=== PATIENT | female | born 1965 | race Caucasian/White ===

== ENCOUNTER → 2021-05-15 14:15 | Outpatient (BNVA) | payer MEDICAID, SELFPAY | PROVIDERS: PCP Family Medicine | DX: R33.9 Retention of urine, unspecified (principal); N31.2 Flaccid neuropathic bladder, not elsewhere classified; E78.5 Hyperlipidemia, unspecified; I10 Essential (primary) hypertension | CPT/HCPCS: 51798; 99212 ==

== ENCOUNTER 2021-11-14 09:40 | Outpatient (REF) | payer MEDICAID, SELFPAY | END 2021-11-14 09:41 | disposition home or self-care (01) | LOC: HO.HOSX 09:40 | PROVIDERS: Visit Provider Orthopaedic Surgery | DX: Z13.89 Encounter for screening for other disorder (principal) ==

== ENCOUNTER → 2021-11-18 09:02 | Outpatient (BNVA) | payer MEDICAID, SELFPAY | PROVIDERS: PCP Family Medicine ==

== ENCOUNTER → 2021-11-25 11:28 | Outpatient (BNVA) | payer MEDICAID, SELFPAY | PROVIDERS: PCP Family Medicine; Visit Provider Surgery Vascular Surgery | DX: I73.9 Peripheral vascular disease, unspecified (principal) | CPT/HCPCS: 99202 ==

== ENCOUNTER 2021-12-11 08:37 | Outpatient (REF) | payer MEDICAID, SELFPAY ==
--- NOTE | ~2021-12-11 | XR_ITS ---
EXAMINATION: XR KNEE AP STANDING VIEW BILATERAL. XR KNEE, BILATERAL. CLINICAL INFORMATION: Bilateral knee pain COMPARISON: None TECHNIQUE: AP standing view both knees. [place] and tunnel views of each knee. FINDINGS: Symmetric mild to moderate tricompartmental osteoarthritis with marginal osteophytes. No significant joint effusion. No acute osseous abnormality. XR/XR knee LT 2V IMPRESSION: Symmetric bilateral mild to moderate tricompartmental osteoarthritis with marginal osteophytes. No acute osseous abnormality.
--- NOTE | ~2021-12-11 | XR_ITS ---
EXAMINATION: XR KNEE AP STANDING VIEW BILATERAL. XR KNEE, BILATERAL. CLINICAL INFORMATION: Bilateral knee pain COMPARISON: None TECHNIQUE: AP standing view both knees. [place] and tunnel views of each knee. FINDINGS: Symmetric mild to moderate tricompartmental osteoarthritis with marginal osteophytes. No significant joint effusion. No acute osseous abnormality. XR/XR knee standing BI IMPRESSION: Symmetric bilateral mild to moderate tricompartmental osteoarthritis with marginal osteophytes. No acute osseous abnormality.
--- NOTE | ~2021-12-11 | XR_ITS ---
EXAMINATION: XR KNEE AP STANDING VIEW BILATERAL. XR KNEE, BILATERAL. CLINICAL INFORMATION: Bilateral knee pain COMPARISON: None TECHNIQUE: AP standing view both knees. [place] and tunnel views of each knee. FINDINGS: Symmetric mild to moderate tricompartmental osteoarthritis with marginal osteophytes. No significant joint effusion. No acute osseous abnormality. XR/XR knee RT 2V IMPRESSION: Symmetric bilateral mild to moderate tricompartmental osteoarthritis with marginal osteophytes. No acute osseous abnormality.
== END 2021-12-11 08:38 | disposition home or self-care (01) ==
LOC: HO.HOSX 08:37
PROVIDERS: Visit Provider Orthopaedic Surgery
DX: M17.11 Unilateral primary osteoarthritis, right knee (principal)
CPT/HCPCS: 20610; 73560; 73565; 99202; J1100

== ENCOUNTER 2022-06-04 13:13 | Outpatient (REF) | payer MEDICAID, SELFPAY ==
--- NOTE | ~2022-06-04 | CT_ITS ---
EXAMINATION: CT CHEST WITHOUT CONTRAST CLINICAL INFORMATION: Follow-up right middle lobe nodules COMPARISON: Previous chest x-ray May 2020 TECHNIQUE: Multidetector volumetric CT imaging of the chest was done. Axial MIP volume rendering provided. Sagittal and coronal reformatted images were obtained. This CT examination was performed using dose optimization techniques as appropriate, variously including the following: *Automated exposure control *Adjustment of mA and/or kV according to patient size (this includes techniques or standardized protocols for targeted exams where dose is matched to indication/reason for exam; i.e. extremities or head) *Use of iterative reconstruction technique DLP: 241 mGy-cm FINDINGS: LUNGS: There is a 2 mm right upper lobe nodule axial image 160 series 7. There is a 3 mm calcified left lower lobe nodule axial image 193 series 7. There is a 3 mm right upper lobe nodule axial image 195 series 7. There is a 4 mm right middle lobe nodule axial image 284 series 7. There is a 3 mm right lower lobe calcified nodule axial image 327 series 7. There is a 3 mm peripheral or subpleural left lower lobe nodule axial image 398 series 7. There is minimal linear scarring or subsegmental atelectasis in the right middle lobe and left upper lobe. No endobronchial or endotracheal lesion. MEDIASTINUM: There is coronary artery calcification. The ascending thoracic aorta is upper normal in size measuring 4 cm. The mediastinum is otherwise normal. PLEURA: There is no pleural effusion. No pleural mass or thickening. AXILLA: No lymphadenopathy. UPPER ABDOMEN: There is diverticulosis of the colon. OSSEOUS STRUCTURES: There are degenerative changes of the spine. CT/CT chest wo con IMPRESSION: Small pulmonary nodules or micronodules, largest measuring 4 mm in the right middle lobe. According to the UPDATED 2017 Fleischner Society recommendations, the advised follow-up imaging for less than 6 mm solid nodule: Low risk, no chest CT follow-up and high risk, optional chest CT follow-up in one year. Coronary artery calcification and upper normal-size ascending thoracic aorta. Fleischner guidelines were followed.
== END 2022-06-04 13:14 | disposition home or self-care (01) ==
LOC: HO.CT 13:13
PROVIDERS: PCP Family Medicine; Visit Provider Family Medicine
DX: R91.1 Solitary pulmonary nodule (principal); I25.10 Atherosclerotic heart disease of native coronary artery without angina pectoris; K57.30 Diverticulosis of large intestine without perforation or abscess without bleeding
CPT/HCPCS: 71250

== ENCOUNTER 2022-09-05 23:59 | Emergency (ER) | payer MEDICAID, SELFPAY ==
[2022-09-06 00:12] VITALS: BP 180/100; BP 189/125; PULSE 80; PULSE 81; RESP 18; TEMP 36.8; O2SAT 94; O2SAT 96; BMI 35.4
[2022-09-06 00:19] VITALS: BP 189/125; PULSE 80; RESP 18; TEMP 36.8; O2SAT 94
--- OUTSIDE RECORDS SUMMARY | 2022-09-06 00:42 | XMS_ITS | Continuity of Care Document ---
:1965 Author Organization [facility] Address [address] [place] [phone]- Care Team Providers Name Role Phone Aliza Paul DO Primary Care Physician [place] [facility] [place] - 02/24/[address] [address]- Encounter Diagnosis Chest pain (Final) - 02/24/21 HTN (hypertension) (Final) - 02/24/21 Bradycardia (Final) - 02/24/21 Discharge Disposition: A-D/C AMA Attending Physician: Florencio Oleary MD Admitting Physician: Florencio Oleary MD Referring Physician: Not on Staff, Referring MD Allergies, Adverse Reactions, Alerts Substance Reaction Severity Status NKA Active Medications amitriptyline 25 mg oral tablet 1 tablet = 25 mg, By Mouth, Daily at bedtime, 0 Refills, Maintenance Start Date: 08/23/13 Status: OrderedFioricet Tablet 2 tablet, By Mouth, Every 4 hours, 0 Refills, Maintenance Start Date: 08/23/13 Status: OrderedFlexeril Tablet Maintenance, 08/23/13 8:12:57 Start Date: 08/23/13 Status: OrderedHydrochlorothiazide By Mouth, Daily, 0 Refills, Maintenance Start Date: 08/23/13 Status: Orderedibuprofen 600 mg oral tablet 1 tablet = 600 mg, By Mouth, 4 times a day, PRN Pain, # 40 tablet, 0 Refills, Maintenance, Tablet Start Date: 09/04/13 Status: OrderedKlonoPIN 1 mg oral tablet 1 tablet = 1 mg, By Mouth, 2 times a day, 0 Refills, Maintenance, 02/24/21 14:18:00 EDT, Tablet, Partial fill upon patient request if the prescription is for a schedule II opioid drug. Start Date: 02/24/21 Status: OrderedLisinopril By Mouth, Daily, 0 Refills, Maintenance Start Date: 08/23/13 Status: OrderedMetoprolol Tartrate 50 mg oral tablet 1 tablet = 50 mg, By Mouth, 2 times a day, # 60 tablet, 0 Refills, Maintenance, Tablet Start Date: 08/23/13 Status: OrderedNorvasc By Mouth, Daily, 0 Refills, Maintenance Start Date: 08/23/13 Status: Orderedoxycodone 5 mg oral tablet 1 tablet = 5 mg, By Mouth, Every 6 hours, PRN for pain, # 10 tablet, 0 Refills, Maintenance, Tablet Start Date: 09/27/13 Status: Orderedoxycodone 5 mg oral tablet 1 tablet = 5 mg, By Mouth, Every 4 hours, PRN for pain, # 12 tablet, 0 Refills, Maintenance, Tablet Start Date: 09/04/13 Status: Orderedoxycodone 5 mg oral tablet 1 tablet = 5 mg, By Mouth, Every 4 hours, PRN for pain, # 30 tablet, 0 Refills, Maintenance, Tablet Start Date: 09/18/13 Status: Orderedoxycodone 5 mg oral tablet 2 tablet = 10 mg, By Mouth, Every 4 hours, PRN for pain, # 15 tablet, 0 Refills, Maintenance, Tablet Start Date: 09/08/13 Status: OrderedPaxil 20 mg oral tablet 1 tablet = 20 mg, By Mouth, Daily, 0 Refills, Maintenance Start Date: 08/23/13 Status: OrderedProtonix 40 mg oral delayed release tablet 1 tablet = 40 mg, By Mouth, Daily, 0 Refills, Maintenance Start Date: 08/23/13 Status: OrderedTopamax 50 mg oral tablet 1 tablet = 50 mg, By Mouth, Daily at bedtime, # 30 tablet, 4 Refills, Maintenance, 10/08/17 12:16:01, starting for migraine Start Date: 10/08/17 Stop Date: 03/07/18 Status: OrderedTrazodone By Mouth, 0 Refills, Maintenance Start Date: 08/23/13 Status: OrderedVicodin 5 mg-300 mg oral tablet 1 tablet, By Mouth, Every 6 hours, 0 Refills, Maintenance Start Date: 08/23/13 Status: OrderedVistaril Capsule 0 Refills, Maintenance Start Date: 08/23/13 Status: OrderedXanax Tablet By Mouth, 3 times a day, PRN, Maintenance, as needed for anxiety, 08/23/13 8:38:27 Start Date: 08/23/13 Status: OrderedZofran 4 mg oral tablet 1 tablet = 4 mg, By Mouth, Every 8 hours, # 9 tablet, 0 Refills, Maintenance, 12/26/20 16:59:00 EST,Tablet, [facility], Partial fill upon patient request if the prescription is for a schedule II opioid drug. Start Date: 12/26/20 Stop Date: 12/29/20 Status: Ordered Problem List Condition Effective Dates Status Health Status Informant Anxiety(Confirmed) Active Cerebrovascular disease(Confirmed) Active Gastroesophageal reflux Active disease(Confirmed) Heart disease(Confirmed) Active Hyperlipidemia(Confirmed) Active Hypertensive disorder(Confirmed) Active Migraines(Confirmed) Active Results Radiology Reports Exam Date Time Procedure Performing Provider Status 02/24/21 7:46 AM Chest Portable E[place]barger Anette; Auth (Ike ified) Notes:(Chest Portable) Reason For Exam: Shortness of BreathRESULT: Chest Portable Chest Portable Hx of Present Illness: Pt c o chest tightness, 7 10 with elevated HR at home 220 110 pt reports she hasn't slept in 3 days, caring for her sick mother for last 6 months. Pt also reports headache; Reason: Shortness of Breath; Clinical Question(s): CHF COMPARISON: Chest radiograph dated 09/04/2013 FINDINGS: LINES AND TUBES: None. LUNGS AND PLEURA: Hazy opacities at the right lung base. No pleural effusion. No pneumothorax. HEART, MEDIASTINUM AND CHARO: Heart is at the upper limits of normal for size. Normal upper mediastinal and hilar contour. BONES AND SOFT TISSUES: No acute abnormality. IMPRESSION: Hazy right basilar airspace disease, atelectasis versus pneumonia. WSN: [id number] Ordering Physician: Timoteo Taveras Dictated By: Mona Ponce MD Dictated Date/Time: 02/24/21 8:01 am Reviewed By: Mona Ponce MD Signed By: Mona Ponce MD Signed Date/Time: 02/24/21 8:01 am Transcribed By: SHERON Transcribed Date/Time: 02/24/21 8:01 am Vital Signs Most recent to oldest 1 2 3 [Reference Range]: Height 160 cm (02/24/21 1:49 PM) Weight 93.2 kg (02/24/21 1:49 PM) Oxygen Saturation [94-100 %] 99 % 97 % 97 % (02/24/21 1:55 PM) (02/24/21 11:30 AM) (02/24/21 9: 44 AM) Pulse Rate [55-90 bpm] 49 bpm 49 bpm 50 bpm *L* *L* *L* (02/24/21 1:55 PM) (02/24/21 11:30 AM) (02/24/21 9: 44 AM) Body Mass Index [18.5-24.99] 36.41 *>HHI* (02/24/21 1:49 PM) Blood Pressure [90-138/55-84 186/87 mm Hg 149/76 mm Hg 149 /74 mm Hg mm Hg] *H* *H* *H* (02/24/21 1:55 PM) (02/24/21 11:30 AM) (02/24/21 9: 44 AM) Respiratory Rate [16-30 18 br/min 18 br/min 14 br/mi n br/min] (02/24/21 1:55 PM) (02/24/21 11:30 AM) *L* (02/24/21 9:44 AM ) Temperature [96.8-100.4 DegF] 98.2 DegF 97.8 DegF (02/24/21 1:55 PM) (02/24/21 6:58 AM) Mode of Delivery (Oxygen) Room air Room air Room a ir (02/24/21 1:55 PM) (02/24/21 11:30 AM) (02/24/21 9: 44 AM) Blood pressure sites Arm, right Arm, right Arm, right (02/24/21 1:55 PM) (02/24/21 11:30 AM) (02/24/21 9: 44 AM) Temperature Route Oral Oral (02/24/21 1:55 PM) (02/24/21 6:58 AM) Dry Weight 93.2 kg (02/24/21 1:49 PM) Weight Obtained Via Bed scale (02/24/21 1:49 PM) Social History Social History Type Response Smoking Status Never (less than 100 in life time) entered on: 12/26/20 Sex
--- OUTSIDE RECORDS SUMMARY | 2022-09-06 00:42 | XMS_ITS | Continuity of Care Document ---
:1965 Author Organization [facility] Address [address] [place] [phone]- Care Team Providers Name Role Phone Aliza Paul DO Primary Care Physician Encounter [facility] [place] Date(s): 09/20/21 - 09/20/[address] [address]- Discharge Disposition: A-D/C Walkout Attending Physician: Not on Staff, Attending MD Admitting Physician: Not on Staff, Admitting MD Referring Physician: Not on Staff, Referring [...] tablet, 0 Refills, Maintenance, 12/26/20 16:59:00 EST,Tablet, [facility], Partial fill upon patient request if the prescription is for a schedule II opioid drug. Start Date: 12/26/20 Stop Date: 12/29/20 Status: Ordered Problem List Condition Effective Dates Status Health Status Informant Anxiety(Confirmed) Active Cerebrovascular disease(Confirmed) Active Gastroesophageal reflux Active disease(Confirmed) Heart disease(Confirmed) Active Hyperlipidemia(Confirmed) Active Hypertensive disorder(Confirmed) Active Migraines(Confirmed) Active Vital Signs Most recent to oldest [Reference Range]: 1 Oxygen Saturation [94-100 %] 95 % (09/20/21 10:37 AM) Pulse Rate [55-90 bpm] 57 bpm (09/20/21 10:37 AM) Blood Pressure [90-138/55-84 mm Hg] 157/82 mm Hg *H* (09/20/21 10:37 AM) Respiratory Rate [16-30 br/min] 20 br/min (09/20/21 10:37 AM) Temperature [96.8-100.4 DegF] 98.5 DegF (09/20/21 10:37 AM) Mode of Delivery (Oxygen) Room air (09/20/21 10:37 AM) Blood pressure sites Arm, left (09/20/21 10:37 AM) Temperature Route Oral (09/20/21 10:37 AM) Social History Social History Type Response Smoking Status Never (less than 100 in life time) entered on: 12/26/20 Sex
--- OUTSIDE RECORDS SUMMARY | 2022-09-06 00:42 | XMS_ITS | Continuity of Care Document ---
:1965 Author Organization [facility] Address [address] [place] [phone]- Care Team Providers Name Role Phone Aliza Paul DO Primary Care Physician [place] [facility] [place] - 05/03/[address] [address]- Encounter Diagnosis Submandibular gland inflammation (Final) - 05/03/22 Discharge Disposition: A-D/C Home Attending Physician: Madeline Greene MD Admitting Physician: Madeline Greene MD Referring Physician: Not on Staff, Referring MD Allergies, Adverse Reactions, Alerts No Known Allergies Medications amitriptyline 25 mg oral tablet 1 tablet = 25 mg, By Mouth, Daily at bedtime, 0 Refills, Maintenance Start Date: 08/23/13 Status: OrderedAugmentin 875 mg-125 mg oral tablet 1 tablet, By Mouth, Every 12 hours, for 7 days, # 14 tablet, 0 Refills, Acute 05/10/22 20:12:00 EDT,05/03/22 20:12:00 EDT, Tablet, [facility], Partial fill upon patient request ifthe prescription is for a schedule II opioid drug... Start Date: 05/03/22 Stop Date: 05/10/22 Status: OrderedFioricet Tablet 2 tablet, By Mouth, [...] Refills, Maintenance, Tablet Start Date: 09/04/13 Status: Orderedibuprofen 600 mg oral tablet 600 mg, 1, tablet, By Mouth, 3 times a day, # 90 tablet, Refills 0, Tot. Refills 0, Acute 05/04/23 21:12:00 EDT, 05/03/22 21:11:00 EDT, Route to Pharmacy Electronically, [facility], Partial fill upon patient request if the prescri... Start Date: 05/03/22 Stop Date: 05/04/23 Status: OrderedKlonoPIN 1 mg oral tablet 1 [...] Refills, Maintenance, Tablet Start Date: 09/08/13 Status: OrderedoxyCODONE 5 mg oral tablet 5 mg, Tablet, By Mouth, Every 6 hours, PRN for Pain , Moderate, Routine, 05/03/22 18:54:00 EDT Start Date: 05/03/22 Stop Date: 05/10/22 Status: OrderedPaxil 20 mg oral tablet 1 [...] tablet, 0 Refills, Maintenance, 12/26/20 16:59:00 EST,Tablet, [facility], Partial fill upon patient request if the prescription is for a schedule II opioid drug. Start Date: 12/26/20 Stop Date: 12/29/20 Status: Ordered Problem List Condition Effective Dates Status Health Status Informant Anxiety(Confirmed) Active Cerebrovascular disease(Confirmed) Active Gastroesophageal reflux Active disease(Confirmed) Heart disease(Confirmed) Active Hyperlipidemia(Confirmed) Active Hypertensive disorder(Confirmed) Active Migraines(Confirmed) Active Obese class II(Confirmed) Active Vital Signs Most recent to oldest 1 2 3 [Reference Range]: Oxygen Saturation [94-100 %] 96 % 96 % 94 % (05/03/22 9:17 PM) (05/03/22 8:46 PM) (05/03/22 7:0 0 PM) Pulse Rate [55-90 bpm] 54 bpm 45 bpm 56 bpm *L* *L* (05/03/22 7:00 PM ) (05/03/22 9:17 PM) (05/03/22 8:46 PM) Blood Pressure [90-138/55-84 mm 136/99 mm Hg 140/101 mm Hg 148/96 mm Hg Hg] (05/03/22 9:17 PM) *H* *H* (05/03/22 8:46 PM) (05/03/22 7:00 PM) Respiratory Rate [16-30 br/min] 18 br/min 20 br/min 18 br/min (05/03/22 9:17 PM) (05/03/22 8:46 PM) (05/03/22 7:5 8 PM) Temperature [96.8-100.4 DegF] 97.9 DegF 97.8 DegF 98 .9 DegF (05/03/22 8:46 PM) (05/03/22 7:00 PM) (05/03/22 3:4 8 PM) Mode of Delivery (Oxygen) Room air Room air Room a ir (05/03/22 9:17 PM) (05/03/22 8:46 PM) (05/03/22 7:0 0 PM) Blood pressure sites Arm, right Arm, right Arm, left (05/03/22 9:17 PM) (05/03/22 8:46 PM) (05/03/22 7:0 0 PM) Temperature Route Oral Oral Oral (05/03/22 8:46 PM) (05/03/22 7:00 PM) (05/03/22 3:4 8 PM) Social History Social History Type Response Smoking Status Never (less than 100 in life time) entered on: 12/26/20 Sex
--- OUTSIDE RECORDS SUMMARY | 2022-09-06 00:42 | XMS_ITS | Continuity of Care Document ---
:1965 Author Organization [facility] Address [address] [place] [phone]- Care Team Providers Name Role Phone Aliza Paul DO Primary Care Physician En[place] [facility] [place] Date(s): 12/26/20 - 12/26/[address] [address]- Encounter Diagnosis Diverticulitis (Final) - 12/26/20 Discharge Disposition: A-D/C Home Attending Physician: Mary Jackman MD Admitting Physician: Mary Jackman MD Referring Physician: Not on Staff, Referring MD Allergies, Adverse Reactions, Alerts Substance Reaction Severity Status NKA Active Medications amitriptyline 25 mg oral tablet 1 tablet = 25 mg, By Mouth, Daily at bedtime, 0 Refills, Maintenance Start Date: 08/23/13 Status: OrderedCipro 500 mg oral tablet 1 tablet = 500 mg, By Mouth, Every 12 hours, for 10 days, after completed dialysis, # 20 tablet, 0 Refills, Acute 01/05/21 16:58:00 EST, 12/26/20 16:58:00 EST, Tablet, [facility], Partial fill upon patient request if the prescript... Start Date: 12/26/20 Stop Date: 01/05/21 Status: OrderedFioricet Tablet 2 tablet, By Mouth, Every 4 hours, 0 Refills, Maintenance Start Date: 08/23/13 Status: OrderedFlagyl 500 mg oral tablet 1 tablet = 500 mg, By Mouth, 3 times a day, for 10 days, # 30 tablet, 0 Refills, Acute 01/05/21 16:58:00 EST, 12/26/20 16:58:00 EST, Tablet, [facility], Partial fill upon patient request if the prescription is for a schedule II op... Start Date: 12/26/20 Stop Date: 01/05/21 Status: OrderedFlexeril Tablet Maintenance, 08/23/13 8:12:57 Start Date: 08/23/13 Status: OrderedHydrochlorothiazide By Mouth, Daily, 0 Refills, Maintenance Start Date: 08/23/13 Status: Orderedibuprofen 600 mg oral tablet 1 tablet = 600 mg, By Mouth, 4 times a day, PRN Pain, # 40 tablet, 0 Refills, Maintenance, Tablet Start Date: 09/04/13 Status: OrderedLisinopril By Mouth, Daily, 0 Refills, [...] tablet, 0 Refills, Maintenance, 12/26/20 16:59:00 EST,Tablet, [facility], Partial fill upon patient request if [...] 3 [Reference Range]: Oxygen Saturation [94-100 %] 97 % 96 % 95 % (12/26/20 5:11 PM) (12/26/20 4:21 PM) (12/26/20 1:3 8 PM) Pulse Rate [55-90 bpm] 53 bpm 56 bpm 53 bpm *L* (12/26/20 4:21 PM) *L* (12/26/20 5:11 PM) (12/26/20 1:38 PM) Blood Pressure [90-138/55-84 mm 166/85 mm Hg 145/95 mm Hg 131/66 mm Hg Hg] *H* *H* (12/26/20 1:38 PM ) (12/26/20 5:11 PM) (12/26/20 4:21 PM) Respiratory Rate [16-30 br/min] 21 br/min 15 br/min 19 br/min (12/26/20 5:11 PM) *L* (12/26/20 1:38 PM) (12/26/20 4:21 PM) Temperature [96.8-100.4 DegF] 98.1 DegF (12/26/20 9:25 AM) Liters per Minute 0 L/min (12/26/20 8:58 AM) Mode of Delivery (Oxygen) Room air Room air Room a ir (12/26/20 5:11 PM) (12/26/20 4:21 PM) (12/26/20 1:3 8 PM) Blood pressure sites Arm, left Arm, left Arm, left (12/26/20 5:11 PM) (12/26/20 4:21 PM) (12/26/20 1:3 8 PM) Temperature Route Oral (12/26/20 9:25 AM) Social History Social History Type Response Smoking Status Never (less than 100 in life time) entered on: 12/26/20 Sex
--- NOTE | 2022-09-06 00:44 | ED.ANIMALBIT ---
HPI - Animal Bite General Chief Complaint: Animal Bite Stated Complaint: Dog Bite Time Seen by Provider: 09/06/22 00:32 Source: patient Mode of arrival: EMS Limitations: no limitations History of Present Illness MD complaint: animal bite Onset (ago): hour(s) (2) Animal: dog Description of animal: household pet (neighbors dog) and immunizations unknown Mechanism: bite and scratch Location - Extremities: right: arm and bilateral: thigh Pain description: burning Context: unprovoked Associated symptoms: none Related Data Patient tetanus UTD: No Home Medications Medication Instructions Recorded Confirmed acetaminophen 650 mg 650 mg PO Q12H PRN 11/18/21 tablet,extended release (Pain Relief (acetaminophen)) albuterol sulfate 90 mcg/actuation 2 puff inhalation Q4-6H PRN 11/18/21 aerosol inhaler (ProAir HFA) amlodipine 10 mg tablet 10 mg PO DAILY 11/18/21 atorvastatin 10 mg tablet 10 mg PO BEDTIME 11/18/21 clonazepam 1 mg tablet 1 mg PO BID 11/18/21 diclofenac sodium 1 % topical gel 2 g topical BID 11/18/21 fluticasone propionate 50 2 spray intranasal DAILY 11/18/21 mcg/actuation nasal spray,suspension gabapentin 600 mg tablet 600 mg PO TID 11/18/21 ibuprofen 800 mg tablet 800 mg PO DAILY PRN pain 11/18/21 lidocaine 5 % topical patch 0 patch topical 11/18/21 (Lidoderm) lisinopril 40 mg tablet 40 mg PO DAILY 11/18/21 loratadine 10 mg tablet 10 mg PO DAILY 11/18/21 metoprolol tartrate 100 mg tablet 100 mg PO BID 11/18/21 oxycodone-acetaminophen 5 mg-325 1 tab PO Q8H PRN severe pain 11/18/21 mg tablet venlafaxine 150 mg 150 mg PO DAILY 11/18/21 capsule,extended release 24 hr Previous Rx's Medication Instructions Recorded ascorbate calcium (vitamin C) 500 500 mg PO DAILY 90 days #90 tabs 12/03/21 mg tablet methenamine hippurate 1 gram tablet 1 g PO DAILY 90 days #90 tabs 12/03/21 ciprofloxacin HCl 500 mg tablet 500 mg PO BID 7 days #14 tabs 01/06/22 (Cipro) amitriptyline 25 mg tablet 25 mg PO BEDTIME #30 tabs 01/07/22 amoxicillin 875 mg-potassium 1 tab PO BID #14 tabs 09/06/22 clavulanate 125 mg tablet Allergies Allergy/AdvReac Type Severity Reaction Status Date / Time No Known Allergies Allergy Verified 11/25/21 11:29 Review of Systems Review of Systems: Constitutional : No Fever, No Chills, Cardiovascular : No Chest Pain, No SOB Respiratory : No Dyspnea Gastrointestinal : No abdominal pain Musculoskeletal : No Joint Swelling Skin : No rash, positive skin laceration Neuro : No Weakness, No Numbness Psych : No SI/HI PMFSH Past Medical History Attestation statement: The following information was validated with the patient. Medical History GERD (gastroesophageal reflux disease) H/O urinary retention HTN (hypertension) Hyperlipidemia Hypotonic bladder Knee derangement Patellofemoral arthrosis PFO (patent foramen ovale) Surgical History History of surgery Social History Social History Alcohol intake: current Alcohol intake frequency: a few times a month Alcohol type: beer Patient Tobacco Use Status: Never used Tobacco Use of substances other than those prescribed or required for medical reasons: No Advance Directives: No Physical Exam ED Vital Signs: Vital Signs - 24 hr 09/06/22 00:12 09/06/22 00:19 Temperature 98.2 F 98.2 F Pulse Rate 80 80 Respiratory Rate 18 18 Blood Pressure 189/125 H 189/125 H Pulse Oximetry 94 94 Oxygen Delivery Method Room Air Room Air BMI result Body Mass Index 35.4 Appearance: Alert. Oriented X3. No acute distress. Eyes: Pupils equal, round and reactive to light. ENT: Pharynx normal. Neck: Normal inspection. Neck supple. CVS: Normal heart rate and rhythm. Pulses normal. Respiratory: No respiratory distress. Breath sounds normal. Abdomen: Soft and nontender. Skin: Skin warm and dry. Normal skin color. Normal skin turgor. Extremities: No lower extremity edema. bilateral upper thighs superficial scratches noted R under arm upper L shaped superficial abrasion noted and contusion - skin superficially broken no deep wounds noted Neuro: Oriented X 3. No motor deficit. No sensory deficit. MDM - Animal Bite MDM Narrative Medical decision making narrative: 56 yo female hx of PAD, asthma, HLD here with c/o dog scratches to thighs and dog bite superficial to R under arm - no crepitus or FB felt no pain to bone doubt fracture, NV intact, will need augmentin, tetanus, rabies Procedures Procedure Narrative Procedure Narrative: injected immunoglobulin near wound sterile prep tolerated well rest of immunoglobulin at distal site Discharge Plan Discharge Clinical Impression: Dog bite Qualifiers: Encounter type: initial encounter Qualified Code(s): W54.0XXA - Bitten by dog, initial encounter Patient Disposition: Home, Self-Care Instructions: Animal Bite (ED), Rabies (ED) Additional Instructions: return to ED for any worsening symptoms or concerns take all medications return for your rabies shot short stay surgery day 3, 7, 14 monitor for redness, fevers, yellow drainage keep wounds clean and dry Prescriptions: New amoxicillin-pot clavulanate 875-125 mg tablet 1 tab PO BID Qty: 14 0RF No Action methenamine hippurate 1 gram tablet 1 g PO DAILY 90 Days Qty: 90 2RF ascorbate calcium (vitamin C) 500 mg tablet 500 mg PO DAILY 90 Days Qty: 90 2RF ciprofloxacin HCl [Cipro] 500 mg tablet 500 mg PO BID 7 Days Qty: 14 0RF amitriptyline 25 mg tablet 25 mg PO BEDTIME Qty: 30 0RF loratadine 10 mg tablet 10 mg PO DAILY venlafaxine 150 mg capsule,extended release 24hr 150 mg PO DAILY albuterol sulfate [ProAir HFA] 90 mcg/actuation HFA aerosol inhaler 2 puff inhalation Q4-6H PRN oxycodone-acetaminophen 5-325 mg tablet 1 tab PO Q8H PRN (Reason: severe pain) clonazepam 1 mg tablet 1 mg PO BID ibuprofen 800 mg tablet 800 mg PO DAILY PRN (Reason: pain) acetaminophen [Pain Relief (acetaminophen)] 650 mg tablet extended release 650 mg PO Q12H PRN lidocaine [Lidoderm] 5 % adhesive patch,medicated 0 patch topical diclofenac sodium 1 % gel 2 g topical BID fluticasone propionate 50 mcg/actuation spray,suspension 2 spray intranasal DAILY metoprolol tartrate 100 mg tablet 100 mg PO BID gabapentin 600 mg tablet 600 mg PO TID lisinopril 40 mg tablet 40 mg PO DAILY amlodipine 10 mg tablet 10 mg PO DAILY atorvastatin 10 mg tablet 10 mg PO BEDTIME
[2022-09-06] MEDS: Amoxicillin/Potassium Clav 875 MG TABLET PO (00:55)
[2022-09-06] MEDS: LORazepam 1 MG TABLET PO (00:55)
[2022-09-06] MEDS: Diphth,Pertus(ACell),Tet Adult 0.5 ML SYRINGE IM (00:57)
[2022-09-06] MEDS: Rabies Vaccine (PCEC)/PF 1 ML VIAL IM (01:00)
[2022-09-06] MEDS: Rabies Immune Globulin/PF 900 UNIT/3 ML VIAL 1814.36 UNIT IM (01:03)
[2022-09-06] MEDS: Ibuprofen 600 MG TABLET PO (01:26)
--- NOTE | 2022-09-06 01:44 | PC.NURSE ---
Pt. d/c with information and dates to return to [facility] on 09/09/22, 09/13/22, and 09/20/22. Pt. verbalizes understanding
--- NOTE | 2022-09-06 02:20 | PC.NURSE ---
Domestic Animal Bite Reporting Form faxed to the [facility] [place] at [phone] on 09/06/22 at 02:22
--- NOTE | 2022-09-06 02:24 | PC.NURSE ---
Fax confirmation received at 02:22 - confirmation is in pt.'s chart
--- NOTE | 2022-09-06 02:24 | PC.NURSE ---
The Rabies Vaccine Order Set sent to both Medical Day Stay and Pharmacy on 09/06/22 at 02:27
== END 2022-09-06 02:30 | disposition home or self-care (01) ==
PROVIDERS: Emergency Provider Emergency Medicine; PCP Family Medicine
DX: S41.151A Open bite of right upper arm, initial encounter (principal); S71.152A Open bite, left thigh, initial encounter; S71.151A Open bite, right thigh, initial encounter; W54.0XXA Bitten by dog, initial encounter; I10 Essential (primary) hypertension; E78.5 Hyperlipidemia, unspecified; Z20.3 Contact with and (suspected) exposure to rabies; Y93.9 Activity, unspecified; Y92.009 Unspecified place in unspecified non-institutional (private) residence as the place of occurrence of the external cause; Y99.9 Unspecified external cause status
CPT/HCPCS: 90375; 90471; 90472; 90675; 90715; 96372; 99284

== ENCOUNTER 2022-09-09 13:27 | Outpatient (REF) | payer MEDICAID, SELFPAY | END 2022-09-09 13:28 | disposition home or self-care (01) | LOC: HO.MDS 13:27 | PROVIDERS: Visit Provider Emergency Medicine | DX: Z29.14 Encounter for prophylactic rabies immune globulin (principal); S40.871D Other superficial bite of right upper arm, subsequent encounter; S70.312D Abrasion, left thigh, subsequent encounter; S70.311D Abrasion, right thigh, subsequent encounter; W54.0XXD Bitten by dog, subsequent encounter; Z20.3 Contact with and (suspected) exposure to rabies | CPT/HCPCS: 90471; 90675 ==

== ENCOUNTER 2022-09-14 12:46 | Outpatient (REF) | payer MEDICAID, SELFPAY | END 2022-09-14 12:47 | disposition home or self-care (01) | LOC: HO.MDS 12:46 | PROVIDERS: PCP Family Medicine; Visit Provider Emergency Medicine | DX: Z29.14 Encounter for prophylactic rabies immune globulin (principal); S41.151D Open bite of right upper arm, subsequent encounter; S71.152D Open bite, left thigh, subsequent encounter; S71.151D Open bite, right thigh, subsequent encounter; W54.0XXD Bitten by dog, subsequent encounter; Z20.3 Contact with and (suspected) exposure to rabies | CPT/HCPCS: 90471; 90675 ==

== ENCOUNTER 2022-10-27 05:57 | Emergency (ER) | payer MEDICAID, SELFPAY ==
--- NOTE | ~2022-10-27 | XR_ITS ---
EXAMINATION: XR SHOULDER, RIGHT CLINICAL INFORMATION: Shoulder fracture 10/14/2022 COMPARISON: None TECHNIQUE: Three views of the right shoulder. FINDINGS: There is a right humeral neck fracture. Slight medial displacement of the distal fragment by approximately 0.4 cm. Mild fragmentation at the greater tuberosity without significant displacement. The glenohumeral joint remains aligned. The acromioclavicular joint is intact.. Hazy opacity at the right lung base. Visualized ribs are intact. XR/XR shoulder RT min 2V IMPRESSION: Right humeral neck fracture with slight medial displacement of the distal fragment. Mild fragmentation at the greater tuberosity without significant displacement of this fragment..
--- NOTE | ~2022-10-27 | XR_ITS ---
EXAMINATION: XR CHEST CLINICAL INFORMATION: Chest pain COMPARISON: 05/13/2020 TECHNIQUE: Frontal view of the chest was obtained. FINDINGS: Cardiac leads overlie the chest. The lungs are well expanded. Hazy opacity at the right lung base. No pleural effusion or pneumothorax. The cardiomediastinal silhouette is within normal limits. Proximal right humeral fracture which will be further evaluated on the subsequent shoulder radiograph. XR/XR chest 1V IMPRESSION: 1. Hazy right basilar opacity could represent atelectasis or pneumonia. 2. Proximal right humeral fracture will be further evaluated on the subsequent shoulder radiograph.
--- NOTE | 2022-10-27 06:01 | ECG_ITS ---
Test Reason : CHEST /SHOLDER PAIN Blood Pressure : / mmHG Vent. Rate : 044 BPM Atrial Rate : 044 BPM P-R Int : 164 ms QRS Dur : 080 ms QT Int : 480 ms P-R-T Axes : 047 -28 -09 degrees QTc Int : 410 ms Marked sinus bradycardia Abnormal ECG When compared with ECG of 13-MAY-2020 17:13, Inverted T waves have replaced nonspecific T wave abnormality in Inferior leads Nonspecific T wave abnormality now evident in Anterior leads Referred By: Generic ED Physician Electronically Signed By:Prasanna Schmidt
[2022-10-27 06:32] VITALS: BP 124/70; PULSE 46; RESP 16; TEMP 36.6; O2SAT 97; BMI 35.4
[2022-10-27 06:32] LABS: Basophils Absolute Auto 0.1 X10*3/uL (0.0-0.2); Basophils Percent Auto 0.7 % (0-2); Eosinophils Absolute Auto 0.5 X10*3/uL (0.0-0.4); Eosinophils Percent Auto 5.5 % (0-4); Hemoglobin 11.5 g/dl (12.0-16.0); Imm Gran Abs Auto 0.03 X10*3/uL (0.00-0.03); Imm Gran Pct Auto 0.3 % (0.0-0.4); Lymphocytes Absolute Auto 2.5 X10*3/uL (1.2-4.9); Lymphocytes Percent Auto 28.1 % (20-40); MANUAL DIFF FLAG NO; Mean Corpuscular HGB Conc 32.9 g/dl (31.0-35.0); Mean Corpuscular Hemoglobin 28.7 pg (27.0-33.0); Mean Corpuscular Volume 87.3 fL (80.0-98.0); Mean Platelet Volume 9.6 fL (9.4-12.3); Monocytes Absolute Auto 0.6 X10*3/uL (0.1-1.2); Neutrophils Absolute Auto 5.2 x10*3/uL (2.0-8.3); Neutrophils Percent Auto 58.4 % (45-73); Platelet Count 339 X10*3/uL (160-400); Red Blood Count 4.01 X10*6/uL (4.20-5.50); Red Cell Distribution Width 12.8 % (11.0-16.0); White Blood Count 8.9 X10*3/uL (4.8-10.8)
[2022-10-27 06:46] LABS: Anion Gap 12 (12-20); Blood Urea Nitrogen 23 mg/dL (9-16); Calcium 9.3 mg/dL (8.4-10.2); Carbon Dioxide 22 mmol/L (22-29); Chloride 110 mmol/L (96-108); Creatinine Clr Calc Pharmacy 79.9; Estimated Glomerular Filt Rate > 60; Glucose Random 100 mg/dL (60-115); Potassium 4.3 mmol/L (3.3-5.1); Sodium 140 mmol/L (135-145)
--- NOTE | 2022-10-27 06:55 | ED_ITS ---
HPI - Chest Pain General Chief Complaint: Chest Pain Stated Complaint: Chest tightness/shoulder pain Time Seen by Provider: 10/27/22 06:54 Source: patient Mode of arrival: EMS Limitations: no limitations History of Present Illness HPI narrative: 57-year-old female who presents emergency department for evaluation of right shoulder pain and chest pain. The patient states that she fell on 10/14/2022 (13 days prior to evaluation) and was seen at [facility]. She states she was diagnosed with a right shoulder fracture. She has a hypotonic bladder and straight caths herself but was unable to continue to do this with the shoulder fracture therefore a Quinonez catheter was placed. She states she was als o diagnosed with urinary tract infection. She was sent to a [facility] facility and was Christine but states that she was unable states the facility since she states there was some mice at the facility and this triggered her anxiety and she left after 1 day. She believes that she finished her antibiotic treatment for her urinary tract infection. She states she was given a very limited supply of morphine for her pain which helped but she ran out of this medication. She has been taking ibuprofen 400 mg twice a day and Tylenol 1000 mg twice a day with no relief for pain. She states this morning her pain was greater than 10/10 so she called an ambulance to be brought to the emergency d [facility] for evaluation. She has been wearing her sling. She states that which got in the ambulance it triggered her anxiety and she developed a heaviness in her chest which she states was 10/10. She points to her mid sternum when asked to localize the pain. Patient states that she has been having difficulty caring for herself at home secondary to her shoulder fracture pain MD complaint: chest heaviness Onset (ago): minute(s) (30) Timing of current episode: constant Prior episodes: Yes Onset: other (Well pain placed on the ambulance stretcher) Pain location: substernal Pain radiation: none Severity: severe Pain scale (0-10): 10 Quality: heaviness Relieving factors: nothing Exacerbating factors: nothing Context: other (Anxiety) Associated symptoms: nausea Treatment prior to arrival: none Related Data Home Medications Medication Instructions Recorded Confirmed acetaminophen 650 mg 650 mg PO Q12H PRN 11/18/21 tablet,extended release (Pain Relief (acetaminophen)) albuterol sulfate 90 mcg/actuation 2 puff inhalation Q4-6H PRN 11/18/21 aerosol inhaler (ProAir HFA) amlodipine 10 mg tablet 10 mg PO DAILY 11/18/21 atorvastatin 10 mg tablet 10 mg PO BEDTIME 11/18/21 clonazepam 1 mg tablet 1 mg PO BID 11/18/21 diclofenac sodium 1 % topical gel 2 g topical BID 11/18/21 fluticasone propionate 50 2 spray intranasal DAILY 11/18/21 mcg/actuation nasal spray,suspension gabapentin 600 mg tablet 600 mg PO TID 11/18/21 ibuprofen 800 mg tablet 800 mg PO DAILY PRN pain 11/18/21 lidocaine 5 % topical patch 0 patch topical 11/18/21 (Lidoderm) lisinopril 40 mg tablet 40 mg PO DAILY 11/18/21 loratadine 10 mg tablet 10 mg PO DAILY 11/18/21 metoprolol tartrate 100 mg tablet 100 mg PO BID 11/18/21 oxycodone-acetaminophen 5 mg-325 1 tab PO Q8H PRN severe pain 11/18/21 mg tablet venlafaxine 150 mg 150 mg PO DAILY 11/18/21 capsule,extended release 24 hr Previous Rx's Medication Instructions Recorded ascorbate calcium (vitamin C) 500 500 mg PO DAILY 90 days #90 tabs 12/03/21 mg tablet methenamine hippurate 1 gram tablet 1 g PO DAILY 90 days #90 tabs 12/03/21 ciprofloxacin HCl 500 mg tablet 500 mg PO BID 7 days #14 tabs 01/06/22 (Cipro) amitriptyline 25 mg tablet 25 mg PO BEDTIME #30 tabs 01/07/22 amoxicillin 875 mg-potassium 1 tab PO BID #14 tabs 09/06/22 clavulanate 125 mg tablet Allergies Allergy/AdvReac Type Severity Reaction Status Date / Time No Known Allergies Allergy Verified 11/25/21 11:29 Review of Systems Review of Systems: Yes all other systems are reviewed and are negative [facility] Past Medical History [facility] Narrative: Social history: She lives at home alone. She denies tobacco use. She rarely drinks alcohol. She states she smokes marijuana once a week. Medical History GERD (gastroesophageal reflux disease) H/O urinary retention HTN (hypertension) Hyperlipidemia Hypotonic bladder Knee derangement Patellofemoral arthrosis PFO (patent foramen ovale) Surgical History History of surgery Social History Social History Alcohol intake: current Alcohol intake frequency: a few times a month Alcohol type: beer Patient Tobacco Use Status: Never used Tobacco Advance Directives: No Advance Directives Information Provided: Yes Physical Exam Vital Signs: Vital Signs: Last Vital Signs Temp 97.9 F 10/27/22 15:54 Pulse 48 L 10/27/22 15:54 Resp 20 10/27/22 15:54 BP 134/80 10/27/22 15:54 Pulse Ox 97 10/27/22 15:54 O2 Del Method 10/27/22 15:54 BMI result Body Mass Index 35.4 Const: Other: Awake, alert, female patient, she appears unkempt, she is anxious, she is cooperative and answers all questions appropriately, she has an elevated BMI of 35.4. HEENT: Head: Yes normal to inspection, Yes normocephalic and Yes atraumatic Ears: external ears normal General nose exam: Normal external nose present Face and sinus: Yes normal facial exam Mouth: Normal oral and palatal mucosa present Throat: Yes posterior oropharynx normal Eyes: General: appearance normal, both eyes and all related structures Pupils: Equal, round and reactive pupils present Neck: Neck: Yes normal visual inspection, Yes no lymphadenopathy, Yes trachea midline and Yes supple Chest: Chest palpation & inspection: tenderness sternum Resp: Effort & Inspection: normal respiratory effort and able to speak in complete sentences Auscultation: clear to auscultation bilaterally Cardio: Rate: regular rate Rhythm: regular rhythm Heart sounds: S1 normal heart sound present, S2 normal heart sound present and no murmurs GI: Inspection: Yes normal to inspection Palpation (GI): Soft to palpation, nontender and no guarding Auscultation: normal bowel sounds : General: Yes no CVA tenderness Back/Spine/Pelvis: Back: no CVA tenderness Skin: General skin exam: no rashes or lesions noted Neuro: Cranial nerves: Yes CN's II-XII intact bilaterally and Yes Equal, round and reactive pupils present Cognition (Neuro): normal cognition Motor exam (neuro): Other motor observations present (Normal except for inability to move her right shoulder secondary to fractur) Extrem: Other: The patient's right arm is in a sling, she has tenderness palpation over her proximal humerus/shoulder, she has limited range of motion of the shoulder secondary to pain. She has good peripheral pulses, normal capillary refill and normal sensation. Psych: Appearance: grossly normal Speech and movement: Normal speech and movement present Affect: normal affect Attitude: cooperative Course Course Course Narrative: 57-year-old female who presents emergency department for evaluation pain in her right shoulder, she reports a shoulder fracture status post fall on 10/14/2022 (13 days prior). She was initially seen at [facility], also diagnosed with urinary tract infection and sent to [facility] facility but she left after 1 day secondary to anxiety. Patient has hypotonic bladder and has not been able to straight cath herself secondary to her shoulder fracture therefore a Quinonez catheter was placed to [facility]. Patient called an ambulance today for severe pain in her right shoulder. When she was placed on the ambulance gurney she developed chest heaviness, she believes is secondary to her anxiety. Vital signs were unremarkable except for a low pulse of 46 . Patient does have significant tenderness palpation of her right shoulder and her right upper extremities neurovascular intact. She also tenderness palpation of her sternum. Did order laboratory evaluation to include CBC, CMP, troponin, UA, COVID-19, flu, RSV. An EKG, One-view chest x-ray and right shoulder x-rays will be obtained. The patient's Quinonez catheter will be changed in will send a urinalysis a new Quinonez catheter. 1709: Laboratory evaluation revealed mild anemia with an H&H of 11.5 and 35.0, BMP was normal. Troponin was detectable but not elevated. Urinalysis revealed 1+ protein, 1+ blood, negative nitrates trace leukocyte esterase. Microscopic revealed 11-20 RBCs, 6-10 WBCs, 0-2 squamous cells, no bacteria seen. Urine tox screen was positive for opiates, barbiturates, cocaine and marijuana. Patient has had similar positive urinalysis in the past. Radiology evaluation: Chest x-ray radiology reading hazy right basilar opacity could represent atelectasis versus pneumonia. On my review this time I suspect that it is atelectasis. Right shoulder x-ray radiology reading: Right humeral neck fracture with slight medial displacement of the distal fragment. Mild fragmentation at the greater tuberosity without significant displacement of this fragment. I agree with this interpretation The patient was treated with treated with Ativan 1 mg orally and morphine 4 mg IV. She got a 2nd dose of these 2 medications with improvement of her pain. Patient was evaluated by case management and physical therapy. At this time the patient does not want to go to [facility] facility but will be discharged home with visiting nurse assistance. Given her positive urine tox screen, I did not think that sending this patient home with an opiate prescription would be prudent given her potential for misuse of prescribed opiates. Medications Administered Discontinued Medications Generic Name Dose Route Start Last Admin Trade Name Freq PRN Reason Stop Dose Admin Lorazepam 1 mg 10/27/22 07:10 10/27/22 08:17 Lorazepam 1 Mg Tablet PO 10/27/22 07:11 1 mg ONCE STA Administration Lorazepam 1 mg 10/27/22 13:32 10/27/22 13:42 Lorazepam 1 Mg Tablet PO 10/27/22 13:33 1 mg ONCE ONE Administration Morphine Sulfate 4 mg 10/27/22 07:10 10/27/22 08:17 Morphine Sulfate 4 Mg/Ml Cartridge IVPUSH 10/27/22 07:11 4 mg ONCE STA Administration Protocol Morphine Sulfate 4 mg 10/27/22 13:32 10/27/22 13:43 Morphine Sulfate 4 Mg/Ml Cartridge IM 10/27/22 13:33 4 mg ONCE ONE Administration Protocol Medical Decision Making Differential Diagnosis Differential Diagnoses: The differential diagnosis associated with the presentation includes (STEMI, non-STEMI, musculoskeletal pain, anxiety, pneumonia. Differential for right shoulder includes musculoskeletal pain, pain secondary to rupture, ischemic limb) Lab Data MDM Lab Attestation statement: I reviewed the patient's lab results. Result Diagrams: 10/27/22 06:25 10/27/22 06:25 Labs: Lab Results 10/27/22 10/27/22 10/27/22 Range/Units 06:25 06:25 06:25 WBC 8.9 (4.8-10.8) X10*3/uL RBC 4.01 L (4.20-5.50) X10*6/uL Hgb 11.5 L (12.0-16.0) g/dl Hct 35.0 L (37.0-47.0) % MCV 87.3 (80.0-98.0) fL MCH 28.7 (27.0-33.0) pg MCHC 32.9 (31.0-35.0) g/dl RDW 12.8 (11.0-16.0) % Plt Count 339 (160-400) X10*3/uL MPV 9.6 (9.4-12.3) fL Immature Gran % (Auto) 0.3 (0.0-0.4) % Neut % (Auto) 58.4 (45-73) % Lymph % (Auto) 28.1 (20-40) % Harper % (Auto) 7.0 (2-11) % Eos % (Auto) 5.5 H (0-4) % Baso % (Auto) 0.7 (0-2) % Lymph # (Auto) 2.5 (1.2-4.9) X10*3/uL Harper # (Auto) 0.6 (0.1-1.2) X10*3/uL Eos # (Auto) 0.5 H (0.0-0.4) X10*3/uL Baso # (Auto) 0.1 (0.0-0.2) X10*3/uL Abs Immat Gran (auto) 0.03 (0.00-0.03) X10*3/uL Absolute Neuts (auto) 5.2 (2.0-8.3) x10*3/uL Absolute Nucleated RBC 0.000 (0.0-0.012) X10*3/uL Nucleated RBC % (auto) 0.0 (0.0-0.2) /100WBC Sodium 140 (135-145) mmol/L Potassium 4.3 (3.3-5.1) mmol/L Chloride 110 H (96-108) mmol/L Carbon Dioxide 22 (22-29) mmol/L Anion Gap 12 (12-20) BUN 23 H (9-16) mg/dL Creatinine 0.83 (0.5-1.4) mg/dL Estim Creat Clear Calc 79.9 Estimated GFR > 60 Random Glucose 100 (60-115) mg/dL Calcium 9.3 (8.4-10.2) mg/dL Troponin I High Sens 4.0 (<3.5-17.0) ng/L Urine Color Urine Appearance Urine pH (5.0-9.0) Ur Specific Jber (1.005-1.025) Urine Protein (Neg-Trace) mg/dL Urine Glucose (UA) (Negative) mg/dL Urine Ketones (Negative) mg/dL Urine Blood (Negative) Urine Nitrite (Negative) Ur Leukocyte Esterase (Negative) Urine RBC (0-2) /HPF Urine WBC (0-5) /HPF Ur Squamous Epith Cells (0-2) /HPF Urine Bacteria (None Seen) Hyaline Casts (0-2) /LPF Urine Opiates Screen (Not Detect) Urine Fentanyl Screen (Not Detect) Ur Barbiturates Screen (Not Detect) Ur Phencyclidine Scrn (Not Detect) Ur Amphetamines Screen (Not Detect) U Benzodiazepines Scrn (Not Detect) Urine Cocaine Screen (Not Detect) U Marijuana (THC) Screen (Not Detect) Influenza Type A (PCR) (Negative) Influenza Type B (PCR) (Negative) RSV RNA Qual (PCR) (Negative) SARS-CoV-2 RNA (RT-PCR) (Negative) 10/27/22 10/27/22 10/27/22 Range/Units 07:52 11:08 11:08 WBC (4.8-10.8) X10*3/uL RBC (4.20-5.50) X10*6/uL Hgb (12.0-16.0) g/dl Hct (37.0-47.0) % MCV (80.0-98.0) fL MCH (27.0-33.0) pg MCHC (31.0-35.0) g/dl RDW (11.0-16.0) % Plt Count (160-400) X10*3/uL MPV (9.4-12.3) fL Immature Gran % (Auto) (0.0-0.4) % Neut % (Auto) (45-73) % Lymph % (Auto) (20-40) % Harper % (Auto) (2-11) % Eos % (Auto) (0-4) % Baso % (Auto) (0-2) % Lymph # (Auto) (1.2-4.9) X10*3/uL Harper # (Auto) (0.1-1.2) X10*3/uL Eos # (Auto) (0.0-0.4) X10*3/uL Baso # (Auto) (0.0-0.2) X10*3/uL Abs Immat Gran (auto) (0.00-0.03) X10*3/uL Absolute Neuts (auto) (2.0-8.3) x10*3/uL Absolute Nucleated RBC (0.0-0.012) X10*3/uL Nucleated RBC % (auto) (0.0-0.2) /100WBC Sodium (135-145) mmol/L Potassium (3.3-5.1) mmol/L Chloride (96-108) mmol/L Carbon Dioxide (22-29) mmol/L Anion Gap (12-20) BUN (9-16) mg/dL Creatinine (0.5-1.4) mg/dL Estim Creat Clear Calc Estimated GFR Random Glucose (60-115) mg/dL Calcium (8.4-10.2) mg/dL Troponin I High Sens (<3.5-17.0) ng/L Urine Color Yellow Urine Appearance Clear Urine pH 5.5 (5.0-9.0) Ur Specific Jber 1.025 (1.005-1.025) Urine Protein 30 (1+) H (Neg-Trace) mg/dL Urine Glucose (UA) Negative (Negative) mg/dL Urine Ketones Negative (Negative) mg/dL Urine Blood Small (1+) H (Negative) Urine Nitrite Negative (Negative) Ur Leukocyte Esterase Trace H (Negative) Urine RBC 11-20 H (0-2) /HPF Urine WBC 6-10 H (0-5) /HPF Ur Squamous Epith Cells 0-2 (0-2) /HPF Urine Bacteria None Seen (None Seen) Hyaline Casts 0-2 (0-2) /LPF Urine Opiates Screen POSITIVE H (Not Detect) Urine Fentanyl Screen Not Detected (Not Detect) Ur Barbiturates Screen POSITIVE H (Not Detect) Ur Phencyclidine Scrn Not Detected (Not Detect) Ur Amphetamines Screen Not Detected (Not Detect) U Benzodiazepines Scrn Not Detected (Not Detect) Urine Cocaine Screen POSITIVE H (Not Detect) U Marijuana (THC) Screen POSITIVE H (Not Detect) Influenza Type A (PCR) NEGATIVE (Negative) Influenza Type B (PCR) NEGATIVE (Negative) RSV RNA Qual (PCR) NEGATIVE (Negative) SARS-CoV-2 RNA (RT-PCR) NEGATIVE (Negative) Independent Interpretation I performed an independent interpretation of an: EKG Interpretation: My interpretation of the EKG done and 06:05 hours is as follows sinus bradycardia rate 44, normal IL interval, normal QRS duration, normal QTC interval, no ST segment elevation, no ST segment depression, poor R-wave progression V1 through V3 compared to EKG dated he is 05/13/2022 is unchanged. Discharge Plan Discharge Clinical Impression: Closed fracture of proximal end of right humerus, Chest pain, Anxiety Patient Disposition: Home, Self-Care Instructions: Arm Fracture in Adults (ED) Additional Instructions: The x-ray of your right shoulder did confirm that you broke your proximal humerus. Wear the sling for 2 weeks. Follow-up with the orthopedic doctors recommended to you from [facility]. Take ibuprofen 200 mg pills, 3 pills every 6 hours as needed for pain. Take Tylenol (acetaminophen) 500 mg pills, 2 pills every 4 to 6 hours as needed for pain. We are arranging home visiting nurse services for you. Follow-up with your doctor in 2 days. Please return to the emergency department if your symptoms get worse or if you develop any symptoms that are concerning to you. Prescriptions: No Action methenamine hippurate 1 gram tablet 1 g PO DAILY 90 Days Qty: 90 2RF ascorbate calcium (vitamin C) 500 mg tablet 500 mg PO DAILY 90 Days Qty: 90 2RF ciprofloxacin HCl [Cipro] 500 mg tablet 500 mg PO BID 7 Days Qty: 14 0RF amitriptyline 25 mg tablet 25 mg PO BEDTIME Qty: 30 0RF amoxicillin-pot clavulanate 875-125 mg tablet 1 tab PO BID Qty: 14 0RF loratadine 10 mg tablet 10 mg PO DAILY venlafaxine 150 mg capsule,extended release 24hr 150 mg PO DAILY albuterol sulfate [ProAir HFA] 90 mcg/actuation HFA aerosol inhaler 2 puff inhalation Q4-6H PRN oxycodone-acetaminophen 5-325 mg tablet 1 tab PO Q8H PRN (Reason: severe pain) clonazepam 1 mg tablet 1 mg PO BID ibuprofen 800 mg tablet 800 mg PO DAILY PRN (Reason: pain) acetaminophen [Pain Relief (acetaminophen)] 650 mg tablet extended release 650 mg PO Q12H PRN lidocaine [Lidoderm] 5 % adhesive patch,medicated 0 patch topical diclofenac sodium 1 % gel 2 g topical BID fluticasone propionate 50 mcg/actuation spray,suspension 2 spray intranasal DAILY metoprolol tartrate 100 mg tablet 100 mg PO BID gabapentin 600 mg tablet 600 mg PO TID lisinopril 40 mg tablet 40 mg PO DAILY amlodipine 10 mg tablet 10 mg PO DAILY atorvastatin 10 mg tablet 10 mg PO BEDTIME
[2022-10-27 07:55] VITALS: BP 120/70; PULSE 43; RESP 17; O2SAT 96
[2022-10-27] MEDS: Morphine Sulfate 4 MG/ML CARTRIDGE IVPUSH (08:17)
[2022-10-27] MEDS: LORazepam 1 MG TABLET PO ×2 (08:17→13:42)
[2022-10-27 08:59] VITALS: PULSE 44; O2SAT 96
[2022-10-27 09:05] LABS: Influenza A PCR NEGATIVE (Negative); Influenza B PCR NEGATIVE (Negative); Resp Syncy Virus RNA Qual PCR NEGATIVE (Negative); SARS COV2 PCR INHOUSE NEGATIVE (Negative)
--- NOTE | 2022-10-27 09:12 | PC.NURSE ---
PT HAS RIZZO IN PLACE DUE TO BLADDER RETENTIONS WHICH IS LEAKING AND FROM HOME RIZZO REPLACED WITH 16 F CLEAR YELLOW URINE, TOLERATED WELL. PT ALSO GIVEN A NEW SLING FOR RIGHT SHOULDER FX.
[2022-10-27 11:16] LABS: Appearance Urine Clear; Color Urine Yellow; Glucose Urine UA Negative (Negative); Leukocyte Esterase Urine Trace (Negative); Nitrite Urine Negative (Negative); PH 5.5 (5.0-9.0); Specific Gravity - Urine 1.025 (1.005-1.025); UMIC TRIGGER UACC YES; Urine Blood Small (1+) (Negative); Urine Ketones Negative (Negative); Urine Protein 30 (1+) mg/dL (Neg-Trace)
[2022-10-27 11:19] LABS: Bacteria Urine None Seen (None Seen); Hyaline Casts Urine 0-2 /LPF (0-2); Squamous Epithelial Cell Urine 0-2 /HPF (0-2); UACC Culture Trigger YES
[2022-10-27 11:28] LABS: Amphetamine Screen Urine Not Detected (Not Detect); Barbiturates, Urine POSITIVE (Not Detect); Benzodiazepines Screen Urine Not Detected (Not Detect); Cannabinoid Screen Urine POSITIVE (Not Detect); Cocaine Screen Urine POSITIVE (Not Detect); Fentanyl, urine Not Detected (Not Detect); Opiate Screen Urine POSITIVE (Not Detect); Phencyclidine Screen Urine Not Detected (Not Detect)
[2022-10-27 11:47] VITALS: BP 134/80; PULSE 40; RESP 14; TEMP 36.6; O2SAT 93
[2022-10-27] MEDS: Morphine Sulfate 4 MG/ML CARTRIDGE IM (13:43)
--- NOTE | 2022-10-27 15:23 | MHC.CM.ED ---
Addendum entered by Twila Murdock 10/28/22 09:58: Patient accepted by [facility]. Original Note: Received case management consult from Dr Kam. Patient came to the ER due to shoulder pain and chest tightness. Patient was discharged from [facility] on 10/20 to [facility] due to a left shoulder fracture. Patient left [facility] on 10/21. She states there were mice in the building. The liaison for [facility] tells T/W the patient couldn't stay because she needed to be closer to home . Physical therapy eval completed. Acute rehab is recommended. Referrals made to all 3 local acute rehabs. None of the facilities are able to offer a bed because patient doesn't have a qualifying diagnosis per [facility]. Referral broadcasted in [facility] within 50 miles. T/W explained to patient placement will be difficult and may be anywhere in the [facility]. Patient wants to go home with [facility]. Address and telephone number verified. Referral broadcasted in [employer] to see which agency can accept patient. Luis SOTO booked for 530pm. Med [facility] with chart. Patient, Briseyda BAI and Dr Kam aware. Continue to monitor for d/c needs.
[2022-10-27 15:54] VITALS: BP 134/80; PULSE 48; RESP 20; TEMP 36.6; O2SAT 97
[2022-10-27] MEDS: oxyCODONE HCl Immed Release 5 MG TABLET PO (17:35)
== END 2022-10-27 17:49 | disposition home or self-care (01) ==
PROVIDERS: Emergency Provider Emergency Medicine Emergency Medical Services
DX: S42.211A Unspecified displaced fracture of surgical neck of right humerus, initial encounter for closed fracture (principal); X58.XXXA Exposure to other specified factors, initial encounter; R07.9 Chest pain, unspecified; F41.9 Anxiety disorder, unspecified; N31.2 Flaccid neuropathic bladder, not elsewhere classified; I10 Essential (primary) hypertension; E78.5 Hyperlipidemia, unspecified; Z20.822 Contact with and (suspected) exposure to COVID-19; Z46.6 Encounter for fitting and adjustment of urinary device; Y93.9 Activity, unspecified; Y92.9 Unspecified place or not applicable; Y99.9 Unspecified external cause status; Z79.899 Other long term (current) drug therapy; Z79.02 Long term (current) use of antithrombotics/antiplatelets
CPT/HCPCS: 0241U; 36415; 51702; 71045; 73030; 80048; 80307; 81001; 84484; 85025; 87086; 93005; 96372; 96374; 97161; 99284; J2270

== ENCOUNTER 2022-11-03 12:56 | Emergency (ER) | payer MEDICAID, SELFPAY ==
--- NOTE | ~2022-11-03 | CT_ITS ---
EXAMINATION: CT ABDOMEN AND PELVIS WITHOUT CONTRAST CLINICAL INFORMATION: Lower abdominal pain COMPARISON: Previous CT of the abdomen and pelvis February 2017 TECHNIQUE: Multidetector volumetric imaging was performed from the superior aspect of the liver through the pubic symphysis. Sagittal and coronal reformatted images were obtained on the technologist's workstation. This CT examination was performed using dose optimization techniques as appropriate, variously including the following: *Automated exposure control *Adjustment of mA and/or kV according to patient size (this includes techniques or standardized protocols for targeted exams where dose is matched to indication/reason for exam; i.e. extremities or head) *Use of iterative reconstruction technique DLP: 1061 mGy-cm FINDINGS: LUNG BASES: Subsegmental atelectasis in the lingula and right middle lobe. Coronary artery and mitral annular calcification. LIVER, GALLBLADDER, AND BILIARY TREE: The liver is normal in size, shape, and attenuation. No focal hepatic lesion or biliary ductal dilatation is present. The gallbladder is unremarkable with no evidence of radiopaque gallstones, gallbladder wall thickening, or obvious pericholecystic inflammatory changes. PANCREAS: Unremarkable. SPLEEN: Unremarkable. ADRENAL GLANDS: Unremarkable. KIDNEYS AND URETERS: The kidneys are normal in size, shape, and attenuation. No hydronephrosis, hydroureter, or calculi seen. No perinephric stranding. BLADDER: Quinonez catheter in the bladder. Bladder is empty. GASTROINTESTINAL TRACT: Diverticulosis of the colon. Long segment wall thickening of the sigmoid colon and rectum and stranding of the surrounding fat suggestive of diverticulitis versus colitis/proctitis. No evidence of obstruction, perforation or abscess. Appendix not seen and may been removed. ABDOMINAL WALL: Previous low midline ventral hernia repair with mesh. Hernia at the superior margin of the mesh containing fat. LYMPH NODES: Normal. VASCULAR: Atherosclerotic disease. No aneurysm. PELVIC VISCERA: Unremarkable. OSSEOUS STRUCTURES: Spondylolisthesis and spondylolisthesis at L5-S1. Multilevel degenerative spondylosis, degenerative disc disease and facet arthritis. CT/CT abdomen pelvis wo IV con IMPRESSION: Severe diverticulosis. Diverticulitis or colitis/proctitis of the sigmoid colon and rectum. Evidence of previous low ventral hernia repair with mesh. Small hernia containing fat at the superior margin of the mesh. Fleischner guidelines were followed.
[2022-11-03 13:06] VITALS: BP 170/118; PULSE 70; O2SAT 97
[2022-11-03 13:10] VITALS: BP 212/105; PULSE 77; RESP 18; TEMP 36.6; O2SAT 98; BMI 38.9
--- NOTE | 2022-11-03 14:11 | PC.NURSE ---
cath is now draining well. placement is correct. aware.
[2022-11-03] MEDS: amLODIPine Besylate 10 MG TABLET PO (14:16)
--- NOTE | 2022-11-03 14:31 | ED_ITS ---
HPI - Abdominal Pain General Chief Complaint: Abdominal Pain Stated Complaint: abd pain, cath issue,no urine x2days per EMS Time Seen by Provider: 11/03/22 13:15 Source: patient Mode of arrival: EMS History of Present Illness HPI narrative: 57-year-old female arrives via EMS for concerns regarding abdominal pain with multiple episodes of nonbloody diarrhea for the past couple of days but as per EMS patient reports no urine for 2 days however was seen yesterday at [facility]. Patient endorses that she did have the catheter replaced yesterday at [facility] and typically she self caths but has been able to perform this due to recent fracture of the right upper extremity. She denies any fever or chills and denies any shortness of breath/chest pain. Related Data Home Medications Medication Instructions Recorded Confirmed acetaminophen 650 mg 650 mg PO Q12H PRN 11/18/21 tablet,extended release (Pain Relief (acetaminophen)) albuterol sulfate 90 mcg/actuation 2 puff inhalation Q4-6H PRN 11/18/21 aerosol inhaler (ProAir HFA) amlodipine 10 mg tablet 10 mg PO DAILY 11/18/21 atorvastatin 10 mg tablet 10 mg PO BEDTIME 11/18/21 clonazepam 1 mg tablet 1 mg PO BID 11/18/21 diclofenac sodium 1 % topical gel 2 g topical BID 11/18/21 fluticasone propionate 50 2 spray intranasal DAILY 11/18/21 mcg/actuation nasal spray,suspension gabapentin 600 mg tablet 600 mg PO TID 11/18/21 ibuprofen 800 mg tablet 800 mg PO DAILY PRN pain 11/18/21 lidocaine 5 % topical patch 0 patch topical 11/18/21 (Lidoderm) lisinopril 40 mg tablet 40 mg PO DAILY 11/18/21 loratadine 10 mg tablet 10 mg PO DAILY 11/18/21 metoprolol tartrate 100 mg tablet 100 mg PO BID 11/18/21 oxycodone-acetaminophen 5 mg-325 1 tab PO Q8H PRN severe pain 11/18/21 mg tablet venlafaxine 150 mg 150 mg PO DAILY 11/18/21 capsule,extended release 24 hr Previous Rx's Medication Instructions Recorded ascorbate calcium (vitamin C) 500 500 mg PO DAILY 90 days #90 tabs 12/03/21 mg tablet methenamine hippurate 1 gram tablet 1 g PO DAILY 90 days #90 tabs 12/03/21 ciprofloxacin HCl 500 mg tablet 500 mg PO BID 7 days #14 tabs 01/06/22 (Cipro) amitriptyline 25 mg tablet 25 mg PO BEDTIME #30 tabs 01/07/22 amoxicillin 875 mg-potassium 1 tab PO BID #14 tabs 09/06/22 clavulanate 125 mg tablet amoxicillin 875 mg-potassium 1 tab PO Q12H 10 days #20 tabs 11/03/22 clavulanate 125 mg tablet Allergies Allergy/AdvReac Type Severity Reaction Status Date / Time No Known Allergies Allergy Verified 11/25/21 11:29 Review of Systems Review of Systems Pertinent positives and negatives as stated in HPI. PMFSH Past Medical History Source: nursing notes reviewed Medical History GERD (gastroesophageal reflux disease) H/O urinary retention HTN (hypertension) Hyperlipidemia Hypotonic bladder Knee derangement Patellofemoral arthrosis PFO (patent foramen ovale) Surgical History History of surgery Social History Social History Alcohol intake: current Alcohol intake frequency: a few times a month Alcohol type: beer Patient Tobacco Use Status: Never used Tobacco Advance Directives: No Advance Directives Information Provided: No Physical Exam ED Vital Signs: Vital Signs - 24 hr 11/03/22 13:10 11/03/22 16:29 Temperature 97.8 F Pulse Rate 77 69 Respiratory Rate 18 18 Blood Pressure 212/105 H 158/86 H Pulse Oximetry 98 Oxygen Delivery Method Room Air BMI result Body Mass Index 38.9 VITAL SIGNS: Reviewed. GENERAL: Well developed, well nourished, in no acute distress. HEAD: Normocephalic/atraumatic EYES: PERRLA, EOMI EARS: Ext canals without abnormality OROPHARYNX: no oral lesions noted, posterior pharynx clear LUNGS: Normal breath sounds. No adventitious sounds or accessory muscle use. S pO2<98> CARDIOVASCULAR: Regular rate and rhythm without noted murmurs, no JVD or lower extremity edema. ABDOMEN: Soft, mild tenderness to palpation, non-distended with bowel sounds. : Quinonez catheter appears to be clear yellow urine. MUSCULOSKELETAL: No tenderness, deformities, or effusions noted on gross inspection. EXTREMITIES: No cyanosis, clubbing or edema. SKIN: Inspection of the skin reveals no rashes NEUROLOGIC: Alert and oriented x 4. Strength and sensation to light touch were grossly intact x 4. Course Course Course Narrative: I reviewed the documentation from [facility] extensively yesterday, she had a urinalysis which was not significant for UTI and on imaging studies there was evidence of a right humeral head fracture that was minimally displaced and she was provided with a new arm sling which she stated she had left as per [facility] documentation. [facility] had patient evaluated by social Work and physical therapy and she did pass her physical therapy evaluation and referred to their financial counselor who will be helping her to upgrade her insurance. As per [facility] ocumentation she has a follow-up appointment with the orthopedic doctor on Wednesday regarding her right humeral fracture. On review of all investigations patient has a small leukocytosis but is afebrile and CT scan demonstrates possible mild diverticulitis/colitis. Patient will be started on antibiotics for diverticulitis which she has a history of diverticulitis she will be discharged home. Medical Decision Making Medical Decision Making [facility] Narrative: 57-year-old female was brought in by EMS for complaints of abdominal pain and catheter problems. On initial bladder scan it appears she had 700 cc of urine, but then Quinonez catheter is noted to be flowing freely with yellow urine that is clear in nature. Patient is afebrile and do not suspect UTI. Patient reports that she has had a history of diverticulitis and given her complaints of abdominal pain and diarrhea it will pursue CT scan of the abdomen pelvis. Patient also endorses that she was seen at [facility] yesterday and that she was diagnosed with a right shoulder injury approximately 3 weeks ago (according to [facility] records) and that she was supposed to be set up with [facility] but she has yet to get any assistance. Patient does inform that she walks at baseline. Differential Diagnosis Differential Diagnoses: The differential diagnosis associated with the pres entation includes Urinary tract infection, diverticulitis, SBO Lab Data [facility] Lab Attestation statement: I reviewed the patient's lab results. Please see course Section for discussion Result Diagrams: 11/03/22 15:41 11/03/22 15:41 Labs: Lab Results 11/03/22 11/03/22 Range/Units 15:41 15:41 WBC 11.4 H (4.8-10.8) X10*3/uL RBC 4.31 (4.20-5.50) X10*6/uL Hgb 12.3 (12.0-16.0) g/dl Hct 37.6 (37.0-47.0) % MCV 87.2 (80.0-98.0) fL MCH 28.5 (27.0-33.0) pg MCHC 32.7 (31.0-35.0) g/dl RDW 13.0 (11.0-16.0) % Plt Count 362 (160-400) X10*3/uL MPV 9.6 (9.4-12.3) fL Immature Gran % (Auto) 0.3 (0.0-0.4) % Neut % (Auto) 75.2 H (45-73) % Lymph % (Auto) 13.9 L (20-40) % [place] % (Auto) 6.4 (2-11) % Eos % (Auto) 3.7 (0-4) % Baso % (Auto) 0.5 (0-2) % Lymph # (Auto) 1.6 (1.2-4.9) X10*3/uL [place] # (Auto) 0.7 (0.1-1.2) X10*3/uL Eos # (Auto) 0.4 (0.0-0.4) X10*3/uL Baso # (Auto) 0.1 (0.0-0.2) X10*3/uL Abs Immat Gran (auto) 0.03 (0.00-0.03) X10*3/uL Absolute Neuts (auto) 8.5 H (2.0-8.3) x10*3/uL Absolute Nucleated RBC 0.000 (0.0-0.012) X10*3/uL Nucleated RBC % (auto) 0.0 (0.0-0.2) /100WBC Sodium 141 (135-145) mmol/L Potassium 4.3 (3.3-5.1) mmol/L Chloride 110 H (96-108) mmol/L Carbon Dioxide 22 (22-29) mmol/L Anion Gap 13 (12-20) BUN 15 (9-16) mg/dL Creatinine 0.77 (0.5-1.4) mg/dL Estim Creat Clear Calc 90.8 Estimated GFR > 60 Random Glucose 125 H (60-115) mg/dL Calcium 9.4 (8.4-10.2) mg/dL Total Bilirubin 0.4 (0.0-1.0) mg/dL AST 13 (5-31) U/L ALT 14 (0-31) U/L Alkaline Phosphatase 92 (39-117) U/L Total Protein 6.8 (6.5-8.0) g/dL Albumin 3.9 (3.5-5.0) g/dL Radiology Impression Radiologist Impression: My interpretation is in agreement with radiology impression of imaging studies. External Record Review External record reviewed: Outside ED record Prescription Management I considered prescription management with: Antibiotic Chronic Conditions Patient?s care impacted by: Hypertension Social Determinants Patient?s care significantly limited by Social Determinants of Health including: Other Social Determinant of Health Medications Administered Discontinued Medications Generic Name Dose Route Start Last Admin Trade Name Freq PRN Reason Stop Dose Admin Amlodipine Besylate 10 mg 11/03/22 14:08 11/03/22 14:16 Amlodipine Besylate 10 Mg Tablet PO 11/03/22 14:09 10 mg ONCE ONE Administration Protocol Lorazepam 0.5 mg 11/03/22 15:30 11/03/22 15:39 Lorazepam 0.5 Mg Tablet PO 11/03/22 15:31 0.5 mg ONCE ONE Administration Critical Care Time Critical Care Time Critical Care Time: Yes Total Critical Care Time: 30 Attestation: I personally attest to this time spent taking care of the patient. Discharge Plan Discharge Clinical Impression: Diverticulitis, Malfunction of Quinonez catheter, Closed right humeral fracture Patient Disposition: Home, Self-Care Instructions: Diverticulitis (ED), Arm Fracture in Adults (ED), Quinonez Catheter Placement and Care (ED), How to Use a Sling (ED), Diverticulitis Diet (ED), Nutrition Tips for Relief of Diarrhea (ED) Additional Instructions: 1. Resume all home medications as prescribed. I highly recommend [id number] Imodium as needed for further diarrhea control. 2. Complete the entire course of antibiotics as prescribed. 3. You will need to follow-up with your primary care provider and should call the office tomorrow morning to set up an appointment for re-evaluation and further outpatient management. In addition, they may be able to help you out with visiting nurse services. Return to the ER for worsening symptoms. Prescriptions: New amoxicillin-pot clavulanate 875-125 mg tablet 1 tab PO Q12H 10 Days Qty: 20 0RF No Action methenamine hippurate 1 gram tablet 1 g PO DAILY 90 Days Qty: 90 2RF ascorbate calcium (vitamin C) 500 mg tablet 500 mg PO DAILY 90 Days Qty: 90 2RF ciprofloxacin HCl [Cipro] 500 mg tablet 500 mg PO BID 7 Days Qty: 14 0RF amitriptyline 25 mg tablet 25 mg PO BEDTIME Qty: 30 0RF amoxicillin-pot clavulanate 875-125 mg tablet 1 tab PO BID Qty: 14 0RF loratadine 10 mg tablet 10 mg PO DAILY venlafaxine 150 mg capsule,extended release 24hr 150 mg PO DAILY albuterol sulfate [ProAir HFA] 90 mcg/actuation HFA aerosol inhaler 2 puff inhalation Q4-6H PRN oxycodone-acetaminophen 5-325 mg tablet 1 tab PO Q8H PRN (Reason: severe pain) clonazepam 1 mg tablet 1 mg PO BID ibuprofen 800 mg tablet 800 mg PO DAILY PRN (Reason: pain) acetaminophen [Pain Relief (acetaminophen)] 650 mg tablet extended release 650 mg PO Q12H PRN lidocaine [Lidoderm] 5 % adhesive patch,medicated 0 patch topical diclofenac sodium 1 % gel 2 g topical BID fluticasone propionate 50 mcg/actuation spray,suspension 2 spray intranasal DAILY metoprolol tartrate 100 mg tablet 100 mg PO BID gabapentin 600 mg tablet 600 mg PO TID lisinopril 40 mg tablet 40 mg PO DAILY amlodipine 10 mg tablet 10 mg PO DAILY atorvastatin 10 mg tablet 10 mg PO BEDTIME Referrals: Aliza Paul DO [Primary Care Provider] -
[2022-11-03] MEDS: LORazepam 0.5 MG TABLET PO (15:39)
[2022-11-03 15:44] LABS: MANUAL DIFF FLAG NO
[2022-11-03 15:47] LABS: Basophils Absolute Auto 0.1 X10*3/uL (0.0-0.2); Basophils Percent Auto 0.5 % (0-2); Eosinophils Absolute Auto 0.4 X10*3/uL (0.0-0.4); Eosinophils Percent Auto 3.7 % (0-4); Hematocrit 37.6 % (37.0-47.0); Hemoglobin 12.3 g/dl (12.0-16.0); Imm Gran Abs Auto 0.03 X10*3/uL (0.00-0.03); Imm Gran Pct Auto 0.3 % (0.0-0.4); Lymphocytes Absolute Auto 1.6 X10*3/uL (1.2-4.9); Lymphocytes Percent Auto 13.9 % (20-40); Mean Corpuscular HGB Conc 32.7 g/dl (31.0-35.0); Mean Corpuscular Hemoglobin 28.5 pg (27.0-33.0); Mean Corpuscular Volume 87.2 fL (80.0-98.0); Mean Platelet Volume 9.6 fL (9.4-12.3); Monocytes Absolute Auto 0.7 X10*3/uL (0.1-1.2); Monocytes Percent Auto 6.4 % (2-11); Neutrophils Absolute Auto 8.5 x10*3/uL (2.0-8.3); Neutrophils Percent Auto 75.2 % (45-73); Platelet Count 362 X10*3/uL (160-400); Red Blood Count 4.31 X10*6/uL (4.20-5.50); White Blood Count 11.4 X10*3/uL (4.8-10.8)
[2022-11-03 16:07] LABS: Alanine Aminotransferase 14 U/L (0-31); Albumin Level 3.9 g/dL (3.5-5.0); Alkaline Phosphatase 92 U/L (39-117); Anion Gap 13 (12-20); Aspartate Amino Transferase 13 U/L (5-31); Bilirubin Total 0.4 mg/dL (0.0-1.0); Blood Urea Nitrogen 15 mg/dL (9-16); Calcium 9.4 mg/dL (8.4-10.2); Carbon Dioxide 22 mmol/L (22-29); Chloride 110 mmol/L (96-108); Creatinine Clr Calc Pharmacy 90.8; Estimated Glomerular Filt Rate > 60; Glucose Random 125 mg/dL (60-115); Potassium 4.3 mmol/L (3.3-5.1); Sodium 141 mmol/L (135-145); Total Protein 6.8 g/dL (6.5-8.0)
--- NOTE | 2022-11-03 16:22 | PC.NURSE ---
multiple rn attempts to get iv. patel aware.
[2022-11-03 16:29] VITALS: BP 158/86; PULSE 69; RESP 18
[2022-11-03] MEDS: Amoxicillin/Potassium Clav 875 MG TABLET PO (17:29)
[2022-11-03] MEDS: Ibuprofen 400 MG TABLET PO (17:29)
[2022-11-03] MEDS: Acetaminophen 325 MG TABLET 975 MG PO (17:30)
[2022-11-03] MEDS: Diphenoxylate/Atrop 2.5/0.025 TABLET 1 TAB PO (17:47)
--- NOTE | 2022-11-03 18:32 | PC.NURSE ---
multiple attempts to dc pt. pt states she does not have a ride home. pt marci emptied. assisted multiple times to comode. sling applied per request that current one does not fit well. medicated per emar and pt ambulatory around room.
--- NOTE | 2022-11-03 18:40 | PC.NURSE ---
mack george ordering lyft for pt- pt to waiting room to await ride.
== END 2022-11-03 18:39 | disposition home or self-care (01) ==
PROVIDERS: Emergency Provider Student in an Organized Health Care Education/Training Program; PCP Family Medicine
DX: S42.301A Unspecified fracture of shaft of humerus, right arm, initial encounter for closed fracture (principal); K57.32 Diverticulitis of large intestine without perforation or abscess without bleeding; T83.9XXA Unspecified complication of genitourinary prosthetic device, implant and graft, initial encounter; Y73.8 Miscellaneous gastroenterology and urology devices associated with adverse incidents, not elsewhere classified; Y92.9 Unspecified place or not applicable; X58.XXXA Exposure to other specified factors, initial encounter; Y93.9 Activity, unspecified; Y99.9 Unspecified external cause status; Z79.899 Other long term (current) drug therapy
CPT/HCPCS: 36415; 51798; 74176; 80053; 85025; 99284; 99285

== ENCOUNTER 2022-11-09 14:37 | Emergency (ER) | payer MEDICAID, SELFPAY ==
--- NOTE | ~2022-11-09 | XR_ITS ---
EXAMINATION: XR HAND, RIGHT CLINICAL INFORMATION: Right hand pain. History of surgery. COMPARISON: None TECHNIQUE: Limited visualization. Patient has a fracture of the shoulder. 3 views of the hand were obtained. FINDINGS: 2 orthopedic screws in the distal shaft of the fifth metacarpal. Fracture is healed with residual deformity. There is no acute fracture or dislocation. Joint spaces are maintained. There is no soft tissue abnormality. XR/XR hand RT min 3V IMPRESSION: 1. No acute abnormality. 2. Old healed fracture of the fifth metacarpal with orthopedic screws in place.
--- NOTE | ~2022-11-09 | XR_ITS ---
EXAMINATION: XR CHEST CLINICAL INFORMATION: High blood pressure. Dizziness. Chest pain. COMPARISON: Chest x-ray 10/27/2022. CT of the chest 06/04/2022 TECHNIQUE: Frontal view of the chest was obtained. 5:03 PM FINDINGS: Improved aeration of lungs since prior study 10/27/2022. No focal consolidation or acute airspace opacity. Heart size is normal. Cardiac mediastinal contours normal. No pulmonary vascular congestion. No pleural effusion or pneumothorax. Redemonstration of the fracture of the right proximal humerus at the surgical neck with mild displacement. No change position of fracture fragments since prior exam. Multilevel degenerative spondylosis spine. XR/XR chest 1V IMPRESSION: 1. No acute abnormality of chest. 2. Fracture of the right proximal humerus unchanged since 10/27/2022.
--- NOTE | ~2022-11-09 | CT_ITS ---
EXAMINATION: CT head/brain wo IV con CLINICAL INFORMATION: Reason for Exam High blood pressure/dizziness/chest pain COMPARISON: CT head without contrast 05/03/2022 TECHNIQUE: Contiguous axial imaging was performed from the skull base to vertex without intravenous contrast. Sagittal and coronal reformatted images were obtained. This CT examination was performed using dose optimization techniques as appropriate, variously including the following: * Automated exposure control * Adjustment of mA and/or kV according to patient size (this includes techniques or standardized protocols for targeted exams where dose is matched to indication/reason for exam; i.e. extremities or head) Use of iterative reconstruction technique DLP: 683 mGy-cm FINDINGS: No acute osseous or soft tissue abnormality. The mastoid air cells and visualized portions of the paranasal sinuses are well aerated. There is no evidence of acute intracranial hemorrhage or territorial infarction. No abnormal mass effect or midline shift is seen. Dutta to white matter differentiation is well preserved. No extra-axial fluid collections are identified. No hydrocephalus. No significant volume loss. Chronic left centrum semiovale lacunar infarct versus prominent perivascular space. CT/CT head/brain wo IV con IMPRESSION: No acute intracranial abnormality including hemorrhage, mass effect, hydrocephalus, or acute territorial edematous infarction.
[2022-11-09 14:53] VITALS: BP 180/110; PULSE 75; O2SAT 96
--- NOTE | 2022-11-09 16:43 | ED_ITS ---
HPI - General Adult General Chief complaint: General Medical <TIA Caceres - Last Filed: 11/09/22 16:50> Stated complaint: HIGH BP W/DOS SANTOS, 180/110 PER EMS <TIA Caceres - Last Filed: 11/09/22 16:50> Time Seen by Provider: 11/09/22 20:06 <TIA Caceres - Last Filed: 11/09/22 16:50> History of Present Illness HPI narrative: - 57yoF c PMHx of HTN and left humerus fracture c hypotonic bladder who has a covarrubias cath in place receiving OT at home when the occupational therapist took the pt's BP at home and was high at 180/110 and called the ambulance. 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 Reports she didnt take her BP meds this morning but then when the ambulance arrived she took her metoprolol at that time. Patient is still hypertensive. On arrival blood pressure was 191/114 repeat blood pressure was 185/97 pulse rate of 61 patient has not taken her lisinopril yet patient denies any chest no palpitation or shortness of breath <Jordan Chahal MD - Last Filed: 11/10/22 01:36> Related Data Home medications: Home Medications Medication Instructions Recorded Confirmed acetaminophen 650 mg 650 mg PO Q12H PRN 11/18/21 tablet,extended release (Pain Relief (acetaminophen)) albuterol sulfate 90 mcg/actuation 2 puff inhalation Q4-6H PRN 11/18/21 aerosol inhaler (ProAir HFA) amlodipine 10 mg tablet 10 mg PO DAILY 11/18/21 atorvastatin 10 mg tablet 10 mg PO BEDTIME 11/18/21 clonazepam 1 mg tablet 1 mg PO BID 11/18/21 diclofenac sodium 1 % topical gel 2 g topical BID 11/18/21 fluticasone propionate 50 2 spray intranasal DAILY 11/18/21 mcg/actuation nasal spray,suspension gabapentin 600 mg tablet 600 mg PO TID 11/18/21 ibuprofen 800 mg tablet 800 mg PO DAILY PRN pain 11/18/21 lidocaine 5 % topical patch 0 patch topical 11/18/21 (Lidoderm) lisinopril 40 mg tablet 40 mg PO DAILY 11/18/21 loratadine 10 mg tablet 10 mg PO DAILY 11/18/21 metoprolol tartrate 100 mg tablet 100 mg PO BID 11/18/21 oxycodone-acetaminophen 5 mg-325 1 tab PO Q8H PRN severe pain 11/18/21 mg tablet venlafaxine 150 mg 150 mg PO DAILY 11/18/21 capsule,extended release 24 hr Previous Rx's Medication Instructions Recorded ascorbate calcium (vitamin C) 500 500 mg PO DAILY 90 days #90 tabs 12/03/21 mg tablet methenamine hippurate 1 gram tablet 1 g PO DAILY 90 days #90 tabs 12/03/21 ciprofloxacin HCl 500 mg tablet 500 mg PO BID 7 days #14 tabs 01/06/22 (Cipro) amitriptyline 25 mg tablet 25 mg PO BEDTIME #30 tabs 01/07/22 amoxicillin 875 mg-potassium 1 tab PO BID #14 tabs 09/06/22 clavulanate 125 mg tablet amoxicillin 875 mg-potassium 1 tab PO Q12H 10 days #20 tabs 11/03/22 clavulanate 125 mg tablet <TIA Caceres - Last Filed: 11/09/22 16:50> Allergies/adverse reactions: Allergies Allergy/AdvReac Type Severity Reaction Status Date / Time No Known Allergies Allergy Verified 11/25/21 11:29 <TIA Caceres - Last Filed: 11/09/22 16:50> Review of Systems Review of Systems: Yes all other systems are reviewed and are negative <Jordan Chahal MD - Last Filed: 11/10/22 01:36> [facility] Past Medical History Medical History: Medical History GERD (gastroesophageal reflux disease) H/O urinary retention HTN (hypertension) Hyperlipidemia Hypotonic bladder Knee derangement Patellofemoral arthrosis PFO (patent foramen ovale) <TIA Caceres - Last Filed: 11/09/22 16:50> Surgical History: Surgical History History of surgery <TIA Caceres - Last Filed: 11/09/22 16:50> Social History Social History: Social History Alcohol intake: current Alcohol intake frequency: a few times a month Alcohol type: beer Patient Tobacco Use Status: Never used Tobacco Advance Directives: No Advance Directives Information Provided: No <TIA Caceres - Last Filed: 11/09/22 16:50> Physical Exam ED Vital Signs: Vital Signs - 24 hr 11/09/22 16:44 11/09/22 18:40 11/09/22 19:27 Temperature 98.3 F Pulse Rate 59 63 61 Respiratory Rate 16 18 18 Blood Pressure 191/114 H 175/108 H 185/97 H Pulse Oximetry 97 94 95 Oxygen Delivery Method Room Air Room Air Room Air BMI result Body Mass Index 38.9 <TIA Caceres - Last Filed: 11/09/22 16:50> Vital Signs - 24 hr 11/09/22 16:44 11/09/22 18:40 11/09/22 19:27 Temperature 98.3 F Pulse Rate 59 63 61 Respiratory Rate 16 18 18 Blood Pressure 191/114 H 175/108 H 185/97 H Pulse Oximetry 97 94 95 Oxygen Delivery Method Room Air Room Air Room Air BMI result Body Mass Index 38.9 <Jordan Chahal MD - Last Filed: 11/10/22 01:36> Appearance: Alert. Oriented X3. No acute distress. Eyes: PERRLA, No Nystagmus ENT: Pharynx normal. Oral Mucosa moist Neck: Normal inspection. Neck supple. CVS: Normal heart rate and rhythm. Pulses normal. Respiratory: No respiratory distress. Equal air entry bilateral, no wheezing/rales/rhonchi Abdomen: Soft and nontender. Bowel sounds are present, no mass palpable, no CVA tenderness Skin: Skin warm and dry. Normal skin color. Normal skin turgor. Extremities: No lower extremity edema. No calf tenderness Neuro: Oriented X 3. No motor deficit. No sensory deficit.No cerebellar signs , cranial nerves II-XII intact <Jordan Chahal MD - Last Filed: 11/10/22 01:36> Course Course Course Narrative: ANDREAE- 16:45pm - 57yoF c PMHx of HTN and left humerus fracture c hypotonic bladder who has a covarrubias cath in place receiving OT at home when the occupational therapist took the pt's BP at home and was high at 180/110 and called the ambulance. 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 Reports she didnt take her BP meds this morning but then when the ambulance arrived she took her metoprolol at that time. Patient is still hypertensive. Plan: Labs, EKG, chest x-ray, right hand x-ray, CT scan of brain without contrast, COVID/RSV/flu swab, UA. Patient stable to go back to the waiting room to be evaluated in the ED. <TIA Caceres - Last Filed: 11/09/22 16:50> Medications Administered Discontinued Medications Generic Name Dose Route Start Last Admin Trade Name Freq PRN Reason Stop Dose Admin Lisinopril 40 mg 11/09/22 20:48 11/09/22 21:26 Lisinopril 40 Mg Tablet PO 11/09/22 20:49 40 mg ONCE ONE Administration Protocol Oxycodone HCl 10 mg 11/09/22 20:48 11/09/22 21:26 Oxycodone Hcl Immed Release 5 Mg Tablet PO 11/09/22 20:49 10 mg ONCE ONE Administration <TIA Caceres - Last Filed: 11/09/22 16:50> Medications Administered Discontinued Medications Generic Name Dose Route Start Last Admin Trade Name Freq PRN Reason Stop Dose Admin Lisinopril 40 mg 11/09/22 20:48 11/09/22 21:26 Lisinopril 40 Mg Tablet PO 11/09/22 20:49 40 mg ONCE ONE Administration Protocol Oxycodone HCl 10 mg 11/09/22 20:48 11/09/22 21:26 Oxycodone Hcl Immed Release 5 Mg Tablet PO 11/09/22 20:49 10 mg ONCE ONE Administration <Jordan Chahal MD - Last Filed: 11/10/22 01:36> Medical Decision Making Medical Decision Making MDM Narrative: Patient with history of hypertension missed her lisinopril and blood pressure was elevated labs were stable will give her a dose of her lisinopril 40 mg advised to follow with PCP and take medication on time <Jordan Chahal MD - Last Filed: 11/10/22 01:36> Lab Data MDM Lab Attestation statement: I reviewed the patient's lab results. <Jordan Chahal MD - Last Filed: 11/10/22 01:36> Result Diagrams: : 11/09/22 17:37 11/09/22 17:37 <TIA Caceres - Last Filed: 11/09/22 16:50> Labs: Lab Results 11/09/22 11/09/22 11/09/22 Range/Units 17:37 17:37 17:37 WBC 8.7 (4.8-10.8) X10*3/uL RBC 4.39 (4.20-5.50) X10*6/uL Hgb 12.4 (12.0-16.0) g/dl Hct 37.7 (37.0-47.0) % MCV 85.9 (80.0-98.0) fL MCH 28.2 (27.0-33.0) pg MCHC 32.9 (31.0-35.0) g/dl RDW 12.9 (11.0-16.0) % Plt Count 471 H D (160-400) X10*3/uL MPV 9.4 (9.4-12.3) fL Immature Gran % (Auto) 0.1 (0.0-0.4) % Neut % (Auto) 51.8 (45-73) % Lymph % (Auto) 35.3 (20-40) % Gilmer % (Auto) 6.6 (2-11) % Eos % (Auto) 5.3 H (0-4) % Baso % (Auto) 0.9 (0-2) % Lymph # (Auto) 3.1 (1.2-4.9) X10*3/uL Gilmer # (Auto) 0.6 (0.1-1.2) X10*3/uL Eos # (Auto) 0.5 H (0.0-0.4) X10*3/uL Baso # (Auto) 0.1 (0.0-0.2) X10*3/uL Abs Immat Gran (auto) 0.01 (0.00-0.03) X10*3/uL Absolute Neuts (auto) 4.5 (2.0-8.3) x10*3/uL Absolute Nucleated RBC 0.000 (0.0-0.012) X10*3/uL Nucleated RBC % (auto) 0.0 (0.0-0.2) /100WBC PT Cancelled INR Cancelled Sodium 141 (135-145) mmol/L Potassium 3.8 (3.3-5.1) mmol/L Chloride 107 (96-108) mmol/L Carbon Dioxide 24 (22-29) mmol/L Anion Gap 14 (12-20) BUN 15 (9-16) mg/dL Creatinine 0.69 (0.5-1.4) mg/dL Estim Creat Clear Calc 101.3 Estimated GFR > 60 Random Glucose 113 (60-115) mg/dL Calcium 9.8 (8.4-10.2) mg/dL Magnesium 1.9 (1.6-2.6) mg/dL Total Bilirubin 0.2 (0.0-1.0) mg/dL AST 16 (5-31) U/L ALT 17 (0-31) U/L Alkaline Phosphatase 77 (39-117) U/L Troponin I High Sens (<3.5-17.0) ng/L Total Protein 6.9 (6.5-8.0) g/dL Albumin 4.0 (3.5-5.0) g/dL Urine Color Urine Appearance Urine pH (5.0-9.0) Ur Specific Douglas (1.005-1.025) Urine Protein (Neg-Trace) mg/dL Urine Glucose (UA) (Negative) mg/dL Urine Ketones (Negative) mg/dL Urine Blood (Negative) Urine Nitrite (Negative) Ur Leukocyte Esterase (Negative) Urine RBC (0-2) /HPF Urine WBC (0-5) /HPF Ur Squamous Epith Cells (0-2) /HPF Urine Bacteria (None Seen) Hyaline Casts (0-2) /LPF Influenza Type A (PCR) (Negative) Influenza Type B (PCR) (Negative) RSV RNA Qual (PCR) (Negative) SARS-CoV-2 RNA (RT-PCR) (Negative) 11/09/22 11/09/22 11/09/22 Range/Units 17:37 17:37 17:44 WBC (4.8-10.8) X10*3/uL RBC (4.20-5.50) X10*6/uL Hgb (12.0-16.0) g/dl Hct (37.0-47.0) % MCV (80.0-98.0) fL MCH (27.0-33.0) pg MCHC (31.0-35.0) g/dl RDW (11.0-16.0) % Plt Count (160-400) X10*3/uL MPV (9.4-12.3) fL Immature Gran % (Auto) (0.0-0.4) % Neut % (Auto) (45-73) % Lymph % (Auto) (20-40) % Gilmer % (Auto) (2-11) % Eos % (Auto) (0-4) % Baso % (Auto) (0-2) % Lymph # (Auto) (1.2-4.9) X10*3/uL Gilmer # (Auto) (0.1-1.2) X10*3/uL Eos # (Auto) (0.0-0.4) X10*3/uL Baso # (Auto) (0.0-0.2) X10*3/uL Abs Immat Gran (auto) (0.00-0.03) X10*3/uL Absolute Neuts (auto) (2.0-8.3) x10*3/uL Absolute Nucleated RBC (0.0-0.012) X10*3/uL Nucleated RBC % (auto) (0.0-0.2) /100WBC PT INR Sodium (135-145) mmol/L Potassium (3.3-5.1) mmol/L Chloride (96-108) mmol/L Carbon Dioxide (22-29) mmol/L Anion Gap (12-20) BUN (9-16) mg/dL Creatinine (0.5-1.4) mg/dL Estim Creat Clear Calc Estimated GFR Random Glucose (60-115) mg/dL Calcium (8.4-10.2) mg/dL Magnesium (1.6-2.6) mg/dL Total Bilirubin (0.0-1.0) mg/dL AST (5-31) U/L ALT (0-31) U/L Alkaline Phosphatase (39-117) U/L Troponin I High Sens 5.5 (<3.5-17.0) ng/L Total Protein (6.5-8.0) g/dL Albumin (3.5-5.0) g/dL Urine Color Yellow Urine Appearance Clear Urine pH 6.5 (5.0-9.0) Ur Specific Douglas 1.015 (1.005-1.025) Urine Protein Trace (Neg-Trace) mg/dL Urine Glucose (UA) Negative (Negative) mg/dL Urine Ketones Negative (Negative) mg/dL Urine Blood Moderate (2+) H (Negative) Urine Nitrite Negative (Negative) Ur Leukocyte Esterase Negative (Negative) Urine RBC 11-20 H (0-2) /HPF Urine WBC 0-5 (0-5) /HPF Ur Squamous Epith Cells 0-2 (0-2) /HPF Urine Bacteria None Seen (None Seen) Hyaline Casts 0-2 (0-2) /LPF Influenza Type A (PCR) NEGATIVE (Negative) Influenza Type B (PCR) NEGATIVE (Negative) RSV RNA Qual (PCR) NEGATIVE (Negative) SARS-CoV-2 RNA (RT-PCR) NEGATIVE (Negative) <TIA Caceres - Last Filed: 11/09/22 16:50> Lab Results 11/09/22 11/09/22 11/09/22 Range/Units 17:37 17:37 17:37 WBC 8.7 (4.8-10.8) X10*3/uL RBC 4.39 (4.20-5.50) X10*6/uL Hgb 12.4 (12.0-16.0) g/dl Hct 37.7 (37.0-47.0) % MCV 85.9 (80.0-98.0) fL MCH 28.2 (27.0-33.0) pg MCHC 32.9 (31.0-35.0) g/dl RDW 12.9 (11.0-16.0) % Plt Count 471 H D (160-400) X10*3/uL MPV 9.4 (9.4-12.3) fL Immature Gran % (Auto) 0.1 (0.0-0.4) % Neut % (Auto) 51.8 (45-73) % Lymph % (Auto) 35.3 (20-40) % Gilmer % (Auto) 6.6 (2-11) % Eos % (Auto) 5.3 H (0-4) % Baso % (Auto) 0.9 (0-2) % Lymph # (Auto) 3.1 (1.2-4.9) X10*3/uL Gilmer # (Auto) 0.6 (0.1-1.2) X10*3/uL Eos # (Auto) 0.5 H (0.0-0.4) X10*3/uL Baso # (Auto) 0.1 (0.0-0.2) X10*3/uL Abs Immat Gran (auto) 0.01 (0.00-0.03) X10*3/uL Absolute Neuts (auto) 4.5 (2.0-8.3) x10*3/uL Absolute Nucleated RBC 0.000 (0.0-0.012) X10*3/uL Nucleated RBC % (auto) 0.0 (0.0-0.2) /100WBC PT Cancelled INR Cancelled Sodium 141 (135-145) mmol/L Potassium 3.8 (3.3-5.1) mmol/L Chloride 107 (96-108) mmol/L Carbon Dioxide 24 (22-29) mmol/L Anion Gap 14 (12-20) BUN 15 (9-16) mg/dL Creatinine 0.69 (0.5-1.4) mg/dL Estim Creat Clear Calc 101.3 Estimated GFR > 60 Random Glucose 113 (60-115) mg/dL Calcium 9.8 (8.4-10.2) mg/dL Magnesium 1.9 (1.6-2.6) mg/dL Total Bilirubin 0.2 (0.0-1.0) mg/dL AST 16 (5-31) U/L ALT 17 (0-31) U/L Alkaline Phosphatase 77 (39-117) U/L Troponin I High Sens (<3.5-17.0) ng/L Total Protein 6.9 (6.5-8.0) g/dL Albumin 4.0 (3.5-5.0) g/dL Urine Color Urine Appearance Urine pH (5.0-9.0) Ur Specific Douglas (1.005-1.025) Urine Protein (Neg-Trace) mg/dL Urine Glucose (UA) (Negative) mg/dL Urine Ketones (Negative) mg/dL Urine Blood (Negative) Urine Nitrite (Negative) Ur Leukocyte Esterase (Negative) Urine RBC (0-2) /HPF Urine WBC (0-5) /HPF Ur Squamous Epith Cells (0-2) /HPF Urine Bacteria (None Seen) Hyaline Casts (0-2) /LPF Influenza Type A (PCR) (Negative) Influenza Type B (PCR) (Negative) RSV RNA Qual (PCR) (Negative) SARS-CoV-2 RNA (RT-PCR) (Negative) 11/09/22 11/09/22 11/09/22 Range/Units 17:37 17:37 17:44 WBC (4.8-10.8) X10*3/uL RBC (4.20-5.50) X10*6/uL Hgb (12.0-16.0) g/dl Hct (37.0-47.0) % MCV (80.0-98.0) fL MCH (27.0-33.0) pg MCHC (31.0-35.0) g/dl RDW (11.0-16.0) % Plt Count (160-400) X10*3/uL MPV (9.4-12.3) fL Immature Gran % (Auto) (0.0-0.4) % Neut % (Auto) (45-73) % Lymph % (Auto) (20-40) % Gilmer % (Auto) (2-11) % Eos % (Auto) (0-4) % Baso % (Auto) (0-2) % Lymph # (Auto) (1.2-4.9) X10*3/uL Gilmer # (Auto) (0.1-1.2) X10*3/uL Eos # (Auto) (0.0-0.4) X10*3/uL Baso # (Auto) (0.0-0.2) X10*3/uL Abs Immat Gran (auto) (0.00-0.03) X10*3/uL Absolute Neuts (auto) (2.0-8.3) x10*3/uL Absolute Nucleated RBC (0.0-0.012) X10*3/uL Nucleated RBC % (auto) (0.0-0.2) /100WBC PT INR Sodium (135-145) mmol/L Potassium (3.3-5.1) mmol/L Chloride (96-108) mmol/L Carbon Dioxide (22-29) mmol/L Anion Gap (12-20) BUN (9-16) mg/dL Creatinine (0.5-1.4) mg/dL Estim Creat Clear Calc Estimated GFR Random Glucose (60-115) mg/dL Calcium (8.4-10.2) mg/dL Magnesium (1.6-2.6) mg/dL Total Bilirubin (0.0-1.0) mg/dL AST (5-31) U/L ALT (0-31) U/L Alkaline Phosphatase (39-117) U/L Troponin I High Sens 5.5 (<3.5-17.0) ng/L Total Protein (6.5-8.0) g/dL Albumin (3.5-5.0) g/dL Urine Color Yellow Urine Appearance Clear Urine pH 6.5 (5.0-9.0) Ur Specific Douglas 1.015 (1.005-1.025) Urine Protein Trace (Neg-Trace) mg/dL Urine Glucose (UA) Negative (Negative) mg/dL Urine Ketones Negative (Negative) mg/dL Urine Blood Moderate (2+) H (Negative) Urine Nitrite Negative (Negative) Ur Leukocyte Esterase Negative (Negative) Urine RBC 11-20 H (0-2) /HPF Urine WBC 0-5 (0-5) /HPF Ur Squamous Epith Cells 0-2 (0-2) /HPF Urine Bacteria None Seen (None Seen) Hyaline Casts 0-2 (0-2) /LPF Influenza Type A (PCR) NEGATIVE (Negative) Influenza Type B (PCR) NEGATIVE (Negative) RSV RNA Qual (PCR) NEGATIVE (Negative) SARS-CoV-2 RNA (RT-PCR) NEGATIVE (Negative) <Jordan Chahal MD - Last Filed: 11/10/22 01:36> Discharge Plan Discharge Clinical Impression: Hypertension, Fracture, humerus <TIA Caceres - Last Filed: 11/09/22 16:50> Patient Disposition: Home, Self-Care <TIA Caceres - Last Filed: 11/09/22 16:50> Instructions: Hypertension (ED), Proximal Humerus Fracture (ED) <TIA Caceres - Last Filed: 11/09/22 16:50> Additional Instructions: Take blood pressure medications on time Take of pain medication as prescribed Follow with Orthopedics <TIA Caceres - Last Filed: 11/09/22 16:50> Prescriptions: No Action methenamine hippurate 1 gram tablet 1 g PO DAILY 90 Days Qty: 90 2RF ascorbate calcium (vitamin C) 500 mg tablet 500 mg PO DAILY 90 Days Qty: 90 2RF ciprofloxacin HCl [Cipro] 500 mg tablet 500 mg PO BID 7 Days Qty: 14 0RF amitriptyline 25 mg tablet 25 mg PO BEDTIME Qty: 30 0RF amoxicillin-pot clavulanate 875-125 mg tablet 1 tab PO BID Qty: 14 0RF amoxicillin-pot clavulanate 875-125 mg tablet 1 tab PO Q12H 10 Days Qty: 20 0RF loratadine 10 mg tablet 10 mg PO DAILY venlafaxine 150 mg capsule,extended release 24hr 150 mg PO DAILY albuterol sulfate [ProAir HFA] 90 mcg/actuation HFA aerosol inhaler 2 puff inhalation Q4-6H PRN oxycodone-acetaminophen 5-325 mg tablet 1 tab PO Q8H PRN (Reason: severe pain) clonazepam 1 mg tablet 1 mg PO BID ibuprofen 800 mg tablet 800 mg PO DAILY PRN (Reason: pain) acetaminophen [Pain Relief (acetaminophen)] 650 mg tablet extended release 650 mg PO Q12H PRN lidocaine [Lidoderm] 5 % adhesive patch,medicated 0 patch topical diclofenac sodium 1 % gel 2 g topical BID fluticasone propionate 50 mcg/actuation spray,suspension 2 spray intranasal DAILY metoprolol tartrate 100 mg tablet 100 mg PO BID gabapentin 600 mg tablet 600 mg PO TID lisinopril 40 mg tablet 40 mg PO DAILY amlodipine 10 mg tablet 10 mg PO DAILY atorvastatin 10 mg tablet 10 mg PO BEDTIME <TIA Caceres - Last Filed: 11/09/22 16:50>
[2022-11-09 16:44] VITALS: BP 191/114; PULSE 59; RESP 16; O2SAT 97; BMI 38.9
--- NOTE | 2022-11-09 16:46 | ECG_ITS ---
Test Reason : cp Blood Pressure : / mmHG Vent. Rate : 068 BPM Atrial Rate : 068 BPM P-R Int : 162 ms QRS Dur : 086 ms QT Int : 424 ms P-R-T Axes : 012 -33 024 degrees QTc Int : 450 ms Normal sinus rhythm Left axis deviation Moderate voltage criteria for LVH, may be normal variant ( R in aVL , [place] product ) Anterior infarct , age undetermined Abnormal ECG When compared with ECG of 27-OCT-2022 06:05, Vent. rate has increased BY 24 BPM Nonspecific T wave abnormality has replaced inverted T waves in Inferior leads Referred By: Krystyna Franco Electronically Signed By:JOE MCDONALD
[2022-11-09 17:51] LABS: MANUAL DIFF FLAG NO
[2022-11-09 18:03] LABS: Appearance Urine Clear; Color Urine Yellow; Glucose Urine UA Negative (Negative); Leukocyte Esterase Urine Negative (Negative); Nitrite Urine Negative (Negative); PH 6.5 (5.0-9.0); Specific Gravity - Urine 1.015 (1.005-1.025); UMIC TRIGGER UACC YES; Urine Blood Moderate (2+) (Negative); Urine Ketones Negative (Negative); Urine Protein Trace mg/dL (Neg-Trace)
[2022-11-09 18:08] LABS: Alanine Aminotransferase 17 U/L (0-31); Alkaline Phosphatase 77 U/L (39-117); Anion Gap 14 (12-20); Aspartate Amino Transferase 16 U/L (5-31); Bilirubin Total 0.2 mg/dL (0.0-1.0); Blood Urea Nitrogen 15 mg/dL (9-16); Calcium 9.8 mg/dL (8.4-10.2); Carbon Dioxide 24 mmol/L (22-29); Chloride 107 mmol/L (96-108); Creatinine Clr Calc Pharmacy 101.3; Estimated Glomerular Filt Rate > 60; Glucose Random 113 mg/dL (60-115); Magnesium 1.9 mg/dL (1.6-2.6); Potassium 3.8 mmol/L (3.3-5.1); Sodium 141 mmol/L (135-145); Total Protein 6.9 g/dL (6.5-8.0)
[2022-11-09 18:08] LABS: Bacteria Urine None Seen (None Seen); Hyaline Casts Urine 0-2 /LPF (0-2); Squamous Epithelial Cell Urine 0-2 /HPF (0-2); WBC Urine 0-5 /HPF (0-5)
[2022-11-09 18:15] LABS: Troponin-I High Sensitivity 5.5 ng/L (<3.5-17.0)
[2022-11-09 18:20] LABS: Basophils Absolute Auto 0.1 X10*3/uL (0.0-0.2); Basophils Percent Auto 0.9 % (0-2); Eosinophils Absolute Auto 0.5 X10*3/uL (0.0-0.4); Eosinophils Percent Auto 5.3 % (0-4); Hematocrit 37.7 % (37.0-47.0); Hemoglobin 12.4 g/dl (12.0-16.0); Imm Gran Abs Auto 0.01 X10*3/uL (0.00-0.03); Imm Gran Pct Auto 0.1 % (0.0-0.4); Lymphocytes Absolute Auto 3.1 X10*3/uL (1.2-4.9); Lymphocytes Percent Auto 35.3 % (20-40); Mean Corpuscular HGB Conc 32.9 g/dl (31.0-35.0); Mean Corpuscular Hemoglobin 28.2 pg (27.0-33.0); Mean Corpuscular Volume 85.9 fL (80.0-98.0); Mean Platelet Volume 9.4 fL (9.4-12.3); Monocytes Absolute Auto 0.6 X10*3/uL (0.1-1.2); Monocytes Percent Auto 6.6 % (2-11); Neutrophils Absolute Auto 4.5 x10*3/uL (2.0-8.3); Neutrophils Percent Auto 51.8 % (45-73); Platelet Count 471 X10*3/uL (160-400); Red Blood Count 4.39 X10*6/uL (4.20-5.50); Red Cell Distribution Width 12.9 % (11.0-16.0); White Blood Count 8.7 X10*3/uL (4.8-10.8)
[2022-11-09 18:32] LABS: Influenza A PCR NEGATIVE (Negative); Influenza B PCR NEGATIVE (Negative); Resp Syncy Virus RNA Qual PCR NEGATIVE (Negative); SARS COV2 PCR INHOUSE NEGATIVE (Negative)
[2022-11-09 18:40] VITALS: BP 175/108; PULSE 63; RESP 18; O2SAT 94
[2022-11-09 19:27] VITALS: BP 185/97; PULSE 61; RESP 18; TEMP 36.8; O2SAT 95
--- NOTE | 2022-11-09 19:52 | PC.NURSE ---
Pt. resting in room. Reporting shoulder pain at 10/10. Pt. also has hx of anxiety and panic attacks and reports taking 1mg of ativan at home.
[2022-11-09] MEDS: lisinopriL 40 MG TABLET PO (21:26)
[2022-11-09] MEDS: oxyCODONE HCl Immed Release 5 MG TABLET 10 MG PO (21:26)
--- NOTE | 2022-11-09 21:30 | PC.NURSE ---
Medicated per Jan, Reviewed Discharge instructions with pt , pt verbalized understanding. Notified RICHARDSON Steele.
== END 2022-11-10 06:45 | disposition home or self-care (01) ==
PROVIDERS: Physician Assistant Medical; Emergency Provider Internal Medicine; PCP Family Medicine
DX: I10 Essential (primary) hypertension (principal); S42.201D Unspecified fracture of upper end of right humerus, subsequent encounter for fracture with routine healing; S62.356D Nondisplaced fracture of shaft of fifth metacarpal bone, right hand, subsequent encounter for fracture with routine healing; X58.XXXD Exposure to other specified factors, subsequent encounter; Z20.828 Contact with and (suspected) exposure to other viral communicable diseases; E78.5 Hyperlipidemia, unspecified; Z96.0 Presence of urogenital implants; Z79.899 Other long term (current) drug therapy; Z79.02 Long term (current) use of antithrombotics/antiplatelets
CPT/HCPCS: 0241U; 36415; 70450; 71045; 73130; 80053; 81001; 83735; 84484; 85025; 93005; 99284

== ENCOUNTER 2022-12-02 13:31 | Emergency (ER) | payer MEDICAID, SELFPAY ==
[2022-12-02 13:35] VITALS: BP 162/100; PULSE 48; O2SAT 98
[2022-12-02 13:46] VITALS: BP 169/96; PULSE 50; RESP 16; O2SAT 97; BMI 39.7
--- NOTE | 2022-12-02 14:00 | ECG_ITS ---
Test Reason : braydacardia Blood Pressure : / mmHG Vent. Rate : 047 BPM Atrial Rate : 047 BPM P-R Int : 164 ms QRS Dur : 094 ms QT Int : 470 ms P-R-T Axes : 023 -24 034 degrees QTc Int : 415 ms Sinus bradycardia with sinus arrhythmia Minimal voltage criteria for LVH, may be normal variant ( Gibson product ) Anterior infarct (cited on or before 09-NOV-2022) Abnormal ECG When compared with ECG of 09-NOV-2022 17:32, No significant change was found Referred By: Betsy Wood Electronically Signed By:JOE MCDONALD
[2022-12-02 14:15] VITALS: BP 161/83; PULSE 46; RESP 20; O2SAT 97
--- NOTE | 2022-12-02 14:15 | ED_ITS ---
HPI - Female Genitourinary General Chief complaint: Urogenital-Female Stated complaint: HYPERTENSION,?UTI Time Seen by Provider: 12/02/22 13:47 Source: patient Mode of arrival: ambulatory Limitations: no limitations History of Present Illness HPI Narrative: 57-year-old female past medical history of CAD, right humeral fracture, and hypertonic bladder presents to the emergency department today with complaints of flank pain, concern for UTI, and Covarrubias leaking. She states she typically self catheterizes at home but has been unable due to humeral fracture. She reports her covarrubias was replaced several days ago and has been leaking since. She reports her urine has recently become cloudy prompting her concern for UTI. Pt denies any recent illness, sick contacts, paresthesias, weakness, fever, chills, nausea, vomiting, diarrhea, constipation, headache, or vision changes. Patient reports to nurse that she tool two marijuana gummies and her prescribed metoprolol prior to presenting to the emergency department. MD elicited complaint: UTI Pertinent past history: other (chronic covarrubias) Onset (ago): day(s) Location of symptoms: flank Related Data Home Medications Medication Instructions Recorded Confirmed acetaminophen 650 mg 650 mg PO Q12H PRN 11/18/21 tablet,extended release (Pain Relief (acetaminophen)) albuterol sulfate 90 mcg/actuation 2 puff inhalation Q4-6H PRN 11/18/21 aerosol inhaler (ProAir HFA) amlodipine 10 mg tablet 10 mg PO DAILY 11/18/21 atorvastatin 10 mg tablet 10 mg PO BEDTIME 11/18/21 clonazepam 1 mg tablet 1 mg PO BID 11/18/21 diclofenac sodium 1 % topical gel 2 g topical BID 11/18/21 fluticasone propionate 50 2 spray intranasal DAILY 11/18/21 mcg/actuation nasal spray,suspension gabapentin 600 mg tablet 600 mg PO TID 11/18/21 ibuprofen 800 mg tablet 800 mg PO DAILY PRN pain 11/18/21 lidocaine 5 % topical patch 0 patch topical 11/18/21 (Lidoderm) lisinopril 40 mg tablet 40 mg PO DAILY 11/18/21 loratadine 10 mg tablet 10 mg PO DAILY 11/18/21 metoprolol tartrate 100 mg tablet 100 mg PO BID 11/18/21 oxycodone-acetaminophen 5 mg-325 1 tab PO Q8H PRN severe pain 11/18/21 mg tablet venlafaxine 150 mg 150 mg PO DAILY 11/18/21 capsule,extended release 24 hr Previous Rx's Medication Instructions Recorded ascorbate calcium (vitamin C) 500 500 mg PO DAILY 90 days #90 tabs 12/03/21 mg tablet methenamine hippurate 1 gram tablet 1 g PO DAILY 90 days #90 tabs 12/03/21 ciprofloxacin HCl 500 mg tablet 500 mg PO BID 7 days #14 tabs 01/06/22 (Cipro) amitriptyline 25 mg tablet 25 mg PO BEDTIME #30 tabs 01/07/22 amoxicillin 875 mg-potassium 1 tab PO BID #14 tabs 09/06/22 clavulanate 125 mg tablet amoxicillin 875 mg-potassium 1 tab PO Q12H 10 days #20 tabs 11/03/22 clavulanate 125 mg tablet cephalexin 500 mg capsule 500 mg PO BID 7 days #14 caps 12/02/22 Allergies Allergy/AdvReac Type Severity Reaction Status Date / Time No Known Allergies Allergy Verified 11/25/21 11:29 Review of Systems Review of Systems: In addition to documented HPI above, the additional ROS was obtained: CONSTITUTIONAL: Denies fever, chills, weakness, fatigue, headache, night swea ts, or weight loss EYES: Denies vision changes, eye pain, swelling, redness, foreign body, discharge ENT: Hearing normal. Denies sore throat, swallowing difficulty, throat tightness, hoarse voice, congestion, or ear pain CV: Denies chest pain or epigastric pain. No edema, palpitations, or dyspnea on exertion RESP: Denies shortness of breath. Denies cough, wheezing, dyspnea. Denies smoke exposure GI: Denies abdominal pain. Denies nausea, vomiting, constipation or diarrhea. No hematemesis, melena, or hematochezia. : Denies irregular bleeding or vaginal discharge. Denies flank pain or hematuria MSK: Denies recent trauma, change in gait, myalgias, joint swelling. Reports pain in right shoulder due to humeral fracture. SKIN: Denies no lesions, rashes, or sores NEURO: Denies new numbness, tingling, dizziness, paresthesias or weakness. No loss of consciousness. Denies headache ENDOCRINE: Denies unexpected weight loss. Denies polyuria, polydipsia. No temperature intolerance HEME/ONC: Denies bleeding disorders, easy bruising, or lymphadenopathy PSYCH: Denies anxiety/panic, depression, SI/HI, or social issues. Yes all other systems are reviewed and are negative [facility] Past Medical History Attestation statement: The following information was validated with the patient. Source: old records reviewed Medical History GERD (gastroesophageal reflux disease) H/O urinary retention HTN (hypertension) Hyperlipidemia Hypotonic bladder Knee derangement Patellofemoral arthrosis PFO (patent foramen ovale) Surgical History History of surgery Social History Social History Alcohol intake: current Alcohol intake frequency: a few times a month Alcohol type: beer Patient Tobacco Use Status: Never used Tobacco Advance Directives: No Physical Exam Vital Signs: Vital Signs: Last Vital Signs Temp 97.5 F 12/02/22 15:26 Pulse 52 12/02/22 15:26 Resp 20 12/02/22 15:26 BP 165/78 H 12/02/22 15:26 Pulse Ox 96 12/02/22 15:26 O2 Del Method 12/02/22 15:26 BMI result Body Mass Index 39.7 Nursing notes and vital signs reviewed. GENERAL APPEARANCE: A&0 x 4, generally well appearing, no acute distress HENMT: Normal to inspection, atraumatic, face symmetrical. Normal external ears, nose, and oropharynx clear. EYE: PERRLA, EOM intact, structures appear normal NECK: Supple without lymphadenopathy. No stiffness or restricted ROM. CHEST: Normal to inspection HEART: Normal rate and regular rhythm, normal S1/S2, no M/R/G LUNGS: LS CTA, moving air well. Able to speak in complete sentences. No crackles, wheezes, or rhonchi auscultated ABDOMEN: Soft, nontender, nondistended. Normal bowel sounds noted : 14 fr covarrubias catheter in place with yellow cloudy urine in covarrubias tubing and bag. BACK: No CVAT, no obvious deformity EXTREMITIES: Moving RUE with discomfort and decreased ROM. No cyanosis, clubbing, or edema. Normal capillary refill. NEUROLOGICAL: Alert and oriented. CN not formally tested but appearing grossly intact. Cognition normal SKIN: Warm and dry without any lesions, rash, or visible sores PSYCH: Cooperative, normal affect, normal thought process Course Course Course Narrative: 1400: Plan to removed current indwelling Covarrubias catheter and replace with a 16 Lao Covarrubias. Plan to obtain urine sample at that time. Medical Decision Making Medical Decision Making [facility] Narrative: 57-year-old female past medical history of CAD, right humeral fracture, and hypertonic bladder presents to the emergency department today with complaints of flank pain, concern for UTI, and Covarrubias leaking. Covarrubias exchange for 16 Lao F oley. Urine sample sent during catheterization from clean Covarrubias and urine positive for infection. Cephalexin started in the emergency department with plan to continue outpatient. Blood work unremarkable. EKG sinus bradycardia with sinus arrhythmia at 47 beats per minute. Patient A&O x 4. Heart rate likely a side effect of edible marijuana. Tylenol and Toradol given in the emergency department complaints of right shoulder pain. Patient is safe for discharge at this time with education regarding perineal care with a chronic indwelling Covarrubias in place. HPI, PE, diagnostics, and plan discussed with patient and family with no unanswered questions at this time. Patient educated to return to the emergency department with new, worsening, or concerning emergent symptoms. Recommended to follow-up with there primary care provider for further treatment and management. *Refer to Course for additional information on consultations, diagnostic interpretation, consultations, emergency department stay, conversations with patient and family, shared decision making with patient, and more information on medical decision making* Lab Data [facility] Lab Attestation statement: I reviewed the patient's lab results. 12/02/22 15:40 12/02/22 15:40 Labs: Lab Results 12/02/22 12/02/22 12/02/22 Range/Units 15:40 15:40 16:04 WBC 6.9 (4.8-10.8) X10*3/uL RBC 4.40 (4.20-5.50) X10*6/uL Hgb 12.7 (12.0-16.0) g/dl Hct 37.4 (37.0-47.0) % MCV 85.0 (80.0-98.0) fL MCH 28.9 (27.0-33.0) pg MCHC 34.0 (31.0-35.0) g/dl RDW 13.7 (11.0-16.0) % Plt Count 207 D (160-400) X10*3/uL MPV 10.1 (9.4-12.3) fL Immature Gran % (Auto) 0.4 (0.0-0.4) % Neut % (Auto) 46.4 (45-73) % Lymph % (Auto) 37.8 (20-40) % Grady % (Auto) 7.3 (2-11) % Eos % (Auto) 6.8 H (0-4) % Baso % (Auto) 1.3 (0-2) % Lymph # (Auto) 2.6 (1.2-4.9) X10*3/uL Grady # (Auto) 0.5 (0.1-1.2) X10*3/uL Eos # (Auto) 0.5 H (0.0-0.4) X10*3/uL Baso # (Auto) 0.1 (0.0-0.2) X10*3/uL Abs Immat Gran (auto) 0.03 (0.00-0.03) X10*3/uL Absolute Neuts (auto) 3.2 (2.0-8.3) x10*3/uL Absolute Nucleated RBC 0.000 (0.0-0.012) X10*3/uL Nucleated RBC % (auto) 0.0 (0.0-0.2) /100WBC Smear Tech's Comments VERIFIED Sodium 143 (135-145) mmol/L Potassium 3.7 (3.3-5.1) mmol/L Chloride 109 H (96-108) mmol/L Carbon Dioxide 26 (22-29) mmol/L Anion Gap 12 (12-20) BUN 16 (9-16) mg/dL Creatinine 0.79 (0.5-1.4) mg/dL Estim Creat Clear Calc 89.4 Estimated GFR > 60 Random Glucose 110 (60-115) mg/dL Calcium 9.2 D (8.4-10.2) mg/dL Magnesium 1.9 (1.6-2.6) mg/dL Total Bilirubin 0.5 (0.0-1.0) mg/dL AST 16 (5-31) U/L ALT 14 (0-31) U/L Alkaline Phosphatase 68 (39-117) U/L Total Protein 6.3 L (6.5-8.0) g/dL Albumin 3.9 (3.5-5.0) g/dL Urine Color Yellow Urine Appearance Cloudy Urine pH 6.5 (5.0-9.0) Ur Specific Norman 1.015 (1.005-1.025) Urine Protein Trace (Neg-Trace) mg/dL Urine Glucose (UA) Negative (Negative) mg/dL Urine Ketones Negative (Negative) mg/dL Urine Blood Trace H (Negative) Urine Nitrite Negative (Negative) Ur Leukocyte Esterase Large (3+) H (Negative) Urine RBC 6-10 H (0-2) /HPF Urine WBC >50 H (0-5) /HPF Ur Squamous Epith Cells 0-2 (0-2) /HPF Urine Bacteria 1+ (None Seen) Hyaline Casts 3-5 (0-2) /LPF Independent Interpretation I performed an independent interpretation of an: EKG Interpretation: Evidently interpreted the EKG showing sinus bradycardia with sinus arrhythmia at 47 beats per minute. Vent. Rate : 047 BPM ? ? Atrial Rate : 047 BPM ?? P-R Int : 164 ms? QRS Dur : 094 ms ? ? QT Int : 470 ms ? ? ? P-R-T Axes : 023 -24 034 degrees ?? QTc Int : 415 ms ? Sinus bradycardia with sinus arrhythmia Minimal voltage criteria for LVH, may be normal variant ( Sharon product ) Anterior infarct (cited on or before 09-NOV-2022) Abnormal ECG Discharge Plan Discharge Clinical Impression: UTI (urinary tract infection) Patient Disposition: Home, Self-Care Instructions: Covarrubias Catheter Placement and Care (ED), Urinary Tract Infection in Older Adults (ED) Additional Instructions: YOU HAVE A URINARY TRACT INFECTION. Antibiotics have been sent to your preferred pharmacy. Please take entire course of medication as prescribed. CATHETER CARE AND CLEANSING You will need these supplies for cleaning your skin around your catheter and for cleaning your catheter: * 2 clean washcloths * 2 clean hand towels * Mild soap * Warm water * A clean container or sink Follow these skin care guidelines once a day, every day, or more often if needed: * Wash your hands well with soap and water. Be sure to clean between your fingers and under your nails. * Wet one of the washcloths with warm water and soap it up. * Gently wash all around the area where the catheter goes in with the soapy w ashcloth. Females should wipe from front to back. Males should wipe from the tip of the penis downward. * Rinse the washcloth with water until the soap is gone. * Add more soap to the washcloth. Use it to gently wash your upper legs and buttocks. * Rinse off the soap and pat dry with a clean towel. * Do not use creams, powders, or sprays near this area. Cleaning the Catheter Follow these steps two times a day to keep your catheter clean and free of germs that can cause infection: * Wash your hands well with soap and water. Be sure to clean between your fingers and under your nails. * Change the warm water in your container if you are using a container and not a sink. * Wet the second washcloth with warm water and soap it up. * Gently hold the catheter and begin washing the end near your vagina or penis. Move slowly down the catheter (away from your body) to clean it. Never clean from the bottom of the catheter toward your body. * Gently dry the tubing with the second clean towel. You will attach the catheter to your inner thigh with a special fastening device. Prescriptions: New cephalexin 500 mg capsule 500 mg PO BID 7 Days Qty: 14 0RF No Action methenamine hippurate 1 gram tablet 1 g PO DAILY 90 Days Qty: 90 2RF ascorbate calcium (vitamin C) 500 mg tablet 500 mg PO DAILY 90 Days Qty: 90 2RF ciprofloxacin HCl [Cipro] 500 mg tablet 500 mg PO BID 7 Days Qty: 14 0RF amitriptyline 25 mg tablet 25 mg PO BEDTIME Qty: 30 0RF amoxicillin-pot clavulanate 875-125 mg tablet 1 tab PO BID Qty: 14 0RF amoxicillin-pot clavulanate 875-125 mg tablet 1 tab PO Q12H 10 Days Qty: 20 0RF loratadine 10 mg tablet 10 mg PO DAILY venlafaxine 150 mg capsule,extended release 24hr 150 mg PO DAILY albuterol sulfate [ProAir HFA] 90 mcg/actuation HFA aerosol inhaler 2 puff inhalation Q4-6H PRN oxycodone-acetaminophen 5-325 mg tablet 1 tab PO Q8H PRN (Reason: severe pain) clonazepam 1 mg tablet 1 mg PO BID ibuprofen 800 mg tablet 800 mg PO DAILY PRN (Reason: pain) acetaminophen [Pain Relief (acetaminophen)] 650 mg tablet extended release 650 mg PO Q12H PRN lidocaine [Lidoderm] 5 % adhesive patch,medicated 0 patch topical diclofenac sodium 1 % gel 2 g topical BID fluticasone propionate 50 mcg/actuation spray,suspension 2 spray intranasal DAILY metoprolol tartrate 100 mg tablet 100 mg PO BID gabapentin 600 mg tablet 600 mg PO TID lisinopril 40 mg tablet 40 mg PO DAILY amlodipine 10 mg tablet 10 mg PO DAILY atorvastatin 10 mg tablet 10 mg PO BEDTIME Referrals: Aliza Paul DO [Primary Care Provider] - Print Language: [place] Islander
[2022-12-02 15:26] VITALS: BP 165/78; PULSE 52; RESP 20; TEMP 36.4; O2SAT 96
[2022-12-02 15:54] LABS: Imm Gran Abs Auto 0.03 X10*3/uL (0.00-0.03); Imm Gran Pct Auto 0.4 % (0.0-0.4); MANUAL DIFF FLAG SCAN; Mean Platelet Volume 10.1 fL (9.4-12.3); PLT CLUMP 1; Red Cell Distribution Width 13.7 % (11.0-16.0); SCAN SMEAR FLAG 1
[2022-12-02 15:56] LABS: Basophils Absolute Auto 0.1 X10*3/uL (0.0-0.2); Basophils Percent Auto 1.3 % (0-2); Eosinophils Absolute Auto 0.5 X10*3/uL (0.0-0.4); Eosinophils Percent Auto 6.8 % (0-4); Hematocrit 37.4 % (37.0-47.0); Hemoglobin 12.7 g/dl (12.0-16.0); Lymphocytes Absolute Auto 2.6 X10*3/uL (1.2-4.9); Lymphocytes Percent Auto 37.8 % (20-40); Mean Corpuscular Hemoglobin 28.9 pg (27.0-33.0); Monocytes Absolute Auto 0.5 X10*3/uL (0.1-1.2); Monocytes Percent Auto 7.3 % (2-11); Neutrophils Absolute Auto 3.2 x10*3/uL (2.0-8.3); Neutrophils Percent Auto 46.4 % (45-73)
[2022-12-02 16:04] LABS: Alanine Aminotransferase 14 U/L (0-31); Albumin Level 3.9 g/dL (3.5-5.0); Alkaline Phosphatase 68 U/L (39-117); Anion Gap 12 (12-20); Aspartate Amino Transferase 16 U/L (5-31); Bilirubin Total 0.5 mg/dL (0.0-1.0); Blood Urea Nitrogen 16 mg/dL (9-16); Calcium 9.2 mg/dL (8.4-10.2); Carbon Dioxide 26 mmol/L (22-29); Chloride 109 mmol/L (96-108); Creatinine Clr Calc Pharmacy 89.4; Estimated Glomerular Filt Rate > 60; Glucose Random 110 mg/dL (60-115); Magnesium 1.9 mg/dL (1.6-2.6); Potassium 3.7 mmol/L (3.3-5.1); Sodium 143 mmol/L (135-145); Total Protein 6.3 g/dL (6.5-8.0)
[2022-12-02 16:14] LABS: White Blood Count 6.9 X10*3/uL (4.8-10.8)
[2022-12-02 16:16] LABS: Platelet Count 207 X10*3/uL (160-400)
[2022-12-02 16:17] LABS: SLIDE REVIEW VERIFIED
[2022-12-02 16:19] LABS: Appearance Urine Cloudy; Color Urine Yellow; Glucose Urine UA Negative (Negative); Leukocyte Esterase Urine Large (3+) (Negative); Nitrite Urine Negative (Negative); PH 6.5 (5.0-9.0); Specific Gravity - Urine 1.015 (1.005-1.025); UMIC TRIGGER UACC YES; Urine Blood Trace (Negative); Urine Ketones Negative (Negative); Urine Protein Trace mg/dL (Neg-Trace)
[2022-12-02 16:31] LABS: Bacteria Urine 1+ (None Seen); Squamous Epithelial Cell Urine 0-2 /HPF (0-2); UACC Culture Trigger YES; WBC Urine >50 /HPF (0-5)
[2022-12-02] MEDS: Ketorolac Tromethamine 15 MG/ML VIAL IM (17:09)
[2022-12-02] MEDS: cephALEXin 500 MG CAPSULE PO (17:09)
[2022-12-02] MEDS: Acetaminophen 325 MG TABLET 650 MG PO (17:10)
--- NOTE | 2022-12-02 18:00 | MHC.EDTECH ---
PT WILL BE GOING BACK HOME VIA AMBULANCE DUE TO FX IN THE SHOULDER AND FEMUR. [facility]WO[facility] WILL BE TAKING THE PT BETWEEN 1800 - 1830.RICHARDSON NUÑEZ
== END 2022-12-02 19:09 | disposition home or self-care (01) ==
PROVIDERS: Nurse Practitioner Family; Emergency Provider Emergency Medicine; PCP Family Medicine
DX: N39.0 Urinary tract infection, site not specified (principal); B96.20 Unspecified Escherichia coli [E. coli] as the cause of diseases classified elsewhere; Z46.6 Encounter for fitting and adjustment of urinary device; Z96.0 Presence of urogenital implants
CPT/HCPCS: 36415; 51702; 80053; 81001; 83735; 85025; 87086; 87088; 87186; 93005; 96372; 99284; J1885

== ENCOUNTER 2022-12-09 10:12 | Outpatient (REF) | payer MEDICAID, SELFPAY | END 2022-12-09 10:13 | disposition home or self-care (01) | LOC: HO.HOSX 10:12 | PROVIDERS: Visit Provider Physician Assistant | DX: Z13.89 Encounter for screening for other disorder (principal) ==

== ENCOUNTER 2023-10-22 18:48 | Outpatient (REF) | payer MEDICAID, SELFPAY | END 2023-10-22 18:49 | disposition home or self-care (01) | LOC: HO.HHCLNP 18:48 | PROVIDERS: Visit Provider Family Medicine | DX: I10 Essential (primary) hypertension (principal); N39.0 Urinary tract infection, site not specified | CPT/HCPCS: 87086 ==

== ENCOUNTER 2023-12-07 12:34 | Outpatient (AMB) | payer MEDICAID, SELFPAY ==
--- NOTE | 2023-12-07 13:04 | MHC.OFFVIS ---
Intake Intake Visit Reasons: neurogenic bladder Intake Note: Patient presents to office today for follow up Neurogenic Bladder Urology Medications: none Blood Thinner: none PVR: 32ml's Browning Processor Required: No Accompanied by: Self / Same As Patient Allergies No Known Allergies Allergy (Verified 12/07/23 14:56) Medication List - Last Reconciled 12/07/23 by CAMPOS Flores acetaminophen ER (Pain Relief (acetaminophen)) 650 mg PO Q12H PRN albuterol sulfate 90 mcg/actuation (ProAir HFA) 2 puffs inhalation Q4-6H PRN amitriptyline 25 mg PO BEDTIME amlodipine 10 mg PO DAILY ascorbic acid (vitamin C) 1,000 mg PO DAILY 90 days aspirin (Adult Aspirin Regimen) 81 mg PO DAILY atorvastatin 10 mg PO BEDTIME cephalexin 500 mg PO BID 7 days clonazepam 1 mg PO BID diclofenac sodium 1% 2 grams topical BID fluticasone propionate 50 mcg/actuation 2 sprays intranasal DAILY gabapentin 600 mg PO TID ibuprofen 800 mg PO DAILY PRN lidocaine 5% (Lidoderm) 0 patches topical lisinopril 40 mg PO DAILY loratadine 10 mg PO DAILY methenamine hippurate 1 g PO daily 90 days metoprolol tartrate 100 mg PO BID oxycodone-acetaminophen 5-325 mg 1 tab PO Q8H PRN venlafaxine ER 150 mg PO DAILY HPI HPI Comments History of Present Illness Details Cheryl is a 58-year-old female patient of Dr. Paul. She has a past medical history of urinary retention, hypotonic bladder, GERD, anxiety, hyperlipidemia, and hypertension. She presents to the office today for follow-up. Of note, patient last seen by [facility] approximately 2 years ago. She reports having seeked emergency room care approximately five days ago for ongoing urinary issues at which time she was found to have a urinary tract infection and has since been on antibiotic therapy. She reports previously following up with [facility] and has been clean intermittent catheterizing for over 2 years. When asked she does report catheterizing 4-6 times daily depending on fluid intake. She currently reports foul-smelling urine otherwise she denies urinary urgency, urinary frequency, incontinence, nocturia, hematuria, dysuria, foul smelling urine, changes to urinary stream, flank pain, fever, and or chills. In office urinalysis results reviewed with the patient today. PVR 32ml's. Discussed obtaining retroperitoneal ultrasound for further assessment evaluation. Discussed and stressed the importance of completing antibiotic therapy as prescribed by ER physician. During assessment evaluation of the patient today at times the patient is vague upon answering questions. She otherwise offers no other issues or concerns at this time. [facility] Medical History Hypotonic bladder H/O urinary retention GERD (gastroesophageal reflux disease) Hyperlipidemia HTN (hypertension) PFO (patent foramen ovale) Patellofemoral arthrosis Knee derangement Surgical History History of surgery Social History (System 08/23/23 @ 14:50 by Hattie Aly) Alcohol intake: current Alcohol intake frequency: a few times a month Alcohol type: beer Patient Tobacco Use Status: Never used Tobacco Review of Systems Const Reports as per HPI Eyes Reports no additional complaints ENT Reports no additional complaints Card Reports as per HPI Resp Reports as per HPI GI Reports as per HPI Reports as per HPI Musc Reports as per HPI Neuro Reports no additional complaints Psych Reports as per HPI Endo Reports no additional complaints Alfred/Lymph Reports no additional complaints Aller/Immun Reports no additional complaints Physical Exam Const General: cooperative, comfortable, no acute distress, well developed, alert and awake Orientation/consciousness: patient oriented x3 (vague ) Limitations: no limitations HEENT Head: Yes normal to inspection, Yes normocephalic and Yes atraumatic Ears: hearing grossly normal bilaterally Eyes General: appearance normal, both eyes and all related structures Neck Neck: Yes normal visual inspection and Yes trachea midline Chest Chest palpation & inspection: normal inspection of the chest Resp Effort & Inspection: normal respiratory effort and able to speak in complete sentences Cardio Rate: regular rate GI Inspection: Yes normal to inspection General: Yes no CVA tenderness Back/Spine/Pelvis Back: no CVA tenderness Skin General skin exam: no rashes or lesions noted Neuro General: patient oriented x3 (vague ) Extrem General: Yes normal to inspection Psych Appearance: grossly normal and well kempt Mental Status: mental status grossly normal Speech and movement: Normal speech and movement present and Clear speech present Affect: normal affect Attitude: cooperative Thought content: Normal thought content present Insight: Fair insight present (Psych) Judgement: Fair judgement present (Psych) Office Procedures Post Void Residual Post Residual Void Post Void Residual (PVR): 32 [id number] Void Residual by ultrasound Results AMB Urinalysis, Automated UA Leukoctes 500 Misti/uL Last Edit by Dago Ruiz on 12/07/23 13:30 UA Nitrite Negative Last Edit by Dago Ruiz on 12/07/23 13:30 UA Urobilinogen 0.2 mg/dL Last Edit by Dago Ruiz on 12/07/23 13:30 UA Protein 15 mg/dL Last Edit by Dago Ruiz on 12/07/23 13:30 UA pH 6.0 Last Edit by [employer] [email or web address] Enterpriselois on 12/07/23 13:30 UA Blood 10 Kristofer/uL Last Edit by Dago Ruiz on 12/07/23 13:30 UA Specific Prosperity 1.025 Last Edit by Dago Ruiz on 12/07/23 13:30 UA Ketone Negative Last Edit by Dago Ruiz on 12/07/23 13:30 UA Bilirubin 0 mg/dL Last Edit by Dago Ruiz on 12/07/23 13:30 UA Glucose 0 mg/dL Last Edit by Likezleigh K12 Enterpriselois on 12/07/23 13:30 Results Reviewed Results Reviewed: Laboratory Last Values Urine pH (Auto) 6.0 12/07/23 13:28 Specific Prosperity (Auto) 1.025 12/07/23 13:28 Urine Protein (Auto) 15 mg/dL 12/07/23 13:28 Glucose (UA)(Auto) 0 mg/dL 12/07/23 13:28 Urine Ketones (Auto) Negative 12/07/23 13:28 Urine Blood (Auto) 10 Kristofer/uL 12/07/23 13:28 Urine Nitrite (Auto) Negative 12/07/23 13:28 Urine Bilirubin (Auto) 0 mg/dL 12/07/23 13:28 Urine Urobilinogen (Auto) 0.2 mg/dL 12/07/23 13:28 Leukocyte Esterase (Auto) 500 Misti/uL 12/07/23 13:28 Assessment & Plan Assessment & Plan (1) Incomplete bladder emptying: Code(s): R33.9 - Retention of urine, unspecified (2) UTI (urinary tract infection): Code(s): N39.0 - Urinary tract infection, site not specified Plan In office urinalysis results reviewed with the patient today; as noted above. PVR 32 mL. Continue CIC; patient currently denies needing refill on supplies; she reports receiving supplies from [facility] Start methenamine and vitamin-C as discussed and prescribed. Will obtain retroperitoneal ultrasound for further assessment evaluation. Discussed and stressed the importance of drinking plenty of water daily. Discussed and stressed the importance of completing antibiotic therapy as prescribed. Discussed at length potential causes for incomplete bladder emptying. Discussed potential near future in office cystoscopy for further assessment evaluation. Follow-up in 1-2 months with imaging to be completed prior; or sooner with any issues, concerns, and or questions. 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 All questions were answered. Physical exam, labs, and imaging were discussed and reviewed in detail. As well as risks, benefits, and discussion of treatment choices. No major barriers to understanding were identified. The patient expressed understanding and agreement with the above treatment plan. The patient was made aware they should contact our office by phone for worsening of their current condition, the appearance of new symptoms, or with any questions or concerns. Compliance is encouraged with any medications and follow up testing that is ordered. It is a privilege to be allowed the opportunity to participate in? your urological care.? Again, if you have any questions or concerns If you have any questions or concerns please do not hesitate to contact me. The office is [phone]. This note is constructed using voice recognition software. While every effort has been made to ensure accuracy senior policy advisor errors may have been included. Yours sincerely, CAMPOS Flores Coding Level of Care Code Est Pt Level 4 (09804) Diagnoses Incomplete bladder emptying R33.9 UTI (urinary tract infection) N39.0 CPT Codes Post Residual Void - PVR CPT Code: 32789-Hwxn Void Residual by ultrasound ([id number])
== END 2023-12-07 13:39 | disposition home or self-care (01) ==
LOC: HO.HUSH 12:34
PROVIDERS: PCP Family Medicine; Visit Provider Nurse Practitioner Family
DX: R33.9 Retention of urine, unspecified (principal); N39.0 Urinary tract infection, site not specified
CPT/HCPCS: 99214

== ENCOUNTER 2023-12-07 12:34 | Outpatient (REF) | payer MEDICAID, SELFPAY | END 2023-12-07 12:35 | disposition home or self-care (01) | LOC: HO.LNP 12:34 | PROVIDERS: PCP Family Medicine; Visit Provider Nurse Practitioner Family | DX: R33.9 Retention of urine, unspecified (principal); N31.9 Neuromuscular dysfunction of bladder, unspecified; N39.0 Urinary tract infection, site not specified; Z79.2 Long term (current) use of antibiotics; Z79.899 Other long term (current) drug therapy | CPT/HCPCS: 51798; 81003; 87086; 87088; 87186; 99212 ==

== ENCOUNTER 2024-02-09 10:46 | Outpatient (REF) | payer MEDICAID, SELFPAY | END 2024-02-09 10:47 | disposition home or self-care (01) | LOC: HO.HOSX 10:46 | PROVIDERS: Visit Provider Physician Assistant | DX: Z13.89 Encounter for screening for other disorder (principal) ==

== ENCOUNTER 2024-05-29 12:05 | Outpatient (REF) | payer MEDICAID, SELFPAY ==
--- NOTE | ~2024-05-29 | US_ITS ---
EXAMINATION: US RETROPERITONEAL COMPLETE (RENAL) CLINICAL INFORMATION: Retention of urine, unspecified. COMPARISON: CT abdomen and pelvis without contrast 11/03/2022. TECHNIQUE: Real-time imaging of the kidneys and bladder. FINDINGS: RIGHT KIDNEY: 10.8 x 4.7 x 4.6 cm (SAG x AP x TRV). The kidney is normal in size, contour, and echogenicity. Renal cortical thickness is normal. No calculi or focal parenchymal lesions. No hydronephrosis. LEFT KIDNEY: 10.3 x 4.6 x 5.1 cm (SAG x AP x TRV). The kidney is normal in size, contour, and echogenicity. Renal cortical thickness is normal. No renal calculi or hydronephrosis. Simple cyst measuring 1.3 x 0.9 x 1.1 cm in the upper pole. BLADDER: Bladder is decompressed. US/US retroperitoneal comp IMPRESSION: Suboptimal evaluation for urinary retention due to indwelling unclamped Quinonez catheter balloon decompressing the urinary bladder.
== END 2024-05-29 12:06 | disposition home or self-care (01) ==
LOC: HO.US 12:05
PROVIDERS: PCP Family Medicine; Visit Provider Nurse Practitioner Family
DX: R33.9 Retention of urine, unspecified (principal)
CPT/HCPCS: 76770

== ENCOUNTER 2024-06-11 15:20 | Emergency (ER) | payer MEDICAID, SELFPAY ==
[2024-06-11 15:26] VITALS: BP 128/90; BP 146/96; PULSE 84; PULSE 90; RESP 16; TEMP 36.4; O2SAT 93; O2SAT 96; BMI 28.8
--- NOTE | 2024-06-11 15:53 | PC.NURSE ---
a&ox4. vss and up to date. biba from home d/t not having covarrubias catheter changed x 6 weeks. pt reports dysuria/odor and c/o 7/10 abd discomfort. pt reports [facility] supposed to change it x 3 weeks ago but never showed up. pt denies fever/chills. original covarrubias catheter that was present upon presentation to ED was discontinued. new 16fr covarrubias catheter w/ 10ml balloon placed at this time. no urine output at this time d/t pt endorsing she previously placed a new bag prior to coming in. pt tolerated well. tech currently bedside obtaining labs. will obtain urine specimen was able. no sob/wob noted. respirations even/unlabored. plan of care ongoing. call jones placed within reach.
--- NOTE | 2024-06-11 15:56 | ED.FEMALEGU ---
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 Patient states that her covarrubias is supposed to be changed every 3 weeks and the one currently in has not been changed for 6. Patient states that she is having some lower abdominal pain but believes that will improve when the catheter is changed. Patient denies any dizziness, lightheadedness, nausea, vomiting, fever, chills, blurry vision, double vision, loss of vision, chest pain, difficulty breathing, shortness of breath, back pain, night sweats, syncope or a near syncopal episode, recent trauma or falls, bowel incontinence, bladder incontinence, or any other complaints at this time. Exacerbating factors: none Relieving factors: none Associated symptoms: abdominal pain Treatment prior to arrival: none Related Data Home Medications ?Medication ?Instructions ?Recorded ?Confirmed albuterol sulfate 90 mcg/actuation 2 puff inhalation Q4-6H PRN Dyspnea 11/18/21 aerosol inhaler (ProAir HFA) atorvastatin 10 mg tablet 80 mg PO BEDTIME 11/18/21 clonazepam 1 mg tablet 1 mg PO BID 11/18/21 fluticasone propionate 50 2 spray intranasal DAILY 11/18/21 mcg/actuation nasal spray,suspension lisinopril 40 mg tablet 40 mg PO DAILY 11/18/21 loratadine 10 mg tablet 10 mg PO DAILY 11/18/21 metoprolol tartrate 100 mg tablet 100 mg PO BID 11/18/21 oxycodone-acetaminophen 5 mg-325 1 tab PO Q8H PRN severe pain 11/18/21 mg tablet venlafaxine 150 mg 150 mg PO DAILY 11/18/21 capsule,extended release 24 hr aspirin 81 mg tablet,delayed 81 mg PO DAILY 12/07/23 release (Adult Aspirin Regimen) amlodipine 10 mg tablet (Norvasc) 5 mg 06/11/24 gabapentin 300 mg capsule 300 mg 06/11/24 Previous Rx's ?Medication ?Instructions ?Recorded cephalexin 500 mg capsule 500 mg PO BID 7 days #14 caps 12/02/22 ascorbic acid (vitamin C) 1,000 mg 1,000 mg PO DAILY 90 days #90 tabs 12/07/23 tablet methenamine hippurate 1 gram tablet 1 g PO daily 90 days #90 tabs 12/07/23 nitrofurantoin 100 mg PO Q12H 14 days #28 caps 12/09/23 monohydrate/macrocrystals 100 mg capsule (Macrobid) Allergies Allergy/AdvReac Type Severity Reaction Status Date / Time No Known Allergies Allergy Verified 06/11/24 15:29 Review of Systems Constitutional: Constitutional: Reports no additional constitutional complaints, Denies chills, Denies fever(s) and Denies night sweats Eyes: Eyes: Reports no additional eye complaints, Denies blurry vision, Denies change in vision, Denies diplopia, Denies eye discharge, Denies loss of vision and Denies eye pain ENT: Denies dizziness Cardiovascular: Cardiovascular: Reports no additional cardiovascular complaints, Denies chest pain, Denies lightheadedness, Denies Loss of Consciousness and Denies dyspnea Respiratory: Respiratory: Reports no additional respiratory complaints and Denies dyspnea Gastrointestinal: Gastrointestinal: Reports no additional gastrointestinal complaints, Reports abdominal pain, Denies melena, Denies hematochezia, Denies change in bowel habits and Denies change in stool character Genitourinary: Comments: covarrubias catheter in place that needs changed Musculoskeletal: Musculoskeletal: Reports no additional musculoskeletal complaints, Denies numbness and Denies tingling Neurologic: Denies dizziness, Denies loss of vision, Denies numbness and Denies tingling Psychiatric: Psychiatric: Reports no additional psychiatric complaints Endocrine: Endocrine: Reports no additional endocrine complaints Hematologic/Lymphatic: Hematologic/Lymphatic: Reports no additional hematologic/lymphatic complaints Allergic/Immunologic: Allergic/Immunologic: Reports no additional allergic/immunologic complaints PMFSH Past Medical History Attestation statement: The following information was validated with the patient. Source: old records reviewed and nursing notes reviewed Medical History Hypotonic bladder H/O urinary retention GERD (gastroesophageal reflux disease) Hyperlipidemia HTN (hypertension) PFO (patent foramen ovale) Patellofemoral arthrosis Knee derangement Surgical History History of surgery Social History Social History Alcohol intake: current Alcohol intake frequency: a few times a month Alcohol type: beer Patient Tobacco Use Status: Never used Tobacco Smoked in Last 30 Days: No Use of substances other than those prescribed or required for medical reasons: No Advance Directives: Yes Advance Directives on File: Yes Advance Directives Date on File: 10/27/22 Do you have a plan to hurt others: No Plan Patient : No Physical Exam Vital Signs: Vital Signs: Last Vital Signs Temp 97.9 F 06/11/24 22:26 Pulse 76 06/11/24 22:26 Resp 20 06/11/24 22:26 BP 130/70 06/11/24 22:26 Pulse Ox 94 06/11/24 22:26 O2 Del Method Room Air 06/11/24 22:26 BMI result Body Mass Index 28.8 Const: General: cooperative, no acute distress, alert and awake Nutritional Appearance: well nourished Orientation/consciousness: patient oriented x3 Limitations: no limitations HEENT: Head: Yes normal to inspection and Yes atraumatic Ears: hearing grossly normal bilaterally and external ears normal General nose exam: Normal external nose present, no nasal discharge noted and no epistaxis Face and sinus: Yes normal facial exam, No abrasion and No laceration Mouth: Normal oral and palatal mucosa present, no drooling and no muffled voice Eyes: General: appearance normal, both eyes and all related structures Periorbital: periorbital findings normal Eyelids: Yes eyelids normal Conjunctivae: conjunctivae normal Pupils: Equal, round and reactive pupils present EOM: EOMs intact bilaterally Neck: Neck: Yes normal visual inspection, Yes full ROM and Yes no lymphadenopathy Chest: Chest palpation & inspection: normal inspection of the chest Resp: Effort & Inspection: normal respiratory effort and able to speak in complete sentences GI: Inspection: Yes normal to inspection : Other: covarrubias catheter in place - bag changed before arrival Neuro: General: patient oriented x3 and moves all extremities Cranial nerves: Yes Equal, round and reactive pupils present Cognition (Neuro): normal cognition Extrem: General: Yes normal to inspection, Yes full ROM and Yes capillary refill normal Psych: Appearance: grossly normal Mental Status: mental status grossly normal Affect: normal affect Attitude: cooperative Thought process: Normal thought process present Thought content: Normal thought content present Insight: Good insight present (Psych) Medications Administered Discontinued Medications Generic Name Dose Route Start Last Admin Trade Name Jessi PRN Reason Stop Dose Admin Sodium Chloride 1,000 mls @ 999 mls/hr 06/11/24 17:30 06/11/24 21:15 Ns IV 06/11/24 18:30 Infused .Q1H1M [facility] Infusion Sodium Chloride 1,000 mls @ 999 mls/hr 06/11/24 19:30 06/11/24 23:28 Ns IV 06/11/24 20:30 Infused .Q1H1M [facility] Infusion Oxycodone HCl 10 mg 06/11/24 16:04 06/11/24 16:09 Oxycodone Hcl Immed Release 5 Mg Tablet PO 06/11/24 16:05 10 mg ONCE ONE Administration Medical Decision Making Medical Decision Making [facility] Narrative: Patient is a 58 year old assigned female at with a history of chronic covarrubias catheter use presenting to the emergency department today requesting a covarrubias catheter replacement. Patient's physical exam was as noted in the physical exam portion of this note. Patient's blood work was unremarkable. Patient's urine showed no acute process. I explained my physical exam findings as well as all test results to the patient. I answered all questions asked by the patient. Patient's covarrubias was replaced, without incident. I stressed the importance of the patient taking her medication as directed (either prescribed or as the over the counter packaging recommends). I stressed the importance of the patient following up with her primary care provider. I stressed the importance of the patient returning to the emergency department immediately if her symptoms were to worsen or if she were to develop any dizziness, shortness of breath, difficulty breathing, chest pain, blurry vision, loss of vision, nausea, vomiting, abdominal pain, fever, chills, back pain, or any other complaints. Patient verbalized agreement and understanding with this treatment plan and discharge. Differential Diagnosis Differential Diagnoses: The differential diagnosis associated with the presentation includes Covarrubias catheter change UTI Admission/Observation Consideration of admission/observation: Escalation of care including admission/observation considered Patient would have been admitted to the hospital had her work up had any findings where hospital admission was appropriate and her clinical presentation warranted hospital admission. Lab Data [facility] Lab Attestation statement: I reviewed the patient's lab results. My interpretation of these results are in the MDM Rationale portion of this note. 06/11/24 15:59 06/11/24 15:59 Labs: Lab Results 06/11/24 06/11/24 Range/Units 15:59 22:47 WBC 9.4 (4.8-10.8) X10*3/uL RBC 4.60 (4.20-5.50) X10*6/uL Hgb 13.4 (12.0-16.0) g/dl Hct 39.3 (37.0-47.0) % MCV 85.4 (80.0-98.0) fL MCH 29.1 (27.0-33.0) pg MCHC 34.1 (31.0-35.0) g/dl RDW 12.4 (11.0-16.0) % Plt Count 361 D (160-400) X10*3/uL MPV 9.2 L (9.4-12.3) fL Immature Gran % (Auto) 0.2 (0.0-0.4) % Neut % (Auto) 65.9 (45-73) % Lymph % (Auto) 23.3 (20-40) % [place] % (Auto) 6.2 (2-11) % Eos % (Auto) 3.8 (0-4) % Baso % (Auto) 0.6 (0-2) % Lymph # (Auto) 2.2 (1.2-4.9) X10*3/uL [place] # (Auto) 0.6 (0.1-1.2) X10*3/uL Eos # (Auto) 0.4 (0.0-0.4) X10*3/uL Baso # (Auto) 0.1 (0.0-0.2) X10*3/uL Abs Immat Gran (auto) 0.02 (0.00-0.03) X10*3/uL Absolute Neuts (auto) 6.2 (2.0-8.3) x10*3/uL Absolute Nucleated RBC 0.000 (0.0-0.012) X10*3/uL Nucleated RBC % (auto) 0.0 (0.0-0.2) /100WBC Sodium 140 (135-145) mmol/L Potassium 4.0 (3.3-5.1) mmol/L Chloride 107 (96-108) mmol/L Carbon Dioxide 24 (22-29) mmol/L Anion Gap 13 (12-20) BUN 18 H (9-16) mg/dL Creatinine 0.90 (0.5-1.4) mg/dL Estim Creat Clear Calc 75.6 Estimated GFR > 60 Random Glucose 98 (60-115) mg/dL Calcium 10.2 D (8.4-10.2) mg/dL Total Bilirubin 0.4 (0.0-1.0) mg/dL AST 10 (5-31) U/L ALT 11 (0-31) U/L Alkaline Phosphatase 66 (39-117) U/L Total Protein 7.1 (6.5-8.0) g/dL Albumin 4.2 (3.5-5.0) g/dL Urine Color Dark Yellow Urine Appearance Clear Urine pH 5.5 (5.0-9.0) Ur Specific [place] 1.015 (1.005-1.025) Urine Protein Negative (Neg-Trace) mg/dL Urine Glucose (UA) Negative (Negative) mg/dL Urine Ketones Negative (Negative) mg/dL Urine Blood Negative (Negative) Urine Nitrite Negative (Negative) Ur Leukocyte Esterase Trace H (Negative) Urine RBC 0-2 (0-2) /HPF Urine WBC 6-10 H (0-5) /HPF Ur Squamous Epith Cells 0-2 (0-2) /HPF Urine Bacteria None Seen (None Seen) Hyaline Casts 0-2 (0-2) /LPF Independent Historian Clinical information obtained from an independent historian. History obtained from or confirmed by: EMS (EMS provided additional history and confirmed the history provided by the patient.) Discharge Plan Discharge Clinical Impression: Urinary catheter (Covarrubias) change required Patient Disposition: Home, Self-Care Instructions: Covarrubias Catheter Placement and Care (ED) Additional Instructions: Follow up with your primary care provider. Return to the emergency department immediately if your symptoms worsen or if you develop any dizziness, shortness of breath, difficulty breathing, chest pain, blurry vision, loss of vision, nausea, vomiting, abdominal pain, fever, chills, back pain, or any other complaints. Prescriptions: No Action nitrofurantoin monohyd/m-cryst [Macrobid] 100 mg capsule 100 mg PO Q12H 14 Days Qty: 28 0RF cephalexin 500 mg capsule 500 mg PO BID 7 Days Qty: 14 0RF gabapentin 300 mg capsule 300 mg amlodipine [Norvasc] 10 mg tablet 5 mg loratadine 10 mg tablet 10 mg PO DAILY venlafaxine 150 mg capsule,extended release 24hr 150 mg PO DAILY albuterol sulfate [ProAir HFA] 90 mcg/actuation HFA aerosol inhaler 2 puff inhalation Q4-6H PRN (Reason: Dyspnea) oxycodone-acetaminophen 5-325 mg tablet 1 tab PO Q8H PRN (Reason: severe pain) clonazepam 1 mg tablet 1 mg PO BID fluticasone propionate 50 mcg/actuation spray,suspension 2 spray intranasal DAILY metoprolol tartrate 100 mg tablet 100 mg PO BID lisinopril 40 mg tablet 40 mg PO DAILY atorvastatin 10 mg tablet 80 mg PO BEDTIME aspirin [Adult Aspirin Regimen] 81 mg tablet,delayed release (DR/EC) 81 mg PO DAILY ascorbic acid (vitamin C) 1,000 mg tablet 1,000 mg PO DAILY 90 Days Qty: 90 1RF methenamine hippurate 1 gram tablet 1 g PO daily 90 Days Qty: 90 1RF Referrals: Aliza Paul DO [Primary Care Provider] - Print Language: Serbian
[2024-06-11 16:04] LABS: MANUAL DIFF FLAG NO
[2024-06-11 16:09] LABS: Basophils Absolute Auto 0.1 X10*3/uL (0.0-0.2); Basophils Percent Auto 0.6 % (0-2); Eosinophils Absolute Auto 0.4 X10*3/uL (0.0-0.4); Eosinophils Percent Auto 3.8 % (0-4); Hematocrit 39.3 % (37.0-47.0); Hemoglobin 13.4 g/dl (12.0-16.0); Imm Gran Abs Auto 0.02 X10*3/uL (0.00-0.03); Imm Gran Pct Auto 0.2 % (0.0-0.4); Lymphocytes Absolute Auto 2.2 X10*3/uL (1.2-4.9); Lymphocytes Percent Auto 23.3 % (20-40); Mean Corpuscular HGB Conc 34.1 g/dl (31.0-35.0); Mean Corpuscular Hemoglobin 29.1 pg (27.0-33.0); Mean Corpuscular Volume 85.4 fL (80.0-98.0); Mean Platelet Volume 9.2 fL (9.4-12.3); Monocytes Absolute Auto 0.6 X10*3/uL (0.1-1.2); Monocytes Percent Auto 6.2 % (2-11); Neutrophils Absolute Auto 6.2 x10*3/uL (2.0-8.3); Neutrophils Percent Auto 65.9 % (45-73); Platelet Count 361 X10*3/uL (160-400); Red Cell Distribution Width 12.4 % (11.0-16.0); White Blood Count 9.4 X10*3/uL (4.8-10.8)
[2024-06-11] MEDS: oxyCODONE HCl Immed Release 5 MG TABLET 10 MG PO (16:09)
--- NOTE | 2024-06-11 16:09 | PC.NURSE ---
pt reporting increase in pain - requesting medication. provider notified/aware. medication administered per provider order. effectiveness pending.
--- NOTE | 2024-06-11 16:18 | PC.NURSE ---
bladder scan performed. 0ml detected. pt provided w/ large cup of water in attempts to obtain urine sample. plan of care ongoing.
[2024-06-11 16:22] LABS: Alanine Aminotransferase 11 U/L (0-31); Albumin Level 4.2 g/dL (3.5-5.0); Alkaline Phosphatase 66 U/L (39-117); Anion Gap 13 (12-20); Aspartate Amino Transferase 10 U/L (5-31); Bilirubin Total 0.4 mg/dL (0.0-1.0); Blood Urea Nitrogen 18 mg/dL (9-16); Calcium 10.2 mg/dL (8.4-10.2); Carbon Dioxide 24 mmol/L (22-29); Chloride 107 mmol/L (96-108); Creatinine Clr Calc Pharmacy 75.6; Estimated Glomerular Filt Rate > 60; Glucose Random 98 mg/dL (60-115); Sodium 140 mmol/L (135-145); Total Protein 7.1 g/dL (6.5-8.0)
--- OUTSIDE RECORDS SUMMARY | 2024-06-11 16:32 | XMS_ITS | Continuity of Care Document ---
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 Name Role Phone Aliza Paul DO Primary Care Physician Encounter [facility] [place] Date(s): 10/14/22 - 10/15/[address] [address]- Encounter Diagnosis Humeral head fracture(Final) - 10/14/22 Fall(Final) - 10/14/22 Alcohol intoxication(Final) - 10/14/22 UTI (urinary tract infection)(Final) - 10/14/22 Humeral fracture(Final) - 10/15/22 Discharge Disposition: A-D/C Home Attending Physician: Megan Roque DO Admitting Physician: Megan Roque DO Referring Physician: Not on Staff, Referring MD Allergies, Adverse Reactions, Alerts No Known Allergies Immunizations Given and Recorded Vaccine Date Status Refusal Reason tetanus/diphtheria/pertussis, acel(Tdap) 09/06/22 Recorded tetanus/diphtheria/pertussis, acel(Tdap) 12/16/21 Recorded Medications amitriptyline 25 mg oral tablet 1 tablet = 25 mg, By Mouth, Daily at bedtime, 0 Refills, Maintenance Start Date: 08/23/13 Status: Ordered cephalexin monohydrate 250 mg oral capsule 1 capsule = 250 mg, By Mouth, 4 times a day, for 5 days, # 20 capsule, 0 Refills, Acute 10/20/22 14:00:00 EST, 10/15/22 14:00:00 EST, Capsule, Partial fill upon patient request if the prescription isfor a schedule II opioid drug. Start Date: 10/15/22 Stop Date: 10/20/22 Status: Ordered Fioricet Tablet 2 tablet, By Mouth, Every 4 hours, 0 Refills, Maintenance Start Date: 08/23/13 Status: Ordered Flexeril Tablet Maintenance, 08/23/13 8:12:57 Start Date: 08/23/13 Status: Ordered gabapentin 300 mg oral capsule 600 mg, Capsule, By Mouth, 10/15/22 15:00:00 EST Start Date: 10/15/22 Stop Date: 10/15/22 Status: Completed Hydrochlorothiazide By Mouth, Daily, 0 Refills, Maintenance Start Date: 08/23/13 Status: Ordered ibuprofen 600 mg oral tablet 1 tablet = 600 mg, By Mouth, 4 times a day, PRN Pain, # 40 tablet, 0 Refills, Maintenance, Tablet Start Date: 09/04/13 Status: Ordered ibuprofen 600 mg oral tablet 600 mg, 1, tablet, By Mouth, 3 times a day, # 90 tablet, Refills 0, Tot. Refills 0, Acute 05/04/23 21:12:00 EDT, 05/03/22 21:11:00 EDT, Route to Pharmacy Electronically, [facility], Partial fill upon patient request if the prescri... Start Date: 05/03/22 Stop Date: 05/04/23 Status: Ordered KlonoPIN 1 mg oral tablet 1 tablet = 1 mg, By Mouth, 2 times a day, 0 Refills, Maintenance, 02/24/21 14:18:00 EDT, Tablet, Partial fill upon patient request if the prescription is for a schedule II opioid drug. Start Date: 02/24/21 Status: Ordered Lisinopril By Mouth, Daily, 0 Refills, Maintenance Start Date: 08/23/13 Status: Ordered Metoprolol Tartrate 50 mg oral tablet 1 tablet = 50 mg, By Mouth, 2 times a day, # 60 tablet, 0 Refills, Maintenance, Tablet Start Date: 08/23/13 Status: Ordered morphine 15 mg oral tablet, immediate release 1 tablet = 15 mg, By Mouth, Every 4 hours, PRN as needed for pain, for 3 days, # 10 tablet, 0 Refills, Acute 10/18/22 13:57:00 EST, 10/15/22 13:57:00 EST, Tablet, Partial fill upon patient request ifthe prescription is for a schedule II opioid drug. Start Date: 10/15/22 Stop Date: 10/18/22 Status: Ordered Norvasc By Mouth, Daily, 0 Refills, Maintenance Start Date: 08/23/13 Status: Ordered oxycodone 5 mg oral tablet 1 tablet = 5 mg, By Mouth, Every 6 hours, PRN for pain, # 10 tablet, 0 Refills, Maintenance, Tablet Start Date: 09/27/13 Status: Ordered oxycodone 5 mg oral tablet 1 tablet = 5 mg, By Mouth, Every 4 hours, PRN for pain, # 12 tablet, 0 Refills, Maintenance, Tablet Start Date: 09/04/13 Status: Ordered oxycodone 5 mg oral tablet 1 tablet = 5 mg, By Mouth, Every 4 hours, PRN for pain, # 30 tablet, 0 Refills, Maintenance, Tablet Start Date: 09/18/13 Status: Ordered oxycodone 5 mg oral tablet 2 tablet = 10 mg, By Mouth, Every 4 hours, PRN for pain, # 15 tablet, 0 Refills, Maintenance, Tablet Start Date: 09/08/13 Status: Ordered Paxil 20 mg oral tablet 1 tablet = 20 mg, By Mouth, Daily, 0 Refills, Maintenance Start Date: 08/23/13 Status: Ordered Protonix 40 mg oral delayed release tablet 1 tablet = 40 mg, By Mouth, Daily, 0 Refills, Maintenance Start Date: 08/23/13 Status: Ordered Topamax 50 mg oral tablet 1 tablet = 50 mg, By Mouth, Daily at bedtime, # 30 tablet, 4 Refills, Maintenance, 10/08/17 12:16:01, starting for migraine Start Date: 10/08/17 Stop Date: 03/07/18 Status: Ordered Trazodone By Mouth, 0 Refills, Maintenance Start Date: 08/23/13 Status: Ordered Vicodin 5 mg-300 mg oral tablet 1 tablet, By Mouth, Every 6 hours, 0 Refills, Maintenance Start Date: 08/23/13 Status: Ordered Vistaril Capsule 0 Refills, Maintenance Start Date: 08/23/13 Status: Ordered Xanax Tablet By Mouth, 3 times a day, PRN, Maintenance, as needed for anxiety, 08/23/13 8:38:27 Start Date: 08/23/13 Status: Ordered Zofran 4 mg oral tablet 1 tablet = 4 mg, By Mouth, Every 8 hours, # 9 tablet, 0 Refills, Maintenance, 12/26/20 16:59:00 EST, Tablet, [facility], Partial fill upon patient request if the prescription is for a schedule II opioid drug. Start Date: 12/26/20 Stop Date: 12/29/20 Status: Ordered Problem List Condition Confirmation Course Effective Dates Status H ealth Status Informant Anxiety Confirmed Active Cerebrovascular disease Confirmed Active Gastroesophageal reflux disease Confirmed Active Heart disease Confirmed Active Hyperlipidemia Confirmed Active Hypertensive disorder Confirmed Active Migraines Confirmed Active Obese class II Confirmed Active Results Radiology Reports * Exam Date Time Procedure Performing Provider Status 10/14/22 6:08 AM Shoulder Min 2 Views Right Vinh Robledo i; Auth (Verified) Notes: (Shoulder Min 2 Views Right) Reason For Exam: with Pain;Trauma RESULT: Shoulder Min 2 Views Right Shoulder Min 2 Views Right INDICATION: Hx of Present Illness: R shoulder pain; Reason: Trauma; with Pain; Clinical Question(s): Fracture TECHNIQUE: AP and scapular Y views.. COMPARISON: None. FINDINGS: Mildly displaced comminuted fracture humeral neck. No fracture clavicle, scapula, or visualized upper ribs. The glenohumeral joint it is not dislocated. No pre-existing arthritic change. The acromioclavicular joint is normal. There is no soft tissue calcification to suggest calcific tendinitis IMPRESSION: 1. Comminuted mildly displaced fracture humeral neck without associated dislocation. 2. No other fracture. WSN: [id number] Ordering Physician: Marita Blanchard Dictated By: Scar Durham MD Dictated Date/Time: 10/14/22 8:30 am Reviewed By: Scar Durham MD Signed By: Scar Durham MD Signed Date/Time: 10/14/22 8:30 am Transcribed By: SHERON Transcribed Date/Time: 10/14/22 8:29 am * Exam Date Time Procedure Performing Provider Status 10/14/22 5:[address] Cervical Spine W/O Contrast Patricio Fernandez; Auth (Verified) Notes: (CT Cervical Spine W/O Contrast) Reason For Exam: Neck trauma, dangerous injury mechanism;Other: RESULT: CT Cervical Spine W/O Contrast Please refer to CT head. WSN: [id number] Ordering Physician: Marita Blanchard Dictated By: Scar Durham MD Dictated Date/Time: 10/14/22 7:43 am Reviewed By: Scar Durham MD Signed By: Scar Durham MD Signed Date/Time: 10/14/22 7:43 am Transcribed By: SHERON Transcribed Date/Time: 10/14/22 7:43 am * Exam Date Time Procedure Performing Provider Status 10/14/22 5:[address] Head/Brain W/O Contrast Harrington nis; Auth (Verified) Notes: (CT Head/Brain W/O Contrast) Reason For Exam: Other: RESULT: CT Head/Brain W/O Contrast CT Head/Brain W/O Contrast CLINICAL INDICATION: Injured in fall on her motorized wheelchair. Right shoulder and neck pain following trauma. PRIOR EXAMS: 05/03/2022. TECHNIQUE: Incremental CT without contrast through the head was formatted in axial and coronal plane. Spiral CT without contrast through the cervical spine was formatted in 3 planes. Automatic tube modulation was used for the cervical spine and iterative dose reconstruction was used for both the head and cervical spine to optimize scan parameters and image quality. RADIATION DOSE PARAMETERS: CTDIvol Body: 21.10 mGy, DLP Body: 458 mGy*cm. CTDIvol Head: 40.20 mGy, DLP Head: 671 mGy*cm. FINDINGS: BRAIN There is no infarct. There is no intracerebral hemorrhage. There is no mass. VENTRICLES AND SULCI: The ventricles and sulci are symmetrical and normal. WHITE MATTER: Small amount of white matter abnormality. EXTRA AXIAL SPACES: There is no abnormal epidural, subdural, or subarachnoid blood or fluid. SKULL: There is no skull fracture.. PARANASAL SINUSES: Clear. TEMPORAL BONES: The mastoid air cells are clear, as are the middle ear cavities. CERVICAL VERTEBRAL BODIES: There is no fracture. There is no focal bony lesion.. ALIGNMENT OF CERVICAL SPINE: The cervical vertebral bodies are in normal alignment.. CERVICAL DEGENERATIVE CHANGES: Advanced degenerative change at multiple levels. Severe Central spinal stenosis C5-C6 and mild central spinal stenosis C6-C7. LUNG APICES: No pneumothorax. IMPRESSION: HEAD 1. No acute intracranial abnormality.. 2. No skull fracture. CERVICAL SPINE: 1. There is no fracture. There is no focal bony lesion. 2. Normal alignment. 3. Multi level advanced degenerative changes including severe central spinal stenosis C5-C6. WSN: [id number] Ordering Physician: Marita Blanchard Dictated By: Scar Durham MD Dictated Date/Time: 10/14/22 7:26 am Reviewed By: Scar Durham MD Signed By: Scar Durham MD Signed Date/Time: 10/14/22 7:26 am Transcribed By: SHERON Transcribed Date/Time: 10/14/22 7:20 am Vital Signs Most recent to oldest [Reference Range]: 1 2 3 Oxygen Saturation [94-100 %] 95 % (10/15/22 12:34 PM) 96 % (10/15/22 6:17 AM) 96 % (10/15/22 4:51 AM) Pulse Rate [55-90 bpm] 75 bpm (10/15/22 12:35 PM) 75 bpm (10/15/22 12:34 PM) 64 bpm (10/15/22 9:27 AM) Blood Pressure [90-138/55-84 mm Hg] 185/84mm Hg *H* (10/15/22 12:35 PM) 185/84mm Hg *H* (10/15/22 12:34 PM) 161/72mm Hg *H* (10/15/22 9:27 AM) Respiratory Rate [16-30 br/min] 16 br/min (10/15/22 2:42 PM) 16 br/min (10/15/22 12:35 PM) 16 br/min (10/15/22 12:34 PM) Temperature [96.8-100.4 DegF] 98.0 DegF (10/15/22 12:34 PM) 98.6 DegF (10/14/22 11:32 PM) 99.0 DegF (10/14/22 4:54 PM) Liters per Minute 2 L/min (10/14/22 2:04 PM) 2 L/min (10/14/22 9:27 AM) Mode of Delivery (Oxygen) Room air (10/15/22 12:34 PM) Room air (10/15/22 6:17 AM) Room air (10/15/22 4:51 AM) Temperature Route Oral (10/15/22 12:34 PM) Oral (10/14/22 11:32 PM) Oral (10/14/22 4:54 PM) Social History Social History Type Response Smoking Status Never (less than 100 in lifetime) entered on: 12/26/20 Sex Note * Megan Roque DO: PERFORM Megan Roque DO: PERFORM, SIGN Megan Roque DO: SIGN, VERIFY Megan Roque DO: VERIFY Event Display: Patient Education Handout Authored Date: * Megan Roque DO: PERFORM Event Display: Patient Education Leaflets Authored Date: Upper Extremity Fracture ?? [id number] Upper Extremity Fracture You have a break (fracture) of the arm, wrist, or hand. This may be a small crack in the bone. Or it may be a major break, with the broken parts pushed out of position. Most fractures will heal without surgery. But you may need surgery if the bones are far out of place or if the break is near the elbow. Surgery is done by an orthopedic surgeon. This is a surgeon who specializes in treating bone, muscle, joint, and tendon problems. Non-surgical treatment is with a special sling called a shoulder immobilizer, or a splint or cast, depending on the type of fracture and where the fracture is located. This fracture takes 4 to 6 weeks or longer to heal. The cast may need to be changed in 2 to 3 weeks as swelling goes down. Home care Follow these guidelines when caring for yourself: ??? If you were given a shoulder immobilizer, leave it in place. This will support the injured arm at your side. This is the best position for bone healing. The shoulder immobilizer can be adjusted. If it becomes loose, adjust it so that your forearm is level with the ground (horizontal). Your hand should be level with your elbow. ??? Put an ice pack on the injured area. Do this for 20 minutes every 1 to 2 hours the first day for pain relief. You can make an ice pack by wrapping a plastic bag of ice cubes in a thin towel. As the ice melts, be careful that the cast/splint/sling doesn???t get wet. You can put the ice pack inside the sling and directly over the splint or cast. Continue using the ice pack 3 to 4 times a day for the next 2 days. Then use the ice pack as needed to ease pain and swelling. ??? Keep the cast, splint, or sling completely dry at all times. Bathe with your cast, splint, or sling out of the water. Protect it with alarge plastic bag, rubber-banded or taped at the top end. If a fiberglass cast, splint, or sling gets wet, you can dry it with a power wheelchair mechanic. ??? You may use acetaminophen or ibuprofen to control pain, unless another pain medicine was prescribed. If you have chronic liver or kidney disease, talk with your healthcare provider before using these medicines. Also talk with your provider if you???ve had a stomach ulcer or gastrointestinal bleeding. ??? Don???t put creams or objects under the cast if you have itching. ?? Follow-up care Follow up with your healthcare provider as advised. This is to make sure the bone is healing the way it should. X-rays may be taken. You will be told of any new findings that may affect your care. ?? When to get medical advice Call your healthcare provider right away if any of these occur: ??? The cast or splint cracks ??? The plaster cast or splint becomes wet or soft ??? The fiberglass cast or splint stays wet for more than 24 hours ??? Bad odor from the cast or wound fluid stains the cast ??? Tightness or pain under the cast or splint gets worse ??? Fingers become swollen, cold, blue, numb, or tingly ??? You can???tmove your fingers ??? Skin around cast or splint becomes red or irritated ??? Fever of 100.4??F (38??C) or higher, or as advised by your provider ??? Chills ?? Last Reviewed Date: 2022 ?? [id number] [employer]. All rights reserved. This information is not intended as a substitute for professional medical care. Always follow your healthcare professional's instructions. ?? CT Head WO contrast * [facility] , CIS S: TRANSCRIBE Herminio VIERA, Scar D: VERIFY Event Display: Result: Authored Date: [id number] CT Head/Brain W/O Contrast CLINICAL INDICATION: Injured in fall on her motorized wheelchair. Right shoulder and neck pain following trauma. PRIOR EXAMS: 05/03/2022. TECHNIQUE: Incremental CT without contrast through the head was formatted in axial and coronal plane. Spiral CT without contrast through the cervical spine was formatted in 3 planes. Automatic tube modulation was used for the cervical spine and iterative dose reconstruction was used for both the head and cervical spine to optimize scan parameters and image quality. RADIATION DOSE PARAMETERS: CTDIvol Body: 21.10 mGy, DLP Body: 458 mGy*cm. CTDIvol Head: 40.20 mGy, DLP Head: 671 mGy*cm. FINDINGS: BRAIN There is no infarct. There is no intracerebral hemorrhage. There is no mass. VENTRICLES AND SULCI: The ventricles and sulci are symmetrical and normal. WHITE MATTER: Small amount of white matter abnormality. EXTRA AXIAL SPACES: There is no abnormal epidural, subdural, or subarachnoid blood or fluid. SKULL: There is no skull fracture.. PARANASAL SINUSES: Clear. TEMPORAL BONES: The mastoid air cells are clear, as are the middle ear cavities. CERVICAL VERTEBRAL BODIES: There is no fracture. There is no focal bony lesion.. ALIGNMENT OF CERVICAL SPINE: The cervical vertebral bodies are in normal alignment.. CERVICAL DEGENERATIVE CHANGES: Advanced degenerative change at multiple levels. Severe Central spinal stenosis C5-C6 and mild central spinal stenosis C6-C7. LUNG APICES: No pneumothorax. IMPRESSION: HEAD 1. No acute intracranial abnormality.. 2. No skull fracture. CERVICAL SPINE: 1. There is no fracture. There is no focal bony lesion. 2. Normal alignment. 3. Multi level advanced degenerative changes including severe central spinal stenosis C5-C6. WSN: [id number] Ordering Physician: Marita Blanchard Dictated By: Scar Durham MD Dictated Date/Time: 10/14/22 7:26 am Reviewed By: Scar Durham MD Signed By: Scar Durham MD Signed Date/Time: 10/14/22 7:26 am Transcribed By: SHERON Transcribed Date/Time: 10/14/22 7:[address] Cervical spine WO contrast * [employer] , CIS S: TRANSCRIBE Scar Durham MD: VERIFY Event Display: Result: Authored Date: [id number] head. WSN: [id number] Ordering Physician: Marita Blanchard Dictated By: Scar Durham MD Dictated Date/Time: 10/14/22 7:43 am Reviewed By: Scar Durham MD Signed By: Scar Durham MD Signed Date/Time: 10/14/22 7:43 am Transcribed By: SHERON Transcribed Date/Time: 10/14/22 7:43 am XR Shoulder - right GE 2 Views * [employer] , CIS S: TRANSCRIBE Scar Durham MD: VERIFY Event Display: Result: Authored Date: Shoulder Min 2 Views Right INDICATION: Hx of Present Illness: R shoulder pain; Reason: Trauma; with Pain; Clinical Question(s): Fracture TECHNIQUE: AP and scapular Y views.. COMPARISON: None. FINDINGS: Mildly displaced comminuted fracture humeral neck. No fracture clavicle, scapula, or visualized upper ribs. The glenohumeral joint it is not dislocated. No pre-existing arthritic change. The acromioclavicular joint is normal. There is no soft tissue calcification to suggest calcific tendinitis IMPRESSION: 1. Comminuted mildly displaced fracture humeral neck without associated dislocation. 2. No other fracture. WSN: [id number] Ordering Physician: Marita Blanchard Dictated By: Scar Durham MD Dictated Date/Time: 10/14/22 8:30 am Reviewed By: Scar Durham MD Signed By: Scar Durham MD Signed Date/Time: 10/14/22 8:30 am Transcribed By: SHERON Transcribed Date/Time: 10/14/22 8:29 am Patient Care team information Care Team Personnel Name: Aliza Paul DO Position: [facility] Outreach Member Role: PCP Address: Address: [address] [place] [id number] Name: *[facility], ED Attending Position: [facility] ED Attendings Patient Name: Kathy Garcia Position: [facility] ED TA ADELITA Name: Taylor Garcia RN Position: [facility] ED RN W/OE and Tasks Member Role: Patient Care Provider Name: Megan Roque DO Position: [facility] ED Medicine MD Member Role: Admitting Physician Address: Address: [address] [place] [id number]- Care Team Related Persons Name: ENID GUILLERMO Address: home [address] [facility] [address] [place] [address] Name: JACLYN GARRIDO Address: [place] [address] Name: LB PELAYO Address: home [address] [address]
--- OUTSIDE RECORDS SUMMARY | 2024-06-11 16:32 | XMS_ITS | Continuity of Care Document ---
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 Date(s): 02/18/24 - 04/30/[address] [address]- Attending Physician: Nai VIERA, Andres Ledezma Referring Physician: Susan Lewis Allergies, Adverse Reactions, Alerts No Known Allergies Immunizations Given and Recorded Vaccine Date Status Refusal Reason SARS-CoV-2 mRNA ([id number]) vax 10/17/22 Given Rabies vaccine,purified chick embryo 09/06/22 Rodolfo rded tetanus/diphtheria/pertussis, acel(Tdap) 09/06/22 Recorded tetanus/diphtheria/pertussis, acel(Tdap) 12/16/21 Recorded pneumococcal 23-valent vaccine 12/16/21 Recorded influenza virus vaccine, inactivated 09/23/17 Rodolfo rded influenza virus vaccine, inactivated 08/16/14 Rodolfo rded Medications acetaminophen 325 mg oral tablet 3 tablets, By Mouth, Every 6 hours, PRN, Refills 0, Maintenance, as needed for pain/fever, 04/27/2411:44:00 EDT, Partial fill upon patient request if the prescription is for a schedule II opioid drug. Start Date: 04/27/24 Status: Ordered acetaminophen 325 mg oral tablet 3 tablets, By Mouth, 3 times a day, Refills 0, Maintenance, 04/27/24 11:45:00 EDT, Partial fill upon patient request if the prescription is for a schedule II opioid drug. Start Date: 04/27/24 Status: Ordered amoxicillin-clavulanate 875 mg-125 mg oral tablet 1 tablet, By Mouth, Every 12 hours, 0 Refills, Maintenance, 04/27/24 11:46:00 EDT, Tablet, Partial fill upon patient request if the prescription is for a schedule II opioid drug. Start Date: 04/27/24 Stop Date: 05/04/24 Status: Ordered ARIPiprazole 10 mg oral tablet 10 mg, 1, tablet, By Mouth, Daily, # 30 tablet, Refills 0, Maintenance, 03/12/24 22:54:00 EDT, Partial fill upon patient request if the prescription is for a schedule II opioid drug. Start Date: 03/12/24 Status: Ordered atorvastatin 20 mg oral tablet 1 tablet = 20 mg, By Mouth, Daily, # 30 tablet, 0 Refills, Maintenance, 10/16/22 16:23:00 EST, Tablet, Partial fill upon patient request if the prescription is for a schedule II opioid drug. Start Date: 10/16/22 Status: Ordered baclofen 5 mg oral tablet 1 tablet = 5 mg, By Mouth, 3 times a day, 0 Refills, Maintenance, 04/27/24 11:48:00 EDT, Tablet, Partial fill upon patient request if the prescription is for a schedule II opioid drug. Start Date: 04/27/24 Status: Ordered bisacodyl 10 mg rectal suppository 1 supp = 10 mg, Rectally, Daily, PRN for constipation, 0 Refills, Maintenance, 04/27/24 11:49:00 EDT, Suppository, Partial fill upon patient request if the prescription is for a schedule II opioid drug. Start Date: 04/27/24 Status: Ordered cetirizine 10 mg oral tablet TAKE ONE TABLET BY MOUTH EVERY DAY Start Date: 02/04/24 Status: Ordered famotidine 20 mg oral tablet 40 mg, 2, tablet, By Mouth, Daily, Refills 0, Maintenance, 10/20/22 14:06:00 EST, Partial fill uponpatient request if the prescription is for a schedule II opioid drug. Start Date: 10/20/22 Status: Ordered Fleet Enema 19 gm-7 gm rectal enema 1 each, Rectally, Once, PRN for constipation, 0 Refills, Maintenance, 04/27/24 11:50:00 EDT, Enema,Partial fill upon patient request if the prescription is for a schedule II opioid drug. Start Date: 04/27/24 Status: Ordered gabapentin 300 mg oral capsule 900 mg, By Mouth, 3 times a day, Refills 0, Maintenance, 04/11/24 11:09:00 EDT, Partial fill upon patient request if the prescription is for a schedule II opioid drug. Start Date: 04/11/24 Status: Ordered hydrochlorothiazide 25 mg oral tablet 25 mg, 1, tablet, By Mouth, Daily, Refills 0, Maintenance, 04/27/24 11:50:00 EDT, Partial fill uponpatient request if the prescription is for a schedule II opioid drug. Start Date: 04/27/24 Status: Ordered HYDROmorphone 4 mg oral tablet 1 tablet = 4 mg, By Mouth, Every 4 hours, PRN as needed for pain, 0 Refills, Maintenance, 04/27/24 11:51:00 EDT, Tablet, Partial fill upon patient request if the prescription is for a schedule II opioid drug. Start Date: 04/27/24 Status: Ordered hydrOXYzine hydrochloride 50 mg oral tablet 1 tablet = 50 mg, By Mouth, Daily, PRN for anxiety, 0 Refills, Maintenance, 04/27/24 11:53:00 EDT, Tablet, Partial fill upon patient request if the prescription is for a schedule II opioid drug. Start Date: 04/27/24 Status: Ordered hydrOXYzine hydrochloride 50 mg oral tablet 1 tablet = 50 mg, By Mouth, 4 times a day, 0 Refills, Maintenance, 04/27/24 11:54:00 EDT, Tablet, Partial fill upon patient request if the prescription is for a schedule II opioid drug. Start Date: 04/27/24 Status: Ordered ibuprofen 600 mg oral tablet 600 mg, By Mouth, Every 6 hours, PRN, Refills 0, Maintenance, Pain , Mild, 04/11/24 11:09:00 EDT, Partial fill upon patient request if the prescription is for a schedule II opioid drug. Start Date: 04/11/24 Status: Ordered levoFLOXacin 750 mg oral tablet 1 tablet = 750 mg, By Mouth, Every 24 hours, 0 Refills, Maintenance, 04/27/24 11:55:00 EDT, Tablet,Partial fill upon patient request if the prescription is for a schedule II opioid drug. Start Date: 04/27/24 Stop Date: 04/29/24 Status: Ordered Lidoderm 5% film 1 patch, Topically, Daily, LEAVE ON FOR 12 HOURS, THEN OFF FOR 12 HOURS DIRECTED. Start Date: 10/16/22 Status: Ordered lisinopril 40 mg oral tablet TAKE ONE TABLET EVERY MORNING Start Date: 02/04/24 Status: Ordered Milk of Magnesia 8% oral suspension 30 mL = 2.4 Gm, By Mouth, Daily at bedtime, PRN for constipation, 0 Refills, Maintenance, 04/27/24 11:57:00 EDT, Suspension, Partial fill upon patient request if the prescription is for a schedule IIopioid drug. Start Date: 04/27/24 Status: Ordered MiraLax Powder 1 pack/packet = 17 Gm, By Mouth, Daily, 0 Refills, Maintenance, 03/23/24 9:00:00 EDT, Powder, Partial fill upon patient request if the prescription is for a schedule II opioid drug. Start Date: 03/23/24 Status: Ordered Narcan 4 mg/0.1 mL nasal spray 1 sprays = 4 mg, Nares, Both, Once, 0 Refills, Maintenance, 04/27/24 11:58:00 EDT, Partial fill upon patient request if the prescription is for a schedule II opioid drug. Start Date: 04/27/24 Status: Ordered Probiotic Capsule Probiotic Capsule, 1, capsule, By Mouth, 2 times a day, Refills 0, Maintenance, 04/27/24 11:59:00 EDT, Supply Start Date: 04/27/24 Stop Date: 04/30/24 Status: Ordered Proventil HFA 90 mcg/inh inhalation aerosol with adapter 2, puffs, Inhalation, Every 4 hours Start Date: 10/16/22 Status: Ordered senna 187 mg oral tablet 2 tablet = 17.2 mg, By Mouth, Daily, 0 Refills, Maintenance, 03/23/24 9:00:00 EDT, Tablet, Partial fill upon patient request if the prescription is for a schedule II opioid drug. Start Date: 03/23/24 Status: Ordered venlafaxine 75 mg oral capsule, extended release 75 mg, 1, capsule, By Mouth, Daily, # 30 capsule, Refills 0, Maintenance, 03/12/24 23:23:00 EDT, Partial fill upon patient request if the prescription is for a schedule II opioid drug. Start Date: 03/12/24 Status: Ordered Vitamin C 500 mg oral tablet 1 tablet = 500 mg, By Mouth, Daily, # 30 tablet, 0 Refills, Maintenance, 10/16/22 16:23:00 EST, Tablet, Partial fill upon patient request if the prescription is for a schedule II opioid drug. Start Date: 10/16/22 Status: Ordered Problem List Condition Confirmation Course Effective Dates Status H ealth Status Informant Anxiety Confirmed Active Cerebrovascular disease Confirmed Active Gastroesophageal reflux disease Confirmed Active Heart disease Confirmed Active History of stroke with residual deficit Confirmed Active History of cervical discectomy Confirmed Active Hyperlipidemia Confirmed Active HLD (hyperlipidemia) Confirmed Active Hypertensive disorder Confirmed Active HTN (hypertension) Confirmed Active Migraines Confirmed Active Obese class I Confirmed Active Chronic indwelling Quinonez catheter Confirmed Active Social History Social History Type Response Smoking Status Never (less than 100 in lifetime) entered on: 12/26/20 Sex Implantable Device List Procedure Provider Procedure Date Device Type Site Discectomy and Fusion Anterior Cervical Oh Quinn VIERA 03/20/24 Unknown Cervical Spine Device Identifier Serial Number Lot or Batch Number Manufacturing Date Expiration Date Distinct Identification Code MRI Safety Implantable Status Assigning Authority Unknown Unknown Unknown Unknown 01/16/27 Unknown Unknown Active Unk nown Patient Care team information Care Team Personnel Name: Francesca Galvan RN Position: [facility] RN Member Role: Primary Care Nurse Name: Yohana Coffey RN Position: [facility] RN Member Role: Primary Care Nurse Name: Patricia Beltran RN Position: [facility] RN Member Role: Primary Care Nurse Name: Parvin Lema RN Position: [facility] RN Member Role: Primary Care Nurse Name: Khoa Marcelo RN Position: [facility] RN Member Role: Primary Care Nurse Name: Oscar Velasquez RN Position: [facility] RN Supv Member Role: Primary Care Nurse Name: Nancy Rivera RN Position: [facility] RN Member Role: Primary Care Nurse Name: Ericka Crane RN Position: [facility] RN Member Role: Primary Care Nurse Name: Patricia Han RN Position: [facility] RN Member Role: Primary Care Nurse Name: Angie Green LPN Position: [facility] RN Member Role: Primary Care Nurse Name: Aliza Paul DO Position: S Outreach Member Role: PCP Address: Address: [address] [place] [id number] Name: Kyleigh Blount RN Position: [facility] RN Member Role: Primary Care Nurse Name: Parvin Walton RN Position: [facility] RN Member Role: Primary Care Nurse Name: Mere Varags RN Position: [facility] RN Member Role: Primary Care Nurse Name: Walter Powell RN Position: [facility] RN Member Role: Primary Care Nurse Name: Ines Plasencia RN Position: [facility] RN Member Role: Primary Care Nurse Name: Joselyn Lafleur RN Position: [facility] RN Member Role: Primary Care Nurse Name: Manan Summers RN Position: [facility] RN Member Role: Primary Care Nurse Name: Tania Sanders RN Position: [facility] RN Member Role: Primary Care Nurse Name: Hattie Weller RN Position: [facility] RN Member Role: Primary Care Nurse Name: Yesika Paris RN Position: [facility] RN Member Role: Primary Care Nurse Name: Janine Carranza RN Position: [facility] RN Member Role: Primary Care Nurse Name: Estefani Sterling RN Position: [facility] RN Member Role: Primary Care Nurse Name: Rosi Mosqueda LPN Position: [facility] RN Member Role: Primary Care Nurse Name: Jessica Booth LPN Position: [facility] RN Member Role: Primary Care Nurse Care Team Related Persons Name: JACLYN VERDE Address: home [address] [place] [address] Name: JACLYN GARRIDO Address: home [place], [place] Name: LB PELAYO Address: home [address] [place] [address] [address] [place], [place]
--- OUTSIDE RECORDS SUMMARY | 2024-06-11 16:32 | XMS_ITS | Continuity of Care Document ---
Author Organization [facility] ter Address [address] [place] [id number] Care Team Providers Care Social Secretary Name Role Phone Davidluz maria Aliza SMALL Primary Care Physician [place] [facility] [place] - 02/10/[address] [id number] Discharge Disposition: Transferred to short-term general hospit Attending Physician: Patti Abernathy MD Admitting Physician: Pamela VIERA, Marva Jacobo Referring Physician: Not on Staff, Referring MD Allergies, Adverse Reactions, Alerts No Known Allergies Immunizations Given and Recorded Vaccine Date Status Refusal Reason SARS-CoV-2 mRNA ([id number]) vax 10/17/22 Given Rabies vaccine,purified chick embryo 09/06/22 Rodolfo rded tetanus/diphtheria/pertussis, acel(Tdap) 09/06/22 Recorded tetanus/diphtheria/pertussis, acel(Tdap) 12/16/21 Recorded pneumococcal 23-valent vaccine 12/16/21 Recorded influenza virus vaccine, inactivated 09/23/17 Rodolfo rded influenza virus vaccine, inactivated 08/16/14 Rodolfo rded Medications acetaminophen 650 mg oral tablet, extended release 1 tablet = 650 mg, By Mouth, 2 times a day, NEEDED FOR PAIN OR FEVER Start Date: 10/16/22 Status: Ordered ARIPiprazole 5 mg oral tablet 5 mg, 1, tablet, By Mouth, Daily at bedtime Start Date: 10/16/22 Status: Ordered Aspirin Enteric Coated 81 mg oral delayed release tablet TAKE ONE TABLET BY MOUTH EVERY DAY Start Date: 02/04/24 Status: Ordered atorvastatin 20 mg oral tablet 1 tablet = 20 mg, By Mouth, Daily, # 30 tablet, 0 Refills, Maintenance, 10/16/22 16:23:00 EST, Tablet, Partial fill upon patient request if the prescription is for a schedule II opioid drug. Start Date: 10/16/22 Status: Ordered baclofen 10 mg oral tablet 10 mg, 1, tablet, By Mouth, 3 times a day, PRN, Spasm Start Date: 10/16/22 Status: Ordered cetirizine 10 mg oral tablet TAKE ONE TABLET BY MOUTH EVERY DAY Start Date: 02/04/24 Status: Ordered cholecalciferol (vitamin D3) 50 mcg (2,000 unit) capsule TAKE ONE CAPSULE EVERY DAY Start Date: 10/16/22 Status: Ordered diclofenac 1% topical gel = 2 Gm, Topically, 2 times a day Start Date: 10/16/22 Status: Ordered famotidine 20 mg oral tablet 40 mg, 2, tablet, By Mouth, Daily, Refills 0, Maintenance, 10/20/22 14:06:00 EST, Partial fill uponpatient request if the prescription is for a schedule II opioid drug. Start Date: 10/20/22 Status: Ordered Fioricet Tablet 2 tablet, By Mouth, Every 4 hours, 0 Refills, Maintenance Start Date: 08/23/13 Status: Ordered Flovent HFA 110 mcg/inh inhalation aerosol 1 puffs, Inhalation, 2 times a day, 0 Refills, Maintenance, 10/16/22 16:23:00 EST, Partial fill upon patient request if the prescription is for a schedule II opioid drug. Start Date: 10/16/22 Status: Ordered gabapentin 300 mg oral capsule 600 mg, Capsule, By Mouth, 02/10/24 9:00:00 EDT Start Date: 02/10/24 Stop Date: 02/10/24 Status: Completed gabapentin 300 mg oral capsule 600 mg, Capsule, By Mouth, 02/10/24 15:00:00 EDT Start Date: 02/10/24 Stop Date: 02/10/24 Status: Completed gabapentin 600 mg oral tablet 1 tablet = 600 mg, By Mouth, 3 times a day Start Date: 10/16/22 Status: Ordered hydrochlorothiazide 25 mg oral tablet TAKE ONE TABLET BY MOUTH EVERY MORNING Start Date: 02/04/24 Status: Ordered hydrOXYzine pamoate 50 mg oral capsule 1 capsule = 50 mg, By Mouth, 2 times a day, PRN as needed for anxiety Start Date: 10/16/22 Status: Ordered ibuprofen 400 mg oral tablet 400 mg, 1, tablet, By Mouth, 3 times a day, PRN, Refills 0, Maintenance, Pain , Mild, 10/20/22 14:14:00 EST, Partial fill upon patient request if the prescription is for a schedule II opioid drug. Start Date: 10/20/22 Status: Ordered Lidoderm 5% film 1 patch, Topically, Daily, LEAVE ON FOR 12 HOURS, THEN OFF FOR 12 HOURS DIRECTED. Start Date: 10/16/22 Status: Ordered lisinopril 20 mg oral tablet 40 mg, Tablet, By Mouth, Hold for: SBP less than 110, 02/10/24 9:00:00 EDT Start Date: 02/10/24 Stop Date: 02/10/24 Status: Completed lisinopril 40 mg oral tablet TAKE ONE TABLET EVERY MORNING Start Date: 02/04/24 Status: Ordered methenamine hippurate 1 gm oral tablet TAKE ONE TABLET BY MOUTH EVERY DAY Start Date: 02/04/24 Status: Ordered Proventil HFA 90 mcg/inh inhalation aerosol with adapter 2, puffs, Inhalation, Every 4 hours Start Date: 10/16/22 Status: Ordered triamcinolone 55 mcg/inh nasal spray 2 sprays = 110 mcg, Nares, Both, Daily Start Date: 10/16/22 Status: Ordered venlafaxine 150 mg oral capsule, extended release 150 mg, 1, capsule, By Mouth, Daily, Refills 0, Maintenance, 10/20/22 14:06:00 EST, Partial fill upon patient request if the prescription is for a schedule II opioid drug. Start Date: 10/20/22 Status: Ordered Vitamin C 500 mg oral tablet 1 tablet = 500 mg, By Mouth, Daily, # 30 tablet, 0 Refills, Maintenance, 10/16/22 16:23:00 EST, Tablet, Partial fill upon patient request if the prescription is for a schedule II opioid drug. Start Date: 10/16/22 Status: Ordered Vitamin D3 2000 intl units oral capsule 0 Refills, Maintenance, 02/04/24 4:35:00 EDT, Partial fill upon patient request if the prescriptionis for a schedule II opioid drug. Start Date: 02/04/24 Status: Ordered Problem List Condition Confirmation Course Effective Dates Status H ealth Status Informant Anxiety Confirmed Active Cerebrovascular disease Confirmed Active Gastroesophageal reflux disease Confirmed Active Heart disease Confirmed Active Hyperlipidemia Confirmed Active Hypertensive disorder Confirmed Active Migraines Confirmed Active Obese class I Confirmed Active Results Radiology Reports * Exam Date Time Procedure Performing Provider Status 02/08/24 6:52 PM Shoulder Min 2 Views Left Rosa Okeefe carlo; Auth (Verified) Notes: (Shoulder Min 2 Views Left) Reason For Exam: Pain RESULT: Shoulder Min 2 Views Left Shoulder Min 2 Views Left, views Reason: Pain; Clinical Question(s): Fracture COMPARISON: None. FINDINGS: No fracture or dislocation. No arthritic change of the glenohumeral joint. Normal AC joint and portions of the clavicle included on the exam. No calcification of the rotator cuff. IMPRESSION: No radiographic evidence of acute fracture or dislocation in the left shoulder WSN: [id number] Ordering Physician: Kelsea Flores Dictated By: Judi Gar MD Dictated Date/Time: 02/08/24 6:57 pm Reviewed By: Judi Gar MD Signed By: Judi Gar MD Signed Date/Time: 02/08/24 6:57 pm Transcribed By: CSKatarzyna Transcribed Date/Time: 02/08/24 6:56 pm * Exam Date Time Procedure Performing Provider Status 02/06/24 6:33 PM Chest Portable Louise Dennis; Auth (Verified) Notes: (Chest Portable) Reason For Exam: Fever RESULT: Chest Portable Chest Portable Reason: Fever; Clinical Question(s): Pneumonia COMPARISON: 02/03/2024 FINDINGS: LINES AND TUBES: None. LUNGS AND PLEURA: Clear lungs. Normal pulmonary vascularity. No pleural effusion. No pneumothorax. HEART, MEDIASTINUM AND CHARO: Mild prominence of the cardiac silhouette. Normal mediastinal and hilar contour. BONES AND SOFT TISSUES: No acute abnormality. IMPRESSION: No acute abnormality. WSN: [id number] Ordering Physician: Jus Metcalf Dictated By: Sang Torres MD Dictated Date/Time: 02/06/24 7:51 pm Reviewed By: Sang Torres MD Signed By: Sang Torres MD Signed Date/Time: 02/06/24 7:51 pm Transcribed By: SHERON Transcribed Date/Time: 02/06/24 7:51 pm * Exam Date Time Procedure Performing Provider Status 02/03/24 6:[address] Angio Neck Hyperacute Stroke My Sin; Auth (Verified) Notes: (CT Angio Neck Hyperacute Stroke) Reason For Exam: Aneurysm, neck vessel(s);Other: RESULT: CT Angio Neck Hyperacute Stroke CT Angio Head Hyperacute Stroke, CT Angio Neck Hyperacute Stroke Hx of Present Illness: Stroke; Reason: Other:; Stroke; Clinical Question(s): Other:; Hematoma Aneurysm; Order Comment: J-3 2023 19:37:09 EDT, vrad scanned provider notified / Other: TECHNIQUE: CT angiogram of the head and neck was performed after bolus administration of intravenous contrast. 100 mL of Omnipaque 300 was administered intravenously. Coronal and sagittal MIP reformatted images were obtained. Additional 3-D images were created on a separate workstation under concurrent supervision by the attending radiologist. All stenoses are measured using NASCET criteria. Weight-based protocol using automatic tube modulation was used to optimize exposure parameters. RADIATION DOSE PARAMETERS: CTDIvol Body: 10.30 mGy, DLP Body: 591 mGy*cm. CTDIvol Head: 45.70 mGy, DLP Head: 966 mGy*cm. ( CTDIvol Body: 10.30 mGy, DLP Body: 591 mGy*cm. ( CTDIvol Body: 10.30 mGy, DLP Body: 591 mGy*cm. CTDIvol Head: 45.70 mGy, DLP Head: 966 mGy*cm. ( (accession [id number]) COMPARISON: Noncontrast CT head performed concurrently. FINDINGS: This study is limited due to suboptimal intravenous contrast opacification. There is a 3 vessel arch. The supraaortic proximal great neck vessels appear normal in caliber and appearance. No hemodynamically significant stenosis. The right common carotid artery is normal in caliber. The right carotid bulb is normal. The right proximal ICA shows 0% stenosis by NASCET criteria. The left common carotid artery is normal in caliber. The left carotid bulb is normal. The left proximal ICA shows 0% stenosis by NASCET criteria. Right vertebral artery: Dominant. Patent without stenosis. Left vertebral artery: Patent without stenosis. Cervical spine: No acute pathology. Soft tissues and lung apices: The visualized upper lungs are clear. Bilateral thyroid lobes are normal. There is no definite abnormality throughout the soft tissue neck. [place]: Concurrent CT of head showed a 2 x 1.5 cm acute hematoma in the right thalamus associated mild surrounding edema and mass effect. Mild generalized volume loss and bilateral periventricular hypodensities are noted. Small old lacunar infarcts are seen within bilateral centrum semiovale. On the current CTA, no prominent arterial supply or venous drainage is noted to and from this lesion. Bilateral internal carotid arteries at the skull base have a few scattered mural calcifications. Nodefinite stenosis is seen. Bilateral posterior communicating arteries are visualized. An infundibulum is seen at origin of the left posterior communicating artery . Bilateral ACAs, MCAs and their branches are patent. No stenosis or vessel cut off is seen. No definite aneurysm is noted. Bilateral intracranial vertebral arteries show no definite stenosis. The vertebrobasilar junction is normal. The basilar artery is slightly tortuous. No stenosis or dissection is seen. There is no basilar tip aneurysm. Bilateral rag room supervisor and their branches are patent. The superior sagittal sinuses, the straight sinus, bilateral transverse and sigmoid sinuses: Patentwithout dural sinus thrombosis. IMPRESSION: This study is limited due to suboptimal contrast opacification. CT of head showed a 2 x 1.5 cm acute hematoma in the right thalamus. No prominent arterial supply or venous drainage is noted to and from this lesion. No cutoff or high-grade stenosis of the major branches of the intracranial arteries. No aneurysm, stenosis, or vascular malformations present. The right proximal internal carotid artery show no significant stenosis by NASCET criteria. The left proximal internal carotid artery show no significant stenosis by NASCET criteria. The right cervical vertebral artery shows no significant stenosis. The left cervical vertebral artery shows no significant stenosis. REFERENCE: NASCET Criteria: The degree of internal carotid stenosis is based on NASCET Criteria: Normal: No stenosis Mild: Less than 50% stenosis Moderate: 50-69% stenosis Severe: 70-99% stenosis Total occlusion: No detectable patent lumen. The preliminary reports were given by the vR. WSN: [id number] Ordering Physician: Chris Boles Dictated By: Daniel Cochran MD Dictated Date/Time: 02/04/24 1:06 pm Reviewed By: Daniel Cochran MD Signed By: Daniel Cochran MD Signed Date/Time: 02/04/24 1:06 pm Transcribed By: SHERON Transcribed Date/Time: 02/04/24 9:54 am * Exam Date Time Procedure Performing Provider Status 02/03/24 6:[address] Angio Head Hyperacute Stroke My Sin; John (Verified) Notes: (CT Angio Head Hyperacute Stroke) Reason For Exam: Stroke;Other: RESULT: CT Angio Head Hyperacute Stroke CT Angio Head Hyperacute Stroke, CT Angio Neck Hyperacute Stroke Hx of Present Illness: Stroke; Reason: Other:; Stroke; Clinical Question(s): Other:; Hematoma Aneurysm; Order Comment: CLJ-3 2023 19:37:09 EDT, vrad scanned provider notified / Other: TECHNIQUE: CT angiogram of the head and neck was performed after bolus administration of intravenous contrast. 100 mL of Omnipaque 300 was administered intravenously. Coronal and sagittal MIP reformatted images were obtained. Additional 3-D images were created on a separate workstation under concurrent supervision by the attending radiologist. All stenoses are measured using NASCET criteria. Weight-based protocol using automatic tube modulation was used to optimize exposure parameters. RADIATION DOSE PARAMETERS: CTDIvol Body: 10.30 mGy, DLP Body: 591 mGy*cm. CTDIvol Head: 45.70 mGy, DLP Head: 966 mGy*cm. ( CTDIvol Body: 10.30 mGy, DLP Body: 591 mGy*cm. ( CTDIvol Body: 10.30 mGy, DLP Body: 591 mGy*cm. CTDIvol Head: 45.70 mGy, DLP Head: 966 mGy*cm. ( (accession [id number]) COMPARISON: Noncontrast CT head performed concurrently. FINDINGS: This study is limited due to suboptimal intravenous contrast opacification. There is a 3 vessel arch. The supraaortic proximal great neck vessels appear normal in caliber and appearance. No hemodynamically significant stenosis. The right common carotid artery is normal in caliber. The right carotid bulb is normal. The right proximal ICA shows 0% stenosis by NASCET criteria. The left common carotid artery is normal in caliber. The left carotid bulb is normal. The left proximal ICA shows 0% stenosis by NASCET criteria. Right vertebral artery: Dominant. Patent without stenosis. Left vertebral artery: Patent without stenosis. Cervical spine: No acute pathology. Soft tissues and lung apices: The visualized upper lungs are clear. Bilateral thyroid lobes are normal. There is no definite abnormality throughout the soft tissue neck. [place]: Concurrent CT of head showed a 2 x 1.5 cm acute hematoma in the right thalamus associated mild surrounding edema and mass effect. Mild generalized volume loss and bilateral periventricular hypodensities are noted. Small old lacunar infarcts are seen within bilateral centrum semiovale. On the current CTA, no prominent arterial supply or venous drainage is noted to and from this lesion. Bilateral internal carotid arteries at the skull base have a few scattered mural calcifications. Nodefinite stenosis is seen. Bilateral posterior communicating arteries are visualized. An infundibulum is seen at origin of the left posterior communicating artery . Bilateral ACAs, MCAs and their branches are patent. No stenosis or vessel cut off is seen. No definite aneurysm is noted. Bilateral intracranial vertebral arteries show no definite stenosis. The vertebrobasilar junction is normal. The basilar artery is slightly tortuous. No stenosis or dissection is seen. There is no basilar tip aneurysm. Bilateral rag room supervisor and their branches are patent. The superior sagittal sinuses, the straight sinus, bilateral transverse and sigmoid sinuses: Patentwithout dural sinus thrombosis. IMPRESSION: This study is limited due to suboptimal contrast opacification. CT of head showed a 2 x 1.5 cm acute hematoma in the right thalamus. No prominent arterial supply or venous drainage is noted to and from this lesion. No cutoff or high-grade stenosis of the major branches of the intracranial arteries. No aneurysm, stenosis, or vascular malformations present. The right proximal internal carotid artery show no significant stenosis by NASCET criteria. The left proximal internal carotid artery show no significant stenosis by NASCET criteria. The right cervical vertebral artery shows no significant stenosis. The left cervical vertebral artery shows no significant stenosis. REFERENCE: NASCET Criteria: The degree of internal carotid stenosis is based on NASCET Criteria: Normal: No stenosis Mild: Less than 50% stenosis Moderate: 50-69% stenosis Severe: 70-99% stenosis Total occlusion: No detectable patent lumen. The preliminary reports were given by the [facility]. WSN: [id number] Ordering Physician: Chris Boles Dictated By: Daniel Cochran MD Dictated Date/Time: 02/04/24 1:06 pm Reviewed By: Daniel Cochran MD Signed By: Daniel Cochran MD Signed Date/Time: 02/04/24 1:06 pm Transcribed By: SHERON Transcribed Date/Time: 02/04/24 9:54 am * Exam Date Time Procedure Performing Provider Status 02/04/24 2:55 AM MRI Brain W+W/O Contrast Toña Fayina; Auth (Verified) Notes: (MRI Brain W+W/O Contrast) Reason For Exam: intraprenchymal hemmorhage in basal ganglion;Other: RESULT: MRI Brain W+W/O Contrast MRI Brain W+W/O Contrast INDICATION / CLINICAL QUESTION: Reason: Other:; intraparenchymal hemorrhage in basal ganglion; Clinical Question(s): Hematoma; Order Comment: Please see Reference Text for complete list of contraindications Hematoma TECHNIQUE: MRI of the brain was performed with and without contrast utilizing sagittal and axial T1, axial T2, axial FLAIR, axial SWAN, and axial DWI sequences, and post-contrast 3D T1 TADEO with multiplanar reformats. 16 mL of Clariscan was administered intravenously. COMPARISON: Brain MRI 10/05/2017. Head CT 02/04/2024. FINDINGS: BRAIN and EXTRA-AXIAL SPACES: There is a hematoma centered in the right thalamus and internal capsule measuring approximately 2.0 x 1.9 x 2.1 cm. This is similar to the most recent CT. It is isointense on T1 and mixed signal on T2 with blooming artifact, compatible with acute hemorrhage. There is surrounding edema with local mass effect and partial effacement of the third ventricle but there is no evidence of hydrocephalus. There is no underlying enhancing mass. There are punctate chronic microhemorrhages in the left thalamus, bilateral basal ganglia, and scattered in the white matter of the bilateral cerebral hemispheres. There are diffusion changes associated with the hematoma, but otherwise there is no diffusion abnormality to indicate acute or subacute infarction. There are scattered nonspecific FLAIR hyperintensities in the white matter most likely reflecting chronic small vessel disease, and there is a chronic infarct in the white matter of the left motor strip. There is no extra-axial collection. Flow voids are preserved in the dominant intracranial vessels. EXTRACRANIAL SOFT TISSUES: Orbits are unremarkable. Paranasal sinuses and mastoids are unremarkable. BONES: Marrow signal is preserved. IMPRESSION: Acute intraparenchymal hemorrhage centered in the right thalamus and internal capsule with surrounding edema and local mass effect including partial effacement of the third ventricle. No evidence of hydrocephalus. No underlying enhancing mass. This is a common location for hypertensive hemorrhage. Additional scattered punctate chronic microhemorrhages as above. 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 Mild scattered nonspecific white matter signal changes which most likely reflect chronic small vessel disease. WSN: [id number] Ordering Physician: Marva Santiago Dictated By: Mona Ponce MD Dictated Date/Time: 02/04/24 8:16 am Reviewed By: Mona Ponce MD Signed By: Mona Ponce MD Signed Date/Time: 02/04/24 8:16 am Transcribed By: SHERON Transcribed Date/Time: 02/04/24 8:01 am * Exam Date Time Procedure Performing Provider Status 02/04/24 12:[address] Head/Brain W/O Contrast Louise Shore; Auth (Verified) Notes: (CT Head/Brain W/O Contrast) Reason For Exam: stroke follow up;Other: RESULT: CT Head/Brain W/O Contrast CT Head/Brain W/O Contrast INDICATION: Reason: Other:; stroke follow up; Clinical Question(s): Other:; Order Comment: TECHNIQUE: Noncontrast head CT using axial technique and reconstructed in axial and coronal planes.Iterative reconstruction techniques are used to optimize dose and image quality. CTDIvol Head: 45.80 mGy, DLP Head: 773 mGy*cm. COMPARISON: CT head done earlier in the day. FINDINGS: Carrier Washer view findings, lines and tubes: None. BRAIN AND EXTRA-AXIAL SPACES: Increased size of 2 x 2 x 2.2 cm hematoma centered at the right internal capsule. It previously measured 1.5 x 1.3 x 2 cm. No new hemorrhage. Negative insular ribbon sign. Atherosclerotic vascular calcification of the carotid arteries but negative hyperdense vessel sign. Mild prominence of the ventricles and sulci consistent with parenchymal volume loss. Mild low-density white matter changes. No subarachnoid hemorrhage. No subdural or epidural collection. CALVARIUM, SKULL BASE, AND SOFT TISSUES: No fractures or suspicious bony lesions. The paranasal sinuses and mastoid air cells are clear. Soft tissue density in the bilateral external auditory canals, likely impacted cerumen Visualized orbits and globes are intact. The extracranial soft tissues are unremarkable. IMPRESSION: Increased size of 2 x 2 x 2.2 cm hematoma centered at the right thalamus. It previously measured 1.5 x 1.3 x 2 cm. Results were discussed via tigerconnect by Dr. Keith with Demetrio Wang NP on 02/04/2024 1:27 AM. I have personally reviewed the images and I agree with this report. WSN: [id number] Ordering Physician: Chris Boles Dictated By: Sagar[Radiology] Angelika VIERA Dictated Date/Time: 02/04/24 7:10 am Reviewed By: Chris Ferro MD Signed By: Chris Ferro MD Signed Date/Time: 02/04/24 7:15 am Transcribed By: SHERON Transcribed Date/Time: 02/04/24 1:28 am * Exam Date Time Procedure Performing Provider Status 02/03/24 7:17 PM Chest Portable Mehran Phillips; Auth (Verified) Notes: (Chest Portable) Reason For Exam: Stroke;Other: RESULT: Chest Portable Chest Portable Hx of Present Illness: Stroke; Reason: Other:; Stroke; Clinical Question(s): CHF; Order Comment: InCT @ 1819 COMPARISON: 02/24/2021. FINDINGS: LINES AND TUBES: None. LUNGS AND PLEURA: Clear lungs. Normal pulmonary vascularity. No pleural effusion. No pneumothorax. HEART, MEDIASTINUM AND CHARO: Heart is at the upper limits of normal for size. Normal mediastinal and hilar contour. BONES AND SOFT TISSUES: No acute abnormality. IMPRESSION: No acute abnormality. WSN: [id number] Ordering Physician: Chris Boles Dictated By: Agueda Hernandez MD Dictated Date/Time: 02/03/24 11:43 p Reviewed By: Agueda Hernandez MD Signed By: Agueda Hernandez MD Signed Date/Time: 02/03/24 11:43 pm Transcribed By: SHERON Transcribed Date/Time: 02/03/24 11:43 pm * Exam Date Time Procedure Performing Provider Status 02/03/24 6:[address] Head-Hyper Acute Stroke Brennon Whelan; Auth (Verified) Notes: (CT Head-Hyper Acute Stroke) Reason For Exam: Neuro deficit, acute, stroke suspected;Other: RESULT: CT Head-Hyper Acute Stroke CT Head-Hyper Acute Stroke INDICATION: Reason: Other:; Neuro deficit, acute, stroke suspected; Clinical Question(s): Other:; Hematoma Infarction TECHNIQUE: Noncontrast head CT using axial technique and reconstructed in axial and coronal planes.Iterative reconstruction techniques are used to optimize dose and image quality. CTDIvol Body: 10.30 mGy, DLP Body: 591 mGy*cm. CTDIvol Head: 45.70 mGy, DLP Head: 966 mGy*cm. COMPARISON: Head CT dated 2022. FINDINGS: Carrier Washer view findings, lines and tubes: None. BRAIN AND EXTRA-AXIAL SPACES: There is an intraparenchymal hemorrhage in the right basal ganglia, just medial of the posterior limb of the internal capsule measuring approximately 2 x 1.5 x 1.9 cm (approximately 3 cc). No midlineshift, or mass effect. Dutta-white matter differentiation is otherwise well preserved. Ventricles, sulci, and basilar cisterns are normal. Mild low-density white matter changes. No subarachnoid hemorrhage. No subdural or epidural collection. CALVARIUM, SKULL BASE, AND SOFT TISSUES: No fractures or suspicious bony lesions. The paranasal sinuses and mastoid air cells are clear. Visualized orbits and globes are intact. The extracranial soft tissues are unremarkable. IMPRESSION: Intraparenchymal hemorrhage in the right basal ganglia. A message regarding these findings was sent to Chris Boles MD via [employer] at 02/03/2024 6:39 PM, with confirmation of receipt of the message. WSN: [id number] Ordering Physician: Chris Boles Dictated By: Qian Costa MD Dictated Date/Time: 02/03/24 6:48 pm Reviewed By: Qian Costa MD Signed By: Qian Costa MD Signed Date/Time: 02/03/24 6:48 pm Transcribed By: SHERON Transcribed Date/Time: 02/03/24 6:38 pm Vital Signs Most recent to oldest [Reference Range]: 1 2 3 Height 160 cm (02/09/24 3:41 PM) 160 cm (02/09/24 11:21 AM) 160 cm (02/09/24 7:41 AM) Weight 83.9 kg (02/07/24 1:03 AM) 83.9 kg (02/06/24 8:00 PM) 80.5 kg (02/05/24 11:38 AM) Oxygen Saturation [94-100 %] 98 % (02/10/24 3:00 PM) 99 % (02/10/24 11:07 AM) 98 % (02/10/24 7:33 AM) Pulse Rate [55-90 bpm] 63 bpm (02/10/24 3:00 PM) 60 bpm (02/10/24 11:07 AM) 54 bpm *L* (02/10/24 7:33 AM) Body Mass Index [18.5-24.99 kg/m2] 31.64 kg/m2 *>HHI* (02/03/24 9:48 PM) 32.03 kg/m2 *>HHI* (02/03/24 8:22 PM) 32.03 kg/m2 *>HHI* (02/03/24 8:02 PM) Blood Pressure [90-138/55-84 mm Hg] 117/100mm Hg (02/10/24 3:00 PM) 138/71mm Hg (02/10/24 11:07 AM) 139/81mm Hg *H* (02/10/24 9:40 AM) Respiratory Rate [16-30 br/min] 17 br/min (02/10/24 3:00 PM) 17 br/min (02/10/24 2:26 PM) 18 br/min (02/10/24 11:38 AM) Temperature [96.8-100.4 DegF] 97.9 DegF (02/10/24 3:00 PM) 97.1 DegF (02/10/24 11:07 AM) 97.4 DegF (02/10/24 7:33 AM) Liters per Minute 0 L/min (02/08/24 3:51 AM) 0 L/min (02/07/24 11:19 PM) Mode of Delivery (Oxygen) Room air (02/10/24 3:00 PM) Room air (02/10/24 11:07 AM) Room air (02/10/24 7:33 AM) Blood pressure sites Arm, right (02/10/24 3:00 PM) Arm, right (02/10/24 11:07 AM) Arm, right (02/10/24 7:33 AM) Temperature Route Temporal (02/10/24 3:00 PM) Temporal (02/10/24 11:07 AM) Temporal (02/10/24 7:33 AM) Dry Weight 84.3 kg (02/08/24 6:48 AM) 81 kg (02/03/24 9:48 PM) 82 kg (02/03/24 8:22 PM) Weight Obtained Via Bed scale (02/07/24 1:03 AM) Bed scale (02/06/24 8:00 PM) Bed scale (02/05/24 11:38 AM) Dry Weight Obtained Via Bed scale (02/08/24 6:48 AM) Social History Social History Type Response Smoking Status Never (less than 100 in lifetime) entered on: 12/26/20 Sex Admission evaluation note * Pamela VIERA, Marva Jacobo: MODIFY, MODIFY, PERFORM, MODIFY, MODIFY Event Display: Admission Note Authored Date: [id number] Patient: ??RITO VERDE ? Age:??58 Years?Sex:??Female?:??1965?? Chief Complaint/Reason for Consultation Stroke alert History of Present Illness 58-year-old female with PMH of HTN, HLD, history of migraines, anxiety was brought to the ED with aconcern for stroke. ?? Patient's medical chart reviewed, seen and examined at bedside.?? Patient by time of my evaluation is very sleepy and agitated, she shouted on me to go away,?? did not answer any of my questions.?? History mostly obtained from chart review and collaterals.?? Patient last known well by family memberaround 5 PM.?? Family noticed after returning that she was not able to move her left arm or left leg and had a left-sided facial droop which is new.?? Family got concerned and brought to the ED for evaluation.?? Otherwise was in her usual state of health.?? Upon initial evaluation patient was oriented to self and denies having any pains. ?? Initially in the ED patient remains afebrile, HR 70, RR 14, BP 137/87, saturation 95% on room air.?? WBC 6.8, Hgb 13.9, PLT 239, electrolytes normal, BUN/creatinine 19/0.9, blood glucose 91, troponin 16?13,.?? Negative, chest x-ray in process, CT of the head with intraparenchymal hemorrhagein the right basal ganglion.?? CT angio of the head and neck in process.?? Neurology was consulted recommend repeat CT head in 6 hours, maintain SBP less than 160 with HOB 30 degrees, MRI with and without contrast.?? Patient was received Tylenol and started on nicardipine drip to maintain?? blood pressure less than 160.?? Patient will be admitted to [facility] medicine service for further manag ement. Review of Systems Not able to obtain any review of system questions Objective Measurements?? Height: 160 cm (02/03/24) Weight: 81 kg (02/03/24) Dry Weight: 81 kg (02/03/24) Body Mass Index:??31.64 kg/m2??Critical (02/03/24) ? Vital Signs?? Temperature: 98 DegF (02/04/24 04:00:00) Temperature Route: Oral (02/04/24 04:00:00) Pulse Rate: 60 bpm (02/04/24 00:00:00) Heart Rate Monitored: 58 bpm (02/04/24 04:00:00) Respiratory Rate: 18 br/min (02/04/24 04:00:00) Systolic Blood Pressure: 99 mm Hg (02/04/24 04:00:00) Diastolic Blood Pressure: 65 mm Hg (02/04/24 04:00:00) Blood pressure sites: Arm, right (02/04/24 04:00:00) Mean Arterial Pressure: 119 mm Hg (02/03/24 21:48:00) Pulse Pressure: 34 mm Hg (02/04/24 04:00:00) Oxygen Saturation:??92 %??Low (02/04/24 04:00:00) Mode of Delivery (Oxygen): Room air (02/04/24 04:00:00) Early Warning Score: 3 (02/04/24 04:06:57) ? Pain Scores 1 - 10 Pain Scale Score: 4 (22:00) ?? Intake/Output? 02/02 20:34 02/03 07:00 02/02 07:00 02/01 07:00 01/31 07:00 ?? 02/03 05:01 02/03 05:01 02/03 06:59 02/02 06:59 02/01 06:59 Intake ? 1501.2 ?0 ? 1501.2 ?0 ?0 Output ? 1750 ?0 ? 1750 ?0 ?0 Net Total ? -248.8 ?0 ? -248.8 ?0 ?0 ? Urine Count ?1 ?0 ?1 ?0 ?0 ? Precautions Seizure Precautions ? Physical Exam Limited as patient not cooperative?? Gen- not in acute distress, sleepy, gets agitated to talk HEENT- Normocephalic, Atraumatic Neck-supple, no JVD Heart-S1S2(+),??regular, no murmurs. lungs- Clear, b/l air entry, no wheezing.. Neurological- AAO??1 ? (02/03/2024 18:[address] Head-Hyper Acute Stroke) MPRESSION: ?? Intraparenchymal hemorrhage in the right basal ganglia. Assessment/Plan 58-year-old female with PMH of HTN, HLD, history of migraines, anxiety was brought to the ED with aconcern for stroke. Initially in the ED patient remains afebrile, HR 70, RR 14, BP 137/87, saturation 95% on room air.?? WBC 6.8, Hgb 13.9, PLT 239, electrolytes normal, BUN/creatinine 19/0.9, blood glucose 91, geldydyz85?13,.?? Negative, chest x-ray in process, CT of the head with intraparenchymal hemorrhage inthe right basal ganglion.?? CT angio of the head and neck in process.?? Neurology was consulted recommend repeat CT head in 6 hours, maintain SBP less than 160 with HOB 30 degrees, MRI with and without contrast.?? Patient was received Tylenol and started on nicardipine drip to maintain?? blood pressure less than 160.?? Patient will be admitted to [facility] medicine service for further manageme nt. ? 1. ??Hemorrhagic stroke ??(I61.9) 2. ??HTN (hypertension) ??(I10) 3. ??Hyperlipidemia ??(E78.5) 4. ??Migraines ??(G43.909) Vitals as per unit standards Telemetry monitoring Neurochecks every 2 hours Seizure precautions Initially n.p.o., passed bedside swallow evaluation, diet resumed Neurology on board, appreciate recommendations On nicardipine??drip??to maintain blood pressure??less than 160 PT OT evaluation As per neurology recommendations repeat CT head in 6 hours??and also MRI of the brain with and without contrast Stat CT head for any acute changes in the neurological findings Pain control Resume home hypertensive medications???lisinopril 40 mg daily,??metoprolol??50 mg twice daily.?? Held amlodipine??and hydrochlorothiazide for now Aspirin held Atorvastatin??20 mg daily Follow-up with lipid, thyroid, HbA1c levels Will continue with aripiprazole 5 mg daily at bedtime ?? GERD???famotidine??40 mg daily Mood???hydroxyzine??as needed, aripiprazole 5 mg daily ?? Note -??need to confirm medications with family in AM and adjust if any changes needed. Med rec done as per external rx history. ? VTE Prophylaxis:??Pneumatic compression boots, VTE guidelines done.?Pharmacological anticoagulation contraindicated?intraparenchymal hemorrhage ?VTE Prophylaxis Assessment:??VTE Prophylaxis Ordered ?? Code Status:??Full plan to chart review ?Order Code Status:??Code Status Ordered Diet???cardiac diet, passed bedside swallow evaluation ?? Patient seen and examined on 02/03/2024 ? Histories Allergies Allergies ?(Active and Proposed Allergies Only) NKA? (Severity: Unknown severity, Onset: Unknown) ? Past Medical History/Problem List Active Problems(8) Anxiety Cerebrovascular disease Gastroesophageal reflux disease Heart disease Hyperlipidemia Hypertensive disorder Migraines Obese class I ? Past Surgical History D&C, right salpingo-oophorectomy: 09/05/13 section - at term: 1999 Salpingectomy, complete or partial, unilateral or bilateral (separate procedure): 1999 section - at term: 1994 section - at term: 1992 hand surgery ? Social History Alcohol Details:??Use: Current. Substance Abuse Details:??Use: Past. Tobacco Details:??Use: Never (less than 100 in lifetime). Electronic Cigarette/Vaping Details:??Electronic Cigarette Use: Never. ? Family History Mother: CAD - Coronary artery disease; Diabetes mellitus type II; Hypertension; Thyroid disease Father: CAD - Coronary artery disease; Diabetes mellitus type II ? Medications Home Medications Acetaminophen (acetaminophen 650 mg oral tablet, extended release)?1?tab(s)?650?Milligram?By Mouth?2 times a day? NEEDED FOR PAIN OR FEVER Acetaminophen/Butalbital/Caffeine (Fioricet Tablet)?2?tab(s)?By Mouth?Every 4 hours Albuterol (Proventil HFA 90 mcg/inh inhalation aerosol with adapter)?2?puff(s)?Inhalation?Every 4 hours Amlodipine (amLODIPine 10 mg oral tablet)?TAKE ONE TABLET EVERY DAY Aripiprazole (ARIPiprazole 5 mg oral tablet)?5?Milligram?1?tablet?By Mouth?Daily at bedtime Ascorbic Acid (Vitamin C 500 mg oral tablet)?1?tab(s)?500?Milligram?By Mouth?Daily Aspirin (Aspirin Enteric Coated 81 mg oral delayed release tablet)?TAKE ONE TABLET BY MOUTH EVERY DAY Atorvastatin (atorvastatin 20 mg oral tablet)?1?tab(s)?20?Milligram?By Mouth?Daily Baclofen (baclofen 10 mg oral tablet)?10?Milligram?1?tablet?By Mouth?3 times a day?as needed?Spasm Cetirizine (cetirizine 10 mg oral tablet)?TAKE ONE TABLET BY MOUTH EVERY DAY Diclofenac Topical (diclofenac 1% topical gel)?2?gram?Topically?2 times a day Famotidine (famotidine 20 mg oral tablet)?40?Milligram?2?tablet?By Mouth?Daily Fluticasone (Flovent HFA 110 mcg/inh inhalation aerosol)?1?puff(s)?Inhalation?2 times aday Gabapentin (gabapentin 600 mg oral tablet)?1?tab(s)?600?Milligram?By Mouth?3 times a day Hydrochlorothiazide (hydrochlorothiazide 25 mg oral tablet)?TAKE ONE TABLET BY MOUTH EVERY MORNING HydrOXYzine (hydrOXYzine pamoate 50 mg oral capsule)?1?capsule?50?Milligram?By Mouth?2 times a day?as needed?as needed for anxiety Ibuprofen (ibuprofen 400 mg oral tablet)?400?Milligram?1?tablet?By Mouth?3 times a day?as needed?Pain , Mild Lidocaine Topical (Lidoderm 5% film)?1 patch?Topically?Daily?LEAVE ON FOR 12 HOURS, THEN OFF FOR 12 HOURS DIRECTED. Lisinopril (lisinopril 40 mg oral tablet)?TAKE ONE TABLET EVERY MORNING Methenamine (methenamine hippurate 1 gm oral tablet)?TAKE ONE TABLET BY MOUTH EVERY DAY Metoprolol (Metoprolol Tartrate 50 mg oral tablet)?TAKE ONE TABLET BY MOUTH TWICE DAILY Miscellaneous Rx (cholecalciferol (vitamin D3) 50 mcg (2,000 unit) capsule)?TAKE ONE CAPSULE EVERY DAY Triamcinolone Nasal (triamcinolone 55 mcg/inh nasal spray)?2?spray(s)?110?Microgram?Nares, Both?Daily Venlafaxine (venlafaxine 150 mg oral capsule, extended release)?150?Milligram?1?capsule?By Mouth?Daily ? Inpatient Medications Medications (20) Active SCHEDULED: (8) Acetaminophen/Butalbital/Caffeine Tablet (Fioricet Tablet) ??2 tablet, By Mouth, Every 4 hours Aripiprazole 5 mg Tablet (ARIPiprazole 5 mg oral tablet) ??5 mg, By Mouth, Daily at bedtime Atorvastatin 20 mg Tablet (atorvastatin 20 mg oral tablet) ??20 mg, By Mouth, Daily Famotidine 20 mg Tablet (famotidine 20 mg oral tablet) ??40 mg, By Mouth, Daily Gabapentin 300 mg Capsule (gabapentin 300 mg oral capsule) ??600 mg, By Mouth, 3 times a day Lisinopril 20 mg Tablet (lisinopril 20 mg oral tablet) ??40 mg, By Mouth, Daily Metoprolol 50 mg Tablet (metoprolol 50 mg oral tablet) ??50 mg, By Mouth, 2 times a day NaCl 0.9% Flush 3ml (NaCL 0.9% Flush) ??3 mL, IV Push, Every 8 hours CONTINUOUS: (1) NICARdipine 2.5 mg/mL Cont IV 25 mg + NaCL 0.9% (250 mL) Cont IV 250 mL (NiCARDipine Cont IV 25 mg + NaCL 0.9% for Titration 250 mL) ??250 mL, IV Infusion PRN: (11) Albuterol 90mcg/Inhalation Inhaler HFA (albuterol CFC free 90 mcg/inh inhalation aerosol) ??180 mcg2 puffs, Inhalation, Every 4 hours Dextromethorphan-Guaifenesin 20 mg-200 mg/10 mL Liqu UD (Robitussin DM Liquid) ??10 mL, By Mouth, Every 4 hours Docusate Sodium 100 mg Capsule (Docusate Sodium Capsule) ??100 mg 1 capsule, By Mouth, 2 times a day HYDROmorphone 0.5 mg/0.5 mL Inj Syringe (Dilaudid Inj) ??0.2 mg 0.2 mL, IV Push Slowly, Every 4 hours HydrOXYzine Pamoate 25mg Capsule (hydrOXYzine pamoate 25 mg oral capsule) ??50 mg, By Mouth, 2 times a day Melatonin 3 mg Tablet (Melatonin Tablet) ??3 mg, By Mouth, Daily at bedtime NaCl 0.9% Flush 3ml (NaCL 0.9% Flush) ??3 mL, IV Push, Every 8 hours OxyCODONE 5 mg IR Tablet (oxyCODONE 5 mg oral tablet) ??2.5 mg, By Mouth, Every 6 hours Polyethylene Glycol 17 Gm Powder (MiraLax Powder) ??17 Gm 1 pack/packet, By Mouth, Daily Senna Tablet ??8.6 mg 1 tablet, By Mouth, 2 times a day Simethicone 80 mg Chewable Tablet (Simethicone Tablet) ??80 mg, Chew, 3 times a day ? Results Recent Labs BLOOD BANK Blood Type B Positive ()?? 02/03/2024 18:19 Antibody Screen Negative ()?? 02/03/2024 18:19 ?? BLOOD COUNT & DIFF WBC 6.8 k/mm3 ()?? 02/03/2024 18:49 RBC 4.91 m/mm3 ()?? 02/03/2024 18:49 Hgb 13.9 Gm/dL ()?? 02/03/2024 18:49 Hct 42.6 % ()?? 02/03/2024 18:49 MCV 86.8 femtoliters ()?? 02/03/2024 18:49 MCH 28.3 pg ()?? 02/03/2024 18:49 MCHC 32.6 g/dL (Low)?? 02/03/2024 18:49 Platelet Count 239 k/mm3 ()?? 02/03/2024 18:49 RDW-SD 41.1 femtoliters ()?? 02/03/2024 18:49 MPV 10.2 femtoliters ()?? 02/03/2024 18:49 Nucleated RBC (Automated) 0.0 #/100 WBC'S ()?? 02/03/2024 18:49 Abs. NRBC 0.0 k/mm3 ()?? 02/03/2024 18:49 Abs. Neut 3.7 k/mm3 ()?? 02/03/2024 18:49 Abs. Lymph 2.3 k/mm3 ()?? 02/03/2024 18:49 Abs. [place] 0.5 k/mm3 ()?? 02/03/2024 18:49 Abs. Eo 0.3 k/mm3 ()?? 02/03/2024 18:49 Abs. Baso 0.1 k/mm3 ()?? 02/03/2024 18:49 Neut % 54.0 % ()?? 02/03/2024 18:49 Lymph % 34.1 % ()?? 02/03/2024 18:49 Alcorn % 6.6 % ()?? 02/03/2024 18:49 Eos % 4.3 % ()?? 02/03/2024 18:49 Baso % 0.9 % ()?? 02/03/2024 18:49 Imm Gran 0.1 % ()?? 02/03/2024 18:49 Abs. Imm Gran 0.0 k/mm3 ()?? 02/03/2024 18:49 ?? CARDIAC High Sensitivity Troponin (HSTnT) 13 ng/L ()?? 02/03/2024 20:05 ?? CHEM GENERAL Sodium 140 mmol/L ()?? 02/03/2024 18:49 Potassium 4.1 mmol/L ()?? 02/03/2024 18:49 Chloride 103 mmol/L ()?? 02/03/2024 18:49 Bicarbonate Level 26 mmol/L ()?? 02/03/2024 18:49 Anion Gap 11 ()?? 02/03/2024 18:49 Glucose Level 91 mg/dL ()?? 02/03/2024 18:49 BUN 19 mg/dL ()?? 02/03/2024 18:49 Creatinine-Blood 0.9 mg/dL ()?? 02/03/2024 18:49 Estimated GFR Creatinine 74 ML/MIN/1.73 M2 ()?? 02/03/2024 18:49 Calcium 10.1 mg/dL ()?? 02/03/2024 18:49 AST (SGOT) 17 units/L ()?? 02/03/2024 18:49 ?? COAG INR 1.0 ()?? 02/03/2024 18:49 Protime (PT) 10.9 seconds ()?? 02/03/2024 18:49 APTT 28.0 seconds ()?? 02/03/2024 18:49 ?? UA/URINALYSIS Appear/Color, Urine LIGHT YELLOW ()?? 02/03/2024 20:07 Specific [place], Urine 1.016 ()?? 02/03/2024 20:07 pH, Urine 6.5 ()?? 02/03/2024 20:07 Albumin, Urine NEGATIVE ()?? 02/03/2024 20:07 Glucose, Urine NEGATIVE ()?? 02/03/2024 20:07 Ketones, Urine NEGATIVE ()?? 02/03/2024 20:07 Bilirubin, Urine NEGATIVE ()?? 02/03/2024 20:07 Hemoglobin, Urine NEGATIVE ()?? 02/03/2024 20:07 Nitrite, Urine NEGATIVE ()?? 02/03/2024 20:07 Leukocyte, Urine TRACE (Abnormal)?? 02/03/2024 20:07 Urobilinogen NORMAL mg/dL ()?? 02/03/2024 20:07 WBC's, Urine 1 /HPF ()?? 02/03/2024 20:07 RBC's, Urine 1 /HPF ()?? 02/03/2024 20:07 Squamous Epith <1 /HPF ()?? 02/03/2024 20:07 Hold Urine Culture Testing available 48 hours from time of collection. ()?? 02/03/2024 20:07 ?? URINE OTHER Est Creatinine Clearance 56.34 mL/min ()?? 02/03/2024 19:40 ? Urinalysis Albumin, Urine: NEGATIVE (20:07) Appear/Color, Urine: LIGHT YELLOW (20:07) Bilirubin, Urine: NEGATIVE (20:07) Est Creatinine Clearance: 56.34 mL/min (19:40) Glucose, Urine: NEGATIVE (20:07) Hemoglobin, Urine: NEGATIVE (20:07) Hold Urine Culture: Testing available 48 hours from time of collection. (20:07) Ketones, Urine: NEGATIVE (20:07) Leukocyte, Urine: TRACE Abnormal (20:07) Nitrite, Urine: NEGATIVE (20:07) pH, Urine: 6.5 (20:07) RBC's, Urine: 1 /HPF (20:07) Specific [place], Urine: 1.016 (20:07) Squamous Epith: <1 (20:07) Urobilinogen: NORMAL (20:07) WBC's, Urine: 1 /HPF (20:07) ? Cardiology Labs High Sensitivity Troponin (HSTnT): 13 ng/L (02/03/24 20:05:00) High Sensitivity Troponin (HSTnT):??16 ng/L??High (02/03/24 18:49:00) ?? [1]??CT Head-Hyper Acute Stroke; Julissa VIERA, Qian Munoz 02/03/2024 18:32 EDT EKG study * Event Display: ECG 12-Lead Authored Date: Please click on pdf link to open report * Event Display: ECG 12-Lead Authored Date: Ventricular Rate: 48 BPM Atrial Rate: 48 BPM P-R Interval: 144 ms QRS Duration: 84 ms Q-T Interval: 520 ms QTC Calculation(Bazett): 464 ms P [place]: 30 degrees R [place]: -26 degrees T [place]: 75 degrees Sinus bradycardia Otherwise normal ECG When compared with ECG of 03-FEB-2024 18:46, Minimal criteria for Septal infarct are no longer Present Confirmed by ANALI KING MD ([id number]) on 02/05/2024 5:31:24 PM [place]: ANALI KING MD * Event Display: ECG 12-Lead Authored Date: Please click on pdf link to open report * Event Display: ECG 12-Lead Authored Date: Ventricular Rate: 69 BPM Atrial Rate: 69 BPM P-R Interval: 158 ms QRS Duration: 88 ms Q-T Interval: 422 ms QTC Calculation(Bazett): 452 ms P [place]: 49 degrees R [place]: -32 degrees T [place]: 77 degrees Normal sinus rhythm Left axis deviation Minimal voltage criteria for LVH, may be normal variant ( R in aVL ) Septal infarct , age undetermined Abnormal ECG When compared with ECG of 16-OCT-2022 08:59, No significant change was found Confirmed by Rigo Phillips ([id number]) on 02/04/2024 7:33:53 AM [place]: Rigo Phillips Cardiology * Event Display: Cardiac Rhythm Strips Authored Date: * Event Display: Cardiac Rhythm Strips Authored Date: Hospital Progress note * Cristel Mckeon RN: PERFORM, SIGN, VERIFY Event Display: Progress Note Hospital Authored Date: Patient: RITO VERDE Age: 58 years Sex: Female : 1965 Associated Diagnoses: None Author: Cristel Mckeon RN Findings Problem Related to Alteration in Neurological : Alteration in Neurological Function/new 02/10/2024 11:00 EDT Alteration in Neuro status Related to Acute Stroke (CVA) Goals & Outcomes, Neurological Pt will be hemodynamically stable, Lab studies/diagnostic tests within pt specific limits, Pt is safe with transfers & activities, Pt will be discharged withoutinfection, Pt will be Neurologically stable, Pt will become pain free with appropriate intervention, Pt will maintain intact skin integrity, Pt will remain free from injury, Pt will resume/maintain adequate cardiac output, Pt will state importance of adhering to medication regime, Pt/caregiver willreceive psychosocial support as needed, Pt/caregiver will state understanding of rehab plan, Pt/caregiver will state strategies to reduce risk factors, Pt/caregiver will state understanding of plan/goals of care, Pt/caregiver will state understanding of the D/C plan, Pt will demonstrate safe transfers, Pt will be without signs of aspiration, Pt/caregiver will be able to describe s/s of TIA/Stroke Interventions, Neurological Assess/monitor facial symmetry and tongue deviation, Assess pt using NIHSS scale on admit & D/C, Collaborate w/ provider to initiate Stroke Protocol, Consult Speech Therapy as needed, DVT prophylaxis as ordered, Maintain oral suction at bedside, Teach Pt/caregiver how to transfer position safely, Teach Pt/caregiver how to use adaptive equipment, Teach Pt/caregiver s how to reduce stroke risk factors, Teach Pt/caregiver signs indicative of stroke BH Goals/Interventions, Neurological Yes Neurological, Problem Start 02/03/2024 23:53 Reviewed plan with, Neurological Patient Patient Progression, Neurological Pt progressing according to plan 02/10/2024 3:00 EDT Alteration in Neuro status Related to Acute Stroke (CVA) Goals & Outcomes, Neurological Pt will be hemodynamically stable, Lab studies/diagnostic tests within pt specific limits, Pt is safe with transfers & activities, Pt will be discharged withoutinfection, Pt will be Neurologically stable, Pt will become pain free with appropriate intervention, Pt will maintain intact skin integrity, Pt will remain free from injury, Pt will resume/maintain adequate cardiac output, Pt will state importance of adhering to medication regime, Pt/caregiver willreceive psychosocial support as needed, Pt/caregiver will state understanding of rehab plan, Pt/caregiver will state strategies to reduce risk factors, Pt/caregiver will state understanding of plan/goals of care, Pt/caregiver will state understanding of the D/C plan, Pt will demonstrate safe transfers, Pt will be without signs of aspiration, Pt/caregiver will be able to describe s/s of TIA/Stroke Interventions, Neurological Assess/monitor for abnormal posturing, Assess/monitor neurologic status, Assess/monitor VS per unit standards & prn, Call/Report variances in assessments to provider, Emergency airway equipment at bedside, Collaborate w/ provider to implement appropriate guidelines, C ollaborate with provider re: medication regime, Document & Monitor O2 Sats; Administer O2 as ordered, Identify psychosocial issues related to diagnosis/illness, If no bowel movement in 3 days activate bowel regime, [place] alternate means of communication, Keep patient's head & body in good alignment, Maintain HOB at least 30 deg, Maintain normothermia, report temp >101.5 F, Maintainpatient safety if unsteady gait, Maintain strict intake & output, Monitor Fluid & Electrolytes, Serum Osmolarity, Monitor for headaches, nausea, vomiting, Monitor speech fluency, aphasia, word finding difficulty, Physical assessment per unit standards, Provide emotional support to Pt/caregiv er, Teach & encourage deep breath & cough exercises, Teach and encourage use of Incentive spirometer, Teach pt/caregiver discharge plan & follow up care, Teach pt/caregiver on plan of care, treatment, s/s & meds, Teach pt/caregiver on use of pain scale BH Goals/Interventions, Neurological Yes Neurological, Problem Start 02/03/2024 23:53 Reviewed plan with, Neurological Patient Patient Progression, Neurological Pt progressing according to plan 02/09/2024 8:00 EDT Alteration in Neuro status Related to Acute Stroke (CVA) Goals & Outcomes, Neurological Pt will be hemodynamically stable, Lab studies/diagnostic tests within pt specific limits, Pt is safe with transfers & activities, Pt will be discharged withoutinfection, Pt will be Neurologically stable, Pt will become pain free with appropriate intervention, Pt will maintain intact skin integrity, Pt will remain free from injury, Pt will resume/maintain adequate cardiac output, Pt will state importance of adhering to medication regime, Pt/caregiver willreceive psychosocial support as needed, Pt/caregiver will state understanding of rehab plan, Pt/caregiver will state strategies to reduce risk factors, Pt/caregiver will state understanding of plan/goals of care, Pt/caregiver will state understanding of the D/C plan, Pt will demonstrate safe transfers, Pt will be without signs of aspiration, Pt/caregiver will be able to describe s/s of TIA/Stroke Interventions, Neurological Assess/monitor for abnormal posturing, Assess/monitor for gaze pattern/extraocular movements, Assess/monitor neurologic status, Assess/monitor VS per unit standards & prn, Call/Report variances in assessments to provider, Collaborate w/ provider to implement appropriate guidelines, Document & Monitor O2 Sats; Administer O2 as ordered, Identify psychosocial issues related to diagnosis/illness, If no bowel movement in 3 days activate bowel regime, Maintain normothermia, report temp >101.5 F, Maintain patient safety if unsteady gait, Maintain strict intake & output, Monitor Fluid & Electrolytes, Serum Osmolarity, Monitor for headaches, nausea, vomiting, Monitor speech fluency, aphasia, word finding difficulty, Teach pt/caregiver on plan of care,treatment, s/s & meds, Physical assessment per unit standards, Provide emotional support to Pt/caregiver, Teach pt/caregiver discharge plan & follow up care, Assess/monitor facial symmetry and tongue deviation, Assess pt using NIHSS scale on admit & D/C, Consult Speech Therapy as needed, Teach Pt/caregiver how to transfer position safely, Teach Pt/caregiver signs indicative of stroke BH Goals/Interventions, Neurological Yes Neurological, Problem Start 02/03/2024 23:53 Reviewed plan with, Neurological Patient Patient Progression, Neurological Pt progressing according to plan 02/09/2024 1:00 EDT Alteration in Neuro status Related to Acute Stroke (CVA) Goals & Outcomes, Neurological Lab studies/diagnostic tests within pt specific limits, Pt will be hemodynamically stable, Pt will be Neurologically stable, Pt will become pain free with appropriate intervention, Pt will maintain intact skin integrity, Pt will remain free from injury, Pt will resume/maintain adequate cardiac output, Pt will state importance of adhering to medication regime, Pt/caregiver will state strategies to reduce risk factors, Pt/caregiver will state understanding of plan/goals of care, Pt will demonstrate safe transfers, Pt will be without signs of aspiration, Pt/caregiver will be able to describe s/s of TIA/Stroke Interventions, Neurological Assess/monitor for abnormal posturing, Assess/monitor neurologic status, Assess/monitor VS per unit standards & prn, Call/Report variances in assessments to provider, Collaborate w/ provider to implement appropriate guidelines, Collaborate with provider re: medication regime, Document & Monitor O2 Sats; Administer O2 as ordered, Emergency airway equipment at bedside, Identify psychosocial issues related to diagnosis/illness, If no bowel movement in 3 days activate bowel regime, [place] alternate means of communication, Keep patient's head & body in good alignment, Maintain HOB at least 30 deg, Maintain normothermia, report temp >101.5 F, Maintainpatient safety if unsteady gait, Maintain strict intake & output, Monitor Fluid & Electrolytes, Serum Osmolarity, Monitor for headaches, nausea, vomiting, Monitor speech fluency, aphasia, word finding difficulty, Physical assessment per unit standards, Provide emotional support to Pt/caregiver, Teach & encourage deep breath & cough exercises, Teach and encourage use of Incentive spirometer, Teach pt/caregiver discharge plan & follow up care, Teach pt/caregiver on plan of care, treatment, s/s & meds, Teach pt/caregiver on use of pain scale Goals/Interventions, Neurological Yes Neurological, Problem Start 02/03/2024 23:53 Reviewed plan with, Neurological Patient Patient Progression, Neurological Pt progressing according to plan 02/08/2024 14:00 EDT Alteration in Neuro status Related to Acute Stroke (CVA) Goals & Outcomes, Neurological Lab studies/diagnostic tests within pt specific limits, Pt will be hemodynamically stable, Pt will be Neurologically stable, Pt will become pain free with appropriate intervention, Pt will maintain intact skin integrity, Pt will remain free from injury, Pt will resume/maintain adequate cardiac output, Pt will state importance of adhering to medication regime, Pt/caregiver will state strategies to reduce risk factors, Pt/caregiver will state understanding of plan/goals of care, Pt will demonstrate safe transfers, Pt will be without signs of aspiration, Pt/caregiver will be able to describe s/s of TIA/Stroke Interventions, Neurological Assess/monitor for abnormal posturing, Assess/monitor for gaze pattern/extraocular movements, Assess/monitor for increased Intracranial Pressure, Assess/monitor neurologicstatus, Assess/monitor VS per unit standards & prn, Call/Report variances in assessments to provider, Monitor Fluid & Electrolytes, Serum Osmolarity, Monitor for headaches, nausea, vomiting, Monitor speech fluency, aphasia, word finding difficulty, Physical assessment per unit standards, Provide emotional support to Pt/caregiver Goals/Interventions, Neurological Yes Neurological, Problem Start 02/03/2024 23:53 Reviewed plan with, Neurological Patient Patient Progression, Neurological Pt progressing according to plan . Evaluation pt admitted for stroke. Patient AOX4 with lethargy. Pt reports irritability and disturbances to loud noises. Pt reports headache 7/10 pain and tylenol prn given. Pt denies chest pain, SOB, diziiness,or double vision. Pt has slight L facial droop. PERRLA. Pt has L sided weakness 4/5 and R sided full strength 5/5. PT endorses numbness and tingling in both hands. Pt on RA with clear lung sounds. Pton tele box #[id number]. LBM on 02/09. Chronic covarrubias in place for retention, patent with clear yellow urine return. Morning 9am amlodipine held per provider order for bradycardia for 54 bpm. Pt has intact PIV in RAC for access. Pt ate all meals with good appetite and thirst and took pills whole. Pt will DC today to a subacute rehab. . * Isabelle BAI, Parvin: MODIFY, MODIFY, SIGN, VERIFY, PERFORM Event Display: Progress Note Hospital Authored Date: Patient: RITO VERDE Age: 58 years Sex: Female : 1965 Associated Diagnoses: None Author: Isabelle BAI, Parvin Findings Problem Related to Alteration in Neurological : Alteration in Neurological Function/new 02/10/2024 3:00 EDT Alteration in Neuro status Related to Acute Stroke (CVA) Goals & Outcomes, Neurological Lab studies/diagnostic tests within pt specific limits, Pt is safe with transfers & activities, Pt will be discharged without infection, Pt will be hemodynamically stable, Pt will be Neurologically stable, Pt will become pain free with appropriate intervention, Pt will maintain intact skin integrity, Pt will remain free from injury, Pt will resume/maintain ad equate cardiac output, Pt will state importance of adhering to medication regime, Pt/caregiver willreceive psychosocial support as needed, Pt/caregiver will state understanding of rehab plan, Pt/caregiver will state strategies to reduce risk factors, Pt/caregiver will state understanding of plan/goals of care, Pt/caregiver will state understanding of the D/C plan, Pt will demonstrate safe transfers, Pt will be without signs of aspiration, Pt/caregiver will be able to describe s/s of TIA/Stroke Interventions, Neurological Assess/monitor for abnormal posturing, Assess/monitor neurologic status, Assess/monitor VS per unit standards & prn, Call/Report variances in assessments to provider, Collaborate w/ provider to implement appropriate guidelines, Collaborate with provider re: medication regime, Document & Monitor O2 Sats; Administer O2 as ordered, Emergency airway equipment at bedside, Identify psychosocial issues related to diagnosis/illness, If no bowel movement in 3 days activate bowel regime, [place] alternate means of communication, Keep patient's head & body in good alignment, Maintain HOB at least 30 deg, Maintain normothermia, report temp >101.5 F, Maintainpatient safety if unsteady gait, Maintain strict intake & output, Monitor Fluid & Electrolytes, Serum Osmolarity, Monitor for headaches, nausea, vomiting, Monitor speech fluency, aphasia, word finding difficulty, Physical assessment per unit standards, Provide emotional support to Pt/caregiver, Teach & encourage deep breath & cough exercises, Teach and encourage use of Incentive spirometer, Teach pt/caregiver discharge plan & follow up care, Teach pt/caregiver on plan of care, treatment, s/s & meds, Teach pt/caregiver on use of pain scale Goals/Interventions, Neurological Yes Neurological, Problem Start 02/03/2024 23:53 Reviewed plan with, Neurological Patient Patient Progression, Neurological Pt progressing according to plan . Nursing Data Neurological Data. : Neurological Data. 02/09/2024 21:00 EDT Neurological Symptoms Altered sensation or tingling, Back pain, Numbness, Weakness or loss of muscle strength Level of Consciousness Full Consciousness Orientated to person, place, time Person, Place, Time, Event Characteristics of Speech Clear and normal Swallowing Difficulty None Pupil description, left Regular Pupil description, right Regular Pupil reaction, left Brisk Pupil reaction, right Brisk Strength LUE 4-Active movement against gravity & some resistance Strength RUE 5-Active movement against gravity & full resistance Strength LLE 4-Active movement against gravity & some resistance Strength RLE 5-Active movement against gravity & full resistance Tone LUE Normal Tone RUE Normal Tone LLE Normal Tone RLE Normal Sensation LUE Intact Sensation RUE Intact Sensation LLE Intact Sensation RLE Intact Movement LUE Spontaneous Movement RUE Spontaneous Movement LLE Spontaneous Movement RLE Spontaneous Gait Unable to assess Response Eye Opening Spontaneously Motor Response-Adult Obeys commands Verbal Response-Adult Oriented and converses Elliott Coma Score 15 1 - 10 Pain Scale Score 10 Pain Interventions Pharmacological, PRN medication Neuro WNL except Eyes and Movements Conjugate gaze: Move in same direction at same speed Headache Mild Swallow - Neuro Normal . Evaluation A&Ox4. Irritable at times. Able to make needs known and follow commands. Speech clear. PERRL, JAMES R side 5/5 L side 4/5. Pt reporting DOS SANTOS and abdominal pain, Tylenol and Dilaudid administered withwith positive effect. Pt hypertensive, IV hydralazine administered x1 with positive effect. Covarrubias in place and patent. Last BM 02/09. Safety maintained. See CIS for more information. . Discharge Information Case Management Discharge Plan : Case Management Discharge Plan Data 02/04/2024 12:43 EDT Discharge Nursing Homes/Rehab Facilities [facility] Rehabilitation Discharge : Rehab Discharge Index 02/09/2024 10:33 EDT Walker: distance < 10 02/09/2024 10:29 EDT Transfer tub/shower OT Plan Min assist 02/08/2024 10:14 EDT Comments on treatment indicated OT to address ADL's, transfers, LUE function Full chart review completed Yes Hospital course Please see comment Transfer tub/shower OT Plan Min assist 02/08/2024 8:49 EDT Comments on treatment indicated 58-year-old female presented L sided weakness and facila droop. CTH showed intraparenchymal hemorrhage in the right basal ganglion with mild mass effect. WBAT, fall risk. PT f/u for ther ex, bed mob, transfers, gait, and balance. Rec post acute rehab. Walker: distance < 10 Distance pt will ambulate 15ft Full chart review completed Yes Hospital course see comment Other findings Pt is a mod complexity eval d/t current medical status, and current level of functional mobility. Plan of care PT Gait training, Transfer training, Therapeutic exercise, Functional Activities, Balance training, Neuromuscular education 02/07/2024 9:03 EDT Comments on treatment indicated regular diet, thin liquids, set-up tray to cut food into bite-sized pieces, frequent check-ins if lethargic Full chart review completed Yes Hospital course Hospital course * Do VINYL DIPPER, Katelyn T: PERFORM, MODIFY Event Display: Progress Note Hospital Authored Date: [id number] Patient: ??RITO VERDE ? Age:??58 Years?Sex:??Female?:??1965?? Subjective Patient AAO x 3, sometimes confused, complaining of anxiety and headache and pain everywhere??and keep??asking to go home. Blood pressure improved. ??Labs stable Patient denies any chest pain or short of breath Review of Systems All other reviews of systems are negative except mentioned above Objective Vital Signs?? Temperature: 97.8 DegF (02/09/24 11:21:00) Temperature Route: Oral (02/09/24 11:21:00) Pulse Rate: 65 bpm (02/09/24 11:21:00) Respiratory Rate: 18 br/min (02/09/24 14:38:00) Systolic Blood Pressure:??139 mm Hg??High (02/09/24 11:32:00) Diastolic Blood Pressure:??89 mm Hg??High (02/09/24 11:32:00) Blood pressure sites: Arm, right (02/09/24 11:21:00) Mean Arterial Pressure: 106 mm Hg (02/09/24 11:21:00) Pulse Pressure: 50 mm Hg (02/09/24 11:21:00) Oxygen Saturation: 96 % (02/09/24 11:21:00) Mode of Delivery (Oxygen): Room air (02/09/24 11:21:00) Early Warning Score: 2 (02/09/24 14:39:26) ? Intake/Output? 02/02 20:34 04 07:00 04 07:00 04 07:00 02/05 07:00 ?? 02/08 15:34 02/08 15:34 0403 06:59 0402 06:59 02/06 06:59 Intake ? 7017.9 ?780 ? 2386.7 ?640 ? 60 Output ?32746 ? 3300 ? 1400 ? 1965 ? 1950 Net Total ?-4547.1 ?-2520 ?986.7 ?-1325 ?-1890 ? Urine Count ?8 ?0 ?0 ?0 ?3 ? Physical Exam Constitutional: Alert, in no acute distress. Head: Normocephalic. Eyes: PERRLA. Respiratory:??Clear to auscultation. No wheezing or rhonchi.??No use of accessory muscles.?? Cardiovascular:??S1 S2 regular. No murmurs, rubs or gallops. Gastrointestinal:??Abdomen soft, non-tender, non-distended. Normal bowel sounds.?? Extremities: No lower extremity pitting edema.?? Neurologic:??AAOx3,?? Speech normal,??LFD?? Left-sided weakness 2/5 Skin:??No rash.?? Psychiatric: Normal mood and affect. _ Inpatient Medications Medications (26) Active SCHEDULED: (14) Amlodipine 10 mg Tablet (amLODIPine 10 mg oral tablet) ??10 mg, By Mouth, Daily Aripiprazole 5 mg Tablet (ARIPiprazole 5 mg oral tablet) ??5 mg, By Mouth, Daily at bedtime Atorvastatin 20 mg Tablet (atorvastatin 20 mg oral tablet) ??20 mg, By Mouth, Daily Ceftriaxone 1 Gm Inj (Ceftriaxone Inj) ??1 Gm, IVPB, Every 24 hours Famotidine 20 mg Tablet (famotidine 20 mg oral tablet) ??40 mg, By Mouth, Daily Folic Acid 1 mg Tablet (Folic Acid Tablet) ??1 mg, By Mouth, Daily Gabapentin 300 mg Capsule (gabapentin 300 mg oral capsule) ??600 mg, By Mouth, 3 times a day Heparin 5000 units/mL Inj (1 mL) (Heparin Inj) ??5,000 units 1 mL, Subcutaneous Injection, 3 times a day Lisinopril 20 mg Tablet (lisinopril 20 mg oral tablet) ??40 mg, By Mouth, Daily Multivitamin Therapeutic / Minerals Tablet (Multivit Therapeutic/Minerals Tablet) ??1 tablet, By Mouth, Daily NaCl 0.9% Flush 3ml (NaCL 0.9% Flush) ??3 mL, IV Push, Every 8 hours Pyridoxine 50 mg Tablet (Pyridoxine Tablet) ??50 mg, By Mouth, Daily Thiamine 100 mg Tablet (thiamine 100 mg oral tablet) ??100 mg, By Mouth, Daily Venlafaxine 150 mg XR Capsule (venlafaxine 150 mg oral capsule, extended release) ??150 mg, By Mouth, Daily CONTINUOUS: (0) PRN: (12) Acetaminophen 325 mg Tablet (Tylenol 325 mg oral tablet) ??975 mg, By Mouth, Every 6 hours Albuterol 90mcg/Inhalation Inhaler HFA (albuterol CFC free 90 mcg/inh inhalation aerosol) ??180 mcg2 puffs, Inhalation, Every 4 hours Clonazepam 1 mg Tablet (clonazePAM 1 mg oral tablet) ??1 mg, By Mouth, Daily Dextromethorphan-Guaifenesin 20 mg-200 mg/10 mL Liqu UD (Robitussin DM Liquid) ??10 mL, By Mouth, Every 4 hours Docusate Sodium 100 mg Capsule (Docusate Sodium Capsule) ??100 mg 1 capsule, By Mouth, 2 times a day hydrALAZINE 20 mg/mL Inj (hydrALAZINE Inj) ??10 mg 0.5 mL, IV Push Slowly, Every 6 hours HydrOXYzine Pamoate 25mg Capsule (hydrOXYzine pamoate 25 mg oral capsule) ??50 mg, By Mouth, 2 times a day Melatonin 3 mg Tablet (Melatonin Tablet) ??3 mg, By Mouth, Daily at bedtime NaCl 0.9% Flush 3ml (NaCL 0.9% Flush) ??3 mL, IV Push, Every 8 hours Polyethylene Glycol 17 Gm Powder (MiraLax Powder) ??17 Gm 1 pack/packet, By Mouth, Daily Senna Tablet ??8.6 mg 1 tablet, By Mouth, 2 times a day Simethicone 80 mg Chewable Tablet (Simethicone Tablet) ??80 mg, Chew, 3 times a day ? Results Recent Labs BACTERIOLOGY Urine Culture Results Final report ()?? 02/07/2024 04:11 ?? BLOOD COUNT & DIFF WBC 7.9 k/mm3 ()?? 02/09/2024 06:22 RBC 4.64 m/mm3 ()?? 02/09/2024 06:22 Hgb 13.4 Gm/dL ()?? 02/09/2024 06:22 Hct 41.2 % ()?? 02/09/2024 06:22 MCV 88.8 femtoliters ()?? 02/09/2024 06:22 MCH 28.9 pg ()?? 02/09/2024 06:22 MCHC 32.5 g/dL (Low)?? 02/09/2024 06:22 Platelet Count 196 k/mm3 ()?? 02/09/2024 06:22 RDW-SD 44.5 femtoliters ()?? 02/09/2024 06:22 MPV 10.9 femtoliters ()?? 02/09/2024 06:22 Nucleated RBC (Automated) 0.0 #/100 WBC'S ()?? 02/09/2024 06:22 Abs. NRBC 0.0 k/mm3 ()?? 02/09/2024 06:22 ?? CHEM GENERAL Sodium 144 mmol/L ()?? 02/09/2024 06:22 Potassium 4.4 mmol/L ()?? 02/09/2024 06:22 Chloride 110 mmol/L (High)?? 02/09/2024 06:22 Bicarbonate Level 23 mmol/L ()?? 02/09/2024 06:22 Anion Gap 11 ()?? 02/09/2024 06:22 Glucose Level 89 mg/dL ()?? 02/09/2024 06:22 BUN 16 mg/dL ()?? 02/09/2024 06:22 Creatinine-Blood 0.9 mg/dL ()?? 02/09/2024 06:22 Estimated GFR Creatinine 79 ML/MIN/1.73 M2 ()?? 02/09/2024 06:22 ?? URINE OTHER Est Creatinine Clearance 56.34 mL/min ()?? 02/09/2024 07:39 Urine Culture Isolate 1 Comment ()?? 02/07/2024 04:11 ? Assessment/Plan Diagnoses Acute kidney injury ??(N17.9) Hypotension ??(I95.9) Mood disorder ??(F39) 1. ??Hemorrhagic stroke ??(I61.9) 2. ??HTN (hypertension) ??(I10) 3. ??Hyperlipidemia ??(E78.5) 4. ??Migraines ??(G43.909) 5. ??Oropharyngeal dysphagia ??(R13.12) 6. ??Impaired mobility and activities of daily living ??(Z74.09) 7. ??Other specified health status ??(Z78.9) ?? Assessment:??58-year-old female with PMH of HTN, HLD, history of migraines, anxiety was brought to the ED with a concern for stroke. Initially in the ED patient remains afebrile, HR 70, RR 14, BP 137/87, saturation 95% on room air. WBC 6.8, Hgb 13.9, PLT 239, electrolytes normal, BUN/creatinine 19/0.9, blood glucose 91, troponin 16?13,. Negative, chest x-ray in process, CT of the head with intraparenchymal hemorrhage in the right basal ganglion. CT angio of the head and neck in process. Neurology was consulted recommend repeat CT head in 6 hours, maintain SBP less than 160 with HOB 30 degrees, MRI with and without contrast. Patient was received Tylenol and started on nicardipine drip to maintain blood pressure less than 160. Patient will be admitted to medicine service for further management. ?? Hemorrhagic stroke (I61.9):??. ?Antithrombotic Therapy by End of Hospital Day 2:??Hemorrhagic Stroke ?Statin Ordered:??Hemorrhagic Stroke ?? Migraines (G43.909):??. ??Neurology on board, appreciate recommendations -Telemetry monitoring -neuro checks every 4 hours now that she is more awake Per neuro, discontinue amantadine -okay for SQH per neuro -Seizure precautions -passed bedside swallow evaluation, diet resumed, hold for sedation -consult PM&R PT/OT??recommend acute rehab -Stat CT head for any acute changes in the neurological findings - No antiplatelets or therapeutic anticoagulation, hold aspirin ?? HTN (hypertension) (I10):??. ?? Hypotension (I95.9):??resolved ?? Bradycardia (R00.1): 4/1??hypotension??to 70, resolved with IV fluid -per EKG, sinus laila, asx, states that she has history of low HR in the past -low threshold to consult cards should it worsen or become concerning -DC home metoprolol?off nicardipine -Pain control Resume??amlodipine and lisinopril -Aspirin held -discontinued??CIWA as patient has been in hospital >3 days and shown no s/s of withdrawal ?? Acute kidney injury (N17.9):??resolved ??Cr 0.9---1.4, resolved IV fluid -likely secondary to relative hypoperfusion ?? Abnormal urinalysis (R82.90)? Urinary retention (R33.9)? Per son,??patient had been straight cath at home for 5-year. ??He is not sure about the reason? Abnormal UA but??urine culture grow Diphtheroids, not Corynebacterium urealyticum. ??Discussed withantimicrobial,??likely not UTI and ceftriaxone??does not cover this organism Have Covarrubias catheter for urinary retention He follow-up with urology outpatient ?? Hyperlipidemia (E78.5):??Continue statin GERD (gastroesophageal reflux disease) (K21.9): -famotidine??40 mg daily Mood disorder (F39): -hydroxyzine??as needed, aripiprazole 5 mg daily ?? VTE Prophylaxis:??-Heparin TID cleared by neuro Code Status:??Full?? Diet: cardiac diet, passed bedside swallow evaluation Updated son Ran 4/, agree??for rehab ?? Consult note * Julia WEBER, Fanny E: PERFORM, MODIFY, MODIFY Sergey Florez MD: MODIFY, MODIFY Gautam VIERA, Sergey: MODIFY, MODIFY Sergey Florez MD: MODIFY Event Display: Consultation Note Authored Date: [id number] Patient: ??DIDATO, RITO ? Age:??58 Years?Sex:??Female?:??1965?? Chief Complaint/Reason for Consult Stroke alert History of Present Illness 58-year-old female patient with past medical history??significant for hypertension,??anxiety, hyperlipidemia,??migraines.?? Presented??with??left side??hemiplegia,??left facial droop,??slurring. NIH scale 19. CTH showed intraparenchymal hemorrhage in the right basal ganglion, with mild mass effect o n 3rd ventricle. CTA Head/Neck without LVO or high grade stenosis.?? Patient placed on CIWA protocol, unclear??as to how much??ethanol is consumed daily. ??Bedside examination done today patient lethargic??with suspected eyelid apraxia??but able to be aroused. ?? Patient will remain n.p.o.??secondary to??dysarthria??and lethargy. Review of Systems As mentioned above Physical Exam Vitals & Measurements T:??97.2?F?? HR:??44??(Monitored)?? RR:??22?? RR:??22?? BP:??127/83?? SpO2:??96%?? HT:??160??cm?? WT:??81??kg?? BMI:??31.64?? Measurements?? Height: 160 cm (02/03/24) Weight: 81 kg (02/03/24) Dry Weight: 81 kg (02/03/24) Body Mass Index:??31.64 kg/m2??Critical (02/03/24) ? General:??Lethargic.?? No apparent distress. Psychiatric: Mood:??Normal.?? Irritable Oriented X 3 ?? HEENT: Cranial Nerves II-XII: Left-sided facial droop EOMI.?? Visual prado: Eyelid apraxia,??not tracking on command.?? Very limited exam??but no field cut evident. ?? Extremities:?? Edema:??None.?? Passive ROM:??Normal all limbs.? Neurologic? Follows Commands: Able to follow most commands Language:??Normal.?Dysarthria:??Mild. ??Dysphonia:??None.? Motor Exam: left 3/5 plantar flexion, 4/5 LUE, 5/5 right extremities Sensory Exam: light touch??normal??no extinction to double simultaneous stimulation.??_ Spasticity Exam:??None.? Mobility Exam:??Unable to perform ?? Swallow_: ??Unable to perform, will remain NPO Assessment/Plan 58-year-old female with past medical history significant for hypertension, anxiety, hyperlipidemia,migraines. ??Presented??to??the ED with left-sided hemiplegia, left facial droop, slurring.?? Placed on CIWA protocol.?? Volume of ethanol consumption daily is unclear.??CTH showed intraparenchymal hemorrhage in the right basal ganglion with mild mass effect.?? Patient remains??lethargic, however able to??follow some commands??and oriented. ?? Some worsening as possible in the next 72 or so??hours. ?? Recommendations: ?? Activity:??Mobilize with PT??when more awake Bowel Regimen: Monitor on current bowel regimen of senna simethicone Bladder: [place] Cognition/psychopharmacology:??On CIWA protocol, continue to monitor?? DVT prophylaxis:??Has pneumatic boots in place. ??Chemical??prophylaxis when okay with neurology. ?? Neurology:??Appreciate Neurology Note. Pain Management:??Agree with current regimen.?? Spasticity:??None ?? Swallow:??Continue strict n.p.o. PM&R or speech therapy can follow-up when she is more awake. ?? Current rehab treatment & further recommendations: Too lethargic currently. PT??when awake and ready to try to mobilize. Speech therapy??if needed as above. Will determine OT needs??when she is more awake. ?? Disposition: Acute Inpatient Rehab Facility (IRF).?? Most likely ?? Code Status:??Full Resuscitation HCP:??Has HCP in CIS ?? Patient seen and note co-authored with??TIA Camejo. Problem List/Past Medical History Ongoing Anxiety Cerebrovascular disease Gastroesophageal reflux disease Heart disease Hyperlipidemia Hypertensive disorder Migraines Obese class I Procedure/Surgical History D&C, right salpingo-oophorectomy: 09/05/13 section - at term: 1999 Salpingectomy, complete or partial, unilateral or bilateral (separate procedure): 1999 section - at term: 1994 section - at term: 1992 hand surgery Home Medications Acetaminophen: 650 mg = 1 tablet, By Mouth, 2 times a day, NEEDED FOR PAIN OR FEVER Acetaminophen/Butalbital/Caffeine: 2 tablet, By Mouth, Every 4 hours Albuterol: 2 puffs, Inhalation, Every 4 hours Amlodipine: TAKE ONE TABLET EVERY DAY Aripiprazole: 5 mg = 1 tablet, By Mouth, Daily at bedtime Ascorbic Acid: 500 mg = 1 tablet, By Mouth, Daily Aspirin: TAKE ONE TABLET BY MOUTH EVERY DAY Atorvastatin: 20 mg = 1 tablet, By Mouth, Daily Baclofen: 10 mg = 1 tablet, By Mouth, 3 times a day, PRN (Spasm) Cetirizine: TAKE ONE TABLET BY MOUTH EVERY DAY Cholecalciferol Diclofenac Topical: 2 Gm, Topically, 2 times a day Famotidine: 40 mg = 2 tablet, By Mouth, Daily Fluticasone: 1 puffs, Inhalation, 2 times a day Gabapentin: 600 mg = 1 tablet, By Mouth, 3 times a day Hydrochlorothiazide: TAKE ONE TABLET BY MOUTH EVERY MORNING HydrOXYzine: 50 mg = 1 capsule, By Mouth, 2 times a day, PRN (as needed for anxiety) Ibuprofen: 400 mg = 1 tablet, By Mouth, 3 times a day, PRN (Pain , Mild) Lidocaine Topical: 1 patch, Topically, Daily, LEAVE ON FOR 12 HOURS, THEN OFF FOR 12 HOURS DIRECTED. Lisinopril: TAKE ONE TABLET EVERY MORNING Methenamine: TAKE ONE TABLET BY MOUTH EVERY DAY Metoprolol: TAKE ONE TABLET BY MOUTH TWICE DAILY Miscellaneous Rx: TAKE ONE CAPSULE EVERY DAY Triamcinolone Nasal: 110 mcg = 2 sprays, Nares, Both, Daily Venlafaxine: 150 mg = 1 capsule, By Mouth, Daily Hospital Medications Medications (27) Active SCHEDULED: (12) Acetaminophen/Butalbital/Caffeine Tablet (Fioricet Tablet) ??2 tablet, By Mouth, Every 4 hours Aripiprazole 5 mg Tablet (ARIPiprazole 5 mg oral tablet) ??5 mg, By Mouth, Daily at bedtime Atorvastatin 20 mg Tablet (atorvastatin 20 mg oral tablet) ??20 mg, By Mouth, Daily Famotidine 20 mg Tablet (famotidine 20 mg oral tablet) ??40 mg, By Mouth, Daily Folic Acid 1 mg Tablet (Folic Acid Tablet) ??1 mg, By Mouth, Daily Gabapentin 300 mg Capsule (gabapentin 300 mg oral capsule) ??600 mg, By Mouth, 3 times a day Lisinopril 20 mg Tablet (lisinopril 20 mg oral tablet) ??40 mg, By Mouth, Daily Metoprolol 50 mg Tablet (metoprolol 50 mg oral tablet) ??50 mg, By Mouth, 2 times a day Multivitamin Therapeutic / Minerals Tablet (Multivit Therapeutic/Minerals Tablet) ??1 tablet, By Mouth, Daily NaCl 0.9% Flush 3ml (NaCL 0.9% Flush) ??3 mL, IV Push, Every 8 hours Pyridoxine 50 mg Tablet (Pyridoxine Tablet) ??50 mg, By Mouth, Daily Thiamine 100 mg Tablet (thiamine 100 mg oral tablet) ??100 mg, By Mouth, Daily CONTINUOUS: (0) PRN: (15) Albuterol 90mcg/Inhalation Inhaler HFA (albuterol CFC free 90 mcg/inh inhalation aerosol) ??180 mcg2 puffs, Inhalation, Every 4 hours Dextromethorphan-Guaifenesin 20 mg-200 mg/10 mL Liqu UD (Robitussin DM Liquid) ??10 mL, By Mouth, Every 4 hours Docusate Sodium 100 mg Capsule (Docusate Sodium Capsule) ??100 mg 1 capsule, By Mouth, 2 times a day hydrALAZINE 20 mg/mL Inj (hydrALAZINE Inj) ??10 mg 0.5 mL, IV Push Slowly, Every 6 hours HYDROmorphone 0.5 mg/0.5 mL Inj Syringe (Dilaudid Inj) ??0.2 mg 0.2 mL, IV Push Slowly, Every 4 hours HydrOXYzine Pamoate 25mg Capsule (hydrOXYzine pamoate 25 mg oral capsule) ??50 mg, By Mouth, 2 times a day Lorazepam 1 mg Tablet (Ativan Tablet) ??1 mg, By Mouth, Every 2 hours Lorazepam 2 mg Tablet (Ativan Tablet) ??2 mg, By Mouth, Every 2 hours Lorazepam 2 mg Tablet (LORazepam Tablet) ??2 mg, By Mouth, Every hour Melatonin 3 mg Tablet (Melatonin Tablet) ??3 mg, By Mouth, Daily at bedtime NaCl 0.9% Flush 3ml (NaCL 0.9% Flush) ??3 mL, IV Push, Every 8 hours OxyCODONE 5 mg IR Tablet (oxyCODONE 5 mg oral tablet) ??2.5 mg, By Mouth, Every 6 hours Polyethylene Glycol 17 Gm Powder (MiraLax Powder) ??17 Gm 1 pack/packet, By Mouth, Daily Senna Tablet ??8.6 mg 1 tablet, By Mouth, 2 times a day Simethicone 80 mg Chewable Tablet (Simethicone Tablet) ??80 mg, Chew, 3 times a day Lab Results PM&R Labs WBC: 6.8 k/mm3 (02/03/24) Platelet Count: 239 k/mm3 (02/03/24) Sodium: 140 mmol/L (02/03/24) BUN: 19 mg/dL (02/03/24) Creatinine-Blood: 0.9 mg/dL (02/03/24) AST (SGOT): 17 units/L (02/03/24 18:49:00) * Varun FIELDS, La Munoz: MODIFY, MODIFY, MODIFY, PERFORM, MODIFY, MODIFY, MODIFY Event Display: Consultation Note Authored Date: Patient: ??RITO VERDE ? Age:??58 Years?Sex:??Female?:??1965?? Chief Complaint/Reason for Consultation Left facial droop,??Left??sided weakness, Slurred speech History of Present Illness Ms. Verde is a 58-year-old female with PMH significant for anxiety, HTN, HLD, migraines, marijuanause, and CVA who presented as an acute stroke for Left facial droop, left sided weakness, and slurred speech. LWK: 5:00pm.??Apparently the patient had rolled out of bed at some point. Someone had come to check on her and found her at approximately 5:40pm with left facial droop, left sided weakness,and slurred speech. EMS was dispatched. BP via EMS: 168/97. POC: 128. In the ED, NIHSS: 19. CT Headdemonstrating approximately 3cc Right BG IPH with mild mass effect on 3rd ventricle. CTA Head/Neck without LVO or high grade stenosis. ?? Notably, patient stated recent BP at home 220/159, and indicated frequent high BPs with difficulty controlling blood pressure. Additionally, patient reported she had a couple of beers last night and a Shot today. States she does not drink daily, but deflects when asked how much she drinks. Objective Vital Signs?? Temperature?97.9 ?(20:22) Systolic Blood Pressure?134 ?(20:22) Diastolic Blood Pressure?71 ?(20:22) Pulse?70 ?(20:22) SpO2?96 ?(20:22) Respiratory Rate?17 ?(20:22) ? Ventilator Settings?? No qualifying data available. ?NIH Stroke Scale: ?? 1a. LOC (0-alert; 1-not alert, arousable; 2-not alert, obtunded; 3- nonresponsive): 0 1b. Questions (0-answers two correctly; 1-answers one correctly; 2-answers neither correctly): 0 1c. Commands (0-perform two tasks; 1-performs one task; 2-performs neither tasks): 0 2. Gaze (0-normal; 1-partial gaze palsy; 2-forced deviation): 2 3. Visual prado (0-no visual loss; 1-partial hemianopsia; 2-complete hemianopsia; 3-bilateral hemianopsia): 1 4. Facial palsy (0-normal; 1-minor palsy; 2-partial palsy; 3-complete paralysis): 2 5a. Motor left arm (0-normal; 1-drift before 10 sec; 2-falls before 10 sec; 3-no effort against gravity; 4-no movement): 4 5b. Motor right arm (0-normal; 1-drift before 10 sec; 2-falls before 10 sec; 3- no effort against gravity; 4-no movement): 1 6a. Motor left leg (0-normal; 1-drift before 5 sec; 2-falls before 5 sec; 3-no effort against gravity; 4-no movement): 4 6b. Motor right leg (0-normal; 1-drift before 5 sec; 2-falls before 5 sec; 3-no effort against gravity; 4-no movement): 1 7. Ataxia (0-absent; 1-one limb; 2-two limbs): n/a - cannot complete on left 8. Sensory (0-absent; 1-mild/moderate; 2-severe/total loss): 2 9. Language (0-normal; 1-mild/moderate loss; 2-severe aphasia; 3-mute): 0 10. Dysarthria (0-normal; 1-mild/moderate; 2-severe): 1 11. Extinction (0-normal; 1-mild-one modality; 2-[id number] modality): 1 ?? NIHSS Total:??19 ? Physical Exam General:??58-year-old female, who appears stated age. lethargic, but responds appropriately to questioning and follows commands. Speech slurred. Integ: Skin is warm, dry and intact. No diaphoresis.?? HEENT: Eyes symmetrical. Pupils 2mm, equally round, regular, and responsive. Right gaze preference with inability to completely cross eyes to the left. No nystagmus. Hearing grossly intact.?? Respiratory: Respirations even and unlabored. GI: Abd soft, and nondistended. Extremities: warm and perfused. Neurological: Mental status: Mildly altered, but A&O x3. Answers questions appropriately and follows commands. Cranial Nerves: II: Pupils 2mm equally round, regular and reactive to light III, IV, : Right gaze preference with inability to completely cross eyes to the left. No nystagmus. Visual field defect on left V: Facial sensation intact to light touch in V1, V2, and V3 segments; neglect of Left V3 segment VII: Left facial droop VIII: Normal hearing to speech IX, X:??Normal palatal elevation, no uvular deviation.?? XII: Midline tongue protrusion Motor: Musculoskeletal development appropriate for age and gender.??Plegic on left?? Strength Office Support Associate: L: 0/5 ? R: 5/5 Deltoids: L: 0/5 ? R:4/5 Biceps: ?? L: 0/5 ? R:5/5 Triceps: ?? L: 0/5 ? R:5/5 Knee extension: L: 0/5 ? R: 4/5 Sensory: Sensation intact to light touch in all limbs. No hemineglect, no extinction to double sided stimulation Coordination: Misses target on finger to nose on right, but no overt dysmetria. Unable to complete on left Gait: Deferred. Assessment/Plan 58-year-old female with PMH significant for anxiety, HTN, HLD, migraines, marijuana use, and CVA who presented as an acute stroke for Left facial droop, left sided weakness, and slurred speech. LWK: 5:00pm.??Apparently the patient had rolled out of bed at some point. Someone had come to check on her and found her at approximately 5:40pm with left facial droop, left sided weakness, and slurred speech. BP via EMS: 168/97. BP 181/100 on monitor in ED. POC: 128. In the ED, NIHSS: 19. CT Head demonstrating approximately 3cc Right BG IPH with mild mass effect on 3rd ventricle. CTA Head/Neck withoutLVO or high grade stenosis. ?? Notably, patient stated recent BP at home 220/159, and indicated frequent high BPs with difficulty controlling blood pressure. Additionally, patient reported??ETOH use last night and today.??States she does not drink daily, but deflects when asked how much/often she drinks. ? DDx:?? ~3cc Right BG IPH with mild mass effect - ? Hypertensive vs other. ICH Score: 0. PBD: 0. ? Recommendations:?? - Admit??for q2hr neuro checks,??VS, and telemetry monitoring - Maintain SBP <160; PRN Nicardipine gtt - HOB >30 degrees - No antiplatelets??or anticoagulation - Repeat CT Head in 6hrs - Obtain MRI Brain both w/ and w/o - Avoid hypoglycemia - CIWA protocol - NPO until cleared - PM&R consult - STAT CT Head for any acute changes?? - DVT prophylaxis with pneumatic compression devices - Remainder of care per primary team ? Thank you.??Neurology will follow. Please call with any questions/concerns ?? d/w ??Amauri d/w ED team ? Histories Past Medical History/Problem List Active Problems??(8) Anxiety Cerebrovascular disease Gastroesophageal reflux disease Heart disease Hyperlipidemia Hypertensive disorder Migraines Severe obesity ? Past Surgical History D&C, right salpingo-oophorectomy: 09/05/13 section - at term: 1999 Salpingectomy, complete or partial, unilateral or bilateral (separate procedure): 1999 section - at term: 1994 section - at term: 1992 hand surgery ? Social History Alcohol Details:??Use: Current. Substance Abuse Details:??Use: Past. Tobacco Details:??Use: Never (less than 100 in lifetime). Electronic Cigarette/Vaping Details:??Electronic Cigarette Use: Never. ? Medications Home Medications Acetaminophen (acetaminophen 650 mg oral tablet, extended release)?1?tab(s)?650?Milligram?By Mouth?2 times a day? NEEDED FOR PAIN OR FEVER Acetaminophen/Butalbital/Caffeine (Fioricet Tablet)?2?tab(s)?By Mouth?Every 4 hours Albuterol (Proventil HFA 90 mcg/inh inhalation aerosol with adapter)?2?puff(s)?Inhalation?Every 4 hours Aripiprazole (ARIPiprazole 5 mg oral tablet)?5?Milligram?1?tablet?By Mouth?Daily at bedtime Ascorbic Acid (Vitamin C 500 mg oral tablet)?1?tab(s)?500?Milligram?By Mouth?Daily Atorvastatin (atorvastatin 20 mg oral tablet)?1?tab(s)?20?Milligram?By Mouth?Daily Baclofen (baclofen 10 mg oral tablet)?10?Milligram?1?tablet?By Mouth?3 times a day?as needed?Spasm Diclofenac Topical (diclofenac 1% topical gel)?2?gram?Topically?2 times a day Famotidine (famotidine 20 mg oral tablet)?40?Milligram?2?tablet?By Mouth?Daily Fluticasone (Flovent HFA 110 mcg/inh inhalation aerosol)?1?puff(s)?Inhalation?2 times aday Gabapentin (gabapentin 600 mg oral tablet)?1?tab(s)?600?Milligram?By Mouth?3 times a day HydrOXYzine (hydrOXYzine pamoate 50 mg oral capsule)?1?capsule?50?Milligram?By Mouth?2 times a day?as needed?as needed for anxiety Ibuprofen (ibuprofen 400 mg oral tablet)?400?Milligram?1?tablet?By Mouth?3 times a day?as needed?Pain , Mild Lidocaine Topical (Lidoderm 5% film)?1 patch?Topically?Daily?LEAVE ON FOR 12 HOURS, THEN OFF FOR 12 HOURS DIRECTED. Miscellaneous Rx (cholecalciferol (vitamin D3) 50 mcg (2,000 unit) capsule)?TAKE ONE CAPSULE EVERY DAY Triamcinolone Nasal (triamcinolone 55 mcg/inh nasal spray)?2?spray(s)?110?Microgram?Nares, Both?Daily Venlafaxine (venlafaxine 150 mg oral capsule, extended release)?150?Milligram?1?capsule?By Mouth?Daily ? Results Recent Labs No labs resulted between 02/02/2024 00:00 and 02/03/2024 18:18? Abnormal Labs No lab data available. ? * Rahul Baugh MD: PERFORM Event Display: Consultation Note Authored Date: Attending Attestation:??I have discussed the case and its management with the advanced practitionerand agree with the findings and plan as documented in the advanced practitioner???s note. ?? Rahul Baugh M.D Attending-Vascular Neurology Department of Neurosciences [employer] [id number] ? Please note - The above note was created using independenceIT software and dictation errors may have occurred; I apologize for any mistakes in the greenskeeper laborer. ??Thank you for your patience as we continue to work on perfecting the dictation process. ??Please feel free to contact us for any clarification purposes. Note * La Kimbrough MD: PERFORM, MODIFY Event Display: Discharge/Transfer Note Hospital Authored Date: Patient: ??DIDATO, RITO ? Age:??58 Years?Sex:??Female?:??1965?? Patient Information Discharge Location: A Primary Care Physician: Aliza Paul DO Admit Date/Time: 02/03/24 20:34 Discharge Disposition Discharge Disposition: [facility] Facility[facility]Rehab Discharge Diagnosis Hemorrhagic stroke (I61.9) HTN (hypertension) (I10) Hyperlipidemia (E78.5) Migraines (G43.909) Oropharyngeal dysphagia (R13.12) Impaired mobility and activities of daily living (Z74.09) Other specified health status (Z78.9) Hypotension (I95.9) Acute kidney injury (N17.9) Mood disorder (F39) Abnormal urinalysis (R82.90) Urinary retention (R33.9) _ Discharge Medications Acetaminophen (acetaminophen 650 mg oral tablet, extended release)?1?tab(s)?650?Milligram?By Mouth?2 times a day? NEEDED FOR PAIN OR FEVER Acetaminophen/Butalbital/Caffeine (Fioricet Tablet)?2?tab(s)?By Mouth?Every 4 hours Albuterol (Proventil HFA 90 mcg/inh inhalation aerosol with adapter)?2?puff(s)?Inhalation?Every 4 hours Aripiprazole (ARIPiprazole 5 mg oral tablet)?5?Milligram?1?tablet?By Mouth?Daily at bedtime Ascorbic Acid (Vitamin C 500 mg oral tablet)?1?tab(s)?500?Milligram?By Mouth?Daily Aspirin (Aspirin Enteric Coated 81 mg oral delayed release tablet)?TAKE ONE TABLET BY MOUTH EVERY DAY Atorvastatin (atorvastatin 20 mg oral tablet)?1?tab(s)?20?Milligram?By Mouth?Daily Baclofen (baclofen 10 mg oral tablet)?10?Milligram?1?tablet?By Mouth?3 times a day?as needed?Spasm Cetirizine (cetirizine 10 mg oral tablet)?TAKE ONE TABLET BY MOUTH EVERY DAY Diclofenac Topical (diclofenac 1% topical gel)?2?gram?Topically?2 times a day Famotidine (famotidine 20 mg oral tablet)?40?Milligram?2?tablet?By Mouth?Daily Fluticasone (Flovent HFA 110 mcg/inh inhalation aerosol)?1?puff(s)?Inhalation?2 times aday Gabapentin (gabapentin 600 mg oral tablet)?1?tab(s)?600?Milligram?By Mouth?3 times a day Hydrochlorothiazide (hydrochlorothiazide 25 mg oral tablet)?TAKE ONE TABLET BY MOUTH EVERY MORNING HydrOXYzine (hydrOXYzine pamoate 50 mg oral capsule)?1?capsule?50?Milligram?By Mouth?2 times a day?as needed?as needed for anxiety Ibuprofen (ibuprofen 400 mg oral tablet)?400?Milligram?1?tablet?By Mouth?3 times a day?as needed?Pain , Mild Lidocaine Topical (Lidoderm 5% film)?1 patch?Topically?Daily?LEAVE ON FOR 12 HOURS, THEN OFF FOR 12 HOURS DIRECTED. Lisinopril (lisinopril 40 mg oral tablet)?TAKE ONE TABLET EVERY MORNING Methenamine (methenamine hippurate 1 gm oral tablet)?TAKE ONE TABLET BY MOUTH EVERY DAY Miscellaneous Rx (cholecalciferol (vitamin D3) 50 mcg (2,000 unit) capsule)?TAKE ONE CAPSULE EVERY DAY Triamcinolone Nasal (triamcinolone 55 mcg/inh nasal spray)?2?spray(s)?110?Microgram?Nares, Both?Daily Venlafaxine (venlafaxine 150 mg oral capsule, extended release)?150?Milligram?1?capsule?By Mouth?Daily ? Quality Measures Stroke Quality Measures:?Discharged on Antithrombotic Therapy:??Hemorrhagic Stroke, contraindicated ?Statin Prescribed at Discharge:??Continued from home ?? Tobacco Use Treatment:?Cessation Medication Prescribed on Discharge:??Offered and Patient Refuses Cessation Medication ? Medications Started None Medications Discontinued Metoprolol tartrate 50mg daily Amlodipine 10mg daily Doses Changed None Allergies Allergies ?(Active and Proposed Allergies Only) NKA? (Severity: Unknown severity, Onset: Unknown) ? PCP Follow-Up/Heads-Up ??-??Home amlodipine was discontinued on discharge??from the hospital to??inpatient rehab,??blood pressures remained??controlled on??lisinopril alone and patient had a??episode of hypotension while inpatient.?? Able to be added back in the future if clinically indicated ??- Home metoprolol was also discontinued on discharge due to intermittent??bradycardic episodes; patient was asymptomatic during these episodes Hospital Course 58-year-old female with a past medical history of hypertension, hyperlipidemia, migraines, and anxiety who was brought to the ED 02/03 due to concern for stroke, with new symptoms of left-sided facialdroop and left-sided hemiparalysis. CT hyperacute stroke showed intraparenchymal hemorrhage in the right basal ganglia,??and she was admitted to the??NICU??for??management of??intraparenchymal hemorrhage??CTA head and neck shows no cutoff or high-grade stenosis of the major branches of the intracranial arteries or neck arteries. MRI confirms acute intraparenchymal hemorrhage in right thalamus andinternal capsule with surrounding edema, noted as a common location for hypertensive hemorrhage. Patient initially put on nicardipine drip in the [facility] for uncontrolled blood pressures greater than 180systolic, blood pressures improved and titrated off drip. She did have a small period of hypotension and bradycardia, stopped home amlodipine at that time. Blood pressures have been stable since and PT has evaluated and recommended inpatient rehab. She is medically stable for discharge to acute inpatient rehab. ?? Hemorrhagic stroke (I61.9): HTN (hypertension) (I10): Hyperlipidemia (E78.5): Migraines (G43.909):?? S/p nicardipine gtt 4/ hypotension to 70, resolved with IV fluid, DC amlodipine Recs: -DC amantadine per neuro -Cleared for??DVT prophylaxis??in future settings per neuro -Follow-up in stroke clinic,??being arranged by??[facility] neurology -No??antiplatelet agents or??systemic anticoagulation??per neuro -Continue??lisinopril 40 mg??for blood pressure control -Hold home??amlodipine 10mg??for now given??stable blood pressures on??only lisinopril, can resume if pressures start consistently rising again -Continue atorvastatin 20mg daily ? Bradycardia (R00.1): - resolved Per EKG, sinus laila, states that she has history of low HR in the past Asymptomatic Recs: -DC home metoprolol for now, can resume as ?? Acute kidney injury (N17.9):??resolved Likely secondary to relative hypo perfusion ?? Urinary retention (R33.9) Abnormal urinalysis (R82.90) ?? Per son, patient had been straight cath at home for 5-year, e is not sure about the reason Abnormal UA but urine culture grow diphtheroids, not Corynebacterium urealyticum. Discussed with antimicrobial, likely not UTI and ceftriaxone does not cover this organism Recs: -Covarrubias catheter for urinary retention -Has follow-up with urology outpatient ?? GERD (gastroesophageal reflux disease) (K21.9):??-famotidine 40 mg daily Mood disorder (F39):??-hydroxyzine 25mg q6 as needed, aripiprazole 5 mg daily ?? Objective Vital Signs?? Temperature: 97.4 DegF (02/10/24 07:33:00) Temperature Route: Temporal (02/10/24 07:33:00) Pulse Rate:??54 bpm??Low (02/10/24 07:33:00) Respiratory Rate: 18 br/min (02/10/24 11:38:00) Systolic Blood Pressure:??139 mm Hg??High (02/10/24 09:40:00) Diastolic Blood Pressure: 81 mm Hg (02/10/24 09:40:00) Blood pressure sites: Arm, right (02/10/24 07:33:00) Mean Arterial Pressure: 100 mm Hg (02/10/24 07:33:00) Pulse Pressure: 51 mm Hg (02/10/24 07:33:00) Oxygen Saturation: 98 % (02/10/24 07:33:00) Mode of Delivery (Oxygen): Room air (02/10/24 07:33:00) Early Warning Score: 2 (02/10/24 11:38:43) ? . Physical Exam Constitutional: Alert, in no distress. Mental Status: Oriented to person, place and time. Ear, Nose and Throat: Oropharynx clear, mucous membranes moist. Neck: Supple, Full range of motion. Respiratory: Clear to auscultation. No wheezing, rales or rhonchi. Cardiovascular: RRR, no murmur appreciated,??no LE edema Gastrointestinal: Abdomen soft, non-tender, non-distended. Neurologic: No focal neurological deficits. Moves all extremities spontaneously. Musculoskeletal: No cyanosis or clubbing. No gross deformities. Normal range of motion. Consultants Neurology - Dr. Hernandez Pending Results Add On Lab Order ordered on 02/07/2024 Blood Culture ordered on 02/06/2024 Blood Culture #2 ordered on 02/06/2024 Lactic Acid Level ordered on 02/06/2024 Patient Education Titles WebMD Ignite Patient Education - What Is Hemorrhagic Stroke??? Follow-Up Appointments Added Follow Up ?Time Frame ?Comments Beverly SMALL, Aliza Dubose?Within two weeks Patient Instructions You presented to the hospital with symptoms of a stroke, and you are found to have a brain bleed, or hemorrhagic stroke,??likely as a result of very high blood pressure. ??You were seen by neurology and blood pressures were??controlled by an IV medication at first and then??by your own home medications??after that. ??You did have some periods of??low blood pressures and low heart rate, and for that we will be stopping 2 of your home medications for the time being, please follow-up with your primary care doctor to determine if these need to be restarted.?? You were seen by physical therapy whorecommended inpatient rehab, and??you are medically ready to go there now and continue to get stronger??following??the stroke. ?? Medications to stop taking: Metoprolol??(stopped because your heart rates were low) Amlodipine??(stopped??because your blood pressure??was well-controlled on lisinopril, this can be restarted by your doctor if your blood pressures start getting high again) Home Health Face to Face ^HomeHealth[facility] Results Discharge Labs BACTERIOLOGY Urine Culture Results Final report ()?? 02/07/2024 04:11 ? BLOOD BANK Blood Type B Positive ()?? 02/03/2024 18:19 Antibody Screen Negative ()?? 02/03/2024 18:19 ?? BLOOD COUNT & DIFF WBC 7.9 k/mm3 ()?? 02/09/2024 06:22 RBC 4.64 m/mm3 ()?? 02/09/2024 06:22 Hgb 13.4 Gm/dL ()?? 02/09/2024 06:22 Hct 41.2 % ()?? 02/09/2024 06:22 MCV 88.8 femtoliters ()?? 02/09/2024 06:22 MCH 28.9 pg ()?? 02/09/2024 06:22 MCHC 32.5 g/dL (Low)?? 02/09/2024 06:22 Platelet Count 196 k/mm3 ()?? 02/09/2024 06:22 RDW-SD 44.5 femtoliters ()?? 02/09/2024 06:22 MPV 10.9 femtoliters ()?? 02/09/2024 06:22 Nucleated RBC (Automated) 0.0 #/100 WBC'S ()?? 02/09/2024 06:22 Abs. NRBC 0.0 k/mm3 ()?? 02/09/2024 06:22 Abs. Neut 3.7 k/mm3 ()?? 02/03/2024 18:49 Abs. Lymph 2.3 k/mm3 ()?? 02/03/2024 18:49 Abs. Alcorn 0.5 k/mm3 ()?? 02/03/2024 18:49 Abs. Eo 0.3 k/mm3 ()?? 02/03/2024 18:49 Abs. Baso 0.1 k/mm3 ()?? 02/03/2024 18:49 Neut % 54.0 % ()?? 02/03/2024 18:49 Lymph % 34.1 % ()?? 02/03/2024 18:49 Alcorn % 6.6 % ()?? 02/03/2024 18:49 Eos % 4.3 % ()?? 02/03/2024 18:49 Baso % 0.9 % ()?? 02/03/2024 18:49 Imm Gran 0.1 % ()?? 02/03/2024 18:49 Abs. Imm Gran 0.0 k/mm3 ()?? 02/03/2024 18:49 ?? CARDIAC High Sensitivity Troponin (HSTnT) 13 ng/L ()?? 02/03/2024 20:05 ? CHEM GENERAL Sodium 144 mmol/L ()?? 02/09/2024 06:22 Potassium 4.4 mmol/L ()?? 02/09/2024 06:22 Chloride 110 mmol/L (High)?? 02/09/2024 06:22 Bicarbonate Level 23 mmol/L ()?? 02/09/2024 06:22 Anion Gap 11 ()?? 02/09/2024 06:22 Glucose Level 89 mg/dL ()?? 02/09/2024 06:22 Glucose, POC 142 mg/dL (High)?? 02/06/2024 17:08 BUN 16 mg/dL ()?? 02/09/2024 06:22 Creatinine-Blood 0.9 mg/dL ()?? 02/09/2024 06:22 Estimated GFR Creatinine 79 ML/MIN/1.73 M2 ()?? 02/09/2024 06:22 Calcium 10.1 mg/dL ()?? 02/03/2024 18:49 AST (SGOT) 17 units/L ()?? 02/03/2024 18:49 ?? COAG INR 1.0 ()?? 02/03/2024 18:49 Protime (PT) 10.9 seconds ()?? 02/03/2024 18:49 APTT 28.0 seconds ()?? 02/03/2024 18:49 ? UA/URINALYSIS Appear/Color, Urine LIGHT YELLOW ()?? 02/07/2024 04:11 Specific [place], Urine 1.009 ()?? 02/07/2024 04:11 pH, Urine 6.5 ()?? 02/07/2024 04:11 Albumin, Urine NEGATIVE ()?? 02/07/2024 04:11 Glucose, Urine NEGATIVE ()?? 02/07/2024 04:11 Ketones, Urine NEGATIVE ()?? 02/07/2024 04:11 Bilirubin, Urine NEGATIVE ()?? 02/07/2024 04:11 Hemoglobin, Urine 3+ (Abnormal)?? 02/07/2024 04:11 Nitrite, Urine NEGATIVE ()?? 02/07/2024 04:11 Leukocyte, Urine 3+ (Abnormal)?? 02/07/2024 04:11 Urobilinogen NORMAL mg/dL ()?? 02/07/2024 04:11 WBC's, Urine 94 /HPF (High)?? 02/07/2024 04:11 RBC's, Urine 31 /HPF (High)?? 02/07/2024 04:11 Bacteria MODERATE HPF (Abnormal)?? 02/07/2024 04:11 Squamous Epith <1 /HPF ()?? 02/07/2024 04:11 Mucus SLIGHT /LPF ()?? 02/07/2024 04:11 Hold Urine Culture Testing available 48 hours from time of collection. ()?? 02/07/2024 04:11 ? URINE OTHER Est Creatinine Clearance 56.34 mL/min ()?? 02/09/2024 07:39 Urine Culture Specimen Source URINE ()?? 02/07/2024 04:11 Urine Culture Isolate 1 Comment ()?? 02/07/2024 04:11 ? Imaging(s) ?CT Head/Brain W/O Contrast ?? 02/04/2024 00:29??by Chris Ferro MD ?IMPRESSION: ?? Increased size of 2 x 2 x 2.2 cm hematoma centered at the right thalamus. It previously measured 1.5 x 1.3 x 2 cm. ?MRI Brain W+W/O Contrast ?? 02/04/2024 02:55??by Kris VIERA, Mona Matthew ?IMPRESSION: ?? Acute intraparenchymal hemorrhage centered in the right thalamus and internal capsule with surrounding edema and local mass effect including partial effacement of the third ventricle. No evidence of hydrocephalus. No underlying enhancing mass. This is a common location for hypertensive hemorrhage. ?? Additional scattered punctate chronic microhemorrhages as above. 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 ?? Mild scattered nonspecific white matter signal changes which most likely reflect chronic small vessel disease. ?CT Head-Hyper Acute Stroke ?? 02/03/2024 18:32??by Julissa VIERA, Qian Munoz ?IMPRESSION: ?? Intraparenchymal hemorrhage in the right basal ganglia. ?CT Angio Head Hyperacute Stroke ?? 02/03/2024 18:32??by Sammie VIERA, Daniel ?IMPRESSION: This study is limited due to suboptimal contrast opacification. ?? CT of head showed a 2 x 1.5 cm acute hematoma in the right thalamus. No prominent arterial supply or venous drainage is noted to and from this lesion. ?? No cutoff or high-grade stenosis of the major branches of the intracranial arteries. No aneurysm, stenosis, or vascular malformations present. ?? The right proximal internal carotid artery show no significant stenosis by NASCET criteria. ?? The left proximal internal carotid artery show no significant stenosis by NASCET criteria. ?? The right cervical vertebral artery shows no significant stenosis. ?? The left cervical vertebral artery shows no significant stenosis. ? _ minutes spent on discharge * Petra Eldridge RN: PERFORM, SIGN, VERIFY Event Display: Case Management Discharge Plan Authored Date: [id number] Patient: RTIO VERDE Age: 58 years Sex: Female : 1965 Associated Diagnoses: None Author: Chente BAI, Petra Discharge Plan Case Management Discharge Plan : Case Management Discharge Plan Data 02/10/2024 14:28 EDT Discharge Level of Care at Discharge Short-term Acute Inpatient Discharge Nursing Homes/Rehab Facilities [facility] Discharge Transportation Arranged [facility] [address] [place] [phone] Discharge Arranged Transport Date/Time 02/10/2024 16:00 Mode of Transportation Arranged Ambulance Name of Agency #1 [facility] Service Categories #1 Occupational Therapy, Physical Therapy, Fpc * Yana BAI, Viji: PERFORM Event Display: Patient Education/Instruction Authored Date: [id number] Inpatient Adult Discharge Instructions. [address] [address] Name: RITO VERDE : 1965?? Visit: 02/03/2024 20:34?? Current Date: 02/10/2024 16:12 ?? Account: [id number]?? Inpatient Adult Discharge Instructions We would like to thank you for allowing us to assist you with your healthcare needs. The following includes patient education materials and information regarding your injury/illness. Our entire staffstrives to provide an excellent experience for our patients and their families. PLEASE ENSURE YOU FOLLOW-UP PER THE INSTRUCTIONS BELOW! ?? YOUR OPINION IS IMPORTANT TO US! Please complete the survey you may receive by mail or email. Your feedback will be used to make improvements to the healthcare experiences of our patients and their families. Surveys are administered by [employer] ?? If further treatment with your primary care physician or another doctor is recommended, it is important for you to keep the appointment. Call your primary care physician or return to the Emergency Department immediately if your condition worsens, fails to improve, or new symptoms develop. If you need to find a doctor, you can call [facility] [employer] [facility] for a referral at [phone] or toll free at [phone] or log in to [email or web address].. ?? [facility], in keeping with [facility] guidance, no longer requires face masks for staff, patientsor visitors in most situations. Similiar to time spent indoors at other locations, there is the chance that you were exposed to repiratory viruses during your time with us (such as flu or COVID-19). If you develop symptoms concerning for a viral respiratory infection, please seek testing (and treatment if indicated) from your medical provider or home test kit. ?? You can view and manage your care through the patient portal or by using a health care rigoberto of your choosing. [employer] is a website that allows you to securely view your medical information including your hospital discharge summary, office visit summaries, medications and follow-up visits. You can also request appointments, renew medications, and request access to your medical information using a health care rigoberto of your choosing, or just ask a question. You can enroll at [email or web address] or register during your next office visit. You have been discharged from [facility], Patient Care Unit: D5A??. If you have any questions regarding these instructions, including results of studies pending, afteryou leave, please call us and we will be happy to assist you 31/05. [facility] Your Care Team Attending Physician Patti Abernathy MD?? Consulting Providers Patti Abernathy MD?? Discharging Providers Luis E VIERA, La Andersen Reason for Your Visit Stroke alert?? Your Diagnosis Hemorrhagic stroke HTN (hypertension) Hyperlipidemia Migraines Oropharyngeal dysphagia Impaired mobility and activities of daily living Other specified health status Abnormal urinalysis Acute kidney injury Hypotension Mood disorder Urinary retention Tests Performed Below is a partial list of the tests performed during your hospitalization. You may have had other tests and procedures not included in this list. Please discuss all test results with your provider. AST Basic Metabolic Panel BUN CBC CBC w/ Differential Creatinine Electrolytes Glucose Level GLUCOSE POC High??Sensitivity??Troponin T PT (INR) PTT Troponin T, High Sensitivity Type and Screen Urinalysis w/hold for Urine Culture Urine Culture Result Urine Culture, Routine CT Angio Head Hyperacute Stroke CT Angio Neck Hyperacute Stroke CT Head-Hyper Acute Stroke CT Head/Brain W/O Contrast MRI Brain W+W/O Contrast XR Chest Portable XR Shoulder Min 2 Views Left Add On Lab Order?? Blood Culture?? Blood Culture #2?? Lactic Acid Level (Lactate Level)?? Primary Care Provider Aliza Paul DO? Advance Directive Health Care Proxy on File Yes - Health Care Proxy Discharge Vitals Temperature: 97.9 DegF Height: 160 cm Pulse Rate: 63 bpm Weight: 83.9 kg Respiratory Rate:??15 br/min??Low Body Mass Index:??31.64 kg/m2??Critical Systolic Blood Pressure: 117 mm Hg Body surface area: 1.9 Diastolic Blood Pressure:??100 mm Hg??High ?? Oxygen Saturation: 98 % ?? Studies Pending All studies ordered during this hospital stay have been completed unless listed below. Please discuss all pending results with your provider listed above in these instructions. ?? Add On Lab Order?? Blood Culture?? Blood Culture #2?? Lactic Acid Level (Lactate Level)?? What to do next Instructions From Your Doctor You presented to the hospital with symptoms of a stroke, and you are found to have a brain bleed, or hemorrhagic stroke,??likely as a result of very high blood pressure. ??You were seen by neurology and blood pressures were??controlled by an IV medication at first and then??by your own home medications??after that. ??You did have some periods of??low blood pressures and low heart rate, and for that we will be stopping 2 of your home medications for the time being, please follow-up with your primary care doctor to determine if these need to be restarted.?? You were seen by physical therapy [facility], and??you are medically ready to go there now and continue to get stronger??following??the stroke. ?? Medications to stop taking: Metoprolol??(stopped because your heart rates were low) Amlodipine??(stopped??because your blood pressure??was well-controlled on lisinopril, this can be restarted by your doctor if your blood pressures start getting high again) ?? Orders? 02/10/24 15:51:00 EDT?? You Need to Schedule the Following Appointments Follow Up with??Aliza Paul DO When:??Within Within two weeks Where: [address], [place] [id number]- Discharge Medications RITO VERDE :1965 Visit Date:02/03/2024 Medications: Please continue your medications until treatment is completed or stopped by your provider. Medications not listed below should be discontinued. Discuss any questions related to medications with your provider. What How Much When Instructions Next Dose Changed HydrOXYzine (hydrOXYzine pamoate 50 mg oral capsule) 1 capsule Oral Twice a day as needed for as needed for anxiety As needed, last dose 02/09/24 at 9am Unchanged Acetaminophen (acetaminophen 650 mg oral tablet, extended release) 1 tab(s) Oral Twice a day NEEDED FOR PAIN OR FEVER ?? As directed, last dose 02/10/24 at 12pm Unchanged Acetaminophen/ Butalbital/ Caffeine (Fioricet Tablet) 2 tab(s) Oral Every 4 hours As directed, not given Unchanged Albuterol (Proventil HFA 90 mcg/ inh inhalation aerosol with adapter) 2 puff(s) Inhalation Every 4 hours As directed, not given Unchanged Aripiprazole (ARIPiprazole 5 mg oral tablet) 1 tab(s) Oral Daily at Bedtime Today 02/10/24 at 9pm Unchanged Ascorbic Acid (Vitamin C 500 mg oral tablet) 1 tab(s) Oral Daily Tomorrow 02/11/24 at 9am Unchanged Aspirin (Aspirin Enteric Coated 81 mg oral delayed release tablet) TAKE ONE TABLET BY MOUTH EVERY DAY ?? Tomorrow 02/11/24 at 9am Unchanged Atorvastatin (atorvastatin 20 mg oral tablet) 1 tab(s) Oral Daily Tomorrow 02/11/24 at 9am Unchanged Baclofen (baclofen 10 mg oral tablet) 1 tab(s) Oral 3 times a day as needed for Spasm As needed, not given Unchanged Cetirizine (cetirizine 10 mg oral tablet) TAKE ONE TABLET BY MOUTH EVERY DAY ?? Tomorrow 02/11/24 at 9am Unchanged Cholecalciferol (Vitamin D3 2000 intl units oral capsule) Tomorrow 02/11/24 at 9am Unchanged Diclofenac Topical (diclofenac 1% topical gel) 2 gram Topically Twice a day Today 02/10/24 at 9pm Unchanged Famotidine (famotidine 20 mg oral tablet) 2 tab(s) Oral Daily Tomorrow 02/11/24 at 9am Unchanged Fluticasone (Flovent HFA 110 mcg/ inh inhalation aerosol) 1 puff(s) Inhalation Twice a day Today 02/10/24 at 9pm Unchanged Gabapentin (gabapentin 600 mg oral tablet) 1 tab(s) Oral 3 times a day Today 02/10/24 at 9pm Unchanged Hydrochlorothiazide (hydrochlorothiazide 25 mg oral tablet) TAKE ONE TABLET BY MOUTH EVERY MORNING ?? Tomorrow 02/11/24 at 9am Unchanged Ibuprofen (ibuprofen 400 mg oral tablet) 1 tab(s) Oral 3 times a day as needed for Pain , Mild As directed, not given Unchanged Lidocaine Topical (Lidoderm 5% film) 1 patch Topically Daily LEAVE ON FOR 12 HOURS, THEN OFF FOR 12 HOURS DIRECTED. ?? Tomorrow 02/11/24 at 9am Unchanged Lisinopril (lisinopril 40 mg oral tablet) TAKE ONE TABLET EVERY MORNING ?? Tomorrow 02/11/24 at 9am Unchanged Methenamine (methenamine hippurate 1 gm oral tablet) TAKE ONE TABLET BY MOUTH EVERY DAY ?? Tomorrow 02/11/24 at 9am Unchanged Miscellaneous Rx (cholecalciferol (vitamin D3) 50 mcg (2,000 unit) capsule) TAKE ONE CAPSULE EVERY DAY ?? Tomorrow 02/11/24 at 9am Unchanged Triamcinolone Nasal (triamcinolone 55 mcg/ inh nasal spray) 2 spray(s) Nares, Both Daily Tomorrow 02/11/24 at 9am Unchanged Venlafaxine (venlafaxine 150 mg oral capsule, extended release) 1 capsule Oral Daily Tomorrow 02/11/24 at 9am ?? What When Comments Stop Taking Amlodipine (amLODIPine 10 mg oral tablet) TAKE ONE TABLET EVERY DAY ?? Stop Taking Metoprolol (Metoprolol Tartrate 50 mg oral tablet) TAKE ONE TABLET BY MOUTH TWICE DAILY ?? Prescription Given During Visit No new medications prescribed at time of discharge.?? Laboratory Results Below is a partial list of the most recent Laboratory test results done prior to this discharge. You may have had other tests and procedures not included in this list. Please discuss all test resultswith your provider. Est Creatinine Clearance - 56.34 mL/min (02/09/2024) AST (02/03/2024) ???AST (SGOT) - 17 units/L Basic Metabolic Panel (02/03/2024) ???Sodium - 140 mmol/L???Potassium - 4.1 mmol/L???Chloride - 103 mmol/L???Bicarbonate Level - 26 mmol/L???Anion Gap - 11???Glucose Level - 91 mg/dL???BUN - 19 mg/dL???Creatinine-Blood - 0.9 mg/dL???Estimated GFR Creatinine - 74 ML/MIN/1.73 M2???Calcium - 10.1 mg/dL BUN (02/09/2024) ???BUN - 16 mg/dL CBC (02/09/2024) ???WBC - 7.9 k/mm3???RBC - 4.64 m/mm3???Hgb - 13.4 Gm/dL???Hct - 41.2 %???MCV - 88.8 femtoliters???MCH - 28.9 pg???MCHC - 32.5 g/dL???Platelet Count - 196 k/mm3???RDW-SD - 44.5 femtoliters???MPV - 10.9 femtoliters???Nucleated RBC (Automated) - 0.0 #/100 WBC'S???Abs. NRBC - 0.0 k/mm3 CBC w/ Differential (02/03/2024) ???WBC - 6.8 k/mm3???RBC - 4.91 m/mm3???Hgb - 13.9 Gm/dL???Hct - 42.6 %???MCV - 86.8 femtoliters???MCH - 28.3 pg???MCHC - 32.6 g/dL???Platelet Count - 239 k/mm3???RDW-SD - 41.1 femtoliters???MPV - 10.2 femtoliters???Nucleated RBC (Automated) - 0.0 #/100 WBC'S???Abs. NRBC - 0.0 k/mm3???Abs. Neut - 3.7 k/mm3???Abs. Lymph - 2.3 k/mm3???Abs. Alcorn - 0.5 k/mm3???Abs. Eo - 0.3 k/mm3???Abs. Baso - 0.1 k/mm3???Neut % - 54.0 %???Lymph % - 34.1 %???Alcorn % - 6.6 %???Eos % - 4.3 %???Baso % - 0.9 %???Imm Gran - 0.1 %???Abs. Imm Gran - 0.0 k/mm3 Creatinine (02/09/2024) ???Creatinine-Blood - 0.9 mg/dL???Estimated GFR Creatinine - 79 ML/MIN/1.73 M2 Electrolytes (02/09/2024) ???Sodium - 144 mmol/L???Potassium - 4.4 mmol/L???Chloride - 110 mmol/L???Bicarbonate Level - 23 mmol/L???Anion Gap - 11 Glucose Level (02/09/2024) ???Glucose Level - 89 mg/dL GLUCOSE POC (02/06/2024) ???Glucose, POC - 142 mg/dL High??Sensitivity??Troponin T (02/03/2024) ???High Sensitivity Troponin (HSTnT) - 16 ng/L PT (INR) (02/03/2024) ???INR - 1.0???Protime (PT) - 10.9 seconds PTT (02/03/2024) ???APTT - 28.0 seconds Troponin T, High Sensitivity (02/03/2024) ???High Sensitivity Troponin (HSTnT) - 13 ng/L Type and Screen (02/03/2024) ???Blood Type - B Positive???Antibody Screen - Negative Urinalysis w/hold for Urine Culture (02/07/2024) ???Appear/Color, Urine - LIGHT YELLOW???Specific [place], Urine - 1.009???pH, Urine - 6.5???Albumin, Urine - NEGATIVE???Glucose, Urine - NEGATIVE???Ketones, Urine - NEGATIVE???Bilirubin, Urine - NEGATIVE???Hemoglobin, Urine - 3+???Nitrite, Urine - NEGATIVE???Leukocyte, Urine - 3+???Urobilinogen - NORMAL? ?WBC's, Urine - 94 /HPF? ?RBC's, Urine - 31 /HPF? ?Bacteria - MODERATE? ?Squamous Epith - <1 /HPF???Mucus - SLIGHT???Hold Urine Culture - Testing available 48 hours from time of collection. Urine Culture Result (02/07/2024) ???Urine Culture Isolate 1 - Comment Urine Culture, Routine (02/07/2024) ???Urine Culture Results - Final report???Urine Culture Specimen Source - URINE Allergies (NKA means No Known Allergies) NKA Problems Active Problems??(9) Anxiety?? Cerebrovascular disease?? Gastroesophageal reflux disease?? Heart disease?? Hyperlipidemia?? Hypertensive disorder?? left ventricular hypertrophy?? Migraines?? Obese class I?? Education Materials Below is the list of Educational Leaflet Providered with your Discharge Instructions. [employer] Patient Education - Symptoms of a Stroke?? [employer] Patient Education - The F.A.S.T. Way to Diagnose a Stroke?? [employer] Patient Education - Discharge Instructions for Stroke?? [employer] Patient Education - What Is Hemorrhagic Stroke??? Valuables and Belongings I fully understand and agree that [facility] accepts no responsibility for all my personal property including clothing, toilet articles, radios, jewelry, dentures, hearing aids, rings, money, or any other property that is in my possession or is brought to me after admission. I understand certain valuables may be placed in a hospital safe for a short period of time. I understand that the hospital is not liable for loss or damage due to accident, fire, or other natural occurrence while said property is in the safe. I accept full responsibility for any personal property that I keep with me, and will not hold the hospital responsible in case of loss or disappearance. I acknowledge that i have been encouraged to send valuables and belongings home. ?? Review of Valuable and Belonging List: With patient Date for Pt to Sign Valuables/Belongings: 02/03/24 23:31:00 ?? Other Discharge Information ? Case Management Discharge Plan?? Discharge Plan?? Discharge Agency Information?? Discharge Level of Care at Discharge: Short-term Acute Inpatient Name of Agency #1: [facility] Discharge Transportation Arranged: [facility] [address] [facility] [address] [phone] Service Categories #1: Occupational Therapy, Physical Therapy, Fpc Mode of Transportation Arranged: Ambulance ?? Discharge Arranged Transport Date/Time: 02/10/24 16:00:00 ?? Discharge Nursing Homes/Rehab Facilities: [facility] ? Pulmonary Rehab Status?? Pulmonary Rehab Discharge Status?? Respiratory Rate:??15 br/min??Low ? Common Emergency Awareness Tips IS IT A STROKE? Act FAST and Check for these signs: FACE Does the face look uneven? ARM Does one arm drift down? SPEECH Does their speech sound strange? TIME Call at any sign of stroke ?? Heart Attack Signs Chest discomfort: Most heart attacks involve discomfort in the center of the chest and lasts more than a few minutes, or goes away and comes back. It can feel like uncomfortable pressure, squeezing, fullness or pain. Discomfort in upper body: Symptoms can include pain or discomfort in one or both arms, back, neck, jaw or stomach. Shortness of breath: With or without discomfort. Other signs: Breaking out in a cold sweat, nausea, or lightheaded. Remember, MINUTES DO MATTER. If you experience any of these heart attack warning signs, call to get immediate medical attention! ?? Smoking can increase your chances of developing chronic health problems and can cause harmful effects to other family members in your house. If you smoke, you are strongly encouraged to quit. Please call [facility] [employer] Link at [phone] or [phone] or log in to [email or web address] for referrals to smoking cessation programs. ?? 983 Suicide & Crisis Lifeline is available 31/05 if you or someone you know needs to find a reason to keep living. By calling 828 you'll be connected to a skilled, trained counselor at a crisis center in your area. INPATIENT DISCHARGE INSTRUCTIONS SIGNATURE PAGE RITO VERDE Location:[facility] Registration Date and Time:02/03/2024 20:34 EDT Primary Care Physician: Aliza Paul DO, Attending Physician: Patti Abernathy MD, I RITO VERDE, have received the above patient education materials/instructions and have verbalized understanding. If ambulance or transport services are being used I further acknowledge being givena choice of service. ?? If you need to contact me, please call me at this number: . Patient/Ip Network Architect Name: Patient/Ip Network Architect Signature: Relationship to Patient: Witness Name/Signature: Date: * Viji Millan RN: PERFORM Event Display: Patient Education Leaflets Authored Date: [id number] Symptoms of a Stroke ?? [address]852 Symptoms of a Stroke During a stroke, blood stops flowing to part of the brain. This can damage areas in the brain that control the rest of the body. A stroke can happen to anyone at any age. Call 911 and get help right away if any of these symptoms come on suddenly, even if the symptoms don???t last. Know the symptoms of a stroke A sudden feeling of weakness on one side of your body may be a sign that you are having a stroke. ??? Weakness. You may feel a sudden weakness, tingling, or a loss of feeling on one side of your face or body including your arm or leg.? Vision problems. You may have sudden double vision or trouble seeing in one or both eyes. ??? Speech problems. You may have sudden trouble talking, slurred speech, or problems understanding others. ??? Headache. You may have a sudden, severe headache. ??? Movement problems. You may have sudden trouble walking, dizziness, a feeling of spinning, a loss of balance, a feeling of falling, or blackouts. ??? Seizure. You may also have a seizure as the first symptom of a stroke.? When to call 911 Remember: If you have any of these symptoms, or if someone you are with has these symptoms, call 911 as soon [address] Never drive yourself or the victim. The ambulance can alert the hospital and start treatment. B.E. F.A.S.T. is an easy way to remember the signs of a stroke. When you see these signs, you will know that you need to call 911 fast.?? B.E. F.A.S.T. stands for: ??? B is for balance. Sudden loss of balance or coordination. ??? E is for eyes. Vision changes in one or both eyes. ??? F is for face drooping. One side of the face is drooping or numb. When the person smiles, the smile is uneven. ??? A is for arm weakness. One arm is weak or numb. When the person lifts both arms at the same time, one arm may drift downward. ??? S is for speech difficulty. You may notice slurred speech or difficulty speaking. The person can't repeat asimple sentence correctly when asked. ??? T is for time to dial 911. If someone shows any of these symptoms, even if they go away, call 911 right away. Make note of the time the symptoms first appeared. ?? Last Reviewed Date: 2022 ?? [id number] [employer]. All rights reserved. This information is not intended as a substitute for professional medical care. Always follow your healthcare professional's instructions. ?? * Viji Millan RN: PERFORM Event Display: Patient Education Leaflets Authored Date: The F.A.S.T. Way to Diagnose a Stroke ?? The F.A.S.T. Way to Diagnose a Stroke - Video One person dies of stroke every four minutes in the [place]. Will you be prepared to take action in an emergency? Dr. Soto Dave teaches you the F.A.S.T. way to diagnose a stroke. To view the video go to this web address: [email or web address] Or, scan this QR code with your smart phone ?? [employer]. All rights reserved. This information is not intended as a substitute for professional medical care. Always follow your healthcare professional's instructions. ?? * Viji Millan RN: PERFORM Event Display: Patient Education Leaflets Authored Date: Discharge Instructions for Stroke ?? [id number] Discharge Instructions for Stroke You have a high risk for a stroke, or??a TIA (transient ischemic attack).??During a stroke, blood stops flowing to part of your brain. This can damage areas in the brain that control other parts of the body. Symptoms from a stroke depend on which part of the brain has been affected. Stroke risk factors Once you???ve had a stroke, you???re at greater risk for another one. Listed below are some other factors that can raise your risk for a stroke: ??? High blood pressure ??? High cholesterol ??? Cigarette or cigar smoking ??? Diabetes ??? Carotid or other artery disease ??? Atrial fibrillation, atrial flutter,??or other heart disease ??? Not being physically active ??? Obesity ??? Certain blood disorders, such as sickle cell anemia ??? Drinking too much alcohol ??? Abusing street drugs ??? Race ??? Gender ??? Family history of stroke ??? Diet high in salty, fried, or greasy foods ?? Changes in daily living Doing??some everyday tasks may be hard after you???ve had a stroke. But you can learn new ways to manage. In fact, doing daily activities may help you to regain muscle strength. This can help your affected arm or leg work more normally. Be patient. Give yourself time to adjust. And appreciate the progress you make. ?? Daily activities You may be at risk of falling. Make changes to your home to help you walk more easily. A therapist will decide if you need an assistive device, such as a cane or walker, to walk safely. You may need to see an occupational therapist (OT). Or you may see a physical therapist (PT). Thesehealthcare providers can help you to learn new ways of doing things. For example, you may need to make changes in how you bathe or dress. You may also need a speech therapist. This is someone who helps you speak normally again and be able to swallow. Tips for showering or bathing ??? Test the water temperature with a hand or foot that was not affected by the stroke. ??? Use grab bars, a shower seat, a handheld showerhead, and a long- handled brush. ??? Use any other device as advised by your therapists. Tips for getting dressed ??? Dress while sitting, starting with the affected side or limb. ??? Wearshirts that pull easily over your head. Wear pants or skirts with elastic waistbands. ??? Use zippers with loops attached to the pull tabs. ?? Lifestyle changes ??? Take your medicines exactly as directed. Don???t skip doses. ??? Begin an exercise program. Askyour provider how to get started. Ask how much activity you should try to get every day or week. You can benefit from simple activities such as walking or gardening. ??? Limit how much alcohol you drink. ??? Control your cholesterol level. Follow your provider???s advice about how to do this. ??? If you are a smoker, quit now. Join a stop-smoking program to improve your chances of success. Ask your provider about medicines or other methods to help you quit. ??? Learn stress management methods. These can help you deal with stress in your home and work life. Diet Your healthcare provider will guide you on changes you may need to make to your diet. They may advise that you see a registered dietitian for help with changes. The changes can improve your cholesterol, blood pressure, and blood sugar. Changes may include: ??? Reducing the amount of fat and cholesterol you eat ??? Reducing the amount of salt (sodium) in your diet, especially if you have high blood pressure ??? Eating more vegetables and fruits ??? Eating more lean proteins, such as fish, poultry, and beans and peas (legumes) ??? Eating less red meat and processed meats ??? Using low-fat dairyproducts ??? Limiting vegetable oils and nut oils ??? Limiting sweets and processed foods such as ch ips, cookies, and baked goods ??? Not eating trans fats. These are often found in processed foods. Don't eat any food that has hydrogenated oils listed in its ingredients. ?? Follow-up care ??? Keep your medical appointments. Close follow-up is important to stroke rehabilitation and recovery. ??? Some medicines require blood tests to check for progress or problems. Keep follow-up appointments for any blood tests ordered by your providers. ?? Call 911 Call 911 right away??if you have any of the following symptoms of stroke: ??? Weakness, tingling, or loss of feeling on one side of your face or body ??? Sudden double vision or trouble seeing in one or both eyes ??? Sudden trouble talking or slurred speech ??? Trouble understanding others ??? Sudden, severe headache ??? Dizziness, loss of balance, or a sense of falling ??? Blackouts or seizures B.E. F.A.S.T. is an easy way to remember the signs of stroke. When you see these signs, you know that you need to call 911 fast. B.E. F.A.S.T. stands for: ??? B is for balance. Sudden loss of balance or coordination. ??? E is for eyes. Vision changes in one or both eyes. ??? F is for face drooping. One side of the face is drooping or numb. When the person smiles, the smile is uneven. ??? A is for arm weakness. One arm is weak or numb. When the personlifts both arms at the same time, one arm may drift downward. ??? S is for speech difficulty. You may notice slurred speech or trouble speaking. The person can't repeat a simple sentence correctly when asked. ??? T is for time to call 911. If someone shows any of these symptoms, even if they go away, call 911 right away. Make note of the time the symptoms first appeared. ?? Last Reviewed Date: 2022 ?? 4770-0474 [employer]. All rights reserved. This information is not intended as a substitute for professional medical care. Always follow your healthcare professional's instructions. ?? Patient Care team information Care Team Personnel Name: Yohana Coffey RN Position: S RN Member Role: Primary Care Nurse Name: Erasmo Landry RN Position: S RN Member Role: Primary Care Nurse Name: Patricia Beltran RN Position: S RN Member Role: Primary Care Nurse Name: Oscar Velasquez RN Position: [facility] RN Supv Member Role: Primary Care Nurse Name: Aliza Paul DO Position: [facility] Outreach Member Role: PCP Address: Address: [address] [place] [id number] Name: Kyleigh Blount RN Position: S RN Member Role: Primary Care Nurse Name: Parvin Walton RN Position: S RN Member Role: Primary Care Nurse Name: Yesika Paris RN Position: S RN Member Role: Primary Care Nurse Name: Jessica Booth Position: S RN Member Role: Primary Care Nurse Care Team Related Persons Name: RAN VERDE Address: home [place], [place] Name: RAN GARRIDO Address: home [place], [place] Name: LB PELAYO Address: home [address] [place] [address]
--- OUTSIDE RECORDS SUMMARY | 2024-06-11 16:32 | XMS_ITS | Continuity of Care Document ---
Author Organization [facility] Address [address] [place] [id number]- Care Team Providers Care Senior Staff Consultant Name Role Phone Joe VIERA, Xin A Primary Care Physician [place] [facility] [place](s): 03/31/24 - 04/04/[address] [id number] Discharge Disposition: A-D/C Home Attending Physician: Haritha Llamas DO Admitting Physician: Haritha Llamas DO Referring Physician: Not on Staff, Referring MD Allergies, Adverse Reactions, Alerts No Known Allergies Immunizations Given and Recorded Vaccine Date Status Refusal Reason SARS-CoV-2 mRNA ([id number]) vax 10/17/22 Given Rabies vaccine,purified chick embryo 09/06/22 Rodolfo rded tetanus/diphtheria/pertussis, acel(Tdap) 09/06/22 Recorded tetanus/diphtheria/pertussis, acel(Tdap) 12/16/21 Recorded pneumococcal 23-valent vaccine 12/16/21 Recorded influenza virus vaccine, inactivated 09/23/17 Rodolfo rded influenza virus vaccine, inactivated 08/16/14 Rodolfo rded Medications acetaminophen 325 mg oral tablet 975 mg, By Mouth, 3 times a day, Refills 0, Maintenance, 03/23/24 11:09:00 EDT, Partial fill upon patient request if the prescription is for a schedule II opioid drug. Start Date: 03/23/24 Status: Ordered ARIPiprazole 10 mg oral tablet [...] baclofen 10 mg oral tablet 10 mg, By Mouth, 3 times a day, PRN, # 21 tablet, Refills 0, Tot. Refills 0, Maintenance, Spasm, 04/04/24 12:46:00 EDT, Print Requisition, Partial fill upon patient request if the prescription is fora schedule II opioid drug. Start Date: 04/04/24 Stop Date: 04/11/24 Status: Ordered baclofen 10 mg oral tablet 10 mg, By Mouth, 3 times a day, PRN, Refills 0, Maintenance, Spasm, 03/23/24 9:00:00 EDT, Partial fill upon patient request if the prescription is for a schedule II opioid drug. Start Date: 03/23/24 Status: Ordered cetirizine 10 mg oral tablet TAKE ONE TABLET BY MOUTH EVERY DAY Start Date: 02/04/24 Status: Ordered famotidine 20 mg oral tablet 40 mg, 2, tablet, By Mouth, Daily, Refills 0, Maintenance, 10/20/22 14:06:00 EST, Partial fill uponpatient request if the prescription is for a schedule II opioid drug. Start Date: 10/20/22 Status: Ordered gabapentin 600 mg oral tablet 1 tablet = 600 mg, By Mouth, 3 times a day Start Date: 10/16/22 Status: Ordered hydrOXYzine pamoate 50 mg oral capsule 1 capsule = 50 mg, By Mouth, 2 times a day, PRN as needed for anxiety Start Date: 10/16/22 Status: Ordered Lidoderm 5% film 1 patch, Topically, Daily, LEAVE ON FOR 12 HOURS, THEN OFF FOR 12 HOURS DIRECTED. Start Date: 10/16/22 Status: Ordered lisinopril 20 mg oral tablet 40 mg, Tablet, By Mouth, 04/04/24 9:00:00 EDT Start Date: 04/04/24 Stop Date: 04/04/24 Status: Completed lisinopril 40 mg oral tablet TAKE ONE TABLET EVERY MORNING Start Date: 02/04/24 Status: Ordered Medrol Dosepak 4 mg oral tablet 1 pack/packet, By Mouth, Daily, for 6 days, as directed on package labeling, # 21 tablet, 5 Refills, Acute 05/10/24 12:41:00 EDT, 04/04/24 12:41:00 EDT, Tablet, Partial fill upon patient request if the prescription is for a schedule II opioid drug. Start Date: 04/04/24 Stop Date: 05/10/24 Status: Ordered MiraLax Powder 1 pack/packet = 17 Gm, By Mouth, Daily, 0 Refills, Maintenance, 03/23/24 9:00:00 EDT, Powder, Partial fill upon patient request if the prescription is for a schedule II opioid drug. Start Date: 03/23/24 Status: Ordered oxyCODONE 5 mg oral tablet 5 mg, By Mouth, Every 4 hours, PRN, for 7 days, # 42 tablet, Refills 0, Tot. Refills 0, Acute 04/11/24 12:44:00 EDT, Pain , Moderate, 04/04/24 12:44:00 EDT, Print Requisition, Partial fill upon patient request if the prescription is for a schedule II... Start Date: 04/04/24 Stop Date: 04/11/24 Status: Ordered oxyCODONE 5 mg oral tablet 10 mg, Tablet, By Mouth, Every 4 hours, PRN for Pain , Severe, Routine, 04/01/24 5:48:00 EDT Start Date: 04/01/24 Stop Date: 04/05/24 Status: Discontinued Proventil HFA 90 mcg/inh inhalation aerosol with adapter 2, puffs, Inhalation, Every 4 hours Start Date: 10/16/22 Status: Ordered senna 187 mg oral tablet 2 tablet = 17.2 mg, By Mouth, Daily, 0 Refills, Maintenance, 03/23/24 9:00:00 EDT, Tablet, Partial fill upon patient request if the prescription is for a schedule II opioid drug. Start Date: 03/23/24 Status: Ordered tiZANidine 4 mg oral tablet 4 mg, By Mouth, 3 times a day, Refills 0, Maintenance, 03/23/24 9:00:00 EDT, Partial fill upon patient request if [...] Confirmed Active Obese class I Confirmed Active Vital Signs Most recent to oldest [Reference Range]: 1 2 3 Height 160 cm (04/04/24 2:48 PM) 160 cm (04/04/24 6:42 AM) 160 cm (04/04/24 4:17 AM) Oxygen Saturation [94-100 %] 99 % (04/04/24 2:48 PM) 95 % (04/04/24 6:42 AM) 99 % (04/04/24 4:17 AM) Pulse Rate [55-90 bpm] 64 bpm (04/04/24 2:48 PM) 77 bpm (04/04/24 6:42 AM) 60 bpm (04/04/24 4:17 AM) Blood Pressure [90-138/55-84 mm Hg] 188/85mm Hg *H* (04/04/24 2:48 PM) 155/76mm Hg *H* (04/04/24 7:27 AM) 155/76mm Hg *H* (04/04/24 6:42 AM) Respiratory Rate [16-30 br/min] 17 br/min (04/04/24 3:44 PM) 20 br/min (04/04/24 2:48 PM) 17 br/min (04/04/24 12:49 PM) Temperature [96.8-100.4 DegF] 97.4 DegF (04/04/24 2:48 PM) 98.2 DegF (04/04/24 6:42 AM) 97.2 DegF (04/04/24 4:17 AM) Mode of Delivery (Oxygen) Room air (04/04/24 2:48 PM) Room air (04/04/24 6:42 AM) Room air (04/04/24 4:17 AM) Blood pressure sites Arm, right (04/04/24 2:48 PM) Arm, right (04/04/24 6:42 AM) Arm, right (04/04/24 4:17 AM) Temperature Route Oral (04/04/24 2:48 PM) Oral (04/04/24 6:42 AM) Oral (04/04/24 4:17 AM) Social History Social History Type Response Smoking Status Never (less than 100 in lifetime) entered on: 12/26/20 Sex Implantable Device List Procedure Provider Procedure Date Device Type Site Discectomy and Fusion Anterior Cervical Quinn Mcgarry MD 03/20/24 Unknown Cervical Spine Device Identifier Serial Number Lot or Batch Number Manufacturing Date Expiration Date Distinct Identification Code MRI Safety Implantable Status Assigning Authority Unknown Unknown Unknown Unknown 01/16/27 Unknown Unknown Active Unk nown Admission evaluation note * Jenae Hernandez: PERFORM Event Display: Admission Note Authored Date: [id number] Patient: ??RITO VERDE ? Age:??58 Years?Sex:??Female?:??1965?? Chief Complaint From snf, endorsing chronic neck pain that radiates to the arms x4 days, recently had throat surgery. Hx of stroke, baselines L sided weakness. History of Present Illness This is a 58 year-old female with??a history of CVA and recent history of right basal ganglia hemorrhagic stroke (02/03/24) after which she had developed left- sided weakness and urinary retention, johanna recent neurosurgical history of C5-C7 ACDF for C5-C6 central stenosis and C6-C7 left foraminal stenosis, done by Dr. Mcgarry on 03/20/2024, who presented to [facility] ED from her rehab facility [facility] for evaluation of neck pain radiating into her right upper extremity with associated paresthesias. Shestates that the symptoms started a few days after the surgery and have since persisted without any improvement, preventing her from fully participating with physical therapy. She denies new weakness in her right upper extremity though strength is somewhat limited by pain. Since surgery, her left upper extremity has improvement in strength and sensation to some degree. Additionally, her ability toambulate has also somewhat improved after surgery, with her estimating about an 80% improvement. Given new right upper extremity symptoms in setting of recent cervical spine surgery, neurosurgery was contacted for evaluation. Review of Systems Negative except as noted in HPI above. Physical Exam Vitals & Measurements T:??98.3?F?? TMIN:??98.1?F?? TMAX:??98.3?F?? HR:??50??(Peripheral)?? RR:??18?? BP:??127/84?? SpO2:??96%?? General: Awake alert and NAD HEENT: NC/AT, trachea midline. Anterior neck surgical incision healing well. No erythema, edema, wound opening, or drainage. Respiratory: Normal I&E, no acute respiratory distress.? Neurologic:?? Mental status: Awake, alert & oriented to person, place, and time Speech: clear, fluent and appropriate?? Follows simple and complex commands ?? Motor:?? Normal bulk and tone ?? Upper extremities: ? R ? L?? Deltoid? 4+/5? 4-/5 *pain limited (left shoulder pain) Biceps?4+/5?4+/5 Triceps?4+/5?4+/5 Wrist extension?4-5?4-/5 Finger collector?4/5?4/5 ?? Lower extremities: R?L IP?4+/5? 4+/5 Quads?4+/5?4+/5 Tibialis anterior?5/5?5/5 EHL?5/5?5/5 Gastroc/ Soleus?5/5?5/5 ?? Sensation??diffusely altered sensation/paresthesias in bilateral upper extremities. ?? Reflexes: ?Positive Turner's reflex bilaterally ?Positive ankle clonus L>R ?? Lockwood catheter in place. Assessment/Plan This is a 58 year-old female with??a history of CVA and recent history of right basal ganglia hemorrhagic stroke (02/03/24) after which she had developed left- sided weakness and urinary retention, johanna recent neurosurgical history of C5-C7 ACDF for C5-C6 central stenosis and C6-C7 left foraminal stenosis, done by Dr. Mcgarry on 03/20/2024, who presented to [facility] ED from her rehab facility [facility] for evaluation of neck pain radiating into her right upper extremity with associated paresthesias, ongoing since shortly after surgery. On exam, the patient did not have any new neurologic deficits. Surgical anterior neck incision healing well without sign of infection or wound dehiscence. The patient is well appearing, afebrile. ?? The patient's symptoms are most consistent with postoperative rebound nerve root inflammation. Steroid medication has been started to address this. ?? Plan: No neurosurgical intervention indicated at this time. Will admit onto neurosurgery service. Will consult medicine for medical management of medical conditions given signficant PMH. Begin Decadron 4mg q6h with GI ppx. ?? Continue??scheduled Tylenol, PRN oxycodone,??and??tizanidine. q4h neuro checks.?? Encourage ambulation, OOB with assistance. Continue Lockwood catheter for now (in place for approx 1.5 months). Pneumatic compression boots for DVT ppx. Incentive spirometer for??pulmonary hygiene.?? [place] [phone] for any questions or if exam changes. ?Case and plan of care discussed with??on-call attending neurosurgeon, Dr. Llamas. ?? Total Time Spent I personally spent a total of??50 minutes, including both [id number] and qlb-hrcs-yu-face time onthe date of the encounter, addressing the above diagnoses. Activities performed in this time include chart review, obtaining / reviewing history, performing amedically necessary evaluation, documentation and Care Coordination including medical decision making of Moderate Complexity (30-39 minutes for established patient) Problem List/Past Medical History Ongoing Anxiety Cerebrovascular disease Gastroesophageal reflux disease Heart disease Hyperlipidemia Hypertensive disorder Migraines Obese class I Procedure/Surgical History ? ?D&C, right salpingo-oophorectomy (09/05/2013)? ? section - at term (1999)? ?Salpingectomy, complete or partial, unilateral or bilateral (separate procedure) (1999)???Cesareansection - at term (1994)??? section - at term (1992)???hand surgery Medications Inpatient acetaminophen 325 mg oral tablet, 975 mg, By Mouth, 3 times a day albuterol CFC free 90 mcg/inh inhalation aerosol, 180 mcg= 2 puffs, Inhalation, Every 4 hours ARIPiprazole 10 mg oral tablet, 10 mg, By Mouth, Daily atorvastatin 20 mg oral tablet, 20 mg, By Mouth, Daily baclofen 10 mg oral tablet, 10 mg, By Mouth, 3 times a day, PRN cetirizine 5 mg oral tablet, 10 mg, By Mouth, Daily Decadron Liquid, 4 mg= 4 mL, By Mouth, Every 6 hours famotidine 20 mg oral tablet, 40 mg, By Mouth, Daily gabapentin 300 mg oral capsule, 600 mg, By Mouth, 3 times a day hydrOXYzine pamoate 25 mg oral capsule, 50 mg, By Mouth, 2 times a day, PRN lisinopril 20 mg oral tablet, 40 mg, By Mouth, Daily in AM MiraLax Powder, 17 Gm= 1 pack/packet, By Mouth, Daily MorPHINE Inj, 4 mg, IV Push Slowly, Every 15 minutes, PRN MorPHINE Inj, 1 mg, IV Push Slowly, Every hour, PRN Ondansetron Inj, 4 mg, IV Push, Every 6 hours, PRN oxyCODONE 5 mg oral tablet, 5 mg, By Mouth, Every 8 hours, PRN PROCHLORperazine Inj, 5 mg= 1 mL, IV Push, Every 6 hours, PRN Senokot Tablet, 17.2 mg= 2 tablet, By Mouth, Daily tiZANidine 4 mg oral tablet, 4 mg, By Mouth, 3 times a day venlafaxine 37.5 mg oral capsule, extended release, 75 mg, By Mouth, Daily Home acetaminophen 325 mg oral tablet, 975 mg, By Mouth, 3 times a day ARIPiprazole 10 mg oral tablet, 10 mg= 1 tablet, By Mouth, Daily atorvastatin 20 mg oral tablet, 20 mg= 1 tablet, By Mouth, Daily baclofen 10 mg oral tablet, 10 mg, By Mouth, 3 times a day, PRN cetirizine 10 mg oral tablet famotidine 20 mg oral tablet, 40 mg= 2 tablet, By Mouth, Daily gabapentin 600 mg oral tablet, 600 mg= 1 tablet, By Mouth, 3 times a day hydrOXYzine pamoate 50 mg oral capsule, 50 mg= 1 capsule, By Mouth, 2 times a day, PRN Lidoderm 5% film, 1 patch, Topically, Daily lisinopril 40 mg oral tablet MiraLax Powder, 17 Gm= 1 pack/packet, By Mouth, Daily oxyCODONE 5 mg oral tablet, 5 mg= 1 tablet, By Mouth, Every 8 hours, PRN Proventil HFA 90 mcg/inh inhalation aerosol with adapter, 2 puffs, Inhalation, Every 4 hours senna 187 mg oral tablet, 17.2 mg= 2 tablet, By Mouth, Daily tiZANidine 4 mg oral tablet, 4 mg, By Mouth, 3 times a day venlafaxine 75 mg oral capsule, extended release, 75 mg= 1 capsule, By Mouth, Daily Vitamin C 500 mg oral tablet, 500 mg= 1 tablet, By Mouth, Daily Allergies NKA Social History Alcohol Use: Current. Electronic Cigarette/Vaping Electronic Cigarette Use: Never. Substance Abuse Use: Past. Tobacco Use: Never (less than 100 in lifetime). Family History CAD - Coronary artery disease: Mother and Father. Diabetes mellitus type II: Mother and Father. Hypertension: Mother. Thyroid disease: Mother. Hospital Progress note * Anjali Craig LPN: SIGN, MODIFY, VERIFY, PERFORM, SIGN Event Display: Progress Note Hospital Authored Date: [id number] Patient: RITO VERDE Age: 58 years Sex: Female : 1965 Associated Diagnoses: None Author: Anjali Craig LPN Findings Nursing Data Vital Signs : VITAL SIGNS SECTION 04/03/2024 18:30 EDT Temperature 98.0 DegF Temperature Route Oral Pulse Rate 58 bpm Respiratory Rate 18 br/min Systolic Blood Pressure 153 mm Hg H Diastolic Blood Pressure 96 mm Hg H Blood pressure sites Arm, left Mean Arterial Pressure 115 mm Hg Pulse Pressure 57 mm Hg Oxygen Saturation 98 % Mode of Delivery (Oxygen) Room air . Evaluation Patient alert and oriented. C/O neck and left arm pain. States it is feeling better but she states she had a bad day today because she did not take any pain medications overnight. Educated the Patient on pain management and non phamacological pain management relief options. Patient states understanding. Patient deniea CP, SOB, Cough. Abdomen soft and non tender with bowel sounds present. LSCTA.Tolerating PO without nausea or vomiting. Anterior neck incision site clean, dry intact. Lockwood catheter patent, clear, light yellow urine draining. Patient removed kashif wrap to knee. No swelling or discoloration present. . Discharge Information Case Management Discharge Plan : Case Management Discharge Plan Data 04/02/2024 11:30 EDT Discharge Nursing Homes/Rehab Facilities [facility] Rehabilitation Discharge : Rehab Discharge Index 04/03/2024 15:51 EDT Walker: distance < 10 04/01/2024 8:24 EDT Comments on treatment indicated 58 y/o F with CVA on 02/02 and Cervial fusion in 03/20 re-admit from rehab with worsening neck pain. PT to see for therex, bed mobility, transfers, balance, and gait trng. Walker: distance >50 Distance pt will ambulate 50 ft with ww Full chart review completed Yes Hospital course Admit for increasing neck pain and Right UE parasthesias Plan of care PT Gait training, Transfer training, Therapeutic exercise, Functional Activities, Balance training * Anjali Craig LPN: PERFORM Event Display: Progress Note Hospital Authored Date: Patient b/p 172/90 HR 60 . Patient withno complaints at this time. Provider notified. No new ordersat this time other than to continue to monitor. * Hattie Weller RN: SIGN, PERFORM, VERIFY Event Display: Progress Note Hospital Authored Date: [id number] Patient: RITO VERDE Age: 58 years Sex: Female : 1965 Associated Diagnoses: None Author: Hattie Weller RN Findings Narrative/Incidental Patient unable to walk today with walker as her left knee felt weak. Up in chair for a short time this am. Requesting pain med frequently and complained of muscle spasms. Medicated with scheduled Tizanidine and PRN Baclofen. Lockwood patent with yellow urine. Rukhsanasurya had BM on BSC this am.. Discharge Information Case Management Discharge Plan : Case Management Discharge Plan Data 04/02/2024 11:30 EDT Discharge Nursing Homes/Rehab Facilities [facility] Rehabilitation Discharge : Rehab Discharge Index 04/03/2024 15:51 EDT Walker: distance < 10 04/01/2024 8:24 EDT Comments on treatment indicated 58 y/o F with CVA on 02/02 and Cervial fusion in 03/20 re-admit from rehab with worsening neck pain. PT to see for therex, bed mobility, transfers, balance, and gait trng. Walker: distance >50 Distance pt will ambulate 50 ft with ww Full chart review completed Yes Hospital course Admit for increasing neck pain and Right UE parasthesias Plan of care PT Gait training, Transfer training, Therapeutic exercise, Functional Activities, Balance training * Jessica Dunn: PERFORM, MODIFY Event Display: Progress Note Hospital Authored Date: Patient: ??RITO VREDE ? Age:??58 Years?Sex:??Female?:??1965?? Subjective No acute issues reported overnight. Pt reports ongoing LUE radiating pain, though improved from admission with use of steroids. Pt asks for Kashif bandage of LT knee as it has helped for her at home previously. Also asks for melatonin at night for help with insomnia. CM has sent referrals for Rehab placement. Objective Vitals & Measurements T:??97.6?F?? TMIN:??97.6?F?? TMAX:??98.7?F?? HR:??57??(Peripheral)?? RR:??17?? BP:??152/85?? SpO2:??99%?? Physical Exam General:?? appears stated age, awake,alert and NAD Neck incision appearing well-healed without concerns. Small amount of loose steri-strip present - still firmly adherent to inferior side of incision line. Neurologic:?? Mental status: awake, alert oriented to location, date and self?? speech clear, fluent appropriate,?? follows simple?? commands CN: grossly??intact Motor: normal bulk and tone?? Upper Extremities- Deltoid: ? 5/5 right ? 5/5 left Biceps: ?5/5 right ?5/5 left Triceps: ? 5/5 right ?5/5 left Hand collector:?4/5 right? 4/5 left Lower Extremities- Hip Flexion: ?5/5 right ?? 5/5 left?? Knee Extension: ? 5/5 right ?? 5/5 left Plantar flexion: ??5/5 right ?5/5 left Dorsiflexion: ?5/5 right ?5/5 left EHL: ?5/5 right ?5/5 left Sensation:?? Altered sensation in the right upper extremity ?? Bilateral Turner's and LLE sustained clonus present Assessment/Plan This is a 58 year-old female with a history of CVA and recent history of right basal ganglia hemorrhagic stroke (02/03/24) after which she had developed left- sided weakness and urinary retention, and a recent neurosurgical history of C5- C7 ACDF for C5-C6 central stenosis and C6-C7 left foraminal stenosis, done by Dr. Mcgarry on 03/20/2024, who presented to [facility] ED from her rehab facility tonight forevaluation of neck pain radiating into her right upper extremity with associated paresthesia's, ongoing since shortly after surgery. ?? On exam, the patient did not have any new neurologic deficits. Surgical anterior neck incision healing well without sign of infection or wound dehiscence. The patient is well appearing, afebrile. ?? The patient's symptoms are most consistent with postoperative rebound nerve root inflammation. Steroid medication has been started to address this. ?? Plan: CM sent referrals for Rehab - pending bed; maybe tomorrow If patient is able to get a bed we will discharge her on a??Medrol Dosepak so she can continue withsteroids as these have helped Kashif wrap for Lt knee PRN Melatonin added for bedtime insomnia PRN ?? Medications Inpatient acetaminophen 325 mg oral tablet, 975 mg, By Mouth, 3 times a day albuterol CFC free 90 mcg/inh inhalation aerosol, 180 mcg= 2 puffs, Inhalation, Every 4 hours, PRN ARIPiprazole 10 mg oral tablet, 10 mg, By Mouth, Daily atorvastatin 20 mg oral tablet, 20 mg, By Mouth, Daily baclofen 10 mg oral tablet, 10 mg, By Mouth, 3 times a day, PRN cetirizine 5 mg oral tablet, 10 mg, By Mouth, Daily Decadron Liquid, 4 mg= 4 mL, By Mouth, Every 6 hours famotidine 20 mg oral tablet, 40 mg, By Mouth, Daily gabapentin 300 mg oral capsule, 600 mg, By Mouth, 3 times a day hydrOXYzine pamoate 25 mg oral capsule, 50 mg, By Mouth, 2 times a day, PRN lisinopril 20 mg oral tablet, 40 mg, By Mouth, Daily in AM melatonin 3 mg oral tablet, 3 mg, By Mouth, Daily at bedtime, PRN MiraLax Powder, 17 Gm= 1 pack/packet, By Mouth, Daily MorPHINE Inj, 1 mg, IV Push Slowly, Every hour, PRN Ondansetron Inj, 4 mg, IV Push, Every 6 hours, PRN oxyCODONE 5 mg oral tablet, 5 mg, By Mouth, Every 4 hours, PRN oxyCODONE 5 mg oral tablet, 10 mg, By Mouth, Every 4 hours, PRN PROCHLORperazine Inj, 5 mg= 1 mL, IV Push, Every 6 hours, PRN Senokot Tablet, 17.2 mg= 2 tablet, By Mouth, Daily tiZANidine 4 mg oral tablet, 4 mg, By Mouth, 3 times a day venlafaxine 37.5 mg oral capsule, extended release, 75 mg, By Mouth, Daily Home acetaminophen 325 mg oral tablet, 975 mg, By Mouth, 3 times a day ARIPiprazole 10 mg oral tablet, 10 mg= 1 tablet, By Mouth, Daily atorvastatin 20 mg oral tablet, 20 mg= 1 tablet, By Mouth, Daily baclofen 10 mg oral tablet, 10 mg, By Mouth, 3 times a day, PRN cetirizine 10 mg oral tablet famotidine 20 mg oral tablet, 40 mg= 2 tablet, By Mouth, Daily gabapentin 600 mg oral tablet, 600 mg= 1 tablet, By Mouth, 3 times a day hydrOXYzine pamoate 50 mg oral capsule, 50 mg= 1 capsule, By Mouth, 2 times a day, PRN Lidoderm 5% film, 1 patch, Topically, Daily lisinopril 40 mg oral tablet MiraLax Powder, 17 Gm= 1 pack/packet, By Mouth, Daily oxyCODONE 5 mg oral tablet, 5 mg= 1 tablet, By Mouth, Every 8 hours, PRN Proventil HFA 90 mcg/inh inhalation aerosol with adapter, 2 puffs, Inhalation, Every 4 hours senna 187 mg oral tablet, 17.2 mg= 2 tablet, By Mouth, Daily tiZANidine 4 mg oral tablet, 4 mg, By Mouth, 3 times a day venlafaxine 75 mg oral capsule, extended release, 75 mg= 1 capsule, By Mouth, Daily Vitamin C 500 mg oral tablet, 500 mg= 1 tablet, By Mouth, Daily Consult note * Swathi VIERA, Felix: PERFORM, MODIFY, MODIFY Event Display: Consultation Note Authored Date: [id number] Patient: ??RITO VERDE ? Age:??58 Years?Sex:??Female?:??1965?? History of Present Illness 58-year-old female with history of hypertension, hyperlipidemia, anxiety/depression, history of right basal ganglia hemorrhagic stroke January 2024 with residual left-sided weakness and urinary retention status post Lockwood placement, recent neurosurgical history of C5-C7 ACDF for C5-C6 central stenosis and C6-C7 left foraminal stenosis 03/20/2024 presenting to the emergency department from her rehab facility with complaints of neck pain radiating to her right upper extremity associated with paresthesias.?? Patient is currently admitted under neurosurgical services, medicine consultation requestedfor management of comorbidities.?? Patient reports that she has been having constant neck pain withradiation to the right upper extremity over the past 5 days with associated numbness and tingling.?? Denies having any fever or chills, denies any weakness of the right upper extremity though movement is somewhat limited by pain..?? No chest pain or shortness of breath, no headaches, no changes in v ision, no abdominal pain, diarrhea, constipation or dysuria.?? Patient has received total of 8 mg of IV morphine in the emergency department.?? Per neurosurgery, patient's symptoms most consistent with postoperative rebound nerve root inflammation.?? She has been started on Decadron along with pain medications including Tylenol, oxycodone, morphine and tizanidine. Review of Systems All systems are reviewed??and are negative except as noted above in the HPI. Objective Vital Signs?? Temperature: 98.3 DegF (04/01/24 02:12:00) Temperature Route: Oral (04/01/24 02:12:00) Pulse Rate: 55 bpm (04/01/24 02:12:00) Respiratory Rate: 18 br/min (04/01/24 03:09:00) Systolic Blood Pressure:??154 mm Hg??High (04/01/24 02:12:00) Diastolic Blood Pressure:??88 mm Hg??High (04/01/24 02:12:00) Blood pressure sites: Arm, right (04/01/24 02:12:00) Mean Arterial Pressure: 110 mm Hg (04/01/24 02:12:00) Pulse Pressure: 66 mm Hg (04/01/24 02:12:00) Oxygen Saturation: 98 % (04/01/24 02:12:00) Mode of Delivery (Oxygen): Room air (04/01/24 02:12:00) Early Warning Score: 0 (04/01/24 03:09:46) ? Physical Exam General: Alert and oriented x 3, appears uncomfortable due to pain No acute cardiopulmonary distress HEENT: Atraumatic, normocephalic, EOMI, PERRL Neck: Well-healing anterior neck surgical incision, no edema, erythema or drainage noted CVS: S1, S2.?? RRR, no MRG, no JVD Abdomen: Soft, nontender, nondistended, positive bowel sounds : Lockwood catheter in place Respiratory: CTAB, no wheezes, crackles or rhonchi Neuro: Alert and oriented x 3, no facial asymmetry noted, moving all extremities spontaneously, bilateral upper and lower extremities 4 out of 5, reportedly with residual left-sided weakness however equal strength in all extremities on my exam, subjective numbness/tingling of the right upper extremity Psych: Appropriate mood and affect, cooperative Assessment/Plan ? 58-year-old female with history of hypertension, hyperlipidemia, anxiety/depression, history of right basal ganglia hemorrhagic stroke January 2024 with residual left-sided weakness and urinary retention status post Lockwood placement, recent neurosurgical history of C5-C7 ACDF for C5-C6 central stenosis and C6-C7 left foraminal stenosis 03/20/2024 presenting to the emergency department from her rehab facility with complaints of neck pain radiating to her right upper extremity associated with paresthesias.?? Patient is currently admitted under neurosurgical services, medicine consultation requestedfor management of comorbidities. ?? Recent C5-C7 ACDF 03/20/2024 Right upper extremity pain and paresthesias ?? -Likely postop rebound nerve root inflammation per neurosurgery -Patient currently on Decadron with GI prophylaxis, Tylenol, oxycodone, morphine and tizanidine, baclofen, gabapentin -Management per primary team. ?? History of recent?? 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 Continue with atorvastatin, not on aspirin anymore. ?? Urinary retention: -Status post Lockwood catheter placement ?? Hyperlipidemia: Continue with atorvastatin ?? Hypertension: Continue with lisinopril ?? Generalized anxiety disorder Depression ?? Continue with venlafaxine, aripiprazole, hydroxyzine as needed ?? VTE prophylaxis: Pneumatic compression boots per primary team ?? CODE STATUS: Full code. ?? Thank you for allowing us to participate in the care of your patient, medicine team will continue to follow along with you.?? Please page [phone] for any questions or concerns. Histories Allergies Allergies ?(Active and Proposed Allergies [...] hand surgery ? Social History Alcohol Details:??Use: drinks socially Substance Abuse Details:??Use: Current. ??Type: Marijuana. Tobacco Details:??Use: Never (less than 100 in lifetime). Electronic Cigarette/Vaping Details:??Electronic Cigarette Use: Never. ? Family History Mother: CAD - Coronary artery disease; Diabetes mellitus type II; Hypertension; Thyroid disease Father: CAD - Coronary artery disease; Diabetes mellitus type II ? Medications Home Medications Acetaminophen (acetaminophen 325 mg oral tablet)?975?Milligram?By Mouth?3 times a day Albuterol (Proventil HFA 90 mcg/inh inhalation aerosol with adapter)?2?puff(s)?Inhalation?Every 4 hours Aripiprazole (ARIPiprazole 10 mg oral tablet)?10?Milligram?1?tablet?By Mouth?Daily Ascorbic Acid (Vitamin C 500 mg oral tablet)?1?tab(s)?500?Milligram?By Mouth?Daily Atorvastatin (atorvastatin 20 mg oral tablet)?1?tab(s)?20?Milligram?By Mouth?Daily Baclofen (baclofen 10 mg oral tablet)?10?Milligram?By Mouth?3 times a day?as needed?Spasm Cetirizine (cetirizine 10 mg oral tablet)?TAKE ONE TABLET BY MOUTH EVERY DAY Famotidine (famotidine 20 mg oral tablet)?40?Milligram?2?tablet?By Mouth?Daily Gabapentin (gabapentin 600 mg oral tablet)?1?tab(s)?600?Milligram?By Mouth?3 times a day HydrOXYzine (hydrOXYzine pamoate 50 mg oral capsule)?1?capsule?50?Milligram?By Mouth?2 times a day?as needed?as needed for anxiety Lidocaine Topical (Lidoderm 5% film)?1 patch?Topically?Daily?LEAVE ON FOR 12 HOURS, THEN OFF FOR 12 HOURS DIRECTED. Lisinopril (lisinopril 40 mg oral tablet)?TAKE ONE TABLET EVERY MORNING Oxycodone (oxyCODONE 5 mg oral tablet)?5?Milligram?1?tablet?By Mouth?Every 8 hours?as needed?for 7?Days?as needed for pain Polyethylene Glycol 3350 (MiraLax Powder)?1?pack/packet?17?gram?By Mouth?Daily Senna (senna 187 mg oral tablet)?2?tab(s)?17.2?Milligram?By Mouth?Daily Tizanidine (tiZANidine 4 mg oral tablet)?4?Milligram?By Mouth?3 times a day Venlafaxine (venlafaxine 75 mg oral capsule, extended release)?75?Milligram?1?capsule?By Mouth?Daily ? Results Recent Labs BLOOD COUNT & DIFF WBC 7.2 k/mm3 ()?? 03/31/2024 20:14 RBC 4.05 m/mm3 (Low)?? 03/31/2024 20:14 Hgb 11.5 Gm/dL (Low)?? 03/31/2024 20:14 Hct 35.1 % (Low)?? 03/31/2024 20:14 MCV 86.7 femtoliters ()?? 03/31/2024 20:14 MCH 28.4 pg ()?? 03/31/2024 20:14 MCHC 32.8 g/dL (Low)?? 03/31/2024 20:14 Platelet Count 327 k/mm3 ()?? 03/31/2024 20:14 RDW-SD 39.5 femtoliters ()?? 03/31/2024 20:14 MPV 9.9 femtoliters ()?? 03/31/2024 20:14 Nucleated RBC (Automated) 0.0 #/100 WBC'S ()?? 03/31/2024 20:14 Abs. NRBC 0.0 k/mm3 ()?? 03/31/2024 20:14 Abs. Neut 3.2 k/mm3 ()?? 03/31/2024 20:14 Abs. Lymph 3.0 k/mm3 ()?? 03/31/2024 20:14 Abs. [place] 0.6 k/mm3 ()?? 03/31/2024 20:14 Abs. Eo 0.4 k/mm3 ()?? 03/31/2024 20:14 Abs. Baso 0.1 k/mm3 ()?? 03/31/2024 20:14 Neut % 44.5 % ()?? 03/31/2024 20:14 Lymph % 41.6 % ()?? 03/31/2024 20:14 [place] % 7.6 % ()?? 03/31/2024 20:14 Eos % 5.5 % ()?? 03/31/2024 20:14 Baso % 0.7 % ()?? 03/31/2024 20:14 Imm Gran 0.1 % ()?? 03/31/2024 20:14 Abs. Imm Gran 0.0 k/mm3 ()?? 03/31/2024 20:14 ?? CHEM GENERAL Sodium 140 mmol/L ()?? 03/31/2024 20:14 Potassium 4.8 mmol/L ()?? 03/31/2024 20:14 Chloride 108 mmol/L (High)?? 03/31/2024 20:14 Bicarbonate Level 19 mmol/L (Low)?? 03/31/2024 20:14 Anion Gap 13 ()?? 03/31/2024 20:14 Glucose Level 110 mg/dL (High)?? 03/31/2024 20:14 BUN 17 mg/dL ()?? 03/31/2024 20:14 Creatinine-Blood 0.75 mg/dL ()?? 03/31/2024 20:14 Estimated GFR Creatinine 92 ML/MIN/1.73 M2 ()?? 03/31/2024 20:14 Calcium 9.5 mg/dL ()?? 03/31/2024 20:14 Lactate 1.0 mmol/L ()?? 03/31/2024 20:14 ?? HEME OTHER Hold Blue Top SPECIMEN DISCARDED AFTER 4 HOURS. ()?? 03/31/2024 20:14 ? Note * Monty WEBER, Jonnathan Andersen: PERFORM, MODIFY Event Display: Discharge/Transfer Note Hospital Authored Date: [id number] Patient: ??RITO VERDE ? Age:??58 Years?Sex:??Female?:??1965?? Admit Date Admission Date: 03/31/2024 Discharge Date 04/04/24 Discharge Diagnoses Arm pain-swelling, 03/31/2024 General medical, 03/31/2024 Hospital Course ?? history of right basal ganglia hemorrhagic stroke January 2024 with residual left-sided weakness and urinary retention status post Lockwood placement, recent neurosurgical history of C5-C7 ACDF for C5-C6 central stenosis and C6-C7 left foraminal stenosis 03/20/2024 presenting to the emergency department from her rehab facility with complaints of neck pain radiating to her right upper extremity associated with paresthesias. She was treated??with analgesics??including steroids. She was also discharged with??a medrol dose bibi.?? Neurosurgery follow up April 20,??3:30pm. Patient is discharged with Oxycodone, Balcofen and Medrol dose bibi. Objective/Physical Exam on Day of Discharge Vitals & Measurements T:??98.2?F?? HR:??77??(Peripheral)?? RR:??18?? BP:??155/76?? SpO2:??95%?? HT:??160??cm?? Physical Exam?? 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 - EOMI?? -Following commands?? - Moving all extremities?? -Strength 5/5 bilat??except deltoid +4/5 -Sensation numbness bilateral hand and LLE GCS:15 ? Future Appointments 2023 3:30 PM EDT ?? Where: [facility] Neurosurgery [address] [place] [address] [place] [address]- Status: Pending Wednesday 3:00 PM EDT ?? With: Mary VIERA [facility] Where: [facility] Neurology [address] [place] [address]- Status: Pending Patient Discharge Condition Stable Discharge Disposition Rehab Home Health Face to Face ^HomeHealthFTF Inpatient Medications Medications (21) Active SCHEDULED: (12) Acetaminophen 325 mg Tablet (acetaminophen 325 mg oral tablet) ??975 mg, By Mouth, 3 times a day Aripiprazole 10mg Tablet (ARIPiprazole 10 mg oral tablet) ??10 mg, By Mouth, Daily Atorvastatin 20 mg Tablet (atorvastatin 20 mg oral tablet) ??20 mg, By Mouth, Daily Cetirizine 5 mg Tablet (cetirizine 5 mg oral tablet) ??10 mg, By Mouth, Daily Dexamethasone 4 mg / 4 mL Oral Syringe (Decadron Liquid) ??4 mg 4 mL, By Mouth, Every 6 hours Famotidine 20 mg Tablet (famotidine 20 mg oral tablet) ??40 mg, By Mouth, Daily Gabapentin 300 mg Capsule (gabapentin 300 mg oral capsule) ??600 mg, By Mouth, 3 times a day Lisinopril 20 mg Tablet (lisinopril 20 mg oral tablet) ??40 mg, By Mouth, Daily in AM Polyethylene Glycol 17 Gm Powder (MiraLax Powder) ??17 Gm 1 pack/packet, By Mouth, Daily Senna Tablet (Senokot Tablet) ??17.2 mg 2 tablet, By Mouth, Daily Tizanidine 4 mg Tablet (tiZANidine 4 mg oral tablet) ??4 mg, By Mouth, 3 times a day Venlafaxine 37.5 mg XR Capsule (venlafaxine 37.5 mg oral capsule, extended release) ??75 mg, By Mouth, Daily CONTINUOUS: (0) PRN: (9) Albuterol 90mcg/Inhalation Inhaler HFA (albuterol CFC free 90 mcg/inh inhalation aerosol) ??180 mcg2 puffs, Inhalation, Every 4 hours Baclofen 10 mg Tablet (baclofen 10 mg oral tablet) ??10 mg, By Mouth, 3 times a day HydrOXYzine Pamoate 25mg Capsule (hydrOXYzine pamoate 25 mg oral capsule) ??50 mg, By Mouth, 2 times a day Melatonin 3 mg Tablet (melatonin 3 mg oral tablet) ??3 mg, By Mouth, Daily at bedtime MorPHINE 2 mg Inj Syringe (MorPHINE Inj) ??1 mg, IV Push Slowly, Every hour Ondansetron 2mg/mL Inj (2mL Vial) (Ondansetron Inj) ??4 mg, IV Push, Every 6 hours OxyCODONE 5 mg IR Tablet (oxyCODONE 5 mg oral tablet) ??5 mg, By Mouth, Every 4 hours OxyCODONE 5 mg IR Tablet (oxyCODONE 5 mg oral tablet) ??10 mg, By Mouth, Every 4 hours PROCHLORperazine 5mg/ml Inj (PROCHLORperazine Inj) ??5 mg 1 mL, IV Push, Every 6 hours Discharge Medications Acetaminophen (acetaminophen 325 mg oral tablet)?975?Milligram?By Mouth?3 times a day Albuterol (Proventil HFA 90 mcg/inh inhalation aerosol with adapter)?2?puff(s)?Inhalation?Every 4 hours Aripiprazole (ARIPiprazole 10 mg oral tablet)?10?Milligram?1?tablet?By Mouth?Daily Ascorbic Acid (Vitamin C 500 mg oral tablet)?1?tab(s)?500?Milligram?By Mouth?Daily Atorvastatin (atorvastatin 20 mg oral tablet)?1?tab(s)?20?Milligram?By Mouth?Daily Baclofen (baclofen 10 mg oral tablet)?10?Milligram?By Mouth?3 times a day?as needed?Spasm Cetirizine (cetirizine 10 mg oral tablet)?TAKE ONE TABLET BY MOUTH EVERY DAY Famotidine (famotidine 20 mg oral tablet)?40?Milligram?2?tablet?By Mouth?Daily Gabapentin (gabapentin 600 mg oral tablet)?1?tab(s)?600?Milligram?By Mouth?3 times a day HydrOXYzine (hydrOXYzine pamoate 50 mg oral capsule)?1?capsule?50?Milligram?By Mouth?2 times a day?as needed?as needed for anxiety Lidocaine Topical (Lidoderm 5% film)?1 patch?Topically?Daily?LEAVE ON FOR 12 HOURS, THEN OFF FOR 12 HOURS DIRECTED. Lisinopril (lisinopril 40 mg oral tablet)?TAKE ONE TABLET EVERY MORNING Polyethylene Glycol 3350 (MiraLax Powder)?1?pack/packet?17?gram?By Mouth?Daily Senna (senna 187 mg oral tablet)?2?tab(s)?17.2?Milligram?By Mouth?Daily Tizanidine (tiZANidine 4 mg oral tablet)?4?Milligram?By Mouth?3 times a day Venlafaxine (venlafaxine 75 mg oral capsule, extended release)?75?Milligram?1?capsule?By Mouth?Daily Labs Last 24 Hours No qualifying data available. * Rosi Mosqueda LPN: PERFORM Event Display: Patient Education/Instruction Authored Date: [id number] Inpatient Adult Discharge Instructions. [address] [id number] Name: RITO MEHREEN : 1965?? Visit: 03/31/2024 19:14?? Current Date: 04/04/2024 15:06 ?? Account: [id number]?? Inpatient Adult Discharge Instructions We would like [...] and their families. Surveys are administered by [employer] ?? If further treatment with your primary care physician or another doctor is recommended, it is important for you to keep the appointment. Call your primary care physician or return to the Emergency Department immediately if your condition worsens, fails to improve, or new symptoms develop. If you need to find a doctor, you can call [facility] Quickoffice for a referral at [phone] or toll free at [phone]) or log in to [email or web address].. ?? [facility], in keeping with [facility] guidance, no longer requires face masks [...] a health care rigoberto of your choosing. [employer] is a website that allows you to securely view your medical information including your hospital discharge summary, office visit summaries, medications and follow-up visits. You can also request appointments, renew medications, and request access to your medical information using a health care rigoberto of your choosing, or just ask a question. You can enroll at [email or web address] or register during your next office visit. You have been discharged from [facility], Patient Care Unit: D3B??. If you have any questions regarding these instructions, including results of studies pending, afteryou leave, please call us and we will be happy to assist you 31/05. [facility] Your Care Team Attending Physician Haritha Llamas DO?? Consulting Providers Haritha Llamas DO?? Discharging Providers Monty WEBER, Jonnathan Andersen Reason for Your Visit From snf, endorsing chronic neck pain that radiates to the arms x4 days, recently had throat surgery. Hx of stroke, baselines L sided weakness.?? Your Diagnosis Arm pain-swelling General medical Tests Performed Below is a partial list of the tests performed during your hospitalization. You may have had other tests and procedures not included in this list. Please discuss all test results with your provider. Basic Metabolic Panel CBC w/ Differential Hold Blue Top Tube Lactate Level Hold Lavender Tube (BB)?? Primary Care Provider Xin Diaz MD? Advance Directive Health Care Proxy on File Yes - Health Care Proxy Discharge Vitals Temperature: 97.4 DegF Height: 160 cm Pulse Rate: 64 bpm ?? Respiratory Rate: 20 br/min ?? Systolic Blood Pressure:??188 mm Hg??High ?? Diastolic Blood Pressure:??85 mm Hg??High ?? Oxygen Saturation: 99 % ?? Studies Pending All studies ordered during this hospital stay have been completed unless listed below. Please discuss all pending results with your provider listed above in these instructions. ?? Hold Lavender Tube (BB)?? What to do next Instructions From Your Doctor ?? Orders? 04/04/24 14:58:00 EDT?? Scheduled Follow-Up Appointments 2023 3:30 PM EDT ?? Where: [facility] Neurosurgery [address] [place] [address] [place] [address]- Status: Pending Wednesday 3:00 PM EDT ?? With: Mary VIERA [facility] Where: [facility] Neurology [address], [address] [place] [address]- Status: Pending Discharge Medications RITO VERDE :1965 Visit Date:03/31/2024 Medications: Please continue your medications until treatment is completed or stopped by your provider. Medications not listed below should be discontinued. Discuss any questions related to medications with your provider. What How Much When Instructions Next Dose New MethylPREDNISolone (Medrol Dosepak 4 mg oral tablet) 1 pack/packet Oral Daily Duration: 6 Days Refills: 5 as directed on package labeling ?? Printed Prescription 04/05/24 New Oxycodone (oxyCODONE 5 mg oral tablet) 5 Milligram Oral Every 4 hours as needed for Pain , Moderate Duration: 7 Days Printed Prescription follow as prescribe last dose given at 1600 Changed Baclofen (baclofen 10 mg oral tablet) 10 Milligram Oral 3 times a day as needed for Spasm Duration: 7 Days Printed Prescription follow as prescribe last dose given 11:49 Changed Baclofen (baclofen 10 mg oral tablet) 10 Milligram Oral 3 times a day as needed for Spasm duplicate Unchanged Acetaminophen (acetaminophen 325 mg oral tablet) 975 Milligram Oral 3 times a day follow as prescribe Unchanged Albuterol (Proventil HFA 90 mcg/ inh inhalation aerosol with adapter) 2 puff(s) Inhalation Every 4 hours follow as prescribe Unchanged Aripiprazole (ARIPiprazole 10 mg oral tablet) 1 tab(s) Oral Daily 04/05/24 Unchanged Ascorbic Acid (Vitamin C 500 mg oral tablet) 1 tab(s) Oral Daily 04/05/24 Unchanged Atorvastatin (atorvastatin 20 mg oral tablet) 1 tab(s) Oral Daily 04/05/24 Unchanged Cetirizine (cetirizine 10 mg oral tablet) TAKE ONE TABLET BY MOUTH EVERY DAY ?? follow as prescribe Unchanged Famotidine (famotidine 20 mg oral tablet) 2 tab(s) Oral Daily 04/05/24 Unchanged Gabapentin (gabapentin 600 mg oral tablet) 1 tab(s) Oral 3 times a day 04/04/24 evening Unchanged HydrOXYzine (hydrOXYzine pamoate 50 mg oral capsule) 1 capsule Oral Twice a day as needed for as needed for anxiety follow as prescribe Unchanged Lidocaine Topical (Lidoderm 5% film) 1 patch Topically Daily LEAVE ON FOR 12 HOURS, THEN OFF FOR 12 HOURS DIRECTED. ?? 04/05/24 Unchanged Lisinopril (lisinopril 40 mg oral tablet) TAKE ONE TABLET EVERY MORNING ?? 04/05/24 Unchanged Polyethylene Glycol 3350 (MiraLax Powder) 17 gram Oral Daily 04/05/24 Unchanged Senna (senna 187 mg oral tablet) 2 tab(s) Oral Daily 04/05/24 Unchanged Tizanidine (tiZANidine 4 mg oral tablet) 4 Milligram Oral 3 times a day 04/05/24 evening Unchanged Venlafaxine (venlafaxine 75 mg oral capsule, extended release) 1 capsule Oral Daily 04/05/24 Prescription Given During Visit Baclofen (baclofen 10 mg oral tablet) - 10 mg, By Mouth, 3 times a day, # 21 tablet, 0 Refills?? MethylPREDNISolone (Medrol Dosepak 4 mg oral tablet) - 1 pack/packet, By Mouth, Daily, # 21 tablet,5 Refills, as directed on package labeling?? Oxycodone (oxyCODONE 5 mg oral tablet) - 5 mg, By Mouth, Every 4 hours, # 42 tablet, 0 Refills?? Laboratory Results Below is a partial list of the most recent Laboratory test results done prior to this discharge. You may have had other tests and procedures not included in this list. Please discuss all test resultswith your provider. Basic Metabolic Panel (03/31/2024) ???Sodium - 140 mmol/L???Potassium - 4.8 mmol/L???Chloride - 108 mmol/L???Bicarbonate Level - 19 mmol/L???Anion Gap - 13???Glucose Level - 110 mg/dL???BUN - 17 mg/dL???Creatinine-Blood - 0.75 mg/dL???Estimated GFR Creatinine - 92 ML/MIN/1.73 M2???Calcium - 9.5 mg/dL CBC w/ Differential (03/31/2024) ???WBC - 7.2 k/mm3???RBC - 4.05 m/mm3???Hgb - 11.5 Gm/dL???Hct - 35.1 %???MCV - 86.7 femtoliters???MCH - 28.4 pg???MCHC - 32.8 g/dL???Platelet Count - 327 k/mm3???RDW-SD - 39.5 femtoliters???MPV - 9.9 femtoliters???Nucleated RBC (Automated) - 0.0 #/100 WBC'S???Abs. NRBC - 0.0 k/mm3???Abs. Neut - 3.2 k/mm3???Abs. Lymph - 3.0 k/mm3???Abs. [place] - 0.6 k/mm3???Abs. Eo - 0.4 k/mm3???Abs. Baso - 0.1 k/mm3???Neut % - 44.5 %???Lymph % - 41.6 %???[place] % - 7.6 %???Eos % - 5.5 %???Baso % - 0.7 %???Imm Gran- 0.1 %???Abs. Imm Gran - 0.0 k/mm3 Hold Blue Top Tube (03/31/2024) ???Hold Blue Top - SPECIMEN DISCARDED AFTER 4 HOURS. Lactate Level (03/31/2024) ???Lactate - 1.0 mmol/L Allergies (NKA means No Known Allergies) NKA Problems Active Problems??(9) Anxiety?? Cerebrovascular disease?? Gastroesophageal reflux disease?? Heart disease?? Hyperlipidemia?? Hypertensive disorder?? left ventricular hypertrophy?? Migraines?? Obese class I?? Education Materials Below is the list of Educational Leaflet Providered with your Discharge Instructions. Valuables and Belongings I fully understand and agree that [facility] accepts no responsibility for all my personal [...] to send valuables and belongings home. ?? Date for Pt to Sign Valuables/Belongings: 03/31/24 22:34:00 ?? Other Discharge Information ? Case Management Discharge Plan?? Discharge Plan?? Discharge Agency Information?? Discharge Level of Care at Discharge: [facility] facility Name of Agency [facility]1: [facility] Discharge Transportation Arranged: [employer] Jeanette Beyer [facility] [id number] [phone] Service Start Date and Time #1: 04/04/24 15:00:00 Mode of Transportation Arranged: Chair Van Service Categories #1: Physical Therapy, Jail Discharge Arranged Transport Date/Time: 04/04/24 15:00:00 Service Comments #1: You will be dischrged to rehab today Discharge Nursing Homes/Rehab Facilities: [facility] ? Pulmonary Rehab Status?? Pulmonary Rehab Discharge Status?? Respiratory Rate: 20 br/min ? Common Emergency Awareness Tips IS IT [...] are strongly encouraged to quit. Please call [facility] EnStorage Link at [phone] or [phone] ([phone]) or log in to [email or web address] for referrals to smoking cessation programs. ?? 800 Suicide & Crisis Lifeline is available 31/05 if you or someone you know needs to find a reason to keep living. By calling 169 you'll be connected to a skilled, trained counselor at a crisis center in your area. INPATIENT DISCHARGE INSTRUCTIONS SIGNATURE PAGE RITO VERDE Location:[facility] Registration Date and Time:03/31/2024 19:14 EDT Primary Care Physician: Joe VIERA, Xin Dubose, Attending Physician: Haritha Llamas DO, I RITO VERDE, have received the above patient education materials/instructions and have verbalized understanding. If ambulance or transport services are being used I further acknowledge being givena choice of service. ?? If you need to contact me, please call me at this number: . 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/Locomotive Firer/Fireman Name: Patient/Locomotive Firer/Fireman Signature: Relationship to Patient: Witness Name/Signature: Date: Patient Care team information Care Team Personnel Name: Tania Vuong RN Position: S RN Member Role: Primary Care Nurse Name: Yohana Coffey RN Position: S RN Member Role: Primary Care Nurse Name: Patricia Beltran RN Position: S RN Member Role: Primary Care Nurse Name: Parvin Lema RN Position: S RN Member Role: Primary Care Nurse Name: Khoa Marcelo RN Position: S RN Member Role: Primary Care Nurse Name: Oscar Velasquez RN Position: [facility] RN Supv Member Role: Primary Care Nurse Name: Nancy Rivera RN Position: [facility] RN Member Role: Primary Care Nurse Name: Ericka Crane RN Position: [facility] RN Member Role: Primary Care Nurse Name: Angie Green LPN Position: [facility] RN Member Role: Primary Care Nurse Name: Xin Diaz MD Position: [facility] Physician - Primary Care Member Role: PCP Address: Address: [address] [place] [address] [address] [facility] Acute [facility] [place] [address]- Name: Kyleigh Blount RN Position: [facility] RN Member Role: Primary Care Nurse Name: Parvin Walton RN Position: [facility] RN Member Role: Primary Care Nurse Name: Mere Vargas RN Position: [facility] RN Member Role: Primary Care Nurse Name: Ines Plasencia Position: [facility] RN Member Role: Primary Care Nurse Name: Joselyn Lafleur RN Position: [facility] RN Member Role: Primary Care Nurse Name: Hattie Weller RN Position: [facility] RN Member Role: Primary Care Nurse Name: Yesika Paris RN Position: [facility] RN Member Role: Primary Care Nurse Name: Janine Carranza RN Position: [facility] RN Member Role: Primary Care Nurse Name: Estefani Sterling RN Position: [facility] RN Member Role: Primary Care Nurse Name: Rosi Mosqueda LPN Position: [facility] RN Member Role: Primary Care Nurse Name: Jessica Booth Position: [facility] RN Member Role: Primary Care Nurse Care Team Related Persons Name: JACLYN VERDE Address: home [address] [place] [address] Name: JACLYN GARRIDO Address: home [place], [place] Name: LB PELAYO Address: home [address]
--- OUTSIDE RECORDS SUMMARY | 2024-06-11 16:32 | XMS_ITS | Continuity of Care Document ---
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 Role Phone Aliza Paul DO Primary Care Physician [phone] Encounter [facility] Date(s): 03/23/24 - 05/20/24 [facility] [address] [place] [address] Drive [address] [place] [address]- Attending Physician: Not on Staff, Attending MD Referring Physician: Karlie Bhardwaj Allergies, Adverse Reactions, Alerts No Known Allergies Immunizations Given and Recorded Vaccine Date Status Refusal Reason SARS-CoV-2 mRNA ([id number]) vax 10/17/22 Given Rabies vaccine,purified chick embryo [...] Team Personnel Name: Francesca Galvan RN Position: [facility] RN Member Role: Primary Care Nurse Name: Yohana Coffey RN Position: [facility] RN Member Role: Primary Care Nurse Name: Patricia Beltran RN Position: [facility] RN Member Role: Primary Care Nurse Name: Parvin Lema RN Position: [facility] RN Member Role: Primary Care Nurse Name: Khoa Marcelo RN Position: [facility] RN Member Role: Primary Care Nurse Name: Oscar Velasquez RN Position: [facility] RN Supv Member Role: Primary Care Nurse Name: Nancy Rivera RN Position: [facility] RN Member Role: Primary Care Nurse Name: Ericka Crane RN Position: [facility] RN Member Role: Primary Care Nurse Name: Patricia Han RN Position: [facility] RN Member Role: Primary Care Nurse Name: Angie Green LPN Position: [facility] RN Member Role: Primary Care Nurse Name: Aliza Paul DO Position: S Outreach Member Role: PCP Address: Address: [address] [place] [id number] [place] Name: Kyleigh Blount RN Position: [facility] RN Member Role: Primary Care Nurse Name: Parvin Walton RN Position: [facility] RN Member Role: Primary Care Nurse Name: Mere Vargas RN Position: [facility] RN Member Role: Primary Care Nurse Name: Walter Powell RN Position: [facility] RN Member Role: Primary Care Nurse Name: Ines Plasencia RN Position: [facility] RN Member Role: Primary Care Nurse Name: Joselyn Lafleur RN Position: [facility] RN Member Role: Primary Care Nurse Name: Manan Summers RN Position: [facility] RN Member Role: Primary Care Nurse Name: Tania Sanders RN Position: [facility] RN Member Role: Primary Care Nurse Name: Hattie Weller RN Position: [facility] RN Member Role: Primary Care Nurse Name: Yesika Paris RN Position: [facility] RN Member Role: Primary Care Nurse Name: Janine Carranza RN Position: [facility] RN Member Role: Primary Care Nurse Name: Estefani Sterling RN Position: [facility] RN Member Role: Primary Care Nurse Name: Rosi Mosqueda LPN Position: [facility] RN Member Role: Primary Care Nurse Name: Jessica Booth LPN Position: [facility] RN Member Role: Primary Care Nurse Care Team Related Persons Name: JACLYN VERDE Address: home [address] [place] [address] Name: JACLYN GARRIDO Address: [place] [address] Name: LB PELAYO Address: home [address] [facility] [address] [place] [address]
--- OUTSIDE RECORDS SUMMARY | 2024-06-11 16:32 | XMS_ITS | Continuity of Care Document ---
Author Organization [facility] ter Address [address] [place] [id number]- Care Team Providers Care Roll Carrier Name Role Phone RupalAliza toribio DO Gracy Primary Care Physician Encounter [facility] Date(s): 03/12/24 - 03/23/[address] [address]- Discharge Disposition: A-Transfer SNF Attending Physician: Roxana Hdz MD Admitting Physician: Denton VIERA, Noor Referring Physician: Not on Staff, Referring MD Allergies, Adverse Reactions, Alerts No Known Allergies Immunizations Given and Recorded Vaccine Date Status Refusal Reason SARS-CoV-2 mRNA ([id number]) vax 10/17/22 Given Rabies vaccine,purified chick embryo [...] drug. Start Date: 10/20/22 Status: Ordered gabapentin 300 mg oral capsule 600 mg, Capsule, By Mouth, 03/23/24 9:00:00 EDT Start Date: 03/23/24 Stop Date: 03/23/24 Status: Completed gabapentin 600 mg oral tablet [...] EVERY MORNING Start Date: 02/04/24 Status: Ordered MiraLax Powder 1 pack/packet = 17 Gm, By Mouth, Daily, 0 Refills, Maintenance, 03/23/24 9:00:00 EDT, Powder, Partial fill upon patient request if the prescription is for a schedule II opioid drug. Start Date: 03/23/24 Status: Ordered oxyCODONE 5 mg oral tablet 10 mg, By Mouth, Every 6 hours, PRN, for 3 days, taper dose at rehab. hold for drowsy,RR<14, # 24 tablet, Refills 0, Tot. Refills 0, Acute 03/26/24 9:01:00 EDT, Pain , Severe, 03/23/24 9:01:00 EDT, Print Requisition, Partial fill upon patient request... Start Date: 03/23/24 Stop Date: 03/26/24 Status: Ordered oxyCODONE 5 mg oral tablet 10 mg, Tablet, By Mouth, Every 6 hours, Hold for: lethargy, RR<12 or systolic BP<100 mmHg, PRN for Pain , Severe, Routine, 03/22/24 10:56:00 EDT Start Date: 03/22/24 Stop Date: 03/23/24 Status: Discontinued Proventil HFA 90 mcg/inh inhalation [...] Exam Date Time Procedure Performing Provider Status 03/20/24 5:00 PM C-Arm < 1 Hour Juan José Samson; Auth (Ike ified) Notes: (C-Arm < 1 Hour) Reason For Exam: ACDF 2 Level (C5-C7) RESULT: C-Arm < 1 Hour Cervical Spine 3 Views or Less, C-Arm < 1 Hour INDICATION: Reason: ACDF 2 Level (C5-C7) COMPARISONS: None TECHNIQUE: Fluoroscopy support was provided. There was no radiologist in attendance. FLUOROSCOPY TIME: 10.8 seconds EXPOSURE: 4.07 mGy (reference air kerma) TECHNOLOGIST TIME: 55 minutes FINDINGS: 3 fluoroscopic images of the cervical spine in lateral projection obtained by the portable image intensifier in the operating room show evidence of moderate degenerative changes at C4-C5 and C5-C6. A metallic needle is pointing anteriorly at the C4-C5 disc. Final images show ACDF C5-C7 with interbody spacers. Please refer to the operative report for more details. IMPRESSION: See above. WSN: [id number] Ordering Physician: Quinn Mcgarry Dictated By: Christo Cool MD, V Dictated Date/Time: 03/20/24 5:04 pm Reviewed By: Christo Cool MD, V Signed By: Christo Cool MD, V Signed Date/Time: 03/20/24 5:04 pm Transcribed By: SHERON Transcribed Date/Time: 03/20/24 5:02 pm * Exam Date Time Procedure Performing Provider Status 03/20/24 5:00 PM Cervical Spine 3 Views or Less Juan José Samson; Porfirio Notes: (Cervical Spine 3 Views or Less) Reason For Exam: ACDF 2 Level (C5-C7) RESULT: Cervical Spine 3 Views or Less Cervical Spine 3 Views or Less, C-Arm < 1 Hour INDICATION: Reason: ACDF 2 Level (C5-C7) COMPARISONS: None TECHNIQUE: Fluoroscopy support was provided. There was no radiologist in attendance. FLUOROSCOPY TIME: 10.8 seconds EXPOSURE: 4.07 mGy (reference air kerma) TECHNOLOGIST TIME: 55 minutes FINDINGS: 3 fluoroscopic images of the cervical spine in lateral projection obtained by the portable image intensifier in the operating room show evidence of moderate degenerative changes at C4-C5 and C5-C6. A metallic needle is pointing anteriorly at the C4-C5 disc. Final images show ACDF C5-C7 with interbody spacers. Please refer to the operative report for more details. IMPRESSION: See above. WSN: [id number] Ordering Physician: Quinn Mcgarry Dictated By: Christo Cool MD, V Dictated Date/Time: 03/20/24 5:04 pm Reviewed By: Christo Cool MD, V Signed By: Christo Cool MD, V Signed Date/Time: 03/20/24 5:04 pm Transcribed By: SHERON Transcribed Date/Time: 03/20/24 5:02 pm * Exam Date Time Procedure Performing Provider Status 03/14/24 12:38 AM MRI Cervical Spine W/O Contrast Kiana Contreras; John (Verified) Notes: (MRI Cervical Spine W/O Contrast) Reason For Exam: Pain/Trauma RESULT: MRI Cervical Spine W/O Contrast MRI Cervical Spine W/O Contrast Reason: Pain Trauma; Clinical Question(s): Other:; ?Cervical Myelopathy; Order Comment: Please see Reference Text for complete list of contraindications Other: TECHNIQUE: MRI of the cervical spine was performed without intravenous contrast utilizing sagittal T1, sagittal T2, sagittal STIR, axial gradient echo, and axial T2-weighted sequences. COMPARISON: MRI of 10/24/2014. FINDINGS: LOCALIZER: Additional entire spine T2 localizers were obtained. Sagittal T2-weighted localizer images include the cervical, thoracic, and lumbar spine. No axial images were obtained through the thoracic or lumbar spine, but the sagittal images do provide a limited survey examination. The thoracic alignment appears maintained. Vertebral body heights are preserved. There is a T2 hyperintense lesion in the T9 vertebral body which could represent an osseous hemangioma in the right clinical setting. However this is incompletely evaluated in the localizers. The canal is patent. There are multilevel disc bulges or herniations. The lumbar spine alignment is maintained with minimal anterolisthesis of L5 on S1. Vertebral body heights are preserved. There is a T2 hyperintense lesion in the L1 vertebral body could represent an osseous hemangioma in the right clinical setting. The lumbar canal is incompletely imaged in this localizer sequence. No mass is identified. There is no evidence of discitis or osteomyelitis. ALIGNMENT, VERTEBRAE, MARROW, AND DISCS: Alignment is normal. Vertebral body heights are preserved.There is no significant marrow signal abnormality. There is multilevel disc desiccation with disc bulges or herniations as described below level by level. POSTERIOR FOSSA AND CORD: The visualized brain has normal signal intensity. Within the confines of motion, no gross abnormalities seen in the cord which is significantly degraded by motion. PARASPINAL TISSUES: Soft tissues of the neck are unremarkable. Major cervical flow voids are present. The craniocervical junction and C1-C2 articulation are preserved. DETAILED FINDINGS BY LEVEL: C2-C3: No significant canal stenosis or neural foraminal narrowing. There is disc desiccation. C3-C4: Within the confines of motion, there is no canal stenosis. There is disc desiccation. There are uncovertebral and facet joint spurs resulting in severe right and moderate left foraminal stenosis, progressed since prior examination. This could be accentuated by motion. C4-C5: There is a moderate broad-based central disc protrusion flattening the ventral cord and resulting in moderate canal stenosis, progressed since prior examination. There are uncovertebral and facet joint spurs resulting in severe left and mild to moderate right foraminal stenosis, probably unchanged. C5-C6: There is a large moderate broad-based disc protrusion deforming the ventral cord and resulting in severe canal stenosis, probably progressed since prior examination. There are uncovertebral and facet joint spurs resulting in severe left and no significant right foraminal stenosis, unchanged. C6-C7: There is a mild disc bulge most pronounced to the left of the midline with posterior endplate spurs deforming the ventral cord without canal stenosis. There are uncovertebral and facet joint spurs resulting in severe left and mild right foraminal stenosis, progressed since prior examination. C7-T1: There is a mild disc bulge without significant canal stenosis. There might be mild bilateralforaminal stenosis in conjunction with uncovertebral and facet joint spurs. T1-T2: There is an new right paracentral disc extrusion extending superiorly and inferiorly deforming the ventral thecal sac without significant canal stenosis. There is facet joint arthropathy and posterior endplate spurs resulting in mild to moderate left and no significant right foraminal stenosis. IMPRESSION: Progressed degenerative changes of the cervical spine. Severe canal stenosis at C5-C6 and moderate canal stenosis at C4-C5 within the confines of motion. Incomplete evaluation of the cord due to motion, no gross abnormality. Correlation with patient's symptoms is recommended. Additional degenerative changes throughout the cervical spine as described level by level. Incompletely evaluated T9 and L1 T2 hyperintense lesions. These could represent hemangiomas. However comparison with prior imaging would be helpful. If this is not possible, consider follow-up in 12 months. WSN: [id number] Ordering Physician: Clark Cabrera Dictated By: Dixie Brewer MD Dictated Date/Time: 03/14/24 8:26 am Reviewed By: Dixie Brewer MD Signed By: Dixie Brewer MD Signed Date/Time: 03/14/24 8:26 am Transcribed By: SHERON Transcribed Date/Time: 03/14/24 8:15 am * Exam Date Time Procedure Performing Provider Status 03/12/24 9:[address] Head/Brain W/O Contrast Wilian Pierce; John (Verified) Notes: (CT Head/Brain W/O Contrast) Reason For Exam: Headache(s) RESULT: CT Head/Brain W/O Contrast CT Head/Brain W/O Contrast Reason: Headache(s); Clinical Question(s): Brain Stem Infarct; Order Comment:. TECHNIQUE: Noncontrast head CT using axial technique and reconstructed in axial, sagittal and coronal planes. Weight-based protocol using automatic tube modulation was used to optimize exposure parameters. CTDIvol Head: 48.20 mGy, DLP Head: 772 mGy*cm. COMPARISON: CT 03/12/2024, 02/18/2024 FINDINGS: BRAIN and EXTRA-AXIAL SPACES: Persistent mild edema in the right thalamocapsular region, at the site of the previously seen hematoma. No acute intraparenchymal hemorrhage. No midline shift or mass effect. Dutta-white matter differentiation is well preserved. No acute infarct. Negative insular ribbon and hyperdense vessel signs. Ventricles, sulci and basilar cisterns are normal. No subarachnoid hemorrhage, subdural or epidural collections. CALVARIUM, SKULL BASE AND SOFT TISSUES: No fractures or suspicious bony lesions. The paranasal sinuses and mastoid air cells are clear. Visualized orbits and globes are intact. The extracranial soft tissues are unremarkable. IMPRESSION: 1. Persistent mild right thalamocapsular edema at the site of the previous intraparenchymal hemorrhage. 2. No acute intracranial hemorrhage. 3. Previously seen hyperdensity in the rhianna is not reproduced on the current examination and was probably related to volume averaging. I have personally reviewed the images and I agree with this report. WSN: [id number] Ordering Physician: Cj Berman Dictated By: Aron Noyola MD Dictated Date/Time: 03/12/24 9:51 pm Reviewed By: Chris Ferro MD Signed By: Chris Ferro MD Signed Date/Time: 03/12/24 9:56 pm Transcribed By: SHERON Transcribed Date/Time: 03/12/24 9:46 pm * Exam Date Time Procedure Performing Provider Status 03/12/24 2:[address] Angio Neck Colon , Liana; Auth (Ve rified) Notes: (CT Angio Neck) Reason For Exam: Aneurysm, neck vessel(s);Other: RESULT: CT Angio Neck CT Angio Head, CT Angio Neck Reason: Other:; Neuro deficit, acute, stroke suspected; Clinical Question(s): Other:; Hematoma Aneurysm; Order Comment: / Other: TECHNIQUE: CT angiogram of the [...] exposure parameters. RADIATION DOSE PARAMETERS: CTDIvol Body: 17.77 mGy, DLP Body: 657 mGy*cm. CTDIvol Head: 45.50 mGy, DLP Head: 772 mGy*cm. COMPARISON: Noncontrast CT head performed concurrently. CTA of 02/03/2024. FINDINGS: CTA OF THE NECK: Arch: There is a three vessel aortic arch. There is mild atherosclerotic plaque of the aortic arch,but origins of the supra aortic vessels are patent. Right carotid system: The common carotid and cervical internal carotid arteries are patent. No stenosis (0%) by NASCET criteria. There is no dissection or aneurysm. Left carotid system: The common carotid and cervical internal carotid arteries are patent. There iscalcified atherosclerotic plaque at the carotid bifurcation, but no ICA stenosis (0%) by NASCET criteria. There is a mildly right-dominant vertebral artery system. Right vertebral: No significant stenosis. No evidence of dissection or aneurysm. Left vertebral: No significant stenosis. No evidence of dissection or aneurysm. Mild scattered atherosclerotic plaque is noted. Other: Soft tissues and bones: No evidence of lymphadenopathy or mass. The thyroid is unremarkable. Visualized lung apices are clear. Multilevel degenerative changes of the spine are noted, without acute osseous abnormality. CTA OF THE HEAD: Anterior circulation: Bilateral intracranial ICAs demonstrate atherosclerotic calcification, without stenosis. Bilateral DEMARCUS and MCA branches are patent. There is no significant stenosis, proximal cutoff, or vascular malformation. There is stable fusiform dilation of the junction of the left A1 andA2 segments measuring approximately 2 mm. Posterior circulation: Bilateral intracranial vertebral arteries, the basilar artery, and bilateralsuperior cerebellar and posterior cerebral branches are patent. There is no significant stenosis, proximal cutoff, aneurysm, or vascular malformation. Mild atherosclerotic plaque of the right mid V4 segment is noted. Veins: Major dural venous sinuses are patent. Other: Soft tissues and bones: No midline shift or effacement of the basal cisterns. No space-occupying hemorrhage. No territorial loss of dutta-white matter differentiation. Noted that on concurrent CT noncontrast, there is a rounded hyperdensity in the central rhianna only seen in one thin slice not seen onthe sagittal or coronal reconstructions and at the level of the most superior aspect of streak artifact. This is most likely artifactual. Orbits are unremarkable. No significant opacification in the paranasal sinuses or mastoid air cells. IMPRESSION: No proximal occlusion or high grade stenosis in the major arteries of the head and neck. Stable fusiform dilation of the left A1/A2 segments, 2 mm aneurysm cannot be excluded. Likely artifactual hyperdensity in the central rhianna seen on noncontrast CT. Repeat CT noncontrast in 12-24 hours recommended to document resolution and exclude a tiny hemorrhagic focus. WSN: [id number] Ordering Physician: Cj Berman Dictated By: Dixie Brewer MD Dictated Date/Time: 03/12/24 3:11 pm Reviewed By: Dixie Brewer MD Signed By: Dixie Brewer MD Signed Date/Time: 03/12/24 3:11 pm Transcribed By: SHERON Transcribed Date/Time: 03/12/24 2:47 pm * Exam Date Time Procedure Performing Provider Status 03/12/24 2:[address] Angio Head Colon , Liana; Auth (Ve rified) Notes: (CT Angio Head) Reason For Exam: Neuro deficit, acute, stroke suspected;Other: RESULT: CT Angio Head CT Angio Head, CT Angio Neck Reason: Other:; Neuro deficit, acute, stroke suspected; Clinical Question(s): Other:; Hematoma Aneurysm; Order Comment: / Other: TECHNIQUE: CT angiogram of the [...] exposure parameters. RADIATION DOSE PARAMETERS: CTDIvol Body: 17.77 mGy, DLP Body: 657 mGy*cm. CTDIvol Head: 45.50 mGy, DLP Head: 772 mGy*cm. COMPARISON: Noncontrast CT head performed concurrently. CTA of 02/03/2024. FINDINGS: CTA OF THE NECK: Arch: There is a three vessel aortic arch. There is mild atherosclerotic plaque of the aortic arch,but origins of the supra aortic vessels are patent. Right carotid system: The common carotid and cervical internal carotid arteries are patent. No stenosis (0%) by NASCET criteria. There is no dissection or aneurysm. Left carotid system: The common carotid and cervical internal carotid arteries are patent. There iscalcified atherosclerotic plaque at the carotid bifurcation, but no ICA stenosis (0%) by NASCET criteria. There is a mildly right-dominant vertebral artery system. Right vertebral: No significant stenosis. No evidence of dissection or aneurysm. Left vertebral: No significant stenosis. No evidence of dissection or aneurysm. Mild scattered atherosclerotic plaque is noted. Other: Soft tissues and bones: No evidence of lymphadenopathy or mass. The thyroid is unremarkable. Visualized lung apices are clear. Multilevel degenerative changes of the spine are noted, without acute osseous abnormality. CTA OF THE HEAD: Anterior circulation: Bilateral intracranial ICAs demonstrate atherosclerotic calcification, without stenosis. Bilateral DEMARCUS and MCA branches are patent. There is no significant stenosis, proximal cutoff, or vascular malformation. There is stable fusiform dilation of the junction of the left A1 andA2 segments measuring approximately 2 mm. Posterior circulation: Bilateral intracranial vertebral arteries, the basilar artery, and bilateralsuperior cerebellar and posterior cerebral branches are patent. There is no significant stenosis, proximal cutoff, aneurysm, or vascular malformation. Mild atherosclerotic plaque of the right mid V4 segment is noted. Veins: Major dural venous sinuses are patent. Other: Soft tissues and bones: No midline shift or effacement of the basal cisterns. No space-occupying hemorrhage. No territorial loss of dutta-white matter differentiation. Noted that on concurrent CT noncontrast, there is a rounded hyperdensity in the central rhianna only seen in one thin slice not seen onthe sagittal or coronal reconstructions and at the level of the most superior aspect of streak artifact. This is most likely artifactual. Orbits are unremarkable. No significant opacification in the paranasal sinuses or mastoid air cells. IMPRESSION: No proximal occlusion or high grade stenosis in the major arteries of the head and neck. Stable fusiform dilation of the left A1/A2 segments, 2 mm aneurysm cannot be excluded. Likely artifactual hyperdensity in the central rhianna seen on noncontrast CT. Repeat CT noncontrast in 12-24 hours recommended to document resolution and exclude a tiny hemorrhagic focus. WSN: [id number] Ordering Physician: Cj Berman Dictated By: Dixie Brewer MD Dictated Date/Time: 03/12/24 3:11 pm Reviewed By: Dixie Brewer MD Signed By: Dixie Brewre MD Signed Date/Time: 03/12/24 3:11 pm Transcribed By: SHERON Transcribed Date/Time: 03/12/24 2:47 pm * Exam Date Time Procedure Performing Provider Status 03/12/24 2:[address] Head/Brain W/O Contrast Colon , Selene paresh; Auth (Verified) Notes: (CT Head/Brain W/O Contrast) Reason For Exam: Neuro deficit, acute, stroke suspected;Other: RESULT: CT Head/Brain W/O Contrast CT Head/Brain W/O Contrast INDICATION: Reason: Other:; Neuro deficit, acute, stroke suspected; Clinical Question(s): Other:; Hematoma Infarction TECHNIQUE: Noncontrast head CT using axial technique and reconstructed in axial and coronal planes.Iterative reconstruction techniques are used to optimize dose and image quality. CTDIvol Body: 17.77 mGy, DLP Body: 657 mGy*cm. CTDIvol Head: 45.50 mGy, DLP Head: 772 mGy*cm. COMPARISON: None. FINDINGS: Plant Tour Guide view findings, lines and tubes: None. BRAIN AND EXTRA-AXIAL SPACES: No parenchymal hemorrhage, midline shift, or mass effect. Dutta-white matter differentiation is wellpreserved. No acute infarct. Hypodensity is seen in the right thalamus and internal capsule at siteof prior hemorrhagic infarct. There is no associated significant mass effect or acute hemorrhage. Ventricles, sulci, and basilar cisterns are normal. No white matter lesions. No subarachnoid hemorrhage. No subdural or epidural collection. CALVARIUM, SKULL BASE, AND SOFT TISSUES: No fractures or suspicious bony lesions. The paranasal sinuses and mastoid air cells are clear. Visualized orbits and globes are intact. The extracranial soft tissues are unremarkable. IMPRESSION: There is a 0.5 cm hyperdense focus in the rhianna seen only on a single image without associated edemaor mass effect and no corresponding abnormality on the CT angiogram of the head (case was reviewed with Dr. Brewer of neuroradiology). This is most likely is artifactual. However given the patient's history of stroke and new symptoms I recommend repeat head CT an 12-24 hours to ensure no interval change. Subacute/chronic changes associated with prior right thalamic/internal capsule infarct. Findings and recommendations were discussed with Dr. Berman on 03/12/2024 at 3:00 PM. WSN: [id number] Ordering Physician: Cj Berman Dictated By: Aliza Tellez MD Dictated Date/Time: 03/12/24 3:02 pm Reviewed By: Aliza Tellez MD Signed By: Aliza Tellez MD Signed Date/Time: 03/12/24 3:02 pm Transcribed By: SHERON Transcribed Date/Time: 03/12/24 2:45 pm Vital Signs Most recent to oldest [Reference Range]: 1 2 3 Height 160 cm (03/23/24 11:32 AM) 160 cm (03/23/24 7:30 AM) 160 cm (03/22/24 3:26 AM) Weight 85.2 kg (03/20/24 8:25 PM) 85.2 kg (03/20/24 3:04 PM) 85.2 kg (03/12/24 11:06 PM) Oxygen Saturation [94-100 %] 95 % (03/23/24 11:32 AM) 95 % (03/23/24 7:30 AM) 96 % (03/23/24 3:00 AM) Pulse Rate [55-90 bpm] 52 bpm *L* (5/16/24 11:32 AM) 54 bpm *L* (03/23/24 7:30 AM) 47 bpm *L* (03/23/24 3:00 AM) Body Mass Index [18.5-24.99 kg/m2] 33.28 kg/m2 *>HHI* (03/20/24 8:25 PM) 33.28 kg/m2 *>HHI* (03/20/24 3:04 PM) 33.28 kg/m2 *>HHI* (03/12/24 11:06 PM) Blood Pressure [90-138/55-84 mm Hg] 137/62mm Hg (03/23/24 11:32 AM) 139/79mm Hg *H* (03/23/24 7:30 AM) 102/64mm Hg (03/23/24 3:00 AM) Respiratory Rate [16-30 br/min] 16 br/min (03/23/24 12:37 PM) 16 br/min (03/23/24 11:32 AM) 16 br/min (03/23/24 8:52 AM) Temperature [96.8-100.4 DegF] 97.7 DegF (03/23/24 11:32 AM) 97.8 DegF (03/23/24 7:30 AM) 97.4 DegF (03/23/24 3:00 AM) Liters per Minute 2 L/min (03/20/24 11:32 PM) 2 L/min (03/20/24 10:00 PM) 2 L/min (03/20/24 8:25 PM) Mode of Delivery (Oxygen) Room air (03/23/24 11:32 AM) Room air (03/23/24 7:30 AM) Room air (03/23/24 3:00 AM) Blood pressure sites Arm, left (03/23/24 11:32 AM) Arm, right (03/23/24 7:30 AM) Arm, right (03/23/24 3:00 AM) Temperature Route Oral (03/23/24 11:32 AM) Oral (03/23/24 7:30 AM) Oral (03/23/24 3:00 AM) Dry Weight 85.2 kg (03/20/24 8:25 PM) 85.2 kg (03/12/24 11:06 PM) Weight Obtained Via Bed scale (03/12/24 11:06 PM) Dry Weight Obtained Via Bed scale (03/12/24 11:06 PM) Social History Social History Type Response [...] Unknown 01/16/27 Unknown Unknown Active Unk nown Consult note * Jenae Hernandez: MODIFY, PERFORM Event Display: Consultation Note Authored Date: [id number] Patient: ??RITO VERDE ? Age:??58 Years?Sex:??Female?:??1965?? Chief Complaint/Reason for Consult Reason for consult: SI consult requested by: Clark Cabrera MD History of Present Illness This is a 58 year-old female with a PMH including CVA and recent history of right basal ganglia hemorrhagic stroke (02/03/24)??who returned to [facility] ED and was readmitted??with headaches and neck pain. She admits to having left- sided upper and lower extremity weakness with diffuse left upper extremity pain with associated numbness, and to a lesser degree affecting the left lower extremity as well. However, she states that these symptoms are not new and have been ongoing since the time of her stroke one month ago. She denies any pain, paresthesias, numbness or weakness affecting her right upper or right lower extremities. For the past month, she has been having trouble ambulating, requiring walker and staff assistance. Additionally, she has been having trouble using her hands for tasks that require dexterity. She denies any bowel movement dysfunction and denies saddle anesthesias, but does endorse urinary retention requiring straight catheterization for the past two years, though shedoes not know the reason for this. Due to the difficulty she has been having with using her hands, she has been unable to straight catheterize herself and a Covarrubias catheter has been placed. During this admission the patient was also found to have UTI and ANISA which is currently being treated. Due to neck pain and weakness,??MRI cervical spine was obtained which was slightly motion degraded but did reveal cervical stenosis, prompting request for neurosurgical consultation. Review of Systems Negative except as noted in HPI. Physical Exam Vitals & Measurements T:??97.8?F?? HR:??66??(Monitored)?? RR:??14?? BP:??124/86?? SpO2:??93%?? HT:??160??cm?? WT:??85.2??kg?? BMI:??33.28? General: Awake alert and NAD HEENT: NC/AT, trachea midline Respiratory: Normal I&E, no acute respiratory distress.? Neurologic:?? Mental status: Awake, alert & oriented to person, place, and time Speech: clear, fluent and appropriate?? Follows simple and complex commands ?? Motor:?? Normal bulk and tone ?? Upper extremities: ? R ? L?? Deltoid 4+/5?4-/5 *pain limited (left shoulder pain) Biceps?4+/5?4+/5 Triceps?4+/5?4+/5 Wrist extension?4-5?4/5 Finger rock loader?4/5?4/5 ?? Lower extremities: R?L IP?4/5? 45 Quads?4/5?4/5 Tibialis anterior?5/5?5/5 EHL?5/5?5/5 Gastroc/ Soleus?5/5?5/5 ?? Sensation??difficult to assess sensation-patient is a poor historian but seems to have diffuse decreased sensation throughout entire left upper extremity. Intact sensation to gentle catheter tug ?? Reflexes: ?Positive Turner's reflex bilaterally ?Positive ankle clonus L>R ?? Assessment/Plan This is a 58 year-old female with a PMH including CVA and recent history of right basal ganglia hemorrhagic stroke (02/03/24)??who returned to [facility] ED with headaches and neck pain. She admits to having left-sided upper and lower extremity weakness with diffuse left upper extremity pain with associated numbness, and to a lesser degree affecting the left lower extremity as well. However, she states that these symptoms are not new and have been ongoing since the time of her stroke one month ago. MRI cervical spine was obtained which was slightly motion degraded but did reveal cervical centralstenosis at C5-C6 causing cord compression, and left foraminal stenosis at??C6-C7. ?? During this admission the patient was also found to have UTI and ANISA which is currently being treated. ?? On exam, the patient was found to have myelopathic reflexes (+Turner's and clonus). ?? Given cervical stenosis any myelopathic findings on exam, surgical intervention was recommended to prevent further damage to the spinal cord and prevent further neurologic worsening. It was discussed that any deficits related to cervical cord compression may not be reversible and that the goal of the surgery would be to prevent worsening. She may see improvement in symptoms in left upper extremity as it relates to the left C6-C7 foraminal stenosis. The patient called her son Ran so that he could listen in on conversation regarding the findings of cervical spine MRI and discussion of surgery for it. The indication for surgery, alternative to surgery/ natural history of further progression of neurologic decline if surgery is not pursued, as well as risks and benefits of surgery were discussed. All of the patient's questions and her son's questions were answered to their satisfaction. The patient elected to proceed with surgery. Surgical consent was signed by the patient. ?? Recommendations: ACDF??C5-C7 recommended for decompression of spinal cord??at C5-C6 and left??nerve root in the foramen at C6-C7. Consent in neurosurgery PA office. Surgery tentatively next week, scheduling pending. Active medical issues, UTI and ANISA, would need to be treated??prior to??surgery. Patient needs to be optimized and medically cleared for surgery by primary team. Patient needs to be off of antiplatelets (aspirin 81mg) x7 days prior to surgery.?? q4h neuro checks[place]?? [place] [phone] for any questions or if exam changes. ?Case and plan of care discussed with??on-call attending neurosurgeon, Dr. Mcgarry Total Time Spent I personally spent a total of??50 minutes, including both khhp-ge-cydx and ioo-bmap-mn-face time onthe date of the encounter, addressing the above diagnoses. Activities performed in this time include chart review, obtaining / reviewing history, performing amedically necessary evaluation, documentation and Review of tests performed by other providers including medical decision making of Moderate Complexity (45-59 minutes for NEW patient) Problem List/Past Medical History Ongoing Anxiety [...] Albuterol: 2 puffs, Inhalation, Every 4 hours Aripiprazole: 10 mg = 1 tablet, By Mouth, Daily Ascorbic Acid: 500 mg = 1 tablet, By Mouth, Daily Aspirin: TAKE ONE TABLET BY MOUTH EVERY DAY Atorvastatin: 20 mg = 1 tablet, By Mouth, Daily Cetirizine: TAKE ONE TABLET BY MOUTH EVERY DAY Famotidine: 40 mg = 2 tablet, By Mouth, Daily Gabapentin: 600 mg = 1 tablet, By Mouth, 3 times a day Hydrochlorothiazide: TAKE ONE TABLET BY MOUTH EVERY MORNING HydrOXYzine: 50 mg = 1 capsule, By Mouth, 2 times a day, PRN (as needed for anxiety) Lidocaine Topical: 1 patch, Topically, Daily, LEAVE ON FOR 12 HOURS, THEN OFF FOR 12 HOURS DIRECTED. Lisinopril: TAKE ONE TABLET EVERY MORNING Venlafaxine: 75 mg = 1 capsule, By Mouth, Daily Allergies NKA Social History Alcohol Use: Current. Electronic Cigarette/Vaping Electronic Cigarette Use: Never. Substance Abuse Use: Past. Tobacco Use: Never (less than 100 in lifetime). Family History Mother: CAD - Coronary artery disease; Diabetes mellitus type II; Hypertension; Thyroid disease Father: CAD - Coronary artery disease; Diabetes mellitus type II Radiology MRI cervical spine 03/14/2024 RADIOLOGY READ/ IMPRESSION: ?? Progressed degenerative changes of the cervical spine. Severe canal stenosis at C5-C6 and moderate canal stenosis at C4-C5 within the confines of motion. Incomplete evaluation of the cord due to motion, no gross abnormality. Correlation with patient's symptoms is recommended. ?? Additional degenerative changes throughout the cervical spine as described level by level. ?? * Carmel VIERA, Melania Leavitt: PERFORM Event Display: Consult Authored Date: Patient: ??RITO VERDE ? Age:??58 Years?Sex:??Female?:??1965?? Chief Complaint Reason for consult: SI consult requested by: Clark Cabrera MD History of Present Illness Rito Verde is a 58-year-old female with PMH significant for anxiety, HTN, HLD, migraines, marijuana use, and CVA??(recent right [facility]) who presented with headache as was admitted for significant hypertension and neuro monitoring. She screened in positive on [employer] Suicide Screen. ?? Patient says she has had thoughts of suicide in the past but has never had a plan??and has neverhad intent.?? She says she would never kill herself because??she loves herself and wants to be around for her family.?? She denies any recent thoughts of suicide.?? She??says that it has been hard??grappling with the loss of her independence following the stroke??but that she is working hard to getit back.?? She has hope that she will.?? She denies any history of psychiatric illness??(though per??chart has had anxiety in the past)??and states she has never seen a psychiatrist or therapist.?? She denies any??depressed mood,??psychotic symptoms,??or??history of marcio.?? She denies that she has any??needs??for psychiatry at this time. Review of Systems All systems reviewed and negative except as noted in HPI. Mental Status Vitals & Measurements T:??97.2?F?? TMIN:??97.2?F?? TMAX:??98.0?F?? HR:??61??(Monitored)?? RR:??3?? BP:??108/76??SpO2:??93%?? WT:??85.2??kg?? Mental Status Examination Appearance: intact grooming, sitting up in bed Attitude toward examiner:??Cooperative Activity:??slowed Mood:? I don't like that I've lost my independence Affect:??sleepy Speech:??soft, regular rate Language:??fluent Thought Process:??linear, goal-directed Thought Content:??no delusional content ?Suicidal Ideation:??No SI Perceptions:??No A/V H Cognition: ?Alert ?Oriented to??person, place, time, and situation ?Memory:??intact to recent events ?Concentration:??intact to conversation ?? Insight:??fair Judgement:??fair ?? Neurological Examination Cranial Nerves: EOMI, face symmetric, mild dysarthria and hypophonia Motor: moves UEs antigravity ? Juab Suicide Score Juab Suicide Assessment Ca (03/12/24) Suicidal Intent No Plan Past Month-CSSRS: Yes (02/28/24) Suicidal Thoughts Method Past Mon-CSSRS: Yes (02/28/24) Suicidal Thoughts Past Month - CSSRS: No (03/12/24) Suicide Behavior Lifetime - CSSRS: No (03/12/24) Suicide Intent w/Plan Past Month - CSSRS: Yes (02/28/24) Wish to be Past Month - CSSRS: Yes (03/12/24) Assessment/Plan 58 y/o F w/hx of migraines, HTN, and recent stroke who screen positive on Juab scale. ??Patientdenies SI at this time??and denies any??history of??suicide attempts??or even suicidal intent.?? She also denies history of psychiatric illness though per chart review??has??reportedly struggled with depression and anxiety in the past.?? She feels??down about her??stroke??and subsequent??disability??but??says she is working hard to get her functioning back and has hope for the future. ??There areno acute psychiatric symptoms or concerns at this time. ?? Diagnosis: psychological factors affecting medical condition ?? Recommendations: -d/c 1:1 and suicide precuations -no psychiatric contraindication to discharge ?? Recomendations sent to Dr. Cabrera via [phone]. ?? Melania Burt MD Attending, Psychiatry Consultation Service [facility] ? Problem List/Past Medical History Ongoing Anxiety Cerebrovascular disease Gastroesophageal reflux disease Heart disease Hyperlipidemia Hypertensive disorder Migraines Obese class I Procedure/Surgical History ? ?D&C, right salpingo-oophorectomy (09/05/2013)? ? section - at term (1999)? ?Salpingectomy, complete or partial, unilateral or bilateral (separate procedure) (1999)???Cesareansection - at term (1994)??? section - at term (1992)???hand surgery Medications Inpatient Acetaminophen Tablet, 650 mg, By Mouth, Every 4 hours, PRN albuterol CFC free 90 mcg/inh inhalation aerosol, 180 mcg= 2 puffs, Inhalation, Every 4 hours, PRN ARIPiprazole 10 mg oral tablet, 10 mg, By Mouth, Daily aspirin 81 mg oral delayed release tablet, 81 mg, By Mouth, Daily atorvastatin 20 mg oral tablet, 20 mg, By Mouth, Daily Dilaudid Inj, 0.5 mg= 0.5 mL, IV Push Slowly, Every 4 hours, PRN Docusate Sodium Capsule, 100 mg= 1 capsule, By Mouth, 2 times a day, PRN famotidine 20 mg oral tablet, 40 mg, By Mouth, Daily gabapentin 300 mg oral capsule, 600 mg, By Mouth, 3 times a day hydrOXYzine pamoate 25 mg oral capsule, 50 mg, By Mouth, 2 times a day, PRN lisinopril 20 mg oral tablet, 40 mg, By Mouth, Daily MiraLax Powder, 17 Gm= 1 pack/packet, By Mouth, Daily, PRN NaCL 0.9% Flush, 3 mL, IV Push, Every 8 hours NaCL 0.9% Flush, 3 mL, IV Push, Every 8 hours, PRN Ondansetron Inj, 4 mg, IV Push, Every 6 hours, PRN oxyCODONE 5 mg oral tablet, 5 mg, By Mouth, Every 6 hours, PRN Senna Tablet, 8.6 mg= 1 tablet, By Mouth, 2 times a day, PRN Simethicone Tablet, 80 mg, Chew, 3 times a day, PRN venlafaxine 37.5 mg oral capsule, extended release, 75 mg, By Mouth, Daily Home acetaminophen 650 mg oral tablet, extended release, 650 mg= 1 tablet, By Mouth, 2 times a day ARIPiprazole 10 mg oral tablet, 10 mg= 1 tablet, By Mouth, Daily Aspirin Enteric Coated 81 mg oral delayed release tablet atorvastatin 20 mg oral tablet, 20 mg= 1 tablet, By Mouth, Daily cetirizine 10 mg oral tablet famotidine 20 mg oral tablet, 40 mg= 2 tablet, By Mouth, Daily Fioricet Tablet, 2 tablet, By Mouth, Every 4 hours gabapentin 600 mg oral tablet, 600 mg= 1 tablet, By Mouth, 3 times a day hydrochlorothiazide 25 mg oral tablet hydrOXYzine pamoate 50 mg oral capsule, 50 mg= 1 capsule, By Mouth, 2 times a day, PRN Lidoderm 5% film, 1 patch, Topically, Daily lisinopril 40 mg oral tablet Proventil HFA 90 mcg/inh inhalation aerosol with adapter, 2 puffs, Inhalation, Every 4 hours venlafaxine 75 mg oral capsule, extended release, 75 mg= 1 capsule, By Mouth, Daily Vitamin C 500 mg oral tablet, 500 mg= 1 tablet, By Mouth, Daily Allergies NKA Social History Alcohol Use: Current. Electronic Cigarette/Vaping Electronic Cigarette Use: Never. Substance Abuse Use: Past. Tobacco Use: Never (less than 100 in lifetime). Past Psychiatric History: Diagnoses: unspecified anxiety, per chart has hx of depression though pnt denies Hospitalizations: denies Suicide attempts: denies Medication trials: aripiprazole (unclear indication; patient not sure); has also been on paroxetine, alprazolam in the past per chart review Providers: PCP is Aliza Paul, DO Family History CAD - Coronary artery disease: Mother and Father. Diabetes mellitus type II: Mother and Father. Hypertension: Mother. Thyroid disease: Mother. Immunizations Vaccine Date Status SARS-CoV-2 mRNA ([id number]) vax 10/17/2022 Given Rabies vaccine,purified chick embryo 09/06/2022 Recorded tetanus/diphtheria/pertussis, acel(Tdap) 09/06/2022 Recorded pneumococcal 23-valent vaccine 12/16/2021 Recorded tetanus/diphtheria/pertussis, acel(Tdap) 12/16/2021 Recorded influenza virus vaccine, inactivated 09/23/2017 Recorded influenza virus vaccine, inactivated 08/16/2014 Recorded Lab Results Event Name?? Event Result?? Normal Range?? Date/Time?? WBC 7.9 k/mm3 4 k/mm3 - 11 k/mm3 03/13/24 03:22:00 RBC 4.95 m/mm3 4.2 m/mm3 - 5.4 m/mm3 03/13/24 03:22:00 Hgb 14.3 Gm/dL 11.7 Gm/dL - 15.5 Gm/dL 03/13/24 03:22:00 Hct 43.2 % 35.7 % - 45.8 % 03/13/24 03:22:00 MCV 87.3 femtoliters 80 femtoliters - 100 femtoliters 03/13/24 03:22:00 MCH 28.9 pg 27 pg - 34 pg 03/13/24 03:22:00 MCHC 33.1 g/dL 33 g/dL - 37 g/dL 03/13/24 03:22:00 Platelet Count 301 k/mm3 150 k/mm3 - 460 k/mm3 03/13/24 03:22:00 RDW-SD 41.1 femtoliters ?? 03/13/24 03:22:00 MPV 9.2 femtoliters??Low 9.4 femtoliters - 12.4 femtoliters 03/13/24 03:22:00 Nucleated RBC (Automated) 0 #/100 WBC'S ?? 03/13/24 03:22:00 Abs. NRBC 0 k/mm3 ?? 03/13/24 03:22:00 Sodium 143 mmol/L 133 mmol/L - 145 mmol/L 03/13/24 03:22:00 Potassium 3.9 mmol/L 3.6 mmol/L - 5.2 mmol/L 03/13/24 03:22:00 Chloride 103 mmol/L 98 mmol/L - 107 mmol/L 03/13/24 03:22:00 Bicarbonate Level 28 mmol/L 22 mmol/L - 29 mmol/L 03/13/24 03:22:00 Anion Gap 12 4 ??- 17 03/13/24 03:22:00 Glucose Level 106 mg/dL??High 70 mg/dL - 99 mg/dL 03/13/24 03:22:00 Glucose, POC 106 mg/dL??High 70 mg/dL - 99 mg/dL 03/12/24 23:35:00 BUN 9 mg/dL 6 mg/dL - 20 mg/dL 03/13/24 03:22:00 Creatinine-Blood 0.7 mg/dL 0.5 mg/dL - 1 mg/dL 03/13/24 03:22:00 Estimated GFR Creatinine 102 ML/MIN/1.73 M2 ?? 03/13/24 03:22:00 Calcium 9.8 mg/dL 8.6 mg/dL - 10.5 mg/dL 03/13/24 03:22:00 COVID-19 PCR Specimen Source NASAL ?? 03/12/24 21:47:00 COVID-19 PCR Result NEGATIVE ?? 03/12/24 21:47:00 Est Creatinine Clearance 72.44 mL/min ?? 03/13/24 04:52:34 Est Creatinine Clearance 63.39 mL/min ?? 03/12/24 23:10:48 ? * Jorge L VIERA, Francisco Phillips: PERFORM Event Display: Consultation Note Authored Date: Patient: ??RITO VERDE ? Age:??58 Years?Sex:??Female?:??1965?? Chief Complaint/Reason for Consult Reason for consult: SI consult requested by: Clark Cabrera MD History of Present Illness 58yo F with h/o recent right basal ganglia IPH previously known to our services, migraines, urinaryretention presented to the ED with severe flare up of migraines. CT head showed the previous IPH was resolving but a new lesion was seen in the rhianna. CT head was repeated which showed resolution of the lesion and was likely attributed to artifact. Pt is a poor historian but states she went home from [facility] after her last admission and was mostly WC bound except required some assistance with transfers. She states she has two homeless people living with her that assist with mobility and ADLs. She has adult son that lives locally. She has chronic urinary retention and was previously doing in/out cath before her stroke but since then has had covarrubias placement. Etiology of the retention is unknown but she states it was evaluated by urology in the past.??She denies any difficulty swallowing. Extensive chart review: patient had CT C spine in 2021 which showed cervical stenosis at C5-6. Review of Systems 14 point review of systems negative except as noted above in HPI. Physical Exam Vitals & Measurements T:??97.2?F?? HR:??61??(Monitored)?? RR:??15?? BP:??108/76?? SpO2:??93%?? HT:??160??cm?? WT:??85.2??kg?? BMI:??33.28?? Gen: drowsy but arousable, oriented x 3. Flat affect HEENT: tracking bilat, PERRL CV: Reg, no murmurs Chest: CTA bilat Abd: +BS, soft, NT Exts: trace pedal edema Neuro: CN II-XII intact except mild left droop MMT: RUE and RLE: 5/5 LUE: 4/5; LLE: prox 3/5, distal 4/5 Turner's pos bilat Babinski equivocal Sensory: no extinction DTRs: biceps and patella 2+, no clonus, normal tone. ?? Speech/Language: abulic, no dysarthria, fluent but with delay. Swallow: intact with thin liquids Assessment/Plan 58yo F with h/o HTN,??migraines, chronic??urinary retention, known to our service from right BG hemorrhage in January went to [facility] for rehab. Pt now back home and from her??description, has had difficulty functioning. Incidental finding of Cervical stenosis on CT C spine 2021. Was ambulating min assist at transfer to [facility] and, from what she is describing, is now WC bound. Pt had SI this admission and psychiatry evaluated. Seen with Fanny. ? Recommendations: ?? Activity:[Mobilize with PT]?? Bowel Regimen: [Monitor on current regimen]?? Bladder:??Covarrubias for chronic urinary retention. Bilat turner's seen on exam. Pt likely has cervicalmyelopathy--recommend MRI C spine to evaluate. Texted with Dr. Cabrera. Cognition/psychopharmacology: ??[Avoid benzos, anticholinergics and antihistaminergics because of age].?? DVT prophylaxis: Recommend Lovenox or sub Q heparin unless contraindicated. ?? Neurology: [Appreciate Neurology Note]. Pain Management: [Agree with current regimen].?? Spasticity:??[None] ?? Swallow: not an issue ?? Current rehab treatment & further recommendations: Occupational Therapy:??[Ordered]. Physical Therapy:[Ordered] Speech Therapy:??Not needed. ?? Disposition: Probably will need another stay in rehab. social services counselor should evaluate. ?? Code Status:??Full Resuscitation HCP:[Has??HCP??in [facility]] ?? Problem List/Past Medical History Ongoing Anxiety Cerebrovascular [...] Albuterol: 2 puffs, Inhalation, Every 4 hours Aripiprazole: 10 mg = 1 tablet, By Mouth, Daily Ascorbic Acid: 500 mg = 1 tablet, By Mouth, Daily Aspirin: TAKE ONE TABLET BY MOUTH EVERY DAY Atorvastatin: 20 mg = 1 tablet, By Mouth, Daily Cetirizine: TAKE ONE TABLET BY MOUTH EVERY DAY Famotidine: 40 mg = 2 tablet, By Mouth, Daily Gabapentin: 600 mg = 1 tablet, By Mouth, 3 times a day Hydrochlorothiazide: TAKE ONE TABLET BY MOUTH EVERY MORNING HydrOXYzine: 50 mg = 1 capsule, By Mouth, 2 times a day, PRN (as needed for anxiety) Lidocaine Topical: 1 patch, Topically, Daily, LEAVE ON FOR 12 HOURS, THEN OFF FOR 12 HOURS DIRECTED. Lisinopril: TAKE ONE TABLET EVERY MORNING Venlafaxine: 75 mg = 1 capsule, By Mouth, Daily Hospital Medications Medications (20) Active SCHEDULED: (8) Aripiprazole 10mg Tablet (ARIPiprazole 10 mg oral tablet) ??10 mg, By Mouth, Daily Aspirin 81 mg EC Tablet (aspirin 81 mg oral delayed release tablet) ??81 mg, By Mouth, Daily Atorvastatin 20 mg Tablet (atorvastatin 20 mg oral tablet) ??20 mg, By Mouth, Daily Famotidine 20 mg Tablet (famotidine 20 mg oral tablet) ??40 mg, By Mouth, Daily Gabapentin 300 mg Capsule (gabapentin 300 mg oral capsule) ??600 mg, By Mouth, 3 times a day Lisinopril 20 mg Tablet (lisinopril 20 mg oral tablet) ??40 mg, By Mouth, Daily NaCl 0.9% Flush 3ml (NaCL 0.9% Flush) ??3 mL, IV Push, Every 8 hours Venlafaxine 37.5 mg XR Capsule (venlafaxine 37.5 mg oral capsule, extended release) ??75 mg, By Mouth, Daily CONTINUOUS: (0) PRN: (12) Acetaminophen 325 mg Tablet (Acetaminophen Tablet) ??650 mg, By Mouth, Every 4 hours Acetaminophen/Butalbital/Caffeine Tablet (Fioricet Tablet) ??1 tablet, By Mouth, Every 8 hours Albuterol 90mcg/Inhalation Inhaler HFA (albuterol CFC free 90 mcg/inh inhalation aerosol) ??180 mcg2 puffs, Inhalation, Every 4 hours Docusate Sodium 100 mg Capsule (Docusate Sodium Capsule) ??100 mg 1 capsule, By Mouth, 2 times a day HYDROmorphone 0.5 mg/0.5 mL Inj Syringe (Dilaudid Inj) ??0.5 mg 0.5 mL, IV Push Slowly, Every 4 hours HydrOXYzine Pamoate 25mg Capsule (hydrOXYzine pamoate 25 mg oral capsule) ??50 mg, By Mouth, 2 times a day NaCl 0.9% Flush 3ml (NaCL 0.9% Flush) ??3 mL, IV Push, Every 8 hours Ondansetron 2mg/mL Inj (2mL Vial) (Ondansetron Inj) ??4 mg, IV Push, Every 6 hours OxyCODONE 5 mg IR Tablet (oxyCODONE 5 mg oral tablet) ??5 mg, By Mouth, Every 6 hours Polyethylene Glycol 17 Gm Powder (MiraLax Powder) ??17 Gm 1 pack/packet, By Mouth, Daily Senna Tablet ??8.6 mg 1 tablet, By Mouth, 2 times a day Simethicone 80 mg Chewable Tablet (Simethicone Tablet) ??80 mg, Chew, 3 times a day Lab Results PM&R Labs ?? Tox Screen?? WBC: 7.9 k/mm3 (03/13/24) Ethanol, Serum or Plasma: NONE DETECTED (02/28/24) Platelet Count: 301 k/mm3 (03/13/24) Barbiturate Screen, Urine: POSITIVE Abnormal (02/28/24) Sodium: 143 mmol/L (03/13/24) Cannabinoid Screen, Urine: NONE DETECTED (02/28/24) BUN: 9 mg/dL (03/13/24) Cocaine Metabolite Screen, Urine: NONE DETECTED (02/28/24) Creatinine-Blood: 0.7 mg/dL (03/13/24) Benzodiazepine Screen, Urine: NONE DETECTED (02/28/24) Ethanol, Serum or Plasma: NONE DETECTED (02/28/24) Amphetamine Screen, Urine: NONE DETECTED (02/28/24) Barbiturate Screen, Urine: POSITIVE Abnormal (02/28/24) Opiate Screen, Urine: NONE DETECTED (02/28/24) Cannabinoid Screen, Urine: NONE DETECTED (02/28/24) ?? Cocaine Metabolite Screen, Urine: NONE DETECTED (02/28/24) ?? Benzodiazepine Screen, Urine: NONE DETECTED (02/28/24) ?? Amphetamine Screen, Urine: NONE DETECTED (02/28/24) ?? Opiate Screen, Urine: NONE DETECTED (02/28/24) ?? AST (SGOT): 13 units/L (03/12/24 12:07:00) AST (SGOT): 17 units/L (02/03/24 18:49:00) ALT (SGPT): 15 units/L (03/12/24 12:07:00) * Mary VIERA, Cade: PERFORM, MODIFY Event Display: Consultation Note Authored Date: Patient: ??RITO VERDE ? Age:??58 Years?Sex:??Female?:??1965?? I was paged by Dr. Cj Berman from the ED about Rito Verde, who is well known to us, about an imaging finding in the upper rhianna. In brief, this is a 58-year-old female with PMH significant for anxiety, HTN, HLD, migraines, marijuana use, and CVA who presented??in January 2024 with??Left facial droop, left sided weakness, and slurred speech and SBP between 160-190. Difficulty controlling blood pressure. NIHSS of??[address] Head demonstrating approximately 3cc Right BG IPH with mild mass effect on 3rd ventricle and in the cerebral peduncle. CTA Head/Neck without LVO or high grade stenosis.?? THe hemorrhage did not show any enhancement on the MRI which was done to rule out any underlyingmass. ?? She now presented back to the ED due to difficulty with her Covarrubias catheter, but also because of mild headaches and high blood pressures. She told the ED staff that she was told not to take BP meds, which would not be correct. Due to the bleeding, she should not take any blood thinning medications and most likely no antiplatelets, but she was never told not to take any BP meds. ?? The hCT shows resolution of the hemorrhage area. However, a new finding popped up in the middle of the upper rhianna. It is a round hyperdense signal, looks like a vessel, but it seems to be in the tissue itself and is at the same level as the basilar artery. However, the CT slice is quite oblique Romeo am wondering if this roundish hyperdense lesion is an artifact or some projection from a different slice or partial voluming effects. The basilar artery seems to indent the rhianna quite a lot, but that is a few slices below where the round artifact can be seen. ?? I recommended to the ED to get her high blood pressure under better control. Considering her bleeding history, she should get down to a SBP of 140 or less. Hopefully this will improve her headaches as well. With regard to the round hyperdense artifact in the upper rhianna, I would recommend to repeat the hCT in about 6 hours and see if there is any progression. It is possible that the lesion might disappear if the imaging slice has a different angle. ?? If imaging is worse, then please consult us again. ?? Cade Hernandez MD, PhD ? Admission evaluation note * Kacie VIERA, Hannah: PERFORM, MODIFY Event Display: Admission Note Authored Date: Patient: ??RITO VERDE ? Age:??58 Years?Sex:??Female?:??1965?? Chief Complaint/Reason for Consultation Pt is coming from home c/o migraine headache since 8pm last night.Pt reports unable to get any sleep. Pt had a stroke ??1 month ??ago. Pt also reports that she needs social work consult. Pt is ??on Eliquis History of Present Illness This is a 58-year-old female with past medical history hypertension, hyperlipidemia, migraines, anxiety who is coming in today secondary to a headache. ?? Of note patient was recently admitted and subsequently discharged on 02/09 with a hemorrhagic stroke.?? She was found to have a acute intraparenchymal hemorrhage in the right basal ganglia, subsequently admitted in the ICU for further management.?? MRI confirmed acute intraparenchymal hemorrhage in the right thalamus and internal capsule with surrounding edema.?? Patient was managed with a nicardipine drip for uncontrolled blood pressures, eventually titrated off and transition to p.o. medications. She comes into the ED today secondary to Covarrubias catheter dysfunction along with ongoing headaches and high blood pressure. ?? On presentation to ED she was noted to be hypertensive to the 200s.?? Lab workup showing no acute abnormalities, no anemia has mild hyponatremia but otherwise stable kidney function.?? She underwent a stat CT head which shows resolution of prior hemorrhage however new possible area of hypodensity in the upper rhianna.?? Neuro was immediately consulted who evaluated the CT as well who said that she needs a repeat CT in 6 hours to make sure this is not an artifact based on the review of imaging.?? Strict control of blood pressure with SBP less than 140.??Repeat CT head done 6 hours later showedpersistent mild right thalamocapsular edema at the site of the previous intraparenchymal hemorrhage.?? No acute intra cranial hemorrhage.?? Previously seen hypodensity in the rhianna is not reproduced on the current examination and was probably related to volume averaging.?? Review of Systems Full review of systems conducted, negative unless mentioned in the HPI Objective Vital Signs?? Temperature: 98 DegF (03/13/24 00:00:00) Temperature Route: Oral (03/13/24 00:00:00) Pulse Rate: 70 bpm (03/12/24 23:06:00) Heart Rate Monitored: 65 bpm (03/13/24 00:00:00) Respiratory Rate: 21 br/min (03/13/24 00:00:00) Systolic Blood Pressure: 101 mm Hg (03/13/24 00:00:00) Diastolic Blood Pressure: 59 mm Hg (03/13/24 00:00:00) Blood pressure sites: Arm, right (03/13/24 00:00:00) Mean Arterial Pressure: 111 mm Hg (03/12/24 23:06:00) Pulse Pressure: 42 mm Hg (03/13/24 00:00:00) Oxygen Saturation:??91 %??Low (03/13/24 00:00:00) Mode of Delivery (Oxygen): Room air (03/13/24 00:00:00) Early Warning Score: 7 (03/13/24 00:38:35) ? Physical Exam General Appearance: no acute distress Eyes: LISET. No scleral icterus. ENT:?? MM moist. Cardiovascular: RRR S1 and S2 heard with no M/R/G. Respiratory: Clear to auscultation, no wheeze or crackles GI: Soft. Nontender and nondistended. Normal bowel sounds present. no guarding, rigidity MSK:?? No edema or erythema in the lower extremities. Skin: No rashes seen?? Neuro:?? No slurred speech. Moving upper and lower extremities independently Psych: oriented x3. Lines: Peripheral IV in place. Assessment/Plan This is a 58-year-old female with past medical history hypertension, hyperlipidemia, migraines, anxiety who is coming in today secondary to a headache, elevated blood pressure at home in the setting of not taking home BP medications.?? Initial CT concerning for a possible new bleed in the rhianna, neuro reviewed CT recommend repeating again??6 hours later.?? Repeat CT head did not show evidence of any acute bleed. ??Also??being managed for hypertensive emergency, currently on nicardipine drip ? Headache (R51.9):?? History of intracranial hemorrhage (Z86.79):?? Hypertensive emergency (I16.1):?? Coming in with headache, elevated blood pressure.?? Initial CT scan??with concerns of a new hypodensity in the rhianna raising concern for an acute bleed however neuro recommended repeating??repeat CT 6hours later with no evidence of acute Patient seen complaining of headache,??no focal deficits on exam ?? Plan ??? Continue nicardipine drip ??? Goal SBP of??less than 140 ?Every 2 neurochecks overnight ?Neurology following, appreciate recommendations ?Given no acute bleed on??head CT will resume her home aspirin from tomorrow ??? Hold home p.o. blood pressure medications. ? Urinary retention (R33.9):?? Covarrubias catheter present (Z97.8):?? Patient has a??history of urinary retention, has been??straight cathing for the last 2 years Was discharged with a urinary catheter last time and told to??will hold VTE, follow-up with urology ?? Plan ??? Continue Covarrubias catheter ? Mood disorder (F39):?? Continue aripiprazole Venlafaxine ?? Anxiety (F41.9):?? Continue hydroxyzine as needed for anxiety ? Quality Measures CODE: full DIET:cardiac DVT:?hold chemoprophylaxis for now,??talk to neuro before resuming ?? Hannah Hester [id number]. Histories Allergies Allergies ?(Active and Proposed Allergies [...] Atorvastatin (atorvastatin 20 mg oral tablet)?1?tab(s)?20?Milligram?By Mouth?Daily Cetirizine (cetirizine 10 mg oral tablet)?TAKE ONE [...] mg oral tablet)?TAKE ONE TABLET EVERY MORNING Venlafaxine (venlafaxine 75 mg oral capsule, extended release)?75?Milligram?1?capsule?By Mouth?Daily ? Results Recent Labs BACTERIOLOGY Urine Culture Results Final report (Abnormal)?? 03/09/2024 18:00 ?? BLOOD COUNT & DIFF WBC 6.1 k/mm3 ()?? 03/12/2024 12:07 RBC 4.73 m/mm3 ()?? 03/12/2024 12:07 Hgb 13.7 Gm/dL ()?? 03/12/2024 12:07 Hct 41.3 % ()?? 03/12/2024 12:07 MCV 87.3 femtoliters ()?? 03/12/2024 12:07 MCH 29.0 pg ()?? 03/12/2024 12:07 MCHC 33.2 g/dL ()?? 03/12/2024 12:07 Platelet Count 306 k/mm3 ()?? 03/12/2024 12:07 RDW-SD 40.9 femtoliters ()?? 03/12/2024 12:07 MPV 9.2 femtoliters (Low)?? 03/12/2024 12:07 Nucleated RBC (Automated) 0.0 #/100 WBC'S ()?? 03/12/2024 12:07 Abs. NRBC 0.0 k/mm3 ()?? 03/12/2024 12:07 Abs. Neut 3.3 k/mm3 ()?? 03/12/2024 12:07 Abs. Lymph 2.0 k/mm3 ()?? 03/12/2024 12:07 Abs. [place] 0.4 k/mm3 ()?? 03/12/2024 12:07 Abs. Eo 0.4 k/mm3 ()?? 03/12/2024 12:07 Abs. Baso 0.0 k/mm3 ()?? 03/12/2024 12:07 Neut % 53.6 % ()?? 03/12/2024 12:07 Lymph % 32.6 % ()?? 03/12/2024 12:07 [place] % 5.9 % ()?? 03/12/2024 12:07 Eos % 6.9 % (High)?? 03/12/2024 12:07 Baso % 0.7 % ()?? 03/12/2024 12:07 Imm Gran 0.3 % ()?? 03/12/2024 12:07 Abs. Imm Gran 0.0 k/mm3 ()?? 03/12/2024 12:07 ?? CARDIAC High Sensitivity Troponin (HSTnT) 8 ng/L ()?? 03/12/2024 12:07 ?? CHEM GENERAL Sodium 146 mmol/L (High)?? 03/12/2024 12:07 Potassium 4.7 mmol/L ()?? 03/12/2024 12:07 Chloride 109 mmol/L (High)?? 03/12/2024 12:07 Bicarbonate Level 24 mmol/L ()?? 03/12/2024 12:07 Anion Gap 13 ()?? 03/12/2024 12:07 Glucose Level 100 mg/dL (High)?? 03/12/2024 12:07 Glucose, POC 106 mg/dL (High)?? 03/12/2024 23:35 BUN 13 mg/dL ()?? 03/12/2024 12:07 Creatinine-Blood 0.8 mg/dL ()?? 03/12/2024 12:07 Estimated GFR Creatinine 85 ML/MIN/1.73 M2 ()?? 03/12/2024 12:07 Calcium 9.3 mg/dL ()?? 03/12/2024 12:07 Protein, Total 6.6 Gm/dL ()?? 03/12/2024 12:07 Albumin 4.0 Gm/dL ()?? 03/12/2024 12:07 AG Ratio 1.5 ()?? 03/12/2024 12:07 Alkaline Phosphatase 63 units/L ()?? 03/12/2024 12:07 AST (SGOT) 13 units/L ()?? 03/12/2024 12:07 ALT (SGPT) 15 units/L ()?? 03/12/2024 12:07 Bilirubin, Total 0.3 mg/dL ()?? 03/12/2024 12:07 ?? COAG INR 1.0 ()?? 03/12/2024 12:07 Protime (PT) 11.1 seconds ()?? 03/12/2024 12:07 APTT 28.6 seconds ()?? 03/12/2024 12:07 ?? ENDOCRINE/TUMOR MARKER TSH 2.74 uIU/mL ()?? 03/12/2024 12:07 ?? URINE OTHER Est Creatinine Clearance 63.39 mL/min ()?? 03/12/2024 23:10 Urine Cult Antimicrobial Susceptibility Comment ()?? 03/09/2024 18:00 ?? VIROLOGY COVID-19 PCR Result NEGATIVE ()?? 03/12/2024 21:47 ? EKG study * Event Display: EKG Authored Date: * Event Display: ECG 12-Lead Authored Date: Please click on pdf link to open report * Event Display: ECG 12-Lead Authored Date: Ventricular Rate: 59 BPM Atrial Rate: 59 BPM P-R Interval: 162 ms QRS Duration: 80 ms Q-T Interval: 418 ms QTC Calculation(Bazett): 413 ms P Whitestone: 40 degrees R Whitestone: -36 degrees T Whitestone: 4 degrees Sinus bradycardia Left axis deviation Septal infarct , age undetermined Abnormal ECG When compared with ECG of 28-FEB-2024 12:52, No significant change was found Confirmed by RADHIKA HUANG MD ([id number]) on 03/12/2024 8:14:41 PM [place]: RADHIKA HUANG MD Cardiology * Event Display: Cardiac Rhythm Strips Authored Date: * Event Display: Cardiac Rhythm Strips Authored Date: Hospital Progress note * Francisco Coats MD: PERFORM Event Display: Progress Note Hospital Authored Date: Patient: ??DIDKATLYN, RITO ? Age:??58 Years?Sex:??Female?:??1965?? Chief Complaint Pt is coming from home c/o migraine headache since 8pm last night.Pt reports unable to get any sleep. Pt had a stroke ??1 month ??ago. Pt also reports that she needs social work consult. Pt is ??on Eliquis History of Present Illness Seen and examined at bedside. Tentatively accepted to [facility] and going later today.?? Denies any pain. C/o chest congestion--counseled patient on using incentive spirometer.?? Still has covarrubias.?? Review of Systems 14 point review of systems negative except as noted above in HPI. Physical Exam Vitals & Measurements T:??97.7?F?? HR:??52??(Peripheral)?? RR:??16?? BP:??137/62?? SpO2:??95%?? HT:??160??cm?? WT:??85.2??kg?? BMI:??33.28?? Gen: Alert, oriented x 3. Flat affect HEENT: tracking bilat CV: Reg, no murmurs Chest: CTA bilat Abd: +BS, soft, NT Exts: trace pedal edema Neuro: CN II-XII intact except mild left droop MMT: RUE and RLE: 4+/5 LUE: 4/5; LLE: prox 3+/5, distal 4+/5 Normal tone. Assessment/Plan Pt admitted with decline in function at home, covarrubias dysfunction, found to have cervical myelopathy. ?? Right basal ganglia hemorrhagic stroke (02/03/24)??went to [facility] for rehab. Once home, minimal progress towards her independent status pre-CVA. Friends living with her to help.?? MRI c spine showed severe stenosis at??C5-C6, moderate??at C4-C5. ?? Went for ACDF??C5-C7 decompression of spinal cord on 03/20. ?? Recommendations: Activity:??Encourage ambulation with assistance Bowel Regimen:??Monitor on current regimen Bladder:??Covarrubias in place--should do voiding trial at rehab Cognition/psychopharmacology:??Avoid benzos, anticholinergics and antihistaminergics..?? DVT prophylaxis:??Agree with enoxaparin ?? Pain Management: Appears comfortable today; Continue Neurontin?? 600mg tid. Vicodin prn. Spasticity:??Mild--Baclofen increased to 10mg tid prn. Tizanidine scheduled. ?? Swallow:??No dysphagia. Continue regular texture diet. ?? Current rehab treatment & further recommendations: PT/OT: Currently receiving ?? Disposition: Rehab later today. ?? Code Status:??Full Resuscitation HCP:??Has HCP in [facility] Problem List/Past Medical History Ongoing Anxiety Cerebrovascular disease Gastroesophageal reflux disease Heart disease Hyperlipidemia Hypertensive disorder Migraines Obese class I Procedure/Surgical History D&C, right salpingo-oophorectomy: 09/05/13 section - at term: 1999 Salpingectomy, complete or partial, unilateral or bilateral (separate procedure): 1999 section - at term: 1994 section - at term: 1992 [facility] Medications Medications (26) Active SCHEDULED: (11) Acetaminophen 325 mg Tablet (Acetaminophen Tablet) ??975 mg, By Mouth, 3 times a day Aripiprazole 10mg Tablet (ARIPiprazole 10 mg oral tablet) ??10 mg, By Mouth, Daily Atorvastatin 20 mg Tablet (atorvastatin 20 mg oral tablet) ??20 mg, By Mouth, Daily Enoxaparin 40 mg Inj (Enoxaparin Inj) ??40 mg 0.4 mL, Subcutaneous Injection, Daily Famotidine 20 mg Tablet (famotidine 20 mg oral tablet) ??40 mg, By Mouth, Daily Gabapentin 300 mg Capsule (gabapentin 300 mg oral capsule) ??600 mg, By Mouth, 3 times a day NaCl 0.9% Flush 3ml (NaCL 0.9% Flush) ??3 mL, IV Push, Every 8 hours Polyethylene Glycol 17 Gm Powder (MiraLax Powder) ??17 Gm 1 pack/packet, By Mouth, Daily Senna Tablet ??17.2 mg 2 tablet, By Mouth, Daily [...] mg, By Mouth, 3 times a day Docusate Sodium 100 mg Capsule (Docusate Sodium Capsule) ??100 mg 1 capsule, By Mouth, 2 times a day Haloperidol Lactate 5 mg/mL Inj (1 mL) (Haloperidol LACTATE Inj (PACU ONLY)) ??1 mg 0.2 mL, IV Push, Once Hydrocodone 5 mg/Acetaminophen 325 mg Tablet (acetaminophen-HYDROcodone 325 mg-5 mg oral tablet) ??1 tablet, By Mouth, Every 6 hours HydrOXYzine Pamoate 25mg Capsule (hydrOXYzine pamoate 25 mg oral capsule) ??50 mg, By Mouth, 2 times a day Melatonin 3 mg Tablet (Melatonin Tablet) ??6 mg, By Mouth, Daily at bedtime NaCl 0.9% Flush 3ml (NaCL 0.9% Flush) ??3 mL, IV Push, Every 8 hours Ondansetron 2mg/mL Inj (2mL Vial) (Ondansetron Inj) ??4 mg, IV Push, Every 6 hours Ondansetron 2mg/mL Inj (2mL Vial) (Ondansetron Inj (PACU ONLY)) ??4 mg, IV Push, Once Ondansetron 2mg/mL Inj (2mL Vial) (Ondansetron Inj) ??4 mg, IV Push, Every 6 hours OxyCODONE 5 mg IR Tablet (oxyCODONE 5 mg oral tablet) ??2.5 mg, By Mouth, Once OxyCODONE 5 mg IR Tablet (Oxycodone 5mg Oral Tablet (PACU ONLY)) ??10 mg, By Mouth, Once OxyCODONE 5 mg IR Tablet (oxyCODONE 5 mg oral tablet) ??10 mg, By Mouth, Every 6 hours Simethicone 80 mg Chewable Tablet (Simethicone Tablet) ??80 mg, Chew, 3 times a day Follow-Up Appointments Added Follow Up ?Time Frame ?Comments Aliza Paul DO Lab Results PM&R Labs WBC:??12.9 k/mm3??High (03/21/24) Platelet Count: 285 k/mm3 (03/21/24) Sodium: 139 mmol/L (03/21/24) BUN: 19 mg/dL (03/21/24) Creatinine-Blood: 0.89 mg/dL (03/21/24) AST (SGOT): 13 units/L (03/12/24) ALT (SGPT): 15 units/L (03/12/24) * Ericka Crane RN: PERFORM, SIGN, VERIFY Event Display: Progress Note Hospital Authored Date: [id number] Patient: RITO VERDE Age: 58 years Sex: Female : 1965 Associated Diagnoses: None Author: Ericka Crane RN Findings Problem Related to Alteration in Comfort : Alteration in Comfort/new 03/23/2024 9:48 EDT Alteration in Comfort Related to Other: cervical stenosis, pain management-->POD#2 anterior cervical discectomy Goals & Outcomes: Comfort Pt will report acceptable level of comfort & pain control, Pt will state importance of adhering to pain strategy regime, Pt will demonstrate necessary skills to manage pain, Non-verbal indicators will indicate comfort/pain control Interventions Implemented: Comfort Assess pain using appropriate pain scale/tools, Assess aggravating factors & prevent them accordingly, Assess alleviating factors & promote them accordingly BH Goals/Interventions, Comfort Yes Comfort, Problem Start 03/19/2024 6:19 Reviewed plan with, Comfort Patient Patient Progression, Comfort Pt progressing according to plan Comfort, Problem Ongoing Yes . Nursing Data Vital Signs : VITAL SIGNS SECTION 03/23/2024 7:30 EDT Early Warning Score 4.00 03/23/2024 7:30 EDT Temperature 97.8 DegF Temperature Route Oral Pulse Rate 54 bpm L Respiratory Rate 18 br/min Systolic Blood Pressure 139 mm Hg H Diastolic Blood Pressure 79 mm Hg Blood pressure sites Arm, right Mean Arterial Pressure 99 mm Hg Pulse Pressure 60 mm Hg Oxygen Saturation 95 % Mode of Delivery (Oxygen) Room air . Narrative/Incidental I:please see paln of care above. Evaluation E:patient is alert and orientedx4. Denies chest pain and shortness of breath, +pp, no edema present. Ambulates with 1 assist stand and pivot. Pain 8/10 relieved with tylenol, oxycodone and bacolfen. Lungs are dim, no cough or wheezing present on room air. Abdomen is soft, round non tender hypo bowel sounds, LBM 5/16 large solid stool , denies nausea, anterior neck DSD present, tolerating regular diet. Covarrubias cath in place, Call jones within reach, hourly rounding and care ongoing. . * Luly WEBER, Karlie Espinoza: MODIFY, PERFORM Event Display: Progress Note Hospital Authored Date: Patient: ??RITO VREDE ? Age:??58 Years?Sex:??Female?:??1965?? Subjective Patient seen and evaluated at bedside this AM. No acute events overnight. She reports slight improvement in pain level??this AM. [facility]. Physical Exam Vitals & Measurements T:??97.8?F?? HR:??54??(Peripheral)?? RR:??16?? BP:??139/79?? SpO2:??95%?? HT:??160??cm?? WT:??85.2??kg?? BMI:??33.28?? General:??Appears well, in no acute distress, sitting in chair,??oriented to person/place/time, thoughts/mood/judgements normal HEENT: Normocephalic, trachea midline Respiratory:??Breathing is even and non-labored?? Extremities:?Symmetric, no edema, no calf tenderness Skin:??No obvious rashes or lesions, surgical??incision c/d/i, no signs of CSF leak or bleeding Neurologic:?? Mental status: awake, alert oriented to location, date and self speech is clear, fluent, and appropriate follows simple and complex commands CN II-XII grossly intact shoulder shrug symmetric 4/5 Motor: normal bulk and tone?? Upper Extremities- Deltoid:?4+/5 right?4/5 left Biceps:?5/5 right?4/5 left Triceps:?5/5 right?4/5 left Hand rock loader:?4+/5 right?4/5 left Lower Extremities- Hip Flexion:?5/5 right?5/5 left?? Knee Extension:?5/5 right?5/5 left Plantar flexion:?5/5 right?5/5 left Dorsiflexion:?5/5 right?5/5 left EHL:?5/5 right?5/5 left Sensation: diminished sensation to light touch throughout bilateral??upper extremities; sensation intact??throughout??bilateral lower extremities no saddle anesthesias? Assessment/Plan Low is a??58 y/o female who is s/p anterior cervical discectomy??C5-C7, interbody devices, fusion, plate with Dr. Mcgarry on 03/20/24 for cervical central stenosis at C5-C6 causing cord compression, and left foraminal stenosis at??C6- C7 on MRI. ?? Recommendations: -q4hr neuro checks -Ok for chemical DVT ppx -OOB as tolerated -PT/OT treat -Medical management, supportive care, adequate post-operative??pain control per primary team -Neurosurgery to sign off at this time. Patient to follow up in outpatient neurosurgery clinic in 4weeks with cervical spine AP and lateral xrays prior. Neurosurgery office notified accordingly. ?? Please page [phone] with additional questions or concerns Attending neurosurgeon: Dr. Mcgarry Intake and Output Intake and Output Results?? This visit (24 hour periods starting at 07:00 EDT)? 03/23/24 *?? 03/22/24?? 03/21/24?? Total Summary?Intake mL?? 120?? 630?? 1,729.583?Output mL?? 250?? 2,175?? 2,900?Fluid Balance ?? -130?? -1,545?? -1,170.417?? Intake (2)?Lactated Ringers Injection 1,000 mL mL?? --?? --?? 739.583?Oral Fluids mL?? 120?? 630?? 990?Total?? 120?? 630?? 1,729.583?? Output (1)?Urine Catheter mL?? 250?? 2,175?? 2,900?Total?? 250?? 2,175?? 2,900?? Counts (2)?Oral Fluids mL?? 120?? 630?? 990?Urine Catheter mL?? 250?? 2,175?? 2,900? * This column has not completed the indicated time period.?? Labs Last 24 Hours No qualifying data available. Note * Ericka Crane RN: PERFORM Event Display: Discharge/Transfer Note Hospital Authored Date: [id number] Nursing Discharge Note Entered On: 03/23/2024 13:47 EDT Performed On: 03/23/2024 13:46 EDT by Ericka Crane RN Nursing Discharge Note 2 Discharge Time : 03/23/2024 13:47 EDT Discharge Level of Care at Discharge : assisted facility Discharge Nursing Homes/Rehab Facilities : [facility] Patient Left Unit Via : Ambulance Patient Accompanied Off Unit with : Ambulance/Chair Van Personnel Handover Given to Transport Personnel : Yes DC Instructions Provided & Signed by Pt : Yes Patient Understands D/C Instructions : Yes Patient Instructions Discharge Signed : Yes Did Pt have Specialty Bed or Wound Vac : No Ericka Crane RN - 03/23/2024 13:46 EDT * Roxana Hdz MD: PERFORM, MODIFY, MODIFY, MODIFY Event Display: Discharge/Transfer Note Hospital Authored Date: [id number] Patient: ??MEHREEN, RITO ? Age:??58 Years?Sex:??Female?:??1965?? 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 hold for drowsy,RR<14?Pain , Severe Polyethylene Glycol 3350 (MiraLax Powder)?1?pack/packet?17?gram?By Mouth?Daily Senna (senna 187 mg oral tablet)?2?tab(s)?17.2?Milligram?By Mouth?Daily Tizanidine (tiZANidine 4 mg oral tablet)?4?Milligram?By Mouth?3 times a day Venlafaxine (venlafaxine 75 mg oral capsule, extended release)?75?Milligram?1?capsule?By Mouth?Daily ? Allergies Allergies ?(Active and Proposed Allergies Only) NKA? (Severity: Unknown severity, Onset: Unknown) ? PCP Follow-Up/Heads-Up Wean down oxycodone dose at the rehab.?? As per patient Cristiano is chronic. Future Appointments Wednesday 10:40 AM EDT ?? With: Nai VIERA, Andres Ledezma Where: [facility] [address] [place] [address]- Status: Pending Wednesday 3:00 PM EDT ?? With: Mary VIERA, [facility] Where: [facility] [address] [facility] [address]rd Floor, [address] [place] [id number]- Status: Pending Hospital Course ?58-year-old female with past medical history hypertension, hyperlipidemia, migraines, anxietywho is coming in today secondary to a headache, elevated blood pressure at home in the setting of not taking home BP medications. Initial CT concerning for a possible new bleed in the rhianna, neuro but??repeat CT head did not show evidence of any acute bleed. Also being managed for hypertensive emerge ncy, now off nicardipine drip. Dispo is pending surgical intervention for cervical spine stenosis. ?? Stenosis of cervical spine with myelopathy ??(M48.02) NSG consult appreciated, plan on operate next week, PT??already recommended rehab and proximity??to operation date, she will unlikely improve at rehab??without operation, hence logistically it??is reasonable to keep??her inpatient till operation??thendischarge??to rehab post- op,??updated surgery team that she is medically optimized, pending OR avail ability ?? Plan -s/p C5-C7 decompression of spinal cord??at C5-C6 and left??nerve root in the foramen at C6-C7 03/20 -Q4h neuro checks -Pain: schedule Tylenol, continue scheduled gabapentin -oxycodone to??10 every 6 as needed - Flexeril from 10 mg - bowel regimen - PMR following - Neurosurg following -Encourage ambulation with assistance Patient was seen and examined on the day of discharge.?? Neurosurgery team??at bedside-cleared for discharge.?? Patient denies??any complaints.?? Pain??during eating is??getting better.?? Pain well-controlled with current oxycodone dose. Patient is??stable??to go??to rehab ?? Hypertensive emergency ??(I16.1), resolved HTN off Cardene drip now BP is on lower normal side without meds, monitor for now, resume lisinopril asneeded to keep SBP<140 mmHg ?? Plan -Since blood pressure started??to rise will resume lisinopril upon discharge ?? History of intracranial hemorrhage ??(Z86.79) brain CT this admission showed resolution of previousbleeding ?? Urinary retention with incomplete bladder emptying ??(R33.9) Chronic indwelling Covarrubias catheter ??(Z97.8) Asymptomatic bacteriuria ??(R82.71) -urine WBC only 11 and patient has no corresponding UTI symptoms or sepsis, abx not indicated and was stopped -continue Covarrubias exchange every 4 weeks. ?? Acute kidney injury ??(N17.9), resolved Generalized anxiety disorder ??(F41.1) psych consult appreciated no need for 1:1, continue Effexor,aripiprazole and hydroxyzine prn Migraines ??(G43.909) ? pt will need rehab<30 days Objective Assessment and Plan Discharge Planning:?Anticipated Discharge Disposition:?Reg DCPLAN Discharge To, Anticipated:??[facility] Unit[facility]ility ?Estimated Length of Stay:?Reg DCPLAN Estimated Length of Stay:??5 or More Nights ? Measurements?? Height: 160 cm (03/23/24) Weight: 85.2 kg (03/20/24) Dry Weight: 85.2 kg (03/20/24) Body Mass Index:??33.28 kg/m2??Critical (03/20/24) ? Vital Signs?? Temperature: 97.8 DegF (03/23/24 07:30:00) Temperature Route: Oral (03/23/24 07:30:00) Pulse Rate:??54 bpm??Low (03/23/24 07:30:00) Respiratory Rate: 16 br/min (03/23/24 07:52:00) Systolic Blood Pressure:??139 mm Hg??High (03/23/24 07:30:00) Diastolic Blood Pressure: 79 mm Hg (03/23/24 07:30:00) Blood pressure sites: Arm, right (03/23/24 07:30:00) Mean Arterial Pressure: 99 mm Hg (03/23/24 07:30:00) Pulse Pressure: 60 mm Hg (03/23/24 07:30:00) Oxygen Saturation: 95 % (03/23/24 07:30:00) Mode of Delivery (Oxygen): Room air (03/23/24 07:30:00) Early Warning Score: 4 (03/23/24 07:55:59) ? . Physical Exam Constitutional:??Alert, in no acute distress. Respiratory: Clear to auscultation. No wheezing or crackles. No use of accessory muscles. Cardiovascular: S1S2 regular. No murmurs, rubs or gallops. Gastrointestinal: Abdomen soft, non-tender, non-distended. Normal bowel sounds. Extremities: No lower extremity pitting??edema. No cyanosis or clubbing. Neurologic: AAOx3, Speech normal. No focal neurological deficits. Surgical Procedures Discectomy and Fusion Anterior Cervical 03/20/2024 16:03 Pending Results No Pending Results Follow-Up Appointments Added Follow Up ?Time Frame ?Comments Aliza Paul DO Patient Instructions -??Follow-up with neurosurgery as outpatient Home Health Face to Face ^[facility] Results Discharge Labs BLOOD BANK Blood Type B Positive ()?? 03/20/2024 06:15 Antibody Screen Negative ()?? 03/20/2024 06:15 ?? BLOOD COUNT & DIFF WBC 12.9 k/mm3 (High)?? 03/21/2024 00:38 RBC 4.75 m/mm3 ()?? 03/21/2024 00:38 Hgb 13.7 Gm/dL ()?? 03/21/2024 00:38 Hct 41.9 % ()?? 03/21/2024 00:38 MCV 88.2 femtoliters ()?? 03/21/2024 00:38 MCH 28.8 pg ()?? 03/21/2024 00:38 MCHC 32.7 g/dL (Low)?? 03/21/2024 00:38 Platelet Count 285 k/mm3 ()?? 03/21/2024 00:38 RDW-SD 41.7 femtoliters ()?? 03/21/2024 00:38 MPV 9.7 femtoliters ()?? 03/21/2024 00:38 Nucleated RBC (Automated) 0.0 #/100 WBC'S ()?? 03/21/2024 00:38 Abs. NRBC 0.0 k/mm3 ()?? 03/21/2024 00:38 Abs. Neut 3.3 k/mm3 ()?? 03/12/2024 12:07 Abs. Lymph 2.0 k/mm3 ()?? 03/12/2024 12:07 Abs. Massac 0.4 k/mm3 ()?? 03/12/2024 12:07 Abs. Eo 0.4 k/mm3 ()?? 03/12/2024 12:07 Abs. Baso 0.0 k/mm3 ()?? 03/12/2024 12:07 Neut % 53.6 % ()?? 03/12/2024 12:07 Lymph % 32.6 % ()?? 03/12/2024 12:07 [place] % 5.9 % ()?? 03/12/2024 12:07 Eos % 6.9 % (High)?? 03/12/2024 12:07 Baso % 0.7 % ()?? 03/12/2024 12:07 Imm Gran 0.3 % ()?? 03/12/2024 12:07 Abs. Imm Gran 0.0 k/mm3 ()?? 03/12/2024 12:07 ?? CARDIAC High Sensitivity Troponin (HSTnT) 8 ng/L ()?? 03/12/2024 12:07 ? CHEM GENERAL Sodium 139 mmol/L ()?? 03/21/2024 00:38 Potassium 4.7 mmol/L ()?? 03/21/2024 00:38 Chloride 102 mmol/L ()?? 03/21/2024 00:38 Bicarbonate Level 21 mmol/L (Low)?? 03/21/2024 00:38 Anion Gap 16 ()?? 03/21/2024 00:38 Glucose Level 125 mg/dL (High)?? 03/21/2024 00:38 Glucose, POC 106 mg/dL (High)?? 03/12/2024 23:35 BUN 19 mg/dL ()?? 03/21/2024 00:38 Creatinine-Blood 0.89 mg/dL ()?? 03/21/2024 00:38 Estimated GFR Creatinine 75 ML/MIN/1.73 M2 ()?? 03/21/2024 00:38 Calcium 9.8 mg/dL ()?? 03/21/2024 00:38 Phosphorus 3.5 mg/dL ()?? 03/16/2024 08:07 Magnesium 1.8 mg/dL ()?? 03/16/2024 08:07 Protein, Total 6.6 Gm/dL ()?? 03/12/2024 12:07 Albumin 4.0 Gm/dL ()?? 03/12/2024 12:07 AG Ratio 1.5 ()?? 03/12/2024 12:07 Alkaline Phosphatase 63 units/L ()?? 03/12/2024 12:07 AST (SGOT) 13 units/L ()?? 03/12/2024 12:07 ALT (SGPT) 15 units/L ()?? 03/12/2024 12:07 Bilirubin, Total 0.3 mg/dL ()?? 03/12/2024 12:07 ?? COAG INR 1.0 ()?? 03/20/2024 08:03 Protime (PT) 11.0 seconds ()?? 03/20/2024 08:03 APTT 29.6 seconds ()?? 03/20/2024 08:03 ? ENDOCRINE/TUMOR MARKER TSH 2.74 uIU/mL ()?? 03/12/2024 12:07 ? URINE OTHER Est Creatinine Clearance 56.98 mL/min ()?? 03/21/2024 02:17 ? VIROLOGY COVID-19 PCR Specimen Source NASAL ()?? 03/12/2024 21:47 COVID-19 PCR Result NEGATIVE ()?? 03/12/2024 21:47 ? _40 minutes spent on discharge * Krystyna Degroot: PERFORM, SIGN, VERIFY Event Display: Case Management Discharge Plan Authored Date: [id number] Patient: RITO VERDE Age: 58 years Sex: Female : 1965 Associated Diagnoses: None Author: Krystyna Degroot Discharge Plan Case Management Discharge Plan : Case Management Discharge Plan Data 03/23/2024 10:33 EDT Discharge Level of Care at Discharge assisted facility Discharge Nursing Homes/Rehab Facilities [facility] Discharge Transportation Arranged [facility] [address] [place] [address] Discharge Arranged Transport Date/Time 03/23/2024 13:00 Mode of Transportation Arranged Ambulance Name of Person Notified of Transfer DC Plan delivered to bedside * Ericka Crane RN: PERFORM Event Display: Patient Education/Instruction Authored Date: Inpatient Adult Discharge Instructions. [address] [address] Name: RITO VERDE : 1965?? Visit: 03/12/2024 17:56?? Current Date: 03/23/2024 11:55 ?? Account: [id number]?? Inpatient Adult Discharge Instructions We would like [...] and their families. Surveys are administered by [employer] ?? If further treatment with your primary care physician or another doctor is recommended, it is important for you to keep the appointment. Call your primary care physician or return to the Emergency Department immediately if your condition worsens, fails to improve, or new symptoms develop. If you need to find a doctor, you can call [facility] Link for a referral at [phone] or toll free at [phone] ([phone] or log in to [email or web address].. ?? [facility], in keeping with [facility] guidance, no longer requires face masks [...] a health care rigoberto of your choosing. [employer] is a website that allows you to securely view your medical information including your hospital discharge summary, office visit summaries, medications and follow-up visits. You can also request appointments, renew medications, and request access to your medical information using a health care rigoberto of your choosing, or just ask a question. You can enroll at [email or web address] or register during your next office visit. You have been discharged from [facility], Patient Care Unit: SW6??. If you have any questions regarding these instructions, including results of studies pending, afteryou leave, please call us and we will be happy to assist you 31/05. [facility] Your Care Team Attending Physician Roxana Hdz MD?? Consulting Providers Roxana Hdz MD?? Discharging Providers Roxana Hdz MD Reason for Your Visit Pt is coming from home c/o migraine headache since 8pm last night.Pt reports unable to get any sleep. Pt had a stroke ??1 month ??ago. Pt also reports that she needs social work consult. Pt is ??on Eliquis?? Your Diagnosis Hypertensive emergency History of intracranial hemorrhage Stenosis of cervical spine with myelopathy Urinary retention with incomplete bladder emptying Chronic indwelling Covarrubias catheter Asymptomatic bacteriuria Acute kidney injury Pre-operative clearance Generalized anxiety disorder Migraines Tests Performed Below is a partial list of the tests performed during your hospitalization. You may have had other tests and procedures not included in this list. Please discuss all test results with your provider. Basic Metabolic Panel BUN Calcium Level CBC CBC w/ Differential Comprehensive Metabolic Panel COVID-19 (2019 Novel Coronavirus) PCR Creatinine Electrolytes Glucose Level GLUCOSE POC High??Sensitivity??Troponin T INR Magnesium Level Phosphorus Level PT (INR) PTT TSH with T4 Reflex (Adults Only) Type and Screen CT Angio Head CT Angio Neck CT Head/Brain W/O Contrast MRI Cervical Spine W/O Contrast XR C-Arm < 1 Hour XR Cervical Spine 3 Views or Less No tests performed during this visit.?? Primary Care Provider Aliza Paul DO? Advance Directive Health Care Proxy on File Yes - Health Care Proxy Discharge Vitals Temperature: 97.7 DegF Height: 160 cm Pulse Rate:??52 bpm??Low Weight: 85.2 kg Respiratory Rate: 16 br/min Body Mass Index:??33.28 kg/m2??Critical Systolic Blood Pressure: 137 mm Hg Body surface area: 1.95 Diastolic Blood Pressure: 62 mm Hg ?? Oxygen Saturation: 95 % ?? Studies Pending All studies ordered during this hospital stay have been completed unless listed below. Please discuss all pending results with your provider listed above in these instructions. ?? No incomplete studies found?? What to do next Instructions From Your Doctor ?? Orders? 03/23/24 11:03:00 EDT?? Scheduled Follow-Up Appointments Wednesday 10:40 AM EDT ?? With: Nai VIERA, Andres Ledezma Where: [facility] [address] [place] [address]- Status: Pending 2023 3:30 PM EDT ?? Where: [facility] [address] [place] [address] Drive [address] [place] [address]- Status: Pending Wednesday 3:00 PM EDT ?? With: Mary VIERA, [facility] Where: [facility] [address], [address] [place] [address]- Status: Pending You Need to Schedule the Following Appointments Follow Up with??Leyda Paul DOfer Gracy Where: [address] [place] [address]- Discharge Medications RITO VERDE :1965 Visit Date:03/12/2024 Medications: Please continue your medications until treatment is completed or stopped by your provider. Medications not listed below should be discontinued. Discuss any questions related to medications with your provider. What How Much When Instructions Next Dose New Oxycodone (oxyCODONE 5 mg oral tablet) 10 Milligram Oral Every 6 hours as needed for Pain , Severe Duration: 3 Days taper dose at rehab. hold for drowsy,RR<14 ?? Printed Prescription 6pm 03/23 New Polyethylene Glycol 3350 (MiraLax Powder) 17 gram Oral Daily 9am 03/24 New Senna (senna 187 mg oral tablet) 2 tab(s) Oral Daily 03/24 New Tizanidine (tiZANidine 4 mg oral tablet) 4 Milligram Oral 3 times a day 3 pm 03/23 Changed Acetaminophen (acetaminophen 325 mg oral tablet) 975 Milligram Oral 3 times a day 9 03/24 Changed Aripiprazole (ARIPiprazole 10 mg oral tablet) 1 tab(s) Oral Daily 03/24 Changed Baclofen (baclofen 10 mg oral tablet) 10 Milligram Oral 3 times a day as needed for Spasm 3pm 03/23 Changed Venlafaxine (venlafaxine 75 mg oral capsule, extended release) 1 capsule Oral Daily 03/24 Unchanged Albuterol (Proventil HFA 90 mcg/ inh inhalation aerosol with adapter) 2 puff(s) Inhalation Every 4 hours Unchanged Ascorbic Acid (Vitamin C 500 mg oral tablet) 1 tab(s) Oral Daily 03/24 Unchanged Atorvastatin (atorvastatin 20 mg oral tablet) 1 tab(s) Oral Daily 03/24 Unchanged Cetirizine (cetirizine 10 mg oral tablet) TAKE ONE TABLET BY MOUTH EVERY DAY ?? 03/24 Unchanged Famotidine (famotidine 20 mg oral tablet) 2 tab(s) Oral Daily 03/24 Unchanged Gabapentin (gabapentin 600 mg oral tablet) 1 tab(s) Oral 3 times a day 3pm 03/23 Unchanged HydrOXYzine (hydrOXYzine pamoate 50 mg oral capsule) 1 capsule Oral Twice a day as needed for as needed for anxiety Unchanged Lidocaine Topical (Lidoderm 5% film) 1 patch Topically Daily LEAVE ON FOR 12 HOURS, THEN OFF FOR 12 HOURS DIRECTED. ?? Unchanged Lisinopril (lisinopril 40 mg oral tablet) TAKE ONE TABLET EVERY MORNING ?? 9 am 03/24 ?? What How Much When Comments Stop Taking Acetaminophen/ Butalbital/ Caffeine (Fioricet Tablet) 2 tab(s) Oral Every 4 hours Stop Taking Aspirin (Aspirin Enteric Coated 81 mg oral delayed release tablet) TAKE ONE TABLET BY MOUTH EVERY DAY ?? Stop Taking Cholecalciferol (Vitamin D3 2000 intl units oral capsule) Stop Taking Diclofenac Topical (diclofenac 1% topical gel) 2 gram Topically Twice a day Stop Taking Fluticasone (Flovent HFA 110 mcg/ inh inhalation aerosol) 1 puff(s) Inhalation Twice a day Stop Taking Hydrochlorothiazide (hydrochlorothiazide 25 mg oral tablet) TAKE ONE TABLET BY MOUTH EVERY MORNING ?? Stop Taking Ibuprofen (ibuprofen 400 mg oral tablet) 1 tab(s) Oral 3 times a day as needed for Pain , Mild Stop Taking Methenamine (methenamine hippurate 1 gm oral tablet) TAKE ONE TABLET BY MOUTH EVERY DAY ?? Stop Taking Miscellaneous Rx (cholecalciferol (vitamin D3) 50 mcg (2,000 unit) capsule) TAKE ONE CAPSULE EVERY DAY ?? Stop Taking Triamcinolone Nasal (triamcinolone 55 mcg/ inh nasal spray) 2 spray(s) Nares, Both Daily Prescription Given During Visit Oxycodone (oxyCODONE 5 mg oral tablet) - 10 mg, By Mouth, Every 6 hours, # 24 tablet, 0 Refills, taper dose at rehab. hold for drowsy,RR<14?? Laboratory Results Below is a partial list of the most recent Laboratory test results done prior to this discharge. You may have had other tests and procedures not included in this list. Please discuss all test resultswith your provider. Est Creatinine Clearance - 56.98 mL/min (03/21/2024) Basic Metabolic Panel (03/21/2024) ???Sodium - 139 mmol/L???Potassium - 4.7 mmol/L???Chloride - 102 mmol/L???Bicarbonate Level - 21 mmol/L???Anion Gap - 16???Glucose Level - 125 mg/dL???BUN - 19 mg/dL???Creatinine-Blood - 0.89 mg/dL???Estimated GFR Creatinine - 75 ML/MIN/1.73 M2???Calcium - 9.8 mg/dL BUN (03/14/2024) ???BUN - 25 mg/dL Calcium Level (03/14/2024) ???Calcium - 9.7 mg/dL CBC (03/21/2024) ???WBC - 12.9 k/mm3???RBC - 4.75 m/mm3???Hgb - 13.7 Gm/dL???Hct - 41.9 %???MCV - 88.2 femtoliters???MCH - 28.8 pg???MCHC - 32.7 g/dL???Platelet Count - 285 k/mm3???RDW-SD - 41.7 femtoliters???MPV - 9.7 femtoliters???Nucleated RBC (Automated) - 0.0 #/100 WBC'S???Abs. NRBC - 0.0 k/mm3 CBC w/ Differential (03/12/2024) ???WBC - 6.1 k/mm3???RBC - 4.73 m/mm3???Hgb - 13.7 Gm/dL???Hct - 41.3 %???MCV - 87.3 femtoliters???MCH - 29.0 pg???MCHC - 33.2 g/dL???Platelet Count - 306 k/mm3???RDW-SD - 40.9 femtoliters???MPV - 9.2 femtoliters???Nucleated RBC (Automated) - 0.0 #/100 WBC'S???Abs. NRBC - 0.0 k/mm3???Abs. Neut - 3.3 k/mm3???Abs. Lymph - 2.0 k/mm3???Abs. Massac - 0.4 k/mm3???Abs. Eo - 0.4 k/mm3???Abs. Baso - 0.0 k/mm3???Neut % - 53.6 %???Lymph % - 32.6 %???Massac % - 5.9 %???Eos % - 6.9 %???Baso % - 0.7 %???Imm Gran- 0.3 %???Abs. Imm Gran - 0.0 k/mm3 Comprehensive Metabolic Panel (03/12/2024) ???Sodium - 146 mmol/L???Potassium - 4.7 mmol/L???Chloride - 109 mmol/L???Bicarbonate Level - 24 mmol/L???Anion Gap - 13???Glucose Level - 100 mg/dL???BUN - 13 mg/dL???Creatinine-Blood - 0.8 mg/dL???Estimated GFR Creatinine - 85 ML/MIN/1.73 M2???Calcium - 9.3 mg/dL???Protein, Total - 6.6 Gm/dL???Albumin - 4.0 Gm/dL???AG Ratio - 1.5???Alkaline Phosphatase - 63 units/L???AST (SGOT) - 13 units/L???ALT (SGPT) - 15 units/L???Bilirubin, Total - 0.3 mg/dL COVID-19 (2019 Novel Coronavirus) PCR (03/12/2024) ???COVID-19 PCR Specimen Source - NASAL???COVID-19 PCR Result - NEGATIVE Creatinine (03/14/2024) ???Creatinine-Blood - 1.4 mg/dL???Estimated GFR Creatinine - 46 ML/MIN/1.73 M2 Electrolytes (03/14/2024) ???Sodium - 138 mmol/L???Potassium - 3.9 mmol/L???Chloride - 100 mmol/L???Bicarbonate Level - 26 mmol/L???Anion Gap - 12 Glucose Level (03/14/2024) ???Glucose Level - 96 mg/dL GLUCOSE POC (03/12/2024) ???Glucose, POC - 106 mg/dL High??Sensitivity??Troponin T (03/12/2024) ???High Sensitivity Troponin (HSTnT) - 8 ng/L INR (03/12/2024) ???INR - 1.0???Protime (PT) - 11.1 seconds Magnesium Level (03/16/2024) ???Magnesium - 1.8 mg/dL Phosphorus Level (03/16/2024) ???Phosphorus - 3.5 mg/dL PT (INR) (03/20/2024) ???INR - 1.0???Protime (PT) - 11.0 seconds PTT (03/20/2024) ???APTT - 29.6 seconds TSH with T4 Reflex (Adults Only) (03/12/2024) ???TSH - 2.74 uIU/mL Type and Screen (03/20/2024) ???Blood Type - B Positive???Antibody Screen - Negative Allergies (NKA means No Known Allergies) NKA Problems Active Problems??(9) Anxiety?? Cerebrovascular disease?? Gastroesophageal reflux disease?? Heart disease?? Hyperlipidemia?? Hypertensive disorder?? left ventricular hypertrophy?? Migraines?? Obese class I?? Education Materials Below is the list of Educational Leaflet Providered with your Discharge Instructions. Valuables and Belongings I fully understand and agree that [facility] accepts no responsibility for all [...] to send valuables and belongings home. ?? No Valuables/Belongings: No valuables/belongings present Review of Valuable and Belonging List: With patient Date for Pt to Sign Valuables/Belongings: 03/20/24 23:38:00 ?? Other Discharge Information ? Case Management Discharge Plan?? Discharge Plan?? Discharge Agency Information?? Discharge Level of Care at Discharge: assisted facility Name of Person Notified of Transfer: DC Plan delivered to bedside Discharge Transportation Arranged: [facility] [address] [facility] ??[phone] ?? Mode of Transportation Arranged: Ambulance ?? Discharge Arranged Transport Date/Time: 03/23/24 13:00:00 ?? Discharge Nursing Homes/Rehab Facilities: [facility] ? Pulmonary Rehab Status?? Pulmonary Rehab Discharge Status?? Respiratory Rate: 16 br/min ? Common Emergency Awareness Tips IS [...] are strongly encouraged to quit. Please call [facility] [employer] Link at [phone] or [phone]) or log in to [email or web address] for referrals to smoking cessation programs. ?? 800 Suicide & Crisis Lifeline is available 31/05 if you or someone you know needs to find a reason to keep living. By calling 870 you'll be connected to a skilled, trained counselor at a crisis center in your area. INPATIENT DISCHARGE INSTRUCTIONS SIGNATURE PAGE MEHREENRITO Location:[facility] Registration Date and Time:03/12/2024 17:56 EDT Primary Care Physician: Aliza Paul DO, Attending Physician: Roxana Hdz MD, I RITO VERDE, have received the above patient education materials/instructions and have verbalized understanding. If ambulance or transport services are being used I further acknowledge being givena choice of service. ?? If you need to contact me, please call me at this number: . Patient/Fryline Attendant Name: Patient/Fryline Attendant Signature: Relationship to Patient: Witness Name/Signature: Date: * Event Display: Provider Clarification Note Please click on pdf link to open report Patient Care team information Care Team Personnel [...] Care Nurse Name: Oscar Velasquez RN Position: S RN Supv Member Role: Primary Care Nurse Name: Ericka Crane RN Position: [facility] RN Member Role: Primary Care Nurse Name: Aliza Paul DO Position: [facility] Outreach Member Role: PCP Address: Address: [address] [place] [address]- Name: Kyleigh Blount RN Position: [facility] RN Member Role: Primary Care Nurse Name: Parvin Walton RN Position: S RN Member Role: Primary Care Nurse Name: Ines Plasencia Position: [facility] RN Member Role: Primary Care Nurse Name: Joselyn Lafleur RN Position: [facility] RN Member Role: Primary Care Nurse Name: Yesika Paris RN Position: [facility] RN Member Role: Primary Care Nurse Name: Janine Carranza RN Position: [facility] RN Member Role: Primary Care Nurse Name: Estefani Sterling RN Position: [facility] RN Member Role: Primary Care Nurse Name: Jessica Booth Position: [facility] RN Member Role: Primary Care Nurse Care Team Related Persons Name: RAN VERDE Address: home [place], [place] Name: RAN GARRIDO Address: home [place], [place] Name: LB PELAYO Address: home [address]
--- OUTSIDE RECORDS SUMMARY | 2024-06-11 16:32 | XMS_ITS | Continuity of Care Document ---
Author Organization [facility] Address [address] [place] [address] Martine montaño, [address] [place] [address]- Care Team Providers Care Manager Environmental Health Name Role Phone Aliza Paul DO Primary Care Physician Encounter [facility] Date(s): 03/27/24 - 04/26/24 [facility] [address] [place] [address] Drive [address] [place] [address]- Allergies, Adverse Reactions, Alerts No Known Allergies Immunizations Given and Recorded Vaccine Date Status Refusal Reason SARS-CoV-2 mRNA ([id number]) vax 10/17/22 Given Rabies vaccine,purified chick embryo 09/06/22 Rodolfo rded tetanus/diphtheria/pertussis, acel(Tdap) 09/06/22 Recorded tetanus/diphtheria/pertussis, acel(Tdap) 12/16/21 Recorded pneumococcal 23-valent vaccine 12/16/21 Recorded influenza virus vaccine, inactivated 09/23/17 Rodolfo rded influenza virus vaccine, inactivated 08/16/14 Rodolfo rded Medications acetaminophen 325 mg oral tablet 975 mg, By Mouth, Every 6 hours, Refills 0, Maintenance, 04/11/24 11:08:00 EDT, Partial fill upon patient request if the prescription is for a schedule II opioid drug. Start Date: 04/11/24 Status: Ordered ARIPiprazole 10 mg oral tablet [...] Date: 04/04/24 Stop Date: 04/11/24 Status: Ordered cetirizine 10 mg oral tablet [...] opioid drug. Start Date: 04/11/24 Status: Ordered hydrOXYzine pamoate 50 mg oral capsule 1 capsule = 50 mg, By Mouth, 4 times a day, PRN as needed for anxiety Start Date: 10/16/22 Status: Ordered ibuprofen 600 mg oral tablet 600 mg, By Mouth, Every 6 hours, PRN, Refills 0, Maintenance, Pain , Mild, 04/11/24 11:09:00 EDT, Partial fill upon patient request if the prescription is for a schedule II opioid drug. Start Date: 04/11/24 Status: Ordered Lidoderm 5% film 1 patch, [...] opioid drug. Start Date: 03/23/24 Status: Ordered Proventil HFA 90 mcg/inh inhalation [...] Team Personnel Name: Francesca Galvan RN Position: [facility] RN Member Role: Primary Care Nurse Name: Yohana Coffey RN Position: [facility] RN Member Role: Primary Care Nurse Name: Patricia Beltran RN Position: [facility] RN Member Role: Primary Care Nurse Name: Parvin Lmea RN Position: [facility] RN Member Role: Primary Care Nurse Name: Khoa Marcelo RN Position: [facility] RN Member Role: Primary Care Nurse Name: Oscar Velasquez RN Position: [facility] RN Supv Member Role: Primary Care Nurse Name: Nancy Rivera RN Position: [facility] RN Member Role: Primary Care Nurse Name: Ericka Crane RN Position: [facility] RN Member Role: Primary Care Nurse Name: Patricia Han RN Position: [facility] RN Member Role: Primary Care Nurse Name: Angie Green LPN Position: [facility] RN Member Role: Primary Care Nurse Name: Aliza Paul DO Position: [facility] Outreach Member Role: PCP Address: Address: [address] [place] [id number] Name: Kyleigh Blount RN Position: [facility] RN Member Role: Primary Care Nurse Name: Parvin Walton RN Position: [facility] RN Member Role: Primary Care Nurse Name: Mere Vargas RN Position: [facility] RN Member Role: Primary Care Nurse Name: Walter Powell RN Position: [facility] RN Member Role: Primary Care Nurse Name: Ines Plasencia RN Position: [facility] RN Member Role: Primary Care Nurse Name: Joselyn Lafleur RN Position: [facility] RN Member Role: Primary Care Nurse Name: Manan Summers RN Position: [facility] RN Member Role: Primary Care Nurse Name: Tania Sanders RN Position: [facility] RN Member Role: Primary Care Nurse Name: Hattie Weller RN Position: [facility] RN Member Role: Primary Care Nurse Name: Yesika Paris RN Position: [facility] RN Member Role: Primary Care Nurse Name: Janine Carranza RN Position: [facility] RN Member Role: Primary Care Nurse Name: Estefani Sterling RN Position: [facility] RN Member Role: Primary Care Nurse Name: Rosi Mosqueda LPN Position: S RN Member Role: Primary Care Nurse Name: Jessica Booth LPN Position: [facility] RN Member Role: Primary Care Nurse Care Team Related Persons Name: TRINOCLEVELAND POTTSY Address: home [address] [place] [address] Name: JACLYN GARRIDO Address: [place] [address] Name: LB PELAYO Address: home [address] [place] [id number]
--- OUTSIDE RECORDS SUMMARY | 2024-06-11 16:33 | XMS_ITS | Continuity of Care Document ---
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 Role Phone Aliza Paul DO Primary Care Physician [phone] En[facility] Date(s): 03/27/24 - 04/26/24 [facility] [address] [place] [address] Drive [address] [place] [address]- Allergies, Adverse Reactions, Alerts No Known Allergies Immunizations Given and Recorded Vaccine Date Status Refusal Reason SARS-CoV-2 mRNA ([id number]) vax 10/17/22 Given Rabies vaccine,purified chick embryo [...] Team Personnel Name: Francesca Galvan RN Position: [facility] RN Member Role: Primary Care Nurse Name: Yohana Coffey RN Position: [facility] RN Member Role: Primary Care Nurse Name: Patricia Beltran RN Position: [facility] RN Member Role: Primary Care Nurse Name: Parvin Lema RN Position: [facility] RN Member Role: Primary Care Nurse Name: Khoa Marcelo RN Position: [facility] RN Member Role: Primary Care Nurse Name: Oscar Velasquez RN Position: [facility] RN Supv Member Role: Primary Care Nurse Name: Nancy Rivera RN Position: [facility] RN Member Role: Primary Care Nurse Name: Ericka Crane RN Position: [facility] RN Member Role: Primary Care Nurse Name: Patricia Han RN Position: [facility] RN Member Role: Primary Care Nurse Name: Angie Green LPN Position: [facility] RN Member Role: Primary Care Nurse Name: Aliza Paul DO Position: [facility] Outreach Member Role: PCP Address: Address: [address] [place] [id number] Name: Kyleigh Blount RN Position: [facility] RN Member Role: Primary Care Nurse Name: Parvin Walton RN Position: [facility] RN Member Role: Primary Care Nurse Name: Mere Vargas RN Position: [facility] RN Member Role: Primary Care Nurse Name: Walter Powell RN Position: [facility] RN Member Role: Primary Care Nurse Name: Ines Plasencia RN Position: [facility] RN Member Role: Primary Care Nurse Name: Joselyn Lafleur RN Position: [facility] RN Member Role: Primary Care Nurse Name: Manan Summers RN Position: [facility] RN Member Role: Primary Care Nurse Name: Tania Sanders RN Position: [facility] RN Member Role: Primary Care Nurse Name: Hattie Weller RN Position: [facility] RN Member Role: Primary Care Nurse Name: Yesika Paris RN Position: [facility] RN Member Role: Primary Care Nurse Name: Janine Carranza RN Position: [facility] RN Member Role: Primary Care Nurse Name: Estefani Sterling RN Position: [facility] RN Member Role: Primary Care Nurse Name: Rosi Mosqueda LPN Position: S RN Member Role: Primary Care Nurse Name: Jessica Booth LPN Position: S RN Member Role: Primary Care Nurse Care Team Related Persons Name: CLEVELAND VERDEY Address: home [address] [place] [address] Name: JACLYN GARRIDO Address: [place] [address] Name: LB PELAYO Address: home [address] [place] [id number]
--- OUTSIDE RECORDS SUMMARY | 2024-06-11 16:33 | XMS_ITS | Continuity of Care Document ---
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 Role Phone Aliza Paul DO Primary Care Physician [phone] Encounter [facility] Date(s): 10/15/22 - 11/14/[address] [address] Attending Physician: Not on Staff, Attending MD Admitting Physician: Not on Staff, Admitting MD Referring Physician: Not on Staff, Referring MD Allergies, Adverse Reactions, Alerts No Known Allergies Immunizations Given and Recorded Vaccine Date Status Refusal Reason SARS-CoV-2 mRNA ([id number]) vax 10/17/22 Given Rabies vaccine,purified chick embryo [...] at bedtime Start Date: 10/16/22 Status: Ordered atorvastatin 20 mg oral tablet [...] PRN, Spasm Start Date: 10/16/22 Status: Ordered cholecalciferol (vitamin D3) 50 mcg [...] drug. Start Date: 10/16/22 Status: Ordered gabapentin 600 mg oral tablet [...] HOURS DIRECTED. Start Date: 10/16/22 Status: Ordered Proventil HFA 90 mcg/inh inhalation [...] Hypertensive disorder Confirmed Active Migraines Confirmed Active Severe obesity Confirmed Active Social History Social History Type Response Smoking Status Never (less than 100 in lifetime) entered on: 12/26/20 Sex Patient Care team information Care Team Personnel Name: Yohana Coffey RN Position: S RN Member Role: Primary Care Nurse Name: Oscar Velasquez RN Position: S RN Supv Member Role: Primary Care Nurse Name: Aliza Paul DO Position: [facility] Outreach Member Role: PCP Address: Address: [address] [place] [address]- Care Team Related Persons Name: ENID GUILLERMO Address: home [address] Name: JACLYN GARRIDO Address: home [place], [place] Name: LB PELAYO Address: home [address]
--- OUTSIDE RECORDS SUMMARY | 2024-06-11 16:33 | XMS_ITS | Continuity of Care Document ---
Author Organization [facility] ter Address [address] [place] [id number] Care Team Providers Care Precision Assembler Bench Name Role Phone Aliza Paul DO Primary Care Physician [phone] Encounter [facility] Date(s): 10/16/22 - 10/20/[address] [address]- Discharge Disposition: A-Transfer SNF Attending Physician: Yeyo Sanchez MD Admitting Physician: Martin Reed MD Referring Physician: Not on Staff, Referring MD Allergies, Adverse Reactions, Alerts No Known Allergies Immunizations Given and Recorded Vaccine Date Status Refusal Reason SARS-CoV-2 mRNA ([id number]) vax 10/17/22 Given Rabies vaccine,purified chick embryo [...] oral capsule 600 mg, Capsule, By Mouth, 10/20/22 15:00:00 EST Start Date: 10/20/22 Stop Date: 10/20/22 Status: Completed gabapentin 600 mg oral tablet [...] HOURS DIRECTED. Start Date: 10/16/22 Status: Ordered MorPHINE Immediate Release Tablet 15 mg, Tablet, By Mouth, Every 6 hours, PRN for Pain , Severe, Routine, 10/16/22 23:05:00 EST Start Date: 10/16/22 Stop Date: 10/21/22 Status: Discontinued Proventil HFA 90 mcg/inh inhalation [...] Migraines Confirmed Active Severe obesity Confirmed Active Vital Signs Most recent to oldest [Reference Range]: 1 2 3 Height 160 cm (10/20/22 3:44 PM) 160 cm (10/20/22 2:29 PM) 160 cm (10/20/22 5:59 AM) Weight 104.6 kg (10/19/22 4:13 PM) 104.3 kg (10/19/22 12:39 PM) 104.3 kg (10/19/22 3:22 AM) Oxygen Saturation [94-100 %] 96 % (10/20/22 3:44 PM) 98 % (10/20/22 2:29 PM) 96 % (10/20/22 5:59 AM) Pulse Rate [55-90 bpm] 67 bpm (10/20/22 3:44 PM) 69 bpm (10/20/22 2:29 PM) 62 bpm (10/20/22 5:59 AM) Body Mass Index [18.5-24.99 kg/m2] 40.86 kg/m2 *>HHI* (10/19/22 4:13 PM) Blood Pressure [90-138/55-84 mm Hg] 121/68mm Hg (10/20/22 3:44 PM) 136/79mm Hg (10/20/22 2:29 PM) 130/80mm Hg (10/20/22 5:59 AM) Respiratory Rate [16-30 br/min] 20 br/min (10/20/22 3:44 PM) 20 br/min (10/20/22 3:42 PM) 20 br/min (10/20/22 3:42 PM) Temperature [96.8-100.4 DegF] 98.0 DegF (10/20/22 2:29 PM) 98.0 DegF (10/20/22 5:59 AM) 98.2 DegF (10/19/22 8:58 PM) Mode of Delivery (Oxygen) Room air (10/20/22 3:44 PM) Room air (10/20/22 2:29 PM) Room air (10/20/22 5:59 AM) Blood pressure sites Arm, left (10/20/22 3:44 PM) Arm, right (10/20/22 5:59 AM) Arm, right (10/19/22 8:58 PM) Temperature Route Oral (10/20/22 2:29 PM) Oral (10/20/22 5:59 AM) Oral (10/19/22 8:58 PM) Dry Weight 104.6 kg (10/19/22 4:13 PM) 104.3 kg (10/19/22 12:39 PM) 104.3 kg (10/19/22 3:22 AM) Weight Obtained Via Patient/family state d (10/16/22 6:09 AM) Dry Weight Obtained Via Patient/family s tated (10/16/22 6:09 AM) Social History Social History Type Response Smoking Status Never (less than 100 in lifetime) entered on: 12/26/20 Sex Admission evaluation note * Lo Ch: MODIFY, PERFORM Event Display: Admission Note Authored Date: [id number] Patient: ??RITO VERDE ? Age:??57 Years?Sex:??Female?:??1965?? Chief Complaint/Reason for Consultation admitted here for uti and broken shoulder was discharged yesterday with recommendation of rehab. Today, patient felt increased weakness and felt she needed to go to rehab so she called ems. States she feels as though she is confused, a&ox4 for ems History of Present Illness Ms. Verde is a 57 yo F with PMHx HTN, anxiety, recent humerus fracture (10/14)??who attempted to gohome with services, though feels that she cannot complete her??ADLs, and re-presented to [facility] ED 10/16 in search of rehab placement. ?? She remained in the ED x 48h without rehab placement. This is limited as she was not previously vaccinated. She did agree to vaccination x 1 while here. As of today (10/18), PT is still recommending rehab. ?? At time of admission exam, she has no complaints. Review of Systems A full review of systems was completed and is otherwise negative except as mentioned in history of present illness. Objective ?? Physical Exam Temperature?98 ?(11:35) Systolic Blood Pressure?136 ?(11:35) Diastolic Blood Pressure?78 ?(11:35) Pulse?77 ?(11:35) SpO2?97 ?(11:35) Respiratory Rate?18 ?(11:35) ?? Constitutional: Alert, NAD. HEENT: Normocephalic. Respiratory: Clear to auscultation. No wheezing, rales or rhonchi. Cardiovascular: RRR. No murmurs, rubs or gallops. Gastrointestinal: Abdomen soft, non-tender, non-distended. Normal bowel sounds. Neurologic: Moves all extremities spontaneously. Skin: No rashes or lesions. Extremities: RUE in sling. Psychiatric: appropriate mood and affect Assessment/Plan Assessment:??Ms. Verde is a 57 yo F with PMHx HTN, anxiety, recent humerus fracture (10/14) who attempted to go home with services, though feels that she cannot complete her ADLs, and re-presented [facility] ED 10/16 in search of rehab placement. ?? Humerus fracture (S42.309A):??nonweightbearing, sling. F/u [facility] 1-2 weeks (from 10/14, so needs f/u in timeframe of 10/21-10/27), could reach out if still inpt at that time. ?? CHRONIC MEDICAL CONDITIONS: Anxiety (F41.9):??continue home meds HLD (hyperlipidemia) (E78.5):??noted in hx, not taking statin, check lipids in am, resume if needed HTN (hypertension) (I10):??med rec with multiple antihypertensives without recent fills (lisinopril, metoprolol, amlodipine), normotensive without meds. ?? Quality Measures Code Status: Full Diet: Cardiac DVT PPX: Lovenox SC OMN: Rehab placement, medically cleared ?? Okay for no IV access ?? [This note was completed via Dragon Dictation. Please do not hesitate to contact the author for clarification of any unintentional error should it be needed.] ?? Histories Allergies Allergies ?(Active and Proposed Allergies Only) NKA? (Severity: Unknown severity, Onset: Unknown) ? Past Medical History/Problem List Active Problems??(8) Anxiety Cerebrovascular disease Gastroesophageal reflux disease Heart disease Hyperlipidemia Hypertensive disorder Migraines Obese class II ? Past Surgical History D&C, right salpingo-oophorectomy: [...] 4 hours Amlodipine (amLODIPine 10 mg oral tablet)?1?tab(s)?10?Milligram?By Mouth?Daily Aripiprazole (ARIPiprazole 5 mg oral tablet)?5?Milligram?1?tablet?By Mouth?Daily at bedtime Ascorbic Acid (Vitamin C 500 mg oral tablet)?1?tab(s)?500?Milligram?By Mouth?Daily Atorvastatin (atorvastatin 20 mg oral tablet)?1?tab(s)?20?Milligram?By Mouth?Daily Baclofen (baclofen 10 mg oral tablet)?10?Milligram?1?tablet?By Mouth?3 times a day?as needed?Spasm Diclofenac Topical (diclofenac 1% topical gel)?2?gram?Topically?2 times a day Fluticasone (Flovent HFA 110 mcg/inh inhalation aerosol)?1?puff(s)?Inhalation?2 times aday Gabapentin (gabapentin 600 mg oral tablet)?1?tab(s)?600?Milligram?By Mouth?3 times a day HydrOXYzine (hydrOXYzine pamoate 50 mg oral capsule)?1?capsule?50?Milligram?By Mouth?2 times a day?as needed?as needed for anxiety Lidocaine Topical (Lidoderm 5% film)?1 patch?Topically?Daily?LEAVE ON FOR 12 HOURS, THEN OFF FOR 12 HOURS DIRECTED. Lisinopril (lisinopril 40 mg oral tablet)?1?tab(s)?40?Milligram?By Mouth?Daily Metoprolol (Metoprolol Tartrate 100 mg oral tablet)?1?tab(s)?100?Milligram?By Mouth?2 times a day?with meals Miscellaneous Rx (cholecalciferol (vitamin D3) 50 mcg (2,000 unit) capsule)?TAKE ONE CAPSULE EVERY DAY Triamcinolone Nasal (triamcinolone 55 mcg/inh nasal spray)?2?spray(s)?110?Microgram?Nares, Both?Daily ? Inpatient Medications Medications (25) Active SCHEDULED: (12) Aripiprazole 5 mg Tablet (ARIPiprazole 5 mg oral tablet) ??5 mg, By Mouth, Daily at bedtime Ascorbic Acid 250 mg Tablet (Vitamin C 500 mg oral tablet) ??500 mg, By Mouth, Daily Cephalexin Monohydrate 250 mg Capsule (Keflex Capsule) ??250 mg, By Mouth, Every 6 hours Cetirizine 5 mg / 5mL Syrup (UD) (Cetirizine Liquid) ??10 mg 10 mL, By Mouth, Daily Enoxaparin 40 mg Inj (Enoxaparin Inj) ??40 mg 0.4 mL, Subcutaneous Injection, Daily Famotidine 20 mg Tablet (famotidine 20 mg oral tablet) ??40 mg, By Mouth, Daily Fluticasone Propionate 50mcg/inh Nasal [place] (fluticasone 50 mcg/inh nasal spray) ??50 mcg 1 sprays, Nares, Both, Daily Gabapentin 300 mg Capsule (gabapentin 300 mg oral capsule) ??600 mg, By Mouth, 3 times a day Lidocaine 5% Topical Patch (Lidocaine 5% Patch) ??1 each, Topically, Daily NaCl 0.9% Flush 3ml (NaCL 0.9% Flush) ??3 mL, IV Push, Every 8 hours Remove Patch (Remove Lidocaine Patch) ??1 each, Topically, Daily at bedtime Venlafaxine 150 mg XR Capsule (venlafaxine 150 mg oral capsule, extended release) ??150 mg, By Mouth, Daily CONTINUOUS: (0) PRN: (13) Acetaminophen 325 mg Tablet (Acetaminophen Tablet) ??650 mg, By Mouth, Every 4 hours Albuterol 90mcg/Inhalation Inhaler HFA (albuterol CFC free 90 mcg/inh inhalation aerosol) ??90 mcg 1 puffs, Inhalation, Every 4 hours Baclofen 10 mg Tablet (baclofen 10 mg oral tablet) ??10 mg, By Mouth, 3 times a day Dextromethorphan-Guaifenesin 20 mg-200 mg/10 mL Liqu UD (Robitussin DM Liquid) ??10 mL, By Mouth, Every 4 hours HydrOXYzine Pamoate 25mg Capsule (hydrOXYzine pamoate 25 mg oral capsule) ??50 mg, By Mouth, 2 times a day Ibuprofen 400 mg Tablet (ibuprofen 400 mg oral tablet) ??400 mg, By Mouth, 3 times a day Lorazepam 1 mg Tablet (LORazepam 1 mg oral tablet) ??1 mg, By Mouth, 3 times a day Melatonin 3 mg Tablet (Melatonin Tablet) ??3 mg, By Mouth, Daily at bedtime MorPHINE 15 mg Tablet (MorPHINE Immediate Release Tablet) ??15 mg, By Mouth, Every 6 hours NaCl 0.9% Flush 3ml (NaCL 0.9% Flush) ??3 mL, IV Push, Every 8 hours Polyethylene Glycol 17 Gm Powder (MiraLax Powder) ??17 Gm 1 pack/packet, By Mouth, Daily Senna 8.6 mg / Docusate 50 mg tablet (Docusate/Senna Tablet) ??1 tablet, By Mouth, 2 times a day Simethicone 80 mg Chewable Tablet (Simethicone Tablet) ??80 mg, Chew, 3 times a day ? Results Recent Labs VIROLOGY COVID-19 by RT-PCR NEGATIVE ()?? 10/18/2022 08:42 ? EKG study * Event Display: ECG 12-Lead Authored Date: Please click on pdf link to open report * Event Display: ECG 12-Lead Authored Date: Ventricular Rate: 70 BPM Atrial Rate: 70 BPM P-R Interval: 158 ms QRS Duration: 90 ms Q-T Interval: 386 ms QTC Calculation(Bazett): 416 ms P Cleveland: 33 degrees R Cleveland: -33 degrees T Cleveland: 150 degrees Normal sinus rhythm Left axis deviation Left ventricular hypertrophy with repolarization abnormality Abnormal ECG When compared with ECG of 20-SEP-2021 10:43, T wave inversion now evident in Lateral leads Confirmed by TOMASA GANN DO ([id number]) on 10/17/2022 11:18:04 AM [place] * Yohana Coffey RN: VERIFY, PERFORM, SIGN Event Display: [facility] Authored Date: [id number] Patient: RITO VERDE Age: 57 years Sex: Female : 1965 Associated Diagnoses: None Author: Yohana Coffey RN Findings Problem Related to Alteration in Safety : Alteration in Safety/new 10/20/2022 20:00 EST Alteration in Safety Related to Toxic Ingestion Goals & Outcomes, Safety Pt/caregiver will state understanding of plan/goals of care Interventions, Safety Resolved problem, Interventions no longer in effect BH Goals/Interventions, Safety Yes Safety, Problem Start 10/19/2022 18:00 Reviewed plan with, Safety Patient Patient Progression, Safety Resolved problem Safety, Problem Resolved 10/20/2022 18:15 . Alteration in Tissue Perfusion : Alteration in Tissue Perfusion 10/20/2022 20:00 EST Alteration Tissue Perfusion related to Traumatic injury Goals & Outcomes: Tissue perfusion Pt will experience improved tissue perfusion Interventions: Tissue Perfusion Resolved problem, Interventions no longer in effect Goals/Interventions, Tissue Perfusion Yes Tissue Perfusion, Problem Start 10/20/2022 20:36 Reviewed Plan with, Tissue Perfusion Patient Patient Progression, Tissue Perfusion Resolved problem Problem Resolved, Tissue Perfusion 10/20/2022 18:15 . Evaluation Pt alert, oriented x 4, c/o Rt shoulder pain 10/10 on pain scale, prn Morphine, Acetaminophen, Ibuprofen, and Baclofen given per pt request. Pt noted to be resting intermittently through out the shift. Sling is on RUE. Quinonez cath patent, draining cl, yellow urine. Quinonez care given by PCT. Pt does not present with any cardiac/resp distress, no increased s/s hypo/hyperglycemia noted. Pt discharged to facility, she is aware and agrees. Pt does not have IV access to remove. She left unit via stretcher accompanied by ambulance attendants, report given. . Discharge Information Case Management Discharge Plan : Case Management Discharge Plan Data 10/20/2022 18:59 EST Discharge Level of Care at Discharge half-way facility Discharge Nursing Homes/Rehab Facilities [facility] 10/20/2022 14:37 EST Discharge Level of Care at Discharge half-way facility Discharge Nursing Homes/Rehab Facilities [facility] Discharge Transportation Arranged [facility] [address] [facility] Discharge Arranged Transport Date/Time 10/20/2022 17:00 Mode of Transportation Arranged Ambulance Name of Agency #1 [facility] Agency [employer] Transport Pilot # Service Categories #1 Physical Therapy Service Comments #1 You are being discharged to [facility] in [facility] today for short term rehab. 10/15/2022 15:20 EST Discharge Level of Care at Discharge Homehealth/VNA Discharge VNA/Hospice/Home Care [facility] Discharge Transportation Arranged [facility] [address] [facility] [address] [phone] Discharge Arranged Transport Date/Time 10/15/2022 15:00 Mode of Transportation Arranged Ambulance Name of Agency #1 [facility] Service Categories #1 Occupational Therapy, Physical Therapy Service Comments #1 [facility] will contact you within 24-48hours to set up visits if you do not hear please call Rehabilitation Discharge : Rehab Discharge Index 10/18/2022 10:16 EST Comments on treatment indicated ADLs, functional mobility, safety, pt ed. Full chart review completed Yes Hospital course Pt was d/c from ED 10/15, presenting back 10/16 due to inability to care for self @ home. 10/15/2022 9:07 EST Comments on treatment indicated 57 y/o F who uses power w/c for most mobility suffered fakll with Right humeral neck fx, NWB with sling immobilization. Recommend short term rehab abnd pt is very motivated to participate and return home. Cane: distance ARTS ADMINISTRATOR Full chart review completed Yes Hospital course X-Ray: Comminuted mildly displaced fracture humeral neck without associated dislocation. Other findings Pt seen in ED and educated for NWB, proper positioning and use of sling. Pt is Righthand dominant and uses power w/c with controls on Right. Pt currently unable to externally rotate at shoulder for use of her power chair. * Lily Crocker LPN: PERFORM, SIGN, VERIFY Event Display: Progress Note Hospital Authored Date: Patient: RITO VERDE Age: 57 years Sex: Female : 1965 Associated Diagnoses: None Author: Lily Crocker LPN Findings Evaluation Pt. AOx4, F/C care rendered; maintained below level of bladder, & Statlock in place, PRNs givenfor Right shoulder pain (See MAR), Pt. had Medium to Large BM x1, Lab blood work drawn insuficient sample, made aware, re-ordered by .; awaiting results. . Discharge Information Case Management Discharge Plan : Case Management Discharge Plan Data 10/15/2022 15:20 EST Discharge Level of Care at Discharge Homehealth/VNA Discharge VNA/Hospice/Home Care [facility] Discharge Transportation Arranged [facility] [address] [facility] [phone] Discharge Arranged Transport Date/Time 10/15/2022 15:00 Mode of Transportation Arranged Ambulance Name of Agency #1 [facility] Service Categories #1 Occupational Therapy, Physical Therapy Service Comments #1 [facility] will contact you within 24-48hours to set up visits if you do not hear please call Rehabilitation Discharge : Rehab Discharge Index 10/18/2022 10:16 EST Comments on treatment indicated ADLs, functional mobility, safety, pt ed. Full chart review completed Yes Hospital course Pt was d/c from ED 10/15, presenting back 10/16 due to inability to care for self @ home. 10/15/2022 9:07 EST Comments on treatment indicated 57 y/o F who uses power w/c for most mobility suffered fakll with Right humeral neck fx, NWB with sling immobilization. Recommend short term rehab abnd pt is very motivated to participate and return home. Cane: distance ARTS ADMINISTRATOR Full chart review completed Yes Hospital course X-Ray: Comminuted mildly displaced fracture humeral neck without associated dislocation. Other findings Pt seen in ED and educated for NWB, proper positioning and use of sling. Pt is Righthand dominant and uses power w/c with controls on Right. Pt currently unable to externally rotate at shoulder for use of her power chair. * Janine Kaur RN: PERFORM, SIGN, VERIFY Event Display: Progress Note Hospital Authored Date: Patient: RITO VERDE Age: 57 years Sex: Female : 1965 Associated Diagnoses: None Author: Janine Kaur RN Findings Problem Related to Alteration in Safety : Alteration in Safety/new 10/19/2022 18:00 EST Alteration in Safety Related to Toxic Ingestion Goals & Outcomes, Safety Pt/caregiver will state understanding of plan/goals of care Interventions, Safety Provide teaching as needed Goals/Interventions, Safety Yes Safety, Problem Start 10/19/2022 18:00 Reviewed plan with, Safety Patient Patient Progression, Safety Plan Initiation . Alteration in Tissue Perfusion : Alteration in Tissue Perfusion 10/19/2022 18:00 EST Alteration Tissue Perfusion related to Traumatic injury Goals & Outcomes: Tissue perfusion Pt will experience improved tissue perfusion Interventions: Tissue Perfusion Assess/Monitor peripheral pulses & capillary refill Goals/Interventions, Tissue Perfusion Yes Tissue Perfusion, Problem Start 10/19/2022 18:00 Reviewed Plan with, Tissue Perfusion Patient Patient Progression, Tissue Perfusion Plan Initiation . Narrative/Incidental Patient A/Ox3, able to call RN and able to respond on arrival to unit but seemingly under the influence of medications and obvious concern as patient was found to have edibles w/THC amond her belongings and a vape pen, all of which she was reluctant to relinquish despite Nurse Grant Specialist presence. Patient called friend to have these items taken off hospital property, patient attempted to take one prior to giving them up to staff field engineer. After assessment patient reporting anxiety from all the yelling from patient across hallway and saying she needs anxiety med, which was given prn. Patient previouslyreported that she did not want her scheduled gabapentin as it makes her dizzy, Tylenol and ativan given. Patient subsequently slept, awoke requesting more pain meds, but was again asleep once RN cameto bedside to offer options. At shift change during bedside report patient demanding that railings on bed be lowered, trying to fit her leg through bed rail, saying that the night RN does not need luis angel informed about her edibles. Patient reporting pain to R arm but violently shaking the bedrail on that side of the bed with her upper body. Continue to monitor. Patient's call jones within reach, bed in lowest locked position, non-skid slippers on, needs met, bed alarm on.. Note * Toña Dowling: PERFORM Event Display: Discharge/Transfer Note Hospital Authored Date: [id number] Nursing Discharge Note Entered On: 10/20/2022 19:00 EST Performed On: 10/20/2022 18:59 EST by Toña Dowling Nursing Discharge Note 2 Discharge Time : 10/20/2022 18:15 EST Discharge Level of Care at Discharge : half-way facility Discharge Nursing Homes/Rehab Facilities : [facility] Patient Left Unit Via : Wheelchair Patient Accompanied Off Unit with : Ambulance/Chair Van Personnel Handover Given to Transport Personnel : Yes DC Instructions Provided & Signed by Pt : Yes Patient Understands D/C Instructions : Yes Patient Instructions Discharge Signed : Yes Did Pt have Specialty Bed or Wound Vac : No Toña Dowling - 10/20/2022 18:59 EST * Yeyo Sanchez MD: PERFORM Event Display: Discharge/Transfer Note Hospital Authored Date: [id number] Patient: ??RITO VERDE ? Age:??57 Years?Sex:??Female?:??1965?? Patient Information Discharge Location: [facility] Primary Care Physician: Aliza Paul DO Admit Date/Time: 10/16/22 05:49 Discharge date-10/20/2022 Discharge Disposition Discharge Disposition: [facility]pc Facility/Rehab Discharge Diagnosis Anxiety (F41.9) HLD (hyperlipidemia) (E78.5) HTN (hypertension) (I10) Humerus fracture (S42.309A) ?? _ Discharge Medications Acetaminophen (acetaminophen 650 mg [...] capsule, extended release)?150?Milligram?1?capsule?By Mouth?Daily ? Quality Measures Tobacco Use Treatment:? Inpatient Medications Medications (24) Active SCHEDULED: (11) Aripiprazole 5 mg Tablet (ARIPiprazole 5 mg oral tablet) ??5 mg, By Mouth, Daily at bedtime Ascorbic Acid 250 mg Tablet (Vitamin C 500 mg oral tablet) ??500 mg, By Mouth, Daily Cetirizine 5 mg / 5mL Syrup (UD) (Cetirizine Liquid) ??10 mg 10 mL, By Mouth, Daily Enoxaparin 40 mg Inj (Enoxaparin Inj) ??40 mg 0.4 mL, Subcutaneous Injection, Daily Famotidine 20 mg Tablet (famotidine 20 mg oral tablet) ??40 mg, By Mouth, Daily Fluticasone Propionate 50mcg/inh Nasal [place] (fluticasone 50 mcg/inh nasal spray) ??50 mcg 1 sprays, Nares, Both, Daily Gabapentin 300 mg Capsule (gabapentin 300 mg oral capsule) ??600 mg, By Mouth, 3 times a day Lidocaine 5% Topical Patch (Lidocaine 5% Patch) ??1 each, Topically, Daily NaCl 0.9% Flush 3ml (NaCL 0.9% Flush) ??3 mL, IV Push, Every 8 hours Remove Patch (Remove Lidocaine Patch) ??1 each, Topically, Daily at bedtime Venlafaxine 150 mg XR Capsule (venlafaxine 150 mg oral capsule, extended release) ??150 mg, By Mouth, Daily CONTINUOUS: (0) PRN: (13) Acetaminophen 325 mg Tablet (Acetaminophen Tablet) ??650 mg, By Mouth, Every 4 hours Albuterol 90mcg/Inhalation Inhaler HFA (albuterol CFC free 90 mcg/inh inhalation aerosol) ??90 mcg 1 puffs, Inhalation, Every 4 hours Baclofen 10 mg Tablet (baclofen 10 mg oral tablet) ??10 mg, By Mouth, 3 times a day Dextromethorphan-Guaifenesin 20 mg-200 mg/10 mL Liqu UD (Robitussin DM Liquid) ??10 mL, By Mouth, Every 4 hours HydrOXYzine Pamoate 25mg Capsule (hydrOXYzine pamoate 25 mg oral capsule) ??50 mg, By Mouth, 2 times a day Ibuprofen 400 mg Tablet (ibuprofen 400 mg oral tablet) ??400 mg, By Mouth, 3 times a day Lorazepam 1 mg Tablet (LORazepam 1 mg oral tablet) ??1 mg, By Mouth, 3 times a day Melatonin 3 mg Tablet (Melatonin Tablet) ??3 mg, By Mouth, Daily at bedtime MorPHINE 15 mg Tablet (MorPHINE Immediate Release Tablet) ??15 mg, By Mouth, Every 6 hours NaCl 0.9% Flush 3ml (NaCL 0.9% Flush) ??3 mL, IV Push, Every 8 hours Polyethylene Glycol 17 Gm Powder (MiraLax Powder) ??17 Gm 1 pack/packet, By Mouth, Daily Senna 8.6 mg / Docusate 50 mg tablet (Docusate/Senna Tablet) ??1 tablet, By Mouth, 2 times a day Simethicone 80 mg Chewable Tablet (Simethicone Tablet) ??80 mg, Chew, 3 times a day ? Vaccinations and Immunoprophylaxis influenza virus vaccine, inactivated: 0.5 Unknown (09/23/17 07:00:00) influenza virus vaccine, inactivated: 0.5 Unknown (08/16/14 08:00:00) pneumococcal 23-valent vaccine: 0 Unknown (12/16/21 07:00:00) Rabies vaccine,purified chick embryo: 1 Unknown (09/06/22 08:00:00) SARS-CoV-2 mRNA (paul) vax: 30 mcg (10/17/22 14:39:00) tetanus/diphtheria/pertussis, acel(Tdap): 0.5 Unknown (09/06/22 08:00:00) tetanus/diphtheria/pertussis, acel(Tdap): 0 Unknown (12/16/21 07:00:00) ?? Durable Medical Equipment Discharge recommendations: Rehab (10/18/22) Name of Agency #1: [facility] (10/15/22) Service Categories #1: Occupational Therapy, Physical Therapy (10/15/22) Service Comments #1: [facility] will contact you within 24-48 hours to set up visits if you do not hear please call (10/15/22) Ambulatory devices needed: Wheelchair (10/18/22) ? Medications Started Ibuprofen 400 mg??3 times a day as required??for mild to moderate pain Famotidine??20 mg 2 times a day Medications Discontinued Lisinopril, amlodipine, metoprolol??were held during hospital stay and will be discontinued on discharge Doses Changed None Allergies Allergies ?(Active and Proposed Allergies Only) NKA? (Severity: Unknown severity, Onset: Unknown) ? PCP Follow-Up/Heads-Up Follow-up with your primary care physician within 1week of discharge. ??Please call their office for appointment Follow-up with [facility]office??in about 1 to 2 days of discharge.?? Please call their office for appointment Hospital Course ?? Ms. Verde is a 57 yo F with PMHx HTN, anxiety, recent right sided seen??humerus fracture (10/14) who attempted to go home with services, though feels that she cannot complete her ADLs, and re-presented to [facility] 10/16 in search of rehab placement.?? She is currently nonweightbearing??status in??her right upper extremity/right arm placed in sling.?? She is to follow-up with [facility]??in about??1 to 2 days of discharge.?? Call their office for appointment disposition.?? She will continue with her baclofen, gabapentin, lidocaine patch,??ibuprofen 40 mg 3 times a day as required for mild to moderate pain.?? GI prophylaxis with famotidine 20 mg twice daily??in rehab. ?? Humerus fracture (S42.309A):??nonweightbearing, sling. F/u [facility] 1-2 weeks (from 10/14, so needs f/u in timeframe of 10/21-10/27),call office for appointment on discharge. ?? CHRONIC MEDICAL CONDITIONS: Anxiety (F41.9):??continue home meds HLD (hyperlipidemia) (E78.5):??noted in hx, not taking statin, check lipids in am, resume if needed HTN (hypertension) (I10):??med rec with multiple antihypertensives without recent fills (lisinopril, metoprolol, amlodipine), normotensive without meds.?? Will discontinue lisinopril, metoprolol, amlodipine on discharge. ?? Quality Measures Code Status: Full Diet: Cardiac DVT PPX: Lovenox SC??during hospital stay for DVT prophylaxis OMN: Discharged to SNF rehab on 10/20/2022. ? Electronically signed: ?? Yeoy Sanchez MD. Objective as mentioned above. ? Measurements?? Height: 160 cm (10/20/22) Weight: 104.6 kg (10/19/22) Dry Weight: 104.6 kg (10/19/22) Body Mass Index:??40.86 kg/m2??Critical (10/19/22) ? Vital Signs?? Temperature: 98 DegF (10/20/22 05:59:00) Temperature Route: Oral (10/20/22 05:59:00) Pulse Rate: 62 bpm (10/20/22 05:59:00) Respiratory Rate: 18 br/min (10/20/22 09:35:00) Systolic Blood Pressure: 130 mm Hg (10/20/22 05:59:00) Diastolic Blood Pressure: 80 mm Hg (10/20/22 05:59:00) Blood pressure sites: Arm, right (10/20/22 05:59:00) Mean Arterial Pressure: 97 mm Hg (10/20/22 05:59:00) Pulse Pressure: 50 mm Hg (10/20/22 05:59:00) Oxygen Saturation: 96 % (10/20/22 05:59:00) Mode of Delivery (Oxygen): Room air (10/20/22 05:59:00) Early Warning Score: 0 (10/20/22 13:12:16) ? Perfusion Assessment Brachial Pulse, Left: Normal (10/19/22 20:30:00) Brachial Pulse, Right: Normal (10/19/22 20:30:00) Cardiovascular: WNL except (10/19/22 20:30:00) Cardiovascular Assessment Status: Unchanged from recorder's assessment (10/19/22 14:59:00) Carotid Pulse, Left: Normal (10/19/22 20:30:00) Carotid Pulse, Right: Normal (10/19/22 20:30:00) Dorsalis Pedis Pulse, Left: Normal (10/19/22 20:30:00) Dorsalis Pedis Pulse, Right: Normal (10/19/22 20:30:00) Radial Pulse, Left: Normal (10/19/22 20:30:00) Radial Pulse, Right: Normal (10/19/22 20:30:00) ? Basic ADLs Ambulatory devices needed: Wheelchair (10/18/22) Feeding Assistance: Independent (10/19/22) Hygiene: Assist, Sabrina/Quinonez care (10/20/22) ? . Physical Exam Constitutional: Alert, in no acute distress. Head EENT: Extraocular muscle movement intact.??Moist mucous membranes.?? Neck: Supple. No JVD. Respiratory: Clear to auscultation. No wheezing or crackles. No use of accessory muscles. Cardiovascular: S1S2 regular. No murmurs, rubs or gallops. Gastrointestinal: Abdomen soft, non-tender, non-distended. Normal bowel sounds. Genitourinary: No CVA tenderness. Extremities:??Right arm in sling, nonweightbearing status Neurologic: AAOx3, Speech normal. No focal neurological deficits. Skin: No rash. Psychiatric: Normal mood and affect Pending Results No Pending Results Follow-Up Appointments Added Follow Up ?Time Frame ?Comments [facility]?1-2 day: call to discuss follow up visit?Call office for follow-up appointment Aliza Paul DO?1 week: call to discuss follow up visit?Call for follow-up appointment. ??Thank you Patient Instructions Follow-up appointments Follow-up with her primary care physician within??1 week of discharge. ??Call their office for appointment Follow-up with [facility]office??in 1 to 2 days of discharge??for further management of her humeral fracture.?? Call??for appointment. ?? Medication changes Stop taking your lisinopril, metoprolol, amlodipine Continue rest of her home medicines as you were doing before. Post Discharge Care Diet: Regular Diet Activity: OOB as Ling ??With Assistance Wound Care: none Code Status: ?? Full Resuscitation Condition: stable Prognosis: Fair Results Discharge Labs BLOOD COUNT & DIFF WBC 6.3 k/mm3 ()?? 10/20/2022 05:17 RBC 4.23 m/mm3 ()?? 10/20/2022 05:17 Hgb 12.2 Gm/dL ()?? 10/20/2022 05:17 Hct 37.4 % ()?? 10/20/2022 05:17 MCV 88.4 femtoliters ()?? 10/20/2022 05:17 MCH 28.8 pg ()?? 10/20/2022 05:17 MCHC 32.6 g/dL (Low)?? 10/20/2022 05:17 Platelet Count 313 k/mm3 ()?? 10/20/2022 05:17 RDW-SD 38.5 femtoliters ()?? 10/20/2022 05:17 MPV 10.3 femtoliters ()?? 10/20/2022 05:17 Nucleated RBC (Automated) 0.0 #/100 WBC'S ()?? 10/20/2022 05:17 Abs. NRBC 0.0 k/mm3 ()?? 10/20/2022 05:17 Abs. Neut 3.1 k/mm3 ()?? 10/20/2022 05:17 Abs. Lymph 2.2 k/mm3 ()?? 10/20/2022 05:17 Abs. Pondera 0.6 k/mm3 ()?? 10/20/2022 05:17 Abs. Eo 0.5 k/mm3 (High)?? 10/20/2022 05:17 Abs. Baso 0.1 k/mm3 ()?? 10/20/2022 05:17 Neut % 48.5 % ()?? 10/20/2022 05:17 Lymph % 34.0 % ()?? 10/20/2022 05:17 Pondera % 9.3 % ()?? 10/20/2022 05:17 Eos % 7.1 % (High)?? 10/20/2022 05:17 Baso % 0.8 % ()?? 10/20/2022 05:17 Imm Gran 0.3 % ()?? 10/20/2022 05:17 Abs. Imm Gran 0.0 k/mm3 ()?? 10/20/2022 05:17 ?? CHEM GENERAL Sodium 140 mmol/L ()?? 10/20/2022 01:29 Potassium 5.2 mmol/L ()?? 10/20/2022 01:29 Chloride 104 mmol/L ()?? 10/20/2022 01:29 Bicarbonate Level 25 mmol/L ()?? 10/20/2022 01:29 Anion Gap 11 ()?? 10/20/2022 01:29 Glucose Level 105 mg/dL (High)?? 10/20/2022 01:29 Glucose, POC 102 mg/dL (High)?? 10/20/2022 12:35 BUN 19 mg/dL ()?? 10/20/2022 01:29 Creatinine-Blood 0.9 mg/dL ()?? 10/20/2022 01:29 Estimated GFR Creatinine 77 ML/MIN/1.73 M2 ()?? 10/20/2022 01:29 Calcium 9.0 mg/dL ()?? 10/20/2022 01:29 Protein, Total 6.0 Gm/dL (Low)?? 10/20/2022 01:29 Albumin 3.6 Gm/dL ()?? 10/20/2022 01:29 AG Ratio 1.5 ()?? 10/20/2022 01:29 Alkaline Phosphatase 71 units/L ()?? 10/20/2022 01:29 AST (SGOT) 16 units/L ()?? 10/20/2022 01:29 ALT (SGPT) 12 units/L ()?? 10/20/2022 01:29 Bilirubin, Total 0.2 mg/dL ()?? 10/20/2022 01:29 ?? HEME OTHER Hold Blue Top SPECIMEN DISCARDED AFTER 4 HOURS. ()?? 10/16/2022 09:20 ? LIPID STUDIES Cholesterol 178 mg/dL ()?? 10/19/2022 04:10 Triglycerides 158 mg/dL (High)?? 10/19/2022 04:10 HDL Cholesterol 37 mg/dL (Low)?? 10/19/2022 04:10 LDL Cholesterol 109 mg/dL ()?? 10/19/2022 04:10 Non HDL Cholesterol 141 mg/dL ()?? 10/19/2022 04:10 ? MISC. CHEMISTRY Hold Green Top SPECIMEN DISCARDED AFTER 1 WEEK ()?? 10/16/2022 09:20 ? TOXICOLOGY/TDM Ethanol, Serum or Plasma NONE DETECTED mg/dL ()?? 10/19/2022 04:10 Barbiturate Screen, Urine POSITIVE (Abnormal)?? 10/16/2022 10:15 Cannabinoid Screen, Urine NONE DETECTED ()?? 10/16/2022 10:15 Cocaine Metabolite Screen, Urine POSITIVE (Abnormal)?? 10/16/2022 10:15 Benzodiazepine Screen, Urine NONE DETECTED ()?? 10/16/2022 10:15 Amphetamine Screen, Urine NONE DETECTED ()?? 10/16/2022 10:15 Opiate Screen, Urine NONE DETECTED ()?? 10/16/2022 10:15 ? VIROLOGY COVID-19 by RT-PCR NEGATIVE ()?? 10/18/2022 08:42 COVID-19 PCR Specimen Source NASAL ()?? 10/19/2022 08:25 COVID-19 PCR Result NEGATIVE ()?? 10/19/2022 08:25 ? Microbiology ?? COVID-19 (Novel Coronavirus), Rapid PCR?? Completed?? Source: Nasal Body Site: Nose Collected Dt/Tm: 10/18/2022 08:46 Last Updated Dt/Tm: 10/18/2022 09:37 COVID-19 (2019 Novel Coronavirus) PCR?? Completed?? Source: Nasal Body Site: Nose Collected Dt/Tm: 10/19/2022 05:01 Last Updated Dt/Tm: 10/20/2022 00:40 ? 40??minutes spent on discharge * Mehran BAI, Patricia: PERFORM, SIGN, VERIFY Event Display: Case Management Discharge Plan Authored Date: [id number] Patient: RITO VERDE Age: 57 years Sex: Female : 1965 Associated Diagnoses: None Author: Mehran BAI, Patricia Discharge Plan Case Management Discharge Plan : Case Management Discharge Plan Data 10/20/2022 14:37 EST Discharge Level of Care at Discharge half-way facility Discharge Nursing Homes/Rehab Facilities [facility] Discharge Transportation Arranged [facility] [address] [facility] Discharge Arranged Transport Date/Time 10/20/2022 17:00 Mode of Transportation Arranged Ambulance Name of Agency #1 [facility] Agency [employer] [employer] # Service Categories #1 Physical Therapy Service Comments #1 You are being discharged to [facility] in [facility] today for short term rehab. * Toña Dowling: MODIFY, PERFORM Event Display: Patient Education/Instruction Authored Date: [id number] Inpatient Adult Discharge Instructions [address] [address] Name: RITO VERDE : 1965 Visit: 10/16/2022 05:49:00 Current Date: 10/20/2022 15:17 Account: [id number] Inpatient Adult Discharge Instructions We would like [...] and their families. Surveys are administered by [employer] ?? If further treatment with your primary care physician or another doctor is recommended, it is important for you to keep the appointment. Call your primary care physician or return to the Emergency Department immediately if your condition worsens, fails to improve, or new symptoms develop. If you need to find a doctor, you can call [facility] for a referral at [phone] or toll free at [phone]) or log in to [email or web address].. ?? You can view and manage your care through the patient portal or by using a health care rigoberto of your choosing. [employer] is a website that allows you to securely view your medical information including your hospital discharge summary, office visit summaries, medications and follow-up visits. You can also request appointments, renew medications, and request access to your medical information using a health care rigoberto of your choosing, or just ask a question. You can enroll at [email or web address] or register during your next office visit. You have been discharged from [facility], Patient Care Unit: S64. If you have any questions regarding these instructions after you leave, please call us and we will be happy to assist you. [facility] Your Care Team Attending Physician Daniel VIERA, Yeyo Discharging Providers Yeyo Sanchez MD Reason for Admission admitted here for uti and broken shoulder was discharged yesterday with recommendation of rehab. Today, patient felt increased weakness and felt she needed to go to rehab so she called ems. States she feels as though she is confused, a&ox4 for ems Your Diagnosis HTN (hypertension) Anxiety Humerus fracture HLD (hyperlipidemia) Tests Performed Below is a partial list of the tests performed during your hospitalization. You may have had other tests and procedures not included in this list. Please discuss all test results with your provider. Alcohol Level Amphetamine Urine Screen Barbiturate Urine Screen Benzodiazepine Urine Screen Cannabinoid Urine Screen Cocaine Urine Screen COMPLETE BLOOD COUNT COVID-19 (2019 Novel Coronavirus) PCR COVID-19 (Novel Coronavirus), Rapid PCR ETHANOL GLUCOSE POC HOLD BLUE TUBE HOLD GREEN TUBE Lipid Panel Opiate Screen Urine Primary Care Provider Aliza Paul DO Advance Directive Health Care Proxy on File Yes - Health Care Proxy No qualifying data available. Discharge Vitals Temperature: 98 DegF Height: 160 cm Pulse Rate: 69 bpm Weight: 104.6 kg Respiratory Rate: 18 br/min Body Mass Index:??40.86 kg/m2??Critical Systolic Blood Pressure: 136 mm Hg Body surface area: 2.16 Diastolic Blood Pressure: 79 mm Hg ?? Oxygen Saturation: 98 % ?? Studies Pending All tests and labs ordered during this hospital stay have been completed unless listed below. Please discuss all pending results with your provider listed above in these instructions. ?? CBC w/ Differential Comprehensive Metabolic Panel What to do next Instructions From Your Doctor Follow-up appointments Follow-up with her primary care physician within??1 week of discharge. ??Call their office for appointment Follow-up with [facility]office??in 1 to 2 days of discharge??for further management of her humeral fracture.?? Call??for appointment. ?? Medication changes Stop taking your lisinopril, metoprolol, amlodipine Continue rest of her home medicines as you were doing before. Discharge Orders Diet:??Regular Diet Activity:??OOB as Ling With Assistance Wound Care:??none Code Status:?? Full Resuscitation Condition:??stable Prognosis:??Fair You Need to Schedule the Following Appointments Follow Up with??[facility] When??Within 1-2 day: call to discuss follow up visit Why: Call office for follow-up appointment Where: [address] [place] [address] [address] [place] [address]- Follow Up with??Aliza Paul DO When??Within 1 week: call to discuss follow up visit Why: Call for follow-up appointment. ??Thank you Where: [address] [place] [address]- Discharge Medications RITO VERDE :1965 Visit Date:10/16/2022 Medications: Please continue your medications until treatment is completed or stopped by your provider. Medications not listed below should be discontinued. Discuss any questions related to medications with your provider. What How Much When Instructions Next Dose New Famotidine (famotidine 20 mg oral tablet) 2 tab(s) Oral Daily 10/21/2022 9AM New Venlafaxine (venlafaxine 150 mg oral capsule, extended release) 1 capsule Oral Daily 10/21/2022 9AM Changed Ibuprofen (ibuprofen 400 mg oral tablet) 1 tab(s) Oral 3 times a day as needed for Pain , Mild NEEDED Unchanged Acetaminophen (acetaminophen 650 mg oral tablet, extended release) 1 tab(s) Oral Twice a day NEEDED FOR PAIN OR FEVER ?? NEEDED - LAST TAKEN 10/20/2022 9:35AM Unchanged Acetaminophen/ Butalbital/ Caffeine (Fioricet Tablet) 2 tab(s) Oral Every 4 hours NEEDED Unchanged Albuterol (Proventil HFA 90 mcg/ inh inhalation aerosol with adapter) 2 puff(s) Inhalation Every 4 hours NEEDED Unchanged Aripiprazole (ARIPiprazole 5 mg oral tablet) 1 tab(s) Oral Daily at Bedtime 10/20/2022 9PM Unchanged Ascorbic Acid (Vitamin C 500 mg oral tablet) 1 tab(s) Oral Daily 10/21/2022 9AM Unchanged Atorvastatin (atorvastatin 20 mg oral tablet) 1 tab(s) Oral Daily 10/20/2022 9PM Unchanged Baclofen (baclofen 10 mg oral tablet) 1 tab(s) Oral 3 times a day as needed for Spasm NEEDED Unchanged Diclofenac Topical (diclofenac 1% topical gel) 2 gram Topically Twice a day 10/20/2022 9PM Unchanged Fluticasone (Flovent HFA 110 mcg/ inh inhalation aerosol) 1 puff(s) Inhalation Twice a day 10/20/2022 9PM Unchanged Gabapentin (gabapentin 600 mg oral tablet) 1 tab(s) Oral 3 times a day 10/20/2022 9PM Unchanged HydrOXYzine (hydrOXYzine pamoate 50 mg oral capsule) 1 capsule Oral Twice a day as needed for as needed for anxiety NEEDED Unchanged Lidocaine Topical (Lidoderm 5% film) 1 patch Topically Daily LEAVE ON FOR 12 HOURS, THEN OFF FOR 12 HOURS DIRECTED. ?? 10/21/2022 9PM Unchanged Miscellaneous Rx (cholecalciferol (vitamin D3) 50 mcg (2,000 unit) capsule) TAKE ONE CAPSULE EVERY DAY ?? 10/21/2022 9AM Unchanged Triamcinolone Nasal (triamcinolone 55 mcg/ inh nasal spray) 2 spray(s) Nares, Both Daily 10/21/2022 9AM ?? What How Much When Comments Stop Taking Amlodipine (amLODIPine 10 mg oral tablet) 1 tab(s) Oral Daily Stop Taking Cephalexin (cephalexin monohydrate 250 mg oral capsule) 1 capsule Oral 4 times a day Duration: 5 Days Stop Taking Clonazepam (KlonoPIN 1 mg oral tablet) 1 tab(s) Oral Twice a day Stop Taking Lisinopril (lisinopril 40 mg oral tablet) 1 tab(s) Oral Daily Stop Taking Metoprolol (Metoprolol Tartrate 100 mg oral tablet) 1 tab(s) Oral Twice a day with meals ?? Stop Taking Oxycodone / Acetaminophen (acetaminophen-oxyCODONE 325 mg-5 mg oral tablet) 1 tab(s) Oral Every 8 hours as needed for Pain , Severe Test Results Below is a partial list of the most recent Laboratory test results done prior to this discharge. You may have had other tests and procedures not included in this list. Please discuss all test resultswith your provider. Alcohol Level (10/16/2022) ???Ethanol, Serum or Plasma - NONE DETECTED Amphetamine Urine Screen (10/16/2022) ???Amphetamine Screen, Urine - NONE DETECTED Barbiturate Urine Screen (10/16/2022) ???Barbiturate Screen, Urine - POSITIVE Benzodiazepine Urine Screen (10/16/2022) ???Benzodiazepine Screen, Urine - NONE DETECTED Cannabinoid Urine Screen (10/16/2022) ???Cannabinoid Screen, Urine - NONE DETECTED Cocaine Urine Screen (10/16/2022) ???Cocaine Metabolite Screen, Urine - POSITIVE COMPLETE BLOOD COUNT (10/19/2022) ???WBC - 6.4 k/mm3???RBC - 4.16 m/mm3???Hgb - 11.9 Gm/dL???Hct - 36.9 %???MCV - 88.7 femtoliters???MCH - 28.6 pg???MCHC - 32.2 g/dL???Platelet Count - 292 k/mm3???RDW-SD - 39.7 femtoliters???MPV - 10.1 femtoliters???Nucleated RBC (Automated) - 0.0 #/100 WBC'S???Abs. NRBC - 0.0 k/mm3 COVID-19 (2019 Novel Coronavirus) PCR (10/19/2022) ???COVID-19 PCR Specimen Source - NASAL???COVID-19 PCR Result - NEGATIVE COVID-19 (Novel Coronavirus), Rapid PCR (10/18/2022) ???COVID-19 by RT-PCR - NEGATIVE ETHANOL (10/19/2022) ???Ethanol, Serum or Plasma - NONE DETECTED GLUCOSE POC (10/20/2022) ???Glucose, POC - 102 mg/dL HOLD BLUE TUBE (10/16/2022) ???Hold Blue Top - SPECIMEN DISCARDED AFTER 4 HOURS. HOLD GREEN TUBE (10/16/2022) ???Hold Green Top - SPECIMEN DISCARDED AFTER 1 WEEK Lipid Panel (10/19/2022) ???Cholesterol - 178 mg/dL???Triglycerides - 158 mg/dL???HDL Cholesterol - 37 mg/dL???LDL Cholesterol - 109 mg/dL???Non HDL Cholesterol - 141 mg/dL Opiate Screen Urine (10/16/2022) ???Opiate Screen, Urine - NONE DETECTED Immunizations This Visit Given Vaccine SaplNDHV-IgF-1 mRNA ([id number]-plejm) vax 10/17/2022 Allergies (NKA means No Known Allergies) NKA Problems Active Problems??(9) Anxiety?? Cerebrovascular disease?? Gastroesophageal reflux disease?? Heart disease?? Hyperlipidemia?? Hypertensive disorder?? left ventricular hypertrophy?? Migraines?? Severe obesity?? Education Materials Below is the list of Educational Leaflet Providered with your Discharge Instructions. Valuables and Belongings I fully understand and agree that [facility] accepts no responsibility for all my personal [...] Review of Valuable and Belonging List: With patient, With witness Date for Pt to Sign Valuables/Belongings: 10/19/22 16:02:00 ?? Other Discharge Information ? Pulmonary Rehab Status?? Pulmonary Rehab Discharge Status?? Respiratory Rate: 18 br/min ? Common Emergency Awareness Tips IS [...] are strongly encouraged to quit. Please call [facility] at [phone] or [phone]) or log in to [email or web address] for referrals to smoking cessation programs. ?? The National Suicide Prevention Hotline is available 31/05 if you or someone you know needs to find a reason to keep living. By calling 1-567-961-[employer] (3466) you'll be connected to a skilled, trained counselor at a crisis center in your area. INPATIENT DISCHARGE INSTRUCTIONS SIGNATURE PAGE RITO VERDE Location:[facility] Registration Date and Time:10/16/2022 05:49 EST Primary Care Physician: Aliza Paul DO, I RITO VERDE, have received the above patient education materials/instructions and have verbalized understanding. If ambulance or transport services are being used I further acknowledge being givena choice of service. ?? If you need to contact me, please call me at this number: . Patient/Compliance Review Officer Name: Patient/Compliance Review Officer Signature: Relationship to Patient: Witness Name/Signature: Date: * Toña Dowling: PERFORM Event Display: Patient Education/Instruction Authored Date: [id number] Inpatient Adult Discharge Instructions [address] [address] Name: RITO VERDE : 1965 Visit: 10/16/2022 05:49:00 Current Date: 10/20/2022 15:13 Account: [id number] Inpatient Adult Discharge Instructions We would like [...] and their families. Surveys are administered by [employer] ?? If further treatment with your primary care physician or another doctor is recommended, it is important for you to keep the appointment. Call your primary care physician or return to the Emergency Department immediately if your condition worsens, fails to improve, or new symptoms develop. If you need to find a doctor, you can call [facility] for a referral at [phone] or toll free at [phone] or log in to [email or web address].. ?? You can view and manage your care through the patient portal or by using a health care rigoberto of your choosing. VisualOn is a website that allows you to securely view your medical information including your hospital discharge summary, office visit summaries, medications and follow-up visits. You can also request appointments, renew medications, and request access to your medical information using a health care rigoberto of your choosing, or just ask a question. You can enroll at [email or web address] or register during your next office visit. You have been discharged from [facility], Patient Care Unit: S64. If you have any questions regarding these instructions after you leave, please call us and we will be happy to assist you. [facility] Your Care Team Attending Physician Yeyo Sanchez MD Discharging Providers Yeyo Sanchez MD Reason for Admission admitted here for uti and broken shoulder was discharged yesterday with recommendation of rehab. Today, patient felt increased weakness and felt she needed to go to rehab so she called ems. States she feels as though she is confused, a&ox4 for ems Your Diagnosis HTN (hypertension) Anxiety Humerus fracture HLD (hyperlipidemia) Tests Performed Below is a partial list of the tests performed during your hospitalization. You may have had other tests and procedures not included in this list. Please discuss all test results with your provider. Alcohol Level Amphetamine Urine Screen Barbiturate Urine Screen Benzodiazepine Urine Screen Cannabinoid Urine Screen Cocaine Urine Screen COMPLETE BLOOD COUNT COVID-19 (2019 Novel Coronavirus) PCR COVID-19 (Novel Coronavirus), Rapid PCR ETHANOL GLUCOSE POC HOLD BLUE TUBE HOLD GREEN TUBE Lipid Panel Opiate Screen Urine Primary Care Provider Aliza Paul DO Advance Directive Health Care Proxy on File Yes - Health Care Proxy No qualifying data available. Discharge Vitals Temperature: 98 DegF Height: 160 cm Pulse Rate: 69 bpm Weight: 104.6 kg Respiratory Rate: 18 br/min Body Mass Index:??40.86 kg/m2??Critical Systolic Blood Pressure: 136 mm Hg Body surface area: 2.16 Diastolic Blood Pressure: 79 mm Hg ?? Oxygen Saturation: 98 % ?? Studies Pending All tests and labs ordered during this hospital stay have been completed unless listed below. Please discuss all pending results with your provider listed above in these instructions. ?? CBC w/ Differential Comprehensive Metabolic Panel What to do next Instructions From Your Doctor Follow-up appointments Follow-up with her primary care physician within??1 week of discharge. ??Call their office for appointment Follow-up with [facility]office??in 1 to 2 days of discharge??for further management of her humeral fracture.?? Call??for appointment. ?? Medication changes Stop taking your lisinopril, metoprolol, amlodipine Continue rest of her home medicines as you were doing before. Discharge Orders Diet:??Regular Diet Activity:??OOB as Ling With Assistance Wound Care:??none Code Status:?? Full Resuscitation Condition:??stable Prognosis:??Fair You Need to Schedule the Following Appointments Follow Up with??[facility] When??Within 1-2 day: call to discuss follow up visit Why: Call office for follow-up appointment Where: [address] [place] [address] [address] [place] [address]- Follow Up with??Aliza Paul DO When??Within 1 week: call to discuss follow up visit Why: Call for follow-up appointment. ??Thank you Where: [address] [place] [address]- Discharge Medications RITO VERDE :1965 Visit Date:10/16/2022 Medications: Please continue your medications until treatment is completed or stopped by your provider. Medications not listed below should be discontinued. Discuss any questions related to medications with your provider. What How Much When Instructions Next Dose New Famotidine (famotidine 20 mg oral tablet) 2 tab(s) Oral Daily New Venlafaxine (venlafaxine 150 mg oral capsule, extended release) 1 capsule Oral Daily Changed Ibuprofen (ibuprofen 400 mg oral tablet) 1 tab(s) Oral 3 times a day as needed for Pain , Mild Unchanged Acetaminophen (acetaminophen 650 mg oral tablet, extended release) 1 tab(s) Oral Twice a day NEEDED FOR PAIN OR FEVER ?? Unchanged Acetaminophen/ Butalbital/ Caffeine (Fioricet Tablet) 2 tab(s) Oral Every 4 hours Unchanged Albuterol (Proventil HFA 90 mcg/ inh inhalation aerosol with adapter) 2 puff(s) Inhalation Every 4 hours Unchanged Aripiprazole (ARIPiprazole 5 mg oral tablet) 1 tab(s) Oral Daily at Bedtime Unchanged Ascorbic Acid (Vitamin C 500 mg oral tablet) 1 tab(s) Oral Daily Unchanged Atorvastatin (atorvastatin 20 mg oral tablet) 1 tab(s) Oral Daily Unchanged Baclofen (baclofen 10 mg oral tablet) 1 tab(s) Oral 3 times a day as needed for Spasm Unchanged Diclofenac Topical (diclofenac 1% topical gel) 2 gram Topically Twice a day Unchanged Fluticasone (Flovent HFA 110 mcg/ inh inhalation aerosol) 1 puff(s) Inhalation Twice a day Unchanged Gabapentin (gabapentin 600 mg oral tablet) 1 tab(s) Oral 3 times a day Unchanged HydrOXYzine (hydrOXYzine pamoate 50 mg oral capsule) 1 capsule Oral Twice a day as needed for as needed for anxiety Unchanged Lidocaine Topical (Lidoderm 5% film) 1 patch Topically Daily LEAVE ON FOR 12 HOURS, THEN OFF FOR 12 HOURS DIRECTED. ?? Unchanged Miscellaneous Rx (cholecalciferol (vitamin D3) 50 mcg (2,000 unit) capsule) TAKE ONE CAPSULE EVERY DAY ?? Unchanged Triamcinolone Nasal (triamcinolone 55 mcg/ inh nasal spray) 2 spray(s) Nares, Both Daily ?? What How Much When Comments Stop Taking Amlodipine (amLODIPine 10 mg oral tablet) 1 tab(s) Oral Daily Stop Taking Cephalexin (cephalexin monohydrate 250 mg oral capsule) 1 capsule Oral 4 times a day Duration: 5 Days Stop Taking Clonazepam (KlonoPIN 1 mg oral tablet) 1 tab(s) Oral Twice a day Stop Taking Lisinopril (lisinopril 40 mg oral tablet) 1 tab(s) Oral Daily Stop Taking Metoprolol (Metoprolol Tartrate 100 mg oral tablet) 1 tab(s) Oral Twice a day with meals ?? Stop Taking Oxycodone / Acetaminophen (acetaminophen-oxyCODONE 325 mg-5 mg oral tablet) 1 tab(s) Oral Every 8 hours as needed for Pain , Severe Test Results Below is a partial list of the most recent Laboratory test results done prior to this discharge. You may have had other tests and procedures not included in this list. Please discuss all test resultswith your provider. Alcohol Level (10/16/2022) ???Ethanol, Serum or Plasma - NONE DETECTED Amphetamine Urine Screen (10/16/2022) ???Amphetamine Screen, Urine - NONE DETECTED Barbiturate Urine Screen (10/16/2022) ???Barbiturate Screen, Urine - POSITIVE Benzodiazepine Urine Screen (10/16/2022) ???Benzodiazepine Screen, Urine - NONE DETECTED Cannabinoid Urine Screen (10/16/2022) ???Cannabinoid Screen, Urine - NONE DETECTED Cocaine Urine Screen (10/16/2022) ???Cocaine Metabolite Screen, Urine - POSITIVE COMPLETE BLOOD COUNT (10/19/2022) ???WBC - 6.4 k/mm3???RBC - 4.16 m/mm3???Hgb - 11.9 Gm/dL???Hct - 36.9 %???MCV - 88.7 femtoliters???MCH - 28.6 pg???MCHC - 32.2 g/dL???Platelet Count - 292 k/mm3???RDW-SD - 39.7 femtoliters???MPV - 10.1 femtoliters???Nucleated RBC (Automated) - 0.0 #/100 WBC'S???Abs. NRBC - 0.0 k/mm3 COVID-19 (2019 Novel Coronavirus) PCR (10/19/2022) ???COVID-19 PCR Specimen Source - NASAL???COVID-19 PCR Result - NEGATIVE COVID-19 (Novel Coronavirus), Rapid PCR (10/18/2022) ???COVID-19 by RT-PCR - NEGATIVE ETHANOL (10/19/2022) ???Ethanol, Serum or Plasma - NONE DETECTED GLUCOSE POC (10/20/2022) ???Glucose, POC - 102 mg/dL HOLD BLUE TUBE (10/16/2022) ???Hold Blue Top - SPECIMEN DISCARDED AFTER 4 HOURS. HOLD GREEN TUBE (10/16/2022) ???Hold Green Top - SPECIMEN DISCARDED AFTER 1 WEEK Lipid Panel (10/19/2022) ???Cholesterol - 178 mg/dL???Triglycerides - 158 mg/dL???HDL Cholesterol - 37 mg/dL???LDL Cholesterol - 109 mg/dL???Non HDL Cholesterol - 141 mg/dL Opiate Screen Urine (10/16/2022) ???Opiate Screen, Urine - NONE DETECTED Immunizations This Visit Given Vaccine [id number] mRNA (paul) vax 10/17/2022 Allergies (NKA means No Known Allergies) NKA Problems Active Problems??(9) Anxiety?? Cerebrovascular disease?? Gastroesophageal reflux disease?? Heart disease?? Hyperlipidemia?? Hypertensive disorder?? left ventricular hypertrophy?? Migraines?? Severe obesity?? Education Materials Below is the list of Educational Leaflet Providered with your Discharge Instructions. Valuables and Belongings I fully understand and agree that [facility] accepts no responsibility for all my personal [...] Review of Valuable and Belonging List: With patient, With witness Date for Pt to Sign Valuables/Belongings: 10/19/22 16:02:00 ?? Other Discharge Information ? Pulmonary Rehab Status?? Pulmonary Rehab Discharge Status?? Respiratory Rate: 18 br/min ? Common Emergency Awareness Tips IS [...] are strongly encouraged to quit. Please call [facility] at [phone] or [phone] ([phone]) or log in to [email or web address] for referrals to smoking cessation programs. ?? The National Suicide Prevention Hotline is available 31/05 if you or someone you know needs to find a reason to keep living. By calling 6-699-389-[employer] (7689) you'll be connected to a skilled, trained counselor at a crisis center in your area. INPATIENT DISCHARGE INSTRUCTIONS SIGNATURE PAGE RITO VERDE Location:[facility] Registration Date and Time:10/16/2022 05:49 EST Primary Care Physician: Aliza Paul DO, I RITO VERDE, have received the above patient education materials/instructions and have verbalized understanding. If ambulance or transport services are being used I further acknowledge being givena choice of service. ?? If you need to contact me, please call me at this number: . Patient/Compliance Review Officer Name: Patient/Compliance Review Officer Signature: Relationship to Patient: Witness Name/Signature: Date: Patient Care team information Care Team Personnel Name: Yohana Coffey RN Position: [facility] RN Member Role: Primary Care Nurse Name: Oscar Velasquez RN Position: [facility] RN Member Role: Primary Care Nurse Name: Aliza Paul DO Position: [facility] Outreach Member Role: PCP Address: Address: [address] [place] [address] Name: Sd ROBLERO Attending Position: [facility] ED Medicine MD Name: Darrell Victor Position: [facility] ED RN W/OE and Tasks Member Role: Patient Care Provider Care Team Related Persons Name: ENID GUILLERMO Address: home [address] Name: JACLYN GARRIDO Address: home [place], [place] Name: LB PELAYO Address: home [address] [place] [address] [address] [place], [place]
--- OUTSIDE RECORDS SUMMARY | 2024-06-11 16:33 | XMS_ITS | Continuity of Care Document ---
Author Organization [facility] y Address [address] [place] [address] [address]año, [address] [place] [address]- Care Team Providers Care Neon Technician Name Role Phone Aliza Paul DO Primary Care Physician Encounter [facility] Date(s): 03/27/24 - 04/26/24 [facility] [address] [place] [address] Drive [address] [place] [address]- Allergies, Adverse Reactions, Alerts No Known Allergies Immunizations Given and Recorded Vaccine Date Status Refusal Reason SARS-CoV-2 mRNA ([id number]) vax 10/17/22 Given Rabies vaccine,purified chick embryo [...] Team Personnel Name: Francesca Galvan RN Position: [facility] RN Member Role: Primary Care Nurse Name: Yohana Coffey RN Position: [facility] RN Member Role: Primary Care Nurse Name: Patricia Beltran RN Position: [facility] RN Member Role: Primary Care Nurse Name: Parvin Lema RN Position: [facility] RN Member Role: Primary Care Nurse Name: Khoa Marcelo RN Position: [facility] RN Member Role: Primary Care Nurse Name: Oscar Velasquez RN Position: [facility] RN Supv Member Role: Primary Care Nurse Name: Nancy Rivera RN Position: [facility] RN Member Role: Primary Care Nurse Name: Ericka Crane RN Position: [facility] RN Member Role: Primary Care Nurse Name: Patricia Han RN Position: [facility] RN Member Role: Primary Care Nurse Name: Angie Green LPN Position: [facility] RN Member Role: Primary Care Nurse Name: Aliza Paul DO Position: [facility] Outreach Member Role: PCP Address: Address: [address] [place] [id number] Name: Kyleigh Blount RN Position: [facility] RN Member Role: Primary Care Nurse Name: Parvin Walton RN Position: [facility] RN Member Role: Primary Care Nurse Name: Mere Vargas RN Position: [facility] RN Member Role: Primary Care Nurse Name: Walter Powell RN Position: [facility] RN Member Role: Primary Care Nurse Name: Ines Plasencia RN Position: [facility] RN Member Role: Primary Care Nurse Name: Joselyn Lafleur RN Position: [facility] RN Member Role: Primary Care Nurse Name: Manan Summers RN Position: [facility] RN Member Role: Primary Care Nurse Name: Tania Sanders RN Position: [facility] RN Member Role: Primary Care Nurse Name: Hattie Weller RN Position: [facility] RN Member Role: Primary Care Nurse Name: Yesika Paris RN Position: [facility] RN Member Role: Primary Care Nurse Name: Janine Carranza RN Position: [facility] RN Member Role: Primary Care Nurse Name: Estefani Sterling RN Position: [facility] RN Member Role: Primary Care Nurse Name: Rosi Mosqueda LPN Position: S RN Member Role: Primary Care Nurse Name: Jessica Booth LPN Position: S RN Member Role: Primary Care Nurse Care Team Related Persons Name: CLEVELAND VERDEY Address: home [address] [place] [address] Name: JACLYN GARRIDO Address: [place] [address] Name: LB PELAYO Address: home [address] [place] [address]
--- OUTSIDE RECORDS SUMMARY | 2024-06-11 16:33 | XMS_ITS | Continuity of Care Document ---
Author Organization [facility] Address [address] [place] [address]- Care Team Providers Care Snowboard Designer Name Role Phone Aliza Paul DO Primary Care Physician [phone] [facility] Date(s): 03/31/24 - 04/30/[address] [address]- Attending Physician: AdmJoseph naidu Admitting Physician: Admtr, Ar8 Referring Physician: Admtr, Ar8 Allergies, Adverse Reactions, Alerts No Known Allergies Immunizations Given and Recorded Vaccine Date Status Refusal Reason SARS-CoV-2 mRNA ([id number]) vax 10/17/22 Given Rabies vaccine,purified chick embryo [...] Care Nurse Name: Aliza Paul DO Position: [facility] Outreach Member Role: PCP Address: Address: [address] [place] [address] Name: Kyleigh Blount RN Position: [facility] RN Member Role: Primary Care Nurse Name: Parvin Walton RN Position: [facility] RN Member Role: Primary Care Nurse Name: Mere Vargas RN Position: [facility] RN Member [...] Persons Name: JACLYN VERDE Address: home [address] [place] [address] Name: JACLYN GARRIDO Address: [place] [address] Name: LB PELAYO Address: home [address] [place] [address] [address] [place] [address]
--- OUTSIDE RECORDS SUMMARY | 2024-06-11 16:33 | XMS_ITS | Continuity of Care Document ---
Author Organization [facility] ter Address [address] [place] [address]- Care Team Providers Care Display Mechanic Name Role Phone Aliza Paul DO Primary Care Physician Encounter [facility] Date(s): 10/23/22 - 10/23/[address] [address]- Discharge Disposition: A-D/C Walkout Attending Physician: Not on Staff, Attending MD Admitting Physician: Not on Staff, Admitting MD Referring Physician: Not on Staff, Referring MD Allergies, Adverse Reactions, Alerts No Known Allergies Immunizations Given and Recorded Vaccine Date Status Refusal Reason SARS-CoV-2 mRNA ([id number]) vax 10/17/22 Given Rabies vaccine,purified chick embryo [...] [Reference Range]: 1 Oxygen Saturation [94-100 %] 97 % (10/23/22 7:36 AM) Pulse Rate [55-90 bpm] 89 bpm (10/23/22 7:36 AM) Blood Pressure [90-138/55-84 mm Hg] 119/ 79mm Hg (10/23/22 7:36 AM) Respiratory Rate [16-30 br/min] 16 br/mi n (10/23/22 7:36 AM) Temperature [96.8-100.4 DegF] 97.8 DegF (10/23/22 7:36 AM) Mode of Delivery (Oxygen) Room air (10/23/22 7:36 AM) Temperature Route Oral (10/23/22 7:36 AM) Social History Social History Type Response Smoking Status Never (less than 100 in lifetime) entered on: 12/26/20 Sex Patient Care team information Care Team Personnel Name: Yohana Coffey RN Position: [facility] RN Member Role: Primary Care Nurse Name: Oscar Velasquez RN Position: S RN Member Role: Primary Care Nurse Name: Aliza Paul DO Position: [facility] Outreach Member Role: PCP Address: Address: [address] [place] [address]- Care Team Related Persons Name: ENID GUILLERMO Address: home [address] [place] [address] [address] [place] [address] Name: JACLYN GARRIDO Address: [place] [address] Name: LB PELAYO Address: home [address] [place] [address] [address] [place] [address]
--- OUTSIDE RECORDS SUMMARY | 2024-06-11 16:33 | XMS_ITS | Continuity of Care Document ---
Author Organization [facility] ter Address [address] [place] [id number]- Care Team Providers Care Die Maker Trim Name Role Phone Emmett VIERA, Sherif Primary Care Physician Encounter [facility] [place] Date(s): 04/05/24 - 04/12/[address] [address]- Encounter Diagnosis Headache(Final) - 04/05/24 Hypertensive emergency(Final) - 04/05/24 Discharge Disposition: A-Transfer SNF Attending Physician: Yury Gan MD Admitting Physician: Patti Abernathy MD Referring Physician: Not on Staff, Referring MD Allergies, Adverse Reactions, Alerts No Known Allergies Immunizations Given and Recorded Vaccine Date Status Refusal Reason SARS-CoV-2 mRNA ([id number]-eemey) vax 10/17/22 Given Rabies vaccine,purified chick embryo [...] baclofen 10 mg oral tablet 10 mg, Tablet, By Mouth, 04/12/24 9:00:00 EDT Start Date: 04/12/24 Stop Date: 04/12/24 Status: Completed cetirizine 10 mg oral tablet TAKE ONE TABLET BY MOUTH EVERY DAY Start Date: 02/04/24 Status: Ordered Dilaudid 4 mg oral tablet = 8 mg, By Mouth, Every 4 hours, PRN Pain , Moderate, for 10 days, # 60 tablet, 0 Refills, Acute 04/22/24 10:50:00 EDT, 04/12/24 10:50:00 EDT, Tablet, Partial fill upon patient request if the prescription is for a schedule II opioid drug. Start Date: 04/12/24 Stop Date: 04/22/24 Status: Ordered Dilaudid 4 mg oral tablet 8 mg, Tablet, By Mouth, Every 4 hours, PRN for Pain , Moderate, Routine, 04/07/24 16:48:00 EDT Start Date: 04/07/24 Stop Date: 04/12/24 Status: Discontinued famotidine 20 mg oral tablet 40 mg, [...] opioid drug. Start Date: 04/11/24 Status: Ordered gabapentin 300 mg oral capsule 900 mg, Capsule, By Mouth, 04/12/24 9:00:00 EDT Start Date: 04/12/24 Stop Date: 04/12/24 Status: Completed hydrOXYzine pamoate 50 mg oral capsule 1 [...] oral tablet 40 mg, Tablet, By Mouth, 04/12/24 9:00:00 EDT Start Date: 04/12/24 Stop Date: 04/12/24 Status: Completed lisinopril 40 mg oral tablet [...] Active Chronic indwelling Quinonez catheter Confirmed Active Results Radiology Reports * Exam Date Time Procedure Performing Provider Status 04/08/24 6:19 PM MRI Cervical Spine W/O Contrast Chinmay Calderon (Verified) Notes: (MRI Cervical Spine W/O Contrast) Reason For Exam: c5-c7 ACDF 03/20, postop continued pain and radicular symptoms;Other: RESULT: MRI Cervical Spine W/O Contrast MRI Cervical Spine W/O Contrast Reason: Other:; c5-c7 ACDF 13, postop continued pain and radicular symptoms; Clinical Question(s): Cord Hematoma; Order Comment: Please see Reference Text for complete list of contraindications Cord Hematoma TECHNIQUE: MRI of the cervical spine was performed without intravenous contrast utilizing sagittal T1, sagittal T2, and sagittal STIR sequences. Axial sequences were not obtained as the patient couldnot tolerate he's examination and a ventral patient was medicated she was scratching the site of the machine and ended the exam. COMPARISON: MRI 03/14/2024 FINDINGS: LOCALIZER: Additional entire spine T2 localizers were obtained. Sagittal T2-weighted localizer images include the cervical, thoracic, and lumbar spine. No axial images were obtained through the thoracic and lumbar spine, but the sagittal images do provide a limited survey examination. Thoracic spine alignment is preserved. Vertebral body heights are normal. There is a stable T2 hyperintense lesion in the T9 vertebral body. The thoracic canal appears patent. The lumbar spine alignment is unchanged with anterolisthesis of L5 on S1. The vertebral body heights appear maintained. The previously seen lesion at L1 is much less conspicuous due to motion. No mass is identified. There is no evidence of discitis or osteomyelitis. Incompletely imaged sigmoid colonic diverticulosis is noted. ALIGNMENT, VERTEBRAE, MARROW, AND DISCS: This examination is significantly degraded by motion. There is anterior spinal fusion with instrumentation at C5, C6, and C7, new since the prior examination.The alignment appears maintained. Vertebral body heights are preserved. There is no significant marrow signal abnormality within the confines of motion. There is a mild diffuse disc bulge and posterior endplate spurs at C4-C5 deforming the thecal sac. There is disc desiccation at C2-C3, C3-C4, and C7-T1 with a minimal disc bulge at C7-T1. The previously pain prominent this bulges or herniations at C4-C5, C5-C6, and C6-C7 are no longer present. POSTERIOR FOSSA AND CORD: Given the degree of motion and lack of axial images, the signal within the cord cannot be evaluated. The visualized posterior fossa is unremarkable within the confines of motion. PARASPINAL TISSUES: The paraspinal soft tissues are grossly unremarkable. There is no significant prevertebral soft tissue thickening. The craniocervical junction and C1-C2 articulation are preserved. The canal appears improved fat C5-C6 and C6-C7. There is no canal stenosis at C2-C3, C3-C4, C7-T1, or in the upper thoracic spine. Accurate evaluation of the foramina is suboptimal due to motion. IMPRESSION: New anterior spinal fusion with a limitation at C5, C6, and C7. Improved appearance of the canal atC5-C6 and C6-C7 within the confines of motion. Evaluation of the cord is suboptimal due to significant motion and lack of axial images. WSN: [id number] Ordering Physician: Olive Galvan Dictated By: Dixie Brewer MD Dictated Date/Time: 04/09/24 6:52 am Reviewed By: Dixie Brewer MD Signed By: Dixie Brewer MD Signed Date/Time: 04/09/24 6:52 am Transcribed By: SHERON Transcribed Date/Time: 04/09/24 6:40 am * Exam Date Time Procedure Performing Provider Status 04/08/24 6:00 PM MRI Brain W/O Contrast Isiah Calderon; John (Verified) Notes: (MRI Brain W/O Contrast) Reason For Exam: Pain/Trauma RESULT: MRI Brain W/O Contrast MRI Brain W/O Contrast INDICATION: Reason: Pain Trauma; Clinical Question(s): Hematoma; Order Comment: Please see Reference Text for complete list of contraindications Hematoma TECHNIQUE: MRI of the brain was performed without contrast utilizing sagittal T1, axial T2, axial FLAIR, axial SWAN, and axial DWI sequences. COMPARISON: MRI of 01/30/2024, CT head of 04/05/2024. FINDINGS: BRAIN and EXTRA-AXIAL SPACES: The midline structures, including sella, corpus callosum, and craniocervical junction, are unremarkable. There is no mass effect, midline shift, or effacement of the basal cisterns. On diffusion weighted imaging, there are no regions of restricted diffusion to indicatean acute or subacute infarct. Subacute/chronic blood products in the right posterior limb of internal capsule/thalamus are noted, significantly improved since prior MRI of 02/04/2024. Minimal residual T1 hyperintense signal is present. The previously seen mass effect has resolved. There are additional punctate foci of chronic microhemorrhages in the supratentorial and infratentorial brain, unchanged. A small chronic lacunar infarct in the left centrum semiovale is redemonstrated. Additional mild to moderate T2 hyperintense foci are present in the periventricular and subcortical white matter, similar to prior examination. The previously seen FLAIR hyperintensity surrounding the evolving right supratentorial hematoma has resolved. Ventricles, cisterns, and sulci are normal in size and configuration, without hydrocephalus. No abnormal extra-axial fluid collections are seen. Meningeal surfaces are normal. Major intracranial flow voids are present. EXTRACRANIAL SOFT TISSUES: Orbits are unremarkable. There is a small mucous retention cyst or polypin the inferior left maxillary sinus, unchanged. The paranasal sinuses and mastoid air cells are clear. BONES: Marrow signal is preserved. IMPRESSION: 1. Expected evolution of the right internal capsule and thalamic hemorrhage with resolution of the previously seen surrounding vasogenic edema, mass effect, and midline shift. No new acute/subacute infarct, mass, new hemorrhage, or other acute intracranial abnormality. 2. Stable mild to moderate T2/FLAIR hyperintense foci in the white matter, nonspecific but most likely reflecting chronic small vessel disease. 3. Stable additional punctate chronic microhemorrhages, probably hypertensive in origin. If patientis normotensive, cerebral amyloid angiopathy would be the differential. Clinical correlation is advised. WSN: [id number] Ordering Physician: Olive Galvan Dictated By: Dixie Brewer MD Dictated Date/Time: 04/09/24 6:40 am Reviewed By: Dixie Brewer MD Signed By: Dixie Brewer MD Signed Date/Time: 04/09/24 6:40 am Transcribed By: SHERON Transcribed Date/Time: 04/09/24 6:28 am * Exam Date Time Procedure Performing Provider Status 04/05/24 12:47 PM Chest Portable Malloryarnik MeyXochitl; Aut h (Verified) Notes: (Chest Portable) Reason For Exam: Stroke;Other: RESULT: Chest Portable Chest Portable Reason: Other:; Stroke; Clinical Question(s): CHF COMPARISON: Multiple prior chest radiographs with the most recent dated 02/06/2024. FINDINGS: LINES AND TUBES: None. LUNGS AND PLEURA: Minimal low lung volumes. Clear lungs. Normal pulmonary vascularity. No pleural effusion. No pneumothorax. HEART, MEDIASTINUM AND CHARO: Heart is normal in size. Normal mediastinal and hilar contour. BONES AND SOFT TISSUES: No acute abnormality. Mild degenerative change both shoulders. ACDF lower cervical spine. Moderate multilevel degenerative change lower thoracic spine. Several surgical clips are seen in the right axilla. IMPRESSION: No acute abnormality. WSN: [id number] Ordering Physician: Reinaldo Fung Dictated By: Christo Cool MD, V Dictated Date/Time: 04/05/24 12:52 p Reviewed By: Christo Cool MD, V Signed By: Christo Cool MD, V Signed Date/Time: 04/05/24 12:52 pm Transcribed By: SHERON Transcribed Date/Time: 04/05/24 12:51 pm * Exam Date Time Procedure Performing Provider Status 04/05/24 12:[address] Angio Neck Hypera cute Stroke Randa Xiong; John (Verified) Notes: (CT Angio Neck Hyperacute Stroke) Reason For Exam: Aneurysm, neck vessel(s);Other: RESULT: CT Angio Neck Hyperacute Stroke CT Angio Head Hyperacute Stroke, CT Angio Neck Hyperacute Stroke Reason: Headache and elevated blood pressure. TECHNIQUE: CT angiogram of the head and [...] exposure parameters. RADIATION DOSE PARAMETERS: CTDIvol Body: 11.55 mGy, DLP Body: 613 mGy*cm. COMPARISON: Noncontrast CT head performed concurrently. Prior CTs and CTA head and neck, most recently 03/12/2024. MRI of the brain, 02/04/2024. FINDINGS: CTA OF THE NECK: Arch: There is a three vessel aortic arch. There is mild atherosclerotic plaque of the aortic arch,but origins of the supra aortic vessels are patent. Right carotid system: The common carotid and cervical internal carotid arteries are patent. No stenosis (0%) by NASCET criteria. Left carotid system: The common carotid and cervical internal carotid arteries are patent. There iscalcified atherosclerotic plaque at the carotid bifurcation, but no ICA stenosis (0%) by NASCET criteria. There is a co-dominant vertebral artery system. Right vertebral: Patent. Left vertebral: There is probably moderate narrowing at the origin. There is also mild narrowing along the V1 and V3 segments due to calcified plaque. Beyond this, the extracranial vertebral is normal in caliber. Other: Soft tissues and bones: No evidence of lymphadenopathy or mass. The thyroid is unremarkable. Visualized lungs are blurred by motion artifact, without significant superimposed airspace opacity. There has been ACDF C5-C7 utilizing an anterior plate and screws with intervertebral disc spacers. Degenerative changes are seen elsewhere in the spine. CTA OF THE HEAD: Anterior circulation: Mild calcification is seen along the intracranial ICAs without significant narrowing. The anterior cerebral arteries and bilateral M1 and proximal M2 branches are patent and normal in caliber. Posterior circulation: There is mild narrowing of the intradural right vertebral due to calcified plaque. The left vertebral is patent. The basilar artery, superior cerebellar arteries, and posteriorcerebral arteries are patent with mild narrowing of the distal right P2 segment. Small bilateral posterior communicating arteries are noted with infundibulum at the left P-comm origin. Veins: Major dural venous sinuses are patent. Other: Soft tissues and bones: No midline shift or effacement of the basal cisterns. No space-occupying hemorrhage. No acute territorial loss of chakraborty-white matter differentiation. There is hypodensity within the right thalamocapsular region in the area of prior hemorrhage. Orbits are unremarkable. No significant opacification in the paranasal sinuses or mastoid air cells. IMPRESSION: 1. No proximal occlusion or high grade stenosis in the major arteries of the head and neck. 2. Moderate narrowing at the left vertebral artery origin. WSN: [id number] Ordering Physician: Reinaldo Fung Dictated By: Chanelle Nicole MD Dictated Date/Time: 04/05/24 12:58 p Reviewed By: Chanelle Nicole MD Signed By: Chanelle Nicole MD Signed Date/Time: 04/05/24 12:58 pm Transcribed By: SHERON Transcribed Date/Time: 04/05/24 12:28 pm * Exam Date Time Procedure Performing Provider Status 04/05/24 12:[address] Angio Head Hypera cute Stroke Randa Xiong (Verified) Notes: (CT Angio Head Hyperacute Stroke) Reason For Exam: Stroke;Other: RESULT: CT Angio Head Hyperacute Stroke CT Angio Head Hyperacute Stroke, CT Angio Neck Hyperacute Stroke Reason: Headache and elevated blood pressure. TECHNIQUE: CT angiogram of the head and [...] exposure parameters. RADIATION DOSE PARAMETERS: CTDIvol Body: 11.55 mGy, DLP Body: 613 mGy*cm. COMPARISON: Noncontrast CT head performed concurrently. Prior CTs and CTA head and neck, most recently 03/12/2024. MRI of the brain, 02/04/2024. FINDINGS: CTA OF THE NECK: Arch: There is a three vessel aortic arch. There is mild atherosclerotic plaque of the aortic arch,but origins of the supra aortic vessels are patent. Right carotid system: The common carotid and cervical internal carotid arteries are patent. No stenosis (0%) by NASCET criteria. Left carotid system: The common carotid and cervical internal carotid arteries are patent. There iscalcified atherosclerotic plaque at the carotid bifurcation, but no ICA stenosis (0%) by NASCET criteria. There is a co-dominant vertebral artery system. Right vertebral: Patent. Left vertebral: There is probably moderate narrowing at the origin. There is also mild narrowing along the V1 and V3 segments due to calcified plaque. Beyond this, the extracranial vertebral is normal in caliber. Other: Soft tissues and bones: No evidence of lymphadenopathy or mass. The thyroid is unremarkable. Visualized lungs are blurred by motion artifact, without significant superimposed airspace opacity. There has been ACDF C5-C7 utilizing an anterior plate and screws with intervertebral disc spacers. Degenerative changes are seen elsewhere in the spine. CTA OF THE HEAD: Anterior circulation: Mild calcification is seen along the intracranial ICAs without significant narrowing. The anterior cerebral arteries and bilateral M1 and proximal M2 branches are patent and normal in caliber. Posterior circulation: There is mild narrowing of the intradural right vertebral due to calcified plaque. The left vertebral is patent. The basilar artery, superior cerebellar arteries, and posteriorcerebral arteries are patent with mild narrowing of the distal right P2 segment. Small bilateral posterior communicating arteries are noted with infundibulum at the left P-comm origin. Veins: Major dural venous sinuses are patent. Other: Soft tissues and bones: No midline shift or effacement of the basal cisterns. No space-occupying hemorrhage. No acute territorial loss of chakraborty-white matter differentiation. There is hypodensity within the right thalamocapsular region in the area of prior hemorrhage. Orbits are unremarkable. No significant opacification in the paranasal sinuses or mastoid air cells. IMPRESSION: 1. No proximal occlusion or high grade stenosis in the major arteries of the head and neck. 2. Moderate narrowing at the left vertebral artery origin. WSN: [id number] Ordering Physician: Reinaldo Fung Dictated By: Corey VIERA Chanelle Dictated Date/Time: 04/05/24 12:58 p Reviewed By: Chanelle Nicole MD Signed By: Chanelle Nicole MD Signed Date/Time: 04/05/24 12:58 pm Transcribed By: SHERON Transcribed Date/Time: 04/05/24 12:28 pm * Exam Date Time Procedure Performing Provider Status 04/05/24 12:[address] Head-Hyper Acute Stroke Randa Fontaine; John (Verified) Notes: (CT Head-Hyper Acute Stroke) Reason For Exam: Neuro deficit, acute, stroke suspected;Other: RESULT: CT Head-Hyper Acute Stroke CT Head-Hyper Acute Stroke CLINICAL INDICATION: Reason: Other:; Neuro deficit, acute, stroke suspected; Clinical Question(s): Other:; Hematoma Infarction; Order Comment:. PRIOR EXAMS: 03/12/2024.. TECHNIQUE: Head CT was performed without intravenous contrast, using axial technique and reconstructed in axial and coronal plane. Iterative reconstruction techniques are used to optimize dose and image quality. FINDINGS: BRAIN: There is no infarct. There is no intracerebral hemorrhage. There is no mass. VENTRICLES, SULCI, AND CISTERNS: The ventricles and sulci are symmetrical and normal. WHITE MATTER: No white matter abnormality. EXTRA AXIAL SPACES: There is no abnormal epidural, subdural, or subarachnoid blood or fluid. SKULL: There is no skull fracture.. PARANASAL SINUSES: Clear. TEMPORAL BONES: The mastoid air cells are clear, as are the middle ear cavities. IMPRESSION: 1. No acute intracranial abnormality. 2. No skull fracture. WSN: [id number] Ordering Physician: Reinaldo Fung Dictated By: Scar Durham MD Dictated Date/Time: 04/05/24 12:22 p Reviewed By: Scar Durham MD Signed By: Scar Durham MD Signed Date/Time: 04/05/24 12:22 pm Transcribed By: SHERON Transcribed Date/Time: 04/05/24 12:16 pm Vital Signs Most recent to oldest [Reference Range]: 1 2 3 4 Height 161 cm (04/12/24 11:20 AM) 161 cm (04/12/24 7:28 AM) 161 cm (04/12/24 4:19 AM) Weight 88.2 kg (04/05/24 4:16 PM) 88.6 kg (04/05/24 4:00 PM) Oxygen Saturation [94-100 %] 97 % (04/12/24 11:20 AM) 98 % (04/12/24 7:28 AM) 98 % (04/12/24 4:19 AM) Pulse Rate [55-90 bpm] 64 bpm (04/12/24 11:20 AM) 55 bpm (04/12/24 7:28 AM) 55 bpm (04/12/24 4:19 AM) Body Mass Index [18.5-24.99 kg/m2] 34.03 kg/m2 *>HHI* (04/05/24 4:16 PM) Blood Pressure [90-138/55-84 mm Hg] 144/99mm Hg *H* (04/12/24 11:20 AM) 189/86mm Hg *H* (04/12/24 8:44 AM) 189/86mm Hg *H* (04/12/24 7:28 AM) Respiratory Rate [16-30 br/min] 18 br/min (04/12/24 11:20 AM) 18 br/min (04/12/24 11:19 AM) 18 br/min (04/12/24 8:44 AM) 18 br/min (04/12/24 8:44 AM) Temperature [96.8-100.4 DegF] 98.7 DegF (04/12/24 11:20 AM) 98.9 DegF (04/12/24 7:28 AM) 98.4 DegF (04/12/24 4:19 AM) Mode of Delivery (Oxygen) Room air (04/12/24 11:20 AM) Room air (04/12/24 7:28 AM) Room air (04/12/24 4:19 AM) Blood pressure sites Arm, left (04/12/24 11:20 AM) Leg, right (04/12/24 7:28 AM) Arm, right (04/12/24 4:19 AM) Temperature Route Oral (04/12/24 11:20 AM) Oral (04/12/24 7:28 AM) Oral (04/12/24 4:19 AM) Dry Weight 86.5 kg (04/05/24 4:16 PM) Weight Obtained Via Bed scale (5/29/24 4:16 PM) Bed scale (04/05/24 4:00 PM) Dry Weight Obtained Via Patient/family stated (04/05/24 4:16 PM) Social History Social History Type Response [...] Unknown Active Unk nown Consult note * Shannon Crowe DO: MODIFY Shannon Crowe DO: MODIFY, SIGN Shannon Crowe DO: SIGN, MODIFY, SIGN, VERIFY, MODIFY, SIGN Event Display: Consult Authored Date: [id number] Patient: CHERYL VERDE Age: 58 years Sex: Female : 1965 Associated Diagnoses: None Author: Cori Gonzales DO Visit Information Visit Type Pain consultation. Source of History Patient. Medical record. Chief Complaint:: neck/upper back pain. History of Present Illness Patient is a 55-year-old female with a past medical history significant for a hemorrhagic stroke inJanuary 2024, hypertension, hyperlipidemia, urinary retention with chronic Quinonez for 2 years, cervical central stenosis at C5-C6 causing cord compression, and left foraminal stenosis at C6-C7 on MRI s/p ACDF C5-[address] Mcgarry on 03/20/2024. Patient was admitted for neurosurgical admission for progressiv e deconditioning 03/31 to 04/04. On 03/31 she presented from the facility complaining of neck pain radiating to her right upper extremity along with paresthesias said to have been ongoing shortly after surgery. Neurosurgery saw patient and noted she is not having any new neurological deficits. The surgical anterior neck incision was healing without signs of infection or dehiscence. Medrol dose pack was then initiated and the patient was subsequently discharged back to her facility on 04/04. On 04/05 she returned to the hospital with hypertensive emergency in addition to headache and blurred vision. Again neurosurgery was consulted and they recommended no acute neurosurgical treatment. CTA of the head and neck and head CT were all performed and largely similar to previous images from earlier this month, with the exception of moderate left vertebral narrowing that appears new from previous read. APS consulted for medication recommendations. Patient seen at bedside complaining of neck pain radiating down both upper extremities. Also with paresthesia in the left upper extremity. Reports pain in upper back and low back. States that none of the medications are currently helping. Rates pain as 1 0/10. Denies bowel/bladder incontinence, saddle anesthesia. Past Medical History Procedure/Surgical Profile D&C, right salpingo-oophorectomy on 09/05/2013 at 47 Years. section - at term ([id number]) in 1999 at 35 Years. Salpingectomy, complete or partial, unilateral or bilateral (separate procedure) (62579) in 1999 at35 Years. section - at term ([id number]) in 1994 at 30 Years. section - at term ([id number]) in 1992 at 28 Years. hand surgery. Problem list All Problems Anxiety / SNOMED CT 76634296 / Confirmed Cerebrovascular disease / SNOMED CT 152909272 / Confirmed Chronic indwelling Quinonez catheter / SNOMED CT 1259682662 / Confirmed Gastroesophageal reflux disease / SNOMED CT 439450018 / Confirmed Heart disease / SNOMED CT 18659739 / Confirmed History of cervical discectomy / SNOMED CT 4133543343 / Confirmed History of stroke with residual deficit / SNOMED CT 1406151037 / Confirmed HLD (hyperlipidemia) / SNOMED CT 35244779 / Confirmed HTN (hypertension) / SNOMED CT 3846406834 / Confirmed Hyperlipidemia / SNOMED CT 17099127 / Confirmed Hypertensive disorder / SNOMED CT 7266204641 / Confirmed left ventricular hypertrophy / Confirmed Migraines / SNOMED CT [id number] / Confirmed Obese class I / SNOMED CT [id number] / Confirmed Allergies Allergic Reactions (Selected) NKA Physical Examination * General and Vital signs: well appearing, in no acute distress, alert and oriented x3 * HEENT: head normocephalic, atraumatic, sclerae are anicteric * Pulmonary: speaking full sentences, non labored breathing * Cardiac: regular rate and rhythm * Skin: warm and well perfused * Neuro: ~ Cranial nerve exam: cranial nerves 2-12 grossly nonfocal * Musculoskeletal: ROM CERVICAL: Forward Flexion: Normal Extension:Normal Lateral ROM, bilaterally: Normal (-) Midline Tenderness (+) Paracervical muscles tenderness + trapezius muscle tenderness + rhomboid muscle tenderness (-) facet pain Spurling test: neg b/l MOTOR: (MMT 0 - 5/ 5) R L 5 5 Deltoid (C5) 5 5 Biceps (C5/6) 5 5 Triceps (C7) 5 5 Wrist Ext (C7) 5 5 Wrist Flex (C8) 5 5 Finger Abd (T1) 5 5 Proj Mgr MOTOR: (MMT 0 - 5/ 5) R L Hip Flex (L1-3) at least 4/5 5 5 Knee Ext (L2-4) 5 5 Foot Dorsiflex (L4) 5 5 Foot Plantarflex (S1) SENSORY DERMATOMES: (2=normal, 1=paresthesia, 0=absent): R L 2 2 C4 2 1 C5 2 1 C6 2 1 C7 2 2 C8 2 2 T1 SENSORY DERMATOMES: ( 3=hyperesthesias, 2=normal, 1=paresthesia, 0=absent): R L 2 2 L1 2 2 L2 2 2 L3 2 2 L4 2 2 L5 2 2 S1 Neg Neg Turner's sign No appreciable clonus b/l lower extremity Results Review Results Today's Results : ALL RESULT SECTIONS 04/07/2024 7:32 EDT WBC 13.4 k/mm3 H RBC 4.76 m/mm3 Hgb 13.7 Gm/dL Hct 42.0 % MCV 88.2 femtoliters MCH 28.8 pg MCHC 32.6 g/dL L Platelet Count 402 k/mm3 RDW-SD 40.1 femtoliters MPV 9.7 femtoliters Nucleated RBC (Automated) 0.0 #/100 WBC'S Abs. NRBC 0.0 k/mm3 Sodium 139 mmol/L Potassium 4.6 mmol/L Chloride 106 mmol/L Bicarbonate Level 25 mmol/L Anion Gap 8 Glucose Level 115 mg/dL H BUN 21 mg/dL H Creatinine-Blood 0.67 mg/dL Estimated GFR Creatinine 101 ML/MIN/1.73 M2 Calcium 9.3 mg/dL Phosphorus 3.3 mg/dL Magnesium 2.1 mg/dL Vital SignsTemperature : Temperature 04/07/2024 11:20 EDT Temperature 97.5 DegF 04/07/2024 7:28 EDT Temperature 98.5 DegF 04/07/2024 3:37 EDT Temperature 97.4 DegF 04/06/2024 23:00 EDT Temperature 97.7 DegF 04/06/2024 19:00 EDT Temperature 97.7 DegF 04/06/2024 15:00 EDT Temperature 97.7 DegF 04/06/2024 14:00 EDT Temperature 99 DegF 04/06/2024 10:00 EDT Temperature 97.7 DegF 04/06/2024 6:00 EDT Temperature 98.0 DegF 04/06/2024 2:00 EDT Temperature 97.4 DegF Heart Rate Monitored : Heart Rate Monitored 04/06/2024 13:00 EDT Heart Rate Monitored 75 bpm Pulse Rate : Pulse Rate 04/07/2024 11:20 EDT Pulse Rate 62 bpm 04/07/2024 7:28 EDT Pulse Rate 58 bpm 04/07/2024 3:37 EDT Pulse Rate 62 bpm 04/06/2024 23:00 EDT Pulse Rate 51 bpm L 04/06/2024 19:00 EDT Pulse Rate 61 bpm 04/06/2024 15:00 EDT Pulse Rate 57 bpm 04/06/2024 14:00 EDT Pulse Rate 61 bpm 04/06/2024 10:00 EDT Pulse Rate 66 bpm 04/06/2024 6:00 EDT Pulse Rate 65 bpm 04/06/2024 4:25 EDT Pulse Rate 50 bpm L 04/06/2024 4:07 EDT Pulse Rate 52 bpm L 04/06/2024 3:03 EDT Pulse Rate 47 bpm L 04/06/2024 2:35 EDT Pulse Rate 49 bpm L (Modified) 04/06/2024 2:00 EDT Pulse Rate 97 bpm H 04/06/2024 1:10 EDT Pulse Rate 49 bpm L 04/06/2024 0:05 EDT Pulse Rate 54 bpm L Respiratory Rate : Respiratory Rate 04/07/2024 14:18 EDT Respiratory Rate 18 br/min 04/07/2024 11:44 EDT Respiratory Rate 16 br/min 04/07/2024 11:20 EDT Respiratory Rate 18 br/min 04/07/2024 9:10 EDT Respiratory Rate 16 br/min Respiratory Rate 16 br/min Respiratory Rate 16 br/min 04/07/2024 8:10 EDT Respiratory Rate 18 br/min 04/07/2024 8:09 EDT Respiratory Rate 18 br/min 04/07/2024 7:28 EDT Respiratory Rate 16 br/min 04/07/2024 6:48 EDT Respiratory Rate Not Done: previous shift did not document (Not Done) Respiratory Rate Not Done: previous shift did not document (Not Done) Respiratory Rate Not Done: previous shift did not document (Not Done) 04/07/2024 3:59 EDT Respiratory Rate Not Done: Patient Sleeping (Not Done) 04/07/2024 3:37 EDT Respiratory Rate 16 br/min 04/07/2024 2:59 EDT Respiratory Rate 18 br/min 04/06/2024 23:00 EDT Respiratory Rate 18 br/min 04/06/2024 20:55 EDT Respiratory Rate Not Done: Patient Sleeping (Not Done) Respiratory Rate Not Done: Patient Sleeping (Not Done) 04/06/2024 19:55 EDT Respiratory Rate 18 br/min 04/06/2024 17:58 EDT Respiratory Rate 18 br/min Respiratory Rate 18 br/min 04/06/2024 17:54 EDT Respiratory Rate 18 br/min 04/06/2024 16:58 EDT Respiratory Rate 18 br/min 04/06/2024 16:54 EDT Respiratory Rate 18 br/min 04/06/2024 15:00 EDT Respiratory Rate 18 br/min 04/06/2024 14:29 EDT Respiratory Rate 19 br/min 04/06/2024 14:28 EDT Respiratory Rate 19 br/min Respiratory Rate 19 br/min 04/06/2024 14:00 EDT Respiratory Rate 15 br/min L 04/06/2024 13:29 EDT Respiratory Rate 17 br/min 04/06/2024 13:28 EDT Respiratory Rate 13 br/min L 04/06/2024 13:00 EDT Respiratory Rate 20 br/min 04/06/2024 12:00 EDT Respiratory Rate 14 br/min L 04/06/2024 10:20 EDT Respiratory Rate 16 br/min Respiratory Rate 16 br/min Respiratory Rate 16 br/min 04/06/2024 10:00 EDT Respiratory Rate 15 br/min L 04/06/2024 9:20 EDT Respiratory Rate 19 br/min Respiratory Rate 19 br/min 04/06/2024 8:00 EDT Respiratory Rate 21 br/min 04/06/2024 6:00 EDT Respiratory Rate 14 br/min L 04/06/2024 4:29 EDT Respiratory Rate 16 br/min 04/06/2024 4:25 EDT Respiratory Rate 11 br/min L 04/06/2024 4:07 EDT Respiratory Rate 9 br/min L 04/06/2024 3:59 EDT Respiratory Rate 18 br/min 04/06/2024 3:03 EDT Respiratory Rate 13 br/min L 04/06/2024 2:35 EDT Respiratory Rate 14 br/min L 04/06/2024 2:00 EDT Respiratory Rate 18 br/min SBP/DBP Cuff : SBP/DBP Cuff 04/07/2024 11:20 EDT Systolic Blood Pressure 103 mm Hg Diastolic Blood Pressure 63 mm Hg 04/07/2024 8:10 EDT Systolic Blood Pressure 134 mm Hg Diastolic Blood Pressure 76 mm Hg 04/07/2024 7:28 EDT Systolic Blood Pressure 134 mm Hg Diastolic Blood Pressure 76 mm Hg 04/07/2024 3:37 EDT Systolic Blood Pressure 122 mm Hg Diastolic Blood Pressure 81 mm Hg 04/06/2024 23:00 EDT Systolic Blood Pressure 134 mm Hg Diastolic Blood Pressure 79 mm Hg 04/06/2024 19:00 EDT Systolic Blood Pressure 125 mm Hg Diastolic Blood Pressure 79 mm Hg 04/06/2024 15:00 EDT Systolic Blood Pressure 129 mm Hg Diastolic Blood Pressure 80 mm Hg 04/06/2024 14:00 EDT Systolic Blood Pressure 114 mm Hg Diastolic Blood Pressure 64 mm Hg 04/06/2024 12:00 EDT Systolic Blood Pressure 118 mm Hg Diastolic Blood Pressure 61 mm Hg 04/06/2024 10:00 EDT Systolic Blood Pressure 129 mm Hg Diastolic Blood Pressure 71 mm Hg 04/06/2024 9:20 EDT Systolic Blood Pressure 147 mm Hg H Diastolic Blood Pressure 86 mm Hg H 04/06/2024 9:00 EDT Systolic Blood Pressure Not Done: Holding per MD order (Not Done) Diastolic Blood Pressure Not Done: Holding per MD order (Not Done) 04/06/2024 8:00 EDT Systolic Blood Pressure 131 mm Hg Diastolic Blood Pressure 94 mm Hg H 04/06/2024 6:00 EDT Systolic Blood Pressure 148 mm Hg H Diastolic Blood Pressure 96 mm Hg H 04/06/2024 4:25 EDT Systolic Blood Pressure 147 mm Hg H Diastolic Blood Pressure 86 mm Hg H 04/06/2024 4:07 EDT Systolic Blood Pressure 167 mm Hg H Diastolic Blood Pressure 94 mm Hg H 04/06/2024 3:03 EDT Systolic Blood Pressure 153 mm Hg H Diastolic Blood Pressure 84 mm Hg 04/06/2024 2:35 EDT Systolic Blood Pressure 136 mm Hg Diastolic Blood Pressure 78 mm Hg 04/06/2024 2:00 EDT Systolic Blood Pressure 112 mm Hg Diastolic Blood Pressure 69 mm Hg 04/06/2024 1:37 EDT Systolic Blood Pressure 99 mm Hg Diastolic Blood Pressure 66 mm Hg 04/06/2024 1:10 EDT Systolic Blood Pressure 84 mm Hg L Diastolic Blood Pressure 53 mm Hg L 04/06/2024 0:05 EDT Systolic Blood Pressure 77 mm Hg L Diastolic Blood Pressure 50 mm Hg L O2 Sat : Oxygen Saturation 04/07/2024 11:20 EDT Oxygen Saturation 99 % 04/07/2024 7:28 EDT Oxygen Saturation 100 % 04/07/2024 3:37 EDT Oxygen Saturation 97 % 04/06/2024 23:00 EDT Oxygen Saturation 100 % 04/06/2024 19:00 EDT Oxygen Saturation 97 % 04/06/2024 15:00 EDT Oxygen Saturation 98 % 04/06/2024 14:00 EDT Oxygen Saturation 97 % 04/06/2024 13:00 EDT Oxygen Saturation 97 % 04/06/2024 12:00 EDT Oxygen Saturation 96 % 04/06/2024 10:00 EDT Oxygen Saturation 96 % 04/06/2024 8:00 EDT Oxygen Saturation 99 % 04/06/2024 6:00 EDT Oxygen Saturation 96 % 04/06/2024 4:25 EDT Oxygen Saturation 96 % 04/06/2024 4:07 EDT Oxygen Saturation 94 % 04/06/2024 3:03 EDT Oxygen Saturation 97 % 04/06/2024 2:35 EDT Oxygen Saturation 97 % 04/06/2024 2:00 EDT Oxygen Saturation 97 % 04/06/2024 0:05 EDT Oxygen Saturation 98 % Impression and Plan Patient is a 55-year-old female with a past medical history significant for a hemorrhagic stroke inMar2023, hypertension, hyperlipidemia, urinary retention with chronic Quinonez for 2 years, cervical central stenosis at C5-C6 causing cord compression, and left foraminal stenosis at C6-C7 on MRI s/p ACDF C5-[address] Mcgarry on 03/20/2024. Patient was recently admitted for neurosurgical admission for p rogressive deconditioning 03/31 to 04/04 and discharged back to rehab facility. On 04/05 she returned to the hospital with hypertensive emergency in addition to headache and blurred vision. CTA head andneck/head CT seemed largely similar to the last images from earlier this month except with moderatenarrowing of left vertebral artery. APS consulted for uncontrolled pain. Current pain medication regimen: tylenol 975mg q6h, dexamethasone 4mg QID, gabapentin 600mg TID, tizanidine 4mg TID, venlafaxine XR 75mg, oxycodone 10mg q4h PRN, hydromorphone 0.5mg IV q4h PRN Plan: - Given recent surgery, patient is not a candidate for neuraxial intervention - Consider opioid rotation from oxycodone to PO dilaudid 4mg q4h PRN. If pain is uncontrolled may consider increasing up to 6mg. - Recommend weaning IV dilaudid from q4h PRN to TID PRN - Consider scheduling ibuprofen 600mg q6h if not contraindicated - Consider increasing gabapentin to 900mg TID - Consider increasing tizanidine from 4mg to 6mg - Consider lidoderm patch to upper back Discussed with attending it communications manager, Dr. Crowe. Thank you allowing [facility] to participate in the care of this patient. Please page [phone] with any questions. Attending Attestation: I, Dr. Crowe, have seen and evaluated this patient. I have discussed the case and its management with the fellow and agree with the findings and plan as documented in the fellow???s note. * Fanny Lara: PERFORM Event Display: Consultation Note Authored Date: [id number] Patient: ??DIDKATLYN, CHERYL ? Age:??58 Years?Sex:??Female?:??1965?? History of Present Illness This is a 55-year-old female with a past medical history significant for a hemorrhagic stroke in January 2024,??hypertension, hyperlipidemia,??urinary retention??with chronic Quinonez??for 2 years.?Neurosurgical admission for progressive deconditioning??03/31 to 04/04, for C5-C6 central stenosis and C6-C7 left foraminal stenosis, done by Dr. Mcgarry on 03/20/2024.?? Was discharged to??nursing facility. ??Said to have improved??such that??she is able to ambulate with??moderate assistance.?On 03/31??she presented from the facility??complaining of neck pain radiating to her right upper extremity??along with paresthesias??said to have been??ongoing??shortly after surgery.?Neurosurgery saw patient and??noted she is not having any new neurological deficits. ??The??surgical anterior neck incision washealing without signs of infection??or dehiscence.??Medrol dose pack??was then initiated??and the patient was subsequently discharged back to her facility. ?? On 04/05 she returned to the hospital with hypertensive emergency in addition to headache and blurred vision.?? Again neurosurgery has consulted and they recommended no acute neurosurgical??treatment.?CTA??of the head and neck??and??head CT??were all performed??and largely similar to??previousimages from earlier this month,??with the exception of moderate left??vertebral narrowing??that??appears new??from previous??read.? Upon our bedside examination today the patient??again endorses headache, occasional blurred vision,??neck pain that radiates down both arms??noted to be worse on the left.?? Physical Exam Vitals & Measurements T:??97.5?F?? HR:??62??(Peripheral)?? RR:??18?? BP:??103/63?? SpO2:??99%?? HT:??161??cm?? WT:??88.2??kg?? BMI:??34.03?? Measurements?? Height: 161 cm (04/07/24) Weight: 88.2 kg (04/05/24) Dry Weight: 86.5 kg (04/05/24) Body Mass Index:??34.03 kg/m2??Critical (04/05/24) ? General:??Alert.??Appears Uncomfortable. Psychiatric: Mood:??Normal.?? Pleasant & Cooperative Oriented X 3 ?? HEENT: Cranial Nerves II-XII:??Normal, no central facial droop.?? EOMI.?? Blinks to threat??bilaterally Visual prado:??Full. ?? Visual neglect:??None.?? No extinction to double simultaneous stimulation. No diplopia or disconjugate gaze. ??No nystagmus. ?? Tracks:??Bilaterally ?? Extremities:?? Edema:??None.? Neurologic?? Follows Commands:??1 step well? Memory:??Normal Language:??Normal. Dysarthria:??Moderate??unchanged from previous exams. Dysphonia:??None.? Motor Exam:??Motor strength 4/5 LE, at least 3/5 in upper extremities, largely limited by pain Sensory Exam: light touch??normal??no extinction to double simultaneous stimulation.??_ Coordination Exam: finger to nose??normal, Fine motor coordination??normal. Deep Tendon Reflexes??2+ UEs and absent in LEs somewhat brisk in the UE, similar to previous exams? Assessment and plan?? 55-year-old??female??with recent stroke,??C5-C7 ACDF, back from her??rehab facility??with??hypertensive emergency in addition to headache and blurred vision.?? CTA head and neck/head CT??seemed largely similar to the last images??from??earlier this month.?? Exception of??new remark on CTA neck??that notes moderate??narrowing of left??vertebral??artery.?? The patient denies??symptoms of vertigo ornausea.?No signs of ataxia??on examination.?? It is said that her??pain regimen in which she wasdischarged with??was not??followed??at the facility.?? This is her second admission since her surger y??with the first being??on 03/31.?Neurosurgery consulted gave Medrol dose pack.?Plan to have APS involved if we are unable to provide pain control. ?? Recommendations: Activity:??Encourage ambulation with assistance Bowel Regimen:??Monitor on current regimen Bladder:??Quinonez in place Cognition/psychopharmacology:??Avoid benzos, anticholinergics and antihistaminergics..?? DVT prophylaxis:??Defer to primary ?? Neurology: Neurosurgery has signed off Pain Management:??Dilaudid is unlikely to??help with pain management long-term, I would consider involving APS??at this time??so that we can initiate patient on a??more standard regimen in which she can be discharged back to facility on.?We will need clear communication with facility upon her discharge??on this pain regimen.?? Spasticity:??None ?? Swallow:??No dysphagia. Continue regular texture diet. ?? Current rehab treatment & further recommendations: Patient to continue all??therapy at her rehab facility upon discharge ?? Disposition: Once pain management regimen is??sats and pain is controlled??she can be discharged back to??rehab facility. ?? Code Status:??Full Resuscitation HCP:??Has HCP in [facility] Problem List/Past Medical History Ongoing Anxiety Cerebrovascular disease Chronic indwelling Quinonez catheter Gastroesophageal reflux disease Heart disease History of cervical discectomy History of stroke with residual deficit HLD (hyperlipidemia) HTN (hypertension) Hyperlipidemia Hypertensive disorder Migraines Obese class I Procedure/Surgical History D&C, right salpingo-oophorectomy: 09/05/13 section - at term: 1999 Salpingectomy, complete or partial, unilateral or bilateral (separate procedure): 1999 section - at term: 1994 section - at term: 1992 hand surgery Home Medications Acetaminophen: 975 mg, By Mouth, 3 times a day Albuterol: 2 puffs, Inhalation, Every 4 hours Aripiprazole: 10 mg = 1 tablet, By Mouth, Daily Ascorbic Acid: 500 mg = 1 tablet, By Mouth, Daily Atorvastatin: 20 mg = 1 tablet, By Mouth, Daily Baclofen: 10 mg, By Mouth, 3 times a day, PRN (Spasm) Baclofen: 10 mg, By Mouth, 3 times a day, PRN (Spasm) Cetirizine: TAKE ONE TABLET BY MOUTH EVERY DAY Famotidine: 40 mg = 2 tablet, By Mouth, Daily Gabapentin: 600 mg = 1 tablet, By Mouth, 3 times a day HydrOXYzine: 50 mg = 1 capsule, By Mouth, 2 times a day, PRN (as needed for anxiety) Lidocaine Topical: 1 patch, Topically, Daily, LEAVE ON FOR 12 HOURS, THEN OFF FOR 12 HOURS DIRECTED. Lisinopril: TAKE ONE TABLET EVERY MORNING MethylPREDNISolone: 1 pack/packet, By Mouth, Daily, as directed on package labeling Oxycodone: 5 mg, By Mouth, Every 4 hours, PRN (Pain , Moderate) Polyethylene Glycol 3350: 17 Gm = 1 pack/packet, By Mouth, Daily Senna: 17.2 mg = 2 tablet, By Mouth, Daily Tizanidine: 4 mg, By Mouth, 3 times a day Venlafaxine: 75 mg = 1 capsule, By Mouth, Daily Hospital Medications Medications (22) Active SCHEDULED: (13) Acetaminophen 325 mg Tablet (acetaminophen 325 mg oral tablet) ??975 mg, By Mouth, Every 6 hours Aripiprazole 10mg Tablet (ARIPiprazole 10 mg oral tablet) ??10 mg, By Mouth, Daily Ascorbic Acid 250 mg Tablet (Vitamin C 250 mg oral tablet) ??500 mg, By Mouth, Daily Atorvastatin 20 mg Tablet (atorvastatin 20 mg oral tablet) ??20 mg, By Mouth, Daily Cetirizine 5 mg Tablet (cetirizine 5 mg oral tablet) ??10 mg, By Mouth, Daily Dexamethasone 4 mg Tablet (dexamethasone 4 mg oral tablet) ??4 mg, By Mouth, 4 times a day Famotidine 20 mg Tablet (famotidine 20 mg [...] ??17 Gm 1 pack/packet, By Mouth, Daily Tizanidine 4 mg Tablet (tiZANidine 4 mg oral tablet) ??4 mg, By Mouth, 3 times a day Venlafaxine 37.5 mg XR Capsule (venlafaxine 37.5 mg oral capsule, extended release) ??75 mg, By Mouth, Daily CONTINUOUS: (0) PRN: (9) Albuterol 90mcg/Inhalation Inhaler HFA (Ventolin 90 mcg Inhaler) ??180 mcg 2 puffs, Inhalation, Every 4 hours Baclofen 10 mg Tablet (baclofen 10 mg oral tablet) ??10 mg, By Mouth, 3 times a day Docusate Sodium 100 mg Capsule (Docusate Sodium Capsule) ??100 mg 1 capsule, By Mouth, 2 times a day HydrOXYzine Pamoate 25mg Capsule [...] ??10 mg, By Mouth, Every 4 hours Polyethylene Glycol 17 Gm Powder (MiraLax Powder) ??17 Gm 1 pack/packet, By Mouth, Daily Senna Tablet ??8.6 mg 1 tablet, By Mouth, 2 times a day Lab Results PM&R Labs ?? Tox Screen?? WBC:??13.4 k/mm3??High (04/07/24) Ethanol, Serum or Plasma: NONE DETECTED (02/28/24) Platelet Count: 402 k/mm3 (04/07/24) Barbiturate Screen, Urine: POSITIVE Abnormal (02/28/24) Sodium: 139 mmol/L (04/07/24) Cannabinoid Screen, Urine: NONE DETECTED (02/28/24) BUN:??21 mg/dL??High (04/07/24) Cocaine Metabolite Screen, Urine: NONE DETECTED (02/28/24) Creatinine-Blood: 0.67 mg/dL (04/07/24) Benzodiazepine Screen, Urine: NONE DETECTED (02/28/24) Ethanol, [...] Urine: NONE DETECTED (02/28/24) ?? AST (SGOT): 8 units/L (04/06/24 03:59:00) AST (SGOT): 21 units/L (04/05/24 11:56:00) ALT (SGPT): 11 units/L (04/06/24 03:59:00) ALT (SGPT): 15 units/L (03/12/24 12:07:00) * Jorge L VIERA, Francisco Phillips: PERFORM Event Display: Consultation Note Authored Date: Seen and examined with Fanny as documented in the note. She actually is stronger than when I evaluated her pre-op. Agree with APS consult. She can resume therapy when she returns to rehab--does not need to be seen here unless she has extended stay. Admission evaluation note * Tito VIERA, Rangel Naranjo: MODIFY, PERFORM, MODIFY Event Display: Admission Note Authored Date: Patient: ??DIDKATLYN, CHERYL ? Age:??58 Years?Sex:??Female?:??1965?? Chief Complaint/Reason for Consultation At 9AM this morning she received 40MG of Lisinopril + anxiety medications + 5 Oxycodone. History of Present Illness 55-year-old female, past medical history of??hemorrhagic stroke??(January??2023??with mild residual left-sided weakness)??alongside hypertension, hyperlipidemia,??urinary retention; recent neurosurgical admission??03/31 to 04/04 for??C5-C7??ACDF??and discharged on 04/04.?According to patient she did not receive her nighttime meds at the facility, this morning woke up with??blood pressure in the 240s alongside headache.?? Facility did not send any records of the medications.?? She was reportedly ad ministered??lisinopril at the facility??and EMS was called.?? She was??able to come down to??170s on transport. ? Patient noted to have??headache and hypertension on presentation.?CTA head and neck alongside head CT??were all performed,??no acute findings. ??Urinalysis has been collected.?? BNP was elevated,??potassium was hemolyzed, otherwise blood work unremarkable.??She was ordered for nicardipine drip??in the ED??which was titrated off. ??She is??maintaining blood pressures in the 140s to 160s??at themoment.?? She reports improvement in her headache symptoms. ??Denies fevers, chills,??other complaints??aside from??uncontrolled postoperative neck and shoulder pain. ?? Neurosurgery??was informed of her admission. ??They recommend to resume her??postoperative??medication regimen??from the discharge summary yesterday.?It is not clear that she was actually getting all of her prescribed meds at the facility given the timeline. ??Neurosurgery also recommending involving APS for pain control??if unable to control??pain on the DC regimen.?? They suspect the??leukocytosis related to the newly started Medrol Dosepak, they recommend to continue this however. ? Patient does not know what meds she is meant to be on.?? No records were sent from the facility however??she was discharged yesterday,??we will resume her prior medication plan and modify as appropriate.?? She is a full code per her own wishes. ??Attempted to call the healthcare??proxy at the bedside, no answer. ??Later on I called again??and was able to inform the son??about the admission,??ongoing improvements??and care plan.?? Questions invited and answered. Review of Systems As per HPI, otherwise multipoint ROS performed and negative Objective Measurements?? Height: 161 cm (04/05/24) Weight: 88.2 kg (04/05/24) Dry Weight: 86.5 kg (04/05/24) Body Mass Index:??34.03 kg/m2??Critical (04/05/24) ? Vital Signs?? Temperature: 97.8 DegF (04/05/24 16:16:00) Temperature Route: Oral (04/05/24 16:16:00) Pulse Rate: 67 bpm (04/05/24 16:16:00) Respiratory Rate: 16 br/min (04/05/24 16:16:00) Systolic Blood Pressure:??174 mm Hg??High (04/05/24 16:16:00) Diastolic Blood Pressure:??93 mm Hg??High (04/05/24 16:16:00) Blood pressure sites: Arm, left (04/05/24 16:16:00) Mean Arterial Pressure: 120 mm Hg (04/05/24 16:16:00) Pulse Pressure: 81 mm Hg (04/05/24 16:16:00) Oxygen Saturation: 97 % (04/05/24 16:16:00) Mode of Delivery (Oxygen): Room air (04/05/24 16:16:00) Early Warning Score: 2 (04/05/24 16:21:54) ? Pain Scores 1 - 10 Pain Scale Score: 0 (12:25) ? Elliott Coma Scale Elliott Coma Score: 15 (04/05/24 12:25:00) Motor Response-Adult: Obeys commands (04/05/24 12:25:00) Response Eye Opening: Spontaneously (04/05/24 12:25:00) Verbal Response-Adult: Oriented and converses (04/05/24 12:25:00) ?? Basic ADLs Activity Assistance: Two person assistance (04/05/24) ? Mobility & Ambulation Level Mobility & Ambulation Level Activity Assistance: Two person assistance (04/05/24) Activity Status ADL: Reposition every 2 hours (04/05/24) ? Physical Exam Constitutional: Alert, in no acute distress. Head EENT: PERRL.??NCAT. Neck: Supple. No obvious LAD. Respiratory: CTAB. No use of accessory muscles. Cardiovascular: S1S2 present. No obvious JVD. Gastrointestinal: Abdomen soft, non-tender, non-distended. Bowel sounds present. Genitourinary: No CVA tenderness. Genital exam deferred. Extremities: No lower extremity pitting??edema. No cyanosis or clubbing. Neurologic: Alert, generally appropriate. Speech normal. No gross focal neurological deficits. Assessment/Plan Diagnoses Chronic indwelling Quinonez catheter ??(Z97.8) HLD (hyperlipidemia) ??(E78.5) HTN (hypertension) ??(I10) Headache ??(R51.9) History of cervical discectomy ??(Z98.890) History of stroke with residual deficit ??(I69.30) History of urinary retention ??(Z87.898) Leukocytosis (D72.829) Hypertensive emergency ??(I16.1) Neck and shoulder pain ??(M54.2) Taking medication for chronic disease ??(R69) ?? Assessment:??55-year-old female, past medical history of??hemorrhagic stroke??(January??2023??with mild residual left-sided weakness)??alongside hypertension, hyperlipidemia,??urinary retention; recentneurosurgical admission??03/31 to 04/04 for??C5-C7??ACDF??and discharged on 04/04.?According to patient she did not receive her nighttime meds at the facility, this morning woke up with??blood pressure in the 240s alongside headache.??Facility did not send any records of the medications.??She was reportedly administered??lisinopril at the facility??and EMS was called.??She was??able to come down to??170s on transport.??Patient is complaining of??neck pain, it is not clear that??she has been getting the appropriate pain meds??at the??facility,??spoke to Neurosurgery who recommends to administer her prescribed regimen and??can involve APS if it??does not work. ?? Hypertensive emergency (I16.1) Grouped with??HTN (hypertension) (I10) ?? Patient was discharged to rehab??1 day [employer],??reports she did not get any of her nighttime meds and??woke up with severe pain and??headache, blood pressure of 240.??She was administered??lisinopril??and oxycodone??per ED record and was??sent to hospital.??She was briefly treated with??nicardipinedrip??in the ED but appears to have stabilized. ?? -Admit to inpatient -Monitor on [facility] overnight, nicardipine drip??as needed to keep??below 180 -If stable off of drip tomorrow,??can downgrade -Continue home medicine lisinopril??40 -Pain control as below -Consider addition of hydralazine 3 times daily if unable to control ?? Headache (R51.9):? In the setting of uncontrolled hypertension, reported to be improving.??Head CT is negative. ? Leukocytosis (D72.829) Unclear whether patient was receiving Medrol Dosepak or not.?? No infectious symptoms. -Follow-up urinalysis -Continue to monitor??for infectious symptoms, hold off on empiric antibiotics ?? History of cervical discectomy (Z98.890) Grouped with??Neck and shoulder pain (M54.2) ?? Recent neurosurgical admission??03/31 to 04/04 for??C5-C7??ACDF??and discharged on 04/04.?She was meant to be discharged on??numerous medications??but is not clear that she has received them. ?? -ED Pharmacy/pharmacy med tech to confirm med history from facility?? -Resume baclofen, tizanidine,??gabapentin??from prior admission/ DC plan -Resume Medrol Dosepak??from discharge plan, ED Ppharmacy to adjust timing??PRN -Tylenol??975 ATC -Oxycodone 10??every 4 for severe pain, 5 for mild pain??as per prior plan -Toradol??x 1 per Neurosurgery (Claudine)??verbal rec -Can give??Dilaudid 0.5 for breakthrough pain ?? History of stroke with residual deficit (I69.30):? Given??presentation of headache??and history of hemorrhagic stroke,??urgent CT imaging was obtained??on admission which was fortunately negative. -On statin for HLD ?? History of urinary retention (Z87.898) Grouped with??Chronic indwelling Quinonez catheter (Z97.8) Patient with history of??urine retention with chronic Quinonez.??She reports her Quinonez was changed??04/04 on arrival to rehab. ?? -Maintain Quinonez, orders placed,??she will need routine Quinonez change??as outpatient ?? HLD (hyperlipidemia) (E78.5):? -Statin ?? Taking medication for chronic disease (R69):? Patient also on??aripiprazole,??bowel regimen,??cetirizine, famotidine,??hydroxyzine,??venlafaxine -Continue??home meds ?? VTE Prophylaxis:??Boots Code Status:??Full code, confirmed at bedside on admission ?Order Code Status:??Code Status Ordered ?? Ongoing Medical Necessity:??Blood pressure monitoring,??uncontrolled pain Discharge Planning:??Can likely return to rehab in the next 24 to 48 hours.??sound effects manager consulted. ?? Please note, dictation software ([employer]??may have been used in the preparation of this note, and may have generated unintentional errors in speech recognition. If there are any questions going forward, please reach out for clarification. ? Histories Allergies Allergies ?(Active and Proposed Allergies Only) NKA? (Severity: Unknown severity, Onset: Unknown) ? Past Medical History/Problem List Active Problems(13) Anxiety Cerebrovascular disease Chronic indwelling Quinonez catheter Gastroesophageal reflux disease Heart disease History of cervical discectomy History of stroke with residual deficit HLD (hyperlipidemia) HTN (hypertension) Hyperlipidemia Hypertensive disorder Migraines Obese class I ? Past Surgical History D&C, right salpingo-oophorectomy: 09/05/13 section - at term: 1999 Salpingectomy, complete or partial, unilateral or bilateral (separate procedure): 1999 section - at term: 1994 section - at term: 1992 hand surgery ? Social History Alcohol Details:??Use: Current. Substance Abuse Details:??Use: Current. ??Type: Marijuana. Tobacco Details:??Use: Never (less than 100 in lifetime). Electronic Cigarette/Vaping Details:??Electronic Cigarette Use: Never. ? Family History Mother: CAD - Coronary artery disease; Diabetes mellitus type II; Hypertension; Thyroid disease Father: CAD - Coronary artery disease; Diabetes mellitus type II ? [facility] No ?? Medications Home Medications Acetaminophen (acetaminophen 325 mg oral tablet)?975?Milligram?By Mouth?3 times a day Albuterol (Proventil HFA 90 mcg/inh inhalation aerosol with adapter)?2?puff(s)?Inhalation?Every 4 hours Aripiprazole (ARIPiprazole 10 mg oral tablet)?10?Milligram?1?tablet?By Mouth?Daily Ascorbic Acid (Vitamin C 500 mg oral tablet)?1?tab(s)?500?Milligram?By Mouth?Daily Atorvastatin (atorvastatin 20 mg oral tablet)?1?tab(s)?20?Milligram?By Mouth?Daily Baclofen (baclofen 10 mg oral tablet)?10?Milligram?By Mouth?3 times a day?as needed?Spasm Baclofen (baclofen 10 mg oral tablet)?10?Milligram?By Mouth?3 times a day?as needed?for 7?Days?Spasm Cetirizine (cetirizine 10 mg oral tablet)?TAKE ONE [...] mg oral tablet)?TAKE ONE TABLET EVERY MORNING MethylPREDNISolone (Medrol Dosepak 4 mg oral tablet)?1?pack/packet?By Mouth?Daily?for 6?Days?as directed on package labeling Oxycodone (oxyCODONE 5 mg oral tablet)?5?Milligram?By Mouth?Every 4 hours?as needed?for 7?Days?Pain , Moderate Polyethylene Glycol 3350 (MiraLax Powder)?1?pack/packet?17?gram?By Mouth?Daily Senna (senna 187 mg oral tablet)?2?tab(s)?17.2?Milligram?By Mouth?Daily Tizanidine (tiZANidine 4 mg oral tablet)?4?Milligram?By Mouth?3 times a day Venlafaxine (venlafaxine 75 mg oral capsule, extended release)?75?Milligram?1?capsule?By Mouth?Daily ? Inpatient Medications Medications (33) Active SCHEDULED: (21) Acetaminophen 325 mg Tablet (acetaminophen 325 mg oral tablet) ??975 mg, By Mouth, 3 times a day Aripiprazole 10mg Tablet (ARIPiprazole 10 mg oral tablet) ??10 mg, By Mouth, Daily Ascorbic Acid 250 mg Tablet (Vitamin C 250 mg oral tablet) ??500 mg, By Mouth, Daily Atorvastatin 20 mg Tablet (atorvastatin 20 mg oral tablet) ??20 mg, By Mouth, Daily Cetirizine 5 mg Tablet (cetirizine 5 mg oral tablet) ??10 mg, By Mouth, Daily Famotidine 20 mg Tablet (famotidine 20 mg oral tablet) ??40 mg, By Mouth, Daily Gabapentin 300 mg Capsule (gabapentin 300 mg oral capsule) ??600 mg, By Mouth, 3 times a day Ketorolac 30 mg/mL Inj (Ketorolac Inj) ??15 mg 0.5 mL, Intramuscular, Once Lisinopril 20 mg Tablet (lisinopril 20 mg oral tablet) ??40 mg, By Mouth, Daily MethylPREDNISolone 4 mg Tablet (MethylPREDNISolone Tablet) ??8 mg, By Mouth, 2 times a day MethylPREDNISolone 4 mg Tablet (MethylPREDNISolone Tablet) ??4 mg, By Mouth, 2 times a day MethylPREDNISolone 4 mg Tablet (MethylPREDNISolone Tablet) ??4 mg, By Mouth, 3 times a day with meals MethylPREDNISolone 4 mg Tablet (MethylPREDNISolone Tablet) ??8 mg, By Mouth, Daily at bedtime MethylPREDNISolone 4 mg Tablet (MethylPREDNISolone Tablet) ??4 mg, By Mouth, 3 times a day after meals and bedtime MethylPREDNISolone 4 mg Tablet (MethylPREDNISolone Tablet) ??4 mg, By Mouth, 3 times a day MethylPREDNISolone 4 mg Tablet (MethylPREDNISolone Tablet) ??4 mg, By Mouth, 2 times a day MethylPREDNISolone 4 mg Tablet (MethylPREDNISolone Tablet) ??4 mg, By Mouth, Daily NaCl 0.9% Flush 3ml (NaCL 0.9% Flush) ??3 mL, IV Push, Every 8 hours Polyethylene Glycol 17 Gm Powder (MiraLax Powder) ??17 Gm 1 pack/packet, By Mouth, Daily Tizanidine 4 mg Tablet (tiZANidine 4 mg oral tablet) ??4 mg, By Mouth, 3 times a day Venlafaxine 37.5 mg XR Capsule (venlafaxine 37.5 mg oral capsule, extended release) ??75 mg, By Mouth, Daily CONTINUOUS: (1) NICARdipine 2.5 mg/mL Cont IV 25 mg + NaCL 0.9% (250 mL) Cont IV 250 mL (NiCARDipine Cont IV 25 mg + NaCL 0.9% for Titration 250 mL) ??250 mL, IV Infusion PRN: (11) Albuterol 90mcg/Inhalation Inhaler HFA (Ventolin 90 mcg Inhaler) ??180 mcg 2 puffs, Inhalation, Every 4 hours Baclofen 10 mg Tablet (baclofen 10 mg oral tablet) ??10 mg, By Mouth, 3 times a day Docusate Sodium 100 mg Capsule (Docusate Sodium Capsule) ??100 mg 1 capsule, By Mouth, 2 times a day HYDROmorphone 0.5 mg/0.5 mL Inj Syringe (HYDROmorphone Inj) ??0.5 mg 0.5 mL, IV Push [...] ??10 mg, By Mouth, Every 4 hours OxyCODONE 5 mg IR Tablet (oxyCODONE 5 mg oral tablet) ??5 mg, By Mouth, Every 4 hours Polyethylene Glycol 17 Gm Powder (MiraLax Powder) ??17 Gm 1 pack/packet, By Mouth, Daily Senna Tablet ??8.6 mg 1 tablet, By Mouth, 2 times a day ? Vaccinations and Immunoprophylaxis influenza virus vaccine, inactivated: 0.5 Unknown (09/23/17 07:00:00) influenza virus vaccine, inactivated: 0.5 Unknown (08/16/14 08:00:00) pneumococcal 23-valent vaccine: 0 Unknown (12/16/21 07:00:00) Rabies vaccine,purified chick embryo: 1 Unknown (09/06/22 08:00:00) SARS-CoV-2 mRNA (zadihtj-fqul-fjdsf) vax: 30 mcg (10/17/22 14:39:00) tetanus/diphtheria/pertussis, acel(Tdap): 0.5 Unknown (09/06/22 08:00:00) tetanus/diphtheria/pertussis, acel(Tdap): 0 Unknown (12/16/21 07:00:00) ?? Results Recent Labs BLOOD COUNT & DIFF WBC 14.7 k/mm3 (High)?? 04/05/2024 11:56 RBC 4.96 m/mm3 ()?? 04/05/2024 11:56 Hgb 14.4 Gm/dL ()?? 04/05/2024 11:56 Hct 42.9 % ()?? 04/05/2024 11:56 MCV 86.5 femtoliters ()?? 04/05/2024 11:56 MCH 29.0 pg ()?? 04/05/2024 11:56 MCHC 33.6 g/dL ()?? 04/05/2024 11:56 Platelet Count 433 k/mm3 ()?? 04/05/2024 11:56 RDW-SD 39.3 femtoliters ()?? 04/05/2024 11:56 MPV 9.6 femtoliters ()?? 04/05/2024 11:56 Nucleated RBC (Automated) 0.0 #/100 WBC'S ()?? 04/05/2024 11:56 Abs. NRBC 0.0 k/mm3 ()?? 04/05/2024 11:56 Abs. Neut 9.0 k/mm3 (High)?? 04/05/2024 11:56 Abs. Lymph 4.4 k/mm3 (High)?? 04/05/2024 11:56 Abs. [place] 1.2 k/mm3 (High)?? 04/05/2024 11:56 Abs. Eo 0.0 k/mm3 ()?? 04/05/2024 11:56 Abs. Baso 0.0 k/mm3 ()?? 04/05/2024 11:56 Neut % 61.3 % ()?? 04/05/2024 11:56 Lymph % 29.8 % ()?? 04/05/2024 11:56 [place] % 7.8 % ()?? 04/05/2024 11:56 Eos % 0.3 % ()?? 04/05/2024 11:56 Baso % 0.2 % ()?? 04/05/2024 11:56 Imm Gran 0.6 % ()?? 04/05/2024 11:56 Abs. Imm Gran 0.1 k/mm3 ()?? 04/05/2024 11:56 ?? CARDIAC Nt-Probnp 1038 pg/mL (High)?? 04/05/2024 11:56 High Sensitivity Troponin (HSTnT) 10 ng/L ()?? 04/05/2024 11:56 ?? CHEM GENERAL Sodium 144 mmol/L ()?? 04/05/2024 11:56 Potassium HEMOLYZED mmol/L ()?? 04/05/2024 11:56 Chloride 107 mmol/L ()?? 04/05/2024 11:56 Bicarbonate Level 23 mmol/L ()?? 04/05/2024 11:56 Anion Gap 14 ()?? 04/05/2024 11:56 Glucose Level 84 mg/dL ()?? 04/05/2024 11:56 Glucose, POC 74 mg/dL ()?? 04/05/2024 11:54 BUN 20 mg/dL ()?? 04/05/2024 11:56 Creatinine-Blood 0.62 mg/dL ()?? 04/05/2024 11:56 Estimated GFR Creatinine 103 ML/MIN/1.73 M2 ()?? 04/05/2024 11:56 Calcium 9.6 mg/dL ()?? 04/05/2024 11:56 AST (SGOT) 21 units/L ()?? 04/05/2024 11:56 ?? URINE OTHER Est Creatinine Clearance 83.20 mL/min ()?? 04/05/2024 16:21 ? EKG study * Event Display: ECG 12-Lead Authored Date: Please click on pdf link to open report * Event Display: ECG 12-Lead Authored Date: Ventricular Rate: 77 BPM Atrial Rate: 77 BPM P-R Interval: 138 ms QRS Duration: 84 ms Q-T Interval: 392 ms QTC Calculation(Bazett): 443 ms P [place]: 39 degrees R [place]: -36 degrees T [place]: 14 degrees Normal sinus rhythm Left axis deviation Moderate voltage criteria for LVH, may be normal variant ( R in aVL , Gibson product ) Abnormal ECG When compared with ECG of 12-MAR-2024 12:26, T wave amplitude has decreased in Lateral leads Confirmed by RADHIKA HUANG MD ([id number]) on 04/05/2024 5:21:48 PM Plover: RADHIKA HUANG MD Cardiology * Event Display: Cardiac Rhythm Strips Authored Date: * Event Display: Cardiac Rhythm Strips Authored Date: Hospital Progress note * Louise Porras LPN: PERFORM, SIGN, VERIFY Event Display: Progress Note Hospital Authored Date: [id number] Patient: CHERYL VERDE Age: 58 years Sex: Female : 1965 Associated Diagnoses: None Author: Louise Porras LPN Findings Problem Related to Alteration in Cardiac Function (new) : Alteration in Cardiac Function/new 04/11/2024 23:00 EDT Alteration in Cardiac Status Related to Hypertension Goals & Outcomes, Cardiac Status Pt will resume/maintain adequate cardiac output, Pt will resume/maintain adequate hemodynamic status, Pt will resume/maintain adequate respiratory function, Pt will resume/maintain intact neuro function, Pt will maintain adequate GI/ function appropriate for pt, Pt will maintain adequate nutrition status, Pt/caregiver will state understanding of diagnosis, Pt/caregiver will state strategies to reduce risk factors, Pt will state importance of adhering to med regime Cardiac Interventions Implemented Assess/monitor cardiac status, Assess/monitor neuro status, Assess/monitor respiratory status, Assess for tolerance of IV infusions; verify rate & dose, Ensure adequate caloric intake, Monitor & document daily weight, Monitor anticoagulation values, MonitorECG w/administration of antiarrhythmics (CO 13.420), Obtain 12 Lead ECG and CXR as ordered, Prep ptfor treatments & procedures, Teach/encourage deep breath & cough exercises, Teach/encourageuse of incentive spirometer, Team conversation regarding appropriate level of care, Turn & reposition Q2 hours per activity restrictions, Use adjunctive therapies per Standards of Practice Goals/Interventions, Cardiac Yes Cardiac, Problem Start 04/05/2024 18:50 Reviewed Plan with, Cardiac Status Patient Patient Progression, Cardiac Status Patient progressing according to plan . Nursing Data Vital Signs : VITAL SIGNS SECTION 04/12/2024 4:19 EDT Early Warning Score 0.00 04/12/2024 4:19 EDT Temperature 98.4 DegF Temperature Route Oral Pulse Rate 55 bpm Respiratory Rate 17 br/min Systolic Blood Pressure 141 mm Hg H Diastolic Blood Pressure 89 mm Hg H Blood pressure sites Arm, right Mean Arterial Pressure 106 mm Hg Pulse Pressure 52 mm Hg Oxygen Saturation 98 % Mode of Delivery (Oxygen) Room air 04/11/2024 20:58 EDT Respiratory Rate Not Done: Patient Sleeping (Not Done) Respiratory Rate Not Done: Patient Sleeping (Not Done) 04/11/2024 20:14 EDT Early Warning Score 2.00 04/11/2024 20:14 EDT Temperature 97.8 DegF Temperature Route Oral Pulse Rate 63 bpm Respiratory Rate 17 br/min Systolic Blood Pressure 131 mm Hg Diastolic Blood Pressure 77 mm Hg Blood pressure sites Arm, right Mean Arterial Pressure 95 mm Hg Pulse Pressure 54 mm Hg Oxygen Saturation 98 % Mode of Delivery (Oxygen) Room air . Evaluation Assumed care for patiwent @1900. A/Ox2-3. VSS overnight. LSCTA on RA. ABD SNT w/ +BS in all four quadrants. Quinonez catheter draining CYU appropriately. No c/o pain overnight, pt asked for melatonin.. administered PRN melatonin and pt slept all night. Pt resting in bed. All appropriate safety measures remain in place. Hourly checks completed. Plan of care ongoing. See [facility] for biophysical and further assessments.... * Julia WEBER, Fanny Segura: PERFORM Event Display: Progress Note Hospital Authored Date: Patient: ??DIDATO, CHERYL ? Age:??58 Years?Sex:??Female?:??1965?? History of Present Illness Sitting bedside in lounge chair. Looking forward to going back to rehab. Requests that PT see her while she is here to make sure she does not lose the progress??she has made with ambulation.? Reports pain is at 8/10, requesting??nurse for her pain??medications.?? Physical Exam Vitals & Measurements T:??97.7?F?? HR:??55??(Peripheral)?? RR:??18?? RR:??18?? BP:??149/92?? SpO2:??97%?? HT:??161??cm?? WT:??88.2??kg?? BMI:??34.03?? Measurements?? Height: 161 cm (04/11/24) Weight: 88.2 kg (04/05/24) Dry Weight: 86.5 kg (04/05/24) Body Mass Index:??34.03 kg/m2??Critical (04/05/24) ? General:??Alert. No apparent distress although she reported 8/10 pain?? Psychiatric: Mood:??Normal.?? Pleasant & Cooperative Oriented X 3 ?? HEENT: Cranial Nerves II-XII:??Normal, no central facial droop.?? EOMI.??no diplopia or disconjugate gaze. ??No nystagmus. ?? Tracks:??Bilaterally ?? Extremities:?? Edema:??None.?? Passive ROM:??Normal all limbs.? Neurologic?? Follows Commands:??1 step well Language:??Normal. ??Dysarthria:??None. ??Dysphonia:??None.? Motor Exam:??Motor strength at least 4/5 in upper extremities and LLE, difficult positioning in chair but able to sustain some resistance??RLE appeared to be 3/5 on examination but was able to hold full weight on the extremity once standing and lifting the LLE to show me her knee Sensory Exam: light touch??normal??no extinction to double simultaneous stimulation.??_ ?? Mobility Exam:??Sitting balance independent,??sit to stand with close supervision, good use of armsto push off chair into standing position??static stand with close supervision ? Assessment and plan?? 55-year-old??female??with recent stroke, s/p ACDF C5-C7, back from her??rehab facility??with??hypertensive emergency in addition to headache and blurred vision.??Post-operative course was complicatedby constant neck pain with radiation to the upper extremities R>L in addition to paresthesias??for which she was admitted from 03/31-04/04. Neurosurgery re-evaluated, no new neurological findings.??Some improvement with Decadron. ?? Back from rehab facility 04/05 with hypertensive emergency in setting of blurred vision and DOS SANTOS.??CTAhead and neck/head CT??seemed largely similar to the last images??from??earlier this month.?? Exception of??new remark on CTA neck??that notes moderate??narrowing of left??vertebral??artery. APS involved,??given recent surgery, patient is not a candidate for neuraxial intervention. Pain regimen recommended by APS who continue to follow.? Recommendations: Activity:??Encourage ambulation with assistance Bowel Regimen:??Monitor on current regimen, last BM 04/10 Bladder:??Quinonez in place Cognition/psychopharmacology:??Avoid benzos, anticholinergics and antihistaminergics.?? DVT prophylaxis:??Agree with enoxaparin? Neurology: Neurosurgery signed off Pain Management: Defer to APS Spasticity:??None Current rehab treatment & further recommendations: Can resume PT and??OT??svs??in rehab??as??d/c is likely today??if not tomorrow.? Disposition: Patient??to be??d/c??back to??rehab ?? Code Status:??Full Resuscitation HCP:??Has HCP in [facility] Problem List/Past Medical History Ongoing Anxiety Cerebrovascular disease Chronic indwelling Quinonez catheter Gastroesophageal reflux disease Heart disease History of cervical discectomy History of stroke with residual deficit HLD (hyperlipidemia) HTN (hypertension) Hyperlipidemia Hypertensive disorder Migraines Obese class I Procedure/Surgical History D&C, right salpingo-oophorectomy: 09/05/13 section - at term: 1999 Salpingectomy, complete or partial, unilateral or bilateral (separate procedure): 1999 section - at term: 1994 section - at term: 1992 [facility] Medications Medications (25) Active SCHEDULED: (16) Acetaminophen 325 mg Tablet (acetaminophen 325 mg oral tablet) ??975 mg, By Mouth, Every 6 hours Aripiprazole 10mg Tablet (ARIPiprazole 10 mg oral tablet) ??10 mg, By Mouth, Daily Ascorbic Acid 250 mg Tablet (Vitamin C 250 mg oral tablet) ??500 mg, By Mouth, Daily Atorvastatin 20 mg Tablet (atorvastatin 20 mg oral tablet) ??20 mg, By Mouth, Daily Baclofen 10 mg Tablet (baclofen 10 mg oral tablet) ??10 mg, By Mouth, 3 times a day Cetirizine 5 mg Tablet (cetirizine 5 mg oral tablet) ??10 mg, By Mouth, Daily Dexamethasone 4 mg Tablet (dexamethasone 4 mg oral tablet) ??4 mg, By Mouth, 4 times a day Enoxaparin 40 mg Inj (Enoxaparin Inj) ??40 mg 0.4 mL, Subcutaneous Injection, Daily Famotidine 20 mg Tablet (famotidine 20 mg oral tablet) ??40 mg, By Mouth, Daily Gabapentin 300 mg Capsule (gabapentin 300 mg oral capsule) ??900 mg, By Mouth, 3 times a day Lidocaine 5% Topical Patch (Lidocaine 5% Patch) ??1 each, Topically, Daily Lisinopril 20 mg Tablet (lisinopril 20 mg oral tablet) ??40 mg, By Mouth, Daily NaCl 0.9% Flush 3ml (NaCL 0.9% Flush) ??3 mL, IV Push, Every 8 hours Polyethylene Glycol 17 Gm Powder (MiraLax Powder) ??17 Gm 1 pack/packet, By Mouth, Daily Remove Patch (Remove Lidocaine Patch) ??1 each, Topically, Daily at bedtime Venlafaxine 37.5 mg XR Capsule (venlafaxine 37.5 mg oral capsule, extended release) ??75 mg, By Mouth, Daily CONTINUOUS: (0) PRN: (9) Albuterol 90mcg/Inhalation Inhaler HFA (Ventolin 90 mcg Inhaler) ??180 mcg 2 puffs, Inhalation, Every 4 hours Docusate Sodium 100 mg Capsule (Docusate Sodium Capsule) ??100 mg 1 capsule, By Mouth, 2 times a day HYDROmorphone 0.5 mg/0.5 mL Inj Syringe (HYDROmorphone Inj) ??0.5 mg 0.5 mL, IV Push Slowly, 3 times a day HYDROmorphone 4 mg Tablet (Dilaudid 4 mg oral tablet) ??8 mg, By Mouth, Every 4 hours HydrOXYzine Pamoate 25mg Capsule (hydrOXYzine pamoate 25 mg oral capsule) ??50 mg, By Mouth, 2 times a day Ibuprofen 600 mg Tablet (ibuprofen 600 mg oral tablet) ??600 mg, By Mouth, Every 6 hours Melatonin 3 mg Tablet (Melatonin Tablet) ??3 mg, By Mouth, Daily at bedtime NaCl 0.9% Flush 3ml (NaCL 0.9% Flush) ??3 mL, IV Push, Every 8 hours Senna Tablet ??8.6 mg 1 tablet, By Mouth, 2 times a day Patient Education Titles Web[employer] Patient Education - Neck Exercises: Neck Isometrics?? [employer] Patient Education - Neck Pain?? [employer] Patient Education - Depression?? Follow-Up Appointments Added Follow Up ?Time Frame ?Comments Emmett VIERA, Sherif?1 to 2 weeks Patient Instructions You were admitted to the hospital because your blood pressure was elevated and for headache. You were treated??with medications. You were??also??treated for neck pain. You will be discharged on a pain regimen, please follow with your PCP and neurosurgery for follow up on this.? If you feel extremely sick/fatigued, chest pain, shortness of breath, increased swelling, abdominal tenderness, or any other symptoms that concern you, please come back to the hospital or go to any health care provider.?? Lab Results PM&R Labs WBC:??12.3 k/mm3??High (04/11/24) Platelet Count: 388 k/mm3 (04/11/24) Sodium: 137 mmol/L (04/11/24) BUN:??30 mg/dL??High (04/11/24) Creatinine-Blood: 0.74 mg/dL (04/11/24) AST (SGOT): 8 units/L (04/06/24) ALT (SGPT): 11 units/L (04/06/24) * Jodi Delgado RN: VERIFY, PERFORM, SIGN Event Display: Progress Note Hospital Authored Date: [id number] Patient: CHERYL VERDE Age: 58 years Sex: Female : 1965 Associated Diagnoses: None Author: Jodi Delgado RN Findings Problem Related to Alteration in Cardiac Function (new) : Alteration in Cardiac Function/new 04/10/2024 23:00 EDT Alteration in Cardiac Status Related to Hypertension Goals & Outcomes, Cardiac Status Pt will resume/maintain adequate cardiac output, Pt will resume/maintain adequate hemodynamic status, Pt will resume/maintain adequate respiratory function, Pt will resume/maintain intact neuro function, Pt will maintain adequate GI/ function appropriate for pt, Pt will maintain adequate nutrition status, Pt/caregiver will state understanding of diagnosis, Pt/caregiver will state strategies to reduce risk factors, Pt will state importance of adhering to med regime Cardiac Interventions Implemented Assess/monitor cardiac status, Assess/monitor neuro status, Assess/monitor respiratory status BH Goals/Interventions, Cardiac Yes Cardiac, Problem Start 04/05/2024 18:50 Reviewed Plan with, Cardiac Status Patient Patient Progression, Cardiac Status Patient progressing according to plan . Evaluation Assumed care of patient at 2100. Patient is alert and oriented x3, VSS. Patient denies headache or dizziness. LS clear abdomen is soft and nontender +BSx4. Scheduled and PRN pain medication given forshoulder and back pain with effect. F/C patent draining clear, yellow urine. Patient resting at this time. Call jones within reach and bed alarm on for safety. Will continue to monitor and report changes.. Note * Frances Mccoy RN: PERFORM Event Display: Discharge/Transfer Note Hospital Authored Date: [id number] Nursing Discharge Note Entered On: 04/12/2024 11:38 EDT Performed On: 04/12/2024 11:37 EDT by Frances Mccoy RN Nursing Discharge Note 2 Discharge Time : 04/12/2024 12:34 EDT Discharge Nursing Homes/Rehab Facilities : [facility] Discharge Comments : no changes from reporting second vp hr assessment Frances Mccoy RN - 04/12/2024 12:35 EDT Discharge Level of Care at Discharge : [facility] facility Patient Left Unit Via : Ambulance Patient Accompanied Off Unit with : Ambulance/Chair Van Personnel Handover Given to Transport Personnel : Yes DC Instructions Provided & Signed by Pt : Yes Patient Understands D/C Instructions : Yes Verbalized Understanding of D/C Plan By : Patient Patient Instructions Discharge Signed : Yes Did Pt have Specialty Bed or Wound Vac : No Frances Mccoy RN - 04/12/2024 11:37 EDT * Catherine Nichols DO: MODIFY, PERFORM, MODIFY Event Display: Discharge/Transfer Note Hospital Authored Date: Patient: ??CHERYL VERDE ? Age:??58 Years?Sex:??Female?:??1965?? Patient Information Discharge Location: Primary Care Physician: Sherif Christine MD Admit Date/Time: 04/05/24 13:36 Discharge Disposition Discharge Disposition: Residential Facility/Rehab Discharge Diagnosis Headache (R51.9) Hypertensive emergency (I16.1) History of cervical discectomy (Z98.890) Neck and shoulder pain (M54.2) History of stroke with residual deficit (I69.30) History of urinary retention (Z87.898) Chronic indwelling Quinonez catheter (Z97.8) HTN (hypertension) (I10) HLD (hyperlipidemia) (E78.5) Taking medication for chronic disease (R69) Leukocytosis (D72.829) _ Discharge Medications Acetaminophen (acetaminophen 325 mg oral tablet)?975?Milligram?By Mouth?Every 6 hours Albuterol (Proventil HFA 90 mcg/inh inhalation aerosol with adapter)?2?puff(s)?Inhalation?Every 4 hours Aripiprazole (ARIPiprazole 10 mg oral tablet)?10?Milligram?1?tablet?By Mouth?Daily Ascorbic Acid (Vitamin C 500 mg oral tablet)?1?tab(s)?500?Milligram?By Mouth?Daily Atorvastatin (atorvastatin 20 mg oral tablet)?1?tab(s)?20?Milligram?By Mouth?Daily Baclofen (baclofen 10 mg oral tablet)?10?Milligram?By Mouth?3 times a day?as needed?for 7?Days?Spasm Cetirizine (cetirizine 10 mg oral tablet)?TAKE ONE TABLET BY MOUTH EVERY DAY Famotidine (famotidine 20 mg oral tablet)?40?Milligram?2?tablet?By Mouth?Daily Gabapentin (gabapentin 300 mg oral capsule)?900?Milligram?By Mouth?3 times a day Hydromorphone (Dilaudid 4 mg oral tablet)?8?Milligram?By Mouth?Every 4 hours?as needed?Pain , Moderate HydrOXYzine (hydrOXYzine pamoate 50 mg oral capsule)?1?capsule?50?Milligram?By Mouth?4 times a day?as needed?as needed for anxiety Ibuprofen (ibuprofen 600 mg oral tablet)?600?Milligram?By Mouth?Every 6 hours?as needed?Pain , Mild Lidocaine Topical (Lidoderm 5% film)?1 patch?Topically?Daily?LEAVE ON FOR 12 HOURS, THEN OFF FOR 12 HOURS DIRECTED. Lisinopril (lisinopril 40 mg oral tablet)?TAKE ONE TABLET EVERY MORNING MethylPREDNISolone (Medrol Dosepak 4 mg oral tablet)?1?pack/packet?By Mouth?Daily?for 6?Days?as directed on package labeling Polyethylene Glycol 3350 (MiraLax Powder)?1?pack/packet?17?gram?By Mouth?Daily Senna (senna 187 mg oral tablet)?2?tab(s)?17.2?Milligram?By Mouth?Daily Venlafaxine (venlafaxine 75 mg oral capsule, extended release)?75?Milligram?1?capsule?By Mouth?Daily Medications Started Ibuprofen (ibuprofen 600 mg oral tablet)?600?Milligram?By Mouth?Every 6 hours?as needed?Pain , Mild Hydromorphone (Dilaudid 4 mg oral tablet)?8?Milligram?By Mouth?Every 4 hours?as needed?Pain , Moderate Medications Discontinued Tizanidine Doses Changed Acetaminophen (acetaminophen 325 mg oral tablet)?975?Milligram?By Mouth?Every 6 hours HydrOXYzine (hydrOXYzine pamoate 50 mg oral capsule)?1?capsule?50?Milligram?By Mouth?4 times a day?as needed?as needed for anxiety (from BID) Allergies Allergies ?(Active and Proposed Allergies Only) NKA? (Severity: Unknown severity, Onset: Unknown) ? PCP Follow-Up/Heads-Up ??? Pt admitted for HTN emergency and headache, now stable ??? Pt followed by pain team and was given a pain regimen that pt will be d/c on will need fu with PCP and neurosx for weaning (per pain team, pain should last 6-8 week) ??? Please fu in 1-2 weeks ??? Restart Medrol dose pack Future Appointments 2023 3:30 PM EDT ?? Where: [facility] [address] [place] [address]- Status: Pending Wednesday 3:00 PM EDT ?? With: [facility] Where: [facility] [address] [place] [address]- Status: Pending Hospital Course Cheryl is a 58 y/o F with a PMHx of hemorrhagic stroke (January 2024 with mild residual left-sided weakness), hypertension, hyperlipidemia, urinary retention; recent neurosurgical admission 03/31 to 04/04 for C5-C7 ACDF and discharged on 04/04 (with CCB constant neck pain with radiation to RUE with improvement with Decadron; d/c with Medrol dose pack). Admitted for elevated BP and headache in the setting of not receiving nighttime meds; briefly on nicard gtt, after brief complication with hypotension and dose of midodrine, now stable with Lisinopril. Now tx for neck pain with APS assiting with titration of pain meds. No acute neurosx intervention. ?? Hypertensive emergency (I16.1) HTN (I10) Headache (R51.9) ??? Pt d/c to rehab, but post-op day 1 did not receive night time meds and woke up with severe painand headache, blood pressure of 240 ??? Briefly on nicard gtt, after brief complication with hypotension and dose of midodrine, now stable with Lisinopril ??? Headache in the setting of uncontrolled hypertension; Head CT reported No acute intracranial abnormality. ?? Recommendation: ??? Continue home Lisinopril 40 mg daily ??? Continue to monitor BP ?? History of cervical discectomy (Z98.890) Neck and shoulder pain (M54.2) ??? Recent neurosurgical admission 03/31 to 04/04 for C5-C7 ACDF and discharged on 04/04 ??? Post-operative course was complicated by constant neck pain with radiation to the right upper extremity with numbness and tingling for which she was admitted from 03/31-04/04 with improvement with Decadron ??? D/C with medrol dosepack, baclofen, tizanidine, gabapentin from prior admission/DC plan ??? Given recent surgery, patient is not a candidate for neuraxial intervention ??? No significantly new findings from MRI that might explain her symptoms ?? Recommendation: ??? Given the escalating pain, consulted APS, appreciate recommendations ??--- Continue PO dilaudid to 8mg q4h PRN ??--- Continue gabapentin to 900mg TID ??--- Continue Baclofen 10 mg TID, discontinue tizanidine ??--- Continue acetaminophen 975mg q6h ??--- Continue lidoderm patch to upper back ??--- Continue ibuprofen 600mg TID ??? Restart Medrol Dose pack ??? FU with neurosurgery for pain management and fu ?? Leukocytosis (D72.829) ??? Likely secondary to steroids that was started. No infectious symptoms. ??? Monitor WBC fever curve and hold off on empirical antibiotics for now. ? History of stroke with residual deficit (I69.30) HLD (E78.5) ??? CT head was unremarkable; No new abnormality ??? Continue atorvastatin 20 mg daily ? History of urinary retention (Z87.898) Chronic indwelling Qunionez catheter (Z97.8) ??? Patient with history of urine retention with chronic Quinonez ??? She reports her Quinonez was changed 04/04 on arrival to rehab ??? Maintain Quinonez, orders placed, she will need routine Quinonez change as outpatient ? Anxiety ??? Continue home aripiprazole 10 mg daily ??? Increasing hydroxyzine 50 g to 4 times a day PRN from BID ??? Continue venlafaxine 75 mg daily ? FULL CODE ?? Objective Vital Signs?? Temperature: 98.9 DegF (04/12/24 07:28:00) Temperature Route: Oral (04/12/24 07:28:00) Pulse Rate: 55 bpm (04/12/24 07:28:00) Respiratory Rate: 18 br/min (04/12/24 08:44:00) Respiratory Rate: 18 br/min (04/12/24 08:44:00) Systolic Blood Pressure:??189 mm Hg??High (04/12/24 08:44:00) Diastolic Blood Pressure:??86 mm Hg??High (04/12/24 08:44:00) Blood pressure sites: Leg, right (04/12/24 07:28:00) Mean Arterial Pressure: 120 mm Hg (04/12/24 07:28:00) Pulse Pressure: 103 mm Hg (04/12/24 07:28:00) Oxygen Saturation: 98 % (04/12/24 07:28:00) Mode of Delivery (Oxygen): Room air (04/12/24 07:28:00) Early Warning Score: 0 (04/12/24 08:46:14) ? Intake/Output? 04/05 13:36 04/12 07:00 06 07:00 06 07:00 04/09 07:00 ?? 04/12 09:28 04/12 09:28 04/12 06:59 04 06:59 04/10 06:59 Intake ? 6228 ?240 ? 1380 ?480 ? 1200 Output ?70832 ?0 ? 3400 ? 2450 ? 2100 Net Total ? -79998 ?240 ?-2020 ?-1970 ? -900 ? . Physical Exam General: Patient in no acute distress?? HEENT: normocephalic, atraumatic, PERRLA, EOMI, moist mucous membranes with no oral lesions. No lymphadenopathy or thyromegaly appreciated.?? Respiratory: bilateral equal air entry, clear to auscultation with no wheezes or crackles. Adequaterespiratory rate and effort on room air.?? CVS: regular rate and rhythm, S1 and S2 present, no murmurs, rubs or gallops. No JVD.?? Abdomen: soft, non tender, non distended, bowel sounds present, no organomegaly.?? 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 Consultants Acute Pain Service: Augustin VIERA, Berta PM&R: Julia WEBER, Fanny Segura Patient Education Titles WebMD Ignite Patient Education - Neck Exercises: Neck Isometrics?? Web[employer] Patient Education - Neck Pain?? [employer] Patient Education - Depression?? Follow-Up Appointments Added Follow Up ?Time Frame ?Comments Emmett VIERA, Sherif?1 to 2 weeks Patient Instructions You were admitted to the hospital because your blood pressure was elevated and for headache. You were treated??with medications. You were??also??treated for neck pain. You will be discharged on a pain regimen, please follow with your PCP and neurosurgery for follow up on this.? If you feel extremely sick/fatigued, chest pain, shortness of breath, increased swelling, abdominaltenderness, or any other symptoms that concern you, please come back to the hospital or go to any health care provider.?? Post Discharge Care Diet: ??Cardiac diet ?? Activity: ??Ambulate with assistance 3 times a day unless otherwise specified ?? Code Status: ??Full Resuscitation ?? Condition: ??fair ?? Prognosis: ??Fair ?? Results Discharge Labs BLOOD COUNT & DIFF WBC 12.3 k/mm3 (High)?? 04/11/2024 07:17 RBC 4.52 m/mm3 ()?? 04/11/2024 07:17 Hgb 13.1 Gm/dL ()?? 04/11/2024 07:17 Hct 39.7 % ()?? 04/11/2024 07:17 MCV 87.8 femtoliters ()?? 04/11/2024 07:17 MCH 29.0 pg ()?? 04/11/2024 07:17 MCHC 33.0 g/dL ()?? 04/11/2024 07:17 Platelet Count 388 k/mm3 ()?? 04/11/2024 07:17 RDW-SD 41.0 femtoliters ()?? 04/11/2024 07:17 MPV 9.7 femtoliters ()?? 04/11/2024 07:17 Nucleated RBC (Automated) 0.0 #/100 WBC'S ()?? 04/11/2024 07:17 Abs. NRBC 0.0 k/mm3 ()?? 04/11/2024 07:17 Abs. Neut 12.8 k/mm3 (High)?? 04/09/2024 06:50 Abs. Lymph 2.0 k/mm3 ()?? 04/09/2024 06:50 Abs. Culberson 0.7 k/mm3 ()?? 04/09/2024 06:50 Abs. Eo 0.0 k/mm3 ()?? 04/09/2024 06:50 Abs. Baso 0.0 k/mm3 ()?? 04/09/2024 06:50 Neut % 81.8 % (High)?? 04/09/2024 06:50 Lymph % 12.6 % (Low)?? 04/09/2024 06:50 Culberson % 4.5 % ()?? 04/09/2024 06:50 Eos % 0.0 % ()?? 04/09/2024 06:50 Baso % 0.1 % ()?? 04/09/2024 06:50 Imm Gran 1.0 % ()?? 04/09/2024 06:50 Abs. Imm Gran 0.2 k/mm3 ()?? 04/09/2024 06:50 ?? CARDIAC Nt-Probnp 1038 pg/mL (High)?? 04/05/2024 11:56 High Sensitivity Troponin (HSTnT) 11 ng/L ()?? 04/05/2024 20:15 ?? CHEM GENERAL Sodium 137 mmol/L ()?? 04/11/2024 07:17 Potassium 5.0 mmol/L ()?? 04/11/2024 07:17 Chloride 101 mmol/L ()?? 04/11/2024 07:17 Bicarbonate Level 25 mmol/L ()?? 04/11/2024 07:17 Anion Gap 11 ()?? 04/11/2024 07:17 Glucose Level 118 mg/dL (High)?? 04/11/2024 07:17 Glucose, POC 74 mg/dL ()?? 04/05/2024 11:54 BUN 30 mg/dL (High)?? 04/11/2024 07:17 Creatinine-Blood 0.74 mg/dL ()?? 04/11/2024 07:17 Estimated GFR Creatinine 94 ML/MIN/1.73 M2 ()?? 04/11/2024 07:17 Calcium 9.2 mg/dL ()?? 04/11/2024 07:17 Phosphorus 3.3 mg/dL ()?? 04/07/2024 07:32 Magnesium 2.1 mg/dL ()?? 04/07/2024 07:32 Protein, Total 6.3 Gm/dL ()?? 04/06/2024 03:59 Albumin 3.9 Gm/dL ()?? 04/06/2024 03:59 AG Ratio 1.6 ()?? 04/06/2024 03:59 Alkaline Phosphatase 79 units/L ()?? 04/06/2024 03:59 AST (SGOT) 8 units/L ()?? 04/06/2024 03:59 ALT (SGPT) 11 units/L ()?? 04/06/2024 03:59 Bilirubin, Total 0.3 mg/dL ()?? 04/06/2024 03:59 ?? HEME OTHER Hold Lavender Top SPECIMEN DISCARDED AFTER 24 HOURS. ()?? 04/05/2024 20:15 ? MISC. CHEMISTRY Procalcitonin 0.03 ng/mL ()?? 04/06/2024 03:59 Hold Gel Top SPECIMEN DISCARDED AFTER 1 WEEK ()?? 04/05/2024 20:15 ?? URINE OTHER Est Creatinine Clearance 69.71 mL/min ()?? 04/11/2024 09:28 ? VIROLOGY COVID-19 PCR Specimen Source NASAL ()?? 04/06/2024 17:00 COVID-19 PCR Result NEGATIVE ()?? 04/06/2024 17:00 ? Microbiology ?? COVID-19 (2019 Novel Coronavirus) PCR?? Completed?? Source: Nasal Body Site: Nose Collected Dt/Tm: 04/06/2024 16:45 Last Updated Dt/Tm: 04/06/2024 18:23 ?(04/08/2024 18:19 EDT MRI Cervical Spine W/O Contrast) * Final Report * ?? Reason For Exam c5-c7 ACDF 03/20, postop continued pain and radicular symptoms;Other: ?? RESULT: MRI Cervical Spine W/O Contrast MRI Cervical Spine W/O Contrast ?? Reason: Other:; c5-c7 ACDF 03 20, postop continued pain and radicular symptoms; Clinical Question(s): Cord Hematoma; Order Comment: Please see Reference Text for complete list of contraindications ??Cord Hematoma ?? TECHNIQUE: MRI of the cervical spine was performed without intravenous contrast utilizing sagittal T1, sagittal T2, and sagittal STIR sequences. Axial sequences were not obtained as the patient couldnot tolerate he's examination and a ventral patient was medicated she was scratching the site of the machine and ended the exam. ?? COMPARISON: MRI 03/14/2024 ?? FINDINGS:? LOCALIZER: Additional entire spine T2 localizers were obtained. ?? Sagittal T2-weighted localizer images include the cervical, thoracic, and lumbar spine. No axial images were obtained through the thoracic and lumbar spine, but the sagittal images do provide a limited survey examination. Thoracic spine alignment is preserved. Vertebral body heights are normal. There is a stable T2 hyperintense lesion in the T9 vertebral body. The thoracic canal appears patent. The lumbar spine alignment is unchanged with anterolisthesis of L5 on S1. The vertebral body heights appear maintained. The previously seen lesion at L1 is much less conspicuous due to motion. No mass is identified. There is no evidence of discitis or osteomyelitis. ?? Incompletely imaged sigmoid colonic diverticulosis is noted. ?? ALIGNMENT, VERTEBRAE, MARROW, AND DISCS: This examination is significantly degraded by motion. There is anterior spinal fusion with instrumentation at C5, C6, and C7, new since the prior examination.The alignment appears maintained. Vertebral body heights are preserved. There is no significant marrow signal abnormality within the confines of motion. There is a mild diffuse disc bulge and posterior endplate spurs at C4-C5 deforming the thecal sac. There is disc desiccation at C2-C3, C3-C4, and C7-T1 with a minimal disc bulge at C7-T1. The previously pain prominent this bulges or herniations at C4-C5, C5-C6, and C6-C7 are no longer present. ?? POSTERIOR FOSSA AND CORD: Given the degree of motion and lack of axial images, the signal within the cord cannot be evaluated. The visualized posterior fossa is unremarkable within the confines of motion. ?? PARASPINAL TISSUES: The paraspinal soft tissues are grossly unremarkable. There is no significant prevertebral soft tissue thickening. ?? The craniocervical junction and C1-C2 articulation are preserved. ?? The canal appears improved fat C5-C6 and C6-C7. There is no canal stenosis at C2-C3, C3-C4, C7-T1, or in the upper thoracic spine. Accurate evaluation of the foramina is suboptimal due to motion. ?? IMPRESSION: ?? New anterior spinal fusion with a limitation at C5, C6, and C7. Improved appearance of the canal atC5-C6 and C6-C7 within the confines of motion. ?? Evaluation of the cord is suboptimal due to significant motion and lack of axial images. ? WSN: [id number] [1] (04/08/2024 18:00 EDT MRI Brain W/O Contrast) ?? Reason For Exam Pain/Trauma ?? RESULT: MRI Brain W/O Contrast MRI Brain W/O Contrast ?? INDICATION: Reason: Pain Trauma; Clinical Question(s): Hematoma; Order Comment: Please see Reference Text for complete list of contraindications ??Hematoma ?? TECHNIQUE: MRI of the brain was performed without contrast utilizing sagittal T1, axial T2, axial FLAIR, axial SWAN, and axial DWI sequences. ?? COMPARISON: MRI of 01/30/2024, CT head of 04/05/2024. ?? FINDINGS:? BRAIN and EXTRA-AXIAL SPACES: The midline structures, including sella, corpus callosum, and craniocervical junction, are unremarkable. There is no mass effect, midline shift, or effacement of the basal cisterns. On diffusion weighted imaging, there are no regions of restricted diffusion to indicatean acute or subacute infarct. Subacute/chronic blood products in the right posterior limb of internal capsule/thalamus are noted, significantly improved since prior MRI of 02/04/2024. Minimal residual T1 hyperintense signal is present. The previously seen mass effect has resolved. There are additional punctate foci of chronic microhemorrhages in the supratentorial and infratentorial brain, unchanged. A small chronic lacunar infarct in the left centrum semiovale is redemonstrated. Additional mild to moderate T2 hyperintense foci are present in the periventricular and subcortical white matter, similar to prior examination. The previously seen FLAIR hyperintensity surrounding the evolving right supratentorial hematoma has resolved. ?? Ventricles, cisterns, and sulci are normal in size and configuration, without hydrocephalus. No abnormal extra-axial fluid collections are seen. Meningeal surfaces are normal. ? Major intracranial flow voids are present. ?? EXTRACRANIAL SOFT TISSUES: Orbits are unremarkable. There is a small mucous retention cyst or polypin the inferior left maxillary sinus, unchanged. The paranasal sinuses and mastoid air cells are clear.? BONES: Marrow signal is preserved. ? IMPRESSION: ?? 1. Expected evolution of the right internal capsule and thalamic hemorrhage with resolution of the previously seen surrounding vasogenic edema, mass effect, and midline shift. No new acute/subacute infarct, mass, new hemorrhage, or other acute intracranial abnormality.? 2. Stable mild to moderate T2/FLAIR hyperintense foci in the white matter, nonspecific but most likely reflecting chronic small vessel disease.? 3. Stable additional punctate chronic microhemorrhages, probably hypertensive in origin. If patientis normotensive, cerebral amyloid angiopathy would be the differential. Clinical correlation is advised. WSN: [id number] [2] (04/05/2024 12:47 EDT Chest Portable) * Final Report * ?? Reason For Exam Stroke;Other: ?? RESULT: Chest Portable Chest Portable? Reason: Other:; Stroke; Clinical Question(s): CHF ?? COMPARISON: Multiple prior chest radiographs with the most recent dated 02/06/2024. ?? FINDINGS: ?? LINES AND TUBES:?? None. ?? LUNGS AND PLEURA: Minimal low lung volumes. Clear lungs. Normal pulmonary vascularity.?? No pleural effusion.?? No pneumothorax. ?? HEART, MEDIASTINUM AND CHARO:?? Heart is normal in size. Normal mediastinal and hilar contour. ?? BONES AND SOFT TISSUES:?? No acute abnormality. Mild degenerative change both shoulders. ?? ACDF lower cervical spine. ?? Moderate multilevel degenerative change lower thoracic spine. ?? Several surgical clips are seen in the right axilla. ?? IMPRESSION: ?? No acute abnormality. ? WSN: [id number] ? [3] (04/05/2024 12:[address] Angio Head Hyperacute Stroke) ?? Reason For Exam Stroke;Other: ?? RESULT: CT Angio Head Hyperacute Stroke CT Angio Head Hyperacute Stroke, CT Angio Neck Hyperacute Stroke ?? Reason: Headache and elevated blood pressure. ?? TECHNIQUE: CT angiogram of the head and [...] tube modulation was used to optimize exposure parameters.? RADIATION DOSE PARAMETERS:? CTDIvol Body: 11.55 mGy, ??DLP Body: 613 mGy*cm. ? COMPARISON: Noncontrast CT head performed concurrently. Prior CTs and CTA head and neck, most recently 03/12/2024. MRI of the brain, 02/04/2024. ?? FINDINGS:? CTA OF THE NECK:? Arch: There is a three vessel aortic arch. There is mild atherosclerotic plaque of the aortic arch,but origins of the supra aortic vessels are patent.? Right carotid system: The common carotid and cervical internal carotid arteries are patent. No stenosis (0%) by NASCET criteria. ?? Left carotid system: The common carotid and cervical internal carotid arteries are patent. There iscalcified atherosclerotic plaque at the carotid bifurcation, but no ICA stenosis (0%) by NASCET criteria. ?? There is a co-dominant vertebral artery system. ?? Right vertebral: Patent. ?? Left vertebral: There is probably moderate narrowing at the origin. There is also mild narrowing along the V1 and V3 segments due to calcified plaque. Beyond this, the extracranial vertebral is normal in caliber. ?? Other: Soft tissues and bones: No evidence of lymphadenopathy or mass. ??The thyroid is unremarkable. Visualized lungs are blurred by motion artifact, without significant superimposed airspace opacity. There has been ACDF C5-C7 utilizing an anterior plate and screws with intervertebral disc spacers. Degenerative changes are seen elsewhere in the spine. ? CTA OF THE HEAD: ?? Anterior circulation: Mild calcification is seen along the intracranial ICAs without significant narrowing. The anterior cerebral arteries and bilateral M1 and proximal M2 branches are patent and normal in caliber. ?? Posterior circulation: There is mild narrowing of the intradural right vertebral due to calcified plaque. The left vertebral is patent. The basilar artery, superior cerebellar arteries, and posteriorcerebral arteries are patent with mild narrowing of the distal right P2 segment. Small bilateral posterior communicating arteries are noted with infundibulum at the left P-comm origin. ?? Veins: Major dural venous sinuses are patent. ?? Other:?? Soft tissues and bones: No midline shift or effacement of the basal cisterns. No space-occupying hemorrhage. No acute territorial loss of chakraborty-white matter differentiation. There is hypodensity within the right thalamocapsular region in the area of prior hemorrhage. Orbits are unremarkable. No significant opacification in the paranasal sinuses or mastoid air cells.? IMPRESSION: ? 1. ??No proximal occlusion or high grade stenosis in the major arteries of the head and neck. 2. ??Moderate narrowing at the left vertebral artery origin. ? WSN: [id number] ?? [4] (04/05/2024 12:[address] Angio Neck Hyperacute Stroke) * Final Report * ?? Reason For Exam Aneurysm, neck vessel(s);Other: ?? RESULT: CT Angio Neck Hyperacute Stroke CT Angio Head Hyperacute Stroke, CT Angio Neck Hyperacute Stroke ?? Reason: Headache and elevated blood pressure. ?? TECHNIQUE: CT angiogram of the head and [...] tube modulation was used to optimize exposure parameters.? RADIATION DOSE PARAMETERS:? CTDIvol Body: 11.55 mGy, ??DLP Body: 613 mGy*cm. ? COMPARISON: Noncontrast CT head performed concurrently. Prior CTs and CTA head and neck, most recently 03/12/2024. MRI of the brain, 02/04/2024. ?? FINDINGS:? CTA OF THE NECK:? Arch: There is a three vessel aortic arch. There is mild atherosclerotic plaque of the aortic arch,but origins of the supra aortic vessels are patent.? Right carotid system: The common carotid and cervical internal carotid arteries are patent. No stenosis (0%) by NASCET criteria. ?? Left carotid system: The common carotid and cervical internal carotid arteries are patent. There iscalcified atherosclerotic plaque at the carotid bifurcation, but no ICA stenosis (0%) by NASCET criteria. ?? There is a co-dominant vertebral artery system. ?? Right vertebral: Patent. ?? Left vertebral: There is probably moderate narrowing at the origin. There is also mild narrowing along the V1 and V3 segments due to calcified plaque. Beyond this, the extracranial vertebral is normal in caliber. ?? Other: Soft tissues and bones: No evidence of lymphadenopathy or mass. ??The thyroid is unremarkable. Visualized lungs are blurred by motion artifact, without significant superimposed airspace opacity. There has been ACDF C5-C7 utilizing an anterior plate and screws with intervertebral disc spacers. Degenerative changes are seen elsewhere in the spine. ? CTA OF THE HEAD: ?? Anterior circulation: Mild calcification is seen along the intracranial ICAs without significant narrowing. The anterior cerebral arteries and bilateral M1 and proximal M2 branches are patent and normal in caliber. ?? Posterior circulation: There is mild narrowing of the intradural right vertebral due to calcified plaque. The left vertebral is patent. The basilar artery, superior cerebellar arteries, and posteriorcerebral arteries are patent with mild narrowing of the distal right P2 segment. Small bilateral posterior communicating arteries are noted with infundibulum at the left P-comm origin. ?? Veins: Major dural venous sinuses are patent. ?? Other:?? Soft tissues and bones: No midline shift or effacement of the basal cisterns. No space-occupying hemorrhage. No acute territorial loss of chakraborty-white matter differentiation. There is hypodensity within the right thalamocapsular region in the area of prior hemorrhage. Orbits are unremarkable. No significant opacification in the paranasal sinuses or mastoid air cells.? IMPRESSION: ? 1. ??No proximal occlusion or high grade stenosis in the major arteries of the head and neck. 2. ??Moderate narrowing at the left vertebral artery origin. ? WSN: [id number] ?? [5] (04/05/2024 12:[address] Head-Hyper Acute Stroke) * Final Report * ?? Reason For Exam Neuro deficit, acute, stroke suspected;Other: ?? RESULT: CT Head-Hyper Acute Stroke CT Head-Hyper Acute Stroke? CLINICAL INDICATION: Reason: Other:; Neuro deficit, acute, stroke suspected; Clinical Question(s): Other:; Hematoma Infarction; Order Comment:. ? PRIOR EXAMS: ??03/12/2024.. ? TECHNIQUE: Head CT was performed without intravenous contrast, using axial technique and reconstructed in axial and coronal plane. Iterative reconstruction techniques are used to optimize dose and image quality. ? FINDINGS: ?? BRAIN: ?? There is no infarct. There is no intracerebral hemorrhage. There is no mass. ?? VENTRICLES, SULCI, AND CISTERNS: ??The ventricles and sulci are symmetrical and normal. ?? WHITE MATTER: ??No white matter abnormality. ?? EXTRA AXIAL SPACES: There is no abnormal epidural, subdural, or subarachnoid blood or fluid. ?? SKULL: There is no skull fracture.. ?? PARANASAL SINUSES: Clear. ?? TEMPORAL BONES: The mastoid air cells are clear, as are the middle ear cavities. ? IMPRESSION: 1. No acute intracranial abnormality. ?? 2. No skull fracture. WSN: [id number] ? 35 minutes spent on discharge * Marita Ivy RN: PERFORM, SIGN, VERIFY Event Display: Case Management Discharge Plan Authored Date: Patient: CHERYL VERDE Age: 58 years Sex: Female : 1965 Associated Diagnoses: None Author: Marita Ivy RN Discharge Plan Case Management Discharge Plan : Case Management Discharge Plan Data 04/12/2024 9:27 EDT Discharge Level of Care at Discharge [facility] facility Discharge Transportation Arranged [facility] [address] [facility] [address] [phone] Discharge Arranged Transport Date/Time 04/12/2024 12:00 Mode of Transportation Arranged Chair Van Service Categories #1 Occupational Therapy, Physical Therapy, Residential * Darius BAI, Frances Martinez: PERFORM Event Display: Patient Education/Instruction Authored Date: [id number] Inpatient Adult Discharge Instructions. [address] [address] Name: CHERYL VERDE : 1965?? Visit: 04/05/2024 13:36?? Current Date: 04/12/2024 11:38 ?? Account: [id number]?? Inpatient Adult Discharge Instructions We would like [...] and their families. Surveys are administered by [employer] ?? If further treatment with your primary care physician or another doctor is recommended, it is important for you to keep the appointment. Call your primary care physician or return to the Emergency Department immediately if your condition worsens, fails to improve, or new symptoms develop. If you need to find a doctor, you can call [facility] for a referral at [phone] or toll free at [phone] or log in to [email or web address].. ?? [facility], in keeping with [facility] guidance, no longer requires face masks for [...] a health care rigoberto of your choosing. [employer] is a website that allows you to securely view your medical information including your hospital discharge summary, office visit summaries, medications and follow-up visits. You can also request appointments, renew medications, and request access to your medical information using a health care rigoberto of your choosing, or just ask a question. You can enroll at [email or web address] or register during your next office visit. You have been discharged from [facility], Patient Care Unit: S3??. If you have any questions regarding these instructions, including results of studies pending, afteryou leave, please call us and we will be happy to assist you 31/05. [facility] Your Care Team Attending Physician Yury Gan MD?? Consulting Providers Yury Gan MD?? Discharging Providers Catherine Nichols DO Reason for Your Visit At 9AM this morning she received 40MG of Lisinopril + anxiety medications + 5 Oxycodone.?? Your Diagnosis Chronic indwelling Quinonez catheter General medical History of cervical discectomy History of stroke with residual deficit History of urinary retention HLD (hyperlipidemia) HTN (hypertension) Leukocytosis Neck and shoulder pain Taking medication for chronic disease Tests Performed Below is a partial list of the tests performed during your hospitalization. You may have had other tests and procedures not included in this list. Please discuss all test results with your provider. AST Basic Metabolic Panel CBC CBC w/ Differential Comprehensive Metabolic Panel COVID-19 (2019 Novel Coronavirus) PCR GLUCOSE POC High??Sensitivity??Troponin T HOLD GEL TUBE HOLD LAVENDER TUBE Magnesium Level Phosphorus Level ProBNP Procalcitonin Level Troponin T, High Sensitivity CT Angio Head Hyperacute Stroke CT Angio Neck Hyperacute Stroke CT Head-Hyper Acute Stroke MRI Brain W/O Contrast MRI Cervical Spine W/O Contrast XR Chest Portable No tests performed during this visit.?? Primary Care Provider Sherif Christine MD? Advance Directive Health Care Proxy on File Yes - Health Care Proxy Discharge Vitals Temperature: 98.7 DegF Height: 161 cm Pulse Rate: 64 bpm Weight: 88.2 kg Respiratory Rate: 18 br/min Body Mass Index:??34.03 kg/m2??Critical Systolic Blood Pressure:??144 mm Hg??High Body surface area: 1.99 Diastolic Blood Pressure:??99 mm Hg??High ?? Oxygen Saturation: 97 % ?? Studies Pending All studies ordered during this hospital stay have been completed unless listed below. Please discuss all pending results with your provider listed above in these instructions. ?? No incomplete studies found?? What to do next Instructions From Your Doctor You were admitted to the hospital because your blood pressure was elevated and for headache. You were treated??with medications. You were??also??treated for neck pain. You will be discharged on a pain regimen, please follow with your PCP and neurosurgery for follow up on this.? If you feel extremely sick/fatigued, chest pain, shortness of breath, increased swelling, abdominaltenderness, or any other symptoms that concern you, please come back to the hospital or go to any health care provider.? Orders??:Cardiac diet :Ambulate with assistance ??3 times a day ??unless otherwise specified Status: ??Full Resuscitation :fair :Fair? 04/12/24 10:53:00 EDT?? 04/12/24 9:58:00 EDT?? Prescriptions??, ??04/12/24 10:53:00 EDT , ??04/12/24 10:53:00 EDT , ??04/12/24 9:58:00 EDT?? Scheduled Follow-Up Appointments 2023 3:30 PM EDT ?? Where: [facility] Neurosurgery [address] [place] [address] Drive [address] [place] [address]- Status: Pending Wednesday 3:00 PM EDT ?? With: Mary VIERA, Cade Where: [facility] Neurology [address] Floor, [address] [place] [address]- Status: Pending You Need to Schedule the Following Appointments Follow Up with??Sherif Christine MD When:??Within 1 to 2 weeks Where: [address] [place] [address] [address] [place] [address]- Discharge Medications CHERYL VERDE :1965 Visit Date:04/05/2024 Medications: Please continue your medications until treatment is completed or stopped by your provider. Medications not listed below should be discontinued. Discuss any questions related to medications with your provider. What How Much When Instructions Next Dose New Hydromorphone (Dilaudid 4 mg oral tablet) 8 Milligram Oral Every 4 hours as needed for Pain , Moderate Duration: 10 Days Printed Prescription as needed. next dose at 3pm New Ibuprofen (ibuprofen 600 mg oral tablet) 600 Milligram Oral Every 6 hours as needed for Pain , Mild as needed, next dose at 5pm Changed Acetaminophen (acetaminophen 325 mg oral tablet) 975 Milligram Oral Every 6 hours 04/12 today at 5pm Changed Baclofen (baclofen 10 mg oral tablet) 10 Milligram Oral 3 times a day as needed for Spasm Duration: 7 Days as needed Changed Gabapentin (gabapentin 300 mg oral capsule) 900 Milligram Oral 3 times a day 04/12 today at 3pm Changed HydrOXYzine (hydrOXYzine pamoate 50 mg oral capsule) 1 capsule Oral 4 times a day as needed for as needed for anxiety as needed Unchanged Albuterol (Proventil HFA 90 mcg/ inh inhalation aerosol with adapter) 2 puff(s) Inhalation Every 4 hours resume home schedule Unchanged Aripiprazole (ARIPiprazole 10 mg oral tablet) 1 tab(s) Oral Daily 04/13 tomorrow morning Unchanged Ascorbic Acid (Vitamin C 500 mg oral tablet) 1 tab(s) Oral Daily 04/13 tomorrow morning Unchanged Atorvastatin (atorvastatin 20 mg oral tablet) 1 tab(s) Oral Daily 04/13 tomorrow morning Unchanged Cetirizine (cetirizine 10 mg oral tablet) TAKE ONE TABLET BY MOUTH EVERY DAY ?? 04/13 tomorrow morning Unchanged Famotidine (famotidine 20 mg oral tablet) 2 tab(s) Oral Daily 04/13 tomorrow morning Unchanged Lidocaine Topical (Lidoderm 5% film) 1 patch Topically Daily LEAVE ON FOR 12 HOURS, THEN OFF FOR 12 HOURS DIRECTED. ?? 04/13 tomorrow morning Unchanged Lisinopril (lisinopril 40 mg oral tablet) TAKE ONE TABLET EVERY MORNING ?? 04/13 tomorrow morning Unchanged MethylPREDNISolone (Medrol Dosepak 4 mg oral tablet) 1 pack/packet Oral Daily Duration: 6 Days as directed on package labeling ?? 04/13 tomorrow morning Unchanged Polyethylene Glycol 3350 (MiraLax Powder) 17 gram Oral Daily 6/6 tomorrow morning Unchanged Senna (senna 187 mg oral tablet) 2 tab(s) Oral Daily 6/6 tomorrow morning Unchanged Venlafaxine (venlafaxine 75 mg oral capsule, extended release) 1 capsule Oral Daily 6/6 tomorrow morning ?? What How Much When Comments Stop Taking Tizanidine (tiZANidine 4 mg oral tablet) 4 Milligram Oral 3 times a day Prescription Given During Visit Hydromorphone (Dilaudid 4 mg oral tablet) - 8 mg, By Mouth, Every 4 hours, # 60 tablet, 0 Refills?? Laboratory Results Below is a partial list of the most recent Laboratory test results done prior to this discharge. You may have had other tests and procedures not included in this list. Please discuss all test resultswith your provider. Est Creatinine Clearance - 69.71 mL/min (04/11/2024) AST (04/05/2024) ???AST (SGOT) - 21 units/L Basic Metabolic Panel (04/11/2024) ???Sodium - 137 mmol/L???Potassium - 5.0 mmol/L???Chloride - 101 mmol/L???Bicarbonate Level - 25 mmol/L???Anion Gap - 11???Glucose Level - 118 mg/dL???BUN - 30 mg/dL???Creatinine-Blood - 0.74 mg/dL???Estimated GFR Creatinine - 94 ML/MIN/1.73 M2???Calcium - 9.2 mg/dL CBC (04/11/2024) ???WBC - 12.3 k/mm3???RBC - 4.52 m/mm3???Hgb - 13.1 Gm/dL???Hct - 39.7 %???MCV - 87.8 femtoliters???MCH - 29.0 pg???MCHC - 33.0 g/dL???Platelet Count - 388 k/mm3???RDW-SD - 41.0 femtoliters???MPV - 9.7 femtoliters???Nucleated RBC (Automated) - 0.0 #/100 WBC'S???Abs. NRBC - 0.0 k/mm3 CBC w/ Differential (04/09/2024) ???WBC - 15.7 k/mm3???RBC - 4.76 m/mm3???Hgb - 13.6 Gm/dL???Hct - 41.7 %???MCV - 87.6 femtoliters???MCH - 28.6 pg???MCHC - 32.6 g/dL???Platelet Count - 424 k/mm3???RDW-SD - 40.4 femtoliters???MPV - 9.6 femtoliters???Nucleated RBC (Automated) - 0.0 #/100 WBC'S???Abs. NRBC - 0.0 k/mm3???Abs. Neut - 12.8 k/mm3???Abs. Lymph - 2.0 k/mm3???Abs. [place] - 0.7 k/mm3???Abs. Eo - 0.0 k/mm3???Abs. Baso - 0.0 k/mm3???Neut % - 81.8 %???Lymph % - 12.6 %???[place] % - 4.5 %???Eos % - 0.0 %???Baso % - 0.1 %???Imm Gran - 1.0 %???Abs. Imm Gran - 0.2 k/mm3 Comprehensive Metabolic Panel (04/06/2024) ???Sodium - 139 mmol/L???Potassium - 4.7 mmol/L???Chloride - 103 mmol/L???Bicarbonate Level - 22 mmol/L???Anion Gap - 14???Glucose Level - 131 mg/dL???BUN - 27 mg/dL???Creatinine-Blood - 0.89 mg/dL???Estimated GFR Creatinine - 75 ML/MIN/1.73 M2???Calcium - 9.2 mg/dL???Protein, Total - 6.3 Gm/dL???Albumin - 3.9 Gm/dL???AG Ratio - 1.6???Alkaline Phosphatase - 79 units/L???AST (SGOT) - 8 units/L???ALT (SGPT) - 11 units/L???Bilirubin, Total - 0.3 mg/dL COVID-19 (2019 Novel Coronavirus) PCR (04/06/2024) ???COVID-19 PCR Specimen Source - NASAL???COVID-19 PCR Result - NEGATIVE GLUCOSE POC (04/05/2024) ???Glucose, POC - 74 mg/dL High??Sensitivity??Troponin T (04/05/2024) ???High Sensitivity Troponin (HSTnT) - 11 ng/L HOLD GEL TUBE (04/05/2024) ???Hold Gel Top - SPECIMEN DISCARDED AFTER 1 WEEK HOLD LAVENDER TUBE (04/05/2024) ???Hold Lavender Top - SPECIMEN DISCARDED AFTER 24 HOURS. Magnesium Level (04/07/2024) ???Magnesium - 2.1 mg/dL Phosphorus Level (04/07/2024) ???Phosphorus - 3.3 mg/dL ProBNP (04/05/2024) ???Nt-Probnp - 1038 pg/mL Procalcitonin Level (04/06/2024) ???Procalcitonin - 0.03 ng/mL Troponin T, High Sensitivity (04/05/2024) ???High Sensitivity Troponin (HSTnT) - 10 ng/L Allergies (NKA means No Known Allergies) NKA Problems Active Problems??(14) Anxiety?? Cerebrovascular disease?? Chronic indwelling Quinonez catheter?? Gastroesophageal reflux disease?? Heart disease?? History of cervical discectomy?? History of stroke with residual deficit?? HLD (hyperlipidemia)?? HTN (hypertension)?? Hyperlipidemia?? Hypertensive disorder?? left ventricular hypertrophy?? Migraines?? Obese class I?? Education Materials Below is the list of Educational Leaflet Providered with your Discharge Instructions. [employer] Patient Education - Neck Exercises: Neck Isometrics?? [employer] Patient Education - Neck Pain?? [employer] Patient Education - Depression?? Valuables and Belongings I fully understand and agree that [facility] accepts no responsibility for all my [...] witness Date for Pt to Sign Valuables/Belongings: 04/12/24 11:18:00 ?? Other Discharge Information ? Case Management Discharge Plan?? Discharge Plan?? Discharge Agency Information?? Discharge Level of Care at Discharge: [facility] facility Service Categories #1: Occupational Therapy, Physical Therapy, Residential Discharge Transportation Arranged: [facility] [address] [facility] [address] [phone] ?? Mode of Transportation Arranged: Chair Van ?? Discharge Arranged Transport Date/Time: 04/12/24 12:00:00 ? Pulmonary Rehab Status?? Pulmonary Rehab Discharge [...] are strongly encouraged to quit. Please call [employer] [facility] at [phone] or [phone] ([phone]) or log in to [email or web address] for referrals to smoking cessation programs. ?? 988 Suicide & Crisis Lifeline is available 31/05 if you or someone you know needs to find a reason to keep living. By calling 388 you'll be connected to a skilled, trained counselor at a crisis center in your area. INPATIENT DISCHARGE INSTRUCTIONS SIGNATURE PAGE CHERYL VERDE Location:[facility] Registration Date and Time:04/05/2024 13:36 EDT Primary Care Physician: Sherif Christine MD, Attending Physician: Yury Gan MD, I MEHREEN CHERYL, have received the above patient education materials/instructions and have verbalized understanding. If ambulance or transport services are being used I further acknowledge being givena choice of service. ?? If you need to contact me, please call me at this number: . Patient/Tester/Lift Trucker Name: Patient/Tester/Lift Trucker Signature: Relationship to Patient: Witness Name/Signature: Date: * Nichols DO, Catherine: PERFORM, MODIFY, MODIFY, MODIFY Event Display: Discharge/Transfer Note Hospital Authored Date: [id number] Patient: ??CHERYL VERDE ? Age:??58 Years?Sex:??Female?:??1965?? Patient Information Discharge Location: W4 Primary Care Physician: Sherif Christine MD Admit Date/Time: 04/05/24 13:36 Discharge Disposition Discharge Disposition: Residential Facility/Rehab Discharge Diagnosis Headache (R51.9) Hypertensive emergency (I16.1) History of cervical discectomy (Z98.890) Neck and shoulder pain (M54.2) History of stroke with residual deficit (I69.30) History of urinary retention (Z87.898) Chronic indwelling Quinonez catheter (Z97.8) HTN (hypertension) (I10) HLD (hyperlipidemia) (E78.5) Taking medication for chronic disease (R69) Leukocytosis (D72.829) _ Discharge Medications Acetaminophen (acetaminophen 325 mg oral tablet)?975?Milligram?By Mouth?Every 6 hours Albuterol (Proventil HFA 90 mcg/inh inhalation aerosol with adapter)?2?puff(s)?Inhalation?Every 4 hours Aripiprazole (ARIPiprazole 10 mg oral tablet)?10?Milligram?1?tablet?By Mouth?Daily Ascorbic Acid (Vitamin C 500 mg oral tablet)?1?tab(s)?500?Milligram?By Mouth?Daily Atorvastatin (atorvastatin 20 mg oral tablet)?1?tab(s)?20?Milligram?By Mouth?Daily Baclofen (baclofen 10 mg oral tablet)?10?Milligram?By Mouth?3 times a day?as needed?for 7?Days?Spasm Cetirizine (cetirizine 10 mg oral tablet)?TAKE ONE TABLET BY MOUTH EVERY DAY Famotidine (famotidine 20 mg oral tablet)?40?Milligram?2?tablet?By Mouth?Daily Gabapentin (gabapentin 300 mg oral capsule)?900?Milligram?By Mouth?3 times a day Hydromorphone (Dilaudid 4 mg oral tablet)?8?Milligram?By Mouth?Every 4 hours?as needed?Pain , Moderate HydrOXYzine (hydrOXYzine pamoate 50 mg oral capsule)?1?capsule?50?Milligram?By Mouth?2 times a day?as needed?as needed for anxiety Ibuprofen (ibuprofen 600 mg oral tablet)?600?Milligram?By Mouth?Every 6 hours?as needed?Pain , Mild Lidocaine Topical (Lidoderm 5% film)?1 patch?Topically?Daily?LEAVE ON FOR 12 HOURS, THEN OFF FOR 12 HOURS DIRECTED. Lisinopril (lisinopril 40 mg oral tablet)?TAKE ONE TABLET EVERY MORNING MethylPREDNISolone (Medrol Dosepak 4 mg oral tablet)?1?pack/packet?By Mouth?Daily?for 6?Days?as directed on package labeling Oxycodone (oxyCODONE 5 mg oral tablet)?5?Milligram?By Mouth?Every 4 hours?as needed?for 7?Days?Pain , Moderate Polyethylene Glycol 3350 (MiraLax Powder)?1?pack/packet?17?gram?By Mouth?Daily Senna (senna 187 mg oral tablet)?2?tab(s)?17.2?Milligram?By Mouth?Daily Venlafaxine (venlafaxine 75 mg oral capsule, extended release)?75?Milligram?1?capsule?By Mouth?Daily ?? Medications Started Ibuprofen (ibuprofen 600 mg oral tablet)?600?Milligram?By Mouth?Every 6 hours?as needed?Pain , Mild Hydromorphone (Dilaudid 4 mg oral tablet)?8?Milligram?By Mouth?Every 4 hours?as needed?Pain , Moderate Medications Discontinued Tizanidine Doses Changed Acetaminophen (acetaminophen 325 mg oral tablet)?975?Milligram?By Mouth?Every 6 hours Allergies Allergies ?(Active and Proposed Allergies Only) NKA? (Severity: Unknown severity, Onset: Unknown) ? PCP Follow-Up/Heads-Up ??? Pt admitted for HTN emergency and headache, now stable ??? Pt followed by pain team and was given a pain regimen that pt will be d/c on will need fu with PCP and neurosx for weaning (per pain team, pain should last 6-8 week) ??? Please fu in 1-2 weeks ??? Restart Medrol dose pack Future Appointments 2023 3:30 PM EDT ?? Where: [facility] [address] [place] [address] Drive [address] [place] [address]- Status: Pending Wednesday 3:00 PM EDT ?? With: Cade Hernandez MD Where: [facility] [address] [facility] 3rd Floor, [address] [place] [address]- Status: Pending Hospital Course Cheryl is a 58 y/o F with a PMHx of hemorrhagic stroke (January 2024 with mild residual left-sided weakness), hypertension, hyperlipidemia, urinary retention; recent neurosurgical admission 03/31 to 04/04 for C5-C7 ACDF and discharged on 04/04 (with CCB constant neck pain with radiation to RUE with improvement with Decadron; d/c with Medrol dose pack). Admitted for elevated BP and headache in the setting of not receiving nighttime meds; briefly on nicard gtt, after brief complication with hypotension and dose of midodrine, now stable with Lisinopril. Now tx for neck pain with APS assiting with titration of pain meds. No acute neurosx intervention. ?? Hypertensive emergency (I16.1) HTN (I10) Headache (R51.9) ??? Pt d/c to rehab, but post-op day 1 did not receive night time meds and woke up with severe painand headache, blood pressure of 240 ??? Briefly on nicard gtt, after brief complication with hypotension and dose of midodrine, now stable with Lisinopril ??? Headache in the setting of uncontrolled hypertension; Head CT reported No acute intracranial abnormality. ?? Recommendation: ??? Continue home Lisinopril 40 mg daily ??? Continue to monitor BP ?? History of cervical discectomy (Z98.890) Neck and shoulder pain (M54.2) ??? Recent neurosurgical admission 03/31 to 04/04 for C5-C7 ACDF and discharged on 04/04 ??? Post-operative course was complicated by constant neck pain with radiation to the right upper extremity with numbness and tingling for which she was admitted from 03/31-04/04 with improvement with Decadron ??? D/C with medrol dosepack, baclofen, tizanidine, gabapentin from prior admission/DC plan ??? Given recent surgery, patient is not a candidate for neuraxial intervention ??? No significantly new findings from MRI that might explain her symptoms ?? Recommendation: ??? Given the escalating pain, consulted APS, appreciate recommendations ??--- Continue PO dilaudid to 8mg q4h PRN ??--- Continue gabapentin to 900mg TID ??--- Continue Baclofen 10 mg TID, discontinue tizanidine ??--- Continue acetaminophen 975mg q6h ??--- Continue lidoderm patch to upper back ??--- Continue ibuprofen 600mg TID ??? Restart Medrol Dose pack ??? FU with neurosurgery for pain management and fu ?? Leukocytosis (D72.829) ??? Likely secondary to steroids that was started. No infectious symptoms. ??? Monitor WBC fever curve and hold off on empirical antibiotics for now. ? History of stroke with residual deficit (I69.30) HLD (E78.5) ??? CT head was unremarkable; No new abnormality ??? Continue atorvastatin 20 mg daily ? History of urinary retention (Z87.898) Chronic indwelling Quinonez catheter (Z97.8) ??? Patient with history of urine retention with chronic Quinonez ??? She reports her Quinonez was changed 04/04 on arrival to rehab ??? Maintain Quinonez, orders placed, she will need routine Quinonez change as outpatient ? Anxiety ??? Continue home aripiprazole 10 mg daily ??? Continue hydroxyzine 50 mg BID PRN ??? Continue venlafaxine 75 mg daily ? FULL CODE ?? Objective Vital Signs?? Temperature: 97.7 DegF (04/11/24 08:02:00) Temperature Route: Oral (04/11/24 08:02:00) Pulse Rate: 55 bpm (04/11/24 08:02:00) Respiratory Rate: 18 br/min (04/11/24 08:02:00) Systolic Blood Pressure:??149 mm Hg??High (04/11/24 08:02:00) Diastolic Blood Pressure:??92 mm Hg??High (04/11/24 08:02:00) Blood pressure sites: Arm, right (04/11/24 08:02:00) Mean Arterial Pressure: 111 mm Hg (04/11/24 08:02:00) Pulse Pressure: 57 mm Hg (04/11/24 08:02:00) Oxygen Saturation: 97 % (04/11/24 08:02:00) Mode of Delivery (Oxygen): Room air (04/11/24 08:02:00) Early Warning Score: 2 (06/04/24 09:28:27) ? Intake/Output? 04/05 13:36 04/11 07:00 04/10 07:00 04/09 07:00 04/08 07:00 ?? 04/11 11:09 04/11 11:09 04/11 06:59 03 06:59 04/09 06:59 Intake ? 5148 ?540 ?480 ? 1200 ? 1080 Output ?57246 ?0 ? 2450 ? 2100 ? 3450 Net Total ? -22085 ?540 ?-1970 ? -900 ?-2370 ? . Physical Exam General: Patient in no acute distress?? HEENT: normocephalic, atraumatic, PERRLA, EOMI, moist mucous membranes with no oral lesions. No lymphadenopathy or thyromegaly appreciated.?? Respiratory: bilateral equal air entry, clear to auscultation with no wheezes or crackles. Adequaterespiratory rate and effort on room air.?? CVS: regular rate and rhythm, S1 and S2 present, no murmurs, rubs or gallops. No JVD.?? Abdomen: soft, non tender, non distended, bowel sounds present, no organomegaly.?? 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 Consultants Acute Pain Service: Augustin VIERA, Berta PM&R: Julia WEBER, Fanny Segura Patient Education Titles Web[employer] Ign[employer] Patient Education - Neck Exercises: Neck Isometrics?? [employer] Patient Education - Neck Pain?? [employer] Patient Education - Depression?? Follow-Up Appointments Added Follow Up ?Time Frame ?Comments Emmett VIERA, Sherif?1 to 2 weeks Patient Instructions You were admitted to the hospital because your blood pressure was elevated and for headache. You were treated??with medications. You were??also??treated for neck pain. You will be discharged on a pain regimen, please follow with your PCP and neurosurgery for follow up on this.? If you feel extremely sick/fatigued, chest pain, shortness of breath, increased swelling, abdominaltenderness, or any other symptoms that concern you, please come back to the hospital or go to any health care provider.?? Post Discharge Care Diet: ??Cardiac diet ?? Activity: ??Ambulate with assistance 3 times a day unless otherwise specified ?? Code Status: ??Full Resuscitation ?? Condition: ??fair ?? Prognosis: ??Fair ?? Results Discharge Labs BLOOD COUNT & DIFF WBC 12.3 k/mm3 (High)?? 04/11/2024 07:17 RBC 4.52 m/mm3 ()?? 04/11/2024 07:17 Hgb 13.1 Gm/dL ()?? 04/11/2024 07:17 Hct 39.7 % ()?? 04/11/2024 07:17 MCV 87.8 femtoliters ()?? 04/11/2024 07:17 MCH 29.0 pg ()?? 04/11/2024 07:17 MCHC 33.0 g/dL ()?? 04/11/2024 07:17 Platelet Count 388 k/mm3 ()?? 04/11/2024 07:17 RDW-SD 41.0 femtoliters ()?? 04/11/2024 07:17 MPV 9.7 femtoliters ()?? 04/11/2024 07:17 Nucleated RBC (Automated) 0.0 #/100 WBC'S ()?? 04/11/2024 07:17 Abs. NRBC 0.0 k/mm3 ()?? 04/11/2024 07:17 Abs. Neut 12.8 k/mm3 (High)?? 04/09/2024 06:50 Abs. Lymph 2.0 k/mm3 ()?? 04/09/2024 06:50 Abs. Culberson 0.7 k/mm3 ()?? 04/09/2024 06:50 Abs. Eo 0.0 k/mm3 ()?? 04/09/2024 06:50 Abs. Baso 0.0 k/mm3 ()?? 04/09/2024 06:50 Neut % 81.8 % (High)?? 04/09/2024 06:50 Lymph % 12.6 % (Low)?? 04/09/2024 06:50 Culberson % 4.5 % ()?? 04/09/2024 06:50 Eos % 0.0 % ()?? 04/09/2024 06:50 Baso % 0.1 % ()?? 04/09/2024 06:50 Imm Gran 1.0 % ()?? 04/09/2024 06:50 Abs. Imm Gran 0.2 k/mm3 ()?? 04/09/2024 06:50 ?? CARDIAC Nt-Probnp 1038 pg/mL (High)?? 04/05/2024 11:56 High Sensitivity Troponin (HSTnT) 11 ng/L ()?? 04/05/2024 20:15 ?? CHEM GENERAL Sodium 137 mmol/L ()?? 04/11/2024 07:17 Potassium 5.0 mmol/L ()?? 04/11/2024 07:17 Chloride 101 mmol/L ()?? 04/11/2024 07:17 Bicarbonate Level 25 mmol/L ()?? 04/11/2024 07:17 Anion Gap 11 ()?? 04/11/2024 07:17 Glucose Level 118 mg/dL (High)?? 04/11/2024 07:17 Glucose, POC 74 mg/dL ()?? 04/05/2024 11:54 BUN 30 mg/dL (High)?? 04/11/2024 07:17 Creatinine-Blood 0.74 mg/dL ()?? 04/11/2024 07:17 Estimated GFR Creatinine 94 ML/MIN/1.73 M2 ()?? 04/11/2024 07:17 Calcium 9.2 mg/dL ()?? 04/11/2024 07:17 Phosphorus 3.3 mg/dL ()?? 04/07/2024 07:32 Magnesium 2.1 mg/dL ()?? 04/07/2024 07:32 Protein, Total 6.3 Gm/dL ()?? 04/06/2024 03:59 Albumin 3.9 Gm/dL ()?? 04/06/2024 03:59 AG Ratio 1.6 ()?? 04/06/2024 03:59 Alkaline Phosphatase 79 units/L ()?? 04/06/2024 03:59 AST (SGOT) 8 units/L ()?? 04/06/2024 03:59 ALT (SGPT) 11 units/L ()?? 04/06/2024 03:59 Bilirubin, Total 0.3 mg/dL ()?? 04/06/2024 03:59 ?? HEME OTHER Hold Lavender Top SPECIMEN DISCARDED AFTER 24 HOURS. ()?? 04/05/2024 20:15 ? MISC. CHEMISTRY Procalcitonin 0.03 ng/mL ()?? 04/06/2024 03:59 Hold Gel Top SPECIMEN DISCARDED AFTER 1 WEEK ()?? 04/05/2024 20:15 ?? URINE OTHER Est Creatinine Clearance 69.71 mL/min ()?? 04/11/2024 09:28 ? VIROLOGY COVID-19 PCR Specimen Source NASAL ()?? 04/06/2024 17:00 COVID-19 PCR Result NEGATIVE ()?? 04/06/2024 17:00 ? Microbiology ?? COVID-19 (2019 Novel Coronavirus) PCR?? Completed?? Source: Nasal Body Site: Nose Collected Dt/Tm: 04/06/2024 16:45 Last Updated Dt/Tm: 04/06/2024 18:23 ?(04/08/2024 18:19 EDT MRI Cervical Spine W/O Contrast) * Final Report * ?? Reason For Exam c5-c7 ACDF 03/20, postop continued pain and radicular symptoms;Other: ?? RESULT: MRI Cervical Spine W/O Contrast MRI Cervical Spine W/O Contrast ?? Reason: Other:; c5-c7 ACDF 03 20, postop continued pain and radicular symptoms; Clinical Question(s): Cord Hematoma; Order Comment: Please see Reference Text for complete list of contraindications ??Cord Hematoma ?? TECHNIQUE: MRI of the cervical spine was performed without intravenous contrast utilizing sagittal T1, sagittal T2, and sagittal STIR sequences. Axial sequences were not obtained as the patient couldnot tolerate he's examination and a ventral patient was medicated she was scratching the site of the machine and ended the exam. ?? COMPARISON: MRI 03/14/2024 ?? FINDINGS:? LOCALIZER: Additional entire spine T2 localizers were obtained. ?? Sagittal T2-weighted localizer images include the cervical, thoracic, and lumbar spine. No axial images were obtained through the thoracic and lumbar spine, but the sagittal images do provide a limited survey examination. Thoracic spine alignment is preserved. Vertebral body heights are normal. There is a stable T2 hyperintense lesion in the T9 vertebral body. The thoracic canal appears patent. The lumbar spine alignment is unchanged with anterolisthesis of L5 on S1. The vertebral body heights appear maintained. The previously seen lesion at L1 is much less conspicuous due to motion. No mass is identified. There is no evidence of discitis or osteomyelitis. ?? Incompletely imaged sigmoid colonic diverticulosis is noted. ?? ALIGNMENT, VERTEBRAE, MARROW, AND DISCS: This examination is significantly degraded by motion. There is anterior spinal fusion with instrumentation at C5, C6, and C7, new since the prior examination.The alignment appears maintained. Vertebral body heights are preserved. There is no significant marrow signal abnormality within the confines of motion. There is a mild diffuse disc bulge and posterior endplate spurs at C4-C5 deforming the thecal sac. There is disc desiccation at C2-C3, C3-C4, and C7-T1 with a minimal disc bulge at C7-T1. The previously pain prominent this bulges or herniations at C4-C5, C5-C6, and C6-C7 are no longer present. ?? POSTERIOR FOSSA AND CORD: Given the degree of motion and lack of axial images, the signal within the cord cannot be evaluated. The visualized posterior fossa is unremarkable within the confines of motion. ?? PARASPINAL TISSUES: The paraspinal soft tissues are grossly unremarkable. There is no significant prevertebral soft tissue thickening. ?? The craniocervical junction and C1-C2 articulation are preserved. ?? The canal appears improved fat C5-C6 and C6-C7. There is no canal stenosis at C2-C3, C3-C4, C7-T1, or in the upper thoracic spine. Accurate evaluation of the foramina is suboptimal due to motion. ?? IMPRESSION: ?? New anterior spinal fusion with a limitation at C5, C6, and C7. Improved appearance of the canal atC5-C6 and C6-C7 within the confines of motion. ?? Evaluation of the cord is suboptimal due to significant motion and lack of axial images. ? WSN: [id number] [1] (04/08/2024 18:00 EDT MRI Brain W/O Contrast) ?? Reason For Exam Pain/Trauma ?? RESULT: MRI Brain W/O Contrast MRI Brain W/O Contrast ?? INDICATION: Reason: Pain Trauma; Clinical Question(s): Hematoma; Order Comment: Please see Reference Text for complete list of contraindications ??Hematoma ?? TECHNIQUE: MRI of the brain was performed without contrast utilizing sagittal T1, axial T2, axial FLAIR, axial SWAN, and axial DWI sequences. ?? COMPARISON: MRI of 01/30/2024, CT head of 04/05/2024. ?? FINDINGS:? BRAIN and EXTRA-AXIAL SPACES: The midline structures, including sella, corpus callosum, and craniocervical junction, are unremarkable. There is no mass effect, midline shift, or effacement of the basal cisterns. On diffusion weighted imaging, there are no regions of restricted diffusion to indicatean acute or subacute infarct. Subacute/chronic blood products in the right posterior limb of internal capsule/thalamus are noted, significantly improved since prior MRI of 02/04/2024. Minimal residual T1 hyperintense signal is present. The previously seen mass effect has resolved. There are additional punctate foci of chronic microhemorrhages in the supratentorial and infratentorial brain, unchanged. A small chronic lacunar infarct in the left centrum semiovale is redemonstrated. Additional mild to moderate T2 hyperintense foci are present in the periventricular and subcortical white matter, similar to prior examination. The previously seen FLAIR hyperintensity surrounding the evolving right supratentorial hematoma has resolved. ?? Ventricles, cisterns, and sulci are normal in size and configuration, without hydrocephalus. No abnormal extra-axial fluid collections are seen. Meningeal surfaces are normal. ? Major intracranial flow voids are present. ?? EXTRACRANIAL SOFT TISSUES: Orbits are unremarkable. There is a small mucous retention cyst or polypin the inferior left maxillary sinus, unchanged. The paranasal sinuses and mastoid air cells are clear.? BONES: Marrow signal is preserved. ? IMPRESSION: ?? 1. Expected evolution of the right internal capsule and thalamic hemorrhage with resolution of the previously seen surrounding vasogenic edema, mass effect, and midline shift. No new acute/subacute infarct, mass, new hemorrhage, or other acute intracranial abnormality.? 2. Stable mild to moderate T2/FLAIR hyperintense foci in the white matter, nonspecific but most likely reflecting chronic small vessel disease.? 3. Stable additional punctate chronic microhemorrhages, probably hypertensive in origin. If patientis normotensive, cerebral amyloid angiopathy would be the differential. Clinical correlation is advised. WSN: [id number] [2] (04/05/2024 12:47 EDT Chest Portable) * Final Report * ?? Reason For Exam Stroke;Other: ?? RESULT: Chest Portable Chest Portable? Reason: Other:; Stroke; Clinical Question(s): CHF ?? COMPARISON: Multiple prior chest radiographs with the most recent dated 02/06/2024. ?? FINDINGS: ?? LINES AND TUBES:?? None. ?? LUNGS AND PLEURA: Minimal low lung volumes. Clear lungs. Normal pulmonary vascularity.?? No pleural effusion.?? No pneumothorax. ?? HEART, MEDIASTINUM AND CHARO:?? Heart is normal in size. Normal mediastinal and hilar contour. ?? BONES AND SOFT TISSUES:?? No acute abnormality. Mild degenerative change both shoulders. ?? ACDF lower cervical spine. ?? Moderate multilevel degenerative change lower thoracic spine. ?? Several surgical clips are seen in the right axilla. ?? IMPRESSION: ?? No acute abnormality. ? WSN: [id number] ? [3] (04/05/2024 12:[address] Angio Head Hyperacute Stroke) ?? Reason For Exam Stroke;Other: ?? RESULT: CT Angio Head Hyperacute Stroke CT Angio Head Hyperacute Stroke, CT Angio Neck Hyperacute Stroke ?? Reason: Headache and elevated blood pressure. ?? TECHNIQUE: CT angiogram of the head and [...] tube modulation was used to optimize exposure parameters.? RADIATION DOSE PARAMETERS:? CTDIvol Body: 11.55 mGy, ??DLP Body: 613 mGy*cm. ? COMPARISON: Noncontrast CT head performed concurrently. Prior CTs and CTA head and neck, most recently 03/12/2024. MRI of the brain, 02/04/2024. ?? FINDINGS:? CTA OF THE NECK:? Arch: There is a three vessel aortic arch. There is mild atherosclerotic plaque of the aortic arch,but origins of the supra aortic vessels are patent.? Right carotid system: The common carotid and cervical internal carotid arteries are patent. No stenosis (0%) by NASCET criteria. ?? Left carotid system: The common carotid and cervical internal carotid arteries are patent. There iscalcified atherosclerotic plaque at the carotid bifurcation, but no ICA stenosis (0%) by NASCET criteria. ?? There is a co-dominant vertebral artery system. ?? Right vertebral: Patent. ?? Left vertebral: There is probably moderate narrowing at the origin. There is also mild narrowing along the V1 and V3 segments due to calcified plaque. Beyond this, the extracranial vertebral is normal in caliber. ?? Other: Soft tissues and bones: No evidence of lymphadenopathy or mass. ??The thyroid is unremarkable. Visualized lungs are blurred by motion artifact, without significant superimposed airspace opacity. There has been ACDF C5-C7 utilizing an anterior plate and screws with intervertebral disc spacers. Degenerative changes are seen elsewhere in the spine. ? CTA OF THE HEAD: ?? Anterior circulation: Mild calcification is seen along the intracranial ICAs without significant narrowing. The anterior cerebral arteries and bilateral M1 and proximal M2 branches are patent and normal in caliber. ?? Posterior circulation: There is mild narrowing of the intradural right vertebral due to calcified plaque. The left vertebral is patent. The basilar artery, superior cerebellar arteries, and posteriorcerebral arteries are patent with mild narrowing of the distal right P2 segment. Small bilateral posterior communicating arteries are noted with infundibulum at the left P-comm origin. ?? Veins: Major dural venous sinuses are patent. ?? Other:?? Soft tissues and bones: No midline shift or effacement of the basal cisterns. No space-occupying hemorrhage. No acute territorial loss of chakraborty-white matter differentiation. There is hypodensity within the right thalamocapsular region in the area of prior hemorrhage. Orbits are unremarkable. No significant opacification in the paranasal sinuses or mastoid air cells.? IMPRESSION: ? 1. ??No proximal occlusion or high grade stenosis in the major arteries of the head and neck. 2. ??Moderate narrowing at the left vertebral artery origin. ? WSN: [id number] ?? [4] (04/05/2024 12:[address] Angio Neck Hyperacute Stroke) * Final Report * ?? Reason For Exam Aneurysm, neck vessel(s);Other: ?? RESULT: CT Angio Neck Hyperacute Stroke CT Angio Head Hyperacute Stroke, CT Angio Neck Hyperacute Stroke ?? Reason: Headache and elevated blood pressure. ?? TECHNIQUE: CT angiogram of the head and [...] tube modulation was used to optimize exposure parameters.? RADIATION DOSE PARAMETERS:? CTDIvol Body: 11.55 mGy, ??DLP Body: 613 mGy*cm. ? COMPARISON: Noncontrast CT head performed concurrently. Prior CTs and CTA head and neck, most recently 03/12/2024. MRI of the brain, 02/04/2024. ?? FINDINGS:? CTA OF THE NECK:? Arch: There is a three vessel aortic arch. There is mild atherosclerotic plaque of the aortic arch,but origins of the supra aortic vessels are patent.? Right carotid system: The common carotid and cervical internal carotid arteries are patent. No stenosis (0%) by NASCET criteria. ?? Left carotid system: The common carotid and cervical internal carotid arteries are patent. There iscalcified atherosclerotic plaque at the carotid bifurcation, but no ICA stenosis (0%) by NASCET criteria. ?? There is a co-dominant vertebral artery system. ?? Right vertebral: Patent. ?? Left vertebral: There is probably moderate narrowing at the origin. There is also mild narrowing along the V1 and V3 segments due to calcified plaque. Beyond this, the extracranial vertebral is normal in caliber. ?? Other: Soft tissues and bones: No evidence of lymphadenopathy or mass. ??The thyroid is unremarkable. Visualized lungs are blurred by motion artifact, without significant superimposed airspace opacity. There has been ACDF C5-C7 utilizing an anterior plate and screws with intervertebral disc spacers. Degenerative changes are seen elsewhere in the spine. ? CTA OF THE HEAD: ?? Anterior circulation: Mild calcification is seen along the intracranial ICAs without significant narrowing. The anterior cerebral arteries and bilateral M1 and proximal M2 branches are patent and normal in caliber. ?? Posterior circulation: There is mild narrowing of the intradural right vertebral due to calcified plaque. The left vertebral is patent. The basilar artery, superior cerebellar arteries, and posteriorcerebral arteries are patent with mild narrowing of the distal right P2 segment. Small bilateral posterior communicating arteries are noted with infundibulum at the left P-comm origin. ?? Veins: Major dural venous sinuses are patent. ?? Other:?? Soft tissues and bones: No midline shift or effacement of the basal cisterns. No space-occupying hemorrhage. No acute territorial loss of chakraborty-white matter differentiation. There is hypodensity within the right thalamocapsular region in the area of prior hemorrhage. Orbits are unremarkable. No significant opacification in the paranasal sinuses or mastoid air cells.? IMPRESSION: ? 1. ??No proximal occlusion or high grade stenosis in the major arteries of the head and neck. 2. ??Moderate narrowing at the left vertebral artery origin. ? WSN: [id number] ?? [5] (04/05/2024 12:[address] Head-Hyper Acute Stroke) * Final Report * ?? Reason For Exam Neuro deficit, acute, stroke suspected;Other: ?? RESULT: CT Head-Hyper Acute Stroke CT Head-Hyper Acute Stroke? CLINICAL INDICATION: Reason: Other:; Neuro deficit, acute, stroke suspected; Clinical Question(s): Other:; Hematoma Infarction; Order Comment:. ? PRIOR EXAMS: ??03/12/2024.. ? TECHNIQUE: Head CT was performed without intravenous contrast, using axial technique and reconstructed in axial and coronal plane. Iterative reconstruction techniques are used to optimize dose and image quality. ? FINDINGS: ?? BRAIN: ?? There is no infarct. There is no intracerebral hemorrhage. There is no mass. ?? VENTRICLES, SULCI, AND CISTERNS: ??The ventricles and sulci are symmetrical and normal. ?? WHITE MATTER: ??No white matter abnormality. ?? EXTRA AXIAL SPACES: There is no abnormal epidural, subdural, or subarachnoid blood or fluid. ?? SKULL: There is no skull fracture.. ?? PARANASAL SINUSES: Clear. ?? TEMPORAL BONES: The mastoid air cells are clear, as are the middle ear cavities. ? IMPRESSION: 1. No acute intracranial abnormality. ?? 2. No skull fracture. WSN: [id number] ? Ordering Physician: Reinaldo Fung [6] ?? 35??minutes spent on discharge [1]??MRI Cervical Spine W/O Contrast; Dixie Brewer MD 04/08/2024 18:19 EDT [2]??MRI Brain W/O Contrast; Dixie Brewer MD 04/08/2024 18:00 EDT [3]??Chest Portable; Silvina VIERA, Christo V 04/05/2024 12:47 EDT [4]??CT Angio Head Hyperacute Stroke; Chanelle Nicole MD 04/05/2024 12:17 EDT [5]??CT Angio Neck Hyperacute Stroke; Chanelle Nicole MD 04/05/2024 12:17 EDT [6]??CT Head-Hyper Acute Stroke; Herminio VIERA, Scar Phillips 04/05/2024 12:14 EDT * Yury Gan MD: PERFORM Event Display: Discharge/Transfer Note Hospital Authored Date: [id number] I evaluated this patient on this date of service and confirmed the interim history and physical exam findings as documented. ??I discussed the assessment and management plan with ??Magdalena and have reviewed the??resident's??documentation for accuracy and completeness. ??I agree with the assessment and plan as stated. ?? Discharge held due to lack of bed availability at receiving facility, this note will serve as a progress note for the date of service. * Catherine Nichols DO: PERFORM Event Display: Patient Education Leaflets Authored Date: [id number] Neck Exercises: Neck Isometrics ?? [id number] Neck Exercises: Neck Isometrics To start, sit in a chair with your feet flat on the floor. Your weight should be slightly forward so that you???re balanced evenly on your buttocks. Relax your shoulders and keep your head level. Using a chair with arms may help you keep your balance. 1. Press your palm against your forehead. Resist with your neck muscles. Hold for?? 10??seconds. Relax. Repeat 5 times. 2. Do the exercise again, pressing on the side of your head. Repeat?? 5??times.Switch sides. 3. Do the exercise again, pressing on the back of your head. Repeat?? 5??times. Note For your safety, check with your healthcare provider before starting an exercise program. ?? Last Reviewed Date: 2022 ?? [id number] [employer]. All rights reserved. This information is not intended as a substitute for professional medical care. Always follow your healthcare professional's instructions. ?? * Catherine Nichols DO: PERFORM Event Display: Patient Education Leaflets Authored Date: [id number] Neck Pain ?? [id number] Neck Pain Neck pain has several possible causes when there is no injury: ??? You can get a minor ligament sprain or muscle strain from a sudden minor neck movement. Sleeping with your neck in an awkward position can also cause this. ??? Some people respond to emotional stress by tensing the muscles of their neck, shoulders, and upper back. Chronic spasm in these musclescan cause neck pain and sometimes headaches. ??? Gradual??wear and tear of the joints in the spine can cause??degenerative arthritis. This can be a source of occasional or chronic neck pain. ??? The spinal disks may bulge and put pressure on a nearby spinal nerve. This can happen as a natural result of aging or repeated small injuries to the neck. The spinal disks are the cushions between each spi nal bone. This causes tingling, pain, or numbness that spreads from the neck to the shoulder, arm, or hand on one side. Acute neck pain usually gets better in 1 to 2 weeks. Neck pain related to disk disease, arthritis in the spinal joints, or spinal stenosis can become chronic and last for months or years. Spinal stenosis is narrowing of the spinal canal. X-rays are usually not ordered for the initial evaluation of neck pain. But X- rays may be done if you had a forceful physical injury, such as a car accident or fall. If pain continues and doesn???t respond to medical treatment, X-rays and other tests may be done at a later time. Less often, neck pain can be a sign of a more serious underlying medical condition. Home care ??? Rest and relax the muscles. Use a comfortable pillow that supports the head. It should also help keep the spine in a neutral position. The position of the head should not be tilted forward or backward. A rolled-up towel may help for a custom fit. ??? A soft cervical collar can help pain, especially pain with head movement. Your healthcare provider can tell you if this is appropriatefor your condition. ??? Some people find relief with??heat. Heat can be applied with either a warm shower or bath or??a moist towel heated in the microwave??and??massage.??Others prefer??cold packs. You can make an ice pack by placing ice in a plastic bag that seals at the top. Then wrap the bag with a thin towel.??Try both and use the method that feels best for??15 to??20 minutes, several times a day. ??? Whether using ice or heat, be careful that you don't injure your skin. Never put ice directly on the skin. Always wrap the ice in a towel or other type of cloth. This is very important, especially in people with poor skin sensations.? Try to reduce your stress level. Emotional stresscan lead to neck muscle tension and get in the way of or delay the healing process. ??? You may use??[id number] pain medicine??to control pain, unless another medicine was prescribed. If you have chronic liver or kidney disease or ever had a stomach ulcer or digestive bleeding, talk with yourprovider before??using these medicines. ?? Follow-up care Follow up with your healthcare provider if your symptoms don't show signs of improvement after 1 week. Physical therapy or more tests may be needed. If X-rays, CT scans, or MRI scans were taken, you'll be told of any new findings that may affect your care. ?? Call 911 Call 911 if you have: ??? Sudden??weakness or numbness in 1 or both arms ??? Neck swelling, difficulty or painful swallowing ??? Trouble breathing ??? Chest pain ?? When to get medical advice Call your healthcare provider right away if any of these occur: ??? Pain gets worse or spreads into1 or both arms ??? Weakness of arms or legs ??? Loss of bowel or bladder control ??? Increasing headache ??? Fever of 100.4??F (38??C) or higher, or as advised by your provider ?? Last Reviewed Date: 2022 ?? [id number] [employer]. All rights reserved. This information is not intended as a substitute for professional medical care. Always follow your healthcare professional's instructions. ?? * Kelsea Bauman: PERFORM Event Display: Patient Education Leaflets Authored Date: [id number] Depression ?? [id number] Depression Depression is a very common mental health problem. It's not just a state of being unhappy or sad. It's a true disease. The cause seems to be linked to a change in chemicals that send signals in the brain. These things increase a person???s risk of depression: ??? A family history of depression, alcoholism, or suicide ??? Chronic illness ??? Chronic pain ???Migraine headaches ??? High emotional stress Depression may be easier to see in others. You may have a hard time seeing it in yourself. It can show in many physical and emotional ways. These include: ??? Loss of appetite ??? Overeating ??? Not being able to sleep ??? Sleeping too much ??? A lot of tiredness not linked to physical activity ??? Restlessness or irritability ??? Slowness of movement or speech ??? Feeling sad or withdrawn ??? Loss of interest in things you once enjoyed ??? Trouble??concentrating, remembering,??or making decisions ??? Thoughts of harming or killing yourself, or thoughts that life is not worth living ??? Low self-esteem The treatment for depression may include both medicine and psychotherapy. Antidepressants can ease symptoms. They can also make it easier for you to do daily tasks. Therapy can offer emotional support. It can also help you understand things that may be causing the depression. Home care ??? Ongoing care and support help people manage this disease. Find a healthcare provider and therapist who meet your needs. Get help when you feel like you may be getting ill. ??? Be kind to yourself. Make it a point to do things that you enjoy. This may be gardening, walking in nature, or going to a movie. Reward yourself for small successes. ??? Take care of your body. Eat a balanced diet. Eat foods low in saturated fat. Eat a lot of fruits and vegetables. Exercise at least 3 times a week for 30 minutes. Even mild to moderate exercise like brisk walking can make you feel better. ??? Take medicine as prescribed. Don't stop your medicine or change the dose unless you talk with your healthcare provider. ??? Once you start medicine, expect your symptoms to get better slowly. Depression will lift over time. It doesn't get better right away. Ask your healthcare provider how long it will take for a medicine to start working. ??? Don't share your medicine. Don???t use someone else's medicine. ??? Tell your healthcare providers all the medicines you take. This includes prescription and kkfy-smk-uimujrl medicines. It includes vitamins and herbal supplements. Some supplements caninteract with medicines. They can cause dangerous side effects. Ask your pharmacist about medicine interactions when you have questions. ??? Don't make major decisions until you feel better. This incl udes things such as a job change, a divorce, or a marriage. ??? Don't drink alcohol. It can make depression worse. ??? Talk with your family and??trusted friends??about your feelings and thoughts.??Ask them to help you notice behavior changes early. You can then get help and, if needed, your medicine can be changed. ??? Talk with your healthcare provider if you are not getting better. They may change your medicine or have you try another treatment. ?? Follow-up care Follow up with your healthcare provider as advised. ?? Crisis care Call 988 if you have thoughts of harming yourself or others. When you call or text 988, you will beconnected to trained crisis counselors. An online chat option is also available. [employer] is free and available 31/05. 988 counselors will work with 911 to help you get the care you need. Call 911 if you: ??? Have trouble breathing ??? Are??very confused ??? Feel very drowsy or have??trouble awakening ??? Faint ??? Have new chest pain that becomes more severe, lasts longer, or spreadsinto your shoulder, arm, neck, jaw, or back ?? When to get medical care Call your healthcare provider right away if any of these happen: ??? Your symptoms get worse ??? You have extreme depression, fear, anxiety, or anger toward yourself or others ??? You feel out of control ??? You feel that you may try to harm yourself or another ??? You hear voices other people don't hear ??? You see things other people don't see ??? You don't sleep or eat for 3 days in a row ??? Friends or family express concern over your behavior and ask you to get help ?? Last Reviewed Date: 2022 ?? 2867-1416 The [employer]. All rights reserved. This information is not intended as a substitute for professional medical care. Always follow your healthcare professional's instructions. ?? Patient Care team information Care Team Personnel Name: Tania Vuong RN Position: [facility] RN Member Role: Primary Care Nurse Name: Francesca Galvan RN Position: S RN Member Role: Primary Care Nurse Name: Yohana Coffey RN Position: S RN Member Role: Primary Care Nurse Name: Patricia Beltran RN Position: S RN Member Role: Primary Care Nurse Name: Parvin Lema RN Position: S RN Member Role: Primary Care Nurse Name: Khoa Marcelo RN Position: S RN Member Role: Primary Care Nurse Name: Oscar Velasquez RN Position: [facility] RN Supv Member Role: Primary Care Nurse Name: Nancy Rivera RN Position: [facility] RN Member Role: Primary Care Nurse Name: Ericka Crane RN Position: [facility] RN Member Role: Primary Care Nurse Name: Patricia Han RN Position: S RN Member Role: Primary Care Nurse Name: Angie Green LPN Position: [facility] RN Member Role: Primary Care Nurse Name: Kyleigh Blount RN Position: [facility] RN Member Role: Primary Care Nurse Name: Parvin Walton RN Position: [facility] RN Member Role: Primary Care Nurse Name: Mere Vargas RN Position: [facility] RN Member Role: Primary Care Nurse Name: Sherif Christine MD Position: [facility] Outreach Member Role: PCP Address: Address: [address] [place] [address] [address] [place], [place] [address] Name: Walter Powell RN Position: [facility] RN Member Role: Primary Care Nurse Name: Ines Plasencia Position: [facility] RN Member Role: Primary Care Nurse Name: Joselyn Lafleur RN Position: [facility] RN Member Role: Primary Care Nurse Name: Manan Summers RN Position: [facility] RN Member Role: Primary Care Nurse Name: Hattie Weller RN Position: [facility] RN Member Role: Primary Care Nurse Name: Yesika Paris RN Position: [facility] RN Member Role: Primary Care Nurse Name: Janine Carranza RN Position: [facility] RN Member Role: Primary Care Nurse Name: Estefani Sterling RN Position: [facility] RN Member Role: Primary Care Nurse Name: Rosi Mosqueda LPN Position: [facility] RN Member Role: Primary Care Nurse Name: Jessica Booth Position: [facility] RN Member Role: Primary Care Nurse Care Team Related Persons Name: CLEVELAND VERDEY Address: [address] [facility] [place] [address] Name: JACLYN GARRIDO Address: home [place], [place] Name: LB PELAYO Address: home [address] [facility] [address] [place], [place]
--- OUTSIDE RECORDS SUMMARY | 2024-06-11 16:33 | XMS_ITS | Continuity of Care Document ---
Author Organization [facility] ter Address [address] [place] [address]- Care Team Providers Care Identity Management Consultant Name Role Phone Aliza Paul DO Primary Care Physician Encounter [facility] [place] Date(s): 03/09/24 - 03/10/[address] [address]- Discharge Disposition: A-D/C Home Attending Physician: Yuriy Gilbert MD Admitting Physician: Yuriy Gilbert MD Referring Physician: Not on Staff, Referring MD Allergies, Adverse Reactions, Alerts No Known Allergies Immunizations Given and Recorded Vaccine Date Status Refusal Reason SARS-CoV-2 mRNA (qrenxyi-oibg-fihon) vax 10/17/22 Given Rabies vaccine,purified chick embryo [...] EVERY DAY Start Date: 02/04/24 Status: Ordered oxyCODONE 5 mg oral tablet 5 mg, Tablet, By Mouth, Once, STAT, 03/09/24 22:33:00 EDT, Stop date 03/09/24 22:33:00 EDT Start Date: 03/09/24 Stop Date: 03/09/24 Status: Completed Proventil HFA 90 mcg/inh inhalation aerosol with [...] 1 2 3 Oxygen Saturation [94-100 %] 98 % (03/09/24 11:00 PM) 99 % (03/09/24 9:15 PM) 97 % (03/09/24 6:07 PM) Pulse Rate [55-90 bpm] 64 bpm (03/09/24 11:00 PM) 63 bpm (03/09/24 9:15 PM) 69 bpm (03/09/24 6:07 PM) Blood Pressure [90-138/55-84 mm Hg] 130/82mm Hg (03/09/24 11:00 PM) 131/80mm Hg (03/09/24 9:15 PM) 122/83mm Hg (03/09/24 6:07 PM) Respiratory Rate [16-30 br/min] 18 br/min (03/09/24 11:00 PM) 18 br/min (03/09/24 10:50 PM) 18 br/min (03/09/24 9:15 PM) Temperature [96.8-100.4 DegF] 98 DegF (03/09/24 9:15 PM) 99.1 DegF (03/09/24 6:07 PM) Mode of Delivery (Oxygen) Room air (03/09/24 9:15 PM) Temperature Route Oral (03/09/24 9:15 PM) Oral (03/09/24 6:07 PM) Dry Weight 69 kg (03/09/24 6:07 PM) Dry Weight Obtained Via Patient/family s tated (03/09/24 6:07 PM) Social History Social History Type Response Smoking Status Never (less than 100 in lifetime) entered on: 12/26/20 Sex Note * Cinda Valle: PERFORM Event Display: Patient Education Leaflets Authored Date: [id number] Quinonez Catheter Care ?? [id number] Quinonez Catheter Care A Quinonez catheter is a rubber tube that is placed through the urethra and into the bladder. The urethra is the opening where urine comes out. The catheter helps drain urine from the bladder. There is a small balloon on the end of the tube that is inflated after the catheter is put in place. This keeps the catheter from sliding out of the bladder. A Quinonez catheter is used when you are unable to pass urine (urinary retention). It's also used whenthere is loss of bladder control (incontinence). It's also used after bladder or prostate surgery. Home care ??? Finish taking any prescribed antibiotic medicine even if you are feeling better before then. ??? It's important to keep bacteria from getting into the collection bag. Don't disconnect the catheter from the collection bag. ??? Use a leg band to secure the drainage tube, so it doesn't pull on the catheter. ??? Don't try to pull or remove your catheter. This will injure your urethra. It must be removed by your healthcare provider or nurse. ??? Drain the collection bag when it becomesfull using the drain spout at the bottom of the bag. ?? Follow-up care Follow up with your healthcare provider, or as advised. This is for repeat urine testing and for catheter removal or replacement. ?? When to seek medical advice Call your healthcare provider right away if any of these occur: ??? Fever of 100.4??F (38??C) or higher, or as directed by your healthcare provider ??? Bladder pain or fullness ??? Abdominal swelling, nausea or vomiting, or back pain ??? Blood or urine leakage around the catheter ??? Bloody urine coming from the catheter (if a new symptom) ??? Catheter falls out ??? Catheter stops draining for 6 hours ??? Weakness, dizziness, or fainting ?? Last Reviewed Date: 2021 ?? 2814-2444 The [employer]. All rights reserved. This information is not [...] S Outreach Member Role: PCP Address: Address: [address] [place] [address]- Name: Kyleigh Blount RN Position: S RN Member Role: Primary Care Nurse Name: Parvin Walton RN Position: S RN Member Role: Primary Care Nurse Name: Yesika Paris RN Position: S RN Member Role: Primary Care Nurse Name: Jessica Booth Position: S RN Member Role: Primary Care Nurse Care Team Related Persons Name: JACLYN VERDE Address: home [place] [address] Name: JACLYN GARRIDO Address: home [place] [address] Name: LB PELAYO Address: home [address] [place] [address] [place] [address]
--- OUTSIDE RECORDS SUMMARY | 2024-06-11 16:33 | XMS_ITS | Continuity of Care Document ---
Author Organization [facility] y Address [address] [place] [address] Martine montaño, [address] [place] [address]- Care Team Providers Care Gas And Oil Checker Name Role Phone Aliza Paul DO Primary Care Physician [place] [facility] [place] 05/20/24 [facility] [address] [place] [address] Drive [address] [place] [address]- Attending Physician: Admtr, Napoleon8 Admitting Physician: Admtr, Ar8 Referring Physician: Admtr, Ar8 Allergies, Adverse Reactions, Alerts No Known Allergies Immunizations Given and Recorded Vaccine Date Status Refusal Reason SARS-CoV-2 mRNA (bovmmqa-huxa-ukgou) vax 10/17/22 Given Rabies vaccine,purified chick embryo [...] Team Personnel Name: Francesca Galvan RN Position: [facility] RN Member Role: Primary Care Nurse Name: Yohana Coffey RN Position: [facility] RN Member Role: Primary Care Nurse Name: Patricia Beltran RN Position: [facility] RN Member Role: Primary Care Nurse Name: Parvin Lema RN Position: [facility] RN Member Role: Primary Care Nurse Name: Khoa Marcelo RN Position: [facility] RN Member Role: Primary Care Nurse Name: Oscar Velasquez RN Position: [facility] RN Supv Member Role: Primary Care Nurse Name: Nancy Rivera RN Position: [facility] RN Member Role: Primary Care Nurse Name: Ercika Crane RN Position: [facility] RN Member Role: Primary Care Nurse Name: Patricia Han RN Position: [facility] RN Member Role: Primary Care Nurse Name: Angie Green LPN Position: [facility] RN Member Role: Primary Care Nurse Name: Aliza Paul DO Position: [facility] Outreach Member Role: PCP Address: Address: [address] [place] [address] Name: Kyeligh Blount RN Position: [facility] RN Member Role: Primary Care Nurse Name: Parvin Walton RN Position: [facility] RN Member Role: Primary Care Nurse Name: Mere Vargas RN Position: [facility] RN Member Role: Primary Care Nurse Name: Walter Powell RN Position: [facility] RN Member Role: Primary Care Nurse Name: Ines Plasencia RN Position: [facility] RN Member Role: Primary Care Nurse Name: Joselyn Lafleur RN Position: [facility] RN Member Role: Primary Care Nurse Name: Manan Summers RN Position: [facility] RN Member Role: Primary Care Nurse Name: Tania Sanders RN Position: [facility] RN Member Role: Primary Care Nurse Name: Hattie Weller RN Position: [facility] RN Member Role: Primary Care Nurse Name: Yesika Paris RN Position: [facility] RN Member Role: Primary Care Nurse Name: Janine Carranza RN Position: [facility] RN Member Role: Primary Care Nurse Name: Estefani Sterling RN Position: [facility] RN Member Role: Primary Care Nurse Name: Rosi Mosqueda LPN Position: [facility] RN Member Role: Primary Care Nurse Name: Jessica Booth LPN Position: [facility] RN Member Role: Primary Care Nurse Care Team Related Persons Name: JACLYN VERDE Address: home [address] [place] [address] Name: JACLYN GARRIDO Address: home [place], [place] Name: LB PELAYO Address: home [address] [facility] [address] [place], [place]
--- OUTSIDE RECORDS SUMMARY | 2024-06-11 16:33 | XMS_ITS | Continuity of Care Document ---
Author Organization [facility] ter Address [address] [place] [address]- Care Team Providers Care Nuisance Wildlife Trapper Name Role Phone Aliza Paul DO Primary Care Physician Encounter [facility] [place] Date(s): 02/28/24 - 02/28/[address] [address]- Encounter Diagnosis Anxiety(Final) - 02/28/24 Discharge Disposition: A-D/C Home Attending Physician: Ulises Sarabia MD Admitting Physician: Ulises Sarabia MD Referring Physician: Not on Staff, Referring MD Allergies, Adverse Reactions, Alerts No Known Allergies Immunizations Given and Recorded Vaccine Date Status Refusal Reason SARS-CoV-2 mRNA (nbgrbir-biqe-ypayc) vax 10/17/22 Given Rabies vaccine,purified chick embryo [...] [Reference Range]: 1 Oxygen Saturation [94-100 %] 99 % (02/28/24 12:51 PM) Pulse Rate [55-90 bpm] 72 bpm (02/28/24 12:51 PM) Blood Pressure [90-138/55-84 mm Hg] 124/ 78mm Hg (02/28/24 12:51 PM) Respiratory Rate [16-30 br/min] 18 br/mi n (02/28/24 12:51 PM) Temperature [96.8-100.4 DegF] 98 DegF (02/28/24 12:51 PM) Mode of Delivery (Oxygen) Room air (02/28/24 12:51 PM) Blood pressure sites Arm, right (02/28/24 12:51 PM) Temperature Route Oral (02/28/24 12:51 PM) Social History Social History Type Response Smoking Status Never (less than 100 in lifetime) entered on: 12/26/20 Sex Note * Ulises Sarabia MD: PERFORM Event Display: Patient Education Leaflets Authored Date: [id number] Anxiety??Reaction ?? [id number] Anxiety??Reaction Anxiety is the feeling we all get when we think something bad might happen. It is a normal responseto stress. It most often causes only a mild reaction. But it can interfere with daily life when anxiety is more severe. In some cases, you may not know what you???re anxious about. Anxiety seems to have both mental and physical triggers. You may have stress from home and family. Or work and social relationships. Anxiety tends to run in families. This may mean it???s linked to genes. During an anxiety reaction, you may feel: ??? Helpless ??? Nervous ??? Depressed ??? Grouchy Your body may show signs of anxiety in many ways. You may have: ??? Dry mouth ??? Shakiness ??? Dizziness ??? Weakness ??? Trouble breathing ??? Fast breathing ???Chest pressure ??? Sweating ??? Headache ??? Nausea ??? Diarrhea ??? Tiredness ??? Inability to sleep ??? Sexual problems Home care Try to find those things that set off anxiety in your life. They may not be obvious. They may include: ??? Daily hassles of life. This can include traffic jams, missed appointments, or car troubles. ???Major life changes. This means both good changes, such as a new baby or job promotion. This can also mean tough life changes, such as loss of a job or loss of a loved one. ??? Overload. This means feeling that you have too many responsibilities. And that you can't take care of all of them. ??? Feeling helpless. You may feel you don???t have any control or choices. You may feel that your problems can't be solved. Notice how your body reacts to stress. This will help you take action before the stress sets off anxiety. When you can, make changes to reduce the sources of your stress. But stress in life often can't be prevented. It is important to learn how to manage stress to reduce anxiety. There are many proven methods that will reduce your anxiety. These include: ??? Exercise ??? Good nutrition ??? Getting enough sleep ??? Relaxation methods ??? Breathing exercises ??? Visualization ??? Biofeedback ??? Meditation ??? Counseling ??? Medicine For more information about this, talk with your healthcare provider. Or check online or at your local library or bookstore. You'll find many books and audiobooks on this subject. ?? Follow-up care If you feel your anxiety is not getting better with self-help, call your healthcare provider. Or make an appointment with a counselor. You may need short-term counseling or medicine to help you manage anxiety. ?? Call 911 Call 911 if any of the following occur: ??? Trouble breathing ??? Confusion ??? Drowsiness or trouble waking up ??? Fainting ??? Rapid heart rate ??? Seizure ??? New chest pain that becomes more severe, lasts longer, or spreads into your shoulder, arm, neck, jaw, or back Call or text 988 if you have thoughts of harming yourself or others. You will be connected to trained crisis counselors at the [employer] Suicide Prevention Lifeline. An online chat option is also available at [email or web address] Technology.org. You can also call [employer] at [phone]-ZGMS ([phone]). [employer] is free and available 31/05. ?? When to get medical advice Call your healthcare provider right away if any of the following occur: ??? Symptoms that don't improve or get worse, such as feelings of hopelessness or overwhelming sadness ??? Severe headache not eased by rest and mild pain medicine The [employer] Suicide Prevention Lifeline is available at 457-749-YXBC ([phone]). The Lifeline is available 31/05 and provides free and confidential support. The Lifeline also has an online chat at www.Pyreg.org. ?? Last Reviewed Date: 2022 ?? 8408-3614 [employer]. All rights reserved. This information is not intended as a substitute for professional medical care. Always follow your healthcare professional's instructions. ?? Patient Care team information Care Team Personnel Name: Yohana oCffey RN Position: S RN Member Role: Primary Care Nurse Name: Erasmo Landry RN Position: S RN Member Role: Primary Care Nurse Name: Patricia Beltran RN Position: S RN Member Role: Primary Care Nurse Name: Oscar Velasquez RN Position: [facility] RN Supv Member Role: Primary Care Nurse Name: Aliza Paul DO Position: S Outreach Member Role: PCP Address: Address: [address] [place] [address] Name: Kyleigh Blount RN Position: S RN Member Role: Primary Care Nurse Name: Parvin Walton RN Position: S RN Member Role: Primary Care Nurse Name: Yesika Paris RN Position: S RN Member Role: Primary Care Nurse Name: Jessica Booth Position: S RN Member Role: Primary Care Nurse Care Team Related Persons Name: JACLYN VERDE Address: home [place], [place] Name: JACLYN GARRIDO Address: home [place], [place] Name: LB PELAYO Address: home [address] [place] [address]
[2024-06-11] MEDS: 0.9 % Sodium Chloride 1,000 ML 999 ML IV ×2 (17:31→21:14)
--- NOTE | 2024-06-11 17:37 | PC.NURSE ---
still no urine output noted. provider notified/aware. 20gIV placed in the right AC - IVF administered per provider order. will obtain specimen when able.
[2024-06-11 19:14] VITALS: BP 134/92; PULSE 70; RESP 14; TEMP 36.7; O2SAT 94
[2024-06-11 22:26] VITALS: BP 130/70; PULSE 76; RESP 20; TEMP 36.6; O2SAT 94
[2024-06-11 22:58] LABS: Appearance Urine Clear; Color Urine Dark Yellow; Glucose Urine UA Negative (Negative); Leukocyte Esterase Urine Trace (Negative); Nitrite Urine Negative (Negative); PH 5.5 (5.0-9.0); Specific Gravity - Urine 1.015 (1.005-1.025); UMIC TRIGGER UACC YES; Urine Blood Negative (Negative); Urine Ketones Negative (Negative); Urine Protein Negative (Neg-Trace)
[2024-06-11 23:03] LABS: Bacteria Urine None Seen (None Seen); Hyaline Casts Urine 0-2 /LPF (0-2); RBC Urine 0-2 /HPF (0-2); Squamous Epithelial Cell Urine 0-2 /HPF (0-2); UACC Culture Trigger YES
[2024-06-12 00:46] VITALS: BP 138/82; PULSE 78; RESP 18; TEMP 36.7; O2SAT 97
== END 2024-06-12 00:49 | disposition home or self-care (01) ==
PROVIDERS: Emergency Provider Emergency Medicine Emergency Medical Services; PCP Family Medicine
DX: R10.30 Lower abdominal pain, unspecified (principal); T83.091A Other mechanical complication of indwelling urethral catheter, initial encounter; I10 Essential (primary) hypertension; Y73.8 Miscellaneous gastroenterology and urology devices associated with adverse incidents, not elsewhere classified; Y92.89 Other specified places as the place of occurrence of the external cause; Z79.899 Other long term (current) drug therapy
CPT/HCPCS: 36415; 51702; 80053; 81001; 85025; 87086; 96360; 96361; 99284; 99285

== ENCOUNTER 2024-06-30 14:13 | Emergency (ER) | payer MEDICAID, SELFPAY ==
--- NOTE | 2024-06-30 14:29 | ED.GENADULT ---
HPI - General Adult General Chief complaint: Urogenital-Female Stated complaint: NEEDS RIZZO CHANGED Time Seen by Provider: 06/30/24 14:28 Source: patient Mode of arrival: ambulatory Limitations: no limitations History of Present Illness ED Provider: Blessing CRUMP HPI narrative: 50-year-old female presents to the emergency department requesting Rizzo catheter to be changed, patient has a indwelling chronic Rizzo catheter, was instructed to get it changed every 3 weeks, she no longer has VNA so she wanted to come in today to get it changed here. No complaints associated with Rizzo catheterization other than slight burning at insertion site. Normal output. No fevers, chills, abdominal pain, headache, vision changes, dizziness, weakness. Related Data Home Medications ?Medication ?Instructions ?Recorded ?Confirmed albuterol sulfate 90 mcg/actuation 2 puff inhalation Q4-6H PRN Dyspnea 11/18/21 aerosol inhaler (ProAir HFA) atorvastatin 10 mg tablet 80 mg PO BEDTIME 11/18/21 clonazepam 1 mg tablet 1 mg PO BID 11/18/21 fluticasone propionate 50 2 spray intranasal DAILY 11/18/21 mcg/actuation nasal spray,suspension lisinopril 40 mg tablet 40 mg PO DAILY 11/18/21 loratadine 10 mg tablet 10 mg PO DAILY 11/18/21 metoprolol tartrate 100 mg tablet 100 mg PO BID 11/18/21 oxycodone-acetaminophen 5 mg-325 1 tab PO Q8H PRN severe pain 11/18/21 mg tablet venlafaxine 150 mg 150 mg PO DAILY 11/18/21 capsule,extended release 24 hr aspirin 81 mg tablet,delayed 81 mg PO DAILY 12/07/23 release (Adult Aspirin Regimen) amlodipine 10 mg tablet (Norvasc) 5 mg 06/11/24 gabapentin 300 mg capsule 300 mg 06/11/24 Previous Rx's ?Medication ?Instructions ?Recorded cephalexin 500 mg capsule 500 mg PO BID 7 days #14 caps 12/02/22 ascorbic acid (vitamin C) 1,000 mg 1,000 mg PO DAILY 90 days #90 tabs 12/07/23 tablet methenamine hippurate 1 gram tablet 1 g PO daily 90 days #90 tabs 12/07/23 nitrofurantoin 100 mg PO Q12H 14 days #28 caps 12/09/23 monohydrate/macrocrystals 100 mg capsule (Macrobid) cefdinir 300 mg capsule 300 mg PO BID 5 days #10 caps 06/30/24 nystatin 100,000 unit/gram topical 1 appl topical DAILY #15 grams 06/30/24 cream Allergies Allergy/AdvReac Type Severity Reaction Status Date / Time No Known Allergies Allergy Verified 06/30/24 14:42 Review of Systems Review of Systems: Yes all other systems are reviewed and are negative PMFSH Past Medical History Attestation statement: The following information was validated with the patient. Source: old records reviewed and nursing notes reviewed Medical History Hypotonic bladder H/O urinary retention GERD (gastroesophageal reflux disease) Hyperlipidemia HTN (hypertension) PFO (patent foramen ovale) Patellofemoral arthrosis Knee derangement Surgical History History of surgery Social History Social History Alcohol intake: current Alcohol intake frequency: a few times a month Alcohol type: beer Patient Tobacco Use Status: Never used Tobacco Advance Directives: Yes Advance Directives on File: Yes Advance Directives Date on File: 10/27/22 Physical Exam ED Vital Signs: Vital Signs - 24 hr 06/30/24 14:38 Temperature 97.9 F Pulse Rate 77 Respiratory Rate 18 Blood Pressure 180/115 H Pulse Oximetry 98 Oxygen Delivery Method Room Air BMI result Body Mass Index 31.9 vss Appearance: Alert.? Oriented X3.? No acute distress.? Head: Normocephalic, atraumatic, no step-offs or deformities Eyes: Pupils equal, round and reactive to light.? Neck: Normal inspection.? Neck supple.? CVS: Normal heart rate and rhythm.? Pulses normal.? Respiratory: No respiratory distress.? Breath sounds normal.? Abdomen: Soft and nontender.? Skin: Skin warm and dry.? Normal skin color.? Normal skin turgor.? Extremities: No lower extremity edema.? No calf ttp. 5/5 strength to bilateral upper and lower extremities Neuro: Oriented X 3.? No motor deficit.? No sensory deficit. CN 2-12 intact Course Reevaluation(s) Reevaluation #1: UA with large amount of leukocyte esterases she is having some burning at insertion site will cover with cefdinir for 5 days. New Rizzo catheter inserted, no complications. Educated patient on diagnosis and treatment plan, answered all question, patient verbalizes understanding. At this time patient will be discharged home, advised to return with new or worsening symptoms. Educated on worrisome signs and symptoms and when to return. At this time I feel comfortable discharge home. Time: 14:31 Reevaluation #2: Patient requesting refill on nystatin cream which she uses intermittently for fungal rashes. She states she starting to get a rash at this time on her torso. Running out of nystatin cream will fill this at this time no signs of necrotizing infection. Time: 15:16 Medical Decision Making Medical Decision Making [facility] Narrative: 58-year-old female presents requesting Rizzo catheter to be changed. Physical exam benign Patient likely here just for Rizzo catheterization change. Unlikely UTI, cystitis, metabolic derangements. Plan will change Rizzo and discharge patient home. Differential Diagnosis Differential Diagnoses: The differential diagnosis associated with the presentation includes Patient likely here just for Rizzo catheterization change. Unlikely UTI, cystitis, metabolic derangements. Admission/Observation Consideration of admission/observation: Escalation of care including admission/observation considered No indication Lab Data [facility] Lab Attestation statement: I reviewed the patient's lab results. Labs: Lab Results 06/30/24 Range/Units 14:45 Urine Color Yellow Urine Appearance Clear Urine pH 7.0 (5.0-9.0) Ur Specific [place] 1.010 (1.005-1.025) Urine Protein Trace (Neg-Trace) mg/dL Urine Glucose (UA) Negative (Negative) mg/dL Urine Ketones Negative (Negative) mg/dL Urine Blood Moderate (2+) H (Negative) Urine Nitrite Negative (Negative) Ur Leukocyte Esterase Large (3+) H (Negative) Urine RBC 11-20 H (0-2) /HPF Urine WBC 21-50 H (0-5) /HPF Ur Squamous Epith Cells 0-2 (0-2) /HPF Urine Bacteria None Seen (None Seen) Hyaline Casts 0-2 (0-2) /LPF Independent Historian Clinical information obtained from an independent historian. History obtained from or confirmed by: EMS External Record Review External record reviewed: Office record, Outpatient record, Prior outpatient labs and Prior outpatient radiology Critical Care Time Critical Care Time Critical Care Time: No Discharge Plan Discharge Clinical Impression: Encounter for Rizzo catheter replacement Patient Disposition: Home, Self-Care Additional Instructions: Take your medications as prescribed. If you were prescribed antibiotics today, it is important that you take your medication to their entirety, do not skip any doses, do not finish them early. Follow-up with your primary care provider this week. Return to the emergency department with new or worsening symptoms. Such as fevers, chills, chest pain, shortness of breath, nausea, vomiting, dizziness, headache, vision changes, lethargy In case of emergency call 911 Follow-up with urology Prescriptions: New cefdinir 300 mg capsule 300 mg PO BID 5 Days Qty: 10 0RF nystatin 100,000 unit/gram cream 1 appl topical DAILY Qty: 15 0RF No Action nitrofurantoin monohyd/m-cryst [Macrobid] 100 mg capsule 100 mg PO Q12H 14 Days Qty: 28 0RF cephalexin 500 mg capsule 500 mg PO BID 7 Days Qty: 14 0RF gabapentin 300 mg capsule 300 mg amlodipine [Norvasc] 10 mg tablet 5 mg loratadine 10 mg tablet 10 mg PO DAILY venlafaxine 150 mg capsule,extended release 24hr 150 mg PO DAILY albuterol sulfate [ProAir HFA] 90 mcg/actuation HFA aerosol inhaler 2 puff inhalation Q4-6H PRN (Reason: Dyspnea) oxycodone-acetaminophen 5-325 mg tablet 1 tab PO Q8H PRN (Reason: severe pain) clonazepam 1 mg tablet 1 mg PO BID fluticasone propionate 50 mcg/actuation spray,suspension 2 spray intranasal DAILY metoprolol tartrate 100 mg tablet 100 mg PO BID lisinopril 40 mg tablet 40 mg PO DAILY atorvastatin 10 mg tablet 80 mg PO BEDTIME aspirin [Adult Aspirin Regimen] 81 mg tablet,delayed release (DR/EC) 81 mg PO DAILY ascorbic acid (vitamin C) 1,000 mg tablet 1,000 mg PO DAILY 90 Days Qty: 90 1RF methenamine hippurate 1 gram tablet 1 g PO daily 90 Days Qty: 90 1RF Referrals: [facility] [Provider Group] - 2 days Print Language: Hebrew
[2024-06-30 14:38] VITALS: BP 180/115; PULSE 77; RESP 18; TEMP 36.6; O2SAT 98; BMI 31.9
[2024-06-30 14:51] LABS: Appearance Urine Clear; Color Urine Yellow; Glucose Urine UA Negative (Negative); Leukocyte Esterase Urine Large (3+) (Negative); Nitrite Urine Negative (Negative); UMIC TRIGGER UACC YES; Urine Blood Moderate (2+) (Negative); Urine Ketones Negative (Negative); Urine Protein Trace mg/dL (Neg-Trace)
[2024-06-30 15:10] LABS: Bacteria Urine None Seen (None Seen); Hyaline Casts Urine 0-2 /LPF (0-2); Squamous Epithelial Cell Urine 0-2 /HPF (0-2); UACC Culture Trigger YES; WBC Urine 21-50 /HPF (0-5)
--- NOTE | 2024-06-30 15:16 | PC.NURSE ---
marketing community liaison to book ride home, patient aware
--- NOTE | 2024-06-30 16:16 | PC.NURSE ---
Patient booked herself an uber ride, assisted into wheelchair and brought to waiting room
== END 2024-06-30 16:25 | disposition home or self-care (01) ==
PROVIDERS: Physician Assistant; Emergency Provider Emergency Medicine; PCP Family Medicine
DX: Z46.6 Encounter for fitting and adjustment of urinary device (principal); R33.9 Retention of urine, unspecified; N31.2 Flaccid neuropathic bladder, not elsewhere classified; I10 Essential (primary) hypertension; Z79.02 Long term (current) use of antithrombotics/antiplatelets; Z79.899 Other long term (current) drug therapy
CPT/HCPCS: 51702; 81001; 87086; 87088; 87186; 99282; 99284

== ENCOUNTER 2024-07-02 21:32 | Emergency (ER) | payer MEDICAID, SELFPAY ==
[2024-07-02 21:41] VITALS: BMI 32.9
--- NOTE | 2024-07-02 22:11 | ED.FEMALEGU ---
HPI - Female Genitourinary General Chief complaint: Urogenital-Female Stated complaint: Accidentally pulled out catheter, slight HTN Time Seen by Provider: 07/02/24 22:07 Source: patient and EMS Mode of arrival: EMS Limitations: no limitations History of Present Illness ED Provider: Dr. Sharmin Back HPI Narrative: Patient comes to the emergency room via ambulance complaining of accidentally pulling out her Quinonez catheter. Patient states that she had a new 1 placed about 3 days ago here. Patient states that today she was trying to get out of the couch, the Quinonez catheter got stuck and he accidentally pulled out. Patient denies any bleeding. Patient states that she only needs a new Quinonez catheter, which she needs for neurogenic bladder/incomplete emptying. Related Data Home Medications ?Medication ?Instructions ?Recorded ?Confirmed albuterol sulfate 90 mcg/actuation 2 puff inhalation Q4-6H PRN Dyspnea 11/18/21 aerosol inhaler (ProAir HFA) atorvastatin 10 mg tablet 80 mg PO BEDTIME 11/18/21 clonazepam 1 mg tablet 1 mg PO BID 11/18/21 fluticasone propionate 50 2 spray intranasal DAILY 11/18/21 mcg/actuation nasal spray,suspension lisinopril 40 mg tablet 40 mg PO DAILY 11/18/21 loratadine 10 mg tablet 10 mg PO DAILY 11/18/21 metoprolol tartrate 100 mg tablet 100 mg PO BID 11/18/21 oxycodone-acetaminophen 5 mg-325 1 tab PO Q8H PRN severe pain 11/18/21 mg tablet venlafaxine 150 mg 150 mg PO DAILY 11/18/21 capsule,extended release 24 hr aspirin 81 mg tablet,delayed 81 mg PO DAILY 12/07/23 release (Adult Aspirin Regimen) amlodipine 10 mg tablet (Norvasc) 5 mg 06/11/24 gabapentin 300 mg capsule 300 mg 06/11/24 Previous Rx's ?Medication ?Instructions ?Recorded cephalexin 500 mg capsule 500 mg PO BID 7 days #14 caps 12/02/22 ascorbic acid (vitamin C) 1,000 mg 1,000 mg PO DAILY 90 days #90 tabs 12/07/23 tablet methenamine hippurate 1 gram tablet 1 g PO daily 90 days #90 tabs 12/07/23 nitrofurantoin 100 mg PO Q12H 14 days #28 caps 12/09/23 monohydrate/macrocrystals 100 mg capsule (Macrobid) cefdinir 300 mg capsule 300 mg PO BID 5 days #10 caps 06/30/24 nystatin 100,000 unit/gram topical 1 appl topical DAILY #15 grams 06/30/24 cream Allergies Allergy/AdvReac Type Severity Reaction Status Date / Time No Known Allergies Allergy Verified 07/02/24 21:42 Review of Systems Review of Systems: Constitutional : No Weight loss, No Fever, No Chills, No Night Sweats, No Fatigue, No Malaise ENT/Mouth : No Hearing loss, No Ear Pain, No Nasal Congestion, No Sinus Pain, No Hoarseness, No sore throat, No Rhinorrhea, No Swallowing Difficulty Eyes: No Eye Pain, No Swelling, No Redness, No Foreign Body, No Discharge, No Vision Changes Cardiovascular : No Chest Pain, No SOB, No Dyspnea on Exertion, No Orthopnea, No Edema, No Palpitations Respiratory : No Cough, No Sputum, No Wheezing, No Smoke Exposure, No Dyspnea Gastrointestinal : No Nausea, No Vomiting, No Diarrhea, No Constipation, No abdominal Pain, No Hematochezia, No Melena Genitourinary : Accidentally pulled out her Quinonez catheter, needs new 1., No Dysuria, No Urinary Frequency, No Hematuria, No Urinary Incontinence, No Urgency, No Flank Pain, No Urinary Flow Changes, No Hesitancy Musculoskeletal : No joint pain, No Myalgias, No Joint Swelling Skin : No Skin Lesions, No rash Neuro : No Weakness, No Numbness, No Paresthesias, No Loss of Consciousness, No Dizziness, No Headache Psych : No Anxiety/Panic, No Depression, No SI/HI/AH/VH, No Social Issues, Heme/Lymph: No Bruising, No Bleeding,No Lymphadenopathy Endocrine : No Polyuria, No Polydipsia, No Temperature Intolerance PMF Past Medical History Medical History Hypotonic bladder H/O urinary retention GERD (gastroesophageal reflux disease) Hyperlipidemia HTN (hypertension) PFO (patent foramen ovale) Patellofemoral arthrosis Knee derangement Surgical History History of surgery Social History Social History Alcohol intake: current Alcohol intake frequency: a few times a month Alcohol type: beer Patient Tobacco Use Status: Never used Tobacco Advance Directives: Yes Advance Directives on File: Yes Advance Directives Date on File: 10/27/22 Do you have a plan to hurt others: No Plan Physical Exam Vital Signs: Vital Signs: BMI result Body Mass Index 32.9 Const: Other: Appearance: Alert. Oriented X3. No acute distress. Eyes: Pupils equal, round and reactive to light. ENT: Pharynx normal. Neck: Normal inspection. Neck supple. No lymph nodes noted. No crepitus CVS: Normal heart rate and rhythm. Pulses normal. Normal S1 and S2 Respiratory: No respiratory distress. Breath sounds normal. No Wheezing. No rales Abdomen: Soft and nontender. No rigidity. No distention. Skin: Skin warm and dry. Normal skin color. Normal skin turgor. Extremities: No lower extremity edema. No Lacerations. No Rash Neuro: Oriented X 3. No motor deficit. No sensory deficit. Moving all extremities. No slurred speech. CN 2 through 12 grossly intact Psych: calm, cooperative, normal affect Medical Decision Making Medical Decision Making MDM Narrative: Patient's Quinonez catheter will be replaced. Discharge Plan Discharge Clinical Impression: Encounter for Quinonez catheter replacement Patient Disposition: Home, Self-Care Instructions: Quinonez Catheter Placement and Care (ED) Additional Instructions: Please follow-up with your primary care physician tomorrow. If you have any worsening or new symptoms, please return to the emergency room or call 911 Prescriptions: No Action nitrofurantoin monohyd/m-cryst [Macrobid] 100 mg capsule 100 mg PO Q12H 14 Days Qty: 28 0RF cephalexin 500 mg capsule 500 mg PO BID 7 Days Qty: 14 0RF cefdinir 300 mg capsule 300 mg PO BID 5 Days Qty: 10 0RF nystatin 100,000 unit/gram cream 1 appl topical DAILY Qty: 15 0RF gabapentin 300 mg capsule 300 mg amlodipine [Norvasc] 10 mg tablet 5 mg loratadine 10 mg tablet 10 mg PO DAILY venlafaxine 150 mg capsule,extended release 24hr 150 mg PO DAILY albuterol sulfate [ProAir HFA] 90 mcg/actuation HFA aerosol inhaler 2 puff inhalation Q4-6H PRN (Reason: Dyspnea) oxycodone-acetaminophen 5-325 mg tablet 1 tab PO Q8H PRN (Reason: severe pain) clonazepam 1 mg tablet 1 mg PO BID fluticasone propionate 50 mcg/actuation spray,suspension 2 spray intranasal DAILY metoprolol tartrate 100 mg tablet 100 mg PO BID lisinopril 40 mg tablet 40 mg PO DAILY atorvastatin 10 mg tablet 80 mg PO BEDTIME aspirin [Adult Aspirin Regimen] 81 mg tablet,delayed release (DR/EC) 81 mg PO DAILY ascorbic acid (vitamin C) 1,000 mg tablet 1,000 mg PO DAILY 90 Days Qty: 90 1RF methenamine hippurate 1 gram tablet 1 g PO daily 90 Days Qty: 90 1RF Print Language: Lithuanian
[2024-07-02] MEDS: Acetaminophen 325 MG TABLET 975 MG PO (22:47)
--- NOTE | 2024-07-02 22:50 | PC.NURSE ---
16F Quinonez placed, patient tolerated procedure well, to be dc'd home.
[2024-07-03 00:07] VITALS: BP 143/82; PULSE 69; RESP 17; TEMP 36.7; O2SAT 97
[2024-07-03 01:32] VITALS: BP 143/82; PULSE 69; RESP 17; TEMP 36.7; O2SAT 97
== END 2024-07-03 01:33 | disposition home or self-care (01) ==
PROVIDERS: Emergency Provider Emergency Medicine; PCP Family Medicine
DX: T83.028A Displacement of other urinary catheter, initial encounter (principal); Y73.8 Miscellaneous gastroenterology and urology devices associated with adverse incidents, not elsewhere classified; Y92.89 Other specified places as the place of occurrence of the external cause
CPT/HCPCS: 51702; 99284

== ENCOUNTER 2024-07-06 10:00 | Emergency (ER) | payer MEDICAID, SELFPAY ==
[2024-07-06 10:07] VITALS: BP 150/90; PULSE 71; O2SAT 95; BMI 34.4
--- NOTE | 2024-07-06 10:16 | ED_ITS ---
HPI - Female Genitourinary General Chief complaint: Urogenital-Female Stated complaint: GROIN PAIN POST RIZZO INSERTION Time Seen by Provider: 07/06/24 10:16 Source: patient and EMS Mode of arrival: EMS Limitations: no limitations History of Present Illness ED Provider: Maryjo Acuna PA-C HPI Narrative: Patient is a 58 year old assigned female at with a history of neurogenic bladder with chronic rizzo presenting to the emergency department today with abdominal pain secondary to her rizzo not emptying. Patient states that she was here on 07/02/2024 for a similar issue and had her rizzo replaced. Patient states that it was doing fine but noticed that it is now not emptying and she is having urine come out around the rizzo. Patient denies any dizziness, lightheadedness, abdominal pain, nausea, vomiting, fever, chills, blurry vision, double vision, loss of vision, chest pain, difficulty breathing, shortness of breath, back pain, night sweats, blood in her urine or stool, syncope or a near syncopal episode, recent trauma or falls, bowel incontinence, bladder incontinence, or any other complaints at this time. Related Data Home Medications ?Medication ?Instructions ?Recorded ?Confirmed albuterol sulfate 90 mcg/actuation 2 puff inhalation Q4-6H PRN Dyspnea 11/18/21 aerosol inhaler (ProAir HFA) atorvastatin 10 mg tablet 80 mg PO BEDTIME 11/18/21 clonazepam 1 mg tablet 1 mg PO BID 11/18/21 fluticasone propionate 50 2 spray intranasal DAILY 11/18/21 mcg/actuation nasal spray,suspension lisinopril 40 mg tablet 40 mg PO DAILY 11/18/21 loratadine 10 mg tablet 10 mg PO DAILY 11/18/21 metoprolol tartrate 100 mg tablet 100 mg PO BID 11/18/21 oxycodone-acetaminophen 5 mg-325 1 tab PO Q8H PRN severe pain 11/18/21 mg tablet venlafaxine 150 mg 150 mg PO DAILY 11/18/21 capsule,extended release 24 hr aspirin 81 mg tablet,delayed 81 mg PO DAILY 12/07/23 release (Adult Aspirin Regimen) amlodipine 10 mg tablet (Norvasc) 5 mg 06/11/24 gabapentin 300 mg capsule 300 mg 06/11/24 Previous Rx's ?Medication ?Instructions ?Recorded cephalexin 500 mg capsule 500 mg PO BID 7 days #14 caps 12/02/22 ascorbic acid (vitamin C) 1,000 mg 1,000 mg PO DAILY 90 days #90 tabs 12/07/23 tablet methenamine hippurate 1 gram tablet 1 g PO daily 90 days #90 tabs 12/07/23 nitrofurantoin 100 mg PO Q12H 14 days #28 caps 12/09/23 monohydrate/macrocrystals 100 mg capsule (Macrobid) cefdinir 300 mg capsule 300 mg PO BID 5 days #10 caps 06/30/24 nystatin 100,000 unit/gram topical 1 appl topical DAILY #15 grams 06/30/24 cream Allergies Allergy/AdvReac Type Severity Reaction Status Date / Time No Known Allergies Allergy Verified 07/06/24 10:11 Review of Systems Constitutional: Constitutional: Reports no additional constitutional complaints, Denies chills, Denies fever(s) and Denies night sweats Eyes: Eyes: Reports no additional eye complaints, Denies blurry vision, Denies change in vision, Denies diplopia, Denies eye discharge, Denies loss of vision and Denies eye pain ENT: Denies dizziness Cardiovascular: Cardiovascular: Reports no additional cardiovascular complaints, Denies chest pain, Denies lightheadedness, Denies Loss of Conscious ness and Denies dyspnea Respiratory: Respiratory: Reports no additional respiratory complaints and Denies dyspnea Gastrointestinal: Gastrointestinal: Reports no additional gastrointestinal complaints, Denies abdominal pain, Denies melena, Denies hematochezia, Denies change in bowel habits and Denies change in stool character Genitourinary: Genitourinary: Denies hematuria Comments: patient's rizzo catheter not emptying Musculoskeletal: Musculoskeletal: Reports no additional musculoskeletal complaints, Denies numbness and Denies tingling Neurologic: Denies dizziness, Denies loss of vision, Denies numbness and Denies tingling Psychiatric: Psychiatric: Reports no additional psychiatric complaints Endocrine: Endocrine: Reports no additional endocrine complaints Hematologic/Lymphatic: Hematologic/Lymphatic: Reports no additional hematologic/lymphatic complaints Allergic/Immunologic: Allergic/Immunologic: Reports no additional allergic/immunologic complaints PMFSH Past Medical History Attestation statement: The following information was validated with the patient. Source: old records reviewed and nursing notes reviewed Medical History (Updated 07/06/24 @ 11:46 by Rosaline Hightower) Hemiparesis affecting left side as late effect of stroke Hypotonic bladder H/O urinary retention GERD (gastroesophageal reflux disease) Hyperlipidemia HTN (hypertension) PFO (patent foramen ovale) Patellofemoral arthrosis Knee derangement Surgical History History of surgery Social History Social History Alcohol intake: current Alcohol intake frequency: a few times a month Alcohol type: beer Patient Tobacco Use Status: Never used Tobacco Substance Use Type: Marijuana Advance Directives: Yes Advance Directives on File: Yes Advance Directives Date on File: 10/27/22 Do you have a plan to hurt others: No Plan Physical Exam Vital Signs: Vital Signs: Last Vital Signs Temp 98.2 F 07/06/24 13:33 Pulse 88 07/06/24 13:33 Resp 16 07/06/24 13:33 BP 130/70 07/06/24 13:33 Pulse Ox 98 07/06/24 13:33 O2 Del Method Room Air 07/06/24 13:33 BMI result Body Mass Index 34.4 Const: General: cooperative, no acute distress, alert and awake Nutritional Appearance: well nourished Orientation/consciousness: patient oriented x3 Limitations: no limitations HEENT: Head: Yes normal to inspection and Yes atraumatic Ears: hearing grossly normal bilaterally and external ears normal General nose exam: Normal external nose present, no nasal discharge noted and no epistaxis Face and sinus: Yes normal facial exam, No abrasion and No laceration Mouth: Normal oral and palatal mucosa present, no drooling and no muffled voice Eyes: General: appearance normal, both eyes and all related structures Periorbital: periorbital findings normal Eyelids: Yes eyelids normal Conjunctivae: conjunctivae normal Pupils: Equal, round and reactive pupils present EOM: EOMs intact bilaterally Neck: Neck: Yes normal visual inspection, Yes full ROM and Yes no lymphadenopathy Chest: Chest palpation & inspection: normal inspection of the chest Resp: Effort & Inspection: normal respiratory effort and able to speak in complete sentences GI: Inspection: Yes normal to inspection : Other: rizzo catheter in place - not emptying Neuro: General: patient oriented x3 and moves all extremities Cranial nerves: Yes Equal, round and reactive pupils present Cognition (Neuro): normal cognition Extrem: General: Yes normal to inspection, Yes full ROM and Yes capillary refill normal Psych: Appearance: grossly normal Mental Status: mental status grossly normal Affect: normal affect Attitude: cooperative Thought process: Normal thought process present Thought content: Normal thought content present Insight: Good insight present (Psych) Medications Administered Discontinued Medications Generic Name Dose Route Start Last Admin Trade Name Jessi PRN Reason Stop Dose Admin Oxycodone HCl 10 mg 07/06/24 10:44 07/06/24 10:54 Oxycodone Hcl Immed Release 5 Mg Tablet PO 07/06/24 10:45 10 mg ONCE ONE Administration Medical Decision Making Medical Decision Making [facility] Narrative: Patient is a 58 year old assigned female at with a history of chronic rizzo catheter secondary to a neurogenic bladder presenting to the emergency department today with a non operational rizzo. Patient's physical exam showed a non-draining rizzo catheter. Patient's urine showed a resolving UTI for which she is already on an antibiotics. I explained my physical exam findings as well as all test results to the patient. I answered all questions asked by the patient. Patient's rizzo catheter was replaced without incident and is draining well. Patient's son requested we run a u-tox, given he is the healthcare proxy, I ordered it and reviewed the results showing cocaine and barbiturates. I stressed the importance of the patient taking her medication as directed (either prescribed or as the over the counter packaging recommends). I stressed the importance of the patient following up with her primary care provider and her urologist. I stressed the importance of the patient returning to the emergency department immediately if her symptoms were to worsen or if she were to develop any dizziness, shortness of breath, difficulty breathing, chest pain, blurry vision, loss of vision, nausea, vomiting, abdominal pain, fever, chills, back pain, or any other complaints. Patient verbalized agreement and understanding with this treatment plan and discharge. Differential Diagnosis Differential Diagnoses: The differential diagnosis associated with the presentation includes Rizzo catheter change Admission/Observation Consideration of admission/observation: Escalation of care including admission/observation considered Patient would have been admitted to the hospital had her work up had any findings where hospital admission was appropriate and her clinical presentation warranted hospital admission. Lab Data [facility] Lab Attestation statement: I reviewed the patient's lab results. My interpretation of these results are in the MDM Rationale portion of this note. Labs: Lab Results 07/06/24 Range/Units 10:46 Urine Color Yellow Urine Appearance Turbid Urine pH >= 9.0 (5.0-9.0) Ur Specific [place] 1.025 (1.005-1.025) Urine Protein >=1000 (4+) H (Neg-Trace) mg/dL Urine Glucose (UA) 250 H (Negative) mg/dL Urine Ketones Negative (Negative) mg/dL Urine Blood Negative (Negative) Urine Nitrite Negative (Negative) Ur Leukocyte Esterase Large (3+) H (Negative) Urine RBC 0-2 (0-2) /HPF Urine WBC 6-10 (0-5) /HPF Ur Squamous Epith Cells 0-2 (0-2) /HPF Urine Bacteria 1+ (None Seen) Hyaline Casts >20 (0-2) /LPF Urine Opiates Screen Not Detected (Not Detect) Ur Buprenorphine Scrn Not Detected (Not Detect) ng/mL Ur Oxycodone Screen Not Detected (Not Detect) ng/mL Urine Methadone Screen Not Detected (Not Detect) ng/mL Urine Fentanyl Screen Not Detected (Not Detect) Ur Barbiturates Screen POSITIVE H (Not Detect) Ur Phencyclidine Scrn Not Detected (Not Detect) Ur Amphetamines Screen Not Detected (Not Detect) U Benzodiazepines Scrn Not Detected (Not Detect) Urine Cocaine Screen POSITIVE H (Not Detect) U Marijuana (THC) Screen Not Detected (Not Detect) Independent Historian Clinical information obtained from an independent historian. History obtained from or confirmed by: EMS (EMS provided additional history and confirmed the history provided by the patient.) Discharge Plan Discharge Clinical Impression: Acute urinary retention, UTI (urinary tract infection), Chronic indwelling Rizzo catheter Patient Disposition: Home, Self-Care Instructions: Urinary Tract Infection in Women (DC), Rizzo Catheter Placement and Care (ED) Additional Instructions: Follow up with your primary care provider and your urologist. Continue taking the antibiotic you were prescribed for a UTI. Return to the emergency department immediately if your symptoms worsen or if you develop any dizziness, shortness of breath, difficulty breathing, chest pain, blurry vision, loss of vision, nausea, vomiting, abdominal pain, fever, chills, back pain, or any other complaints. Prescriptions: No Action nitrofurantoin monohyd/m-cryst [Macrobid] 100 mg capsule 100 mg PO Q12H 14 Days Qty: 28 0RF cephalexin 500 mg capsule 500 mg PO BID 7 Days Qty: 14 0RF cefdinir 300 mg capsule 300 mg PO BID 5 Days Qty: 10 0RF nystatin 100,000 unit/gram cream 1 appl topical DAILY Qty: 15 0RF gabapentin 300 mg capsule 300 mg amlodipine [Norvasc] 10 mg tablet 5 mg loratadine 10 mg tablet 10 mg PO DAILY venlafaxine 150 mg capsule,extended release 24hr 150 mg PO DAILY albuterol sulfate [ProAir HFA] 90 mcg/actuation HFA aerosol inhaler 2 puff inhalation Q4-6H PRN (Reason: Dyspnea) oxycodone-acetaminophen 5-325 mg tablet 1 tab PO Q8H PRN (Reason: severe pain) clonazepam 1 mg tablet 1 mg PO BID fluticasone propionate 50 mcg/actuation spray,suspension 2 spray intranasal DAILY metoprolol tartrate 100 mg tablet 100 mg PO BID lisinopril 40 mg tablet 40 mg PO DAILY atorvastatin 10 mg tablet 80 mg PO BEDTIME aspirin [Adult Aspirin Regimen] 81 mg tablet,delayed release (DR/EC) 81 mg PO DAILY ascorbic acid (vitamin C) 1,000 mg tablet 1,000 mg PO DAILY 90 Days Qty: 90 1RF methenamine hippurate 1 gram tablet 1 g PO daily 90 Days Qty: 90 1RF [place]: [facility] [place]] Aliza Paul DO [Primary Care Provider] - Interventions: ED Discharge Assessment Last Done: 07/06/24 13:33 Discharge Date/Time: 07/06/24 13:34 Print Language: [place]
[2024-07-06] MEDS: oxyCODONE HCl Immed Release 5 MG TABLET 10 MG PO (10:54)
[2024-07-06 10:58] LABS: Appearance Urine Turbid; Color Urine Yellow; Glucose Urine UA 250 mg/dL (Negative); Leukocyte Esterase Urine Large (3+) (Negative); Nitrite Urine Negative (Negative); PH >= 9.0 (5.0-9.0); Specific Gravity - Urine 1.025 (1.005-1.025); UMIC TRIGGER UACC YES; Urine Blood Negative (Negative); Urine Ketones Negative (Negative); Urine Protein >=1000 (4+) mg/dL (Neg-Trace)
[2024-07-06 11:13] LABS: Bacteria Urine 1+ (None Seen); Hyaline Casts Urine >20 /LPF (0-2); RBC Urine 0-2 /HPF (0-2); Squamous Epithelial Cell Urine 0-2 /HPF (0-2); UACC Culture Trigger YES
[2024-07-06 13:33] VITALS: BP 130/70; PULSE 88; RESP 16; TEMP 36.8; O2SAT 98
[2024-07-06 13:48] LABS: Amphetamine Screen Urine Not Detected (Not Detect); Barbiturates, Urine POSITIVE (Not Detect); Benzodiazepines Screen Urine Not Detected (Not Detect); Buprenorphine Scr Not Detected (Not Detect); Cannabinoid Screen Urine Not Detected (Not Detect); Cocaine Screen Urine POSITIVE (Not Detect); Fentanyl, urine Not Detected (Not Detect); Methadone Screen, Urine Not Detected (Not Detect); Opiate Screen Urine Not Detected (Not Detect); Oxycodone Screen Urine Not Detected (Not Detect); Phencyclidine Screen Urine Not Detected (Not Detect)
== END 2024-07-06 13:34 | disposition home or self-care (01) ==
PROVIDERS: Physician Assistant Medical; Emergency Provider Emergency Medicine; PCP Family Medicine
DX: N39.0 Urinary tract infection, site not specified (principal); R33.9 Retention of urine, unspecified; R10.30 Lower abdominal pain, unspecified; I10 Essential (primary) hypertension; Z79.899 Other long term (current) drug therapy
CPT/HCPCS: 51702; 51798; 80307; 81001; 81003; 87086; 87088; 87186; 99283; 99284

== ENCOUNTER 2024-07-20 13:46 | Inpatient (IN) | payer MEDICAID, SELFPAY ==
[2024-07-20] VITALS (8 sets, daily range): BP systolic 120–163; BP diastolic 51–93; PULSE 64–100; RESP 16–22; TEMP 36.7–37.3; O2SAT 93–99; BMI 31.1
--- NOTE | ~2024-07-20 | XR_ITS ---
EXAMINATION: XR CHEST CLINICAL INFORMATION: Altered mental status COMPARISON: Chest radiograph 11/09/2022 TECHNIQUE: Frontal view of the chest was obtained. FINDINGS: Lung volumes are somewhat diminished which results in crowding of bronchovascular structures. No focal airspace opacities are seen. There is no pleural effusion or pneumothorax. The cardiac mediastinal contours are similar to prior. The structures of the chest wall are intact. There are posttraumatic changes of the right proximal humerus and there has been prior anterior cervical fixation. XR/XR chest 1V IMPRESSION: No acute process. Electronically signed by: Joshua Victor MD 07/20/2024 03:41 PM EDT
--- NOTE | ~2024-07-20 | US_ITS ---
EXAMINATION: US THYROID CLINICAL INFORMATION: Hyperthyroidism. COMPARISON: None available. TECHNIQUE: Linear transducer grayscale and color Doppler examination with attention to the region of the thyroid. Difficult to image left thyroid due to left sided decubitus position due to stroke. FINDINGS: SIZE: Measurements of the thyroid lobes and nodules are given in sagittal, anteroposterior and transverse dimensions respectively. Right Thyroid Lobe: 3.3 x 1.6 x 1.4 cm, volume 3.7 mL. Parenchyma: The gland echotexture is homogeneous. Thyroid vascularity is normal. Left Thyroid Lobe: Not visualized. Isthmus: 0.6 cm in maximum AP dimension. No focal thyroid nodule could not be visualized optimally. The visualized portion measures 0.9 cm in width. NODES: No lymphadenopathy is seen in the tissue surrounding the thyroid gland. US/US thyroid IMPRESSION: 1. Unable to visualize the left thyroid lobe due to patient's condition, left-sided distortion due to stroke and altered mental status. 2. The right thyroid lobe is within normal limits in size with no discrete focal thyroid nodule. ACR TI-RADS RECOMMENDATION REFERENCE: Ultrasound-guided fine-needle aspiration, followup ultrasound, no further follow up. * TR1 (0 point) and TR2 (2 points): No FNA or follow up. * TR3 (3 points): FNA if more than or equal to 2.5 cm in maximum dimension, followup ultrasound in 1, 3 and 5 years if 1.5 to 2.4 cm in maximum dimension. * TR4 (4-6 points): FNA if more than or equal to 1.5 cm in maximum dimension, followup ultrasound in 1, 2, 3 and 5 years if 1 to 1.4 cm in maximum dimension. * TR5 (more than or equal to 7 points): FNA if more than or equal to 1 cm in maximum dimension, followup ultrasound every year for 5 years if 0.5 to 0.9 cm in maximum dimension. * TR3, TR4 or TR5 nodules that are below the size threshold for followup receive no follow up. Electronically signed by: Balaji Veloz MD 07/21/2024 06:40 AM EDT
--- NOTE | ~2024-07-20 | CT_ITS ---
EXAMINATION: CT HEAD WITHOUT CONTRAST CLINICAL INFORMATION: Change in mental status. COMPARISON: CT head dated November 09, 2022. TECHNIQUE: Contiguous axial imaging was performed from the skull base to vertex without intravenous administration of contrast. This CT examination was performed using dose optimization techniques as appropriate, variously including the following: *Automated exposure control *Adjustment of mA and/or kV according to patient size (this includes techniques or standardized protocols for targeted exams where dose is matched to indication/reason for exam; i.e. extremities or head) *Use of iterative reconstruction technique DLP: 654 mGy-cm FINDINGS: There is no acute intracranial hemorrhage. There is no evidence of acute/subacute cerebral or cerebellar infarction. There is mild microvascular ischemic change. There is a chronic left centrum semiovale lacunar infarction. There is no midline shift or mass effect. There is no extra-axial fluid collection. The ventricles are normal in size. The orbits are normal in appearance. The mastoid air cells are clear. The visualized paranasal sinuses are well aerated. CT/CT head/brain wo IV con IMPRESSION: No acute intracranial pathology. Electronically signed by: Vidal Dumont DO 07/20/2024 03:56 PM EDT
--- NOTE | 2024-07-20 14:17 | ECG_ITS ---
Test Reason : AMS Blood Pressure : / mmHG Vent. Rate : 083 BPM Atrial Rate : 083 BPM P-R Int : 148 ms QRS Dur : 076 ms QT Int : 400 ms P-R-T Axes : 066 -34 -20 degrees QTc Int : 470 ms Normal sinus rhythm Left axis deviation Minimal voltage criteria for LVH, may be normal variant ( R in aVL ) Septal infarct (cited on or before 09-NOV-2022) Abnormal ECG When compared with ECG of 02-DEC-2022 13:51, Vent. rate has increased BY 36 BPM QT has lengthened Referred By: Reina Garzon Electronically Signed By:TREV DHILLON
--- NOTE | 2024-07-20 14:27 | ED_ITS ---
HPI - Altered Mental Status General Chief Complaint: Altered Mental Status Stated Complaint: WEAK,LETHARGY,VOMITING,FEVER,AMS T-1 PER EMS Time Seen by Provider: 07/20/24 14:17 Source: patient, EMS, RN notes reviewed and old records reviewed Mode of arrival: EMS Limitations: altered mental status History of Present Illness ED Provider: Vidhya Garzon PA-C HPI narrative: 50-year-old female, mostly wheelchair-bound with history of stroke with left- sided deficits, history of neurogenic bladder with chronic Quinonez, history of PFO, HTN, HLD, GERD, and recently diagnosed UTI yesterday at [facility] who presents to the ER from home via EMS for evaluation of altered mental status. Patient arrives to the ER lethargic and is a poor historian. She states she was at [facility] yesterday and was discharged with antibiotics for UTI. She states her Quinonez was changed at that time. She is confused and disoriented on arrival, lethargic. She states her REWIND OPERATOR must have called 911 today. She denies any falls. She reports decreased p.o. intake and having ?cotton mouth. ? she denies any fevers but has had some sweating episodes. No chest pain or shortness of breath. No abdominal pain. No nausea, vomiting, diarrhea. No pain in her bladder area. MD complaint: altered mental status and confusion Onset (ago): unknown Context: other (Recently diagnosed UTI) Associated symptoms: diaphoresis, loss of appetite, malaise and weakness Related Data Home Medications ?Medication ?Instructions ?Recorded ?Confirmed albuterol sulfate 90 mcg/actuation 2 puff inhalation Q4-6H PRN Dyspnea 11/18/21 aerosol inhaler (ProAir HFA) atorvastatin 10 mg tablet 80 mg PO BEDTIME 11/18/21 clonazepam 1 mg tablet 1 mg PO BID 11/18/21 fluticasone propionate 50 2 spray intranasal DAILY 11/18/21 mcg/actuation nasal spray,suspension lisinopril 40 mg tablet 40 mg PO DAILY 11/18/21 loratadine 10 mg tablet 10 mg PO DAILY 11/18/21 metoprolol tartrate 100 mg tablet 100 mg PO BID 11/18/21 oxycodone-acetaminophen 5 mg-325 1 tab PO Q8H PRN severe pain 11/18/21 mg tablet venlafaxine 150 mg 150 mg PO DAILY 11/18/21 capsule,extended release 24 hr aspirin 81 mg tablet,delayed 81 mg PO DAILY 12/07/23 release (Adult Aspirin Regimen) amlodipine 10 mg tablet (Norvasc) 5 mg 06/11/24 gabapentin 300 mg capsule 300 mg 06/11/24 Previous Rx's ?Medication ?Instructions ?Recorded cephalexin 500 mg capsule 500 mg PO BID 7 days #14 caps 12/02/22 ascorbic acid (vitamin C) 1,000 mg 1,000 mg PO DAILY 90 days #90 tabs 12/07/23 tablet methenamine hippurate 1 gram tablet 1 g PO daily 90 days #90 tabs 12/07/23 nitrofurantoin 100 mg PO Q12H 14 days #28 caps 12/09/23 monohydrate/macrocrystals 100 mg capsule (Macrobid) cefdinir 300 mg capsule 300 mg PO BID 5 days #10 caps 06/30/24 nystatin 100,000 unit/gram topical 1 appl topical DAILY #15 grams 06/30/24 cream Allergies Allergy/AdvReac Type Severity Reaction Status Date / Time No Known Allergies Allergy Verified 07/20/24 14:04 Review of Systems 2 Review of Systems: Yes all other systems are reviewed and are negative PMFSH Past Medical History Medical History (Updated 07/20/24 @ 18:20 by TIA Krishna) Hemiparesis affecting left side as late effect of stroke Hypotonic bladder H/O urinary retention GERD (gastroesophageal reflux disease) Hyperlipidemia HTN (hypertension) PFO (patent foramen ovale) Patellofemoral arthrosis Knee derangement Surgical History History of surgery Social History Social History Alcohol intake: current Alcohol intake frequency: a few times a month Alcohol type: beer Patient Tobacco Use Status: Never used Tobacco Smoked in Last 30 Days: No Use of substances other than those prescribed or required for medical reasons: No Substance Use Type: Marijuana Advance Directives: Yes Advance Directives on File: Yes Advance Directives Date on File: 10/27/22 Physical Exam ED Vital Signs: Vital Signs - 24 hr 07/20/24 14:03 07/20/24 15:45 07/20/24 17:53 Temperature 99.2 F 98.6 F Pulse Rate 78 64 95 Respiratory Rate 16 19 22 H Blood Pressure 147/83 H 120/52 L 159/81 H Pulse Oximetry 93 99 97 Oxygen Delivery Method Room Air Room Air Room Air BMI result Body Mass Index 31.1 Appearance: Lethargic, appears older than stated age. Oriented X1. Appears acutely ill Head: normocephalic, atraumatic. Eyes: Pupils equal, round and reactive to light. ENT: Pharynx with dry mucous membranes, drill coming from left side of her mouth. No tonsillar swelling or exudate. Neck: Normal inspection. Neck supple. CVS: Normal heart rate and rhythm. Pulses normal. Respiratory: No respiratory distress. Breath sounds normal. Abdomen: Soft and nontender. +BS x4 Skin: Skin warm and dry. Normal skin color. Normal skin turgor. No rashes. Extremities: No lower extremity edema. No joint swelling. Neuro/psych: Oriented X 1. Left-sided weakness noted CN II-XII intact. Slightly slurred speech, slow to respond to questions, abnormal cognition. Follows simple commands Medications Administered Generic Name Dose Route Start Last Admin Trade Name Freq PRN Reason Stop Dose Admin Sodium Chloride 1,000 mls @ 999 mls/hr 07/20/24 17:45 07/20/24 18:05 Ns IVCONT 07/20/24 18:45 999 mls/hr .Q1H1M CHERI Administration Discontinued Medications Generic Name Dose Route Start Last Admin Trade Name Freq PRN Reason Stop Dose Admin Ceftriaxone Sodium 1 gm/ 50 mls @ 100 mls/hr 07/20/24 14:41 07/20/24 16:19 Sodium Chloride IV 07/20/24 15:10 Infused ONCE ONE Infusion Lactated Ringer's 1,000 mls @ 999 mls/hr 07/20/24 14:45 07/20/24 17:17 Lr IV 07/20/24 15:45 Infused .Q1H1M CHERI Infusion Medical Decision Making Medical Decision Making MDM Narrative: 58-year-old female with multiple medical problems including a stroke with left- sided deficits, mostly wheelchair-bound, neurogenic bladder with chronic Quinonez, recently diagnosed UTI who presents to the ER for evaluation of altered mental status and confusion from home. She is confused and disoriented on arrival, lethargic. She was started on Augmentin for UTI [facility] yesterday. Working on obtaining the records. Upon review of her records it looks like she was here 3 times last week of June for Quinonez catheter replacements. Upon review of her microbiology, she has history of an E coli UTI in November that was resistant to ampicillin, gentamicin, Bactrim but it was sensitive to Levaquin, nitrofurantoin and ceftriaxone. She has history of a Klebsiella UTI in June that was also resistant to ampicillin. She has also grown a Proteus species that is resistant to nitrofurantoin. Will give dose of IV Rocephin while waiting workup. Patient found to have an acute kidney injury with a creatinine of 2.02 from a normal baseline only a couple of weeks ago. She has very dry clinically. She is ordered for IV fluids. Will admit the patient for further management. Differential Diagnosis Differential Diagnoses: The differential diagnosis associated with the presentation includes Metabolic/infectious encephalopathy due to UTI, new stroke, dehydration Admission/Observation Consideration of admission/observation: Escalation of care including admission/observation considered Consult Healthcare Provider Management of the patient was discussed with: Hospitalist Dr. Rodriguez Lab Data MDM Lab Attestation statement: I reviewed the patient's lab results. No leukocytosis, abnormal renal function which is new compared to prior 07/20/24 14:48 07/20/24 14:48 Labs: Lab Results 07/20/24 07/20/24 07/20/24 Range/Units 14:48 14:52 15:01 WBC 9.5 (4.8-10.8) X10*3/uL RBC 5.00 (4.20-5.50) X10*6/uL Hgb 14.2 (12.0-16.0) g/dl Hct 41.6 (37.0-47.0) % MCV 83.2 (80.0-98.0) fL MCH 28.4 (27.0-33.0) pg MCHC 34.1 (31.0-35.0) g/dl RDW 12.1 (11.0-16.0) % Plt Count 353 (160-400) X10*3/uL MPV 9.5 (9.4-12.3) fL Immature Gran % (Auto) 0.3 (0.0-0.4) % Neut % (Auto) 70.8 (45-73) % Lymph % (Auto) 21.4 (20-40) % Knott % (Auto) 5.9 (2-11) % Eos % (Auto) 1.1 (0-4) % Baso % (Auto) 0.5 (0-2) % Lymph # (Auto) 2.0 (1.2-4.9) X10*3/uL Knott # (Auto) 0.6 (0.1-1.2) X10*3/uL Eos # (Auto) 0.1 (0.0-0.4) X10*3/uL Baso # (Auto) 0.1 (0.0-0.2) X10*3/uL Abs Immat Gran (auto) 0.03 (0.00-0.03) X10*3/uL Absolute Neuts (auto) 6.7 (2.0-8.3) x10*3/uL Absolute Nucleated RBC 0.000 (0.0-0.012) X10*3/uL Nucleated RBC % (auto) 0.0 (0.0-0.2) /100WBC Hold Purple Top SEE NOTE PT 12.3 (11.1-13.3) SEC INR 1.0 (0.9-1.1) APTT 30.6 (26.0-36.8) SEC VBG pH 7.43 (7.32-7.43) VBG pCO2 32 mmHg VBG pO2 88 mmHg VBG HCO3 22 (22-26) mmol/L VBG O2 Saturation 99.0 % VBG Base Excess -1.2 mmol/L Sodium 142 (135-145) mmol/L Potassium 3.8 (3.3-5.1) mmol/L Chloride 109 H (96-108) mmol/L Carbon Dioxide 20 L (22-29) mmol/L Anion Gap 17 (12-20) BUN 31 H (9-16) mg/dL Creatinine 2.08 H (0.5-1.4) mg/dL Estim Creat Clear Calc 30.5 Estimated GFR 24 Random Glucose 123 H (60-115) mg/dL Lactic Acid 1.0 (0.5-2.0) mmol/L Calcium 10.1 (8.4-10.2) mg/dL Magnesium 1.9 (1.6-2.6) mg/dL Total Bilirubin 0.5 (0.0-1.0) mg/dL Direct Bilirubin 0.2 (0.0-0.5) mg/dL AST 12 (5-31) U/L ALT 14 (0-31) U/L Alkaline Phosphatase 61 (39-117) U/L Ammonia 45 (13-55) umol/L Troponin I High Sens 6.3 (<3.5-17.0) ng/L B-Natriuretic Peptide 12 (<100) pg/mL Total Protein 7.5 (6.5-8.0) g/dL Albumin 4.3 (3.5-5.0) g/dL TSH < 0.01 L (0.32-4.0) uIU/mL Free T4 2.10 H (0.71-1.85) ng/dL Urine Color Urine Appearance Urine pH (5.0-9.0) Ur Specific Carmi (1.005-1.025) Urine Protein (Neg-Trace) mg/dL Urine Glucose (UA) (Negative) mg/dL Urine Ketones (Negative) mg/dL Urine Blood (Negative) Urine Nitrite (Negative) Ur Leukocyte Esterase (Negative) Urine RBC (0-2) /HPF Urine WBC (0-5) /HPF Ur Squamous Epith Cells (0-2) /HPF Urine Bacteria (None Seen) Hyaline Casts (0-2) /LPF Urine Opiates Screen (Not Detect) Ur Buprenorphine Scrn (Not Detect) ng/mL Ur Oxycodone Screen (Not Detect) ng/mL Urine Methadone Screen (Not Detect) ng/mL Urine Fentanyl Screen (Not Detect) Ur Barbiturates Screen (Not Detect) Ur Phencyclidine Scrn (Not Detect) Ur Amphetamines Screen (Not Detect) U Benzodiazepines Scrn (Not Detect) Urine Cocaine Screen (Not Detect) U Marijuana (THC) Screen (Not Detect) Ethyl Alcohol < 10 mg/dL Influenza Type A (PCR) NEGATIVE (Negative) Influenza Type B (PCR) NEGATIVE (Negative) RSV RNA Qual (PCR) NEGATIVE (Negative) SARS-CoV-2 RNA (RT-PCR) NEGATIVE (Negative) 07/20/24 Range/Units 17:12 WBC (4.8-10.8) X10*3/uL RBC (4.20-5.50) X10*6/uL Hgb (12.0-16.0) g/dl Hct (37.0-47.0) % MCV (80.0-98.0) fL MCH (27.0-33.0) pg MCHC (31.0-35.0) g/dl RDW (11.0-16.0) % Plt Count (160-400) X10*3/uL MPV (9.4-12.3) fL Immature Gran % (Auto) (0.0-0.4) % Neut % (Auto) (45-73) % Lymph % (Auto) (20-40) % Knott % (Auto) (2-11) % Eos % (Auto) (0-4) % Baso % (Auto) (0-2) % Lymph # (Auto) (1.2-4.9) X10*3/uL Knott # (Auto) (0.1-1.2) X10*3/uL Eos # (Auto) (0.0-0.4) X10*3/uL Baso # (Auto) (0.0-0.2) X10*3/uL Abs Immat Gran (auto) (0.00-0.03) X10*3/uL Absolute Neuts (auto) (2.0-8.3) x10*3/uL Absolute Nucleated RBC (0.0-0.012) X10*3/uL Nucleated RBC % (auto) (0.0-0.2) /100WBC Hold Purple Top PT (11.1-13.3) SEC INR (0.9-1.1) APTT (26.0-36.8) SEC VBG pH (7.32-7.43) VBG pCO2 mmHg VBG pO2 mmHg VBG HCO3 (22-26) mmol/L VBG O2 Saturation % VBG Base Excess mmol/L Sodium (135-145) mmol/L Potassium (3.3-5.1) mmol/L Chloride (96-108) mmol/L Carbon Dioxide (22-29) mmol/L Anion Gap (12-20) BUN (9-16) mg/dL Creatinine (0.5-1.4) mg/dL Estim Creat Clear Calc Estimated GFR Random Glucose (60-115) mg/dL Lactic Acid (0.5-2.0) mmol/L Calcium (8.4-10.2) mg/dL Magnesium (1.6-2.6) mg/dL Total Bilirubin (0.0-1.0) mg/dL Direct Bilirubin (0.0-0.5) mg/dL AST (5-31) U/L ALT (0-31) U/L Alkaline Phosphatase (39-117) U/L Ammonia (13-55) umol/L Troponin I High Sens (<3.5-17.0) ng/L B-Natriuretic Peptide (<100) pg/mL Total Protein (6.5-8.0) g/dL Albumin (3.5-5.0) g/dL TSH (0.32-4.0) uIU/mL Free T4 (0.71-1.85) ng/dL Urine Color Yellow Urine Appearance Clear Urine pH 5.5 (5.0-9.0) Ur Specific Carmi 1.020 (1.005-1.025) Urine Protein Trace (Neg-Trace) mg/dL Urine Glucose (UA) Negative (Negative) mg/dL Urine Ketones Trace (Negative) mg/dL Urine Blood Negative (Negative) Urine Nitrite Negative (Negative) Ur Leukocyte Esterase Small (1+) H (Negative) Urine RBC 0-2 (0-2) /HPF Urine WBC 11-20 H (0-5) /HPF Ur Squamous Epith Cells 3-5 (0-2) /HPF Urine Bacteria None Seen (None Seen) Hyaline Casts >20 (0-2) /LPF Urine Opiates Screen Not Detected (Not Detect) Ur Buprenorphine Scrn Not Detected (Not Detect) ng/mL Ur Oxycodone Screen Not Detected (Not Detect) ng/mL Urine Methadone Screen Not Detected (Not Detect) ng/mL Urine Fentanyl Screen Not Detected (Not Detect) Ur Barbiturates Screen Not Detected (Not Detect) Ur Phencyclidine Scrn Not Detected (Not Detect) Ur Amphetamines Screen Not Detected (Not Detect) U Benzodiazepines Scrn Not Detected (Not Detect) Urine Cocaine Screen POSITIVE H (Not Detect) U Marijuana (THC) Screen POSITIVE H (Not Detect) Ethyl Alcohol mg/dL Influenza Type A (PCR) (Negative) Influenza Type B (PCR) (Negative) RSV RNA Qual (PCR) (Negative) SARS-CoV-2 RNA (RT-PCR) (Negative) Independent Interpretation I performed an independent interpretation of an: EKG and Plain X-Ray Interpretation: Chest x-ray without any focal infiltrate to suggest pneumonia EKG with normal sinus rhythm, ventricular rate 83 beats per minute, no ST segment elevations or depressions. Normal QTC, normal VT interval Radiology Impression Discussion of test interpretation with radiology: I have reviewed the radiologist's reading. Radiologist Impression: EXAMINATION: XR CHEST CLINICAL INFORMATION: Altered mental status COMPARISON: Chest radiograph 11/09/2022 TECHNIQUE: Frontal view of the chest was obtained. FINDINGS: Lung volumes are somewhat diminished which results in crowding of bronchovascular structures. No focal airspace opacities are seen. There is no pleural effusion or pneumothorax. The cardiac mediastinal contours are similar to prior. The structures of the chest wall are intact. There are posttraumatic changes of the right proximal humerus and there has been prior anterior cervical fixation. XR/XR chest 1V IMPRESSION: No acute process. Independent Historian Clinical information obtained from an independent historian. History obtained from or confirmed by: EMS External Record Review External record reviewed: Outpatient record, Prior outpatient labs, Prior outpatient radiology and Outside ED record Tests considered The following testing was considered but not selected: CT scan of her abdomen or renal ultrasound were considered however not emergently needed, will plan to hydrate and repeat her renal function tests. imaging can be done on an inpatient basis p.r.n. Prescription Management I considered prescription management with: Antibiotic Chronic Conditions Patient?s care impacted by: Other (Stroke, chronic Quinonez) Social Determinants Patient?s care significantly limited by Social Determinants of Health including: Problems related to primary support group and Other Social Determinant of Health Critical Care Time Critical Care Time Critical Care Time: Yes Total Critical Care Time: 48 Attestation: I have personally provided critical care time exclusive of time spent on separately billable procedures. Time includes review of lab data, radiology results, discussion with consultants, and monitoring for potential decompensation. Intervention performed as documented. Discharge Plan Discharge Clinical Impression: Acute UTI, ANISA (acute kidney injury), Cocaine use disorder Encephalopathy Qualifiers: Encephalopathy type: unspecified encephalopathy Qualified Code(s): G93.40 - Encephalopathy, unspecified Patient Disposition: Admitted As Inpatient Print Language: Slovenian
[2024-07-20 14:54] LABS: MANUAL DIFF FLAG NO
[2024-07-20 14:55] LABS: Basophils Absolute Auto 0.1 X10*3/uL (0.0-0.2); Basophils Percent Auto 0.5 % (0-2); Eosinophils Absolute Auto 0.1 X10*3/uL (0.0-0.4); Eosinophils Percent Auto 1.1 % (0-4); Hematocrit 41.6 % (37.0-47.0); Hemoglobin 14.2 g/dl (12.0-16.0); Imm Gran Abs Auto 0.03 X10*3/uL (0.00-0.03); Imm Gran Pct Auto 0.3 % (0.0-0.4); Lymphocytes Percent Auto 21.4 % (20-40); Mean Corpuscular HGB Conc 34.1 g/dl (31.0-35.0); Mean Corpuscular Hemoglobin 28.4 pg (27.0-33.0); Mean Corpuscular Volume 83.2 fL (80.0-98.0); Mean Platelet Volume 9.5 fL (9.4-12.3); Monocytes Absolute Auto 0.6 X10*3/uL (0.1-1.2); Monocytes Percent Auto 5.9 % (2-11); Neutrophils Absolute Auto 6.7 x10*3/uL (2.0-8.3); Neutrophils Percent Auto 70.8 % (45-73); Platelet Count 353 X10*3/uL (160-400); Red Cell Distribution Width 12.1 % (11.0-16.0); White Blood Count 9.5 X10*3/uL (4.8-10.8)
[2024-07-20 14:56] LABS: Venous Blood Gas Refer to POC result
[2024-07-20 14:57] LABS: VBG Base Excess -1.2 mmol/L; VBG HCO3 22 mmol/L (22-26); VBG pCO2 32 mmHg; VBG pH 7.43 (7.32-7.43); VBG pO2 88 mmHg
[2024-07-20 15:00] LABS: Prothrombin Time 12.3 SEC (11.1-13.3)
[2024-07-20 15:03] LABS: Partial Thromboplastin Time 30.6 SEC (26.0-36.8)
[2024-07-20 15:04] LABS: Ammonia 45 umol/L (13-55)
[2024-07-20 15:11] LABS: Alanine Aminotransferase 14 U/L (0-31); Albumin Level 4.3 g/dL (3.5-5.0); Alkaline Phosphatase 61 U/L (39-117); Anion Gap 17 (12-20); Aspartate Amino Transferase 12 U/L (5-31); Bilirubin Direct 0.2 mg/dL (0.0-0.5); Bilirubin Total 0.5 mg/dL (0.0-1.0); Blood Urea Nitrogen 31 mg/dL (9-16); Calcium 10.1 mg/dL (8.4-10.2); Carbon Dioxide 20 mmol/L (22-29); Chloride 109 mmol/L (96-108); Creatinine Clr Calc Pharmacy 30.5; Estimated Glomerular Filt Rate 24; Glucose Random 123 mg/dL (60-115); Magnesium 1.9 mg/dL (1.6-2.6); Potassium 3.8 mmol/L (3.3-5.1); Sodium 142 mmol/L (135-145); Total Protein 7.5 g/dL (6.5-8.0)
[2024-07-20] MEDS: cefTRIAXone sodium 1 GM in 0.9 % Sodium Chloride 50 ML IV (15:12)
[2024-07-20] MEDS: Lactated Ringers 1,000 ML 999 ML IV (15:13)
[2024-07-20 15:18] LABS: Troponin-I High Sensitivity 6.3 ng/L (<3.5-17.0)
[2024-07-20 15:20] LABS: B Type Natriuretic Peptide 12 pg/mL (<100)
[2024-07-20 15:21] LABS: Ethanol < 10 mg/dL
[2024-07-20 15:47] LABS: Influenza A PCR NEGATIVE (Negative); Influenza B PCR NEGATIVE (Negative); Resp Syncy Virus RNA Qual PCR NEGATIVE (Negative); SARS COV2 PCR INHOUSE NEGATIVE (Negative)
[2024-07-20 16:06] LABS: TSH reflex Free T4 < 0.01 uIU/mL (0.32-4.0)
[2024-07-20 17:24] LABS: Appearance Urine Clear; Color Urine Yellow; Glucose Urine UA Negative (Negative); Leukocyte Esterase Urine Small (1+) (Negative); Nitrite Urine Negative (Negative); PH 5.5 (5.0-9.0); UMIC TRIGGER UACC YES; Urine Blood Negative (Negative); Urine Ketones Trace mg/dL (Negative); Urine Protein Trace mg/dL (Neg-Trace)
[2024-07-20 17:32] LABS: Amphetamine Screen Urine Not Detected (Not Detect); Barbiturates, Urine Not Detected (Not Detect); Benzodiazepines Screen Urine Not Detected (Not Detect); Buprenorphine Scr Not Detected (Not Detect); Cannabinoid Screen Urine POSITIVE (Not Detect); Cocaine Screen Urine POSITIVE (Not Detect); Fentanyl, urine Not Detected (Not Detect); Methadone Screen, Urine Not Detected (Not Detect); Opiate Screen Urine Not Detected (Not Detect); Oxycodone Screen Urine Not Detected (Not Detect); Phencyclidine Screen Urine Not Detected (Not Detect)
[2024-07-20 17:44] LABS: Bacteria Urine None Seen (None Seen); Hyaline Casts Urine >20 /LPF (0-2); RBC Urine 0-2 /HPF (0-2); UACC Culture Trigger YES
[2024-07-20] MEDS: 0.9 % Sodium Chloride 1,000 ML 999 ML IVCONT (18:05)
--- NOTE | 2024-07-20 18:07 | PC.NURSE ---
attempted to call Son who is on file as HCP, number not in service
--- NOTE | 2024-07-20 18:36 | PM.IMHP ---
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 Patient recently in [facility] ER from 07/17 to 07/19/2024, initially presenting there with left-sided neck pain, social issues, positive UA. At that time was medically cleared and put on Augmentin for the UTI and seen by psychiatry who felt that she did not need inpatient psychiatry at this time. Patient was discharged home and then next day EMS was called for significant weakness. Patient is unable to provide history. She reports that she is seeing Kenan, she is aware of what hospital she is in and the year but otherwise non participatory in conversation. CT head and chest x-ray unremarkable, UA with some pyuria, creatinine elevated 2.08, TSH less than 0.01, free T4 2.1. Denies history of thyroid disease. Review of Systems Review of Systems: Yes Unobtainable due to mental status [facility] Medical History Hemiparesis affecting left side as late effect of stroke Hypotonic bladder H/O urinary retention GERD (gastroesophageal reflux disease) Hyperlipidemia HTN (hypertension) PFO (patent foramen ovale) Patellofemoral arthrosis Knee derangement Surgical History History of surgery Social History Alcohol intake: current Alcohol intake frequency: a few times a month Alcohol type: beer Patient Tobacco Use Status: Never used Tobacco Smoked in Last 30 Days: No Use of substances other than those prescribed or required for medical reasons: No Substance Use Type: Marijuana Advance Directives: Yes Advance Directives on File: Yes Advance Directives Date on File: 10/27/22 Meds Allergies Allergy/AdvReac Type Severity Reaction Status Date / Time No Known Allergies Allergy Verified 07/20/24 14:04 Active Medications: Current Medications Baclofen (Baclofen 10 Mg Tablet) 10 mg PO TID [facility] Buspirone HCl (Buspirone Hcl 10 Mg Tablet) 10 mg PO BID [facility] Hydroxyzine HCl (Hydroxyzine Hcl 50 Mg Tablet) 50 mg PO Q6H PRN PRN Reason: Anxiety Sodium Chloride (Ns) 1,000 mls @ 999 mls/hr IVCONT .Q1H1M [facility] Stop: 07/20/24 18:45 Last Admin: 07/20/24 18:05 Dose: 999 mls/hr Sodium Chloride (Ns) 1,000 mls @ 100 mls/hr IVCONT .Q10H [facility] Lorazepam (Lorazepam 2 Mg/Ml Vial) 0.5 mg IVPUSH Q6H PRN PRN Reason: agitation Propranolol HCl (Propranolol Hcl 10 Mg Tablet) 10 mg PO TID [facility]; Protocol Venlafaxine HCl (Venlafaxine Hcl Er 75 Mg Cap.Er.24h) 75 mg PO DAILY [facility] Home Medications ?Medication ?Instructions ?Recorded ?Confirmed ?Last Taken ?Type albuterol sulfate 90 mcg/actuation 2 puff inhalation Q4-6H PRN Dyspnea 11/18/21 Unknown History aerosol inhaler (ProAir HFA) atorvastatin 10 mg tablet 80 mg PO BEDTIME 11/18/21 Unknown History clonazepam 1 mg tablet 1 mg PO BID 11/18/21 Unknown History fluticasone propionate 50 2 spray intranasal DAILY 11/18/21 Unknown History mcg/actuation nasal spray,suspension lisinopril 40 mg tablet 40 mg PO DAILY 11/18/21 Unknown History loratadine 10 mg tablet 10 mg PO DAILY 11/18/21 Unknown History metoprolol tartrate 100 mg tablet 100 mg PO BID 11/18/21 Unknown History oxycodone-acetaminophen 5 mg-325 1 tab PO Q8H PRN severe pain 11/18/21 Unknown History mg tablet venlafaxine 150 mg 150 mg PO DAILY 11/18/21 Unknown History capsule,extended release 24 hr aspirin 81 mg tablet,delayed 81 mg PO DAILY 12/07/23 Unknown History release (Adult Aspirin Regimen) amlodipine 10 mg tablet (Norvasc) 5 mg 06/11/24 Unknown History gabapentin 300 mg capsule 300 mg 06/11/24 Unknown History Physical Exam Vital Signs and Narrative: Vital Signs: Last Vital Signs Temp 98.6 F 07/20/24 17:53 Pulse 95 07/20/24 17:53 Resp 22 H 07/20/24 17:53 BP 159/81 H 07/20/24 17:53 Pulse Ox 97 07/20/24 17:53 O2 Del Method Room Air 07/20/24 17:53 BMI result Body Mass Index 31.1 General: Lethargic O X 3, ill-appearing Resp: CTA bilateral, no accessory muscles used CVS: S1,S2,RRR GI: soft, non tender, non distended Neuro: Left-sided hemiparesis, somewhat contracted on the left, myoclonic jerks Results Labs 07/20/24 14:48 07/20/24 14:48 Labs: Laboratory Results - last 24 hr 07/20/24 07/20/24 07/20/24 14:48 14:52 15:01 MCV 83.2 MCH 28.4 MCHC 34.1 RDW 12.1 Plt Count 353 MPV 9.5 Immature Gran % (Auto) 0.3 Neut % (Auto) 70.8 Lymph % (Auto) 21.4 Dawes % (Auto) 5.9 Eos % (Auto) 1.1 Baso % (Auto) 0.5 Lymph # (Auto) 2.0 Dawes # (Auto) 0.6 Eos # (Auto) 0.1 Baso # (Auto) 0.1 Abs Immat Gran (auto) 0.03 Absolute Neuts (auto) 6.7 Absolute Nucleated RBC 0.000 Nucleated RBC % (auto) 0.0 Hold Purple Top SEE NOTE PT 12.3 INR 1.0 APTT 30.6 VBG pH 7.43 VBG pCO2 32 VBG pO2 88 VBG HCO3 22 VBG O2 Saturation 99.0 VBG Base Excess -1.2 Anion Gap 17 Estim Creat Clear Calc 30.5 Estimated GFR 24 Random Glucose 123 H Lactic Acid 1.0 Calcium 10.1 Magnesium 1.9 Total Bilirubin 0.5 Direct Bilirubin 0.2 AST 12 ALT 14 Alkaline Phosphatase 61 Ammonia 45 Troponin I High Sens 6.3 B-Natriuretic Peptide 12 Total Protein 7.5 Albumin 4.3 TSH < 0.01 L Free T4 2.10 H Urine Color Urine Appearance Urine pH Ur Specific [place] Urine Protein Urine Glucose (UA) Urine Ketones Urine Blood Urine Nitrite Ur Leukocyte Esterase Urine RBC Urine WBC Ur Squamous Epith Cells Urine Bacteria Hyaline Casts Urine Opiates Screen Ur Buprenorphine Scrn Ur Oxycodone Screen Urine Methadone Screen Urine Fentanyl Screen Ur Barbiturates Screen Ur Phencyclidine Scrn Ur Amphetamines Screen U Benzodiazepines Scrn Urine Cocaine Screen U Marijuana (THC) Screen Ethyl Alcohol < 10 Influenza Type A (PCR) NEGATIVE Influenza Type B (PCR) NEGATIVE RSV RNA Qual (PCR) NEGATIVE SARS-CoV-2 RNA (RT-PCR) NEGATIVE 07/20/24 17:12 MCV MCH MCHC RDW Plt Count MPV Immature Gran % (Auto) Neut % (Auto) Lymph % (Auto) Dawes % (Auto) Eos % (Auto) Baso % (Auto) Lymph # (Auto) Daw[place] # (Auto) Eos # (Auto) Baso # (Auto) Abs Immat Gran (auto) Absolute Neuts (auto) Absolute Nucleated RBC Nucleated RBC % (auto) Hold Purple Top PT INR APTT VBG pH VBG pCO2 VBG pO2 VBG HCO3 VBG O2 Saturation VBG Base Excess Anion Gap Estim Creat Clear Calc Estimated GFR Random Glucose Lactic Acid Calcium Magnesium Total Bilirubin Direct Bilirubin AST ALT Alkaline Phosphatase Ammonia Troponin I High Sens B-Natriuretic Peptide Total Protein Albumin TSH Free T4 Urine Color Yellow Urine Appearance Clear Urine pH 5.5 Ur Specific [place] 1.020 Urine Protein Trace Urine Glucose (UA) Negative Urine Ketones Trace Urine Blood Negative Urine Nitrite Negative Ur Leukocyte Esterase Small (1+) H Urine RBC 0-2 Urine WBC 11-20 H Ur Squamous Epith Cells 3-5 Urine Bacteria None Seen Hyaline Casts >20 Urine Opiates Screen Not Detected Ur Buprenorphine Scrn Not Detected Ur Oxycodone Screen Not Detected Urine Methadone Screen Not Detected Urine Fentanyl Screen Not Detected Ur Barbiturates Screen Not Detected Ur Phencyclidine Scrn Not Detected Ur Amphetamines Screen Not Detected U Benzodiazepines Scrn Not Detected Urine Cocaine Screen POSITIVE H U Marijuana (THC) Screen POSITIVE H Ethyl Alcohol Influenza Type A (PCR) Influenza Type B (PCR) RSV RNA Qual (PCR) SARS-CoV-2 RNA (RT-PCR) Imaging Radiologist's Impressions: Impressions Head CT 07/20/24 14:18 IMPRESSION: No acute intracranial pathology. Electronically signed by: Vidal Dumont DO 07/20/2024 03:56 PM EDT RP Chest X-Ray 07/20/24 14:40 IMPRESSION: No acute process. Electronically signed by: Joshua Victor MD 07/20/2024 03:41 PM EDT RP Assessment and Plan (1) ANISA (acute kidney injury): Status: Acute Plan 58F PMH neurogenic bladder with chronic indwelling Quinonez, history of CVA 01/26/2024 with residual left-sided hemiparesis, hypertension, migraines, depression and anxiety, called EMS for weaknes Acute metabolic encephalopathy ? Due to acute thyrotoxicosis Check thyroid ultrasound, T3, antibodies Propranolol, methimazole Monitor on telemetry Acute kidney injury Hypovolemic, rule out rhabdo IV hydration, monitor Pyuria in patient with chronic indwelling Quinonez UTI unlikely but will treat empirically with ceftriaxone Follow-up cultures History of CVA Aspirin, statin Hypertension Hold lisinopril, continue propranolol Depression and anxiety Venlafaxine, buspar DVT prophylaxis with heparin Full code Patient with significant alteration mental status and acute kidney injury requiring IV fluids and close monitoring therefore expected require at least 2 midnights inpatient Quality Stroke Does the patient have a stroke diagnosis?: No VTE Prior VTE?: No VTE Risk Level:: Medical - moderate - high VTE Device Contraindication: Treatment Not Indicated VTE Drug Contraindication: N/A - Med Ordered
--- NOTE | 2024-07-20 18:49 | PC.NURSE ---
SISSY Meke [phone]
--- NOTE | 2024-07-20 20:11 | PHA.MEDREC ---
Addendum entered by Mira Robledo RPh 07/20/24 20:59: Med rec was reviewed by [facility]. Original Note: Pharmacy Consult ? Medication Reconciliation Pharmacy has completed the medication reconciliation. Tried to speak to patient , however she was AMS. Tried calling son on file however phone number not in service. spoke to patients SISSY Carlton ([phone]) to con ANDalyze med list. VERTICA ARCHITECT was able to confirm patients medications. VERTICA ARCHITECT states patient no longer Takes Clonazepam 1 mg, Loratadine 10 mg, Methenamine Nadine 1g, Metoprolol tart 100 mg, Oxycodone-acet 5/352 mg. Patient in not on any antibiotic at this time, however she was prescribed Augmentin from [facility] yesterday 07-19-24 but hasn't started it yet.
[2024-07-20] MEDS: 0.9 % Sodium Chloride 1,000 ML 100 ML IVCONT (20:17)
--- NOTE | 2024-07-20 20:22 | PC.NURSE ---
pt is not alert, not waking, unwilling to follow commands. She is sleeping and talking in her sleep. FOr this reason PO med Methimazole held at this time
[2024-07-20] MEDS: Heparin Sodium,Porcine 5,000 UNIT/ML VIAL 5000 UNIT SUBCUT (20:25)
[2024-07-20] MEDS: Baclofen 10 MG TABLET PO (21:24)
[2024-07-20] MEDS: Atorvastatin Calcium 40 MG TABLET PO (21:24)
[2024-07-20] MEDS: busPIRone HCl 10 MG TABLET PO (21:24)
[2024-07-20] MEDS: 0.9 % Sodium Chloride Flush 3 ML SYRINGE IVFLUSH (21:25)
[2024-07-20] MEDS: Propranolol HCL 10 MG TABLET PO (21:32)
[2024-07-20] MEDS: Acetaminophen 325 MG TABLET 650 MG PO (22:04)
[2024-07-20] MEDS: hydrOXYzine HCL 50 MG TABLET PO (22:04)
[2024-07-20] MEDS: LORazepam 2 MG/ML VIAL 0.5 MG IVPUSH (22:26)
[2024-07-21] VITALS (7 sets, daily range): BP systolic 101–167; BP diastolic 61–86; PULSE 77–87; RESP 18–20; TEMP 36.1–36.6; O2SAT 96–98
[2024-07-21] MEDS: Heparin Sodium,Porcine 5,000 UNIT/ML VIAL 5000 UNIT SUBCUT ×3 (02:45→18:11)
[2024-07-21] MEDS: 0.9 % Sodium Chloride 1,000 ML 100 ML IVCONT ×2 (06:02→16:29)
[2024-07-21] MEDS: 0.9 % Sodium Chloride Flush 3 ML SYRINGE IVFLUSH (09:26)
[2024-07-21] MEDS: Propranolol HCL 10 MG TABLET PO ×3 (09:27→20:02)
[2024-07-21] MEDS: busPIRone HCl 10 MG TABLET PO ×2 (09:27→20:02)
[2024-07-21] MEDS: Cholecalciferol (Vitamin D3) 25 MCG TABLET 50 MCG OG-TUBE (09:27)
[2024-07-21] MEDS: ARIPiprazole 10 MG TABLET PO (09:27)
[2024-07-21] MEDS: Baclofen 10 MG TABLET PO ×3 (09:27→20:02)
[2024-07-21] MEDS: Aspirin Enteric Coated 81 MG TABLET.DR PO (09:27)
[2024-07-21] MEDS: Ascorbic Acid 500 MG TABLET 1000 MG PO (09:27)
[2024-07-21] MEDS: Venlafaxine HCl ER 75 MG CAP.ER.24H PO (09:27)
--- NOTE | 2024-07-21 10:07 | HO.PM.IMPN ---
Subjective Subjective Date of Service: 07/21/24 Interval History: non paritcipatory Physical Exam Vital Signs: Vital Signs: Last Vital Signs Temp 97.0 F 07/21/24 07:28 Pulse 80 07/21/24 07:28 Resp 18 07/21/24 07:28 BP 134/65 07/21/24 07:28 Pulse Ox 96 07/21/24 07:28 O2 Del Method Room Air 07/21/24 07:28 BMI result Body Mass Index 31.1 alert but not talking or responding to conversation, less rigid, movements have stopped. Objective Data Active Medications Acetaminophen (Acetaminophen 325 Mg Tablet) 650 mg PO Q6H PRN PRN Reason: Pain, Mild (Pain Scale 1-3), fever or headache Last Admin: 07/20/24 22:04 Dose: 650 mg Documented By: NICOLE Aripiprazole (Aripiprazole 10 Mg Tablet) 10 mg PO DAILY [facility] Last Admin: 07/21/24 09:27 Dose: 10 mg Documented By: SKYLA Ascorbic Acid (Ascorbic Acid 500 Mg Tablet) 1,000 mg PO DAILY [facility] Last Admin: 07/21/24 09:27 Dose: 1,000 mg Documented By: SKYLA Aspirin (Aspirin Enteric Coated 81 Mg Tablet.Dr) 81 mg PO DAILY [facility] Last Admin: 07/21/24 09:27 Dose: 81 mg Documented By: SKYLA Atorvastatin Calcium (Atorvastatin Calcium 40 Mg Tablet) 40 mg PO BEDTIME [facility] Last Admin: 07/20/24 21:24 Dose: 40 mg Documented By: NICOLE Baclofen (Baclofen 10 Mg Tablet) 10 mg PO TID [facility] Last Admin: 07/21/24 09:27 Dose: 10 mg Documented By: SKYLA Buspirone HCl (Buspirone Hcl 10 Mg Tablet) 10 mg PO BID [facility] Last Admin: 07/21/24 09:27 Dose: 10 mg Documented By: SKYLA Calcium Carbonate (Calcium Carbonate 750 Mg Tab.Chew) 750 mg PO Q4H PRN PRN Reason: Heartburn Heparin Sodium (Porcine) (Heparin Sodium,Porcine 5,000 Unit/Ml Vial) 5,000 unit SUBCUT Q8H [facility] Last Admin: 07/21/24 09:26 Dose: 5,000 unit Documented By: SKYLA Hydroxyzine HCl (Hydroxyzine Hcl 50 Mg Tablet) 50 mg PO Q6H PRN PRN Reason: Anxiety Last Admin: 07/20/24 22:04 Dose: 50 mg Documented By: NICOLE Sodium Chloride (Ns) 1,000 mls @ 100 mls/hr IVCONT .Q10H [facility] Last Admin: 07/21/24 06:02 Dose: 100 mls/hr Documented By: NICOLE Lorazepam (Lorazepam 2 Mg/Ml Vial) 0.5 mg IVPUSH Q6H PRN PRN Reason: agitation Last Admin: 07/20/24 22:26 Dose: 0.5 mg Documented By: NICOLE Magnesium Hydroxide (Milk Of Magnesia 30 Ml Oral.Susp) 30 ml PO DAILY PRN PRN Reason: Constipation Melatonin (Melatonin 3 Mg Tablet) 6 mg PO BEDTIME PRN PRN Reason: Insomnia Methimazole (Methimazole 10 Mg Tablet) 10 mg PO DAILY [facility] Propranolol HCl (Propranolol Hcl 10 Mg Tablet) 10 mg PO TID [facility]; Protocol Last Admin: 07/21/24 09:27 Dose: 10 mg Documented By: SKYLA Sodium Chloride (0.9 % Sodium Chloride Flush 3 Ml Syringe) 3 ml IVFLUSH QSHIFT [facility] Last Admin: 07/21/24 09:26 Dose: 3 ml Documented By: SKYLA Venlafaxine HCl (Venlafaxine Hcl Er 75 Mg Cap.Er.24h) 75 mg PO DAILY [facility] Last Admin: 07/21/24 09:27 Dose: 75 mg Documented By: SKYLA Vitamin D (Cholecalciferol (Vitamin D3) 25 Mcg Tablet) 50 mcg OG-TUBE DAILY [facility] Last Admin: 07/21/24 09:27 Dose: 50 mcg Documented By: SKYLA Labs 07/20/24 14:48 07/20/24 14:48 Labs: Laboratory Results - last 24 hr 07/20/24 07/20/24 07/20/24 14:48 14:52 15:01 MCV 83.2 MCH 28.4 MCHC 34.1 RDW 12.1 Plt Count 353 MPV 9.5 Immature Gran % (Auto) 0.3 Neut % (Auto) 70.8 Lymph % (Auto) 21.4 Keith % (Auto) 5.9 Eos % (Auto) 1.1 Baso % (Auto) 0.5 Lymph # (Auto) 2.0 Keith # (Auto) 0.6 Eos # (Auto) 0.1 Baso # (Auto) 0.1 Abs Immat Gran (auto) 0.03 Absolute Neuts (auto) 6.7 Absolute Nucleated RBC 0.000 Nucleated RBC % (auto) 0.0 Hold Purple Top SEE NOTE PT 12.3 INR 1.0 APTT 30.6 VBG pH 7.43 VBG pCO2 32 VBG pO2 88 VBG HCO3 22 VBG O2 Saturation 99.0 VBG Base Excess -1.2 Anion Gap 17 Estim Creat Clear Calc 30.5 Estimated GFR 24 Random Glucose 123 H Lactic Acid 1.0 Calcium 10.1 Magnesium 1.9 Total Bilirubin 0.5 Direct Bilirubin 0.2 AST 12 ALT 14 Alkaline Phosphatase 61 Ammonia 45 Total Creatine Kinase 27 Troponin I High Sens 6.3 B-Natriuretic Peptide 12 Total Protein 7.5 Albumin 4.3 TSH < 0.01 L Free T4 2.10 H Urine Color Urine Appearance Urine pH Ur Specific [place] Urine Protein Urine Glucose (UA) Urine Ketones Urine Blood Urine Nitrite Ur Leukocyte Esterase Urine RBC Urine WBC Ur Squamous Epith Cells Urine Bacteria Hyaline Casts Urine Opiates Screen Ur Buprenorphine Scrn Ur Oxycodone Screen Urine Methadone Screen Urine Fentanyl Screen Ur Barbiturates Screen Ur Phencyclidine Scrn Ur Amphetamines Screen U Benzodiazepines Scrn Urine Cocaine Screen U Marijuana (THC) Screen Ethyl Alcohol < 10 Influenza Type A (PCR) NEGATIVE Influenza Type B (PCR) NEGATIVE RSV RNA Qual (PCR) NEGATIVE SARS-CoV-2 RNA (RT-PCR) NEGATIVE 07/20/24 17:12 MCV MCH MCHC RDW Plt Count MPV Immature Gran % (Auto) Neut % (Auto) Lymph % (Auto) [place] % (Auto) Eos % (Auto) Baso % (Auto) Lymph # (Auto) Keith # (Auto) Eos # (Auto) Baso # (Auto) Abs Immat Gran (auto) Absolute Neuts (auto) Absolute Nucleated RBC Nucleated RBC % (auto) Hold Purple Top PT INR APTT VBG pH VBG pCO2 VBG pO2 VBG HCO3 VBG O2 Saturation VBG Base Excess Anion Gap Estim Creat Clear Calc Estimated GFR Random Glucose Lactic Acid Calcium Magnesium Total Bilirubin Direct Bilirubin AST ALT Alkaline Phosphatase Ammonia Total Creatine Kinase Troponin I High Sens B-Natriuretic Peptide Total Protein Albumin TSH Free T4 Urine Color Yellow Urine Appearance Clear Urine pH 5.5 Ur Specific [place] 1.020 Urine Protein Trace Urine Glucose (UA) Negative Urine Ketones Trace Urine Blood Negative Urine Nitrite Negative Ur Leukocyte Esterase Small (1+) H Urine RBC 0-2 Urine WBC 11-20 H Ur Squamous Epith Cells 3-5 Urine Bacteria None Seen Hyaline Casts >20 Urine Opiates Screen Not Detected Ur Buprenorphine Scrn Not Detected Ur Oxycodone Screen Not Detected Urine Methadone Screen Not Detected Urine Fentanyl Screen Not Detected Ur Barbiturates Screen Not Detected Ur Phencyclidine Scrn Not Detected Ur Amphetamines Screen Not Detected U Benzodiazepines Scrn Not Detected Urine Cocaine Screen POSITIVE H U Marijuana (THC) Screen POSITIVE H Ethyl Alcohol Influenza Type A (PCR) Influenza Type B (PCR) RSV RNA Qual (PCR) SARS-CoV-2 RNA (RT-PCR) Assessment and Plan (1) ANISA (acute kidney injury): Status: Acute Plan 58F PMH neurogenic bladder with chronic indwelling Quinonez, history of CVA 01/26/2024 with residual left-sided hemiparesis, hypertension, migraines, depression and anxiety, called EMS for weaknes Acute metabolic encephalopathy ? Due to acute thyrotoxicosis Check T3, antibodies Propranolol, methimazole Monitor on telemetry ddx also includes acute psychosis, toxic encephalopathy from polypharmacy or cocaine induced psychosis Acute kidney injury Hypovolemic, cpk normal IV hydration, monitor Pyuria in patient with chronic indwelling Quinonez UTI unlikely but treating empirically with ceftriaxone Follow-up cultures History of CVA Aspirin, statin Hypertension Hold lisinopril, continue propranolol Depression and anxiety Venlafaxine, buspar DVT prophylaxis with heparin Full code reason for continued hospitalization:not at baseline mental status Quality Stroke Does the patient have a stroke diagnosis?: No VTE Prior VTE?: No VTE Risk Level:: Medical - moderate - high VTE Device Contraindication: Treatment Not Indicated VTE Drug Contraindication: N/A - Med Ordered
[2024-07-21] MEDS: methIMAzole 10 MG TABLET PO (10:40)
[2024-07-21] MEDS: Acetaminophen 325 MG TABLET 650 MG PO (10:40)
[2024-07-21] MEDS: hydrOXYzine HCL 50 MG TABLET PO ×2 (10:40→16:47)
--- NOTE | 2024-07-21 11:05 | MHC.CM.PN ---
EMR REVIEWED, PT ADMITTED W/AMS AND PO FOR COCAINE, CM MET W/PT WHO WAS ABLE TO ANSWER QUESTIONS HOWEVER PT DOZED OFF ON AND OFF AND WHEN CM SPOKE A LITTLE LOUDER TO AROUSE PT SHE WOULD YELL AT CM TO BE QUIETER, CM DID LET PT KNOW [employer] FROM [facility] CONTACTED CM PRIOR TO CM MEETING W/PT AND REPORTED THEY WILL NO LONGER PROVIDE SERVICES FOR PT D/T CONCOMPLIANCE/CANCELLATIONS, PT INSISTING SHE IS COMPLIANT AND REQUESTING NEW VNA SERVICES. 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 HCP ON FILE VERIFIED, PT USES WC AND TYPICALLY USES [facility] FOR TRANSPORT HOWEVER DOES NOT HAVE WC W/HER.
[2024-07-21] MEDS: LORazepam 2 MG/ML VIAL 0.5 MG IVPUSH ×2 (13:45→19:58)
[2024-07-21] MEDS: OLANZapine 10 MG VIAL 5 MG IM (15:14)
[2024-07-21] MEDS: Atorvastatin Calcium 40 MG TABLET PO (20:02)
[2024-07-21] MEDS: Haloperidol Lactate 5 MG/ML VIAL IM (22:58)
[2024-07-22] VITALS (10 sets, daily range): BP systolic 160–186; BP diastolic 84–112; PULSE 67–82; RESP 18–20; TEMP 36.1–36.7; O2SAT 96–98
[2024-07-22] MEDS: 0.9 % Sodium Chloride 1,000 ML 100 ML IVCONT (01:01)
[2024-07-22] MEDS: Acetaminophen 325 MG TABLET 650 MG PO ×3 (02:37→20:29)
[2024-07-22] MEDS: Heparin Sodium,Porcine 5,000 UNIT/ML VIAL 5000 UNIT SUBCUT ×3 (02:45→18:30)
--- NOTE | 2024-07-22 03:56 | PC.NURSE ---
Late entry: Upon assuming care of pt at 19:00, pt was confused, yelling/screaming out loud, anxious, and restless. PRN Ativan was administered to pt at 19:58 with no effect. Pt became more anxious, restless, verbally aggressive, swinging arms towards staff, unable to be redirected by staff. MD Crabtree notified of the situation. One time dose of Haldol 5mg IM was given to pt, see MAR with minimal effect. 1:1 sitter placed at pt's bedside, bed in lowest position, call jones within reach. Will continue to monitor.
--- NOTE | 2024-07-22 04:08 | PC.NURSE ---
Addendum entered by Myah Vázquez RN 07/22/24 04:10: Recheck BP: 186/84 manually. MD Crabtree notified of the rechecked BP. No new orders at this time.Will continue to monitor pt's BP. Original Note: Pt with elevated BP 180/100 manually. MD Crabtree notified of elevated BP. No new orders were given, just to recheck in 2 hrs. Will continue to monitor.
--- NOTE | 2024-07-22 06:28 | PC.NURSE ---
Pt's IV infiltrated this morning, L arm swollen. Pt is refusing to have the IV removed from this RN. Pt is also refusing to put in an new IV, becomes verbally aggressive and agitated. MD Crabtree and Nursing Adult Education Instructor made aware of the situation. Will continue to monitor.
[2024-07-22] MEDS: Propranolol HCL 10 MG TABLET PO ×3 (10:12→20:26)
[2024-07-22] MEDS: Ascorbic Acid 500 MG TABLET 1000 MG PO (10:13)
[2024-07-22] MEDS: Aspirin Enteric Coated 81 MG TABLET.DR PO (10:13)
[2024-07-22] MEDS: ARIPiprazole 10 MG TABLET PO (10:13)
[2024-07-22] MEDS: Baclofen 10 MG TABLET PO ×3 (10:13→20:26)
[2024-07-22] MEDS: Cholecalciferol (Vitamin D3) 25 MCG TABLET 50 MCG OG-TUBE (10:13)
[2024-07-22] MEDS: Venlafaxine HCl ER 75 MG CAP.ER.24H PO (10:13)
[2024-07-22] MEDS: busPIRone HCl 10 MG TABLET PO ×2 (10:13→20:26)
[2024-07-22] MEDS: methIMAzole 10 MG TABLET PO (10:17)
[2024-07-22] MEDS: 0.9 % Sodium Chloride Flush 3 ML SYRINGE IVFLUSH (10:21)
--- NOTE | 2024-07-22 10:44 | P.PNIM_ITS ---
Subjective Subjective Date of Service: 07/22/24 Interval History: Much more with it today, no active complaints Physical Exam 2 Vital Signs: Vital Signs: Last Vital Signs Temp 97.3 F 07/22/24 07:42 Pulse 67 07/22/24 10:12 Resp 18 07/22/24 07:42 BP 160/90 H 07/22/24 10:12 Pulse Ox 96 07/22/24 04:00 O2 Del Method Room Air 07/22/24 07:42 BMI result Body Mass Index 31.1 A little lethargic, oriented x3, no further abnormal movements, some left-sided hemiparesis Objective Data Active Medications Acetaminophen (Acetaminophen 325 Mg Tablet) 650 mg PO Q6H PRN PRN Reason: Pain, Mild (Pain Scale 1-3), fever or headache Last Admin: 07/22/24 02:37 Dose: 650 mg Documented By: JAYCEE Comments: per pt request Aripiprazole (Aripiprazole 10 Mg Tablet) 10 mg PO DAILY [facility] Last Admin: 07/22/24 10:13 Dose: 10 mg Documented By: CECILIA Ascorbic Acid (Ascorbic Acid 500 Mg Tablet) 1,000 mg PO DAILY [facility] Last Admin: 07/22/24 10:13 Dose: 1,000 mg Documented By: CECILIA Aspirin (Aspirin Enteric Coated 81 Mg Tablet.Dr) 81 mg PO DAILY [facility] Last Admin: 07/22/24 10:13 Dose: 81 mg Documented By: CECILIA Atorvastatin Calcium (Atorvastatin Calcium 40 Mg Tablet) 40 mg PO BEDTIME [facility] Last Admin: 07/21/24 20:02 Dose: 40 mg Documented By: JAYCEE Baclofen (Baclofen 10 Mg Tablet) 10 mg PO TID [facility] Last Admin: 07/22/24 10:13 Dose: 10 mg Documented By: CECILIA Buspirone HCl (Buspirone Hcl 10 Mg Tablet) 10 mg PO BID [facility] Last Admin: 07/22/24 10:13 Dose: 10 mg Documented By: CECILIA Calcium Carbonate (Calcium Carbonate 750 Mg Tab.Chew) 750 mg PO Q4H PRN PRN Reason: Heartburn Heparin Sodium (Porcine) (Heparin Sodium,Porcine 5,000 Unit/Ml Vial) 5,000 unit SUBCUT Q8H [facility] Last Admin: 07/22/24 10:13 Dose: 5,000 unit Documented By: CECILIA Hydroxyzine HCl (Hydroxyzine Hcl 50 Mg Tablet) 50 mg PO Q6H PRN PRN Reason: Anxiety Last Admin: 07/21/24 16:47 Dose: 50 mg Documented By: SKYLA Sodium Chloride (Ns) 1,000 mls @ 100 mls/hr IVCONT .Q10H [facility] Last Infusion: 07/22/24 06:20 Dose: 0 mls/hr Documented By: JAYCEE Lorazepam (Lorazepam 2 Mg/Ml Vial) 0.5 mg IVPUSH Q6H PRN PRN Reason: agitation Last Admin: 07/21/24 19:58 Dose: 0.5 mg Documented By: JAYCEE Magnesium Hydroxide (Milk Of Magnesia 30 Ml Oral.Susp) 30 ml PO DAILY PRN PRN Reason: Constipation Melatonin (Melatonin 3 Mg Tablet) 6 mg PO BEDTIME PRN PRN Reason: Insomnia Methimazole (Methimazole 10 Mg Tablet) 10 mg PO DAILY [facility] Last Admin: 07/22/24 10:17 Dose: 10 mg Documented By: CECILIA Propranolol HCl (Propranolol Hcl 10 Mg Tablet) 10 mg PO TID [facility]; Protocol Last Admin: 07/22/24 10:12 Dose: 10 mg Documented By: CECILIA Sodium Chloride (0.9 % Sodium Chloride Flush 3 Ml Syringe) 3 ml IVFLUSH QSHIFT [facility] Last Admin: 07/22/24 10:21 Dose: 3 ml Documented By: CECILIA Venlafaxine HCl (Venlafaxine Hcl Er 75 Mg Cap.Er.24h) 75 mg PO DAILY [facility] Last Admin: 07/22/24 10:13 Dose: 75 mg Documented By: CECILIA Vitamin D (Cholecalciferol (Vitamin D3) 25 Mcg Tablet) 50 mcg OG-TUBE DAILY [facility] Last Admin: 07/22/24 10:13 Dose: 50 mcg Documented By: CECILIA Labs 07/20/24 14:48 07/20/24 14:48 Microbiology Microbiology Results: Microbiology 07/20/24 17:58 Urine Culture - Final Urine clean catch - Clean Catch Midstream 07/20/24 15:01 Blood Culture - Preliminary Blood - Venous No growth after 24 hours. 07/20/24 14:48 Blood Culture - Preliminary Blood - Venous No growth after 24 hours. 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 Due to acute thyrotoxicosis Check T3, antibodies Propranolol, methimazole Monitor on telemetry ddx also includes acute psychosis, toxic encephalopathy from polypharmacy or cocaine induced psychosis Received 2 doses of antipsychotic yesterday, overall much improved this morning Acute kidney injury Hypovolemic, cpk normal IV hydration, monitor Pyuria in patient with chronic indwelling Quinonez UTI unlikely but treating empirically with ceftriaxone Cultures with mixed nhan History of CVA Aspirin, statin Hypertension Hold lisinopril, continue propranolol Depression and anxiety Venlafaxine, buspar DVT prophylaxis with heparin Full code reason for continued hospitalization:not at baseline mental status Quality Stroke Does the patient have a stroke diagnosis?: No VTE Prior VTE?: No VTE Risk Level:: Medical - moderate - high VTE Device Contraindication: Treatment Not Indicated VTE Drug Contraindication: N/A - Med Ordered
[2024-07-22] MEDS: Lidocaine 4 % Patch ADH..PATCH 1 PATCH TRANSDERMA (14:21)
[2024-07-22] MEDS: Atorvastatin Calcium 40 MG TABLET PO (20:26)
[2024-07-22] MEDS: Gabapentin 300 MG CAPSULE PO (21:41)
[2024-07-23] VITALS: BP 182/76; PULSE 68; RESP 20; TEMP 36.1; O2SAT 98
[2024-07-23 03:30] VITALS: BP 158/88; PULSE 68; RESP 20; TEMP 36.1; O2SAT 97
[2024-07-23] MEDS: Heparin Sodium,Porcine 5,000 UNIT/ML VIAL 5000 UNIT SUBCUT ×2 (04:33→09:59)
[2024-07-23] MEDS: Acetaminophen 325 MG TABLET 650 MG PO (05:23)
[2024-07-23 05:48] LABS: Triiodothyronine T3 Total 242 ng/dL (76-181)
[2024-07-23 07:40] LABS: Hematocrit 36.5 % (37.0-47.0); Hemoglobin 12.6 g/dl (12.0-16.0); Mean Corpuscular HGB Conc 34.5 g/dl (31.0-35.0); Mean Corpuscular Hemoglobin 28.3 pg (27.0-33.0); Mean Corpuscular Volume 81.8 fL (80.0-98.0); Mean Platelet Volume 10.2 fL (9.4-12.3); Platelet Count 310 X10*3/uL (160-400); Red Blood Count 4.46 X10*6/uL (4.20-5.50); Red Cell Distribution Width 11.5 % (11.0-16.0); White Blood Count 6.8 X10*3/uL (4.8-10.8)
[2024-07-23 08:00] VITALS: BP 145/98; PULSE 66; RESP 18; TEMP 36.2; O2SAT 97
[2024-07-23 08:12] LABS: Alanine Aminotransferase 11 U/L (0-31); Albumin Level 3.7 g/dL (3.5-5.0); Alkaline Phosphatase 53 U/L (39-117); Anion Gap 13 (12-20); Aspartate Amino Transferase 14 U/L (5-31); Bilirubin Direct 0.2 mg/dL (0.0-0.5); Bilirubin Total 0.5 mg/dL (0.0-1.0); Blood Urea Nitrogen 10 mg/dL (9-16); Calcium 9.7 mg/dL (8.4-10.2); Carbon Dioxide 23 mmol/L (22-29); Chloride 112 mmol/L (96-108); Creatinine Clr Calc Pharmacy 90.8; Estimated Glomerular Filt Rate > 60; Glucose Fasting 149 mg/dL (60-99); Sodium 145 mmol/L (135-145); Total Protein 6.6 g/dL (6.5-8.0)
[2024-07-23 08:18] LABS: Magnesium 1.3 mg/dL (1.6-2.6)
[2024-07-23 09:58] VITALS: BP 145/98; PULSE 66
[2024-07-23] MEDS: Magnesium Oxide 400 MG TABLET 800 MG PO (09:58)
[2024-07-23] MEDS: Propranolol HCL 10 MG TABLET PO (09:58)
[2024-07-23] MEDS: Aspirin Enteric Coated 81 MG TABLET.DR PO (09:58)
[2024-07-23] MEDS: ARIPiprazole 10 MG TABLET PO (09:58)
[2024-07-23] MEDS: Ascorbic Acid 500 MG TABLET 1000 MG PO (09:58)
[2024-07-23] MEDS: Venlafaxine HCl ER 75 MG CAP.ER.24H PO (09:59)
[2024-07-23] MEDS: Potassium Chloride ER 20 MEQ TAB.ER.PRT 40 MEQ PO (09:59)
[2024-07-23] MEDS: methIMAzole 10 MG TABLET PO (09:59)
[2024-07-23] MEDS: Baclofen 10 MG TABLET PO (09:59)
[2024-07-23] MEDS: busPIRone HCl 10 MG TABLET PO (09:59)
[2024-07-23] MEDS: Gabapentin 300 MG CAPSULE PO (09:59)
[2024-07-23] MEDS: Cholecalciferol (Vitamin D3) 25 MCG TABLET 50 MCG OG-TUBE (09:59)
--- NOTE | 2024-07-23 10:06 | PM.DS ---
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 Patient recently in [facility] ER from 07/17 to 07/19/2024, initially presenting there with left-sided neck pain, social issues, positive UA. At that time was medically cleared and put on Augmentin for the UTI and seen by psychiatry who felt that she did not need inpatient psychiatry at this time. Patient was discharged home and then next day EMS was called for significant weakness. Patient is unable to provide history. She reports that she is seeing Kenan, she is aware of what hospital she is in and the year but otherwise non participatory in conversation. CT head and chest x-ray unremarkable, UA with some pyuria, creatinine elevated 2.08, TSH less than 0.01, free T4 2.1. Denies history of thyroid disease. hospital course: Patient was admitted for acute metabolic encephalopathy. Found to be due to acute thyroid toxicosis. TSH was less than 0.01, T4 was 2.1, T3 was 242. Patient was started on propranolol and methimazole. Over the next 3 days patient is mental status improved to baseline. Differential diagnosis also includes acute cocaine induced psychosis, urinary tract infection, polypharmacy. On discharge patient will be referred to endocrinology for further follow-up. Thyroid ultrasound was unremarkable, antibodies are pending. For acute kidney injury due to hypovolemia patient received IV hydration and acute kidney injury resolved. For pyuria in a patient with chronic indwelling Quinonez patient was given empiric ceftriaxone, culture grew mixed nhan, will not continue antibiotics on discharge. For history of CVA was continued on aspirin and statin. For hypertension lisinopril has been discontinued due to acute kidney injury, was started on propranolol. For depression and anxiety was continued on venlafaxine and BuSpar. Patient is back to her baseline and will be discharged home with [facility]. Time Attestation Discharge Coordination Time (in mins): 33 Quality: Safe Use of Opioids Does Pt have an Active Cancer Diagnosis on the Problem List?: No Quality: Stroke Does the patient have a stroke diagnosis?: No Physical Exam Vital Signs: Vital Signs: Last Vital Signs Temp 97.1 F 07/23/24 08:00 Pulse 66 07/23/24 08:00 Resp 18 07/23/24 08:00 BP 145/98 H 07/23/24 08:00 Pulse Ox 97 07/23/24 08:00 O2 Del Method Room Air, Nasal C annula 07/23/24 08:00 BMI result Body Mass Index 31.1 General: AO X 3, no acute distress Resp: CTA bilateral, no accessory muscles used CVS: S1,S2,RRR GI: soft, non tender, non distended Neuro: left hemiparesis, alert Psych: strange affect, appropriate insight DS: Data Data Completed and Pending Labs on day of discharge: Laboratory Results - last 24 hr 07/20/24 07/23/24 19:03 06:32 WBC 6.8 RBC 4.46 Hgb 12.6 Hct 36.5 L MCV 81.8 MCH 28.3 MCHC 34.5 RDW 11.5 Plt Count 310 MPV 10.2 Absolute Nucleated RBC 0.000 Nucleated RBC % (auto) 0.0 Sodium 145 Potassium 3.0 L D Chloride 112 H Carbon Dioxide 23 Anion Gap 13 BUN 10 Creatinine 0.70 Estim Creat Clear Calc 90.8 Estimated GFR > 60 Fasting Glucose 149 H Calcium 9.7 Magnesium 1.3 L* Total Bilirubin 0.5 Direct Bilirubin 0.2 AST 14 ALT 11 Alkaline Phosphatase 53 Total Protein 6.6 Albumin 3.7 Total T3 242 H Preliminary micro results at discharge 07/20/24 15:01 Blood Culture - Preliminary Blood - Venous No growth after 48 hours. 07/20/24 14:48 Blood Culture - Preliminary Blood - Venous No growth after 48 hours. Discharge Plan Discharge Anticipated Discharge Date/Time: 07/23/24 10:02 Patient Disposition: Home Health Service Discharge Diagnosis: ams, hyperthyroid Referrals: Ulises Bowles MD [Physician] - 1 Week (hyperthyroid) Aliza Paul DO [Primary Care Provider] - 1 Week Discharge Medications: New propranolol 10 mg Tablet 10 mg PO TID Qty: 270 0RF Protocol: Hold for SBP/HR < HOLD for SBP < : 90 HOLD for HR < : 60 methimazole 10 mg Tablet 10 mg PO DAILY Qty: 30 0RF Continued nystatin 100,000 unit/gram cream 1 appl topical DAILY Qty: 15 0RF venlafaxine 75 mg capsule,extended release 24hr 75 mg PO DAILY hydroxyzine HCl 50 mg tablet 50 mg PO Q6H PRN (Reason: anxiety) acetaminophen 650 mg tablet extended release 650 mg PO Q12H PRN (Reason: pain) buspirone 10 mg tablet 10 mg BID cholecalciferol (vitamin D3) 50 mcg (2,000 unit) capsule 50 mcg DAILY aripiprazole 10 mg tablet 10 mg DAILY baclofen 10 mg tablet 10 mg PO TID PRN (Reason: muscle spasm) albuterol sulfate 90 mcg/actuation Hfa Aerosol Inhaler 2 puff INHALATION Q4-6H PRN (Reason: Shortness Of Breath Or Wheezing) gabapentin 300 mg capsule 300 mg TID amlodipine [Norvasc] 10 mg tablet 5 mg DAILY fluticasone propionate 50 mcg/actuation spray,suspension 2 spray intranasal DAILY PRN (Reason: Allergy Symptoms) aspirin [Adult Aspirin Regimen] 81 mg tablet,delayed release (DR/EC) 81 mg PO DAILY ascorbic acid (vitamin C) 1,000 mg tablet 1,000 mg PO DAILY 90 Days Qty: 90 1RF Discontinued cetirizine 10 mg tablet 10 mg PO DAILY PRN (Reason: Allergy Symptoms) hydrochlorothiazide 25 mg tablet 25 mg DAILY lisinopril 40 mg tablet 40 mg PO DAILY Discharge Orders: Discharge Order (Routine); Ordered 07/23/24 Ordered By: Naveen Rodriguez Diet: Advance to usual diet Activity on Discharge: As tolerated Stand Alone Forms: Patient Portal Discharge page Print Language: Swazi Care Plan Goals: recovery Health Concerns: high thyroid, ams Plan of Treatment: started propranolol, methimazole, follow up with endocrinology Assessment: see above
--- NOTE | 2024-07-23 10:44 | MHC.CM.PN ---
Pt has been medically cleared for DC. She will go home this afternoon via BLS. She has [employer] services, referrals have been made to [facility].
[2024-07-23 12:00] VITALS: BP 148/98; PULSE 66; RESP 18; TEMP 36.1; O2SAT 96
[2024-07-24 12:39] LABS: Thyroid Peroxidase Antibodies 43 IU/mL (<9)
[2024-07-27 18:28] LABS: Thyroid Stimulating Immunoglob 173 % baseline (<140)
== END 2024-07-23 13:03 | disposition home health service (06) | DRG 427 ==
LOC: HO.ED 17:55 → HO.EDOVER 18:47 → HO.IMC 19:58
PROVIDERS: Physician Assistant; Admitting Provider Internal Medicine; Emergency Provider Emergency Medicine; PCP Family Medicine; Visit Provider Internal Medicine
DX: E05.90 Thyrotoxicosis, unspecified without thyrotoxic crisis or storm (principal); G93.41 Metabolic encephalopathy; G92.8 Other toxic encephalopathy; N17.9 Acute kidney failure, unspecified; N31.9 Neuromuscular dysfunction of bladder, unspecified; T50.915A Adverse effect of multiple unspecified drugs, medicaments and biological substances, initial encounter; Z96.0 Presence of urogenital implants; E86.1 Hypovolemia; F14.959 Cocaine use, unspecified with cocaine-induced psychotic disorder, unspecified; N39.0 Urinary tract infection, site not specified; F41.9 Anxiety disorder, unspecified; F32.A Depression, unspecified; I69.354 Hemiplegia and hemiparesis following cerebral infarction affecting left non-dominant side; Z20.822 Contact with and (suspected) exposure to COVID-19; Z99.3 Dependence on wheelchair; Z79.82 Long term (current) use of aspirin; Z79.899 Other long term (current) drug therapy
CPT/HCPCS: 0241U; 36415; 70450; 71045; 76536; 80048; 80076; 80307; 81001; 82140; 82550; 82803; 83605; 83735; 83880; 84439; 84443; 84445; 84480; 84484; 85025; 85027; 85610; 85730; 86376; 87040; 87086; 93005; 99285; J0696; J1630; J1644; J2060; J2359; J7120

== ENCOUNTER → 2024-07-20 18:35 | Outpatient (BNV) | payer MEDICAID, SELFPAY | PROVIDERS: Admitting Provider Internal Medicine; Emergency Provider Emergency Medicine; Visit Provider Internal Medicine | DX: N17.9 Acute kidney failure, unspecified (principal) | CPT/HCPCS: 99222; 99232; 99239 ==

== ENCOUNTER 2024-07-26 14:35 | Outpatient (AMB) | payer MEDICAID, SELFPAY ==
--- NOTE | 2024-07-26 14:41 | A.OFFVIS_ITS ---
Vital Signs 07/26/24 14:42 BP 98/70 Blood Pressure Location Rt brachial Position Sitting Pulse 82 Pulse Source Pulse Oximeter Intake Visit Reasons: Hyperthyroidism-lvm Intake Note: Patient present today for Hyperthyroidism office visit. 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 Allergies No Known Allergies Allergy (Verified 07/26/24 14:46) Medication List - Last Reconciled 07/26/24 by Oralia Hester MD acetaminophen ER 650 mg PO Q12H PRN albuterol sulfate 90 mcg/actuation 2 puffs inhalation Q4-6H PRN amlodipine (Norvasc) 5 mg DAILY aripiprazole 10 mg DAILY ascorbic acid (vitamin C) 1,000 mg PO DAILY 90 days aspirin (Adult Aspirin Regimen) 81 mg PO DAILY baclofen 10 mg PO TID PRN buspirone 10 mg BID cholecalciferol (vitamin D3) 50 mcg DAILY fluticasone propionate 50 mcg/actuation 2 sprays intranasal DAILY PRN gabapentin 300 mg TID hydroxyzine HCl 50 mg PO Q6H PRN methimazole 10 mg PO DAILY nystatin 1 appl topical DAILY propranolol 10 mg See Protocol PO TID venlafaxine ER 75 mg PO DAILY HPI Comments Details: 58-year-old female coming in today for initial evaluation hyperthyroidism. Otherwise medical history significant for hypertension, CVA with residual left- sided weakness, chronic indwelling Quinonez catheter, depression and anxiety. Hyperthyroidism was diagnosed 07/20/2024. Patient was hospitalized during this time due to acute metabolic encephalopathy and while she was also found to have a UTI, she was also noted to be in thyrotoxicosis with TSH suppressed, free T4 elevated at 2.10, total T3 elevated at 242. TPO antibody positive at 43. TSI levels pending. She was started on methimazole 10 mg daily. Also started on propranolol 10 mg 3 times daily. she has been taking it twice a day. Underwent thyroid ultrasound 07/20/2024 which did not show any nodules. Gland was homogeneous in appearance insulin no increased vascularity noted. No prior history of thyroid disease. Patient currently denies heat or cold intolerance, diarrhea or constipation, hair loss, palpitation, weight changes, mood changes, low energy, changes in appearance of eyes or vision changes, tremors, increased diaphoresis or dry skin. ?Always anxious. CVA 4 months ago. Patient denies any difficulty swallowing, pain on swallowing or voice changes or difficulty breathing. Patient denies any history of childhood neck radiation. Denies having ever used lithium, amiodarone or biotin supplements. Patient denies any family history of thyroid cancer or thyroid disease. Mother had thyroid disease not sure which one. 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 Pulmonary: No SOB GI:No abdominal pain, no nausea or vomiting, no anorexia, no blood in stool Physical exam General: sitting comfortably in no acute distress HEENT: normocephalic/atraumatic, EOM intact, moist oral mucosa, does have slight stare Neck: supple, symmetrical, no thyromegaly , no dorsocervical or supraclavicular fat pads Cardiac: normal heart sounds Pulm: normal breath sounds B/L, no added breath sounds Abd: not distended, no tenderness Extremities: no edema, no signs of myxedema PFSH Medical History Hemiparesis affecting left side as late effect of stroke Hypotonic bladder H/O urinary retention GERD (gastroesophageal reflux disease) Hyperlipidemia HTN (hypertension) PFO (patent foramen ovale) Patellofemoral arthrosis Knee derangement Surgical History History of surgery Social History Household Members: None Household Members Other:: 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 CLINICAL INFORMATION: Hyperthyroidism. COMPARISON: None available. TECHNIQUE: Linear transducer grayscale and color Doppler examination with attention to the region of the thyroid. Difficult to image left thyroid due to left sided decubitus position due to stroke. FINDINGS: SIZE: Measurements of the thyroid lobes and nodules are given in sagittal, anteroposterior and transverse dimensions respectively. Right Thyroid Lobe: 3.3 x 1.6 x 1.4 cm, volume 3.7 mL. Parenchyma: The gland echotexture is homogeneous. Thyroid vascularity is normal. Left Thyroid Lobe: Not visualized. Isthmus: 0.6 cm in maximum AP dimension. No focal thyroid nodule could not be visualized optimally. The visualized portion measures 0.9 cm in width. NODES: No lymphadenopathy is seen in the tissue surrounding the thyroid gland. US/US thyroid IMPRESSION: 1. Unable to visualize the left thyroid lobe due to patient's condition, left-sided distortion due to stroke and altered mental status. 2. The right thyroid lobe is within normal limits in size with no discrete focal thyroid nodule. Assessment & Plan Assessment & Plan (1) Hyperthyroidism: Code(s): E05.90 - Thyrotoxicosis, unspecified without thyrotoxic crisis or storm Category: Medical Plan: Patient with new diagnosis of hyperthyroidism since 07/20/2024 when she was admitted in the hospital with acute metabolic encephalopathy and was found to have a suppressed TSH, elevated free T4 of 2.14, and elevated total T3 of 242. TSI antibodies are pending. Most likely differential is Graves disease. Once we have the results of the antibody we can confirm this is Graves disease. She also had a thyroid ultrasound during her hospitalization which did not show any nodules, and other differentials usually include toxic nodular goiter, thyroiditis. She was started on methimazole 10 mg daily during that hospitalization plus propranolol 10 mg 3 times daily. She does not have any symptoms of hyperthyroidism and exam is pretty much unremarkable. She did have a stroke 4 months ago, and that could have been due to uncontrolled hyperthyroidism. She also did have cocaine use 3 days prior to this hospitalization, that can also precipitate thyrotoxicosis. Advised patient to stay away from cocaine. She did not have any recent contrast exposure. Denies any viral prodrome prior to presentation. Discussed with patient that about 30% of the patients with Graves disease have remission after 12-18 months of treatment with methimazole. More recent data has shown longer periods of treatment resulting in better remission rates as well. At this time we will plan to continue treatment with methimazole and continue adjusting the dose as needed. In the long run if she does not have remission, we also briefly discussed definitive therapy options of radioactive iodine ablation and total thyroidectomy and the need for requiring long-term levothyroxine therapy after those procedures. Plan: -continue methimazole 10 mg daily -follow up TSI levels -repeat TSH, free T4, total T3 thyrotropin receptor antibody levels -advised her continue taking propanolol 3 times daily however blood pressure was on the lower side today, she has a blood pressure monitor at home so I advised her if her blood pressure is continuously less than 100 systolic and 70 diastolic or her pulses less than 60, to change it to twice daily or if persistently these low numbers then consider holding it -follow up in 8 weeks The following were discussed as potential side effects of methimazole: - Serious skin rashes - nausea, vomiting, or severe hepatic injury - Agranulocytosis: a rare side effect of methimazole involves a severe decrease in the production of white blood cells. This condition is extremely serious, but affects only one out of every 200 to 500 people who take an antithyroid drug. Agranulocytosis more commonly occurs within the first three months of starting treatment with an antithyroid drug, but can occur at any time. If patient develops a fever (temperature above 100.5F), or other signs or symptoms of infection, she should stop taking the tapazole and immediately have a complete blood count (CBC) done. Serious and potentially life threatening infections, or even , can occur before agranulocytosis resolves. However, once the antithyroid drug is stopped, agranulocytosis usually resolves within a week. - Arthralgias, myalgias - Renal: Nephritis - Fever Patient will stop medication and call our office if these occur. Plan I spent 45 minutes in reviewing the record, seeing the patient and documenting in the medical record. Orders: Orders Triiodothyronine T3 Total 3 Weeks E05.90 - Thyrotoxicosis, unspecified without thyrotoxic crisis or storm Thyroid Stimulating Hormone 3 Weeks E05.90 - Thyrotoxicosis, unspecified without thyrotoxic crisis or storm Free T4 (Free Thyroxine) 3 Weeks E05.90 - Thyrotoxicosis, unspecified without thyrotoxic crisis or storm Thyrotropin Receptor Antibody 3 Weeks E05.90 - Thyrotoxicosis, unspecified without thyrotoxic crisis or storm Patient Instructions: Continue methimazole 10 mg once daily Continue propranolol 10 mg three times a day, if you notice your heart rate is less than 60 you can hold this medicine Do blood work in 3 weeks We will call you with results If you have fever, flu like symtoms, sore throat or rash, stop methimazole and call our office during office hours If you have fever, nausea, vomiting, or jaundice stop methimazole and call our o ffice during office hours Coding Level of Care Code New Pt Level 4 (81272) Diagnoses Hyperthyroidism E05.90 Time Spent (min) 45
[2024-07-26 14:42] VITALS: BP 98/70; PULSE 82
== END 2024-07-26 15:19 | disposition home or self-care (01) ==
PROVIDERS: PCP Family Medicine; Referring Provider Family Medicine; Visit Provider Student in an Organized Health Care Education/Training Program
DX: E05.90 Thyrotoxicosis, unspecified without thyrotoxic crisis or storm (principal)
CPT/HCPCS: 99204

== ENCOUNTER → 2024-07-26 14:35 | Outpatient (BNVA) | payer MEDICAID, SELFPAY | PROVIDERS: PCP Family Medicine; Visit Provider Student in an Organized Health Care Education/Training Program | DX: E05.90 Thyrotoxicosis, unspecified without thyrotoxic crisis or storm (principal) | CPT/HCPCS: 99202 ==

== ENCOUNTER 2024-08-14 10:36 | Emergency (ER) | payer MEDICAID, SELFPAY ==
--- NOTE | ~2024-08-14 | XR_ITS ---
EXAMINATION: XR CHEST CLINICAL INFORMATION: Fever COMPARISON: chest xray on 07/20/24 TECHNIQUE: 2 views of the chest were obtained. FINDINGS: The cardiac silhouette is normal. There is mild diffuse bronchial wall thickening. There are no areas of consolidation. There are no pleural effusions or pneumothoraces. The bones and soft tissues are unremarkable for the patient's age. XR/XR chest 2V IMPRESSION: Bronchial wall thickening may be infectious and/or inflammatory in etiology. Electronically signed by: Kitty Hanley MD 08/14/2024 12:53 PM EDT
[2024-08-14 11:00] VITALS: BP 96/44; PULSE 77; O2SAT 97
--- NOTE | 2024-08-14 11:00 | ED_ITS ---
HPI - General Adult General Chief complaint: General Medical Stated complaint: SOB,WARM TO TOUCH,HAS F/C,RECENT UTI Time Seen by Provider: 08/14/24 11:00 Source: patient and EMS Mode of arrival: EMS Limitations: no limitations History of Present Illness ED Provider: CECILY NGUYEN PA-C HPI narrative: 58 year old female with pmhx significant for CVA with left-sided deficits (mostly wheelchair-bound), history of neurogenic bladder with chronic Covarrubias, history of PFO, hypertension, HDL, GERD and recently diagnosed urinary tract infection at [facility] (07/20/24) presents to the ED today via EMS from home for evaluation of generalized weakness and fatigue x1 week. Per EMS, patient growing more lethargic en route to ED. On arrival, patient reports feeling generally unwell. Per EMS, patient endorsing shortness of breath however denies this on my assessment. No known sick contacts. 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 Was supposed to have her covarrubias catheter replaced by COMMUTATOR INSPECTOR 3 days ago however this did not happen. Denies chills, N/V, abdominal pain, flank pain. Related Data Home Medications ?Medication ?Instructions ?Recorded ?Confirmed fluticasone propionate 50 2 spray intranasal DAILY PRN 11/18/21 07/26/24 mcg/actuation nasal Allergy Symptoms spray,suspension aspirin 81 mg tablet,delayed 81 mg PO DAILY 12/07/23 07/26/24 release (Adult Aspirin Regimen) amlodipine 10 mg tablet (Norvasc) 5 mg DAILY 06/11/24 07/26/24 gabapentin 300 mg capsule 300 mg TID 06/11/24 07/26/24 acetaminophen 650 mg 650 mg PO Q12H PRN pain 07/20/24 07/26/24 tablet,extended release albuterol sulfate 90 mcg/actuation 2 puff inhalation Q4-6H PRN 07/20/24 07/26/24 aerosol inhaler Shortness Of Breath Or Wheezing aripiprazole 10 mg tablet 10 mg DAILY 07/20/24 07/26/24 baclofen 10 mg tablet 10 mg PO TID PRN muscle spasm 07/20/24 07/26/24 buspirone 10 mg tablet 10 mg BID 07/20/24 07/26/24 cholecalciferol (vitamin D3) 50 50 mcg DAILY 07/20/24 07/26/24 mcg (2,000 unit) capsule hydroxyzine HCl 50 mg tablet 50 mg PO Q6H PRN anxiety 07/20/24 07/26/24 venlafaxine 75 mg capsule,extended 75 mg PO DAILY 07/20/24 07/26/24 release 24 hr Previous Rx's ?Medication ?Instructions ?Recorded ascorbic acid (vitamin C) 1,000 mg 1,000 mg PO DAILY 90 days #90 tabs 12/07/23 tablet nystatin 100,000 unit/gram topical 1 appl topical DAILY #15 grams 06/30/24 cream methimazole 10 mg tablet 10 mg PO DAILY #30 tabs 07/23/24 propranolol 10 mg tablet 10 mg PO TID #270 tabs 07/23/24 cefuroxime axetil 500 mg tablet 500 mg PO BID #14 tabs 08/14/24 Allergies Allergy/AdvReac Type Severity Reaction Status Date / Time No Known Allergies Allergy Verified 08/14/24 11:36 Review of Systems 2 Review of Systems: Yes all other systems are reviewed and are negative FOR[facility]LY [facility] Past Medical History Attestation statement: The following information was validated with the patient. 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 Housing: Apartment Alcohol intake: current Alcohol intake frequency: a few times a month Alcohol type: beer Patient Tobacco Use Status: Never used Tobacco Substance Use Type: Marijuana Advance Directives: Yes Advance Directives on File: Yes Advance Directives Date on File: 10/27/22 Do you have a plan to hurt others: No Plan service: No Physical Exam ED Vital Signs: Vital Signs - 24 hr 08/14/24 11:34 08/14/24 14:39 08/14/24 15:09 Temperature 98.1 F 97.8 F 98.1 F Pulse Rate 75 83 80 Respiratory Rate 24 H 20 20 Blood Pressure 125/99 H 150/73 H 138/74 Pulse Oximetry 96 96 97 Oxygen Delivery Method Room Air Room Air Room Air BMI result Body Mass Index 31.7 vital signs stable General: Well appearing, in no acute distress. Skin: Warm, dry, intact. No rashes or lesions. Head: Normocephalic, atraumatic. EENT: Hearing is intact b/l. Conjunctiva clear. Pin point pupils. dry mucous membranes.? Neck: Supple without LAD? Cardiac: Chest wall symmetric. RRR Lungs: Normal respiratory effort without accessory muscle use. CTA bilaterally. Abdomen: Soft, non-tender, non-distended. No rebound tenderness or guarding. Positive BS x4. No CVAT. Back: No midline spinous or paraspinal tenderness. No step off deformity. Ext: Upper and lower extremities atraumatic, without tenderness, deformity, swelling or erythema. Full ROM throughout. Neuro: AOx3. Normal speech. Psych: Appropriate mood and affect. Responds appropriately to questions. Course Course Course Narrative: 1103 -- Patient with history of E coli UTI resistant to ampicillin, gentamicin, and bactrim. Resistant to levaquin, nitrofurantoin and ceftriaxone. Also have history of Klebsiella UTI (06/2024) resistant to ampicillin, sensitive to ceftriaxone. History of Proteus species resistant to nitrofurantoin, sensitive to ceftriaxone. > will give dose of IV Rocephin while awaiting further workup 1224 -- CBC without leukocytosis or left shift. No anemia. H&H stable. Chemistry without acute electrolyte abnormality requiring intervention. No ANISA. Random glucose 105. patient tested negative for covid, flu, rsv. cxr showing bronchial wall thickening, no focal consolidation or infiltrate. > urine tox positive for barbiturates, cocaine, and marijuana. likely the source of patient's lethargy this morning as she is now completely alert and oriented. Urine with large blood, positive nitrites, moderate amount of leukocyte esterase, over 20 RBCs, over 50 WBCs, 2+ urine bacteria. blood likely traumatic secondary to covarrubias cath change prior to obtaining UA vs cystitis. 1236 -- inflammatory markers elevated. lactic wnl at 1. Patient does not meet SIRs criteria and sepsis is not suspected at this time. Continues to be alert and oriented x3. awaiting thyroid levels to r/o toxicosis although less likely. 1448 -- TSH undetectable. Free T4 WNL. Thyroid toxicosis unlikely. Patient vitals are stable. slightly hypertensive to 150/73, no longer tachypneic. Plan to discharge patient home with antibiotics for urinary tract infection which she is agreeable with. Educated on ilicit substance use. Declining detox at this time. will provide patient with take home narcan. Patient has remained stable throughout ED visit today. Discussed worrisome signs and symptoms and when to return to the ED. All questions answered at this time. Patient is agreeable with disposition and stable for discharge. Medications Administered Discontinued Medications Generic Name Dose Route Start Last Admin Trade Name Freq PRN Reason Stop Dose Admin Ceftriaxone Sodium 1 gm/ 50 mls @ 100 mls/hr 08/14/24 11:03 08/14/24 14:58 Sodium Chloride IV 08/14/24 11:32 Infused ONCE ONE Infusion Sodium Chloride 1,000 mls @ 999 mls/hr 08/14/24 11:15 08/14/24 14:58 Ns IV 08/14/24 12:15 Infused .Q1H1M CHERI Infusion Naloxone HCl 8 mg 08/14/24 14:51 08/14/24 20:46 Naloxone Hcl Nasal Take Home 4 Mg [place] NOSTRILALT 08/14/24 14:52 Not Given ONCE ONE Olanzapine 2.5 mg 08/14/24 13:28 08/14/24 13:34 Olanzapine 2.5 Mg Tablet PO 08/14/24 13:29 2.5 mg ONCE ONE Administration Medical Decision Making Medical Decision Making MDM Narrative: 58 year old female with pmhx significant for CVA with left-sided deficits (mostly wheelchair-bound), history of neurogenic bladder with chronic Covarrubias, history of PFO, hypertension, HDL, GERD and recently diagnosed urinary tract infection at [facility] (07/20/24) presents to the ED today via EMS from home for evaluation of generalized weakness and fatigue x1 week. Vital signs notable for hypertension to 125/99 and tachypnia to 24. afebrile and not hypoxic. She is ill appearing, appears older than stated age. lungs clear. abd is soft, ND/NT, without rebound or guarding. no cvat b/l. covarrubias draining dark colored urine. covarrubias replaced by RN on arrival with complication. Differential diagnosis includes UA, pnuemonia, anemia, electrolyte abnormality, dehydration, substance abuse, polypharmacy, metabolic encephalopathy, thyroid toxicosis Plan for labs, ekg, cxr, UA, lactic, blood culture, re-evaluation. Differential Diagnosis Differential Diagnoses: The differential diagnosis associated with the presentation includes As above Admission/Observation not indicated. Lab Data MDM Lab Attestation statement: I reviewed the patient's lab results. As above 08/14/24 11:42 08/14/24 11:42 Labs: Lab Results 08/14/24 08/14/24 08/14/24 Range/Units 11:42 11:47 12:36 WBC 10.7 (4.8-10.8) X10*3/uL RBC 4.80 (4.20-5.50) X10*6/uL Hgb 13.6 (12.0-16.0) g/dl Hct 39.2 (37.0-47.0) % MCV 81.7 (80.0-98.0) fL MCH 28.3 (27.0-33.0) pg MCHC 34.7 (31.0-35.0) g/dl RDW 11.5 (11.0-16.0) % Plt Count 410 H D (160-400) X10*3/uL MPV 9.9 (9.4-12.3) fL Immature Gran % (Auto) 0.5 H (0.0-0.4) % Neut % (Auto) 77.6 H (45-73) % Lymph % (Auto) 14.3 L (20-40) % [place] % (Auto) 5.5 (2-11) % Eos % (Auto) 1.6 (0-4) % Baso % (Auto) 0.5 (0-2) % Lymph # (Auto) 1.5 (1.2-4.9) X10*3/uL [place] # (Auto) 0.6 (0.1-1.2) X10*3/uL Eos # (Auto) 0.2 (0.0-0.4) X10*3/uL Baso # (Auto) 0.1 (0.0-0.2) X10*3/uL Abs Immat Gran (auto) 0.05 H (0.00-0.03) X10*3/uL Absolute Neuts (auto) 8.3 (2.0-8.3) x10*3/uL Absolute Nucleated RBC 0.000 (0.0-0.012) X10*3/uL Nucleated RBC % (auto) 0.0 (0.0-0.2) /100WBC ESR 57 H (0-20) MM/HR Sodium 143 (135-145) mmol/L Potassium 4.0 D (3.3-5.1) mmol/L Chloride 107 (96-108) mmol/L Carbon Dioxide 24 (22-29) mmol/L Anion Gap 16 (12-20) BUN 23 H (9-16) mg/dL Creatinine 0.83 (0.5-1.4) mg/dL Estim Creat Clear Calc 74.5 Estimated GFR > 60 Random Glucose 105 (60-115) mg/dL Lactic Acid 1.0 (0.5-2.0) mmol/L Calcium 10.4 H D (8.4-10.2) mg/dL Magnesium 1.8 (1.6-2.6) mg/dL Total Bilirubin 0.4 (0.0-1.0) mg/dL AST 12 (5-31) U/L ALT 12 (0-31) U/L Alkaline Phosphatase 74 (39-117) U/L Troponin I High Sens 5.6 (<3.5-17.0) ng/L C-Reactive Protein 3.55 H (< or = 0.50) mg/dL B-Natriuretic Peptide 338 H (<100) pg/mL Total Protein 7.5 (6.5-8.0) g/dL Albumin 4.0 (3.5-5.0) g/dL Lipase 18 (8-78) U/L TSH < 0.01 L (0.32-4.0) uIU/mL Free T4 1.46 (0.71-1.85) ng/dL Urine Color Yellow Urine Appearance Cloudy Urine pH 6.0 (5.0-9.0) Ur Specific [place] 1.025 (1.005-1.025) Urine Protein 30 (1+) H (Neg-Trace) mg/dL Urine Glucose (UA) Negative (Negative) mg/dL Urine Ketones 15 (Negative) mg/dL Urine Blood Large (3+) H (Negative) Urine Nitrite Positive H (Negative) Ur Leukocyte Esterase Moderate (2+) H (Negative) Urine RBC >20 H (0-2) /HPF Urine WBC >50 H (0-5) /HPF Ur Squamous Epith Cells 0-2 (0-2) /HPF Urine Bacteria 2+ (None Seen) Hyaline Casts 0-2 (0-2) /LPF Urine Opiates Screen Not Detected (Not Detect) Ur Buprenorphine Scrn Not Detected (Not Detect) ng/mL Ur Oxycodone Screen Not Detected (Not Detect) ng/mL Urine Methadone Screen Not Detected (Not Detect) ng/mL Urine Fentanyl Screen Not Detected (Not Detect) Ur Barbiturates Screen POSITIVE H (Not Detect) Ur Phencyclidine Scrn Not Detected (Not Detect) Ur Amphetamines Screen Not Detected (Not Detect) U Benzodiazepines Scrn Not Detected (Not Detect) Urine Cocaine Screen POSITIVE H (Not Detect) U Marijuana (THC) Screen POSITIVE H (Not Detect) Ethyl Alcohol < 10 mg/dL Influenza Type A (PCR) NEGATIVE (Negative) Influenza Type B (PCR) NEGATIVE (Negative) RSV RNA Qual (PCR) NEGATIVE (Negative) SARS-CoV-2 RNA (RT-PCR) NEGATIVE (Negative) Independent Interpretation I performed an independent interpretation of an: Plain X-Ray Interpretation: CXR without focal consolidation or infiltrate, agree with radiologist's interpretation. EKG Radiology Impression Discussion of test interpretation with radiology: I have reviewed the radiologist's reading. Radiologist Impression: EXAMINATION: XR CHEST CLINICAL INFORMATION: Fever COMPARISON: chest xray on 07/20/24 TECHNIQUE: 2 views of the chest were obtained. FINDINGS: The cardiac silhouette is normal. There is mild diffuse bronchial wall thickening. There are no areas of consolidation. There are no pleural effusions or pneumothoraces. The bones and soft tissues are unremarkable for the patient's age. XR/XR chest 2V IMPRESSION: Bronchial wall thickening may be infectious and/or inflammatory in etiology. Electronically signed by: Kitty Hanley MD 08/14/2024 12:53 PM EDT Independent Historian Clinical information obtained from an independent historian. History obtained from or confirmed by: EMS External Record Review External record reviewed: Inpatient record, Office record, Outpatient record, Prior outpatient labs, Prior outpatient radiology, Primary care record and Outside ED record Prescription Management I considered prescription management with: Antibiotic (ceftin) Chronic Conditions Patient?s care impacted by: Other (hyperthyroidism, recurrent UTIs) Social Determinants Patient?s care significantly limited by Social Determinants of Health including: Alcoholism and drug addiction in family and Other Social Determinant of Health Critical Care Time Critical Care Time Critical Care Time: No Discharge Plan Discharge Clinical Impression: Urinary tract infection, Polysubstance use disorder Patient Disposition: Home, Self-Care Instructions: Polysubstance Abuse (ED), Urinary Tract Infection in Older Adults (ED) Additional Instructions: Your blood work today is reassuring. Your urine today was positive for infection. Cefuroxime is an antibiotic that has been sent to your pharmacy. Take this as prescribed and do not miss any doses. You must complete the entire course of antibiotics. If you do not, there is a risk of the infection coming back or worsening. Follow up with your primary care provider as needed. If you develop a fever or new/ worsening symptoms call 911 or come back to the ER for further evaluation. [facility] [address] [place] [id number] Prescriptions: New cefuroxime axetil 500 mg tablet 500 mg PO BID Qty: 14 0RF No Action nystatin 100,000 unit/gram cream 1 appl topical DAILY Qty: 15 0RF venlafaxine 75 mg capsule,extended release 24hr 75 mg PO DAILY hydroxyzine HCl 50 mg tablet 50 mg PO Q6H PRN (Reason: anxiety) acetaminophen 650 mg tablet extended release 650 mg PO Q12H PRN (Reason: pain) buspirone 10 mg tablet 10 mg BID cholecalciferol (vitamin D3) 50 mcg (2,000 unit) capsule 50 mcg DAILY aripiprazole 10 mg tablet 10 mg DAILY baclofen 10 mg tablet 10 mg PO TID PRN (Reason: muscle spasm) albuterol sulfate 90 mcg/actuation Hfa Aerosol Inhaler 2 puff INHALATION Q4-6H PRN (Reason: Shortness Of Breath Or Wheezing) propranolol 10 mg Tablet 10 mg PO TID Qty: 270 0RF Protocol: Hold for SBP/HR < HOLD for SBP < : 90 HOLD for HR < : 60 methimazole 10 mg Tablet 10 mg PO DAILY Qty: 30 0RF gabapentin 300 mg capsule 300 mg TID amlodipine [Norvasc] 10 mg tablet 5 mg DAILY fluticasone propionate 50 mcg/actuation spray,suspension 2 spray intranasal DAILY PRN (Reason: Allergy Symptoms) aspirin [Adult Aspirin Regimen] 81 mg tablet,delayed release (DR/EC) 81 mg PO DAILY ascorbic acid (vitamin C) 1,000 mg tablet 1,000 mg PO DAILY 90 Days Qty: 90 1RF Referrals: [facility] [Provider Group] Aliza Paul DO [Primary Care Provider] - Interventions: ED Discharge Assessment Last Done: 08/14/24 15:09 Print Language: Estonian
--- NOTE | 2024-08-14 11:24 | ECG_ITS ---
Test Reason : WEAKNESS Blood Pressure : / mmHG Vent. Rate : 081 BPM Atrial Rate : 081 BPM P-R Int : 148 ms QRS Dur : 072 ms QT Int : 396 ms P-R-T Axes : 076 -33 023 degrees QTc Int : 460 ms Normal sinus rhythm Left axis deviation Minimal voltage criteria for LVH, may be normal variant ( R in aVL ) Septal infarct (cited on or before 09-NOV-2022) Abnormal ECG When compared with ECG of 20-JUL-2024 14:22, Nonspecific T wave abnormality has replaced inverted T waves in Inferior leads Referred By: Lynette Wall Electronically Signed By:TREV DHILLON
[2024-08-14 11:34] VITALS: BP 125/99; PULSE 75; RESP 24; TEMP 36.7; O2SAT 96; BMI 31.7
--- NOTE | 2024-08-14 11:38 | PC.NURSE ---
600ml tea color urine in covarrubias bag upon arrival to ER. covarrubias replaced.
--- NOTE | 2024-08-14 11:39 | PC.NURSE ---
16fr covarrubias changed upon ER arrival. urine sample obtained from newly placed covarrubias. No complications with urinary cath placement.
[2024-08-14 11:58] LABS: MANUAL DIFF FLAG NO
[2024-08-14 12:03] LABS: Appearance Urine Cloudy; Color Urine Yellow; Glucose Urine UA Negative (Negative); Leukocyte Esterase Urine Moderate (2+) (Negative); Nitrite Urine Positive (Negative); Specific Gravity - Urine 1.025 (1.005-1.025); UMIC TRIGGER UACC YES; Urine Blood Large (3+) (Negative); Urine Ketones 15 mg/dL (Negative); Urine Protein 30 (1+) mg/dL (Neg-Trace)
[2024-08-14 12:03] LABS: Basophils Absolute Auto 0.1 X10*3/uL (0.0-0.2); Basophils Percent Auto 0.5 % (0-2); Eosinophils Absolute Auto 0.2 X10*3/uL (0.0-0.4); Eosinophils Percent Auto 1.6 % (0-4); Hematocrit 39.2 % (37.0-47.0); Hemoglobin 13.6 g/dl (12.0-16.0); Imm Gran Abs Auto 0.05 X10*3/uL (0.00-0.03); Imm Gran Pct Auto 0.5 % (0.0-0.4); Lymphocytes Absolute Auto 1.5 X10*3/uL (1.2-4.9); Lymphocytes Percent Auto 14.3 % (20-40); Mean Corpuscular HGB Conc 34.7 g/dl (31.0-35.0); Mean Corpuscular Hemoglobin 28.3 pg (27.0-33.0); Mean Corpuscular Volume 81.7 fL (80.0-98.0); Mean Platelet Volume 9.9 fL (9.4-12.3); Monocytes Absolute Auto 0.6 X10*3/uL (0.1-1.2); Monocytes Percent Auto 5.5 % (2-11); Neutrophils Absolute Auto 8.3 x10*3/uL (2.0-8.3); Neutrophils Percent Auto 77.6 % (45-73); Platelet Count 410 X10*3/uL (160-400); Red Cell Distribution Width 11.5 % (11.0-16.0); White Blood Count 10.7 X10*3/uL (4.8-10.8)
[2024-08-14 12:12] LABS: Amphetamine Screen Urine Not Detected (Not Detect); Barbiturates, Urine POSITIVE (Not Detect); Benzodiazepines Screen Urine Not Detected (Not Detect); Buprenorphine Scr Not Detected (Not Detect); Cannabinoid Screen Urine POSITIVE (Not Detect); Cocaine Screen Urine POSITIVE (Not Detect); Fentanyl, urine Not Detected (Not Detect); Methadone Screen, Urine Not Detected (Not Detect); Opiate Screen Urine Not Detected (Not Detect); Oxycodone Screen Urine Not Detected (Not Detect); Phencyclidine Screen Urine Not Detected (Not Detect)
[2024-08-14 12:16] LABS: Alanine Aminotransferase 12 U/L (0-31); Alkaline Phosphatase 74 U/L (39-117); Anion Gap 16 (12-20); Aspartate Amino Transferase 12 U/L (5-31); Bilirubin Total 0.4 mg/dL (0.0-1.0); Blood Urea Nitrogen 23 mg/dL (9-16); C Reactive Protein 3.55 mg/dL (< or = 0.50); Calcium 10.4 mg/dL (8.4-10.2); Carbon Dioxide 24 mmol/L (22-29); Chloride 107 mmol/L (96-108); Creatinine Clr Calc Pharmacy 74.5; Estimated Glomerular Filt Rate > 60; Glucose Random 105 mg/dL (60-115); Lipase 18 U/L (8-78); Magnesium 1.8 mg/dL (1.6-2.6); Sodium 143 mmol/L (135-145); Total Protein 7.5 g/dL (6.5-8.0)
[2024-08-14 12:19] LABS: Bacteria Urine 2+ (None Seen); Hyaline Casts Urine 0-2 /LPF (0-2); RBC Urine >20 /HPF (0-2); Squamous Epithelial Cell Urine 0-2 /HPF (0-2); UACC Culture Trigger YES; WBC Urine >50 /HPF (0-5)
[2024-08-14 12:33] LABS: Influenza A PCR NEGATIVE (Negative); Influenza B PCR NEGATIVE (Negative); Resp Syncy Virus RNA Qual PCR NEGATIVE (Negative); SARS COV2 PCR INHOUSE NEGATIVE (Negative)
[2024-08-14 12:45] LABS: Erythrocyte Sedimentation Rate 57 MM/HR (0-20)
[2024-08-14] MEDS: cefTRIAXone sodium 1 GM in 0.9 % Sodium Chloride 50 ML IV (12:52)
[2024-08-14] MEDS: 0.9 % Sodium Chloride 1,000 ML 999 ML IV (12:52)
[2024-08-14 12:59] LABS: Troponin-I High Sensitivity 5.6 ng/L (<3.5-17.0)
[2024-08-14 13:02] LABS: B Type Natriuretic Peptide 338 pg/mL (<100)
[2024-08-14 13:11] LABS: Ethanol < 10 mg/dL
[2024-08-14 13:26] LABS: TSH reflex Free T4 < 0.01 uIU/mL (0.32-4.0)
[2024-08-14] MEDS: OLANZapine 2.5 MG TABLET PO (13:34)
[2024-08-14 14:20] LABS: Free T4 (Free Thyroxine) 1.46 ng/dL (0.71-1.85)
[2024-08-14 14:39] VITALS: BP 150/73; PULSE 83; RESP 20; TEMP 36.6; O2SAT 96
--- NOTE | 2024-08-14 15:07 | PC.NURSE ---
attempt to call patient HCP/son Sherif. and s/o Vipul. No answer from either to notify of them of patient discharge and return home.
[2024-08-14 15:09] VITALS: BP 138/74; PULSE 80; RESP 20; TEMP 36.7; O2SAT 97
--- NOTE | 2024-08-14 18:11 | PC.NURSE ---
spoke with Vipul on phone per patient permission and discussed discharge instrucitons including narcan and abx rx to [facility]. he states he will make sure he goes to get rx and has her take it and understand the discharge instructions and follow up.
== END 2024-08-14 21:30 | disposition home or self-care (01) ==
PROVIDERS: Physician Assistant Medical; Emergency Provider Emergency Medicine; PCP Family Medicine
DX: T83.511A Infection and inflammatory reaction due to indwelling urethral catheter, initial encounter (principal); N39.0 Urinary tract infection, site not specified; B96.20 Unspecified Escherichia coli [E. coli] as the cause of diseases classified elsewhere; Y73.8 Miscellaneous gastroenterology and urology devices associated with adverse incidents, not elsewhere classified; Y92.009 Unspecified place in unspecified non-institutional (private) residence as the place of occurrence of the external cause; F19.10 Other psychoactive substance abuse, uncomplicated; R53.1 Weakness; R06.02 Shortness of breath; Z03.818 Encounter for observation for suspected exposure to other biological agents ruled out; I10 Essential (primary) hypertension; E78.5 Hyperlipidemia, unspecified; E05.90 Thyrotoxicosis, unspecified without thyrotoxic crisis or storm; Z86.73 Personal history of transient ischemic attack (TIA), and cerebral infarction without residual deficits; Z79.899 Other long term (current) drug therapy; Z79.82 Long term (current) use of aspirin
CPT/HCPCS: 0241U; 36415; 71046; 80053; 80307; 81001; 81003; 83605; 83690; 83735; 83880; 84439; 84443; 84484; 85025; 85652; 86140; 87040; 87086; 87088; 87186; 93005; 96361; 96374; 99284; J0696

== ENCOUNTER 2024-09-07 12:57 | Outpatient (REF) | payer MEDICAID, SELFPAY ==
[2024-09-07 17:06] LABS: Anion Gap 14 (12-20); Blood Urea Nitrogen 23 mg/dL (9-16); Calcium 10.3 mg/dL (8.4-10.2); Carbon Dioxide 28 mmol/L (22-29); Chloride 105 mmol/L (96-108); Estimated Glomerular Filt Rate > 60; Glucose Random 83 mg/dL (60-115); Potassium 3.5 mmol/L (3.3-5.1); Sodium 143 mmol/L (135-145)
== END 2024-09-07 12:58 | disposition home or self-care (01) ==
LOC: HO.HHCL 12:57
PROVIDERS: Visit Provider Internal Medicine
DX: R82.90 Unspecified abnormal findings in urine (principal); I10 Essential (primary) hypertension
CPT/HCPCS: 36415; 80048; 87086; 87088; 87186

== ENCOUNTER 2024-10-08 17:10 | Emergency (ER) | payer MEDICAID, SELFPAY ==
[2024-10-08 17:24] VITALS: BP 142/90; PULSE 86
[2024-10-08 17:29] VITALS: BP 143/78; PULSE 90; RESP 20; TEMP 36.9; O2SAT 97; BMI 32.9
--- NOTE | 2024-10-08 18:00 | ED_ITS ---
HPI - Female Genitourinary General Chief complaint: Urogenital-Female Stated complaint: CATHETER ISSUES Time Seen by Provider: 10/08/24 18:00 Source: patient Mode of arrival: EMS Limitations: no limitations History of Present Illness ED Provider: HPI Narrative: Patient with history of neurogenic bladder with chronic indwelling Quinonez catheter history of CVA with residual left hemiparesis hypotension depression anxiety had UTI 4 days ago on a was unable to get her medication as the pharmacy was closed comes here as having difficulty in emptying her bladder no fever no chills no vomiting Related Data Home Medications ?Medication ?Instructions ?Recorded ?Confirmed fluticasone propionate 50 2 spray intranasal DAILY PRN 11/18/21 07/26/24 mcg/actuation nasal Allergy Symptoms spray,suspension aspirin 81 mg tablet,delayed 81 mg PO DAILY 12/07/23 07/26/24 release (Adult Aspirin Regimen) amlodipine 10 mg tablet (Norvasc) 5 mg DAILY 06/11/24 07/26/24 gabapentin 300 mg capsule 300 mg TID 06/11/24 07/26/24 acetaminophen 650 mg 650 mg PO Q12H PRN pain 07/20/24 07/26/24 tablet,extended release albuterol sulfate 90 mcg/actuation 2 puff inhalation Q4-6H PRN 07/20/24 07/26/24 aerosol inhaler Shortness Of Breath Or Wheezing aripiprazole 10 mg tablet 10 mg DAILY 07/20/24 07/26/24 baclofen 10 mg tablet 10 mg PO TID PRN muscle spasm 07/20/24 07/26/24 buspirone 10 mg tablet 10 mg BID 07/20/24 07/26/24 cholecalciferol (vitamin D3) 50 50 mcg DAILY 07/20/24 07/26/24 mcg (2,000 unit) capsule hydroxyzine HCl 50 mg tablet 50 mg PO Q6H PRN anxiety 07/20/24 07/26/24 venlafaxine 75 mg capsule,extended 75 mg PO DAILY 07/20/24 07/26/24 release 24 hr Previous Rx's ?Medication ?Instructions ?Recorded ascorbic acid (vitamin C) 1,000 mg 1,000 mg PO DAILY 90 days #90 tabs 12/07/23 tablet nystatin 100,000 unit/gram topical 1 appl topical DAILY #15 grams 06/30/24 cream methimazole 10 mg tablet 10 mg PO DAILY #30 tabs 07/23/24 propranolol 10 mg tablet 10 mg PO TID #270 tabs 07/23/24 cefuroxime axetil 500 mg tablet 500 mg PO BID #14 tabs 08/14/24 Allergies Allergy/AdvReac Type Severity Reaction Status Date / Time No Known Allergies Allergy Verified 10/08/24 17:31 Review of Systems Review of Systems: Yes all other systems are reviewed and are negative [facility] Past Medical History Medical History Hyperthyroidism Hemiparesis affecting left side as late effect of stroke Hypotonic bladder H/O urinary retention GERD (gastroesophageal reflux disease) Hyperlipidemia HTN (hypertension) PFO (patent foramen ovale) Patellofemoral arthrosis Knee derangement Surgical History History of surgery Social History Social History Household Members: None 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 Housing: Apartment Alcohol intake: current Alcohol intake frequency: a few times a month Alcohol type: beer Patient Tobacco Use Status: Never used Tobacco Smoked in Last 30 Days: No Use of substances other than those prescribed or required for medical reasons: No Substance Use Type: Marijuana Advance Directives: Yes Advance Directives on File: Yes Advance Directives Date on File: 10/27/22 Patient : No service: No Physical Exam Vital Signs: Vital Signs: Last Vital Signs Temp 98.5 F 10/08/24 17:29 Pulse 90 10/08/24 17:29 Resp 20 10/08/24 17:29 BP 143/78 H 10/08/24 17:29 Pulse Ox 97 10/08/24 17:29 O2 Del Method Room Air 10/08/24 17:29 BMI result Body Mass Index 32.9 Appearance: Alert. Oriented X3. No acute distress. ENT: Pharynx normal. Oral Mucosa moist Neck: Normal inspection. Neck supple. CVS: Normal heart rate and rhythm. Pulses normal. Respiratory: No respiratory distress. Equal air entry bilateral, no wheezing/rales/rhonchi Abdomen: Soft and nontender. Bowel sounds are present, no mass palpable, no CVA tenderness Skin: Skin warm and dry. Normal skin color. Normal skin turgor. Extremities: No lower extremity edema. No calf tenderness Neuro: Oriented X 3. Residual left hemiparesis Medications Administered Discontinued Medications Generic Name Dose Route Start Last Admin Trade Name Freq PRN Reason Stop Dose Admin Cefuroxime Axetil 500 mg 10/08/24 18:04 10/08/24 18:46 Cefuroxime Axetil 500 Mg Tablet PO 10/08/24 18:05 500 mg ONCE ONE Administration Discharge Plan Discharge Clinical Impression: Urinary tract infection, Encounter for Quinonez catheter replacement Patient Disposition: Home, Self-Care Instructions: Urinary Tract Infection in Women (ED), Quinonez Catheter Placement and Care (ED) Additional Instructions: Continue to take antibiotic as prescribed Quinonez catheter care as advised Prescriptions: No Action nystatin 100,000 unit/gram cream 1 appl topical DAILY Qty: 15 0RF venlafaxine 75 mg capsule,extended release 24hr 75 mg PO DAILY hydroxyzine HCl 50 mg tablet 50 mg PO Q6H PRN (Reason: anxiety) acetaminophen 650 mg tablet extended release 650 mg PO Q12H PRN (Reason: pain) buspirone 10 mg tablet 10 mg BID cholecalciferol (vitamin D3) 50 mcg (2,000 unit) capsule 50 mcg DAILY aripiprazole 10 mg tablet 10 mg DAILY baclofen 10 mg tablet 10 mg PO TID PRN (Reason: muscle spasm) albuterol sulfate 90 mcg/actuation Hfa Aerosol Inhaler 2 puff INHALATION Q4-6H PRN (Reason: Shortness Of Breath Or Wheezing) propranolol 10 mg Tablet 10 mg PO TID Qty: 270 0RF Protocol: Hold for SBP/HR < HOLD for SBP < : 90 HOLD for HR < : 60 methimazole 10 mg Tablet 10 mg PO DAILY Qty: 30 0RF cefuroxime axetil 500 mg tablet 500 mg PO BID Qty: 14 0RF gabapentin 300 mg capsule 300 mg TID amlodipine [Norvasc] 10 mg tablet 5 mg DAILY fluticasone propionate 50 mcg/actuation spray,suspension 2 spray intranasal DAILY PRN (Reason: Allergy Symptoms) aspirin [Adult Aspirin Regimen] 81 mg tablet,delayed release (DR/EC) 81 mg PO DAILY ascorbic acid (vitamin C) 1,000 mg tablet 1,000 mg PO DAILY 90 Days Qty: 90 1RF Print Language: Mozambican
[2024-10-08] MEDS: cefuroxime axetiL 500 MG TABLET PO (18:46)
--- NOTE | 2024-10-08 19:02 | PC.NURSE ---
18fr covarrubias cath removed- new 16fr 10cc placed- patent- draingin straw colored urine- at this time bladder has emptied approx 400ml- initial bladder scan 126ml- notified
[2024-10-08 20:29] VITALS: BP 118/66; PULSE 74; RESP 15; TEMP 36.6; O2SAT 99
[2024-10-08 20:46] VITALS: BP 118/66; PULSE 74; RESP 15; TEMP 36.6; O2SAT 99
== END 2024-10-08 20:47 | disposition home or self-care (01) ==
PROVIDERS: Emergency Provider Internal Medicine; PCP Family Medicine
DX: N39.0 Urinary tract infection, site not specified (principal); N31.9 Neuromuscular dysfunction of bladder, unspecified; I95.9 Hypotension, unspecified; F33.1 Major depressive disorder, recurrent, moderate; Z79.899 Other long term (current) drug therapy
CPT/HCPCS: 51702; 51798; 99284; 99285

== ENCOUNTER 2024-10-31 19:29 | Emergency (ER) | payer MEDICAID, SELFPAY ==
[2024-10-31 19:43] VITALS: BP 170/105; PULSE 93; RESP 16; TEMP 37.2; O2SAT 96
[2024-10-31 19:49] VITALS: BP 148/90; BP 171/107; PULSE 94; PULSE 95; RESP 20; TEMP 36.9; O2SAT 95; O2SAT 96; BMI 31.9
[2024-10-31 20:00] VITALS: BP 148/115; PULSE 92; RESP 16; TEMP 36.6; O2SAT 97
[2024-10-31] MEDS: Morphine Sulfate Immed Release 15 MG TABLET PO (20:24)
--- NOTE | 2024-10-31 20:54 | ED_ITS ---
HPI - Female Genitourinary General Chief complaint: Urogenital-Female Stated complaint: BLOCKED CATH, ?UTI PER EMS Time Seen by Provider: 10/31/24 19:53 Source: patient, RN notes reviewed and old records reviewed Mode of arrival: EMS Limitations: no limitations History of Present Illness ED Provider: Ayanna VELASCO Narrative: 50-year-old female past medical history significant for hypothyroidism, cocaine use disorder, CVA with neurogenic bladder and chronic Quinonez presents for evaluation of lower abdominal pain. Patient reports that her Quinonez catheter has not been treating since yesterday. It was last changed 4 days ago She reports having had a UTI a few weeks ago which was treated well with antibiotics. She reports severe lower abdominal pain. Denies any fevers, chills Related Data Home Medications ?Medication ?Instructions ?Recorded ?Confirmed fluticasone propionate 50 2 spray intranasal DAILY PRN 11/18/21 07/26/24 mcg/actuation nasal Allergy Symptoms spray,suspension aspirin 81 mg tablet,delayed 81 mg PO DAILY 12/07/23 07/26/24 release (Adult Aspirin Regimen) amlodipine 10 mg tablet (Norvasc) 5 mg DAILY 06/11/24 07/26/24 gabapentin 300 mg capsule 300 mg TID 06/11/24 07/26/24 acetaminophen 650 mg 650 mg PO Q12H PRN pain 07/20/24 07/26/24 tablet,extended release albuterol sulfate 90 mcg/actuation 2 puff inhalation Q4-6H PRN 07/20/24 07/26/24 aerosol inhaler Shortness Of Breath Or Wheezing aripiprazole 10 mg tablet 10 mg DAILY 07/20/24 07/26/24 baclofen 10 mg tablet 10 mg PO TID PRN muscle spasm 07/20/24 07/26/24 buspirone 10 mg tablet 10 mg BID 07/20/24 07/26/24 cholecalciferol (vitamin D3) 50 50 mcg DAILY 07/20/24 07/26/24 mcg (2,000 unit) capsule hydroxyzine HCl 50 mg tablet 50 mg PO Q6H PRN anxiety 07/20/24 07/26/24 venlafaxine 75 mg capsule,extended 75 mg PO DAILY 07/20/24 07/26/24 release 24 hr Previous Rx's ?Medication ?Instructions ?Recorded ascorbic acid (vitamin C) 1,000 mg 1,000 mg PO DAILY 90 days #90 tabs 12/07/23 tablet nystatin 100,000 unit/gram topical 1 appl topical DAILY #15 grams 06/30/24 cream methimazole 10 mg tablet 10 mg PO DAILY #30 tabs 07/23/24 propranolol 10 mg tablet 10 mg PO TID #270 tabs 07/23/24 cefuroxime axetil 500 mg tablet 500 mg PO BID #14 tabs 08/14/24 cefuroxime axetil 500 mg tablet 500 mg PO Q12H #14 tabs 10/31/24 Allergies Allergy/AdvReac Type Severity Reaction Status Date / Time No Known Allergies Allergy Verified 10/31/24 19:52 Review of Systems Constitutional: Constitutional: Denies body ache(s), Denies chills and Denies fever(s) ENT: Denies vertigo and Denies dizziness Cardiovascular: Cardiovascular: Denies chest pain and Denies dyspnea Respiratory: Respiratory: Denies cough and Denies dyspnea Gastrointestinal: Gastrointestinal: Reports abdominal pain, Denies nausea and Denies vomiting Genitourinary: Genitourinary: Reports pelvic pain Musculoskeletal: Musculoskeletal: Denies back pain Integumentary/Breasts: Skin/Breast: Denies rash Neurologic: Denies vertigo and Denies dizziness PMFSH Past Medical History Medical History Hyperthyroidism Hemiparesis affecting left side as late effect of stroke Hypotonic bladder H/O urinary retention GERD (gastroesophageal reflux disease) Hyperlipidemia HTN (hypertension) PFO (patent foramen ovale) Patellofemoral arthrosis Knee derangement Surgical History History of surgery Social History Social History Household Members: None Household Members Other:: Patient has topstitcher zigzag Housing: Apartment Alcohol intake: current Alcohol intake frequency: a few times a month Alcohol type: beer Patient Tobacco Use Status: Never used Tobacco Substance Use Type: Marijuana Advance Directives: Yes Advance Directives on File: Yes Advance Directives Date on File: 10/27/22 service: No Physical Exam Vital Signs: Vital Signs: Last Vital Signs Temp 98.4 F 10/31/24 21:56 Pulse 65 10/31/24 21:56 Resp 16 10/31/24 21:56 BP 103/84 10/31/24 21:56 Pulse Ox 94 10/31/24 21:56 O2 Del Method Room Air 10/31/24 21:56 BMI result Body Mass Index 31.9 Const: General: healthy appearing, comfortable, no acute distress, alert and awake Nutritional Appearance: well nourished Orientation/consciousness: patient oriented x3 HEENT: Head: Yes normocephalic and Yes atraumatic Eyes: Eyelids: Yes eyelids normal Conjunctivae: conjunctivae normal Sclerae: sclerae normal Corneas: corneas normal Pupils: Equal, round and reactive pupils present EOM: EOMs intact bilaterally Neck: Neck: Yes full ROM Resp: Effort & Inspection: normal respiratory effort, able to speak in complete sentences and not labored GI: Inspection: No distended Palpation (GI): Soft to palpation, not firm, nontender, no guarding and not rigid Skin: General skin exam: elasticity normal Neuro: General: patient oriented x3 Cranial nerves: Yes Equal, round and reactive pupils present and Yes Bilaterally intact EOM present Cognition (Neuro): normal cognition Course Reevaluation(s) Reevaluation #1: Patient had a Quinonez catheter change with immediate drainage of 450 cc of cloudy, yellow urine with sediment. Time: 21:05 Medications Administered Discontinued Medications Generic Name Dose Route Start Last Admin Trade Name Babarq PRN Reason Stop Dose Admin Morphine Sulfate 15 mg 10/31/24 20:04 10/31/24 20:24 Morphine Sulfate Immed Release 15 Mg Tablet PO 10/31/24 20:05 15 mg ONCE ONE Administration Medical Decision Making Medical Decision Making [facility] Narrative: 59-year-old female presents for evaluation of lower abdominal pain and Quinonez catheter not draining. Her pain is most likely attributed to urinary retention as her catheter was not draining. We attempted to flush her Quinonez catheter as it was only change a few days ago but we are unable to get any drainage. We will change the catheter and sent for urinalysis. Basic labs will be ordered. Differential Diagnosis Differential Diagnoses: The differential diagnosis associated with the present ation includes Quinonez catheter malfunction UTI Urinary retention Neurogenic bladder Lab Data Labs: Lab Results 10/31/24 Range/Units 21:04 Urine Color Yellow Urine Appearance Turbid Urine pH 8.5 (5.0-9.0) Ur Specific [place] 1.020 (1.005-1.025) Urine Protein 100 (2+) H (Neg-Trace) mg/dL Urine Glucose (UA) Negative (Negative) mg/dL Urine Ketones Negative (Negative) mg/dL Urine Blood Moderate (2+) H (Negative) Urine Nitrite Negative (Negative) Ur Leukocyte Esterase Large (3+) H (Negative) Urine RBC >20 H (0-2) /HPF Urine WBC >50 H (0-5) /HPF Ur Squamous Epith Cells 0-2 (0-2) /HPF Urine Bacteria 4+ (None Seen) Hyaline Casts 0-2 (0-2) /LPF Discharge Plan Discharge Clinical Impression: Malfunction of Quinonez catheter, Urinary tract infection Patient Disposition: Home, Self-Care Instructions: Catheter-associated Urinary Tract Infection (ED) Additional Instructions: Your Quinonez catheter change today. You have a urinary tract infection Take the cefuroxime twice daily for the next 7 days Follow-up with your primary doctor, return for new or worsening symptoms You should also follow-up with your urologist Prescriptions: New cefuroxime axetil 500 mg tablet 500 mg PO Q12H Qty: 14 0RF No Action nystatin 100,000 unit/gram cream 1 appl topical DAILY Qty: 15 0RF venlafaxine 75 mg capsule,extended release 24hr 75 mg PO DAILY hydroxyzine HCl 50 mg tablet 50 mg PO Q6H PRN (Reason: anxiety) acetaminophen 650 mg tablet extended release 650 mg PO Q12H PRN (Reason: pain) buspirone 10 mg tablet 10 mg BID cholecalciferol (vitamin D3) 50 mcg (2,000 unit) capsule 50 mcg DAILY aripiprazole 10 mg tablet 10 mg DAILY baclofen 10 mg tablet 10 mg PO TID PRN (Reason: muscle spasm) albuterol sulfate 90 mcg/actuation Hfa Aerosol Inhaler 2 puff INHALATION Q4-6H PRN (Reason: Shortness Of Breath Or Wheezing) propranolol 10 mg Tablet 10 mg PO TID Qty: 270 0RF Protocol: Hold for SBP/HR < HOLD for SBP < : 90 HOLD for HR < : 60 methimazole 10 mg Tablet 10 mg PO DAILY Qty: 30 0RF cefuroxime axetil 500 mg tablet 500 mg PO BID Qty: 14 0RF gabapentin 300 mg capsule 300 mg TID amlodipine [Norvasc] 10 mg tablet 5 mg DAILY fluticasone propionate 50 mcg/actuation spray,suspension 2 spray intranasal DAILY PRN (Reason: Allergy Symptoms) aspirin [Adult Aspirin Regimen] 81 mg tablet,delayed release (DR/EC) 81 mg PO DAILY ascorbic acid (vitamin C) 1,000 mg tablet 1,000 mg PO DAILY 90 Days Qty: 90 1RF Print Language: Portuguese
[2024-10-31 21:00] VITALS: BP 103/84; PULSE 65; RESP 16; TEMP 36.9
[2024-10-31 21:11] LABS: Appearance Urine Turbid; Color Urine Yellow; Glucose Urine UA Negative (Negative); Leukocyte Esterase Urine Large (3+) (Negative); Nitrite Urine Negative (Negative); PH 8.5 (5.0-9.0); UMIC TRIGGER UACC YES; Urine Blood Moderate (2+) (Negative); Urine Ketones Negative (Negative); Urine Protein 100 (2+) mg/dL (Neg-Trace)
[2024-10-31 21:18] LABS: Bacteria Urine 4+ (None Seen); Hyaline Casts Urine 0-2 /LPF (0-2); RBC Urine >20 /HPF (0-2); Squamous Epithelial Cell Urine 0-2 /HPF (0-2); UACC Culture Trigger YES; WBC Urine >50 /HPF (0-5)
[2024-10-31 21:56] VITALS: BP 103/84; PULSE 65; RESP 16; TEMP 36.9; O2SAT 94
[2024-10-31] MEDS: cefuroxime axetiL 500 MG TABLET PO (22:26)
[2024-11-01 00:50] VITALS: BP 103/84; PULSE 65; RESP 16; TEMP 36.9; O2SAT 94
== END 2024-11-01 00:52 | disposition home or self-care (01) ==
PROVIDERS: Physician Assistant; Emergency Provider Emergency Medicine; PCP Family Medicine
DX: N39.0 Urinary tract infection, site not specified (principal); I10 Essential (primary) hypertension; T83.098A Other mechanical complication of other urinary catheter, initial encounter; Y73.8 Miscellaneous gastroenterology and urology devices associated with adverse incidents, not elsewhere classified; Y92.89 Other specified places as the place of occurrence of the external cause; Z79.899 Other long term (current) drug therapy
CPT/HCPCS: 51702; 51798; 81001; 87086; 87088; 87186; 99284

== ENCOUNTER 2024-11-19 00:26 | Emergency (ER) | payer MEDICAID, SELFPAY ==
--- NOTE | ~2024-11-19 | XR_ITS ---
CLINICAL HISTORY: diff breathing cp cough 1 view chest x-ray Comparison: Chest x-ray from 08/14/2024 Findings: Mild interstitial opacities as can be seen with edema and pneumonitis. No lobar consolidation at this time. Imaged mediastinum appears unchanged. No definite pneumothorax or pleural effusion in this portable image. Cervical spine hardware again noted. Degenerative changes of the imaged shoulders and AC joints. IMPRESSION: Mild opacities as can be seen with edema or pneumonitis. This document has been electronically signed by: Camden Barros MD on 11/19/2024 01:02:44
[2024-11-19 00:33] VITALS: BP 123/82; BP 144/92; PULSE 90; RESP 18; TEMP 36.7; O2SAT 100; O2SAT 95; BMI 33.9
--- NOTE | 2024-11-19 00:43 | ECG_ITS ---
Test Reason : SOB, WEAKNESS Blood Pressure : */* mmHG Vent. Rate : 78 BPM Atrial Rate : 78 BPM P-R Int : 164 ms QRS Dur : 86 ms QT Int : 414 ms P-R-T Axes : 35 -29 39 degrees QTcB Int : 471 ms Sinus rhythm with Premature atrial complexes Moderate voltage criteria for LVH, may be normal variant ( R in aVL , [place] product ) Nonspecific T wave abnormality Prolonged QT Abnormal ECG When compared with ECG of 14-Aug-2024 12:44, Premature atrial complexes are now Present Nonspecific T wave abnormality, worse in Lateral leads Referred By: Generic ED Physician Electronically Signed By: JOE MCDONALD
--- NOTE | 2024-11-19 01:15 | ED_ITS ---
HPI - General Adult General Chief complaint: General Medical Stated complaint: sob, stroke 6 months ago unable walk, ab pain Time Seen by Provider: 11/19/24 01:10 Source: patient and EMS Mode of arrival: EMS Limitations: no limitations History of Present Illness ED Provider: Dr. Sharmin Back HPI narrative: Patient comes to the emergency room complaining of difficulty breathing, wheezing. Patient denies history of COPD or asthma. Patient states that everyone at home has been sick with upper respiratory infections. Patient does not use O2 at home. Per EMS, they started her on 2 L nasal cannula, oxygen saturation 92% on 2 L. Related Data Home Medications ?Medication ?Instructions ?Recorded ?Confirmed fluticasone propionate 50 2 spray intranasal DAILY PRN 11/18/21 07/26/24 mcg/actuation nasal Allergy Symptoms spray,suspension aspirin 81 mg tablet,delayed 81 mg PO DAILY 12/07/23 07/26/24 release (Adult Aspirin Regimen) amlodipine 10 mg tablet (Norvasc) 5 mg DAILY 06/11/24 07/26/24 gabapentin 300 mg capsule 300 mg TID 06/11/24 07/26/24 acetaminophen 650 mg 650 mg PO Q12H PRN pain 07/20/24 07/26/24 tablet,extended release albuterol sulfate 90 mcg/actuation 2 puff inhalation Q4-6H PRN 07/20/24 07/26/24 aerosol inhaler Shortness Of Breath Or Wheezing aripiprazole 10 mg tablet 10 mg DAILY 07/20/24 07/26/24 baclofen 10 mg tablet 10 mg PO TID PRN muscle spasm 07/20/24 07/26/24 buspirone 10 mg tablet 10 mg BID 07/20/24 07/26/24 cholecalciferol (vitamin D3) 50 50 mcg DAILY 07/20/24 07/26/24 mcg (2,000 unit) capsule hydroxyzine HCl 50 mg tablet 50 mg PO Q6H PRN anxiety 07/20/24 07/26/24 venlafaxine 75 mg capsule,extended 75 mg PO DAILY 07/20/24 07/26/24 release 24 hr Previous Rx's ?Medication ?Instructions ?Recorded nystatin 100,000 unit/gram topical 1 appl topical DAILY #15 grams 06/30/24 cream methimazole 10 mg tablet 10 mg PO DAILY #30 tabs 07/23/24 propranolol 10 mg tablet 10 mg PO TID #270 tabs 07/23/24 cefuroxime axetil 500 mg tablet 500 mg PO BID #14 tabs 08/14/24 cefuroxime axetil 500 mg tablet 500 mg PO Q12H #14 tabs 10/31/24 ascorbic acid (vitamin C) 1,000 mg 1,000 mg PO DAILY 90 days #90 tabs 11/16/24 tablet albuterol sulfate 90 mcg/actuation 2 puff inhalation Q4-6H PRN 11/19/24 aerosol inhaler shortness of breath or wheezing #8.5 grams cefuroxime axetil 250 mg tablet 250 mg PO BID #14 tabs 11/19/24 prednisone 50 mg tablet 50 mg PO DAILY #4 tabs 11/19/24 Allergies Allergy/AdvReac Type Severity Reaction Status Date / Time No Known Allergies Allergy Verified 11/19/24 00:43 [facility] Past Medical History Medical History Hyperthyroidism Hemiparesis affecting left side as late effect of stroke Hypotonic bladder H/O urinary retention GERD (gastroesophageal reflux disease) Hyperlipidemia HTN (hypertension) PFO (patent foramen ovale) Patellofemoral arthrosis Knee derangement Surgical History History of surgery Social History Social History Household Members: None Household Members Other:: 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 Housing: Apartment Alcohol intake: current Alcohol intake frequency: a few times a month Alcohol type: beer Patient Tobacco Use Status: Never used Tobacco Substance Use Type: Marijuana Advance Directives: No Advance Directives Information Provided: Yes Advance Directives Date on File: 10/27/22 service: No Physical Exam ED Vital Signs: Vital Signs - 24 hr 11/19/24 00:33 Temperature 98.1 F Pulse Rate 90 Respiratory Rate 18 Blood Pressure 123/82 Pulse Oximetry 100 Oxygen Delivery Method Nasal Cannula BMI result Body Mass Index 33.9 Medications Administered Discontinued Medications Generic Name Dose Route Start Last Admin Trade Name Freq PRN Reason Stop Dose Admin Methylprednisolone Sodium Succinate 125 mg 11/19/24 01:14 11/19/24 01:40 Methylprednisolone Sod Succ 125 Mg/2 Ml Vial IVPUSH 11/19/24 01:15 125 mg ONCE ONE Administration Medical Decision Making Medical Decision Making [facility] Narrative: My interpretation of labs: At baseline hematology, no significant chemistry abnormality, BNP 43. Patient's urinalysis positive for UTI, patient's serology positive for RSV. Patient is mostly wheelchair-bound, patient is able to take a few steps which that here in the ED which is her baseline, oxygen saturation between 91 and 95%. Patient was given the 1st dose of antibiotics for the UTI. 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 Patient has been of oxygen, saturating 95% on room air. Patient does not use oxygen at home Earlier today, patient was wheezing, likely due to bronchitis. Patient will be sent with a prescription for albuterol pump Differential Diagnosis Differential Diagnoses: The differential diagnosis associated with the presentation includes (RSV, UTI, pneumonia, viral illness) Admission/Observation Consideration of admission/observation: Escalation of care including admission/observation considered (Given patient's presentation and past medical history, observation was considered) Lab Data [facility] Lab Attestation statement: I reviewed the patient's lab results. 11/19/24 01:19 11/19/24 01:19 Labs: Lab Results 11/19/24 11/19/24 11/19/24 Range/Units 01:19 01:33 01:37 WBC 8.6 (4.8-10.8) X10*3/uL RBC 4.82 (4.20-5.50) X10*6/uL Hgb 12.9 (12.0-16.0) g/dl Hct 38.4 (37.0-47.0) % MCV 79.7 L (80.0-98.0) fL MCH 26.8 L (27.0-33.0) pg MCHC 33.6 (31.0-35.0) g/dl RDW 12.9 (11.0-16.0) % Plt Count 294 D (160-400) X10*3/uL MPV 9.6 (9.4-12.3) fL Immature Gran % (Auto) 0.2 (0.0-0.4) % Neut % (Auto) 66.5 (45-73) % Lymph % (Auto) 17.3 L (20-40) % [place] % (Auto) 12.9 H (2-11) % Eos % (Auto) 2.8 (0-4) % Baso % (Auto) 0.3 (0-2) % Lymph # (Auto) 1.5 (1.2-4.9) X10*3/uL [place] # (Auto) 1.1 (0.1-1.2) X10*3/uL Eos # (Auto) 0.2 (0.0-0.4) X10*3/uL Baso # (Auto) 0.0 (0.0-0.2) X10*3/uL Abs Immat Gran (auto) 0.02 (0.00-0.03) X10*3/uL Absolute Neuts (auto) 5.7 (2.0-8.3) x10*3/uL Absolute Nucleated RBC 0.000 (0.0-0.012) X10*3/uL Nucleated RBC % (auto) 0.0 (0.0-0.2) /100WBC VBG pH 7.43 (7.32-7.43) VBG pCO2 41 mmHg VBG pO2 73 mmHg VBG HCO3 27 H (22-26) mmol/L VBG O2 Saturation 96.0 % VBG Base Excess 3.2 mmol/L Sodium 140 (135-145) mmol/L Potassium 3.4 (3.3-5.1) mmol/L Chloride 106 (96-108) mmol/L Carbon Dioxide 26 (22-29) mmol/L Anion Gap 11 L (12-20) BUN 40 H (9-16) mg/dL Creatinine 0.98 (0.5-1.4) mg/dL Estim Creat Clear Calc 64.5 Estimated GFR 58 Random Glucose 120 H (60-115) mg/dL Calcium 9.3 D (8.4-10.2) mg/dL Total Bilirubin 0.2 (0.0-1.0) mg/dL AST 19 (5-31) U/L ALT 9 (0-31) U/L Alkaline Phosphatase 59 (39-117) U/L Troponin I High Sens 9.2 D (<3.5-17.0) ng/L B-Natriuretic Peptide 43 (<100) pg/mL Total Protein 6.7 (6.5-8.0) g/dL Albumin 3.4 L (3.5-5.0) g/dL Urine Color Yellow Urine Appearance Turbid Urine pH 8.5 (5.0-9.0) Ur Specific [place] 1.020 (1.005-1.025) Urine Protein 30 (1+) H (Neg-Trace) mg/dL Urine Glucose (UA) Negative (Negative) mg/dL Urine Ketones Negative (Negative) mg/dL Urine Blood Negative (Negative) Urine Nitrite Negative (Negative) Ur Leukocyte Esterase Large (3+) H (Negative) Urine RBC 0-2 (0-2) /HPF Urine WBC >50 H (0-5) /HPF Ur Squamous Epith Cells 6-10 (0-2) /HPF Calcium Oxalate Crystal Present Other Crystals Present Urine Bacteria 4+ (None Seen) Hyaline Casts >20 (0-2) /LPF Influenza Type A (PCR) NEGATIVE (Negative) Influenza Type B (PCR) NEGATIVE (Negative) RSV RNA Qual (PCR) POSITIVE A (Negative) SARS-CoV-2 RNA (RT-PCR) NEGATIVE (Negative) Independent Interpretation I performed an independent interpretation of an: Plain X-Ray Radiology Impression Discussion of test interpretation with radiology: I have reviewed the radiologist's reading. Radiologist Impression: Mild interstitial opacities as can be seen with edema and pneumonitis. No lobar consolidation at this time. Imaged mediastinum appears unchanged. No definite pneumothorax or pleural effusion in this portable image. Cervical spine hardware again noted. Degenerative changes of the imaged shoulders and AC joints. Critical Care Time Critical Care Time Critical Care Time: Yes Total Critical Care Time: 40 Attestation: I have personally provided critical care time. Time includes review of lab data, radiology results, discussion with consultants, and monitoring for potential decompensation. Intervention performed as documented. Discharge Plan Discharge Clinical Impression: RSV bronchiolitis, UTI (urinary tract infection), Wheezing Patient Disposition: Home, Self-Care Instructions: Urinary Incontinence (ED), Wheezing (ED) Additional Instructions: Please follow-up with your primary care physician tomorrow. If you have any worsening or new symptoms, please return to the emergency room or call 911 Prescriptions: New cefuroxime axetil 250 mg tablet 250 mg PO BID Qty: 14 0RF prednisone 50 mg tablet 50 mg PO DAILY Qty: 4 0RF albuterol sulfate 90 mcg/actuation HFA aerosol inhaler 2 puff inhalation Q4-6H PRN (Reason: shortness of breath or wheezing) Qty: 8.5 0RF No Action ascorbic acid (vitamin C) 1,000 mg tablet 1,000 mg PO DAILY 90 Days Qty: 90 1RF nystatin 100,000 unit/gram cream 1 appl topical DAILY Qty: 15 0RF venlafaxine 75 mg capsule,extended release 24hr 75 mg PO DAILY hydroxyzine HCl 50 mg tablet 50 mg PO Q6H PRN (Reason: anxiety) acetaminophen 650 mg tablet extended release 650 mg PO Q12H PRN (Reason: pain) buspirone 10 mg tablet 10 mg BID cholecalciferol (vitamin D3) 50 mcg (2,000 unit) capsule 50 mcg DAILY aripiprazole 10 mg tablet 10 mg DAILY baclofen 10 mg tablet 10 mg PO TID PRN (Reason: muscle spasm) albuterol sulfate 90 mcg/actuation Hfa Aerosol Inhaler 2 puff INHALATION Q4-6H PRN (Reason: Shortness Of Breath Or Wheezing) propranolol 10 mg Tablet 10 mg PO TID Qty: 270 0RF Protocol: Hold for SBP/HR < HOLD for SBP < : 90 HOLD for HR < : 60 methimazole 10 mg Tablet 10 mg PO DAILY Qty: 30 0RF cefuroxime axetil 500 mg tablet 500 mg PO BID Qty: 14 0RF cefuroxime axetil 500 mg tablet 500 mg PO Q12H Qty: 14 0RF gabapentin 300 mg capsule 300 mg TID amlodipine [Norvasc] 10 mg tablet 5 mg DAILY fluticasone propionate 50 mcg/actuation spray,suspension 2 spray intranasal DAILY PRN (Reason: Allergy Symptoms) aspirin [Adult Aspirin Regimen] 81 mg tablet,delayed release (DR/EC) 81 mg PO DAILY Print Language: Kiswahili
[2024-11-19 01:23] LABS: MANUAL DIFF FLAG NO
[2024-11-19 01:24] LABS: Basophils Percent Auto 0.3 % (0-2); Eosinophils Absolute Auto 0.2 X10*3/uL (0.0-0.4); Eosinophils Percent Auto 2.8 % (0-4); Hematocrit 38.4 % (37.0-47.0); Hemoglobin 12.9 g/dl (12.0-16.0); Imm Gran Abs Auto 0.02 X10*3/uL (0.00-0.03); Imm Gran Pct Auto 0.2 % (0.0-0.4); Lymphocytes Absolute Auto 1.5 X10*3/uL (1.2-4.9); Lymphocytes Percent Auto 17.3 % (20-40); Mean Corpuscular HGB Conc 33.6 g/dl (31.0-35.0); Mean Corpuscular Hemoglobin 26.8 pg (27.0-33.0); Mean Corpuscular Volume 79.7 fL (80.0-98.0); Mean Platelet Volume 9.6 fL (9.4-12.3); Monocytes Absolute Auto 1.1 X10*3/uL (0.1-1.2); Monocytes Percent Auto 12.9 % (2-11); Neutrophils Absolute Auto 5.7 x10*3/uL (2.0-8.3); Neutrophils Percent Auto 66.5 % (45-73); Platelet Count 294 X10*3/uL (160-400); Red Blood Count 4.82 X10*6/uL (4.20-5.50); Red Cell Distribution Width 12.9 % (11.0-16.0); White Blood Count 8.6 X10*3/uL (4.8-10.8)
[2024-11-19 01:27] LABS: Appearance Urine Turbid; Color Urine Yellow; Glucose Urine UA Negative (Negative); Leukocyte Esterase Urine Large (3+) (Negative); Nitrite Urine Negative (Negative); PH 8.5 (5.0-9.0); UMIC TRIGGER UACC YES; Urine Blood Negative (Negative); Urine Ketones Negative (Negative); Urine Protein 30 (1+) mg/dL (Neg-Trace)
[2024-11-19 01:40] LABS: Bacteria Urine 4+ (None Seen); Calcium Oxalate Crystals Urine Present; Hyaline Casts Urine >20 /LPF (0-2); Other Crystals Urine Present; RBC Urine 0-2 /HPF (0-2); UACC Culture Trigger YES; WBC Urine >50 /HPF (0-5)
[2024-11-19] MEDS: methylPREDNISolone Sod Succ 125 MG/2 ML VIAL IVPUSH (01:40)
[2024-11-19 01:42] LABS: VBG Base Excess 3.2 mmol/L; VBG HCO3 27 mmol/L (22-26); VBG pCO2 41 mmHg; VBG pH 7.43 (7.32-7.43); VBG pO2 73 mmHg
[2024-11-19 01:43] LABS: Venous Blood Gas Refer to POC result
[2024-11-19 01:44] LABS: Troponin-I High Sensitivity 9.2 ng/L (<3.5-17.0)
[2024-11-19 01:45] LABS: Alanine Aminotransferase 9 U/L (0-31); Albumin Level 3.4 g/dL (3.5-5.0); Anion Gap 11 (12-20); Aspartate Amino Transferase 19 U/L (5-31); Bilirubin Total 0.2 mg/dL (0.0-1.0); Blood Urea Nitrogen 40 mg/dL (9-16); Calcium 9.3 mg/dL (8.4-10.2); Carbon Dioxide 26 mmol/L (22-29); Chloride 106 mmol/L (96-108); Creatinine Clr Calc Pharmacy 64.5; Estimated Glomerular Filt Rate 58; Glucose Random 120 mg/dL (60-115); Potassium 3.4 mmol/L (3.3-5.1); Sodium 140 mmol/L (135-145); Total Protein 6.7 g/dL (6.5-8.0)
[2024-11-19 02:09] LABS: Influenza A PCR NEGATIVE (Negative); Influenza B PCR NEGATIVE (Negative); Resp Syncy Virus RNA Qual PCR POSITIVE (Negative); SARS COV2 PCR INHOUSE NEGATIVE (Negative)
[2024-11-19 02:16] LABS: Alkaline Phosphatase 59 U/L (39-117)
--- NOTE | 2024-11-19 02:30 | PC.NURSE ---
pt moved from hallway bed to ed bed 20 placed on cardiac and spo2 monitors
[2024-11-19 02:31] LABS: B Type Natriuretic Peptide 43 pg/mL (<100)
[2024-11-19 03:22] VITALS: BP 117/83; PULSE 80; RESP 20; TEMP 36.8; O2SAT 95
--- NOTE | 2024-11-19 03:25 | MHC.EDTECH ---
Pt was assisted in a stand and pivot to a wheelchair at bedside as this is baseline. PT O2 was taken off for a few minutes, PT O2 was 93%-95% during stand and pivot. PT stayed standing for about 2 minutes, O2 stayed 93%-95%. PT was assisted back onto bed and again did not drop below 93%. PT stated she was a bit tired but wanted to sit back down and was coughing and O2 dropped to 91% during coughing fit. We stood up and down two times and O2 stayed as stated above.
[2024-11-19] MEDS: cefuroxime axetiL 250 MG TABLET PO (03:48)
--- NOTE | 2024-11-19 03:53 | PC.NURSE ---
pt medicated according to nanette rt called for breathing treatment prior to discharge credit charge authorizer aware
[2024-11-19 03:59] VITALS: PULSE 77; RESP 16; O2SAT 95
--- NOTE | 2024-11-19 04:35 | PC.NURSE ---
pt completed breathing treatment ems arrivied for transport back dr mccallum to bedside to listen to lung sounds prior to discharge home per md pt safe for discharge iv removed at discharge pt verbalized understanding of discharge plan
[2024-11-19 04:37] VITALS: BP 117/83; PULSE 80; RESP 20; TEMP 36.8; O2SAT 95
== END 2024-11-19 05:00 | disposition home or self-care (01) ==
PROVIDERS: Emergency Provider Emergency Medicine
DX: J21.0 Acute bronchiolitis due to respiratory syncytial virus (principal); R10.2 Pelvic and perineal pain; R06.02 Shortness of breath; R26.2 Difficulty in walking, not elsewhere classified; R94.31 Abnormal electrocardiogram [ECG] [EKG]; Z79.899 Other long term (current) drug therapy; Z03.818 Encounter for observation for suspected exposure to other biological agents ruled out
CPT/HCPCS: 0241U; 36415; 71045; 80053; 81001; 82803; 83880; 84484; 85025; 87086; 87088; 87186; 93005; 94640; 96374; 99284; 99285; J2919

== ENCOUNTER → 2024-11-19 00:43 | Outpatient (BNV) | payer MEDICAID, SELFPAY | PROVIDERS: Emergency Provider Emergency Medicine; Visit Provider Internal Medicine | DX: R94.31 Abnormal electrocardiogram [ECG] [EKG] (principal) | CPT/HCPCS: 93010 ==

== ENCOUNTER → 2024-11-19 00:44 | Outpatient (BNV) | payer MEDICAID, SELFPAY | PROVIDERS: Emergency Provider Emergency Medicine; Visit Provider Radiology Neuroradiology | DX: R06.00 Dyspnea, unspecified (principal); R05.9 Cough, unspecified; R07.9 Chest pain, unspecified | CPT/HCPCS: 71045 ==

== ENCOUNTER 2024-11-23 11:32 | Inpatient (IN) | payer MEDICAID, SELFPAY ==
[2024-11-23] VITALS (7 sets, daily range): BP systolic 126–172; BP diastolic 69–101; PULSE 80–92; RESP 16–27; TEMP 36.4–36.9; O2SAT 93–95; BMI 34.4
--- NOTE | ~2024-11-23 | XR_ITS ---
EXAMINATION: XR CHEST CLINICAL INFORMATION: sob COMPARISON: 11/19/2024, 08/14/2024. TECHNIQUE: AP portable view of the chest was obtained. FINDINGS: The cardiac, hilar, and mediastinal contours are normal. There are low lung volumes with mild bronchovascular crowding bilaterally. Within these confines, the lungs are clear. No pneumothorax or effusion. There has been prior anterior cervical fusion. There are spinal degenerative changes. No acute bony or soft tissue abnormality. XR/XR chest 1V IMPRESSION: Low lung volumes with bronchovascular crowding bilaterally. Within these confines, no active disease. Electronically signed by: Demetrio Valverde MD 11/23/2024 12:25 PM [facility]
--- NOTE | 2024-11-23 11:43 | ECG_ITS ---
Test Reason : sob Blood Pressure : */* mmHG Vent. Rate : 87 BPM Atrial Rate : 87 BPM P-R Int : 132 ms QRS Dur : 84 ms QT Int : 380 ms P-R-T Axes : 7 -25 41 degrees QTcB Int : 457 ms Normal sinus rhythm Left ventricular hypertrophy with repolarization abnormality ( R in aVL , [place] product ) Cannot rule out Septal infarct , age undetermined Abnormal ECG When compared with ECG of 19-Nov-2024 01:02, Premature atrial complexes are no longer Present Nonspecific T wave abnormality no longer evident in Lateral leads Referred By: Reina Garzon Electronically Signed By: Prasanna Schmidt
--- NOTE | 2024-11-23 11:56 | ED_ITS ---
HPI - SOB/Dyspnea General Chief Complaint: Dyspnea Stated Complaint: Diff breathing, Albuterol given Time Seen by Provider: 11/23/24 11:40 Source: patient, EMS, RN notes reviewed and old records reviewed Mode of arrival: EMS Limitations: no limitations History of Present Illness ED Provider: Vidhya Garzon PA-C HPI Narrative: 59 yo female with history of CVA with residual right sided weakness, HTN, depression/anxiety, neurogenic bladder w/ chronic Quinonez, migraines, UTI, and recent RSV diagnosis on 11/19 who presents to the ER from home via EMS for evaluation of worsening SOB and difficulty breathing. She was seen here on 11/19, found to have RSV and was discharged with prescriptions for prednisone, cefuroxime for possible UTI and albuterol inhaler. She states she completed the steroids and has been using the albuterol with no improvement in her breathing. She has a neb machine but has no meds for it and no tubing. She is coughing but not bringing up phlegm. She denies fevers but has had chills. No N/V/D or abdominal pain. No chest pain. She arrives to the ER tachypenic and wheezing. MD elicited complaint: shortness of breath and cough Onset (ago): day(s) Context: recent illness Timing: progressively worsening Severity: moderate Exacerbating factors: nothing Relieving factors: oxygen, bronchodilators and upright position Associated symptoms: cough, wheezing and chest congestion Treatment prior to arrival: oxygen and bronchodilator Related Data Home oxygen amount: none Home Medications ?Medication ?Instructions ?Recorded ?Confirmed fluticasone propionate 50 2 spray intranasal DAILY PRN 11/18/21 07/26/24 mcg/actuation nasal Allergy Symptoms spray,suspension aspirin 81 mg tablet,delayed 81 mg PO DAILY 12/07/23 07/26/24 release (Adult Aspirin Regimen) amlodipine 10 mg tablet (Norvasc) 5 mg DAILY 06/11/24 07/26/24 gabapentin 300 mg capsule 300 mg TID 06/11/24 07/26/24 acetaminophen 650 mg 650 mg PO Q12H PRN pain 07/20/24 07/26/24 tablet,extended release albuterol sulfate 90 mcg/actuation 2 puff inhalation Q4-6H PRN 07/20/24 07/26/24 aerosol inhaler Shortness Of Breath Or Wheezing aripiprazole 10 mg tablet 10 mg DAILY 07/20/24 07/26/24 baclofen 10 mg tablet 10 mg PO TID PRN muscle spasm 07/20/24 07/26/24 buspirone 10 mg tablet 10 mg BID 07/20/24 07/26/24 cholecalciferol (vitamin D3) 50 50 mcg DAILY 07/20/24 07/26/24 mcg (2,000 unit) capsule hydroxyzine HCl 50 mg tablet 50 mg PO Q6H PRN anxiety 07/20/24 07/26/24 venlafaxine 75 mg capsule,extended 75 mg PO DAILY 07/20/24 07/26/24 release 24 hr Previous Rx's ?Medication ?Instructions ?Recorded nystatin 100,000 unit/gram topical 1 appl topical DAILY #15 grams 06/30/24 cream methimazole 10 mg tablet 10 mg PO DAILY #30 tabs 07/23/24 propranolol 10 mg tablet 10 mg PO TID #270 tabs 07/23/24 cefuroxime axetil 500 mg tablet 500 mg PO BID #14 tabs 08/14/24 cefuroxime axetil 500 mg tablet 500 mg PO Q12H #14 tabs 10/31/24 ascorbic acid (vitamin C) 1,000 mg 1,000 mg PO DAILY 90 days #90 tabs 11/16/24 tablet albuterol sulfate 90 mcg/actuation 2 puff inhalation Q4-6H PRN 11/19/24 aerosol inhaler shortness of breath or wheezing #8.5 grams cefuroxime axetil 250 mg tablet 250 mg PO BID #14 tabs 11/19/24 prednisone 50 mg tablet 50 mg PO DAILY #4 tabs 11/19/24 Allergies Allergy/AdvReac Type Severity Reaction Status Date / Time No Known Allergies Allergy Verified 11/23/24 12:06 Review of Systems 2 Review of Systems: Yes all other systems are reviewed and are negative PMFSH Past Medical History Medical History Hyperthyroidism Hemiparesis affecting left side as late effect of stroke Hypotonic bladder H/O urinary retention GERD (gastroesophageal reflux disease) Hyperlipidemia HTN (hypertension) PFO (patent foramen ovale) Patellofemoral arthrosis Knee derangement Surgical History History of surgery Social History Social History Household Members: None 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 Housing: Apartment Alcohol intake: current Alcohol intake frequency: does not drink Alcohol type: beer Patient Tobacco Use Status: Never used Tobacco Smoked in Last 30 Days: No Substance Use Type: Marijuana Advance Directives: Yes Advance Directives on File: Yes Advance Directives Date on File: 10/27/22 Patient : No service: No Physical Exam 2 Vital Signs: Vital Signs: Last Vital Signs Temp 98.2 F 11/23/24 15:19 Pulse 92 11/23/24 15:19 Resp 16 11/23/24 15:19 BP 172/101 H 11/23/24 15:19 Pulse Ox 94 11/23/24 15:19 O2 Del Method Room Air 11/23/24 15:19 BMI result Body Mass Index 34.4 Appearance: Alert. Oriented X3. Moderate acute respiratory distress. Head: normocephalic, atraumatic. Eyes: Pupils equal, round and reactive to light. ENT: Pharynx normal. No tonsillar swelling or exudate. Neck: Normal inspection. Neck supple. CVS: Normal heart rate and rhythm. Pulses normal. Respiratory: Moderate respiratory distress. Breath sounds coarse with diffuse wheezing, no rhonchi. RR mid 20s w/ increased WOB Abdomen: Soft and nontender. +BS x4 Skin: Skin warm and dry. Normal skin color. Normal skin turgor. No rashes. Extremities: No lower extremity edema. No joint swelling. Neuro/psych: Oriented X 3. right sided weakness, CN II-XII intact. mild dysarthria Medications Administered Discontinued Medications Generic Name Dose Route Start Last Admin Trade Name Freq PRN Reason Stop Dose Admin Albuterol/Ipratropium 3 ml 11/23/24 14:23 11/23/24 14:38 Albuterol/Iprat 2.5/0.5mg 3 Ml Ampul.Neb INHALE 11/23/24 14:24 3 ml ONCE ONE Administration Magnesium Sulfate 2 gm in 50 mls @ 150 mls/hr 11/23/24 11:46 11/23/24 12:22 Magnesium Sulfate/H2o IV 11/23/24 12:05 Infused ONCE ONE Infusion Methylprednisolone Sodium Succinate 40 mg 11/23/24 11:46 11/23/24 12:00 Methylprednisolone Sod Succ 40 Mg/Ml Vial IVPUSH 11/23/24 11:47 40 mg ONCE ONE Administration Medical Decision Making Medical Decision Making [facility] Narrative: 59 yo female with multiple medical problems including history of CVA with residual right sided weakness, HTN, depression/anxiety, neurogenic bladder w/ chronic Quinonez, migraines, UTI, and recent RSV diagnosis on 11/19 who presents to the ER from home via EMS for evaluation of worsening SOB and difficulty breathing. In respiratory distress on arrival, coarse and wheezing on exam. ED bronch protocol ordered along with IV mag and IV solumedrol. upon re-evaluation patient had improvement in WOB but she remained wheezing and coarse. a repeat duoneb was given. labs showing leukocyosis which may be due to her recent steroid use. BNP 280 from 43 on 11/19. does not appear volume overloaded on exam. there is some bronchovascular crowding on her CXR but no over edema. will hold off on lasix for now, not hypoxic. given patient's persistent symptoms will plan for admission. patient agreeable. Differential Diagnosis Differential Diagnoses: The differential diagnosis associated with the presentation includes RSV, PNA, COPD/asthma exacerbation, CHF exacerbation Admission/Observation Consideration of admission/observation: Escalation of care including admission/observation considered Consult Healthcare Provider Management of the patient was discussed with: Hospitalist Lab Data [facility] Lab Attestation statement: I reviewed the patient's lab results. leukocytosis, elevated BNP 11/23/24 12:07 11/23/24 12:07 Labs: Lab Results 11/23/24 11/23/24 11/23/24 Range/Units 12:07 12:11 12:47 WBC 15.8 H (4.8-10.8) X10*3/uL RBC 4.75 (4.20-5.50) X10*6/uL Hgb 12.9 (12.0-16.0) g/dl Hct 38.2 (37.0-47.0) % MCV 80.4 (80.0-98.0) fL MCH 27.2 (27.0-33.0) pg MCHC 33.8 (31.0-35.0) g/dl RDW 12.1 (11.0-16.0) % Plt Count 384 D (160-400) X10*3/uL MPV 9.8 (9.4-12.3) fL Immature Gran % (Auto) 0.5 H (0.0-0.4) % Neut % (Auto) 74.6 H (45-73) % Lymph % (Auto) 17.8 L (20-40) % [place] % (Auto) 7.0 (2-11) % Eos % (Auto) 0.0 (0-4) % Baso % (Auto) 0.1 (0-2) % Lymph # (Auto) 2.8 (1.2-4.9) X10*3/uL [place] # (Auto) 1.1 (0.1-1.2) X10*3/uL Eos # (Auto) 0.0 (0.0-0.4) X10*3/uL Baso # (Auto) 0.0 (0.0-0.2) X10*3/uL Abs Immat Gran (auto) 0.08 H (0.00-0.03) X10*3/uL Absolute Neuts (auto) 11.8 H (2.0-8.3) x10*3/uL Absolute Nucleated RBC 0.000 (0.0-0.012) X10*3/uL Nucleated RBC % (auto) 0.0 (0.0-0.2) /100WBC VBG pH 7.55 H (7.32-7.43) VBG pCO2 31 mmHg VBG pO2 46 mmHg VBG HCO3 27 H (22-26) mmol/L VBG O2 Saturation 80.0 % VBG Base Excess 5.5 mmol/L Sodium 142 (135-145) mmol/L Potassium 3.8 (3.3-5.1) mmol/L Chloride 109 H (96-108) mmol/L Carbon Dioxide 26 (22-29) mmol/L Anion Gap 11 L (12-20) BUN 32 H (9-16) mg/dL Creatinine 0.76 (0.5-1.4) mg/dL Estim Creat Clear Calc 83.9 Estimated GFR > 60 Random Glucose 126 H (60-115) mg/dL Calcium 8.6 D (8.4-10.2) mg/dL Magnesium 1.6 (1.6-2.6) mg/dL Total Bilirubin 0.1 (0.0-1.0) mg/dL Direct Bilirubin < 0.2 (0.0-0.5) mg/dL AST 22 (5-31) U/L ALT 8 (0-31) U/L Alkaline Phosphatase 58 (39-117) U/L Troponin I High Sens 9.2 (<3.5-17.0) ng/L B-Natriuretic Peptide 280 H (<100) pg/mL Total Protein 6.7 (6.5-8.0) g/dL Albumin 3.3 L (3.5-5.0) g/dL Urine Color Yellow Urine Appearance Clear Urine pH 6.0 (5.0-9.0) Ur Specific [place] 1.025 (1.005-1.025) Urine Protein Trace (Neg-Trace) mg/dL Urine Glucose (UA) Negative (Negative) mg/dL Urine Ketones Negative (Negative) mg/dL Urine Blood Large (3+) H (Negative) Urine Nitrite Negative (Negative) Ur Leukocyte Esterase Small (1+) H (Negative) Urine RBC >20 H (0-2) /HPF Urine WBC 6-10 H (0-5) /HPF Ur Squamous Epith Cells 0-2 (0-2) /HPF Urine Bacteria None Seen (None Seen) Hyaline Casts 3-5 (0-2) /LPF Urine Opiates Screen (Not Detect) Ur Buprenorphine Scrn (Not Detect) ng/mL Ur Oxycodone Screen (Not Detect) ng/mL Urine Methadone Screen (Not Detect) ng/mL Urine Fentanyl Screen (Not Detect) Ur Barbiturates Screen (Not Detect) Ur Phencyclidine Scrn (Not Detect) Ur Amphetamines Screen (Not Detect) U Benzodiazepines Scrn (Not Detect) Urine Cocaine Screen (Not Detect) U Marijuana (THC) Screen (Not Detect) 11/23/24 Range/Units 12:48 WBC (4.8-10.8) X10*3/uL RBC (4.20-5.50) X10*6/uL Hgb (12.0-16.0) g/dl Hct (37.0-47.0) % MCV (80.0-98.0) fL MCH (27.0-33.0) pg MCHC (31.0-35.0) g/dl RDW (11.0-16.0) % Plt Count (160-400) X10*3/uL MPV (9.4-12.3) fL Immature Gran % (Auto) (0.0-0.4) % Neut % (Auto) (45-73) % Lymph % (Auto) (20-40) % [place] % (Auto) (2-11) % Eos % (Auto) (0-4) % Baso % (Auto) (0-2) % Lymph # (Auto) (1.2-4.9) X10*3/uL [place] # (Auto) (0.1-1.2) X10*3/uL Eos # (Auto) (0.0-0.4) X10*3/uL Baso # (Auto) (0.0-0.2) X10*3/uL Abs Immat Gran (auto) (0.00-0.03) X10*3/uL Absolute Neuts (auto) (2.0-8.3) x10*3/uL Absolute Nucleated RBC (0.0-0.012) X10*3/uL Nucleated RBC % (auto) (0.0-0.2) /100WBC VBG pH (7.32-7.43) VBG pCO2 mmHg VBG pO2 mmHg VBG HCO3 (22-26) mmol/L VBG O2 Saturation % VBG Base Excess mmol/L Sodium (135-145) mmol/L Potassium (3.3-5.1) mmol/L Chloride (96-108) mmol/L Carbon Dioxide (22-29) mmol/L Anion Gap (12-20) BUN (9-16) mg/dL Creatinine (0.5-1.4) mg/dL Estim Creat Clear Calc Estimated GFR Random Glucose (60-115) mg/dL Calcium (8.4-10.2) mg/dL Magnesium (1.6-2.6) mg/dL Total Bilirubin (0.0-1.0) mg/dL Direct Bilirubin (0.0-0.5) mg/dL AST (5-31) U/L ALT (0-31) U/L Alkaline Phosphatase (39-117) U/L Troponin I High Sens (<3.5-17.0) ng/L B-Natriuretic Peptide (<100) pg/mL Total Protein (6.5-8.0) g/dL Albumin (3.5-5.0) g/dL Urine Color Urine Appearance Urine pH (5.0-9.0) Ur Specific [place] (1.005-1.025) Urine Protein (Neg-Trace) mg/dL Urine Glucose (UA) (Negative) mg/dL Urine Ketones (Negative) mg/dL Urine Blood (Negative) Urine Nitrite (Negative) Ur Leukocyte Esterase (Negative) Urine RBC (0-2) /HPF Urine WBC (0-5) /HPF Ur Squamous Epith Cells (0-2) /HPF Urine Bacteria (None Seen) Hyaline Casts (0-2) /LPF Urine Opiates Screen Not Detected (Not Detect) Ur Buprenorphine Scrn Not Detected (Not Detect) ng/mL Ur Oxycodone Screen Not Detected (Not Detect) ng/mL Urine Methadone Screen Not Detected (Not Detect) ng/mL Urine Fentanyl Screen Not Detected (Not Detect) Ur Barbiturates Screen Not Detected (Not Detect) Ur Phencyclidine Scrn Not Detected (Not Detect) Ur Amphetamines Screen Not Detected (Not Detect) U Benzodiazepines Scrn Not Detected (Not Detect) Urine Cocaine Screen POSITIVE H (Not Detect) U Marijuana (THC) Screen POSITIVE H (Not Detect) Independent Interpretation I performed an independent interpretation of an: EKG and Plain X-Ray Interpretation: EKG with normal sinus rhythm, HR 87 bpm, artifact present, LVH, no ST segment elevations CXR without focal infiltrate or effusion Radiology Impression Discussion of test interpretation with radiology: I have reviewed the radiologist's reading. Independent Historian Clinical information obtained from an independent historian. History obtained from or confirmed by: EMS External Record Review External record reviewed: Inpatient record, Outpatient record, Prior outpatient labs and Prior outpatient radiology Prescription Management I considered prescription management with: Antiviral, Antibiotic and Other (bronchodilator) Chronic Conditions Patient?s care impacted by: Other (CVA) Social Determinants Patient?s care significantly limited by Social Determinants of Health including: Problems related to primary support group Critical Care Time Critical Care Time Critical Care Time: Yes Total Critical Care Time: 42 Attestation: I have personally provided critical care time exclusive of time spent on separately billable procedures. Time includes review of lab data, radiology results, discussion with consultants, and monitoring for potential decompensation. Intervention performed as documented. Discharge Plan Discharge Clinical Impression: Respiratory syncytial virus (RSV) Qualifiers: RSV infection type: acute bronchiolitis Qualified Code(s): J21.0 - Acute bronchiolitis due to respiratory syncytial virus Patient Disposition: Admitted As Inpatient Print Language: Macedonian
[2024-11-23] MEDS: methylPREDNISolone Sod Succ 40 MG/ML VIAL IVPUSH ×2 (12:00→23:21)
[2024-11-23] MEDS: Magnesium Sulfate/H2O 2 GM/50 ML PIGGYBACK IV (12:01)
[2024-11-23 12:12] LABS: MANUAL DIFF FLAG NO
[2024-11-23 12:13] LABS: Basophils Percent Auto 0.1 % (0-2); Hematocrit 38.2 % (37.0-47.0); Hemoglobin 12.9 g/dl (12.0-16.0); Imm Gran Abs Auto 0.08 X10*3/uL (0.00-0.03); Imm Gran Pct Auto 0.5 % (0.0-0.4); Lymphocytes Absolute Auto 2.8 X10*3/uL (1.2-4.9); Lymphocytes Percent Auto 17.8 % (20-40); Mean Corpuscular HGB Conc 33.8 g/dl (31.0-35.0); Mean Corpuscular Hemoglobin 27.2 pg (27.0-33.0); Mean Corpuscular Volume 80.4 fL (80.0-98.0); Mean Platelet Volume 9.8 fL (9.4-12.3); Monocytes Absolute Auto 1.1 X10*3/uL (0.1-1.2); Neutrophils Absolute Auto 11.8 x10*3/uL (2.0-8.3); Neutrophils Percent Auto 74.6 % (45-73); Platelet Count 384 X10*3/uL (160-400); Red Blood Count 4.75 X10*6/uL (4.20-5.50); Red Cell Distribution Width 12.1 % (11.0-16.0); White Blood Count 15.8 X10*3/uL (4.8-10.8)
[2024-11-23 12:17] LABS: VBG Base Excess 5.5 mmol/L; VBG HCO3 27 mmol/L (22-26); VBG pCO2 31 mmHg; VBG pH 7.55 (7.32-7.43); VBG pO2 46 mmHg
[2024-11-23 12:17] LABS: Venous Blood Gas Refer to POC result
[2024-11-23 12:31] LABS: Alanine Aminotransferase 8 U/L (0-31); Albumin Level 3.3 g/dL (3.5-5.0); Alkaline Phosphatase 58 U/L (39-117); Anion Gap 11 (12-20); Aspartate Amino Transferase 22 U/L (5-31); Bilirubin Direct < 0.2 mg/dL (0.0-0.5); Bilirubin Total 0.1 mg/dL (0.0-1.0); Blood Urea Nitrogen 32 mg/dL (9-16); Calcium 8.6 mg/dL (8.4-10.2); Carbon Dioxide 26 mmol/L (22-29); Chloride 109 mmol/L (96-108); Creatinine Clr Calc Pharmacy 83.9; Estimated Glomerular Filt Rate > 60; Glucose Random 126 mg/dL (60-115); Magnesium 1.6 mg/dL (1.6-2.6); Potassium 3.8 mmol/L (3.3-5.1); Sodium 142 mmol/L (135-145); Total Protein 6.7 g/dL (6.5-8.0)
[2024-11-23 12:38] LABS: Troponin-I High Sensitivity 9.2 ng/L (<3.5-17.0)
[2024-11-23 12:55] LABS: Appearance Urine Clear; Color Urine Yellow; Glucose Urine UA Negative (Negative); Leukocyte Esterase Urine Small (1+) (Negative); Nitrite Urine Negative (Negative); Specific Gravity - Urine 1.025 (1.005-1.025); UMIC TRIGGER UACC YES; Urine Blood Large (3+) (Negative); Urine Ketones Negative (Negative); Urine Protein Trace mg/dL (Neg-Trace)
[2024-11-23 12:58] LABS: Bacteria Urine None Seen (None Seen); RBC Urine >20 /HPF (0-2); Squamous Epithelial Cell Urine 0-2 /HPF (0-2); UACC Culture Trigger YES
[2024-11-23 13:07] LABS: Amphetamine Screen Urine Not Detected (Not Detect); Barbiturates, Urine Not Detected (Not Detect); Benzodiazepines Screen Urine Not Detected (Not Detect); Buprenorphine Scr Not Detected (Not Detect); Cannabinoid Screen Urine POSITIVE (Not Detect); Cocaine Screen Urine POSITIVE (Not Detect); Fentanyl, urine Not Detected (Not Detect); Methadone Screen, Urine Not Detected (Not Detect); Opiate Screen Urine Not Detected (Not Detect); Oxycodone Screen Urine Not Detected (Not Detect); Phencyclidine Screen Urine Not Detected (Not Detect)
[2024-11-23 13:15] LABS: B Type Natriuretic Peptide 280 pg/mL (<100)
[2024-11-23] MEDS: Albuterol/Iprat 2.5/0.5MG 3 ML AMPUL.NEB INHALE ×2 (14:38→19:57)
--- NOTE | 2024-11-23 15:46 | PM.IMHP ---
History of Present Illness Date of Service: 11/23/24 Attending physician on admission: Naveen Rodriguez Chief Complaint: SOB, wheezing Pt is a 59-year-old female with a PMH significant for?CVA on 01/26/2024 with residual left-sided hemiparesis, Graves disease, asthma, HTN, neurogenic bladder with chronic indwelling Quinonez, migraines, depression, and anxiety who presents to the ED with?continued SOB, difficulty breathing, and wheezing. Pt was seen and evaluated for similar symptoms 4 days prior on 11/19/2024 and diagnosed with RSV. pt was sent home with prescription for prednisone 50 mg p.o. daily x4 doses and albuterol inhaler, as well as empiric cefuroxime for question of UTI. Pt reports completed prednisone course and has been using albuterol inhaler to little effect. States has a nebulizer at home but is unable to use it as she has no medications or tubing for it. Cough occasionally productive of whitish sputum. Denies fever or chills. Chronic back pain at baseline. No nausea, vomiting, abdominal pain. Denies chest pain/pressure, palpitations. In the ED pt was was tachypneic up to 27, tachycardic up to 92, and hypertensive up to 172/101, satting at 95% on RA. Labs were significant for leukocytosis 15.8 and BNP elevated at 280. Stable H&H. No significant electrolyte abnormalities. Renal function baseline. Hepatic function WNL. Initial troponin 9.2. VBG pH 7.55 with pCO2 31 and bicarb 27. Urine culture from 11/19/2024 grew Proteus mirabilis susceptible to ceftriaxone. CXR showed no active disease, but showed low lung volumes with bronchovascular crowding. EKG demonstrated normal sinus rhythm without significant evidence of ST elevations or depressions. Pt was treated with Mag sulfate, DuoNebs, and Solu-Medrol. Pt will be admitted to the hospital for treatment and further evaluation of acute asthma exacerbation in the setting of RSV infection that has failed outpatient therapy. 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: Apartment Alcohol intake: current Alcohol intake frequency: does not drink Alcohol type: beer Patient Tobacco Use Status: Never used Tobacco Smoked in Last 30 Days: No Substance Use Type: Marijuana Advance Directives: Yes Advance Directives on File: Yes Advance Directives Date on File: 10/27/22 Patient : No service: No Meds Allergies Allergy/AdvReac Type Severity Reaction Status Date / Time No Known Allergies Allergy Verified 11/23/24 12:06 Home Medications ?Medication ?Instructions ?Recorded ?Confirmed ?Last Taken ?Type fluticasone propionate 50 2 spray intranasal DAILY PRN 11/18/21 07/26/24 Unknown History mcg/actuation nasal Allergy Symptoms spray,suspension aspirin 81 mg tablet,delayed 81 mg PO DAILY 12/07/23 07/26/24 Unknown History release (Adult Aspirin Regimen) amlodipine 10 mg tablet (Norvasc) 5 mg DAILY 06/11/24 07/26/24 Unknown History gabapentin 300 mg capsule 300 mg TID 06/11/24 07/26/24 Unknown History acetaminophen 650 mg 650 mg PO Q12H PRN pain 07/20/24 07/26/24 Unknown History tablet,extended release albuterol sulfate 90 mcg/actuation 2 puff inhalation Q4-6H PRN 07/20/24 07/26/24 Unknown History aerosol inhaler Shortness Of Breath Or Wheezing aripiprazole 10 mg tablet 10 mg DAILY 07/20/24 07/26/24 Unknown History baclofen 10 mg tablet 10 mg PO TID PRN muscle spasm 07/20/24 07/26/24 Unknown History buspirone 10 mg tablet 10 mg BID 07/20/24 07/26/24 Unknown History cholecalciferol (vitamin D3) 50 50 mcg DAILY 07/20/24 07/26/24 Unknown History mcg (2,000 unit) capsule hydroxyzine HCl 50 mg tablet 50 mg PO Q6H PRN anxiety 07/20/24 07/26/24 Unknown History venlafaxine 75 mg capsule,extended 75 mg PO DAILY 07/20/24 07/26/24 Unknown History release 24 hr lisinopril 10 mg tablet 10 mg PO DAILY 11/23/24 11/23/24 History Physical Exam Vital Signs and Narrative: Vital Signs: Last Vital Signs Temp 98.2 F 11/23/24 15:19 Pulse 92 11/23/24 15:19 Resp 16 11/23/24 15:19 BP 172/101 H 11/23/24 15:19 Pulse Ox 94 11/23/24 15:19 O2 Del Method Room Air 11/23/24 15:19 BMI result Body Mass Index 34.4 General: AOx3, no acute distress Resp: Diffuse expiratory bilateral wheezing. Pt audibly wheezing during interview. Capable of speaking in complete sentences. CVS: S1, S2, RRR GI: +BS, NT, no distention Skin: Warm, dry Neuro: Cranial nerves II-XII grossly intact bilaterally. Motor grossly intact bilaterally. Extremities: No edema Psych: Appropriate affect Results Labs 11/23/24 12:07 11/23/24 12:07 Labs: Laboratory Results - last 24 hr 11/23/24 11/23/24 11/23/24 12:07 12:11 12:47 MCV 80.4 MCH 27.2 MCHC 33.8 RDW 12.1 Plt Count 384 D MPV 9.8 Immature Gran % (Auto) 0.5 H Neut % (Auto) 74.6 H Lymph % (Auto) 17.8 L [place] % (Auto) 7.0 Eos % (Auto) 0.0 Baso % (Auto) 0.1 Lymph # (Auto) 2.8 [place] # (Auto) 1.1 Eos # (Auto) 0.0 Baso # (Auto) 0.0 Abs Immat Gran (auto) 0.08 H Absolute Neuts (auto) 11.8 H Absolute Nucleated RBC 0.000 Nucleated RBC % (auto) 0.0 VBG pH 7.55 H VBG pCO2 31 VBG pO2 46 VBG HCO3 27 H VBG O2 Saturation 80.0 VBG Base Excess 5.5 Anion Gap 11 L Estim Creat Clear Calc 83.9 Estimated GFR > 60 Random Glucose 126 H Calcium 8.6 D Magnesium 1.6 Total Bilirubin 0.1 Direct Bilirubin < 0.2 AST 22 ALT 8 Alkaline Phosphatase 58 Troponin I High Sens 9.2 B-Natriuretic Peptide 280 H Total Protein 6.7 Albumin 3.3 L Urine Color Yellow Urine Appearance Clear Urine pH 6.0 Ur Specific [place] 1.025 Urine Protein Trace Urine Glucose (UA) Negative Urine Ketones Negative Urine Blood Large (3+) H Urine Nitrite Negative Ur Leukocyte Esterase Small (1+) H Urine RBC >20 H Urine WBC 6-10 H Ur Squamous Epith Cells 0-2 Urine Bacteria None Seen Hyaline Casts 3-5 Urine Opiates Screen Ur Buprenorphine Scrn Ur Oxycodone Screen Urine Methadone Screen Urine Fentanyl Screen Ur Barbiturates Screen Ur Phencyclidine Scrn Ur Amphetamines Screen U Benzodiazepines Scrn Urine Cocaine Screen U Marijuana (THC) Screen 11/23/24 12:48 MCV MCH MCHC RDW Plt Count MPV Immature Gran % (Auto) Neut % (Auto) Lymph % (Auto) [place] % (Auto) Eos % (Auto) Baso % (Auto) Lymph # (Auto) [place] # (Auto) Eos # (Auto) Baso # (Auto) Abs Immat Gran (auto) Absolute Neuts (auto) Absolute Nucleated RBC Nucleated RBC % (auto) VBG pH VBG pCO2 VBG pO2 VBG HCO3 VBG O2 Saturation VBG Base Excess Anion Gap Estim Creat Clear Calc Estimated GFR Random Glucose Calcium Magnesium Total Bilirubin Direct Bilirubin AST ALT Alkaline Phosphatase Troponin I High Sens B-Natriuretic Peptide Total Protein Albumin Urine Color Urine Appearance Urine pH Ur Specific [place] Urine Protein Urine Glucose (UA) Urine Ketones Urine Blood Urine Nitrite Ur Leukocyte Esterase Urine RBC Urine WBC Ur Squamous Epith Cells Urine Bacteria Hyaline Casts Urine Opiates Screen Not Detected Ur Buprenorphine Scrn Not Detected Ur Oxycodone Screen Not Detected Urine Methadone Screen Not Detected Urine Fentanyl Screen Not Detected Ur Barbiturates Screen Not Detected Ur Phencyclidine Scrn Not Detected Ur Amphetamines Screen Not Detected U Benzodiazepines Scrn Not Detected Urine Cocaine Screen POSITIVE H U Marijuana (THC) Screen POSITIVE H Imaging Radiologist's Impressions: Impressions Chest X-Ray 11/23/24 11:43 IMPRESSION: Low lung volumes with bronchovascular crowding bilaterally. Within these confines, no active disease. Electronically signed by: Demetrio Valverde MD 11/23/2024 12:25 PM [facility] Assessment and Plan (1) Respiratory syncytial virus (RSV): Qualifiers: RSV infection type: acute bronchiolitis Qualified Code(s): J21.0 - Acute bronchiolitis due to respiratory syncytial virus Status: Acute Plan Pt is a 59-year-old female with a PMH significant for?CVA on 01/26/2024 with residual left-sided hemiparesis, Graves disease, asthma, HTN, neurogenic bladder with chronic indwelling Quinonez, migraines, depression, and anxiety who presents to the ED with?continued SOB, difficulty breathing, and wheezing. Pt will be admitted to the hospital for treatment and further evaluation of acute asthma exacerbation in the setting of RSV infection that has failed outpatient therapy. Acute asthma exacerbation in the setting of RSV infection Diagnosed with RSV on 11/19/2023 Discharged from ED on prednisone and albuterol, has been compliant with medications with little effect Pt with continued SOB, wheezing, difficulty breathing, cough Pt received Mag sulfate, DuoNeb, and IV steroids in the ED without resolution of symptoms Will treat with Solu-Medrol, DuoNebs and guaifenesin Monitor respiratory status Leukocytosis Secondary to steroid use, not sepsis Pt with asthma exacerbation secondary to RSV No indication of bacterial infection requiring antibiotics UTI Pt diagnosed with UTI on 11/19/2024 Secondary to indwelling Quinonez UA culture grew Proteus mirabilis, susceptible to ceftriaxone Continue cefuroxime p.o. Graves disease Continue methimazole Check TSH Hx of CVA Continue aspirin, statin HTN Continue lisinopril, propranolol Mood disorder Continue venlafaxine, BuSpar Full Code Attending:?Dr. Rodriguez DVT Prophylaxis: Lovenox Pt will require a hospitalization of at least two nights for treatment of?acute asthma exacerbation setting of RSV infection that failed outpatient therapy. Pt will require hospital level care for administration of IV steroids and breathing treatments, as well as close monitoring of respiratory status. Quality Stroke Does the patient have a stroke diagnosis?: No VTE Prior VTE?: No VTE Risk Level:: Medical - moderate - high VTE Device Contraindication: Treatment Not Indicated VTE Drug Contraindication: N/A - Med Ordered
[2024-11-23 16:51] LABS: TSH reflex Free T4 < 0.01 uIU/mL (0.32-4.0)
--- NOTE | 2024-11-23 17:40 | PHA.MEDREC ---
Addendum entered by Tariq Rosen [facility] 11/23/24 18:52: MED REC CHECKED BY [facility] Original Note: Pharmacy Consult ? Medication Reconciliation Pharmacy has completed the medication reconciliation. Spoke with patient and she confirmed her medications. She states she finished the Cefuroxime and Prednisone regimens even tho she picked up the Cefuroxime 11/20 for 7 days and Prednisone she picked up 11/20 for 4 days. Patient also confirmed she is still taking the Methimazole and Propanolol and looking in claims and talking with the patients pharmacy the Methimazole has not been filled since 08/07 for 30 days and the Propanolol has not been filled since 08/07 for 90 days. The patient also confirmed she is taking the Aripiprazole but did not remember if she was taking the 2mg or 10mg tabs and looking in claims the 2mg tab was last filled 11/02 for 30 days and the 10mg tab was last filled 05/08/24 fopr 30 days. The patient states she took her medications this morning.
[2024-11-23 17:50] LABS: Free T4 (Free Thyroxine) 1.32 ng/dL (0.71-1.85)
[2024-11-23] MEDS: Enoxaparin Sodium 40 MG/0.4 ML SYRINGE SUBCUT (18:15)
[2024-11-24] VITALS (11 sets, daily range): BP systolic 132–178; BP diastolic 75–103; PULSE 68–85; RESP 16–22; TEMP 36.3–36.8; O2SAT 95–99; BMI 32.9
[2024-11-24] MEDS: methocarbamoL 750 MG TABLET PO (00:32)
[2024-11-24] MEDS: 0.9 % Sodium Chloride Flush 3 ML SYRINGE IVFLUSH ×4 (00:32→22:35)
[2024-11-24] MEDS: Gabapentin 300 MG CAPSULE 900 MG PO ×4 (01:10→20:25)
[2024-11-24] MEDS: Melatonin 3 MG TABLET 6 MG PO (01:11)
[2024-11-24] MEDS: Baclofen 10 MG TABLET PO ×2 (01:11→20:26)
[2024-11-24] MEDS: Propranolol HCL 10 MG TABLET PO ×4 (01:18→20:25)
[2024-11-24] MEDS: busPIRone HCl 10 MG TABLET PO ×3 (01:20→20:25)
[2024-11-24] MEDS: hydrOXYzine HCL 50 MG TABLET PO ×3 (01:20→20:26)
--- NOTE | 2024-11-24 07:00 | PC.NURSE ---
Report taken from Kamila Miller RN at this time.
--- NOTE | 2024-11-24 08:11 | MHC.EDTECH ---
Pt given brakfast tray, ate almost everything, asked for additional drink, stated she would like to go back to sleep, light turned off. Call jones within reach.
[2024-11-24] MEDS: Cholecalciferol (Vitamin D3) 25 MCG TABLET 50 MCG PO (08:14)
[2024-11-24] MEDS: Aspirin Enteric Coated 81 MG TABLET.DR PO (08:14)
--- NOTE | 2024-11-24 08:20 | PC.NURSE ---
Awaiting missing 09:00 meds. per pharmacy at this time.
[2024-11-24] MEDS: Albuterol/Iprat 2.5/0.5MG 3 ML AMPUL.NEB INHALE ×4 (08:36→19:36)
[2024-11-24] MEDS: Venlafaxine HCl ER 75 MG CAP.ER.24H PO (09:03)
[2024-11-24] MEDS: Ascorbic Acid 500 MG TABLET 1000 MG PO (09:03)
[2024-11-24] MEDS: ARIPiprazole 2 MG TABLET PO (09:03)
[2024-11-24] MEDS: lisinopriL 10 MG TABLET PO (09:03)
[2024-11-24] MEDS: methIMAzole 10 MG TABLET PO (09:03)
--- NOTE | 2024-11-24 11:04 | PM.EVENT ---
Event Note Date of Service: 11/24/24 Event Note: admitted yesterday evening Seen and examined this AM sob improving, less weak will re-eval this afternoon to see if ready for d/c Time Spent With Patient Time: Total time managing care of this patient today ____ minutes.
[2024-11-24] MEDS: methylPREDNISolone Sod Succ 40 MG/ML VIAL IVPUSH ×2 (13:00→22:36)
--- NOTE | 2024-11-24 14:29 | MHC.CM.PN ---
HEAD SWAMPER MET WITH PT AT BEDSIDE PT STATES SHE LIVES IN AN APARTMENT PT RECEIVES [employer] PT USES WHEEL CHAIR PT CHANGED HCP TO SON SHANIA GUILLERMO(SON)[phone] PT'S PCP IS JASS ZAPATA PT'S INS IS MEDICAID PT WILL NEED BLS TRANSPORT
--- NOTE | 2024-11-24 14:37 | PC.NURSE ---
Awaiting 15:00 Propranolol per pharmacy at this time.
--- NOTE | 2024-11-24 15:31 | HO.PM.IMPN ---
Subjective Subjective Date of Service: 11/24/24 Interval History: seen and examined was feeling improved this AM, but later more sob and wheezy +fatigue Physical Exam Vital Signs: Vital Signs: Last Vital Signs Temp 97.8 F 11/24/24 05:01 Pulse 81 11/24/24 14:46 Resp 20 11/24/24 14:46 BP 178/75 H 11/24/24 05:01 Pulse Ox 97 11/24/24 05:01 O2 Del Method Room Air 11/24/24 05:01 BMI result Body Mass Index 34.4 Const: Other: General - no acute distress, appears comfortable Cardiovascular - regular rate and rhythm, S1-S2 Lungs - dim sounds Abdomen - soft, nontender, no rebound or guarding Extremities - no edema bilaterally Neuro - awake and alert, no focal deficits Objective Data Active Medications Acetaminophen (Acetaminophen 325 Mg Tablet) 650 mg PO Q6H PRN PRN Reason: Pain, Mild 1-3,fever,headache Albuterol/Ipratropium (Albuterol/Iprat 2.5/0.5mg 3 Ml Ampul.Neb) 3 ml INHALE RQ4H WHILE AWAKE [facility] Last Admin: 11/24/24 14:46 Dose: 3 ml Documented By: RJ Albuterol/Ipratropium (Albuterol/Iprat 2.5/0.5mg 3 Ml Ampul.Neb) 3 ml INHALE RQ4H WHILE AWAKE PRN PRN Reason: Shortness of Breath/Wheezing Aripiprazole (Aripiprazole 2 Mg Tablet) 2 mg PO DAILY [facility] Last Admin: 11/24/24 09:03 Dose: 2 mg Documented By: KEMAL Ascorbic Acid (Ascorbic Acid 500 Mg Tablet) 1,000 mg PO DAILY [facility] Last Admin: 11/24/24 09:03 Dose: 1,000 mg Documented By: KEMAL Aspirin (Aspirin Enteric Coated 81 Mg Tablet.) 81 mg PO DAILY [facility] Last Admin: 11/24/24 08:14 Dose: 81 mg Documented By: KEMAL Baclofen (Baclofen 10 Mg Tablet) 10 mg PO TID PRN PRN Reason: muscle spasm Last Admin: 11/24/24 01:11 Dose: 10 mg Documented By: GODFREY Buspirone HCl (Buspirone Hcl 10 Mg Tablet) 10 mg PO BID [facility] Last Admin: 11/24/24 09:03 Dose: 10 mg Documented By: KEMAL Calcium Carbonate (Calcium Carbonate 750 Mg Tab.Chew) 750 mg PO Q4H PRN PRN Reason: Heartburn Enoxaparin Sodium (Enoxaparin Sodium 40 Mg/0.4 Ml Syringe) 40 mg SUBCUT Q24H [facility] Last Admin: 11/23/24 18:15 Dose: 40 mg Documented By: PETE Fluticasone Propionate (Fluticasone Propionate Nasal 16 Gm [place]) 2 spray NOSTRIL-B DAILY PRN PRN Reason: Allergy Symptoms Gabapentin (Gabapentin 300 Mg Capsule) 900 mg PO TID [facility] Last Admin: 11/24/24 14:41 Dose: 900 mg Documented By: KEMAL Guaifenesin/Dextromethorphan (Guaifenesin Dm 200/20/10 Ml 10 Ml Syrup) 10 ml PO Q4H PRN PRN Reason: Cough Hydroxyzine HCl (Hydroxyzine Hcl 50 Mg Tablet) 50 mg PO Q6H PRN PRN Reason: anxiety Last Admin: 11/24/24 01:20 Dose: 50 mg Documented By: GODFREY Lisinopril (Lisinopril 10 Mg Tablet) 10 mg PO DAILY [facility]; Protocol Last Admin: 11/24/24 09:03 Dose: 10 mg Documented By: KEMAL Magnesium Hydroxide (Milk Of Magnesia 30 Ml Oral.Susp) 30 ml PO DAILY PRN PRN Reason: Constipation Melatonin (Melatonin 3 Mg Tablet) 6 mg PO BEDTIME PRN PRN Reason: Insomnia Last Admin: 11/24/24 01:11 Dose: 6 mg Documented By: GODFREY Methimazole (Methimazole 10 Mg Tablet) 10 mg PO DAILY [facility] Last Admin: 11/24/24 09:03 Dose: 10 mg Documented By: KEMAL Methylprednisolone Sodium Succinate (Methylprednisolone Sod Succ 40 Mg/Ml Vial) 40 mg IVPUSH Q12H [facility] Last Admin: 11/24/24 13:00 Dose: 40 mg Documented By: KEMAL Nystatin (Nystatin Cream 15 Gm Tube) 1 appl TOPICAL DAILY [facility]; Protocol Last Admin: 11/24/24 10:57 Dose: Not Given Documented By: KEMAL Non-Admin Reason: Med Not Available Propranolol HCl (Propranolol Hcl 10 Mg Tablet) 10 mg PO TID [facility]; Protocol Last Admin: 11/24/24 09:04 Dose: 10 mg Documented By: KEMAL Sodium Chloride (0.9 % Sodium Chloride Flush 3 Ml Syringe) 3 ml IVFLUSH QSHIFT [facility] Last Admin: 11/24/24 09:04 Dose: 3 ml Documented By: KEMAL Venlafaxine HCl (Venlafaxine Hcl Er 75 Mg Cap.Er.24h) 75 mg PO DAILY [facility] Last Admin: 11/24/24 09:03 Dose: 75 mg Documented By: KEMAL Vitamin D (Cholecalciferol (Vitamin D3) 25 Mcg Tablet) 50 mcg PO DAILY [facility] Last Admin: 11/24/24 08:14 Dose: 50 mcg Documented By: KEMAL Labs 11/23/24 12:07 11/23/24 12:07 Labs: Laboratory Results - last 24 hr 11/23/24 12:07 TSH < 0.01 L Free T4 1.32 Microbiology Microbiology Results: Microbiology 11/23/24 Unknown Urine Culture - Preliminary Urine Catheterized - Quinonez Catheter Culture in progress. 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 Pt will be admitted to the hospital for treatment and further evaluation of acute asthma exacerbation in the setting of RSV infection that has failed outpatient therapy. Acute asthma exacerbation in the setting of RSV infection Diagnosed with RSV on 11/19/2023 continue solu-medrol + nebs; cough meds Leukocytosis Secondary to steroid use, not sepsis Pt with asthma exacerbation secondary to RSV No indication of bacterial infection requiring antibiotics UTI Pt diagnosed with UTI on 11/19/2024 Secondary to indwelling Quinonez UA culture grew Proteus mirabilis, susceptible to ceftriaxone Continue cefuroxime p.o. Graves disease Continue methimazole Check TSH Hx of CVA Continue aspirin, statin HTN Continue lisinopril, propranolol Mood disorder Continue venlafaxine, BuSpar Full Code DVT pptx - lovenox. Quality Stroke Does the patient have a stroke diagnosis?: No VTE Prior VTE?: No VTE Risk Level:: Medical - moderate - high VTE Device Contraindication: Treatment Not Indicated VTE Drug Contraindication: N/A - Med Ordered
--- NOTE | 2024-11-24 15:35 | P.CDIM_ITS ---
PROVIDER RESPONSE TEXT: To clarify, the appropriate diagnosis supported by the clinical indicators: Mild intermittent: acute QUERY TEXT: PHYSICIAN'S DOCUMENTATION REQUEST Date of Query: 11/24/2024 12:47 PM EST Patient Name: Cheryl Garcia Admit Date: 11/23/2024 Dear Artemio Tee MD, A review of the medical record indicates additional documentation may be needed. Please review below and update the documentation accordingly. The diagnosis of Acute Asthma exacerbation was documented in the record on 11/23/24. Additional clinical indicators from the record include: SOB, wheeze, difficulty breathing, cough Solu-Medrol, DuoNebs, Guaifenesin Based on the above, please clarify further specificity regarding the type and acuity of the asthma: Mild intermittent Please specify if with or without acute exacerbation or status asthmaticus Mild persistent Please specify if with or without acute exacerbation or status asthmaticus Moderate persistent Please specify if with or without acute exacerbation or status asthmaticus Severe persistent Please specify if with or without acute exacerbation or status asthmaticus Exercise induced Please specify if with or without acute exacerbation or status asthmaticus Chronic obstructive asthma and indicate if with acute lower respiratory infection Please specify if with or without acute exacerbation or status asthmaticus Asthma with underlying COPD and indicate if with acute lower respiratory infection Please specify if with or without acute exacerbation or status asthmaticus Other (explain) Clinically unable to determine (explain) Thank you, Batool Mcclelland RN Use of terms such as suspected, likely, concern for, or probable (associated with a specific diagnosi s that is being evaluated, monitored, or treated as if it exists) are acceptable and can be coded in the inpatient se tting, when documented at the time of discharge. Please use your independent medical judgment in providing your response. THIS QUERY IS PART OF THE PERMANENT MEDICAL RECORD
--- NOTE | 2024-11-24 15:36 | PC.NURSE ---
Awaiting PRN Atarax per pharmacy at this time.
[2024-11-24] MEDS: Enoxaparin Sodium 40 MG/0.4 ML SYRINGE SUBCUT (17:59)
--- NOTE | 2024-11-24 23:26 | PC.NURSE ---
Patient admitted to s3 from ED ~21:10. Admitted with asthma exacerbation in the setting of +RSV. Pt on Contact/droplet precautions Pt is A&Ox3, vague and forgetful, stated to teletypewriter operator I don't have asthma . Reoriented. Hx CVA with residual left weakness/hemiparesis. Denies sob. Breathing is even and unlabored without distress on room air. +Intermittent dry cough. Pt rolls herself well in bed. Chronic covarrubias catheter in place on admission, intact and patent of odorless cyu. Bed alarm on, safety measures in place. Please see admission assessment for full details. Handoff report given to oncoming RN at 23:15.
[2024-11-25 04:00] VITALS: BP 175/96; PULSE 68; RESP 17; TEMP 37.2; O2SAT 95
[2024-11-25] MEDS: Acetaminophen 325 MG TABLET 650 MG PO (05:11)
[2024-11-25 07:06] VITALS: BP 189/98; PULSE 67; RESP 18; TEMP 36.4; O2SAT 97
[2024-11-25 07:50] VITALS: PULSE 67; RESP 18; O2SAT 95
[2024-11-25] MEDS: Albuterol/Iprat 2.5/0.5MG 3 ML AMPUL.NEB INHALE ×2 (07:50→11:34)
[2024-11-25 08:53] VITALS: BP 177/92; PULSE 64
[2024-11-25] MEDS: Gabapentin 300 MG CAPSULE 900 MG PO (08:58)
[2024-11-25] MEDS: Aspirin Enteric Coated 81 MG TABLET.DR PO (08:58)
[2024-11-25] MEDS: Butalb/Acetamin/Caff 50/325/40 TABLET 1 TAB PO (08:58)
[2024-11-25] MEDS: Ascorbic Acid 500 MG TABLET 1000 MG PO (08:58)
[2024-11-25] MEDS: Propranolol HCL 10 MG TABLET PO (08:58)
[2024-11-25] MEDS: Cholecalciferol (Vitamin D3) 25 MCG TABLET 50 MCG PO (08:58)
[2024-11-25] MEDS: Venlafaxine HCl ER 75 MG CAP.ER.24H PO (08:58)
[2024-11-25] MEDS: busPIRone HCl 10 MG TABLET PO (08:59)
[2024-11-25] MEDS: ARIPiprazole 2 MG TABLET PO (08:59)
[2024-11-25] MEDS: lisinopriL 10 MG TABLET PO (08:59)
[2024-11-25] MEDS: 0.9 % Sodium Chloride Flush 3 ML SYRINGE IVFLUSH (08:59)
[2024-11-25] MEDS: methIMAzole 10 MG TABLET PO (08:59)
--- NOTE | 2024-11-25 10:24 | MHC.CM.PN ---
Addendum entered by Cheryl Freeman 11/25/24 10:55: DC NOT YET FINALIZED TRANSPORT MOVED TO 1200 HOURS Original Note: PT CLEARED TO DC HOME TODAY WITH [employer] [facility] [employer] BLS TRANSPORT BOOKED VIA [facility] FOR 1100 HOURS
--- NOTE | 2024-11-25 10:45 | PC.NURSE ---
Patient refusing catheter securement device. Education provided regarding reason, importance of, and associated risks of not utilizing securement device. Verbalized understanding. Continued to decline use after education provided.
--- NOTE | 2024-11-25 10:55 | PM.DS ---
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 Pt was seen and evaluated for similar symptoms 4 days prior on 11/19/2024 and diagnosed with RSV. pt was sent home with prescription for prednisone 50 mg p.o. daily x4 doses and albuterol inhaler, as well as empiric cefuroxime for question of UTI. Pt reports completed prednisone course and has been using albuterol inhaler to little effect. States has a nebulizer at home but is unable to use it as she has no medications or tubing for it. Cough occasionally productive of whitish sputum. Denies fever or chills. Chronic back pain at baseline. No nausea, vomiting, abdominal pain. Denies chest pain/pressure, palpitations. In the ED pt was was tachypneic up to 27, tachycardic up to 92, and hypertensive up to 172/101, satting at 95% on RA. Labs were significant for leukocytosis 15.8 and BNP elevated at 280. Stable H&H. No significant electrolyte abnormalities. Renal function baseline. Hepatic function WNL. Initial troponin 9.2. VBG pH 7.55 with pCO2 31 and bicarb 27. Urine culture from 11/19/2024 grew Proteus mirabilis susceptible to ceftriaxone. CXR showed no active disease, but showed low lung volumes with bronchovascular crowding. EKG demonstrated normal sinus rhythm without significant evidence of ST elevations or depressions. Pt was treated with Mag sulfate, DuoNebs, and Solu-Medrol. Pt will be admitted to the hospital for treatment and further evaluation of acute asthma exacerbation in the setting of RSV infection that has failed outpatient therapy. 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 Acute mild persistent asthma exacerbation in the setting of RSV infection treated with IV steroids nebulizer and cough medication patient responded well to above treatment shortness of breath has resolved no hypoxia therefore being discharged home on 5 more days of by mouth prednisone recommend to continue cough medication and nebulizer, noted to have elevated WBC likely due to steroids not due to sepsis. In regard to recently diagnosed UTI on due to chronic indwelling Quinonez catheter patient was given 7 day course of antibiotic on November 19 by ED provider recommend to finish the course. Graves disease Continue methimazole Hx of CVA Continue aspirin, statin HTN Continue lisinopril, propranolol Mood disorder Continue venlafaxine, BuSpar Time Attestation Discharge Coordination Time (in mins): 38 Quality: Safe Use of Opioids Does Pt have an Active Cancer Diagnosis on the Problem List?: No Quality: Stroke Does the patient have a stroke diagnosis?: No Physical Exam Vital Signs: Vital Signs: Last Vital Signs Temp 97.6 F 11/25/24 07:06 Pulse 64 11/25/24 08:53 Resp 18 11/25/24 07:50 BP 177/92 H 11/25/24 08:53 Pulse Ox 97 11/25/24 07:06 O2 Del Method Room Air 11/25/24 07:06 BMI result Body Mass Index 32.9 Const: Other: General - no acute distress, appears comfortable Anicteric sclera Cardiovascular - regular rate and rhythm, S1-S2 Lungs - clear to auscultation no wheeze Abdomen - soft, non tender, no rebound or guarding Extremities - no edema bilaterally Neuro - awake and alert, no focal deficits DS: Data Data Completed and Pending Labs on day of discharge: Preliminary micro results at discharge 11/23/24 Unknown Urine Culture - Preliminary Urine Catheterized - Quinonez Catheter Culture in progress. Discharge Plan Discharge Anticipated Discharge Date/Time: 11/25/24 10:46 Patient Disposition: Home, Self-Care Discharge Diagnosis: Acute asthma exacerbation in the setting of RSV Acute UTI secondary to indwelling Quinonez catheter Referrals: Aliza Paul DO [Primary Care Provider] - 1 Week Discharge Medications: New dextromethorphan-guaifenesin 10-100 mg/5 mL Syrup 10 ml PO Q6H PRN (Reason: Cough) Qty: 237 0RF ipratropium-albuterol 0.5 mg-3 mg(2.5 mg base)/3 mL Solution For Nebulization 3 ml inhalation RQ4H WHILE AWAKE PRN (Reason: Shortness Of Breath/Wheezing) Qty: 90 0RF prednisone 20 mg tablet 20 mg PO DAILY Qty: 5 0RF Continued ascorbic acid (vitamin C) 1,000 mg tablet 1,000 mg PO DAILY 90 Days Qty: 90 1RF nystatin 100,000 unit/gram cream 1 appl topical DAILY Qty: 15 0RF venlafaxine 75 mg capsule,extended release 24hr 75 mg PO DAILY hydroxyzine HCl 50 mg tablet 50 mg PO Q6H PRN (Reason: anxiety) acetaminophen 650 mg tablet extended release 650 mg PO Q12H PRN (Reason: pain) buspirone 10 mg tablet 10 mg BID cholecalciferol (vitamin D3) 50 mcg (2,000 unit) capsule 50 mcg DAILY baclofen 10 mg tablet 10 mg PO TID PRN (Reason: muscle spasm) albuterol sulfate 90 mcg/actuation Hfa Aerosol Inhaler 2 puff INHALATION Q4-6H PRN (Reason: Shortness Of Breath Or Wheezing) propranolol 10 mg Tablet 10 mg PO TID Qty: 270 0RF Protocol: Hold for SBP/HR < HOLD for SBP < : 90 HOLD for HR < : 60 methimazole 10 mg Tablet 10 mg PO DAILY Qty: 30 0RF lisinopril 10 mg tablet 10 mg PO DAILY aripiprazole 2 mg tablet 2 mg PO DAILY gabapentin 300 mg capsule 900 mg PO TID fluticasone propionate 50 mcg/actuation spray,suspension 2 spray intranasal DAILY PRN (Reason: Allergy Symptoms) aspirin [Adult Aspirin Regimen] 81 mg tablet,delayed release (DR/EC) 81 mg PO DAILY Discharge Orders: Discharge Order (Routine); Ordered 11/25/24 Ordered By: Renetta Barker Diet: Advance to usual diet Activity on Discharge: As tolerated Stand Alone Forms: Patient Portal Discharge page Print Language: [place] Care Plan Goals: Acute asthma exacerbation due to RSV Take prednisone 20 mg daily for 5 more days with food. Continue DuoNeb updraft as before Cough medication as needed Finish course of antibiotics for UTI Health Concerns: Indwelling Quinonez catheter, change catheter Q monthly Plan of Treatment: Outpatient follow-up with primary care physician call for appointment Assessment: As above
[2024-11-25 11:34] VITALS: PULSE 64; RESP 19; O2SAT 95
[2024-11-25] MEDS: methylPREDNISolone Sod Succ 40 MG/ML VIAL IVPUSH (11:42)
[2024-11-25 11:59] VITALS: BP 165/85; PULSE 77; RESP 20; TEMP 36.6; O2SAT 95
== END 2024-11-25 12:07 | disposition home or self-care (01) | DRG 141 ==
LOC: HO.ED 15:06 → HO.EDOVER 17:02 → HO.S3 11-24 10:08 → HO.EDOVER 11-24 10:14 → HO.S3 11-24 19:02
PROVIDERS: Physician Assistant; Admitting Provider Student in an Organized Health Care Education/Training Program; Emergency Provider Student in an Organized Health Care Education/Training Program; PCP Family Medicine; Visit Provider Hospitalist
DX: J45.21 Mild intermittent asthma with (acute) exacerbation (principal); I69.354 Hemiplegia and hemiparesis following cerebral infarction affecting left non-dominant side; B97.4 Respiratory syncytial virus as the cause of diseases classified elsewhere; T83.511A Infection and inflammatory reaction due to indwelling urethral catheter, initial encounter; N39.0 Urinary tract infection, site not specified; N31.9 Neuromuscular dysfunction of bladder, unspecified; B96.4 Proteus (mirabilis) (morganii) as the cause of diseases classified elsewhere; I10 Essential (primary) hypertension; F39 Unspecified mood [affective] disorder; E05.00 Thyrotoxicosis with diffuse goiter without thyrotoxic crisis or storm; Z79.82 Long term (current) use of aspirin; Z79.899 Other long term (current) drug therapy
CPT/HCPCS: 36415; 71045; 80048; 80076; 80307; 81001; 82803; 83735; 83880; 84439; 84443; 84484; 85025; 87086; 87088; 87186; 93005; 94640; 99285; C1758; J1650; J2919; J3475

== ENCOUNTER → 2024-11-23 11:43 | Outpatient (BNV) | payer MEDICAID, SELFPAY | PROVIDERS: Emergency Provider Student in an Organized Health Care Education/Training Program; PCP Family Medicine; Visit Provider Radiology Diagnostic Radiology | DX: J98.4 Other disorders of lung (principal) | CPT/HCPCS: 71045 ==

== ENCOUNTER → 2024-11-23 11:43 | Outpatient (BNV) | payer MEDICAID, SELFPAY | PROVIDERS: Admitting Provider Student in an Organized Health Care Education/Training Program; Emergency Provider Student in an Organized Health Care Education/Training Program; PCP Family Medicine; Visit Provider Internal Medicine Cardiovascular Disease | DX: R06.02 Shortness of breath (principal); R94.31 Abnormal electrocardiogram [ECG] [EKG] | CPT/HCPCS: 93010 ==

== ENCOUNTER → 2024-11-23 16:42 | Outpatient (BNV) | payer MEDICAID, SELFPAY | PROVIDERS: Admitting Provider Student in an Organized Health Care Education/Training Program; Emergency Provider Student in an Organized Health Care Education/Training Program; PCP Family Medicine; Visit Provider Student in an Organized Health Care Education/Training Program | DX: J21.0 Acute bronchiolitis due to respiratory syncytial virus (principal); J45.21 Mild intermittent asthma with (acute) exacerbation | CPT/HCPCS: 99232; 99239; 99499 ==

== ENCOUNTER 2024-12-05 13:41 | Emergency (ER) | payer MEDICAID, SELFPAY ==
--- NOTE | ~2024-12-05 | XR_ITS ---
EXAMINATION: XR RIBS, RIGHT CLINICAL INFORMATION: R rib pain COMPARISON: Chest radiograph 11/23/2024, 11/19/2024, 08/14/2024. TECHNIQUE: AP chest, and 3 views of the right ribs were obtained. FINDINGS: Cardiac silhouette is enlarged, but may be partially magnified by AP technique. Mediastinal and hilar contours are normal. Stable opacity to the left of the aortic arch, unchanged on several prior exams and presumably scarring or a prominent hilar vessel. Lungs clear. No pneumothorax or effusion. Old healed fracture deformity right proximal humerus. Degenerative spinal changes. No definite rib fracture identified. Prior surgical anterior fusion. XR/XR ribs RT min 3V w CXR1V IMPRESSION: 1. No active pulmonary disease. No pneumothorax or effusion. 2. No definite rib fracture identified. Electronically signed by: Demetrio Valverde MD 12/05/2024 03:19 PM [facility]
--- NOTE | ~2024-12-05 | CT_ITS ---
EXAMINATION: CT CERVICAL SPINE WITHOUT CONTRAST CLINICAL INFORMATION: Neck pain fall. COMPARISON: None available. TECHNIQUE: Spiral CT examination of the cervical spine performed in axial plane without IV contrast. Sagittal, coronal, and thin section axial reformatted images were constructed from the axial data set. This CT examination was performed using dose optimization techniques as appropriate, variously including the following: *Automated exposure control *Adjustment of mA and/or kV according to patient size (this includes techniques or standardized protocols for targeted exams where dose is matched to indication/reason for exam; i.e. extremities or head) *Use of iterative reconstruction technique FINDINGS: There is straightening of the normal lordosis. There is a trace right convex scoliosis. There is no evidence of acute fracture, traumatic subluxation, compression deformity, or suspicious focal bony abnormality. There has been prior anterior fusion of C5-C7 with plate and interbody screws, as well as intervening disc prostheses. There is partial bony fusion through the disc spaces. Hardware appears intact without evidence of loosening of or complication. There is a 2 mm degenerative anterolisthesis of C3 on C4. Alignment is otherwise normal. There is no facet malalignment. The C2-3 right facets are fused. Multilevel mild to moderate degenerative facet and uncinate changes. Severe disc space degeneration present C4-5, and C7-T1. Moderate degeneration present C3-4. Craniocervical junction is intact. C1-2 articulation is intact and normally aligned. No prevertebral soft tissue abnormalities. Normal-appearing thyroid. Lung apices are somewhat motion degraded with emphysematous changes. CT/CT cervical spine wo IV con IMPRESSION: 1. No CT evidence of acute cervical spine fracture or injury.. 2. Intact anterior fusion C5-C7 without complication noted. 3. Moderate degenerative spondylosis. Electronically signed by: Demetrio Valverde MD 12/05/2024 04:41 PM [facility]
--- NOTE | ~2024-12-05 | XR_ITS ---
EXAMINATION: XR SHOULDER, RIGHT CLINICAL INFORMATION: fall , pain COMPARISON: 10/27/2022. TECHNIQUE: AP external rotation, Grashey, scapular Y, and axillary views of the right shoulder. FINDINGS: No definite acute fracture evident. No dislocation. Healed fracture deformity of the surgical neck of the right humerus. The AC joint is intact. The subacromial space is preserved. There is mild degenerative arthritis in the glenohumeral joint, possibly posttraumatic. The clavicle is intact. The acromion is intact. Imaged soft tissues and ribs appear intact. Imaged right lung clear. XR/XR shoulder RT min 2V IMPRESSION: No acute findings right shoulder. Old healed fracture deformity surgical neck right proximal humerus. Electronically signed by: Demetrio Valverde MD 12/05/2024 03:21 PM [facility]
--- NOTE | ~2024-12-05 | CT_ITS ---
EXAMINATION: CT HEAD WITHOUT CONTRAST CLINICAL INFORMATION: Headache after head strike. Fall. COMPARISON: 07/20/2024, 11/09/2022. TECHNIQUE: Contiguous axial imaging was performed from the skull base to vertex without intravenous administration of contrast. This CT examination was performed using dose optimization techniques as appropriate, variously including the following: *Automated exposure control *Adjustment of mA and/or kV according to patient size (this includes techniques or standardized protocols for targeted exams where dose is matched to indication/reason for exam; i.e. extremities or head) *Use of iterative reconstruction technique FINDINGS: There is no evidence of intracranial hemorrhage or extra-axial fluid collection. There is no mass effect, or edema. No CT evidence of acute territorial infarct. Ventricles, sulci, and cisterns are normal in size and configuration for patient age. No hydrocephalus. No midline shift. 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 There are old tiny lacunar type infarcts in the right greater than left anterior gangliocapsular regions. Old focal white matter infarct in left precentral gyrus. There are mild chronic microvascular ischemic changes. Partial empty sella noted. Mild atheromatous calcification of the bilateral carotid siphons and V4 segments vertebral arteries bilaterally. Globes and orbital contents image normally. No extracranial soft tissue abnormalities. The paranasal sinuses, mastoid air cells, and tympanic cavities are normally aerated. No suspicious bony abnormalities. No fractures. Degenerative changes right TM joint. CT/CT head/brain wo IV con IMPRESSION: 1. No acute intracranial abnormalities. No fractures. 2. Stable chronic changes. Electronically signed by: Demetrio Valverde MD 12/05/2024 04:34 PM [facility]
--- NOTE | ~2024-12-05 | XR_ITS ---
EXAMINATION: XR HAND, LEFT CLINICAL INFORMATION: thumb pain/swelling COMPARISON: None available. TECHNIQUE: PA, lateral, and oblique views of the left hand. FINDINGS: There is diffuse mild osteopenia. There is an acute intra-articular corner fracture involving the radial aspect, distal phalanx of the thumb, with no significant displacement. No significant articular step-off. There is associated soft tissue swelling. There are no additional fractures or evidence of malalignment. Mild arthritic changes are present at the first CMC joint, and throughout the DIP joints. No additional soft tissue abnormality. XR/XR hand LT min 3V IMPRESSION: 1. Osteopenia. 2. Acute intra-articular nondisplaced corner fracture involving the radial aspect of the distal phalanx of thumb. This involves the lateral interphalangeal joint. Associated soft tissue swelling. 3. No additional acute findings. Mild arthritic changes. Electronically signed by: Demetrio Valverde MD 12/05/2024 03:15 PM [facility]
[2024-12-05 13:45] VITALS: BP 162/90; PULSE 94; O2SAT 95; BMI 37.1
--- NOTE | 2024-12-05 14:05 | ED.FALL ---
HPI - Fall General Chief Complaint: Fall Stated Complaint: R SHOULDER PAIN L THUMB PAIN Time Seen by Provider: 12/05/24 13:53 Source: patient, RN notes reviewed and old records reviewed History of Present Illness ED Provider: Candice Hastings PA-C HPI Narrative: 59-year-old female with a past medical history of CVA with residual left-sided hemiparesis, Graves disease, asthma, HTN, neurogenic bladder with chronic indwelling Quinonez, migraines, depression, anxiety, presenting to the ED via EMS complaining of right shoulder, neck, and left thumb pain with unknown head strike s/p friend pushing her out of wheelchair backwards BAND TUMBLER. States she fell backwards onto right shoulder unsure if she hit her head, denies LOC. Denies anticoagulation use. Denies back pain, CP/SOB, abdominal pain, nausea/vomiting. Related Data Home Medications ?Medication ?Instructions ?Recorded ?Confirmed fluticasone propionate 50 2 spray intranasal DAILY PRN 11/18/21 11/23/24 mcg/actuation nasal Allergy Symptoms spray,suspension aspirin 81 mg tablet,delayed 81 mg PO DAILY 12/07/23 11/23/24 release (Adult Aspirin Regimen) gabapentin 300 mg capsule 900 mg PO TID 06/11/24 11/23/24 acetaminophen 650 mg 650 mg PO Q12H PRN pain 07/20/24 11/23/24 tablet,extended release albuterol sulfate 90 mcg/actuation 2 puff inhalation Q4-6H PRN 07/20/24 11/23/24 aerosol inhaler Shortness Of Breath Or Wheezing baclofen 10 mg tablet 10 mg PO TID PRN muscle spasm 07/20/24 11/23/24 buspirone 10 mg tablet 10 mg BID 07/20/24 11/23/24 cholecalciferol (vitamin D3) 50 50 mcg DAILY 07/20/24 11/23/24 mcg (2,000 unit) capsule hydroxyzine HCl 50 mg tablet 50 mg PO Q6H PRN anxiety 07/20/24 11/23/24 venlafaxine 75 mg capsule,extended 75 mg PO DAILY 07/20/24 11/23/24 release 24 hr aripiprazole 2 mg tablet 2 mg PO DAILY 11/23/24 11/23/24 lisinopril 10 mg tablet 10 mg PO DAILY 11/23/24 11/23/24 Previous Rx's ?Medication ?Instructions ?Recorded nystatin 100,000 unit/gram topical 1 appl topical DAILY #15 grams 06/30/24 cream methimazole 10 mg tablet 10 mg PO DAILY #30 tabs 07/23/24 propranolol 10 mg tablet 10 mg PO TID #270 tabs 07/23/24 ascorbic acid (vitamin C) 1,000 mg 1,000 mg PO DAILY 90 days #90 tabs 11/16/24 tablet dextromethorphan-guaifenesin 10 10 ml PO Q6H PRN Cough #237 mL 11/25/24 mg-100 mg/5 mL oral syrup ipratropium 0.5 mg-albuterol 3 mg 3 ml inhalation RQ4H WHILE AWAKE 11/25/24 (2.5 mg base)/3 mL nebulization PRN Shortness Of Breath/Wheezing soln #90 mL prednisone 20 mg tablet 20 mg PO DAILY #5 tabs 11/25/24 Allergies Allergy/AdvReac Type Severity Reaction Status Date / Time No Known Allergies Allergy Verified 12/05/24 13:47 Review of Systems Review of Systems: Yes all other systems are reviewed and are negative Constitutional: Constitutional: Reports as per [facility] Past Medical History Attestation statement: The following information was validated with the patient. 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 OWNER Housing: Apartment Do you presently have visiting nurse or other home services: Yes (31/05 OPTOMETRIST PRESIDENT/PRACTICE OWNER THAT LIVES WITH PT) Alcohol intake: current Alcohol intake frequency: does not drink Alcohol type: beer Patient Tobacco Use Status: Never used Tobacco Substance Use Type: Marijuana Advance Directives: Yes Advance Directives on File: Yes Advance Directives Date on File: 10/27/22 Do you have a plan to hurt others: No Plan service: No Physical Exam Vital Signs: Vital Signs: Last Vital Signs Temp 97.2 F 12/05/24 15:51 Pulse 55 12/05/24 15:51 Resp 16 12/05/24 15:51 BP 157/83 H 12/05/24 15:51 Pulse Ox 96 12/05/24 15:51 O2 Del Method Room Air 12/05/24 15:51 BMI result Body Mass Index 37.1 Const: General: cooperative Orientation/consciousness: patient oriented x3 Limitations: no limitations HEENT: Head: Yes normal to inspection and Yes atraumatic Ears: hearing grossly normal bilaterally General nose exam: Normal external nose present Face and sinus: Yes normal facial exam Eyes: General: appearance normal, both eyes and all related structures EOM: EOMs intact bilaterally Neck: Neck: Yes normal visual inspection and Yes no meningeal signs Resp: Effort & Inspection: normal respiratory effort and no respiratory distress Cardio: Rate: regular rate Heart sounds: S1 normal heart sound present and S2 normal heart sound present GI: Inspection: Yes normal to inspection Palpation (GI): Soft to palpation, nontender, no guarding and not rigid Back/Spine/Pelvis: Other: No midline cervical/thoracic/lumbar spinous tenderness/step-off or deformity. + right-sided upper thoracic/posterior lateral rib abrasion/erythema noted with slight tenderness. No flail chest. No ecchymosis Skin: Rashes: no rashes Wounds: no wounds Neuro: Other: Left-sided hemiparesis from prior CVA General: patient oriented x3, tone normal and no meningeal signs Extrem: Other: Right shoulder without appreciable deformity. Diffusely tender to palpation. Limited ROM secondary to pain. Neurovascularly intact distally Right elbow/wrist/hand nontender Left thumb with appreciable swelling, ecchymosis, tenderness to palpation, decreased ROM secondary to pain. [id number] opposition intact. Left wrist with mild swelling and tenderness. NV intact Course Course Course Narrative: [id number] hand LT min 3V IMPRESSION: 1. Osteopenia. 2. Acute intra-articular nondisplaced corner fracture involving the radial aspect of the distal phalanx of thumb. This involves the lateral interphalangeal joint. Associated soft tissue swelling. 3. No additional acute findings. Mild arthritic changes. > patient is able to flex, and partially extend 1st digit DIP > however is also patients hemiparetic side. Concern for possible partial or full tendon rupture >> will splint in hyperextension and recommended close orthopedic hand follow-up XR ribs RT min 3V w CXR1V IMPRESSION: 1. No active pulmonary disease. No pneumothorax or effusion. 2. No definite rib fracture identified. XR shoulder RT min 2V IMPRESSION: No acute findings right shoulder. Old healed fracture deformity surgical neck right proximal humerus. 164--CT head/brain wo IV con IMPRESSION: 1. No acute intracranial abnormalities. No fractures. 2. Stable chronic changes. CT cervical spine wo IV con IMPRESSION: 1. No CT evidence of acute cervical spine fracture or injury.. 2. Intact anterior fusion C5-C7 without complication noted. 3. Moderate degenerative spondylosis. Results discussed with patient including worrisome signs and symptoms and strict return precautions, and when to return to the emergency department. They verbalized understanding and feel safe for discharge at this time. Procedures Orthopedic Splinting/Casting Injury #1: Side: left Upper Extremity Injury Location: finger Upper Extremity Immobilizer: finger (other) Medical Decision Making Medical Decision Making [facility] Narrative: 59-year-old female with a past medical history of CVA with residual left-sided hemiparesis, Graves disease, asthma, HTN, neurogenic bladder with chronic indwelling Quinonez, migraines, depression, anxiety, presenting to the ED via EMS complaining of right shoulder, neck, and left thumb pain with unknown head strike s/p friend pushing her out of wheelchair backwards BAND TUMBLER. On exam vital signs stable, NAD, nontoxic appearing, physical exam as noted above. Concern for ICH vs fractures vs contusion vs strain. Low suspicion for cord compression, intrathoracic or intra-abdominal bleeding/hematoma, cauda equina/cord compression Plan: Head/C-spine CT, x-rays, re-evaluate Please refer to course for remaining clinical decision making, interpretation of labs/imaging results, and discussions with consultants and/or family members. Differential Diagnosis Differential Diagnoses: The differential diagnosis associated with the presentation includes As above Admission/Observation Consideration of admission/observation: Escalation of care including admission/observation considered Lab Data [facility] Lab Attestation statement: I reviewed the patient's lab results. Independent Interpretation I performed an independent interpretation of an: Plain X-Ray and CT Scan Radiology Impression Discussion of test interpretation with radiology: I have reviewed the radiologist's reading. Independent Historian Clinical information obtained from an independent historian. History obtained from or confirmed by: EMS External Record Review External record reviewed: Inpatient record, Office record, Outpatient record, Prior outpatient labs, Prior outpatient radiology, Primary care record and Outside ED record Tests considered The following testing was considered but not selected: As above Prescription Management I considered prescription management with: Other Chronic Conditions Patient?s care impacted by: Other (CVA) Social Determinants Patient?s care significantly limited by Social Determinants of Health including: Other Social Determinant of Health Discharge Plan Discharge Clinical Impression: Fracture of distal phalanx of finger of left hand Patient Disposition: Home, Self-Care Instructions: Finger Fracture (ED) Additional Instructions: You have a fracture of your thumb. It is possible You injured your tendon. Please keep splint on, dry, clean YOU NEED TO FOLLOW-UP WITH ORTHOPEDIC HAND SPECIALIST. CALL TO MAKE AN APPOINTMENT FURTHER 2 EXTRA AVAILABLE ICE AND ELEVATE TAKE TYLENOL FOR PAIN If her symptoms persist or worsen, pain becomes unbearable, you have weakness, persistent or worsening headache, nausea/vomiting return to the ED Prescriptions: No Action ascorbic acid (vitamin C) 1,000 mg tablet 1,000 mg PO DAILY 90 Days Qty: 90 1RF nystatin 100,000 unit/gram cream 1 appl topical DAILY Qty: 15 0RF venlafaxine 75 mg capsule,extended release 24hr 75 mg PO DAILY hydroxyzine HCl 50 mg tablet 50 mg PO Q6H PRN (Reason: anxiety) acetaminophen 650 mg tablet extended release 650 mg PO Q12H PRN (Reason: pain) buspirone 10 mg tablet 10 mg BID cholecalciferol (vitamin D3) 50 mcg (2,000 unit) capsule 50 mcg DAILY baclofen 10 mg tablet 10 mg PO TID PRN (Reason: muscle spasm) albuterol sulfate 90 mcg/actuation Hfa Aerosol Inhaler 2 puff INHALATION Q4-6H PRN (Reason: Shortness Of Breath Or Wheezing) propranolol 10 mg Tablet 10 mg PO TID Qty: 270 0RF Protocol: Hold for SBP/HR < HOLD for SBP < : 90 HOLD for HR < : 60 methimazole 10 mg Tablet 10 mg PO DAILY Qty: 30 0RF lisinopril 10 mg tablet 10 mg PO DAILY aripiprazole 2 mg tablet 2 mg PO DAILY dextromethorphan-guaifenesin 10-100 mg/5 mL Syrup 10 ml PO Q6H PRN (Reason: Cough) Qty: 237 0RF ipratropium-albuterol 0.5 mg-3 mg(2.5 mg base)/3 mL Solution For Nebulization 3 ml inhalation RQ4H WHILE AWAKE PRN (Reason: Shortness Of Breath/Wheezing) Qty: 90 0RF prednisone 20 mg tablet 20 mg PO DAILY Qty: 5 0RF gabapentin 300 mg capsule 900 mg PO TID fluticasone propionate 50 mcg/actuation spray,suspension 2 spray intranasal DAILY PRN (Reason: Allergy Symptoms) aspirin [Adult Aspirin Regimen] 81 mg tablet,delayed release (DR/EC) 81 mg PO DAILY Referrals: [facility] Orthopedic Surgeons [Provider Group] - 1 week Print Language: Spanish
[2024-12-05 14:27] VITALS: BP 154/71; PULSE 74; RESP 18; TEMP 36.6; O2SAT 94
--- OUTSIDE RECORDS SUMMARY | 2024-12-05 14:53 | XMS_ITS | Encounter Summary ---
Author Organization [employer] Address [address] [place] [address] 7 [place] [address] Care Team Providers Care Fence Manufacture Supervisor Name Role Phone Aliza Paul DO Primary Care Provider [phone] Lesley Ingram Unavailable Unavailable Rosi Castro RN Unavailable [phone] Reason for Visit * Reason Comments Med Refill Encounter Details Date Type Department Care Team ([facility] st Contact Info) Description 07/01/2024 Refill [facility] [address] [place], [place] [phone] Aliza Paul DO [address] [place] [address] Other chronic pain Social History Tobacco Use Types Packs/Day Years Used Date Smoking Tobacco: Never Passive Smoke Exposure: Never Smokeless Tobacco: Never Alcohol Use Standard Drinks/Week Comments Never 0 (1 standard drink = 0.6 oz pur e alcohol) Depression Answer Date Recorded Patient Health Questionnaire-9 Score 4 03/09/2024 Patient Health Questionnaire-9 Score 4 03/09/2024 Last PHQ-9: Questionnaire Data Not on file 0 03/09/2024 Housing Stability Answer Date Recorded What is your housing situation today? I have enzo barboza 03/09/[address] you li ve. Do you have problems with any of the following? None of the above 03/09/2024 Food Insecurity Answer Date Recorded Within the past 12 months, y ou worried that your food would run out before you got money to buy more: Often true 05/17/2024 Within the past 12 months,th e food you bought just didn't last and you didn't have enough money to get more: Often true 08/2024 Transportation Answer Date Recorded In the past 12 months, has l ack of transportation kept you from medical appts, meetings, work or from getting things needed for daily living? No 05/17/2024 Utilities Answer Date Recorded In the past 12 months, has t he electric, gas, oil or water company threatened to shut off services in your home? No 05/17/2024 Depression Answer Date Recorded Patient Health Questionnaire-2 Score 1 03/09/2024 Comments No Sex and Gender Information Value Date Recorded Sex Assigned at Female 09/07/2022 10:22 AM EDT Legal Sex Female 10:22 AM EDT Gender Identity Female 09/07/2022 10:22 AM EDT Sexual Orientation Straight 09/07/2022 10 :22 AM EDT documented as of this encounter Plan of Treatment Upcoming Encounters Date Type Department Care Team (Late st Contact Info) Description 12/06/2024 10:45 AM EST Office Visit [facility] [address] [place] [address] Aliza Paul DO [address] [place] [address] 02/08/2025 3:00 PM EDT Office Visit [facility] [address] [place], [place] [phone] Kimberly Gonzalez OD [address] [place] [address] documented as of this encounter Visit Diagnoses Diagnosis Other chronic pain documented in this encounter Additional Health Concerns Assessment Noted Time PHQ-9 Depression Total Score: 4 03/09/20 24 9:14 AM EDT documented as of this encounter Care Teams Fence Manufacture Supervisor Relationship Specialty Start Date End Date Aliza Paul DO [address] [place] [address] PCP - General Family Medicine 02/23/12 Lesley Ingram Community Health Worker 05/17/24 Rosi Castro RN [address] [place] [address] Solar Sales Advisor 05/17/24 [facility] 07/27/24 documented as of this encounter
--- OUTSIDE RECORDS SUMMARY | 2024-12-05 14:53 | XMS_ITS | Encounter Summary ---
Author Organization [employer] Address [address] [place] [address] 7 [place] [address] Care Team Providers Care Furniture Upholsterer Name Role Phone Aliza Paul DO Primary Care Provider [phone] Lesley Ingram Unavailable Unavailable Rosi Castro RN Unavailable [phone] Reason for Visit * Reason Comments Transition Of Care (Tcm) HDF- scheduled -SDOH unable to complete. Encounter Details Date Type Department Care Team ([facility] st Contact Info) Description 11/28/2024 Patient Outreach [facility] [address] [place], [place] [phone] Aliza Paul DO [address] [place] [address] Transition Of Care (Tcm) (HDF- scheduled -SDOH unable to complete. ) Social History Tobacco Use Types Packs/Day Years Used Date Smoking Tobacco: Never Passive Smoke Exposure: Never Smokeless Tobacco: Never Alcohol Use Standard Drinks/Week Comments Never 0 (1 standard drink = 0.6 oz pur e alcohol) Depression Answer Date Recorded Patient Health Questionnaire-9 Score 15 08/22/2024 Patient Health Questionnaire-9 Score 15 08/22/2024 Last PHQ-9: Questionnaire Data Not on file 1 Housing Stability Answer Date Recorded What is [...] Answer Date Recorded Patient Health Questionnaire-2 Score 5 08/22/2024 Internet Access Answer Date Recorded Internet Access Q1 No 07/07/2024 Internet Access Q2 I do not want or need it 06/10 Comments No Sex and Gender Information Value Date Recorded Sex Assigned at Female 09/07/2022 10:22 AM EDT Legal Sex Female 10:22 AM EDT Gender Identity Female 09/07/2022 10:22 AM EDT Sexual Orientation Straight 09/07/2022 10 :22 AM EDT documented as of this encounter Miscellaneous Notes * Significant Event - Talya Loco - 11/28/2024 1:00 PM EST 11/28/24 [id number] Hospital Discharges and Admission for [facility] Type of Visit Hospital Admission Date of Admission/Visit 11/23/24 Date of Discharge 11/25/24 [facility] Diagnosis RSV Disposition Discharged Home Follow-Up Actions Follow-Up Needed Provider appointment Follow-Up Outcome Spoke to Patient Initial Contact Date 11/28/24 DENNIS Miller placed outbound call to patient for HDF outreach. Patient's name and were confirmed. Patient educated on the importance of follow up with provider following inpatient admission. Patient was already scheduled for a follow up 30 min on 12/06/2024 at 10:45am with . [employer] Principal spoke with nurses to see if patient needed a HDF appt scheduled or event type had to be change only. Per Gerry Balbuena It is ok to add the details on appointment and changed the event type from Follow up to Hospital Follow up. Patient is aware of 12/06/2024 apportionment. Insurance verified prior to scheduling. Patient advised to bring to appointment a photo id and insurance card. Patient provided with education on contacting the Health Center with any questions or concerns prior to the scheduled appointment. Patient educated on extended clinic hours on Mondays and Wednesdays, and Walk-In Urgent Care Located in [facility]. Patient provided with after-hours line for [facility], , which offer night time triage service and option to transfer to mold construction supervisor provider if needed. CC scanned discharge summary into patient's chart. CC was unable to complete PVP screening, will need to be complete it inoffice. documented in this encounter Plan of Treatment Upcoming Encounters Date Type Department Care Team (Late st Contact Info) Description 12/06/2024 10:45 AM EST Office Visit [facility] [address] [place] [address] Aliza Paul DO [address] [place] [address] 02/08/2025 3:00 PM EDT Office Visit [facility] [address] [place], [place] [phone] Kimberly Gonzalez, OD [address] [place] [address] documented as of this encounter Visit Diagnoses Not on filedocumented in this encounter Additional Health Concerns Assessment Noted Time PHQ-9 Depression Total Score: 15 024 9:20 AM EDT documented as of this encounter Care Teams Furniture Upholsterer Relationship Specialty Start Date End Date Aliza Paul DO [address] [place] [address] PCP - General Family Medicine 02/23/12 Lesley Ingram Community Health Worker 05/17/24 Rosi Castro RN [address] [place] [id number] Medical Support Specialist 05/17/24 [facility] 07/27/24 documented as of this encounter
--- OUTSIDE RECORDS SUMMARY | 2024-12-05 14:53 | XMS_ITS | Encounter Summary ---
Author Organization [employer] Address [address] [place] [address] [place] [address] Care Team Providers Care Management Nurse Rn Name Role Phone Aliza Paul DO Primary Care Provider [phone] Lesley Ingram Unavailable Unavailable Rosi Castro RN Unavailable [phone] Reason for Visit * Reason Comments Med Refill Encounter Details Date Type Department Care Team ([facility] st Contact Info) Description 06/06/2024 Refill [facility] [address] [place], [place] [phone] Aliza Paul DO [address] [place] [address] Chronic nonintractable headache, unspecified headache type Social History Tobacco Use Types Packs/Day Years [...] Description 12/06/2024 10:45 AM EST Office Visit [facility] [address] [place] [phone] Aliza Paul DO [address] [place] [address] 02/08/2025 3:00 PM EDT Office Visit [facility] [address] [place] [address] Kimberly Gonzalez OD [address] [place] [address] documented as of this encounter Visit Diagnoses Diagnosis Chronic nonintractable headache, unspecified headache type documented in this encounter Additional Health Concerns Assessment Noted Time PHQ-9 Depression Total Score: 4 03/09/20 24 9:14 AM EDT documented as of this encounter Care Teams Management Nurse Rn Relationship Specialty Start Date End Date Aliza Paul DO [address] [place] [phone] PCP - General Family Medicine 02/23/12 Lesley Ingram Community Health Worker 05/17/24 Rosi Castro RN [address] [place] [id number] Mercury Recoverer 05/17/24 [facility] 07/27/24 documented as of this encounter
--- OUTSIDE RECORDS SUMMARY | 2024-12-05 14:54 | XMS_ITS | Encounter Summary ---
Author Organization [employer] Address [address] [place] [address] 7 [place] [address] Care Team Providers Care Security Flex Officer Name Role Phone Aliza Paul DO Primary Care Provider [phone] Lesley Ingram Unavailable Unavailable Rosi Castro RN Unavailable [phone] Reason for Visit * Reason Comments Med Refill Encounter Details Date Type Department Care Team ([facility] st Contact Info) Description 10/29/2023 Refill [facility] [address] [place] [address] Aliza Paul DO [address] [place] [address] Social History Tobacco Use Types Packs/Day Years Used Date Smoking Tobacco: Never Passive Smoke Exposure: Never Smokeless Tobacco: Never Alcohol Use Standard Drinks/Week Comments Never 0 (1 standard drink = 0.6 oz pur e alcohol) Housing Stability Answer Date Recorded What is your housing situation today? I have enzoshahnaz barboza 08/23/[address] you li ve. Do you have problems with any of the following? None of the above 08/23/2023 Food Insecurity Answer Date Recorded Within the past 12 months, y ou worried that your food would run out before you got money to buy more: Never True 08/23/2023 Within the past 12 months,th e food you bought just didn't last and you didn't have enough money to get more: Never True Transportation Answer Date Recorded In the past 12 months, has l ack of transportation kept you from medical appts, meetings, work or from getting things needed for daily living? No 08/23/2023 Utilities Answer Date Recorded In the past 12 months, has t he electric, gas, oil or water company threatened to shut off services in your home? No 08/23/2023 Comments No Sex and Gender Information Value [...] Description 12/06/2024 10:45 AM EST Office Visit [facility] [address] [place] [address] Aliza Paul DO [address] [place] [address] 02/08/2025 3:00 PM EDT Office Visit [facility] [address] [place], [place] [phone] Kimberly Gonzalez OD [address] [place] [address] documented as of this encounter Visit Diagnoses Not on filedocumented in this encounter Care Teams Security Flex Officer Relationship Specialty Start Date End Date Aliza Paul DO [address] [place] [address] PCP - General Family Medicine 02/23/12 Lesley Ingram Community Health Worker 05/17/24 Rosi Castro RN [address] [place] [id number] Industrial Illuminating Engineer 05/17/24 [facility] documented as of this encounter
--- OUTSIDE RECORDS SUMMARY | 2024-12-05 14:54 | XMS_ITS | Encounter Summary ---
Author Organization [employer] Address [address] [place] [address] 7t [place] [address] Care Team Providers Care Manager Fiber Name Role Phone Aliza Paul DO Primary Care Provider [phone] Lesley Ingram Unavailable Unavailable Rosi Castro RN Unavailable [phone] Reason for Visit * Reason Comments Med Refill Encounter Details Date Type Department Care Team ([facility] st Contact Info) Description 09/29/2024 Refill [facility] [address] [place], [place] [phone] Aliza Paul DO 230 [place] [address] Closed supracondylar fracture of right humerus with routine healing; Muscle spasm Social History Tobacco Use Types Packs/Day Years [...] Description 12/06/2024 10:45 AM EST Office Visit [facility] [address] [place] [address] Aliza Paul DO 230 [place] [address] 02/08/2025 3:00 PM EDT Office Visit [facility] OPT[facility] [address] [place] [address] Kimberly Gonzalez, OD [address] [place] [address] documented as of this encounter Visit Diagnoses Diagnosis Closed supracondylar fracture of right humerus with routine healing Muscle spasm Spasm of muscle documented in this encounter Additional Health Concerns Assessment Noted Time PHQ-9 Depression Total Score: 15 024 9:20 AM EDT documented as of this encounter Care Teams Manager Fiber Relationship Specialty Start Date End Date Aliza Paul DO [address] [place] [address] PCP - General Family Medicine 02/23/12 Lesley Ingram Community Health Worker 05/17/24 Rosi Castro RN [address] [place] [address] Wildland Firefighter 05/17/24 [facility] 07/27/24 documented as of this encounter
--- OUTSIDE RECORDS SUMMARY | 2024-12-05 14:54 | XMS_ITS | Encounter Summary ---
Author Organization [employer] Address [address] [place] [address] 7 [place] [address] Care Team Providers Care Pullboat Engineer Name Role Phone Aliza Paul DO Primary Care Provider [phone] Lesley Ingram Unavailable Unavailable Rosi Castro RN Unavailable [phone] Reason for Visit * Reason Comments Med Refill Encounter Details Date Type Department Care Team ([facility] st Contact Info) Description 10/19/2024 Refill [facility] 230 [place], [place] [phone] Aliza Paul DO 230 [place] [address] Other chronic pain Social History Tobacco Use [...] Description 12/06/2024 10:45 AM EST Office Visit [facility] [address] [place] [address] Aliza Paul DO [address] [place] [address] 02/08/2025 3:00 PM EDT Office Visit [facility] OPTOMETRY [address] [place] [address] Kimberly Gonzalez, OD [address] [place] [address] documented as of this encounter Visit Diagnoses Diagnosis Other chronic pain documented in this encounter Additional Health Concerns Assessment Noted Time PHQ-9 Depression Total Score: 15 024 9:20 AM EDT documented as of this encounter Care Teams Pullboat Engineer Relationship Specialty Start Date End Date Aliza Paul DO [address] [place] [address] PCP - General Family Medicine 02/23/12 Lesley Ingram Community Health Worker 05/17/24 Rosi Castro RN [address] [facility] [place] [address] Sulfonation Equipment Operator 05/17/[address] [facility] 07/27/24 documented as of this encounter
--- OUTSIDE RECORDS SUMMARY | 2024-12-05 14:54 | XMS_ITS | Encounter Summary ---
Author Organization [employer] Address [address] [place] [address] [place] [address] Care Team Providers Care Shank Threader Name Role Phone Aliza Paul DO Primary Care Provider [phone] Lesley Ingram Unavailable Unavailable Rosi Castro RN Unavailable [phone] Encounter Details Date Type Department Care Team ([facility] Contact Info) Description 11/04/[address] [phone] Aliza Paul DO [address] [place] [address] Social History Tobacco Use Types Packs/Day Years Used Date Smoking Tobacco: Never Smokeless Tobacco: Never Alcohol Use Standard Drinks/Week Comments Not Currently 0 (1 standard drink = 0.6 oz pur e alcohol) Comments Unknown Sex and Gender Information Value Date Recorded Sex Assigned at Female 09/07/2022 10:22 AM EDT Legal Sex Female 10:22 AM EDT Gender Identity Female 09/07/2022 10:22 AM EDT Sexual Orientation Straight 09/07/2022 10 :22 AM EDT COVID-19 Exposure Response Date Recorded In the last 10 days, have yo u been in contact with someone who was confirmed or suspected to have Coronavirus/COVID-19? No / Unsure 10/29/2022 10:57 AM EST documented as of this encounter Plan of Treatment Upcoming Encounters Date Type Department Care Team ([facility] Contact Info) Description 12/06/2024 10:45 AM EST Office Visit [address] [address] Aliza Paul DO 230 [place] [address] 02/08/2025 3:00 PM EDT Office Visit [facility] OPTOMETRY [address] [place] [address] Kimberly Gonzalez, OD [address] [place] [address] documented as of this encounter Visit Diagnoses Not on filedocumented in this encounter Care Teams Shank Threader Relationship Specialty Start Date End Date Aliza Paul DO 230 [place] [address] PCP - General Family Medicine 02/23/12 Lesley Ingram Community Health Worker 05/17/24 Rosi Castro, RICHARDSON [address] [place] [address] Brand Sales Manager 05/17/24 [facility] Care 07/27/24 documented as of this encounter
--- OUTSIDE RECORDS SUMMARY | 2024-12-05 14:54 | XMS_ITS ---
Author Organization [facility] Address Unknown Problems Problem Status Start Date End Date SPINAL STENOSIS, CERVICAL RE GION (Primary) (M48.02 - ICD-10-CM) ACTIVE 03/23/2024 UNSPECIFIED MOOD [AFFECTIVE] DISORDER (F39 - ICD-10-CM ) ACTIVE 03/27/2024 PERSONAL HISTORY OF TRANSIEN T ISCHEMIC ATTACK (TIA), AND CEREBRAL INFARCTION WITHOUT RESIDUAL DEFICITS (Z86.73 - ICD-10-CM) ACTIVE 03/23/2024 MUSCLE WEAKNESS (GENERALIZED) (M62.81 - ICD-10-CM) ACT ERNESTO 03/23/2024 UNSTEADINESS ON FEET (R26.81 - ICD-10-CM) ACTIVE 03/23/2024 OTHER LACK OF COORDINATION (R27.8 - ICD-10-CM) ACTIVE 03/23/2024 NEED FOR ASSISTANCE WITH PERSONAL CARE (Z74.1 - ICD-10 -CM) ACTIVE 03/23/2024 FUSION OF SPINE, CERVICAL REGION (M43.22 - ICD-10-CM) ACTIVE 03/23/2024 HYPERTENSIVE EMERGENCY (I16.1 - ICD-10-CM) ACTIVE 03/23/2024 PERSONAL HISTORY OF OTHER DI SEASES OF THE CIRCULATORY SYSTEM (Z86.79 - ICD-10-CM) ACTIVE 03/23/2024 RETENTION OF URINE, UNSPECIFIED (R33.9 - ICD-10-CM) AC TIVE 03/23/2024 PRESENCE OF OTHER SPECIFIED DEVICES (Z97.8 - ICD-10-CM ) ACTIVE 03/23/2024 BACTERIURIA (R82.71 - ICD-10-CM) ACTIVE 03/23/20 ACUTE KIDNEY FAILURE, UNSPECIFIED (N17.9 - ICD-10-CM) ACTIVE 03/23/2024 ENCOUNTER FOR OTHER PREPROCE DURAL EXAMINATION (Z01.818 - ICD-10-CM) ACTIVE 03/23/2024 GENERALIZED ANXIETY DISORDER (F41.1 - ICD-10-CM) ACTIV E 03/23/2024 MIGRAINE, UNSPECIFIED, NOT I NTRACTABLE, WITHOUT STATUS MIGRAINOSUS (G43.909 - ICD-10-CM) ACTIVE 03/23/2024 Encounters Encounter Performer Performer Role Encounter Diagnoses Location Date Discharge - Discharged / [facility] hospital [facility] 02:52 pm EDT - 04/04/2024 01:00 am EDT Reason For Referral patient call herself Immunizations Vaccine Date Pneumococcal Polysaccharide Vaccine (PPS V23) 12/16/2021 12:00 am EST Influenza vaccine, quadrivalent, adjuvan iraida 09/23/2017 12:00 am EST COVID-19, mRNA, LNP-S, bivalent, PF, 30 mcg/0.3 mL dose 10/17/2022 12:00 am EST DTaP 09/06/2022 12:00 am EDT Social History
--- OUTSIDE RECORDS SUMMARY | 2024-12-05 14:54 | XMS_ITS | Encounter Summary ---
Author Organization [employer] Address [address] [place] [address] [place] [address] Care Team Providers Care Program Planner Name Role Phone Aliza Paul DO Primary Care Provider [phone] Lesley Ingram Unavailable Unavailable Rosi Castro RN Unavailable [phone] Reason for Visit * Reason Onset Date Comments FYI 05/15/2024 Encounter Details Date Type Department Care Team ([facility] st Contact Info) Description 05/15/2024 Telephone [facility] MEDICINE [address] [place], [place] [phone] Aliza Paul DO 230 [place] [address] FYI Social History Tobacco Use Types Packs/Day Years [...] as of this encounter Miscellaneous Notes * Telephone Encounter - Rosmery Jacob RN - 05/15/2024 1:14 PM EDT Noted, per rehab discharge: She can be discharge to home with PT/OT She will be receiving home health care service with [facility] and referral was also made to [facility] for additional homemaking, personal care and VEHICLE WINDOW TINTER services. Pt. Declined services. FYI for HDF 05/23/24 * Telephone Encounter - Timoteo Blank - 05/15/2024 1:04 PM EDT Tc from [facility] with [facility] calling to inform they were unable to admit pt into services, Karlie stated they managed to get in contact with pt but pt gave another excuse on why she wasn't able to accept services. If any questions you can contact Karlie at [phone]. documented in this encounter Plan of Treatment Upcoming Encounters Date Type Department Care Team (Late st Contact Info) Description 12/06/2024 10:45 AM EST Office Visit [facility] MEDICINE [address] [place] [address] Aliza Paul DO [address] [place] [address] 02/08/2025 3:00 PM EDT Office Visit [facility] OPTOMETRY [address] [place], [place] [phone] Kimberly Gonzalez, OD [address] [place] [address] documented as of this encounter Visit Diagnoses Not on filedocumented in this encounter Additional Health Concerns Assessment Noted Time PHQ-9 Depression Total Score: 4 03/09/20 24 9:14 AM EDT documented as of this encounter Care Teams Program Planner Relationship Specialty Start Date End Date Aliza Paul DO [address] [place], [place] [phone] PCP - General Family Medicine 02/23/12 Lesley Ingram Community Health Worker 05/17/24 Rosi Castro RN [address] [place] [address] Program Planner 05/17/24 [facility] Care 07/27/24 documented as of this encounter
--- OUTSIDE RECORDS SUMMARY | 2024-12-05 14:54 | XMS_ITS | Encounter Summary ---
Author Organization [employer] Address [address] [place] [address] [place] [address] Care Team Providers Care Pit Supervisor Name Role Phone Aliza Paul DO Primary Care Provider [phone] eLsley Ingram Unavailable Unavailable Rosi Castro RN Unavailable [phone] Reason for Visit * Reason Onset Date Comments Referral 11/06/2024 Encounter Details Date Type Department Care Team ([facility] st Contact Info) Description 11/06/2024 Telephone [facility] MEDICINE [address] [place], [place] [phone] Aliza Paul DO [address] [place] [address] Referral Social History Tobacco Use Types Packs/Day Years [...] is your housing situation today? I have ezno barboza 03/09/[address] you [...] encounter Miscellaneous Notes * Telephone Encounter - Rakel Guerra RN - 11/06/2024 1:43 PM EST Incoming call from [facility]NA Pat in regards to below message. RN attempted to provide verbal for covarrubias catheter irrigation however VNA needs directions. PCP is unable to provide directions for covarrubias irrigation. RN recommended VNA contact patients urologist to obtain covarrubias irrigation directions. VNA Pat verbalized understanding and will call urology office. VNA Pat to f/u PRN. * Telephone Encounter - Rakel Guerra RN - 11/06/2024 12:32 PM EST TC returned to nurse Shameka [phone] in regards to below message. Pat did not answer, RN left requesting CB to red team nurses. Pat to f/u PRN. * Telephone Encounter - Merlene Kolb - 11/06/2024 12:03 PM EST Tc from Nurse (shameka) requesting an order for a urination catheter irrigation If any questions please contact Shameka (nurse) [phone] documented in this encounter Plan of Treatment Upcoming Encounters Date Type Department Care Team (Late st Contact Info) Description 12/06/2024 10:45 AM EST Office Visit [facility] MEDICINE [address] [place] [address] Aliza Paul DO [address] [place] [address] 02/08/2025 3:00 PM EDT Office Visit [facility] OPTOMETRY [address] [place], [place] [phone] Kimberly Gonzalez OD [address] [place] [address] documented as of this encounter Visit Diagnoses Not on filedocumented in this encounter Additional Health Concerns Assessment Noted Time PHQ-9 Depression Total Score: 15 024 9:20 AM EDT documented as of this encounter Care Teams Pit Supervisor Relationship Specialty Start Date End Date Aliza Paul DO [address] [place] [address] PCP - General Family Medicine 02/23/12 Lesley Ingram Community Health Worker 05/17/24 Rosi Castro, RICHARDSON [address] [place] [address] Garment Sewer Hand 05/17/24 [facility] Care 07/27/24 documented as of this encounter
--- OUTSIDE RECORDS SUMMARY | 2024-12-05 14:54 | XMS_ITS | Encounter Summary ---
Author Organization [employer] Address [address] [place] [address] [place] [address] Care Team Providers Care Coatings Inspector Name Role Phone Aliza Paul DO Primary Care Provider [phone] Lesley Ingram Unavailable Unavailable Rosi Castro RN Unavailable [phone] Reason for Visit * Reason Onset Date Comments Medication Question 09/28/2024 Encounter Details Date Type Department Care Team ([facility] Contact Info) Description 09/28/2024 Telephone [facility] MEDICINE [address] [place], [place] [phone] Aliza Paul DO [address] [place] [address] Medication Question Social History Tobacco Use Types Packs/Day Years [...] Telephone Encounter - Rakel Guerra RN - 09/29/2024 8:55 AM EST TC placed to pt [phone] in regards to below message. Pt did not answer, RN left VM requesting CB to red team nurses. Pt to f/u PRN. * Telephone Encounter - Ling Guido - 09/28/2024 4:43 PM EST Tc from pt requesting to speak to nurse regarding medication dosage. Pt also requesting [facility] appointment with PCP on 10/03. Stated anxiety while waiting on hold for PT1 transportation Contact pt at [phone] documented in this encounter Plan of Treatment Upcoming Encounters Date Type Department Care Team (Late st Contact Info) Description 12/06/2024 10:45 AM EST Office Visit [facility] MEDICINE [address] [place] [address] Aliza Paul DO [address] [place] [address] 02/08/2025 3:00 PM EDT Office Visit [facility] OPTOMETRY [address] [place] [address] Kimberly Gonzalez OD [address] [place] [address] documented as of this encounter Visit Diagnoses Not on filedocumented in this encounter Additional Health Concerns Assessment Noted Time PHQ-9 Depression Total Score: 15 024 9:20 AM EDT documented as of this encounter Care Teams Coatings Inspector Relationship Specialty Start Date End Date Aliza Paul DO [address] [place] [address] PCP - General Family Medicine 02/23/12 Lesley Ingram Community Health Worker 05/17/24 Rosi Castro RN [address] [place] [address] Environmental Engineering Intern 05/17/24 [facility] Care 07/27/24 documented as of this encounter
--- OUTSIDE RECORDS SUMMARY | 2024-12-05 14:54 | XMS_ITS | Encounter Summary ---
Author Organization [employer] Address [address] [place] [address] [place] [address] Care Team Providers Care Slag Wheeler Name Role Phone Aliza Paul DO Primary Care Provider [phone] Lesley Ingram Unavailable Unavailable Rosi Castro RN Unavailable [phone] Reason for Visit * Reason Onset Date Comments Nurse Triage 11/20/2024 Encounter Details Date Type Department Care Team ([facility] st Contact Info) Description 11/20/2024 Telephone [facility] MEDICINE 230 [place], [place] [phone] Aliza Paul DO [address] [place] [address] Nurse Triage Social History Tobacco Use Types Packs/Day Years [...] Telephone Encounter - Rakel Guerra RN - 11/21/2024 10:29 AM EST TC placed to patient [phone] to status check below. Patient reports she did NOT go to the emergency room yesterday. Patient reports she obtained her medications Rx'd by the ED on 11/19/24 (cefuroxime axetil, prednisone and albuterol inhaler). Patient reports she is now taking the medications asdirected and her SOB has resolved. Patient continues with dry cough. Patient denies any chest pain.Patient reports she would like an appointment with PCP as she needs to discuss many things . Patient advised she is scheduled to see PCP on 12/06/23 at 10:45am. Patient is requesting uber transportation. Patient advise we cannot book uber for patient as she has PT1. Patient reports being on hold with PT1 causes her to become anxious. RN advised patient to have HUMAN RESOURCES TEAM MEMBER call PT1 for patient to facilitate transportation. Patient agreeable to this plan and will return call to [facility] if s/s worsen. Patientto f/u PRN. * Telephone Encounter - Bria Chester LPN - 11/20/2024 10:08 AM EST Please obtain [facility] ED note from visit 11/19/24. * Telephone Encounter - Bria Chester LPN - 11/20/2024 10:04 AM EST Triage call returned to patient who reports that she was seen in [facility] ED yesterday and was found to have UTI and was also prescribed Prednisone and ABT and a new inhaler for breathing cough and wheezing. Has not started medications as she did not pick them up as RX was closed. Patient reports she got a nebulizer treatment in ED and that was helpful but now at home again having difficulty. Severe wheezing audible and patient speaking in short interrupted sentences. Advised to call 911 and patientagrees to return to ED for further care. Patient does not have nebulizer in home at time of call. Advised to have HUMAN RESOURCES TEAM MEMBER pick up man medications today for home use as ordered. Team tasked to follow as needed for status check . Protocol Used: Breathing Difficulty (Adult) Protocol-Based Disposition: Go to ED/[facility] Now (or to Office with PCP Approval) Positive Triage Question: * Patient sounds very sick or weak to the triager * All higher-acuity triage questions were negative Care Advice Discussed: * Reasons To Call Back - You become worse * Telephone Encounter - Merlene Kolb - 11/20/2024 9:50 AM EST Symptom: Wheezing Outcome: Transfer to a nurse or provider NOW! Reason: Struggling for each breath (severe trouble breathing) The caller accepted this outcome. documented in this encounter Plan of Treatment Upcoming Encounters Date Type Department Care Team (Late st Contact Info) Description 12/06/2024 10:45 AM EST Office Visit [facility] MEDICINE 230 [place], [place] [phone] Aliza Paul DO [address] [place], [place] [phone] 02/08/2025 3:00 PM EDT Office Visit [facility] OPTOMETRY [address] [place], [place] [phone] Kimberly Gonzalez OD [address] [place] [address] documented as of this encounter Visit Diagnoses Not on filedocumented in this encounter Additional Health Concerns Assessment Noted Time PHQ-9 Depression Total Score: 15 024 9:20 AM EDT documented as of this encounter Care Teams Slag Wheeler Relationship Specialty Start Date End Date Aliza Paul DO [address] [place] [address] PCP - General Family Medicine 02/23/12 Lesley Ingram Community Health Worker 05/17/24 Rosi Castro RN [address] [place] [address] Template Clerk 05/17/24 [facility] documented as of this encounter
--- OUTSIDE RECORDS SUMMARY | 2024-12-05 14:54 | XMS_ITS | Encounter Summary ---
Author Organization [employer] Address [address] [place] [address] 7 [place] [address] Care Team Providers Care Child Care Provider Name Role Phone Aliza Paul DO Primary Care Provider [phone] Lesley Ingram Unavailable Unavailable Rosi Castro RN Unavailable [phone] Encounter Details Date Type Department Care Team (Late st Contact Info) Description 11/07/[address] [facility] MEDICINE [address] [place], [place] [phone] Aliza Paul DO [address] [place], [place] [phone] Social History Tobacco Use Types Packs/Day Years [...] encounter Miscellaneous Notes * Telephone Encounter - Vianney Blank - 11/07/2024 9:14 AM EST A new referral is needed for this patient to enroll care in Medication Therapy Management (MTM) clinic. Please send at your earliest convenience. documented in this encounter Plan of Treatment Upcoming Encounters Date Type Department Care Team (Late st Contact Info) Description 12/06/2024 10:45 AM EST Office Visit [facility] MEDICINE [address] [place] [address] Aliza Paul DO [address] [place] [address] 02/08/2025 3:00 PM EDT Office Visit [facility] OPTOMETRY [address] [place] [address] Kimberly Gonzalez, RIYA [address] [place] [address] documented as of this encounter Visit Diagnoses Not on filedocumented in this encounter Additional Health Concerns Assessment Noted Time PHQ-9 Depression Total Score: 15 024 9:20 AM EDT documented as of this encounter Care Teams Child Care Provider Relationship Specialty Start Date End Date Aliza Paul DO [address] [place] [address] PCP - General Family Medicine 02/23/12 Lesley Ingram Community Health Worker 05/17/24 Rosi Castro RN [address] [place] [address] Boiler Operator 05/17/24 [facility] 07/27/24 documented as of this encounter
--- OUTSIDE RECORDS SUMMARY | 2024-12-05 14:54 | XMS_ITS | Clinical Summary ---
Author Organization [employer] Address [address] [place] [address] 7[address] [place] [address] Care Team Providers Care Job Foreman Name Role Phone BeverlyAliza Primary Care Provider [phone] Lesley Ingram Unavailable Unavailable Rosi Castro RN Unavailable [phone] Allergies No known active allergies Medications * This document contains information received from the source organization and may not represent a complete record from that organization. atorvastatin (Lipitor) 20 MG tablet Take 20 mg by mouth at bedtime. 07/01/20 22 Active Fiber-Lax 625 MG tablet TAKE ONE TABLET TWICE DAILY 07/15/20 22 Active famotidine (Pepcid) 40 MG tablet TAKE ONE TABLET AT BEDTIME 07/15/20 22 Active Probiotic, Lactobacillus, capsule As directed Active Proventil HFA 108 (90 Base) MCG/ACT inhaler INHALE TWO PUFFS BY MOUTH EVERY 4 TO 6 HOURS NEEDED 6.7 g 03/04/20 23 Active cetirizine (ZyrTEC) 10 MG tablet TAKE ONE TABLET BY MOUTH EVERY DAY 90 tablet 3 05/03/20 23 Active cholecalciferol (Vitamin D-3) 50 MCG (1999 UT) capsule TAKE ONE CAPSULE DAILY 90 capsule 1 03/23/20 24 Active Lidoderm 5 % patchIndications :Closed supracondylar fracture of right humerus with routine healing APPLY 2 PATCHES TO SKIN. LEAVE ON FOR 12 HOURS, THEN OFF FOR 12 HOURS DIRECTED FOR PAIN. 60 patch 3 05/23/20 24 Active venlafaxine XR (Effexor XR) 75 MG 24 hr capsule Take 1 capsule (75 mg) by mouth Once per day. 30 capsule 3 05/23/20 24 2024 Active HYDROmorphone (Dilaudid) 4 MG tabletIndication s:Neck pain Take 1 tablet (4 mg) by mouth if needed in the morning and at bedtime for severe pain. 28 tablet 05/23/20 24 Active nystatin (Mycostatin) cream Apply 1 Application. topically Once per day. 07/24/20 24 Active methIMAzole (Tapazole) 10 MG tablet Take 1 tablet by mouth Once per day. Active propranolol (Inderal) 10 MG tablet Take 1 tablet by mouth 3 times daily. Active Blood Pressure Monitoring [place]Blood [place] [facility] [place] as prescribed 1 each 09/07/20 24 Active lisinopril (Prinivil) 10 MG tablet Take 1 tablet (10 mg) by mouth Once per day. 90 tablet 3 09/07/20 24 2024 Active hydrOXYzine HCl (Atarax) 50 MG tabletIndication s:Anxiety disorder, unspecified type Take 1 tablet (50 mg) by mouth every 6 (six) hours if needed for anxiety. 60 tablet 3 09/14/20 24 Active baclofen (Lioresal) 10 MG tabletIndication s:Muscle spasm TAKE ONE TABLET THREE TIMES DAILY IN THE MORNING, AT NOON, AND AT BEDTIME NEEDED FOR MUSCLE SPASMS 60 tablet 3 09/27/20 24 Active acetaminophen (Tylenol 8 Hour) 650 MG ER tabletIndication s:Closed supracondylar fracture of right humerus with routine healing TAKE ONE TABLET EVERY TWELVE HOURS NEEDED FOR PAIN 60 tablet 3 10/03/20 24 Active busPIRone (Buspar) 10 MG tablet TAKE ONE TABLET TWICE DAILY 60 tablet 3 10/09/20 24 Active gabapentin (Neurontin) 300 MG capsule TAKE THREE CAPSULES THREE TIMES DAILY 270 capsule 3 10/09/20 24 Active naproxen (Naprosyn) 500 MG tabletIndication s:Closed supracondylar fracture of right humerus with routine healing TAKE ONE TABLET TWICE DAILY IN THE MORNING AND AT BEDTIME WITH FOOD NEEDED FOR PAIN 30 tablet 10/24/20 24 Active ARIPiprazole (Abilify) 2 MG tablet TAKE ONE TABLET BY MOUTH ONCE DAILY 30 tablet 1 11/02/20 24 Active Ascorbic Acid (vitamin C) 1000 MG tablet Take 1 tablet by mouth Once per day. 11/16/19 25 Active clotrimazole (Lotrimin) 1 % cream APPLY TOPICALLY TO AFFECTED AREA(s) TWICE DAILY FOR 28 DAYS 10/19/20 24 Active ipratropium-albu terol (Duo-Neb) 0.5-2.5 mg/3 mL nebulizer solution INHALE THE CONTENTS OF 1 VIAL EVERY 4 HOURS WHILE AWAKE NEEDED FOR SHORTNESS OF BREATH/WHEEZI NG 11/25/19 25 Active Ascorbic Acid (vitamin C) 500 MG tablet Take 500 mg by mouth in the morning. 09/09/20 22 2024 Discontinued(M ed list cleanup (will not trigger notification to Pharmacy)) Active Problems Problem Noted Date Diagnosed Date Thyrotoxicosis with thyrotoxic crisis 09/07/2024 Assessment & Plan (09/07/2024 10:07 PM EDT): On propranolol + Methimazole, fu by [facility]. We'll get OV notes sp hospital discharge. Candidiasis of breast 09/07/2024 Assessment & Plan (09/07/2024 10:08 PM EDT): Keep area clean and dry. Use clotrimazole cream bid to affected area. Cloudy urine 09/07/2024 Assessment & Plan (09/07/2024 10:06 PM EDT): UA doesn't show UTI. FU Urine Cx results. Advised to stay hydrated ANISA (acute kidney injury) 09/07/2024 Assessment & Plan (09/07/2024 10:19 PM EDT): Sec to UTI, DHT and thyrotoxicosis. Recheck BMP, f GFR is above 40, will restart lisinopril History of stroke with residual deficit 05/23/20 24 Chronic indwelling Quinonez catheter 05/23/2024 History of cervical discectomy 04/13/2024 Spinal stenosis, cervical region 03/23/2024 Fusion of spine, cervical region 03/23/2024 Need for assistance with personal care 4 PTSD (post-traumatic stress disorder) 10/22/2023 Assessment & Plan (08/22/2024 9:33 AM EDT): During IBH Consult Cheryl presenting with excessive worry/anxiety, difficulty controlling worry, anxiety/worry associated to restlessness and/or feeling keyed-up/On edge , easily fatigued , difficulty concentrating and/or mind going blank , and sleep disturbance difficulty falling asleep, and sense of dread ; for a period of 18+ mo, for most or all symptoms in the context of financial concern, illness or family illness, and lack of social supports. Pt carries a diagnosis of PTSD and Major Depression per her medical chart. Her medical condition ihas been worsening lately leading to an increase of her anxiety (pt had a stroke in 05/2024). Pt was self-referred to [facility] programs, but reports no appointment has been made. Currently under CM/C care to assist with SDOH needs. Lack of family and social support are main trigger for sxs at this time. clinician provided active and reflective listening during today's session. Reviewed and assessed for risk, current stressors, trigger and social support using open-ended questions. Pt will be referred out for OP individual therapy and psychiatry services. Assessment & Plan (05/23/2024 3:51 PM EDT): During IBH Consult Cheryl presenting with excessive worry/anxiety, difficulty controlling worry, restless/keyed up/On edge, easily fatigued, irritability, and sleep disturbance difficulty falling asleep; for a period of 18+ mo, for all symptoms in the context of illness or family illness and lack of social support and chronic mental health conditions. Cheryl carries a diagnosis of PTSD and Major Depression per her medical chart. 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 Her medical condition ihas been worsening lately leading to an increase of her anxiety. MH services received in the past with [facility], currently she's not satisfied with [facility]. Pt opted for same-day appointments with [facility] (information given. Cheryl screened positive for SDOH and was offered a referral for CM to assist with current needs. clinician provided active and reflective listening during today's session. Reviewed and assessed for risk, current stressors, trigger and social support using open-ended questions. PLAN: (check all that apply) Behavioral Health Integration Plan Patient Self Plan Patient to utilize skills provided in intervention , [facility], and Patient to reach out to [facility] as needed Pt prefers to be self-referred for OP individual therapy and psychiatry to the [facility] programs. Pt was offered external referral; clinician informed about wait times and options to receive MH services through [facility] intake. Assessment & Plan (03/09/2024 3:06 PM EDT): With significantly worsened anxiety s/p CVA -she denies any SI/HI -she has the number for crisis -continue duloxetine daily -continue abilify daily -continue seroquel BID -continue low-dose klonopin BID with hydroxyzine prn -f/u with therapist as scheduled, advised discuss referral to new psychiatrist Chronic bilateral low back pain with bilateral s ciatica 10/22/2023 Chronic gastroesophageal reflux disease 11/27/19 23 Fatty liver 11/27/2022 Cerebral microvascular disease 11/27/2022 Chronic migraine 11/27/2022 BMI 33.0-33.9,adult 11/27/2022 Essential hypertension 11/27/2022 Assessment & Plan (09/07/2024 10:17 PM EDT): Initially uncontrolled as she was rushing to appt and was handling several issues at the intake time. FU BP is better but not at goal. Check BMP today, will restart lisinopril if GFR is above 40 FU with PCP in 4w D/w patient re go to ED if she develops weakness, CP, blurry vision New BP machine sent to pharmacy to check BP three times per week. Assessment & Plan (03/09/2024 3:04 PM EDT): BP controlled -continue lisinopril 10 mg daily -continue HCTZ 12.5 mg daily -check basic labs prior to next visit Neurogenic bladder 11/27/2022 Assessment & Plan (09/07/2024 10:06 PM EDT): Sp CVA? Patient has an indwelling Quinonez cath. Neurology to fu, ro other neurodegenerative disease Anxiety 10/28/2022 Assessment & Plan (09/08/2024 2:44 PM EDT): During IBH Consult Cheryl presenting with excessive worry/anxiety, difficulty controlling worry, anxiety/worry associated to restlessness and/or feeling keyed-up/On edge , easily fatigued , difficulty concentrating and/or mind going blank , muscle tension , and sleep disturbance difficulty falling asleep, and sense of dread ; for a period of 18+ mo, for most or all symptoms in the context of financial concern, illness or family illness, and lack of social supports. Pt carries a diagnosis of PTSD and Major Depression per her medical chart. Her medical condition has been worsening lately leading to an increase of her anxiety (pt had a stroke in 05/2024). 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 She wasn't aware of practicing same care towards herself I wasn't kind to myself . Discussed importance of challenging negative thoughts and re-frame the way she talks to herself. Practiced grounding exercises during appointment, provided toolkit for anxiety. clinician provided active and reflective listening during today's session. Reviewed and assessed for risk, current stressors, trigger and social support using open-ended questions. Pt started OP therapy with [facility]. Sees a therapist weekly, she will also be referred to psychiatry within same agency. Assessment & Plan (09/07/2024 10:16 PM EDT): Triggered by pain? Opiates? Restart low dose Abilify at bedtime (that will help with concomitant insomnia) and titrate up as tolerated, caution with EP sxs. Continue Effexor, consider restarting buspar. FU with PCP Patient seen by team and referred for OP therapy She feels safe at home Assessment & Plan (08/22/2024 9:33 AM EDT): During IBH Consult Cheryl presenting with excessive worry/anxiety, difficulty controlling worry, anxiety/worry associated to restlessness and/or feeling keyed-up/On edge , easily fatigued , difficulty concentrating and/or mind going blank , and sleep disturbance difficulty falling asleep, and sense of dread ; for a period of 18+ mo, for most or all symptoms in the context of financial concern, illness or family illness, and lack of social supports. Pt carries a diagnosis of PTSD and Major Depression per her medical chart. Her medical condition ihas been worsening lately leading to an increase of her anxiety (pt had a stroke in 05/2024). Pt was self-referred to [facility] programs, but reports no appointment has been made. Currently under CM/C care to assist with SDOH needs. Lack of family and social support are main trigger for sxs at this time. clinician provided active and reflective listening during today's session. Reviewed and assessed for risk, current stressors, trigger and social support using open-ended questions. Pt will be referred out for OP individual therapy and psychiatry services. Assessment & Plan (05/23/2024 3:51 PM EDT): During IBH Consult Cheryl presenting with excessive worry/anxiety, difficulty controlling worry, restless/keyed up/On edge, easily fatigued, irritability, and sleep disturbance difficulty falling asleep; for a period of 18+ mo, for all symptoms in the context of illness or family illness and lack of social support and chronic mental health conditions. Cheryl carries a diagnosis of PTSD and Major Depression per her medical chart. 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 Her medical condition ihas been worsening lately leading to an increase of her anxiety. MH services received in the past with [facility], currently she's not satisfied with [facility]. Pt opted for same-day appointments with [facility] (information given. Cheryl screened positive for SDOH and was offered a referral for CM to assist with current needs. clinician provided active and reflective listening during today's session. Reviewed and assessed for risk, current stressors, trigger and social support using open-ended questions. PLAN: (check all that apply) Behavioral Health Integration Plan Patient Self Plan Patient to utilize skills provided in intervention , Patient to reach out to [facility] team as needed, and Patient to reach out to [facility] as needed Pt prefers to be self-referred for OP individual therapy and psychiatry to the [facility] programs. Pt was offered external referral; clinician informed about wait times and options to receive MH services through [facility] intake. Assessment & Plan (10/26/2023 10:38 AM EST): PLAN: Continue with current services (defined as services in the past 12 months) , Behavioral Health Integration Plan Patient Self Plan Patient to reach out to [facility] team as needed, Patient to engage in OP therapy , and Patient to follow-up with external team, clinician to reach our to current therapist for Cheryl at [facility] to support process of reconnecting with psych med management provider Diastolic dysfunction 04/09/2016 Elevated fasting glucose 04/09/2016 Gastroesophageal reflux disease 04/09/2016 Hyperlipidemia 04/09/2016 Left ventricular hypertrophy 04/09/2016 Major depression, recurrent, chronic 04/09/2016 Assessment & Plan (08/22/2024 9:33 AM EDT): During IBH Consult Cheryl presenting with excessive worry/anxiety, difficulty controlling worry, anxiety/worry associated to restlessness and/or feeling keyed-up/On edge , easily fatigued , difficulty concentrating and/or mind going blank , and sleep disturbance difficulty falling asleep, and sense of dread ; for a period of 18+ mo, for most or all symptoms in the context of financial concern, illness or family illness, and lack of social supports. Pt carries a diagnosis of PTSD and Major Depression per her medical chart. Her medical condition ihas been worsening lately leading to an increase of her anxiety (pt had a stroke in 05/2024). Pt was self-referred to [facility] programs, but reports no appointment has been made. Currently under [facility] care to assist with SDOH needs. Lack of family and social support are main trigger for sxs at this time. clinician provided active and reflective listening during today's session. Reviewed and assessed for risk, current stressors, trigger and social support using open-ended questions. Pt will be referred out for OP individual therapy and psychiatry services. Assessment & Plan (05/23/2024 3:51 PM EDT): During IBH Consult Cheryl presenting with excessive worry/anxiety, difficulty controlling worry, restless/keyed up/On edge, easily fatigued, irritability, and sleep disturbance difficulty falling asleep; for a period of 18+ mo, for all symptoms in the context of illness or family illness and lack of social support and chronic mental health conditions. Cheryl carries a diagnosis of PTSD and Major Depression per her medical chart. 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 Her medical condition ihas been worsening lately leading to an increase of her anxiety. MH services received in the past with [facility], currently she's not satisfied with [facility]. Pt opted for same-day appointments with [facility] (information given. Cheryl screened positive for SDOH and was offered a referral for CM to assist with current needs. clinician provided active and reflective listening during today's session. Reviewed and assessed for risk, current stressors, trigger and social support using open-ended questions. PLAN: (check all that apply) Behavioral Health Integration Plan Patient Self Plan Patient to utilize skills provided in intervention , Patient to reach out to [facility] team as needed, and Patient to reach out to [facility] as needed Pt prefers to be self-referred for OP individual therapy and psychiatry to the [facility] programs. Pt was offered external referral; clinician informed about wait times and options to receive MH services through [facility] intake. Resolved Problems Problem Noted Date Diagnosed Date Resolved Date Bradycardia 10/29/2022 11/27/2022 Assessment & Plan (10/29/2022 2:58 PM EST): EKG w HR 50s, Sec to bblocker? Hold metoprolol tomorrow and lower to 50mg. FU w PCP Reconsult prn, palpitations, AGUILLON Closed supracondylar fractur e of right humerus with routine healing 10/29/2022 10/22/2023 Assessment & Plan (11/19/2022 10:16 AM EST): Wants to fu with [facility] instead of [facility], referral sent. Continue OT by [facility], needs evaluation for mobility and independence. Ibuprofen 800 mg bid +lidocaine patch. Can use diclofenac gel Prn FU w PCP Assessment & Plan (10/29/2022 2:51 PM EST): FU with [facility] next week Continue on the sling Rx for percocet bid only x 1w. She's aware that she needs to fu w orhto for pain management, that may or not include opiates. [facility] to evaluate for OT/PT. Non weight bearing on that arm. Heart disease 10/28/2022 11/27/2022 Migraines 10/28/2022 11/27/2022 HTN (hypertension), benign 04/09/2016 0 11/27/2022 Assessment & Plan (11/19/2022 10:14 AM EST): Needs to have BP checked, it was uncontrolled at last appt. Continue metoprolol 50mg. Unclear if she's still taking Lisinopril and amlodipine. May need to send [facility] for med rec and VS check until her mobility status improves after OT. FU w PCP as scheduled Assessment & Plan (10/29/2022 2:57 PM EST): Uncontrolled today,likely related to not taking meds today + pain. Restart meds tomorrow, 50mg of metoprolol only, continue lisinopril 40mg + amlodipine 10mg FU BP w [facility] and adjust meds Counseled to avoid using recreational substances or ETOH FU w PCP in 1m Cerebrovascular disease 04/09/201611/09 Severe obesity 04/09/2016 11/27/2022 Steatosis of liver 04/09/2016 3 Encounters * This document contains information received from the source organization and may not represent a complete record from that organization. Date Type Department Care Team Description 11/28/2024 Patient Outreach [place] [address] Aliza Paul DO Transition Of Care (Tcm) (HDF- scheduled -SDOH unable to complete. ) 11/23/2024 Orders Only GENERIC EXTERNAL DATA DEPARTMENT Provider, Generic External Data 11/20/2024 Telephone [place] [address] Aliza Paul DO Nurse Triage 11/17/2024 Telephone [facility] [address] [place] [id number] Aliza Paul DO Nurse Triage 11/07/[address] [address] Aliza Paul DO 11/06/[address] [address] Aliza Paul, Referral 11/02/2024 Refill [facility] [address] [place] [address] Delmis Cat MD 11/02/2024 Patient Outreach [facility] [address] [place] [address] Nerissa Robertson, yarder operator Of Care ([facility]) 10/31/2024 Orders Only GENERIC EXTERNAL DATA DEPARTMENT Provider, Generic External Data 10/26/2024 Telephone [facility] [address] [place] [address] Aliza Paul DO Nurse Triage 10/23/2024 Refill [facility] [address] [place] [address] Aliza Paul DO Closed supracondylar fracture of right humerus with routine healing 10/19/2024 Patient Outreach [facility] [address] [place] [address] Aliza Paul DO Care Coordination ([facility] outreach for SDOH PT-1 and food needs-referral completed /) 10/19/2024 Telephone [facility] [address] [place] [address] Aliza Paul DO PT-1 10/19/2024 Refill [facility] [address] [place] [address] Aliza aPul DO Other chronic pain 10/18/2024 Telephone [facility] [address] [place] [address] Talya Scherer, PharmD 10/17/2024 Telephone [facility] [address] [place] [address] Aliza Paul DO FYI 10/13/2024 Telephone [facility] [address] [place] [address] Aliza Paul DO Medication Question 10/07/2024 Refill [facility] [address] [place] [address] Aliza Paul DO 10/03/2024 Refill [facility] [address] [place] [address] Rakel Guerra, RICHARDSON 10/03/2024 Telephone [facility] [address] [facility] [place] [address] Aliza Paul, No Show 10/02/2024 Refill [facility] [place] [address] Aliza Paul, Closed supracondylar fracture of right humerus with routine healing 09/29/2024 Travel 09/29/2024 Patient Outreach [facility] [address] [place] [address] Aliza Paul, Care Coordination ([facility]/Grace Ingram, program graduation) 09/29/2024 Refill [facility] [place] [address] Aliza Paul DO Closed supracondylar fracture of right humerus with routine healing; Muscle spasm 09/28/2024 Telephone [facility] [place] [address] Aliza Paul, Medication Question 09/27/2024 Telephone [facility] [place] [address] Aliza Paul DO Nurse Triage 09/27/2024 Refill [facility] [place] [address] Aliza Paul DO Muscle spasm 09/26/2024 Telephone [facility] [place] [address] Rocio Ingram, RICHARDSON Care Management (C3- f/u call) 09/22/2024 Travel 09/20/2024 Telephone [facility] [place] [address] Aliza Paul DO FYI 09/15/2024 Patient Outreach [facility] [place] [address] Aliza Paul, SDOH Concerns (C3/MICHAEL Blake f/u call ) 09/15/2024 Telephone [facility] [place] [address] Rocio Ingram, RN Care Management ([facility]- f/u call) 09/14/2024 Refill [facility] [address] [facility] [place] [address] Aliza Paul DO Anxiety disorder, unspecified type; Closed supracondylar fracture of right humerus with routine healing 09/13/[address] [address] Aliza Paul DO Nurse Triage 09/12/[address] [address] Angelica Mendoza, RICHARDSON Results 09/12/2024 Orders Only [address] [address] Delmis Cat MD 09/11/[address] [address] Aliza Paul DO 09/08/[address] [address] Angelica Mendoza, RICHARDSON [facility] 09/08/[address] [address] Aliza Paul DO PT1 09/08/[address] [address] Angelica Mendoza, RICHARDSON Results 09/07/2024 10:45 AM EDT Office Visit [address] [address] Delmis Cat MD Thyrotoxicosis with thyrotoxic crisis, unspecified thyrotoxicosis type (Primary Dx); Essential hypertension; ANISA (acute kidney injury) (CMS/HCC); Candidiasis of breast; Cloudy urine; Anxiety; Neurogenic bladder; Major depression, recurrent, chronic (CMS/HCC) 09/07/2024 Orders Only [address] [address] Delmis Cat MD 09/07/[address] [address] Aliza Paul DO Medical Question 09/07/2024 Telephone [facility] MEDICINE [address] [place] [address] Aliza Paul DO Appointment Confirmation 09/07/2024 Telephone [facility] [address] [place] [address] Aliza Paul DO Record Request 09/07/2024 Travel 09/07/2024 Telephone [facility] [address] [place] [address] Delmis Cat MD No Show 09/06/2024 Telephone [facility] MEDICINE [address] [place], [place] [phone] Rocio Ingram RN Care Management ([facility]- f/u call [facility]) 09/04/2024 Refill [facility] [address] [place], [place] [phone] Aliza Paul DO Closed supracondylar fracture of right humerus with routine healing from Last 3 Months Immunizations Name Administration Dates Next Due DTaP 09/06/2022 Influenza Quadrivalent Adjuvanted 09/23/2017 Influenza injectable quadrivalent preservative f ree 09/23/2017 Influenza, IIV3, injectable 09/23/2017, 4 Influenza, Split (incl. purified surface antigen ) 08/02/2012 Pfizer Covid-19 Vaccine 12+ Bivalent 10/17/2022 Pfizer Covid-19 Vaccine 12+ shukri-sucrose (Dutta C ap) 10/17/2022 Pneumococcal Polysaccharide PPSV23 12/16/2021 Rabies - IM Fibroblast Culture 09/06/2022 Rabies, intramuscular 09/06/2022 Tdap 09/06/2022,12/16/2021 Social History Tobacco Use Types Packs/Day Years Used Date Smoking Tobacco: Never Passive Smoke Exposure: Never Smokeless Tobacco: Never Tobacco Cessation:Counseling Given: Not Answered Alcohol Use Standard Drinks/Week Comments Never 0 [...] Orientation Straight 09/07/2022 10 :22 AM EDT Last Filed Vital Signs Vital Sign Reading Time Taken Comments Blood Pressure 140/95 09/07/2024 12:17 PM EDT Pulse 63 09/07/2024 11:25 AM EDT Temperature 36.1 ??C (97 ??F) 09/07/2024 11:25 AM EDT Respiratory Rate 18 05/23/2024 9:08 AM EDT Oxygen Saturation 97% 09/07/2024 11:25 AM EDT Inhaled Oxygen Concentration - - Weight 83.9 kg (185 lb) 09/07/2024 11:25 AM EDT Height 160 cm (5' 3 ) 09/07/2024 11:25 AM EDT Body Mass Index 32.77 09/07/2024 11:25 AM EDT Plan of Treatment Upcoming Encounters Date Type Department Care Team (Late st Contact Info) Description 12/06/2024 10:45 AM EST Office Visit [facility] MEDICINE [address] [place] [address] Aliza Paul, [address] [place] [address] 02/08/2025 3:00 PM EDT Office Visit [facility] OPTOMETRY [address] [place] [address] Kimberly Gonzalez, OD [address] [place] [address] Health Maintenance Due Date Last Done Comments CT Colonography 1965 Colonoscopy 1965 Colorectal Cancer Screening 1965 Dental Oral Exam 1965 Dental Prophylaxis 1965 Dental X-Ray: Bitewings 1965 FIT DNA/Cologuard 1965 FIT 1965 FOBT 1965 Sigmoidoscopy 1965 Alcohol/Substance Use Screening 1977 Hepatitis A Vaccines (1 of 2 - Risk 2-dose series) 1984 Hepatitis B Vaccines (1 of 3 - 19+ 3-dose series) 1984 Pap Smear 1986 Mammogram 2005 Dental X-Ray: Full Mouth 12/02/2013 12/01/2010 Zoster Vaccines (1 of 2) 2015 Cervical Cancer Screening 12/10/2022 HPV/Cotest 12/10/2022 12/10/2017 COVID-19 Vaccine ( season) 2024 10/17/2022, 10/17/2022 Influenza Vaccine (#1) 2024 7, 09/23/2017, 09/23/2017, Additional history exists Depression Monitoring (PHQ-9) 02/20/2025 08/22/2024, 08/22/2024 SDOH Screening 05/17/2025 05/17/2024 Depression Screening 08/22/2025 08/22/2024, 08/22/20 24 Tobacco Screening 09/07/2025 09/07/2024 Lipid Panel 01/28/2027 01/28/2022 DTaP/Tdap/Td Vaccines (4 - Td or Tdap) 09/06/2032 09/06/2022, 09/06/2022, 12/16/2021 RSV Patients and Patients Aged 60 years or older (1 - 1-dose 75+ series) 2040 Pneumococcal Vaccine: Pediatrics (0 to 5 Years) and At-Risk Patients (6 to 64 Years) Aged Out 12/16/2021 No longer eligible based on patient's age to complete this topic HIV Screening Completed 01/28/2022 Hepatitis C Screening Completed 01/28/2022 HIB Vaccines Aged Out No longer eligi ble based on patient's age to complete this topic HPV Vaccines Aged Out No longer eligi ble based on patient's age to complete this topic IPV Vaccines Aged Out No longer eligi ble based on patient's age to complete this topic Meningococcal Vaccine Aged Out No joceline miranda eligible based on patient's age to complete this topic RSV under 20 months Aged Out No longe r eligible based on patient's age to complete this topic Rotavirus Vaccines Aged Out No longer eligible based on patient's age to complete this topic Procedures Procedure Name Priority Date/Time Associated Diagnosis Comments DRUG MONITOR, PANEL 1, SCREEN, URINE Routine 11/23/2024 12:48 PM EST URINALYSIS, COMPLETE, WITH REFLEX TO CULTURE Routine 11/23/2024 12:47 PM EST URINALYSIS, COMPLETE, WITH REFLEX TO CULTURE Routine 10/31/2024 9:04 PM EST CULTURE, URINE, ROUTINE Routine 10/31/2024 12:00 AM EST CULTURE, URINE, ROUTINE Routine 09/07/2024 2:01 PM EDT BASIC METABOLIC PANEL Routine 09/07/2024 1:00 PM EDT Essential hypertension POCT URINALYSIS DIPSTICK Routine 09/07/2024 12:30 PM EDT Cloudy urine ZZZ HISTORICAL HEPATITIS C AB W/REFL TO HCV RNA, QN, PCR Routine 01/28/2022 10:33 AM EDT HIV 1/2 ANTIGEN/ANTIBODY, FOURTH GENERATION W/RFL Routine 01/28/2022 10:33 AM EDT LIPID PANEL, STANDARD Routine 01/28/2022 10:33 AM EDT ZZZ HISTORICAL HPV E6/E7 RFLX ROMA 16 18/45 Routine 12/10/2017 12:51 PM EST PANORAMIC RADIOGRAPHIC IMAGE Routine 12/01/2010 12:00 AM EST from Last 3 Months or Most Recently Relevant to Health Maintenance Results * (ABNORMAL) Drug Monitoring, Panel 1, Screen, Urine (11/23/2024 12:48 PM EST) Opiate Screen Urine Not Detected Not Detect [facility] Comment:Opiate cut-off is 30 0 ng/mL.Positive results are unconfirmed and should not be used fornon-medical purposes. Barbiturates, Urine Not Detected Not Detect [facility] Comment:Barbiturate cut-off is 200 ng/mL.Positive results are unconfirmed and should not be used fornon-medical purposes. Phencyclidine Screen Urine Not Detected Not Detect [facility] Comment:Phencyclidine cut-of f is 25 ng/mL.Positive results are unconfirmed and should not be used fornon-medical purposes. Amphetamine Screen Urine Not Detected Not Detect [facility] Comment:Amphetamine cut-off is 1000 ng/mL.Positive results are unconfirmed and should not be used fornon-medical purposes. Benzodiazepines Screen Urine Not Detected Not Detect [facility] Comment:Benzodiazepine cut-o ff is 200 ng/mL.Positive results are unconfirmed and should not be used fornon-medical purposes. Cocaine Screen Urine POSITIVE(A) Not Detect [facility] Comment:Cocaine cut-off is 3 00 ng/mL.Positive results are unconfirmed and should not be used fornon-medical purposes. Cannabinoid Screen Urine POSITIVE(A) Not Detect [facility] Comment:Cannabinoid cut-off is 50 ng/mL.Positive results are unconfirmed and should not be used fornon-medical purposes. Methadone Screen, Urine Not Detected Not Detect ng/mL [facility] Comment:Methadone cut-off is 300 ng/mL.Positive results are unconfirmed and should not be used fornon-medical purposes. FENTANYL URINE Not Detected Not Detect [facility] Comment:Fentanyl cut-off is 1 ng/mL.Positive results are unconfirmed and should not be used fornon-medical purposes. Oxycodone Urine Screen Not Detected Not Detect ng/mL [facility] Comment:Oxycodone cut-off is 100 ng/mL.Positive results are unconfirmed and should not be used fornon-medical purposes. Buprenorphine Screen Not Detected Not Detect ng/mL [facility] Comment:Buprenorphine cut-of f is 5 ng/mL.Positive results are unconfirmed and should not be used fornon-medical purposes. 11/23/2024 12:4 8 PM EST 11/23/2024 12:51 PM EST us Generic External Data Provider LAB URINE ORDERAB LES Final Result [facility] [address] [place] [address] [phone] * (ABNORMAL) Urinalysis, Complete, with Reflex to Culture (11/23/2024 12:47 PM EST) Only the most recent of2 resultswithin the time period is included. Color Urine Yellow [facility] Appearance Urine Clear [facility] PH 6.0 5.0 - 9.0 [facility] Glucose Urine UA Negative Negative mg/dL [facility] Urine Blood Large (3+)(A) Negative [facility] Specific [place] - Urine 1.025 1.005 - 1.025 [facility] Urine Protein Trace Neg-Trace mg/dL [facility] Urine Ketones Negative Negative mg/dL [facility] Nitrite Urine Negative Negative [facility] Leukocyte Esterase Urine Small (1+)(A) Negative [facility] RBC Urine >20(A) 0 - 2 /HPF [facility] Urine WBC 6-10(A) 0 - 5 /HPF [facility] Urine Squamous Epithelial Cell 0-2 0 - 2 /HPF [facility] Urine Bacteria None Seen None Seen [facility] Hyaline Casts, Urine 3-5 0 - 2 /LPF [facility] 11/23/2024 12:4 7 PM EST 11/23/2024 12:51 PM EST Narrative [facility] - 11/23/2024 12:58 PM EST Urine, [place] Generic External Data Provider LAB URINE ORDERAB LES Final Result Performing Organization Address [facility]/ZIP Co de Phone Number [facility] [address] [place] [phone] * Culture, Urine, Routine (10/31/2024 12:00 AM EST) Only the most recent of2 resultswithin the time period is included. Urine Urine specimen obtained by clean catch procedure / Unknown 10/31/2024 10/31/2024 Comment:[facility] Narrative [facility] - 11/03/2024 7:39 AM EST Proteus mirabilis Quant > 100,000 cfu/mL Proteus mirabilis: Ampicillin <=2(S) Proteus mirabilis: Cefazolin 4(S) Proteus mirabilis: Cefepime <=0.12(S) Proteus mirabilis: Ceftriaxone <=0.25(S) Proteus mirabilis: Ciprofloxacin <=0.06(S) Proteus mirabilis: Gentamicin <=1(S) Proteus mirabilis: Nitrofurantoin 256(R) Proteus mirabilis: Trimethoprim/Sulfamethoxazole <=20(S) Specimen Source: Urine clean catch us Generic External Data Provider LAB MICROBIOLOGY - GENERAL ORDERABLES Final Result Performing Organization Address City/[facility]/ZIP Co de Phone Number [facility] [address] [place] [phone] * (ABNORMAL) Basic Metabolic Panel (09/07/2024 1:00 PM EDT) Sodium 143 135 - 145 mmol/L [facility] Potassium 3.5 3.3 - 5.1 mmol/L [facility] Chloride 105 96 - 108 mmol/L [facility] Carbon Dioxide 28 22 - 29 mmol/L [facility] Anion Gap 14 12 - 20 [facility] Urea Nitrogen (BUN) 23(H) 9 - 16 mg/dL [facility] Creatinine, Serum 0.76 0.5 - 1.4 mg/dL [facility] Estimated Glomerular Filt Rate >60 [facility] Comment:NOTE: For -Am erican individuals, multiply the result by 1.210.Chronic Kidney Disease: Estimated GFR < 60 mL/min/1.87o3Uhgxio Kidney Disease: Estimated GFR < 15 mL/min/1.73m2 Glucose 83 60 - 115 mg/dL [facility] Calcium 10.3(H) 8.4 - 10.2 mg/dL [facility] Blood Venous blood specimen / Unknown 09/07/2024 1:00 PM EDT 09/07/2024 4:35 PM EDT Delmis Cat MD LAB BLOOD ORDERABLES Fin al Result [facility] [address] [place] [phone] * (ABNORMAL) POCT Urinalysis (09/07/2024 12:30 PM EDT) Color, UA Yellow Clarity, UA Clear Glucose, UA Negative Bilirubin, UA Negative Ketones, UA Negative Spec Grav, UA 1.025 Blood, UA Positive(A) Negative, None Detected Comment:small pH, UA 7.0 Protein, UA Moderate Comment:100 mg Urobilinogen, UA 0.2 Leukocytes, UA Moderate(A) Negative, Rare, Trace Nitrite, UA Negative Negative, None Detected Appearance, UA clear QC Media Lot # [id number] Lot# Expiration Date Urine 09/07/2024 12:3 0 PM EDT us Delmis Cat MD POINT OF CARE TEST ENTER /EDIT ORDERABLES Final Result * HEPATITIS C AB W/REFL TO HCV RNA, QN, PCR (01/28/2022 10:33 AM EDT) HEPATITIS C ANTIBODY NON-REACT ERNESTO NON-REACT ERNESTO [facility] INDEX 0.01 <1.00 [facility] Comment: ?? HCV antibody was non-reactive. There is no laboratory ?? evidence of HCV infection. ?? In most cases, no further action is required. However, if recent HCV exposure is suspected, a test for HCV RNA (test code 88045) is suggested. ?? For additional information please refer to http://Instablogs.GlySens/faq/MWO88e3 (This link is being provided for informational/ educational purposes only.) ?? 01/28/2022 10:3 3 AM EDT Alzia Paul DO HISTORICAL/NON ORDERABLE LAB S Final Result [facility] [address] * HIV 1/2 ANTIGEN/ANTIBODY,FOURTH GENERATION W/RFL (01/28/2022 10:33 AM EDT) HIV-1/2 ANTIGEN AND ANTIBODIES, 4TH GENERATION W/ REFLEX NON-REACT ERNESTO NON-REACT ERNESTO [facility] Comment: HIV-1 antigen and HIV-1/HIV-2 antibodies were not detected. There is no laboratory evidence of HIV infection. ?? PLEASE NOTE: This information has been disclosed to you from records whose confidentiality may be protected by state law. ??If your state requires such protection, then the state law prohibits you from making any further disclosure of the information without the specific written consent of the person to whom it pertains, or as otherwise permitted by law. A general authorization for the release of medical or other information is NOT sufficient for this purpose. ? For additional information please refer to http://Instablogs.GlySens/faq/CWQ596 (This link is being provided for informational/ educational purposes only.) ? The performance of this assay has not been clinically validated in patients less than 2 years old. ?? 01/28/2022 10:3 3 AM EDT Aliza Goldsmithmalu DO LAB BLOOD ORDERABLES Final R esult [facility] [address] * (ABNORMAL) LIPID PANEL, STANDARD (01/28/2022 10:33 AM EDT) Chol/HDLC Ratio 4.2 <5.0 (calc) [facility] Cholesterol, Total 223(H) <200 mg/dL [facility] HDL Cholesterol 53 > OR = 50 mg/dL [facility] LDL Cholesterol 131(H) mg/dL (calc) [facility] Comment: Reference range: <100 ?? Desirable range <100 mg/dL for primary prevention; ?? <70 mg/dL for patients with CHD or diabetic patients ?? with > or = 2 CHD risk factors. ?? LDL-C is now calculated using the Albert-Montilla ?? calculation, which is a validated novel method providing ?? better accuracy than the Friedewald equation in the ?? estimation of LDL-C. ?? Albert WHITTINGTON et al. OVIDIO. 2013;310(19): 1366-6776 ?? (http://Instablogs.MoonClerk.Symptify/faq/FZU316) Non-HDL Cholesterol 170(H) <130 mg/dL (calc) [facility] Comment: For patients with diabetes plus 1 major ASCVD risk ?? factor, treating to a non-HDL-C goal of <100 mg/dL ?? (LDL-C of <70 mg/dL) is considered a therapeutic ?? option. Triglycerides 242(H) <150 mg/dL [facility] Comment: ?? If a non-fasting specimen was collected, consider repeat triglyceride testing on a fasting specimen if clinically indicated. ?? Jaime et al. J. of Clin. Lipidol. 2015;9:129-169. ?? 01/28/2022 10:3 3 AM EDT Aliza Paul DO LAB BLOOD ORDERABLES Final R esult Performing Organization Address City/[facility]/ZIP Co de Phone Number [facility] [address] * HPV E6/E7 RFLX ROMA 16 18/45 (12/10/2017 12:51 PM EST) ADDITIONAL TESTING Not indicated () [facility] Comment: Test Performed by [employer], [employer] [facility], [address] [place] [phone] Ulises Silva M.D., Ph.D., Director of Laboratories , [facility] [id number] HPV 16 RNA Test not performed [facility] HPV 18/45 RNA Test not performed [facility] HPV mRNA E6/E7 Not Detected NOT DETECTED [facility] Comment: This test was performed using the APTIMA(R) HPV Assay ([employer] This assay detects E6/E7 viral messenger RNA (mRNA) from 14 high-risk HPV types (16,18,31,33,35,39,45,51, 52,56,58,59,66,68). For additional information please refer to: http://education.GlySens/faq/PSQ408o5 (This link is being provided for informational/ educational purposes only.) Please note: ??Effective 07/20/2016, HPV testing will be performed using [employer]'s APTIMA test which targets mRNA. Detecting mRNA instead of DNA, as in older methods, offers significant improvements in specificity. 12/10/2017 12:5 1 PM EST us Aliza Paul DO HISTORICAL/NON ORDERABLE LAB S Final Result Performing Organization Address [facility] Co de Phone Number [facility] [address] from Last 3 Months or Most Recently Relevant to Health Maintenance Insurance [place] [facility] MEDICAID STAND ADULT * Guarantor: Cheryl Garcia A Account Type Relation to Patient Date of Phone Billing Address Personal/Family Self [address] Care Teams Job Foreman Relationship Specialty Start Date End Date Aliza Paul DO [address] [place] [address] [phone] PCP - General Family Medicine 02/23/12 Lesley Ingram Community Health Worker 05/17/24 Rosi Castro RN [address] [place] [address] Insulator Tester 05/17/24 [facility] 07/27/24
--- OUTSIDE RECORDS SUMMARY | 2024-12-05 14:54 | XMS_ITS | Encounter Summary ---
Author Organization [employer] Address [address] [place] [address] [place] [address] Care Team Providers Care Chiropractic Teacher Name Role Phone Aliza Paul DO Primary Care Provider [phone] Lesley Ingram Unavailable Unavailable Rosi Castro RN Unavailable [phone] Reason for Visit * Reason Onset Date Comments FYI 08/14/2024 Encounter Details Date Type Department Care Team ([facility] st Contact Info) Description 08/14/2024 Telephone [facility] MEDICINE [address] [place], [place] [phone] Aliza Paul DO [address] [place] [address] FYI Social History Tobacco Use Types Packs/Day [...] Recorded Patient Health Questionnaire-2 Score 1 03/09/2024 Internet Access Answer Date Recorded Internet Access [...] encounter Miscellaneous Notes * Telephone Encounter - Elyse Chisholm - 08/14/2024 10:28 AM EDT [facility] to [facility] pt today to be able to change catheter. But when she arrived pt was being put in the ambulance and was going to be [facility] [place] [facility] [place] breath. documented in this encounter Plan of Treatment Upcoming Encounters Date Type Department Care Team (Late st Contact Info) Description 12/06/2024 10:45 AM EST Office Visit [facility] MED[facility] [address] [place] [address] Aliza Paul DO [address] [place] [address] 02/08/2025 3:00 PM EDT Office Visit [facility] OPTOMETRY [address] [place] [address] Kimberly Gonzalez OD [address] [place] [address] documented as of this encounter Visit Diagnoses Not on filedocumented in this encounter Additional Health Concerns Assessment Noted Time PHQ-9 Depression Total Score: 4 03/09/20 24 9:14 AM EDT documented as of this encounter Care Teams Chiropractic Teacher Relationship Specialty Start Date End Date Aliza Paul DO [address] [place] [address] PCP - General Family Medicine 02/23/12 Lesley Ingram Community Health Worker 05/17/24 Rosi Castro RN [address] [place] [phone] Pattern Chart Writer 05/17/24 [facility] 07/27/24 documented as of this encounter
--- OUTSIDE RECORDS SUMMARY | 2024-12-05 14:54 | XMS_ITS | Encounter Summary ---
Author Organization [employer] Address [address] [place] [address] [place] [address] Care Team Providers Care Senior Warehouse Clerk Name Role Phone Aliza Paul DO Primary Care Provider [phone] Lesley Ingram Unavailable Unavailable Rosi Castro RN Unavailable [phone] Reason for Visit * Reason Onset Date Comments Nurse Triage 11/17/2024 Encounter Details Date Type Department Care Team ([facility] st Contact Info) Description 11/17/2024 Telephone [facility] MEDICINE [address] [place], [place] [phone] Aliza Paul DO [address] [place] [address] Nurse Triage Social History Tobacco Use Types [...] encounter Miscellaneous Notes * Telephone Encounter - Kala Crabtree RN - 11/17/2024 1:18 PM EST Call returned to Cheryl Garcia to triage below. Spoke with Bianka SHEEHAN, states pt not available at the moment. reports [facility] came into the home today and catheter was changed. States pt not having diarrhea today and did take anxiety pill that helped reduce BP. Per Bianka BP normal during [facility] visit today. Advised to have pt follow up if sx recur or if BP continues elevated. Bianka agrees to notify patien t to return call. Call to Bianka ALDRIDGE with [facility]. Was not aware of [facility] visit today. Reports currently has services for halfway 1 visit weekly for med management. Every 3 weeks for catheter change.Advised of above. Verbalized understanding. * Telephone Encounter - Sherif Macias - 11/17/2024 1:13 PM EST TC from [facility] with [facility] reports going to see patient yesterday 11/16/24 for a catheter changeand was unable to do because patient had diarrhea for 2x days . Pat reports vitals were off B/P 120/100 and a Pulse of 93 . Pat wanted to call ambulance but pt declined and told pat she will call herself . Pt has not called and stopped communicating with pat *Catheter was not changed. documented in this encounter Plan of Treatment Upcoming Encounters Date Type Department Care Team (Late st Contact Info) Description 12/06/2024 10:45 AM EST Office Visit [facility] MEDICINE [address] [place] [address] Aliza Paul DO [address] [place] [address] 02/08/2025 3:00 PM EDT Office Visit [facility] OPTOMETRY [address] [place], [place] [phone] Kimberly Gonzalez OD [address] [place] [address] documented as of this encounter Visit Diagnoses Not on filedocumented in this encounter Additional Health Concerns Assessment Noted Time PHQ-9 Depression Total Score: 15 024 9:20 AM EDT documented as of this encounter Care Teams Senior Warehouse Clerk Relationship Specialty Start Date End Date Aliza Paul DO [address] [place] [address] PCP - General Family Medicine 02/23/12 Lesley Ingram Community Health Worker 05/17/24 Rosi Castro RN [address] [place] [address] White Metal Caster 05/17/24 [facility] documented as of this encounter
--- OUTSIDE RECORDS SUMMARY | 2024-12-05 14:54 | XMS_ITS | Encounter Summary ---
Author Organization [employer] Address [address] [place] [address] 7 [place] [address] Care Team Providers Care Meat Seafood Associate Name Role Phone Aliza Paul DO Primary Care Provider [phone] Lesley Ingram Unavailable Unavailable Rosi Castro RN Unavailable [phone] Reason for Visit * Reason Comments Med Refill Encounter Details Date Type Department Care Team ([facility] st Contact Info) Description 08/18/2024 Refill [facility] MEDICINE [address] [place], [place] [phone] Aliza Paul DO [address] [place] [address] Closed supracondylar fracture of right humerus with routine healing Social History Tobacco Use Types Packs/Day Years [...] encounter Miscellaneous Notes * Telephone Encounter - Aliza Paul DO - 08/22/2024 1:49 PM EDT Pt had significant bump in her kidney function last mos. documented in this encounter Plan of Treatment Upcoming Encounters Date Type Department Care Team (Late st Contact Info) Description 12/06/2024 10:45 AM EST Office Visit [facility] MEDICINE [address] [place] [address] Aliza Paul DO [address] [place] [address] 02/08/2025 3:00 PM EDT Office Visit [facility] OPTOMETRY [address] [place] [address] Kimberly Gonzalez OD [address] [place] [address] documented as of this encounter Visit Diagnoses Diagnosis Closed supracondylar fracture of right humerus with routine healing documented in this encounter Additional Health Concerns Assessment Noted Time PHQ-9 Depression Total Score: 4 03/09/20 24 9:14 AM EDT documented as of this encounter Care Teams Meat Seafood Associate Relationship Specialty Start Date End Date Aliza Paul DO [address] [place] [address] PCP - General Family Medicine 02/23/12 Lesley Ingram Community Health Worker 05/17/24 Rosi Castro RN [address] [place] [address] Airborne Mission Systems Superintendent 05/17/24 [facility] 07/27/24 documented as of this encounter
--- OUTSIDE RECORDS SUMMARY | 2024-12-05 14:54 | XMS_ITS | Encounter Summary ---
Author Organization [employer] Address [address] [place] [address] 7 [place] [address] Care Team Providers Care Irrigation Laborer Name Role Phone Aliza Paul DO Primary Care Provider [phone] Lesley Ingram Unavailable Unavailable Rosi Castro RN Unavailable [phone] Encounter Details Date Type Department Care Team ([facility] Contact Info) Description 11/04/2022 [facility] Health Information Management [address] [place], [place] [phone] Aliza Paul DO [address] [place], [place] [phone] Social History Tobacco Use Types Packs/Day Years [...] Upcoming Encounters Date Type Department Care Team ([facility] Contact Info) Description 12/06/2024 10:45 AM EST Office Visit [facility] MEDICINE [address] [place], [place] [phone] Aliza Paul DO [address] [place] [address] 02/08/2025 3:00 PM EDT Office Visit [facility] OPTOMETRY [address] [place] [address] Kimberly Gonzalez, OD [address] [place] [address] documented as of this encounter Visit Diagnoses Not on filedocumented in this encounter Care Teams Irrigation Laborer Relationship Specialty Start Date End Date Aliza Paul DO [address] [place] [address] PCP - General Family Medicine 02/23/12 Lesley Ingram Community Health Worker 05/17/24 Rosi Castro RN [address] [place] [address] Seed Collector 05/17/24 [facility] Care 07/27/24 documented as of this encounter
--- OUTSIDE RECORDS SUMMARY | 2024-12-05 14:54 | XMS_ITS | Encounter Summary ---
Author Organization [email or web address] Address [address] [place] [address] [place] [address] Care Team Providers Care Welding Teacher Name Role Phone Aliza Paul DO Primary Care Provider [phone] Lesley Ingram Unavailable Unavailable Rosi Castro RN Unavailable [phone] Reason for Visit * Reason Onset Date Comments Durable Medical Equipment 01/13/2024 Encounter Details Date Type Department Care Team (Late st Contact Info) Description 01/13/2024 Telephone [facility] MEDICINE [address] [place], [place] [phone] Aliza Paul DO [address] [place] [address] Durable Medical Equipment Social History Tobacco Use Types Packs/Day Years [...] your housing situation today? I have enzoshahnaz abrboza 03/09/[address] you li [...] encounter Miscellaneous Notes * Telephone Encounter - Mary Ann Hewitt - 01/18/2024 8:42 AM EDT Tc from pt requesting status on referral and supplies. Pt is also requesting help with SURGICAL RN Orders . Please contact pt @ [phone] * Telephone Encounter - Jae Gambino - 01/13/2024 12:57 PM EST Tc from pt requesting an electrical wheel chair, states was advised they need an evaluation by physical therapist. Please contact at [phone] documented in this encounter Plan of Treatment Upcoming Encounters Date Type Department Care Team (Late st Contact Info) Description 12/06/2024 10:45 AM EST Office Visit [facility] MEDICINE [address] [place] [address] Aliza Paul DO [address] [place] [address] 02/08/2025 3:00 PM EDT Office Visit [facility] OPTOMETRY [address] [place] [address] Kimberly Gonzalez, OD [address] [place] [address] documented as of this encounter Visit Diagnoses Not on filedocumented in this encounter Care Teams Welding Teacher Relationship Specialty Start Date End Date Aliza Paul DO [address] [place] [address] PCP - General Family Medicine 02/23/12 Lesley Ingram Community Health Worker 05/17/24 Rosi Castro RN [address] [place] [address] Plastics Design Engineer 05/17/24 [facility] Care 07/27/24 documented as of this encounter
--- OUTSIDE RECORDS SUMMARY | 2024-12-05 14:54 | XMS_ITS | Encounter Summary ---
Author Organization [employer] Address [address] [place] [address] 7 [place] [address] Care Team Providers Care Vice President Sales Name Role Phone Aliza Paul DO Primary Care Provider [phone] Lesley Ingram Unavailable Unavailable Rosi Csatro RN Unavailable [phone] Encounter Details Date Type Department Care Team (Late st Contact Info) Description 03/15/2024 Telephone [facility] MEDICINE [address] [place], [place] [phone] Aliza Paul DO [address] [place], [place] [phone] Social History Tobacco Use Types Packs/Day Years [...] got money to buy more: Never True 03/09/2024 Within the past 12 months,th e food you bought just didn't last and you didn't have enough money to get more: Never True 12/2023 Transportation Answer Date Recorded In the past 12 months, has l ack of transportation kept you from medical appts, meetings, work or from getting things needed for daily living? Yes, it has kept me from medical appointments or getting medications. 03/09/2024 Utilities Answer Date Recorded In the past 12 months, has t he electric, gas, oil or water company threatened to shut off services in your home? Yes 03/09/2024 Depression Answer Date Recorded Patient Health Questionnaire-2 Score 1 03/09/2024 Comments No Sex and Gender Information Value Date Recorded Sex Assigned at Female 09/07/2022 10:22 AM EDT Legal Sex Female 10:22 AM EDT Gender Identity Female 09/07/2022 10:22 AM EDT Sexual Orientation Straight 09/07/2022 10 :22 AM EDT documented as of this encounter Miscellaneous Notes * Telephone Encounter - Subha Antony RN - 03/15/2024 10:54 AM EDT TC on 03/09/24 [facility] to make a referral for AFC program, I had to leave a voicemail message on the intake referral VM. The VM stated someone would get back to me in 24-48 hours. TC today 03/15/24 to once again make a referral for patient for the AFC program, intake information given. Patient's insurance was verified and she needs to call [employer] as she has [employer] and they do not provide in home services like USER EXPERIENCE RESEARCHER or AFC program. I called patient and she stated she was in the hospital at [facility] and had to have neck surgery. When I mentioned about her calling [employer] to straighten out the coverage she was not very pleasant and she told me to do it myself. I contacted Maricruz back at [facility] intake and referral dept and left voice mail message that patient was in the hospital at [facility]. documented in this encounter Plan of Treatment Upcoming Encounters Date Type Department Care Team (Late st Contact Info) Description 12/06/2024 10:45 AM EST Office Visit [facility] MEDICINE [address] [place] [address] Aliza Paul, DO [address] [place], [place] [phone] 02/08/2025 3:00 PM EDT Office Visit [facility] OPTOMETRY [address] [place], [place] [phone] Kimberly Gonzalez OD [address] [place] [address] documented as of this encounter Visit Diagnoses Not on filedocumented in this encounter Additional Health Concerns Assessment Noted Time PHQ-9 Depression Total Score: 4 03/09/20 24 9:14 AM EDT documented as of this encounter Care Teams Vice President Sales Relationship Specialty Start Date End Date Aliza Paul DO [address] [place] [address] PCP - General Family Medicine 02/23/12 Lesley Ingram Community Health Worker 05/17/24 Rosi Castro RN [address] [place] [address] Dividend Clerk 05/17/24 [facility] 07/27/24 documented as of this encounter
--- OUTSIDE RECORDS SUMMARY | 2024-12-05 14:54 | XMS_ITS | Encounter Summary ---
Author Organization [employer] Address [address] [place] [address] 7 [place] [address] Care Team Providers Care Truss Puller Helper Name Role Phone Aliza Paul DO Primary Care Provider + [phone] Lesley Ingram Unavailable Unavailable Rosi Castro RN Unavailable [phone] Encounter Details Date Type Department Care Team (Late st Contact Info) Description 05/18/2024 Telephone [facility] MEDICINE [address] [place], [place] [phone] Aliza Paul DO [address] [place], [place] [phone] Social History Tobacco Use Types Packs/Day Years [...] EST Office Visit [facility] MEDICINE [address] [place] [address] Aliza Paul DO [address] [place] [address] 02/08/2025 3:00 PM EDT Office Visit [facility] OPTOMETRY [address] [place] [address] Kimberly Gonzalez OD [address] [place] [address] documented as of this encounter Visit Diagnoses Not on filedocumented in this encounter Additional Health Concerns Assessment Noted Time PHQ-9 Depression Total Score: 4 03/09/20 24 9:14 AM EDT documented as of this encounter Care Teams Truss Puller Helper Relationship Specialty Start Date End Date Aliza Paul DO [address] [place] [address] PCP - General Family Medicine 02/23/12 Lesley Ingram Community Health Worker 05/17/24 Rosi Castro RN [address] [place] [address] 05/17/24 [facility] documented as of this encounter
--- OUTSIDE RECORDS SUMMARY | 2024-12-05 14:54 | XMS_ITS | Data Portability ---
Author Organization [facility] [employer] [facility], Main Office Address [address], [address] [place] [address] Care Team Providers Care Warp Splitter Name Role Phone TAYLOR ELIAS - 2ND FLOOR OTHER Assessment Encounter Date Assessment Date Assessment LastModified by Organization Details LastModified Time 05/08/2024 05/08/2024 Labs 05/01/24: wbc 6.5, hgb 12.3, hct 38.7, plt 244, glucose 104, bun 14, cr 1.04, egfr 62, Labs 05/08/24: wbc 7.0-hgb 12.2-hct 36.7, plt 340- Na 142-K 4.6-Bun 13-Cr 0.9 [email or web address] Not available 05/08/2024 13:35:07 Plan of Treatment Reminders Order Date Submit Date Provider Last Modified By Organization Details Last Modified Time Details Appointments None recorded. Lab None recorded. Referral None recorded. Procedures None recorded. Surgeries None recorded. Imaging None recorded. Medication Orders Dilaudid 4 mg tablet 2023 024 [facility] , [address] [place], [address], 17:08:30 Patient TargetsNo targets recorded. Patient InstructionsNo instructions recorded. Reason for Referral None Reported. Problems Name Problem SNOMED Code Status Onset Date Resolution Date Notes Provider Name and Address Organization Details Recorded Time Hypertens ollie emergency 018092378072 104 Active 2023 Kyleigh Fritz NP [address], [address], [place], [address], [facility] [employer] 4 12:37:24 Headache 19563085 Active 2023 Kyleigh Fritz NP [address], [address], [place], [address], [employer] 4 12:37:35 Essential hypertens ion 00118663 Active 2023 Kyleigh Fritz NP [address], [address], [place], [address], [employer] 4 12:37:52 Chronic pain following spinal surgery Active 2023 Kyleigh Fritz NP [address], [address], [place], [address], [employer] 4 12:38:52 Leukocyto sis 948256266 Active 2023 Kylegih Fritz NP [address], [address], [place], [address], [employer] 4 12:39:04 Retention of urine 381799763 Completed 202304/13/2024 Kiana Cassidy MD [address], [address], [place], [address], [employer] 4 15:44:08 Anxiety 09476580 Active 2023 Kyleigh Fritz NP [address], [address], [place], [address], [employer] 4 12:39:32 History of cervical discectom y 893859125629 42471 Completed 202304/13/2024 Kyleigh Fritz NP [address], [address], [place], [address], [employer] 4 13:00:38 History of hemorrhag ic cerebrova scular accident with residual deficit 225143814414 106 Active 2023 Kyleigh Fritz NP [address], [address], [place], [address], [employer] 4 13:02:54 Gastroeso phageal reflux disease 843248878 Active 2023 Kyleigh Fritz NP [address], [address], [place], [address], [employer] 4 13:04:09 Retention of urine 360744967 Active 2023 Kiana Cassidy MD [address], [address], [place], [address] , [facility] [employer] 4 15:44:08 Urinary tract infectiou s disease 69987975 Active 2023 Kyleigh Fritz NP [address], [address], [place], [address] , [facility] [employer] 4 13:32:30 Problem Notes None recorded. Medical Equipment None Reported. Allergies No known drug allergies Medications Name Sig Start Date Stop Date Status Note LastModified by Organization Details LastModified Time venlafaxine ER 75 mg capsule,extend ed release 24 hr TAKE ONE CAPSULE EVERY DAY active Not Available Not Available No t Available atorvastatin 20 mg tablet TAKE ONE TABLET EVERY NIGHT AT BEDTIME active Not Available Not Available No t Available lidocaine 5 % topical patch APPLY 2 PATCHES TO SKIN. LEAVE ON FOR 12 HOURS, THEN OFF FOR 12 HOURS DIRECTED FOR PAIN. active Not Available Not Available No t Available Dilaudid 4 mg tablet 1 tab po qid prn pain 2023 active Not Available Not Available Not Avai lable hydrochlorothi azide 25 mg tablet TAKE ONE TABLET EVERY DAY active Not Available Not Available No t Available lisinopril 40 mg tablet TAKE ONE TABLET EVERY DAY active Not Available Not Available No t Available aripiprazole 10 mg tablet TAKE ONE TABLET EVERY DAY active Not Available Not Available No t Available Vitals Date Recorded Body height Body mass index (BMI) Body weight Heart rate Respiratory rate Body temperature Oxygen saturation Oxygen saturation in Arterial blood by Pulse oximetry Systolic blood pressure Diastolic blood pressure Provider Name and Address Organization Details Last Updated DateTime 4 160.02 cm 32.6 kg/m2 53273 g 90 /min 18 /min 97.2 [degF] 98 % 98 % 115 mm[Hg] 80 mm[Hg] Kyleigh Fritz NP [address], [address], [place], [address], [facility] [employer] 4 09:13:16 Date Recorded Body height Body mass index (BMI) Body weight Respiratory rate Heart rate Body temperature Oxygen saturation Oxygen saturation in Arterial blood by Pulse oximetry Systolic blood pressure Diastolic blood pressure Provider Name and Address Organization Details Last Updated DateTime 4 160.02 cm 32.6 kg/m2 60610 g 19 /min 86 /min 97.5 [degF] 96 % 96 % 110 mm[Hg] 70 mm[Hg] Kyleigh Fritz NP [address], [facility] [address], [place], [address], [employer] 4 16:03:36 Date Recorded Body height Body weight Heart rate Respiratory rate Body temperature Oxygen saturation Oxygen saturation in Arterial blood by Pulse oximetry Systolic blood pressure Diastolic blood pressure Provider Name and Address Organization Details Last Updated DateTime 4 160.02 cm 47199.1 4 g 85 /min 18 /min 97.4 [degF] 95 % 95 % 132 mm[Hg] 82 mm[Hg] Kyleigh Fritz NP [address] [facility] [address], [place], [address], [employer] 4 14:25:19 Date Recorded Body height Body mass index (BMI) Body weight Heart rate Respiratory rate Body temperature Oxygen saturation Oxygen saturation in Arterial blood by Pulse oximetry Systolic blood pressure Diastolic blood pressure Provider Name and Address Organization Details Last Updated DateTime 4 160.02 cm 33.8 kg/m2 27113.1 4 g 83 /min 18 /min 98.1 [degF] 96 % 96 % 130 mm[Hg] 90 mm[Hg] Kyleigh Fritz NP [address] [facility] [address], [place], [address], [employer] 4 11:09:43 Date Recorded Body height Body temperature Heart rate Respiratory rate Oxygen saturation Oxygen saturation in Arterial blood by Pulse oximetry Systolic blood pressure Diastolic blood pressure Provider Name and Address Organization Details Last Updated DateTime 4 160.02 cm 97.9 [degF] 82 /min 18 /min 96 % 96 % 140 mm[Hg] 92 mm[Hg] LILLIAN GOMEZ [address], [facility] [address], [place], [address], [employer] 4 11:53:33 Social History Question Answer Notes LastModified by Organizat ion Details LastModified Time Tobacco Smoking Status Never Smoker she says not really Kiana Cassidy MD [address], [address], [place], [address], [facility] 04/14/2024 21:45:44 Do You Have An Advance Directive? Yes Information not available 04/14/2024 What Is Your Level Of Alcohol Consumption? Occasional Tells Me I Don't Really Drink, But Previously Said, I Only Have A Cigarette When I'm Drinking. Information not available 04/14/2024 What Is Your Code Status? Full Code Information not available 04/14/2024 Which Illicit Or Recreational Drugs Have You Used? Cannabis Daily, Denies Other Substances, But Hx Of + Drug Screen For Cocaine. Information not available 04/14/2024 Where Do You Live? Apartment [address] Floor, Handicapped Accessible. Information not available 04/14/2024 Legal Guardian? No Informati on not available 04/14/2024 Do You Have A Medical Power Of Pneumatic Jacketer? Yes Not Invoked Information not available 04/14/2024 What Was The Date Of Your Most Recent Tobacco Screening? 04/05/2024 Information not available 04/05/2024 Do You Have An Out Of Hospital DNR? No Information not available 04/05/2024 Have You Ever Been Counseled For Unhealthy Alcohol Use? No Information not available 04/05/2024 Do You Use Any Illicit Or Recreational Drugs? Yes Information not available 04/14/2024 Has Tobacco Cessation Counseling Been Provided? No N/a As Pt Is Non-smoker Information not available 04/14/2024 Have You Used IV Drugs? No Information not available 04/14/2024 Do You Or Have You Ever Used Any Other Forms Of Tobacco Or Nicotine? No Information not available 04/05/2024 Sex: Female Functional Status None recorded. Mental Status None recorded. Family History Nothing Reported Notes:N/C Medical History No medical history recorded. Gynecological HistoryNo gynecological history recorded. Obstetrics History GPAL:G 0 P 0 0 0 0 Immunizations Vaccine Type Date Status Note Provider Madi dowd and Address Organization Details Recorded Time Tdap 2 completed Helena Rasta null, [facility] 04/07/2024 16:26:44 Tdap 2 completed Helena Magdaleno [facility] 04/07/2024 16:26:51 pneumococcal polysaccharide PPV23 2 completed Helena Magdaleno [facility] 04/07/2024 16:27:39 SARS-COV-2 (COVID-19) vaccine, UNSPECIFIED 2 completed Helena Magdaleno [facility] 04/07/2024 16:28:08 rabies, unspecified formulation 2 completed Helena Magdaleno [facility] 04/07/2024 16:28:22 Past Encounters Encounter ID Performer Location Encounter Start Date Encounter Closed Date Diagnosis/Indication Diagnosis SNOMED-CT Code Diagnosis ICD10 Code Diagnosis Note [id number] Kyleigh Fritz NP [facility] [address] [address] 04/05/2024 11:38:58 04/11/2024 14:41:13 Hypertensive crisis 869522016 I16.9 pt send to ER for hypertensi ve crisis initially 240/135 unrelieved by lisinopril , oxycodone, and anxiety medsBP 220/122 manually 1 hours post medssend to ER for hypertensi ve crisis Headache 04809658 R51.9 pt with head going to explode feeling and HTN crisis with recent hx of surgery and cvasend to ER for evaluation call [id number] Kyleigh [facility] [address] [address] 04/13/2024 12:11:45 04/17/2024 20:01:07 Hypertensive emergency [id number] 08475 I16.1 felt related to pt not receiving pm meds on admission to rehab requiring nacard gtt and brief hypotensiv e episode with midodrine given felt stable on lisinopril 40 mg po dailymonit or vitals and bp Headache 15760635 R51.9 headache felt to be from hypertensi ve urgency aboveCT head no acute changes Chronic pa in following spinal surgery 8226543350 7102 G89.28 03/31-04/04 c 5-c7 acdf surgery with complicati on post op of neck pain rad to RUE with numbness and tingling improved with decadron 03/31-04/04 admissionn o surgical interventi on rec from neurosurge ryfu with with neurosurge ry on 04/20 conttyleno l 975 mg po q 6dilaudid 8 mg po q 4 hours prn pain, wean as ableibupro fen 600 mg po q 6 hours prnlidocai ne patch topically dailymedro l dose pack as labeling directedga bapentin 900 mg po tidbaclofe n 10 mg po tid prn spasmmiral ax, senna dailywean as able Essential hypertension 48860560 I10 bp 148/98 here at 10amsee hypertensi ve emergency abovelisin opril 40 mg po dailymonit or vitals and bpcardiac diet Anxiety 34337109 F41.9 venlafaxin e 75 mg po daily(unsu re of why she is on this)hydro xyzine 50 mg po qid prn (was on bid)aripip razole 10 mg po dialymonit or and supportive care Leukocytosis 269673269 D 72.829 felt likely to medrol dose packmonito r labs weekly History of cervical discectomy 9331427613 8160227 Z98.890 recent hx of 03/31monito r neuros and fu with neuro Retention of urine 84908 4002 R33.9 hx of with chronic foleylast changed on 04/04foley careroutin e monthly changesmon itor History of hemorrhagic cerebrovascular accident with residual deficit 9231187158 09639 Z86.79 hx of stroke with residual deficitCT unremarkab leatorvast atin 20 mg po dailymonit or neuros Gastroesop hageal reflux disease 853899489 K21.9 famotidine 40 mg po dialymonit or [id number] Kiana Cassidy MD [address] [address] 04/14/2024 13:29:20 04/17/2024 20:21:04 Hypertensive emergency [id number] 89206 I16.1 Resolved inpt. Has had recurrent issues with labile BP including other episodes of hypertensi ve emergency, but then has had soft BPs and BP meds were held or d/c'd.Diff icult to manage. Has been running borderline high since return.Saqib l add HCTZ 25 mg qdContinue lisinopril 40 mg qd.Avoid BB due to bradycardi a.Monitor BP and labs. Headache 17528999 R51.9 With hx of migraines, but recent HAs due to hypertensi ve emergencie s.Monitor for sxs. Chronic pa in following spinal surgery 2914411836 7102 G89.28 Improving slowly in this woman with possible hx of substance abuse, likely has low pain threshold. But tells me pain isn't bad tonight.D/ C med list states APAP 975 mg q 6 hrs, currently written as prn, but supposed to be scheduled, will change to 975 mg TID scheduled due to ? hx of EtOH abuse, although she denies this.Alejandro nue lidocaine patch 4% qd, gabapentin 900 mg TID, medrol dosepak (will be done on 04/19), dilaudid 8 mg q 4 hrs prn pain-wean as able, ibuprofen 600 mg q 6 hrs prn, and baclofen 10 mg TID prn.Very deconditio everett.Needs PT/OT for strengthen ing, balance, gait training, safety and function.C ontinue fall precaution s.Monitor for safety.Mon itor pain control.F/ U with neurosurg on 04/20 as planned. Essential hypertension 13736240 I10 As above. Anxiety 84656420 F41.1 Mood continues to be labile.Con tinue venlafaxin e 75 mg qd, aripiprazo le 10 mg qd and hydroxyzin e 50 mg qid prn.Avoid benzos.Mon itor mood.Consu lt psych prn Leukocytosis 196685078 D 72.828 Much more elevated today.Will get U/A and C&S in this woman with chronic covarrubias.Nusrat tor for signs of infection. History of cervical discectomy 0742253869 1045911 Z98.890 As above. Retention of urine 96877 4002 R33.8 Apparently long standing.W as self cathing prior to stroke, now with chronic covarrubias, last changed on 04/04Contin ue covarrubias care and monthly changesWil l get U/A and C&S as above. History of hemorrhagic cerebrovascular accident with residual deficit 8752703260 72915 I61.1 S/P hemorrhagi c CVA in 01/2024.Con tinue PT/OT as above.Cont inue atorvastat in 20 mg qd.Keep SBP <160Monito r for new neuro sxs. Gastroesop hageal reflux disease 043719574 K21.9 No current sxs.Contin ue famotidine 40 mg qdMonitor for GI sxs. [id number] ATIF MILLER NP [facility] [place] [address] 04/18/2024 14:33:47 04/21/2024 11:31:02 Hypertensive emergency [id number] 43373 I16.1 Resolved inpt. Has had recurrent issues with labile BP including other episodes of hypertensi ve emergency, but then has had soft BPs and BP meds were held or d/c'd.Diff icult to manage. Has been running borderline high since return.HCT Z 25 mg qd was to be added 04/14 by , but appears this was not done.Will add HCTZ today, hold for SBP<110Con tinue lisinopril 40 mg qd.Avoid BB due to bradycardi a.Monitor BP and labs closely Essential hypertension 56169906 I10 As above. Leukocytosis 081739087 D 72.828 Trending up since admission, much better today (11.3)U/A and C&S ordered 04/14, but does not appear it was done - will re-orderCB C, BMP o overt s/s infection at this time.Of note, is completing steroid taper. Headache 13720517 R51.9 With hx of migraines, but recent HAs due to hypertensi ve emergencie s.Monitor for sxs. Chronic pa in following spinal surgery 6201843452 7102 G89.28 Improving slowly in this woman with possible hx of substance abuse, likely has low pain threshold. But tells me pain isn't bad tonight.D/ C med list states APAP 975 mg q 6 hrs, currently written as prn, but supposed to be scheduled, will change to 975 mg TID scheduled due to ? hx of EtOH abuse, although she denies this.Alejandro nue lidocaine patch 4% qd, gabapentin 900 mg TID, medrol dosepak (will be done on 04/19), dilaudid 8 mg q 4 hrs prn pain-wean as able, ibuprofen 600 mg q 6 hrs prn, and baclofen 10 mg TID prn.Very deconditio everett.Needs PT/OT for strengthen ing, balance, gait training, safety and function.C ontinue fall precaution s.Monitor for safety.Mon itor pain control.F/ U with neurosurg on 04/20 as planned. History of hemorrhagic cerebrovascular accident with residual deficit 3701863567 38222 I61.1 S/P hemorrhagi c CVA in 01/2024.Con tinue PT/OT as above.Cont inue atorvastat in 20 mg qd.Keep SBP <160Monito r for new neuro sxs. Anxiety 47114333 F41.1 Mood continues to be labile.Con tinue venlafaxin e 75 mg qd, aripiprazo le 10 mg qd and hydroxyzin e 50 mg qid prn.Avoid benzos.Mon itor mood.Consu lt psych prn History of cervical discectomy 4240642026 8247919 Z98.890 As above. Retention of urine 86328 4002 R33.8 Apparently long standing.W as self cathing prior to stroke, now with chronic covarrubias, last changed on 04/04Contin ue covarrubias care and monthly changesWil l get U/A and C&S as above. Gastroesop hageal reflux disease 763344088 K21.9 No current sxs.Contin ue famotidine 40 mg qdMonitor for GI sxs. [id number] ATIF MILLER NP [facility] [address] 04/20/2024 11:26:08 04/25/2024 09:54:45 Hypertensive emergency [id number] 05312 I16.1 Resolved inpt. Has had recurrent issues with labile BP including other episodes of hypertensi ve emergency, but then has had soft BPs and BP meds were held or d/c'd. Remains labile here, but no extreme readings.H as been difficult to manage; mostly on the high side since return from hosp.HCTZ 25 mg qd was to be added 04/14 by , but appears this was not done.Added HCTZ 6/11, hold for SBP<110Con tinue lisinopril 40 mg qd.Avoid BB due to bradycardi a.Continue to monitor BP and labs closely Essential hypertension 96430948 I10 As above. Leukocytosis 201268638 D 72.828 Trending up since admission, much better today (11.3)U/A and C&S ordered 04/14, finally obtained 04/19, positive UA, C&S prelim. >100K E. Coli.Plan -start Keflex 500 mg qid x 7 days plus probiotic. CBC, BMP tor VSOf note, is completing steroid taper. Headache 52062952 R51.9 With hx of migraines, but recent HAs due to hypertensi ve emergencie s.Monitor for sxs. Chronic pa in following spinal surgery 9588468885 7102 G89.28 Improving slowly in this woman with possible hx of substance abuse, likely has low pain threshold. No complaints of pain today, staying mostly in w/c.Has follow up with Neurosurge ry today. Continue:A PAP 975 mg TIDlidocai ne patch 4% qdgabapent in 900 mg TIDmedrol dosepak (completed 04/19)dilau did 8 mg q 4 hrs prn pain-wean as ableibupro fen 600 mg q 6 hrs prnbaclofe n 10 mg TID prn. Very deconditio everett.Needs PT/OT for strengthen ing, balance, gait training, safety and function.C ontinue fall precaution s.Monitor for safety.Mon itor pain control. History of hemorrhagic cerebrovascular accident with residual deficit 7362966406 29650 I61.1 S/P hemorrhagi c CVA in 01/2024.Con tinue PT/OT as above.Cont inue atorvastat in 20 mg qd.Keep SBP <160Monito r for new neuro sxs. Anxiety 74136882 F41.1 Mood continues to be labile.Con tinue venlafaxin e 75 mg qd, aripiprazo le 10 mg qd and hydroxyzin e 50 mg qid prn.Avoid benzos.Mon itor mood.Consu lt psych prn History of cervical discectomy 3373031503 4533963 Z98.890 As above. Retention of urine 79917 4002 R33.8 Apparently long standing.W as self cathing prior to stroke, now with chronic covarrubias, last changed on 04/04Contin ue covarrubias care and monthly changesTre ating UTI as above. Gastroesop hageal reflux disease 446359864 K21.9 No current sxs.Contin ue famotidine 40 mg qdMonitor for GI sxs. [id number] [facility] [address] [place] [address] 04/24/2024 13:06:36 04/27/2024 08:55:22 Hypertensive emergency [id number] 00106 I16.1 Resolved inpt.noteH as had recurrent issues with labile BP including other episodes of hypertensi ve emergency, but then has had soft BPs and BP meds were held or d/c'd. Remains labile here, but improving in generalcon tHCTZ 25 mg po daily, hold for SBP<110lis inopril 40 mg qd.Avoid BB due to bradycardi a.Continue to monitor BP and labs closely Essential hypertension 67916808 I10 As above.[place] ins labile here, but improving in generalcon tHCTZ 25 mg po daily, hold for SBP<110lis inopril 40 mg qd.Avoid BB due to bradycardi a.Continue to monitor BP and labs closely Leukocytosis 034682225 D 72.828 Trending down now.see above UTICBC, BMP tor VSOf note, is completing steroid taper. Chronic pa in following spinal surgery 0841113857 7102 G89.28 Improving however, still requiring meds and question in this woman with possible hx of substance abuse, likely has low pain threshold. No complaints of pain today, staying mostly in w/c.Has follow up with Neurosurge ry today. Continue:A PAP 975 mg TIDlidocai ne patch 4% qdgabapent in 900 mg TIDmedrol dosepak (completed 04/19)dilau did 8 mg q 4 hrs prn pain-wean as ableibupro fen 600 mg q 6 hrs prnbaclofe n 10 mg TID prn. Very deconditio everett.Needs PT/OT for strengthen ing, balance, gait training, safety and function.C ontinue fall precaution s.Monitor for safety.Mon itor pain control. History of hemorrhagic cerebrovascular accident with residual deficit 4106842870 27675 I61.1 S/P hemorrhagi c CVA in 01/2024.has had chronic covarrubias since stroke and reports attempted removal several times but is likely chronicCon tinue PT/OT as above.Cont inue atorvastat in 20 mg qd.Keep SBP <160Monito r for new neuro sxs. Anxiety 35034062 F41.1 Mood continues to be labile.Con tinuevenla faxine 75 mg qd, aripiprazo le 10 mg qd and 04/24 hydroxyzin e 50 mg qid and add 50 mg po prn q 24Avoid benzos.Mon itor mood.Consu lt psych prn History of cervical discectomy 9883141752 1259043 Z98.890 As above. Retention of urine 04515 4002 R33.8 Apparently long standing.W as self cathing prior to stroke, now with chronic covarrubias, last changed on 04/04Contin ue covarrubias care and monthly changesTre ating UTI as above. Gastroesop hageal reflux disease 378753983 K21.9 No current sxs.Contin uefamotidi ne 40 mg qdMonitor for GI sxs. Urinary tr act infectious disease 26468271 N39.0 Urine culture results show >100,000 e coli ESBL and gram neg rods pseudomona s.esbl precaution sShe was recently started on keflex 04/21-04/28. Due to resistant esbl and multi-orga nisms will04/24 dc keflex and cont probiotic start levaquin 750 mg po daily x 5 daysaugmen tin 875mg/125 mg po bid x 10 days as these are susceptibl e on culture.mo nitor [id number] ATIF MILLER NP [address] [place] [address] 04/25/2024 10:45:23 04/27/2024 09:53:26 Urinary tract infectious disease 99623408 N39.0 Urine cx. >100,000 e coli ESBL and 50-99K Pseudomona sesbl precaution sKeflex stopped, now on levaquin 750 mg qd x 5d and Augmentin 875 mg bid x 10 d plus probiotic. CBC improvedCl inically stableMain tain fluidsTren d VS, sx. labs Leukocytosis 414268212 D 72.828 Trending down - WNRTreatin g for UTIMonitor VS, trend labsOf note, completed steroid taper. Anxiety 69183923 F41.1 Mood continues to be labile.Con tinue:Venl afaxine 75 mg qdAripipra zole 10 mg qdHydroxyz ine 50 mg qid with recent addition of 50 mg qd prnAvoid benzos.Mon itor mood and behaviorsC onsult psych prn Hypertensi ve emergency [id number] 40913 I16.1 Hx. of labile BP with significan t highsMeds adjusted.R emains labile here, but improving in generalcon tinue:HCTZ 25 mg qd, hold for SBP<110lis inopril 40 mg qd Avoid BB due to bradycardi a.Continue to monitor BP and labs closely Essential hypertension 00545344 I10 As above.[place] ins labile here, but improving in generalcon tHCTZ 25 mg po daily, hold for SBP<110lis inopril 40 mg qd. Avoid BB due to bradycardi a.Continue to monitor BP and labs closely Chronic pa in following spinal surgery 6322904974 7102 G89.28 Improving in general, however, still requiring pain medication meds (possible hx of substance abuse, likely has low pain threshold) . Had follow up with Neurosurge ry last week, will request note Continue:A PAP 975 mg TIDlidocai ne patch 4% qdgabapent in 900 mg TIDibuprof en 600 mg q 6 hrs prnbaclofe n 10 mg TID prn. Dilaudid stopped abruptly, unclear as to why.Due to c/o severe pain, will restart but at a lower dose and frequency - 4 mg qid prn - with expectatio n to continue to reduce until weaned off. medrol dosepak (completed 04/19) Continue PT/OT for strengthen ing, balance, gait training, safety and function.C ontinue fall precaution s.Monitor for safety.Mon itor pain control. History of hemorrhagic cerebrovascular accident with residual deficit [id number] 68973 I61.1 S/P hemorrhagi c CVA in 01/2024.has had chronic covarrubias since stroke and reports attempted removal several times but is likely chronicCon tinue PT/OT as above.Cont inue atorvastat in 20 mg qd.Keep SBP <160Monito r for new neuro sxs. History of cervical discectomy [id number] Z98.890 As above. Retention of urine 91025 4002 R33.8 Apparently long standing.W as self cathing prior to stroke, now with chronic covarrubias, last changed on 04/04Contin ue covarrubias care and monthly changesTre ating UTI as above. Gastroesop hageal reflux disease [id number] K21.9 No current sxs.Contin uefamotidi ne 40 mg qdMonitor for GI sxs. [id number] Kyleigh Fritz NP [facility] of [address] [address] 04/27/2024 09:12:38 05/03/2024 16:01:01 Chest pain [id number] R07.9 call 911 and send to ER for acute chest pain [id number] Kyleigh Fritz NP [facility] [address] [address] 04/28/2024 16:02:42 05/03/2024 16:31:55 Urinary tract infectious disease [id number] N39.0 Urine cx. >100,000 e coli ESBL and 50-99K Pseudomona sesbl precaution sKeflex stopped, now on levaquin 750 mg qd x 5d and Augmentin 875 mg bid x 10 d plus probiotic. CBC improvedCl inically stableMain tain fluidsTren d VS, sx. labs Leukocytosis [id number] D 72.828 resolvedTr eating for UTIMonitor VS, trend labsOf note, completed steroid taper. Anxiety 46468593 F41.1 Mood continues to be labile.04/09 1 start buspar 10 mg po bid per psych recContinu e:Venlafax ine 75 mg qdAripipra zole 10 mg qdHydroxyz ine 50 mg qid with recent addition of 50 mg qd prnAvoid benzos.Mon itor mood and behaviorsC onsult psych prn Hypertensi ve emergency [id number] 00113 I16.1 resolvedbp stable x last three dayscontin ue:HCTZ 25 mg qd, hold for SBP<110lis inopril 40 mg qd Avoid BB due to bradycardi a.Continue to monitor BP and labs closely Essential hypertension 83618301 I10 As above.stab le for last few daysHCTZ 25 mg po daily, hold for SBP<110lis inopril 40 mg qd.Avoid BB due to bradycardi a.Continue to monitor BP and labs closely 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 Had follow up with Neurosurge ry appt, still awaiting note Continue:A PAP 975 mg TIDlidocai ne patch 4% qdgabapent in 900 mg TIDibuprof en 600 mg q 6 hrs prnbaclofe n 10 mg TID prn.dilaud id 4 mg qid prn - with expectatio n to continue to reduce until weaned off.medrol dosepak (completed 04/19) Continue PT/OT for strengthen ing, balance, gait training, safety and function.C ontinue fall precaution s.Monitor for safety.Mon itor pain control. History of hemorrhagic cerebrovascular accident with residual deficit [id number] 47329 I61.1 S/P hemorrhagi c CVA in 01/2024.has had chronic covarrubias since stroke and reports attempted removal several times but is likely chronicCon tinuePT/OT as above.ator vastatin 20 mg qd.Keep SBP <160Monito r for new neuro sxs. History of cervical discectomy [id number] Z98.890 As above. Retention of urine 56622 4002 R33.8 Apparently long standing. with recent utiWas self cathing prior to stroke, now with chronic covarrubias, last changed on 04/04Contin ue covarrubias care and monthly changesTre ating UTI as above. [id number] Kyleigh Fritz NP [address] [address] 05/04/2024 13:57:33 05/09/2024 10:01:55 Anxiety [id number] F41.1 Mood continues to be labile with anxiety. start buspar 10 mg po bid per psych rec05/04 cont buspar as it is helping with anxiety and consider increasing Cont:Venla faxine 75 mg qdAripipra zole 10 mg qdHydroxyz ine 50 mg qid with recent addition of 50 mg qd prnAvoid benzos.Mon itor mood and behaviorsC onsult psych prn Urinary tr act infectious disease [id number] N39.0 Urine cx. >100,000 e coli ESBL and 50-99K Pseudomona sesbl precaution sKeflex stopped, now on levaquin 750 mg qd x 5d and Augmentin 875 mg bid x 10 d plus probiotic. to finish todayClini pebbles stableMain tain fluidsTren d VS, sx. labs Essential hypertension 92057490 I10 stable and 132/82 todayHCTZ 25 mg po daily, hold for SBP<110lis inopril 40 mg qd.was on norvasc at home but dc'd in hospital for low bpAvoid BB due to bradycardi a.Continue to monitor BP and labs closely and for need to restart meds Chronic pa in following spinal surgery [id number] 7102 G89.28 Improving in general, however, still requiring pain medication meds 1-2 times per day(possib le hx of substance abuse, likely has low pain threshold) . Had follow up with Neurosurge tarah appt, still awaiting note Cont:APAP 975 mg TIDlidocai ne patch 4% qdgabapent in 900 mg TIDibuprof en 600 mg q 6 hrs prnbaclofe n 10 mg TID prn.dilaud id 4 mg qid prn - with expectatio n to continue to reduce until weaned off.medrol dosepak (completed 04/19)PT/OT for strengthen ing, balance, gait training, safety and function.f all precaution s.Monitor for safety. and pain control. History of hemorrhagic cerebrovascular accident with residual deficit [id number] 24446 I61.1 S/P hemorrhagi c CVA in 01/2024.has had chronic covarrubias since stroke and reports attempted removal several times but is likely chronicCon tPT/OT as above.ator vastatin 20 mg qd.Keep SBP <160Monito r for new neuro sxs. History of cervical discectomy [id number] 8973184 Z98.890 As above. Retention of urine 46555 4002 R33.8 Apparently long standing. with recent utiWas self cathing prior to stroke, now with chronic covarrubias, last changed on 04/04Contin ue covarrubias care and monthly changesTre ating UTI as above almost resolved [id number] Kyleigh Fritz, [facility] [address] [address] 05/05/2024 11:08:22 05/09/2024 10:26:57 Anxiety 23902234 F41.1 Mood continues to be labile with anxiety. start buspar 10 mg po bid per psych rec05/05 cont buspar as it is helping with anxiety and consider increasing Cont:Venla faxine 75 mg qdAripipra zole 10 mg qdHydroxyz ine 50 mg qid with recent addition of 50 mg qd prnAvoid benzos.see is following with psychother apist also hereMonito r mood and behaviorsC onsult psych prn Essential hypertension 37122312 I10 stable with labile bps at timescontH CTZ 25 mg po daily, hold for SBP<110lis inopril 40 mg qd.was on norvasc at home but dc'd in hospital for low bpAvoid BB due to bradycardi a.Continue to monitor BP and labs closely and for need to restart meds Chronic pa in following spinal surgery [id number] 7102 G89.28 Improving in general, however, still requiring pain medication meds 1-2 times per day(possib le hx of substance abuse, likely has low pain threshold noted in summaries) . Had follow up with Neurosurge tarah appt on 04/20, still awaiting note Cont:APAP 975 mg TIDlidocai ne patch 4% qdgabapent in 900 mg TIDibuprof en 600 mg q 6 hrs prnbaclofe n 10 mg TID prn.dilaud id 4 mg qid prn - with expectatio n to continue to reduce until weaned off.medrol dosepak (completed 04/19)( she is using 1-2 times per day)PT/OT for strengthen ing, balance, gait training, safety and function.f all precaution s.Monitor for safety. and pain control.Celeste dowd has a fu with neurosurge tarah on jun 21 at 3pm Urinary tr act infectious disease 07728573 N39.0 denies any symptomsUr ine cx. >100,000 e coli ESBL and 50-99K Pseudomona sesbl precaution sKeflex stopped, now on levaquin 750 mg qd x 5d and Augmentin 875 mg bid x 10 d plus probiotic. completed on 05/05Clinic ally stableMain tain fluidsTren d VS, sx. labs History of hemorrhagic cerebrovascular accident with residual deficit [id number] 11535 I61.1 S/P hemorrhagi c CVA in 01/2024.has had chronic covarrubias since stroke and reports attempted removal several times but is likely chronicCon tPT/OT as above.ator vastatin 20 mg qd.Keep SBP <160Monito r for new neuro sxs. History of cervical discectomy [id number] 9432714 Z98.890 As above. Retention of urine 86997 4002 R33.8 Apparently long standing. with recent utiWas self cathing prior to stroke, now with chronic covarrubias, last changed on 04/04nsg to change monthlyCon tinue covarrubias care and monthly changesTre ating UTI as above almost resolved Hypertensi ve emergency [id number] 95222 I16.1 resolved, ? related to not getting dose of lisinopril per dc summarycon tinue:HCTZ 25 mg qd, hold for SBP<110lis inopril 40 mg qdAvoid BB due to bradycardi a.Continue to monitor BP and labs closely Chest pain 95428411 R07. 9 she was sent to ER for chest pain that was ruled out and sent back to [facility] Gastroesop hageal reflux disease 116750012 K21.9 No current sxs.Contin uefamotidi ne 40 mg qdMonitor for GI sxs. Headache 08426189 R51.9 With hx of migraines, but recent HAs due to hypertensi ve emergencie s.Monitor for sxs. [id number] LILLIAN GOMEZ [address] [address] 05/08/2024 10:49:58 05/18/2024 09:55:18 Chronic pain following spinal surgery [id number] 7102 G89.28 Improving in general, however, still requiring pain medication meds 1-2 times per day(possib le hx of substance abuse, likely has low pain threshold noted in summaries) . Cont:APAP 975 mg TIDlidocai ne patch 4% qdgabapent in 900 mg TIDibuprof en 600 mg q 6 hrs prnbaclofe n 10 mg TID prn.dilaud id 4 mg qid prn - with expectatio n to continue to reduce until weaned off.medrol dosepak (completed 04/19)( she is using 1-2 times per day)PT/OT for strengthen ing, balance, gait training, safety and function.f all precaution s.Monitor for safety. and pain control.Sh noemí has a fu with neurosurge ry on jun 21 at 3pm Anxiety 31720016 F41.1 Mood continues to be labile with anxiety.co ntinue buspar 10 mg po bid per psych reccont buspar as it is helping with anxiety and consider increasing Cont:Venla faxine 75 mg qdAripipra zole 10 mg qdHydroxyz ine 50 mg qid with recent addition of 50 mg qd prnAvoid benzos. Essential hypertension 57202197 I10 contHCTZ 25 mg po daily, hold for SBP<110lis inopril 40 mg qd.was on norvasc at home but dc'd in hospital for low bpAvoid BB due to bradycardi a.Continue to monitor BP and labs closely and for need to restart meds Urinary tr act infectious disease 31534558 N39.0 denies any symptomsUr ine cx. >100,000 e coli ESBL and 50-99K Pseudomona sesbl precaution scompleted abx on 05/05Clinic ally stableMain tain fluidsTren d VS, sx. labs History of hemorrhagic cerebrovascular accident with residual deficit [id number] 69345 I61.1 S/P hemorrhagi c CVA in 01/2024.has had chronic covarrubias since stroke and reports attempted removal several times but is likely chronicCon tatorvasta tin 20 mg qd.Keep SBP <160Monito r for new neuro sxs. History of cervical discectomy 2588079961 3690825 Z98.890 As above. Retention of urine 93088 4002 R33.8 Apparently long standing. with recent utiWas self cathing prior to stroke, now with chronic covarrubias, last changed on 04/04nsg to change monthlyCon tinue covarrubias care and monthly changesTre ating UTI as above almost resolvedfo olow up out patient with urology- patient will make appt. Gastroesop hageal reflux disease 266776730 K21.9 No current sxs.Contin uefamotidi ne 40 mg qdMonitor for GI sxs. Health Concerns Section Related Observation LastModified by Organization Detai ls LastModified Time None Recorded Concern Status LastModified by Organization Details LastModified Time None Recorded Advance Directives Directive Y: Payers Encounter Date Sequence Insurance Name Policy Number Policy Alanis Covered Member ID Alanis Member ID Guarantor Name 04/27/2024 1 [place] [facility] Cheryl Didato [id number] Cheryl Didato 04/28/2024 1 [place] Cheryl Didato [id number] Cheryl Didato 05/04/2024 1 [place] [facility] Cheryl Didato [id number] Cheryl Didato 05/05/2024 1 [place] [facility] Cheryl Didato [id number] Cheryl Didato 05/08/2024 1 [place] Cheryl Didato [id number] Cheryl Didato Notes Date Note Type Note Provider Name and Address Organization Details Recorded Time 04/27/2024 text/html Cheryl is seen tod ay for an acute visit. Her PMH includes HTN-very labile, HLD, migraines, anxiety/depression, chronic urinary retention with indwelling covarrubias, and s/p CVA right basal ganglia, hemorrhagic stroke in 01/2024. She is a 58 yo woman who is here for rehab after a series of hospitalizations and rehab stays since 02/03/24 when she was admitted to [facility] for an acute CVA. recent spinal surgery with pain management concerns and felt appropriate for rehab. on 04/04/24 seen for chest pain today. She has complained of chest pain to the nurses overnight but did not want to go to the hospital and choose to try a dilaudid instead and feel asleep throughout the night. On exam, She is sitting up in bed with regular color. She is at baseline cognitively. Vitals stable. She reports she woke up with chest pain radiating down her arm and has received all pain and anxiety medications and the left chest pain is a 9/10. The pain is there all the time and reproducible with increased pain upon stethoscope touching left chest this am in light manner. She reports I don't want to mess around with my health and want to go to [facility] . 911 called and pt seen to ER promptly. Of note: She is currently on antibiotics for UTI until 05/04, due to final C&S results (>100K E. Coli ESBL and 50-99K Pseudomonas) change required, now on levaquin and Augmentin to cover these orgs. Chronic covarrubias remains in place, qs yellow urine. Kyleigh Fritz NP [address], [address], [place], [address], [employer] 04/27/2024 10:02:54 04/28/2024 text/html Cheryl is seen tod ay for an acute visit. Her PMH includes HTN-very labile, HLD, migraines, anxiety/depression, chronic urinary retention with indwelling covarrubias, and s/p CVA right basal ganglia hemorrhagic stroke in 01/2024. She is a 58 yo woman who is here for rehab after a series of hospitalizations and rehab stays since 02/03/24 when she was admitted to [facility] for an acute CVA and sp spinal surgery fusion. She is seen today by psych rn recommending buspar 10 mg po bid for her anxiety. Due to recurrent anxiety will agree and monitor closely as she seems to be med seeking at times by psych rn.She remains on antibiotics for UTI, due to final C&S results (>100K E. Coli ESBL and 50-99K Pseudomonas) change required, now on levaquin and Augmentin to cover these orgs. She continues to work with rehab and her vitals are stable. Pain generally managed with dilaudid 1-2 times per day. Of note: recent hospital ER trip for chest pain however no discharge paperwork per nursing on 04/27/24. On exam, Cheryl is lying in bed resting in NAD. 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 No other concerns per nursing. Kyleigh Fritz NP [address], [address], [place], [address], [place] [employer] 04/28/2024 16:12:43 05/04/2024 text/html Cheryl is seen tod ay for an acute visit. Her PMH includes HTN-very labile, HLD, migraines, anxiety/depression, chronic urinary retention with indwelling covarrubias, and s/p CVA right basal ganglia hemorrhagic stroke in 01/2024. Cheryl is a 58 yo woman who is here for rehab after a series of hospitalizations and rehab stays since 02/03/24 when she was admitted to [facility] for an acute CVA and sp spinal surgery fusion here at [facility] for acute rehab. She remains on antibiotics for UTI, due to final C&S results (>100K E. Coli ESBL and 50-99K Pseudomonas) change required, now on levaquin and Augmentin to cover these orgs to finish on 05/04 and levaquin finished. She is currently denying symptoms of UTI with chronic covarrubias in place drainage clear yellow urine. Pt remains working with therapy and she states she may need a walker for home. She is a one assist currently. Labs reviewed and stable from 05/01/24. Pain generally managed with dilaudid 1-2 times per day still. She reports she wants more dilaudid and more clonazepam for home and admits to taking extra at home which is not always good. She seems to be med seeking and aware she is try spacing out the meds and use when needed only. She started out the conversation with stating she was in pain and then stated the biofreeze cream works great and has no pain today. On exam,Cheryl is lying in bed in NAD. She finishes her phone call and pleasantly speaks with this provider. See above. She remains with anxiety and she was recently started on buspar which seems to better on the buspar. She redirects herself multiple times during our conversation with anxiety and flights of ideas. Kyleigh Fritz NP [address], [address], [place], [address], [facility] [employer] 05/04/2024 14:58:17 05/05/2024 text/html Cheryl is seen tod ay for a 30 day routine rounding visit. Her PMH includes HTN-very labile, HLD, m igraines, anxiety/depression, chronic urinary retention with indwelling covarrubias, and s/p CVA right basal ganglia hemorrhagic stroke in 01/2024, and neck surgery c 5-c7 [facility] for C5-C6 central stenosis and C6-c-7 left foraminal stenosis on 03/20/24 Cheryl is a 58 yo female with hx above initially presented to [facility] ER from rehab with co neck pain radiating to her right upper extremity with paresthesias felt per neurosurgery symptoms from postoperative nerve root inflammation discharged to rehab on 04/04 and returned to [facility] ER on 04/05-04/12 for hypertensive urgency, blurred vision, and severe headache felt related to pt not receiving night time meds at rehab from hospital and required nicard gtt, complicated with brief hypotension episode and midodrine, stabilized on lisinopril. Her workup 03/31-04/04 initially consisted of neurosurgery consult recommending decadron, tylenol, oxycodone, morphine and tizanidine. She was started on methylprednisone and oxycodone and baclofen changed to 10 mg tid prn spasm and no meds dc'd. Her workup on 04/05-04/12 consisted of: Neurosurgery consult rec no acute tx. CT head and neck show similar results to previous with moderate left vertebral narrowing which is new. Recommendation included: dilaudid, ibuprofen, increasing gabapentin, cont baclofen and tyl , and a lidoderm patch, aswell as restarting a medrol dose bibi. MRI cervical spine could not be performed as pt was scratching site of machine and exam ended. Of note on 01/30/24MRI notable for: right internal capsule thalmic hemorrhage Since at [facility]: On 04/27 she was sent to Er for chest pain and ruled out for acute concern and sent back to rehab shortly after. She was seen by psych rn on 04/28 and started on buspar 10 mg po bid for her severe anxiety with some decreased behaviors. She remains on antibiotics for UTI, due to final C&S results (>100K E. Coli ESBL and 50-99K Pseudomonas) change required, now on levaquin and Augmentin to cover these orgs completed on 05/04 and levaquin finished. She is currently denying symptoms of UTI with chronic covarrubias in place drainage clear yellow urine. Pt remains working with therapy and she states she may need a walker for home. She is a one assist currently but getting stronger daily. Labs reviewed and stable from 05/01/24. Her pain is generally managed with dilaudid 1-2 times per day still decreased from 8mg po dilaudid several times a day. Her pain is adjuncted with gabapentin, briofreeze, ibuprofen, lidocaine patch, baclofen and tylenol. She reports she wants more dilaudid and more clonazepam for home and admits to taking extra at home which is not always good. She seems to be med seeking and aware she is try spacing out the meds and use when needed only as noted in hospital summaries. She has a fu with neurosurgery on jun 21 at 3pm On exam, Cheryl is sitting in the activity room in [facility]. She dose have a mild outburst at another resident to get away as she felt he was too close and then she settles down. Residents were at that time. She denies any other concerns today. Her weight is 191 lbs which is approx to 190 lbs on admission. [facility] full code, signed 04/13/24 Kyleigh Fritz, DIAMOND [address], [address], [place], [address], [facility] [employer] 05/05/2024 11:33:54 05/08/2024 text/html Cheryl is a pleasa nt 58 yr old yr female seen today for discharge. Her PMH includes HTN-very labile, HLD, m igraines, anxiety/depression, chronic urinary retention with indwelling covarrubias, and s/p CVA right basal ganglia hemorrhagic stroke in 01/2024, and neck surgery c 5-c7 [facility] for C5-C6 central stenosis and C6-c-7 left foraminal stenosis on 03/20/24 Cheryl is a 58 yo female with hx above initially presented to [facility] ER from rehab with co neck pain radiating to her right upper extremity with paresthesias felt per neurosurgery symptoms from postoperative nerve root inflammation discharged to rehab on 04/04 and returned to [facility] ER on 04/05-04/12 for hypertensive urgency, blurred vision, and severe headache felt related to pt not receiving night time meds at rehab from hospital and required nicard gtt, complicated with brief hypotension episode and midodrine, stabilized on lisinopril. Her workup 03/31-04/04 initially consisted of neurosurgery consult recommending decadron, tylenol, oxycodone, morphine and tizanidine. She was started on methylprednisone and oxycodone and baclofen changed to 10 mg tid prn spasm and no meds dc'd. Her workup on 04/05-04/12 consisted of: Neurosurgery consult rec no acute tx. CT head and neck show similar results to previous with moderate left vertebral narrowing which is new. Recommendation included: dilaudid, ibuprofen, increasing gabapentin, cont baclofen and tyl , and a lidoderm patch, aswell as restarting a medrol dose bibi. MRI cervical spine could not be performed as pt was scratching site of machine and exam ended. Of note on 01/30/24MRI notable for: right internal capsule thalmic hemorrhage Since at [facility]: On 04/27 she was sent to Er for chest pain and ruled out for acute concern and sent back to rehab shortly after. She was seen by psych rn on 04/28 and started on buspar 10 mg po bid for her severe anxiety with some decreased behaviors. She remains on antibiotics for UTI, due to final C&S results (>100K E. Coli ESBL and 50-99K Pseudomonas) change required, now on levaquin and Augmentin to cover these orgs completed on 05/04 and levaquin finished. She is currently denying symptoms of UTI with chronic covarrubias in place drainage clear yellow urine. Pt remains working with therapy and she states she may need a walker for home. She is a one assist currently but getting stronger daily. Labs reviewed and stable from 05/01/24. Her pain is generally managed with dilaudid 1-2 times per day still decreased from 8mg po dilaudid several times a day. Her pain is adjuncted with gabapentin, briofreeze, ibuprofen, lidocaine patch, baclofen and tylenol. She reports she wants more dilaudid and more clonazepam for home and admits to taking extra at home which is not always good. She seems to be med seeking and aware she is try spacing out the meds and use when needed only as noted in hospital summaries. She has a fu with neurosurgery on jun 21 at 3pm Her weight is 191 lbs which is approx to 190 lbs on admission. On exam she is stable, She is an assist with AD[facility] care . 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 Lux has a follow up appointment with her PCP on 05/23/24. LILLIAN GOMEZ [address], [address], [place], [address], [facility] 05/08/2024 13:35:11 OBGyn Episode No OBEpisode recorded.
--- OUTSIDE RECORDS SUMMARY | 2024-12-05 14:54 | XMS_ITS | Encounter Summary ---
Author Organization [facility] Address [address] [place] [address] Care Team Providers Care Motorcoach Operator Name Role Phone Aliza Paul DO Primary Care Provider [phone] Encounter Details Date Type Department Care Team (Late st Contact Info) Description 09/29/[address] [facility] - Main Lab [address] [facility] [place] [address] Aliza Paul DO [address] [place], [place] Urinary tract infection, site not specified Social History Tobacco Use Types Packs/Day Years Used Date Smoking Tobacco: Never Assessed Sex and Gender Information Value Date Recorded Sex Assigned at Not on file Gender Identity Not on file Sexual Orientation Not on file Job Start Date Occupation Industry Not on file Not on file Not on file documented as of this encounter Plan of Treatment Not on file documented as of this encounter Procedures Procedure Name Priority Date/Time Associated Diagnosis Comments CULTURE URINE Routine 09/29/2024 3:30 PM EST Urinary tract infection, site not specified documented in this encounter Results * (ABNORMAL) Culture urine (09/29/2024 3:30 PM EST) Culture, Urine >100,000 CFU/mL Proteus mirabilis(A ) OFELIA 10/01/2024 9:03 AM EST [facility] Comment: Edited result: Previously reported as Proteus species on 09/30/2024 at 1159 EST. Urine Urine specimen from urinary conduit / Unknown 09/29/2024 3:30 PM EST 09/29/2024 6:23 PM EST Narrative [facility] - 10/01/2024 9:03 AM EST Additional colony types present in insignificant amounts. Organism Antibiotic Method Susceptibility Proteus mirabilis Amoxicillin/Clavulanate OFELIA 4 ug/ml: Susceptible Proteus mirabilis Ampicillin/Sulbactam OFELIA <=2 ug/ml: Susceptible Proteus mirabilis Piperacillin/Tazobactam OFELIA <=4 ug/ml: Susceptible Proteus mirabilis Cefazolin (Urine) OFELIA 4 ug/ml: Susceptible Proteus mirabilis Cefoxitin OFELIA <=4 ug/ml: Susceptible Proteus mirabilis Ceftazidime OFELIA <=0.5 ug/ml: Susceptible Proteus mirabilis Ceftriaxone OFELIA <=0.25 ug/ml: Susceptible Proteus mirabilis Cefepime OFELIA <=0.12 ug/ml: Susceptible Proteus mirabilis Meropenem OFELIA <=0.25 ug/ml: Susceptible Proteus mirabilis Amikacin OFELIA 4 ug/ml: Susceptible Proteus mirabilis Gentamicin OFELIA <=1 ug/ml: Susceptible Proteus mirabilis Ciprofloxacin OFELIA <=0.06 ug/ml: Susceptible Proteus mirabilis Levofloxacin OFELIA <=0.12 ug/ml: Susceptible Proteus mirabilis Nitrofurantoin OFELIA 256 ug/ml: Resistant Proteus mirabilis Trimethoprim/Sulfamethoxazole OFELIA <=20 ug/ml: Susceptible Aliza Paul DO LAB MICROBIOLOGY - GENERAL ORDERABLES [facility] [address] [place] [address], documented in this encounter Visit Diagnoses Diagnosis Urinary tract infection, site not specified documented in this encounter Care Teams Motorcoach Operator Relationship Specialty Start Date End Date Aliza Paul DO [address] [place] [address] PCP - General Family Medicine 10/04/24 documented as of this encounter
--- OUTSIDE RECORDS SUMMARY | 2024-12-05 14:54 | XMS_ITS | Encounter Summary ---
Author Organization [employer] Address [address] [place] [address] [place] [address] Care Team Providers Care Knife Setter Name Role Phone Aliza Paul DO Primary Care Provider [phone] Lesley Ingram Unavailable Unavailable Rosi Castro RN Unavailable [phone] Reason for Visit * Reason Onset Date Comments Nurse Triage 09/13/2024 Encounter Details Date Type Department Care Team ([facility] st Contact Info) Description 09/13/[address] [facility] [address] [place], [place] [phone] Aliza Paul DO [address] [place] [address] Nurse Triage Social History Tobacco Use Types [...] encounter Miscellaneous Notes * Telephone Encounter - Louise Abebe RN - 09/13/2024 3:15 PM EST Triage call Pt reports urine has been cloudy for a couple of days. Covarrubias cath was placed 5 months ago due to stroke. Pt reports the covarrubias catheter was changed 2 days ago by nurse in home. Nurse won'tbe back till Wednesday09/18/24 now. Pt is offered to come to [facility] which is open till 8pm today but, doesn't have transportation. Pt reports will come tomorrow to [facility] open 830am -400pm. Pt requests an uber ride for tomorrow. Uber is scheduled for 1155am pick pack worker at Pt address for tomorrow. Pt is aware and will be waiting outside apartment. Pt agrees with this disposition. Protocol Used: Urinary Catheter (e.g., Covarrubias) Symptoms and Questions (Adult) Protocol-Based Disposition: See in Office or Video Visit Today Override (Final) Disposition: See in Office or Video Visit Today or Tomorrow Override Reason: Transportation not available Video visit not offered Positive Triage Questions: * Cloudy urine lasts > 24 hours and not cleared by increased fluid intake * Foul-smelling urine (urine smells bad) * All higher-acuity triage questions were negative * Telephone Encounter - Merlene Kolb - 09/13/2024 2:19 PM EST Symptom: Urination Pain Outcome: Schedule a same-day appointment or talk to a nurse or provider today Reason: Caller denied all higher acuity questions The caller accepted this outcome. documented in this encounter Plan of Treatment Upcoming Encounters Date Type Department Care Team (Late st Contact Info) Description 12/06/2024 10:45 AM EST Office Visit [facility] [address] [place] [address] Aliza Paul DO [address] [place] [address] 02/08/2025 3:00 PM EDT Office Visit [facility] OPTOMETRY [address] [place] [address] Kimberly Gonzalez, OD [address] [place] [address] documented as of this encounter Visit Diagnoses Not on filedocumented in this encounter Additional Health Concerns Assessment Noted Time PHQ-9 Depression Total Score: 15 024 9:20 AM EDT documented as of this encounter Care Teams Knife Setter Relationship Specialty Start Date End Date Aliza Paul DO [address] [place] [address] PCP - General Family Medicine 02/23/12 Lesley Ingram Community Health Worker 05/17/24 Rosi Castro RN [address] [place] [address] Heel Buffer 05/17/24 [facility] 07/27/24 documented as of this encounter
--- OUTSIDE RECORDS SUMMARY | 2024-12-05 14:54 | XMS_ITS | Encounter Summary ---
Author Organization [employer] Address [address] [place] [address] [place] [address] Care Team Providers Care Special Education Instructor Name Role Phone Aliza Paul DO Primary Care Provider [phone] Lesley Ingram Unavailable Unavailable Rosi Castro RN Unavailable [phone] Reason for Visit * Reason Onset Date Comments PT-1 10/19/2024 Encounter Details Date Type Department Care Team ([facility] st Contact Info) Description 10/19/2024 Telephone [facility] MEDICINE [address] [place], [place] [phone] Aliza Paul DO [address] [place] [address] PT-1 Social History Tobacco Use Types Packs/Day Years [...] housing situation today? I have enzoshahnaz barboza 03/09/[address] you [...] encounter Miscellaneous Notes * Telephone Encounter - Timoteo Blank - 10/19/2024 2:53 PM EST Patient calling requesting PT1 Home Address verified: Y/N: Yes Provider name or facility name: [facility] Facility Address: [address] Escort needed: Y/N: Yes Do you have a wheelchair: Y/N: Yes If yes- Manual or electric: Sathish Visits: Once a month - Patient calling requesting PT1 Home Address verified: Y/N: Yes Provider name or facility name: [facility] Facility Address: [address] [place] [address] Escort needed: Y/N: Yes Do you have a wheelchair: Y/N: Yes If yes- Manual or electric: Sathish Visits: Once a month documented in this encounter Plan of Treatment Upcoming Encounters Date Type Department Care Team (Late st Contact Info) Description 12/06/2024 10:45 AM EST Office Visit [facility] [address] [place] [address] Aliza Paul DO [address] [place] [address] 02/08/2025 3:00 PM EDT Office Visit [facility] OPTOMETRY [address] [place] [address] Kimberly Gonzalez OD [address] [place] [address] documented as of this encounter Visit Diagnoses Not on filedocumented in this encounter Additional Health Concerns Assessment Noted Time PHQ-9 Depression Total Score: 15 024 9:20 AM EDT documented as of this encounter Care Teams Special Education Instructor Relationship Specialty Start Date End Date Aliza Paul DO [address] [place] [address] PCP - General Family Medicine 02/23/12 Lesley Ingram Community Health Worker 05/17/24 Rosi Castro RN [address] [place] [address] Fish Rod Maker 05/17/24 [facility] 07/27/24 documented as of this encounter
--- OUTSIDE RECORDS SUMMARY | 2024-12-05 14:54 | XMS_ITS | Encounter Summary ---
Author Organization [employer] Address [address] [place] [address] 7 [place] [address] Care Team Providers Care Electric Power Superintendent Name Role Phone Beverly Aliza Primary Care Provider + [phone] Lesley Ingram Unavailable Unavailable Rosi Castro RN Unavailable [phone] Encounter Details Date Type Department Care Team (Late st Contact Info) Description 11/23/2024 Orders Only GENERIC EXTERNAL DATA DEPARTMENT Provider, Generic External Data Social History Tobacco Use Types Packs/Day Years [...] Description 12/06/2024 10:45 AM EST Office Visit [facility] MEDICINE [address] [place] [address] Aliza Paul DO [address] [place] [address] 02/08/2025 3:00 PM EDT Office Visit [facility] OPTOMETRY [address] [place] [address] Kimberly Gonzalez, OD [address] [place] [address] documented as of this encounter Procedures Procedure Name Priority Date/Time Associated Diagnosis Comments DRUG MONITOR, PANEL 1, SCREEN, URINE Routine 11/23/2024 12:48 PM EST URINALYSIS, COMPLETE, WITH REFLEX TO CULTURE Routine 11/23/2024 12:47 PM EST documented in this encounter Results * (ABNORMAL) Drug Monitoring, Panel 1, Screen, Urine (11/23/2024 12:48 PM EST) Opiate Screen Urine Not Detected Not Detect [facility] Comment:Opiate cut-off is 30 0 ng/mL.Positive results are unconfirmed and should not be used fornon-medical purposes. Barbiturates, Urine Not Detected Not Detect [facility] Comment:Barbiturate cut-off is 200 ng/mL.Positive results are unconfirmed and should not be used fornon-medical purposes. Phencyclidine Screen Urine Not Detected Not Detect [facility] Comment:Phencyclidine cut-of f is 25 ng/mL.Positive results are unconfirmed and should not be used fornon-medical purposes. Amphetamine Screen Urine Not Detected Not Detect [facility] Comment:Amphetamine cut-off is 1000 ng/mL.Positive results are unconfirmed and should not be used fornon-medical purposes. Benzodiazepines Screen Urine Not Detected Not Detect [facility] Comment:Benzodiazepine cut-o ff is 200 ng/mL.Positive results are unconfirmed and should not be used fornon-medical purposes. Cocaine Screen Urine POSITIVE(A) Not Detect [facility] Comment:Cocaine cut-off is 3 00 ng/mL.Positive results are unconfirmed and should not be used fornon-medical purposes. Cannabinoid Screen Urine POSITIVE(A) Not Detect [facility] Comment:Cannabinoid cut-off is 50 ng/mL.Positive results are unconfirmed and should not be used fornon-medical purposes. Methadone Screen, Urine Not Detected Not Detect ng/mL [facility] Comment:Methadone cut-off is 300 ng/mL.Positive results are unconfirmed and should not be used fornon-medical purposes. FENTANYL URINE Not Detected Not Detect [facility] Comment:Fentanyl cut-off is 1 ng/mL.Positive results are unconfirmed and should not be used fornon-medical purposes. Oxycodone Urine Screen Not Detected Not Detect ng/mL [facility] Comment:Oxycodone cut-off is 100 ng/mL.Positive results are unconfirmed and should not be used fornon-medical purposes. Buprenorphine Screen Not Detected Not Detect ng/mL [facility] Comment:Buprenorphine cut-of f is 5 ng/mL.Positive results are unconfirmed and should not be used fornon-medical purposes. 11/23/2024 12:4 8 PM EST 11/23/2024 12:51 PM EST us Generic External Data Provider LAB URINE ORDERAB LES Final Result [facility] [address] [place] [phone] * (ABNORMAL) Urinalysis, Complete, with Reflex to Culture (11/23/2024 12:47 PM EST) Color Urine Yellow [facility] Appearance Urine Clear [facility] PH 6.0 5.0 - 9.0 [facility] Glucose Urine UA Negative Negative mg/dL [facility] Urine Blood Large (3+)(A) Negative [facility] Specific Rinard - Urine 1.025 1.005 - 1.025 [facility] Urine Protein Trace Neg-Trace mg/dL [facility] Urine Ketones Negative Negative mg/dL [facility] Nitrite Urine Negative Negative [facility] Leukocyte Esterase Urine Small (1+)(A) Negative [facility] RBC Urine >20(A) 0 - 2 /HPF [facility] Urine WBC 6-10(A) 0 - 5 /HPF [facility] Urine Squamous Epithelial Cell 0-2 0 - 2 /HPF [facility] Urine Bacteria None Seen None Seen [facility] Hyaline Casts, Urine 3-5 0 - 2 /LPF [facility] 11/23/2024 12:4 7 PM EST 11/23/2024 12:51 PM EST Narrative [facility] - 11/23/2024 12:58 PM EST Urine, Quinone[place] us Generic External Data Provider LAB URINE ORDERAB LES Final Result [facility] [address] [place] [phone] documented in this encounter Visit Diagnoses Not on filedocumented in this encounter Additional Health Concerns Assessment Noted Time PHQ-9 Depression Total Score: 15 024 9:20 AM EDT documented as of this encounter Care Teams Electric Power Superintendent Relationship Specialty Start Date End Date Aliza Paul DO [address] [place] [address] PCP - General Family Medicine 02/23/12 Lesley Ingram Community Health Worker 05/17/24 Rosi Castro RN [address] [place] [address] Epic Ambulatory Analyst 05/17/24 [facility] 07/27/24 documented as of this encounter
--- OUTSIDE RECORDS SUMMARY | 2024-12-05 14:54 | XMS_ITS | Clinical Summary ---
Author Organization [address] [facility] Address [address] [place] [address] Phone Care Team Providers Care Quarry Supervisor Name Role Phone Aliza Paul DO Primary Care Provider [phone] Encounters Date Type Department Care Team Description 09/29/2024 Lab Requisition [facility] - Main Lab [address] [facility] [place] [address] Aliza Paul DO Urinary tract infection, site not specified from Last 3 Months Social History Tobacco Use Types Packs/Day Years Used Date Smoking Tobacco: Never Assessed Sex and Gender Information Value Date Recorded Sex Assigned at Not on file Gender Identity Not on file Sexual Orientation Not on file Job Start Date Occupation Industry Not on file Not on file Not on file Plan of Treatment Health Maintenance Due Date Last Done Comments Breast Cancer Screening 1965 DTaP,Tdap,and Td Vaccines (1 - Tdap) 1984 Hepatitis B Vaccines (1 of 3 - 19+ 3-dose series) 1984 Cervical Cancer Screening: P ap Smear 1986 Zoster Vaccines (1 of 2) 2015 COVID-19 Vaccine ( - 2023-2 5 season) 2024 Influenza Vaccine (#1) 2024 Colorectal Cancer Screening: Colonoscopy 09/30/2024 Depression Screening 09/30/2024 HIV Screening 09/30/2024 Hepatitis C Screening 09/30/2024 Social Influencers of Health Screening 09/30/2024 RSV Immunization Patients 60 + Years Old (1 - 1-dose 75+ series) 2040 HIB Vaccines Aged Out No longer eligi ble based on patient's age to complete this topic HPV Vaccines Aged Out No longer eligi ble based on patient's age to complete this topic Hepatitis A Vaccines Aged Out No long er eligible based on patient's age to complete this topic IPV Vaccines Aged Out No longer eligi ble based on patient's age to complete this topic MMR Vaccines Aged Out No longer eligi ble based on patient's age to complete this topic Meningococcal ACWY Vaccine Aged Out N o longer eligible based on patient's age to complete this topic Pneumococcal Vaccine: Pediat rics (0 to 5 Years) and At-Risk Patients (6 to 64 Years) Aged Out No longer eligible b ased on patient's age to complete this topic RSV Immunization Patients Un katie 20 months Aged Out No longer eligible b ased on patient's age to complete this topic Varicella Vaccines Aged Out No longer eligible based on patient's age to complete this topic Procedures Procedure Name Priority Date/Time Associated Diagnosis Comments CULTURE URINE Routine 09/29/2024 3:30 PM EST Urinary tract infection, site not specified from Last 3 Months Results * (ABNORMAL) Culture urine (09/29/2024 3:30 PM EST) Culture, Urine >100,000 CFU/mL Proteus mirabilis(A ) OFELIA 10/01/2024 9:03 AM EST [facility] Comment: Edited result: Previously reported as Proteus species on 09/30/2024 at 1159 EST. Urine Urine specimen from urinary conduit / Unknown 09/29/2024 3:30 PM EST 09/29/2024 6:23 PM EST [facility] - 10/01/2024 9:03 AM EST Additional [...] Paul DO LAB MICROBIOLOGY - GENERAL ORDERABLES [facility] [address] [place] [address], from Last 3 Months Care Teams Quarry Supervisor Relationship Specialty Start Date End Date Aliza Paul DO [address] [place] [address] PCP - General Family Medicine 10/04/24
[2024-12-05 15:51] VITALS: BP 157/83; PULSE 55; RESP 16; TEMP 36.2; O2SAT 96
[2024-12-05 17:58] VITALS: BP 128/92; PULSE 56; RESP 18; TEMP 36.6; O2SAT 97
[2024-12-05] MEDS: Acetaminophen 325 MG TABLET 650 MG PO (18:16)
--- NOTE | 2024-12-05 18:18 | PC.NURSE ---
report given to alex SOTO at this time. pt medicated prior to discharge per request.
[2024-12-05 18:19] VITALS: BP 128/92; PULSE 56; RESP 18; TEMP 36.6; O2SAT 97
== END 2024-12-05 18:19 | disposition home or self-care (01) ==
PROVIDERS: Emergency Provider Emergency Medicine Emergency Medical Services; PCP Family Medicine
DX: S62.525A Nondisplaced fracture of distal phalanx of left thumb, initial encounter for closed fracture (principal); Y01.XXXA Assault by pushing from high place, initial encounter; M25.511 Pain in right shoulder; Y93.9 Activity, unspecified; Y92.9 Unspecified place or not applicable; Y99.9 Unspecified external cause status
CPT/HCPCS: 29130; 70450; 71101; 72125; 73030; 73130; 99283; 99284

== ENCOUNTER → 2024-12-05 14:03 | Outpatient (BNV) | payer MEDICAID, SELFPAY | PROVIDERS: Emergency Provider Emergency Medicine Emergency Medical Services; PCP Family Medicine; Visit Provider Radiology Diagnostic Radiology | DX: M47.812 Spondylosis without myelopathy or radiculopathy, cervical region (principal); M43.22 Fusion of spine, cervical region; R51.9 Headache, unspecified; W19.XXXA Unspecified fall, initial encounter; R07.81 Pleurodynia; M25.511 Pain in right shoulder; S62.525A Nondisplaced fracture of distal phalanx of left thumb, initial encounter for closed fracture; M85.842 Other specified disorders of bone density and structure, left hand | CPT/HCPCS: 70450; 71101; 72125; 73030; 73130 ==

== ENCOUNTER 2024-12-08 11:08 | Emergency (ER) | payer MEDICAID, SELFPAY ==
[2024-12-08] VITALS (8 sets, daily range): BP systolic 134–220; BP diastolic 53–103; PULSE 72–82; RESP 14–26; TEMP 36.4–36.6; O2SAT 92–97; BMI 33.0
--- NOTE | ~2024-12-08 | XR_ITS ---
EXAMINATION: XR CHEST 1 VIEW HISTORY: cough COMPARISON: Comparison is made with the prior examination dated 12/05/2024. FINDINGS: A single AP portable view of the chest performed at 11:51 AM is submitted. The lungs are expanded and clear. There is no pleural effusion, pneumothorax, or pulmonary vascular congestion. The heart is normal in size. There is degenerative disc disease of the spine. There is an old fracture deformity of the right humeral neck. XR/XR chest 1V IMPRESSION: No acute cardiopulmonary abnormality. Electronically signed by: Ulises Mir MD 12/08/2024 12:05 PM [facility]
--- NOTE | 2024-12-08 11:25 | ECG_ITS ---
Test Reason : weakness Blood Pressure : */* mmHG Vent. Rate : 82 BPM Atrial Rate : 82 BPM P-R Int : 146 ms QRS Dur : 80 ms QT Int : 390 ms P-R-T Axes : 14 -33 19 degrees QTcB Int : 455 ms Sinus rhythm with frequent Premature ventricular complexes Left axis deviation Moderate voltage criteria for LVH, may be normal variant ( R in aVL , [place] product ) Abnormal ECG When compared with ECG of 23-Nov-2024 12:01, Premature ventricular complexes are now Present Referred By: Suzy Frye Electronically Signed By: JOE MCDONALD
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
[2024-12-08] MEDS: Albuterol Sulfate 2.5 MG, Albuterol/Iprat 2.5/0.5MG 3 ML 3 ML INHALE (11:40)
[2024-12-08 11:52] LABS: MANUAL DIFF FLAG NO
[2024-12-08 11:54] LABS: Basophils Absolute Auto 0.1 X10*3/uL (0.0-0.2); Basophils Percent Auto 0.7 % (0-2); Eosinophils Absolute Auto 0.4 X10*3/uL (0.0-0.4); Eosinophils Percent Auto 3.5 % (0-4); Hematocrit 42.6 % (37.0-47.0); Hemoglobin 14.3 g/dl (12.0-16.0); Imm Gran Abs Auto 0.03 X10*3/uL (0.00-0.03); Imm Gran Pct Auto 0.3 % (0.0-0.4); Mean Corpuscular HGB Conc 33.6 g/dl (31.0-35.0); Mean Corpuscular Hemoglobin 26.7 pg (27.0-33.0); Mean Corpuscular Volume 79.5 fL (80.0-98.0); Mean Platelet Volume 9.3 fL (9.4-12.3); Monocytes Absolute Auto 0.8 X10*3/uL (0.1-1.2); Monocytes Percent Auto 7.3 % (2-11); Neutrophils Absolute Auto 6.4 x10*3/uL (2.0-8.3); Neutrophils Percent Auto 60.2 % (45-73); Platelet Count 341 X10*3/uL (160-400); Red Blood Count 5.36 X10*6/uL (4.20-5.50); Red Cell Distribution Width 13.5 % (11.0-16.0); White Blood Count 10.6 X10*3/uL (4.8-10.8)
[2024-12-08 12:11] LABS: Alanine Aminotransferase 12 U/L (0-31); Albumin Level 3.8 g/dL (3.5-5.0); Alkaline Phosphatase 84 U/L (39-117); Anion Gap 11 (12-20); Aspartate Amino Transferase 12 U/L (5-31); Bilirubin Direct 0.2 mg/dL (0.0-0.5); Bilirubin Total 0.5 mg/dL (0.0-1.0); Blood Urea Nitrogen 15 mg/dL (9-16); Calcium 9.9 mg/dL (8.4-10.2); Carbon Dioxide 24 mmol/L (22-29); Chloride 110 mmol/L (96-108); Creatinine Clr Calc Pharmacy 89.2; Estimated Glomerular Filt Rate > 60; Glucose Random 104 mg/dL (60-115); Magnesium 1.8 mg/dL (1.6-2.6); Potassium 3.4 mmol/L (3.3-5.1); Sodium 142 mmol/L (135-145); Total Protein 7.2 g/dL (6.5-8.0)
[2024-12-08 12:15] LABS: B Type Natriuretic Peptide 107 pg/mL (<100)
--- OUTSIDE RECORDS SUMMARY | 2024-12-08 12:15 | XMS_ITS | Encounter Summary ---
Author Organization [employer] Address [address] [place] [address] [address] [place] [address] Care Team Providers Care Broadcast Supervisor Name Role Phone Aliza Paul DO Primary Care Provider [phone] Lesley Ingram Unavailable Unavailable Rosi Castro RN Unavailable [phone] Reason for Visit * Reason Comments Transition Of Care (Tcm) HDF- scheduled -SDOH unable to complete. Encounter Details Date Type Department Care Team ([facility] st Contact Info) Description 11/28/2024 Patient Outreach [facility] [address], [place] [phone] Aliza Paul DO [address] [place] [address] Transition Of Care (Tcm) (HDF- scheduled -SDOH [...] 11/28/24 1259 Hospital Discharges and Admission for [facility] Type of Visit Hospital Admission Date of Admission/Visit 11/23/24 Date of Discharge 11/25/24 [facility] Diagnosis RSV Disposition Discharged Home Follow-Up [...] min on 12/06/2024 at 10:45am with . Atm Servicer spoke with nurses to see if patient [...] Wednesdays, and Walk-In Urgent Care Located in [facility] of [facility]. Patient provided with after-hours line for [facility], , which offer night time triage service and option to transfer to fiction and nonfiction author provider if needed. CC scanned discharge summary into patient's chart. CC was unable to complete PVP screening, will need to be complete it inoffice. documented in this encounter Plan of Treatment Upcoming Encounters Date Type Department Care Team (Late st Contact Info) Description 12/18/2024 2:45 PM EST Office Visit [facility] [address] [place] [address] Gardenia Doyle MD [address] [place] [address] 02/08/2025 3:00 PM EDT Office Visit [facility] OPTOMETRY [address] [place] [address] Kimberly Gonzalez OD [address] [place] [address] documented as of this encounter Visit Diagnoses Not on filedocumented in this encounter Additional Health Concerns Assessment Noted Time PHQ-9 Depression Total Score: 15 024 9:20 AM EDT documented as of this encounter Care Teams Broadcast Supervisor Relationship Specialty Start Date End Date Aliza Paul DO [address] [place] [address] PCP - General Family Medicine 02/23/12 Lesley Ingram Community Health Worker 05/17/24 Rosi Castro RN [address] [place] [id number] Orthotic Finish Grinding Technician 05/17/24 [facility] 07/27/24 documented as of this encounter
--- OUTSIDE RECORDS SUMMARY | 2024-12-08 12:16 | XMS_ITS | Encounter Summary ---
Author Organization [employer] Address [address] [place] [address] [place] [address] Care Team Providers Care Sugar Chipper Machine Operator Name Role Phone Aliza Paul DO Primary Care Provider [phone] Lesley Ingram Unavailable Unavailable Rosi Castro RN Unavailable [phone] Reason for Visit * Reason Onset Date Comments No Show 12/06/2024 Encounter Details Date Type Department Care Team ([facility] st Contact Info) Description 12/06/2024 Telephone [facility] [address] [place], [place] [phone] Aliza Paul DO [address] [place], [place] [phone] No Show Social History Tobacco Use Types Packs/Day Years [...] encounter Miscellaneous Notes * Telephone Encounter - Cori Aly RN - 12/06/2024 12:34 PM EST Addressed in other encounter from 12/06/24. * Telephone Encounter - Pascale Acevedo - 12/06/2024 11:10 AM EST Pt no showed to appt on 12/06/24 documented in this encounter Plan of Treatment Upcoming Encounters Date Type Department Care Team (Late st Contact Info) Description 12/18/2024 2:45 PM EST Office Visit [facility] [address] [place] [address] Gardenia Doyle MD [address] [place] [address] 02/08/2025 3:00 PM EDT Office Visit [facility] OPTOMETRY [address] [place] [address] Kimberly Gonzalez OD [address] [place] [address] documented as of this encounter Visit Diagnoses Not on filedocumented in this encounter Additional Health Concerns Assessment Noted Time PHQ-9 Depression Total Score: 15 024 9:20 AM EDT documented as of this encounter Care Teams Sugar Chipper Machine Operator Relationship Specialty Start Date End Date Aliza Paul DO [address] [place] [address] PCP - General Family Medicine 02/23/12 Lesley Ingram Community Health Worker 05/17/24 Rosi Castro RN [address] [place] [address] Mail Clerk 05/17/[address] [facility] 07/27/24 documented as of this encounter
--- OUTSIDE RECORDS SUMMARY | 2024-12-08 12:16 | XMS_ITS | Data Portability ---
Author Organization [facility] Iris Experience [facility], Main Office Address [address], [address] [place] [address] Care Team Providers Care Social Group Worker Name Role Phone TAYLOR ELIAS - 2ND [...] Orders Dilaudid 4 mg tablet 2023 024 [facility] , [address] [place], [address], 17:08:30 Patient TargetsNo targets recorded. Patient InstructionsNo instructions recorded. Reason for Referral None Reported. Problems Name Problem SNOMED Code Status Onset Date Resolution Date Notes Provider Name and Address Organization Details Recorded Time Hypertens ollie emergency 990158123429 104 Active 2023 Kyleigh Fritz NP [address] [facility], [address], [place], [address], [facility] 4 12:37:24 Headache 65285794 Active 2023 Kyleigh Fritz NP [address] [facility], [address], [place], [address], [facility] 4 12:37:35 Essential hypertens ion 66207201 Active 2023 Kyleigh Fritz NP [address] [facility], [address], [place], [address], [facility] 4 12:37:52 Chronic pain following spinal surgery Active 2023 Kyleigh Fritz NP [address] [facility], [address], [place], [address], [facility] 4 12:38:52 Leukocyto sis 337247973 Active 2023 Kyleigh Fritz NP [address] [facility], [address], [place], [address], [facility] 4 12:39:04 Retention of urine 550413230 Completed 202304/13/2024 Kiana Cassidy MD [address] [facility], [address], [place], [address], [facility] 4 15:44:08 Anxiety 74932595 Active 2023 Kyleigh Fritz NP [address] [facility], [address], [place], [address], [facility] 4 12:39:32 History of cervical discectom y 569155293247 69309 Completed 202304/13/2024 Kyleigh Fritz NP [address] [facility], [address], [place], [address], [facility] 4 13:00:38 History of hemorrhag ic cerebrova scular accident with residual deficit 325277449343 106 Active 2023 Kyleigh Fritz NP [address] [facility], [address], [place], [address], [facility] 4 13:02:54 Gastroeso phageal reflux disease 861630057 Active 2023 Kyleigh Fritz NP [address] [facility], [address], [place], [address], [facility] 4 13:04:09 Retention of urine 350165889 Active 2023 Kiana Cassidy MD [address] [facility], [address], [place], [address] , [facility] [place] 4 15:44:08 Urinary tract infectiou s disease 95870967 Active 2023 Kyleigh Fritz NP [address] [facility], [address], [place], [address] , [facility] [place] 4 13:32:30 Problem Notes None recorded. Medical [...] Updated DateTime 4 160.02 cm 32.6 kg/m2 01912 g 90 /min 18 /min 97.2 [degF] 98 % 98 % 115 mm[Hg] 80 mm[Hg] Kyleigh Fritz NP [address] [facility], [address], [place], [address], [facility] [place] 4 09:13:16 Date Recorded Body height Body mass index (BMI) Body weight Respiratory rate Heart rate Body temperature Oxygen saturation Oxygen saturation in Arterial blood by Pulse oximetry Systolic blood pressure Diastolic blood pressure Provider Name and Address Organization Details Last Updated DateTime 4 160.02 cm 32.6 kg/m2 76072 g 19 /min 86 /min 97.5 [degF] 96 % 96 % 110 mm[Hg] 70 mm[Hg] Kyleigh Fritz NP [address] [facility], [facility] [address], [place], [address], [facility] 4 16:03:36 Date Recorded Body height Body weight Heart rate Respiratory rate Body temperature Oxygen saturation Oxygen saturation in Arterial blood by Pulse oximetry Systolic blood pressure Diastolic blood pressure Provider Name and Address Organization Details Last Updated DateTime 4 160.02 cm 55810.1 4 g 85 /min 18 /min 97.4 [degF] 95 % 95 % 132 mm[Hg] 82 mm[Hg] Kyleigh Fritz NP [address] [facility] [address], [place], [address], [facility] 4 14:25:19 Date Recorded Body height Body mass index (BMI) Body weight Heart rate Respiratory rate Body temperature Oxygen saturation Oxygen saturation in Arterial blood by Pulse oximetry Systolic blood pressure Diastolic blood pressure Provider Name and Address Organization Details Last Updated DateTime 4 160.02 cm 33.8 kg/m2 37888.1 4 g 83 /min 18 /min 98.1 [degF] 96 % 96 % 130 mm[Hg] 90 mm[Hg] Kyleigh Fritz NP 38 [facility] [address], [place], [address], [facility] 4 11:09:43 Date Recorded Body height Body temperature Heart rate Respiratory rate Oxygen saturation Oxygen saturation in Arterial blood by Pulse oximetry Systolic blood pressure Diastolic blood pressure Provider Name and Address Organization Details Last Updated DateTime 4 160.02 cm 97.9 [degF] 82 /min 18 /min 96 % 96 % 140 mm[Hg] 92 mm[Hg] LILLIAN GOMEZ [address] [facility], [facility] [address], [place], [address], [facility] 4 11:53:33 Social History Question Answer Notes LastModified by Organizat ion Details LastModified Time Tobacco Smoking Status Never Smoker she says not really Kiana Cassidy MD [address] [facility], [address], [place], [address], [facility] 04/14/2024 21:45:44 Do You Have An Advance [...] Do You Have A Medical Power Of Line Tester? Yes Not Invoked Information not available 04/14/2024 [...] Time Tdap 2 completed Helena Rasta null, [facility] 04/07/2024 16:26:44 Tdap 2 completed Helena Magdaleno [facility] 04/07/2024 16:26:51 pneumococcal polysaccharide PPV23 2 completed Helena Magdaleno [facility] 04/07/2024 16:27:39 SARS-COV-2 (COVID-19) vaccine, UNSPECIFIED 2 completed Helena Magdaleno [facility] 04/07/2024 16:28:08 rabies, unspecified formulation 2 completed Helena Magdaleno [facility] 04/07/2024 16:28:22 Past Encounters Encounter ID Performer Location Encounter Start Date Encounter Closed Date Diagnosis/Indication Diagnosis SNOMED-CT Code Diagnosis ICD10 Code Diagnosis Note [id number] Kyleigh Fritz NP [facility] of [address] [address] 04/05/2024 11:38:58 04/11/2024 14:41:13 Hypertensive crisis 074103337 I16.9 pt send to ER for hypertensi ve crisis initially 240/135 unrelieved by lisinopril , oxycodone, and anxiety medsBP 220/122 manually 1 hours post medssend to ER for hypertensi ve crisis Headache 65859686 R51.9 pt with head going to explode feeling and HTN crisis with recent hx of surgery and cvasend to ER for evaluation call [id number] [facility]igh Fritz NP [facility] [address] [address] 04/13/2024 12:11:45 04/17/2024 20:01:07 Hypertensive emergency [id number] 24874 I16.1 felt related to pt not receiving pm meds on admission to rehab requiring nacard gtt and brief hypotensiv e episode with midodrine given felt stable on lisinopril 40 mg po dailymonit or vitals and bp Headache 30559658 R51.9 headache felt to be from hypertensi ve urgency aboveCT head no acute changes Chronic pa in following spinal surgery 9522140669 7102 G89.28 03/31-04/04 c 5-c7 acdf surgery [...] ax, senna dailywean as able Essential hypertension 41840952 I10 bp 148/98 here at 10amsee hypertensi ve emergency abovelisin opril 40 mg po dailymonit or vitals and bpcardiac diet Anxiety 77622604 F41.9 venlafaxin e 75 mg po daily(unsu re of why she is on this)hydro xyzine 50 mg po qid prn (was on bid)aripip razole 10 mg po dialymonit or and supportive care Leukocytosis 147944426 D 72.829 felt likely to medrol dose packmonito r labs weekly History of cervical discectomy 9311314244 8049294 Z98.890 recent hx of 03/31monito r neuros and fu with neuro Retention of urine 76155 4002 R33.9 hx of with chronic foleylast changed on 04/04foley careroutin e monthly changesmon itor History of hemorrhagic cerebrovascular accident with residual deficit 7623657098 30213 Z86.79 hx of stroke with residual deficitCT unremarkab leatorvast atin 20 mg po dailymonit or neuros Gastroesop hageal reflux disease 214702417 K21.9 famotidine 40 mg po dialymonit or [id number] Kiana Cassidy MD [address] [address] 04/14/2024 13:29:20 04/17/2024 20:21:04 Hypertensive emergency 8020516408 10551 I16.1 Resolved inpt. Has had recurrent issues with labile BP including other episodes of hypertensi ve emergency, but then has had soft BPs and BP meds were held or d/c'd.Diff icult to manage. Has been running borderline high since return.Saqib l add HCTZ 25 mg qdContinue lisinopril 40 mg qd.Avoid BB due to bradycardi a.Monitor BP and labs. Headache 17830753 R51.9 With hx of migraines, but recent HAs due to hypertensi ve emergencie s.Monitor for sxs. Chronic pa in following spinal surgery 8722010166 7102 G89.28 Improving slowly in this woman [...] neurosurg on 04/20 as planned. Essential hypertension 16108164 I10 As above. Anxiety 44506906 F41.1 Mood continues to be labile.Con tinue venlafaxin e 75 mg qd, aripiprazo le 10 mg qd and hydroxyzin e 50 mg qid prn.Avoid benzos.Mon itor mood.Consu lt psych prn Leukocytosis 312313192 D 72.828 Much more elevated today.Will get U/A and C&S in this woman with chronic covarrubias.Nusrat tor for signs of infection. History of cervical discectomy 0540812807 6678342 Z98.890 As above. Retention of urine 65362 4002 R33.8 Apparently long standing.W as self cathing prior to stroke, now with chronic covarrubias, last changed on 04/04Contin ue covarrubias care and monthly changesWil l get U/A and C&S as above. History of hemorrhagic cerebrovascular accident with residual deficit 1801296775 59538 I61.1 S/P hemorrhagi c CVA in 01/2024.Con tinue PT/OT as above.Cont inue atorvastat in 20 mg qd.Keep SBP <160Monito r for new neuro sxs. Gastroesop hageal reflux disease 997178482 K21.9 No current sxs.Contin ue famotidine 40 mg qdMonitor for GI sxs. [id number] ATIF MILLER NP [facility] [place] [address] 04/18/2024 14:33:47 04/21/2024 11:31:02 Hypertensive emergency 0028105007 27007 I16.1 Resolved inpt. Has had recurrent issues [...] a.Monitor BP and labs closely Essential hypertension 01100200 I10 As above. Leukocytosis 763175771 D 72.828 Trending up since admission, much better today (11.3)U/A and C&S ordered 04/14, but does not appear it was done - will re-orderCB C, BMP o overt s/s infection at this time.Of note, is completing steroid taper. Headache 44776924 R51.9 With hx of migraines, but recent HAs due to hypertensi ve emergencie s.Monitor for sxs. Chronic pa in following spinal surgery 6506231059 7102 G89.28 Improving slowly in this woman [...] of hemorrhagic cerebrovascular accident with residual deficit 5739546668 67734 I61.1 S/P hemorrhagi c CVA in 01/2024.Con tinue PT/OT as above.Cont inue atorvastat in 20 mg qd.Keep SBP <160Monito r for new neuro sxs. Anxiety 97999730 F41.1 Mood continues to be labile.Con tinue venlafaxin e 75 mg qd, aripiprazo le 10 mg qd and hydroxyzin e 50 mg qid prn.Avoid benzos.Mon itor mood.Consu lt psych prn History of cervical discectomy 0835031848 7648983 Z98.890 As above. Retention of urine 79045 4002 R33.8 Apparently long standing.W as self cathing prior to stroke, now with chronic covarrubias, last changed on 04/04Contin ue covarrubias care and monthly changesWil l get U/A and C&S as above. Gastroesop hageal reflux disease 453747529 K21.9 No current sxs.Contin ue famotidine 40 mg qdMonitor for GI sxs. [id number] ATIF MILLER NP [facility] [address] 04/20/2024 11:26:08 04/25/2024 09:54:45 Hypertensive emergency 1315624400 10574 I16.1 Resolved inpt. Has had recurrent issues [...] monitor BP and labs closely Essential hypertension 18578838 I10 As above. Leukocytosis 070734347 D 72.828 Trending up since admission, much better today (11.3)U/A and C&S ordered 04/14, finally obtained 04/19, positive UA, C&S prelim. >100K E. Coli.Plan -start Keflex 500 mg qid x 7 days plus probiotic. CBC, BMP tor VSOf note, is completing steroid taper. Headache 83727854 R51.9 With hx of migraines, but recent HAs due to hypertensi ve emergencie s.Monitor for sxs. Chronic pa in following spinal surgery 3549328246 7102 G89.28 Improving slowly in this woman [...] of hemorrhagic cerebrovascular accident with residual deficit 8896877849 53198 I61.1 S/P hemorrhagi c CVA in 01/2024.Con tinue PT/OT as above.Cont inue atorvastat in 20 mg qd.Keep SBP <160Monito r for new neuro sxs. Anxiety 97643879 F41.1 Mood continues to be labile.Con tinue venlafaxin e 75 mg qd, aripiprazo le 10 mg qd and hydroxyzin e 50 mg qid prn.Avoid benzos.Mon itor mood.Consu lt psych prn History of cervical discectomy 0624826538 8398781 Z98.890 As above. Retention of urine 07944 4002 R33.8 Apparently long standing.W as self cathing prior to stroke, now with chronic covarrubias, last changed on 04/04Contin ue covarrubias care and monthly changesTre ating UTI as above. Gastroesop hageal reflux disease 867578278 K21.9 No current sxs.Contin ue famotidine 40 mg qdMonitor for GI sxs. [id number] [facility] [address] [place] [address] 04/24/2024 13:06:36 04/27/2024 08:55:22 Hypertensive emergency 6450270998 33212 I16.1 Resolved inpt.noteH as had recurrent issues with labile BP including other episodes of hypertensi ve emergency, but then has had soft BPs and BP meds were held or d/c'd. Remains labile here, but improving in generalcon tHCTZ 25 mg po daily, hold for SBP<110lis inopril 40 mg qd.Avoid BB due to bradycardi a.Continue to monitor BP and labs closely Essential hypertension 81808109 I10 As above.Lorena ins labile here, but improving in generalcon tHCTZ 25 mg po daily, hold for SBP<110lis inopril 40 mg qd.Avoid BB due to bradycardi a.Continue to monitor BP and labs closely Leukocytosis 881726079 D 72.828 Trending down now.see above UTICBC, BMP tor VSOf note, is completing steroid taper. Chronic pa in following spinal surgery 9530350488 7102 G89.28 Improving however, still requiring meds [...] of hemorrhagic cerebrovascular accident with residual deficit 5899638349 58412 I61.1 S/P hemorrhagi c CVA in 01/2024.has had chronic covarrubias since stroke and reports attempted removal several times but is likely chronicCon tinue PT/OT as above.Cont inue atorvastat in 20 mg qd.Keep SBP <160Monito r for new neuro sxs. Anxiety 20845695 F41.1 Mood continues to be labile.Con tinuevenla faxine 75 mg qd, aripiprazo le 10 mg qd and 04/24 hydroxyzin e 50 mg qid and add 50 mg po prn q 24Avoid benzos.Mon itor mood.Consu lt psych prn History of cervical discectomy 2999772272 9702299 Z98.890 As above. Retention of urine 79230 4002 R33.8 Apparently long standing.W as self cathing prior to stroke, now with chronic covarrubias, last changed on 04/04Contin ue covarrubias care and monthly changesTre ating UTI as above. Gastroesop hageal reflux disease 503379272 K21.9 No current sxs.Contin uefamotidi ne 40 mg qdMonitor for GI sxs. Urinary tr act infectious disease 86447589 N39.0 Urine culture results show >100,000 e coli ESBL and gram neg rods pseudomona s.esbl precaution sShe was recently started on keflex 04/21-04/28. Due to resistant esbl and multi-orga nisms will04/24 dc keflex and cont probiotic start levaquin 750 mg po daily x 5 daysaugmen tin 875mg/125 mg po bid x 10 days as these are susceptibl e on culture.mo nitor [id number] ATIF MILLER NP [address] [place] [address] 04/25/2024 10:45:23 04/27/2024 09:53:26 Urinary tract infectious disease 05612808 N39.0 Urine cx. >100,000 e coli ESBL and 50-99K Pseudomona sesbl precaution sKeflex stopped, now on levaquin 750 mg qd x 5d and Augmentin 875 mg bid x 10 d plus probiotic. CBC improvedCl inically stableMain tain fluidsTren d VS, sx. labs Leukocytosis 730096742 D 72.828 Trending down - WNRTreatin g for UTIMonitor VS, trend labsOf note, completed steroid taper. Anxiety 75240428 F41.1 Mood continues to be labile.Con tinue:Venl afaxine 75 mg qdAripipra zole 10 mg qdHydroxyz ine 50 mg qid with recent addition of 50 mg qd prnAvoid benzos.Mon itor mood and behaviorsC onsult psych prn Hypertensi ve emergency 0227424589 73792 I16.1 Hx. of labile BP with significan t highsMeds adjusted.R emains labile here, but improving in generalcon tinue:HCTZ 25 mg qd, hold for SBP<110lis inopril 40 mg qd Avoid BB due to bradycardi a.Continue to monitor BP and labs closely Essential hypertension 36313771 I10 As above.Lorena ins labile here, but improving in generalcon tHCTZ 25 mg po daily, hold for SBP<110lis inopril 40 mg qd. Avoid BB due to bradycardi a.Continue to monitor BP and labs closely Chronic pa in following spinal surgery 6534404120 7102 G89.28 Improving in general, however, still [...] of hemorrhagic cerebrovascular accident with residual deficit 2503469048 59412 I61.1 S/P hemorrhagi c CVA in 01/2024.has had chronic covarrubias since stroke and reports attempted removal several times but is likely chronicCon tinue PT/OT as above.Cont inue atorvastat in 20 mg qd.Keep SBP <160Monito r for new neuro sxs. History of cervical discectomy 8333122588 6293229 Z98.890 As above. Retention of urine 88845 4002 R33.8 Apparently long standing.W as self cathing prior to stroke, now with chronic covarrubias, last changed on 04/04Contin ue covarrubias care and monthly changesTre ating UTI as above. Gastroesop hageal reflux disease 079316687 K21.9 No current sxs.Contin uefamotidi ne 40 mg qdMonitor for GI sxs. [id number] Kyleigh Fritz NP [facility] of [address] [address] 04/27/2024 09:12:38 05/03/2024 16:01:01 Chest pain 72839555 R07.9 call 911 and send to ER for acute chest pain [id number] Kyleigh Fritz NP [facility] [address] [address] 04/28/2024 16:02:42 05/03/2024 16:31:55 Urinary tract infectious disease 50593678 N39.0 Urine cx. >100,000 e coli ESBL and 50-99K Pseudomona sesbl precaution sKeflex stopped, now on levaquin 750 mg qd x 5d and Augmentin 875 mg bid x 10 d plus probiotic. CBC improvedCl inically stableMain tain fluidsTren d VS, sx. labs Leukocytosis 319852616 D 72.828 resolvedTr eating for UTIMonitor VS, trend labsOf note, completed steroid taper. Anxiety 19343450 F41.1 Mood continues to be labile.04/09 1 start buspar 10 mg po bid per psych recContinu e:Venlafax ine 75 mg qdAripipra zole 10 mg qdHydroxyz ine 50 mg qid with recent addition of 50 mg qd prnAvoid benzos.Mon itor mood and behaviorsC onsult psych prn Hypertensi ve emergency 0773030769 54128 I16.1 resolvedbp stable x last three dayscontin ue:HCTZ 25 mg qd, hold for SBP<110lis inopril 40 mg qd Avoid BB due to bradycardi a.Continue to monitor BP and labs closely Essential hypertension 94073438 I10 As above.stab le for last few daysHCTZ 25 mg po daily, hold for SBP<110lis inopril 40 mg qd.Avoid BB due to bradycardi a.Continue to monitor BP and labs closely Chronic pa in following spinal surgery 8325133445 7102 G89.28 Improving in general, however, still [...] of hemorrhagic cerebrovascular accident with residual deficit 5671312270 84429 I61.1 S/P hemorrhagi c CVA in 01/2024.has had chronic covarrubias since stroke and reports attempted removal several times but is likely chronicCon tinuePT/OT as above.ator vastatin 20 mg qd.Keep SBP <160Monito r for new neuro sxs. History of cervical discectomy 5960359986 0762281 Z98.890 As above. Retention of urine 59980 4002 R33.8 Apparently long standing. with recent utiWas self cathing prior to stroke, now with chronic covarrubias, last changed on 04/04Contin ue covarrubias care and monthly changesTre ating UTI as above. [id number] Kyleigh Fritz NP [address] [address] 05/04/2024 13:57:33 05/09/2024 10:01:55 Anxiety 78359809 F41.1 Mood continues to be labile with anxiety. start buspar 10 mg po bid per psych rec05/04 cont buspar as it is helping with anxiety and consider increasing Cont:Venla faxine 75 mg qdAripipra zole 10 mg qdHydroxyz ine 50 mg qid with recent addition of 50 mg qd prnAvoid benzos.Mon itor mood and behaviorsC onsult psych prn Urinary tr act infectious disease 35864197 N39.0 Urine cx. >100,000 e coli ESBL and 50-99K Pseudomona sesbl precaution sKeflex stopped, now on levaquin 750 mg qd x 5d and Augmentin 875 mg bid x 10 d plus probiotic. to finish todayClini pebbles stableMain tain fluidsTren d VS, sx. labs Essential hypertension 55138562 I10 stable and 132/82 todayHCTZ 25 mg po daily, hold for SBP<110lis inopril 40 mg qd.was on norvasc at home but dc'd in hospital for low bpAvoid BB due to bradycardi a.Continue to monitor BP and labs closely and for need to restart meds Chronic pa in following spinal surgery 5699868123 7102 G89.28 Improving in general, however, still [...] of hemorrhagic cerebrovascular accident with residual deficit 1463522412 26794 I61.1 S/P hemorrhagi c CVA in 01/2024.has had chronic covarrubias since stroke and reports attempted removal several times but is likely chronicCon tPT/OT as above.ator vastatin 20 mg qd.Keep SBP <160Monito r for new neuro sxs. History of cervical discectomy 0696055505 4868501 Z98.890 As above. Retention of urine 62421 4002 R33.8 Apparently long standing. with recent utiWas self cathing prior to stroke, now with chronic covarrubias, last changed on 04/04Contin ue covarrubias care and monthly changesTre ating UTI as above almost resolved [id number] Kyleigh Fritz, [facility] [address] [address] 05/05/2024 11:08:22 05/09/2024 10:26:57 Anxiety 83692797 F41.1 Mood continues to be labile with [...] and behaviorsC onsult psych prn Essential hypertension 14024414 I10 stable with labile bps at timescontH CTZ 25 mg po daily, hold for SBP<110lis inopril 40 mg qd.was on norvasc at home but dc'd in hospital for low bpAvoid BB due to bradycardi a.Continue to monitor BP and labs closely and for need to restart meds Chronic pa in following spinal surgery 9136459785 7102 G89.28 Improving in general, however, still [...] at 3pm Urinary tr act infectious disease 54172730 N39.0 denies any symptomsUr ine cx. >100,000 e coli ESBL and 50-99K Pseudomona sesbl precaution sKeflex stopped, now on levaquin 750 mg qd x 5d and Augmentin 875 mg bid x 10 d plus probiotic. completed on 05/05Clinic ally stableMain tain fluidsTren d VS, sx. labs History of hemorrhagic cerebrovascular accident with residual deficit 9304642450 92178 I61.1 S/P hemorrhagi c CVA in 01/2024.has had chronic covarrubias since stroke and reports attempted removal several times but is likely chronicCon tPT/OT as above.ator vastatin 20 mg qd.Keep SBP <160Monito r for new neuro sxs. History of cervical discectomy 5167977734 3965869 Z98.890 As above. Retention of urine 76448 4002 R33.8 Apparently long standing. with recent utiWas self cathing prior to stroke, now with chronic covarrubias, last changed on 04/04nsg to change monthlyCon tinue covarrubias care and monthly changesTre ating UTI as above almost resolved Hypertensi ve emergency 5542229436 19305 I16.1 resolved, ? related to not getting dose of lisinopril per dc summarycon tinue:HCTZ 25 mg qd, hold for SBP<110lis inopril 40 mg qdAvoid BB due to bradycardi a.Continue to monitor BP and labs closely Chest pain 49373154 R07. 9 she was sent to ER for chest pain that was ruled out and sent back to facilitymo nitor Gastroesop hageal reflux disease 181210657 K21.9 No current sxs.Contin uefamotidi ne 40 mg qdMonitor for GI sxs. Headache 62136740 R51.9 With hx of migraines, but recent HAs due to hypertensi ve emergencie s.Monitor for sxs. [id number] LILLIAN GOMEZ [address] [address] 05/08/2024 10:49:58 05/18/2024 09:55:18 Chronic pain following spinal surgery 0635474474 7102 G89.28 Improving in general, however, still [...] ry on jun 21 at 3pm Anxiety 11370799 F41.1 Mood continues to be labile with anxiety.co ntinue buspar 10 mg po bid per psych reccont buspar as it is helping with anxiety and consider increasing Cont:Venla faxine 75 mg qdAripipra zole 10 mg qdHydroxyz ine 50 mg qid with recent addition of 50 mg qd prnAvoid benzos. Essential hypertension [id number] I10 contHCTZ 25 mg po daily, hold for SBP<110lis inopril 40 mg qd.was on norvasc at home but dc'd in hospital for low bpAvoid BB due to bradycardi a.Continue to monitor BP and labs closely and for need to restart meds Urinary tr act infectious disease [id number] N39.0 denies any symptomsUr ine cx. >100,000 e coli ESBL and 50-99K Pseudomona sesbl precaution scompleted abx on 05/05Clinic ally stableMain tain fluidsTren d VS, sx. labs History of hemorrhagic cerebrovascular accident with residual deficit [id number] 03180 I61.1 S/P hemorrhagi c CVA in 01/2024.has had chronic covarrubias since stroke and reports attempted removal several times but is likely chronicCon tatorvasta tin 20 mg qd.Keep SBP <160Monito r for new neuro sxs. History of cervical discectomy [id number] Z98.890 As above. Retention of urine 42902 4002 R33.8 Apparently long standing. with recent utiWas self cathing prior to stroke, now with chronic covarrubias, last changed on 04/04nsg to change monthlyCon tinue covarrubias care and monthly changesTre ating UTI as above almost resolvedfo olow up out patient with urology- patient will make appt. Gastroesop hageal reflux disease [id number] K21.9 No current sxs.Contin uefamotidi ne 40 mg qdMonitor for GI sxs. Health Concerns Section Related Observation LastModified by Organization Detai ls LastModified Time None Recorded Concern Status LastModified by Organization Details LastModified Time None Recorded Advance Directives Directive Y: Payers Encounter Date Sequence Insurance Name Policy Number Policy Alanis Covered Member ID Alanis Member ID Guarantor Name 04/27/2024 1 [place] [facility] Cheryl Didato [id number] Cheryl Didato 04/28/2024 1 [place] Cheryl Didato [id number] Cheryl Didato 05/04/2024 1 [place] [facility] Cheryl Didato [id number] Cheryl Didato 05/05/2024 1 [place] [facility] Cheryl Didato [id number] Cheryl Didato 05/08/2024 1 [place] Cheryl Didato [id number] Cheryl Didato Notes Date Note Type Note [...] since 02/03/24 when she was admitted to [facility] for an acute [...] my health and want to go to [facility] . 911 called and pt seen to ER promptly. Of note: She is currently on antibiotics for UTI until 05/04, due to final C&S results (>100K E. Coli ESBL and 50-99K Pseudomonas) change required, now on levaquin and Augmentin to cover these orgs. Chronic covarrubias remains in place, qs yellow urine. Kyleigh Fritz NP [address] [facility], [address], [place], [address], [employer] 04/27/2024 10:02:54 04/28/2024 text/html Cheryl is seen tod ay for an acute visit. Her PMH includes HTN-very labile, HLD, migraines, anxiety/depression, chronic urinary retention with indwelling covarrubias, and s/p CVA right basal ganglia hemorrhagic stroke in 01/2024. She is a 58 yo woman who is here for rehab after a series of hospitalizations and rehab stays since 02/03/24 when she was admitted to [facility] for an acute CVA and sp spinal surgery fusion. She is seen today by adolescent psychiatrist recommending buspar 10 mg po bid for her anxiety. 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 No other concerns per nursing. Kyleigh Fritz NP [address] [facility], [address], [place], [address], [place] [employer] 04/28/2024 16:12:43 05/04/2024 text/html Cheryl is seen tod ay for an acute visit. Her PMH includes HTN-very labile, HLD, migraines, anxiety/depression, chronic urinary retention with indwelling covarrubias, and s/p CVA right basal ganglia hemorrhagic stroke in 01/2024. Cheryl is a 58 yo woman who is here for rehab after a series of hospitalizations and rehab stays since 02/03/24 when she was admitted to [facility] for an acute CVA and sp spinal surgery fusion here at [facility] for acute rehab. She remains on antibiotics [...] flights of ideas. Kyleigh Fritz NP [address] [facility], [address], [place], [address], [facility] [employer] 05/04/2024 14:58:17 05/05/2024 text/html Cheryl is seen [...] female with hx above initially presented to [facility] ER from rehab with co neck pain radiating to her right upper extremity with paresthesias felt per neurosurgery symptoms from postoperative nerve root inflammation discharged to rehab on 04/[address] [facility] ER on 04/05-04/12 [...] right internal capsule thalmic hemorrhage Since at [facility]: On 04/27 she was sent to Er for chest pain and ruled out for acute concern and sent back to rehab shortly after. She was seen by adolescent psychiatrist on 04/28 and started on buspar 10 [...] is sitting in the activity room in [facility]. She dose have a mild outburst at another resident to get away as she felt he was too close and then she settles down. Residents were at that time. She denies any other concerns today. Her weight is 191 lbs which is approx to 190 lbs on admission. RUST full code, signed 04/13/24 Kyleigh Fritz, DIAMOND [address] [facility], [address], [place], [address], [facility] [employer] 05/05/2024 11:33:54 05/08/2024 text/html Cheryl is a [...] female with hx above initially presented to [facility] ER from rehab with co neck pain radiating to her right upper extremity with paresthesias felt per neurosurgery symptoms from postoperative nerve root inflammation discharged to rehab on 04/[address] [facility] ER on 04/05-04/12 [...] right internal capsule thalmic hemorrhage Since at [facility]: On 04/27 she was sent to Er for chest pain and ruled out for acute concern and sent back to rehab shortly after. 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 Lux has a follow up appointment with her PCP on 05/23/24. LILLIAN GOMEZ [address] [facility], [address], [place], [address], [facility] 05/08/2024 13:35:11 OBGyn Episode No OBEpisode recorded.
--- OUTSIDE RECORDS SUMMARY | 2024-12-08 12:16 | XMS_ITS | Encounter Summary ---
Author Organization [employer] Address [address] [place] [address] 7 [place] [address] Care Team Providers Care Electrical Wiring Lineman Name Role Phone Aliza Paul DO Primary Care Provider [phone] Lesley Ingram Unavailable Unavailable Rosi Castro RN Unavailable [phone] Reason for Visit * Reason Comments Med Refill Encounter Details Date Type Department Care Team ([facility] st Contact Info) Description 07/01/2024 Refill [facility] MEDICINE [address] [place], [place] [phone] Aliza Paul DO [address] [place] [address] Other chronic pain Social History Tobacco Use [...] Description 12/18/2024 2:45 PM EST Office Visit [facility]INE [address] [place] [address] Gardenia Doyle MD [address] [place] [address] 02/08/2025 3:00 PM EDT Office Visit [facility] OPTOMETRY [address] [place] [address] Kimberly Gonzalez OD [address] [place] [address] documented as of this encounter Visit Diagnoses Diagnosis Other chronic pain documented in this encounter Additional Health Concerns Assessment Noted Time PHQ-9 Depression Total Score: 4 03/09/20 24 9:14 AM EDT documented as of this encounter Care Teams Electrical Wiring Lineman Relationship Specialty Start Date End Date Aliza Paul DO [address] [place] [address] PCP - General Family Medicine 02/23/12 Lesley Ingram Community Health Worker 05/17/24 Rosi Castro RN [address] [place] [address] Recreational Aide 05/17/24 [facility] 07/27/24 documented as of this encounter
--- OUTSIDE RECORDS SUMMARY | 2024-12-08 12:16 | XMS_ITS | Encounter Summary ---
Author Organization [employer] Address [address] [place] [address] 7 [place] [address] Care Team Providers Care Clinical Data Manager Name Role Phone Aliza Paul DO Primary Care Provider [phone] Lesley Ingram Unavailable Unavailable Rosi Castro RN Unavailable [phone] Reason for Visit * Reason Onset Date Comments [facility] Medical 12/06/2024 Lube steril pack ets, straight tip urinary catheter, covarrubias latex catheter, bedside bags, insertion trays Encounter Details Date Type Department Care Team (Late st Contact Info) Description 12/06/2024 Telephone [facility] [address] [place], [place] [phone] Aliza Paul DO [address] [place], [place] [phone] Medical (Lube steril packets, straight tip urinary catheter, covarrubias latex catheter, bedside bags, insertion trays) Social History Tobacco Use Types Packs/Day Years [...] encounter Miscellaneous Notes * Telephone Encounter - Iraida Blank - 12/07/2024 11:20 AM EST PA for lube steril packets, straight tip urinary catheter, covarrubias latex catheter, bedside bags, and insertion tray signed and faxed to [facility] . Confirmation received and sent to scan. If patient calls to check status on above, please advise them to contact [facility] . * Telephone Encounter - Donna Lujan MA - 12/06/2024 9:59 AM EST Received medical necessity form from [address] [place] [address] for, lube steril packets, straight tip urinary catheter, covarrubias latex catheter, bedside bags, and insertion trays. For has been placed on PCP's desk for signature. documented in this encounter Plan of Treatment Upcoming Encounters Date Type Department Care Team (Late st Contact Info) Description 12/18/2024 2:45 PM EST Office Visit [facility] [address] [place] [address] Gardenia Doyle MD [address] [place] [address] 02/08/2025 3:00 PM EDT Office Visit [facility] OPTOMETRY [address] [place] [address] Kimberly Gonzalez, RIYA [address] [place] [address] documented as of this encounter Visit Diagnoses Not on filedocumented in this encounter Additional Health Concerns Assessment Noted Time PHQ-9 Depression Total Score: 15 024 9:20 AM EDT documented as of this encounter Care Teams Clinical Data Manager Relationship Specialty Start Date End Date Aliza Paul DO [address] [place] [address] PCP - General Family Medicine 02/23/12 Lesley Ingram Community Health Worker 05/17/24 Rosi Castro RN [address] [place] [address] Strainer Mill Operator 05/17/24 [facility] Care 07/27/24 documented as of this encounter
--- OUTSIDE RECORDS SUMMARY | 2024-12-08 12:16 | XMS_ITS | Encounter Summary ---
Author Organization [employer] Address [address] [place] [address] [place] [address] Care Team Providers Care Enterprise Project Manager Name Role Phone Aliza Paul DO Primary Care Provider [phone] Lesley Ingram Unavailable Unavailable Rosi Castro RN Unavailable [phone] Encounter Details Date Type Department Care Team ([facility] Contact Info) Description 11/04/2022 Telephone [facility] MEDICINE [address] [place] [address] [phone] Aliza Paul DO [address] [place] [address] [phone] Social History Tobacco Use Types Packs/Day Years [...] Upcoming Encounters Date Type Department Care Team ([facility] Contact Info) Description 12/18/2024 2:45 PM EST Office Visit [address] [address] Gardenia Doyle MD [address] [place] [address] [phone] 02/08/2025 3:00 PM EDT Office Visit [facility] OPTOMETRY [address] [place], [place] [phone] Kimberly Gonzalez, OD [address] [place] [address] documented as of this encounter Visit Diagnoses Not on filedocumented in this encounter Care Teams Enterprise Project Manager Relationship Specialty Start Date End Date Aliza Paul DO [address] [place] [address] PCP - General Family Medicine 02/23/12 Lesley Ingram Community Health Worker 05/17/24 Rosi Castro, RICHARDSON [address] [place] [address] [facility] 05/17/24 [facility] Care 07/27/24 documented as of this encounter
--- OUTSIDE RECORDS SUMMARY | 2024-12-08 12:16 | XMS_ITS | Encounter Summary ---
Author Organization [employer] Address [address] [place] [address] 7 [address] [place] [address] Care Team Providers Care Audio/Visual Manager Name Role Phone Beverly Aliza Primary Care Provider + [phone] Lesley Ingram Unavailable Unavailable Rosi Castro RN Unavailable Encounter Details Date Type Department Care Team [...] Description 12/18/2024 2:45 PM EST Office Visit [facility] MEDICINE [address] [place] [address] Gardenia Doyle MD [address] [place] [address] 02/08/2025 3:00 PM EDT Office Visit [facility] OPTOMETRY [address] [place] [address] Kimberly Gonzalez, OD [address] [place] [address] documented as of this encounter Procedures Procedure Name Priority Date/Time Associated Diagnosis Comments CT CERVICAL SPINE WO CONTRAST Routine 12/05/2024 3:18 PM EST XR RIBS 3 VIEWS RIGHT W CHEST 1 VIEW Routine 12/05/2024 2:[address] HEAD WO CONTRAST Routine 12/05/2024 2 :03 PM EST XR HAND 3+ VIEWS LEFT Routine 12/05/2024 2:03 PM EST XR SHOULDER 2+ VIEWS RIGHT Routine 12/05/2024 2:03 PM EST DRUG MONITOR, PANEL 1, SCREEN, URINE Routine 11/23/2024 12:48 PM EST URINALYSIS, COMPLETE, WITH REFLEX TO CULTURE Routine 11/23/2024 12:47 PM EST documented in this encounter Results * CT Cervical Spine w/o Contrast (12/05/2024 3:18 PM EST) Anatomical Region Laterality Modality Spine, C-spine Computed Tomogra phy 12/05/2024 3:18 PM EST Narrative 12/05/2024 4:44 PM EST ? [facility] ?[address] ?[place] [address] ? CT Scan Report ? Signed ? Patient: Didato,Cheryl A ?MR#: [id number] ?? 0 ? : 1965 ?Acct:[id number] ? Age/Sex: 59 / F ?ADM Date: 12/05/24 ? Loc: HO.ED ? Attending Dr: ? Ordering Physician: Candice Hastings ?? Date of Service: 12/05/24 ?? Procedure(s): CT cervical spine wo IV con ?? Accession Number(s): [id number] ? cc: Aliza Paul DO; Candice Hastings ? Report Number: ?? [id number]: Total DLP = 1124.00 mGy-cm ?? EXAMINATION: ?? CT CERVICAL SPINE WITHOUT CONTRAST ? CLINICAL INFORMATION: ?? Neck pain fall. ? COMPARISON: ?? None available. ? TECHNIQUE: ?? Spiral CT examination of the cervical spine performed in axial plane ?? without IV contrast. Sagittal, coronal, and thin section axial ?? reformatted images were constructed from the axial data set. ? This CT examination was performed using dose optimization techniques as ?? appropriate, variously including the following: ?? *Automated exposure control ?? *Adjustment of mA and/or kV according to patient size (this includes ?? techniques or standardized protocols for targeted exams where dose is ?? matched to indication/reason for exam; i.e. extremities or head) ?? *Use of iterative reconstruction technique ? FINDINGS: ?? There is straightening of the normal lordosis. There is a trace right ?? convex scoliosis. ?? There is no evidence of acute fracture, traumatic subluxation, ?? compression deformity, or suspicious focal bony abnormality. ?? There has been prior anterior fusion of C5-C7 with plate and interbody ?? screws, as well as intervening disc prostheses. There is partial bony ?? fusion through the disc spaces. Hardware appears intact without ?? evidence of loosening of or complication. ? There is a 2 mm degenerative anterolisthesis of C3 on C4. Alignment is ?? otherwise normal. ?? There is no facet malalignment. The C2-3 right facets are fused. ?? Multilevel mild to moderate degenerative facet and uncinate changes. ? Severe disc space degeneration present C4-5, and C7-T1. Moderate ?? degeneration present C3-4. ? Craniocervical junction is intact. C1-2 articulation is intact and ?? normally aligned. ? No prevertebral soft tissue abnormalities. ?? Normal-appearing thyroid. ?? Lung apices are somewhat motion degraded with emphysematous changes. ? CT/CT cervical spine wo IV con ?? IMPRESSION: ?? 1. No CT evidence of acute cervical spine fracture or injury.. ?? 2. Intact anterior fusion C5-C7 without complication noted. ?? 3. Moderate degenerative spondylosis. ? Electronically signed by: ??Demetrio Valverde MD ??12/05/2024 04:41 PM EST RP ?? Workstation: [id number] ? Dictated By: ?Demetrio Valverde MD ? Signed By: ?<Electronically signed by Demetrio Valverde MD in OV> ?12/05/24 1641 ? DD/ 1518 ? TD/TT: 12/05/24 1544 ? Assembly Press Operator: ? Procedure Note Rian Méndez - 12/05/[address] [address] [address] Scan Report Signed Patient: Cheryl Garcia [facility]#: [id number] 0 : 1965Acct:[id number] Age/Sex: 59 / FADM Date: 12/05/24 Loc: HO.ED Attending Dr: Ordering Physician: Candice Hastings Date of Service: 12/05/24 Procedure(s): CT cervical spine wo IV con Accession Number(s): [id number] cc: Aliza Paul DO; Candice Hastings Report Number: [id number]: Total DLP = 1124.00 mGy-cm EXAMINATION: CT CERVICAL SPINE WITHOUT CONTRAST CLINICAL INFORMATION: Neck pain fall. COMPARISON: None available. TECHNIQUE: Spiral CT examination of the cervical spine performed in axial plane without IV contrast. Sagittal, coronal, and thin section axial reformatted images were constructed from the axial data set. This CT examination was performed using dose optimization techniques as appropriate, variously including the following: *Automated exposure control *Adjustment of mA and/or kV according to patient size (this includes techniques or standardized protocols for targeted exams where dose is matched to indication/reason for exam; i.e. extremities or head) *Use of iterative reconstruction technique FINDINGS: There is straightening of the normal lordosis. There is a trace right convex scoliosis. There is no evidence of acute fracture, traumatic subluxation, compression deformity, or suspicious focal bony abnormality. There has been prior anterior fusion of C5-C7 with plate and interbody screws, as well as intervening disc prostheses. There is partial bony fusion through the disc spaces. Hardware appears intact without evidence of loosening of or complication. There is a 2 mm degenerative anterolisthesis of C3 on C4. Alignment is otherwise normal. There is no facet malalignment. The C2-3 right facets are fused. Multilevel mild to moderate degenerative facet and uncinate changes. Severe disc space degeneration present C4-5, and C7-T1. Moderate degeneration present C3-4. Craniocervical junction is intact. C1-2 articulation is intact and normally aligned. No prevertebral soft tissue abnormalities. Normal-appearing thyroid. Lung apices are somewhat motion degraded with emphysematous changes. CT/CT cervical spine wo IV con IMPRESSION: 1. No CT evidence of acute cervical spine fracture or injury.. 2. Intact anterior fusion C5-C7 without complication noted. 3. Moderate degenerative spondylosis. Electronically signed by: Demetrio Valverde MD 12/05/2024 04:41 PM [facility] Dictated By: Demetrio Valverde MD Signed By: <Electronically signed by Demetrio Valverde MD in OV> 12/05/24 1641 DD/ 1518 TD/TT: 12/05/24 1544 Assembly Press Operator: us [facility] External Provider IMG CT PROCEDURES Final Result * CT Head w/o Contrast (12/05/2024 2:03 PM EST) Anatomical Region Laterality Modality Head, Neck Computed Tomogra phy 12/05/2024 2:03 PM EST Narrative 12/05/2024 4:36 PM EST ? [facility] ?[address] ?[place] [address] ? CT Scan Report ? Signed ? Patient: Didato,Cheryl A ?MR#: [id number] ?? 0 ? : 1965 ?Acct:[id number] ? Age/Sex: 59 / F ?ADM Date: 12/05/24 ? Loc: HO.ED ? Attending Dr: ? Ordering Physician: Candice Hastings ?? Date of Service: 12/05/24 ?? Procedure(s): CT head/brain wo IV con ?? Accession Number(s): [id number] ? cc: Aliza Paul DO; Candice Hastings ? Report Number: ?? [id number]: Total DLP = ?0.00 mGy-cm ?? EXAMINATION: ?? CT HEAD WITHOUT CONTRAST ? CLINICAL INFORMATION: ?? Headache after head strike. Fall. ? COMPARISON: ?? 07/20/2024, 11/09/2022. ? TECHNIQUE: ?? Contiguous axial imaging was performed from the skull base to vertex ?? without intravenous administration of contrast. ? This CT examination was performed using dose optimization techniques as ?? appropriate, variously including the following: ?? *Automated exposure control ?? *Adjustment of mA and/or kV according to patient size (this includes ?? techniques or standardized protocols for targeted exams where dose is ?? matched to indication/reason for exam; i.e. extremities or head) ?? *Use of iterative reconstruction technique ? FINDINGS: ?? There is no evidence of intracranial hemorrhage or extra-axial fluid ?? collection. ?? There is no mass effect, or edema. No CT evidence of acute territorial ?? infarct. ?? Ventricles, sulci, and cisterns are normal in size and configuration ?? for patient age. No hydrocephalus. No midline shift. ? 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 ?? There are old tiny lacunar type infarcts in the right greater than left ?? anterior gangliocapsular regions. ?? Old focal white matter infarct in left precentral gyrus. ?? There are mild chronic microvascular ischemic changes. ?? Partial empty sella noted. ?? Mild atheromatous calcification of the bilateral carotid siphons and V4 ?? segments vertebral arteries bilaterally. ? Globes and orbital contents image normally. ?? No extracranial soft tissue abnormalities. ? The paranasal sinuses, mastoid air cells, and tympanic cavities are ?? normally aerated. ?? No suspicious bony abnormalities. No fractures. Degenerative changes ?? right TM joint. ? CT/CT head/brain wo IV con ?? IMPRESSION: ?? 1. No acute intracranial abnormalities. No fractures. ?? 2. Stable chronic changes. ? Electronically signed by: ??Demetrio Valverde MD ??12/05/2024 04:34 PM EST RP ? Dictated By: ?Demetrio Valverde MD ? Signed By: ?<Electronically signed by Demetrio Valverde MD in OV> ?12/05/24 1634 ? DD/ 1403 ? TD/TT: 12/05/24 1544 ? Assembly Press Operator: ? Procedure Note Rian Méndez - 12/05/[address] [place] [address] [address] Scan Report Signed Patient: Cheryl Garcia [facility]#: [id number] 0 : 1965Acct:[id number] Age/Sex: 59 / FADM Date: 12/05/24 Loc: HO.ED Attending Dr: Ordering Physician: Candice Hastings Date of Service: 12/05/24 Procedure(s): CT head/brain wo IV con Accession Number(s): [id number] cc: Aliza Paul DO; Candice Hastings Report Number: [id number]: Total DLP = 0.00 mGy-cm EXAMINATION: CT HEAD WITHOUT CONTRAST CLINICAL INFORMATION: Headache after head strike. Fall. COMPARISON: 07/20/2024, 11/09/2022. TECHNIQUE: Contiguous axial imaging was performed from the skull base to vertex without intravenous administration of contrast. This CT examination was performed using dose optimization techniques as appropriate, variously including the following: *Automated exposure control *Adjustment of mA and/or kV according to patient size (this includes techniques or standardized protocols for targeted exams where dose is matched to indication/reason for exam; i.e. extremities or head) *Use of iterative reconstruction technique FINDINGS: There is no evidence of intracranial hemorrhage or extra-axial fluid collection. There is no mass effect, or edema. No CT evidence of acute territorial infarct. Ventricles, sulci, and cisterns are normal in size and configuration for patient age. No hydrocephalus. No midline shift. 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 There are old tiny lacunar type infarcts in the right greater than left anterior gangliocapsular regions. Old focal white matter infarct in left precentral gyrus. There are mild chronic microvascular ischemic changes. Partial empty sella noted. Mild atheromatous calcification of the bilateral carotid siphons and V4 segments vertebral arteries bilaterally. Globes and orbital contents image normally. No extracranial soft tissue abnormalities. The paranasal sinuses, mastoid air cells, and tympanic cavities are normally aerated. No suspicious bony abnormalities. No fractures. Degenerative changes right TM joint. CT/CT head/brain wo IV con IMPRESSION: 1. No acute intracranial abnormalities. No fractures. 2. Stable chronic changes. Electronically signed by: Demetrio Valverde MD 12/05/2024 04:34 PM EST Dictated By: Demetrio Valverde MD Signed By: <Electronically signed by Demetrio Valverde MD in OV> 12/05/24 1634 DD/ 1403 TD/TT: 12/05/24 1544 Assembly Press Operator: [facility] External Provider IMG CT PROCEDURES Final Result * XR Shoulder 2+ Views Right (12/05/2024 2:03 PM EST) Anatomical Region Laterality Modality Upper Extremities, Shoulder Right Radi ographic Imaging 12/05/2024 2:03 PM EST Narrative 12/05/2024 3:24 PM EST ? [facility] ?[address] ?[place] [address] ?XRay Report ? Signed ? Patient: Didato,Cheryl A ?MR#: [id number] ?? 0 ? : 1965 ?Acct:[id number] ? Age/Sex: 59 / F ?ADM Date: 12/05/24 ? Loc: HO.ED ? Attending Dr: ? Ordering Physician: Candice Hastings ?? Date of Service: 12/05/24 ?? Procedure(s): XR shoulder RT min 2V ?? Accession Number(s): [id number] ? cc: Aliza Paul DO; Candice Hastings ? EXAMINATION: ?? XR SHOULDER, RIGHT ? CLINICAL INFORMATION: ?? fall ??, pain ? COMPARISON: ?? 10/27/2022. ?? TECHNIQUE: ?? AP external rotation, Grashey, scapular Y, and axillary views of the ?? right shoulder. ? FINDINGS: ?? No definite acute fracture evident. No dislocation. Healed fracture ?? deformity of the surgical neck of the right humerus. ?? The AC joint is intact. The subacromial space is preserved. ?? There is mild degenerative arthritis in the glenohumeral joint, ?? possibly posttraumatic. ?? The clavicle is intact. The acromion is intact. ? Imaged soft tissues and ribs appear intact. Imaged right lung clear. ? XR/XR shoulder RT min 2V ?? IMPRESSION: ?? No acute findings right shoulder. Old healed fracture deformity ?? surgical neck right proximal humerus. ? Electronically signed by: ??Demetrio Valverde MD ??12/05/2024 03:21 PM EST RP ? Dictated By: ?Demetrio Valverde MD ? Signed By: ?<Electronically signed by Demetrio Valverde MD in OV> ?12/05/24 1521 ? DD/ 1403 ? TD/TT: 12/05/24 1450 ? Assembly Press Operator: ? Procedure Note Dev, Rian - 12/05/2024 [place] [address] [facility] [address] XRay Report Signed Patient: Cheryl Garcia [facility]#: [id number] 0 : 1965Acct:[id number] Age/Sex: 59 / FADM Date: 12/05/24 Loc: HO.ED Attending Dr: Ordering Physician: Candice Hastings Date of Service: 12/05/24 Procedure(s): XR shoulder RT min 2V Accession Number(s): [id number] cc: Aliza Paul DO; Candice Hastings EXAMINATION: XR SHOULDER, RIGHT CLINICAL INFORMATION: fall , pain COMPARISON: 10/27/2022. TECHNIQUE: AP external rotation, Grashey, scapular Y, and axillary views of the right shoulder. FINDINGS: No definite acute fracture evident. No dislocation. Healed fracture deformity of the surgical neck of the right humerus. The AC joint is intact. The subacromial space is preserved. There is mild degenerative arthritis in the glenohumeral joint, possibly posttraumatic. The clavicle is intact. The acromion is intact. Imaged soft tissues and ribs appear intact. Imaged right lung clear. XR/XR shoulder RT min 2V IMPRESSION: No acute findings right shoulder. Old healed fracture deformity surgical neck right proximal humerus. Electronically signed by: Demetrio Valverde MD 12/05/2024 03:21 PM EST Dictated By: Demetrio Valverde MD Signed By: <Electronically signed by Demetrio Valverde MD in OV> 12/05/24 1521 DD/ 1403 TD/TT: 12/05/24 1450 Assembly Press Operator: [facility] External Provider IMG XR PROCEDURES Final Result * XR Ribs 3 Views Right with Chest 1 View (12/05/2024 2:03 PM EST) Anatomical Region Laterality Modality Radiographic Nidia ging 12/05/2024 2:03 PM EST Narrative 12/05/2024 3:22 PM EST ? [facility] [place] [facility] ?[address] ?[place] [address] ?XRay Report ? Signed ? Patient: Didato,Cheryl A ?MR#: [id number] ?? 0 ? : 1965 ?Acct:[id number] ? Age/Sex: 59 / F ?ADM Date: 12/05/24 ? Loc: HO.ED ? Attending Dr: ? Ordering Physician: Candice Hastings ?? Date of Service: 12/05/24 ?? Procedure(s): XR ribs RT min 3V w CXR1V ?? Accession Number(s): [id number] ? cc: Aliza Paul DO; Candice Hastings ? EXAMINATION: ?? XR RIBS, RIGHT ? CLINICAL INFORMATION: ?? R rib pain ? COMPARISON: ?? Chest radiograph 11/23/2024, 11/19/2024, 08/14/2024. ? TECHNIQUE: ?? AP chest, and 3 views of the right ribs were obtained. ? FINDINGS: ?? Cardiac silhouette is enlarged, but may be partially magnified by AP ?? technique. Mediastinal and hilar contours are normal. Stable opacity to ?? the left of the aortic arch, unchanged on several prior exams and ?? presumably scarring or a prominent hilar vessel. ?? Lungs clear. No pneumothorax or effusion. ? Old healed fracture deformity right proximal humerus. ?? Degenerative spinal changes. ?? No definite rib fracture identified. ? Prior surgical anterior fusion. ? XR/XR ribs RT min 3V w CXR1V ?? IMPRESSION: ?? 1. No active pulmonary disease. No pneumothorax or effusion. ?? 2. No definite rib fracture identified. ? Electronically signed by: ??Demetrio Valverde MD ??12/05/2024 03:19 PM EST RP ?? Workstation: [id number] ? Dictated By: ?Demetrio Valverde MD ? Signed By: ?<Electronically signed by Demetrio Valverde MD in OV> ?12/05/24 1519 ? DD/ 1403 ? TD/TT: 12/05/24 1450 ? Assembly Press Operator: ? Procedure Note Rian Méndez - 12/05/[address] [address] XRay Report Signed Patient: Cheryl Garcia [facility]#: [id number] 0 : 1965Acct:[id number] Age/Sex: 59 / FADM Date: 12/05/24 Loc: HO.ED Attending Dr: Ordering Physician: Candice Hastings Date of Service: 12/05/24 Procedure(s): XR ribs RT min 3V w CXR1V Accession Number(s): [id number] cc: Aliza Paul DO; Candice Hastings EXAMINATION: XR RIBS, RIGHT CLINICAL INFORMATION: R rib pain COMPARISON: Chest radiograph 11/23/2024, 11/19/2024, 08/14/2024. TECHNIQUE: AP chest, and 3 views of the right ribs were obtained. FINDINGS: Cardiac silhouette is enlarged, but may be partially magnified by AP technique. Mediastinal and hilar contours are normal. Stable opacity to the left of the aortic arch, unchanged on several prior exams and presumably scarring or a prominent hilar vessel. Lungs clear. No pneumothorax or effusion. Old healed fracture deformity right proximal humerus. Degenerative spinal changes. No definite rib fracture identified. Prior surgical anterior fusion. XR/XR ribs RT min 3V w CXR1V IMPRESSION: 1. No active pulmonary disease. No pneumothorax or effusion. 2. No definite rib fracture identified. Electronically signed by: Demetrio Valverde MD 12/05/2024 03:19 PM EST Dictated By: Demetrio Valverde MD Signed By: <Electronically signed by Demetrio Valverde MD in OV> 12/05/24 1519 DD/ 1403 TD/TT: 12/05/24 1450 Assembly Press Operator: [facility] External Provider IMG XR PROCEDURES Final Result * XR Hand 3+ Views Left (12/05/2024 2:03 PM EST) Anatomical Region Laterality Modality Upper Extremities, Hand Left Radiogra phic Imaging 12/05/2024 2:03 PM EST Narrative 12/05/2024 3:18 PM EST ? [facility] [facility] ?[address] ?[place] [address] ?XRay Report ? Signed ? Patient: Didato,Cheryl A ?MR#: [id number] ?? 0 ? : 1965 ?Acct:[id number] ? Age/Sex: 59 / F ?ADM Date: 12/05/24 ? Loc: HO.ED ? Attending Dr: ? Ordering Physician: Candice Hastings ?? Date of Service: 12/05/24 ?? Procedure(s): XR hand LT min 3V ?? Accession Number(s): [id number] ? cc: Aliza Paul DO; Candice Hastings ? EXAMINATION: ?? XR HAND, LEFT ? CLINICAL INFORMATION: ?? thumb pain/swelling ? COMPARISON: ?? None available. ? TECHNIQUE: ?? PA, lateral, and oblique views of the left hand. ? FINDINGS: ?? There is diffuse mild osteopenia. ?? There is an acute intra-articular corner fracture involving the radial ?? aspect, distal phalanx of the thumb, with no significant displacement. ?? No significant articular step-off. There is associated soft tissue ?? swelling. ? There are no additional fractures or evidence of malalignment. ?? Mild arthritic changes are present at the first CMC joint, and ?? throughout the DIP joints. ? No additional soft tissue abnormality. ? XR/XR hand LT min 3V ?? IMPRESSION: ?? 1. Osteopenia. ?? 2. Acute intra-articular nondisplaced corner fracture involving the ?? radial aspect of the distal phalanx of thumb. This involves the lateral ?? interphalangeal joint. Associated soft tissue swelling. ?? 3. No additional acute findings. Mild arthritic changes. ? Electronically signed by: ??Demetrio Valverde MD ??12/05/2024 03:15 PM EST RP ?? Workstation: [id number] ? Dictated By: ?Demetrio Valverde MD ? Signed By: ?<Electronically signed by Demetrio Valverde MD in OV> ?12/05/24 1515 ? DD/ 1403 ? TD/TT: 12/05/24 1450 ? Assembly Press Operator: ? Procedure Note Rian Méndez - 12/05/2024 [place] [address] [facility] [address] XRay Report Signed Patient: Cheryl Garcia [facility]#: [id number] 0 : 1965Acct:[id number] Age/Sex: 59 / FADM Date: 12/05/24 Loc: HO.ED Attending Dr: Ordering Physician: Candice Hastings Date of Service: 12/05/24 Procedure(s): XR hand LT min 3V Accession Number(s): [id number] cc: Aliza Paul DO; Candice Hastings EXAMINATION: XR HAND, LEFT CLINICAL INFORMATION: thumb pain/swelling COMPARISON: None available. TECHNIQUE: PA, lateral, and oblique views of the left hand. FINDINGS: There is diffuse mild osteopenia. There is an acute intra-articular corner fracture involving the radial aspect, distal phalanx of the thumb, with no significant displacement. No significant articular step-off. There is associated soft tissue swelling. There are no additional fractures or evidence of malalignment. Mild arthritic changes are present at the first CMC joint, and throughout the DIP joints. No additional soft tissue abnormality. XR/XR hand LT min 3V IMPRESSION: 1. Osteopenia. 2. Acute intra-articular nondisplaced corner fracture involving the radial aspect of the distal phalanx of thumb. This involves the lateral interphalangeal joint. Associated soft tissue swelling. 3. No additional acute findings. Mild arthritic changes. Electronically signed by: Demetrio Valverde MD 12/05/2024 03:15 PM EST Dictated By: Demetrio Valverde MD Signed By: <Electronically signed by Demetrio Valverde MD in OV> 12/05/24 1515 DD/ 1403 TD/TT: 12/05/24 1450 Assembly Press Operator: [facility] External Provider IMG XR PROCEDURES Final Result * (ABNORMAL) Drug Monitoring, Panel 1, Screen, Urine (11/23/2024 12:48 PM EST) Opiate Screen Urine Not Detected Not Detect [facility] Comment:Opiate cut-off is 30 0 ng/mL.Positive results are unconfirmed and should not be used fornon-medical purposes. Barbiturates, Urine Not Detected Not Detect [facility] Comment:Barbiturate cut-off is 200 ng/mL.Positive results are unconfirmed and should not be used fornon-medical purposes. Phencyclidine Screen Urine Not Detected Not Detect [facility] Comment:Phencyclidine cut-of f is 25 ng/mL.Positive results are unconfirmed and should not be used fornon-medical purposes. Amphetamine Screen Urine Not Detected Not Detect [facility] Comment:Amphetamine cut-off is 1000 ng/mL.Positive results are unconfirmed and should not be used fornon-medical purposes. Benzodiazepines Screen Urine Not Detected Not Detect [facility] Comment:Benzodiazepine cut-o ff is 200 ng/mL.Positive results are unconfirmed and should not be used fornon-medical purposes. Cocaine Screen Urine POSITIVE(A) Not Detect [facility] Comment:Cocaine cut-off is 3 00 ng/mL.Positive results are unconfirmed and should not be used fornon-medical purposes. Cannabinoid Screen Urine POSITIVE(A) Not Detect [facility] Comment:Cannabinoid cut-off is 50 ng/mL.Positive results are unconfirmed and should not be used fornon-medical purposes. Methadone Screen, Urine Not Detected Not Detect ng/mL [facility] Comment:Methadone cut-off is 300 ng/mL.Positive results are unconfirmed and should not be used fornon-medical purposes. FENTANYL URINE Not Detected Not Detect [facility] Comment:Fentanyl cut-off is 1 ng/mL.Positive results are unconfirmed and should not be used fornon-medical purposes. Oxycodone Urine Screen Not Detected Not Detect ng/mL [facility] Comment:Oxycodone cut-off is 100 ng/mL.Positive results are unconfirmed and should not be used fornon-medical purposes. Buprenorphine Screen Not Detected Not Detect ng/mL [facility] Comment:Buprenorphine cut-of f is 5 ng/mL.Positive results are unconfirmed and should not be used fornon-medical purposes. 11/23/2024 12:4 8 PM EST 11/23/2024 12:51 PM EST Generic External Data Provider LAB URINE ORDERAB LES Final Result Performing Organization Address [facility]/ZIP Co de Phone Number [facility] [address] [place] [address] [phone] * (ABNORMAL) Urinalysis, Complete, with Reflex to Culture (11/23/2024 12:47 PM EST) Color Urine Yellow [facility] Appearance Urine Clear [facility] PH 6.0 5.0 - 9.0 [facility] Glucose Urine UA Negative Negative mg/dL [facility] Urine Blood Large (3+)(A) Negative [facility] Specific [place] - Urine 1.025 1.005 - 1.025 [facility] Urine Protein Trace Neg-Trace mg/dL [facility] Urine Ketones Negative Negative mg/dL [facility] Nitrite Urine Negative Negative [facility] Leukocyte Esterase Urine Small (1+)(A) Negative [facility] RBC Urine >20(A) 0 - 2 /HPF [facility] Urine WBC 6-10(A) 0 - 5 /HPF [facility] Urine Squamous Epithelial Cell 0-2 0 - 2 /HPF [facility] Urine Bacteria None Seen None Seen [facility] Hyaline Casts, Urine 3-5 0 - 2 /LPF [facility] 11/23/2024 12:4 7 PM EST 11/23/2024 12:51 PM EST Narrative [facility] - 11/23/2024 12:58 PM EST Urine, [place] us Generic External Data Provider LAB URINE ORDERAB LES Final Result Performing Organization Address [facility] Co de Phone Number [facility] [address] [place] [address] [phone] documented in this encounter Visit Diagnoses Not on filedocumented in this encounter Additional Health Concerns Assessment Noted Time PHQ-9 Depression Total Score: 15 10/15/2 024 9:20 AM EDT documented as of this encounter Care Teams Audio/Visual Manager Relationship Specialty Start Date End Date Aliza Paul DO [address] [place] [address] PCP - General Family Medicine 02/23/12 Lesley Ingram Community Health Worker 05/17/24 Rosi Castro RN [address] [place] [address] Roll Trucker 05/17/24 [facility] 07/27/24 documented as of this encounter
--- OUTSIDE RECORDS SUMMARY | 2024-12-08 12:16 | XMS_ITS | Encounter Summary ---
Author Organization [employer] Address [address] [place] [address] [place] [address] Care Team Providers Care Environmental Lead Name Role Phone Aliza Paul DO Primary Care Provider [phone] Lesley Ingram Unavailable Unavailable Rosi Castro RN Unavailable Reason for Visit * Reason Onset Date Comments Nurse Triage 11/20/2024 Encounter Details Date Type Department Care Team ([facility] st Contact Info) Description 11/20/2024 Telephone [facility] MEDICINE [address] [place], [place] [phone] Aliza Paul DO [address] [place] [address] Nurse Triage Social History Tobacco Use Types [...] 10:29 AM EST TC placed to patient [phone] to status check below. Patient reports she [...] become anxious. RN advised patient to have PACKING MACHINE INSPECTOR call PT1 for patient to facilitate transportation. Patient agreeable to this plan and will return call to [facility] if s/s worsen. Patientto f/u PRN. * Telephone Encounter - Bria Chester LPN - 11/20/2024 10:08 AM EST Please obtain [facility] ED note from visit 11/19/24. * Telephone Encounter - Bria Chester LPN - 11/20/2024 10:04 AM EST Triage call returned to patient who reports that she was seen in [facility] ED yesterday and was found to have [...] at time of call. Advised to have PACKING MACHINE INSPECTOR black pickler medications today for home use as ordered. Team tasked to follow as needed for status check . Protocol Used: Breathing Difficulty (Adult) Protocol-Based Disposition: Go to ED/[facility] Now (or to Office with PCP Approval) [...] Description 12/18/2024 2:45 PM EST Office Visit [facility] MEDICINE [address] [place] [address] Gardenia Doyle MD [address] [place] [address] 02/08/2025 3:00 PM EDT Office Visit [facility] OPTOMETRY [address] [place] [address] Kimberly Gonzalez OD [address] [place] [address] documented as of this encounter Visit Diagnoses Not on filedocumented in this encounter Additional Health Concerns Assessment Noted Time PHQ-9 Depression Total Score: 15 024 9:20 AM EDT documented as of this encounter Care Teams Environmental Lead Relationship Specialty Start Date End Date Aliza Paul DO [address] [place] [address] PCP - General Family Medicine 02/23/12 Lesley Ingram Community Health Worker 05/17/24 Rosi Castro RN [address] [place] [phone] Rv Service Technician 05/17/24 [facility] Care 07/27/24 documented as of this encounter
--- OUTSIDE RECORDS SUMMARY | 2024-12-08 12:16 | XMS_ITS | Encounter Summary ---
Author Organization [employer] Address [address] [place] [address] [place] [address] Care Team Providers Care Shuttle Veneering Supervisor Name Role Phone Aliza Paul DO Primary Care Provider [phone] Lesley Ingram Unavailable Unavailable Rosi Castro RN Unavailable [phone] Encounter Details Date Type Department Care Team ([facility] Contact Info) Description 11/04/2022 [facility] Health Information Management [address] [place] [address] Aliza Paul DO [address] [place], [place] [phone] Social History Tobacco Use Types Packs/Day Years [...] Upcoming Encounters Date Type Department Care Team ([facility] Contact Info) Description 12/18/2024 2:45 PM EST Office Visit [facility] MEDICINE [address] [place] [address] Gardenia Doyle MD [address] [place] [address] 02/08/2025 3:00 PM EDT Office Visit [facility] OPTOMETRY [address] [place] [address] Kimberly Gonzalez, OD [address] [place] [address] documented as of this encounter Visit Diagnoses Not on filedocumented in this encounter Care Teams Shuttle Veneering Supervisor Relationship Specialty Start Date End Date Aliza Paul DO [address] [place] [address] PCP - General Family Medicine 02/23/12 Lesley Ingram Community Health Worker 05/17/24 Rosi Castro, [place] [address] [place] [address] Software Trainer 05/17/24 [facility] Care 07/27/24 documented as of this encounter
--- OUTSIDE RECORDS SUMMARY | 2024-12-08 12:16 | XMS_ITS | Encounter Summary ---
Author Organization [employer] Address [address] [place] [address] 7 [place] [address] Care Team Providers Care Network Control Technician Name Role Phone Beverly Aliza Primary Care Provider + [phone] Lesley Ingram Unavailable Unavailable Rosi Castro RN Unavailable [phone] Encounter Details Date Type Department Care Team (Late st Contact Info) Description 12/08/2024 Orders Only GENERIC EXTERNAL DATA DEPARTMENT Provider, [...] Description 12/18/2024 2:45 PM EST Office Visit [facility] MEDICINE [address] [place] [address] Gardenia Doyle MD [address] [place] [address] 02/08/2025 3:00 PM EDT Office Visit [facility] OPTOMETRY [address] [place] [address] Kimberly Gonzalez, OD [address] [place] [address] documented as of this encounter Procedures Procedure Name Priority Date/Time Associated Diagnosis Comments CBC WITH AUTO DIFFERENTIAL Routine 12/08/2024 11:48 AM EST B TYPE NATRIURETIC PEPTIDE (BNP) Routine 12/08/2024 11:48 AM EST MAGNESIUM Routine 12/08/2024 11:48 AM EST HEPATIC FUNCTION PANEL Routine 12/08/2024 11:48 AM EST BASIC METABOLIC PANEL Routine 12/08/2024 11:48 AM EST XR CHEST 1 VIEW Routine 12/08/2024 11:25 AM EST documented in this encounter Results * (ABNORMAL) B Type Natriuretic Peptide (BNP) (12/08/2024 11:48 AM EST) Pathologist [facility] B Type Natriuretic Peptide 107(H) <100 pg/mL [facility] Comment:For those patients w ho are being treated with Natrecor(nesiritide, recombinant BNP), BNP testing should beperformed at least two hours post treatment in order toensure that only endogenous levels of BNP are detected. 12/08/2024 11:4 8 AM EST 12/08/2024 11:50 AM EST Generic External Data Provider LAB BLOOD ORDERAB LES Final Result Performing Organization Address [facility]/ZIP Co de Phone Number [facility] [address] [place] [phone] * Magnesium (12/08/2024 11:48 AM EST) [facility] Magnesium 1.8 1.6 - 2.6 mg/dL [facility] 12/08/2024 11:4 8 AM EST 12/08/2024 11:50 AM EST Ex[employer]at External Data Provider LAB BLOOD ORDERAB LES Final Result Performing Organization Address [facility] Co de Phone Number [facility] [address] [place] [phone] * (ABNORMAL) Basic Metabolic Panel (12/08/2024 11:48 AM EST) [facility] Sodium 142 135 - 145 mmol/L [facility] Potassium 3.4 3.3 - 5.1 mmol/L [facility] Chloride 110(H) 96 - 108 mmol/L [facility] Carbon Dioxide 24 22 - 29 mmol/L [facility] Anion Gap 11(L) 12 - 20 [facility] Urea Nitrogen (BUN) 15 9 - 16 mg/dL [facility] Creatinine, Serum 0.70 0.5 - 1.4 mg/dL [facility] Creatinine Clr Calc Pharmacy 89.2 [facility] Comment:Provided height and weight: 160.02 cm,84.6 kg.eGFR (calculated from the MDRD study equation) and eCrCl(calculated from the Cockcroft-Gault equation) are based ondifferent parameters and may not yield comparable results.If eCrCl result is absurd, please check patient'sheight/weight. Estimated Glomerular Filt Rate >60 [facility] Comment:Chronic Kidney Disea se: Estimated GFR < 60 mL/min/1.37h0Bwtody Kidney Disease: Estimated GFR < 15 mL/min/1.73m2 Glucose 104 60 - 115 mg/dL [facility] Calcium 9.9 8.4 - 10.2 mg/dL [facility] 12/08/2024 11:4 8 AM EST 12/08/2024 11:50 AM EST us Generic External Data Provider LAB BLOOD ORDERAB LES Final Result Performing Organization Address [facility]/ZIP Co de Phone Number [facility] [address] [place] [phone] * Hepatic Function Panel (12/08/2024 11:48 AM EST) Bilirubin, Total 0.5 0.0 - 1.0 mg/dL [facility] Bilirubin, Direct 0.2 0.0 - 0.5 mg/dL [facility] Aspartate Amino Transferase 12 5 - 31 U/L [facility] Alanine Aminotransferase 12 0 - 31 U/L [facility] Total Protein 7.2 6.5 - 8.0 g/dL [facility] Albumin Level 3.8 3.5 - 5.0 g/dL [facility] Alkaline Phosphatase 84 39 - 117 U/L [facility] 12/08/2024 11:4 8 AM EST 12/08/2024 11:50 AM EST us Generic External Data Provider LAB BLOOD ORDERAB LES Final Result Performing Organization Address City/[facility]/ZIP Co de Phone Number [facility] [address] [place] [address] [phone] * (ABNORMAL) CBC auto differential (12/08/2024 11:48 AM EST) White Blood Count 10.6 4.8 - 10.8 X10*3/uL [facility] Red Blood Count 5.36 4.20 - 5.50 X10*6/uL [facility] Hemoglobin 14.3 12.0 - 16.0 g/dl [facility] Hematocrit 42.6 37.0 - 47.0 % [facility] Mean Corpuscular Volume 79.5(L) 80.0 - 98.0 fL [facility] Mean Corpuscular Hemoglobin 26.7(L) 27.0 - 33.0 pg [facility] Mean Corpuscular HGB Conc 33.6 31.0 - 35.0 g/dl [facility] Red Cell Distribution Width 13.5 11.0 - 16.0 % [facility] Platelet Count 341 160 - 400 X10*3/uL [facility] Mean Platelet Volume 9.3(L) 9.4 - 12.3 fL [facility] Neutrophils Percent Auto 60.2 45 - 73 % [facility] Imm Gran Pct Auto 0.3 0.0 - 0.4 % [facility] Lymphocytes Percent Auto 28.0 20 - 40 % [facility] Monocytes Percent Auto 7.3 2 - 11 % [facility] Eosinophils Percent Auto 3.5 0 - 4 % [facility] Basophils Percent Auto 0.7 0 - 2 % [facility] NRBC Pct Auto 0.0 0.0 - 0.2 /100WBC [facility] Neutrophils Absolute Auto 6.4 2.0 - 8.3 x10*3/uL [facility] Imm Gran Abs Auto 0.03 0.00 - 0.03 X10*3/uL [facility] Lymphocytes Absolute Auto 3.0 1.2 - 4.9 X10*3/uL [facility] Monocytes Absolute Auto 0.8 0.1 - 1.2 X10*3/uL [facility] Eosinophils Absolute Auto 0.4 0.0 - 0.4 X10*3/uL [facility] Basophils Absolute Auto 0.1 0.0 - 0.2 X10*3/uL [facility] NRBC Abs Auto 0.000 0.0 - 0.012 X10*3/uL [facility] 12/08/2024 11:4 8 AM EST 12/08/2024 11:50 AM EST us Generic External Data Provider LAB BLOOD ORDERAB LES Final Result [facility] [address] [place] [phone] [phone] * XR Chest 1 View (12/08/2024 11:25 AM EST) Anatomical Region Laterality Modality Chest Radiographic Nidia ging 12/08/2024 11:2 5 AM EST Narrative 12/08/2024 12:08 PM EST ? [facility] ?[address] ?[place] [address] ?XRay Report ? Signed ? Patient: Cheryl Garcia ?MR#: [id number] ?? 0 ? : 1965 ?Acct:[id number] ? Age/Sex: 59 / F ?ADM Date: 12/08/24 ? Loc: HO.ED ? Attending Dr: ? Ordering Physician: Suzy Frye DO ?? Date of Service: 12/08/24 ?? Procedure(s): XR chest 1V ?? Accession Number(s): [id number] ? cc: Suzy Frye DO; Aliza Paul DO ? EXAMINATION: ??XR CHEST 1 VIEW ? HISTORY: cough ? COMPARISON: Comparison is made with the prior examination dated ?? 12/05/2024. ? FINDINGS: ??A single AP portable view of the chest performed at 11:51 AM ?? is submitted. The lungs are expanded and clear. ??There is no pleural ?? effusion, pneumothorax, or pulmonary vascular congestion. ??The heart is ?? normal in size. ??There is degenerative disc disease of the spine. There ?? is an old fracture deformity of the right humeral neck. ? XR/XR chest 1V ?? IMPRESSION: ?? No acute cardiopulmonary abnormality. ? Electronically signed by: ??Ulises Mir MD ??12/08/2024 12:05 PM EST ? Dictated By: ?Ulises Mir MD ? Signed By: ?<Electronically signed by Ulises Mir MD in OV> ?12/08/24 1205 ? DD/ 1125 ? TD/TT: 12/08/24 1155 ? Director Of Casework Department: ? Procedure Note Dontedter, Image - 12/08/[address] [address] XRay Report Signed Patient: Cheryl Garcia AMR#: [id number] 0 : 1965Acct:[id number] Age/Sex: 59 / FADM Date: 12/08/24 Loc: HO.ED Attending Dr: Ordering Physician: Suzy Frye DO Date of Service: 12/08/24 Procedure(s): XR chest 1V Accession Number(s): [id number] cc: Suzy Frye DO; Aliza Paul DO EXAMINATION: XR CHEST 1 VIEW HISTORY: cough COMPARISON: Comparison is made with the prior examination dated 12/05/2024. FINDINGS: A single AP portable view of the chest performed at 11:51 AM is submitted. The lungs are expanded and clear. There is no pleural effusion, pneumothorax, or pulmonary vascular congestion. The heart is normal in size. There is degenerative disc disease of the spine. There is an old fracture deformity of the right humeral neck. XR/XR chest 1V IMPRESSION: No acute cardiopulmonary abnormality. Electronically signed by: Ulises Mir MD 12/08/2024 12:05 PM [facility] Dictated By: Ulises Mir MD Signed By: <Electronically signed by Ulises Mir MD in OV> 12/08/24 1205 DD/ 1125 TD/TT: 12/08/24 1155 Director Of Casework Department: [facility] External Provider IMG XR PROCEDURES Final Result documented in this encounter Visit Diagnoses Not on filedocumented in this encounter Additional Health Concerns Assessment Noted Time PHQ-9 Depression Total Score: 15 024 9:20 AM EDT documented as of this encounter Care Teams Network Control Technician Relationship Specialty Start Date End Date Aliza Paul DO [address] [place] [address] PCP - General Family Medicine 02/23/12 Lesley Ingram Community Health Worker 05/17/24 Rosi Castro RN [address] [place] [address] Roof Fitter 05/17/24 [facility] Care 07/27/24 documented as of this encounter
--- OUTSIDE RECORDS SUMMARY | 2024-12-08 12:16 | XMS_ITS | Encounter Summary ---
Author Organization [employer] Address [address] [place] [address] [place] [address] Care Team Providers Care Parts Sales Manager Name Role Phone Aliza Paul DO Primary Care Provider [phone] Lesley Ingram Unavailable Unavailable Rosi Castro RN Unavailable Reason for Visit * Reason Onset Date Comments FYI 05/15/2024 Encounter Details Date Type Department Care Team ([facility] st Contact Info) Description 05/15/2024 Telephone [facility] MEDICINE [address] [place], [place] [phone] Aliza Paul DO [address] [place] [address] FYI Social History Tobacco Use Types Packs/Day [...] be receiving home health care service with [facility] and referral was also made to [facility] for additional homemaking, personal care and RETAIL GREETING [employer] MERCHANDISER services. Pt. Declined services. FYI for HDF 05/23/24 * Telephone Encounter - Timoteo Blank - 05/15/2024 1:04 PM EDT Tc from [facility] with [facility] calling to inform they were unable to admit pt into services, Karlie stated they managed to get in contact with pt but pt gave another excuse on why she wasn't able to accept services. If any questions you can contact Karlie at [phone]. documented in this encounter Plan of Treatment Upcoming Encounters Date Type Department Care Team (Late st Contact Info) Description 12/18/2024 2:45 PM EST Office Visit [facility] MEDICINE [address] [place], [place] [phone] Gardenia Doyle MD [address] [place], [place] [phone] 02/08/2025 3:00 PM EDT Office Visit [facility] OPTOMETRY [address] [place], [place] [phone] Kimberly Gonzalez OD [address] [place] [address] documented as of this encounter Visit Diagnoses Not on filedocumented in this encounter Additional Health Concerns Assessment Noted Time PHQ-9 Depression Total Score: 4 03/09/20 24 9:14 AM EDT documented as of this encounter Care Teams Parts Sales Manager Relationship Specialty Start Date End Date Aliza Paul DO [address] [place] [address] PCP - General Family Medicine 02/23/12 Lesley Ingram Community Health Worker 05/17/24 Rosi Castro RN [address] [place] [phone] Copyman 05/17/24 [facility] Care 07/27/24 documented as of this encounter
--- OUTSIDE RECORDS SUMMARY | 2024-12-08 12:16 | XMS_ITS | Encounter Summary ---
Author Organization [employer] Address [address] [place] [address] [place] [address] Care Team Providers Care Digital Circuit Designer Name Role Phone Aliza Paul DO Primary Care Provider [phone] Lesley Ingram Unavailable Unavailable Rosi Castro RN Unavailable [phone] Reason for Visit * Reason Comments Med Refill Encounter Details Date Type Department Care Team ([facility] st Contact Info) Description 06/06/2024 Refill [facility] MEDICINE [address] [place], [place] [phone] Aliza Paul DO [address] [place] [address] Chronic nonintractable headache, unspecified headache type Social [...] Description 12/18/2024 2:45 PM EST Office Visit [facility] MEDICINE [address] [place] [address] Gardenia Doyle MD [address] [place] [address] 02/08/2025 3:00 PM EDT Office Visit [facility] OPTOMETRY [address] [place] [address] Kimberly Gonzalez OD [address] [place] [address] documented as of this encounter Visit Diagnoses Diagnosis Chronic nonintractable headache, unspecified headache type documented in this encounter Additional Health Concerns Assessment Noted Time PHQ-9 Depression Total Score: 4 03/09/20 24 9:14 AM EDT documented as of this encounter Care Teams Digital Circuit Designer Relationship Specialty Start Date End Date Aliza Paul DO [address] [place] [address] PCP - General Family Medicine 02/23/12 Lesley Ingram Community Health Worker 05/17/24 Rosi Castro RN [address] [place] [address] Industrial Gas Fitter Helper 05/17/24 [facility] 07/27/24 documented as of this encounter
--- OUTSIDE RECORDS SUMMARY | 2024-12-08 12:17 | XMS_ITS | Clinical Summary ---
Author Organization [employer] Address [address] [place] [address] [address]t [place] [address] Care Team Providers Care Biology Research Assistant Name Role Phone BeverlyAliza Primary Care Provider [phone] Lesley Ingram Unavailable Unavailable Rosi Castro RN Unavailable [phone] Allergies No known active allergies Medications [...] Active Blood Pressure Monitoring (Blood Pressure Cuff) [facility] Use daily as prescribed 1 each 09/07/20 [...] EDT): On propranolol + Methimazole, fu by [facility] endocrinology. We'll get OV notes sp hospital [...] with residual deficit 05/23/20 24 Chronic indwelling Covarrubias catheter 05/23/2024 History of cervical discectomy 04/13/2024 [...] MH services received in the past with [facility], currently she's not satisfied with [facility]. Pt opted for same-day appointments [...] intervention , [facility], and Patient to reach out to [facility] as needed Pt prefers to be self-referred for OP individual therapy and psychiatry to the [facility] programs. Pt was offered external referral; clinician informed about wait times and options to receive MH services through [facility] intake. Assessment & Plan (03/09/2024 3:06 [...] EDT): Sp CVA? Patient has an indwelling Covarrubias cath. Neurology to fu, ro other neurodegenerative [...] MH services received in the past with [facility], currently she's not satisfied with [facility]. Pt opted for same-day appointments [...] intervention , Patient to reach out to [facility] team as needed, and Patient to reach out to [facility] as needed Pt prefers to be self-referred for OP individual therapy and psychiatry to the [facility] programs. Pt was offered external referral; clinician informed about wait times and options to receive MH services through [facility] intake. Assessment & Plan (10/26/2023 10:38 AM EST): PLAN: Continue with current services (defined as services in the past 12 months) , Behavioral Health Integration Plan Patient Self Plan Patient to reach out to [facility] team as needed, Patient to engage in OP therapy , and Patient to follow-up with external team, clinician to reach our to current therapist for Cheryl at [facility] to support process of reconnecting with psych [...] no appointment has been made. Currently under /[facility] care to assist with SDOH needs. Lack [...] MH services received in the past with [facility], currently she's not satisfied with [facility]. Pt opted for same-day appointments with [facility] (information given. Cheryl screened positive for [...] intervention , Patient to reach out to [facility] team as needed, and Patient to reach out to [facility] as needed Pt prefers to be self-referred for OP individual therapy and psychiatry to the [facility] programs. Pt was offered external referral; clinician informed about wait times and options to receive MH services through [facility] intake. Resolved Problems Problem Noted Date [...] 10:16 AM EST): Wants to fu with [facility] Dr Jj instead of [facility], referral sent. [...] organization. Date Type Department Care Team Description 12/08/2024 Orders Only GENERIC EXTERNAL DATA DEPARTMENT Provider, Generic External Data 12/06/2024 Telephone [facility] MEDICINE [address] [place] [address] Aliza Paul, No Show 12/06/[address] [address] Aliza Paul DO [employer] (Lube steril packets, straight tip urinary catheter, covarrubias latex catheter, bedside bags, insertion trays) 12/06/2024 Patient Outreach [facility] MEDICINE [address] [place] [address] Aliza Paul DO Transition Of Care (Tcm) 11/28/2024 Patient Outreach [facility] [address] [place] [address] Aliza Paul DO Transition Of Care (Tcm) (HDF- scheduled -SDOH unable to complete. ) 11/23/2024 Orders Only GENERIC EXTERNAL DATA DEPARTMENT Provider, Generic External Data 11/20/2024 Telephone [facility] MEDICINE [address] [place] [address] Aliza Paul, Nurse Triage 11/17/2024 Telephone [facility] MED[facility]INE [address] [place] [address] Aliza Paul, Nurse Triage 11/07/2024 Telephone [facility] [address] [place] [address] Aliza Paul DO 11/06/2024 Telephone [facility] [address] [place] [address] Aliza Paul, Referral 11/02/2024 Refill [facility] [address] [place] [address] Delmis Cat MD 11/02/2024 Patient Outreach [address] [address] Nerissa Robertson, vessel slagman Of Care ([facility]) 10/31/2024 Orders Only GENERIC EXTERNAL DATA DEPARTMENT Provider, Generic External Data 10/26/[address] [address] Aliza Paul, Nurse Triage 10/23/2024 Refill [facility] [address] [place] [address] Aliza Paul, Closed supracondylar fracture of right humerus with routine healing 10/19/2024 Patient Outreach [facility] [address] [place] [address] Aliza Paul DO Care Coordination (CHW outreach for SDOH PT-1 and food needs-referral completed /) 10/19/2024 Telephone [facility] [address] [place] [address] Aliza Paul DO PT-1 10/19/[address] [address] Aliza Pual, Other chronic pain 10/18/2024 Telephone [facility] [address] [place] [address] Talya Scherer, PharmD 10/17/2024 Telephone [facility] [address], [place] [address] Aliza Paul, FYI 10/13/2024 Telephone [facility] [address], [place] [address] Aliza Paul, Medication Question 10/07/2024 Refill [facility] [address], [place] [address] Aliza Paul DO 10/03/2024 Refill [facility] [address], [place] [address] Rakel Guerra, RN 10/03/2024 Telephone [facility] [address] [facility] [place] [place] [address] Aliza Paul, No Show 10/02/2024 Refill [facility] [address] [facility] [place] [address] Aliza Paul DO Closed supracondylar fracture of right humerus with routine healing 09/29/2024 Travel 09/29/2024 Patient Outreach [facility] [address] [place] [address] Aliza Paul DO Care Coordination (C3/CHW Lesley Ingram, TC program graduation) 09/29/2024 Refill [facility] [address] [place] [address] Aliza Paul DO Closed supracondylar fracture of right humerus with routine healing; Muscle spasm 09/28/2024 Telephone [facility] MEDICINE [address], [place] [address] Aliza Paul DO Medication Question 09/27/2024 Telephone [facility] [address] [place] [address] Aliza Paul, Nurse Triage 09/27/2024 Refill [facility] [address] [place] [address] Aliza Paul DO Muscle spasm 09/26/2024 Telephone [facility] [address] [facility] [place], [place] [address] Rocio Ingram, RICHARDSON Care Management (C3CM- f/u call) 09/22/2024 Travel 09/20/[address] [address] Aliza Paul DO FYI 09/15/2024 Patient Outreach [address] [address] Aliza Paul DO SDOH Concerns (C3/CHW MICHAEL Alvarado f/u call ) 09/15/[address] [address] Rocio Ingram, RICHARDSON Care Management (C3- f/u call) 09/14/2024 Refill [facility] [address] [place] [address] Aliza Paul DO Anxiety disorder, unspecified type; Closed supracondylar fracture of right humerus with routine healing 09/13/[address] [address] Aliza Paul DO Nurse Triage 09/12/[address] [address] Angelica Mendoza, RICHARDSON Results 09/12/2024 Orders Only [facility] MEDICINE [address] [place] [address] Delmis Cat MD 09/11/[address] [address] Aliza Paul DO 09/08/[address] [address] Angelica Mendoza, RN VNA 09/08/[address] [address] Aliza Paul DO PT1 09/08/[address] [address] Angelica Mendoza, RN Results 09/07/2024 10:45 AM EDT Office Visit [facility] MEDICINE [address] [place] [address] Delmis Cat MD Thyrotoxicosis with thyrotoxic crisis, unspecified thyrotoxicosis type (Primary Dx); Essential hypertension; ANISA (acute kidney injury) ([facility]/HCC); Candidiasis of breast; Cloudy urine; Anxiety; Neurogenic bladder; Major depression, recurrent, chronic ([facility]/HCC) 09/07/2024 Orders Only [facility] MEDIC[facility] [address] [place] [address] Delmis Cat MD 09/07/[address] [address] Aliza Paul DO Medical Question 09/07/[address] [address] Aliza Paul DO Appointment Confirmation 09/07/[address] [address] Aliza Paul DO Record Request 09/07/2024 Travel 09/07/[address] [address] Delmis Cat MD No Show from Last 3 Months Immunizations Name Administration [...] Description 12/18/2024 2:45 PM EST Office Visit [facility] MEDICINE [address] [place] [address] Gardenia Doyle MD [address] [place] [address] 02/08/2025 3:00 PM EDT Office Visit [facility] OPTOMETRY [address] [place] [address] Kimberly Gonzalez OD [address] [place] [address] Health Maintenance Due Date Last Done Comments [...] Cervical Cancer Screening 12/10/2022 HPV/Cotest 12/10/2022 12/10/2017 Pneumococcal Vaccine: 50+ Years (2 of 2 - PCV) 12/16/2022 12/16/2021 COVID-19 Vaccine (3 - season) 2024 10/17/2022, 10/17/2022 Influenza Vaccine (#1) 2024 7, 09/23/2017, 09/23/2017, Additional history exists Depression Monitoring (PHQ-9) 02/20/2025 08/22/2024, 08/22/2024 SDOH Screening 05/17/2025 05/17/2024 Depression Screening 08/22/2025 08/22/2024, 08/22/20 Tobacco Screening 09/07/2025 09/07/2024 Lipid Panel 01/28/2027 01/28/2022 DTaP/Tdap/Td Vaccines (4 - Td or Tdap) 09/06/2032 09/06/2022, 09/06/2022, 12/16/2021 RSV Patients and Patients Aged 60 years or older (1 - 1-dose 75+ series) 2040 HIV Screening Completed 01/28/2022 Hepatitis C Screening [...] Procedure Name Priority Date/Time Associated Diagnosis Comments B TYPE NATRIURETIC PEPTIDE (BNP) Routine 12/08/2024 11:48 AM EST MAGNESIUM Routine 12/08/2024 11:48 AM EST BASIC METABOLIC PANEL Routine 12/08/2024 11:48 AM EST HEPATIC FUNCTION PANEL Routine 12/08/2024 11:48 AM EST CBC WITH AUTO DIFFERENTIAL Routine 12/08/2024 11:48 AM EST XR CHEST 1 VIEW Routine 12/08/2024 11:[address] CERVICAL SPINE WO CONTRAST Routine 12/05/2024 3:[address] HEAD WO CONTRAST Routine 12/05/2024 2 :03 PM EST XR SHOULDER 2+ VIEWS RIGHT Routine 12/05/2024 2:03 PM EST XR RIBS 3 VIEWS RIGHT W CHEST 1 VIEW Routine 12/05/2024 2:03 PM EST XR HAND 3+ VIEWS LEFT Routine 12/05/2024 2:03 PM EST DRUG MONITOR, [...] Relevant to Health Maintenance Results * (ABNORMAL) CBC auto differential (12/08/2024 11:48 AM EST) White Blood Count 10.6 4.8 - 10.8 X10*3/uL [facility] Red Blood Count 5.36 4.20 - 5.50 X10*6/uL [facility] Hemoglobin 14.3 12.0 - 16.0 g/dl [facility] Hematocrit 42.6 37.0 - 47.0 % [facility] Mean Corpuscular Volume 79.5(L) 80.0 - 98.0 fL [facility] Mean Corpuscular Hemoglobin 26.7(L) 27.0 - 33.0 pg [facility] Mean Corpuscular HGB Conc 33.6 31.0 - 35.0 g/dl [facility] Red Cell Distribution Width 13.5 11.0 - 16.0 % [facility] Platelet Count 341 160 - 400 X10*3/uL [facility] Mean Platelet Volume 9.3(L) 9.4 - 12.3 fL [facility] Neutrophils Percent Auto 60.2 45 - 73 % [facility] Imm Gran Pct Auto 0.3 0.0 - 0.4 % [facility] Lymphocytes Percent Auto 28.0 20 - 40 % [facility] Monocytes Percent Auto 7.3 2 - 11 % [facility] Eosinophils Percent Auto 3.5 0 - 4 % [facility] Basophils Percent Auto 0.7 0 - 2 % [facility] NRBC Pct Auto 0.0 0.0 - 0.2 /100WBC [facility] Neutrophils Absolute Auto 6.4 2.0 - 8.3 x10*3/uL [facility] Imm Gran Abs Auto 0.03 0.00 - 0.03 X10*3/uL [facility] Lymphocytes Absolute Auto 3.0 1.2 - 4.9 X10*3/uL [facility] Monocytes Absolute Auto 0.8 0.1 - 1.2 X10*3/uL [facility] Eosinophils Absolute Auto 0.4 0.0 - 0.4 X10*3/uL [facility] Basophils Absolute Auto 0.1 0.0 - 0.2 X10*3/uL [facility] NRBC Abs Auto 0.000 0.0 - 0.012 X10*3/uL [facility] 12/08/2024 11:4 8 AM EST 12/08/2024 11:50 AM EST us Generic External Data Provider LAB BLOOD ORDERAB LES Final Result Performing Organization Address [facility] Co de Phone Number [facility] [address] [place] [phone] * (ABNORMAL) B Type Natriuretic Peptide (BNP) (12/08/2024 11:48 AM EST) B Type Natriuretic Peptide 107(H) <100 pg/mL [facility] Comment:For those patients w ho are being treated with Natrecor(nesiritide, recombinant BNP), BNP testing should beperformed at least two hours post treatment in order toensure that only endogenous levels of BNP are detected. 12/08/2024 11:4 8 AM EST 12/08/2024 11:50 AM EST us Generic External Data Provider LAB BLOOD ORDERAB LES Final Result Performing Organization Address [facility] Co de Phone Number [facility] [address] [place] [phone] * Magnesium (12/08/2024 11:48 AM EST) Magnesium 1.8 1.6 - 2.6 mg/dL [facility] 12/08/2024 11:4 8 AM EST 12/08/2024 11:50 AM EST us Generic External Data Provider LAB BLOOD ORDERAB LES Final Result Performing Organization Address City/[facility] Co de Phone Number [facility] [address] [place] [phone] Hepatic Function Panel (12/08/2024 11:48 AM EST) [facility] Bilirubin, Total 0.5 0.0 - 1.0 mg/dL [facility] Bilirubin, Direct 0.2 0.0 - 0.5 mg/dL [facility] Aspartate Amino Transferase 12 5 - 31 U/L [facility] Alanine Aminotransferase 12 0 - 31 U/L [facility] Total Protein 7.2 6.5 - 8.0 g/dL [facility] Albumin Level 3.8 3.5 - 5.0 g/dL [facility] Alkaline Phosphatase 84 39 - 117 U/L [facility] 12/08/2024 11:4 8 AM EST 12/08/2024 11:50 AM EST us Generic External Data Provider LAB BLOOD ORDERAB LES Final Result [facility] [address] [place] [phone] * (ABNORMAL) Basic Metabolic Panel (12/08/2024 11:48 AM EST) Only the most recent of2 resultswithin the time period is included. [facility] Sodium 142 135 - 145 mmol/L [facility] Potassium 3.4 3.3 - 5.1 mmol/L [facility] Chloride 110(H) 96 - 108 mmol/L [facility] Carbon Dioxide 24 22 - 29 mmol/L [facility] Anion Gap 11(L) 12 - 20 [facility] Urea Nitrogen (BUN) 15 9 - 16 mg/dL [facility] Creatinine, Serum 0.70 0.5 - 1.4 mg/dL [facility] Creatinine Clr Calc Pharmacy 89.2 [facility] Comment:Provided height and weight: 160.02 cm,84.6 kg.eGFR (calculated from the MDRD study equation) and eCrCl(calculated from the Cockcroft-Gault equation) are based ondifferent parameters and may not yield comparable results.If eCrCl result is absurd, please check patient'sheight/weight. Estimated Glomerular Filt Rate >60 [facility] Comment:Chronic Kidney Disea se: Estimated GFR < 60 mL/min/1.89i5Tvvjyx Kidney Disease: Estimated GFR < 15 mL/min/1.73m2 Glucose 104 60 - 115 mg/dL [facility] Calcium 9.9 8.4 - 10.2 mg/dL [facility] 12/08/2024 11:4 8 AM EST 12/08/2024 11:50 AM EST us Generic External Data Provider LAB BLOOD ORDERAB LES Final Result Performing Organization Address [facility] Co de Phone Number [facility] [address] [place] [phone] * XR Chest 1 View (12/08/2024 11:25 AM EST) Anatomical Region Laterality Modality Chest Radiographic Nidia ging 12/08/2024 11:2 5 AM EST Narrative 12/08/2024 12:08 PM EST ? [facility] ?[address] ?[place] [address] ?XRay Report ? Signed ? Patient: Didato,Cheryl A ?MR#: [id number] ?? 0 ? : 1965 ?Acct:[id number] ? Age/Sex: 59 / F ?ADM Date: 12/08/24 ? Loc: HO.ED ? Attending Dr: ? Ordering Physician: Suzy Frye DO ?? Date of Service: 12/08/24 ?? Procedure(s): XR chest 1V ?? Accession Number(s): [id number] ? cc: Suzy Frye DO; Aliza Paul [...] ??Ulises Mir MD ??12/08/2024 12:05 PM EST ?? RP ? Dictated By: ?Ulises Mir MD ? Signed By: ?<Electronically signed by Ulises Mir MD in OV> ?12/08/24 1205 ? DD/ 1125 ? TD/TT: 12/08/24 1155 ? [facility] [employer]: ? Procedure Note Donabdullahiraginimylester, Image - 12/08/2024 [place] [address] XRay Report Signed Patient: Cheryl Garcia AMR#: [id number] 0 : 1965Acct:[id number] Age/Sex: 59 / FADM Date: 12/08/24 Loc: HO.ED Attending Dr: Ordering Physician: Suzy Frye DO Date of Service: 12/08/24 Procedure(s): XR chest 1V Accession Number(s): [id number] cc: Suzy Frye DO; Aliza Paul DO [...] 12/08/2024 12:05 PM [facility] Dictated By: Ulises Mir MD Signed By: <Electronically signed by Ulises Mir MD in OV> 12/08/24 1205 DD/ 1125 TD/TT: 12/08/24 1155 [facility] [employer]: us [facility] External Provider IMG XR PROCEDURES Final Result * CT Cervical Spine w/o Contrast (12/05/2024 3:18 PM EST) Anatomical Region Laterality Modality Spine, C-spine Computed Tomogra phy 12/05/2024 3:18 PM EST Narrative 12/05/2024 4:44 PM EST ? [facility] ?[address] ?[place], [place] [address] ? CT Scan Report ? Signed ? Patient: Cheryl Garcia A ?MR#: [id number] ?? 0 ? : 1965 ?Acct:[id number] ? Age/Sex: 59 / F ?ADM Date: 12/05/24 ? Loc: HO.ED ? Attending Dr: ? Ordering Physician: Candice Hastings ?? Date of Service: 12/05/24 ?? Procedure(s): CT cervical spine wo IV con ?? Accession Number(s): [id number] ? cc: Aliza Paul DO; Candice Hastings ? Report Number: ?? [id number]: Total DLP = 1124.00 mGy-cm ?? EXAMINATION: [...] ??12/05/2024 04:41 PM EST RP ?? Workstation: [id number] [id number] ? Dictated By: ?Demetrio Valverde MD ? Signed By: ?<Electronically signed by Demetrio Valverde MD in OV> ?12/05/24 1641 ? DD/ 1518 ? TD/TT: 12/05/24 1544 ? [facility] [employer]: ? Procedure Note Rian Méndez - 12/05/[address] [address] [address] Scan Report Signed Patient: Cheryl Garcia [facility]#: [id number] 0 : 1965Acct:[id number] Age/Sex: 59 / FADM Date: 12/05/24 Loc: HO.ED Attending Dr: Ordering Physician: Candice Hastings Date of Service: 12/05/24 Procedure(s): CT cervical spine wo IV con Accession Number(s): [id number] cc: Aliza Paul DO; Candice Hastings Report Number: [id number]: Total DLP = 1124.00 mGy-cm EXAMINATION: CT [...] by: Demetrio Valverde MD 12/05/2024 04:41 PM [facility] Dictated By: Demetrio Valverde MD Signed By: <Electronically signed by Demetrio Valverde MD in OV> 12/05/24 1641 DD/ 1518 TD/TT: 12/05/24 1544 Wait[employer] [employer]: us [facility] External Provider IMG CT PROCEDURES Final Result * XR Ribs 3 Views Right with Chest 1 View (12/05/2024 2:03 PM EST) Anatomical Region Laterality Modality Radiographic Nidia ging 12/05/2024 2:03 PM EST Narrative 12/05/2024 3:22 PM EST ? [facility] ?[address] ?[place] [address] ?XRay Report ? Signed ? Patient: Didato,Cheryl A ?MR#: [id number] ?? 0 ? : 1965 ?Acct:[id number] ? Age/Sex: 59 / F ?ADM Date: 12/05/24 ? Loc: HO.ED ? Attending Dr: ? Ordering Physician: Candice Hastings ?? Date of Service: 12/05/24 ?? Procedure(s): XR ribs RT min 3V w CXR1V ?? Accession Number(s): [id number] ? cc: Aliza Paul DO; Candice Hatsings ? EXAMINATION: ?? XR RIBS, RIGHT ? [...] Valverde MD ??12/05/2024 03:19 PM EST RP ? Dictated By: ?Demetrio Valverde MD ? Signed By: ?<Electronically signed by Demetrio Valverde MD in OV> ?12/05/24 1519 ? DD/ 1403 ? TD/TT: 12/05/24 1450 ? [facility] [employer]: ? Procedure Note Donotuseinterpreter, Image - 12/05/2024 [place] [address] XRay Report Signed Patient: Cheryl Garcia AMR#: [id number] 0 : 1965Acct:[id number] Age/Sex: 59 / FADM Date: 12/05/24 Loc: HO.ED Attending Dr: Ordering Physician: Candice Hastings Date of Service: 12/05/24 Procedure(s): XR ribs RT min 3V w CXR1V Accession Number(s): [id number] cc: Aliza Paul DO; Candice Hastings EXAMINATION: [...] by: Demetrio Valverde MD 12/05/2024 03:19 PM [facility] Dictated By: Demetrio Valverde MD Signed By: <Electronically signed by Demetrio Valverde MD in OV> 12/05/24 1519 DD/ 1403 TD/TT: 12/05/24 1450 [facility] [employer]: us [facility] External Provider IMG XR PROCEDURES Final Result * CT Head w/o Contrast (12/05/2024 2:03 PM EST) Anatomical Region Laterality Modality Head, Neck Computed Tomogra phy 12/05/2024 2:03 PM EST Narrative 12/05/2024 4:36 PM EST ? [facility] ?[address] ?[place] [address] ? CT Scan Report ? Signed ? Patient: Didato,Cheryl A ?MR#: [id number] ?? 0 ? : 1965 ?Acct:[id number] ? Age/Sex: 59 / F ?ADM Date: 12/05/24 ? Loc: HO.ED ? Attending Dr: ? Ordering Physician: Candice Hastings ?? Date of Service: 12/05/24 ?? Procedure(s): CT head/brain wo IV con ?? Accession Number(s): [id number] ? cc: Aliza Paul DO; Candice Hastings ? Report Number: ?? [id number]: Total DLP = ?0.00 mGy-cm ?? EXAMINATION: [...] signed by Demetrio Valverde MD in OV> ?01/28/25 1634 ? DD/ 1403 ? TD/TT: 12/05/24 1544 ? [facility] [employer]: ? Procedure Note Dev, Image - 12/05/[address] [place] [address] [address] Scan Report Signed Patient: Cheryl Garcia AMR#: [id number] 0 : 1965Acct:[id number] Age/Sex: 59 / FADM Date: 12/05/24 Loc: HO.ED Attending Dr: Ordering Physician: Candice Hastings Date of Service: 12/05/24 Procedure(s): CT head/brain wo IV con Accession Number(s): [id number] cc: Aliza Paul DO; Candice Hastings Report Number: [id number]: Total DLP = 0.00 mGy-cm EXAMINATION: CT [...] 12/05/24 1634 DD/ 1403 TD/TT: 12/05/24 1544 Wait[facility]: [facility] External Provider IMG CT PROCEDURES Final Result * XR Hand 3+ Views Left (12/05/2024 2:03 PM EST) Anatomical Region Laterality Modality Upper Extremities, Hand Left Radiogra phic Imaging 12/05/2024 2:03 PM EST Narrative 12/05/2024 3:18 PM EST ? [facility] ?[address] ?[place] [address] ?XRay Report ? Signed ? Patient: Didato,Cheryl A ?MR#: [id number] ?? 0 ? : 1965 ?Acct:[id number] ? Age/Sex: 59 / F ?ADM Date: 12/05/24 ? Loc: HO.ED ? Attending Dr: ? Ordering Physician: Candice Hastings ?? Date of Service: 12/05/24 ?? Procedure(s): XR hand LT min 3V ?? Accession Number(s): [id number] ? cc: Aliza Paul DO; Candice Hastings [...] Valverde MD ??12/05/2024 03:15 PM EST RP ? Dictated By: ?Demetrio Valverde MD ? Signed By: ?<Electronically signed by Demetrio Valverde MD in OV> ?12/05/24 1515 ? DD/ 1403 ? TD/TT: 12/05/24 1450 ? Waiter/Waitress Cocktail Lounge: ? Procedure Note Donotuseinterpreter, Image - 12/05/[address] [address] XRay Report Signed Patient: Cheryl Garcia AMR#: [id number] 0 : 1965Acct:[id number] Age/Sex: 59 / FADM Date: 12/05/24 Loc: HO.ED Attending Dr: Ordering Physician: Candice Hastings Date of Service: 12/05/24 Procedure(s): XR hand LT min 3V Accession Number(s): [id number] cc: Aliza Paul DO; Candice Hastings EXAMINATION: [...] 12/05/24 1515 DD/ 1403 TD/TT: 12/05/24 1450 Waiter/Waitress Cocktail Lounge: [facility] External Provider IMG XR PROCEDURES Final Result * XR Shoulder 2+ Views Right (12/05/2024 2:03 PM EST) Anatomical Region Laterality Modality Upper Extremities, Shoulder Right Radi ographic Imaging 12/05/2024 2:03 PM EST Narrative 12/05/2024 3:24 PM EST ? [facility] ?[address] ?[place] [address] ?XRay Report ? Signed ? Patient: Didato,Cheryl A ?MR#: [id number] ?? 0 ? : 1965 ?Acct:[id number] ? Age/Sex: 59 / F ?ADM Date: 12/05/24 ? Loc: HO.ED ? Attending Dr: ? Ordering Physician: Candice Hastings ?? Date of Service: 12/05/24 ?? Procedure(s): XR shoulder RT min 2V ?? Accession Number(s): [id number] ? cc: Aliza Paul DO; Candice Hastings [...] DD/ 1403 ? TD/TT: 12/05/24 1450 ? Waiter/Waitress Cocktail Lounge: ? Procedure Note Dev, Image - 12/05/[address] [address] XRay Report Signed Patient: Cheryl Garcia AMR#: [id number] 0 : 1965Acct:[id number] Age/Sex: 59 / FADM Date: 12/05/24 Loc: HO.ED Attending Dr: Ordering Physician: Candice Hastings Date of Service: 12/05/24 Procedure(s): XR shoulder RT min 2V Accession Number(s): [id number] cc: Aliza Paul DO; Candice Hastings EXAMINATION: [...] 12/05/24 1521 DD/ 1403 TD/TT: 12/05/24 1450 Waiter/Waitress Cocktail Lounge: [facility] External Provider IMG XR PROCEDURES Final Result * (ABNORMAL) Drug Monitoring, Panel 1, Screen, Urine (11/23/2024 12:48 PM EST) Opiate Screen Urine Not Detected Not Detect [facility] Comment:Opiate cut-off is 30 0 ng/mL.Positive results are unconfirmed and should not be used fornon-medical purposes. Barbiturates, Urine Not Detected Not Detect [facility] Comment:Barbiturate cut-off is 200 ng/mL.Positive results are unconfirmed and should not be used fornon-medical purposes. Phencyclidine Screen Urine Not Detected Not Detect [facility] Comment:Phencyclidine cut-of f is 25 ng/mL.Positive results are unconfirmed and should not be used fornon-medical purposes. Amphetamine Screen Urine Not Detected Not Detect [facility] Comment:Amphetamine cut-off is 1000 ng/mL.Positive results are unconfirmed and should not be used fornon-medical purposes. Benzodiazepines Screen Urine Not Detected Not Detect [facility] Comment:Benzodiazepine cut-o ff is 200 ng/mL.Positive results are unconfirmed and should not be used fornon-medical purposes. Cocaine Screen Urine POSITIVE(A) Not Detect [facility] Comment:Cocaine cut-off is 3 00 ng/mL.Positive results are unconfirmed and should not be used fornon-medical purposes. Cannabinoid Screen Urine POSITIVE(A) Not Detect [facility] Comment:Cannabinoid cut-off is 50 ng/mL.Positive results are unconfirmed and should not be used fornon-medical purposes. Methadone Screen, Urine Not Detected Not Detect ng/mL [facility] Comment:Methadone cut-off is 300 ng/mL.Positive results are unconfirmed and should not be used fornon-medical purposes. FENTANYL URINE Not Detected Not Detect [facility] Comment:Fentanyl cut-off is 1 ng/mL.Positive results are unconfirmed and should not be used fornon-medical purposes. Oxycodone Urine Screen Not Detected Not Detect ng/mL [facility] Comment:Oxycodone cut-off is 100 ng/mL.Positive results are unconfirmed and should not be used fornon-medical purposes. Buprenorphine Screen Not Detected Not Detect ng/mL [facility] Comment:Buprenorphine cut-of f is 5 ng/mL.Positive results are unconfirmed and should not be used fornon-medical purposes. 11/23/2024 12:4 8 PM EST 11/23/2024 12:51 PM EST us Generic External Data Provider LAB URINE ORDERAB LES Final Result Performing Organization Address City/[facility]/ZIP Co de Phone Number [facility] [address] [place] [address] [phone] * (ABNORMAL) Urinalysis, Complete, with Reflex to Culture (11/23/2024 12:47 PM EST) Only the most recent of2 resultswithin the time period is included. Color Urine Yellow [facility] Appearance Urine Clear [facility] PH 6.0 5.0 - 9.0 [facility] Glucose Urine UA Negative Negative mg/dL [facility] Urine Blood Large (3+)(A) Negative [facility] Specific [place] - Urine 1.025 1.005 - 1.025 [facility] Urine Protein Trace Neg-Trace mg/dL [facility] Urine Ketones Negative Negative mg/dL [facility] Nitrite Urine Negative Negative [facility] Leukocyte Esterase Urine Small (1+)(A) Negative [facility] RBC Urine >20(A) 0 - 2 /HPF [facility] Urine WBC 6-10(A) 0 - 5 /HPF [facility] Urine Squamous Epithelial Cell 0-2 0 - 2 /HPF [facility] Urine Bacteria None Seen None Seen [facility] Hyaline Casts, Urine 3-5 0 - 2 /LPF [facility] 11/23/2024 12:4 7 PM EST 11/23/2024 12:51 PM EST Narrative [facility] - 11/23/2024 12:58 PM EST Urine, [place] Generic External Data Provider LAB URINE ORDERAB LES Final Result Performing Organization Address City/[facility]/ZIP Co de Phone Number [facility] [address] [place] [address] [phone] * Culture, Urine, Routine (10/31/2024 12:00 AM EST) Only the most recent of2 resultswithin the time period is included. Urine Urine specimen obtained by clean catch procedure / Unknown 10/31/2024 10/31/2024 Comment:UACC Narrative [facility] - 11/03/2024 7:39 AM EST Proteus mirabilis Quant > 100,000 cfu/mL Proteus mirabilis: Ampicillin <=2(S) Proteus mirabilis: Cefazolin 4(S) Proteus mirabilis: Cefepime <=0.12(S) Proteus mirabilis: Ceftriaxone <=0.25(S) Proteus mirabilis: Ciprofloxacin <=0.06(S) Proteus mirabilis: Gentamicin <=1(S) Proteus mirabilis: Nitrofurantoin 256(R) Proteus mirabilis: Trimethoprim/Sulfamethoxazole <=20(S) Specimen Source: Urine clean catch us Generic External Data Provider LAB MICROBIOLOGY - GENERAL ORDERABLES Final Result [facility] [address] [place] [phone] * (ABNORMAL) POCT Urinalysis (09/07/2024 12:30 [...] Media Lot # [id number] Lot# Expiration Date ,025 Urine 09/07/2024 12:3 0 PM EDT Delmis Cat MD POINT OF CARE TEST ENTER /EDIT ORDERABLES Final Result * HEPATITIS C AB W/REFL TO HCV RNA, QN, PCR (01/28/2022 10:33 AM EDT) HEPATITIS C ANTIBODY NON-REACT ERNESTO NON-REACT ERNESTO [facility] INDEX 0.01 <1.00 [facility] Comment: ?? HCV antibody was non-reactive. There is no laboratory ?? evidence of HCV infection. ?? In most cases, no further action is required. However, if recent HCV exposure is suspected, a test for HCV RNA (test code 72462) is suggested. ?? For additional information please refer to http://Interwise.Carestream/faq/PDD14z7 (This link is being provided for informational/ educational purposes only.) ?? 01/28/2022 10:3 3 AM EDT Aliza Paul DO HISTORICAL/NON ORDERABLE LAB S Final Result Performing Organization Address City/State/[facility] Co de Phone Number [facility] [address] [place] [address], * HIV 1/2 ANTIGEN/ANTIBODY,FOURTH GENERATION W/RFL (01/28/2022 10:33 AM EDT) HIV-1/2 ANTIGEN AND ANTIBODIES, 4TH GENERATION W/ REFLEX NON-REACT ERNESTO NON-REACT ERNESTO [facility] Comment: HIV-1 antigen and HIV-1/HIV-2 [...] ? For additional information please refer to http://Interwise.Carestream/faq/IGY633 (This link is being provided for informational/ educational purposes only.) ? The performance of this assay has not been clinically validated in patients less than 2 years old. ?? 01/28/2022 10:3 3 AM EDT us Aliza Paul DO LAB BLOOD ORDERABLES Final R esult [facility] [address] [place] [address], * (ABNORMAL) LIPID PANEL, STANDARD (01/28/2022 10:33 AM EDT) [facility] Chol/HDLC Ratio 4.2 <5.0 (calc) [facility] [...] ?? LDL-C is now calculated using the Josh ?? calculation, which is a validated novel method providing ?? better accuracy than the Friedewald equation in the ?? estimation of LDL-C. ?? Albert WHITTINGTON et al. OVIDIO. 2013;310(19): 7745-5427 ?? (http://education.[employer]/faq/NSZ359) Non-HDL Cholesterol 170(H) <130 mg/dL (calc) [facility] Comment: For patients with diabetes plus 1 major ASCVD risk ?? factor, treating to a non-HDL-C goal of <100 mg/dL ?? (LDL-C of <70 mg/dL) is considered a therapeutic ?? option. Triglycerides 242(H) <150 mg/dL [facility] Comment: ?? If a non-fasting specimen was collected, consider repeat triglyceride testing on a fasting specimen if clinically indicated. ?? Jaime et al. J. of Clin. Lipidol. 2015;9:129-169. ?? 01/28/2022 10:3 3 AM EDT Aliza Paul DO LAB BLOOD ORDERABLES Final R esult Performing Organization Address [facility]/ZIP Co de Phone Number [facility] [address] [place] [address], * HPV E6/E7 RFLX ROMA 16 18/45 (12/10/2017 12:51 PM EST) ADDITIONAL TESTING Not indicated () [facility] Comment: Test Performed by [employer], [facility], [address] [place] [address] Ulises Silva M.D., Ph.D., Director of Laboratories , [place] [id number] HPV 16 RNA Test not performed [facility] HPV 18/45 RNA Test not performed [facility] HPV mRNA E6/E7 Not Detected NOT DETECTED [facility] Comment: This test was performed using the APTIMA(R) HPV Assay ([employer] This assay detects E6/E7 viral messenger RNA (mRNA) from 14 high-risk HPV types (16,18,31,33,35,39,45,51, 52,56,58,59,66,68). For additional information please refer to: http://education.Carestream/faq/CFA478c7 (This link is being provided for informational/ educational purposes only.) Please note: ??Effective 07/20/2016, HPV testing will be performed using [employer]'s APTIMA test which targets mRNA. Detecting mRNA instead of DNA, as in older methods, offers significant improvements in specificity. 12/10/2017 12:5 1 PM EST us Aliza Paul DO HISTORICAL/NON ORDERABLE LAB S Final Result [facility] [address] from Last 3 Months or Most Recently Relevant to Health Maintenance Insurance [facility] [employer] [place] AD[place] Care Teams Biology Research Assistant Relationship Specialty Start Date End Date Aliza Paul DO [address] [place] [address] PCP - General Family Medicine 02/23/12 Lesley Ingram Community Health Worker 05/17/24 Rosi Castro RN [address] [place] [address] Car Shifter 05/17/24 [facility] 07/27/24
--- OUTSIDE RECORDS SUMMARY | 2024-12-08 12:17 | XMS_ITS | Encounter Summary ---
Author Organization [employer] Address [address] [place] [address] [place] [address] Care Team Providers Care Smoke Jumper Supervisor Name Role Phone Aliza Paul DO Primary Care Provider [phone] Lesley Ingram Unavailable Unavailable Rosi Castro RN Unavailable [phone] Reason for Visit * Reason Onset Date Comments Nurse Triage 11/17/2024 Encounter Details Date Type Department Care Team ([facility] st Contact Info) Description 11/17/2024 Telephone [facility] [address] [place], [place] [phone] Aliza Paul DO [address] [place] [address] Nurse Triage Social History Tobacco Use Types [...] visit today. Reports currently has services for custodial 1 visit weekly for med management. Every 3 weeks for catheter change.Advised of above. Verbalized understanding. * Telephone Encounter - Sherif Macias - 11/17/2024 1:13 PM EST TC from [facility] with health point reports going to [...] Description 12/18/2024 2:45 PM EST Office Visit [facility] [address] [place] [address] Gardenia Doyle MD [address] [place] [address] 02/08/2025 3:00 PM EDT Office Visit [facility] [address] [place], [place] [phone] Kimberly Gonzalez OD [address] [place] [address] documented as of this encounter Visit Diagnoses Not on filedocumented in this encounter Additional Health Concerns Assessment Noted Time PHQ-9 Depression Total Score: 15 024 9:20 AM EDT documented as of this encounter Care Teams Smoke Jumper Supervisor Relationship Specialty Start Date End Date Aliza Paul DO [address] [place] [address] PCP - General Family Medicine 02/23/12 Lesley Ingram Community Health Worker 05/17/24 Rosi Castro RN [address] [place] [address] Take Down Inspector 05/17/24 [facility] documented as of this encounter
--- OUTSIDE RECORDS SUMMARY | 2024-12-08 12:17 | XMS_ITS | Encounter Summary ---
Author Organization [employer] Address [address] [place] [address] [place] [address] Care Team Providers Care Life Manager Name Role Phone Aliza Paul DO Primary Care Provider [phone] Lesley Ingram Unavailable Unavailable Rosi Castro RN Unavailable [phone] Reason for Visit * Reason Onset Date Comments Nurse Triage 09/13/2024 Encounter Details Date Type Department Care Team ([facility] st Contact Info) Description 09/13/2024 Telephone [facility] [address] [place], [place] [phone] Aliza Paul DO [address] [place] [address] Nurse Triage Social History Tobacco Use Types [...] now. Pt is offered to come to [facility] which is open till 8pm today but, doesn't have transportation. Pt reports will come tomorrow to [facility] open 830am -400pm. Pt requests an uber ride for tomorrow. Uber is scheduled for 1155am picker tender at Pt address for tomorrow. Pt is [...] Description 12/18/2024 2:45 PM EST Office Visit [facility] [address] [place] [address] Gardenia Doyle MD [address] [place] [address] 02/08/2025 3:00 PM EDT Office Visit [facility] [address] [place] [address] Kimberly Gonzalez OD [address] [place] [address] documented as of this encounter Visit Diagnoses Not on filedocumented in this encounter Additional Health Concerns Assessment Noted Time PHQ-9 Depression Total Score: 15 024 9:20 AM EDT documented as of this encounter Care Teams Life Manager Relationship Specialty Start Date End Date Aliza Paul DO [address] [place] [address] PCP - General Family Medicine 02/23/12 Lesley Ingram Community Health Worker 05/17/24 Rosi Castro RN [address] [place] [address] Adobe Architect 05/17/24 [facility] 07/27/24 documented as of this encounter
--- OUTSIDE RECORDS SUMMARY | 2024-12-08 12:17 | XMS_ITS | Encounter Summary ---
Author Organization [employer] Address [address] [place] [address] 7 [place] [address] Care Team Providers Care Oil Sprayer Name Role Phone Aliza Paul DO Primary Care Provider [phone] Lesley Ingram Unavailable Unavailable Rosi Castro RN Unavailable [phone] Reason for Visit * Reason Comments Med Refill Encounter Details Date Type Department Care Team ([facility] st Contact Info) Description 10/29/2023 Refill [facility] [address] [place] [address] Aliza Paul DO [address] [place] [address] Social History Tobacco Use Types Packs/Day Years [...] Description 12/18/2024 2:45 PM EST Office Visit [facility] [address] [place] [address] Gardenia Doyle MD [address] [place] [address] 02/08/2025 3:00 PM EDT Office Visit [facility] OPTOM[facility] [address] [place] [address] Kimberly Gonzalez OD [address] [place] [address] documented as of this encounter Visit Diagnoses Not on filedocumented in this encounter Care Teams Oil Sprayer Relationship Specialty Start Date End Date Aliza Paul DO [address] [place] [address] PCP - General Family Medicine 02/23/12 Lesley Ingram Community Health Worker 05/17/24 Rosi Castro RN [address] [place] [address] Single Stayer Operator 05/17/24 [email or web address] 07/27/24 documented as of this encounter
--- OUTSIDE RECORDS SUMMARY | 2024-12-08 12:17 | XMS_ITS | Encounter Summary ---
Author Organization [employer] Address [address] [place] [address] 7 [place] [address] Care Team Providers Care Steeping Press Operator Name Role Phone Aliza Paul DO Primary Care Provider [phone] Lesley Ingram Unavailable Unavailable Rosi Castro RN Unavailable [phone] Reason for Visit * Reason Comments Med Refill Encounter Details Date Type Department Care Team ([facility] st Contact Info) Description 10/19/2024 Refill [facility] [address] [place], [place] [phone] Aliza Paul DO [address] [place] [address] Other chronic pain Social History Tobacco Use [...] Description 12/18/2024 2:45 PM EST Office Visit [facility] [address] [place] [address] Gardenia Doyle MD [address] [place] [address] 02/08/2025 3:00 PM EDT Office Visit [facility] OPTOMETRY [address] [place] [address] Kimberly Gonzalez, RIYA [address] [place] [address] documented as of this encounter Visit Diagnoses Diagnosis Other chronic pain documented in this encounter Additional Health Concerns Assessment Noted Time PHQ-9 Depression Total Score: 15 024 9:20 AM EDT documented as of this encounter Care Teams Steeping Press Operator Relationship Specialty Start Date End Date Aliza Paul DO [address] [place] [address] PCP - General Family Medicine 02/23/12 Lesley Ingram Community Health Worker 05/17/24 Rosi Castro RN [address] [place] [address] [place] [address] Manager Fire 05/17/24 [facility] 07/27/24 documented as of this encounter
--- OUTSIDE RECORDS SUMMARY | 2024-12-08 12:17 | XMS_ITS | Encounter Summary ---
Author Organization [employer] Address [address] [place] [address] [place] [address] Care Team Providers Care Video System Repairer Name Role Phone Aliza Paul DO Primary Care Provider [phone] Lesley Ingram Unavailable Unavailable Rosi Castro RN Unavailable [phone] Reason for Visit * Reason Onset Date Comments Durable Medical Equipment 01/13/2024 Encounter Details Date Type Department Care Team (Late st Contact Info) Description 01/13/2024 Telephone [facility] [address] [place], [place] [phone] Aliza Paul DO [address] [place] [address] Durable Medical Equipment Social History Tobacco Use [...] supplies. Pt is also requesting help with [employer] . Please contact pt @ [phone] * Telephone Encounter - Jae Gambino - 01/13/2024 12:57 PM EST Tc from pt requesting an electrical wheel chair, states was advised they need an evaluation by physical therapist. Please contact at [phone] documented in this encounter Plan of Treatment Upcoming Encounters Date Type Department Care Team (Late st Contact Info) Description 12/18/2024 2:45 PM EST Office Visit [facility] [address] [place] [address] Gardenia Doyle MD [address] [place] [address] 02/08/2025 3:00 PM EDT Office Visit [facility] OPTOM[facility] [address] [place] [address] Kimberly Gonzalez, OD [address] [place] [address] documented as of this encounter Visit Diagnoses Not on filedocumented in this encounter Care Teams Video System Repairer Relationship Specialty Start Date End Date Aliza Paul DO [address] [place] [address] PCP - General Family Medicine 02/23/12 Lesley Ingram Community Health Worker 05/17/24 Rosi Castro RN [address] [place] [address] Welder Production Line Gas 05/17/24 [facility] 07/27/24 documented as of this encounter
--- OUTSIDE RECORDS SUMMARY | 2024-12-08 12:17 | XMS_ITS | Encounter Summary ---
Author Organization [employer] Address [address] [place] [address] 7 [place] [address] Care Team Providers Care Rabbit Breeder Name Role Phone Aliza Paul DO Primary Care Provider + [phone] Lesley Ingram Unavailable Unavailable Rosi Castro RN Unavailable [phone] Encounter Details Date Type Department Care Team (Late st Contact Info) Description 03/15/2024 Telephone [facility] [address] [place], [place] [phone] Aliza Paul DO [address] [place], [place] [phone] Social History Tobacco Use Types Packs/Day Years [...] 03/15/2024 10:54 AM EDT TC on 03/09/24 [facility] to make a referral for AFC program, I had to leave a voicemail message on the intake referral VM. The VM stated someone would get back to me in 24-48 hours. TC today 03/15/24 to once again make a referral for patient for the AFC program, intake information given. Patient's insurance was verified and she needs to call [facility] as she has [facility] and they do not provide in home services like CERTIFIED CORPORATE TRAVEL EXECUTIVE or AFC program. I called patient and she stated she was in the hospital at [facility] and had to have neck surgery. When I mentioned about her calling [facility] to straighten out the coverage she was not very pleasant and she told me to do it myself. I contacted Maricruz back at [facility] intake and referral dept and left voice mail message that patient was in the hospital at [facility]. documented in this encounter Plan of Treatment Upcoming Encounters Date Type Department Care Team (Late st Contact Info) Description 12/18/2024 2:45 PM EST Office Visit [facility] [address] [place] [address] Gardenia Doyle MD [address] [place] [address] 02/08/2025 3:00 PM EDT Office Visit [facility] OPT[facility] [address] [place], [place] [phone] Kimberly Gonzalez OD [address] [place] [address] documented as of this encounter Visit Diagnoses Not on filedocumented in this encounter Additional Health Concerns Assessment Noted Time PHQ-9 Depression Total Score: 4 03/09/20 24 9:14 AM EDT documented as of this encounter Care Teams Rabbit Breeder Relationship Specialty Start Date End Date Aliza Paul DO [address] [place], [place] [phone] PCP - General Family Medicine 02/23/12 Lesley Ingram Community Health Worker 05/17/24 Rosi Castro RN [address] [place] [address] Electrical Equipment Assembler 05/17/24 [facility] 07/27/24 documented as of this encounter
--- OUTSIDE RECORDS SUMMARY | 2024-12-08 12:17 | XMS_ITS | Encounter Summary ---
Author Organization [employer] Address [address] [place] [address] 7 [place] [address] Care Team Providers Care Director Water And Waste Services Name Role Phone Aliza Paul DO Primary Care Provider [phone] Lesley Ingram Unavailable Unavailable Rosi Castro RN Unavailable [phone] Encounter Details Date Type Department Care Team (Late st Contact Info) Description 05/18/2024 Telephone [facility] MEDICINE [address] [place], [place] [phone] Aliza Paul DO [address] [place], [place] [phone] Social History Tobacco Use Types Packs/Day Years [...] 2:45 PM EST Office Visit [facility] MEDICINE [address] [place] [address] Gardenia Doyle MD 230 [place] [address] 02/08/2025 3:00 PM EDT Office Visit [facility] OPTOMETRY [address] [place] [address] Kimberly Gonzalez OD [address] [place] [address] documented as of this encounter Visit Diagnoses Not on filedocumented in this encounter Additional Health Concerns Assessment Noted Time PHQ-9 Depression Total Score: 4 03/09/20 24 9:14 AM EDT documented as of this encounter Care Teams Director Water And Waste Services Relationship Specialty Start Date End Date Aliza Paul DO 230 [place] [address] PCP - General Family Medicine 02/23/12 Lesley Ingram Community Health Worker 05/17/24 Rosi Castro RN [address] [place] [address] [place] 05/17/24 [facility] documented as of this encounter
--- OUTSIDE RECORDS SUMMARY | 2024-12-08 12:17 | XMS_ITS | Encounter Summary ---
Author Organization [employer] Address [address] [place] [address] [place] [address] Care Team Providers Care Coal Briquette Machine Operator Name Role Phone Aliza Paul DO Primary Care Provider [phone] Lesley Ingram Unavailable Unavailable Rosi Castro RN Unavailable [phone] Reason for Visit * Reason Onset Date Comments Medication Question 09/28/2024 Encounter Details Date Type Department Care Team ([facility] Contact Info) Description 09/28/2024 Telephone [facility] MEDICINE [address] [place], [place] [phone] Aliza Paul DO [address] [place] [address] Medication Question Social History Tobacco Use Types [...] 8:55 AM EST TC placed to pt [phone] in regards to below message. Pt did not answer, RN left VM requesting CB to red team nurses. Pt to f/u PRN. * Telephone Encounter - Ling Guido - 09/28/2024 4:43 PM EST Tc from pt requesting to speak to nurse regarding medication dosage. Pt also requesting [facility] appointment with PCP on 10/03. Stated anxiety while waiting on hold for PT1 transportation Contact pt at [phone] documented in this encounter Plan of Treatment Upcoming Encounters Date Type Department Care Team (Late st Contact Info) Description 12/18/2024 2:45 PM EST Office Visit [facility] MEDICINE [address] [place] [address] Gardenia Doyle MD [address] [place] [address] 02/08/2025 3:00 PM EDT Office Visit [facility] OPTOMETRY [address] [place] [address] Kimberly Gonzalez OD [address] [place] [address] documented as of this encounter Visit Diagnoses Not on filedocumented in this encounter Additional Health Concerns Assessment Noted Time PHQ-9 Depression Total Score: 15 024 9:20 AM EDT documented as of this encounter Care Teams Coal Briquette Machine Operator Relationship Specialty Start Date End Date Aliza Paul DO [address] [place] [address] PCP - General Family Medicine 02/23/12 Lesley Ingram Community Health Worker 05/17/24 Rosi Castro RN [address] [place] [address] Family Practice Physician Assistant 05/17/24 [facility] Care 07/27/24 documented as of this encounter
--- OUTSIDE RECORDS SUMMARY | 2024-12-08 12:17 | XMS_ITS | Encounter Summary ---
Author Organization [employer] Address [address] [place] [address] [place] [address] Care Team Providers Care Air Crew Officer Name Role Phone Aliza Paul DO Primary Care Provider [phone] Lesley Ingram Unavailable Unavailable Rosi Castro RN Unavailable [phone] Reason for Visit * Reason Onset Date Comments PT-1 10/19/2024 Encounter Details Date Type Department Care Team ([facility] st Contact Info) Description 10/19/2024 Telephone [facility] MEDICINE [address] [place], [place] [phone] Aliza Paul DO [address] [place] [address] PT-1 Social History Tobacco Use Types Packs/Day [...] Y/N: Yes Provider name or facility name: [facility] Facility Address: [address] [place] [address] Escort needed: Y/N: Yes Do you have a wheelchair: Y/N: Yes If yes- Manual or electric: Sathish Visits: Once a month - Patient calling requesting PT1 Home Address verified: Y/N: Yes Provider name or facility name: [facility] Facility Address: [address] [place] [address] Escort needed: Y/N: Yes Do you have a wheelchair: Y/N: Yes If yes- Manual or electric: Sathish Visits: Once a month documented in this encounter Plan of Treatment Upcoming Encounters Date Type Department Care Team (Late st Contact Info) Description 12/18/2024 2:45 PM EST Office Visit [facility] MEDICINE [address] [place] [address] Gardenia Doyle MD [address] [place] [address] 02/08/2025 3:00 PM EDT Office Visit [facility] OPTOMETRY [address] [place] [address] Kimberly Gonzalez OD [address] [place] [address] documented as of this encounter Visit Diagnoses Not on filedocumented in this encounter Additional Health Concerns Assessment Noted Time PHQ-9 Depression Total Score: 15 024 9:20 AM EDT documented as of this encounter Care Teams Air Crew Officer Relationship Specialty Start Date End Date Aliza Paul DO [address] [place] [address] PCP - General Family Medicine 02/23/12 Lesley Ingram Community Health Worker 05/17/24 Rosi Castro RN [address] [place] [address] Practice Support Specialist 05/17/24 [facility] Care 07/27/24 documented as of this encounter
--- OUTSIDE RECORDS SUMMARY | 2024-12-08 12:18 | XMS_ITS | Clinical Summary ---
Author Organization [address] [facility] Address [address] [place] [address] Phone Care Team Providers Care Rod Welder Name Role Phone Aliza Paul DO Primary Care Provider [phone] Encounters Date Type Department Care Team Description 09/29/2024 Lab Requisition [facility] - Main Lab 299 [facility] [place] [address] Aliza Paul DO Urinary tract [...] mirabilis(A ) OFELIA 10/01/2024 9:03 AM EST [facility] Comment: Edited result: Previously reported as Proteus species on 09/30/2024 at 1159 EST. Urine Urine specimen from urinary conduit / Unknown 09/29/2024 3:30 PM EST 09/29/2024 6:23 PM EST [facility] LAB - 10/01/2024 9:03 AM EST [...] Paul DO LAB MICROBIOLOGY - GENERAL ORDERABLES [facility] HOSPITAL LAB [address] [place] [address], from Last 3 Months Care Teams Rod Welder Relationship Specialty Start Date End Date Aliza Paul DO [address] [place] [address] PCP - General Family Medicine 10/04/24
--- OUTSIDE RECORDS SUMMARY | 2024-12-08 12:18 | XMS_ITS | Encounter Summary ---
Author Organization [employer] Address [address] [place] [address] 7t [place] [address] Care Team Providers Care Supervisor Cereal Name Role Phone Aliza Paul DO Primary Care Provider [phone] Lesley Ingram Unavailable Unavailable Rosi Castro RN Unavailable [phone] Reason for Visit * Reason Comments Med Refill Encounter Details Date Type Department Care Team ([facility] st Contact Info) Description 09/29/2024 Refill [facility] MEDICINE 230 [place], [place] [phone] Aliza Paul DO [address] [place] [address] Closed supracondylar fracture of right humerus with [...] Office Visit [facility] MEDICINE [address] [place] [address] Gardenia Doyle MD [address] [place] [address] 02/08/2025 3:00 PM EDT Office Visit [facility] OPTOMETRY [address] [place] [address] Kimberly Gonzalez OD [address] [place] [address] documented as of this encounter Visit Diagnoses Diagnosis Closed supracondylar fracture of right humerus with routine healing Muscle spasm Spasm of muscle documented in this encounter Additional Health Concerns Assessment Noted Time PHQ-9 Depression Total Score: 15 024 9:20 AM EDT documented as of this encounter Care Teams Supervisor Cereal Relationship Specialty Start Date End Date Aliza Paul DO [address] [place] [address] PCP - General Family Medicine 02/23/12 Lesley Ingram Health Worker 05/17/24 Rosi Castro RN [address] [place] [address] Regional Sales Executive 05/17/24 [facility] 07/27/24 documented as of this encounter
--- OUTSIDE RECORDS SUMMARY | 2024-12-08 12:18 | XMS_ITS | Encounter Summary ---
Author Organization [employer] Address [address] [place] [address] 7 [place] [address] Care Team Providers Care Ceramic Coater Name Role Phone Aliza Paul DO Primary Care Provider [phone] Lesley Ingram Unavailable Unavailable Rosi Castro RN Unavailable [phone] Reason for Visit * Reason Comments Med Refill Encounter Details Date Type Department Care Team ([facility] st Contact Info) Description 08/18/2024 Refill [facility] MEDICINE [address] [place], [place] [phone] Aliza Paul DO [address] [place] [address] Closed supracondylar fracture of right humerus with [...] Description 12/18/2024 2:45 PM EST Office Visit [facility] MED[facility] [address] [place] [address] Gardenia Doyle MD [address] [place] [address] 02/08/2025 3:00 PM EDT Office Visit [facility] OPTOMETRY [address] [place] [address] Kimberly Gonzalez OD [address] [place] [address] documented as of this encounter Visit Diagnoses Diagnosis Closed supracondylar fracture of right humerus with routine healing documented in this encounter Additional Health Concerns Assessment Noted Time PHQ-9 Depression Total Score: 4 03/09/20 24 9:14 AM EDT documented as of this encounter Care Teams Ceramic Coater Relationship Specialty Start Date End Date Aliza Paul DO [address] [place] [address] PCP - General Family Medicine 02/23/12 Lesley Ingram Community Health Worker 05/17/24 Rosi Castro RN [address] [place] [address] [employer] 05/17/24 [facility] 07/27/24 documented as of this encounter
--- OUTSIDE RECORDS SUMMARY | 2024-12-08 12:18 | XMS_ITS | Encounter Summary ---
Author Organization [facility] Address [address] [place] [address] Care Team Providers Care Shot Bagger Name Role Phone Aliza Paul DO Primary Care Provider [phone] Encounter Details Date Type Department Care Team (Late st Contact Info) Description 09/29/[address] [facility] - Main Lab [address] [facility] [place] [address] Aliza Paul DO [address] [place], [place] Urinary tract infection, site not specified [...] mirabilis(A ) OFELIA 10/01/2024 9:03 AM EST [facility] Comment: Edited result: Previously reported as Proteus species on 09/30/2024 at 1159 EST. Urine Urine specimen from urinary conduit / Unknown 09/29/2024 3:30 PM EST 09/29/2024 6:23 PM EST Narrative [facility] - 10/01/2024 9:03 AM EST Additional [...] Paul DO LAB MICROBIOLOGY - GENERAL ORDERABLES [facility] [address] [place] [address], documented in this encounter Visit Diagnoses Diagnosis Urinary tract infection, site not specified documented in this encounter Care Teams Shot Bagger Relationship Specialty Start Date End Date Aliza Paul DO [address] [place] [address] PCP - General Family Medicine 10/04/24 documented as of this encounter
--- OUTSIDE RECORDS SUMMARY | 2024-12-08 12:18 | XMS_ITS | Encounter Summary ---
Author Organization [employer] Address [address] [place] [address] [place] [address] Care Team Providers Care Classroom Instructor Name Role Phone Aliza Paul DO Primary Care Provider [phone] Lesley Ingram Unavailable Unavailable Rosi Castro RN Unavailable [phone] Reason for Visit * Reason Onset Date Comments FYI 08/14/2024 Encounter Details Date Type Department Care Team ([facility] st Contact Info) Description 08/14/2024 Telephone [facility] MEDICINE [address] [place], [place] [phone] Aliza Paul DO [address] [place] [address] FYI Social History Tobacco Use Types Packs/Day [...] 10:28 AM EDT [facility] went to visit pt today to be able to change catheter. But when she arrived pt was being put in the ambulance and was going to be transported to [facility] for shortness of breath. documented in this encounter Plan of Treatment Upcoming Encounters Date Type Department Care Team (Late st Contact Info) Description 12/18/2024 2:45 PM EST Office Visit [facility] MEDICINE [address] [place] [address] Gardenia Doyle MD [address] [place] [address] 02/08/2025 3:00 PM EDT Office Visit [facility] OPTOMETRY [address] [place] [address] Kimberly Gonzalez OD [address] [place] [address] documented as of this encounter Visit Diagnoses Not on filedocumented in this encounter Additional Health Concerns Assessment Noted Time PHQ-9 Depression Total Score: 4 03/09/20 9:14 AM EDT documented as of this encounter Care Teams Classroom Instructor Relationship Specialty Start Date End Date Aliza Paul DO [address] [place] [address] PCP - General Family Medicine 02/23/12 Lesley Ingram Community Health Worker 05/17/24 Rosi Castro RN [address] [place] [address] Barratte Operator 05/17/24 [facility] Care 07/27/24 documented as of this encounter
[2024-12-08 12:29] LABS: Influenza A PCR NEGATIVE (Negative); Influenza B PCR NEGATIVE (Negative); Resp Syncy Virus RNA Qual PCR POSITIVE (Negative); SARS COV2 PCR INHOUSE NEGATIVE (Negative)
[2024-12-08 12:36] LABS: Troponin-I High Sensitivity 4.4 ng/L (<3.5-17.0)
[2024-12-08 13:46] LABS: Appearance Urine Turbid; Color Urine Yellow; Glucose Urine UA Negative (Negative); Leukocyte Esterase Urine Moderate (2+) (Negative); Nitrite Urine Negative (Negative); PH >= 9.0 (5.0-9.0); UMIC TRIGGER UACC YES; Urine Blood Large (3+) (Negative); Urine Ketones Negative (Negative); Urine Protein 100 (2+) mg/dL (Neg-Trace)
[2024-12-08 14:02] LABS: Bacteria Urine 2+ (None Seen); Hyaline Casts Urine 0-2 /LPF (0-2); UACC Culture Trigger YES
[2024-12-08 14:03] LABS: Other Crystals Urine Present
--- NOTE | 2024-12-08 14:50 | PC.NURSE ---
covarrubias cath changed per provider request. 16fr 10cc covarrubias placed
[2024-12-08] MEDS: levoFLOXacin 750 MG TABLET PO (17:53)
[2024-12-08] MEDS: Ibuprofen 600 MG TABLET PO (17:53)
== END 2024-12-08 18:43 | disposition home or self-care (01) ==
PROVIDERS: Physician Assistant Medical; Emergency Provider Emergency Medicine; PCP Family Medicine
DX: J40 Bronchitis, not specified as acute or chronic (principal); R05.9 Cough, unspecified; R06.02 Shortness of breath; R94.31 Abnormal electrocardiogram [ECG] [EKG]; Z03.818 Encounter for observation for suspected exposure to other biological agents ruled out; Z79.899 Other long term (current) drug therapy
CPT/HCPCS: 0241U; 71045; 80048; 80076; 81001; 83735; 83880; 84484; 85025; 87086; 87088; 87186; 93005; 94640; 99284; 99285

== ENCOUNTER → 2024-12-08 11:25 | Outpatient (BNV) | payer MEDICAID, SELFPAY | PROVIDERS: Emergency Provider Emergency Medicine; PCP Family Medicine; Visit Provider Internal Medicine | DX: I49.3 Ventricular premature depolarization (principal); I42.2 Other hypertrophic cardiomyopathy | CPT/HCPCS: 93010 ==

== ENCOUNTER → 2024-12-08 11:25 | Outpatient (BNV) | payer MEDICAID, SELFPAY | PROVIDERS: Emergency Provider Emergency Medicine; PCP Family Medicine; Visit Provider Radiology Diagnostic Radiology | DX: R05.9 Cough, unspecified (principal) | CPT/HCPCS: 71045 ==

== ENCOUNTER 2024-12-12 13:32 | Outpatient (AMB) | payer MEDICAID, SELFPAY ==
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
--- OUTSIDE RECORDS SUMMARY | 2024-12-12 13:43 | XMS_ITS | Encounter Summary ---
Author Organization [email or web address] Address [address] [place] [address] 7 [place] [address] Care Team Providers Care Small Parts Shaper Operator Name Role Phone Beverly Aliza Primary Care Provider + [phone] Lesley Ingram Unavailable Unavailable Rosi Castro RN Unavailable [phone] Encounter Details Date Type Department Care [...] Description 12/18/2024 2:45 PM EST Office Visit [facility] [address] [place] [address] Gardenia Doyle MD [address] [place] [address] 02/08/2025 3:00 PM EDT Office Visit [facility] OPTOMETRY [address] [place] [address] Kimberly Gonzalez, OD [address] [place] [address] documented as of this encounter Procedures Procedure [...] EST Narrative 12/05/2024 4:44 PM EST ? [facility] ?[address] ?[place] [address] ? CT Scan Report ? Signed ? Patient: Didato,Cheryl A ?MR#: [id number] ?? 0 ? : 1965 ?Acct:[id number] ? Age/Sex: 59 / F ?ADM Date: 12/05/24 ? Loc: HO.ED ? Attending Dr: ? Ordering Physician: Candice Hastings ?? Date of Service: 12/05/24 ?? Procedure(s): CT cervical spine wo IV con ?? Accession Number(s): [id number] ? cc: Aliza Paul DO; Candice Hastings ? Report Number: ?? [id number]: Total DLP = 1124.00 mGy-cm ?? EXAMINATION: [...] ??12/05/2024 04:41 PM EST RP ?? Workstation: [id number] ? Dictated By: ?Demetrio Valverde MD ? Signed By: ?<Electronically signed by Demetrio Valverde MD in OV> ?12/05/24 1641 ? DD/ 1518 ? TD/TT: 12/05/24 1544 ? Document Scanner: ? Procedure Note Rian Méndez - 12/05/[address] [address] [address] Scan Report Signed Patient: Cheryl Garcia [facility]#: [id number] 0 : 1965Acct:[id number] Age/Sex: 59 / FADM Date: 12/05/24 Loc: HO.ED Attending Dr: Ordering Physician: Candice Hastings Date of Service: 12/05/24 Procedure(s): CT cervical spine wo IV con Accession Number(s): [id number] cc: Aliza Paul DO; Candice Hastings Report Number: [id number]: Total DLP = 1124.00 mGy-cm EXAMINATION: CT [...] by: Demetrio Valverde MD 12/05/2024 04:41 PM [facility] Dictated By: Demetrio Valverde MD Signed By: <Electronically signed by Demetrio Valverde MD in OV> 12/05/24 1641 DD/ 1518 TD/TT: 12/05/24 1544 Document Scanner: us [facility] External Provider IMG CT PROCEDURES Final Result * CT Head w/o Contrast (12/05/2024 2:03 PM EST) Anatomical Region Laterality Modality Head, Neck Computed Tomogra phy 12/05/2024 2:03 PM EST Narrative 12/05/2024 4:36 PM EST ? [facility] ?[address] ?[place] [address] ? CT Scan Report ? Signed ? Patient: Didato,Cheryl A ?MR#: [id number] ?? 0 ? : 1965 ?Acct:[id number] ? Age/Sex: 59 / F ?ADM Date: 12/05/24 ? Loc: HO.ED ? Attending Dr: ? Ordering Physician: Candice Hastings ?? Date of Service: 12/05/24 ?? Procedure(s): CT head/brain wo IV con ?? Accession Number(s): [id number] ? cc: Aliza Paul DO; Candice Hastings ? Report Number: ?? [id number]: Total DLP = ?0.00 mGy-cm ?? EXAMINATION: [...] DD/ 1403 ? TD/TT: 12/05/24 1544 ? Document Scanner: ? Procedure Note Rian Méndez - 12/05/[address] [place] [address] [address] Scan Report Signed Patient: Cheryl Garcia [facility]#: [id number] 0 : 1965Acct:[id number] Age/Sex: 59 / FADM Date: 12/05/24 Loc: HO.ED Attending Dr: Ordering Physician: Candice Hastings Date of Service: 12/05/24 Procedure(s): CT head/brain wo IV con Accession Number(s): [id number] cc: Aliza Paul DO; Candice Hastings Report Number: [id number]: Total DLP = 0.00 mGy-cm EXAMINATION: CT [...] 12/05/24 1634 DD/ 1403 TD/TT: 12/05/24 1544 Document Scanner: [facility] External Provider IMG CT PROCEDURES Final Result * XR Shoulder 2+ Views Right (12/05/2024 2:03 PM EST) Anatomical Region Laterality Modality Upper Extremities, Shoulder Right Radi ographic Imaging 12/05/2024 2:03 PM EST Narrative 12/05/2024 3:24 PM EST ? [facility] ?[address] ?[place] [address] ?XRay Report ? Signed ? Patient: Didato,Cheryl A ?MR#: [id number] ?? 0 ? : 1965 ?Acct:[id number] ? Age/Sex: 59 / F ?ADM Date: 12/05/24 ? Loc: HO.ED ? Attending Dr: ? Ordering Physician: Candice Hastings ?? Date of Service: 12/05/24 ?? Procedure(s): XR shoulder RT min 2V ?? Accession Number(s): [id number] ? cc: Aliza Paul DO; Candice Hastings [...] DD/ 1403 ? TD/TT: 12/05/24 1450 ? Document Scanner: ? Procedure Note Dev, Rian - 12/05/2024 [place] [address] [place] [address] XRay Report Signed Patient: Cheryl Garcia [facility]#: [id number] 0 : 1965Acct:[id number] Age/Sex: 59 / FADM Date: 12/05/24 Loc: HO.ED Attending Dr: Ordering Physician: Candice Hastings Date of Service: 12/05/24 Procedure(s): XR shoulder RT min 2V Accession Number(s): [id number] cc: Aliza Paul DO; Candice Hastings EXAMINATION: [...] neck right proximal humerus. Electronically signed by: Deemtrio Valverde MD 12/05/2024 03:21 PM EST Dictated By: Demetrio Valverde MD Signed By: <Electronically signed by Demetrio Valverde MD in OV> 12/05/24 1521 DD/ 1403 TD/TT: 12/05/24 1450 Document Scanner: [facility] External Provider IMG XR PROCEDURES Final Result * XR Ribs 3 Views Right with Chest 1 View (12/05/2024 2:03 PM EST) Anatomical Region Laterality Modality Radiographic Nidia ging 12/05/2024 2:03 PM EST Narrative 12/05/2024 3:22 PM EST ? [facility] [facility] ?[address] ?[place] [address] ?XRay Report ? Signed ? Patient: Didato,Cheryl A ?MR#: [id number] ?? 0 ? : 1965 ?Acct:[id number] ? Age/Sex: 59 / F ?ADM Date: 12/05/24 ? Loc: HO.ED ? Attending Dr: ? Ordering Physician: Candice Hastings ?? Date of Service: 12/05/24 ?? Procedure(s): XR ribs RT min 3V w CXR1V ?? Accession Number(s): [id number] ? cc: Aliza Paul DO; Candice Hastings [...] ??12/05/2024 03:19 PM EST RP ?? Workstation: [id number] ? Dictated By: ?Demetrio Valverde MD ? Signed By: ?<Electronically signed by Demetrio Valverde MD in OV> ?12/05/24 1519 ? DD/ 1403 ? TD/TT: 12/05/24 1450 ? Document Scanner: ? Procedure Note Rian Méndez - 12/05/[address] [address] XRay Report Signed Patient: Cheryl Garcia [facility]#: [id number] 0 : 1965Acct:[id number] Age/Sex: 59 / FADM Date: 12/05/24 Loc: HO.ED Attending Dr: Ordering Physician: Candice Hastings Date of Service: 12/05/24 Procedure(s): XR ribs RT min 3V w CXR1V Accession Number(s): [id number] cc: Aliza Paul DO; Candice Hastings EXAMINATION: [...] 12/05/24 1519 DD/ 1403 TD/TT: 12/05/24 1450 Document Scanner: [facility] External Provider IMG XR PROCEDURES Final Result * XR Hand 3+ Views Left (12/05/2024 2:03 PM EST) Anatomical Region Laterality Modality Upper Extremities, Hand Left Radiogra phic Imaging 12/05/2024 2:03 PM EST Narrative 12/05/2024 3:18 PM EST ? [facility] [facility] ?[address] ?[place] [address] ?XRay Report ? Signed ? Patient: Didato,Cheryl A ?MR#: [id number] ?? 0 ? : 1965 ?Acct:[id number] ? Age/Sex: 59 / F ?ADM Date: 12/05/24 ? Loc: HO.ED ? Attending Dr: ? Ordering Physician: Candice Hastings ?? Date of Service: 12/05/24 ?? Procedure(s): XR hand LT min 3V ?? Accession Number(s): [id number] ? cc: Aliza Paul DO; Candice Hastings [...] ??12/05/2024 03:15 PM EST RP ?? Workstation: [id number] ? Dictated By: ?Demetrio Valverde MD ? Signed By: ?<Electronically signed by Demetrio Valverde MD in OV> ?12/05/24 1515 ? DD/ 1403 ? TD/TT: 12/05/24 1450 ? Document Scanner: ? Procedure Note Rian Méndez - 12/05/2024 [place] [address] [place] [address] XRay Report Signed Patient: Cheryl Garcia [facility]#: [id number] 0 : 1965Acct:[id number] Age/Sex: 59 / FADM Date: 12/05/24 Loc: HO.ED Attending Dr: Ordering Physician: Candice Hastings Date of Service: 12/05/24 Procedure(s): XR hand LT min 3V Accession Number(s): [id number] cc: Aliza Paul DO; Candice Hastings EXAMINATION: [...] 12/05/24 1515 DD/ 1403 TD/TT: 12/05/24 1450 Document Scanner: [facility] External Provider IMG XR PROCEDURES Final Result * (ABNORMAL) Drug Monitoring, Panel 1, Screen, Urine (11/23/2024 12:48 PM EST) Opiate Screen Urine Not Detected Not Detect [facility] Comment:Opiate cut-off is 30 0 ng/mL.Positive results are unconfirmed and should not be used fornon-medical purposes. Barbiturates, Urine Not Detected Not Detect [facility] Comment:Barbiturate cut-off is 200 ng/mL.Positive results are unconfirmed and should not be used fornon-medical purposes. Phencyclidine Screen Urine Not Detected Not Detect [facility] Comment:Phencyclidine cut-of f is 25 ng/mL.Positive results are unconfirmed and should not be used fornon-medical purposes. Amphetamine Screen Urine Not Detected Not Detect [facility] Comment:Amphetamine cut-off is 1000 ng/mL.Positive results are unconfirmed and should not be used fornon-medical purposes. Benzodiazepines Screen Urine Not Detected Not Detect [facility] Comment:Benzodiazepine cut-o ff is 200 ng/mL.Positive results are unconfirmed and should not be used fornon-medical purposes. Cocaine Screen Urine POSITIVE(A) Not Detect [facility] Comment:Cocaine cut-off is 3 00 ng/mL.Positive results are unconfirmed and should not be used fornon-medical purposes. Cannabinoid Screen Urine POSITIVE(A) Not Detect [facility] Comment:Cannabinoid cut-off is 50 ng/mL.Positive results are unconfirmed and should not be used fornon-medical purposes. Methadone Screen, Urine Not Detected Not Detect ng/mL [facility] Comment:Methadone cut-off is 300 ng/mL.Positive results are unconfirmed and should not be used fornon-medical purposes. FENTANYL URINE Not Detected Not Detect [facility] Comment:Fentanyl cut-off is 1 ng/mL.Positive results are unconfirmed and should not be used fornon-medical purposes. Oxycodone Urine Screen Not Detected Not Detect ng/mL [facility] Comment:Oxycodone cut-off is 100 ng/mL.Positive results are unconfirmed and should not be used fornon-medical purposes. Buprenorphine Screen Not Detected Not Detect ng/mL [facility] Comment:Buprenorphine cut-of f is 5 ng/mL.Positive results are unconfirmed and should not be used fornon-medical purposes. 11/23/2024 12:4 8 PM EST 11/23/2024 12:51 PM EST Generic External Data Provider LAB URINE ORDERAB LES Final Result Performing Organization Address [facility]/ZIP Co de Phone Number [facility] [address] [place] [address] [phone] * (ABNORMAL) Urinalysis, Complete, with Reflex to Culture (11/23/2024 12:47 PM EST) Color Urine Yellow [facility] Appearance Urine Clear [facility] PH 6.0 5.0 - 9.0 [facility] Glucose Urine UA Negative Negative mg/dL [facility] Urine Blood Large (3+)(A) Negative [facility] Specific Jet - Urine 1.025 1.005 - 1.025 [facility] Urine Protein Trace Neg-Trace mg/dL [facility] Urine Ketones Negative Negative mg/dL [facility] Nitrite Urine Negative Negative [facility] Leukocyte Esterase Urine Small (1+)(A) Negative [facility] RBC Urine >20(A) 0 - 2 /HPF [facility] Urine WBC 6-10(A) 0 - 5 /HPF [facility] Urine Squamous Epithelial Cell 0-2 0 - 2 /HPF [facility] Urine Bacteria None Seen None Seen [facility] Hyaline Casts, Urine 3-5 0 - 2 /LPF [facility] 11/23/2024 12:4 7 PM EST 11/23/2024 12:51 PM EST Narrative [facility] - 11/23/2024 12:58 PM EST Urine, [place] Generic External Data Provider LAB URINE ORDERAB LES Final Result Performing Organization Address [facility] Co de Phone Number [facility] [address] [place] [address] [phone] documented in this encounter Visit Diagnoses Not on filedocumented in this encounter Additional Health Concerns Assessment Noted Time PHQ-9 Depression Total Score: 15 10/15/2 024 9:20 AM EDT documented as of this encounter Care Teams Small Parts Shaper Operator Relationship Specialty Start Date End Date Aliza Paul DO [address] [place] [address] PCP - General Family Medicine 02/23/12 Lesley Ingram Community Health Worker 05/17/24 Rosi Castro RN [address] [place] [address] Autocad Operator 05/17/24 [facility] 07/27/24 documented as of this encounter
--- OUTSIDE RECORDS SUMMARY | 2024-12-12 13:43 | XMS_ITS | Encounter Summary ---
Author Organization [employer] Address [address] [place] [address] 7 [place] [address] Care Team Providers Care Manufacturing Technology Analyst Name Role Phone Aliza Paul DO Primary Care Provider [phone] Lesley Ingram Unavailable Unavailable Rosi Castro RN Unavailable [phone] Encounter Details Date Type Department Care Team (Late st Contact Info) Description 05/18/2024 Telephone [facility] MEDICINE [address] [place], [place] [phone] Aliza Paul DO [address] [place], [place] [phone] Social History Tobacco Use Types Packs/Day Years [...] Description 12/18/2024 2:45 PM EST Office Visit [facility] [address] [place] [address] Gardenia Doyle MD [address] [place] [address] 02/08/2025 3:00 PM EDT Office Visit [facility] OPTOMETRY [address] [place] [address] Kimberly Gonzalez OD [address] [place] [address] documented as of this encounter Visit Diagnoses Not on filedocumented in this encounter Additional Health Concerns Assessment Noted Time PHQ-9 Depression Total Score: 4 03/09/20 24 9:14 AM EDT documented as of this encounter Care Teams Manufacturing Technology Analyst Relationship Specialty Start Date End Date Aliza Paul DO [address] [place] [address] PCP - General Family Medicine 02/23/12 Leslye Ingram Community Health Worker 05/17/24 Rosi Castro RN [address] [place] [address] Measurement Technician 05/17/24 [facility] documented as of this encounter
--- OUTSIDE RECORDS SUMMARY | 2024-12-12 13:43 | XMS_ITS | Encounter Summary ---
Author Organization [employer] Address [address] [place] [address] [place] [address] Care Team Providers Care Manager Creative Services Name Role Phone Aliza Paul DO Primary Care Provider [phone] Lesley Ingram Unavailable Unavailable Rosi Castro RN Unavailable [phone] Reason for Visit * Reason Comments Med Refill Encounter Details Date Type Department Care Team ([facility] st Contact Info) Description 06/06/2024 Refill [facility] MED[facility]INE [address] [place], [place] [phone] Aliza Paul DO [address] [place] [address] Chronic nonintractable headache, unspecified headache type Social [...] Description 12/18/2024 2:45 PM EST Office Visit [facility] [address] [place] [address] Gardenia Doyle MD [address] [place] [address] 02/08/2025 3:00 PM EDT Office Visit [facility] OPTOMETRY [address] [place] [address] Kimberly Gonzalez OD [address] [place] [address] documented as of this encounter Visit Diagnoses Diagnosis Chronic nonintractable headache, unspecified headache type documented in this encounter Additional Health Concerns Assessment Noted Time PHQ-9 Depression Total Score: 4 03/09/20 24 9:14 AM EDT documented as of this encounter Care Teams Manager Creative Services Relationship Specialty Start Date End Date Aliza Paul DO [address] [place] [address] PCP - General Family Medicine 02/23/12 Lesley Ingram Community Health Worker 05/17/24 Rosi Castro RN [address] [place] [phone] Wireless Sales Representative 05/17/24 [facility] 07/27/24 documented as of this encounter
--- OUTSIDE RECORDS SUMMARY | 2024-12-12 13:43 | XMS_ITS | Encounter Summary ---
Author Organization [employer] Address [address] [place] [address] 7 [place] [address] Care Team Providers Care Store Stock Help Name Role Phone Aliza Paul DO Primary Care Provider [phone] Leslye Ingram Unavailable Unavailable Rosi Castro RN Unavailable [phone] Encounter Details Date Type Department Care Team (Late st Contact Info) Description 03/15/2024 Telephone [facility] MEDICINE [address] [place], [place] [phone] Aliza Paul DO [address] [place], [place] [phone] Social History Tobacco Use Types Packs/Day Years [...] 03/15/2024 10:54 AM EDT TC on 03/09/24 [facility] to make a referral for AFC program, I had to leave a voicemail message on the intake referral VM. The VM stated someone would get back to me in 24-48 hours. TC today 03/15/24 to once again make a referral for patient for the AFC program, intake information given. Patient's insurance was verified and she needs to call [facility] as she has [employer] [employer] and they do not provide in home services like PRODUCTION TRAINER or AFC program. I called patient and she stated she was in the hospital at [facility] and had to have neck surgery. When I mentioned about her calling [facility] to straighten out the coverage she was not very pleasant and she told me to do it myself. I contacted Maricruz back at [facility] intake and referral dept and left voice mail message that patient was in the hospital at [facility]. documented in this encounter Plan of Treatment Upcoming Encounters Date Type Department Care Team (Late st Contact Info) Description 12/18/2024 2:45 PM EST Office Visit [facility] MEDICINE [address] [place] [address] Gardenia Doyle MD [address] [place] [address] 02/08/2025 3:00 PM EDT Office Visit [facility] OPTOMETRY [address] [place], [place] [phone] Kimberly Gonzalez OD [address] [place] [address] documented as of this encounter Visit Diagnoses Not on filedocumented in this encounter Additional Health Concerns Assessment Noted Time PHQ-9 Depression Total Score: 4 03/09/20 24 9:14 AM EDT documented as of this encounter Care Teams Store Stock Help Relationship Specialty Start Date End Date Aliza Paul DO [address] [place], [place] [phone] PCP - General Family Medicine 02/23/12 Lesley Ingram Community Health Worker 05/17/24 Rosi Castro RN [address] [place] [phone] Freight Caller 05/17/24 [facility] 07/27/24 documented as of this encounter
--- OUTSIDE RECORDS SUMMARY | 2024-12-12 13:43 | XMS_ITS | Encounter Summary ---
Author Organization [employer] Address [address] [place] [address] [place] [address] Care Team Providers Care General Manager Land Department Name Role Phone Aliza Paul DO Primary Care Provider [phone] Lesley Ingram Unavailable Unavailable Rosi Castro RN Unavailable [phone] Encounter Details Date Type Department Care Team ([facility] Contact Info) Description 11/04/2022 Telephone [facility] MEDICINE [address] [place] [address] [phone] Aliza Paul DO [address] [place] [address] [phone] Social History Tobacco Use Types Packs/Day Years [...] Upcoming Encounters Date Type Department Care Team ([facility] Contact Info) Description 12/18/2024 2:45 PM EST Office Visit [address] [address] Gardenia Doyle MD [address] [place] [address] [phone] 02/08/2025 3:00 PM EDT Office Visit [facility] OPTOMETRY [address] [place], [place] [phone] Kimberly Gonzalez, OD [address] [place] [address] documented as of this encounter Visit Diagnoses Not on filedocumented in this encounter Care Teams General Manager Land Department Relationship Specialty Start Date End Date Aliza Paul DO [address] [place] [address] PCP - General Family Medicine 02/23/12 Lesley Ingram Community Health Worker 05/17/24 Rosi Castro, RICHARDSON [address] [place] [address] Quality Control Expert 05/17/24 [facility] 07/27/24 documented as of this encounter
--- OUTSIDE RECORDS SUMMARY | 2024-12-12 13:43 | XMS_ITS | Encounter Summary ---
Author Organization [employer] Address [address] [place] [address] [place] [address] Care Team Providers Care Solder Making Laborer Name Role Phone Aliza Paul DO Primary Care Provider [phone] Lesley Ingram Unavailable Unavailable Rosi Castro RN Unavailable [phone] Encounter Details Date Type Department Care Team ([facility] Contact Info) Description 11/04/2022 [facility] Health Information Management [address] [place] [address] Aliza Paul DO [address] [place], [place] [phone] Social History Tobacco Use Types Packs/Day Years [...] Care Team ([facility] Contact Info) Description 12/18/2024 2:45 PM EST Office Visit [facility] MEDICINE [address] [place] [address] Gardenia Doyle MD [address] [place] [address] 02/08/2025 3:00 PM EDT Office Visit [facility] OPTOMETRY [address] [place] [address] Kimberly Gonzalez, OD [address] [place] [address] documented as of this encounter Visit Diagnoses Not on filedocumented in this encounter Care Teams Solder Making Laborer Relationship Specialty Start Date End Date Aliza Paul DO [address] [place] [address] PCP - General Family Medicine 02/23/12 Lesley Ingram Community Health Worker 05/17/24 Rosi Castro, RICHARDSON [address] [place] [address] Transformer Mechanic 05/17/24 [facility] 07/27/24 documented as of this encounter
--- OUTSIDE RECORDS SUMMARY | 2024-12-12 13:43 | XMS_ITS | Encounter Summary ---
Author Organization [employer] Address [address] [place] [address] 7 [place] [address] Care Team Providers Care Metal Drawer Name Role Phone Aliza Paul DO Primary Care Provider [phone] Lesley Ingram Unavailable Unavailable Rosi Castro RN Unavailable [phone] Reason for Visit * Reason Comments Med Refill Encounter Details Date Type Department Care Team ([facility] st Contact Info) Description 07/01/2024 Refill [facility] MEDICINE [address] [place], [place] [phone] Aliza Paul DO [address] [place] [address] Other chronic pain Social History Tobacco Use [...] 2:45 PM EST Office Visit [facility] MEDICINE [address] [place] [address] Gardenia Doyle MD [address] [place] [address] 02/08/2025 3:00 PM EDT Office Visit [facility] OPTOMETRY [address] [place] [address] Kimberly Gonzalez OD [address] [place] [address] documented as of this encounter Visit Diagnoses Diagnosis Other chronic pain documented in this encounter Additional Health Concerns Assessment Noted Time PHQ-9 Depression Total Score: 4 03/09/20 24 9:14 AM EDT documented as of this encounter Care Teams Metal Drawer Relationship Specialty Start Date End Date Aliza Paul DO [address] [place] [address] PCP - General Family Medicine 02/23/12 Lesley Ingram Community Health Worker 05/17/24 Rosi Castro RN [address] [place] [address] Vocal Performer 05/17/24 [facility] 07/27/24 documented as of this encounter
--- OUTSIDE RECORDS SUMMARY | 2024-12-12 13:43 | XMS_ITS | Encounter Summary ---
Author Organization [employer] Address [address] [place] [address] 7 [place] [address] Care Team Providers Care Supervisor Transcribing Operators Name Role Phone Beverly Aliza Primary Care Provider [phone] Lesley Ingram Unavailable Unavailable Rosi Castro RN Unavailable [phone] Encounter Details Date Type Department Care [...] 12/18/2024 2:45 PM EST Office Visit [facility] MEDICINE [address] [place] [address] Gardenia Doyle MD [address] [place] [address] 02/08/2025 3:00 PM EDT Office Visit [facility] OPTOMETRY [address] [place] [address] Kimberly Gonzalez, OD [address] [place] [address] documented as of this encounter Procedures Procedure Name Priority Date/Time Associated Diagnosis Comments URINALYSIS, COMPLETE, WITH REFLEX TO CULTURE Routine 12/08/2024 1:37 PM EST HIGH SENSITIVITY TROPONIN I Routine 12/08/2024 11:48 AM EST CBC WITH AUTO DIFFERENTIAL Routine 12/08/2024 11:48 AM EST B TYPE NATRIURETIC PEPTIDE (BNP) Routine 12/08/2024 11:48 AM EST MAGNESIUM Routine 12/08/2024 11:48 AM EST HEPATIC FUNCTION PANEL Routine 12/08/2024 11:48 AM EST BASIC METABOLIC PANEL Routine 12/08/2024 11:48 AM EST SARS COV2/INFLUENZA A/B AND RSV RNA QL NAAT Routine 12/08/2024 11:39 AM EST XR CHEST 1 VIEW Routine 12/08/2024 11:25 AM EST CULTURE, URINE, ROUTINE Routine 12/08/2024 12:00 AM EST documented in this encounter Results * (ABNORMAL) Urinalysis, Complete, with Reflex to Culture (12/08/2024 1:37 PM EST) Color Urine Yellow [facility] Appearance Urine Turbid [facility] PH >=9.0 5.0 - 9.0 [facility] Glucose Urine UA Negative Negative mg/dL [facility] Urine Blood Large (3+)(A) Negative [facility] Specific [place] - Urine 1.020 1.005 - 1.025 [facility] Urine Protein 100 (2+)(A) Neg-Trace mg/dL [facility] Urine Ketones Negative Negative mg/dL [facility] Nitrite Urine Negative Negative [facility] Leukocyte Esterase Urine Moderate (2+)(A) Negative [facility] RBC Urine 11-20(A) 0 - 2 /HPF [facility] Urine WBC 6-10 0 - 5 /HPF [facility] Urine Squamous Epithelial Cell 3-5 0 - 2 /HPF [facility] Other Crystals Urine Present [facility] Comment:TRIPLE PHOSPHATE NOT ED Urine Bacteria 2+ None Seen [facility] Hyaline Casts, Urine 0-2 0 - 2 /LPF [facility] 12/08/2024 1:37 PM EST 12/08/2024 1:40 PM EST Narrative [facility] - 12/08/2024 2:03 PM EST [id number], [place] us Generic External Data Provider LAB URINE ORDERAB LES Final Result [facility] [address] [place] [address] [phone] * High Sensitivity Troponin I (12/08/2024 11:48 AM EST) Pathologist [facility] TROPONIN I HIGH SENSITIVITY 4.4 <3.5 - 17.0 ng/L [facility] Comment:The [place] high sens itivity Troponin-I results should beused in conjunction with other diagnostic information suchas ECG, clinical observations and information, and patientsymptoms to aid in the diagnosis of CA. 12/08/2024 11:4 8 AM EST 12/08/2024 11:50 AM EST Generic External Data Provider LAB BLOOD ORDERAB LES Final Result Performing Organization Address [facility] Co de Phone Number [facility] [address] [place] [phone] * (ABNORMAL) B Type Natriuretic Peptide (BNP) (12/08/2024 11:48 AM EST) [facility] B Type Natriuretic Peptide 107(H) <100 pg/mL [facility] Comment:For those patients w ho are being treated with Natrecor(nesiritide, recombinant BNP), BNP testing should beperformed at least two hours post treatment in order toensure that only endogenous levels of BNP are detected. 12/08/2024 11:4 8 AM EST 12/08/2024 11:50 AM EST us Generic External Data Provider LAB BLOOD ORDERAB LES Final Result Performing Organization Address [facility] Co de Phone Number [facility] [address] [place] [address] [phone] * Magnesium (12/08/2024 11:48 AM EST) [facility] Magnesium 1.8 1.6 - 2.6 mg/dL [facility] 12/08/2024 11:4 8 AM EST 12/08/2024 11:50 AM EST us Generic External Data Provider LAB BLOOD ORDERAB LES Final Result Performing Organization Address City/[facility]/ZIP Co de Phone Number [facility] [address] [place] [address] [phone] * (ABNORMAL) Basic Metabolic Panel (12/08/2024 11:48 AM EST) Sodium 142 135 - 145 mmol/L [facility] Potassium 3.4 3.3 - 5.1 mmol/L [facility] Chloride 110(H) 96 - 108 mmol/L [facility] Carbon Dioxide 24 22 - 29 mmol/L [facility] Anion Gap 11(L) 12 - 20 [facility] Urea Nitrogen (BUN) 15 9 - 16 mg/dL [facility] Creatinine, Serum 0.70 0.5 - 1.4 mg/dL [facility] Creatinine Clr Calc Pharmacy 89.2 [facility] Comment:Provided height and weight: 160.02 cm,84.6 kg.eGFR (calculated from the MDRD study equation) and eCrCl(calculated from the Cockcroft-Gault equation) are based ondifferent parameters and may not yield comparable results.If eCrCl result is absurd, please check patient'sheight/weight. Estimated Glomerular Filt Rate >60 [facility] Comment:Chronic Kidney Disea se: Estimated GFR < 60 mL/min/1.68c3Rblyvy Kidney Disease: Estimated GFR < 15 mL/min/1.73m2 Glucose 104 60 - 115 mg/dL [facility] Calcium 9.9 8.4 - 10.2 mg/dL [facility] 12/08/2024 11:4 8 AM EST 12/08/2024 11:50 AM EST us Generic External Data Provider LAB BLOOD ORDERAB LES Final Result Performing Organization Address City/[facility]/ZIP Co de Phone Number [facility] [address] [place] [address] [phone] * Hepatic Function Panel (12/08/2024 11:48 AM EST) Pathologist [facility] Bilirubin, Total 0.5 0.0 - 1.0 mg/dL [facility] Bilirubin, Direct 0.2 0.0 - 0.5 mg/dL [facility] Aspartate Amino Transferase 12 5 - 31 U/L [facility] Alanine Aminotransferase 12 0 - 31 U/L [facility] Total Protein 7.2 6.5 - 8.0 g/dL [facility] Albumin Level 3.8 3.5 - 5.0 g/dL [facility] Alkaline Phosphatase 84 39 - 117 U/L [facility] 12/08/2024 11:4 8 AM EST 12/08/2024 11:50 AM EST us Generic External Data Provider LAB BLOOD ORDERAB LES Final Result Performing Organization Address City/State/[place] Co de Phone Number [facility] [address] [place] [phone] * (ABNORMAL) CBC auto differential (12/08/2024 11:48 AM EST) Pathologist [facility] White Blood Count 10.6 4.8 - 10.8 X10*3/uL [facility] Red Blood Count 5.36 4.20 - 5.50 X10*6/uL [facility] Hemoglobin 14.3 12.0 - 16.0 g/dl [facility] Hematocrit 42.6 37.0 - 47.0 % [facility] Mean Corpuscular Volume 79.5(L) 80.0 - 98.0 fL [facility] Mean Corpuscular Hemoglobin 26.7(L) 27.0 - 33.0 pg [facility] Mean Corpuscular HGB Conc 33.6 31.0 - 35.0 g/dl [facility] Red Cell Distribution Width 13.5 11.0 - 16.0 % [facility] Platelet Count 341 160 - 400 X10*3/uL [facility] Mean Platelet Volume 9.3(L) 9.4 - 12.3 fL [facility] Neutrophils Percent Auto 60.2 45 - 73 % [facility] Imm Gran Pct Auto 0.3 0.0 - 0.4 % [facility] Lymphocytes Percent Auto 28.0 20 - 40 % [facility] Monocytes Percent Auto 7.3 2 - 11 % [facility] Eosinophils Percent Auto 3.5 0 - 4 % [facility] Basophils Percent Auto 0.7 0 - 2 % [facility] NRBC Pct Auto 0.0 0.0 - 0.2 /100WBC [facility] Neutrophils Absolute Auto 6.4 2.0 - 8.3 x10*3/uL [facility] Imm Gran Abs Auto 0.03 0.00 - 0.03 X10*3/uL [facility] Lymphocytes Absolute Auto 3.0 1.2 - 4.9 X10*3/uL [facility] Monocytes Absolute Auto 0.8 0.1 - 1.2 X10*3/uL [facility] Eosinophils Absolute Auto 0.4 0.0 - 0.4 X10*3/uL [facility] Basophils Absolute Auto 0.1 0.0 - 0.2 X10*3/uL [facility] NRBC Abs Auto 0.000 0.0 - 0.012 X10*3/uL [facility] 12/08/2024 11:4 8 AM EST 12/08/2024 11:50 AM EST us Generic External Data Provider LAB BLOOD ORDERAB LES Final Result [facility] [address] [place] [address] [phone] * (ABNORMAL) SARS-CoV-2 RNA, Influenza A/B, and RSV RNA, Ql NAAT (12/08/2024 11:39 AM EST) Influenza A PCR NEGATIVE Negative [facility] Influenza B PCR NEGATIVE Negative [facility] Resp Syncy Virus RNA Qual PCR POSITIVE(A) Negative [facility] SARS COV2 PCR NEGATIVE Negative [facility] Comment:All test results mus t be correlated with clinical findings.Negative results do not preclude SARS-CoV2, influenza Avirus, influenza B virus and/or RSV infectionand should not be used as the sole basis for treatment orother patient management decisions. Negative results must becombined with clinical observations, patient history, andepidemiological information.This test has not been evaluated for monitoring treatment ofinfection.This test has been authorized by the FDA under an EmergencyUse Authorization (EUA) for use by authorized laboratories.Testing performed on the [employer] GeneXpert utilizingreal-time RT-PCR.All SARS CoV2 and positive influenza A/B results arereported to [facility]. 12/08/2024 11:3 9 AM EST 12/08/2024 11:50 AM EST us Generic External Data Provider LAB MICROBIOLOGY - GENERAL ORDERABLES Final Result Performing Organization Address City/State/[place] Co de Phone Number [facility] [address] [place] [phone] * XR Chest 1 View (12/08/2024 11:25 AM EST) Anatomical Region Laterality Modality Chest Radiographic Nidia ging 12/08/2024 11:2 5 AM EST Narrative 12/08/2024 12:08 PM EST ? [facility] ?[address] ?[place] [address] ?XRay Report ? Signed ? Patient: Didato,Chreyl A ?MR#: [id number] ?? 0 ? : 1965 ?Acct:[id number] ? Age/Sex: 59 / F ?ADM Date: 01/31/25 ? Loc: HO.ED ? Attending Dr: ? Ordering Physician: Suzy Frye DO ?? Date of Service: 12/08/24 ?? Procedure(s): XR chest 1V ?? Accession Number(s): [id number] ? cc: Suzy Frye DO; Aliza Paul [...] DD/ 1125 ? TD/TT: 12/08/24 1155 ? Garment Form Assembler: ? Procedure Note Donotraginiinterpreter, Image - 12/08/2024 [place] [address] XRay Report Signed Patient: Cheryl Garcia AMR#: [id number] 0 : 1965Acct:[id number] Age/Sex: 59 / FADM Date: 12/08/24 Loc: HO.ED Attending Dr: Ordering Physician: Suzy Frye DO Date of Service: 12/08/24 Procedure(s): XR chest 1V Accession Number(s): [id number] cc: Suzy Frye DO; Aliza Paul DO [...] by: Ulises Mir MD 12/08/2024 12:05 PM EST RP Dictated By: Ulises Mir MD Signed By: <Electronically signed by Ulises Mir MD in OV> 12/08/24 1205 DD/ 1125 TD/TT: 12/08/24 1155 Garment Form Assembler: [facility] External Provider IMG XR PROCEDURES Final Result * Culture, Urine, Routine (12/08/2024 12:00 AM EST) Urine Urine specimen obtained by clean catch procedure / Unknown 12/08/2024 12/08/2024 Comment:[facility] Narrative [facility] - 12/11/2024 8:27 AM EST Proteus mirabilis Quant > 100,000 cfu/mL Proteus mirabilis: Ampicillin <=2(S) Proteus mirabilis: Cefazolin (Urine) 4(S) Proteus mirabilis: Cefepime <=0.12(S) Proteus mirabilis: Ceftriaxone <=0.25(S) Proteus mirabilis: Ciprofloxacin <=0.06(S) Proteus mirabilis: Gentamicin <=1(S) Proteus mirabilis: Nitrofurantoin 256(R) Proteus mirabilis: Trimethoprim/Sulfamethoxazole <=20(S) Specimen Source: Urine clean catch Generic External Data Provider LAB MICROBIOLOGY - GENERAL ORDERABLES Final Result Performing Organization Address City/State/[place] Co de Phone Number [facility] [address] [place] [phone] documented in this encounter Visit Diagnoses Not on filedocumented in this encounter Additional Health Concerns Assessment Noted Time PHQ-9 Depression Total Score: 15 024 9:20 AM EDT documented as of this encounter Care Teams Supervisor Transcribing Operators Relationship Specialty Start Date End Date Ailza Paul DO [address] [place] [phone] PCP - General Family Medicine 02/23/12 Lesley Ingram Community Health Worker 05/17/24 Rosi Castro RN [address] [place] [address] Tile Decorator 05/17/24 [facility] 07/27/24 documented as of this encounter
--- OUTSIDE RECORDS SUMMARY | 2024-12-12 13:43 | XMS_ITS | Encounter Summary ---
Author Organization [employer] Address [address] [place] [address] [place] [address] Care Team Providers Care Parquetry Layer Name Role Phone Aliza Paul DO Primary Care Provider [phone] Lesley Ingram Unavailable Unavailable Rosi Castro RN Unavailable [phone] Reason for Visit * Reason Onset Date Comments Nurse Triage 11/20/2024 Encounter Details Date Type Department Care Team ([facility] st Contact Info) Description 11/20/2024 Telephone [facility] MEDICINE [address] [place], [place] [phone] Aliza Paul DO [address] [place] [address] Nurse Triage Social History Tobacco Use Types [...] 10:29 AM EST TC placed to patient [phone] to status check below. Patient reports she [...] become anxious. RN advised patient to have TUTORIAL LABORATORY SUPERVISOR call PT1 for patient to facilitate transportation. Patient agreeable to this plan and will return call to [facility] if s/s worsen. Patientto f/u PRN. * Telephone Encounter - Bria Chester LPN - 11/20/2024 10:08 AM EST Please obtain [facility] ED note from visit 11/19/24. * Telephone Encounter - Bria Chester LPN - 11/20/2024 10:04 AM EST Triage call returned to patient who reports that she was seen in [facility] ED yesterday and [...] at time of call. Advised to have TUTORIAL LABORATORY SUPERVISOR continuous pickling line pickler medications today for home use as ordered. Team tasked to follow as needed for status check . Protocol Used: Breathing Difficulty (Adult) Protocol-Based Disposition: Go to ED/[facility] Now (or to Office with PCP Approval) [...] Description 12/18/2024 2:45 PM EST Office Visit [facility] MEDICINE [address] [place] [address] Gardenia Doyle MD [address] [place] [address] 02/08/2025 3:00 PM EDT Office Visit [facility] OPTOMETRY [address] [place] [address] Kimberly Gonzalez OD [address] [place] [address] documented as of this encounter Visit Diagnoses Not on filedocumented in this encounter Additional Health Concerns Assessment Noted Time PHQ-9 Depression Total Score: 15 024 9:20 AM EDT documented as of this encounter Care Teams Parquetry Layer Relationship Specialty Start Date End Date Aliza Paul DO [address] [place] [address] PCP - General Family Medicine 02/23/12 Lesley Ingram Community Health Worker 05/17/24 Rosi Castro RN [address] [place] [phone] Senior Water/Wastewater Engineer 05/17/24 [facility] Care 07/27/24 documented as of this encounter
--- OUTSIDE RECORDS SUMMARY | 2024-12-12 13:43 | XMS_ITS | Encounter Summary ---
Author Organization [employer] Address [address] [place] [address] [place] [address] Care Team Providers Care Data Management Name Role Phone Aliza Paul DO Primary Care Provider [phone] Lesley Ingram Unavailable Unavailable Rosi Castro RN Unavailable [phone] Reason for Visit * Reason Onset Date Comments No Show 12/06/2024 Encounter Details Date Type Department Care Team ([facility] st Contact Info) Description 12/06/2024 Telephone [facility] MEDICINE [address] [place], [place] [phone] Aliza Paul DO [address] [place], [place] [phone] No Show Social History Tobacco Use Types [...] Description 12/18/2024 2:45 PM EST Office Visit [facility] MEDICINE [address] [place] [address] Gardenia Doyle MD [address] [place] [address] 02/08/2025 3:00 PM EDT Office Visit [facility] OPTOMETRY [address] [place] [address] Kimberly Gonzalez OD [address] [place] [address] documented as of this encounter Visit Diagnoses Not on filedocumented in this encounter Additional Health Concerns Assessment Noted Time PHQ-9 Depression Total Score: 15 024 9:20 AM EDT documented as of this encounter Care Teams Data Management Relationship Specialty Start Date End Date Aliza Paul DO [address] [place] [address] PCP - General Family Medicine 02/23/12 Lesley Ingram Community Health Worker 05/17/24 Rosi Castro RN [address] [place] [address] Roving Frame Tender 05/17/24 [facility] Care 07/27/24 documented as of this encounter
--- OUTSIDE RECORDS SUMMARY | 2024-12-12 13:43 | XMS_ITS | Encounter Summary ---
Author Organization [employer] Address [address] [place] [address] [place] [address] Care Team Providers Care Logging Tractor Operator Name Role Phone Aliza Paul DO Primary Care Provider [phone] Lesley Ingram Unavailable Unavailable Rosi Castro RN Unavailable [phone] Reason for Visit * Reason Onset Date Comments PT-1 10/19/2024 Encounter Details Date Type Department Care Team ([facility] st Contact Info) Description 10/19/2024 Telephone [facility] MEDICINE [address] [place], [place] [phone] Aliza Paul DO [address] [place] [address] PT-1 Social History Tobacco Use Types Packs/Day [...] Y/N: Yes Provider name or facility name: [facility] Facility Address: [address] [place] [address] Escort needed: Y/N: Yes Do you have a wheelchair: Y/N: Yes If yes- Manual or electric: Sathish Visits: Once a month - Patient calling requesting PT1 Home Address verified: Y/N: Yes Provider name or facility name: [facility] Facility Address: [address] [place] [address] Escort needed: Y/N: Yes Do you have a wheelchair: Y/N: Yes If yes- Manual or electric: Sathish Visits: Once a month documented in this encounter Plan of Treatment Upcoming Encounters Date Type Department Care Team (Late st Contact Info) Description 12/18/2024 2:45 PM EST Office Visit [facility] MEDICINE [address] [place] [address] Gardenia Doyle MD [address] [place] [address] 02/08/2025 3:00 PM EDT Office Visit [facility] OPTOMETRY [address] [place] [address] Kimberly Gonzalez OD [address] [place] [address] documented as of this encounter Visit Diagnoses Not on filedocumented in this encounter Additional Health Concerns Assessment Noted Time PHQ-9 Depression Total Score: 15 024 9:20 AM EDT documented as of this encounter Care Teams Logging Tractor Operator Relationship Specialty Start Date End Date Aliza Paul DO [address] [place] [address] PCP - General Family Medicine 02/23/12 Lesley Ingram Community Health Worker 05/17/24 Rosi Castro RN [address] [place] [address] Customs And Immigration Officer 05/17/24 [facility] Care 07/27/24 documented as of this encounter
--- OUTSIDE RECORDS SUMMARY | 2024-12-12 13:43 | XMS_ITS | Encounter Summary ---
Author Organization [employer] Address [address] [place] [address] [place] [address] Care Team Providers Care Household Refrigeration Mechanic Name Role Phone Aliza Paul DO Primary Care Provider [phone] Lesley Ingram Unavailable Unavailable Rosi Castro RN Unavailable [phone] Reason for Visit * Reason Onset Date Comments FYI 05/15/2024 Encounter Details Date Type Department Care Team ([facility] st Contact Info) Description 05/15/2024 Telephone [facility] MEDICINE [address] [place], [place] [phone] Aliza Paul DO [address] [place] [address] FYI Social History Tobacco Use Types Packs/Day [...] be receiving home health care service with [facility] and referral was also made to [facility] for additional homemaking, personal care and PEDIATRIC CNS services. Pt. Declined services. FYI for HDF 05/23/24 * Telephone Encounter - Timoteo Blank - 05/15/2024 1:04 PM EDT Tc from [facility] with [facility] calling to inform they were unable to admit pt into services, Karlie stated they managed to get in contact with pt but pt gave another excuse on why she wasn't able to accept services. If any questions you can contact Karlie at [phone]. documented in this encounter Plan of Treatment Upcoming Encounters Date Type Department Care Team (Late st Contact Info) Description 12/18/2024 2:45 PM EST Office Visit [facility] MEDICINE [address] [place], [place] [phone] Gardenia Doyle MD [address] [place], [place] [phone] 02/08/2025 3:00 PM EDT Office Visit [facility] OPTOMETRY [address] [place], [place] [phone] Kimberly Gonzalez OD [address] [place] [address] documented as of this encounter Visit Diagnoses Not on filedocumented in this encounter Additional Health Concerns Assessment Noted Time PHQ-9 Depression Total Score: 4 03/09/20 24 9:14 AM EDT documented as of this encounter Care Teams Household Refrigeration Mechanic Relationship Specialty Start Date End Date Aliza Paul DO [address] [place] [address] PCP - General Family Medicine 02/23/12 Lesley Ingram Community Health Worker 05/17/24 Rosi Castro RN [address] [place] [address] Composition Roofer 05/17/24 [facility] Care 07/27/24 documented as of this encounter
--- OUTSIDE RECORDS SUMMARY | 2024-12-12 13:43 | XMS_ITS | Encounter Summary ---
Author Organization [employer] Address [address] [place] [address] 7 [place] [address] Care Team Providers Care School Childcare Attendant Name Role Phone Aliza Paul DO Primary Care Provider [phone] Leslye Ingram Unavailable Unavailable Rosi Castro RN Unavailable [phone] Reason for Visit * Reason Onset Date Comments 180 Medical 12/06/2024 Lube steril pack ets, straight tip urinary catheter, covarrubias latex catheter, bedside bags, insertion trays Encounter Details Date Type Department Care Team (Late st Contact Info) Description 12/06/2024 Telephone [facility] [address] [place], [place] [phone] Aliza Paul DO 230 [place], [place] [phone] Medical (Lube steril packets, straight tip [...] and insertion tray signed and faxed to [facility] . Confirmation received and sent to scan. If patient calls to check status on above, please advise them to contact [facility] . * Telephone Encounter - Donna Lujan MA - 12/06/2024 9:59 AM EST Received medical necessity form from [address] [place] [address] for, lube steril packets, straight tip urinary catheter, covarrubias latex catheter, bedside bags, and insertion trays. For has been placed on PCP's desk for signature. documented in this encounter Plan of Treatment Upcoming Encounters Date Type Department Care Team (Late st Contact Info) Description 12/18/2024 2:45 PM EST Office Visit [facility] [address] [place] [address] Gardenia Doyle MD 230 [place] [address] 02/08/2025 3:00 PM EDT Office Visit [facility] [address] [place] [address] Kimberly Gonzalez, RIYA [address] [place] [address] documented as of this encounter Visit Diagnoses Not on filedocumented in this encounter Additional Health Concerns Assessment Noted Time PHQ-9 Depression Total Score: 15 024 9:20 AM EDT documented as of this encounter Care Teams School Childcare Attendant Relationship Specialty Start Date End Date Aliza Paul DO 230 [place] [address] PCP - General Family Medicine 02/23/12 Lesley Ingram Community Health Worker 05/17/24 Rosi Castro RN [address] [place] [address] Epic Prelude Analyst 05/17/24 [facility] Care 07/27/24 documented as of this encounter
--- OUTSIDE RECORDS SUMMARY | 2024-12-12 13:43 | XMS_ITS | Encounter Summary ---
Author Organization [employer] Address [address] [place] [address] 7 [place] [address] Care Team Providers Care Vice President Quality Name Role Phone Aliza Paul DO Primary Care Provider [phone] Lesley Ingram Unavailable Unavailable Rosi Castro RN Unavailable [phone] Reason for Visit * Reason Comments Transition Of Care (Tcm) HDF- scheduled -SDOH unable to complete. Encounter Details Date Type Department Care Team ([facility] st Contact Info) Description 11/28/2024 Patient Outreach [facility] [address] [place], [place] [phone] Aliza Paul DO [address] [place] [address] Transition Of Care (Tcm) (HDF- scheduled -SDOH [...] 11/28/24 1259 Hospital Discharges and Admission for [facility] Type of Visit Hospital Admission Date of Admission/Visit 11/23/24 Date of Discharge 11/25/24 [facility] Diagnosis RSV Disposition Discharged Home Follow-Up [...] min on 12/06/2024 at 10:45am with . Sales Assistant spoke with nurses to see if patient [...] Wednesdays, and Walk-In Urgent Care Located in [facility]. Patient provided with after-hours line for [facility], , which offer night time triage service and option to transfer to bond manager provider if needed. CC scanned discharge summary into patient's chart. CC was unable to complete PVP screening, will need to be complete it inoffice. documented in this encounter Plan of Treatment Upcoming Encounters Date Type Department Care Team (Late st Contact Info) Description 12/18/2024 2:45 PM EST Office Visit [facility] [address] [place] [address] Gardenia Doyle MD [address] [place] [address] 02/08/2025 3:00 PM EDT Office Visit [facility] [address] [place] [address] Kimberly Gonzalez OD [address] [place] [address] documented as of this encounter Visit Diagnoses Not on filedocumented in this encounter Additional Health Concerns Assessment Noted Time PHQ-9 Depression Total Score: 15 024 9:20 AM EDT documented as of this encounter Care Teams Vice President Quality Relationship Specialty Start Date End Date Aliza Paul DO [address] [place] [address] PCP - General Family Medicine 02/23/12 Lesley Ingram Community Health Worker 05/17/24 Rosi Castro RN [address] [place] [address] Academic Dean 05/17/24 [facility] 07/27/24 documented as of this encounter
--- OUTSIDE RECORDS SUMMARY | 2024-12-12 13:43 | XMS_ITS | Encounter Summary ---
Author Organization [employer] Address [address] [place] [address] [place] [address] Care Team Providers Care Program Advocate Name Role Phone Aliza Paul DO Primary Care Provider [phone] Lesley Ingram Unavailable Unavailable Rosi Castro RN Unavailable [phone] Reason for Visit * Reason Comments Transition Of Care (Tcm) Encounter Details Date Type Department Care Team ([facility] st Contact Info) Description 12/06/2024 Patient Outreach [facility]INE 230 [place], [place] [phone] Aliza Paul DO [address] [place], [place] [phone] Transition Of Care (Tcm) Social History Tobacco Use Types Packs/Day Years [...] AM EDT documented as of this encounter Progress Notes * Gerry Jacob RN - 12/06/2024 8:51 AM EST 12/06/24 0852 Hospital Discharges and Admission for [facility] Type of Visit Emergency Department Date of Admission/Visit 12/05/24 (1:54 pm) Date of Discharge 12/05/24 (6:19 pm) Facility [facility] Diagnosis R shoulder pain L thumb pain Disposition Discharged Home * Cori Aly RN - 12/06/2024 8:51 AM EST Telephone call to pt to status check after ED visit and no show to hospital follow up visit that was scheduled for today 12/06/24. She stated she missed her appt today because my PT1 is out. Pt went to ED for left finger fracture. She reports her finger still hurts today, has splint on. Discussed ED discharge recommendations: to take tylenol PRN for pain, to ice (advised avoiding direct ice on skin), and to elevate the hand. Pt initially requested only to see PCP but did not want a morning appt, advised her Dr Villagomez does not have anything available in the afternoon. Pt then stated she was open to seeing another provider in the PM, placed pt on hold to reschedule hospital follow upappt, pt then hung up. Called pt back, rescheduled pt for 12/18/[address] Doyle, communications writer inquired about Quinonez catheter and asked if it was draining and if there are any issues, pt stated it's okay , no further details provided. Advised her of return precautions to ED for finger: if pain becomes unbearable, if she develops bad headache, nausea/vomiting. Discussed to return to ED if she develops any malfunction with Quinonez catheter, if it stops draining, if she notices blood in her urine, or if she develops a fever. Pt verbalized understanding, asked again about PT 1 and asked for it to go to [facility] at [address] as well. Discussed the importance per discharge papers to call [facility], offered contact info, pt stated (with raised voice) they already called this morning but I need PT1. Advised her message would be sent to staff member in this regard. Pt to call back PRN before appt. documented in this encounter Plan of Treatment Upcoming Encounters Date Type Department Care Team (Late st Contact Info) Description 12/18/2024 2:45 PM EST Office Visit [facility] [address] [place] [address] Gardenia Doyle MD [address] [place] [address] 02/08/2025 3:00 PM EDT Office Visit [facility] OPT[facility] [address] [place] [address] Kimberly Gonzalez OD [address] [place] [address] documented as of this encounter Visit Diagnoses Not on filedocumented in this encounter Additional Health Concerns Assessment Noted Time PHQ-9 Depression Total Score: 15 024 9:20 AM EDT documented as of this encounter Care Teams Program Advocate Relationship Specialty Start Date End Date Aliza Paul DO [address] [place] [address] PCP - General Family Medicine 02/23/12 Lesley Ingram Community Health Worker 05/17/24 Rosi Castro RN [address] [place] [address] Head Of Training And Development 05/17/24 [facility] Care 07/27/24 documented as of this encounter
--- OUTSIDE RECORDS SUMMARY | 2024-12-12 13:43 | XMS_ITS | Encounter Summary ---
Author Organization [employer] Address [address] [place] [address] 7 [place] [address] Care Team Providers Care Sales Operations Name Role Phone Aliza Paul DO Primary Care Provider [phone] Lesley Ingram Unavailable Unavailable Rosi Castro RN Unavailable [phone] Reason for Visit * Reason Comments Med Refill Encounter Details Date Type Department Care Team ([facility] st Contact Info) Description 10/19/2024 Refill [facility] MEDICINE [address] [place], [place] [phone] Aliza Paul DO 230 [place] [address] Other chronic pain Social History Tobacco Use [...] Description 12/18/2024 2:45 PM EST Office Visit [facility]INE [address] [place] [address] Gardenia Doyle MD [address] [place] [address] 02/08/2025 3:00 PM EDT Office Visit [facility] OPTOMETRY [address] [place] [address] Kimberly Gonzalez, RIYA [address] [place] [address] documented as of this encounter Visit Diagnoses Diagnosis Other chronic pain documented in this encounter Additional Health Concerns Assessment Noted Time PHQ-9 Depression Total Score: 15 024 9:20 AM EDT documented as of this encounter Care Teams Sales Operations Relationship Specialty Start Date End Date Aliza Paul DO [address] [place] [address] PCP - General Family Medicine 02/23/12 Lesley Ingram Community Health Worker 05/17/24 Rosi Castro RN [address] [place] [address] [place] [address] Correctional Facility Psychiatrist 05/17/24 [facility] 07/27/24 documented as of this encounter
--- OUTSIDE RECORDS SUMMARY | 2024-12-12 13:44 | XMS_ITS | Encounter Summary ---
Author Organization [employer] Address [address] [place] [address] 7 [place] [address] Care Team Providers Care Personalized Living Assistant Name Role Phone Aliza Paul DO Primary Care Provider [phone] Lesley Ingram Unavailable Unavailable Rosi Castro RN Unavailable [phone] Reason for Visit * Reason Comments Med Refill Encounter Details Date Type Department Care Team ([facility] st Contact Info) Description 10/29/2023 Refill [facility] [address] [place] [address] Aliza Paul DO [address] [place] [address] Social History Tobacco Use Types Packs/Day Years [...] Description 12/18/2024 2:45 PM EST Office Visit [facility] [address] [place] [address] Gardenia Doyle MD [address] [place] [address] 02/08/2025 3:00 PM EDT Office Visit [facility] OPTOMETRY [address] [place] [address] Kimberly Gonzalez OD [address] [place] [address] documented as of this encounter Visit Diagnoses Not on filedocumented in this encounter Care Teams Personalized Living Assistant Relationship Specialty Start Date End Date Aliza Paul DO [address] [place] [address] PCP - General Family Medicine 02/23/12 Lesley Ingram Community Health Worker 05/17/24 Rosi Castro RN [address] [place] [address] Doggy Daycare Activities Director 05/17/24 [facility] 07/27/24 documented as of this encounter
--- OUTSIDE RECORDS SUMMARY | 2024-12-12 13:44 | XMS_ITS | Encounter Summary ---
Author Organization [employer] Address [address] [place] [address] [place] [address] Care Team Providers Care Insurance Account Assistant Name Role Phone Aliza Paul DO Primary Care Provider [phone] Lesley Ingram Unavailable Unavailable Rosi Castro RN Unavailable [phone] Reason for Visit * Reason Onset Date Comments Durable Medical Equipment 01/13/2024 Encounter Details Date Type Department Care Team (Late st Contact Info) Description 01/13/2024 Telephone [facility]INE 230 [place], [place] [phone] Aliza Paul DO [address] [place] [address] Durable Medical Equipment Social History Tobacco Use [...] supplies. Pt is also requesting help with [employer] Orders . Please contact pt @ [phone] * Telephone Encounter - Jae Gambino - 01/13/2024 12:57 PM EST Tc from pt requesting an electrical wheel chair, states was advised they need an evaluation by physical therapist. Please contact at [phone] documented in this encounter Plan of Treatment Upcoming Encounters Date Type Department Care Team (Late st Contact Info) Description 12/18/2024 2:45 PM EST Office Visit [facility] [address] [place] [address] Gardenia Doyle MD [address] [place] [address] 02/08/2025 3:00 PM EDT Office Visit [facility] OPTOMETRY [address] [place] [address] Kimberly Gonzalez, OD [address] [place] [address] documented as of this encounter Visit Diagnoses Not on filedocumented in this encounter Care Teams Insurance Account Assistant Relationship Specialty Start Date End Date Aliza Paul DO 230 [place] [address] PCP - General Family Medicine 02/23/12 Lesley Ingram Community Health Worker 05/17/24 Rosi Castro RN [address] [place] [address] Bareback Rider 05/17/24 [facility] Care 07/27/24 documented as of this encounter
--- OUTSIDE RECORDS SUMMARY | 2024-12-12 13:44 | XMS_ITS | Encounter Summary ---
Author Organization [employer] Address [address] [place] [address] 7 [place] [address] Care Team Providers Care Senior Asic Engineer Name Role Phone Aliza Paul DO Primary Care Provider [phone] Lesley Ingram Unavailable Unavailable Rosi Castro RN Unavailable [phone] Reason for Visit * Reason Comments Med Refill Encounter Details Date Type Department Care Team ([facility] st Contact Info) Description 08/18/2024 Refill [facility] MED[facility]INE 230 [place], [place] [phone] Aliza Paul DO [address] [place] [address] Closed supracondylar fracture of right humerus with [...] Description 12/18/2024 2:45 PM EST Office Visit [facility]INE [address] [place] [address] Gardenia Doyle MD [address] [place] [address] 02/08/2025 3:00 PM EDT Office Visit [facility] OPTOMETRY [address] [place] [address] Kimberly Gonzalez OD [address] [place] [address] documented as of this encounter Visit Diagnoses Diagnosis Closed supracondylar fracture of right humerus with routine healing documented in this encounter Additional Health Concerns Assessment Noted Time PHQ-9 Depression Total Score: 4 03/09/20 24 9:14 AM EDT documented as of this encounter Care Teams Senior Asic Engineer Relationship Specialty Start Date End Date Aliza Paul DO [address] [place] [address] PCP - General Family Medicine 02/23/12 Lesley Ingram Community Health Worker 05/17/24 Rosi Castro RN [address] [place] [address] Oral And Maxillofacial Surgery 05/17/24 [facility] 07/27/24 documented as of this encounter
--- OUTSIDE RECORDS SUMMARY | 2024-12-12 13:44 | XMS_ITS | Encounter Summary ---
Author Organization [employer] Address [address] [place] [address] [place] [address] Care Team Providers Care Long Chain Dyeing Machine Operator Name Role Phone Aliza Paul DO Primary Care Provider [phone] Lesley Ingram Unavailable Unavailable Rosi Castro RN Unavailable [phone] Reason for Visit * Reason Comments Transition Of Care (Tcm) Encounter Details Date Type Department Care Team ([facility] st Contact Info) Description 12/11/2024 Patient Outreach [facility] MEDICINE 230 [place], [place] [phone] Aliza Paul DO [address] [place], [place] [phone] Transition Of Care (Tcm) Social History Tobacco [...] as of this encounter Progress Notes * Jamaica Christian RN - 12/11/2024 12:22 PM EST 12/11/24 1222 Hospital Discharges and Admission for [facility] Type of Visit Emergency Department Date of Admission/Visit 12/08/24 Date of Discharge 12/08/24 Facility [facility] Diagnosis COUGH,RECENT RSV DX PER EMS Disposition Discharged Home * Rakel Guerra RN - 12/11/2024 12:22 PM EST Transition of Care Note Cheryl is going through a recent transition of care. Hospital Discharges and Admission for [facility] Type of Visit: Emergency Department Date of Admission/Visit: 12/08/24 Date of Discharge: 12/08/24 Facility: [facility] Diagnosis: Acute Bronchitis Disposition: Discharged Home Follow-Up Actions Follow-Up Needed: None/self-monitoring Follow-Up Outcome: Spoke to Patient Initial Contact Date: 12/11/24 The full discharge summary is available on [facility]. Recent Visits Date Type Provider Dept 09/07/24 Office Visit Delmis Cat MD [facility] Medicine 05/23/24 Office Visit Aliza Paul DO [facility] 03/09/24 Office Visit Aliza Paul DO [facility] 10/22/23 Office Visit Aliza Paul DO [facility] Showing recent visits within past 540 days with a meds authorizing provider and meeting all other requirements Future Appointments Date Type Provider Dept 12/18/24 Appointment Gardenia Doyle MD [facility] Medicine Showing future appointments within next 150 days with a meds authorizing provider and meeting all other requirements TC placed to patient [phone] who confirms she p/u her medications that were Rx'd in the ED from the pharmacy and is taking them as prescribed. Patient reminded of upcoming appointment on 12/18/24and advised to call PT1 to schedule transportation. RN provided PT1 phone number to patient. Patient to f/u PRN. documented in this encounter Plan of Treatment Upcoming Encounters Date Type Department Care Team (Late st Contact Info) Description 12/18/2024 2:45 PM EST Office Visit [facility] MEDICINE [address] [place] [address] Gardenia Doyle MD [address] [place] [address] 02/08/2025 3:00 PM EDT Office Visit [facility] OPTOMETRY [address] [place] [address] Kimberly Gonzalez, OD [address] [place] [address] documented as of this encounter Visit Diagnoses Not on filedocumented in this encounter Additional Health Concerns Assessment Noted Time PHQ-9 Depression Total Score: 15 024 9:20 AM EDT documented as of this encounter Care Teams Long Chain Dyeing Machine Operator Relationship Specialty Start Date End Date Aliza Paul DO [address] [place] [address] PCP - General Family Medicine 02/23/12 Lesley Ingram Community Health Worker 05/17/24 Rosi Castro RN [address] [place] [address] Oven Press Tender 05/17/24 [facility] 07/27/24 documented as of this encounter
--- OUTSIDE RECORDS SUMMARY | 2024-12-12 13:44 | XMS_ITS | Encounter Summary ---
Author Organization [employer] Address [address] [place] [address] [place] [address] Care Team Providers Care Photographer'S Model Name Role Phone Aliza Paul DO Primary Care Provider [phone] Lesley Ingram Unavailable Unavailable Rosi Castro RN Unavailable [phone] Reason for Visit * Reason Onset Date Comments Nurse Triage 09/13/2024 Encounter Details Date Type Department Care Team ([facility] st Contact Info) Description 09/13/2024 Telephone [facility] 230 [place], [place] [phone] Aliza Paul DO [address] [place] [address] Nurse Triage Social History Tobacco Use Types [...] now. Pt is offered to come to [facility] which is open till 8pm today but, doesn't have transportation. Pt reports will come tomorrow to [facility] open 830am -400pm. Pt requests an uber ride for tomorrow. Uber is scheduled for 1155am pickle maker at Pt address for tomorrow. Pt is [...] Description 12/18/2024 2:45 PM EST Office Visit [facility] MEDICINE [address] [place] [address] Gardenia Doyle MD [address] [place] [address] 02/08/2025 3:00 PM EDT Office Visit [facility] OPTOMETRY [address] [place] [address] Kimberly Gonzalez OD [address] [place] [address] documented as of this encounter Visit Diagnoses Not on filedocumented in this encounter Additional Health Concerns Assessment Noted Time PHQ-9 Depression Total Score: 15 024 9:20 AM EDT documented as of this encounter Care Teams Photographer'S Model Relationship Specialty Start Date End Date Aliza Paul DO [address] [place] [address] PCP - General Family Medicine 02/23/12 Lesley Ingram Community Health Worker 05/17/24 Rosi Castro RN [address] [place] [address] Bag Bailer 05/17/24 [facility] 07/27/24 documented as of this encounter
--- OUTSIDE RECORDS SUMMARY | 2024-12-12 13:44 | XMS_ITS | Encounter Summary ---
Author Organization [employer] Address [address] [place] [address] [place] [address] Care Team Providers Care Seed Specialist Name Role Phone Aliza Paul DO Primary Care Provider [phone] Lesley Ingram Unavailable Unavailable Rosi Castro RN Unavailable [phone] Reason for Visit * Reason Onset Date Comments FYI 08/14/2024 Encounter Details Date Type Department Care Team ([facility] st Contact Info) Description 08/14/2024 Telephone [facility] MEDICINE 230 [place], [place] [phone] Aliza Paul DO [address] [place] [address] FYI Social History Tobacco Use Types Packs/Day [...] 10:28 AM EDT [facility] went to visit pt today to be able to change catheter. But when she arrived pt was being put in the ambulance and was going to be transported to [facility] [place] [facility]ness [place] breath. documented in this encounter Plan of Treatment Upcoming Encounters Date Type Department Care Team (Late st Contact Info) Description 12/18/2024 2:45 PM EST Office Visit [facility] MEDICINE [address] [place] [address] Gardenia Doyle MD [address] [place] [address] 02/08/2025 3:00 PM EDT Office Visit [facility] OPTOMETRY [address] [place] [address] Kimberly Gonzalez OD [address] [place] [address] documented as of this encounter Visit Diagnoses Not on filedocumented in this encounter Additional Health Concerns Assessment Noted Time PHQ-9 Depression Total Score: 4 03/09/20 9:14 AM EDT documented as of this encounter Care Teams Seed Specialist Relationship Specialty Start Date End Date Aliza Paul DO [address] [place] [address] PCP - General Family Medicine 02/23/12 Lesley Ingram Community Health Worker 05/17/24 Rosi Castro RN [address] [place] [address] Platform Supervisor 05/17/24 [facility] 07/27/24 documented as of this encounter
--- OUTSIDE RECORDS SUMMARY | 2024-12-12 13:44 | XMS_ITS | Encounter Summary ---
Author Organization [employer] Address [address] [place] [address] 7 [place] [address] Care Team Providers Care Barrel Turner Name Role Phone Aliza Paul DO Primary Care Provider [phone] Lesley Ingram Unavailable Unavailable Rosi Castro RN Unavailable [phone] Reason for Visit * Reason Onset Date Comments Med Refill 12/11/2024 Encounter Details Date Type Department Care Team (Late st Contact Info) Description 12/11/2024 Refill [facility] [address] [place], [place] [phone] Aliza Paul DO [address] [place] [address] Closed supracondylar fracture of right humerus with [...] Miscellaneous Notes * Telephone Encounter - Aliza Charles LPN - 12/11/2024 9:30 AM EST PCP out. Next appointment 12/18/24. * Telephone Encounter - Tye Dowling - 12/11/2024 8:58 AM EST TC from pt requesting medication refill. Medications needing refill : naproxen (Naprosyn) 500 MG tablet To be sent to: [facility] [place] - [address] documented in this encounter Plan of Treatment Upcoming Encounters Date Type Department Care Team (Late st Contact Info) Description 12/18/2024 2:45 PM EST Office Visit [facility] [address] [place] [address] Gardenia Doyle MD [address] [place] [address] 02/08/2025 3:00 PM EDT Office Visit [facility] OPTOMETRY [address] [place] [address] Kimberly Gonzalez, OD [address] [place] [address] documented as of this encounter Visit Diagnoses Diagnosis Closed supracondylar fracture of right humerus with routine healing documented in this encounter Additional Health Concerns Assessment Noted Time PHQ-9 Depression Total Score: 15 024 9:20 AM EDT documented as of this encounter Care Teams Barrel Turner Relationship Specialty Start Date End Date Aliza Paul DO [address] [place] [address] PCP - General Family Medicine 02/23/12 Lesley Ingram Community Health Worker 05/17/24 Rosi Castro, RICHARDSON [address] [place] [address] Military Professional 05/17/24 [facility] 07/27/24 documented as of this encounter
--- OUTSIDE RECORDS SUMMARY | 2024-12-12 13:44 | XMS_ITS | Encounter Summary ---
Author Organization [employer] Address [address] [place] [address] [address] [place] [address] Care Team Providers Care Optical Engineer Name Role Phone Aliza Paul DO Primary Care Provider [phone] Lesley Ingram Unavailable Unavailable Rosi Castro RN Unavailable [phone] Reason for Visit * Reason Comments Med Refill Encounter Details Date Type Department Care Team ([facility] st Contact Info) Description 09/29/2024 Refill [facility] MED[facility]INE [address] [place], [place] [phone] Aliza Paul DO [address] [place] [address] Closed supracondylar fracture of right humerus with [...] 12/18/2024 2:45 PM EST Office Visit [facility] MED[facility]INE [address] [place] [address] Gardenia Doyle MD [address] [place] [address] 02/08/2025 3:00 PM EDT Office Visit [facility] OPTOMETRY [address] [place] [address] Kimberly Gonzalez OD [address] [place] [address] documented as of this encounter Visit Diagnoses Diagnosis Closed supracondylar fracture of right humerus with routine healing Muscle spasm Spasm of muscle documented in this encounter Additional Health Concerns Assessment Noted Time PHQ-9 Depression Total Score: 15 024 9:20 AM EDT documented as of this encounter Care Teams Optical Engineer Relationship Specialty Start Date End Date Aliza Paul DO [address] [place] [address] PCP - General Family Medicine 02/23/12 Lesley Ingram Health Worker 05/17/24 Rosi Castro RN [address] [place] [id number] Web Administrator 05/17/24 [facility] 07/27/24 documented as of this encounter
--- OUTSIDE RECORDS SUMMARY | 2024-12-12 13:44 | XMS_ITS | Clinical Summary ---
Author Organization [employer] Address [address] [place] [address] 7[address] [place] [address] Care Team Providers Care Makeup Instructor Name Role Phone BeverlyAliza Primary Care Provider [phone] Lesley Ingram Unavailable Unavailable Rosi Castro RN Unavailable [phone] Allergies No known active allergies Medications [...] Active Blood Pressure Monitoring (Blood Pressure Cuff) [facility] Use daily as prescribed 1 [...] DAILY 270 capsule 3 10/09/20 24 Active ARIPiprazole (Abilify) 2 MG tablet [...] SHORTNESS OF BREATH/WHEEZI NG 11/25/19 25 Active naproxen (Naprosyn) 500 MG tabletIndication s:Closed supracondylar fracture of right humerus with routine healing TAKE ONE TABLET TWICE DAILY IN THE MORNING AND AT BEDTIME WITH FOOD NEEDED FOR PAIN 30 tablet 12/11/19 25 Active Ascorbic Acid (vitamin C) 500 MG tablet Take 500 mg by mouth in the morning. 09/09/20 22 2024 Discontinued(M ed list cleanup (will not trigger notification to Pharmacy)) naproxen (Naprosyn) 500 MG tabletIndication s:Closed supracondylar fracture of right humerus with routine healing TAKE ONE TABLET TWICE DAILY IN THE MORNING AND AT BEDTIME WITH FOOD NEEDED FOR PAIN 30 tablet 10/24/20 24 2024 Discontinued(R eorder (will not trigger notification to Pharmacy)) Active Problems Problem Noted Date Diagnosed Date Thyrotoxicosis with thyrotoxic crisis 09/07/2024 Assessment & Plan (09/07/2024 10:07 PM EDT): On propranolol + Methimazole, fu by [facility] endocrinology. We'll get OV notes sp hospital [...] MH services received in the past with [facility], currently she's not satisfied with [facility]. Pt opted for same-day appointments with [facility] [...] intervention , Patient to reach out to [facility] team as needed, and Patient to reach out to [facility] as needed Pt prefers to be self-referred for OP individual therapy and psychiatry to the [facility] programs. Pt was offered external referral; clinician informed about wait times and options to receive MH services through [facility] intake. Assessment & Plan (03/09/2024 3:06 PM [...] no appointment has been made. Currently under [facility] care to assist with SDOH needs. Lack [...] leading to an increase of her anxiety. services received in the past with [facility], currently she's not satisfied with [facility]. Pt opted for same-day appointments with [facility] [...] intervention , Patient to reach out to [facility] team as needed, and Patient to reach out to [facility] as needed Pt prefers to be self-referred for OP individual therapy and psychiatry to the [facility] programs. Pt was offered external referral; clinician informed about wait times and options to receive MH services through [facility] intake. Assessment & Plan (10/26/2023 10:38 AM EST): PLAN: Continue with current services (defined as services in the past 12 months) , Behavioral Health Integration Plan Patient Self Plan Patient to reach out to [facility] team as needed, Patient to engage in OP therapy , and Patient to follow-up with external team, clinician to reach our to current therapist for Cheryl at [facility] to support process of reconnecting with psych [...] stroke in 05/2024). Pt was self-referred to [facility] programs, but reports no appointment has been made. Currently under /[facility] care to assist with SDOH needs. Lack [...] MH services received in the past with [facility], currently she's not satisfied with [facility]. Pt opted for same-day appointments with [facility] (information given. Cheryl screened positive for SDOH [...] intervention , Patient to reach out to [facility] team as needed, and Patient to reach out to [facility] as needed Pt prefers to be self-referred for OP individual therapy and psychiatry to the [facility] programs. Pt was offered external referral; clinician informed about wait times and options to receive MH services through [facility] intake. Resolved Problems Problem Noted Date Diagnosed [...] 10:16 AM EST): Wants to fu with [facility] Dr Jj instead of [facility], referral sent. Continue OT by [facility], needs evaluation for mobility and independence. Ibuprofen 800 mg bid +lidocaine patch. Can use diclofenac gel Prn FU w PCP Assessment & Plan (10/29/2022 2:51 PM EST): FU with [facility] next week Continue on the sling Rx [...] 11/27/2022 Steatosis of liver 04/09/2016 3 Encounters Date Type Department Care Team Description 12/11/2024 Patient Outreach [facility] [address] [place] [phone] Aliza Paul DO Transition Of Care (Tcm) 12/11/2024 Patient Outreach [facility] [address] [place] [phone] Aliza Paul DO Care Coordination ([facility] outreach for SDOH PT-1 and food needs-referral completed /) 12/11/2024 Refill [facility] [address] [place] [address] Aliza Paul DO Closed supracondylar fracture of right humerus with routine healing 12/11/[address] [phone] Aliza Paul DO PT-1 12/08/2024 Orders Only GENERIC EXTERNAL DATA DEPARTMENT Provider, Generic External Data 12/06/2024 Telephone [facility] [address] [facility] [place] [address] Aliza Paul, No Show 12/06/2024 Telephone [facility] [address] [facility] [place] [address] Aliza Paul, 180 Medical (Lube steril packets, straight tip urinary catheter, covarrubias latex catheter, bedside bags, insertion trays) 12/06/2024 Patient Outreach [facility] [address] [place] [phone] Aliza Paul, Transition Of Care (Tcm) 11/28/2024 Patient Outreach [address] [address] Aliza Paul DO Transition Of Care (Tcm) ([facility]- [facility] unable to complete. ) 11/23/2024 Orders Only GENERIC EXTERNAL DATA DEPARTMENT Provider, Generic External Data 11/20/2024 Telephone [facility] [address] [place] [phone] Aliza Paul DO Nurse Triage 11/17/2024 Telephone [facility] [address] [place] [address], [place] [address] Aliza Paul DO Nurse Triage 11/07/[address] [address] Aliza Paul DO 11/06/2024 Telephone [facility] [address] [place] [phone] Aliza Paul DO Referral 11/02/2024 Refill [facility] [address] [place] [address], [place] [address] Delmis Cat MD 11/02/2024 Patient Outreach [facility] [address] [place] [phone] Nerissa Robertson, tower excavator operator Of Care (Tcm) 10/31/2024 Orders Only GENERIC EXTERNAL DATA DEPARTMENT Provider, Generic External Data 10/26/2024 Telephone [facility] [address] [place] [address] Aliza Paul DO Nurse Triage 10/23/2024 Refill [facility] [address] [facility] [address] Aliza Paul DO Closed supracondylar fracture of right humerus with routine healing 10/19/2024 Patient Outreach [facility] [address] [facility] [place] [address] Aliza Paul DO Care Coordination (CHW outreach for SDOH PT-1 and food needs-referral completed /) 10/19/2024 Telephone [facility] [address] [place] [address] Aliza Paul DO PT-1 10/19/2024 Refill [facility] [address] [facility] [place] [address] Aliza Paul DO Other chronic pain 10/18/2024 Telephone [facility] [address] [facility] [place] [address] Talya Scherer, PharmD 10/17/2024 Telephone [facility] [address] [facility] [place] [address] Aliza Paul DO FYI 10/13/2024 Telephone [facility] [address] [facility] [place] [address] Aliza Paul DO Medication Question 10/07/2024 Refill [facility] [address] [facility] [place] [address] Aliza Paul DO 10/03/2024 Refill [facility] [address] [facility] [place] [address] Rakel Guerra, RN 10/03/2024 Telephone [facility] [address] [facility] [place] [address] Aliza Paul, No Show 10/02/2024 Refill [facility] [address] [facility] [place] [address] Aliza Paul DO Closed supracondylar fracture of right humerus with routine healing 09/29/2024 Travel 09/29/2024 Patient Outreach [address] [address] Aliza Paul DO Care Coordination ([facility]/W Lesley Ingram, program graduation) 09/29/[address] [address] Aliza Paul DO Closed supracondylar fracture of right humerus with routine healing; Muscle spasm 09/28/[address] [address] Aliza Paul DO Medication Question 09/27/[address] [address] Aliza Paul DO Nurse Triage 09/27/[address] [address] Aliza Paul DO Muscle spasm 09/26/[address] [address] Rocio Ingram, RN Care Management ([facility]- f/u call) 09/22/2024 Travel 09/20/[address] [address] Aliza Paul DO FYI 09/15/2024 Patient Outreach [address] [address] Aliza Paul DO SDOH Concerns ([facility]/W SAYRA AlvaradoOH f/u call ) 09/15/[address] [address] Rocio Ingram, RN Care Management ([facility]- f/u call) 09/14/2024 Refill [facility] [address] [place] [address] [phone] Aliza Paul DO Anxiety disorder, unspecified type; Closed supracondylar fracture of right humerus with routine healing 09/13/[address] [address] Aliza Paul DO Nurse Triage 09/12/2024 Telephone [facility] [address] [place] [address] Angelica Mendoza RN Results 09/12/2024 Orders Only [facility] [address] [place] [address] Delmis Cat MD 09/11/2024 Telephone [facility] [address] [place], [place] [phone] Aliza Paul DO from Last 3 Months Immunizations Name Administration [...] your housing situation today? I have enzo tamra 03/09/[address] you li [...] Description 12/18/2024 2:45 PM EST Office Visit [facility] [address] [place] [address] Gardenia Doyle MD [address] [place] [address] 02/08/2025 3:00 PM EDT Office Visit [facility] [address] [place] [address] Kimberly Gonzalez OD [address] [place] [address] Health Maintenance Due Date Last Done Comments [...] 2 - PCV) 12/16/2022 12/16/2021 COVID-19 Vaccine ( - season) 2024 10/17/2022, 10/17/2022 Influenza Vaccine [...] TROPONIN I Routine 12/08/2024 11:48 AM EST B TYPE NATRIURETIC PEPTIDE (BNP) Routine 12/08/2024 11:48 AM EST MAGNESIUM Routine 12/08/2024 11:48 AM EST BASIC METABOLIC PANEL Routine 12/08/2024 11:48 AM EST HEPATIC FUNCTION PANEL Routine 12/08/2024 11:48 AM EST CBC WITH AUTO DIFFERENTIAL Routine 12/08/2024 11:48 AM EST SARS COV2/INFLUENZA A/B AND RSV RNA QL NAAT Routine 12/08/2024 11:39 AM EST XR CHEST 1 VIEW Routine 12/08/2024 11:25 AM EST CULTURE, URINE, ROUTINE Routine 12/08/2024 12:[address] CERVICAL SPINE WO CONTRAST [...] URINE, ROUTINE Routine 10/31/2024 12:00 AM EST ZZZ HISTORICAL HEPATITIS C AB W/REFL TO [...] Relevant to Health Maintenance Results * (ABNORMAL) Urinalysis, Complete, with Reflex to Culture (12/08/2024 1:37 PM EST) Only the most recent of3 resultswithin the time period is included. Color Urine Yellow [facility] Appearance Urine Turbid [facility] PH >=9.0 5.0 - 9.0 [facility] Glucose Urine UA Negative Negative mg/dL [facility] Urine Blood Large (3+)(A) Negative [facility] Specific [place] - Urine 1.020 1.005 - 1.025 [facility] Urine Protein 100 (2+)(A) Neg-Trace mg/dL [facility] Urine Ketones Negative Negative mg/dL [facility] Nitrite Urine Negative Negative [facility] Leukocyte Esterase Urine Moderate (2+)(A) Negative [facility] RBC Urine 11-20(A) 0 - 2 /HPF [facility] Urine WBC 6-10 0 - 5 /HPF [facility] Urine Squamous Epithelial Cell 3-5 0 - 2 /HPF [facility] Other Crystals Urine Present [facility] Comment:TRIPLE PHOSPHATE NOT ED Urine Bacteria 2+ None Seen [facility] Hyaline Casts, Urine 0-2 0 - 2 /LPF [facility] 12/08/2024 1:37 PM EST 12/08/2024 1:40 PM EST Narrative [facility] - 12/08/2024 2:03 PM EST [id number], [place] us Generic External Data Provider LAB URINE ORDERAB LES Final Result Performing Organization Address [facility] de Phone Number [facility] [address] [place] [phone] * High Sensitivity Troponin I (12/08/2024 11:48 AM EST) TROPONIN I HIGH SENSITIVITY 4.4 <3.5 - 17.0 ng/L [facility] Comment:The [place] high sens itivity Troponin-I results should beused in conjunction with other diagnostic information suchas ECG, clinical observations and information, and patientsymptoms to aid in the diagnosis of ME. 12/08/2024 11:4 8 AM EST 12/08/2024 11:50 AM EST us Generic External Data Provider LAB BLOOD ORDERAB LES Final Result Performing Organization Address [facility] Co de Phone Number [facility] [address] [place] [phone] * (ABNORMAL) CBC auto differential (12/08/2024 11:48 AM EST) White Blood Count 10.6 4.8 - 10.8 X10*3/uL [facility] Red Blood Count 5.36 4.20 - 5.50 X10*6/uL [facility] Hemoglobin 14.3 12.0 - 16.0 g/dl [facility] Hematocrit 42.6 37.0 - 47.0 % [facility] Mean Corpuscular Volume 79.5(L) 80.0 - 98.0 fL [facility] Mean Corpuscular Hemoglobin 26.7(L) 27.0 - 33.0 pg [facility] Mean Corpuscular HGB Conc 33.6 31.0 - 35.0 g/dl [facility] Red Cell Distribution Width 13.5 11.0 - 16.0 % [facility] Platelet Count 341 160 - 400 X10*3/uL [facility] Mean Platelet Volume 9.3(L) 9.4 - 12.3 fL [facility] Neutrophils Percent Auto 60.2 45 - 73 % [facility] Imm Gran Pct Auto 0.3 0.0 - 0.4 % [facility] Lymphocytes Percent Auto 28.0 20 - 40 % [facility] Monocytes Percent Auto 7.3 2 - 11 % [facility] Eosinophils Percent Auto 3.5 0 - 4 % [facility] Basophils Percent Auto 0.7 0 - 2 % [facility] NRBC Pct Auto 0.0 0.0 - 0.2 /100WBC [facility] Neutrophils Absolute Auto 6.4 2.0 - 8.3 x10*3/uL [facility] Imm Gran Abs Auto 0.03 0.00 - 0.03 X10*3/uL [facility] Lymphocytes Absolute Auto 3.0 1.2 - 4.9 X10*3/uL [facility] Monocytes Absolute Auto 0.8 0.1 - 1.2 X10*3/uL [facility] Eosinophils Absolute Auto 0.4 0.0 - 0.4 X10*3/uL [facility] Basophils Absolute Auto 0.1 0.0 - 0.2 X10*3/uL [facility] NRBC Abs Auto 0.000 0.0 - 0.012 X10*3/uL [facility] 12/08/2024 11:4 8 AM EST 12/08/2024 11:50 AM EST us Generic External Data Provider LAB BLOOD ORDERAB LES Final Result Performing Organization Address City/[facility] Co de Phone Number [facility] [address] [place] [phone] * (ABNORMAL) B Type Natriuretic Peptide (BNP) (12/08/2024 11:48 AM EST) Pathologist [facility] B Type Natriuretic Peptide 107(H) <100 pg/mL [facility] Comment:For those patients w ho are being treated with Natrecor(nesiritide, recombinant BNP), BNP testing should beperformed at least two hours post treatment in order toensure that only endogenous levels of BNP are detected. 12/08/2024 11:4 8 AM EST 12/08/2024 11:50 AM EST us Generic External Data Provider LAB BLOOD ORDERAB LES Final Result Performing Organization Address [facility] Co de Phone Number [facility] [address] [place] [phone] * Magnesium (12/08/2024 11:48 AM EST) Pathologist [facility] Magnesium 1.8 1.6 - 2.6 mg/dL [facility] 12/08/2024 11:4 8 AM EST 12/08/2024 11:50 AM EST us Generic External Data Provider LAB BLOOD ORDERAB LES Final Result Performing Organization Address City/[facility]/ZIP Co de Phone Number [facility] [address] [place] [phone] * Hepatic Function Panel (12/08/2024 11:48 AM EST) Pathologist [facility] Bilirubin, Total 0.5 0.0 - 1.0 mg/dL [facility] Bilirubin, Direct 0.2 0.0 - 0.5 mg/dL [facility] Aspartate Amino Transferase 12 5 - 31 U/L [facility] Alanine Aminotransferase 12 0 - 31 U/L [facility] Total Protein 7.2 6.5 - 8.0 g/dL [facility] Albumin Level 3.8 3.5 - 5.0 g/dL [facility] Alkaline Phosphatase 84 39 - 117 U/L [facility] 12/08/2024 11:4 8 AM EST 12/08/2024 11:50 AM EST Generic External Data Provider LAB BLOOD ORDERAB LES Final Result [facility] [address] [place] [phone] * (ABNORMAL) Basic Metabolic Panel (12/08/2024 11:48 AM EST) [facility] Sodium 142 135 - 145 mmol/L [facility] Potassium 3.4 3.3 - 5.1 mmol/L [facility] Chloride 110(H) 96 - 108 mmol/L [facility] Carbon Dioxide 24 22 - 29 mmol/L [facility] Anion Gap 11(L) 12 - 20 [facility] Urea Nitrogen (BUN) 15 9 - 16 mg/dL [facility] Creatinine, Serum 0.70 0.5 - 1.4 mg/dL [facility] Creatinine Clr Calc Pharmacy 89.2 [facility] Comment:Provided height and weight: 160.02 cm,84.6 kg.eGFR (calculated from the MDRD study equation) and eCrCl(calculated from the Cockcroft-Gault equation) are based ondifferent parameters and may not yield comparable results.If eCrCl result is absurd, please check patient'sheight/weight. Estimated Glomerular Filt Rate >60 [facility] Comment:Chronic Kidney Disea se: Estimated GFR < 60 mL/min/1.98t4Hwzqbv Kidney Disease: Estimated GFR < 15 mL/min/1.73m2 Glucose 104 60 - 115 mg/dL [facility] Calcium 9.9 8.4 - 10.2 mg/dL [facility] 12/08/2024 11:4 8 AM EST 12/08/2024 11:50 AM EST Generic External Data Provider LAB BLOOD ORDERAB LES Final Result [facility] [address] [place] [phone] * (ABNORMAL) SARS-CoV-2 RNA, Influenza A/B, and RSV RNA, Ql NAAT (12/08/2024 11:39 AM EST) Influenza A PCR NEGATIVE Negative [facility] Influenza B PCR NEGATIVE Negative [facility] Resp Syncy Virus RNA Qual PCR POSITIVE(A) Negative [facility] SARS COV2 PCR NEGATIVE Negative [facility] Comment:All test results mus [...] use by authorized laboratories.Testing performed on the Do[employer] GeneXpert utilizingreal-time RT-PCR.All SARS CoV2 and positive influenza A/B results arereported to [facility]. 12/08/2024 11:3 9 AM EST 12/08/2024 11:50 AM EST us Generic External Data Provider LAB MICROBIOLOGY - GENERAL ORDERABLES Final Result [facility] [address] [place] [phone] * XR Chest 1 View (12/08/2024 11:25 AM EST) Anatomical Region Laterality Modality Chest Radiographic Nidia ging 12/08/2024 11:2 5 AM EST Narrative 12/08/2024 12:08 PM EST ? [facility] ?[address] ?[place] [address] ?XRay Report ? Signed ? Patient: Didato,Cheryl A ?MR#: [id number] ?? 0 ? : 1965 ?Acct:[id number] ? Age/Sex: 59 / F ?ADM Date: 12/08/24 ? Loc: HO.ED ? Attending Dr: ? Ordering Physician: Suzy Frye DO ?? Date of Service: 12/08/24 ?? Procedure(s): XR chest 1V ?? Accession Number(s): [id number] ? cc: Suzy Frye DO; Aliza Paul [...] DD/ 1125 ? TD/TT: 12/08/24 1155 ? Structural Engineering Technician: ? Procedure Note Dev, Image - 12/08/[address] [address] XRay Report Signed Patient: Cheryl Garcia AMR#: [id number] 0 : 1965Acct:[id number] Age/Sex: 59 / FADM Date: 12/08/24 Loc: HO.ED Attending Dr: Ordering Physician: Suzy Frye DO Date of Service: 12/08/24 Procedure(s): XR chest 1V Accession Number(s): [id number] cc: Suzy Frye DO; Aliza Paul DO [...] Ulises Mir MD 12/08/2024 12:05 PM EST Dictated By: Ulises Mir MD Signed By: <Electronically signed by Ulises Mir MD in OV> 12/08/24 1205 DD/ 1125 TD/TT: 12/08/24 1155 Structural Engineering Technician: [facility] External Provider IMG XR PROCEDURES Final Result * Culture, Urine, Routine (12/08/2024 12:00 AM EST) Only the most recent of2 resultswithin the time period is included. Urine Urine specimen obtained by clean catch procedure / Unknown 12/08/2024 12/08/2024 Comment:[facility] Narrative [facility] - 12/11/2024 8:27 AM EST Proteus mirabilis Quant > 100,000 cfu/mL Proteus mirabilis: Ampicillin <=2(S) Proteus mirabilis: Cefazolin (Urine) 4(S) Proteus mirabilis: Cefepime <=0.12(S) Proteus mirabilis: Ceftriaxone <=0.25(S) Proteus mirabilis: Ciprofloxacin <=0.06(S) Proteus mirabilis: Gentamicin <=1(S) Proteus mirabilis: Nitrofurantoin 256(R) Proteus mirabilis: Trimethoprim/Sulfamethoxazole <=20(S) Specimen Source: Urine clean catch us Generic External Data Provider LAB MICROBIOLOGY - GENERAL ORDERABLES Final Result [facility] [address] [place] [address] [phone] * CT Cervical Spine w/o Contrast (12/05/2024 3:18 PM EST) Anatomical Region Laterality Modality Spine, C-spine Computed Tomogra phy 12/05/2024 3:18 PM EST Narrative 12/05/2024 4:44 PM EST ? [facility] ?[address] ?[place] [address] ? CT Scan Report ? Signed ? Patient: Cheryl Garcia ?MR#: [id number] ?? 0 ? : 1965 ?Acct:[id number] ? Age/Sex: 59 / F ?ADM Date: 12/05/24 ? Loc: HO.ED ? Attending Dr: ? Ordering Physician: Candice Hastings ?? Date of Service: 12/05/24 ?? Procedure(s): CT cervical spine wo IV con ?? Accession Number(s): [id number] ? cc: Aliza Paul DO; Candice Hastings ? Report Number: ?? [id number]: Total DLP = 1124.00 mGy-cm ?? EXAMINATION: [...] Valverde MD ??12/05/2024 04:41 PM EST RP ? Dictated By: ?Demetrio Valverde MD ? Signed By: ?<Electronically signed by Demetrio Valverde MD in OV> ?12/05/24 1641 ? DD/ 1518 ? TD/TT: 12/05/24 1544 ? Structural Engineering Technician: ? Procedure Note Dev, Image - 12/05/[address] [address] CT Scan Report Signed Patient: Cheryl Garcia AMR#: [id number] 0 : 1965Acct:[id number] Age/Sex: 59 / FADM Date: 12/05/24 Loc: HO.ED Attending Dr: Ordering Physician: Candice Hastings Date of Service: 12/05/24 Procedure(s): CT cervical spine wo IV con Accession Number(s): [id number] cc: Aliza Paul DO; Candice Hastings Report Number: [id number]: Total DLP = 1124.00 mGy-cm EXAMINATION: CT [...] by: Demetrio Valverde MD 12/05/2024 04:41 PM EST RP Dictated By: Demetrio Valverde MD Signed By: <Electronically signed by Demetrio Valverde MD in OV> 12/05/24 1641 DD/ 1518 TD/TT: 12/05/24 1544 Structural Engineering Technician: [facility] External Provider IMG CT PROCEDURES Final Result * XR Ribs 3 Views Right with Chest 1 View (12/05/2024 2:03 PM EST) Anatomical Region Laterality Modality Radiographic Nidia ging 12/05/2024 2:03 PM EST Narrative 12/05/2024 3:22 PM EST ? [facility] ?[address] ?[place] [address] ?XRay Report ? Signed ? Patient: Cheryl Garcia A ?MR#: [id number] ?? 0 ? : 1965 ?Acct:[id number] ? Age/Sex: 59 / F ?ADM Date: 12/05/24 ? Loc: HO.ED ? Attending Dr: ? Ordering Physician: Candice Hastings ?? Date of Service: 12/05/24 ?? Procedure(s): XR ribs RT min 3V w CXR1V ?? Accession Number(s): [id number] ? cc: Aliza Paul DO; Candice Hastings [...] DD/ 1403 ? TD/TT: 12/05/24 1450 ? Structural Engineering Technician: ? Procedure Note Donotuseinterpreter, Image - 12/05/2024 [place] [address] XRay Report Signed Patient: Cheryl Garcia AMR#: [id number] 0 : 1965Acct:[id number] Age/Sex: 59 / FADM Date: 12/05/24 Loc: HO.ED Attending Dr: Ordering Physician: Candice Hastings Date of Service: 12/05/24 Procedure(s): XR ribs RT min 3V w CXR1V Accession Number(s): [id number] cc: Aliza Paul DO; Candice Hastings EXAMINATION: [...] Demetrio Valverde MD 12/05/2024 03:19 PM EST RP Dictated By: Demetrio Valverde MD Signed By: <Electronically signed by Demetrio Valverde MD in OV> 12/05/24 1519 DD/ 1403 TD/TT: 12/05/24 1450 Structural Engineering Technician: us [facility] External Provider IMG XR PROCEDURES Final Result * CT Head w/o Contrast (12/05/2024 2:03 PM EST) Anatomical Region Laterality Modality Head, Neck Computed Tomogra phy 12/05/2024 2:03 PM EST Narrative 12/05/2024 4:36 PM EST ? [facility] ?[address] ?[place] [address] ? CT Scan Report ? Signed ? Patient: Cheryl Garcia A ?MR#: [id number] ?? 0 ? : 1965 ?Acct:[id number] ? Age/Sex: 59 / F ?ADM Date: 12/05/24 ? Loc: HO.ED ? Attending Dr: ? Ordering Physician: Candice Hastings ?? Date of Service: 12/05/24 ?? Procedure(s): CT head/brain wo IV con ?? Accession Number(s): [id number] ? cc: Aliza Paul DO; Candice Hastings ? Report Number: ?? [id number]: Total DLP = ?0.00 mGy-cm ?? EXAMINATION: [...] Valverde MD ??12/05/2024 04:34 PM EST RP ?? Workstation: [id number] ? Dictated By: ?Demetrio Valverde MD ? Signed By: ?<Electronically signed by Demetrio Valverde MD in OV> ?12/05/24 1634 ? DD/ 1403 ? TD/TT: 12/05/24 1544 ? Structural Engineering Technician: ? Procedure Note Rian Méndez - 12/05/[address] [address] [address] Scan Report Signed Patient: Cheryl Garcia [facility]#: [id number] 0 : 1965Acct:[id number] Age/Sex: 59 / FADM Date: 12/05/24 Loc: HO.ED Attending Dr: Ordering Physician: Candice Hastings Date of Service: 12/05/24 Procedure(s): CT head/brain wo IV con Accession Number(s): [id number] cc: Aliza Paul DO; Candice Hastings Report Number: [id number]: Total DLP = 0.00 mGy-cm EXAMINATION: CT [...] by: Demetrio Valverde MD 12/05/2024 04:34 PM [facility] Dictated By: Demetrio Valverde MD Signed By: <Electronically signed by Demetrio Valverde MD in OV> 12/05/24 1634 DD/ 1403 TD/TT: 12/05/24 1544 Structural Engineering Technician: [facility] External Provider IMG CT PROCEDURES Final Result * XR Hand 3+ Views Left (12/05/2024 2:03 PM EST) Anatomical Region Laterality Modality Upper Extremities, Hand Left Radiogra phic Imaging 12/05/2024 2:03 PM EST Narrative 12/05/2024 3:18 PM EST ? [facility] ?[address] ?[place] [address] ?XRay Report ? Signed ? Patient: Didato,Cheryl A ?MR#: [id number] ?? 0 ? : 1965 ?Acct:[id number] ? Age/Sex: 59 / F ?ADM Date: 12/05/24 ? Loc: HO.ED ? Attending Dr: ? Ordering Physician: Candice Hastings ?? Date of Service: 12/05/24 ?? Procedure(s): XR hand LT min 3V ?? Accession Number(s): [id number] ? cc: Aliza Palu DO; Candice Hastings ? EXAMINATION: ?? XR [...] DD/ 1403 ? TD/TT: 12/05/24 1450 ? Structural Engineering Technician: ? Procedure Note Donotuseinterpreter, Image - 12/05/2024 [place] [address] XRay Report Signed Patient: Cheryl Garcia AMR#: [id number] 0 : 1965Acct:[id number] Age/Sex: 59 / FADM Date: 12/05/24 Loc: HO.ED Attending Dr: Ordering Physician: Candice Hastings Date of Service: 12/05/24 Procedure(s): XR hand LT min 3V Accession Number(s): [id number] cc: Aliza Paul DO; Candice Hastings EXAMINATION: [...] Demetrio Valverde MD 12/05/2024 03:15 PM EST RP Dictated By: Demetrio Valverde MD Signed By: <Electronically signed by Demetrio Valverde MD in OV> 12/05/24 1515 DD/ 1403 TD/TT: 12/05/24 1450 Structural Engineering Technician: [facility] External Provider IMG XR PROCEDURES Final Result * XR Shoulder 2+ Views Right (12/05/2024 2:03 PM EST) Anatomical Region Laterality Modality Upper Extremities, Shoulder Right Radi ographic Imaging 12/05/2024 2:03 PM EST Narrative 12/05/2024 3:24 PM EST ? [facility] ?[address] ?[place] [address] ?XRay Report ? Signed ? Patient: Didato,Cheryl A ?MR#: [id number] ?? 0 ? : 1965 ?Acct:[id number] ? Age/Sex: 59 / F ?ADM Date: 12/05/24 ? Loc: HO.ED ? Attending Dr: ? Ordering Physician: Candice Hastings ?? Date of Service: 12/05/24 ?? Procedure(s): XR shoulder RT min 2V ?? Accession Number(s): [id number] ? cc: Aliza Paul DO; Candice Hastings [...] Valverde MD ??12/05/2024 03:21 PM EST RP ?? Workstation: [id number] ? Dictated By: ?Demetrio Valverde MD ? Signed By: ?<Electronically signed by Demetrio Valverde MD in OV> ?12/05/24 1521 ? DD/ 1403 ? TD/TT: 12/05/24 1450 ? Structural Engineering Technician: ? Procedure Note Donotraginiinterpreter, Image - 12/05/[address] [address] XRay Report Signed Patient: Cheryl Garcia AMR#: [id number] 0 : 1965Acct:[id number] Age/Sex: 59 / FADM Date: 12/05/24 Loc: HO.ED Attending Dr: Ordering Physician: Candice Hastings Date of Service: 12/05/24 Procedure(s): XR shoulder RT min 2V Accession Number(s): [id number] cc: Aliza Paul DO; Candice Hastings EXAMINATION: [...] by: Demetrio Valverde MD 12/05/2024 03:21 PM [facility] Dictated By: Demetrio Valverde MD Signed By: <Electronically signed by Demetrio Valverde MD in OV> 12/05/24 1521 DD/ 1403 TD/TT: 12/05/24 1450 Structural Engineering Technician: [facility] External Provider IMG XR PROCEDURES Final Result * (ABNORMAL) Drug Monitoring, Panel 1, Screen, Urine (11/23/2024 12:48 PM EST) Opiate Screen Urine Not Detected Not Detect [facility] Comment:Opiate cut-off is 30 0 ng/mL.Positive results are unconfirmed and should not be used fornon-medical purposes. Barbiturates, Urine Not Detected Not Detect [facility] Comment:Barbiturate cut-off is 200 ng/mL.Positive results are unconfirmed and should not be used fornon-medical purposes. Phencyclidine Screen Urine Not Detected Not Detect [facility] Comment:Phencyclidine cut-of f is 25 ng/mL.Positive results are unconfirmed and should not be used fornon-medical purposes. Amphetamine Screen Urine Not Detected Not Detect [facility] Comment:Amphetamine cut-off is 1000 ng/mL.Positive results are unconfirmed and should not be used fornon-medical purposes. Benzodiazepines Screen Urine Not Detected Not Detect [facility] Comment:Benzodiazepine cut-o ff is 200 ng/mL.Positive results are unconfirmed and should not be used fornon-medical purposes. Cocaine Screen Urine POSITIVE(A) Not Detect [facility] Comment:Cocaine cut-off is 3 00 ng/mL.Positive results are unconfirmed and should not be used fornon-medical purposes. Cannabinoid Screen Urine POSITIVE(A) Not Detect [facility] Comment:Cannabinoid cut-off is 50 ng/mL.Positive results are unconfirmed and should not be used fornon-medical purposes. Methadone Screen, Urine Not Detected Not Detect ng/mL [facility] Comment:Methadone cut-off is 300 ng/mL.Positive results are unconfirmed and should not be used fornon-medical purposes. FENTANYL URINE Not Detected Not Detect [facility] Comment:Fentanyl cut-off is 1 ng/mL.Positive results are unconfirmed and should not be used fornon-medical purposes. Oxycodone Urine Screen Not Detected Not Detect ng/mL [facility] Comment:Oxycodone cut-off is 100 ng/mL.Positive results are unconfirmed and should not be used fornon-medical purposes. Buprenorphine Screen Not Detected Not Detect ng/mL [facility] Comment:Buprenorphine cut-of f is 5 ng/mL.Positive results are unconfirmed and should not be used fornon-medical purposes. 11/23/2024 12:4 8 PM EST 11/23/2024 12:51 PM EST us Generic External Data Provider LAB URINE ORDERAB LES Final Result [facility] [address] [place] [address] [phone] * HEPATITIS C AB W/REFL TO HCV RNA, QN, PCR (01/28/2022 10:33 AM EDT) HEPATITIS C ANTIBODY NON-REACT ERNESTO NON-REACT ERNESTO [facility] INDEX 0.01 <1.00 [facility] Comment: ?? HCV antibody was non-reactive. There is no laboratory ?? evidence of HCV infection. ?? In most cases, no further action is required. However, if recent HCV exposure is suspected, a test for HCV RNA (test code 36451) is suggested. ?? For additional information please refer to http://education.[employer]/faq/MND07m3 (This link is being provided for informational/ educational purposes only.) ?? 01/28/2022 10:3 3 AM EDT us Aliza Paul DO HISTORICAL/NON ORDERABLE LAB S Final Result Performing Organization Address City/[facility]/ZIP Co de Phone Number [facility] [address] * HIV 1/2 ANTIGEN/ANTIBODY,FOURTH GENERATION W/RFL (01/28/2022 10:33 AM EDT) HIV-1/2 ANTIGEN AND ANTIBODIES, 4TH GENERATION W/ REFLEX NON-REACT ERNESTO NON-REACT ERNESTO [facility] Comment: HIV-1 antigen and HIV-1/HIV-2 [...] ? For additional information please refer to http://DartPoints.[employer]/faq/ARR025 (This link is being provided for informational/ educational purposes only.) ? The performance of this assay has not been clinically validated in patients less than 2 years old. ?? 01/28/2022 10:3 3 AM EDT us Aliza Paul DO LAB BLOOD ORDERABLES Final R esult [facility] [address] * (ABNORMAL) LIPID PANEL, STANDARD (01/28/2022 [...] ?? Albert WHITTINGTON et al. OVIDIO. 2013;310(19): 2187-6567 ?? (http://education.[employer]/faq/JWL953) Non-HDL Cholesterol 170(H) <130 mg/dL (calc) [facility] Comment: For patients with diabetes plus 1 major ASCVD risk ?? factor, treating to a non-HDL-C goal of <100 mg/dL ?? (LDL-C of <70 mg/dL) is considered a therapeutic ?? option. Triglycerides 242(H) <150 mg/dL [facility] Comment: ?? If a non-fasting specimen was collected, consider repeat triglyceride testing on a fasting specimen if clinically indicated. ?? Jaime et al. J. of Clin. Lipidol. 2015;9:129-169. ?? 01/28/2022 10:3 3 AM EDT us Aliza Paul DO LAB BLOOD ORDERABLES Final R esult [facility] [address] * HPV E6/E7 RFLX ROMA 16 18/45 (12/10/2017 12:51 PM EST) ADDITIONAL TESTING Not indicated () [facility] Comment: Test Performed by [employer], ubitus [facility], [address] [place] [address] Ulises Silva M.D., Ph.D., Director of Laboratories , [place] [id number] HPV 16 RNA Test not performed [facility] HPV 18/45 RNA Test not performed [facility] HPV mRNA E6/E7 Not Detected NOT DETECTED [facility] Comment: This test was performed using the APTIMA(R) HPV Assay ([employer] This assay detects E6/E7 viral messenger RNA (mRNA) from 14 high-risk HPV types (16,18,31,33,35,39,45,51, 52,56,58,59,66,68). For additional information please refer to: http://education.[employer]/faq/XTH357x9 (This link is being provided for informational/ educational purposes only.) Please note: ??Effective 07/20/2016, HPV testing will be performed using [employer]'s APTIMA test which targets mRNA. Detecting mRNA instead of DNA, as in older methods, offers significant improvements in specificity. 12/10/2017 12:5 1 PM EST Aliza Paul DO HISTORICAL/NON ORDERABLE LAB S Final Result [facility] [address] [place] [id number], from Last 3 Months or Most Recently Relevant to Health Maintenance Insurance [facility] C3 DENTAL-[facility] MEDICAID STAND ADULT Care Teams Makeup Instructor Relationship Specialty Start Date End Date Aliza Paul DO [address] [place] [address] PCP - General Family Medicine 02/23/12 Lesley Ingram Community Health Worker 05/17/24 Rosi Castro RN [address] [place] [address] Pipe Coverer Helper 05/17/24 [facility] 07/27/24
--- OUTSIDE RECORDS SUMMARY | 2024-12-12 13:44 | XMS_ITS | Encounter Summary ---
Author Organization [employer] Address [address] [place] [address] [place] [address] Care Team Providers Care Mud Tank Operator Name Role Phone Aliza Paul DO Primary Care Provider [phone] Lesley Ingram Unavailable Unavailable Rosi Castro RN Unavailable [phone] Reason for Visit * Reason Onset Date Comments PT-1 12/11/2024 Encounter Details Date Type Department Care Team ([facility] st Contact Info) Description 12/11/[address] [facility] MEDICINE [address] [place], [place] [phone] Aliza Paul DO [address] [place] [address] PT-1 Social History Tobacco Use Types Packs/Day [...] encounter Miscellaneous Notes * Telephone Encounter - Tye Dowling - 12/11/2024 8:54 AM EST Patient calling requesting PT1 Home Address verified: Y/N: Yes Provider name or facility name: [address] [place] [address] Dr, [address], [place] [address] Urology and Orthopedic [address] [facility] Escort needed: Y/N: Yes Do you have a wheelchair: Y/N: Yes If yes- Manual or electric: Manual Visits: (4 x Month) documented in this encounter Plan of Treatment Upcoming Encounters Date Type Department Care Team (Late st Contact Info) Description 12/18/2024 2:45 PM EST Office Visit [facility] MEDICINE [address] [place] [address] Gardenia Doyle MD [address] [place] [address] 02/08/2025 3:00 PM EDT Office Visit [facility] OPTOMETRY [address] [place] [address] Kimberly Gonzalez, RIYA [address] [place] [address] documented as of this encounter Visit Diagnoses Not on filedocumented in this encounter Additional Health Concerns Assessment Noted Time PHQ-9 Depression Total Score: 15 024 9:20 AM EDT documented as of this encounter Care Teams Mud Tank Operator Relationship Specialty Start Date End Date Aliza Paul DO [address] [place] [address] PCP - General Family Medicine 02/23/12 Lesley Ingram Community Health Worker 05/17/24 Rosi Castro RN [address] [place] [address] Paper Twister Tender 05/17/24 [facility] 07/27/24 documented as of this encounter
--- OUTSIDE RECORDS SUMMARY | 2024-12-12 13:44 | XMS_ITS | Clinical Summary ---
Author Organization [address] [facility] Address [address] [place] [address] Phone Care Team Providers Care Professor Of Practice Name Role Phone Aliza Paul DO Primary Care Provider [phone] Encounters Date Type Department Care Team Description 09/29/2024 Lab Requisition [facility] - Main Lab [address] [facility] [place] [address] Aliza Paul DO Urinary tract [...] mirabilis(A ) OFELIA 10/01/2024 9:03 AM EST [facility] Comment: Edited result: Previously reported as Proteus species on 09/30/2024 at 1159 EST. Urine Urine specimen from urinary conduit / Unknown 09/29/2024 3:30 PM EST 09/29/2024 6:23 PM EST [facility] - 10/01/2024 9:03 AM EST [...] Paul DO LAB MICROBIOLOGY - GENERAL ORDERABLES [facility] [address] [place] [address], from Last 3 Months Care Teams Professor Of Practice Relationship Specialty Start Date End Date Aliza Paul DO [address] [place] [address] PCP - General Family Medicine 10/04/24
--- OUTSIDE RECORDS SUMMARY | 2024-12-12 13:44 | XMS_ITS | Encounter Summary ---
Author Organization [employer] Address [address] [place] [address] [place] [address] Care Team Providers Care Pet Walker Name Role Phone Aliza Paul DO Primary Care Provider [phone] Lesley Ingram Unavailable Unavailable Rosi Castro RN Unavailable [phone] Reason for Visit * Reason Onset Date Comments Nurse Triage 11/17/2024 Encounter Details Date Type Department Care Team ([facility] st Contact Info) Description 11/17/2024 Telephone [facility] MEDICINE [address] [place], [place] [phone] Aliza Paul DO [address] [place] [address] Nurse Triage Social History Tobacco Use Types [...] visit today. Reports currently has services for senior living 1 visit weekly for med management. Every 3 weeks for catheter change.Advised of above. Verbalized understanding. * Telephone Encounter - Sherif Macias - 11/17/2024 1:13 PM EST TC from [facility] with health point reports going to [...] [facility] MEDICINE [address] [place] [address] Gardenia Doyle MD [address] [place] [address] 02/08/2025 3:00 PM EDT Office Visit [facility] OPTOMETRY [address] [place], [place] [phone] Kimberly Gonzalez OD [address] [place] [address] documented as of this encounter Visit Diagnoses Not on filedocumented in this encounter Additional Health Concerns Assessment Noted Time PHQ-9 Depression Total Score: 15 024 9:20 AM EDT documented as of this encounter Care Teams Pet Walker Relationship Specialty Start Date End Date Aliza Paul DO [address] [place] [address] PCP - General Family Medicine 02/23/12 Lesley Ingram Community Health Worker 05/17/24 Rosi Castro RN [address] [place] [address] Drywall Hanger Framer 05/17/24 [facility] documented as of this encounter
--- OUTSIDE RECORDS SUMMARY | 2024-12-12 13:44 | XMS_ITS | Encounter Summary ---
Author Organization [employer] Address [address] [place] [address] [place] [address] Care Team Providers Care Dust Operator Name Role Phone Aliza Paul DO Primary Care Provider [phone] Lesley Ingram Unavailable Unavailable Rosi Castro RN Unavailable [phone] Reason for Visit * Reason Onset Date Comments Medication Question 09/28/2024 Encounter Details Date Type Department Care Team ([facility] Contact Info) Description 09/28/2024 Telephone [facility] MEDIC[facility] [address] [place], [place] [phone] Aliza Paul DO [address] [place] [address] Medication Question Social History Tobacco Use Types [...] 8:55 AM EST TC placed to pt [phone] in regards to below message. Pt did not answer, RN left VM requesting CB to red team nurses. Pt to f/u PRN. * Telephone Encounter - Ling Guido - 09/28/2024 4:43 PM EST Tc from pt requesting to speak to nurse regarding medication dosage. Pt also requesting [facility] appointment with PCP on 10/03. Stated anxiety while waiting on hold for PT1 transportation Contact pt at [phone] documented in this encounter Plan of Treatment Upcoming Encounters Date Type Department Care Team (Late st Contact Info) Description 12/18/2024 2:45 PM EST Office Visit [facility] MED[facility]INE [address] [place] [address] Gardenia Doyle MD [address] [place] [address] 02/08/2025 3:00 PM EDT Office Visit [facility] OPTOMETRY [address] [place] [address] Kimberly Gonzalez OD [address] [place] [address] documented as of this encounter Visit Diagnoses Not on filedocumented in this encounter Additional Health Concerns Assessment Noted Time PHQ-9 Depression Total Score: 15 024 9:20 AM EDT documented as of this encounter Care Teams Dust Operator Relationship Specialty Start Date End Date Aliza Paul DO [address] [place] [address] PCP - General Family Medicine 02/23/12 Lesley Ingram Community Health Worker 05/17/24 Rosi Castro RN [address] [place] [address] Umbrella Cutter 05/17/24 [facility] Care 07/27/24 documented as of this encounter
--- OUTSIDE RECORDS SUMMARY | 2024-12-12 13:44 | XMS_ITS | Encounter Summary ---
Author Organization [employer] Address [address] [place] [address] 7 [place] [address] Care Team Providers Care Supervisor Pile Driving Name Role Phone Aliza Paul DO Primary Care Provider [phone] Lesley Ingram Unavailable Unavailable Rosi Castro RN Unavailable [phone] Reason for Visit * Reason Comments Care Coordination CHW outreach for SDO H PT-1 and food needs-referral completed Encounter Details Date Type Department Care Team (Latest Contact Info) Description 12/11/2024 Patient Outreach [facility] MEDICINE [address] [place], [place] [phone] Aliza Paul DO [address] [place] [address] Care Coordination (CHW outreach for SDOH PT-1 and food needs-referral completed /) Social History Tobacco Use Types Packs/Day Years [...] as of this encounter Progress Notes * Matty Disla - 12/11/2024 9:46 AM EST CHW Matty Disla, placed outbound call to patient for assistance with SDOH as a referral was received by the provider. Patient's name and were confirmed. Patient screened positive for the following SDOH food insecurities. Patient states family in on SNAP program at this time. CHW referral patient to the local list of pantries in the area for help. PT-1 requested was send out in behalf of patient for futures appt. Patient verbalizes understanding, and able to agree with plan to follow up.Patient educated on extended clinic hours on Mondays through Wednesdays, and Walk-In Urgent Care Located in [facility] of [facility]. Patient provided with after-hours line for [facility], , which offer night time triage service and option to transfer to regional ehs manager provider if needed. documented in this encounter Plan of Treatment Upcoming Encounters Date Type Department Care Team (Late st Contact Info) Description 12/18/2024 2:45 PM EST Office Visit [facility] MEDICINE [address] [place] [address] Gardenia Doyle MD [address] [place] [address] 02/08/2025 3:00 PM EDT Office Visit [facility] OPTOMETRY [address] [place] [address] Kimberly Gonzalez OD [address] [place] [address] documented as of this encounter Visit Diagnoses Not on filedocumented in this encounter Additional Health Concerns Assessment Noted Time PHQ-9 Depression Total Score: 15 024 9:20 AM EDT documented as of this encounter Care Teams Supervisor Pile Driving Relationship Specialty Start Date End Date Aliza Paul DO [address] [place], [place] [phone] PCP - General Family Medicine 02/23/12 Lesley Ingram Community Health Worker 05/17/24 Rosi Castro RN [address] [place] [address] Mountain Guide 05/17/24 [facility] Care 07/27/24 documented as of this encounter
--- OUTSIDE RECORDS SUMMARY | 2024-12-12 13:44 | XMS_ITS | Encounter Summary ---
Author Organization [facility] Address [address] [place] [address] Care Team Providers Care Extra Gang Supervisor Name Role Phone Aliza Paul DO Primary Care Provider +[phone]- [phone] Encounter Details Date Type Department Care Team (Late st Contact Info) Description 09/29/2024 Lab Requisition [facility] - Main Lab [address] [place] [address] Aliza Paul DO [address] [place], [place] Urinary tract infection, site not specified [...] mirabilis(A ) OFELIA 10/01/2024 9:03 AM EST [facility] ([facility]) [facility] Comment: Edited result: Previously reported as Proteus species on 09/30/2024 at 1159 EST. Urine Urine specimen from urinary conduit / Unknown 09/29/2024 3:30 PM EST 09/29/2024 6:23 PM EST [facility]ative [facility]) [facility] - 10/01/2024 9:03 AM EST Additional [...] Paul DO LAB MICROBIOLOGY - GENERAL ORDERABLES [facility] [address] [place] [address], documented in this encounter Visit Diagnoses Diagnosis Urinary tract infection, site not specified documented in this encounter Care Teams Extra Gang Supervisor Relationship Specialty Start Date End Date Aliza Paul DO [address] [place] [address] PCP - General Family Medicine 10/04/24 documented as of this encounter
== END 2024-12-12 14:24 | disposition home or self-care (01) ==
PROVIDERS: PCP Family Medicine; Visit Provider Orthopaedic Surgery
DX: S62.522A Displaced fracture of distal phalanx of left thumb, initial encounter for closed fracture (principal); F14.10 Cocaine abuse, uncomplicated
CPT/HCPCS: 99204

== ENCOUNTER → 2024-12-12 13:32 | Outpatient (BNVA) | payer MEDICAID, SELFPAY | PROVIDERS: PCP Family Medicine; Visit Provider Orthopaedic Surgery | DX: S62.522A Displaced fracture of distal phalanx of left thumb, initial encounter for closed fracture (principal); S56.419A Strain of extensor muscle, fascia and tendon of finger, unspecified finger at forearm level, initial encounter; F14.10 Cocaine abuse, uncomplicated; W05.0XXA Fall from non-moving wheelchair, initial encounter; Y93.9 Activity, unspecified; Y92.9 Unspecified place or not applicable; Y99.9 Unspecified external cause status; Z86.73 Personal history of transient ischemic attack (TIA), and cerebral infarction without residual deficits | CPT/HCPCS: 99202 ==

== ENCOUNTER 2025-01-07 09:30 | Emergency (ER) | payer MEDICAID, SELFPAY ==
[2025-01-07] VITALS (7 sets, daily range): BP systolic 149–220; BP diastolic 76–133; PULSE 72–86; RESP 16–18; TEMP 28.8–36.9; O2SAT 96–97; BMI 31.9
--- OUTSIDE RECORDS SUMMARY | 2025-01-07 10:05 | XMS_ITS | Encounter Summary ---
Author Organization [employer] Address [address] [place] [address] 7 [place] [address] Care Team Providers Care Customer Advocate Name Role Phone Aliza Paul DO Primary Care Provider [phone] Lesley Ingram Unavailable Unavailable Rosi Castro RN Unavailable [phone] Reason for Visit * Reason Comments Med Refill Encounter Details Date Type Department Care Team ([facility] st Contact Info) Description 07/01/2024 Refill [facility] MED[facility]INE [address] [place], [place] [phone] Aliza Paul DO 230 [place] [address] Other chronic pain Social History Tobacco Use [...] Care Team (Late st Contact Info) Description 01/11/2025 2:00 PM EST Office Visit [facility] 230 [place] [address] Moira Chau MD 230 [place] [address] 02/08/2025 3:00 PM EDT Office Visit [facility] OPTOMETRY [address] [place], [place] [phone] Kimberly Gonzalze OD [address] [place] [address] documented as of this encounter Visit Diagnoses Diagnosis Other chronic pain documented in this encounter Additional Health Concerns Assessment Noted Time PHQ-9 Depression Total Score: 4 03/09/20 24 9:14 AM EDT documented as of this encounter Care Teams Customer Advocate Relationship Specialty Start Date End Date Aliza Paul DO [address] [place] [address] PCP - General Family Medicine 02/23/12 Lesley Ingram Community Health Worker 05/17/24 Rosi Castro RN [address] [place] [address] Heading And Priming Operator 05/17/24 [facility] 07/27/24 documented as of this encounter
--- OUTSIDE RECORDS SUMMARY | 2025-01-07 10:06 | XMS_ITS | Encounter Summary ---
Author Organization [employer] Address [address] [place] [address] 7 [place] [address] Care Team Providers Care Nurse Name Role Phone Aliza Paul DO Primary Care Provider [phone] Lesley Ingram Unavailable Unavailable Rosi Castro RN Unavailable [phone] Reason for Visit * Reason Onset Date Comments Med Refill 12/11/2024 Encounter Details Date Type Department Care Team (Late st Contact Info) Description 12/11/2024 Refill [facility] MED[facility]INE [address] [place], [place] [phone] Aliza Paul DO 230 [place] [address] Closed supracondylar fracture of right humerus with [...] 500 MG tablet To be sent to: [facility] [place] - [address] documented in this encounter Plan of Treatment Upcoming Encounters Date Type Department Care Team (Late st Contact Info) Description 01/11/2025 2:00 PM EST Office Visit [facility] MEDICINE [address] [place] [address] Moira Chau MD 230 [place] [address] 02/08/2025 3:00 PM EDT Office Visit [facility] OPTOMETRY [address] [place] [address] Kimberly Gonzalez, RIYA [address] [place] [address] documented as of this encounter Visit Diagnoses Diagnosis Closed supracondylar fracture of right humerus with routine healing documented in this encounter Additional Health Concerns Assessment Noted Time PHQ-9 Depression Total Score: 15 024 9:20 AM EDT documented as of this encounter Care Teams Nurse Relationship Specialty Start Date End Date Aliza Paul DO [address] [place] [address] PCP - General Family Medicine 02/23/12 Lesley Ingram Community Health Worker 05/17/24 Rosi Castro RN [address] [place] [address] Well Cleaner 05/17/24 [facility] Care 07/27/24 documented as of this encounter
--- OUTSIDE RECORDS SUMMARY | 2025-01-07 10:06 | XMS_ITS | Encounter Summary ---
Author Organization [employer] Address [address] [place] [address] 7t [place] [address] Care Team Providers Care Senior Lead Software Engineer Name Role Phone Aliza Paul DO Primary Care Provider [phone] Lesley Ingram Unavailable Unavailable Rosi Castro RN Unavailable [phone] Reason for Visit * Reason Comments Med Refill Encounter Details Date Type Department Care Team ([facility] st Contact Info) Description 12/14/2024 Refill [facility] [address] [place], [place] [phone] Aliza Paul DO 230 [facility] [place] [address] Anxiety disorder, unspecified type Social History Tobacco Use Types Packs/Day [...] Description 01/11/2025 2:00 PM EST Office Visit [facility] 230 [place] [address] Moira Chau MD 230 [place] [address] 02/08/2025 3:00 PM EDT Office Visit [facility] OPTOMETRY [address] [place] [address] Kimberly Gonzalez, RIYA [address] [place] [address] documented as of this encounter Visit Diagnoses Diagnosis Anxiety disorder, unspecified type documented in this encounter Additional Health Concerns Assessment Noted Time PHQ-9 Depression Total Score: 15 024 9:20 AM EDT documented as of this encounter Care Teams Senior Lead Software Engineer Relationship Specialty Start Date End Date Aliza Paul DO [address] [place] [address] PCP - General Family Medicine 02/23/12 Lesley Ingram Community Health Worker 05/17/24 Rosi Castro RN [address] [place] [address] Credit Risk Manager 05/17/24 [facility] 07/27/24 documented as of this encounter
--- OUTSIDE RECORDS SUMMARY | 2025-01-07 10:06 | XMS_ITS | Encounter Summary ---
Author Organization [employer] Address [address] [place] [address] [place] [address] Care Team Providers Care Commutator V Ring Assembler Name Role Phone Aliza Paul DO Primary Care Provider [phone] Lesley Ingram Unavailable Unavailable Rosi Castro RN Unavailable [phone] Reason for Visit * Reason Onset Date Comments FYI 08/14/2024 Encounter Details Date Type Department Care Team ([facility] st Contact Info) Description 08/14/2024 Telephone [facility] MEDICINE 230 [place], [place] [phone] Aliza Paul DO 230 [place] [address] FYI Social History Tobacco Use Types Packs/Day [...] 10:28 AM EDT [facility] to visit pt today to be able to change catheter. But when she arrived pt was being put in the ambulance and was going to be transported to [facility] for shortness of breath. documented in this encounter Plan of Treatment Upcoming Encounters Date Type Department Care Team (Late st Contact Info) Description 01/11/2025 2:00 PM EST Office Visit [facility] MEDICINE [address] [place] [address] Moira Chau MD 230 [place] [address] 02/08/2025 3:00 PM EDT Office Visit [facility] OPTOMETRY [address] [place] [address] Kimberly Gonzalez OD [address] [place] [address] documented as of this encounter Visit Diagnoses Not on filedocumented in this encounter Additional Health Concerns Assessment Noted Time PHQ-9 Depression Total Score: 4 03/09/20 24 9:14 AM EDT documented as of this encounter Care Teams Commutator V Ring Assembler Relationship Specialty Start Date End Date Aliza Paul DO [address] [place] [address] PCP - General Family Medicine 02/23/12 Lesley Ingram Community Health Worker 05/17/24 Rosi aCstro RN [address] [place] [address] Machine Operations Supervisor 05/17/24 [facility] 07/27/24 documented as of this encounter
--- OUTSIDE RECORDS SUMMARY | 2025-01-07 10:06 | XMS_ITS | Encounter Summary ---
Author Organization [employer] Address [address] [place] [address] 7 [place] [address] Care Team Providers Care Financial Services Technician Name Role Phone Aliza Paul DO Primary Care Provider [phone] Lesley Ingram Unavailable Unavailable Rosi Castro RN Unavailable [phone] Encounter Details Date Type Department Care Team (Late st Contact Info) Description 03/15/2024 Telephone [facility] MEDICINE 230 [place], [place] [phone] Aliza Paul DO 230 [place], [place] [phone] Social History Tobacco Use Types Packs/Day Years [...] 03/15/2024 10:54 AM EDT TC on 03/09/24 [facility] to make a referral for AFC program, I had to leave a voicemail message on the intake referral VM. The VM stated someone would get back to me in 24-48 hours. TC today 03/15/24 to once again make a referral for patient for the AFC program, intake information given. Patient's insurance was verified and she needs to call [employer] as she has [employer] and they do not provide in home services like S[employer]DER or AFC program. I called patient and she stated she was in the hospital at [facility] and had to have neck surgery. When I mentioned about her calling [employer] to straighten out the coverage she was not very pleasant and she told me to do it myself. I contacted Maricruz back at [facility] intake and referral dept and left voice mail message that patient was in the hospital at [facility]. documented in this encounter Plan of Treatment Upcoming Encounters Date Type Department Care Team (Late st Contact Info) Description 01/11/2025 2:00 PM EST Office Visit [facility] MEDICINE [address] [place] [address] Moira Chau MD 230 [place] [address] 02/08/2025 3:00 PM EDT Office Visit [facility] OPTOMETRY [address] [place], [place] [phone] Kimberly Gonzalez OD [address] [place] [address] documented as of this encounter Visit Diagnoses Not on filedocumented in this encounter Additional Health Concerns Assessment Noted Time PHQ-9 Depression Total Score: 4 03/09/20 24 9:14 AM EDT documented as of this encounter Care Teams Financial Services Technician Relationship Specialty Start Date End Date Aliza Paul DO 230 [place] [address] PCP - General Family Medicine 02/23/12 Lesley Ingram Community Health Worker 05/17/24 Rosi Castro RN [address] [place] [address] Reinforcing Steel Worker Wire Mesh 05/17/24 [facility] 07/27/24 documented as of this encounter
--- OUTSIDE RECORDS SUMMARY | 2025-01-07 10:06 | XMS_ITS | Encounter Summary ---
Author Organization [employer] Address [address] [place] [address] [place] [address] Care Team Providers Care Sleeve Bottom Feller Name Role Phone Aliza Paul DO Primary Care Provider [phone] Lesley Ingram Unavailable Unavailable Rosi Castro RN Unavailable [phone] Reason for Visit * Reason Comments Transition Of Care (Tcm) Encounter Details Date Type Department Care Team ([facility] st Contact Info) Description 12/11/2024 Patient Outreach [facility] MEDICINE [address] [place], [place] [phone] Aliza Paul DO [address] [place] [address] Transition Of Care (Tcm) Social History Tobacco [...] Admission/Visit 12/08/24 Date of Discharge 12/08/24 Facility [facility] Diagnosis COUGH,RECENT RSV DX PER EMS Disposition Discharged Home * Rakel Guerra RN - 12/11/2024 12:22 PM EST Transition of Care Note Cheryl is going through a recent transition of care. Hospital Discharges and Admission for [facility] Type of Visit: Emergency Department Date of Admission/Visit: 12/08/24 Date of Discharge: 12/08/24 Facility: [facility] Diagnosis: Acute Bronchitis Disposition: Discharged Home Follow-Up Actions Follow-Up Needed: None/self-monitoring Follow-Up Outcome: Spoke to Patient Initial Contact Date: 12/11/24 The full discharge summary is available on [facility]. Recent Visits Date Type Provider Dept 09/07/24 Office Visit Delmis Cat MD [facility] Medicine 05/23/24 Office Visit Aliza Paul DO [facility] Medicine 03/09/24 Office Visit Aliza Paul DO [facility] Medicine 10/22/23 Office Visit Aliza Paul DO [facility] Medicine Showing recent visits within past 540 days with a meds authorizing provider and meeting all other requirements Future Appointments Date Type Provider Dept 12/18/24 Appointment Gardenia Doyle MD [facility] Medicine Showing future appointments within next 150 days with a meds authorizing provider and meeting all other requirements TC placed to patient [phone] who confirms she p/u her medications that [...] Description 01/11/2025 2:00 PM EST Office Visit [facility] MEDIC[facility] [address] [place] [address] Moira Chau MD [address] [place] [address] 02/08/2025 3:00 PM EDT Office Visit [facility] OPTOMETRY [address] [place] [address] Kimberly Gonzalez, OD [address] [place] [address] documented as of this encounter Visit Diagnoses Not on filedocumented in this encounter Additional Health Concerns Assessment Noted Time PHQ-9 Depression Total Score: 15 024 9:20 AM EDT documented as of this encounter Care Teams Sleeve Bottom Feller Relationship Specialty Start Date End Date Aliza Paul DO [address] [place] [address] PCP - General Family Medicine 02/23/12 Lesley Ingram Community Health Worker 05/17/24 Rosi Castro RN 505 [facility] [address] Brush Fabrication Supervisor 05/17/24 [facility] 07/27/24 documented as of this encounter
--- OUTSIDE RECORDS SUMMARY | 2025-01-07 10:06 | XMS_ITS | Encounter Summary ---
Author Organization [employer] Address [address] [place] [address] [place] [address] Care Team Providers Care Application Support Developer Name Role Phone Aliza Paul DO Primary Care Provider [phone] Lesley Ingram Unavailable Unavailable Rosi Castro RN Unavailable [phone] Reason for Visit * Reason Onset Date Comments PT-1 10/19/2024 Encounter Details Date Type Department Care Team ([facility] st Contact Info) Description 10/19/2024 Telephone [facility] MEDICINE [address] [place], [place] [phone] Aliza Paul DO [address] [place] [address] PT-1 Social History Tobacco Use Types Packs/Day [...] Y/N: Yes Provider name or facility name: [facility] Facility Address: [address] [place] [address] Escort needed: Y/N: Yes Do you have a wheelchair: Y/N: Yes If yes- Manual or electric: Sathish Visits: Once a month - Patient calling requesting PT1 Home Address verified: Y/N: Yes Provider name or facility name: [facility] Facility Address: [address] [place] [address] Escort needed: Y/N: Yes Do you have a wheelchair: Y/N: Yes If yes- Manual or electric: Sathish Visits: Once a month documented in this encounter Plan of Treatment Upcoming Encounters Date Type Department Care Team (Late st Contact Info) Description 01/11/2025 2:00 PM EST Office Visit [facility] MEDICINE [address] [place] [address] Moira Chau MD [address] [place] [address] 02/08/2025 3:00 PM EDT Office Visit [facility] OPTOMETRY [address] [place] [address] Kimberly Gonzalez OD [address] [place] [address] documented as of this encounter Visit Diagnoses Not on filedocumented in this encounter Additional Health Concerns Assessment Noted Time PHQ-9 Depression Total Score: 15 024 9:20 AM EDT documented as of this encounter Care Teams Application Support Developer Relationship Specialty Start Date End Date Aliza Paul DO [address] [place] [address] PCP - General Family Medicine 02/23/12 Lesley Ingram Community Health Worker 05/17/24 Rosi Castro RN [address] [place] [address] Railroad Signal Technician 05/17/24 [facility] Care 07/27/24 documented as of this encounter
--- OUTSIDE RECORDS SUMMARY | 2025-01-07 10:06 | XMS_ITS | Clinical Summary ---
Author Organization [facility] Address [address] [place] [address] Phone Care Team Providers Care Manager Landscape Name Role Phone Aliza Paul DO Primary Care Provider [phone] Social History Tobacco Use Types Packs/Day Years Used Date Smoking Tobacco: Never Assessed Comments Unknown Sex and Gender Information Value Date Recorded Sex Assigned at Not on file Legal Sex Female 6:15 PM EST Gender Identity Not on file Sexual Orientation Not on file Plan of Treatment Upcoming Encounters Date Type Department Care Team (Late st Contact Info) Description 01/18/2025 8:45 AM EDT Evaluation [facility] [address] [place] [address] Anne-Marie Young, OSMEL Health Maintenance Due Date Last Done Comments Breast Cancer Screening 1965 DTaP,Tdap,and Td Vaccines (1 - Tdap) 1984 Hepatitis B Vaccines (1 of 3 - 19+ 3-dose series) 1984 Cervical Cancer Screening: P ap Smear 1986 Pneumococcal Vaccine: 50+ Ye ars (1 of 1 - PCV) 2015 Zoster Vaccines (1 of 2) 2015 COVID-19 Vaccine (2023-2 5 season) 2024 Influenza Vaccine (#1) 2024 [...] patient's age to complete this topic Meningococcal B Vacine Aged Out No lo nger eligible based on patient's age to complete [...] on patient's age to complete this topic Insurance MEDICAID - [place] Care Teams Manager Landscape Relationship Specialty Start Date End Date Aliza Paul DO [address] [place] [address] PCP - General Family Medicine 10/04/24
--- OUTSIDE RECORDS SUMMARY | 2025-01-07 10:06 | XMS_ITS | Encounter Summary ---
Author Organization [employer] Address [address] [place] [address] 7 [place] [address] Care Team Providers Care Senior Brand Manager Name Role Phone Aliza Paul DO Primary Care Provider [phone] Lesley Ingram Unavailable Unavailable Rosi Castro RN Unavailable [phone] Reason for Visit * Reason Onset Date Comments Appointment Request 12/27/2024 Hospital Follow-up 12/27/2024 Encounter Details Date Type Department Care Team ([facility] st Contact Info) Description 12/27/[address] [facility] MEDICINE [address] [place], [place] [phone] Aliza Paul DO [address] [place] [address] Appointment Request; Hospital Follow-up Social History Tobacco Use Types Packs/Day Years [...] Telephone Encounter - Rakel Guerra RN - 12/27/2024 1:34 PM EST TC placed to patient [phone] to r/s HDF appointment. Patient requesting to see PCP ONLY. RN looked for next HDF with PCP however none available until 01/23/25 at 9:15am however patient is requesting an appointment in the PM. RN advised patient, PCP does not work in the PM's. Patient then requested an appointment after 10:30am however no HDF's available in January with PCP after 10:30am. Patientagreed to see alternative provider. RN scheduled patient for an appointment on 01/11/[address] Floyd. Patient reminded to call PT1 to schedule transportation at least 3 days prior to the appointment (RN called Reina in referral team to confirm PT1 is ACTIVE for C until 12/2025). Patient did not have any further questions/concerns. Patient to f/u PRN. * Telephone Encounter - Ling Guido - 12/27/2024 12:26 PM EST Tc from pt requesting to r/s hospital follow up appointment from 12/18/24. Contact pt at [phone] documented in this encounter Plan of Treatment Upcoming Encounters Date Type Department Care Team (Late st Contact Info) Description 01/11/2025 2:00 PM EST Office Visit [facility] MEDICINE 230 [place], [place] [phone] Moira Chau MD 230 [place] [address] 02/08/2025 3:00 PM EDT Office Visit [facility] OPTOMETRY [address] [place], [place] [phone] Kimberly Gonzalez OD [address] [place] [address] documented as of this encounter Visit Diagnoses Not on filedocumented in this encounter Additional Health Concerns Assessment Noted Time PHQ-9 Depression Total Score: 15 024 9:20 AM EDT documented as of this encounter Care Teams Senior Brand Manager Relationship Specialty Start Date End Date Aliza Paul DO [address] [place] [address] PCP - General Family Medicine 02/23/12 Lesley Ingram Community Health Worker 05/17/24 Rosi Castro RN [address] [place] [address] Acquisitions Analyst 05/17/24 [facility] documented as of this encounter
--- OUTSIDE RECORDS SUMMARY | 2025-01-07 10:06 | XMS_ITS | Encounter Summary ---
Author Organization [employer] Address [address] [place] [address] [place] [address] Care Team Providers Care Instrument Tester Name Role Phone Aliza Paul DO Primary Care Provider [phone] Lesley Ingram Unavailable Unavailable Rosi Castro RN Unavailable [phone] Reason for Visit * Reason Onset Date Comments PT-1 12/11/2024 Encounter Details Date Type Department Care Team ([facility] st Contact Info) Description 12/11/2024 Telephone [facility] MEDICINE 230 [place], [place] [phone] Aliza Paul DO [address] [place] [address] PT-1 Social History Tobacco Use Types Packs/Day [...] Y/N: Yes Provider name or facility name: [address] [place] [address], [address], [place] [address] Urology and Orthopedic [address] [facility] Escort needed: Y/N: Yes Do you have a wheelchair: Y/N: Yes If yes- Manual or electric: Manual Visits: (4 x Month) documented in this encounter Plan of Treatment Upcoming Encounters Date Type Department Care Team (Late st Contact Info) Description 01/11/2025 2:00 PM EST Office Visit [facility] MEDICINE [address] [place] [address] Moira Chau MD [address] [place] [address] 02/08/2025 3:00 PM EDT Office Visit [facility] OPTOMETRY [address] [place] [address] Kimberly Gonzalez, OD [address] [place] [address] documented as of this encounter Visit Diagnoses Not on filedocumented in this encounter Additional Health Concerns Assessment Noted Time PHQ-9 Depression Total Score: 15 024 9:20 AM EDT documented as of this encounter Care Teams Instrument Tester Relationship Specialty Start Date End Date Aliza Paul DO [address] [place] [address] PCP - General Family Medicine 02/23/12 Lesley Ingram Community Health Worker 05/17/24 Rosi Castro RN [address] [place] [address] Clock And Watch Hands Dipper 05/17/24 [facility] 07/27/24 documented as of this encounter
--- OUTSIDE RECORDS SUMMARY | 2025-01-07 10:06 | XMS_ITS | Encounter Summary ---
Author Organization [facility] Address [address] [place] [address] Care Team Providers Care Voice Engineer Name Role Phone Aliza Paul DO Primary Care Provider [phone] Encounter Details Date Type Department Care Team (Late Contact Info) Description 09/29/2024 Lab Requisition [facility] - Main Lab [address] [place] [address] Aliza Paul DO [address] [place], [place] Urinary tract infection, site not specified Social History Tobacco Use Types Packs/Day Years Used Date Smoking Tobacco: Never Assessed Comments Unknown Sex and Gender Information Value Date Recorded Sex Assigned at Not on file Legal Sex Female 6:15 PM EST Gender Identity Not on file Sexual Orientation Not on file documented as of this encounter Plan of Treatment Upcoming Encounters Date Type Department Care Team (Late Contact Info) Description 01/18/2025 8:45 AM EDT Evaluation [facility] [address] [address] Anne-Marie Young, OSMEL documented as of this encounter Procedures Procedure Name Priority Date/Time Associated Diagnosis Comments CULTURE URINE Routine 09/29/2024 3:30 PM EST Urinary tract infection, site not specified documented in this encounter Results * (ABNORMAL) Culture urine (09/29/2024 3:30 PM EST) Culture, Urine >100,000 CFU/mL Proteus mirabilis(A ) OFELIA 10/01/2024 9:03 AM EST [facility] Comment: Edited result: Previously reported as Proteus species on 09/30/2024 at 1159 EST. Urine Urine specimen from urinary conduit / Unknown 09/29/2024 3:30 PM EST 09/29/2024 6:23 PM EST Narrative [facility] - 10/01/2024 9:03 AM EST [...] Proteus mirabilis Trimethoprim/Sulfamethoxazole OFELIA <=20 ug/ml: Susceptible us Aliza Paul DO LAB MICROBIOLOGY - GENERAL ORDERABLES Final Result [facility] [address] [place] [address], documented in this encounter Visit Diagnoses Diagnosis Urinary tract infection, site not specified documented in this encounter Care Teams Voice Engineer Relationship Specialty Start Date End Date Aliza Paul DO [address] [place] [address], [place] PCP - General Family Medicine 10/04/24 documented as of this encounter
--- OUTSIDE RECORDS SUMMARY | 2025-01-07 10:06 | XMS_ITS | Encounter Summary ---
Author Organization [employer] Address [address] [place] [address] 7 [place] [address] Care Team Providers Care Home Advisor Name Role Phone Aliza Paul DO Primary Care Provider [phone] Lesley Ingram Unavailable Unavailable Rosi Castro RN Unavailable [phone] Reason for Visit * Reason Comments Med Refill Encounter Details Date Type Department Care Team ([facility] st Contact Info) Description 12/27/2024 Refill [facility] [address] [place], [place] [phone] Aliza Paul DO [address] [place] [address] Other chronic pain Social History Tobacco Use [...] Description 01/11/2025 2:00 PM EST Office Visit [facility] [address] [place] [address] Moira Chau MD [address] [place] [address] 02/08/2025 3:00 PM EDT Office Visit [facility] [address] [place] [address] Kimberly Gonzalez, OD [address] [place] [address] documented as of this encounter Visit Diagnoses Diagnosis Other chronic pain documented in this encounter Additional Health Concerns Assessment Noted Time PHQ-9 Depression Total Score: 15 024 9:20 AM EDT documented as of this encounter Care Teams Home Advisor Relationship Specialty Start Date End Date Aliza Paul DO [address] [place] [address] PCP - General Family Medicine 02/23/12 Lesley Ingram Community Health Worker 05/17/24 Rosi Castro RN [address] [facility] [place] [address] Cord Cutter 05/17/24 [facility] 07/27/24 documented as of this encounter
--- OUTSIDE RECORDS SUMMARY | 2025-01-07 10:06 | XMS_ITS | Encounter Summary ---
Author Organization [employer] Address [address] [place] [address] 7 [place] [address] Care Team Providers Care Internal Salesperson Name Role Phone Aliza Paul DO Primary Care Provider [phone] Lesley Ingram Unavailable Unavailable Rosi Castro RN Unavailable [phone] Reason for Visit * Reason Comments Med Refill Encounter Details Date Type Department Care Team ([facility] st Contact Info) Description 10/29/2023 Refill [facility] [address] [place] [address] Aliza Paul DO [address] [place] [address] Social History Tobacco Use Types Packs/Day Years [...] Description 01/11/2025 2:00 PM EST Office Visit [facility] [address] [place] [address] Moira Chau MD [address] [place] [address] 02/08/2025 3:00 PM EDT Office Visit [facility] [address] [place], [place] [phone] Kimberly Gonzalez OD [address] [place] [address] documented as of this encounter Visit Diagnoses Not on filedocumented in this encounter Care Teams Internal Salesperson Relationship Specialty Start Date End Date Aliza Paul DO [address] [place] [address] PCP - General Family Medicine 02/23/12 Lesley Ingram Community Health Worker 05/17/24 Rosi Castro RN [address] [place] [id number] Certified Surgical First Assistant 05/17/24 [facility] 07/27/24 documented as of this encounter
--- OUTSIDE RECORDS SUMMARY | 2025-01-07 10:06 | XMS_ITS | Encounter Summary ---
Author Organization [employer] Address [address] [place] [address] [address] [place] [address] Care Team Providers Care Telescope Maintenance Name Role Phone Aliza Paul DO Primary Care Provider [phone] Lesley Ingram Unavailable Unavailable Rosi Castro RN Unavailable [phone] Reason for Visit * Reason Comments Care Coordination [facility] outreach for SDO H PT-1 and food needs-referral completed Encounter Details Date Type Department Care Team (Latest Contact Info) Description 12/11/2024 Patient Outreach [facility] [address] [place], [place] [phone] Aliza Paul DO [address] [place] [address] Care Coordination ([facility] outreach for SDOH PT-1 [...] Wednesdays, and Walk-In Urgent Care Located in [facility] of [facility]. Patient provided with after-hours line for [facility], , which offer night time triage service and option to transfer to security operations specialist provider if needed. documented in this encounter Plan of Treatment Upcoming Encounters Date Type Department Care Team (Late st Contact Info) Description 01/11/2025 2:00 PM EST Office Visit [facility] [address] [place] [address] Moira Chau MD [address] [place], [place] [phone] 02/08/2025 3:00 PM EDT Office Visit [facility] [address] [place] [address] Kimberly Gonzalez, OD [address] [place] [address] documented as of this encounter Visit Diagnoses Not on filedocumented in this encounter Additional Health Concerns Assessment Noted Time PHQ-9 Depression Total Score: 15 024 9:20 AM EDT documented as of this encounter Care Teams Telescope Maintenance Relationship Specialty Start Date End Date Aliza Paul DO [address] [place], [place] [phone] PCP - General Family Medicine 02/23/12 Lesley Ingram Community Health Worker 05/17/24 Rosi Castro, RICHARDSON [address] [place] [address] Machine Shop Worker 05/17/24 [facility] 07/27/24 documented as of this encounter
--- OUTSIDE RECORDS SUMMARY | 2025-01-07 10:06 | XMS_ITS | Clinical Summary ---
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 60 patch 3 05/23/20 24 Active HYDROmorphone (Dilaudid) 4 MG tabletIndication s:Neck [...] Active Blood Pressure Monitoring (Blood Pressure Cuff) misc Use daily as prescribed 1 each 09/07/20 24 Active lisinopril (Prinivil) 10 MG tablet Take 1 tablet (10 mg) by mouth Once per day. 90 tablet 3 09/07/20 24 2024 Active acetaminophen (Tylenol 8 Hour) 650 MG [...] DAILY 270 capsule 3 10/09/20 24 Active Ascorbic Acid (vitamin C) 1000 [...] FOR PAIN 30 tablet 12/11/19 25 Active baclofen (Lioresal) 10 MG tabletIndication s:Muscle spasm TAKE ONE TABLET THREE TIMES DAILY IN THE MORNING, AT NOON, AND AT BEDTIME NEEDED FOR MUSCLE SPASMS 60 tablet 3 12/13/19 25 Active hydrOXYzine HCl (Atarax) 50 MG tabletIndication s:Anxiety disorder, unspecified type TAKE ONE TABLET EVERY 6 HOURS NEEDED FOR ANXIETY 60 tablet 3 12/14/19 25 Active venlafaxine XR (Effexor XR) 75 MG 24 hr capsule TAKE ONE CAPSULE DAILY 30 capsule 3 12/15/19 25 Active ARIPiprazole (Abilify) 2 MG tablet TAKE ONE TABLET BY MOUTH ONCE DAILY 30 tablet 1 12/29/19 25 Active venlafaxine XR (Effexor XR) 75 MG 24 hr capsule Take 1 capsule (75 mg) by mouth Once per day. 30 capsule 3 05/23/20 24 2024 Discontinued hydrOXYzine HCl (Atarax) 50 MG tabletIndication s:Anxiety disorder, unspecified type Take 1 tablet (50 mg) by mouth every 6 (six) hours if needed for anxiety. 60 tablet 3 09/14/20 24 2024 Discontinued baclofen (Lioresal) 10 MG tabletIndication s:Muscle spasm TAKE ONE TABLET THREE TIMES DAILY IN THE MORNING, AT NOON, AND AT BEDTIME NEEDED FOR MUSCLE SPASMS 60 tablet 3 09/27/20 24 2024 Discontinued(R eorder (will not trigger notification to Pharmacy)) naproxen (Naprosyn) 500 MG tabletIndication s:Closed supracondylar fracture of right humerus with routine healing TAKE ONE TABLET TWICE DAILY IN THE MORNING AND AT BEDTIME WITH FOOD NEEDED FOR PAIN 30 tablet 10/24/20 24 2024 Discontinued(R eorder (will not trigger notification to Pharmacy)) ARIPiprazole (Abilify) 2 MG tablet TAKE ONE TABLET BY MOUTH ONCE DAILY 30 tablet 1 11/02/20 24 2024 Discontinued Active Problems Problem Noted Date Diagnosed Date Thyrotoxicosis with thyrotoxic crisis 09/07/2024 Assessment & Plan (09/07/2024 10:07 PM EDT): On propranolol + Methimazole, fu by [facility] endocrinology. We'll get OV notes sp hospital [...] History of stroke with residual deficit 05/23/20 Chronic indwelling Covarrubias catheter 05/23/2024 History of cervical discectomy 04/13/2024 Spinal stenosis, cervical region 03/23/2024 Fusion of spine, cervical region 03/23/2024 Need for assistance with personal care PTSD (post-traumatic stress disorder) 10/22/2023 Assessment & [...] no appointment has been made. Currently under /[facility] care to assist with SDOH needs. [...] MH services received in the past with [facility], currently she's not satisfied with [facility]. Pt opted for same-day appointments with [facility] (information given. Cheryl screened positive for [...] intervention , [facility], and Patient to reach out to [facility] as needed Pt prefers to be self-referred for OP individual therapy and psychiatry to the [facility] programs. Pt was offered external referral; clinician informed about wait times and options to receive MH services through [facility] intake. Assessment & Plan (03/09/2024 3:06 [...] no appointment has been made. Currently under /[facility] care to assist with SDOH needs. [...] MH services received in the past with [facility], currently she's not satisfied with [facility]. Pt opted for same-day appointments with [facility] (information given. Cherly screened positive for SDOH and was offered [...] intervention , Patient to reach out to [facility] team as needed, and Patient to reach out to [facility] as needed Pt prefers to be self-referred for OP individual therapy and psychiatry to the [facility] programs. Pt was offered external referral; clinician informed about wait times and options to receive MH services through [facility] intake. Assessment & Plan (10/26/2023 10:38 AM EST): PLAN: Continue with current services (defined as services in the past 12 months) , Behavioral Health Integration Plan Patient Self Plan Patient to reach out to [facility] team as needed, Patient to engage in OP therapy , and Patient to follow-up with external team, clinician to reach our to current therapist for Cheryl at [facility] to support process of reconnecting with [...] stroke in 05/2024). Pt was self-referred to [facility] programs, but reports no appointment has been made. Currently under [facility] care to assist with SDOH needs. Lack [...] MH services received in the past with [facility], currently she's not satisfied with [facility]. Pt opted for same-day appointments with [facility] (information given. Cheryl screened positive for [...] intervention , Patient to [facility], and Patient to reach out to [facility] as needed Pt prefers to be self-referred for OP individual therapy and psychiatry to the [facility] programs. Pt was offered external referral; clinician informed about wait times and options to receive MH services through [facility] intake. Resolved Problems Problem Noted Date [...] 10:16 AM EST): Wants to fu with [facility] Dr Jj instead of [facility], referral sent. Continue OT by [facility], needs evaluation for mobility and independence. Ibuprofen 800 mg bid +lidocaine patch. Can use diclofenac gel Prn FU w PCP Assessment & Plan (10/29/2022 2:51 PM EST): FU with [facility] next week Continue on the sling Rx [...] substances or ETOH FU w PCP in Cerebrovascular disease 04/09/201611/09 Severe obesity 04/09/2016 11/27/2022 Steatosis of liver 04/09/2016 3 Encounters Date Type Department Care Team Description 12/29/2024 Refill [facility] [address] [place] [address] Moira Chau MD 12/27/2024 Refill [facility] [address] [place] [address] Aliza Paul DO Other chronic pain 12/27/2024 Telephone [facility] [address] [place] [address] Aliza Paul DO Appointment Request; Hospital Follow-up 12/17/2024 Orders Only [facility] [address] [place] [address] Aliza Paul DO Essential hypertension (Primary Dx); Major depression, recurrent, chronic (CMS/HCC); History of hemorrhagic cerebrovascular accident (CVA) with residual deficit 12/15/2024 Telephone [facility] [address] [place] [address] Melo Martinez, PharmD 12/15/2024 Refill [facility] [address] [place] [address] Aliza Paul DO 12/14/2024 Refill [facility] [address] [place] [address] Aliza Paul DO Anxiety disorder, unspecified type 12/13/2024 Patient Outreach [facility] [address] [place] [address] Aliza Paul DO Care Coordination ([facility] outreach for SDOH PT-1 and food needs-referral completed /) 12/13/2024 Refill [facility] [address] [place] [address] Aliza Paul DO Muscle spasm 12/12/2024 Telephone [facility] [address] [place] [address] Aliza Paul DO PT1 12/11/2024 Patient Outreach [facility] [address] [place] [address] Aliza Paul DO Transition Of Care (Tcm) 12/11/2024 Patient Outreach [facility] [address] [place] [address] Aliza Paul DO Care Coordination ([facility] outreach for SDOH PT-1 and food needs-referral completed /) 12/11/2024 Refill [facility] [place] [address] Aliza Paul DO Closed supracondylar fracture of right humerus with routine healing 12/11/2024 Telephone [facility] [address] [facility] [place] [address] Aliza Paul, PT-1 12/08/2024 Orders Only GENERIC EXTERNAL DATA DEPARTMENT Provider, Generic External Data 12/06/2024 Telephone [facility] [place] [address] Aliza Paul, No Show 12/06/2024 Telephone [facility] [place] [address] Aliza Paul, [address] Medical (Lube steril packets, straight tip urinary catheter, covarrubias latex catheter, bedside bags, insertion trays) 12/06/2024 Patient Outreach [facility] [place] [address] Aliza Paul DO Transition Of Care (Tcm) 11/28/2024 Patient Outreach [facility] [place] [address] Aliza Paul DO Transition Of Care (Tcm) (F- scheduled -SDNC unable to complete. ) 11/23/2024 Orders Only GENERIC EXTERNAL DATA DEPARTMENT Provider, Generic External Data 11/20/2024 Telephone [facility] [place] [address] Aliza Paul DO Nurse Triage 11/17/2024 Telephone [facility] [place] [address] Aliza Paul DO Nurse Triage 11/07/2024 Telephone [facility] [place] [address] Aliza Paul, 11/06/2024 Telephone [facility] [place] [address] Aliza Paul, Referral 11/02/2024 Refill [facility] [place] [address] Delmis Cat MD 11/02/2024 Patient Outreach [facility] [address] [place] [phone] Nerissa Robertson, acetaldehyde converter operator Of Care (Tcm) 10/31/2024 Orders Only GENERIC EXTERNAL DATA DEPARTMENT Provider, Generic External Data 10/26/[address] [address] Aliza Paul DO Nurse Triage 10/23/2024 Refill [facility] [address] [place] [address] Aliza Paul DO Closed supracondylar fracture of right humerus with routine healing 10/19/2024 Patient Outreach [address] [address] Aliza Paul DO Care Coordination (CH[facility] outreach for SDOH PT-1 and food needs-referral completed /) 10/19/[address] [address] Aliza Paul DO PT-1 10/19/[address] [address] Aliza Paul DO Other chronic pain 10/18/[address] [address] Talya Scherer, PharmD 10/17/[address] [address] Aliza Paul DO FYI 10/13/[address] [address] Aliza Paul DO Medication Question from Last 3 Months Immunizations Name Administration [...] Description 01/11/2025 2:00 PM EST Office Visit [facility] [address] [place] [address] Moira Chau MD [address] [place] [address] 02/08/2025 3:00 PM EDT Office Visit [facility] [address] [place] [address] Kimberly Gonzalez, RIYA [address] [place] [address] Health Maintenance Due Date Last Done Comments [...] time period is included. Color Urine Yellow [facility] Appearance Urine Turbid [facility] PH >=9.0 5.0 - 9.0 [facility] Glucose Urine UA Negative Negative mg/dL [facility] Urine Blood Large (3+)(A) Negative [facility] Specific [place] - Urine 1.020 1.005 - 1.025 [facility] Urine Protein 100 (2+)(A) Neg-Trace mg/dL [facility] Urine Ketones Negative Negative mg/dL [facility] Nitrite Urine Negative Negative [facility] Leukocyte Esterase Urine Moderate (2+)(A) Negative [facility] RBC Urine 11-20(A) 0 - 2 /HPF [facility] Urine WBC 6-10 0 - 5 /HPF [facility] Urine Squamous Epithelial Cell 3-5 0 - 2 /HPF [facility] Other Crystals Urine Present [facility] Comment:TRIPLE PHOSPHATE NOT ED Urine Bacteria 2+ None Seen [facility] Hyaline Casts, Urine 0-2 0 - 2 /LPF [facility] 12/08/2024 1:37 PM EST 12/08/2024 1:40 PM EST Narrative [facility] - 12/08/2024 2:03 PM EST [id number], [place] Generic External Data Provider LAB URINE ORDERAB LES Final Result Performing Organization Address [facility] de Phone Number [facility] [address] [place] [phone] * High Sensitivity Troponin I (12/08/2024 11:48 AM EST) Pathologist [facility] TROPONIN I HIGH SENSITIVITY 4.4 <3.5 - 17.0 ng/L [facility] Comment:The [place] high sens itivity Troponin-I results should beused in conjunction with other diagnostic information suchas ECG, clinical observations and information, and patientsymptoms to aid in the diagnosis of [place]. 12/08/2024 11:4 8 AM EST 12/08/2024 11:50 AM EST us Generic External Data Provider LAB BLOOD ORDERAB LES Final Result Performing Organization Address [facility] de Phone Number [facility] [address] [place] [phone] * (ABNORMAL) CBC auto differential (12/08/2024 11:48 AM EST) Pathologist [facility] White Blood Count 10.6 4.8 - 10.8 X10*3/uL [facility] Red Blood Count 5.36 4.20 - 5.50 X10*6/uL [facility] Hemoglobin 14.3 12.0 - 16.0 g/dl [facility] Hematocrit 42.6 37.0 - 47.0 % [facility] Mean Corpuscular Volume 79.5(L) 80.0 - 98.0 fL [facility] Mean Corpuscular Hemoglobin 26.7(L) 27.0 - 33.0 pg [facility] Mean Corpuscular HGB Conc 33.6 31.0 - 35.0 g/dl [facility] Red Cell Distribution Width 13.5 11.0 - 16.0 % [facility] Platelet Count 341 160 - 400 X10*3/uL [facility] Mean Platelet Volume 9.3(L) 9.4 - 12.3 fL [facility] Neutrophils Percent Auto 60.2 45 - 73 % [facility] Imm Gran Pct Auto 0.3 0.0 - 0.4 % [facility] Lymphocytes Percent Auto 28.0 20 - 40 % [facility] Monocytes Percent Auto 7.3 2 - 11 % [facility] Eosinophils Percent Auto 3.5 0 - 4 % [facility] Basophils Percent Auto 0.7 0 - 2 % [facility] NRBC Pct Auto 0.0 0.0 - 0.2 /100WBC [facility] Neutrophils Absolute Auto 6.4 2.0 - 8.3 x10*3/uL [facility] Imm Gran Abs Auto 0.03 0.00 - 0.03 X10*3/uL [facility] Lymphocytes Absolute Auto 3.0 1.2 - 4.9 X10*3/uL [facility] Monocytes Absolute Auto 0.8 0.1 - 1.2 X10*3/uL [facility] Eosinophils Absolute Auto 0.4 0.0 - 0.4 X10*3/uL [facility] Basophils Absolute Auto 0.1 0.0 - 0.2 X10*3/uL [facility] NRBC Abs Auto 0.000 0.0 - 0.012 X10*3/uL [facility] 12/08/2024 11:4 8 AM EST 12/08/2024 11:50 AM EST us Generic External Data Provider LAB BLOOD ORDERAB LES Final Result [facility] [address] [place] [phone] * (ABNORMAL) B Type Natriuretic Peptide (BNP) (12/08/2024 11:48 AM EST) B Type Natriuretic Peptide 107(H) <100 pg/mL [facility] Comment:For those patients w ho are being treated with Natrecor(nesiritide, recombinant BNP), BNP testing should beperformed at least two hours post treatment in order toensure that only endogenous levels of BNP are detected. 12/08/2024 11:4 8 AM EST 12/08/2024 11:50 AM EST Generic External Data Provider LAB BLOOD ORDERAB LES Final Result Performing Organization Address [facility]/ZIP Co de Phone Number [facility] [address] [place] [phone] * Magnesium (12/08/2024 11:48 AM EST) Pathologist [facility] Magnesium 1.8 1.6 - 2.6 mg/dL [facility] 12/08/2024 11:4 8 AM EST 12/08/2024 11:50 AM EST Generic External Data Provider LAB BLOOD ORDERAB LES Final Result Performing Organization Address [facility] de Phone Number [facility] [address] [place] [phone] * Hepatic Function Panel (12/08/2024 11:48 AM EST) Pathologist [facility] Bilirubin, Total 0.5 0.0 - 1.0 mg/dL [facility] Bilirubin, Direct 0.2 0.0 - 0.5 mg/dL [facility] Aspartate Amino Transferase 12 5 - 31 U/L [facility] Alanine Aminotransferase 12 0 - 31 U/L [facility] Total Protein 7.2 6.5 - 8.0 g/dL [facility] Albumin Level 3.8 3.5 - 5.0 g/dL [facility] Alkaline Phosphatase 84 39 - 117 U/L [facility] 12/08/2024 11:4 8 AM EST 12/08/2024 11:50 AM EST us Generic External Data Provider LAB BLOOD ORDERAB LES Final Result Performing Organization Address City/[facility]/ZIP Co de Phone Number [facility] [address] [place] [phone] * (ABNORMAL) Basic Metabolic Panel (12/08/2024 11:48 AM EST) Sodium 142 135 - 145 mmol/L [facility] Potassium 3.4 3.3 - 5.1 mmol/L [facility] Chloride 110(H) 96 - 108 mmol/L [facility] Carbon Dioxide 24 22 - 29 mmol/L [facility] Anion Gap 11(L) 12 - 20 [facility] Urea Nitrogen (BUN) 15 9 - 16 mg/dL [facility] Creatinine, Serum 0.70 0.5 - 1.4 mg/dL [facility] Creatinine Clr Calc Pharmacy 89.2 [facility] Comment:Provided height and weight: 160.02 cm,84.6 kg.eGFR (calculated from the MDRD study equation) and eCrCl(calculated from the Cockcroft-Gault equation) are based ondifferent parameters and may not yield comparable results.If eCrCl result is absurd, please check patient'sheight/weight. Estimated Glomerular Filt Rate >60 [facility] Comment:Chronic Kidney Disea se: Estimated GFR < 60 mL/min/1.56f2Hwujvs Kidney Disease: Estimated GFR < 15 mL/min/1.73m2 Glucose 104 60 - 115 mg/dL [facility] Calcium 9.9 8.4 - 10.2 mg/dL [facility] 12/08/2024 11:4 8 AM EST 12/08/2024 11:50 AM EST us Generic External Data Provider LAB BLOOD ORDERAB LES Final Result Performing Organization Address City/[facility]/ZIP Co de Phone Number [facility] [address] [place] [phone] * (ABNORMAL) SARS-CoV-2 RNA, Influenza A/B, and RSV RNA, Ql NAAT (12/08/2024 11:39 AM EST) Influenza A PCR NEGATIVE Negative [facility] Influenza B PCR NEGATIVE Negative [facility] Resp Syncy Virus RNA Qual PCR POSITIVE(A) Negative [facility] SARS COV2 PCR NEGATIVE Negative [facility] Comment:All test results mus t be [...] use by authorized laboratories.Testing performed on the via680 GeneXpert utilizingreal-time RT-PCR.All SARS CoV2 and positive influenza A/B results arereported to [facility]. 12/08/2024 11:3 9 AM EST 12/08/2024 11:50 AM EST us Generic External Data Provider LAB MICROBIOLOGY - GENERAL ORDERABLES Final Result [facility] [address] [place] [phone] * XR Chest 1 View (12/08/2024 11:25 AM EST) Anatomical Region Laterality Modality Chest Radiographic Nidia ging 12/08/2024 11:2 5 AM EST Narrative 12/08/2024 12:08 PM EST ? [facility] ?[address] ?[place] [address] ?XRay Report ? Signed ? Patient: Didato,Cheryl A ?MR#: [id number] ?? 0 ? : 1965 ?Acct:[id number] ? Age/Sex: 59 / F ?ADM Date: /31/25 ? Loc: HO.ED ? Attending Dr: ? Ordering Physician: Suzy Frye DO ?? Date of Service: 12/08/24 ?? Procedure(s): XR chest 1V ?? Accession Number(s): [id number] ? cc: Suzy Frye DO; Aliza Paul [...] DD/ 1125 ? TD/TT: 12/08/24 1155 ? Rn Field Case Manager: ? Procedure Note Dev, Image - 12/08/2024 [place] [address] XRay Report Signed Patient: Cheryl Garcia AMR#: [id number] 0 : 1965Acct:[id number] Age/Sex: 59 / FADM Date: 12/08/24 Loc: HO.ED Attending Dr: Ordering Physician: Suzy Frye DO Date of Service: 12/08/24 Procedure(s): XR chest 1V Accession Number(s): [id number] cc: Suzy Frye DO; Aliza Paul DO [...] 12/08/24 1205 DD/ 1125 TD/TT: 12/08/24 1155 Rn Field Case Manager: [facility] External Provider IMG XR PROCEDURES Final Result * Culture, Urine, Routine (12/08/2024 12:00 AM EST) Only the most recent of2 resultswithin the time period is included. Urine Urine specimen obtained by clean catch procedure / Unknown 12/08/2024 12/08/2024 Comment:[facility] - 12/11/2024 8:27 AM EST Proteus mirabilis Quant > 100,000 cfu/mL Proteus mirabilis: Ampicillin <=2(S) Proteus mirabilis: Cefazolin (Urine) 4(S) Proteus mirabil[facility]: Cefepime <=0.12(S) Proteus mir[facility]: Ceftriaxone <=0.25(S) Prote[facility] mir[facility]: Ciprofloxacin <=0.06(S) Prote[facility] mir[facility]: Gentamicin <=1(S) Prote[facility]: Nitrofurantoin 256(R) Proteus mirabil[facility]: Trimethoprim/Sulfamethoxazole <=20(S) Specimen Source: Urine clean catch Generic External Data Provider LAB MICROBIOLOGY - GENERAL ORDERABLES Final Result [facility] [address] [place] [phone] * CT Cervical Spine w/o Contrast (12/05/2024 3:18 PM EST) Anatomical Region Laterality Modality Spine, C-spine Computed Tomogra phy 12/05/2024 3:18 PM EST Narrative 12/05/2024 4:44 PM EST ? [facility] ?[address] ?[place], [place] [address] ? CT Scan Report ? Signed ? Patient: Didato,Cheryl A ?MR#: [id number] ?? 0 ? : 1965 ?Acct:[id number] ? Age/Sex: 59 / F ?ADM Date: 12/05/24 ? Loc: HO.ED ? Attending Dr: ? Ordering Physician: Candice Hastings ?? Date of Service: 12/05/24 ?? Procedure(s): CT cervical spine wo IV con ?? Accession Number(s): [id number] ? cc: Aliza Paul DO; Candice Hastings ? Report Number: ?? [id number]: Total DLP = 1124.00 mGy-cm ?? EXAMINATION: [...] DD/ 1518 ? TD/TT: 12/05/24 1544 ? Rn Field Case Manager: ? Procedure Note Dev, Rian - 12/05/[address] [place] [address] [address] Scan Report Signed Patient: Cheryl Garcia AMR#: [id number] 0 : 1965Acct:[id number] Age/Sex: 59 / FADM Date: 12/05/24 Loc: HO.ED Attending Dr: Ordering Physician: Candice Hastings Date of Service: 12/05/24 Procedure(s): CT cervical spine wo IV con Accession Number(s): [id number] cc: Aliza Paul DO; Candice Hastings Report Number: [id number]: Total DLP = 1124.00 mGy-cm EXAMINATION: CT [...] Demetrio Valverde MD 12/05/2024 04:41 PM EST Dictated By: Demetrio Valverde MD Signed By: <Electronically signed by Demetrio Valverde MD in OV> 12/05/24 1641 DD/ 1518 TD/TT: 12/05/24 1544 Rn Field Case Manager: [facility] External Provider IMG CT PROCEDURES Final Result * XR Ribs 3 Views Right with Chest 1 View (12/05/2024 2:03 PM EST) Anatomical Region Laterality Modality Radiographic Nidia ging 12/05/2024 2:03 PM EST Narrative 12/05/2024 3:22 PM EST ? [facility] ?[address] ?[place] [address] ?XRay Report ? Signed ? Patient: Didato,Cheryl A ?MR#: [id number] ?? 0 ? : 1965 ?Acct:[id number] ? Age/Sex: 59 / F ?ADM Date: 12/05/24 ? Loc: HO.ED ? Attending Dr: ? Ordering Physician: Candice Hastings ?? Date of Service: 12/05/24 ?? Procedure(s): XR ribs RT min 3V w CXR1V ?? Accession Number(s): [id number] ? cc: Aliza Paul DO; Candice Hastings [...] DD/ 1403 ? TD/TT: 12/05/24 1450 ? Rn Field Case Manager: ? Procedure Note Dev, Image - 12/05/[address] [address] XRay Report Signed Patient: Cheryl Garcia AMR#: [id number] 0 : 1965Acct:[id number] Age/Sex: 59 / FADM Date: 12/05/24 Loc: HO.ED Attending Dr: Ordering Physician: Candice Hastings Date of Service: 12/05/24 Procedure(s): XR ribs RT min 3V w CXR1V Accession Number(s): [id number] cc: Aliza Paul DO; Candice Hastings EXAMINATION: [...] 12/05/24 1519 DD/ 1403 TD/TT: 12/05/24 1450 Rn Field Case Manager: [facility] External Provider IMG XR PROCEDURES Final Result * CT Head w/o Contrast (12/05/2024 2:03 PM EST) Anatomical Region Laterality Modality Head, Neck Computed Tomogra phy 12/05/2024 2:03 PM EST Narrative 12/05/2024 4:36 PM EST ? [facility] ?[address] ?[place] [address] ? CT Scan Report ? Signed ? Patient: Didato,Cheryl A ?MR#: [id number] ?? 0 ? : 1965 ?Acct:[id number] ? Age/Sex: 59 / F ?ADM Date: 12/05/24 ? Loc: HO.ED ? Attending Dr: ? Ordering Physician: Candice Hastings ?? Date of Service: 12/05/24 ?? Procedure(s): CT head/brain wo IV con ?? Accession Number(s): [id number] ? cc: Aliza Paul DO; Candice Hastings ? Report Number: ?? [id number]: Total DLP = ?0.00 mGy-cm ?? EXAMINATION: [...] DD/ 1403 ? TD/TT: 12/05/24 1544 ? Rn Field Case Manager: ? Procedure Note Rian Méndez - 12/05/[address] [place] [address] [address] Scan Report Signed Patient: Cheryl Garcia AMR#: [id number] 0 : 1965Acct:[id number] Age/Sex: 59 / FADM Date: 12/05/24 Loc: HO.ED Attending Dr: Ordering Physician: Candice Hastings Date of Service: 12/05/24 Procedure(s): CT head/brain wo IV con Accession Number(s): [id number] cc: Aliza Paul DO; Candice Hastings Report Number: [id number]: Total DLP = 0.00 mGy-cm EXAMINATION: CT [...] 12/05/24 1634 DD/ 1403 TD/TT: 12/05/24 1544 Rn Field Case Manager: [facility] External Provider IMG CT PROCEDURES Final Result * XR Hand 3+ Views Left (12/05/2024 2:03 PM EST) Anatomical Region Laterality Modality Upper Extremities, Hand Left Radiogra phic Imaging 12/05/2024 2:03 PM EST Narrative 12/05/2024 3:18 PM EST ? [facility] ?[address] ?[place] [address] ?XRay Report ? Signed ? Patient: Didato,Cheryl A ?MR#: [id number] ?? 0 ? : 1965 ?Acct:[id number] ? Age/Sex: 59 / F ?ADM Date: 01/28/25 ? Loc: HO.ED ? Attending Dr: ? Ordering Physician: Candice Hastings ?? Date of Service: 12/05/24 ?? Procedure(s): XR hand LT min 3V ?? Accession Number(s): [id number] ? cc: Aliza Paul DO; Candice Hastings [...] ??12/05/2024 03:15 PM EST RP ?? Workstation: [id number] ? Dictated By: ?Demetrio Valverde MD ? Signed By: ?<Electronically signed by Demetrio Valverde MD in OV> ?12/05/24 1515 ? DD/ 1403 ? TD/TT: 12/05/24 1450 ? Rn Field Case Manager: ? Procedure Note Rian Méndez - 12/05/[address] [address] XRay Report Signed Patient: Cheryl Garcia [facility]#: [id number] 0 : 1965Acct:[id number] Age/Sex: 59 / FADM Date: 12/05/24 Loc: HO.ED Attending Dr: Ordering Physician: Candice Hastings Date of Service: 12/05/24 Procedure(s): XR hand LT min 3V Accession Number(s): [id number] cc: Aliza Paul DO; Candice Hastings EXAMINATION: [...] 12/05/24 1515 DD/ 1403 TD/TT: 12/05/24 1450 Rn Field Case Manager: [facility] External Provider IMG XR PROCEDURES Final Result * XR Shoulder 2+ Views Right (12/05/2024 2:03 PM EST) Anatomical Region Laterality Modality Upper Extremities, Shoulder Right Radi ographic Imaging 12/05/2024 2:03 PM EST Narrative 12/05/2024 3:24 PM EST ? [place] [facility] ?[address] ?[place] [address] ?XRay Report ? Signed ? Patient: Didato,Cheryl A ?MR#: [id number] ?? 0 ? : 1965 ?Acct:[id number] ? Age/Sex: 59 / F ?ADM Date: 12/05/24 ? Loc: HO.ED ? Attending Dr: ? Ordering Physician: Candice Hastings ?? Date of Service: 12/05/24 ?? Procedure(s): XR shoulder RT min 2V ?? Accession Number(s): [id number] ? cc: Aliza Paul DO; Candice Hastings [...] ??12/05/2024 03:21 PM EST RP ?? Workstation: [id number] ? Dictated By: ?Demetrio Valverde MD ? Signed By: ?<Electronically signed by Demetrio Valverde MD in OV> ?12/05/24 1521 ? DD/ 1403 ? TD/TT: 12/05/24 1450 ? Rn Field Case Manager: ? Procedure Note Rian Méndez - 12/05/[address] [address] XRay Report Signed Patient: Cheryl Garcia AMR#: [id number] 0 : 1965Acct:[id number] Age/Sex: 59 / FADM Date: 12/05/24 Loc: HO.ED Attending Dr: Ordering Physician: Candice Hastings Date of Service: 12/05/24 Procedure(s): XR shoulder RT min 2V Accession Number(s): [id number] cc: Aliza Paul DO; Candice Hastings EXAMINATION: [...] 12/05/24 1521 DD/ 1403 TD/TT: 12/05/24 1450 Rn Field Case Manager: [facility] External Provider IMG XR PROCEDURES Final Result * (ABNORMAL) Drug Monitoring, Panel 1, Screen, Urine (11/23/2024 12:48 PM EST) Opiate Screen Urine Not Detected Not Detect [facility] Comment:Opiate cut-off is 30 0 ng/mL.Positive results are unconfirmed and should not be used fornon-medical purposes. Barbiturates, Urine Not Detected Not Detect [facility] Comment:Barbiturate cut-off is 200 ng/mL.Positive results are unconfirmed and should not be used fornon-medical purposes. Phencyclidine Screen Urine Not Detected Not Detect [facility] Comment:Phencyclidine cut-of f is 25 ng/mL.Positive results are unconfirmed and should not be used fornon-medical purposes. Amphetamine Screen Urine Not Detected Not Detect [facility] Comment:Amphetamine cut-off is 1000 ng/mL.Positive results are unconfirmed and should not be used fornon-medical purposes. Benzodiazepines Screen Urine Not Detected Not Detect [facility] Comment:Benzodiazepine cut-o ff is 200 ng/mL.Positive results are unconfirmed and should not be used fornon-medical purposes. Cocaine Screen Urine POSITIVE(A) Not Detect [facility] Comment:Cocaine cut-off is 3 00 ng/mL.Positive results are unconfirmed and should not be used fornon-medical purposes. Cannabinoid Screen Urine POSITIVE(A) Not Detect [facility] Comment:Cannabinoid cut-off is 50 ng/mL.Positive results are unconfirmed and should not be used fornon-medical purposes. Methadone Screen, Urine Not Detected Not Detect ng/mL [facility] Comment:Methadone cut-off is 300 ng/mL.Positive results are unconfirmed and should not be used fornon-medical purposes. FENTANYL URINE Not Detected Not Detect [facility] Comment:Fentanyl cut-off is 1 ng/mL.Positive results are unconfirmed and should not be used fornon-medical purposes. Oxycodone Urine Screen Not Detected Not Detect ng/mL [facility] Comment:Oxycodone cut-off is 100 ng/mL.Positive results are unconfirmed and should not be used fornon-medical purposes. Buprenorphine Screen Not Detected Not Detect ng/mL [facility] Comment:Buprenorphine cut-of f is 5 ng/mL.Positive results are unconfirmed and should not be used fornon-medical purposes. 11/23/2024 12:4 8 PM EST 11/23/2024 12:51 PM EST us Generic External Data Provider LAB URINE ORDERAB LES Final Result [facility] [address] [place] [address] [phone] * HEPATITIS C AB W/REFL TO HCV RNA, QN, PCR (01/28/2022 10:33 AM EDT) HEPATITIS C ANTIBODY NON-REACT [facility] NON-REACT [facility] INDEX 0.01 <1.00 [facility] Comment: ?? HCV antibody was non-reactive. There is no laboratory ?? evidence of HCV infection. ?? In most cases, no further action is required. However, if recent HCV exposure is suspected, a test for HCV RNA (test code 75924) is suggested. ?? For additional information please refer to http://NSC.Adcrowd retargeting/faq/JOC15y7 (This link is being provided for informational/ educational purposes only.) ?? 01/28/2022 10:3 3 AM EDT Aliza Paul DO HISTORICAL/NON ORDERABLE LAB S Final Result [facility] [address] [place] [address], * HIV 1/2 ANTIGEN/ANTIBODY,FOURTH GENERATION W/RFL (01/28/2022 10:33 AM EDT) HIV-1/2 ANTIGEN AND ANTIBODIES, 4TH GENERATION W/ REFLEX NON-REACT ERNESTO NON-REACT [facility]NESTO [facility] Comment: HIV-1 antigen and HIV-1/HIV-2 [...] ? For additional information please refer to http://NSC.Adcrowd retargeting/faq/ROU841 (This link is being provided for informational/ educational purposes only.) ? The performance of this assay has not been clinically validated in patients less than 2 years old. ?? 01/28/2022 10:3 3 AM EDT Aliza Beverly DO LAB BLOOD ORDERABLES Final R esult Performing Organization Address [facility]/ZIP Co de Phone Number [facility] [address] * (ABNORMAL) LIPID PANEL, STANDARD (01/28/2022 [...] ?? Albert WHITTINGTON et al. OVIDIO. 2013;310(19): 4661-5792 ?? (http://education.Retsly.[employer]/faq/GGA598) Non-HDL Cholesterol 170(H) <130 mg/dL (calc) [facility] Comment: For patients with diabetes plus 1 major ASCVD risk ?? factor, treating to a non-HDL-C goal of <100 mg/dL ?? (LDL-C of <70 mg/dL) is considered a therapeutic ?? option. Triglycerides 242(H) <150 mg/dL [facility] Comment: ?? If a non-fasting specimen was collected, consider repeat triglyceride testing on a fasting specimen if clinically indicated. ?? Jaime et al. J. of Clin. Lipidol. 2015;9:129-169. ?? 01/28/2022 10:3 3 AM EDT Aliza Beverly DO LAB BLOOD ORDERABLES Final R esult Performing Organization Address [facility]/ZIP Co de Phone Number [facility] [address] [place] [address], * HPV E6/E7 RFLX ROMA 16 18/45 (12/10/2017 12:51 PM EST) ADDITIONAL TESTING Not indicated () [facility] Comment: Test Performed by Karel Silva, [facility], [address] [place] [id number] Ulises Silva M.D., Ph.D., Director of Laboratories , [facility] [id number] HPV 16 RNA Test not performed [facility] HPV 18/45 RNA Test not performed [facility] HPV mRNA E6/E7 Not Detected NOT DETECTED [facility] Comment: This test was performed using the APTIMA(R) HPV Assay ([employer] This assay detects E6/E7 viral messenger RNA (mRNA) from 14 high-risk HPV types (16,18,31,33,35,39,45,51, 52,56,58,59,66,68). For additional information please refer to: http://education.Adcrowd retargeting/faq/JJE795f9 (This link is being provided for informational/ educational purposes only.) Please note: ??Effective 07/20/2016, HPV testing will be performed using [facility]'s APTIMA test which targets mRNA. Detecting mRNA instead of DNA, as in older methods, offers significant improvements in specificity. 12/10/2017 12:5 1 PM EST us Aliza Paul DO HISTORICAL/NON ORDERABLE LAB S Final Result [facility] [address] from Last 3 Months or Most Recently Relevant to Health Maintenance Insurance [facility] C[place] ST[place] AD[place] Care Teams Potato Chip Packaging Machine Operator Relationship Specialty Start Date End Date Aliza Paul DO [address] [place] [address] PCP - General Family Medicine 02/23/12 Lesley Ingram Community Health Worker 05/17/24 Rosi Castro RN [address] [place] [address] Set Up Mechanic Coating Machines 05/17/[address] [facility] 07/27/24
--- OUTSIDE RECORDS SUMMARY | 2025-01-07 10:06 | XMS_ITS | Encounter Summary ---
Author Organization [employer] Address [address] [place] [address] 7 [place] [address] Care Team Providers Care Chief Concierge Name Role Phone Aliza Paul DO Primary Care Provider [phone] Lesley Ingram Unavailable Unavailable Rosi Castro RN Unavailable [phone] Reason for Visit * Reason Comments Med Refill Encounter Details Date Type Department Care Team ([facility] st Contact Info) Description 08/18/2024 Refill [facility] [address] [place], [place] [phone] Aliza Paul DO [address] [place] [address] Closed supracondylar fracture of right humerus with [...] Description 01/11/2025 2:00 PM EST Office Visit [facility] MED[facility]INE [address] [place] [address] Moira Chau MD [address] [place] [address] 02/08/2025 3:00 PM EDT Office Visit [facility] OPTOMETRY [address] [place] [address] Kimberly Gonzalez OD [address] [place] [address] documented as of this encounter Visit Diagnoses Diagnosis Closed supracondylar fracture of right humerus with routine healing documented in this encounter Additional Health Concerns Assessment Noted Time PHQ-9 Depression Total Score: 4 05/02/20 24 9:14 AM EDT documented as of this encounter Care Teams Chief Concierge Relationship Specialty Start Date End Date Aliza Paul DO [address] [place] [address] PCP - General Family Medicine 02/23/12 Lesley Ingram Community Health Worker 05/17/24 Rosi Castro RN [address] [place] [address] Staffing And Scheduling Coordinator 05/17/24 [facility] 07/27/24 documented as of this encounter
--- OUTSIDE RECORDS SUMMARY | 2025-01-07 10:06 | XMS_ITS | Encounter Summary ---
Author Organization [employer] Address [address] [place] [address] [place] [address] Care Team Providers Care C++ Professor Name Role Phone Aliza Paul DO Primary Care Provider [phone] Lesley Ingram Unavailable Unavailable Rosi Castro RN Unavailable [phone] Reason for Visit * Reason Onset Date Comments PT1 12/12/2024 Encounter Details Date Type Department Care Team ([facility] st Contact Info) Description 12/12/2024 Telephone [facility] [address] [place], [place] [phone] Aliza Paul DO [address] [place] [address] PT1 Social History Tobacco Use Types Packs/Day Years [...] encounter Miscellaneous Notes * Telephone Encounter - Ling Guido - 12/12/2024 4:00 PM EST Patient calling requesting PT1 Home Address verified: Y/N: Yes Provider name or facility name: [facility] Facility Address: [address] [place] [address] Escort needed: Y/N: Yes Do you have a wheelchair: Y/N: Yes If yes- Manual or electric: Manual Visits: 3 x a month documented in this encounter Plan of Treatment Upcoming Encounters Date Type Department Care Team (Late st Contact Info) Description 01/11/2025 2:00 PM EST Office Visit [facility] [address] [place] [address] Moira Chau MD [address] [place] [address] 02/08/2025 3:00 PM EDT Office Visit [facility] OPTOMETRY [address] [place] [address] Kimberly Gonzalez, OD [address] [place] [address] documented as of this encounter Visit Diagnoses Not on filedocumented in this encounter Additional Health Concerns Assessment Noted Time PHQ-9 Depression Total Score: 15 024 9:20 AM EDT documented as of this encounter Care Teams C++ Professor Relationship Specialty Start Date End Date Aliza Paul DO [address] [place] [address] PCP - General Family Medicine 02/23/12 Lesley Ingram Community Health Worker 05/17/24 Rosi Castro RN [address] [place] [address] Sieve Repairer 05/17/24 [facility] Care 07/27/24 documented as of this encounter
--- OUTSIDE RECORDS SUMMARY | 2025-01-07 10:06 | XMS_ITS | Encounter Summary ---
Author Organization [employer] Address [address] [place] [address] 7 [place] [address] Care Team Providers Care Detention Deputy Name Role Phone Aliza Paul DO Primary Care Provider [phone] Lesley Ingram Unavailable Unavailable Rosi Castro RN Unavailable [phone] Encounter Details Date Type Department Care Team ([facility] Contact Info) Description 11/04/2022 [facility] Information Management [address] [place] [address] Aliza Paul DO [address] [place], [place] [phone] Social History Tobacco Use Types Packs/Day Years [...] Upcoming Encounters Date Type Department Care Team ([facility] Contact Info) Description 01/11/2025 2:00 PM EST Office Visit [facility] MED[facility]INE [address] [place] [address] Moira Chau MD [address] [place] [address] 02/08/2025 3:00 PM EDT Office Visit [facility] OPTOMETRY [address] [place], [place] [phone] Kimberly Gonzalez, RIYA [address] [place] [address] documented as of this encounter Visit Diagnoses Not on filedocumented in this encounter Care Teams Detention Deputy Relationship Specialty Start Date End Date Aliza Paul DO [address] [place], [place] [phone] PCP - General Family Medicine 02/23/12 Lesley Ingram Community Health Worker 05/17/24 Rosi Castro RN [address] [place] [address] Clay Roaster 05/17/[address] [facility] 07/27/24 documented as of this encounter
--- OUTSIDE RECORDS SUMMARY | 2025-01-07 10:06 | XMS_ITS | Encounter Summary ---
Author Organization [employer] Address [address] [place] [address] [place] [address] Care Team Providers Care Neurology Technician Name Role Phone Aliza Paul DO Primary Care Provider [phone] Lesley Ingram Unavailable Unavailable Rosi Castro RN Unavailable [phone] Encounter Details Date Type Department Care Team ([facility] Contact Info) Description 11/04/2022 Telephone [facility] MED[facility]INE [address] [place] [phone] Aliza Paul DO [address] [place] [address] Social History Tobacco Use Types Packs/Day Years [...] Upcoming Encounters Date Type Department Care Team ([facility] Contact Info) Description 01/11/2025 2:00 PM EST Office Visit [address] [address] Moira Chau MD [address] [place] [address] 02/08/2025 3:00 PM EDT Office Visit [facility] OPTOMETRY [address] [place] [address] Kimberly Gonzalez, OD [address] [place] [address] documented as of this encounter Visit Diagnoses Not on filedocumented in this encounter Care Teams Neurology Technician Relationship Specialty Start Date End Date Aliza Paul DO [address] [place] [address] PCP - General Family Medicine 02/23/12 Lesley Ingram Community Health Worker 05/17/24 Rosi Castro, RICHARDSON [address] [place] [address] Manager Career 05/17/24 [facility] Care 07/27/24 documented as of this encounter
--- OUTSIDE RECORDS SUMMARY | 2025-01-07 10:06 | XMS_ITS | Encounter Summary ---
Author Organization [employer] Address [address] [place] [address] 7 [place] [address] Care Team Providers Care Group Therapy Counselor Name Role Phone BeverlyAliza Primary Care Provider [phone] Lesley Ingram Unavailable Unavailable Rosi Castro RN Unavailable [phone] Reason for Visit * Reason Comments Med Refill Encounter Details Date Type Department Care Team ([facility] st Contact Info) Description 12/29/2024 Refill [facility] MED[facility]INE [address] [place] [address] Moira Chau MD [address] [place] [address] Social History Tobacco Use Types Packs/Day Years [...] Description 01/11/2025 2:00 PM EST Office Visit [facility] MEDICINE [address] [place] [address] Moira Chau MD [address] [place] [address] 02/08/2025 3:00 PM EDT Office Visit [facility] OPTOMETRY [address] [place] [address] Kimberly Gonzalez, OD [address] [place] [address] documented as of this encounter Visit Diagnoses Not on filedocumented in this encounter Additional Health Concerns Assessment Noted Time PHQ-9 Depression Total Score: 15 024 9:20 AM EDT documented as of this encounter Care Teams Group Therapy Counselor Relationship Specialty Start Date End Date Aliza Paul DO [address] [place] [address] PCP - General Family Medicine 02/23/12 Lesley Ingram Community Health Worker 05/17/24 Rosi Castro RN [address] [place] [address] Food Service Ambassador 05/17/24 [facility] 07/27/24 documented as of this encounter
--- OUTSIDE RECORDS SUMMARY | 2025-01-07 10:06 | XMS_ITS | Encounter Summary ---
Author Organization [employer] Address [address] [place] [address] [place] [address] Care Team Providers Care Command Center Officer Name Role Phone Aliza Paul DO Primary Care Provider [phone] Lesley Ingram Unavailable Unavailable Rosi Castro RN Unavailable [phone] Reason for Visit * Reason Onset Date Comments Nurse Triage 09/13/2024 Encounter Details Date Type Department Care Team ([facility] st Contact Info) Description 09/13/2024 Telephone [facility] MEDICINE [address] [place], [place] [phone] Aliza Paul DO [address] [place] [address] Nurse Triage Social History Tobacco Use Types [...] now. Pt is offered to come to [facility] which is open till 8pm today but, doesn't have transportation. Pt reports will come tomorrow to [facility] open 830am -400pm. Pt requests an uber ride for tomorrow. Uber is scheduled for 1155am product picker at Pt address for tomorrow. Pt is [...] were negative * Telephone Encounter - Merlene Cortes - 09/13/2024 2:19 PM EST Symptom: Urination Pain Outcome: Schedule a same-day appointment or talk to a nurse or provider today Reason: Caller denied all higher acuity questions The caller accepted this outcome. documented in this encounter Plan of Treatment Upcoming Encounters Date Type Department Care Team (Late st Contact Info) Description 01/11/2025 2:00 PM EST Office Visit [facility] MEDICINE [address] [place] [address] Moira Chau MD [address] [place] [address] 02/08/2025 3:00 PM EDT Office Visit [facility] OPTOMETRY [address] [place] [address] Kimberly Gonzalez, OD [address] [place] [address] documented as of this encounter Visit Diagnoses Not on filedocumented in this encounter Additional Health Concerns Assessment Noted Time PHQ-9 Depression Total Score: 15 024 9:20 AM EDT documented as of this encounter Care Teams Command Center Officer Relationship Specialty Start Date End Date Aliza Paul DO [address] [place] [address] PCP - General Family Medicine 02/23/12 Lesley Ingram Community Health Worker 05/17/24 Rosi Castro RN [address] [place] [address] Learning Support Aide 05/17/24 [facility] 07/27/24 documented as of this encounter
--- OUTSIDE RECORDS SUMMARY | 2025-01-07 10:06 | XMS_ITS | Encounter Summary ---
Author Organization [employer] Address [address] [place] [address] [place] [address] Care Team Providers Care Windows Admin Name Role Phone Aliza Paul DO Primary Care Provider [phone] Lesley Ingram Unavailable Unavailable Rosi Castro RN Unavailable [phone] Reason for Visit * Reason Onset Date Comments Medication Question 09/28/2024 Encounter Details Date Type Department Care Team ([facility] Contact Info) Description 09/28/2024 Telephone [facility] [address] [place], [place] [phone] Aliza Paul DO [address] [place] [address] Medication Question Social History Tobacco Use Types [...] 8:55 AM EST TC placed to pt [phone] in regards to below message. Pt did not answer, RN left VM requesting CB to red team nurses. Pt to f/u PRN. * Telephone Encounter - Ling Guido - 09/28/2024 4:43 PM EST Tc from pt requesting to speak to nurse regarding medication dosage. Pt also requesting [facility] appointment with PCP on 10/03. Stated anxiety while waiting on hold for PT1 transportation Contact pt at [phone] documented in this encounter Plan of Treatment Upcoming Encounters Date Type Department Care Team (Late st Contact Info) Description 01/11/2025 2:00 PM EST Office Visit [facility] [address] [place] [address] Moira Chau MD [address] [place] [address] 02/08/2025 3:00 PM EDT Office Visit [facility] OPTOMET[facility] [address] [place], [place] [phone] Kimberly Gonzalez OD [address] [place] [address] documented as of this encounter Visit Diagnoses Not on filedocumented in this encounter Additional Health Concerns Assessment Noted Time PHQ-9 Depression Total Score: 15 024 9:20 AM EDT documented as of this encounter Care Teams Windows Admin Relationship Specialty Start Date End Date Aliza Paul DO [address] [place] [address] PCP - General Family Medicine 02/23/12 Lesley Ingram Community Health Worker 05/17/24 Rosi Castro RN [address] [place] [address] Roll Up Machine Operator 05/17/24 [facility] 07/27/24 documented as of this encounter
--- OUTSIDE RECORDS SUMMARY | 2025-01-07 10:06 | XMS_ITS | Encounter Summary ---
Author Organization [employer] Address [address] [place] [address] 7 [place] [address] Care Team Providers Care Airplane Pilot Photogrammetry Name Role Phone Aliza Paul DO Primary Care Provider [phone] Lesley Ingram Unavailable Unavailable Rosi Castro RN Unavailable [phone] Reason for Referral * Consultation (Routine) - Authorized Specialty Diagnoses / Procedures Referred By Dl sanchez Referred To Contact Pharmacy Diagnoses Essential hypertension Major depression, recurrent, chronic (CMS/HCC) History of hemorrhagic cerebrovascular accident (CVA) with residual deficit Aliza Paul DO [address] [place] [address] Phone: tel: fax: Referral ID Status Reason Start Date Expiration Date Visits Requested Visits Authorized [id number] Authorized Continuity of Care 12/17/2024 12/17/2025 6 6 Encounter Details Date Type Department Care Team (Late st Contact Info) Description 12/17/2024 Orders Only [facility] [address] [place] [address] Aliza Paul DO [address] [place] [address] Essential hypertension (Primary Dx); Major depression, recurrent, chronic (CMS/HCC); History of hemorrhagic cerebrovascular accident (CVA) with residual deficit Social History Tobacco Use Types Packs/Day Years [...] 2:00 PM EST Office Visit [facility] [address] [place] [address] Moira Chau MD [address] [place] [address] 02/08/2025 3:00 PM EDT Office Visit [facility] OPTOMETRY [address] [place] [address] Kimberly Gonzalez, OD [address] [place] [address] Scheduled Referrals Name Type Priority Associated Diagnoses Orde r Schedule Referral to Pharmacy [place] Outpatient Referral Routine Essential hypertension Major depression, recurrent, chronic (CMS/HCC) History of hemorrhagic cerebrovascular accident (CVA) with residual deficit Ordered: 12/17/2024 documented as of this encounter Visit Diagnoses Diagnosis Essential hypertension- Primary Unspecified essential hypertension Major depression, recurrent, chronic (CMS/HCC) History of hemorrhagic cerebrovascular accident (CVA) with residual deficit documented in this encounter Additional Health Concerns Assessment Noted Time PHQ-9 Depression Total Score: 15 024 9:20 AM EDT documented as of this encounter Care Teams Airplane Pilot Photogrammetry Relationship Specialty Start Date End Date Aliza Paul DO [address] [place] [address] PCP - General Family Medicine 02/23/12 Lesley Ingram Community Health Worker 05/17/24 Rosi Castro, RICHARDSON [address] [place] [address] Linux Programmer 05/17/24 [email or web address] 07/27/24 documented as of this encounter
--- OUTSIDE RECORDS SUMMARY | 2025-01-07 10:06 | XMS_ITS | Encounter Summary ---
Author Organization [employer] Address [address] [place] [address] 7 [place] [address] Care Team Providers Care Bookbinding Machine Operator Name Role Phone Aliza Paul DO Primary Care Provider [phone] Lesley Ingram Unavailable Unavailable Rosi Castro RN Unavailable [phone] Encounter Details Date Type Department Care Team (Late st Contact Info) Description 05/18/2024 Telephone [facility] MEDICINE [address] [place], [place] [phone] Aliza Paul DO [address] [place], [place] [phone] Social History Tobacco Use Types Packs/Day Years [...] Description 01/11/2025 2:00 PM EST Office Visit [facility] MEDICINE [address] [place] [address] Moira Chau MD [address] [place] [address] 02/08/2025 3:00 PM EDT Office Visit [facility] OPTOMETRY [address] [place] [address] Kimberly Gonzalez OD [address] [place] [address] documented as of this encounter Visit Diagnoses Not on filedocumented in this encounter Additional Health Concerns Assessment Noted Time PHQ-9 Depression Total Score: 4 03/09/20 24 9:14 AM EDT documented as of this encounter Care Teams Bookbinding Machine Operator Relationship Specialty Start Date End Date Aliza Paul DO [address] [place] [address] PCP - General Family Medicine 02/23/12 Lesley Ingram Community Health Worker 05/17/24 Rosi Castro RN [address] [place] [address] Sandblasting Supervisor 05/17/24 [facility] 07/[facility] documented as of this encounter
--- OUTSIDE RECORDS SUMMARY | 2025-01-07 10:06 | XMS_ITS | Encounter Summary ---
Author Organization [employer] Address [address] [place] [address] [place] [address] Care Team Providers Care Soap Chipper Name Role Phone BeverlyAliza Primary Care Provider + [phone] Lesley Ingram Unavailable Unavailable Rosi Castro RN Unavailable [phone] Encounter Details Date Type Department Care Team (Late st Contact Info) Description 12/15/2024 Telephone [facility] MED[facility]INE [address] [place] [address] Melo Martinez, ChelseaD [address] [place] [address] Social History Tobacco Use Types Packs/Day Years [...] encounter Miscellaneous Notes * Telephone Encounter - Melo Martinez PharmD - 12/15/2024 12:33 PM EST meg Breaux contacted this patient for pre-visit HDF med rec and patient reported not having transportation for this upcoming appointment on 12/18/24. Patient requested assistance with planning for transportation, as they would like to come in-person. Thank you! documented in this encounter Plan of Treatment Upcoming Encounters Date Type Department Care Team (Late st Contact Info) Description 01/11/2025 2:00 PM EST Office Visit [facility] MEDICINE [address] [place] [address] Moira Chau MD [address] [place] [address] 02/08/2025 3:00 PM EDT Office Visit [facility] OPTOMETRY [address] [place], [place] [phone] Kimberly Gonzalez, RIYA [address] [place] [address] documented as of this encounter Visit Diagnoses Not on filedocumented in this encounter Additional Health Concerns Assessment Noted Time PHQ-9 Depression Total Score: 15 024 9:20 AM EDT documented as of this encounter Care Teams Soap Chipper Relationship Specialty Start Date End Date Aliza Paul DO [address] [place] [address] PCP - General Family Medicine 02/23/12 Lesley Ingram Community Health Worker 05/17/24 Rosi Castro RN [address] [place] [id number] Proof Reader 05/17/24 [facility] Care 07/27/24 documented as of this encounter
--- OUTSIDE RECORDS SUMMARY | 2025-01-07 10:06 | XMS_ITS | Encounter Summary ---
Author Organization [employer] Address [address] [place] [address] 7 [place] [address] Care Team Providers Care Oracle Apex Developer Name Role Phone Aliza Paul DO Primary Care Provider [phone] Lesley Ingram Unavailable Unavailable Rosi Castro RN Unavailable [phone] Reason for Visit * Reason Comments Med Refill Encounter Details Date Type Department Care Team ([facility] st Contact Info) Description 10/19/2024 Refill [facility] MED[facility]INE [address] [place], [place] [phone] Aliza Paul DO [address] [place] [address] Other chronic pain Social History Tobacco Use [...] Description 01/11/2025 2:00 PM EST Office Visit [facility] MED[facility] [address] [place] [address] Moira Chau MD [address] [place] [address] 02/08/2025 3:00 PM EDT Office Visit [facility] OPTOMETRY [address] [place] [address] Kimberly Gonzalez, OD [address] [place] [address] documented as of this encounter Visit Diagnoses Diagnosis Other chronic pain documented in this encounter Additional Health Concerns Assessment Noted Time PHQ-9 Depression Total Score: 15 024 9:20 AM EDT documented as of this encounter Care Teams Oracle Apex Developer Relationship Specialty Start Date End Date Aliza Pual DO [address] [place] [address] PCP - General Family Medicine 02/23/12 Lesley Ingram Community Health Worker 05/17/24 Rosi Castro RN [address] [place] [address] Linoleum Floor Installer 05/17/24 [facility] 07/27/24 documented as of this encounter
--- OUTSIDE RECORDS SUMMARY | 2025-01-07 10:06 | XMS_ITS | Encounter Summary ---
Author Organization [employer] Address [address] [place] [address] [place] [address] Care Team Providers Care Litigation Partner Name Role Phone Aliza Paul DO Primary Care Provider [phone] Lesley Ingram Unavailable Unavailable Rosi Castro RN Unavailable [phone] Reason for Visit * Reason Onset Date Comments FYI 05/15/2024 Encounter Details Date Type Department Care Team ([facility] st Contact Info) Description 05/15/2024 Telephone [facility] MEDICINE [address] [place], [place] [phone] Aliza Paul DO [address] [place] [address] FYI Social History Tobacco Use Types Packs/Day [...] be receiving home health care service with [facility] and referral was also made to 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 Pt. Declined services. FYI for HDF 05/23/24 * Telephone Encounter - Timoteo Blank - 05/15/2024 1:04 PM EDT Tc from [facility] with [facility] calling to inform they were unable to admit pt into services, Karlie stated they managed to get in contact with pt but pt gave another excuse on why she wasn't able to accept services. If any questions you can contact Karlie at [phone]. documented in this encounter Plan of Treatment Upcoming Encounters Date Type Department Care Team (Late st Contact Info) Description 01/11/2025 2:00 PM EST Office Visit [facility] MEDICINE [address] [place] [address] Moira Chau MD [address] [place] [address] 02/08/2025 3:00 PM EDT Office Visit [facility] OPTOMETRY [address] [place], [place] [phone] Kimberly Gonzalez OD [address] [place] [address] documented as of this encounter Visit Diagnoses Not on filedocumented in this encounter Additional Health Concerns Assessment Noted Time PHQ-9 Depression Total Score: 4 03/09/20 9:14 AM EDT documented as of this encounter Care Teams Litigation Partner Relationship Specialty Start Date End Date Aliza Paul DO [address] [place], [place] [phone] PCP - General Family Medicine 02/23/12 Lesley Ingram Community Health Worker 05/17/24 Rosi Castro RN [address] [place] [address] Computer Networking Instructor 05/17/24 [facility] 07/27/24 documented as of this encounter
--- OUTSIDE RECORDS SUMMARY | 2025-01-07 10:06 | XMS_ITS | Data Portability ---
Author Organization [facility] [employer] [facility] (formerly [facility]), Main Office Address [address] [facility] [place] [address] Care Team Providers Care Computer Technical Specialist Name Role Phone TAYLOR ELIAS - 2ND [...] Orders Dilaudid 4 mg tablet 2023 024 [facility] , [address] [place], [address], 17:08:30 Patient TargetsNo targets recorded. Patient InstructionsNo instructions recorded. Reason for Referral None Reported. Problems Name Problem SNOMED Code Status Onset Date Resolution Date Notes Provider Name and Address Organization Details Recorded Time Hypertens ollie emergency [id number] 104 Active 2023 Kyleigh Firtz NP [address] [facility], [address], [place], [address], [facility] [email or web address] 4 12:37:24 Headache 35306057 Active 2023 Kyleigh Fritz NP [address] [facility], [address], [place], [address], [employer] 4 12:37:35 Essential hypertens ion 47908021 Active 2023 Kyleigh Fritz NP [address] [facility], [address], [place], [address], [employer] 4 12:37:52 Chronic pain following spinal surgery Active 2023 Kyleigh Fritz NP [address] [facility], [address], [place], [address], [employer] [facility] 4 12:38:52 Leukocyto sis 307324608 Active 2023 Kyleigh Fritz NP [address] [facility], [address], [place], [address], [employer] 4 12:39:04 Retention of urine 653172002 Completed 202304/13/2024 Kiana Cassidy MD [address] [facility], [address], [place], [address], [employer] 4 15:44:08 Anxiety 88937587 Active 2023 Kyleigh Fritz NP [address] [facility], [address], [place], [address], [employer] 4 12:39:32 History of cervical discectom y 798464251220 59830 Completed 202304/13/2024 Kyleigh Fritz NP [address] [facility], [address], [place], [address], [employer] 4 13:00:38 History of hemorrhag ic cerebrova scular accident with residual deficit 326416798978 106 Active 2023 Kyleigh Fritz NP [address] [facility], [address], [place], [address], [employer] 4 13:02:54 Gastroeso phageal reflux disease 224716415 Active 2023 Kyleigh Fritz NP [address] [facility], [address], [place], [address], [employer] [facility] 4 13:04:09 Retention of urine 688399070 Active 2023 Kiana Cassidy MD [address] [facility], [address], [place], [address] , [facility] [email or web address] 4 15:44:08 Urinary tract infectiou s disease 82081913 Active 2023 Kyleigh Fritz NP [address] [facility], [address], [place], [address] , [facility] [email or web address] 4 13:32:30 Problem Notes None recorded. Medical [...] Updated DateTime 4 160.02 cm 32.6 kg/m2 74210 g 90 /min 18 /min 97.2 [degF] 98 % 98 % 115 mm[Hg] 80 mm[Hg] Kyleigh Fritz NP [address] [facility], [address], [place], [address], [facility] [email or web address] 4 09:13:16 Date Recorded Body height Body mass index (BMI) Body weight Respiratory rate Heart rate Body temperature Oxygen saturation Oxygen saturation in Arterial blood by Pulse oximetry Systolic blood pressure Diastolic blood pressure Provider Name and Address Organization Details Last Updated DateTime 4 160.02 cm 32.6 kg/m2 70545 g 19 /min 86 /min 97.5 [degF] 96 % 96 % 110 mm[Hg] 70 mm[Hg] Kyleigh Fritz NP [address] [facility], [place], [address], [employer] 4 16:03:36 Date Recorded Body height Body weight Heart rate Respiratory rate Body temperature Oxygen saturation Oxygen saturation in Arterial blood by Pulse oximetry Systolic blood pressure Diastolic blood pressure Provider Name and Address Organization Details Last Updated DateTime 4 160.02 cm 81279.1 4 g 85 /min 18 /min 97.4 [degF] 95 % 95 % 132 mm[Hg] 82 mm[Hg] Kyleigh Fritz NP [address] [facility] [address], [place], [address], [employer] 4 14:25:19 Date Recorded Body height Body mass index (BMI) Body weight Heart rate Respiratory rate Body temperature Oxygen saturation Oxygen saturation in Arterial blood by Pulse oximetry Systolic blood pressure Diastolic blood pressure Provider Name and Address Organization Details Last Updated DateTime 4 160.02 cm 33.8 kg/m2 10694.1 4 g 83 /min 18 /min 98.1 [degF] 96 % 96 % 130 mm[Hg] 90 mm[Hg] Kyleigh Fritz NP [address] [facility] [address], [place], [address], [employer] 4 11:09:43 Date Recorded Body height Body temperature Heart rate Respiratory rate Oxygen saturation Oxygen saturation in Arterial blood by Pulse oximetry Systolic blood pressure Diastolic blood pressure Provider Name and Address Organization Details Last Updated DateTime 4 160.02 cm 97.9 [degF] 82 /min 18 /min 96 % 96 % 140 mm[Hg] 92 mm[Hg] LILLIAN GOMEZ [address] [facility], [place], [address], [employer] 4 11:53:33 Social History Question Answer Notes LastModified by Organizat ion Details LastModified Time Tobacco Smoking Status Never Smoker she says not really Kiana Cassidy MD [address] [facility], [address], [place], [address], [facility] 04/14/2024 21:45:44 Do You Have An Advance [...] Do You Have A Medical Power Of Customer Service Correspondence Clerk? Yes Not Invoked Information not available 04/14/2024 [...] Time Tdap 2 completed Helena Rasta null, [facility] 04/07/2024 16:26:44 Tdap 2 completed Helena Magdaleno [facility] 04/07/2024 16:26:51 pneumococcal polysaccharide PPV23 2 completed Helena Magdaleno [facility] 04/07/2024 16:27:39 SARS-COV-2 (COVID-19) vaccine, UNSPECIFIED 2 completed Helena Magdaleno [facility] 04/07/2024 16:28:08 rabies, unspecified formulation 2 completed Helena Magdaleno [facility] 04/07/2024 16:28:22 Past Encounters Encounter ID Performer Location Encounter Start Date Encounter Closed Date Diagnosis/Indication Diagnosis SNOMED-CT Code Diagnosis ICD10 Code Diagnosis Note [id number] Kyleigh Fritz NP [facility] [address] [address] 04/05/2024 11:38:58 04/11/2024 14:41:13 Hypertensive crisis 214142126 I16.9 pt send to ER for hypertensi ve crisis initially 240/135 unrelieved by lisinopril , oxycodone, and anxiety medsBP 220/122 manually 1 hours post medssend to ER for hypertensi ve crisis Headache 44084179 R51.9 pt with head going to explode feeling and HTN crisis with recent hx of surgery and cvasend to ER for evaluation call 142 [id number] Kyleigh Fritz NP [facility] [address] [address] 04/13/2024 12:11:45 04/17/2024 20:01:07 Hypertensive emergency [id number] 91456 I16.1 felt related to pt not receiving pm meds on admission to rehab requiring nacard gtt and brief hypotensiv e episode with midodrine given felt stable on lisinopril 40 mg po dailymonit or vitals and bp Headache 58257218 R51.9 headache felt to be from hypertensi ve urgency aboveCT head no acute changes Chronic pa in following spinal surgery 0649622199 7102 G89.28 03/31-04/04 c 5-c7 acdf surgery [...] ax, senna dailywean as able Essential hypertension 32938861 I10 bp 148/98 here at 10amsee hypertensi ve emergency abovelisin opril 40 mg po dailymonit or vitals and bpcardiac diet Anxiety 46874459 F41.9 venlafaxin e 75 mg po daily(unsu re of why she is on this)hydro xyzine 50 mg po qid prn (was on bid)aripip razole 10 mg po dialymonit or and supportive care Leukocytosis 607540458 D 72.829 felt likely to medrol dose packmonito r labs weekly History of cervical discectomy 2416046936 1404758 Z98.890 recent hx of 03/31monito r neuros and fu with neuro Retention of urine 63514 4002 R33.9 hx of with chronic foleylast changed on 04/04foley careroutin e monthly changesmon itor History of hemorrhagic cerebrovascular accident with residual deficit 5541202990 10846 Z86.79 hx of stroke with residual deficitCT unremarkab leatorvast atin 20 mg po dailymonit or neuros Gastroesop hageal reflux disease 144283992 K21.9 famotidine 40 mg po dialymonit or [id number] Kiana Cassidy MD [address] [address] 04/14/2024 13:29:20 04/17/2024 20:21:04 Hypertensive emergency 5314257615 25539 I16.1 Resolved inpt. Has had recurrent issues with labile BP including other episodes of hypertensi ve emergency, but then has had soft BPs and BP meds were held or d/c'd.Diff icult to manage. Has been running borderline high since return.Saqib l add HCTZ 25 mg qdContinue lisinopril 40 mg qd.Avoid BB due to bradycardi a.Monitor BP and labs. Headache 31133876 R51.9 With hx of migraines, but recent HAs due to hypertensi ve emergencie s.Monitor for sxs. Chronic pa in following spinal surgery 1885627684 7102 G89.28 Improving slowly in this woman [...] neurosurg on 04/20 as planned. Essential hypertension 02865836 I10 As above. Anxiety 13609658 F41.1 Mood continues to be labile.Con tinue venlafaxin e 75 mg qd, aripiprazo le 10 mg qd and hydroxyzin e 50 mg qid prn.Avoid benzos.Mon itor mood.Consu lt psych prn Leukocytosis 727674486 D 72.828 Much more elevated today.Will get U/A and C&S in this woman with chronic covarrubias.Nusrat tor for signs of infection. History of cervical discectomy 1397726274 4627490 Z98.890 As above. Retention of urine 28868 4002 R33.8 Apparently long standing.W as self cathing prior to stroke, now with chronic covarrubias, last changed on 04/04Contin ue covarrubias care and monthly changesWil l get U/A and C&S as above. History of hemorrhagic cerebrovascular accident with residual deficit 6902258537 15218 I61.1 S/P hemorrhagi c CVA in 01/2024.Con tinue PT/OT as above.Cont inue atorvastat in 20 mg qd.Keep SBP <160Monito r for new neuro sxs. Gastroesop hageal reflux disease 198115462 K21.9 No current sxs.Contin ue famotidine 40 mg qdMonitor for GI sxs. [id number] ATIF MILLER NP [facility] [place] [address] 04/18/2024 14:33:47 04/21/2024 11:31:02 Hypertensive emergency 8281274071 86691 I16.1 Resolved inpt. Has had recurrent issues [...] a.Monitor BP and labs closely Essential hypertension 46975330 I10 As above. Leukocytosis 225099380 D 72.828 Trending up since admission, much better today (11.3)U/A and C&S ordered 04/14, but does not appear it was done - will re-orderCB C, BMP o overt s/s infection at this time.Of note, is completing steroid taper. Headache 44251992 R51.9 With hx of migraines, but recent HAs due to hypertensi ve emergencie s.Monitor for sxs. Chronic pa in following spinal surgery 7743093432 7102 G89.28 Improving slowly in this woman [...] of hemorrhagic cerebrovascular accident with residual deficit 2363767775 08675 I61.1 S/P hemorrhagi c CVA in 01/2024.Con tinue PT/OT as above.Cont inue atorvastat in 20 mg qd.Keep SBP <160Monito r for new neuro sxs. Anxiety 44357889 F41.1 Mood continues to be labile.Con tinue venlafaxin e 75 mg qd, aripiprazo le 10 mg qd and hydroxyzin e 50 mg qid prn.Avoid benzos.Mon itor mood.Consu lt psych prn History of cervical discectomy 6642542859 4775141 Z98.890 As above. Retention of urine 99638 4002 R33.8 Apparently long standing.W as self cathing prior to stroke, now with chronic covarrubias, last changed on 04/04Contin ue covarrubias care and monthly changesWil l get U/A and C&S as above. Gastroesop hageal reflux disease 951005093 K21.9 No current sxs.Contin ue famotidine 40 mg qdMonitor for GI sxs. [id number] ATIF MILLER NP [facility] [address] 04/20/2024 11:26:08 04/25/2024 09:54:45 Hypertensive emergency 7808014446 84022 I16.1 Resolved inpt. Has had recurrent issues [...] monitor BP and labs closely Essential hypertension 81255362 I10 As above. Leukocytosis 109369592 D 72.828 Trending up since admission, much better today (11.3)U/A and C&S ordered 04/14, finally obtained 04/19, positive UA, C&S prelim. >100K E. Coli.Plan -start Keflex 500 mg qid x 7 days plus probiotic. CBC, BMP tor VSOf note, is completing steroid taper. Headache 98953520 R51.9 With hx of migraines, but recent HAs due to hypertensi ve emergencie s.Monitor for sxs. Chronic pa in following spinal surgery 4194989591 7102 G89.28 Improving slowly in this woman [...] of hemorrhagic cerebrovascular accident with residual deficit 7502011977 67450 I61.1 S/P hemorrhagi c CVA in 01/2024.Con tinue PT/OT as above.Cont inue atorvastat in 20 mg qd.Keep SBP <160Monito r for new neuro sxs. Anxiety 26420508 F41.1 Mood continues to be labile.Con tinue venlafaxin e 75 mg qd, aripiprazo le 10 mg qd and hydroxyzin e 50 mg qid prn.Avoid benzos.Mon itor mood.Consu lt psych prn History of cervical discectomy 9764493533 4477703 Z98.890 As above. Retention of urine 43011 4002 R33.8 Apparently long standing.W as self cathing prior to stroke, now with chronic covarrubias, last changed on 04/04Contin ue covarrubias care and monthly changesTre ating UTI as above. Gastroesop hageal reflux disease 376151564 K21.9 No current sxs.Contin ue famotidine 40 mg qdMonitor for GI sxs. [id number] [facility] [address] [place] [address] 04/24/2024 13:06:36 04/27/2024 08:55:22 Hypertensive emergency 3454607916 24804 I16.1 Resolved inpt.noteH as had recurrent issues with labile BP including other episodes of hypertensi ve emergency, but then has had soft BPs and BP meds were held or d/c'd. Remains labile here, but improving in generalcon tHCTZ 25 mg po daily, hold for SBP<110lis inopril 40 mg qd.Avoid BB due to bradycardi a.Continue to monitor BP and labs closely Essential hypertension 07642715 I10 As above.Lorena ins labile here, but improving in generalcon tHCTZ 25 mg po daily, hold for SBP<110lis inopril 40 mg qd.Avoid BB due to bradycardi a.Continue to monitor BP and labs closely Leukocytosis 294411489 D 72.828 Trending down now.see above UTICBC, BMP tor VSOf note, is completing steroid taper. Chronic pa in following spinal surgery 4619730752 7102 G89.28 Improving however, still requiring meds [...] of hemorrhagic cerebrovascular accident with residual deficit 7925576206 60406 I61.1 S/P hemorrhagi c CVA in 01/2024.has had chronic covarrubias since stroke and reports attempted removal several times but is likely chronicCon tinue PT/OT as above.Cont inue atorvastat in 20 mg qd.Keep SBP <160Monito r for new neuro sxs. Anxiety 01903666 F41.1 Mood continues to be labile.Con tinuevenla faxine 75 mg qd, aripiprazo le 10 mg qd and 04/24 hydroxyzin e 50 mg qid and add 50 mg po prn q 24Avoid benzos.Mon itor mood.Consu lt psych prn History of cervical discectomy 8543162831 5291649 Z98.890 As above. Retention of urine 84951 4002 R33.8 Apparently long standing.W as self cathing prior to stroke, now with chronic covarrubias, last changed on 04/04Contin ue covarrubias care and monthly changesTre ating UTI as above. Gastroesop hageal reflux disease 570684422 K21.9 No current sxs.Contin uefamotidi ne 40 mg qdMonitor for GI sxs. Urinary tr act infectious disease 86946966 N39.0 Urine culture results show >100,000 e coli ESBL and gram neg rods pseudomona s.esbl precaution sShe was recently started on keflex 04/21-04/28. Due to resistant esbl and multi-orga nisms will04/24 dc keflex and cont probiotic start levaquin 750 mg po daily x 5 daysaugmen tin 875mg/125 mg po bid x 10 days as these are susceptibl e on culture.mo nitor [id number] ATIF MILLER NP [address] [place] [address] 04/25/2024 10:45:23 04/27/2024 09:53:26 Urinary tract infectious disease 22919123 N39.0 Urine cx. >100,000 e coli ESBL and 50-99K Pseudomona sesbl precaution sKeflex stopped, now on levaquin 750 mg qd x 5d and Augmentin 875 mg bid x 10 d plus probiotic. CBC improvedCl inically stableMain tain fluidsTren d VS, sx. labs Leukocytosis 320406621 D 72.828 Trending down - WNRTreatin g for UTIMonitor VS, trend labsOf note, completed steroid taper. Anxiety 69254442 F41.1 Mood continues to be labile.Con tinue:Venl afaxine 75 mg qdAripipra zole 10 mg qdHydroxyz ine 50 mg qid with recent addition of 50 mg qd prnAvoid benzos.Mon itor mood and behaviorsC onsult psych prn Hypertensi ve emergency 1638798138 85483 I16.1 Hx. of labile BP with significan t highsMeds adjusted.R emains labile here, but improving in generalcon tinue:HCTZ 25 mg qd, hold for SBP<110lis inopril 40 mg qd Avoid BB due to bradycardi a.Continue to monitor BP and labs closely Essential hypertension 60266759 I10 As above.Lorena ins labile here, but improving in generalcon tHCTZ 25 mg po daily, hold for SBP<110lis inopril 40 mg qd. Avoid BB due to bradycardi a.Continue to monitor BP and labs closely Chronic pa in following spinal surgery 6001773764 7102 G89.28 Improving in general, however, still [...] of hemorrhagic cerebrovascular accident with residual deficit 2556474576 64673 I61.1 S/P hemorrhagi c CVA in 01/2024.has had chronic covarrubias since stroke and reports attempted removal several times but is likely chronicCon tinue PT/OT as above.Cont inue atorvastat in 20 mg qd.Keep SBP <160Monito r for new neuro sxs. History of cervical discectomy 3517406366 5164294 Z98.890 As above. Retention of urine 07239 4002 R33.8 Apparently long standing.W as self cathing prior to stroke, now with chronic covarrubias, last changed on 04/04Contin ue covarrubias care and monthly changesTre ating UTI as above. Gastroesop hageal reflux disease 967602363 K21.9 No current sxs.Contin uefamotidi ne 40 mg qdMonitor for GI sxs. [id number] Kyleigh Fritz NP [facility] [address] [address] 04/27/2024 09:12:38 05/03/2024 16:01:01 Chest pain 44165474 R07.9 call 911 and send to ER for acute chest pain [id number] Kyleigh Fritz NP [facility] [address] [address] 04/28/2024 16:02:42 05/03/2024 16:31:55 Urinary tract infectious disease 73880521 N39.0 Urine cx. >100,000 e coli ESBL and 50-99K Pseudomona sesbl precaution sKeflex stopped, now on levaquin 750 mg qd x 5d and Augmentin 875 mg bid x 10 d plus probiotic. CBC improvedCl inically stableMain tain fluidsTren d VS, sx. labs Leukocytosis 623841238 D 72.828 resolvedTr eating for UTIMonitor VS, trend labsOf note, completed steroid taper. Anxiety 35014086 F41.1 Mood continues to be labile.04/09 1 start buspar 10 mg po bid per psych recContinu e:Venlafax ine 75 mg qdAripipra zole 10 mg qdHydroxyz ine 50 mg qid with recent addition of 50 mg qd prnAvoid benzos.Mon itor mood and behaviorsC onsult psych prn Hypertensi ve emergency 2819128313 59581 I16.1 resolvedbp stable x last three dayscontin ue:HCTZ 25 mg qd, hold for SBP<110lis inopril 40 mg qd Avoid BB due to bradycardi a.Continue to monitor BP and labs closely Essential hypertension 53663662 I10 As above.stab le for last few daysHCTZ 25 mg po daily, hold for SBP<110lis inopril 40 mg qd.Avoid BB due to bradycardi a.Continue to monitor BP and labs closely Chronic pa in following spinal surgery 8881857449 7102 G89.28 Improving in general, however, still [...] of hemorrhagic cerebrovascular accident with residual deficit 3842288625 07381 I61.1 S/P hemorrhagi c CVA in 01/2024.has had chronic covarrubias since stroke and reports attempted removal several times but is likely chronicCon tinuePT/OT as above.ator vastatin 20 mg qd.Keep SBP <160Monito r for new neuro sxs. History of cervical discectomy 2394467156 2086055 Z98.890 As above. Retention of urine 86144 4002 R33.8 Apparently long standing. with recent utiWas self cathing prior to stroke, now with chronic covarrubias, last changed on 04/04Contin ue covarrubias care and monthly changesTre ating UTI as above. [id number] Kyleigh Fritz NP [address] [address] 05/04/2024 13:57:33 05/09/2024 10:01:55 Anxiety 47994290 F41.1 Mood continues to be labile with anxiety. start buspar 10 mg po bid per psych rec05/04 cont buspar as it is helping with anxiety and consider increasing Cont:Venla faxine 75 mg qdAripipra zole 10 mg qdHydroxyz ine 50 mg qid with recent addition of 50 mg qd prnAvoid benzos.Mon itor mood and behaviorsC onsult psych prn Urinary tr act infectious disease 57221798 N39.0 Urine cx. >100,000 e coli ESBL and 50-99K Pseudomona sesbl precaution sKeflex stopped, now on levaquin 750 mg qd x 5d and Augmentin 875 mg bid x 10 d plus probiotic. to finish todayClini pebbles stableMain tain fluidsTren d VS, sx. labs Essential hypertension 46871104 I10 stable and 132/82 todayHCTZ 25 mg po daily, hold for SBP<110lis inopril 40 mg qd.was on norvasc at home but dc'd in hospital for low bpAvoid BB due to bradycardi a.Continue to monitor BP and labs closely and for need to restart meds Chronic pa in following spinal surgery 8440949345 7102 G89.28 Improving in general, however, still [...] of hemorrhagic cerebrovascular accident with residual deficit 0414355299 56101 I61.1 S/P hemorrhagi c CVA in 01/2024.has had chronic covarrubias since stroke and reports attempted removal several times but is likely chronicCon tPT/OT as above.ator vastatin 20 mg qd.Keep SBP <160Monito r for new neuro sxs. History of cervical discectomy 6948761563 1335745 Z98.890 As above. Retention of urine 13477 4002 R33.8 Apparently long standing. with recent utiWas self cathing prior to stroke, now with chronic covarrubias, last changed on 04/04Contin ue covarrubias care and monthly changesTre ating UTI as above almost resolved [id number] Kyleigh Fritz, [facility] [address] [address] 05/05/2024 11:08:22 05/09/2024 10:26:57 Anxiety 66798253 F41.1 Mood continues to be labile with [...] and behaviorsC onsult psych prn Essential hypertension 75244886 I10 stable with labile bps at timescontH CTZ 25 mg po daily, hold for SBP<110lis inopril 40 mg qd.was on norvasc at home but dc'd in hospital for low bpAvoid BB due to bradycardi a.Continue to monitor BP and labs closely and for need to restart meds Chronic pa in following spinal surgery 9254364700 7102 G89.28 Improving in general, however, still [...] at 3pm Urinary tr act infectious disease 90529553 N39.0 denies any symptomsUr ine cx. >100,000 e coli ESBL and 50-99K Pseudomona sesbl precaution sKeflex stopped, now on levaquin 750 mg qd x 5d and Augmentin 875 mg bid x 10 d plus probiotic. completed on 05/05Clinic ally stableMain tain fluidsTren d VS, sx. labs History of hemorrhagic cerebrovascular accident with residual deficit 2184205968 05625 I61.1 S/P hemorrhagi c CVA in 01/2024.has had chronic covarrubias since stroke and reports attempted removal several times but is likely chronicCon tPT/OT as above.ator vastatin 20 mg qd.Keep SBP <160Monito r for new neuro sxs. History of cervical discectomy 0129822285 7882815 Z98.890 As above. Retention of urine 61671 4002 R33.8 Apparently long standing. with recent utiWas self cathing prior to stroke, now with chronic covarrubias, last changed on 04/04nsg to change monthlyCon tinue covarrubias care and monthly changesTre ating UTI as above almost resolved Hypertensi ve emergency 2005351214 49274 I16.1 resolved, ? related to not getting dose of lisinopril per dc summarycon tinue:HCTZ 25 mg qd, hold for SBP<110lis inopril 40 mg qdAvoid BB due to bradycardi a.Continue to monitor BP and labs closely Chest pain 41307915 R07. 9 she was sent to ER for chest pain that was ruled out and sent back to facilitymo nitor Gastroesop hageal reflux disease 124069068 K21.9 No current sxs.Contin uefamotidi ne 40 mg qdMonitor for GI sxs. Headache 02416515 R51.9 With hx of migraines, but recent HAs due to hypertensi ve emergencie s.Monitor for sxs. [id number] LILLIAN GOMEZ [address] [address] 05/08/2024 10:49:58 05/18/2024 09:55:18 Chronic pain following spinal surgery 5250050916 7102 G89.28 Improving in general, however, still [...] ry on jun 21 at 3pm Anxiety 84978023 F41.1 Mood continues to be labile with anxiety.co ntinue buspar 10 mg po bid per psych reccont buspar as it is helping with anxiety and consider increasing Cont:Venla faxine 75 mg qdAripipra zole 10 mg qdHydroxyz ine 50 mg qid with recent addition of 50 mg qd prnAvoid benzos. Essential hypertension 43924345 I10 contHCTZ 25 mg po daily, hold for SBP<110lis inopril 40 mg qd.was on norvasc at home but dc'd in hospital for low bpAvoid BB due to bradycardi a.Continue to monitor BP and labs closely and for need to restart meds Urinary tr act infectious disease [id number] N39.0 denies any symptomsUr ine cx. >100,000 e coli ESBL and 50-99K Pseudomona sesbl precaution scompleted abx on 05/05Clinic ally stableMain tain fluidsTren d VS, sx. labs History of hemorrhagic cerebrovascular accident with residual deficit [id number] I61.1 S/P hemorrhagi c CVA in 01/2024.has had chronic covarrubias since stroke and reports attempted removal several times but is likely chronicCon tatorvasta tin 20 mg qd.Keep SBP <160Monito r for new neuro sxs. History of cervical discectomy [id number] Z98.890 As above. Retention of urine [id number] 4002 R33.8 Apparently long standing. with recent utiWas self cathing prior to stroke, now with chronic covarrubias, last changed on 04/04nsg to change monthlyCon tinue covarrubias care and monthly changesTre ating UTI as above almost resolvedfo olow up out patient with urology- patient will make appt. Gastroesop hageal reflux disease [id number] K21.9 No current sxs.Contin uefamotidi ne 40 mg qdMonitor for GI sxs. Health Concerns Section Related Observation LastModified by Organization Detai ls LastModified Time None Recorded Concern Status LastModified by Organization Details LastModified Time None Recorded Advance Directives Directive Y: Payers Encounter Date Sequence Insurance Name Policy Number Policy Alanis Covered Member ID Alanis Member ID Guarantor Name 04/27/2024 1 [place] [facility] Cheryl Didato [id number] Cheryl Didato 04/28/2024 1 [place] Cheryl Didato [id number] Cheryl Didato 05/04/2024 1 [place] [facility] Cheryl Didato [id number] Cheryl Didato 05/05/2024 1 [place] [facility] Cheryl Didato [id number] Cheryl Didato 05/08/2024 1 [place] Cheryl Didato [id number] Cheryl Didato Notes Date Note Type Note [...] since 02/03/24 when she was admitted to [facility] for an acute CVA. recent spinal surgery [...] my health and want to go to [facility] . 911 called and pt seen to ER promptly. Of note: She is currently on antibiotics for UTI until 05/04, due to final C&S results (>100K E. Coli ESBL and 50-99K Pseudomonas) change required, now on levaquin and Augmentin to cover these orgs. Chronic covarrubias remains in place, qs yellow urine. Kyleigh Fritz NP [address] [facility], [address], [place], [address], [employer] 04/27/2024 10:02:54 04/28/2024 text/html Cheryl is seen tod ay for an acute visit. Her PMH includes HTN-very labile, HLD, migraines, anxiety/depression, chronic urinary retention with indwelling covarrubias, and s/p CVA right basal ganglia hemorrhagic stroke in 01/2024. She is a 58 yo woman who is here for rehab after a series of hospitalizations and rehab stays since 02/03/24 when she was admitted to [facility] for an acute CVA and sp spinal surgery fusion. She is seen today by psychological science professor recommending buspar 10 mg po bid for her anxiety. Due to recurrent anxiety will agree and monitor closely as she seems to be med seeking at times by psychological science professor.She remains on antibiotics for UTI, due to [...] is okay and falls back to sleep digital developer states she had a full conversation with him a few minutes prior and not lethargic and appropriate. No other concerns per nursing. Kyleigh Fritz NP [address] [facility], [address], [place], [address], [place] [employer] 04/28/2024 16:12:43 05/04/2024 text/html Cheryl is seen tod ay for an acute visit. Her PMH includes HTN-very labile, HLD, migraines, anxiety/depression, chronic urinary retention with indwelling covarrubias, and s/p CVA right basal ganglia hemorrhagic stroke in 01/2024. Cheryl is a 58 yo woman who is here for rehab after a series of hospitalizations and rehab stays since 02/03/24 when she was admitted to [facility] for an acute CVA and sp spinal surgery fusion here at [facility] for acute rehab. She remains on [...] flights of ideas. Kyleigh Fritz NP [address] [facility], [address], [place], [address], [facility] [email or web address] 05/04/2024 14:58:17 05/05/2024 text/html Cheryl is seen [...] female with hx above initially presented to [facility] ER from rehab with co neck pain radiating to her right upper extremity with paresthesias felt per neurosurgery symptoms from postoperative nerve root inflammation discharged to rehab on 04/04 and returned to [facility] ER on 04/05-04/12 for hypertensive urgency, blurred [...] right internal capsule thalmic hemorrhage Since at [facility]: On 04/27 she was sent to Er for chest pain and ruled out for acute concern and sent back to rehab shortly after. She was seen by psychological science professor on 04/28 and started on buspar 10 [...] is sitting in the activity room in [facility]. She dose have a mild outburst at another resident to get away as she felt he was too close and then she settles down. Residents were at that time. She denies any other concerns today. Her weight is 191 lbs which is approx to 190 lbs on admission. [facility] full code, signed 04/13/24 Kyleigh Fritz, DIAMOND [address] [facility], [address], [place], [address], [facility] [email or web address] 05/05/2024 11:33:54 05/08/2024 text/html Cheryl is a [...] female with hx above initially presented to [facility] ER from rehab with co neck pain radiating to her right upper extremity with paresthesias felt per neurosurgery symptoms from postoperative nerve root inflammation discharged to rehab on 04/04 and returned to [facility] on 04/05-04/12 for hypertensive urgency, blurred [...] right internal capsule thalmic hemorrhage Since at [facility]: On 04/27 she was sent to Er for chest pain and ruled out for acute concern and sent back to rehab shortly after. She was seen by psychological science professor on 04/28 and started on buspar 10 [...] be receiving home health care service with [facility] and referral was also made to [facility] for additional homemaking, personal care and ADVANCED RESEARCH PROGRAMS DIRECTOR services. Lux has a follow up appointment with her PCP on 05/23/24. LILLIAN GOMEZ [address] [facility], [address], [place], [address], [facility] 05/08/2024 13:35:11 OBGyn Episode No OBEpisode recorded.
--- OUTSIDE RECORDS SUMMARY | 2025-01-07 10:06 | XMS_ITS | Encounter Summary ---
Author Organization [employer] Address [address] [place] [address] [place] [address] Care Team Providers Care Cheese Specialist Name Role Phone DavidAliza loera Primary Care Provider + [phone] Lesley Ingram Unavailable Unavailable Rosi Castro RN Unavailable [phone] Reason for Visit * Reason Comments Transition Of Care (Tcm) Encounter Details Date Type Department Care Team ([facility] st Contact Info) Description 11/02/2024 Patient Outreach [facility] [address] [place] [address] Nerissa Robertson, RN [address] [place] [address] Transition Of Care (Tcm) Social History Tobacco [...] as of this encounter Progress Notes * Nerissa Robertson RN - 11/02/2024 8:08 AM EST 11/02/24 0808 Hospital Discharges and Admission for [facility] Type of Visit Emergency Department Date of Admission/Visit 10/31/24 Date of Discharge 10/31/24 Facility [facility] Diagnosis BLOCKED CATH, ?UTI PER EMS Disposition Discharged Home * Cori Aly RN - 11/02/2024 8:08 AM EST Telephone call to pt for status check after ED visit for urinary catheter malfunction and UTI. Pt reports having gone to ED on 10/31 and reports that her catheter was changed at the ED. Today, pt reports new catheter draining with some sediment, reports some pain that was present at the ED. Parallel Computing Software Engineer asked pt if she would like to schedule earlier ED follow up appt, pt stated no I want to see Dr Paul and I will see her on 12/06 and I'm monitoring my catheter and its output. Advised pt to take antibiotics as prescribed by the ED, pt states she will pick them up today. Reviewed ER return precautions including for no drainage, severe abdominal pain, worse or new urinary symptoms. Pt then stated she would like to talk to PCP at upcoming appt about pill burden and potential increase in arthritis and anxiety medications, service writer advisor again asked pt if she would like earlier ED follow up, pt stated no and reports urology appt now scheduled on 12/14/24. Pt declined rescheduled CDTM appt for [facility], stated that she has VNA. Advised pt to call [facility] with any questions, pt verbalized understanding. * Aliza Paul DO - 11/02/2024 8:08 AM EST RN note previously reviewed. Pt NS to visit. Pt to r/s and will discuss pt concerns. documented in this encounter Plan of Treatment Upcoming Encounters Date Type Department Care Team (Late st Contact Info) Description 01/11/2025 2:00 PM EST Office Visit [facility] [address] [place] [address] Moira Chau MD [address] [place] [address] 02/08/2025 3:00 PM EDT Office Visit [facility] [address] [place] [address] Kimberly Gonzalez, OD [address] [place] [address] documented as of this encounter Visit Diagnoses Not on filedocumented in this encounter Additional Health Concerns Assessment Noted Time PHQ-9 Depression Total Score: 15 024 9:20 AM EDT documented as of this encounter Care Teams Cheese Specialist Relationship Specialty Start Date End Date Aliza Paul DO [address] [place] [address] PCP - General Family Medicine 02/23/12 Lesley Ingram Community Health Worker 05/17/24 Rosi Castro RN [address] [place] [id number] Food Service Substitute 05/17/24 [facility] 07/27/24 documented as of this encounter
--- OUTSIDE RECORDS SUMMARY | 2025-01-07 10:06 | XMS_ITS | Encounter Summary ---
Author Organization [employer] Address [address] [place] [address] 7 [place] [address] Care Team Providers Care Paste Plant Supervisor Name Role Phone Aliza Paul DO Primary Care Provider + [phone] Lesley Ingram Unavailable Unavailable Rosi Castro RN Unavailable [phone] Reason for Visit * Reason Comments Med Refill Encounter Details Date Type Department Care Team ([facility] st Contact Info) Description 12/15/2024 Refill [facility] [address] [place] [address] Aliza Paul DO [address] [place] [address] Social History Tobacco Use Types Packs/Day Years [...] Description 01/11/2025 2:00 PM EST Office Visit [facility] [address] [place] [address] Moira Chau MD [address] [place] [address] 02/08/2025 3:00 PM EDT Office Visit [facility] [address] [place] [address] Kimberly Gonzalez, OD [address] [place] [address] documented as of this encounter Visit Diagnoses Not on filedocumented in this encounter Additional Health Concerns Assessment Noted Time PHQ-9 Depression Total Score: 15 024 9:20 AM EDT documented as of this encounter Care Teams Paste Plant Supervisor Relationship Specialty Start Date End Date Aliza Paul DO [address] [place] [address] PCP - General Family Medicine 02/23/12 Lesley Ingram Community Health Worker 05/17/24 Rosi Castro RN [address] [facility] [place] [address] Non Emergency Services Ambulance Driver 05/17/24 [facility] 07/27/24 documented as of this encounter
--- OUTSIDE RECORDS SUMMARY | 2025-01-07 10:06 | XMS_ITS | Encounter Summary ---
Author Organization [employer] Address [address] [place] [address] [address] [place] [address] Care Team Providers Care Tire Recapper Name Role Phone Aliza Paul DO Primary Care Provider [phone] Lesley Ingram Unavailable Unavailable Rosi Castro RN Unavailable [phone] Reason for Visit * Reason Comments Med Refill Encounter Details Date Type Department Care Team ([facility] st Contact Info) Description 09/29/2024 Refill [facility] [address] [place], [place] [phone] Aliza Paul DO [address] [place] [address] Closed supracondylar fracture of right humerus with [...] Description 01/11/2025 2:00 PM EST Office Visit [facility] [address] [place] [address] Moira Chau MD [address] [place] [address] 02/08/2025 3:00 PM EDT Office Visit [facility] [address] [place] [address] Kimberly Gonzalez, OD [address] [place] [address] documented as of this encounter Visit Diagnoses Diagnosis Closed supracondylar fracture of right humerus with routine healing Muscle spasm Spasm of muscle documented in this encounter Additional Health Concerns Assessment Noted Time PHQ-9 Depression Total Score: 15 024 9:20 AM EDT documented as of this encounter Care Teams Tire Recapper Relationship Specialty Start Date End Date Aliza Paul DO [address] [place] [address] PCP - General Family Medicine 02/23/12 Lesley Ingram Community Health Worker 05/17/24 Rosi Castro RN [address] [place] [address] Car Unloader 05/17/24 [facility] 07/27/24 documented as of this encounter
--- OUTSIDE RECORDS SUMMARY | 2025-01-07 10:06 | XMS_ITS | Encounter Summary ---
Author Organization [employer] Address [address] [place] [address] 7 [place] [address] Care Team Providers Care Line Driver Name Role Phone Beverly Aliza Primary Care Provider [phone] Lesley Ingram Unavailable Unavailable Rosi Castro RN Unavailable [phone] Encounter Details Date Type Department Care [...] Description 01/11/2025 2:00 PM EST Office Visit [facility]INE [address] [place] [address] Moira Chau MD [address] [place] [address] 02/08/2025 3:00 PM EDT Office Visit [facility] OPTOMETRY [address] [place] [address] Kimberly Gonzalez, OD [address] [place] [address] documented as of this encounter Procedures Procedure [...] (12/08/2024 1:37 PM EST) Color Urine Yellow [facility] Appearance Urine Turbid [facility] PH >=9.0 5.0 - 9.0 [facility] Glucose Urine UA Negative Negative mg/dL [facility] Urine Blood Large (3+)(A) Negative [facility] Specific [place] - Urine 1.020 1.005 - 1.025 [facility] Urine Protein 100 (2+)(A) Neg-Trace mg/dL [facility] Urine Ketones Negative Negative mg/dL [facility] Nitrite Urine Negative Negative [facility] Leukocyte Esterase Urine Moderate (2+)(A) Negative [facility] RBC Urine 11-20(A) 0 - 2 /HPF [facility] Urine WBC 6-10 0 - 5 /HPF [facility] Urine Squamous Epithelial Cell 3-5 0 - 2 /HPF [facility] Other Crystals Urine Present [facility] Comment:TRIPLE PHOSPHATE NOT ED Urine Bacteria 2+ None Seen [facility] Hyaline Casts, Urine 0-2 0 - 2 /LPF [facility] 12/08/2024 1:37 PM EST 12/08/2024 1:40 PM EST Narrative [facility] - 12/08/2024 2:03 PM EST [id number], [place] us Generic External Data Provider LAB URINE ORDERAB LES Final Result [facility] [address] [place] [phone] * High Sensitivity Troponin I (12/08/2024 11:48 AM EST) TROPONIN I HIGH SENSITIVITY 4.4 <3.5 - 17.0 ng/L [facility] Comment:The Jaureugi high sens itivity Troponin-I results should beused in conjunction with other diagnostic information suchas ECG, clinical observations and information, and patientsymptoms to aid in the diagnosis of SD. 12/08/2024 11:4 8 AM EST 12/08/2024 11:50 AM EST Generic External Data Provider LAB BLOOD ORDERAB LES Final Result Performing Organization Address [facility] de Phone Number [facility] [address] [place] [phone] * (ABNORMAL) B Type Natriuretic Peptide (BNP) (12/08/2024 11:48 AM EST) [facility] B Type Natriuretic Peptide 107(H) <100 pg/mL [facility] Comment:For those patients w ho are being treated with Natrecor(nesiritide, recombinant BNP), BNP testing should beperformed at least two hours post treatment in order toensure that only endogenous levels of BNP are detected. 12/08/2024 11:4 8 AM EST 12/08/2024 11:50 AM EST us Generic External Data Provider LAB BLOOD ORDERAB LES Final Result Performing Organization Address [facility] Co de Phone Number [facility] [address] [place] [phone] * Magnesium (12/08/2024 11:48 AM EST) Pathologist [facility] Magnesium 1.8 1.6 - 2.6 mg/dL [facility] 12/08/2024 11:4 8 AM EST 12/08/2024 11:50 AM EST us Generic External Data Provider LAB BLOOD ORDERAB LES Final Result Performing Organization Address City/[facility]/ZIP Co de Phone Number [facility] [address] [place] [phone] * (ABNORMAL) Basic Metabolic Panel (12/08/2024 11:48 AM EST) Sodium 142 135 - 145 mmol/L [facility] Potassium 3.4 3.3 - 5.1 mmol/L [facility] Chloride 110(H) 96 - 108 mmol/L [facility] Carbon Dioxide 24 22 - 29 mmol/L [facility] Anion Gap 11(L) 12 - 20 [facility] Urea Nitrogen (BUN) 15 9 - 16 mg/dL [facility] Creatinine, Serum 0.70 0.5 - 1.4 mg/dL [facility] Creatinine Clr Calc Pharmacy 89.2 [facility] Comment:Provided height and weight: 160.02 cm,84.6 kg.eGFR (calculated from the MDRD study equation) and eCrCl(calculated from the Cockcroft-Gault equation) are based ondifferent parameters and may not yield comparable results.If eCrCl result is absurd, please check patient'sheight/weight. Estimated Glomerular Filt Rate >60 [facility] Comment:Chronic Kidney Disea se: Estimated GFR < 60 mL/min/[id number] Kidney Disease: Estimated GFR < 15 mL/min/1.73m2 Glucose 104 60 - 115 mg/dL [facility] Calcium 9.9 8.4 - 10.2 mg/dL [facility] 12/08/2024 11:4 8 AM EST 12/08/2024 11:50 AM EST us Generic External Data Provider LAB BLOOD ORDERAB LES Final Result Performing Organization Address City/[facility]/ZIP Co de Phone Number [facility] [address] [place] [phone] * Hepatic Function Panel (12/08/2024 11:48 AM EST) Pathologist [facility] Bilirubin, Total 0.5 0.0 - 1.0 mg/dL [facility] Bilirubin, Direct 0.2 0.0 - 0.5 mg/dL [facility] Aspartate Amino Transferase 12 5 - 31 U/L [facility] Alanine Aminotransferase 12 0 - 31 U/L [facility] Total Protein 7.2 6.5 - 8.0 g/dL [facility] Albumin Level 3.8 3.5 - 5.0 g/dL [facility] Alkaline Phosphatase 84 39 - 117 U/L [facility] 12/08/2024 11:4 8 AM EST 12/08/2024 11:50 AM EST us Generic External Data Provider LAB BLOOD ORDERAB LES Final Result Performing Organization Address City/State/[facility] Co de Phone Number [facility] [address] [place] [phone] * (ABNORMAL) CBC auto differential (12/08/2024 11:48 AM EST) [facility] White Blood Count 10.6 4.8 - 10.8 X10*3/uL [facility] Red Blood Count 5.36 4.20 - 5.50 X10*6/uL [facility] Hemoglobin 14.3 12.0 - 16.0 g/dl [facility] Hematocrit 42.6 37.0 - 47.0 % [facility] Mean Corpuscular Volume 79.5(L) 80.0 - 98.0 fL [facility] Mean Corpuscular Hemoglobin 26.7(L) 27.0 - 33.0 pg [facility] Mean Corpuscular HGB Conc 33.6 31.0 - 35.0 g/dl [facility] Red Cell Distribution Width 13.5 11.0 - 16.0 % [facility] Platelet Count 341 160 - 400 X10*3/uL [facility] Mean Platelet Volume 9.3(L) 9.4 - 12.3 fL [facility] Neutrophils Percent Auto 60.2 45 - 73 % [facility] Imm Gran Pct Auto 0.3 0.0 - 0.4 % [facility] Lymphocytes Percent Auto 28.0 20 - 40 % [facility] Monocytes Percent Auto 7.3 2 - 11 % [facility] Eosinophils Percent Auto 3.5 0 - 4 % [facility] Basophils Percent Auto 0.7 0 - 2 % [facility] NRBC Pct Auto 0.0 0.0 - 0.2 /100WBC [facility] Neutrophils Absolute Auto 6.4 2.0 - 8.3 x10*3/uL [facility] Imm Gran Abs Auto 0.03 0.00 - 0.03 X10*3/uL [facility] Lymphocytes Absolute Auto 3.0 1.2 - 4.9 X10*3/uL [facility] Monocytes Absolute Auto 0.8 0.1 - 1.2 X10*3/uL [facility] Eosinophils Absolute Auto 0.4 0.0 - 0.4 X10*3/uL [facility] Basophils Absolute Auto 0.1 0.0 - 0.2 X10*3/uL [facility] NRBC Abs Auto 0.000 0.0 - 0.012 X10*3/uL [facility] 12/08/2024 11:4 8 AM EST 12/08/2024 11:50 AM EST us Generic External Data Provider LAB BLOOD ORDERAB LES Final Result [facility] [address] [place], [place] [phone] * (ABNORMAL) SARS-CoV-2 RNA, Influenza A/B, and RSV RNA, Ql NAAT (12/08/2024 11:39 AM EST) Influenza A PCR NEGATIVE Negative [facility] Influenza B PCR NEGATIVE Negative [facility] Resp Syncy Virus RNA Qual PCR POSITIVE(A) Negative [facility] SARS COV2 PCR NEGATIVE Negative [facility] Comment:All test results mus t [...] use by authorized laboratories.Testing performed on the [employer] GeneXpert utilizingreal-time RT-PCR.All SARS CoV2 and positive influenza A/B results arereported to [facility]. 12/08/2024 11:3 9 AM EST 12/08/2024 11:50 AM EST Generic External Data Provider LAB MICROBIOLOGY - GENERAL ORDERABLES Final Result Performing Organization Address City/State/[facility] Co de Phone Number [facility] [address] [place] [phone] * XR Chest 1 View (12/08/2024 11:25 AM EST) Anatomical Region Laterality Modality Chest Radiographic Nidia ging 12/08/2024 11:2 5 AM EST Narrative 12/08/2024 12:08 PM EST ? [facility] ?[address] ?[place] [address] ?XRay Report ? Signed ? Patient: Didato,Cheryl A ?MR#: [id number] ?? 0 ? : 1965 ?Acct:[id number] ? Age/Sex: 59 / F ?ADM Date: 01/31/25 ? Loc: HO.ED ? Attending Dr: ? Ordering Physician: Suzy Frye DO ?? Date of Service: 12/08/24 ?? Procedure(s): XR chest 1V ?? Accession Number(s): [id number] ? cc: Suzy Frye DO; Aliza Paul [...] DD/ 1125 ? TD/TT: 12/08/24 1155 ? Commercial Painter: ? Procedure Note Dev, Image - 12/08/2024 [place] [address] XRay Report Signed Patient: Cheryl Garcia AMR#: [id number] : 1965Acct:[id number] Age/Sex: 59 / FADM Date: 12/08/24 Loc: HO.ED Attending Dr: Ordering Physician: Suzy Frye DO Date of Service: 12/08/24 Procedure(s): XR chest 1V Accession Number(s): [id number] cc: Suzy Frye DO; Aliza Paul DO [...] OV> 12/08/24 1205 DD/ 1125 TD/TT: 12/08/24 115 Commercial Painter: [facility] External Provider IMG XR PROCEDURES Final Result * Culture, Urine, Routine (12/08/2024 12:00 AM EST) Urine Urine specimen obtained by clean catch procedure / Unknown 12/08/2024 12/08/2024 Comment:[facility] Narrative [facility] - 12/11/2024 8:27 AM EST Proteus mirabilis Quant > 100,000 cfu/mL Proteus mirabilis: Ampicillin <=2(S) Proteus mirabilis: Cefazolin (Urine) 4(S) Proteus mirabilis: Cefepime <=0.12(S) Proteus mirabilis: Ceftriaxone <=0.25(S) Proteus mirabilis: Ciprofloxacin <=0.06(S) Proteus mirabilis: Gentamicin <=1(S) Proteus mirabilis: Nitrofurantoin 256(R) Proteus mirabilis: Trimethoprim/Sulfamethoxazole <=20(S) Specimen Source: Urine clean catch Generic External Data Provider LAB MICROBIOLOGY - GENERAL ORDERABLES Final Result [facility] [address] [place] [phone] documented in this encounter Visit Diagnoses Not on filedocumented in this encounter Additional Health Concerns Assessment Noted Time PHQ-9 Depression Total Score: 15 024 9:20 AM EDT documented as of this encounter Care Teams Line Driver Relationship Specialty Start Date End Date Aliza Paul DO [address] [place] [phone] PCP - General Family Medicine 02/23/12 Lesley Ingram Community Health Worker 05/17/24 Rosi Castro RN [address] [place] [address] Bottling Attendant 05/17/24 [facility] 07/27/24 documented as of this encounter
--- OUTSIDE RECORDS SUMMARY | 2025-01-07 10:07 | XMS_ITS | Encounter Summary ---
Author Organization [employer] Address [address] [place] [address] 7 [place] [address] Care Team Providers Care Audiology Doctor Name Role Phone Aliza Paul DO Primary Care Provider [phone] Lesley Ingram Unavailable Unavailable Rosi Castro RN Unavailable [phone] Reason for Visit * Reason Comments Med Refill Encounter Details Date Type Department Care Team ([facility] st Contact Info) Description 12/13/2024 Refill [facility] [address] [place] [address] Aliza Paul DO [address] [place] [address] Muscle spasm Social History Tobacco Use Types [...] Office Visit [facility] [address] [place] [address] Moira Chau MD [address] [place] [address] 02/08/2025 3:00 PM EDT Office Visit [facility] OPTOM[facility]RY [address] [place] [address] Kimberly Gonzalez, OD [address] [place] [address] documented as of this encounter Visit Diagnoses Diagnosis Muscle spasm Spasm of muscle documented in this encounter Additional Health Concerns Assessment Noted Time PHQ-9 Depression Total Score: 15 024 9:20 AM EDT documented as of this encounter Care Teams Audiology Doctor Relationship Specialty Start Date End Date Aliza Paul DO [address] [place] [address] PCP - General Family Medicine 02/23/12 Lesley Ingram Community Health Worker 05/17/24 Rosi Castro RN [address] [facility] [place] [place] [address] Tile Shader 05/17/24 [facility] 07/27/24 documented as of this encounter
--- OUTSIDE RECORDS SUMMARY | 2025-01-07 10:07 | XMS_ITS | Encounter Summary ---
Author Organization [employer] Address [address] [place] [address] 7 [place] [address] Care Team Providers Care Reproductive Endocrinologist Name Role Phone Aliza Paul DO Primary Care Provider [phone] Lesley Ingram Unavailable Unavailable Rosi Castro RN Unavailable [phone] Reason for Visit * Reason Comments Care Coordination CHW outreach for SDO H PT-1 and food needs-referral completed Encounter Details Date Type Department Care Team (Latest Contact Info) Description 12/13/2024 Patient Outreach [facility] [address] [place] [address] Aliza Paul DO [address] [place] [address] Care Coordination (CHW outreach for SDOH PT-1 [...] encounter Progress Notes * Matty Disla - 12/13/2024 9:16 AM EST CHW Matty Disla, placed outbound call to patient for assistance with SDOH as a referral was received by the provider. Patient's name and were confirmed. Patient screened positive for the following SDOH transportation & food insecurities. CHW requested PT-1 plus referred family to B pantries in the local area. Patient agree to follow up with plan. Patient educated on extended clinic hours on Mondays through Wednesdays, and Walk-In Urgent Care Located in [facility]. Patient provided with after-hours line for [facility], , which offer night time triage service and option to transfer to reservation sales agent provider if needed. documented in this encounter Plan of Treatment Upcoming Encounters Date Type Department Care Team (Late st Contact Info) Description 01/11/2025 2:00 PM EST Office Visit [facility] [address] [place] [phone] Moira Chau MD [address] [place] [address] 02/08/2025 3:00 PM EDT Office Visit [facility] OPTOMETRY [address] [place], [place] [phone] Kimberly Gonzalez, OD [address] [place] [address] documented as of this encounter Visit Diagnoses Not on filedocumented in this encounter Additional Health Concerns Assessment Noted Time PHQ-9 Depression Total Score: 15 024 9:20 AM EDT documented as of this encounter Care Teams Reproductive Endocrinologist Relationship Specialty Start Date End Date Aliza Paul DO [address] [place], [place] [phone] PCP - General Family Medicine 02/23/12 Lesley Ingram Community Health Worker 05/17/24 Rosi Castro RN [address] [place] [phone] Programming Equipment Operator 05/17/24 [facility] 07/27/24 documented as of this encounter
--- NOTE | 2025-01-07 10:14 | ED_ITS ---
HPI - Female Genitourinary General Chief complaint: Urogenital-Female Stated complaint: catheter issue Time Seen by Provider: 01/07/25 10:14 History of Present Illness ED Provider: Miguel Angel VELASCO Narrative: The patient is a 59-year-old woman who has a chronic indwelling Quinonez catheter. She says she has required a chronic indwelling catheter ever since she had a stroke several years ago. She says that last night her catheter tubing got caught in the mechanism of her recliner chair and the catheter was pulled out. She says the episode was not particularly painful because she says the balloon was not very full. This morning she came to the hospital to get a catheter replaced. She took her normal dose of lisinopril this morning. She did not take her normal dose of baclofen however. The patient does not have any concerns about a possible bladder infection. She says that she has had UTIs in the past and has no symptoms that make her think she has a UTI today. Related Data Home Medications ?Medication ?Instructions ?Recorded ?Confirmed fluticasone propionate 50 2 spray intranasal DAILY PRN 11/18/21 11/23/24 mcg/actuation nasal Allergy Symptoms spray,suspension aspirin 81 mg tablet,delayed 81 mg PO DAILY 12/07/23 11/23/24 release (Adult Aspirin Regimen) gabapentin 300 mg capsule 900 mg PO TID 06/11/24 11/23/24 acetaminophen 650 mg 650 mg PO Q12H PRN pain 07/20/24 11/23/24 tablet,extended release albuterol sulfate 90 mcg/actuation 2 puff inhalation Q4-6H PRN 07/20/24 11/23/24 aerosol inhaler Shortness Of Breath Or Wheezing baclofen 10 mg tablet 10 mg PO TID PRN muscle spasm 07/20/24 11/23/24 buspirone 10 mg tablet 10 mg BID 07/20/24 11/23/24 cholecalciferol (vitamin D3) 50 50 mcg DAILY 07/20/24 11/23/24 mcg (2,000 unit) capsule hydroxyzine HCl 50 mg tablet 50 mg PO Q6H PRN anxiety 07/20/24 11/23/24 venlafaxine 75 mg capsule,extended 75 mg PO DAILY 07/20/24 11/23/24 release 24 hr aripiprazole 2 mg tablet 2 mg PO DAILY 11/23/24 11/23/24 lisinopril 10 mg tablet 10 mg PO DAILY 11/23/24 11/23/24 Previous Rx's ?Medication ?Instructions ?Recorded nystatin 100,000 unit/gram topical 1 appl topical DAILY #15 grams 06/30/24 cream methimazole 10 mg tablet 10 mg PO DAILY #30 tabs 07/23/24 propranolol 10 mg tablet 10 mg PO TID #270 tabs 07/23/24 ascorbic acid (vitamin C) 1,000 mg 1,000 mg PO DAILY 90 days #90 tabs 11/16/24 tablet dextromethorphan-guaifenesin 10 10 ml PO Q6H PRN Cough #237 mL 11/25/24 mg-100 mg/5 mL oral syrup ipratropium 0.5 mg-albuterol 3 mg 3 ml inhalation RQ4H WHILE AWAKE 11/25/24 (2.5 mg base)/3 mL nebulization PRN Shortness Of Breath/Wheezing soln #90 mL methenamine hippurate 1 gram tablet 1 g PO DAILY 90 days #90 tabs 12/14/24 Allergies Allergy/AdvReac Type Severity Reaction Status Date / Time No Known Allergies Allergy Verified 01/07/25 09:44 Review of Systems Review of Systems: Yes all other systems are reviewed and are negative PMFSH Past Medical History Medical History Hyperthyroidism Hemiparesis affecting left side as late effect of stroke Hypotonic bladder H/O urinary retention GERD (gastroesophageal reflux disease) Hyperlipidemia HTN (hypertension) PFO (patent foramen ovale) Patellofemoral arthrosis Knee derangement Surgical History History of surgery Social History Social History Household Members: Other Household Members 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 Do you presently have visiting nurse or other home services: Yes (31/05 SILVERWARE ASSEMBLER THAT LIVES WITH PT) Alcohol intake: current Alcohol intake frequency: does not drink Alcohol type: beer Patient Tobacco Use Status: Never used Tobacco Substance Use Type: Marijuana Advance Directives: Yes Advance Directives on File: Yes Advance Directives Date on File: 10/27/22 Do you have a plan to hurt others: No Plan service: No Current occupational status: retired and disabled 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 She says she is uncomfortable but does not seem in any respiratory distress. HEENT: Other: Face is symmetrical. Mucous membranes are moist. Eyes: General: appearance normal, both eyes and all related structures Neck: Neck: Yes full ROM Resp: Effort & Inspection: normal respiratory effort Auscultation: clear to auscultation bilaterally Cardio: Rate: regular rate Rhythm: regular rhythm Heart sounds: S1 normal heart sound present and S2 normal heart sound present GI: Other: The patient had suprapubic tenderness. She seemed to have a full bladder. Skin: Other: Skin is pale and dry Neuro: Other: the patient is awake and alert with a normal mental status. Orientation is normal. Eye movements are intact. Speech is clear. Some left-sided weakness compared to the right. Extrem: Other: No pitting edema Medications Administered Discontinued Medications Generic Name Dose Route Start Last Admin Trade Name Freq PRN Reason Stop Dose Admin Baclofen 10 mg 01/07/25 11:16 01/07/25 11:33 Baclofen 10 Mg Tablet PO 01/07/25 11:17 10 mg ONCE ONE Administration Medical Decision Making Medical Decision Making [facility] Narrative: the patient has a chronic indwelling urinary catheter that was accidentally pulled out last night when she got the tubing caught in her recliner chair. She was uncomfortable with a sense of a full bladder. She was given a new catheter with improvement in her symptoms. Her blood pressures were high. She had not taken her usual morning baclofen. Her blood pressure improved after she was given baclofen. She feels well enough to return home. Discharge Plan Discharge Clinical Impression: Encounter for replacement of urinary catheter Patient Disposition: Home, Self-Care Additional Instructions: Please resume your normal medications at home. Please follow up with your regular medical providers. Return to the emergency room if worse. Prescriptions: No Action ascorbic acid (vitamin C) 1,000 mg tablet 1,000 mg PO DAILY 90 Days Qty: 90 1RF nystatin 100,000 unit/gram cream 1 appl topical DAILY Qty: 15 0RF venlafaxine 75 mg capsule,extended release 24hr 75 mg PO DAILY hydroxyzine HCl 50 mg tablet 50 mg PO Q6H PRN (Reason: anxiety) acetaminophen 650 mg tablet extended release 650 mg PO Q12H PRN (Reason: pain) buspirone 10 mg tablet 10 mg BID cholecalciferol (vitamin D3) 50 mcg (2,000 unit) capsule 50 mcg DAILY baclofen 10 mg tablet 10 mg PO TID PRN (Reason: muscle spasm) albuterol sulfate 90 mcg/actuation Hfa Aerosol Inhaler 2 puff INHALATION Q4-6H PRN (Reason: Shortness Of Breath Or Wheezing) propranolol 10 mg Tablet 10 mg PO TID Qty: 270 0RF Protocol: Hold for SBP/HR < HOLD for SBP < : 90 HOLD for HR < : 60 methimazole 10 mg Tablet 10 mg PO DAILY Qty: 30 0RF lisinopril 10 mg tablet 10 mg PO DAILY aripiprazole 2 mg tablet 2 mg PO DAILY dextromethorphan-guaifenesin 10-100 mg/5 mL Syrup 10 ml PO Q6H PRN (Reason: Cough) Qty: 237 0RF ipratropium-albuterol 0.5 mg-3 mg(2.5 mg base)/3 mL Solution For Nebulization 3 ml inhalation RQ4H WHILE AWAKE PRN (Reason: Shortness Of Breath/Wheezing) Qty: 90 0RF gabapentin 300 mg capsule 900 mg PO TID fluticasone propionate 50 mcg/actuation spray,suspension 2 spray intranasal DAILY PRN (Reason: Allergy Symptoms) aspirin [Adult Aspirin Regimen] 81 mg tablet,delayed release (DR/EC) 81 mg PO DAILY methenamine hippurate 1 gram tablet 1 g PO DAILY 90 Days Qty: 90 1RF Referrals: Aliza Paul DO [Primary Care Provider] - Print Language: French
--- NOTE | 2025-01-07 10:29 | PC.NURSE ---
16F urinary catheter inserted. Pt. is refusing the catheter leg securement device/sticker.
[2025-01-07] MEDS: Baclofen 10 MG TABLET PO (11:33)
== END 2025-01-07 15:17 | disposition home or self-care (01) ==
PROVIDERS: Emergency Provider Emergency Medicine; PCP Family Medicine
DX: T83.028A Displacement of other urinary catheter, initial encounter (principal); Y73.8 Miscellaneous gastroenterology and urology devices associated with adverse incidents, not elsewhere classified; Y92.89 Other specified places as the place of occurrence of the external cause; Z79.899 Other long term (current) drug therapy; Z87.440 Personal history of urinary (tract) infections
CPT/HCPCS: 51701; 99283; 99284

== ENCOUNTER 2025-01-22 15:04 | Emergency (ER) | payer MEDICAID, SELFPAY ==
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
[2025-01-22 15:18] VITALS: BP 144/82; PULSE 68; O2SAT 98
[2025-01-22 15:29] VITALS: BP 141/114; PULSE 67; RESP 16; TEMP 36.4; O2SAT 98; BMI 32.8
--- NOTE | 2025-01-22 15:56 | PC.NURSE ---
biba from home c/o leakage from covarrubias catheter that was just recently changed in the ED x 1 week ago. upon ED arrival - a&ox4. vss and up to date aside from being hypertensive - denies any chest pain/palpitations. pt denies any pain towards vaginal area. pt noted to have 16fr covarrubias catheter upon arrival to the ED. pt states it was recently placed x 1 week ago but noticed leaking [employer]. upon ED arrival - pt noted to be in moderate amount of clear/pale yellow urine. urine noted to be leaking from a spot in the drainage tubing - tubing was taped by EMS w/ little to no good effect. old catheter d/c'd. new 16fr covarrubias catheter w/ 10ml balloon inserted. 20ml of clear/pale yellow urine noted immediately post output. bladder scan performed post catheter insertion displaying 0ml. pt tolerated insertion well. pericare performed. pt turned/repositioned to comfort. pt on RA w/o difficulty - no sob/wob noted. respirations even/unlabored. plan of care ongoing. call jones placed within reach.
[2025-01-22] MEDS: 0.9 % Sodium Chloride 1,000 ML 999 ML IV (16:58)
--- NOTE | 2025-01-22 17:02 | PC.NURSE ---
repeat bladder scan obtained d/t insufficient urine output. repeat bladder scan displaying 34ml. provider notified/aware. 20gIV placed in the right AC - labs obtained/sent to lab. IVF infusing per provider order. will send UA when able. plan of care ongoing. call jones placed within reach.
[2025-01-22 17:03] LABS: MANUAL DIFF FLAG NO
[2025-01-22 17:04] LABS: Basophils Absolute Auto 0.1 X10*3/uL (0.0-0.2); Basophils Percent Auto 0.8 % (0-2); Eosinophils Absolute Auto 0.2 X10*3/uL (0.0-0.4); Eosinophils Percent Auto 2.3 % (0-4); Hematocrit 45.2 % (37.0-47.0); Hemoglobin 15.2 g/dl (12.0-16.0); Imm Gran Abs Auto 0.02 X10*3/uL (0.00-0.03); Imm Gran Pct Auto 0.3 % (0.0-0.4); Lymphocytes Absolute Auto 2.6 X10*3/uL (1.2-4.9); Lymphocytes Percent Auto 33.8 % (20-40); Mean Corpuscular HGB Conc 33.6 g/dl (31.0-35.0); Mean Corpuscular Hemoglobin 27.3 pg (27.0-33.0); Mean Corpuscular Volume 81.1 fL (80.0-98.0); Mean Platelet Volume 9.8 fL (9.4-12.3); Monocytes Absolute Auto 0.4 X10*3/uL (0.1-1.2); Monocytes Percent Auto 5.4 % (2-11); Neutrophils Absolute Auto 4.5 x10*3/uL (2.0-8.3); Neutrophils Percent Auto 57.4 % (45-73); Platelet Count 360 X10*3/uL (160-400); Red Blood Count 5.57 X10*6/uL (4.20-5.50); Red Cell Distribution Width 13.6 % (11.0-16.0); White Blood Count 7.8 X10*3/uL (4.8-10.8)
--- NOTE | 2025-01-22 17:28 | MHC.EDTECH ---
pt refused redraw on chemistry at this time, PA and nurse made aware
[2025-01-22] MEDS: hydrOXYzine HCL 25 MG TABLET PO (17:30)
[2025-01-22 17:57] LABS: Alanine Aminotransferase 8 U/L (0-31); Albumin Level 3.4 g/dL (3.5-5.0); Alkaline Phosphatase 64 U/L (39-117); Anion Gap 10 (12-20); Aspartate Amino Transferase 32 U/L (5-31); Bilirubin Total 0.4 mg/dL (0.0-1.0); Blood Urea Nitrogen 15 mg/dL (9-16); Calcium 8.4 mg/dL (8.4-10.2); Carbon Dioxide 24 mmol/L (22-29); Chloride 113 mmol/L (96-108); Estimated Glomerular Filt Rate > 60; Glucose Random 88 mg/dL (60-115); Potassium 4.8 mmol/L (3.3-5.1); Sodium 142 mmol/L (135-145); Total Protein 6.8 g/dL (6.5-8.0)
[2025-01-22 18:50] LABS: Appearance Urine Cloudy; Color Urine Yellow; Glucose Urine UA Negative (Negative); Leukocyte Esterase Urine Large (3+) (Negative); Nitrite Urine Negative (Negative); PH 5.5 (5.0-9.0); Specific Gravity - Urine 1.015 (1.005-1.025); UMIC TRIGGER UACC YES; Urine Blood Moderate (2+) (Negative); Urine Ketones Negative (Negative); Urine Protein Trace mg/dL (Neg-Trace)
[2025-01-22 19:00] LABS: Amphetamine Screen Urine Not Detected (Not Detect); Barbiturates, Urine Not Detected (Not Detect); Benzodiazepines Screen Urine Not Detected (Not Detect); Buprenorphine Scr Not Detected (Not Detect); Cannabinoid Screen Urine POSITIVE (Not Detect); Cocaine Screen Urine POSITIVE (Not Detect); Fentanyl, urine Not Detected (Not Detect); Methadone Screen, Urine Not Detected (Not Detect); Opiate Screen Urine Not Detected (Not Detect); Oxycodone Screen Urine Not Detected (Not Detect); Phencyclidine Screen Urine Not Detected (Not Detect)
[2025-01-22 19:02] LABS: Bacteria Urine Trace (None Seen); UACC Culture Trigger YES; WBC Urine >50 /HPF (0-5)
--- NOTE | 2025-01-22 19:18 | PC.NURSE ---
16fr catheter placed again- 300mls pale yellow urine coming from catheter- pt verbalizes relief at this time.
[2025-01-22 20:36] VITALS: BP 141/114; PULSE 67; RESP 16; TEMP 36.4; O2SAT 98
== END 2025-01-22 20:36 | disposition home or self-care (01) ==
PROVIDERS: Physician Assistant Medical; Emergency Provider Emergency Medicine Emergency Medical Services; PCP Family Medicine
DX: N31.9 Neuromuscular dysfunction of bladder, unspecified (principal); R11.2 Nausea with vomiting, unspecified; Z51.81 Encounter for therapeutic drug level monitoring; Z79.899 Other long term (current) drug therapy
CPT/HCPCS: 36415; 80053; 80307; 81001; 85025; 87086; 96360; 99284; 99285

== ENCOUNTER 2025-01-23 09:16 | Outpatient (REF) | payer MEDICAID, SELFPAY | END 2025-01-23 09:17 | disposition home or self-care (01) | LOC: HO.HOSX 09:16 | PROVIDERS: Visit Provider Orthopaedic Surgery | DX: Z13.89 Encounter for screening for other disorder (principal) ==

== ENCOUNTER 2025-03-22 10:44 | Emergency (ER) | payer MEDICAID, SELFPAY ==
[2025-03-22 10:55] VITALS: PULSE 83; O2SAT 97
[2025-03-22 10:58] VITALS: BP 181/96; PULSE 77; RESP 18; TEMP 36.4; O2SAT 95; BMI 35.7
--- NOTE | 2025-03-22 11:03 | ED.FEMALEGU ---
HPI - Female Genitourinary General Chief complaint: Urogenital-Female Stated complaint: ABD AND GROIN PAIN Time Seen by Provider: 03/22/25 11:02 Source: patient Mode of arrival: ambulatory Limitations: no limitations History of Present Illness ED Provider: Dr. Moshe Kam HPI Narrative: 59-year-old female with a history of hypotonic bladder with chronic Quinonez placement, peripheral arterial disease and cocaine use disorder who presents emergency department for evaluation of hematuria and dysuria through the Quinonez catheter for 3-4 days. She states it has also been a large amount of sediment in the tube. She states that the urine is red colored. She denied any systemic symptoms such as fever, chills, nausea, vomiting. She states she would have 3 or 4 days of diarrhea which have resolved. She describes the diarrhea as 1-2 loose stools per day with no blood in his stools. The patient has had urinary tract infections in the past. The patient's last UTI was 12/08/2024 and was positive forProteus mirabilis which was sensitive to cephalosporin and fluoroquinolones. Patient has also grown E coli which was sensitive to cephalosporins and fluoroquinolones. She had one urine culture which was positive for Enterococcus fasciitis which was not tested against cephalosporins but was sensitive to levofloxacin V Related Data Home Medications ?Medication ?Instructions ?Recorded ?Confirmed fluticasone propionate 50 2 spray intranasal DAILY PRN 11/18/21 11/23/24 mcg/actuation nasal Allergy Symptoms spray,suspension aspirin 81 mg tablet,delayed 81 mg PO DAILY 12/07/23 11/23/24 release (Adult Aspirin Regimen) gabapentin 300 mg capsule 900 mg PO TID 06/11/24 11/23/24 acetaminophen 650 mg 650 mg PO Q12H PRN pain 07/20/24 11/23/24 tablet,extended release albuterol sulfate 90 mcg/actuation 2 puff inhalation Q4-6H PRN 07/20/24 11/23/24 aerosol inhaler Shortness Of Breath Or Wheezing baclofen 10 mg tablet 10 mg PO TID PRN muscle spasm 07/20/24 11/23/24 buspirone 10 mg tablet 10 mg BID 07/20/24 11/23/24 cholecalciferol (vitamin D3) 50 50 mcg DAILY 07/20/24 11/23/24 mcg (2,000 unit) capsule hydroxyzine HCl 50 mg tablet 50 mg PO Q6H PRN anxiety 07/20/24 11/23/24 venlafaxine 75 mg capsule,extended 75 mg PO DAILY 07/20/24 11/23/24 release 24 hr aripiprazole 2 mg tablet 2 mg PO DAILY 11/23/24 11/23/24 lisinopril 10 mg tablet 10 mg PO DAILY 11/23/24 11/23/24 Previous Rx's ?Medication ?Instructions ?Recorded nystatin 100,000 unit/gram topical 1 appl topical DAILY #15 grams 06/30/24 cream methimazole 10 mg tablet 10 mg PO DAILY #30 tabs 07/23/24 propranolol 10 mg tablet 10 mg PO TID #270 tabs 07/23/24 ascorbic acid (vitamin C) 1,000 mg 1,000 mg PO DAILY 90 days #90 tabs 11/16/24 tablet dextromethorphan-guaifenesin 10 10 ml PO Q6H PRN Cough #237 mL 11/25/24 mg-100 mg/5 mL oral syrup ipratropium 0.5 mg-albuterol 3 mg 3 ml inhalation RQ4H WHILE AWAKE 11/25/24 (2.5 mg base)/3 mL nebulization PRN Shortness Of Breath/Wheezing soln #90 mL methenamine hippurate 1 gram tablet 1 g PO DAILY 90 days #90 tabs 12/14/24 levofloxacin 250 mg tablet 250 mg PO Q24H 7 days #7 tabs 03/22/25 oxycodone 5 mg tablet 5 mg PO Q6H PRN pain #10 tabs 03/22/25 Allergies Allergy/AdvReac Type Severity Reaction Status Date / Time No Known Allergies Allergy Verified 03/22/25 11:00 [facility] Past Medical History Medical History Hyperthyroidism Hemiparesis affecting left side as late effect of stroke Hypotonic bladder H/O urinary retention GERD (gastroesophageal reflux disease) Hyperlipidemia HTN (hypertension) PFO (patent foramen ovale) Patellofemoral arthrosis Knee derangement Surgical History History of surgery Social History Social History Household Members: Other Household Members Other:: LIVE-IN [employer] Housing: Apartment Do you presently have visiting nurse or other home services: Yes (31/05 [employer] THAT LIVES WITH PT) Alcohol intake: current Alcohol intake frequency: does not drink Alcohol type: beer Patient Tobacco Use Status: Never used Tobacco Substance Use Type: Marijuana Advance Directives Date on File: 11/27/24 service: No Current occupational status: retired and disabled 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 Physical Exam Vital Signs: Vital Signs: Last Vital Signs Temp 97.5 F 03/22/25 10:58 Pulse 77 03/22/25 10:58 Resp 18 03/22/25 10:58 BP 181/96 H 03/22/25 10:58 Pulse Ox 95 03/22/25 10:58 O2 Del Method Room Air 03/22/25 10:58 BMI result Body Mass Index 35.7 Vital signs revealed an elevated blood pressure otherwise Exam: General: Awake, alert in no distress Abdomen: soft, non-tender, nondistended, normal bowel sounds Pelvic Quinonez catheter in place Back: no vertebral tenderness, no CVAT Psych: Pleasant, cooperative Medical Decision Making Medical Decision Making MDM Narrative: 59-year-old female with a history of hypotonic bladder with chronic Quinonez placement, peripheral arterial disease and cocaine use disorder who presents emergency department for evaluation of hematuria and dysuria through the Quinonez catheter for 3-4 days. She states it has also been a large amount of sediment in the tube. She states that the urine is red colored. She denied any systemic symptoms such as fever, chills, nausea, vomiting. She states she would have 3 or 4 days of diarrhea which have resolved. She describes the diarrhea as 1-2 loose stools per day with no blood in his stools. The patient has had urinary tract infections in the past. The patient's last UTI was 12/08/2024 and was positive forProteus mirabilis which was sensitive to cephalosporin and fluoroquinolones. Patient has also grown E coli which was sensitive to cephalosporins and fluoroquinolones. She had one urine culture which was positive for Enterococcus fasciitis which was not tested against cephalosporins but was sensitive to levofloxacin Vital signs revealed an elevated blood pressure of 181/96. Physical examination revealed no abdominal tenderness. Differential diagnosis: ?Includes but is not limited to tract infection, urinary colonization, hematuria secondary to trauma from Quinonez insertion Course: 11:27 Patient has a has 600 cc of red colored urine in her Quinonez bag. There is white sediment noted in the tube connected to the Quinonez catheter. The patient had no abdominal tenderness and no significant systemic symptoms. The patient's urinalysis/microscopic was positive After reviewing her urine cultures, I think that the most appropriate antibiotic would be levofloxacin 250 mg q.12 hours times 7 days . She was given her 1st dose here in the emergency department. She was also treated with oxycodone 5 mg orally. Patient was given prescriptions for these 2 medicines. She was advised to take Tylenol for pain and for pain not relieved by these medications 7 bigger oxycodone as prescribed. She was given printed and verbal instructions and discharged home. The patient's Quinonez catheter is draining appropriately and I do not think that the patient needs a Quinonez catheter change this time Admission/Observation Consideration of admission/observation: Escalation of care including admission/observation considered (No) Lab Data MDM Lab Attestation statement: I reviewed the patient's lab results. My interpretation patient's laboratory evaluation is as follows: Urinalysis was concentrated, positive for protein, blood, nitrates, leukocyte esterase. Microscopic revealed greater than 20 RBCs, greater than 50 WBCs, 3-5 squamous cells and 4+ bacteria. Prescription Management I considered prescription management with: Pain Medication (Oxycodone) and Antibiotic (Levofloxacin) Chronic Conditions Patient?s care impacted by: Other (Hypotonic bladder with chronic indwelling Quinonez) Discharge Plan Discharge Clinical Impression: Dysuria Hematuria Qualifiers: Hematuria type: gross Qualified Code(s): R31.0 - Gross hematuria Patient Disposition: Home, Self-Care Instructions: Urinary Tract Infection in Women (ED) Additional Instructions: At this time, since your Quinonez catheter was recently, I do not think that we need to change the catheter at this time in the emergency department. The blood in your urine and the burning around the catheter is consistent with a urinary tract infection. Take cefuroxime 250 mg, 1 pill every 12 hours for 7 days. Take Tylenol (acetaminophen) 500 mg pills, 2 pills every 6 hours as needed for pain. For pain not relieved by Tylenol take oxycodone 5 mg pills, 1 pill every 6 hours as needed for pain. Do not drive or work while taking this medication since they can cause sleepiness. Oxycodone is a narcotic medication that can be addicting. If you are concerned about addiction you can ask the pharmacist for less pills or do not get this prescription filled. Follow-up with your doctor in 2 days. Please return to the emergency department if your symptoms get worse or if you develop any symptoms that are concerning to you. Prescriptions: New oxycodone 5 mg tablet 5 mg PO Q6H PRN (Reason: pain) Qty: 10 0RF Rx Instructions: Patient may request partial refill; Partial Fill upon patient request. levofloxacin 250 mg tablet 250 mg PO Q24H 7 Days Qty: 7 0RF No Action ascorbic acid (vitamin C) 1,000 mg tablet 1,000 mg PO DAILY 90 Days Qty: 90 1RF nystatin 100,000 unit/gram cream 1 appl topical DAILY Qty: 15 0RF venlafaxine 75 mg capsule,extended release 24hr 75 mg PO DAILY hydroxyzine HCl 50 mg tablet 50 mg PO Q6H PRN (Reason: anxiety) acetaminophen 650 mg tablet extended release 650 mg PO Q12H PRN (Reason: pain) buspirone 10 mg tablet 10 mg BID cholecalciferol (vitamin D3) 50 mcg (2,000 unit) capsule 50 mcg DAILY baclofen 10 mg tablet 10 mg PO TID PRN (Reason: muscle spasm) albuterol sulfate 90 mcg/actuation Hfa Aerosol Inhaler 2 puff INHALATION Q4-6H PRN (Reason: Shortness Of Breath Or Wheezing) propranolol 10 mg Tablet 10 mg PO TID Qty: 270 0RF Protocol: Hold for SBP/HR < HOLD for SBP < : 90 HOLD for HR < : 60 methimazole 10 mg Tablet 10 mg PO DAILY Qty: 30 0RF lisinopril 10 mg tablet 10 mg PO DAILY aripiprazole 2 mg tablet 2 mg PO DAILY dextromethorphan-guaifenesin 10-100 mg/5 mL Syrup 10 ml PO Q6H PRN (Reason: Cough) Qty: 237 0RF ipratropium-albuterol 0.5 mg-3 mg(2.5 mg base)/3 mL Solution For Nebulization 3 ml inhalation RQ4H WHILE AWAKE PRN (Reason: Shortness Of Breath/Wheezing) Qty: 90 0RF gabapentin 300 mg capsule 900 mg PO TID fluticasone propionate 50 mcg/actuation spray,suspension 2 spray intranasal DAILY PRN (Reason: Allergy Symptoms) aspirin [Adult Aspirin Regimen] 81 mg tablet,delayed release (DR/EC) 81 mg PO DAILY methenamine hippurate 1 gram tablet 1 g PO DAILY 90 Days Qty: 90 1RF Print Language: [place]
[2025-03-22 11:11] LABS: Appearance Urine Turbid; Color Urine Yellow; Glucose Urine UA Negative (Negative); Leukocyte Esterase Urine Moderate (2+) (Negative); Nitrite Urine Positive (Negative); Specific Gravity - Urine >= 1.030 (1.005-1.025); UMIC TRIGGER UACC YES; Urine Blood Large (3+) (Negative); Urine Ketones Negative (Negative); Urine Protein 300 (3+) mg/dL (Neg-Trace)
[2025-03-22 11:24] LABS: Bacteria Urine 4+ (None Seen); Hyaline Casts Urine 0-2 /LPF (0-2); RBC Urine >20 /HPF (0-2); UACC Culture Trigger YES; WBC Urine >50 /HPF (0-5)
[2025-03-22] MEDS: oxyCODONE HCl Immed Release 5 MG TABLET PO (11:33)
[2025-03-22 12:05] VITALS: BP 149/92; PULSE 73; RESP 16; O2SAT 95
[2025-03-22] MEDS: levoFLOXacin 250 MG TABLET PO (12:11)
[2025-03-22 12:13] VITALS: BP 149/92; PULSE 73; RESP 16; TEMP 36.7; O2SAT 95
== END 2025-03-22 12:14 | disposition home or self-care (01) ==
PROVIDERS: Emergency Provider Emergency Medicine Emergency Medical Services; PCP Family Medicine
DX: R31.0 Gross hematuria (principal); R30.0 Dysuria; Z96.0 Presence of urogenital implants
CPT/HCPCS: 81001; 87086; 87088; 87186; 99283

== ENCOUNTER 2025-03-26 00:19 | Emergency (ER) | payer MEDICAID, SELFPAY ==
[2025-03-26 00:25] VITALS: BP 140/84; PULSE 102; PULSE 94; RESP 16; TEMP 36.4; O2SAT 96; O2SAT 97; BMI 39.1
[2025-03-26 00:31] VITALS: BP 158/105; PULSE 94; RESP 16; TEMP 36.4; O2SAT 97
[2025-03-26 03:55] VITALS: BP 167/108; PULSE 81; RESP 20; TEMP 37.1; O2SAT 95
[2025-03-26 05:52] LABS: Appearance Urine Cloudy; Color Urine Yellow; Glucose Urine UA Negative (Negative); Leukocyte Esterase Urine Moderate (2+) (Negative); Nitrite Urine Positive (Negative); PH 6.5 (5.0-9.0); UMIC TRIGGER UACC YES; Urine Blood Large (3+) (Negative); Urine Ketones Negative (Negative); Urine Protein 300 (3+) mg/dL (Neg-Trace)
--- NOTE | 2025-03-26 06:04 | ED.FEMALEGU ---
HPI - Female Genitourinary General Chief complaint: Urogenital-Female Stated complaint: UTI pain blood in cath bag here 3 days ago dx UTI Time Seen by Provider: 03/26/25 05:32 Source: patient and EMS Mode of arrival: EMS Limitations: no limitations History of Present Illness ED Provider: Dr. Sharmin Back HPI Narrative: Patient comes to the emergency room reporting pain in the urethra opening. Patient states that she has a Quinonez catheter which was changed a week ago and she feels irritation of the very opening of the urethra. Patient denies fever chills, denies abdominal pain. Patient was seen here 2 days ago, started on antibiotics. Patient states that she was given a script for oxycodone she is out of it and would like some more because it really helps with the pain. Related Data Home Medications ?Medication ?Instructions ?Recorded ?Confirmed fluticasone propionate 50 2 spray intranasal DAILY PRN 11/18/21 11/23/24 mcg/actuation nasal Allergy Symptoms spray,suspension aspirin 81 mg tablet,delayed 81 mg PO DAILY 12/07/23 11/23/24 release (Adult Aspirin Regimen) gabapentin 300 mg capsule 900 mg PO TID 06/11/24 11/23/24 acetaminophen 650 mg 650 mg PO Q12H PRN pain 07/20/24 11/23/24 tablet,extended release albuterol sulfate 90 mcg/actuation 2 puff inhalation Q4-6H PRN 07/20/24 11/23/24 aerosol inhaler Shortness Of Breath Or Wheezing baclofen 10 mg tablet 10 mg PO TID PRN muscle spasm 07/20/24 11/23/24 buspirone 10 mg tablet 10 mg BID 07/20/24 11/23/24 cholecalciferol (vitamin D3) 50 50 mcg DAILY 07/20/24 11/23/24 mcg (2,000 unit) capsule hydroxyzine HCl 50 mg tablet 50 mg PO Q6H PRN anxiety 07/20/24 11/23/24 venlafaxine 75 mg capsule,extended 75 mg PO DAILY 07/20/24 11/23/24 release 24 hr aripiprazole 2 mg tablet 2 mg PO DAILY 11/23/24 11/23/24 lisinopril 10 mg tablet 10 mg PO DAILY 11/23/24 11/23/24 Previous Rx's ?Medication ?Instructions ?Recorded nystatin 100,000 unit/gram topical 1 appl topical DAILY #15 grams 06/30/24 cream methimazole 10 mg tablet 10 mg PO DAILY #30 tabs 07/23/24 propranolol 10 mg tablet 10 mg PO TID #270 tabs 07/23/24 ascorbic acid (vitamin C) 1,000 mg 1,000 mg PO DAILY 90 days #90 tabs 11/16/24 tablet dextromethorphan-guaifenesin 10 10 ml PO Q6H PRN Cough #237 mL 11/25/24 mg-100 mg/5 mL oral syrup ipratropium 0.5 mg-albuterol 3 mg 3 ml inhalation RQ4H WHILE AWAKE 11/25/24 (2.5 mg base)/3 mL nebulization PRN Shortness Of Breath/Wheezing soln #90 mL methenamine hippurate 1 gram tablet 1 g PO DAILY 90 days #90 tabs 12/14/24 levofloxacin 250 mg tablet 250 mg PO Q24H 7 days #7 tabs 03/22/25 oxycodone 5 mg tablet 5 mg PO Q6H PRN pain #10 tabs 03/22/25 levofloxacin 500 mg tablet 500 mg PO DAILY #5 tabs 03/26/25 Allergies Allergy/AdvReac Type Severity Reaction Status Date / Time No Known Allergies Allergy Verified 03/26/25 00:27 Review of Systems Review of Systems: Constitutional : No Weight loss, No Fever, No Chills, No Night Sweats, No Fatigue, No Malaise ENT/Mouth : No Hearing loss, No Ear Pain, No Nasal Congestion, No Sinus Pain, No Hoarseness, No sore throat, No Rhinorrhea, No Swallowing Difficulty Eyes: No Eye Pain, No Swelling, No Redness, No Foreign Body, No Discharge, No Vision Changes Cardiovascular : No Chest Pain, No SOB, No Dyspnea on Exertion, No Orthopnea, No Edema, No Palpitations Respiratory : No Cough, No Sputum, No Wheezing, No Smoke Exposure, No Dyspnea Gastrointestinal : No Nausea, No Vomiting, No Diarrhea, No Constipation, No abdominal Pain, No Hematochezia, No Melena Genitourinary : Complaining of irritation in the urethra due to the Quinonez catheter, No Dysuria, No Urinary Frequency, No Hematuria, No Urinary Incontinence, No Urgency, No Flank Pain, No Urinary Flow Changes, No Hesitancy Musculoskeletal : No joint pain, No Myalgias, No Joint Swelling Skin : No Skin Lesions, No rash Neuro : No Weakness, No Numbness, No Paresthesias, No Loss of Consciousness, No Dizziness, No Headache Psych : No Anxiety/Panic, No Depression, No SI/HI/AH/VH, No Social Issues, Heme/Lymph: No Bruising, No Bleeding,No Lymphadenopathy Endocrine : No Polyuria, No Polydipsia, No Temperature Intolerance [facility] Past Medical History Medical History Hyperthyroidism Hemiparesis affecting left side as late effect of stroke Hypotonic bladder H/O urinary retention GERD (gastroesophageal reflux disease) Hyperlipidemia HTN (hypertension) PFO (patent foramen ovale) Patellofemoral arthrosis Knee derangement Surgical History History of surgery Social History Social History Household Members: Other Household Members Other:: LIVE-IN [facility] Housing: Apartment Do you presently have visiting nurse or other home services: Yes (31/05 [facility] THAT LIVES WITH PT) Alcohol intake: current Alcohol intake frequency: does not drink Alcohol type: beer Patient Tobacco Use Status: Never used Tobacco Smoked in Last 30 Days: No Use of substances other than those prescribed or required for medical reasons: Yes Substance Use Type: Marijuana Advance Directives: Yes Advance Directives on File: Yes Advance Directives Date on File: 11/27/24 Patient : No service: No Current occupational status: retired and disabled 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 Oriented X3. No acute distress. Eyes: Pupils equal, round and reactive to light. ENT: Pharynx normal. Neck: Normal inspection. Neck supple. No lymph nodes noted. No crepitus CVS: Normal heart rate and rhythm. Pulses normal. Normal S1 and S2 Respiratory: No respiratory distress. Breath sounds normal. No Wheezing. No rales Abdomen: Soft and nontender. No rigidity. No distention. : Quinonez catheter in place, draining appropriately Skin: Skin warm and dry. Normal skin color. Normal skin turgor. Extremities: No lower extremity edema. No Lacerations. No Rash Neuro: Oriented X 3. No motor deficit. No sensory deficit. Moving all extremities. No slurred speech. CN 2 through 12 grossly intact Psych: calm, cooperative, normal affect Medical Decision Making Medical Decision Making [facility] Narrative: Patient's urine looks a bit on darker site. Does have some sediment. Patient's urine tested positive for UTI. Patient is already on antibiotics for UTI. Patient was placed on levofloxacin 250 mg, I will go ahead and increase it to 500 mg. Patient has no fever or chills. Vitals are stable We offered to change the patient's Quinonez catheter, patient declined. Patient declined lab work. Patient's only request for this visit is to get oxycodone for pain. I discussed with the patient that oxycodone is not quite indicated for Quinonez catheter pain. Patient was given a dose of tramadol. Two days ago, patient was given a script for oxycodone and she ran out of them. Differential Diagnosis Differential Diagnoses: The differential diagnosis associated with the presentation includes (UTI, Quinonez catheter irritation, medication seeking) Lab Data [facility] Lab Attestation statement: I reviewed the patient's lab results. Labs: Lab Results 03/26/25 Range/Units 05:47 Urine Color Yellow Urine Appearance Cloudy Urine pH 6.5 (5.0-9.0) Ur Specific [place] 1.020 (1.005-1.025) Urine Protein 300 (3+) H (Neg-Trace) mg/dL Urine Glucose (UA) Negative (Negative) mg/dL Urine Ketones Negative (Negative) mg/dL Urine Blood Large (3+) H (Negative) Urine Nitrite Positive H (Negative) Ur Leukocyte Esterase Moderate (2+) H (Negative) Discharge Plan Discharge Clinical Impression: Quinonez catheter in place, UTI (urinary tract infection) Patient Disposition: Home, Self-Care Instructions: Urinary Tract Infection in Women (ED) Additional Instructions: Please follow-up with your primary care physician tomorrow. If you have any worsening or new symptoms, please return to the emergency room or call 911 Prescriptions: New levofloxacin 500 mg tablet 500 mg PO DAILY Qty: 5 0RF No Action ascorbic acid (vitamin C) 1,000 mg tablet 1,000 mg PO DAILY 90 Days Qty: 90 1RF nystatin 100,000 unit/gram cream 1 appl topical DAILY Qty: 15 0RF venlafaxine 75 mg capsule,extended release 24hr 75 mg PO DAILY hydroxyzine HCl 50 mg tablet 50 mg PO Q6H PRN (Reason: anxiety) acetaminophen 650 mg tablet extended release 650 mg PO Q12H PRN (Reason: pain) buspirone 10 mg tablet 10 mg BID cholecalciferol (vitamin D3) 50 mcg (2,000 unit) capsule 50 mcg DAILY baclofen 10 mg tablet 10 mg PO TID PRN (Reason: muscle spasm) albuterol sulfate 90 mcg/actuation Hfa Aerosol Inhaler 2 puff INHALATION Q4-6H PRN (Reason: Shortness Of Breath Or Wheezing) propranolol 10 mg Tablet 10 mg PO TID Qty: 270 0RF Protocol: Hold for SBP/HR < HOLD for SBP < : 90 HOLD for HR < : 60 methimazole 10 mg Tablet 10 mg PO DAILY Qty: 30 0RF lisinopril 10 mg tablet 10 mg PO DAILY aripiprazole 2 mg tablet 2 mg PO DAILY dextromethorphan-guaifenesin 10-100 mg/5 mL Syrup 10 ml PO Q6H PRN (Reason: Cough) Qty: 237 0RF ipratropium-albuterol 0.5 mg-3 mg(2.5 mg base)/3 mL Solution For Nebulization 3 ml inhalation RQ4H WHILE AWAKE PRN (Reason: Shortness Of Breath/Wheezing) Qty: 90 0RF gabapentin 300 mg capsule 900 mg PO TID oxycodone 5 mg tablet 5 mg PO Q6H PRN (Reason: pain) Qty: 10 0RF Rx Instructions: Patient may request partial refill; Partial Fill upon patient request. levofloxacin 250 mg tablet 250 mg PO Q24H 7 Days Qty: 7 0RF fluticasone propionate 50 mcg/actuation spray,suspension 2 spray intranasal DAILY PRN (Reason: Allergy Symptoms) aspirin [Adult Aspirin Regimen] 81 mg tablet,delayed release (DR/EC) 81 mg PO DAILY methenamine hippurate 1 gram tablet 1 g PO DAILY 90 Days Qty: 90 1RF Print Language: [place]
[2025-03-26] MEDS: levoFLOXacin 500 MG TABLET PO (06:29)
[2025-03-26] MEDS: traMADoL HCL 50 MG TABLET PO (06:30)
[2025-03-26 06:32] VITALS: BP 145/95; PULSE 73; RESP 18; TEMP 36.6; O2SAT 96
[2025-03-26 06:43] LABS: Bacteria Urine 4+ (None Seen); Hyaline Casts Urine >20 /LPF (0-2); RBC Urine >20 /HPF (0-2); Squamous Epithelial Cell Urine 0-2 /HPF (0-2); UACC Culture Trigger YES; WBC Urine >50 /HPF (0-5)
== END 2025-03-26 07:39 | disposition home or self-care (01) ==
PROVIDERS: Emergency Provider Emergency Medicine
DX: T83.511A Infection and inflammatory reaction due to indwelling urethral catheter, initial encounter (principal); N39.0 Urinary tract infection, site not specified; T83.84XA Pain due to genitourinary prosthetic devices, implants and grafts, initial encounter; Y73.8 Miscellaneous gastroenterology and urology devices associated with adverse incidents, not elsewhere classified; Y92.9 Unspecified place or not applicable; Z79.899 Other long term (current) drug therapy
CPT/HCPCS: 81001; 87086; 99283; 99284

== ENCOUNTER 2025-04-02 13:08 | Emergency (ER) | payer MEDICAID, SELFPAY ==
--- NOTE | ~2025-04-02 | XR_ITS ---
CLINICAL HISTORY: tachypnea Chest Radiographs, 2 views Comparison: CR/SR - XR CHEST 1V - 12/08/24 11:51 EST CR/SR - XR CHEST 1V - 11/23/24 12:07 EST CR - XR CHEST 1V - 11/19/24 00:41 EST CR/SR - XR CHEST 2V - 08/14/24 12:05 EDT Findings: Prominent sized heart. Normal mediastinal contours. No pneumothorax. No opacity. No pleural effusion. Normal upper abdomen. No acute fracture. Impression: No acute findings. This document has been electronically signed by: Cristel Low MD on 04/02/2025 14:40:26
[2025-04-02 13:13] VITALS: BP 170/118; BP 200/140; PULSE 106; PULSE 115; RESP 24; TEMP 36.7; O2SAT 96; BMI 34.1
--- NOTE | 2025-04-02 13:28 | ED.GENADULT ---
HPI - General Adult General Chief complaint: Nausea/Vomiting/Diarrhea Stated complaint: NAUSEA DIARRHEA Time Seen by Provider: 04/02/25 13:28 Source: patient, EMS, RN notes reviewed and old records reviewed Mode of arrival: EMS Limitations: no limitations History of Present Illness ED Provider: Bruno HPI narrative: Patient is a 59-year-old female with history of hypotonic bladder with chronic Quinonez placement, peripheral arterial disease and cocaine use disorder presenting to the emergency department with complaint of nausea, vomiting, and diarrhea which began last night. Also complaining of discomfort to urethra in area of indwelling urinary catheter. Recently treated for UTI with levofloxacin, states catheter was changed around 3 weeks ago. Denies abdominal pain. MD complaint: nausea, vomiting, diarrhea Onset (ago): hour(s) Related Data Home Medications ?Medication ?Instructions ?Recorded ?Confirmed fluticasone propionate 50 2 spray intranasal DAILY PRN 11/18/21 11/23/24 mcg/actuation nasal Allergy Symptoms spray,suspension aspirin 81 mg tablet,delayed 81 mg PO DAILY 12/07/23 11/23/24 release (Adult Aspirin Regimen) gabapentin 300 mg capsule 900 mg PO TID 06/11/24 11/23/24 acetaminophen 650 mg 650 mg PO Q12H PRN pain 07/20/24 11/23/24 tablet,extended release albuterol sulfate 90 mcg/actuation 2 puff inhalation Q4-6H PRN 07/20/24 11/23/24 aerosol inhaler Shortness Of Breath Or Wheezing baclofen 10 mg tablet 10 mg PO TID PRN muscle spasm 07/20/24 11/23/24 buspirone 10 mg tablet 10 mg BID 07/20/24 11/23/24 cholecalciferol (vitamin D3) 50 50 mcg DAILY 07/20/24 11/23/24 mcg (2,000 unit) capsule hydroxyzine HCl 50 mg tablet 50 mg PO Q6H PRN anxiety 07/20/24 11/23/24 venlafaxine 75 mg capsule,extended 75 mg PO DAILY 07/20/24 11/23/24 release 24 hr aripiprazole 2 mg tablet 2 mg PO DAILY 11/23/24 11/23/24 lisinopril 10 mg tablet 10 mg PO DAILY 11/23/24 11/23/24 Previous Rx's ?Medication ?Instructions ?Recorded nystatin 100,000 unit/gram topical 1 appl topical DAILY #15 grams 06/30/24 cream methimazole 10 mg tablet 10 mg PO DAILY #30 tabs 07/23/24 propranolol 10 mg tablet 10 mg PO TID #270 tabs 07/23/24 ascorbic acid (vitamin C) 1,000 mg 1,000 mg PO DAILY 90 days #90 tabs 11/16/24 tablet dextromethorphan-guaifenesin 10 10 ml PO Q6H PRN Cough #237 mL 11/25/24 mg-100 mg/5 mL oral syrup ipratropium 0.5 mg-albuterol 3 mg 3 ml inhalation RQ4H WHILE AWAKE 11/25/24 (2.5 mg base)/3 mL nebulization PRN Shortness Of Breath/Wheezing soln #90 mL methenamine hippurate 1 gram tablet 1 g PO DAILY 90 days #90 tabs 12/14/24 levofloxacin 250 mg tablet 250 mg PO Q24H 7 days #7 tabs 03/22/25 oxycodone 5 mg tablet 5 mg PO Q6H PRN pain #10 tabs 03/22/25 levofloxacin 500 mg tablet 500 mg PO DAILY #5 tabs 03/26/25 loperamide 2 mg capsule 2 mg PO Q6H PRN loose stool #10 04/02/25 caps ondansetron 4 mg disintegrating 4 mg PO Q8H PRN nausea and 04/02/25 tablet vomiting #10 tabs sulfamethoxazole 800 1 tab PO BID #20 tabs 04/02/25 mg-trimethoprim 160 mg tablet Allergies Allergy/AdvReac Type Severity Reaction Status Date / Time No Known Allergies Allergy Verified 04/02/25 13:24 Review of Systems Review of Systems: As per HPI Yes all other systems are reviewed and are negative Constitutional: Constitutional: Reports as per HPI PMF Past Medical History Medical History Hyperthyroidism Hemiparesis affecting left side as late effect of stroke Hypotonic bladder H/O urinary retention GERD (gastroesophageal reflux disease) Hyperlipidemia HTN (hypertension) PFO (patent foramen ovale) Patellofemoral arthrosis Knee derangement Surgical History History of surgery Social History Social History Household Members: Other Household Members 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: Apartment Do you presently have visiting nurse or other home services: Yes (31/05 OCCUPATIONAL PHYSICIAN THAT LIVES WITH PT) Alcohol intake: current Alcohol intake frequency: does not drink Alcohol type: beer Patient Tobacco Use Status: Never used Tobacco Smoked in Last 30 Days: No Use of substances other than those prescribed or required for medical reasons: No Substance Use Type: Marijuana Advance Directives: Yes Advance Directives on File: Yes Advance Directives Date on File: 11/27/24 service: No Current occupational status: retired and disabled 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 Blood pressure elevated. Heart rate normal. Respiratory rate slightly tachypneic on arrival, improved without intervention. Temperature normal. Oxygen saturation normal. Const Other: Actively vomiting clear fluid on arrival to the ED General: cooperative and no acute distress Orientation/consciousness: oriented to person, oriented to place, oriented to time and patient oriented x3 Limitations: no limitations HENMT Head: Yes normocephalic and Yes atraumatic Ears: external ears normal General nose exam: Normal external nose present Face and sinus: Yes face symmetric Mouth: oropharynx normal and moist mucous membranes Throat: Yes uvula midline Eyes Pupils: Equal, round and reactive pupils present Neck Neck: Yes normal visual inspection and Yes supple Resp Effort & Inspection: normal respiratory effort and able to speak in complete sentences Auscultation: clear to auscultation bilaterally Cardio Rate: regular rate Rhythm: regular rhythm Heart sounds: S1 normal heart sound present and S2 normal heart sound present GI Palpation (GI): Soft to palpation and nontender Auscultation: normoactive bowel sounds Other: Indwelling urinary catheter draining clear yellow urine General: Yes no CVA tenderness Back/Spine/Pelvis Back: no CVA tenderness Skin General skin exam: elasticity normal and turgor normal Neuro General: oriented to person, oriented to place, oriented to time, patient oriented x3, moves all extremities, no focal motor deficits and CN's II-XI intact bilaterally Cranial nerves: Yes Equal, round and reactive pupils present Cognition (Neuro): normal cognition Extrem General: Yes full ROM, Yes no pedal edema and Yes no calf tenderness Psych Mental Status: mental status grossly normal Affect: normal affect Thought process: Normal thought process present Medications Administered Generic Name Dose Route Start Last Admin Trade Name Freq PRN Reason Stop Dose Admin Magnesium Sulfate 2 gm in 50 mls @ 25 mls/hr 04/02/25 17:51 04/02/25 18:26 Magnesium Sulfate/H2o IV 04/02/25 19:50 25 mls/hr ONCE ONE Administration Discontinued Medications Generic Name Dose Route Start Last Admin Trade Name Freq PRN Reason Stop Dose Admin Sodium Chloride 1,000 mls @ 999 mls/hr 04/02/25 13:45 04/02/25 15:52 Ns IV 04/02/25 14:45 Infused .Q1H1M CHERI Infusion Lidocaine HCl 1 appl 04/02/25 17:14 04/02/25 18:15 Lidocaine Hcl 2 % Jelly 5 Ml Tube TOPICAL 04/02/25 17:15 Not Given ONCE ONE Protocol Lidocaine HCl 15 ml 04/02/25 18:15 04/02/25 18:29 Lidocaine Hcl Viscous 2 % 15 Ml Solution MUCOUS MEM 04/02/25 18:16 15 ml ONCE ONE Administration Ondansetron HCl 4 mg 04/02/25 13:32 04/02/25 14:01 Ondansetron Hcl 4 Mg/2 Ml Vial IVPUSH 04/02/25 13:33 4 mg ONCE ONE Administration Medical Decision Making Medical Decision Making [facility] Narrative: Patient is a 59-year-old female with history of hypotonic bladder with chronic Quinonez placement, peripheral arterial disease and cocaine use disorder presenting to the emergency department with complaint of nausea, vomiting, and diarrhea which began last night. On exam patient is awake, A+Ox3, hypertensive, mildly tachycardic, slightly increased respiratory rate, afebrile normal neurological exam without focal deficits, physical exam findings as above. Given reported symptoms and physical exam findings, initial differential includes but is not limited to gastroenteritis, C. diff colitis, electrolyte abnormality, dehydration, UTI. Labs notable for slight leukocytosis with left shift, likely from vomiting, elevated BUN, hypomagnesemia, elevated troponin, no delta on repeat likely demand,normal lactic. Do not suspect sepsis at 13:49. EKG shows sinus tachycardia with PACs. X-ray chest notable for no evidence of pneumonia. My interpretation is in agreement with the radiologist's interpretation. Patient was previously being treated for UTI with levofloxacin. Review of urine culture shows urine positive for MRSA which would not be covered by levofloxacin as well as gram negative jalen. Feel patient is stable for discharge home. She has been able to tolerate p.o. in the ED. Will discharge on Zofran as well as Bactrim for UTI. Patient is specifically requesting prescription for Imodium. Patient unable to provide stool sample in the ED for GI panel/C diff testing. Advised patient to follow up with PCP. Return precautions discussed. Patient verbalized understanding of and agreement with plan. Differential Diagnosis Differential Diagnoses: The differential diagnosis associated with the presentation includes as per [facility] Admission/Observation Consideration of admission/observation: Escalation of care including admission/observation considered Patient would have been admitted to the hospital had their work up had any findings where hospital admission was appropriate and their clinical presentation warranted hospital admission. Lab Data [facility] Lab Attestation statement: I reviewed the patient's lab results. as per [facility] 04/02/25 13:49 04/02/25 13:49 Labs: Lab Results 04/02/25 04/02/25 04/02/25 Range/Units 13:49 13:58 14:12 WBC 11.3 H (4.8-10.8) X10*3/uL RBC 6.05 H (4.20-5.50) X10*6/uL Hgb 16.7 H (12.0-16.0) g/dl Hct 47.7 H (37.0-47.0) % MCV 78.8 L (80.0-98.0) fL MCH 27.6 (27.0-33.0) pg MCHC 35.0 (31.0-35.0) g/dl RDW 12.4 (11.0-16.0) % Plt Count 297 (160-400) X10*3/uL MPV 9.3 L (9.4-12.3) fL Immature Gran % (Auto) 0.5 H (0.0-0.4) % Neut % (Auto) 89.7 H (45-73) % Lymph % (Auto) 3.7 L (20-40) % [place] % (Auto) 4.0 (2-11) % Eos % (Auto) 1.8 (0-4) % Baso % (Auto) 0.3 (0-2) % Lymph # (Auto) 0.4 L (1.2-4.9) X10*3/uL [place] # (Auto) 0.5 (0.1-1.2) X10*3/uL Eos # (Auto) 0.2 (0.0-0.4) X10*3/uL Baso # (Auto) 0.0 (0.0-0.2) X10*3/uL Abs Immat Gran (auto) 0.06 H (0.00-0.03) X10*3/uL Absolute Neuts (auto) 10.1 H (2.0-8.3) x10*3/uL Absolute Nucleated RBC 0.000 (0.0-0.012) X10*3/uL Nucleated RBC % (auto) 0.0 (0.0-0.2) /100WBC Sodium 140 (135-145) mmol/L Potassium 4.2 (3.3-5.1) mmol/L Chloride 109 H (96-108) mmol/L Carbon Dioxide 20 L (22-29) mmol/L Anion Gap 15 (12-20) BUN 25 H (9-16) mg/dL Creatinine 0.75 (0.5-1.4) mg/dL Estim Creat Clear Calc 84.5 Estimated GFR > 60 Random Glucose 147 H (60-115) mg/dL Lactic Acid 1.7 (0.5-2.0) mmol/L Calcium 9.7 D (8.4-10.2) mg/dL Magnesium 1.5 L (1.6-2.6) mg/dL Total Bilirubin 0.6 (0.0-1.0) mg/dL AST 24 (5-31) U/L ALT 11 (0-31) U/L Alkaline Phosphatase 69 (39-117) U/L Troponin I High Sens 19.0 H D (<3.5-17.0) ng/L Total Protein 7.4 (6.5-8.0) g/dL Albumin 4.2 (3.5-5.0) g/dL Urine Color Yellow Urine Appearance Cloudy Urine pH 5.5 (5.0-9.0) Ur Specific [place] >= 1.030 H (1.005-1.025) Urine Protein 100 (2+) H (Neg-Trace) mg/dL Urine Glucose (UA) Negative (Negative) mg/dL Urine Ketones Trace (Negative) mg/dL Urine Blood Large (3+) H (Negative) Urine Nitrite Negative (Negative) Ur Leukocyte Esterase Moderate (2+) H (Negative) Urine RBC 11-20 H (0-2) /HPF Urine WBC >50 H (0-5) /HPF Ur Squamous Epith Cells 0-2 (0-2) /HPF Urine Bacteria 4+ (None Seen) Hyaline Casts 0-2 (0-2) /LPF Influenza Type A (PCR) NEGATIVE (Negative) Influenza Type B (PCR) NEGATIVE (Negative) RSV RNA Qual (PCR) NEGATIVE (Negative) SARS-CoV-2 RNA (RT-PCR) NEGATIVE (Negative) 04/02/25 Range/Units 17:10 WBC (4.8-10.8) X10*3/uL RBC (4.20-5.50) X10*6/uL Hgb (12.0-16.0) g/dl Hct (37.0-47.0) % MCV (80.0-98.0) fL MCH (27.0-33.0) pg MCHC (31.0-35.0) g/dl RDW (11.0-16.0) % Plt Count (160-400) X10*3/uL MPV (9.4-12.3) fL Immature Gran % (Auto) (0.0-0.4) % Neut % (Auto) (45-73) % Lymph % (Auto) (20-40) % [place] % (Auto) (2-11) % Eos % (Auto) (0-4) % Baso % (Auto) (0-2) % Lymph # (Auto) (1.2-4.9) X10*3/uL [place] # (Auto) (0.1-1.2) X10*3/uL Eos # (Auto) (0.0-0.4) X10*3/uL Baso # (Auto) (0.0-0.2) X10*3/uL Abs Immat Gran (auto) (0.00-0.03) X10*3/uL Absolute Neuts (auto) (2.0-8.3) x10*3/uL Absolute Nucleated RBC (0.0-0.012) X10*3/uL Nucleated RBC % (auto) (0.0-0.2) /100WBC Sodium (135-145) mmol/L Potassium (3.3-5.1) mmol/L Chloride (96-108) mmol/L Carbon Dioxide (22-29) mmol/L Anion Gap (12-20) BUN (9-16) mg/dL Creatinine (0.5-1.4) mg/dL Estim Creat Clear Calc Estimated GFR Random Glucose (60-115) mg/dL Lactic Acid (0.5-2.0) mmol/L Calcium (8.4-10.2) mg/dL Magnesium (1.6-2.6) mg/dL Total Bilirubin (0.0-1.0) mg/dL AST (5-31) U/L ALT (0-31) U/L Alkaline Phosphatase (39-117) U/L Troponin I High Sens 22.3 H (<3.5-17.0) ng/L Total Protein (6.5-8.0) g/dL Albumin (3.5-5.0) g/dL Urine Color Urine Appearance Urine pH (5.0-9.0) Ur Specific [place] (1.005-1.025) Urine Protein (Neg-Trace) mg/dL Urine Glucose (UA) (Negative) mg/dL Urine Ketones (Negative) mg/dL Urine Blood (Negative) Urine Nitrite (Negative) Ur Leukocyte Esterase (Negative) Urine RBC (0-2) /HPF Urine WBC (0-5) /HPF Ur Squamous Epith Cells (0-2) /HPF Urine Bacteria (None Seen) Hyaline Casts (0-2) /LPF Influenza Type A (PCR) (Negative) Influenza Type B (PCR) (Negative) RSV RNA Qual (PCR) (Negative) SARS-CoV-2 RNA (RT-PCR) (Negative) Independent Interpretation I performed an independent interpretation of an: EKG (Sinus tachycardia with PACs, rate 1 1 1 beats per minute, normal [place] interval, slightly prolonged QTC) and Plain X-Ray Interpretation: No evidence of pneumonia on chest x-ray. Radiology Impression Discussion of test interpretation with radiology: I have reviewed the radiologist's reading. Radiologist Impression: Chest Radiographs, 2 views Comparison: CR/SR - XR CHEST 1V - 12/08/24 11:51 EST CR/SR - XR CHEST 1V - 11/23/24 12:07 EST CR - XR CHEST 1V - 11/19/24 00:41 EST CR/SR - XR CHEST 2V - 08/14/24 12:05 EDT Findings: Prominent sized heart. Normal mediastinal contours. No pneumothorax. No opacity. No pleural effusion. Normal upper abdomen. No acute fracture. Impression: No acute findings. External Record Review External record reviewed: Inpatient record, Office record and Outpatient record Prescription Management I considered prescription management with: Antibiotic and Other Critical Care Time Critical Care Time Critical Care Time: Yes Total Critical Care Time: 44 Attestation: I have personally provided critical care time exclusive of time spent on separately billable procedures. Time includes review of lab data, radiology results, discussion with consultants, and monitoring for potential decompensation. Intervention performed as documented. Discharge Plan Discharge Clinical Impression: Catheter-associated urinary tract infection Patient Disposition: Home, Self-Care Instructions: Catheter-associated Urinary Tract Infection (ED) Additional Instructions: You have been evaluated in the emergency department today for your urinary and GI symptoms. Your evaluation, including urinalysis, suggests that your symptoms are due to urinary tract infection. You are being treated with an antibiotic which will cover the specific bacteria causing your urine infection. Please take your prescribed antibiotics for the full course of medication as directed. Please follow-up with your primary care provider and urologist within 2 days. You are being prescribed ondansetron for nausea. You are being prescribed Immodium for diarrhea. Return to the emergency department if you experience fevers 100.4? F or greater, worsening or uncontrolled pain, vomiting, flank pain, or for any other concerning symptoms. Prescriptions: New sulfamethoxazole-trimethoprim 800-160 mg tablet 1 tab PO BID Qty: 20 0RF ondansetron 4 mg tablet,disintegrating 4 mg PO Q8H PRN (Reason: nausea and vomiting) Qty: 10 0RF loperamide 2 mg capsule 2 mg PO Q6H PRN (Reason: loose stool) Qty: 10 0RF No Action ascorbic acid (vitamin C) 1,000 mg tablet 1,000 mg PO DAILY 90 Days Qty: 90 1RF nystatin 100,000 unit/gram cream 1 appl topical DAILY Qty: 15 0RF venlafaxine 75 mg capsule,extended release 24hr 75 mg PO DAILY hydroxyzine HCl 50 mg tablet 50 mg PO Q6H PRN (Reason: anxiety) acetaminophen 650 mg tablet extended release 650 mg PO Q12H PRN (Reason: pain) buspirone 10 mg tablet 10 mg BID cholecalciferol (vitamin D3) 50 mcg (2,000 unit) capsule 50 mcg DAILY baclofen 10 mg tablet 10 mg PO TID PRN (Reason: muscle spasm) albuterol sulfate 90 mcg/actuation Hfa Aerosol Inhaler 2 puff INHALATION Q4-6H PRN (Reason: Shortness Of Breath Or Wheezing) propranolol 10 mg Tablet 10 mg PO TID Qty: 270 0RF Protocol: Hold for SBP/HR < HOLD for SBP < : 90 HOLD for HR < : 60 methimazole 10 mg Tablet 10 mg PO DAILY Qty: 30 0RF lisinopril 10 mg tablet 10 mg PO DAILY aripiprazole 2 mg tablet 2 mg PO DAILY dextromethorphan-guaifenesin 10-100 mg/5 mL Syrup 10 ml PO Q6H PRN (Reason: Cough) Qty: 237 0RF ipratropium-albuterol 0.5 mg-3 mg(2.5 mg base)/3 mL Solution For Nebulization 3 ml inhalation RQ4H WHILE AWAKE PRN (Reason: Shortness Of Breath/Wheezing) Qty: 90 0RF levofloxacin 500 mg tablet 500 mg PO DAILY Qty: 5 0RF gabapentin 300 mg capsule 900 mg PO TID oxycodone 5 mg tablet 5 mg PO Q6H PRN (Reason: pain) Qty: 10 0RF Rx Instructions: Patient may request partial refill; Partial Fill upon patient request. levofloxacin 250 mg tablet 250 mg PO Q24H 7 Days Qty: 7 0RF fluticasone propionate 50 mcg/actuation spray,suspension 2 spray intranasal DAILY PRN (Reason: Allergy Symptoms) aspirin [Adult Aspirin Regimen] 81 mg tablet,delayed release (DR/EC) 81 mg PO DAILY methenamine hippurate 1 gram tablet 1 g PO DAILY 90 Days Qty: 90 1RF Print Language: Sinhala
--- NOTE | 2025-04-02 13:30 | ECG_ITS ---
Test Reason : ABD PAIN Blood Pressure : */* mmHG Vent. Rate : 111 BPM Atrial Rate : 111 BPM P-R Int : 134 ms QRS Dur : 70 ms QT Int : 336 ms P-R-T Axes : -4 -33 28 degrees QTcB Int : 456 ms Sinus tachycardia with Premature atrial complexes Left axis deviation Minimal voltage criteria for LVH, may be normal variant ( R in aVL ) Septal infarct , age undetermined Abnormal ECG When compared with ECG of 08-Dec-2024 11:31, Premature ventricular complexes are no longer Present Premature atrial complexes are now Present Referred By: Laura Carr Electronically Signed By: Prasanna Schmidt
--- OUTSIDE RECORDS SUMMARY | 2025-04-02 13:43 | XMS_ITS | Encounter Summary ---
Author Organization [facility] Address [address] [place] [address] Care Team Providers Care Elephant Keeper Name Role Phone Aliza Paul DO Primary Care Provider Lesley Ingram Unavailable Rosi Castro RN Unavailable [phone] Reason for Visit * Reason Comments Med Refill Encounter Details Date Type Department Care Team ([facility] st Contact Info) Description 06/06/2024 Refill [facility] [address] [place], [place] [id number] Aliza Paul DO [address] [place], [place] [phone] Chronic nonintractable headache, unspecified headache type Social [...] on file documented as of this encounter Visit Diagnoses Diagnosis Chronic nonintractable headache, unspecified headache type documented in this encounter Additional Health Concerns Assessment Noted Time PHQ-9 Depression Total Score: 4 03/09/20 24 9:14 AM EDT documented as of this encounter Care Teams Elephant Keeper Relationship Specialty Start Date End Date Aliza Paul DO [address] [place] [address] PCP - General Family Medicine 02/23/12 Lesley Ingram Community Health Worker 05/17/24 Rosi Castro RN [address] [place] [address] Welfare Director 05/17/24 03/05/25 [facility] 07/27/24 documented as of this encounter
[2025-04-02 13:54] LABS: MANUAL DIFF FLAG NO
[2025-04-02 13:56] LABS: Basophils Percent Auto 0.3 % (0-2); Eosinophils Absolute Auto 0.2 X10*3/uL (0.0-0.4); Eosinophils Percent Auto 1.8 % (0-4); Hematocrit 47.7 % (37.0-47.0); Hemoglobin 16.7 g/dl (12.0-16.0); Imm Gran Abs Auto 0.06 X10*3/uL (0.00-0.03); Imm Gran Pct Auto 0.5 % (0.0-0.4); Lymphocytes Absolute Auto 0.4 X10*3/uL (1.2-4.9); Lymphocytes Percent Auto 3.7 % (20-40); Mean Corpuscular Hemoglobin 27.6 pg (27.0-33.0); Mean Corpuscular Volume 78.8 fL (80.0-98.0); Mean Platelet Volume 9.3 fL (9.4-12.3); Monocytes Absolute Auto 0.5 X10*3/uL (0.1-1.2); Neutrophils Absolute Auto 10.1 x10*3/uL (2.0-8.3); Neutrophils Percent Auto 89.7 % (45-73); Platelet Count 297 X10*3/uL (160-400); Red Blood Count 6.05 X10*6/uL (4.20-5.50); Red Cell Distribution Width 12.4 % (11.0-16.0); White Blood Count 11.3 X10*3/uL (4.8-10.8)
[2025-04-02] MEDS: 0.9 % Sodium Chloride 1,000 ML 999 ML IV (14:01)
[2025-04-02] MEDS: ondansetron HCL 4 MG/2 ML VIAL IVPUSH (14:01)
[2025-04-02 14:08] LABS: Lactic Acid 1.7 mmol/L (0.5-2.0)
[2025-04-02 14:10] LABS: Alanine Aminotransferase 11 U/L (0-31); Albumin Level 4.2 g/dL (3.5-5.0); Alkaline Phosphatase 69 U/L (39-117); Anion Gap 15 (12-20); Aspartate Amino Transferase 24 U/L (5-31); Bilirubin Total 0.6 mg/dL (0.0-1.0); Blood Urea Nitrogen 25 mg/dL (9-16); Calcium 9.7 mg/dL (8.4-10.2); Carbon Dioxide 20 mmol/L (22-29); Chloride 109 mmol/L (96-108); Creatinine Clr Calc Pharmacy 84.5; Estimated Glomerular Filt Rate > 60; Glucose Random 147 mg/dL (60-115); Magnesium 1.5 mg/dL (1.6-2.6); Potassium 4.2 mmol/L (3.3-5.1); Sodium 140 mmol/L (135-145); Total Protein 7.4 g/dL (6.5-8.0)
--- NOTE | 2025-04-02 14:17 | PC.NURSE ---
pt comes to ED form home with reports of urinary pain, hematuria and N/V/D. She reports that she has been taking ABX for a UTI for two weeks. She has a chronic covarrubias and it was changed 3 weeks ago. last night, she began to have N/V/D. vomited 500cc clear liquid. zofran given and fluids started. Pt tachyupon arrivial with rate about 107, now 92. Tachypneic 24-28. afebrile.
[2025-04-02 14:18] LABS: Appearance Urine Cloudy; Color Urine Yellow; Glucose Urine UA Negative (Negative); Leukocyte Esterase Urine Moderate (2+) (Negative); Nitrite Urine Negative (Negative); PH 5.5 (5.0-9.0); Specific Gravity - Urine >= 1.030 (1.005-1.025); UMIC TRIGGER UACC YES; Urine Blood Large (3+) (Negative); Urine Ketones Trace mg/dL (Negative); Urine Protein 100 (2+) mg/dL (Neg-Trace)
[2025-04-02 14:26] LABS: Bacteria Urine 4+ (None Seen); Hyaline Casts Urine 0-2 /LPF (0-2); Squamous Epithelial Cell Urine 0-2 /HPF (0-2); UACC Culture Trigger YES; WBC Urine >50 /HPF (0-5)
[2025-04-02 14:30] VITALS: BP 162/141; PULSE 94; RESP 22; O2SAT 95
[2025-04-02 15:00] LABS: Influenza A PCR NEGATIVE (Negative); Influenza B PCR NEGATIVE (Negative); Resp Syncy Virus RNA Qual PCR NEGATIVE (Negative); SARS COV2 PCR INHOUSE NEGATIVE (Negative)
[2025-04-02 16:09] VITALS: BP 155/98; PULSE 90; RESP 14; TEMP 36.4; O2SAT 95
[2025-04-02 17:37] LABS: Troponin-I High Sensitivity 22.3 ng/L (<3.5-17.0)
--- NOTE | 2025-04-02 18:15 | PC.NURSE ---
per SADDLE MAKER Laura, verbal order for viscous lidocaine to be used topically on urethra for burning urethral pain. Lidocaine jelly that was originally ordered not available.
[2025-04-02] MEDS: Magnesium Sulfate/H2O 2 GM/50 ML PIGGYBACK IV (18:26)
[2025-04-02] MEDS: Lidocaine HCl Viscous 2 % 15 ML SOLUTION MUCOUS MEM (18:29)
--- NOTE | 2025-04-02 18:35 | PC.NURSE ---
pt has not had a bowel movement for stool/GI/c.diff lab collection
[2025-04-02 18:58] VITALS: BP 186/119; PULSE 101; RESP 23; TEMP 37.1; O2SAT 94
--- NOTE | 2025-04-02 20:57 | PC.NURSE ---
Pt refused d/c vitals from this RN and from Tech
[2025-04-02 21:00] VITALS: BP 00/00; PULSE 102; RESP 20; TEMP -17.7; TEMP 0
[2025-04-02 21:05] VITALS: PULSE 102; RESP 20
== END 2025-04-02 21:00 | disposition home or self-care (01) ==
PROVIDERS: Registered Nurse Emergency; Emergency Provider Emergency Medicine
DX: T83.511A Infection and inflammatory reaction due to indwelling urethral catheter, initial encounter (principal); N39.0 Urinary tract infection, site not specified; Y82.8 Other medical devices associated with adverse incidents; R11.2 Nausea with vomiting, unspecified; R00.0 Tachycardia, unspecified; I10 Essential (primary) hypertension; E78.5 Hyperlipidemia, unspecified; Z03.818 Encounter for observation for suspected exposure to other biological agents ruled out; Z79.899 Other long term (current) drug therapy
CPT/HCPCS: 0241U; 71046; 80053; 81001; 83605; 83735; 84484; 85025; 87040; 87086; 93005; 96361; 96365; 96366; 96375; 99284; 99285; J2405; J3475

== ENCOUNTER → 2025-04-02 13:30 | Outpatient (BNV) | payer MEDICAID, SELFPAY | PROVIDERS: Emergency Provider Emergency Medicine; Visit Provider Radiology Diagnostic Radiology | DX: R06.82 Tachypnea, not elsewhere classified (principal) | CPT/HCPCS: 71046 ==

== ENCOUNTER → 2025-04-02 13:30 | Outpatient (BNV) | payer MEDICAID, SELFPAY | PROVIDERS: Emergency Provider Emergency Medicine; Visit Provider Internal Medicine Cardiovascular Disease | DX: I49.1 Atrial premature depolarization (principal); R00.0 Tachycardia, unspecified | CPT/HCPCS: 93010 ==

== ENCOUNTER 2025-04-06 04:31 | Emergency (ER) | payer MEDICAID, SELFPAY ==
[2025-04-06 04:35] VITALS: BP 140/84; BP 206/145; PULSE 136; PULSE 53; RESP 20; TEMP 36.6; O2SAT 95; O2SAT 97; BMI 35.4
--- NOTE | 2025-04-06 04:38 | ED_ITS ---
HPI - General Adult General Chief complaint: Urogenital-Female Stated complaint: covarrubias problem Time Seen by Provider: 04/06/25 04:32 Source: patient Mode of arrival: ambulatory Limitations: no limitations History of Present Illness ED Provider: Dr. Sharmin Back HPI narrative: Patient comes to the emergency room complaining of a clogged urinary catheter. Patient states that she has significant suprapubic pressure. Patient has a Covarrubias catheter inserted with has not drained much your in over the last 24 hours. Patient believe that it is clogged. Patient was seen here 4 days ago, diagnosed with a UTI, MRSA, being treated with Bactrim. Patient states that she does not believe that the urine is contaminated, believes the antibiotic is working. However, now the problem is they actual Covarrubias catheter. Denies fever chills, denies flank pain Related Data Home Medications ?Medication ?Instructions ?Recorded ?Confirmed fluticasone propionate 50 2 spray intranasal DAILY PRN 11/18/21 11/23/24 mcg/actuation nasal Allergy Symptoms spray,suspension aspirin 81 mg tablet,delayed 81 mg PO DAILY 12/07/23 11/23/24 release (Adult Aspirin Regimen) gabapentin 300 mg capsule 900 mg PO TID 06/11/24 11/23/24 acetaminophen 650 mg 650 mg PO Q12H PRN pain 07/20/24 11/23/24 tablet,extended release albuterol sulfate 90 mcg/actuation 2 puff inhalation Q4-6H PRN 07/20/24 11/23/24 aerosol inhaler Shortness Of Breath Or Wheezing baclofen 10 mg tablet 10 mg PO TID PRN muscle spasm 07/20/24 11/23/24 buspirone 10 mg tablet 10 mg BID 07/20/24 11/23/24 cholecalciferol (vitamin D3) 50 50 mcg DAILY 07/20/24 11/23/24 mcg (2,000 unit) capsule hydroxyzine HCl 50 mg tablet 50 mg PO Q6H PRN anxiety 07/20/24 11/23/24 venlafaxine 75 mg capsule,extended 75 mg PO DAILY 07/20/24 11/23/24 release 24 hr aripiprazole 2 mg tablet 2 mg PO DAILY 11/23/24 11/23/24 lisinopril 10 mg tablet 10 mg PO DAILY 11/23/24 11/23/24 Previous Rx's ?Medication ?Instructions ?Recorded nystatin 100,000 unit/gram topical 1 appl topical DAILY #15 grams 06/30/24 cream methimazole 10 mg tablet 10 mg PO DAILY #30 tabs 07/23/24 propranolol 10 mg tablet 10 mg PO TID #270 tabs 07/23/24 ascorbic acid (vitamin C) 1,000 mg 1,000 mg PO DAILY 90 days #90 tabs 11/16/24 tablet dextromethorphan-guaifenesin 10 10 ml PO Q6H PRN Cough #237 mL 11/25/24 mg-100 mg/5 mL oral syrup ipratropium 0.5 mg-albuterol 3 mg 3 ml inhalation RQ4H WHILE AWAKE 11/25/24 (2.5 mg base)/3 mL nebulization PRN Shortness Of Breath/Wheezing soln #90 mL methenamine hippurate 1 gram tablet 1 g PO DAILY 90 days #90 tabs 12/14/24 levofloxacin 250 mg tablet 250 mg PO Q24H 7 days #7 tabs 03/22/25 oxycodone 5 mg tablet 5 mg PO Q6H PRN pain #10 tabs 03/22/25 levofloxacin 500 mg tablet 500 mg PO DAILY #5 tabs 03/26/25 loperamide 2 mg capsule 2 mg PO Q6H PRN loose stool #10 04/02/25 caps ondansetron 4 mg disintegrating 4 mg PO Q8H PRN nausea and 04/02/25 tablet vomiting #10 tabs sulfamethoxazole 800 1 tab PO BID #20 tabs 04/02/25 mg-trimethoprim 160 mg tablet Allergies Allergy/AdvReac Type Severity Reaction Status Date / Time No Known Allergies Allergy Verified 04/06/25 04:37 Review of Systems Review of Systems: Constitutional : No Weight loss, No Fever, No Chills, No Night Sweats, No Fatigue, No Malaise ENT/Mouth : No Hearing loss, No Ear Pain, No Nasal Congestion, No Sinus Pain, No Hoarseness, No sore throat, No Rhinorrhea, No Swallowing Difficulty Eyes: No Eye Pain, No Swelling, No Redness, No Foreign Body, No Discharge, No Vision Changes Cardiovascular : No Chest Pain, No SOB, No Dyspnea on Exertion, No Orthopnea, No Edema, No Palpitations Respiratory : No Cough, No Sputum, No Wheezing, No Smoke Exposure, No Dyspnea Gastrointestinal : No Nausea, No Vomiting, No Diarrhea, No Constipation, No abdominal Pain, No Hematochezia, No Melena Genitourinary : Complaining of a clogged Covarrubias catheter, No Dysuria, No Urinary Frequency, No Hematuria, No Urinary Incontinence, No Urgency, No Flank Pain, No Urinary Flow Changes, No Hesitancy Musculoskeletal : No joint pain, No Myalgias, No Joint Swelling Skin : No Skin Lesions, No rash Neuro : No Weakness, No Numbness, No Paresthesias, No Loss of Consciousness, No Dizziness, No Headache Psych : No Anxiety/Panic, No Depression, No SI/HI/AH/VH, No Social Issues, Heme/Lymph: No Bruising, No Bleeding,No Lymphadenopathy Endocrine : No Polyuria, No Polydipsia, No Temperature Intolerance [facility] Past Medical History Medical History Hyperthyroidism Hemiparesis affecting left side as late effect of stroke Hypotonic bladder H/O urinary retention GERD (gastroesophageal reflux disease) Hyperlipidemia HTN (hypertension) PFO (patent foramen ovale) Patellofemoral arthrosis Knee derangement Surgical History History of surgery Social History Social History Household Members: Other Household Members Other:: [facility]-IN [facility] Housing: Apartment Do you presently have visiting nurse or other home services: Yes (31/05 [employer] THAT LIVES WITH PT) Alcohol intake: current Alcohol intake frequency: does not drink Alcohol type: beer Patient Tobacco Use Status: Never used Tobacco Smoked in Last 30 Days: No Substance Use Type: Marijuana Advance Directives: Yes Advance Directives on File: Yes Advance Directives Date on File: 11/27/24 Patient : No service: No Current occupational status: retired and disabled 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 Oriented X3. Patient looks very uncomfortable. Eyes: Pupils equal, round and reactive to light. ENT: Pharynx normal. Neck: Normal inspection. Neck supple. No lymph nodes noted. No crepitus CVS: Normal heart rate and rhythm. Pulses normal. Normal S1 and S2 Respiratory: No respiratory distress. Breath sounds normal. No Wheezing. No rales Abdomen: Soft , suprapubic tenderness and fullness to palpation. Bladder scan shows greater than 600 mL of fluid in the bladder, Covarrubias catheter in place. Minimal drainage in Covarrubias catheter bag. No CVA tenderness Skin: Skin warm and dry. Normal skin color. Normal skin turgor. Extremities: No lower extremity edema. No Lacerations. No Rash Neuro: Oriented X 3. No motor deficit. No sensory deficit. Moving all extremities. No slurred speech. CN 2 through 12 grossly intact Psych: calm, cooperative, normal affect Course Course Course Narrative: Patient is currently taking antibiotics. Patient states that she has no complaints about her Covarrubias catheter. States that the urine has been looking clean. However, believes that the Covarrubias catheter is clogged which is the case, patient is retaining urine with a Covarrubias catheter in place. We will replace the Covarrubias Medications Administered Discontinued Medications Generic Name Dose Route Start Last Admin Trade Name Freq PRN Reason Stop Dose Admin Tramadol HCl 50 mg 04/06/25 04:38 04/06/25 04:56 Tramadol Hcl 50 Mg Tablet PO 04/06/25 04:39 50 mg ONCE ONE Administration Medical Decision Making Medical Decision Making [facility] Narrative: Covarrubias catheter was replaced, over 1000 mL were drained Patient is stable taking antibiotics for a previous UTI. Interestingly, the time the he got diagnosed with a UTI, MRSA, there was no bacterial growth reported in the microbiology report. Discharge Plan Discharge Clinical Impression: Obstructed Covarrubias catheter Patient Disposition: Home, Self-Care Instructions: Covarrubias Catheter Placement and Care (ED), How to Change a Catheter Drainage Bag (DC) Additional Instructions: Please follow-up with your primary care physician tomorrow. If you have any worsening or new symptoms, please return to the emergency room or call 911 Prescriptions: No Action ascorbic acid (vitamin C) 1,000 mg tablet 1,000 mg PO DAILY 90 Days Qty: 90 1RF nystatin 100,000 unit/gram cream 1 appl topical DAILY Qty: 15 0RF venlafaxine 75 mg capsule,extended release 24hr 75 mg PO DAILY hydroxyzine HCl 50 mg tablet 50 mg PO Q6H PRN (Reason: anxiety) acetaminophen 650 mg tablet extended release 650 mg PO Q12H PRN (Reason: pain) buspirone 10 mg tablet 10 mg BID cholecalciferol (vitamin D3) 50 mcg (2,000 unit) capsule 50 mcg DAILY baclofen 10 mg tablet 10 mg PO TID PRN (Reason: muscle spasm) albuterol sulfate 90 mcg/actuation Hfa Aerosol Inhaler 2 puff INHALATION Q4-6H PRN (Reason: Shortness Of Breath Or Wheezing) propranolol 10 mg Tablet 10 mg PO TID Qty: 270 0RF Protocol: Hold for SBP/HR < HOLD for SBP < : 90 HOLD for HR < : 60 methimazole 10 mg Tablet 10 mg PO DAILY Qty: 30 0RF lisinopril 10 mg tablet 10 mg PO DAILY aripiprazole 2 mg tablet 2 mg PO DAILY dextromethorphan-guaifenesin 10-100 mg/5 mL Syrup 10 ml PO Q6H PRN (Reason: Cough) Qty: 237 0RF ipratropium-albuterol 0.5 mg-3 mg(2.5 mg base)/3 mL Solution For Nebulization 3 ml inhalation RQ4H WHILE AWAKE PRN (Reason: Shortness Of Breath/Wheezing) Qty: 90 0RF levofloxacin 500 mg tablet 500 mg PO DAILY Qty: 5 0RF gabapentin 300 mg capsule 900 mg PO TID oxycodone 5 mg tablet 5 mg PO Q6H PRN (Reason: pain) Qty: 10 0RF Rx Instructions: Patient may request partial refill; Partial Fill upon patient request. levofloxacin 250 mg tablet 250 mg PO Q24H 7 Days Qty: 7 0RF sulfamethoxazole-trimethoprim 800-160 mg tablet 1 tab PO BID Qty: 20 0RF ondansetron 4 mg tablet,disintegrating 4 mg PO Q8H PRN (Reason: nausea and vomiting) Qty: 10 0RF loperamide 2 mg capsule 2 mg PO Q6H PRN (Reason: loose stool) Qty: 10 0RF fluticasone propionate 50 mcg/actuation spray,suspension 2 spray intranasal DAILY PRN (Reason: Allergy Symptoms) aspirin [Adult Aspirin Regimen] 81 mg tablet,delayed release (DR/EC) 81 mg PO DAILY methenamine hippurate 1 gram tablet 1 g PO DAILY 90 Days Qty: 90 1RF Print Language: Tajik
[2025-04-06] MEDS: traMADoL HCL 50 MG TABLET PO (04:56)
--- NOTE | 2025-04-06 05:06 | PC.NURSE ---
59 yo F presents to ED r/t covarrubias catheter issue, patient has a chronic covarrubias IP that has not been draining since yesterday, c/o +AP, A&O, uses a walker at baseline, removed current catheter and replaced with new one with +effect, output of 1000mLs, also medicated for pain as ordered, patient reports significant improvement, resting comfortably on stretcher, dispo pending
[2025-04-06 05:13] VITALS: BP 122/93; PULSE 117; RESP 18; TEMP 36.4; O2SAT 95
[2025-04-06 06:53] VITALS: BP 113/81; PULSE 89; RESP 14; TEMP 36.5; O2SAT 95
[2025-04-06 06:55] VITALS: BP 113/81; PULSE 89; RESP 14; TEMP 36.5; O2SAT 95
== END 2025-04-06 07:47 | disposition home or self-care (01) ==
PROVIDERS: Emergency Provider Emergency Medicine; PCP Family Medicine
DX: T83.091A Other mechanical complication of indwelling urethral catheter, initial encounter (principal); Y84.6 Urinary catheterization as the cause of abnormal reaction of the patient, or of later complication, without mention of misadventure at the time of the procedure; Y92.9 Unspecified place or not applicable; Z43.6 Encounter for attention to other artificial openings of urinary tract; Z79.899 Other long term (current) drug therapy; I10 Essential (primary) hypertension; E78.5 Hyperlipidemia, unspecified; K21.9 Gastro-esophageal reflux disease without esophagitis
CPT/HCPCS: 51702; 99283; 99284

== ENCOUNTER 2025-04-20 12:45 | Outpatient (REF) | payer MEDICAID, SELFPAY ==
--- OUTSIDE RECORDS SUMMARY | 2025-04-20 13:11 | XMS_ITS | Encounter Summary ---
Author Organization [employer] Address [address] [place] [address] Care Team Providers Care Ragman Name Role Phone Aliza Paul DO Primary Care Provider Lesley Ingram Unavailable Rocio Ingram RN Unavailable [phone] Kathrine Blank Unavailable Encounter Details Date Type Department Care Team (Late st Contact Info) Description 04/19/2025 Patient Outreach [facility] [address] [place], [place] [phone] Aliza Paul DO [address] [place] [address] Social History Tobacco Use Types Packs/Day Years [...] documented as of this encounter Care Teams Ragman Relationship Specialty Start Date End Date Aliza Paul DO [address] [place] [address] PCP - General Family Medicine 02/23/12 Lesley Ingram Community Health Worker 05/17/24 Rocio Ingram RN [address] [place] [id number] Registered Nurse Family Medicine 04/19/25 Kathrine Blank 04/19/25 [facility] 07/27/24 documented as of this encounter
[2025-04-20 16:19] LABS: Hematocrit 39.9 % (37.0-47.0); Hemoglobin 12.9 g/dl (12.0-16.0); Mean Corpuscular HGB Conc 32.3 g/dl (31.0-35.0); Mean Corpuscular Hemoglobin 26.8 pg (27.0-33.0); Mean Corpuscular Volume 82.8 fL (80.0-98.0); Mean Platelet Volume 10.1 fL (9.4-12.3); Platelet Count 350 X10*3/uL (160-400); Red Blood Count 4.82 X10*6/uL (4.20-5.50); Red Cell Distribution Width 13.1 % (11.0-16.0); White Blood Count 10.5 X10*3/uL (4.8-10.8)
[2025-04-20 16:24] LABS: Estimated Average Glucose 114 mg/dL; Hemoglobin A1C 126.0768 umol/L; Hemoglobin A1c % 5.6 % (<6.0)
[2025-04-20 16:36] LABS: Alanine Aminotransferase 12 U/L (0-31); Albumin Level 4.1 g/dL (3.5-5.0); Alkaline Phosphatase 53 U/L (39-117); Anion Gap 12 (12-20); Aspartate Amino Transferase 20 U/L (5-31); Bilirubin Direct < 0.2 mg/dL (0.0-0.5); Bilirubin Total 0.2 mg/dL (0.0-1.0); Blood Urea Nitrogen 31 mg/dL (9-16); Calcium 9.7 mg/dL (8.4-10.2); Carbon Dioxide 23 mmol/L (22-29); Chloride 111 mmol/L (96-108); Cholesterol 164 mg/dL (<200); Estimated Glomerular Filt Rate 59; Glucose Random 118 mg/dL (60-115); HDL Cholesterol 45 mg/dL (>40); LDL Cholesterol Calculated 105 mg/dL (<100); Potassium 4.1 mmol/L (3.3-5.1); Sodium 142 mmol/L (135-145); Total Protein 6.6 g/dL (6.5-8.0); Triglycerides 72 mg/dL (<150)
[2025-04-20 17:01] LABS: Free T4 (Free Thyroxine) 1.34 ng/dL (0.71-1.85); Thyroid Stimulating Hormone < 0.01 uIU/mL (0.32-4.0); Vitamin D 25-OH Total 43.9 ng/mL (>30)
== END 2025-04-20 12:46 | disposition home or self-care (01) ==
LOC: HO.HHCL 12:45
PROVIDERS: Visit Provider Family Medicine
DX: I10 Essential (primary) hypertension (principal); E05.90 Thyrotoxicosis, unspecified without thyrotoxic crisis or storm
CPT/HCPCS: 36415; 80048; 80061; 80076; 82306; 83036; 84439; 84443; 85027

== ENCOUNTER 2025-04-27 14:34 | Emergency (ER) | payer MEDICAID, SELFPAY ==
[2025-04-27] VITALS (7 sets, daily range): BP systolic 175–226; BP diastolic 87–140; PULSE 62–94; RESP 14–22; TEMP 36.6–37.2; O2SAT 95–98; BMI 35.4
--- OUTSIDE RECORDS SUMMARY | 2025-04-27 14:59 | XMS_ITS | Encounter Summary ---
Author Organization [employer] Address [address] [place] [address] Care Team Providers Care Recreation Program Coordinator Name Role Phone Aliza Paul DO Primary Care Provider [phone] Lesley Ingram Unavailable Rosi Castro RN Unavailable [phone] Rosi Castro RN Unavailable [phone] Lesley Ingram Unavailable Rocio Ingram RN Unavailable [phone] Kathrine Blank Unavailable Reason for Visit * Reason Comments Med Refill Encounter Details Date Type Department Care Team (Late st Contact Info) Description 06/06/2024 Refill [facility] [address] [place], [place] [phone] Aliza Paul DO [address] [place], [place] [phone] Chronic nonintractable headache, unspecified headache type Social [...] documented as of this encounter Care Teams Recreation Program Coordinator Relationship Specialty Start Date End Date Aliaz Paul DO [address] [place] [id number] PCP - General Family Medicine 02/23/12 Lesley Ingram Community Health Worker 05/17/24 Rosi Castro RN [address] [place] [address] [employer] Unit Operator 05/17/24 03/05/25 Rosi Castro RN [address] [place] [address] Registered Nurse Family Medicine 04/06/25 04/10/25 Lesley Ingram 04/06/25 04/10/25 Rocio Ingram RN [address] [place] [id number] Registered Nurse Family Medicine 04/19/25 Kathrine Blank 04/19/25 [facility] 07/27/24 documented as of this encounter
[2025-04-27 15:47] LABS: Basophils Absolute Auto 0.1 X10*3/uL (0.0-0.2); Basophils Percent Auto 0.5 % (0-2); Eosinophils Absolute Auto 0.4 X10*3/uL (0.0-0.4); Eosinophils Percent Auto 2.9 % (0-4); Hematocrit 36.7 % (37.0-47.0); Hemoglobin 12.4 g/dl (12.0-16.0); Imm Gran Abs Auto 0.05 X10*3/uL (0.00-0.03); Imm Gran Pct Auto 0.4 % (0.0-0.4); Lymphocytes Absolute Auto 5.2 X10*3/uL (1.2-4.9); Lymphocytes Percent Auto 39.1 % (20-40); MANUAL DIFF FLAG SCAN; Mean Corpuscular HGB Conc 33.8 g/dl (31.0-35.0); Mean Corpuscular Hemoglobin 27.4 pg (27.0-33.0); Mean Platelet Volume 9.2 fL (9.4-12.3); Monocytes Absolute Auto 0.9 X10*3/uL (0.1-1.2); Monocytes Percent Auto 6.8 % (2-11); Neutrophils Absolute Auto 6.7 x10*3/uL (2.0-8.3); Neutrophils Percent Auto 50.3 % (45-73); Platelet Count 297 X10*3/uL (160-400); Red Blood Count 4.53 X10*6/uL (4.20-5.50); Red Cell Distribution Width 13.8 % (11.0-16.0); SCAN SMEAR FLAG 1; White Blood Count 13.3 X10*3/uL (4.8-10.8)
--- NOTE | 2025-04-27 15:47 | ED.GENADULT ---
HPI - General Adult General Chief complaint: General Medical Stated complaint: Catheter not draining BP 220/140 Time Seen by Provider: 04/27/25 15:30 Source: patient, EMS, RN notes reviewed and old records reviewed Mode of arrival: EMS Limitations: no limitations History of Present Illness ED Provider: Vidhya Garzon PA-C HPI narrative: 59 yo female with history of hypotonic bladder with chronic Covarrubias catheter with recurrent UTIs, CVA w/ left sided deficits, Abraham's palsy, hyperthyroidism, PAD, HTN who presents to the ER from home for evaluation of her Covarrubias catheter not draining. She states the catheter stopped working last night. It has had dark and sediment filled urine. She reports bladder pain and pressure since this morning that is severe. She reports this is a recurrent issue and recently had her catheter exchanged 1 week ago. She was last on Bactrim at the end of March for a MRSA UTI. Per EMS patient was found to be hypertensive with blood pressure 220/140. She states her blood pressure is always high and she took her lisinopril this morning. She states she has a headache but denies any chest pain, vision changes. No nausea, vomiting, diarrhea. She reports worsening bladder pressure and discomfort. No fever or chills. MD complaint: Clogged Covarrubias catheter Onset (ago): day(s) (1) Location: abdomen Severity: moderate Quality: stabbing and aching Pain Consistency: constant Relieving factors: none Exacerbating factors: none Treatments prior to arrival: none Related Data Home Medications ?Medication ?Instructions ?Recorded ?Confirmed fluticasone propionate 50 2 spray intranasal DAILY PRN 11/18/21 11/23/24 mcg/actuation nasal Allergy Symptoms spray,suspension aspirin 81 mg tablet,delayed 81 mg PO DAILY 12/07/23 11/23/24 release (Adult Aspirin Regimen) gabapentin 300 mg capsule 900 mg PO TID 06/11/24 11/23/24 acetaminophen 650 mg 650 mg PO Q12H PRN pain 07/20/24 11/23/24 tablet,extended release albuterol sulfate 90 mcg/actuation 2 puff inhalation Q4-6H PRN 07/20/24 11/23/24 aerosol inhaler Shortness Of Breath Or Wheezing baclofen 10 mg tablet 10 mg PO TID PRN muscle spasm 07/20/24 11/23/24 buspirone 10 mg tablet 10 mg BID 07/20/24 11/23/24 cholecalciferol (vitamin D3) 50 50 mcg DAILY 07/20/24 11/23/24 mcg (2,000 unit) capsule hydroxyzine HCl 50 mg tablet 50 mg PO Q6H PRN anxiety 07/20/24 11/23/24 venlafaxine 75 mg capsule,extended 75 mg PO DAILY 07/20/24 11/23/24 release 24 hr aripiprazole 2 mg tablet 2 mg PO DAILY 11/23/24 11/23/24 lisinopril 10 mg tablet 10 mg PO DAILY 11/23/24 11/23/24 Previous Rx's ?Medication ?Instructions ?Recorded nystatin 100,000 unit/gram topical 1 appl topical DAILY #15 grams 06/30/24 cream methimazole 10 mg tablet 10 mg PO DAILY #30 tabs 07/23/24 propranolol 10 mg tablet 10 mg PO TID #270 tabs 07/23/24 ascorbic acid (vitamin C) 1,000 mg 1,000 mg PO DAILY 90 days #90 tabs 11/16/24 tablet dextromethorphan-guaifenesin 10 10 ml PO Q6H PRN Cough #237 mL 11/25/24 mg-100 mg/5 mL oral syrup ipratropium 0.5 mg-albuterol 3 mg 3 ml inhalation RQ4H WHILE AWAKE 11/25/24 (2.5 mg base)/3 mL nebulization PRN Shortness Of Breath/Wheezing soln #90 mL methenamine hippurate 1 gram tablet 1 g PO DAILY 90 days #90 tabs 12/14/24 levofloxacin 250 mg tablet 250 mg PO Q24H 7 days #7 tabs 03/22/25 oxycodone 5 mg tablet 5 mg PO Q6H PRN pain #10 tabs 03/22/25 levofloxacin 500 mg tablet 500 mg PO DAILY #5 tabs 03/26/25 loperamide 2 mg capsule 2 mg PO Q6H PRN loose stool #10 04/02/25 caps ondansetron 4 mg disintegrating 4 mg PO Q8H PRN nausea and 04/02/25 tablet vomiting #10 tabs sulfamethoxazole 800 1 tab PO BID #20 tabs 04/02/25 mg-trimethoprim 160 mg tablet sulfamethoxazole 800 1 tab PO BID 10 days #20 tabs 04/27/25 mg-trimethoprim 160 mg tablet (Bactrim DS) Allergies Allergy/AdvReac Type Severity Reaction Status Date / Time No Known Allergies Allergy Verified 04/27/25 14:48 Review of Systems Review of Systems: Yes all other systems are reviewed and are negative [facility] Past Medical History Medical History Hyperthyroidism Hemiparesis affecting left side as late effect of stroke Hypotonic bladder H/O urinary retention GERD (gastroesophageal reflux disease) Hyperlipidemia HTN (hypertension) PFO (patent foramen ovale) Patellofemoral arthrosis Knee derangement Surgical History History of surgery Social History Social History Household Members: Other Household Members Other:: [employer]IN [employer] Housing: Apartment Do you presently have visiting nurse or other home services: Yes (31/05 [employer] THAT LIVES WITH PT) Alcohol intake: current Alcohol intake frequency: does not drink Alcohol type: beer Patient Tobacco Use Status: Never used Tobacco Substance Use Type: Marijuana Advance Directives: Yes Advance Directives on File: Yes Advance Directives Date on File: 11/27/24 Do you have a plan to hurt others: No Plan service: No Current occupational status: retired and disabled 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 Physical Exam ED Vital Signs: Vital Signs - 24 hr 04/27/25 14:47 04/27/25 16:11 04/27/25 17:52 Temperature 99.0 F 98.6 F 98.2 F Pulse Rate 94 63 66 Respiratory Rate 18 14 22 H Blood Pressure 195/112 H 175/115 H 183/95 H Pulse Oximetry 97 95 96 Oxygen Delivery Method Room Air Room Air Room Air 04/27/25 18:59 04/27/25 19:31 04/27/25 20:16 Temperature 98.7 F Pulse Rate 68 Respiratory Rate 18 Blood Pressure 211/108 H 226/109 H 195/106 H Pulse Oximetry 98 Oxygen Delivery Method Room Air 04/27/25 20:29 Temperature 97.9 F Pulse Rate 62 Respiratory Rate 14 Blood Pressure 185/87 H Pulse Oximetry 97 Oxygen Delivery Method Room Air BMI result Body Mass Index 35.4 Appearance: Alert. Oriented X3. No acute distress. Head/face: normocephalic, facial asymmetry noted due to bells palsy Eyes: Pupils equal, round and reactive to light. ENT: Pharynx normal. No tonsillar swelling or exudate. Neck: Normal inspection. Neck supple. CVS: Normal heart rate and rhythm. Pulses normal. Respiratory: No respiratory distress. Breath sounds normal. Abdomen: Obese, Soft with suprapubic tenderness, +BS x4 Skin: Skin warm and dry. Normal skin color. Normal skin turgor. No rashes. Extremities: No lower extremity edema. No joint swelling. Neuro/psych: Oriented X 3. LE weakness bilaterally. Medications Administered Discontinued Medications Generic Name Dose Route Start Last Admin Trade Name Freq PRN Reason Stop Dose Admin Amlodipine Besylate 10 mg 04/27/25 19:02 04/27/25 19:31 Amlodipine Besylate 10 Mg Tablet PO 04/27/25 19:03 10 mg ONCE ONE Administration Protocol Lisinopril 10 mg 04/27/25 20:07 04/27/25 20:16 Lisinopril 10 Mg Tablet PO 04/27/25 20:08 10 mg ONCE ONE Administration Protocol Oxycodone HCl 5 mg 04/27/25 20:06 04/27/25 20:15 Oxycodone Hcl Immed Release 5 Mg Tablet PO 04/27/25 20:07 5 mg ONCE ONE Administration Potassium Chloride 40 meq 04/27/25 16:05 04/27/25 17:25 Potassium Chloride Er 20 Meq Tab.Er.Prt PO 04/27/25 16:06 40 meq ONCE ONE Administration Tizanidine HCl 4 mg 04/27/25 20:06 04/27/25 20:17 Tizanidine Hcl 4 Mg Tablet PO 04/27/25 20:07 4 mg ONCE ONE Administration Trimethoprim/Sulfamethoxazole 1 tab 04/27/25 19:05 04/27/25 19:31 Sulfamethox/Trimeth 800/160 Tablet PO 04/27/25 19:06 1 tab ONCE ONE Administration Medical Decision Making Medical Decision Making MDM Narrative: 59-year-old female with history of stroke with left-sided deficits, chronic Covarrubias with recurrent UTIs presenting to the ER for evaluation of Covarrubias catheter not draining since yesterday. She reports significant pain today. She reports sediment and foul-smelling urine leaking out of the catheter. On arrival she is hypertensive 195/112. She states she was prepared to go to housing court today and has been very stressed. She denies any chest pain, headache, vision changes. She states her blood pressure is always high. She thinks she took her lisinopril this morning, unclear of the mg. Covarrubias catheter was exchanged and a urine sample was sent from the new catheter. it is consistent with urinary tract infection. Her old cultures were reviewed, she most recently had a MRSA UTI. Will treat with Bactrim for 10 day course. She has a mild leukocytosis but no fevers, no tachycardia here. Her blood pressure repeated after Covarrubias catheter replacement continues to be elevated. She is sleeping between care and is asymptomatic. She was given 10 mg of Norvasc. re-evaluated and BP remained high. she reports muscle spasm in her neck. given muscle relaxer and lisinopril. BP improved 180/90. we discussed possible admission to the hospital for her BP. she states she has a cuff at home and will monitor it there. we discussed signs and symptoms of HTN emergency. she again was adament she would like to go home. comfortable with discharge home, BP Monitoring at home with her caregivers and close PCP follow up. Differential Diagnosis Differential Diagnoses: The differential diagnosis associated with the presentation includes obstructive uropathy, UTI, HTN urgency, malignant HTN Admission/Observation Consideration of admission/observation: Escalation of care including admission/observation considered Lab Data MDM Lab Attestation statement: I reviewed the patient's lab results. leukocytosis, normal renal function 04/27/25 15:42 04/27/25 15:42 Labs: Lab Results 04/27/25 04/27/25 Range/Units 15:42 18:08 WBC 13.3 H (4.8-10.8) X10*3/uL RBC 4.53 (4.20-5.50) X10*6/uL Hgb 12.4 (12.0-16.0) g/dl Hct 36.7 L (37.0-47.0) % MCV 81.0 (80.0-98.0) fL MCH 27.4 (27.0-33.0) pg MCHC 33.8 (31.0-35.0) g/dl RDW 13.8 (11.0-16.0) % Plt Count 297 (160-400) X10*3/uL MPV 9.2 L (9.4-12.3) fL Immature Gran % (Auto) 0.4 (0.0-0.4) % Neut % (Auto) 50.3 (45-73) % Lymph % (Auto) 39.1 (20-40) % [place] % (Auto) 6.8 (2-11) % Eos % (Auto) 2.9 (0-4) % Baso % (Auto) 0.5 (0-2) % Lymph # (Auto) 5.2 H (1.2-4.9) X10*3/uL [place] # (Auto) 0.9 (0.1-1.2) X10*3/uL Eos # (Auto) 0.4 (0.0-0.4) X10*3/uL Baso # (Auto) 0.1 (0.0-0.2) X10*3/uL Abs Immat Gran (auto) 0.05 H (0.00-0.03) X10*3/uL Absolute Neuts (auto) 6.7 (2.0-8.3) x10*3/uL Absolute Nucleated RBC 0.000 (0.0-0.012) X10*3/uL Nucleated RBC % (auto) 0.0 (0.0-0.2) /100WBC Smear Tech's Comments VERIFIED Sodium 143 (135-145) mmol/L Potassium 3.1 L D (3.3-5.1) mmol/L Chloride 109 H (96-108) mmol/L Carbon Dioxide 27 (22-29) mmol/L Anion Gap 10 L (12-20) BUN 16 (9-16) mg/dL Creatinine 0.64 (0.5-1.4) mg/dL Estim Creat Clear Calc 101.2 Estimated GFR > 60 Random Glucose 101 (60-115) mg/dL Calcium 8.6 D (8.4-10.2) mg/dL Urine Color Yellow Urine Appearance Cloudy Urine pH 6.5 (5.0-9.0) Ur Specific [place] 1.015 (1.005-1.025) Urine Protein 30 (1+) H (Neg-Trace) mg/dL Urine Glucose (UA) Negative (Negative) mg/dL Urine Ketones Negative (Negative) mg/dL Urine Blood Large (3+) H (Negative) Urine Nitrite Negative (Negative) Ur Leukocyte Esterase Large (3+) H (Negative) Urine RBC >20 H (0-2) /HPF Urine WBC >50 H (0-5) /HPF Ur Squamous Epith Cells 0-2 (0-2) /HPF Urine Bacteria 3+ (None Seen) Hyaline Casts 0-2 (0-2) /LPF Independent Historian Clinical information obtained from an independent historian. History obtained from or confirmed by: EMS External Record Review External record reviewed: Outpatient record, Prior outpatient labs and Prior outpatient radiology Prescription Management I considered prescription management with: Pain Medication and Antibiotic Chronic Conditions Patient?s care impacted by: Hypertension and Other (chronic covarrubias and recurrent UTIs) Critical Care Time Critical Care Time Critical Care Time: No Discharge Plan Discharge Clinical Impression: Catheter-associated urinary tract infection Qualifiers: Indwelling urinary catheter type: indwelling urethral catheter Encounter type: initial encounter Qualified Code(s): T83.511A - Infection and inflammatory reaction due to indwelling urethral catheter, initial encounter Hypertension Qualifiers: Hypertension type: unspecified Qualified Code(s): I10 - Essential (primary) hypertension Patient Disposition: Home, Self-Care Instructions: Catheter-associated Urinary Tract Infection (ED) Additional Instructions: You have a catheter associated UTI Take the prescribed antibiotics as directed, complete the entire course and do not miss any doses The next dose is due in the morning Your blood pressure was severe elevated today It is important that you monitor it closely at home. If it is still greater than 200/100, call 911 or come back to the ER for further evaluation and treatment Follow up with your doctor as soon as possible Prescriptions: New sulfamethoxazole-trimethoprim [Bactrim DS] 800-160 mg tablet 1 tab PO BID 10 Days Qty: 20 0RF No Action ascorbic acid (vitamin C) 1,000 mg tablet 1,000 mg PO DAILY 90 Days Qty: 90 1RF nystatin 100,000 unit/gram cream 1 appl topical DAILY Qty: 15 0RF venlafaxine 75 mg capsule,extended release 24hr 75 mg PO DAILY hydroxyzine HCl 50 mg tablet 50 mg PO Q6H PRN (Reason: anxiety) acetaminophen 650 mg tablet extended release 650 mg PO Q12H PRN (Reason: pain) buspirone 10 mg tablet 10 mg BID cholecalciferol (vitamin D3) 50 mcg (2,000 unit) capsule 50 mcg DAILY baclofen 10 mg tablet 10 mg PO TID PRN (Reason: muscle spasm) albuterol sulfate 90 mcg/actuation Hfa Aerosol Inhaler 2 puff INHALATION Q4-6H PRN (Reason: Shortness Of Breath Or Wheezing) propranolol 10 mg Tablet 10 mg PO TID Qty: 270 0RF Protocol: Hold for SBP/HR < HOLD for SBP < : 90 HOLD for HR < : 60 methimazole 10 mg Tablet 10 mg PO DAILY Qty: 30 0RF lisinopril 10 mg tablet 10 mg PO DAILY aripiprazole 2 mg tablet 2 mg PO DAILY dextromethorphan-guaifenesin 10-100 mg/5 mL Syrup 10 ml PO Q6H PRN (Reason: Cough) Qty: 237 0RF ipratropium-albuterol 0.5 mg-3 mg(2.5 mg base)/3 mL Solution For Nebulization 3 ml inhalation RQ4H WHILE AWAKE PRN (Reason: Shortness Of Breath/Wheezing) Qty: 90 0RF levofloxacin 500 mg tablet 500 mg PO DAILY Qty: 5 0RF gabapentin 300 mg capsule 900 mg PO TID oxycodone 5 mg tablet 5 mg PO Q6H PRN (Reason: pain) Qty: 10 0RF Rx Instructions: Patient may request partial refill; Partial Fill upon patient request. levofloxacin 250 mg tablet 250 mg PO Q24H 7 Days Qty: 7 0RF sulfamethoxazole-trimethoprim 800-160 mg tablet 1 tab PO BID Qty: 20 0RF ondansetron 4 mg tablet,disintegrating 4 mg PO Q8H PRN (Reason: nausea and vomiting) Qty: 10 0RF loperamide 2 mg capsule 2 mg PO Q6H PRN (Reason: loose stool) Qty: 10 0RF fluticasone propionate 50 mcg/actuation spray,suspension 2 spray intranasal DAILY PRN (Reason: Allergy Symptoms) aspirin [Adult Aspirin Regimen] 81 mg tablet,delayed release (DR/EC) 81 mg PO DAILY methenamine hippurate 1 gram tablet 1 g PO DAILY 90 Days Qty: 90 1RF Discharge Date/Time: 04/27/25 22:00 Print Language: Vietnamese
[2025-04-27 15:58] LABS: Anion Gap 10 (12-20); Blood Urea Nitrogen 16 mg/dL (9-16); Calcium 8.6 mg/dL (8.4-10.2); Carbon Dioxide 27 mmol/L (22-29); Chloride 109 mmol/L (96-108); Creatinine Clr Calc Pharmacy 101.2; Estimated Glomerular Filt Rate > 60; Glucose Random 101 mg/dL (60-115); Potassium 3.1 mmol/L (3.3-5.1); Sodium 143 mmol/L (135-145)
[2025-04-27 17:19] LABS: SLIDE REVIEW VERIFIED
[2025-04-27] MEDS: Potassium Chloride ER 20 MEQ TAB.ER.PRT 40 MEQ PO (17:25)
[2025-04-27 18:40] LABS: Appearance Urine Cloudy; Color Urine Yellow; Glucose Urine UA Negative (Negative); Leukocyte Esterase Urine Large (3+) (Negative); Nitrite Urine Negative (Negative); PH 6.5 (5.0-9.0); Specific Gravity - Urine 1.015 (1.005-1.025); UMIC TRIGGER UACC YES; Urine Blood Large (3+) (Negative); Urine Ketones Negative (Negative); Urine Protein 30 (1+) mg/dL (Neg-Trace)
[2025-04-27 18:46] LABS: Bacteria Urine 3+ (None Seen); Hyaline Casts Urine 0-2 /LPF (0-2); RBC Urine >20 /HPF (0-2); Squamous Epithelial Cell Urine 0-2 /HPF (0-2); UACC Culture Trigger YES; WBC Urine >50 /HPF (0-5)
[2025-04-27] MEDS: Sulfamethox/Trimeth 800/160 TABLET 1 TAB PO (19:31)
[2025-04-27] MEDS: amLODIPine Besylate 10 MG TABLET PO (19:31)
--- NOTE | 2025-04-27 19:33 | PC.NURSE ---
pt medicated per jan, tolerated well with water. provider aware of bp
[2025-04-27] MEDS: oxyCODONE HCl Immed Release 5 MG TABLET PO (20:15)
[2025-04-27] MEDS: lisinopriL 10 MG TABLET PO (20:16)
[2025-04-27] MEDS: TiZANidine HCL 4 MG TABLET PO (20:17)
--- NOTE | 2025-04-27 21:29 | PC.NURSE ---
ems at bedside for report.
== END 2025-04-27 22:00 | disposition home or self-care (01) ==
PROVIDERS: Physician Assistant; Emergency Provider Emergency Medicine; PCP Family Medicine
DX: T83.511A Infection and inflammatory reaction due to indwelling urethral catheter, initial encounter (principal); X58.XXXA Exposure to other specified factors, initial encounter; N39.0 Urinary tract infection, site not specified; I10 Essential (primary) hypertension; R39.89 Other symptoms and signs involving the genitourinary system; R51.9 Headache, unspecified; R79.89 Other specified abnormal findings of blood chemistry; D72.829 Elevated white blood cell count, unspecified; M62.838 Other muscle spasm; F43.9 Reaction to severe stress, unspecified; Z79.899 Other long term (current) drug therapy; Z86.73 Personal history of transient ischemic attack (TIA), and cerebral infarction without residual deficits; Z87.440 Personal history of urinary (tract) infections
CPT/HCPCS: 36415; 51702; 51798; 80048; 81001; 85025; 87086; 99284

== ENCOUNTER 2025-05-01 07:45 | Emergency (ER) | payer MEDICAID, SELFPAY ==
[2025-05-01 07:58] VITALS: BP 160/78; BP 197/99; PULSE 66; PULSE 75; RESP 24; TEMP 36.6; O2SAT 95; O2SAT 98; BMI 34.3
--- OUTSIDE RECORDS SUMMARY | 2025-05-01 08:16 | XMS_ITS | Encounter Summary ---
Author Organization [facility] Address [address] [facility] [address] [place] [address] Care Team Providers Care Transition Social Worker Name Role Phone Aliza Paul DO Primary Care Provider [phone] Lesley Ingram Unavailable Rosi Castro RN Unavailable [phone] Rosi Castro RN Unavailable [phone] Lesley Ingram Unavailable Rocio Ingram RN Unavailable [phone] Kathrine Blank Unavailable Reason for Visit * Reason Comments Med Refill Encounter Details Date Type Department Care Team (Late st Contact Info) Description 06/06/2024 Refill [facility] [address], [place] [phone] Ailza Paul DO [address], [place] [phone] Chronic nonintractable headache, unspecified headache type Social [...] documented as of this encounter Care Teams Transition Social Worker Relationship Specialty Start Date End Date Aliza Paul DO [address] [place] [id number] PCP - General Family Medicine 02/23/12 Lesley Ingram Community Health Worker 05/17/24 Rosi Castro RN [address] [place] [address] Trade Manager 05/17/24 03/05/25 Rosi Castro RN [address] [place] [address] Registered Nurse Family Medicine 04/06/25 04/10/25 Lesley Ingram 04/06/25 04/10/25 Rocio Ingram RN [address] [place] [id number] Registered Nurse Family Medicine 04/19/25 Kathrine Blank 04/19/25 [facility] 07/27/24 documented as of this encounter
--- NOTE | 2025-05-01 08:41 | ED.GENADULT ---
HPI - General Adult General Chief complaint: Dyspnea Stated complaint: sob Time Seen by Provider: 05/01/25 08:41 History of Present Illness ED Provider: Miguel Angel VELASCO narrative: The patient is a 59-year-old female with multiple chronic medical problems who came to the emergency department by ambulance. Her chief complaint was that her APPLIED BEHAVIOR SCIENCE SPECIALIST had turned off the air conditioning in her apartment. Seems as though she has had some kind of a disagreement with her APPLIED BEHAVIOR SCIENCE SPECIALIST. She is dissatisfied with her APPLIED BEHAVIOR SCIENCE SPECIALIST because the APPLIED BEHAVIOR SCIENCE SPECIALIST stays at her apartment and another person who was a friend of the APPLIED BEHAVIOR SCIENCE SPECIALIST stays at the apartment as well despite the patient's objections. the patient says that her apartment became quite hot and she was feeling somewhat short of breath because of the heat. She therefore called 911. after getting into an air-conditioned environment she is feeling much better. The patient is also complaining that she feels she has made little or no improvement in his case of recent Abraham's palsy despite taking a course of prednisone and valacyclovir. The patient has been evaluated in the emergency department at [facility] on April 18. She had full neurological workup including a CT angiogram of the head and neck and a neurology consult in the emergency department. Ultimately it seemed as though the patient has rather profound left-sided facial weakness seemed most consistent with Abraham's palsy and she was discharged home on prednisone and valacyclovir. She feels that she has had little or no improvement in the paralysis of the left side of her face. She says this paralysis of the left side of her face makes talking difficult. Related Data Home Medications ?Medication ?Instructions ?Recorded ?Confirmed fluticasone propionate 50 2 spray intranasal DAILY PRN 11/18/21 11/23/24 mcg/actuation nasal Allergy Symptoms spray,suspension aspirin 81 mg tablet,delayed 81 mg PO DAILY 12/07/23 11/23/24 release (Adult Aspirin Regimen) gabapentin 300 mg capsule 900 mg PO TID 06/11/24 11/23/24 acetaminophen 650 mg 650 mg PO Q12H PRN pain 07/20/24 11/23/24 tablet,extended release albuterol sulfate 90 mcg/actuation 2 puff inhalation Q4-6H PRN 07/20/24 11/23/24 aerosol inhaler Shortness Of Breath Or Wheezing baclofen 10 mg tablet 10 mg PO TID PRN muscle spasm 07/20/24 11/23/24 buspirone 10 mg tablet 10 mg BID 07/20/24 11/23/24 cholecalciferol (vitamin D3) 50 50 mcg DAILY 07/20/24 11/23/24 mcg (2,000 unit) capsule hydroxyzine HCl 50 mg tablet 50 mg PO Q6H PRN anxiety 07/20/24 11/23/24 venlafaxine 75 mg capsule,extended 75 mg PO DAILY 07/20/24 11/23/24 release 24 hr aripiprazole 2 mg tablet 2 mg PO DAILY 11/23/24 11/23/24 lisinopril 10 mg tablet 10 mg PO DAILY 11/23/24 11/23/24 Previous Rx's ?Medication ?Instructions ?Recorded nystatin 100,000 unit/gram topical 1 appl topical DAILY #15 grams 06/30/24 cream methimazole 10 mg tablet 10 mg PO DAILY #30 tabs 07/23/24 propranolol 10 mg tablet 10 mg PO TID #270 tabs 07/23/24 ascorbic acid (vitamin C) 1,000 mg 1,000 mg PO DAILY 90 days #90 tabs 11/16/24 tablet dextromethorphan-guaifenesin 10 10 ml PO Q6H PRN Cough #237 mL 11/25/24 mg-100 mg/5 mL oral syrup ipratropium 0.5 mg-albuterol 3 mg 3 ml inhalation RQ4H WHILE AWAKE 11/25/24 (2.5 mg base)/3 mL nebulization PRN Shortness Of Breath/Wheezing soln #90 mL methenamine hippurate 1 gram tablet 1 g PO DAILY 90 days #90 tabs 12/14/24 levofloxacin 250 mg tablet 250 mg PO Q24H 7 days #7 tabs 03/22/25 oxycodone 5 mg tablet 5 mg PO Q6H PRN pain #10 tabs 03/22/25 levofloxacin 500 mg tablet 500 mg PO DAILY #5 tabs 03/26/25 loperamide 2 mg capsule 2 mg PO Q6H PRN loose stool #10 04/02/25 caps ondansetron 4 mg disintegrating 4 mg PO Q8H PRN nausea and 04/02/25 tablet vomiting #10 tabs sulfamethoxazole 800 1 tab PO BID #20 tabs 04/02/25 mg-trimethoprim 160 mg tablet sulfamethoxazole 800 1 tab PO BID 10 days #20 tabs 04/28/25 mg-trimethoprim 160 mg tablet (Bactrim DS) Allergies Allergy/AdvReac Type Severity Reaction Status Date / Time No Known Allergies Allergy Verified 05/01/25 08:00 Review of Systems Review of Systems: Yes all other systems are reviewed and are negative FORMERLY [facility], [facility]–1983 Past Medical History Medical History Hyperthyroidism Hemiparesis affecting left side as late effect of stroke Hypotonic bladder H/O urinary retention GERD (gastroesophageal reflux disease) Hyperlipidemia HTN (hypertension) PFO (patent foramen ovale) Patellofemoral arthrosis Knee derangement Surgical History History of surgery Social History Social History Household Members: Other Household Members Other:: [facility]IN [facility] Housing: Apartment Do you presently have visiting nurse or other home services: Yes (31/05 APPLIED BEHAVIOR SCIENCE SPECIALIST THAT LIVES WITH PT) Alcohol intake: current Alcohol intake frequency: does not drink Alcohol type: beer Patient Tobacco Use Status: Never used Tobacco Smoked in Last 30 Days: No Use of substances other than those prescribed or required for medical reasons: Yes Substance Use Type: Marijuana Last Used Substance: Just Prior to Admission Advance Directives: Yes Advance Directives on File: Yes Advance Directives Date on File: 11/27/24 Do you have a plan to hurt others: No Plan service: No Current occupational status: retired and disabled 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 She looks very chronically ill but not obviously acutely ill. She has a profound complete left-sided facial paralysis. HENMT Other: The patient has a very impressive left-sided facial paralysis including the upper portion of the left side of the face. Mucous membranes are moist and the pharynx is clear. Eyes Other: Pupils are round equal, conjunctivae are clear, extraocular movements intact Neck Neck: Yes normal visual inspection, Yes full ROM and Yes no JVD Resp Other: Breath sounds were clear. No definite wheezing. No crackles. Cardio Rate: regular rate Rhythm: regular rhythm Heart sounds: S1 normal heart sound present and S2 normal heart sound present GI Other: Abdomen is soft and nontender Skin Other: The skin is dry and unremarkable Neuro Other: The patient is awake and alert with a normal mental status. Pupils are round equal, extraocular movements are intact, she has a complete left-sided facial weakness including the upper portion of the face. Her speech is slightly abnormal because of the left-sided facial paralysis but there was no aphasia or dysarthria otherwise. She moves her extremities symmetrically. Extrem Other: No peripheral edema, no calf swelling or tenderness, no asymmetry Medications Administered Discontinued Medications Generic Name Dose Route Start Last Admin Trade Name Babarq PRN Reason Stop Dose Admin Baclofen 10 mg 05/01/25 09:07 05/01/25 09:20 Baclofen 10 Mg Tablet PO 05/01/25 09:08 10 mg ONCE ONE Administration Hydroxyzine HCl 25 mg 05/01/25 13:55 05/01/25 14:01 Hydroxyzine Hcl 25 Mg Tablet PO 05/01/25 13:56 25 mg ONCE ONE Administration Hydroxyzine HCl 25 mg 05/01/25 14:56 05/01/25 15:41 Hydroxyzine Hcl 25 Mg Tablet PO 05/01/25 14:57 25 mg ONCE ONE Administration Medical Decision Making Medical Decision Making [facility] Narrative: The patient is a 59-year-old woman with a history of severe COPD on home oxygen who also has a chronic indwelling urinary catheter and frequent UTIs and who also recently developed a significant case of left-sided Abraham's palsy that was evaluated thoroughly at [facility] and for which she has already completed a course of prednisone and valacyclovir. I believe that she is in the emergency room today primarily because of a disagreement with her APPLIED BEHAVIOR SCIENCE SPECIALIST who turned off her air conditioning. It is a very hot day today. Although the patient seems quite chronically ill it was not obvious that she was acutely ill in any way. She was observed for several hours. Basic investigations including EKG and labs were done which are unremarkable. The patient initially said that she would not feel safe returning to her apartment but she later changed her mind and said that she had to return to her apartment because she did not want her APPLIED BEHAVIOR SCIENCE SPECIALIST taking over her apartment. She requested discharge and an ambulance was arranged to return her to her apartment. Lab Data 05/01/25 12:04 05/01/25 12:04 Labs: Lab Results 05/01/25 Range/Units 12:04 WBC 13.4 H (4.8-10.8) X10*3/uL RBC 4.78 (4.20-5.50) X10*6/uL Hgb 13.2 (12.0-16.0) g/dl Hct 40.0 (37.0-47.0) % MCV 83.7 (80.0-98.0) fL MCH 27.6 (27.0-33.0) pg MCHC 33.0 (31.0-35.0) g/dl RDW 14.6 (11.0-16.0) % Plt Count 299 (160-400) X10*3/uL MPV 9.1 L (9.4-12.3) fL Immature Gran % (Auto) 0.4 (0.0-0.4) % Neut % (Auto) 64.6 (45-73) % Lymph % (Auto) 28.4 (20-40) % Ocean % (Auto) 4.8 (2-11) % Eos % (Auto) 1.6 (0-4) % Baso % (Auto) 0.2 (0-2) % Lymph # (Auto) 3.8 (1.2-4.9) X10*3/uL Ocean # (Auto) 0.6 (0.1-1.2) X10*3/uL Eos # (Auto) 0.2 (0.0-0.4) X10*3/uL Baso # (Auto) 0.0 (0.0-0.2) X10*3/uL Abs Immat Gran (auto) 0.06 H (0.00-0.03) X10*3/uL Absolute Neuts (auto) 8.6 H (2.0-8.3) x10*3/uL Absolute Nucleated RBC 0.000 (0.0-0.012) X10*3/uL Nucleated RBC % (auto) 0.0 (0.0-0.2) /100WBC Sodium 142 (135-145) mmol/L Potassium 4.1 D (3.3-5.1) mmol/L Chloride 111 H (96-108) mmol/L Carbon Dioxide 23 (22-29) mmol/L Anion Gap 12 (12-20) BUN 23 H (9-16) mg/dL Creatinine 0.78 (0.5-1.4) mg/dL Estim Creat Clear Calc 81.6 Estimated GFR > 60 Random Glucose 82 (60-115) mg/dL Calcium 9.2 D (8.4-10.2) mg/dL Total Bilirubin 0.5 (0.0-1.0) mg/dL Direct Bilirubin 0.1 (0.0-0.5) mg/dL AST 12 (5-31) U/L ALT 9 (0-31) U/L Alkaline Phosphatase 57 (39-117) U/L Total Protein 6.0 L (6.5-8.0) g/dL Albumin 3.7 (3.5-5.0) g/dL Independent Interpretation I performed an independent interpretation of an: EKG Interpretation: EKG at 11:44 shows normal sinus rhythm at 59 beats per minute. No definite acute ischemic changes. Discharge Plan Discharge Clinical Impression: Heat exposure, Abraham's palsy Patient Disposition: Home, Self-Care Instructions: Abraham Palsy (ED) Additional Instructions: Please make sure that your air conditioning is working. Please make a follow up appointment with your regular doctor to discuss your Abraham's palsy further. I would recommend taping your left eye shut at night to help protect your left eye in case of incomplete closure of the eye at night when you were sleeping. Continue your other medications. Return to the emergency room if you feel significantly worse. Prescriptions: No Action ascorbic acid (vitamin C) 1,000 mg tablet 1,000 mg PO DAILY 90 Days Qty: 90 1RF nystatin 100,000 unit/gram cream 1 appl topical DAILY Qty: 15 0RF venlafaxine 75 mg capsule,extended release 24hr 75 mg PO DAILY hydroxyzine HCl 50 mg tablet 50 mg PO Q6H PRN (Reason: anxiety) acetaminophen 650 mg tablet extended release 650 mg PO Q12H PRN (Reason: pain) buspirone 10 mg tablet 10 mg BID cholecalciferol (vitamin D3) 50 mcg (2,000 unit) capsule 50 mcg DAILY baclofen 10 mg tablet 10 mg PO TID PRN (Reason: muscle spasm) albuterol sulfate 90 mcg/actuation Hfa Aerosol Inhaler 2 puff INHALATION Q4-6H PRN (Reason: Shortness Of Breath Or Wheezing) propranolol 10 mg Tablet 10 mg PO TID Qty: 270 0RF Protocol: Hold for SBP/HR < HOLD for SBP < : 90 HOLD for HR < : 60 methimazole 10 mg Tablet 10 mg PO DAILY Qty: 30 0RF lisinopril 10 mg tablet 10 mg PO DAILY aripiprazole 2 mg tablet 2 mg PO DAILY dextromethorphan-guaifenesin 10-100 mg/5 mL Syrup 10 ml PO Q6H PRN (Reason: Cough) Qty: 237 0RF ipratropium-albuterol 0.5 mg-3 mg(2.5 mg base)/3 mL Solution For Nebulization 3 ml inhalation RQ4H WHILE AWAKE PRN (Reason: Shortness Of Breath/Wheezing) Qty: 90 0RF levofloxacin 500 mg tablet 500 mg PO DAILY Qty: 5 0RF sulfamethoxazole-trimethoprim [Bactrim DS] 800-160 mg tablet 1 tab PO BID 10 Days Qty: 20 0RF gabapentin 300 mg capsule 900 mg PO TID oxycodone 5 mg tablet 5 mg PO Q6H PRN (Reason: pain) Qty: 10 0RF Rx Instructions: Patient may request partial refill; Partial Fill upon patient request. levofloxacin 250 mg tablet 250 mg PO Q24H 7 Days Qty: 7 0RF sulfamethoxazole-trimethoprim 800-160 mg tablet 1 tab PO BID Qty: 20 0RF ondansetron 4 mg tablet,disintegrating 4 mg PO Q8H PRN (Reason: nausea and vomiting) Qty: 10 0RF loperamide 2 mg capsule 2 mg PO Q6H PRN (Reason: loose stool) Qty: 10 0RF fluticasone propionate 50 mcg/actuation spray,suspension 2 spray intranasal DAILY PRN (Reason: Allergy Symptoms) aspirin [Adult Aspirin Regimen] 81 mg tablet,delayed release (DR/EC) 81 mg PO DAILY methenamine hippurate 1 gram tablet 1 g PO DAILY 90 Days Qty: 90 1RF Referrals: Aliza Paul DO [Primary Care Provider, Internal Medicine] Referral Note: Persistent left-sided facial weakness from Abraham's palsy Interventions: ED Discharge Assessment Last Done: 05/01/25 12:58 Discharge Date/Time: 05/01/25 15:41 Print Language: Belarusian
[2025-05-01] MEDS: Baclofen 10 MG TABLET PO (09:20)
--- NOTE | 2025-05-01 11:25 | ECG_ITS ---
Test Reason : WEAKNESS Blood Pressure : */* mmHG Vent. Rate : 59 BPM Atrial Rate : 312 BPM P-R Int : * ms QRS Dur : 76 ms QT Int : 422 ms P-R-T Axes : 44 -30 25 degrees QTcB Int : 417 ms Normal sinus rhythm Left axis deviation Moderate voltage criteria for LVH, may be normal variant ( R in aVL , Gibson product ) Septal infarct (cited on or before 02-Apr-2025) Abnormal ECG When compared with ECG of 02-Apr-2025 13:47, Vent. rate has decreased by 52 bpm Referred By: Jacek Michelle Electronically Signed By: JOE MCDONALD
[2025-05-01 12:08] LABS: MANUAL DIFF FLAG NO
[2025-05-01 12:10] LABS: Basophils Percent Auto 0.2 % (0-2); Eosinophils Absolute Auto 0.2 X10*3/uL (0.0-0.4); Eosinophils Percent Auto 1.6 % (0-4); Hemoglobin 13.2 g/dl (12.0-16.0); Imm Gran Abs Auto 0.06 X10*3/uL (0.00-0.03); Imm Gran Pct Auto 0.4 % (0.0-0.4); Lymphocytes Absolute Auto 3.8 X10*3/uL (1.2-4.9); Lymphocytes Percent Auto 28.4 % (20-40); Mean Corpuscular Hemoglobin 27.6 pg (27.0-33.0); Mean Corpuscular Volume 83.7 fL (80.0-98.0); Mean Platelet Volume 9.1 fL (9.4-12.3); Monocytes Absolute Auto 0.6 X10*3/uL (0.1-1.2); Monocytes Percent Auto 4.8 % (2-11); Neutrophils Absolute Auto 8.6 x10*3/uL (2.0-8.3); Neutrophils Percent Auto 64.6 % (45-73); Platelet Count 299 X10*3/uL (160-400); Red Blood Count 4.78 X10*6/uL (4.20-5.50); Red Cell Distribution Width 14.6 % (11.0-16.0); White Blood Count 13.4 X10*3/uL (4.8-10.8)
[2025-05-01 12:26] LABS: Alanine Aminotransferase 9 U/L (0-31); Albumin Level 3.7 g/dL (3.5-5.0); Alkaline Phosphatase 57 U/L (39-117); Anion Gap 12 (12-20); Aspartate Amino Transferase 12 U/L (5-31); Bilirubin Direct 0.1 mg/dL (0.0-0.5); Bilirubin Total 0.5 mg/dL (0.0-1.0); Blood Urea Nitrogen 23 mg/dL (9-16); Calcium 9.2 mg/dL (8.4-10.2); Carbon Dioxide 23 mmol/L (22-29); Chloride 111 mmol/L (96-108); Creatinine Clr Calc Pharmacy 81.6; Estimated Glomerular Filt Rate > 60; Glucose Random 82 mg/dL (60-115); Potassium 4.1 mmol/L (3.3-5.1); Sodium 142 mmol/L (135-145)
[2025-05-01 12:58] VITALS: BP 141/63; PULSE 67; RESP 20; TEMP 36.6; O2SAT 96
[2025-05-01] MEDS: hydrOXYzine HCL 25 MG TABLET PO ×2 (14:01→15:41)
== END 2025-05-01 15:41 | disposition home or self-care (01) ==
PROVIDERS: Emergency Provider Emergency Medicine; PCP Family Medicine
DX: T67.5XXA Heat exhaustion, unspecified, initial encounter (principal); X30.XXXA Exposure to excessive natural heat, initial encounter; G51.0 Bell's palsy; R06.02 Shortness of breath; J44.9 Chronic obstructive pulmonary disease, unspecified; Z99.81 Dependence on supplemental oxygen
CPT/HCPCS: 36415; 80048; 80076; 85025; 93005; 99283; 99284

== ENCOUNTER → 2025-05-01 11:25 | Outpatient (BNV) | payer MEDICAID, SELFPAY | PROVIDERS: Emergency Provider Emergency Medicine; PCP Family Medicine; Visit Provider Internal Medicine | DX: I25.2 Old myocardial infarction (principal) | CPT/HCPCS: 93010 ==

== ENCOUNTER 2025-05-30 15:01 | Emergency (ER) | payer MEDICAID, SELFPAY ==
[2025-05-30 15:13] VITALS: BP 130/102; BP 147/85; PULSE 67; PULSE 70; RESP 14; TEMP 36.1; O2SAT 96; O2SAT 97; BMI 32.8
--- OUTSIDE RECORDS SUMMARY | 2025-05-30 16:14 | XMS_ITS | Encounter Summary ---
Author Organization [employer] Address [address] [place] [address] Care Team Providers Care Merchandise For Resale Purchasing Agent Name Role Phone Aliza Paul DO Primary Care Provider [phone] Lesley Ingram Unavailable Rosi Castro RN Unavailable [phone] Rosi Castro RN Unavailable [phone] Lesley Ingram Unavailable Rocio Ingram RN Unavailable [phone] Kathrine Blank Unavailable Reason for Visit * Reason Comments Med Refill Encounter Details Date Type Department Care Team (Late st Contact Info) Description 06/06/2024 Refill [facility] [address] [place], [place] [phone] Aliza Paul DO [address] [place], [place] [phone] Chronic nonintractable headache, unspecified headache type Social [...] Care Team (Late st Contact Info) Description 05/31/2025 3:30 PM EDT Office Visit [facility] [address] [place] [address] TarKrystyna holguin, OD [address] [place] [address] 06/06/2025 11:15 AM EDT Office Visit [facility] [address] [place] [address] Aliza Paul DO [address] [place] [address] documented as of this encounter Visit Diagnoses Diagnosis Chronic nonintractable headache, unspecified headache type documented in this encounter Additional Health Concerns Assessment Noted Time PHQ-9 Depression Total Score: 4 03/09/20 24 9:14 AM EDT documented as of this encounter Care Teams Merchandise For Resale Purchasing Agent Relationship Specialty Start Date End Date Aliza Pual DO [address] [place] [address] PCP - General Family Medicine 02/23/12 Lesley Ingram Community Health Worker 05/17/24 Rosi Castro, RICHARDSON [address] [place] [address] Knit Goods Mender 05/17/24 03/05/25 Rosi Castro, RICHARDSON [address] [place] [address] Registered Nurse Family Medicine 04/06/25 04/10/25 Lesley Ingram 04/06/25 04/10/25 Rocio Ingram RN [address] [place] [address] Registered Nurse Family Medicine 04/19/25 Kathrine Blank 04/19/25 [facility] 07/27/24 05/28/25 [facility] 05/29/25 documented as of this encounter
--- OUTSIDE RECORDS SUMMARY | 2025-05-30 16:14 | XMS_ITS | Clinical Summary ---
Author Organization [facility] Address [address] [place] [id number] Phone Care Team Providers Care Clicker Operator Name Role Phone Aliza Paul DO Primary Care Provider [phone] Social History Tobacco Use Types Packs/Day Years Used Date Smoking Tobacco: Never Assessed Comments Unknown Sex and Gender Information Value Date Recorded Sex Assigned at Not on file Legal Sex Female 6:15 PM EST Gender Identity Not on file Sexual Orientation Not on file Plan of Treatment Health Maintenance Due Date Last Done Comments Breast Cancer Screening 1965 Hepatitis A Vaccines (1 of 2 - Risk 2-dose series) 1984 Hepatitis B Vaccines (1 of 3 - 19+ 3-dose series) 1984 Cervical Cancer Screening: P ap Smear 1986 Zoster Vaccines (1 of 2) 2015 Pneumococcal Vaccine: 50+ Years (2 of 2 - PCV) 12/16/2022 12/16/2021 COVID-19 Vaccine (2 - 2023-2 5 season) 2024 10/17/2022 Colorectal Cancer Screening: Colonoscopy 09/30/2024 Hepatitis C Screening 09/30/2024 Social Influencers of Health Screening 09/30/2024 Depression Screening 11/08/2024 Influenza Vaccine (#1) 2025 7, 08/16/2014, 08/02/2012 Hypertension/CHF/CAD Annual BMP Blood Test 12/08/2025 12/08/2024 Cholesterol Screening (Lipid Panel) 01/28/2027 01/28/2022 DTaP,Tdap,and Td Vaccines (4 - Td or Tdap) 09/06/2032 09/06/2022, 09/06/2022, 12/16/2021 RSV Immunization Adult Patients (1 - 1-dose 75+ series) 2040 HIV Screening Completed 01/28/2022 HIB Vaccines Aged Out [...] age to complete this topic Meningococcal B Vaccine Aged Out No l onger eligible based on patient's age to complete this topic RSV Immunization Patients Under 20 months Aged Out No longer eligible b ased on patient's age to complete this topic Varicella Vaccines Aged Out No longer eligible based on patient's age to complete this topic Insurance MEDICAID - [place] Care Teams Clicker Operator Relationship Specialty Start Date End Date Aliza Paul DO [address] [place], [place] PCP - General Family Medicine 10/04/24
--- OUTSIDE RECORDS SUMMARY | 2025-05-30 16:14 | XMS_ITS | Data Portability ---
Author Organization [facility], Main Office Address [address] [facility], [address] [place] [address] Care Team Providers Care Ginner Name Role Phone TAYLOR ELIAS - 2ND [...] Orders Dilaudid 4 mg tablet 2023 024 [facility] , [address] [place] [address], [address], 4 17:08:30 Patient TargetsNo targets recorded. Patient InstructionsNo instructions recorded. Reason for Referral None Reported. Problems Name Problem SNOMED Code Status Onset Date Resolution Date Notes Provider Name and Address Organization Details Recorded Time Hypertens ollie emergency 399428067831 104 Active 2023 Kyleigh Fritz NP [address] [facility], [address], [place], [address], [facility] [employer] 4 12:37:24 Headache 97669922 Active 2023 Kyleigh Fritz NP [address], [address], [place], [address], [employer] 4 12:37:35 Essential hypertens ion 62309319 Active 2023 Kyleigh Fritz NP [address], [address], [place], [address], [employer] [facility] 4 12:37:52 Chronic pain following spinal surgery Active 2023 Kyleigh Fritz NP [address], [address], [place], [address], [employer] [facility] 4 12:38:52 Leukocyto sis 381370760 Active 2023 Kyleigh Fritz NP [address] [facility], [address], [place], [address], [employer] [facility] 4 12:39:04 Retention of urine 965930225 Completed 202304/13/2024 Kiana Cassidy MD [address] [facility], [address], [place], [address], [employer] 4 15:44:08 Anxiety 94916643 Active 2023 Kyleigh Fritz NP [address] [facility], [address], [place], [address], [facility] 4 12:39:32 History of cervical discectom y 944669480006 64729 Completed 202304/13/2024 Kyleigh Fritz NP [address] [facility], [address], [place], [address], [employer] 4 13:00:38 History of hemorrhag ic cerebrova scular accident with residual deficit 636501054297 106 Active 2023 Kyleigh Fritz NP [address] [facility], [address], [place], [address], [employer] [facility] 4 13:02:54 Gastroeso phageal reflux disease 588585916 Active 2023 Kyleigh Fritz NP [address] [facility], [address], [place], [address], [facility] 4 13:04:09 Retention of urine 482713695 Active 2023 Kiana Cassidy MD [address] [facility], [address], [place], [address], [employer] 4 15:44:08 Urinary tract infectiou s disease 26063036 Active 2023 Kyleigh Fritz NP [address] [facility], [address], [place], [address], [employer] 4 13:32:30 Problem Notes None recorded. Medical [...] in Arterial blood by Pulse oximetry Systolic And Diastolic Provider Name and Address Organization Details Last Updated DateTime 4 160.02 cm 32.6 kg/m2 20291 g 90 /min 18 /min 97.2 [degF] 98 % 98 % 115/80 mm[Hg] Kyleigh Fritz NP [address] [facility], [address], [place], [address], [employer] 4 09:13:16 Date Recorded Body height Body mass index (BMI) Body weight Respiratory rate Heart rate Body temperature Oxygen saturation Oxygen saturation in Arterial blood by Pulse oximetry Systolic And Diastolic Provider Name and Address Organization Details Last Updated DateTime 4 160.02 cm 32.6 kg/m2 26422 g 19 /min 86 /min 97.5 [degF] 96 % 96 % 110/70 mm[Hg] Kyleigh Fritz NP [address] [facility], [facility] [address], [place], [address], [employer] [facility] 4 16:03:36 Date Recorded Body height Body weight Heart rate Respiratory rate Body temperature Oxygen saturation Oxygen saturation in Arterial blood by Pulse oximetry Systolic And Diastolic Provider Name and Address Organization Details Last Updated DateTime 4 160.02 cm 85581.1 4 g 85 /min 18 /min 97.4 [degF] 95 % 95 % 132/82 mm[Hg] Kyleigh rFitz NP [address] [facility] [address], [place], [address], [employer] 4 14:25:19 Date Recorded Body height Body mass index (BMI) Body weight Heart rate Respiratory rate Body temperature Oxygen saturation Oxygen saturation in Arterial blood by Pulse oximetry Systolic And Diastolic Provider Name and Address Organization Details Last Updated DateTime 4 160.02 cm 33.8 kg/m2 36032.1 4 g 83 /min 18 /min 98.1 [degF] 96 % 96 % 130/90 mm[Hg] Kyleigh Fritz NP [address] [place] [address] [address], [place], [address], [employer] [facility] 4 11:09:43 Date Recorded Body height Body temperature Heart rate Respiratory rate Oxygen saturation Oxygen saturation in Arterial blood by Pulse oximetry Systolic And Diastolic Provider Name and Address Organization Details Last Updated DateTime 4 160.02 cm 97.9 [degF] 82 /min 18 /min 96 % 96 % 140/92 mm[Hg] LILLIAN GOMEZ [address] [facility], [facility] [address], [place], [address], [facility] 4 11:53:33 Social History Question Answer Notes LastModified by Organizat ion Details LastModified Time Tobacco Smoking Status Never Smoker she says not really Kiana Cassidy MD [address] [facility], [facility] [address], [place], [address], [facility] [employer] [facility] 04/14/2024 21:45:44 Do You Have An Advance [...] Do You Have A Medical Power Of Security Ambassador? Yes Not Invoked Information not available 04/14/2024 What Was The Date Of Your Most Recent Tobacco Screening? 04/05/2024 Information not available 04/05/2024 Do You Have An Out Of Hospital DNR? No Information not available 04/05/2024 Have You Ever Been Counseled For Unhealthy Alcohol Use? No Information not available 04/05/2024 Has Tobacco Cessation Counseling Been Provided? No N/a As Pt Is Non-smoker Information not available 04/14/2024 Have You Used IV Drugs? No Information not available 04/14/2024 Sex: Female Functional Status Question Answer Note LastModified by Organizat ion Details LastModified Time Do you use any illicit or recreational drugs? Yes Information not available 04/14/2024 Do you or have you ever used any other forms of tobacco or nicotine? No Information not available 04/05/2024 What is your level of alcohol consumption? Occasional tells me I don't really drink, but previously said, I only have a cigarette when I'm drinking. Information not available 04/14/2024 Mental Status None recorded. Family History Nothing Reported Notes:N/C Medical History No medical history recorded. Gynecological HistoryNo gynecological history recorded. Obstetrics History GPAL:G 0 P 0 0 0 0 Immunizations Vaccine Type Date Status Note Provider Nam e and Address Organization Details Recorded Time Tdap 2 completed Helena wharton [facility] [employer] [facility] 04/07/2024 16:26:44 Tdap 2 completed Helena Magdaleno [facility] 04/07/2024 16:26:51 pneumococcal polysaccharide PPV23 2 completed Helena Magdaleno [facility] 04/07/2024 16:27:39 SARS-COV-2 (COVID-19) vaccine, UNSPECIFIED 2 completed Helena Magdaleon [facility] 04/07/2024 16:28:08 rabies, unspecified formulation 2 completed Helena Magdaleno [facility] 04/07/2024 16:28:22 Past Encounters Encounter ID Performer Location Encounter Start Date Encounter Closed Date Diagnosis/Indication Diagnosis SNOMED-CT Code Diagnosis ICD10 Code Diagnosis Note [id number] Kyleigh Fritz NP [facility] [address] [address] 04/05/2024 11:38:58 04/11/2024 14:41:13 Hypertensive crisis 711755500 I16.9 pt send to ER for hypertensi ve crisis initially 240/135 unrelieved by lisinopril , oxycodone, and anxiety medsBP 220/122 manually 1 hours post medssend to ER for hypertensi ve crisis Headache 02081778 R51.9 pt with head going to explode feeling and HTN crisis with recent hx of surgery and cvasend to ER for evaluation call [id number] Kyleigh Fritz NP [facility] [address] [address] 04/13/2024 12:11:45 04/17/2024 20:01:07 Hypertensive emergency 6763701806 98793 I16.1 felt related to pt not receiving pm meds on admission to rehab requiring nacard gtt and brief hypotensiv e episode with midodrine given felt stable on lisinopril 40 mg po dailymonit or vitals and bp Headache 15015955 R51.9 headache felt to be from hypertensi ve urgency aboveCT head no acute changes Chronic pa in following spinal surgery 8394925063 7102 G89.28 03/31-04/04 c 5-c7 acdf surgery [...] ax, senna dailywean as able Essential hypertension 56937535 I10 bp 148/98 here at 10amsee hypertensi ve emergency abovelisin opril 40 mg po dailymonit or vitals and bpcardiac diet Anxiety 14037445 F41.9 venlafaxin e 75 mg po daily(unsu re of why she is on this)hydro xyzine 50 mg po qid prn (was on bid)aripip razole 10 mg po dialymonit or and supportive care Leukocytosis 374860783 D 72.829 felt likely to medrol dose packmonito r labs weekly History of cervical discectomy 8378144053 0415780 Z98.890 recent hx of 03/31monito r neuros and fu with neuro Retention of urine 69557 4002 R33.9 hx of with chronic foleylast changed on 04/04foley careroutin e monthly changesmon itor History of hemorrhagic cerebrovascular accident with residual deficit 2471171880 74092 Z86.79 hx of stroke with residual deficitCT unremarkab leatorvast atin 20 mg po dailymonit or neuros Gastroesop hageal reflux disease 193158782 K21.9 famotidine 40 mg po dialymonit or [id number] Kiana Cassidy MD [address] [place] [address] 04/14/2024 13:29:20 04/17/2024 20:21:04 Hypertensive emergency 6599927306 43989 I16.1 Resolved inpt. Has had recurrent issues with labile BP including other episodes of hypertensi ve emergency, but then has had soft BPs and BP meds were held or d/c'd.Diff icult to manage. Has been running borderline high since return.Saqib l add HCTZ 25 mg qdContinue lisinopril 40 mg qd.Avoid BB due to bradycardi a.Monitor BP and labs. Headache 96113110 R51.9 With hx of migraines, but recent HAs due to hypertensi ve emergencie s.Monitor for sxs. Chronic pa in following spinal surgery 0724514255 7102 G89.28 Improving slowly in this woman [...] neurosurg on 04/20 as planned. Essential hypertension 07998087 I10 As above. Anxiety 18193906 F41.1 Mood continues to be labile.Con tinue venlafaxin e 75 mg qd, aripiprazo le 10 mg qd and hydroxyzin e 50 mg qid prn.Avoid benzos.Mon itor mood.Consu lt psych prn Leukocytosis 659261214 D 72.828 Much more elevated today.Will get U/A and C&S in this woman with chronic covarrubias.Nusrat tor for signs of infection. History of cervical discectomy 3482558037 4650082 Z98.890 As above. Retention of urine 08248 4002 R33.8 Apparently long standing.W as self cathing prior to stroke, now with chronic covarrubias, last changed on 04/04Contin ue covarrubias care and monthly changesWil l get U/A and C&S as above. History of hemorrhagic cerebrovascular accident with residual deficit 5149082904 63749 I61.1 S/P hemorrhagi c CVA in 01/2024.Con tinue PT/OT as above.Cont inue atorvastat in 20 mg qd.Keep SBP <160Monito r for new neuro sxs. Gastroesop hageal reflux disease 395938381 K21.9 No current sxs.Contin ue famotidine 40 mg qdMonitor for GI sxs. [id number] ATIF MILLER NP [facility] [address] [place] [address] 04/18/2024 14:33:47 04/21/2024 11:31:02 Hypertensive emergency 5588117709 19861 I16.1 Resolved inpt. Has had recurrent issues [...] a.Monitor BP and labs closely Essential hypertension 22048574 I10 As above. Leukocytosis 425899370 D 72.828 Trending up since admission, much better today (11.3)U/A and C&S ordered 04/14, but does not appear it was done - will re-orderCB C, BMP wednesdayVSSN o overt s/s infection at this time.Of note, is completing steroid taper. Headache 88345814 R51.9 With hx of migraines, but recent HAs due to hypertensi ve emergencie s.Monitor for sxs. Chronic pa in following spinal surgery 9121007062 7102 G89.28 Improving slowly in this woman [...] of hemorrhagic cerebrovascular accident with residual deficit 7652789312 33705 I61.1 S/P hemorrhagi c CVA in 01/2024.Con tinue PT/OT as above.Cont inue atorvastat in 20 mg qd.Keep SBP <160Monito r for new neuro sxs. Anxiety 16375627 F41.1 Mood continues to be labile.Con tinue venlafaxin e 75 mg qd, aripiprazo le 10 mg qd and hydroxyzin e 50 mg qid prn.Avoid benzos.Mon itor mood.Consu lt psych prn History of cervical discectomy 6892292094 0933148 Z98.890 As above. Retention of urine 68707 4002 R33.8 Apparently long standing.W as self cathing prior to stroke, now with chronic covarrubias, last changed on 04/04Contin ue covarrubias care and monthly changesWil l get U/A and C&S as above. Gastroesop hageal reflux disease 755150319 K21.9 No current sxs.Contin ue famotidine 40 mg qdMonitor for GI sxs. [id number] ATIF MILLER NP [address] [address] 04/20/2024 11:26:08 04/25/2024 09:54:45 Hypertensive emergency [id number] 46647 I16.1 Resolved inpt. Has had recurrent issues [...] but appears this was not done.Added HCTZ 04/18, hold for SBP<110Con tinue lisinopril 40 mg qd.Avoid BB due to bradycardi a.Continue to monitor BP and labs closely Essential hypertension 39806392 I10 As above. Leukocytosis 370046033 D 72.828 Trending up since admission, much better today (11.3)U/A and C&S ordered 04/14, finally obtained 04/19, positive UA, C&S prelim. >100K E. Coli.Plan -start Keflex 500 mg qid x 7 days plus probiotic. CBC, BMP i tor VSOf note, is completing steroid taper. Headache 40329917 R51.9 With hx of migraines, but recent HAs due to hypertensi ve emergencie s.Monitor for sxs. Chronic pa in following spinal surgery 3746795220 7102 G89.28 Improving slowly in this woman [...] of hemorrhagic cerebrovascular accident with residual deficit 4895349144 60938 I61.1 S/P hemorrhagi c CVA in 01/2024.Con tinue PT/OT as above.Cont inue atorvastat in 20 mg qd.Keep SBP <160Monito r for new neuro sxs. Anxiety 21258197 F41.1 Mood continues to be labile.Con tinue venlafaxin e 75 mg qd, aripiprazo le 10 mg qd and hydroxyzin e 50 mg qid prn.Avoid benzos.Mon itor mood.Consu lt psych prn History of cervical discectomy 7129708238 5340259 Z98.890 As above. Retention of urine 47129 4002 R33.8 Apparently long standing.W as self cathing prior to stroke, now with chronic covarrubias, last changed on 04/04Contin ue covarrubias care and monthly changesTre ating UTI as above. Gastroesop hageal reflux disease 500226194 K21.9 No current sxs.Contin ue famotidine 40 mg qdMonitor for GI sxs. [id number] Kyleigh Fritz, [facility] [address] [place] [address] 04/24/2024 13:06:36 04/27/2024 08:55:22 Hypertensive emergency 5888607886 51545 I16.1 Resolved inpt.noteH as had recurrent issues with labile BP including other episodes of hypertensi ve emergency, but then has had soft BPs and BP meds were held or d/c'd. Remains labile here, but improving in generalcon tHCTZ 25 mg po daily, hold for SBP<110lis inopril 40 mg qd.Avoid BB due to bradycardi a.Continue to monitor BP and labs closely Essential hypertension 44147496 I10 As above.Lorena ins labile here, but improving in generalcon tHCTZ 25 mg po daily, hold for SBP<110lis inopril 40 mg qd.Avoid BB due to bradycardi a.Continue to monitor BP and labs closely Leukocytosis 371326441 D 72.828 Trending down now.see above UTICBC, BMP tor VSOf note, is completing steroid taper. Chronic pa in following spinal surgery 4546272481 7102 G89.28 Improving however, still requiring meds [...] of hemorrhagic cerebrovascular accident with residual deficit 7194486183 68088 I61.1 S/P hemorrhagi c CVA in 01/2024.has had chronic covarrubias since stroke and reports attempted removal several times but is likely chronicCon tinue PT/OT as above.Cont inue atorvastat in 20 mg qd.Keep SBP <160Monito r for new neuro sxs. Anxiety 79986536 F41.1 Mood continues to be labile.Con tinuevenla faxine 75 mg qd, aripiprazo le 10 mg qd and 04/24 hydroxyzin e 50 mg qid and add 50 mg po prn q 24Avoid benzos.Mon itor mood.Consu lt psych prn History of cervical discectomy 8092827657 0442938 Z98.890 As above. Retention of urine 90314 4002 R33.8 Apparently long standing.W as self cathing prior to stroke, now with chronic covarrubias, last changed on 04/04Contin ue covarrubias care and monthly changesTre ating UTI as above. Gastroesop hageal reflux disease 589577048 K21.9 No current sxs.Contin uefamotidi ne 40 mg qdMonitor for GI sxs. Urinary tr act infectious disease 84309138 N39.0 Urine culture results show >100,000 e coli ESBL and gram neg rods pseudomona s.esbl precaution sShe was recently started on keflex 04/21-04/28. Due to resistant esbl and multi-orga nisms will04/24 dc keflex and cont probiotic start levaquin 750 mg po daily x 5 daysaugmen tin 875mg/125 mg po bid x 10 days as these are susceptibl e on culture.mo nitor [id number] [facility] [address] [place] [address] 04/25/2024 10:45:23 04/27/2024 09:53:26 Urinary tract infectious disease 87823520 N39.0 Urine cx. >100,000 e coli ESBL and 50-99K Pseudomona sesbl precaution sKeflex stopped, now on levaquin 750 mg qd x 5d and Augmentin 875 mg bid x 10 d plus probiotic. CBC improvedCl inically stableMain tain fluidsTren d VS, sx. labs Leukocytosis 547734601 D 72.828 Trending down - WNRTreatin g for UTIMonitor VS, trend labsOf note, completed steroid taper. Anxiety 70379386 F41.1 Mood continues to be labile.Con tinue:Venl afaxine 75 mg qdAripipra zole 10 mg qdHydroxyz ine 50 mg qid with recent addition of 50 mg qd prnAvoid benzos.Mon itor mood and behaviorsC onsult psych prn Hypertensi ve emergency 5117195857 07462 I16.1 Hx. of labile BP with significan t highsMeds adjusted.R emains labile here, but improving in generalcon tinue:HCTZ 25 mg qd, hold for SBP<110lis inopril 40 mg qd Avoid BB due to bradycardi a.Continue to monitor BP and labs closely Essential hypertension 80197755 I10 As above.Lorena ins labile here, but improving in generalcon tHCTZ 25 mg po daily, hold for SBP<110lis inopril 40 mg qd. Avoid BB due to bradycardi a.Continue to monitor BP and labs closely Chronic pa in following spinal surgery 9687876867 7102 G89.28 Improving in general, however, still [...] of hemorrhagic cerebrovascular accident with residual deficit 8116404609 81744 I61.1 S/P hemorrhagi c CVA in 01/2024.has had chronic covarrubias since stroke and reports attempted removal several times but is likely chronicCon tinue PT/OT as above.Cont inue atorvastat in 20 mg qd.Keep SBP <160Monito r for new neuro sxs. History of cervical discectomy 6099716934 7323963 Z98.890 As above. Retention of urine 80526 4002 R33.8 Apparently long standing.W as self cathing prior to stroke, now with chronic covarrubias, last changed on 04/04Contin ue covarrubias care and monthly changesTre ating UTI as above. Gastroesop hageal reflux disease 766050366 K21.9 No current sxs.Contin uefamotidi ne 40 mg qdMonitor for GI sxs. [id number] Kyleigh Fritz NP [facility] [address] [address] 04/27/2024 09:12:38 05/03/2024 16:01:01 Chest pain 52990950 R07.9 call 911 and send to ER for acute chest pain [id number] Kyleigh Fritz NP [facility] [address] [address] 04/28/2024 16:02:42 05/03/2024 16:31:55 Urinary tract infectious disease 36165086 N39.0 Urine cx. >100,000 e coli ESBL and 50-99K Pseudomona sesbl precaution sKeflex stopped, now on levaquin 750 mg qd x 5d and Augmentin 875 mg bid x 10 d plus probiotic. CBC improvedCl inically stableMain tain fluidsTren d VS, sx. labs Leukocytosis 828812982 D 72.828 resolvedTr eating for UTIMonitor VS, trend labsOf note, completed steroid taper. Anxiety 84255414 F41.1 Mood continues to be labile.6/ 1 start buspar 10 mg po bid per psych recContinu e:Venlafax ine 75 mg qdAripipra zole 10 mg qdHydroxyz ine 50 mg qid with recent addition of 50 mg qd prnAvoid benzos.Mon itor mood and behaviorsC onsult psych prn Hypertensi ve emergency 0076869579 78544 I16.1 resolvedbp stable x last three dayscontin ue:HCTZ 25 mg qd, hold for SBP<110lis inopril 40 mg qd Avoid BB due to bradycardi a.Continue to monitor BP and labs closely Essential hypertension 35117813 I10 As above.stab le for last few daysHCTZ 25 mg po daily, hold for SBP<110lis inopril 40 mg qd.Avoid BB due to bradycardi a.Continue to monitor BP and labs closely Chronic pa in following spinal surgery 5637309488 7102 G89.28 Improving in general, however, still [...] of hemorrhagic cerebrovascular accident with residual deficit 9945666563 11594 I61.1 S/P hemorrhagi c CVA in 01/2024.has had chronic covarrubias since stroke and reports attempted removal several times but is likely chronicCon tinuePT/OT as above.ator vastatin 20 mg qd.Keep SBP <160Monito r for new neuro sxs. History of cervical discectomy 9193341389 2533191 Z98.890 As above. Retention of urine 99167 4002 R33.8 Apparently long standing. with recent utiWas self cathing prior to stroke, now with chronic covarrubias, last changed on 04/04Contin ue covarrubias care and monthly changesTre ating UTI as above. [id number] Kyleigh Fritz NP [address] [address] 05/04/2024 13:57:33 05/09/2024 10:01:55 Anxiety 18953652 F41.1 Mood continues to be labile with anxiety. start buspar 10 mg po bid per psych rec05/04 cont buspar as it is helping with anxiety and consider increasing Cont:Venla faxine 75 mg qdAripipra zole 10 mg qdHydroxyz ine 50 mg qid with recent addition of 50 mg qd prnAvoid benzos.Mon itor mood and behaviorsC onsult psych prn Urinary tr act infectious disease 85287620 N39.0 Urine cx. >100,000 e coli ESBL and 50-99K Pseudomona sesbl precaution sKeflex stopped, now on levaquin 750 mg qd x 5d and Augmentin 875 mg bid x 10 d plus probiotic. to finish todayClini pebbles stableMain tain fluidsTren d VS, sx. labs Essential hypertension 81935799 I10 stable and 132/82 todayHCTZ 25 mg po daily, hold for SBP<110lis inopril 40 mg qd.was on norvasc at home but dc'd in hospital for low bpAvoid BB due to bradycardi a.Continue to monitor BP and labs closely and for need to restart meds Chronic pa in following spinal surgery 4916260519 7102 G89.28 Improving in general, however, still requiring pain medication meds 1-2 times per day(possib le hx of substance abuse, likely has low pain threshold) . Had follow up with Neurosurge ry appt, still awaiting note Cont:APAP 975 mg [...] of hemorrhagic cerebrovascular accident with residual deficit 6309616787 05106 I61.1 S/P hemorrhagi c CVA in 01/2024.has had chronic covarrubias since stroke and reports attempted removal several times but is likely chronicCon tPT/OT as above.ator vastatin 20 mg qd.Keep SBP <160Monito r for new neuro sxs. History of cervical discectomy 5803351553 0952997 Z98.890 As above. Retention of urine 02520 4002 R33.8 Apparently long standing. with recent utiWas self cathing prior to stroke, now with chronic covarrubias, last changed on 04/04Contin ue covarrubias care and monthly changesTre ating UTI as above almost resolved [id number] Kyleigh Fritz NP [address] [address] 05/05/2024 11:08:22 05/09/2024 10:26:57 Anxiety 01553348 F41.1 Mood continues to be labile with anxiety. start buspar 10 mg po bid per psych rec05/05 cont buspar as it is helping with anxiety and consider increasing Cont:Venla faxine 75 mg qdAripipra zole 10 mg qdHydroxyz ine 50 mg qid with recent addition of 50 mg qd prnAvoid benzos.see is following with psychother jasvir also hereMonito r mood and behaviorsC onsult psych prn Essential hypertension 58367369 I10 stable with labile bps at timescontH CTZ 25 mg po daily, hold for SBP<110lis inopril 40 mg qd.was on norvasc at home but dc'd in hospital for low bpAvoid BB due to bradycardi a.Continue to monitor BP and labs closely and for need to restart meds Chronic pa in following spinal surgery 3848176139 7102 G89.28 Improving in general, however, still [...] precaution s.Monitor for safety. and pain control.Celeste noemí has a fu with neurosurge ry on jun 21 at 3pm Urinary tr act infectious disease 38864159 N39.0 denies any symptomsUr ine cx. >100,000 e coli ESBL and 50-99K Pseudomona sesbl precaution sKeflex stopped, now on levaquin 750 mg qd x 5d and Augmentin 875 mg bid x 10 d plus probiotic. completed on 05/05Clinic ally stableMain tain fluidsTren d VS, sx. labs History of hemorrhagic cerebrovascular accident with residual deficit [id number] I61.1 S/P hemorrhagi c CVA in 01/2024.has had chronic covarrubias since stroke and reports attempted removal several times but is likely chronicCon tPT/OT as above.ator vastatin 20 mg qd.Keep SBP <160Monito r for new neuro sxs. History of cervical discectomy [id number] Z98.890 As above. Retention of urine 03544 4002 R33.8 Apparently long standing. with recent utiWas self cathing prior to stroke, now with chronic covarrubias, last changed on 04/04nsg to change monthlyCon tinue covarrubias care and monthly changesTre ating UTI as above almost resolved Hypertensi ve emergency [id number] I16.1 resolved, ? related to not getting dose of lisinopril per dc summarycon tinue:HCTZ 25 mg qd, hold for SBP<110lis inopril 40 mg qdAvoid BB due to bradycardi a.Continue to monitor BP and labs closely Chest pain [id number] R07. 9 she was sent to ER for chest pain that was ruled out and sent back to [facility] Gastroesop hageal reflux disease [id number] K21.9 No current sxs.Contin uefamotidi ne 40 mg qdMonitor for GI sxs. Headache [id number] R51.9 With hx of migraines, but recent HAs due to hypertensi ve emergencie s.Monitor for sxs. [id number] LILLIAN GOMEZ [address] [address] 05/08/2024 10:49:58 05/18/2024 09:55:18 Chronic pain following spinal surgery [id number] 7102 G89.28 Improving in general, however, still [...] ry on jun 21 at 3pm Anxiety [id number] F41.1 Mood continues to be labile with anxiety.co ntinue buspar 10 mg po bid per psych reccont buspar as it is helping with anxiety and consider increasing Cont:Venla faxine 75 mg qdAripipra zole 10 mg qdHydroxyz ine 50 mg qid with recent addition of 50 mg qd prnAvoid benzos. Essential hypertension [id number] I10 contHCTZ 25 mg po daily, hold for SBP<110lis inopril 40 mg qd.was on norvasc at home but dc'd in hospital for low bpAvoid BB due to bradycardi a.Continue to monitor BP and labs closely and for need to restart meds Urinary tr act infectious disease [id number] N39.0 denies any symptomsUr ine cx. >100,000 e coli ESBL and 50-99K Pseudomona sesbl precaution scompleted abx on 05/05Clinic ally stableMain tain fluidsTren d VS, sx. labs History of hemorrhagic cerebrovascular accident with residual deficit [id number] 46776 I61.1 S/P hemorrhagi c CVA in 01/2024.has had chronic covarrubias since stroke and reports attempted removal several times but is likely chronicCon tatorvasta tin 20 mg qd.Keep SBP <160Monito r for new neuro sxs. History of cervical discectomy [id number] Z98.890 As above. Retention of urine 75470 4002 R33.8 Apparently long standing. with recent utiWas self cathing prior to stroke, now with chronic covarrubias, last changed on 04/04nsg to change monthlyCon tinue covarrubias care and monthly changesTre ating UTI as above almost resolvedfo olow up out patient with urology- patient will make appt. Gastroesop hageal reflux disease [id number] K21.9 No current sxs.Contin uefamotidi ne 40 mg qdMonitor for GI sxs. Health Concerns Section Related Observation LastModified by Organization Detai ls LastModified Time None Recorded Concern Status LastModified by Organization Details LastModified Time None Recorded Advance Directives Directive Y: Payers Insurance Date Sequence Insurance Name Policy Number Policy Alanis Covered Member ID Alanis Member ID Guarantor Name 05/08/2024 1 [place] [id number] Cheryl Garcia [id number] Cheryl Garcia Notes Date Note Type Note Provider Name and Address Organization Details Recorded Time 04/27/2024 text/html Cheryl is seen today for an acute visit. Her PMH includes HTN-very labile, HLD, migraines, anxiety/depression, chronic urinary retention with indwelling covarrubias, and s/p CVA right basal ganglia, hemorrhagic stroke in 01/2024. She is a 58 yo woman who is here for rehab after a series of hospitalizations and rehab stays since 02/03/24 when she was admitted to [facility] [place] an acute [place]. [...] my health and want to go to [facility] . 911 called and pt seen to ER promptly. Of note: She is currently on antibiotics for UTI until 05/04, due to final C&S results (>100K E. Coli ESBL and 50-99K Pseudomonas) change required, now on levaquin and Augmentin to cover these orgs. Chronic covarrubias remains in place, qs yellow urine. Kyleigh Fritz NP [address], [address], [place], [address], [facility] [facility] 04/27/2024 10:02:54 04/28/2024 text/html Cheryl is seen today for an acute visit. Her PMH includes HTN-very labile, HLD, migraines, anxiety/depression, chronic urinary retention with indwelling covarrubias, and s/p CVA right basal ganglia hemorrhagic stroke in 01/2024. She is a 58 yo woman who is here for rehab after a series of hospitalizations and rehab stays since 02/03/24 when she was admitted to [facility] for an acute CVA and sp spinal surgery fusion. She is seen today by human resources psychologist recommending buspar 10 mg po bid for her anxiety. Due to recurrent anxiety will agree and monitor closely as she seems to be med seeking at times by human resources psychologist.She remains on antibiotics for UTI, due to [...] is okay and falls back to sleep traveling nurse states she had a full conversation with him a few minutes prior and not lethargic and appropriate. No other concerns per nursing. Kyleigh Fritz, DIAMOND [address], [address], [place], [address], [facility] [employer] [facility] 04/28/2024 16:12:43 05/04/2024 text/html Cheryl is seen today for an acute visit. Her PMH includes HTN-very labile, HLD, migraines, anxiety/depression, chronic urinary retention with indwelling covarrubias, and s/p CVA right basal ganglia hemorrhagic stroke in 01/2024. Cheryl is a 58 yo woman who is here for rehab after a series of hospitalizations and rehab stays since 02/03/24 when she was admitted to [facility] for an acute CVA and sp spinal surgery fusion here at [facility] for acute rehab. She remains on [...] with anxiety and flights of ideas. Kyleigh Fritz, DIAMOND [address], [address], [place], [address], [facility] [employer] 05/04/2024 14:58:17 05/05/2024 text/html Cheryl is seen today for a 30 day routine rounding visit. Her PMH includes HTN-very labile, HLD, m igraines, anxiety/depression, chronic urinary retention with indwelling covarrubias, and s/p CVA right basal ganglia hemorrhagic stroke in 01/2024, and neck surgery c 5-c7 ADCF for C5-C6 central stenosis and C6-c-7 left foraminal stenosis on 03/20/24 Cheryl is a 58 yo female with hx above initially presented to [facility] ER from rehab with co neck pain radiating to her right upper extremity with paresthesias felt per neurosurgery symptoms from postoperative nerve root inflammation discharged to rehab on 04/04 and returned to [facility] ER on 04/05-04/12 for [...] capsule thalmic hemorrhage Since at [facility]: On 04/27 she was sent to Er for chest pain and ruled out for acute concern and sent back to rehab shortly after. She was seen by human resources psychologist on 04/28 and started on buspar 10 [...] is sitting in the activity room in [facility]. She dose have a mild outburst at another resident to get away as she felt he was too close and then she settles down. Residents were at that time. She denies any other concerns today. Her weight is 191 lbs which is approx to 190 lbs on admission. DOMENICO full code, signed 04/13/24 Kyleigh Fritz NP [address], [address], [place], [address], [facility] - [employer] 05/05/2024 11:33:54 05/08/2024 text/html ROS as noted in the HPI Cheryl is a pleasant 58 yr old yr female seen today for discharge. Her PMH includes HTN-very labile, HLD, m igraines, anxiety/depression, chronic urinary retention with indwelling covarrubias, and s/p CVA right basal ganglia hemorrhagic stroke in 01/2024, and neck surgery c 5-c7 ADCF for C5-C6 central stenosis and C6-c-7 left foraminal stenosis on 03/20/24 Cheryl is a 58 yo female with hx above initially presented to [facility] ER from rehab with co neck pain radiating to her right upper extremity with paresthesias felt per neurosurgery symptoms from postoperative nerve root inflammation discharged to rehab on 04/04 and returned to [facility] ER on 04/05-04/12 for [...] capsule thalmic hemorrhage Since at [facility]: On 04/27 she was sent to Er for chest pain and ruled out for acute concern and sent back to rehab shortly after. She was seen by human resources psychologist on 04/28 and started on buspar 10 [...] be receiving home health care service with [facility] and referral was also made to [facility] for additional homemaking, personal care and SOUS CHEF services. Lux has a follow up appointment with her PCP on 05/23/24. LILLIAN GOMEZ [address], [address], [place], [address], [facility] - [facility] 05/08/2024 13:35:11 OBGyn Episode No OBEpisode recorded.
[2025-05-30 16:39] LABS: MANUAL DIFF FLAG NO
[2025-05-30 16:40] LABS: Hematocrit 42.8 % (37.0-47.0); Hemoglobin 14.3 g/dl (12.0-16.0); Imm Gran Pct Auto 0.2 % (0.0-0.4); Mean Corpuscular HGB Conc 33.4 g/dl (31.0-35.0); Mean Corpuscular Hemoglobin 27.9 pg (27.0-33.0); Mean Corpuscular Volume 83.4 fL (80.0-98.0); NRBC Pct Auto 0.0 /100WBC (0.0-0.2); Platelet Count 277 X10*3/uL (160-400); Red Blood Count 5.13 X10*6/uL (4.20-5.50); White Blood Count 6.2 X10*3/uL (4.8-10.8)
[2025-05-30 16:41] LABS: Imm Gran Abs Auto 0.01 X10*3/uL (0.00-0.03); Lymphocytes Absolute Auto 2.5 X10*3/uL (1.2-4.9); NRBC Abs Auto 0.000 X10*3/uL (0.0-0.012)
[2025-05-30 16:55] VITALS: BP 143/76; PULSE 66; RESP 16; TEMP 36.8; O2SAT 98
[2025-05-30 16:55] LABS: Alanine Aminotransferase 13 U/L (0-31); Albumin Level 4.0 g/dL (3.5-5.0); Alkaline Phosphatase 63 U/L (39-117); Anion Gap 9 (12-20); Aspartate Amino Transferase 16 U/L (5-31); Blood Urea Nitrogen 18 mg/dL (9-16); Calcium 9.0 mg/dL (8.4-10.2); Carbon Dioxide 25 mmol/L (22-29); Chloride 113 mmol/L (96-108); Creatinine Clr Calc Pharmacy 85.1; Estimated Glomerular Filt Rate > 60; Potassium 4.1 mmol/L (3.3-5.1); Sodium 143 mmol/L (135-145); Total Protein 6.5 g/dL (6.5-8.0)
--- NOTE | 2025-05-30 17:38 | ED.FEMALEGU ---
HPI - Female Genitourinary General Chief complaint: Urogenital-Female Stated complaint: From home, blood in catheter Time Seen by Provider: 05/30/25 17:27 Source: patient Limitations: no limitations History of Present Illness ED Provider: HPI Narrative: Patient with chronic indwelling Quinonez catheter for last 1 year after CVA comes here as last him and catheter was changed 1 week ago since then she not feeling comfortable and having pain in his suprapubic area which she never used to have and patient wants to remove the catheter patient's son magno loja for chronic UTI Related Data Home Medications ?Medication ?Instructions ?Recorded ?Confirmed fluticasone propionate 50 2 spray intranasal DAILY PRN 11/18/21 11/23/24 mcg/actuation nasal Allergy Symptoms spray,suspension aspirin 81 mg tablet,delayed 81 mg PO DAILY 12/07/23 11/23/24 release (Adult Aspirin Regimen) gabapentin 300 mg capsule 900 mg PO TID 06/11/24 11/23/24 acetaminophen 650 mg 650 mg PO Q12H PRN pain 07/20/24 11/23/24 tablet,extended release albuterol sulfate 90 mcg/actuation 2 puff inhalation Q4-6H PRN 07/20/24 11/23/24 aerosol inhaler Shortness Of Breath Or Wheezing baclofen 10 mg tablet 10 mg PO TID PRN muscle spasm 07/20/24 11/23/24 buspirone 10 mg tablet 10 mg BID 07/20/24 11/23/24 cholecalciferol (vitamin D3) 50 50 mcg DAILY 07/20/24 11/23/24 mcg (2,000 unit) capsule hydroxyzine HCl 50 mg tablet 50 mg PO Q6H PRN anxiety 07/20/24 11/23/24 venlafaxine 75 mg capsule,extended 75 mg PO DAILY 07/20/24 11/23/24 release 24 hr aripiprazole 2 mg tablet 2 mg PO DAILY 11/23/24 11/23/24 lisinopril 10 mg tablet 10 mg PO DAILY 11/23/24 11/23/24 Previous Rx's ?Medication ?Instructions ?Recorded nystatin 100,000 unit/gram topical 1 appl topical DAILY #15 grams 06/30/24 cream methimazole 10 mg tablet 10 mg PO DAILY #30 tabs 07/23/24 propranolol 10 mg tablet 10 mg PO TID #270 tabs 07/23/24 ascorbic acid (vitamin C) 1,000 mg 1,000 mg PO DAILY 90 days #90 tabs 11/16/24 tablet dextromethorphan-guaifenesin 10 10 ml PO Q6H PRN Cough #237 mL 11/25/24 mg-100 mg/5 mL oral syrup ipratropium 0.5 mg-albuterol 3 mg 3 ml inhalation RQ4H WHILE AWAKE 11/25/24 (2.5 mg base)/3 mL nebulization PRN Shortness Of Breath/Wheezing soln #90 mL methenamine hippurate 1 gram tablet 1 g PO DAILY 90 days #90 tabs 12/14/24 levofloxacin 250 mg tablet 250 mg PO Q24H 7 days #7 tabs 03/22/25 oxycodone 5 mg tablet 5 mg PO Q6H PRN pain #10 tabs 03/22/25 levofloxacin 500 mg tablet 500 mg PO DAILY #5 tabs 03/26/25 loperamide 2 mg capsule 2 mg PO Q6H PRN loose stool #10 04/02/25 caps ondansetron 4 mg disintegrating 4 mg PO Q8H PRN nausea and 04/02/25 tablet vomiting #10 tabs sulfamethoxazole 800 1 tab PO BID #20 tabs 04/02/25 mg-trimethoprim 160 mg tablet sulfamethoxazole 800 1 tab PO BID 10 days #20 tabs 04/28/25 mg-trimethoprim 160 mg tablet (Bactrim DS) Allergies Allergy/AdvReac Type Severity Reaction Status Date / Time No Known Allergies Allergy Verified 05/30/25 15:18 Review of Systems Review of Systems: Yes all other systems are reviewed and are negative PMF Past Medical History Medical History Hyperthyroidism Hemiparesis affecting left side as late effect of stroke Hypotonic bladder H/O urinary retention GERD (gastroesophageal reflux disease) Hyperlipidemia HTN (hypertension) PFO (patent foramen ovale) Patellofemoral arthrosis Knee derangement Surgical History History of surgery Social History Social History Household Members: Other Household Members Other:: LIVE-IN PIERCING SPECIALIST Housing: Apartment Do you presently have visiting nurse or other home services: Yes (31/05 PIERCING SPECIALIST THAT LIVES WITH PT) Alcohol intake: current Alcohol intake frequency: does not drink Alcohol type: beer Patient Tobacco Use Status: Never used Tobacco Smoked in Last 30 Days: No Use of substances other than those prescribed or required for medical reasons: No Substance Use Type: Marijuana Advance Directives: Yes Advance Directives on File: Yes Advance Directives Date on File: 05/30/25 service: No Current occupational status: retired and disabled 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 Oriented X3. No acute distress. Eyes: no pallor or icterus ENT: Pharynx normal Oral Mucosa moist tympanic membrane intact no erythema, Neck: Normal inspection. Neck supple. CVS: Normal heart rate and rhythm. Pulses normal. Respiratory: No respiratory distress. Equal air entry bilateral, no wheezing/rales/rhonchi Abd: soft, not tender Quinonez catheter in place and draining urine Skin: Skin warm and dry. Normal skin color. Normal skin turgor. Extremities: No lower extremity edema, no calf tenderness Neuro: Oriented X 3. Residual right-sided weakness Medical Decision Making Medical Decision Making MDM Narrative: Patient with Quinonez catheter in place complaining of pain at the site of Quinonez catheter which was never before will change the Quinonez catheter Lab Data 05/30/25 16:34 05/30/25 16:34 Labs: Lab Results 05/30/25 05/30/25 Range/Units 16:34 19:22 WBC 6.2 (4.8-10.8) X10*3/uL RBC 5.13 (4.20-5.50) X10*6/uL Hgb 14.3 (12.0-16.0) g/dl Hct 42.8 (37.0-47.0) % MCV 83.4 (80.0-98.0) fL MCH 27.9 (27.0-33.0) pg MCHC 33.4 (31.0-35.0) g/dl RDW 13.6 (11.0-16.0) % Plt Count 277 (160-400) X10*3/uL MPV 9.6 (9.4-12.3) fL Immature Gran % (Auto) 0.2 (0.0-0.4) % Neut % (Auto) 47.6 (45-73) % Lymph % (Auto) 39.6 (20-40) % Blaine % (Auto) 7.1 (2-11) % Eos % (Auto) 4.7 H (0-4) % Baso % (Auto) 0.8 (0-2) % Lymph # (Auto) 2.5 (1.2-4.9) X10*3/uL Blaine # (Auto) 0.4 (0.1-1.2) X10*3/uL Eos # (Auto) 0.3 (0.0-0.4) X10*3/uL Baso # (Auto) 0.1 (0.0-0.2) X10*3/uL Abs Immat Gran (auto) 0.01 (0.00-0.03) X10*3/uL Absolute Neuts (auto) 3.0 (2.0-8.3) x10*3/uL Absolute Nucleated RBC 0.000 (0.0-0.012) X10*3/uL Nucleated RBC % (auto) 0.0 (0.0-0.2) /100WBC Sodium 143 (135-145) mmol/L Potassium 4.1 (3.3-5.1) mmol/L Chloride 113 H (96-108) mmol/L Carbon Dioxide 25 (22-29) mmol/L Anion Gap 9 L (12-20) BUN 18 H (9-16) mg/dL Creatinine 0.73 (0.5-1.4) mg/dL Estim Creat Clear Calc 85.1 Estimated GFR > 60 Random Glucose 101 (60-115) mg/dL Calcium 9.0 (8.4-10.2) mg/dL Total Bilirubin 0.2 (0.0-1.0) mg/dL AST 16 (5-31) U/L ALT 13 (0-31) U/L Alkaline Phosphatase 63 (39-117) U/L Total Protein 6.5 (6.5-8.0) g/dL Albumin 4.0 (3.5-5.0) g/dL Urine Color Yellow Urine Appearance Cloudy Urine pH 6.0 (5.0-9.0) Ur Specific [place] 1.025 (1.005-1.025) Urine Protein 300 (3+) H (Neg-Trace) mg/dL Urine Glucose (UA) Negative (Negative) mg/dL Urine Ketones Negative (Negative) mg/dL Urine Blood Large (3+) H (Negative) Urine Nitrite Negative (Negative) Ur Leukocyte Esterase Moderate (2+) H (Negative) Urine RBC >20 H (0-2) /HPF Urine WBC >50 H (0-5) /HPF Ur Squamous Epith Cells 6-10 (0-2) /HPF Calcium Oxalate Crystal Present Urine Bacteria 4+ (None Seen) Hyaline Casts 11-20 (0-2) /LPF Discharge Plan Discharge Clinical Impression: Catheter-associated urinary tract infection Qualifiers: Indwelling urinary catheter type: indwelling urethral catheter Encounter type: initial encounter Qualified Code(s): T83.511A - Infection and inflammatory reaction due to indwelling urethral catheter, initial encounter Patient Disposition: Home, Self-Care Instructions: Quinonez Catheter Care Additional Instructions: Care as advised Continue take your medication for chronic UTI Prescriptions: No Action ascorbic acid (vitamin C) 1,000 mg tablet 1,000 mg PO DAILY 90 Days Qty: 90 1RF nystatin 100,000 unit/gram cream 1 appl topical DAILY Qty: 15 0RF venlafaxine 75 mg capsule,extended release 24hr 75 mg PO DAILY hydroxyzine HCl 50 mg tablet 50 mg PO Q6H PRN (Reason: anxiety) acetaminophen 650 mg tablet extended release 650 mg PO Q12H PRN (Reason: pain) buspirone 10 mg tablet 10 mg BID cholecalciferol (vitamin D3) 50 mcg (2,000 unit) capsule 50 mcg DAILY baclofen 10 mg tablet 10 mg PO TID PRN (Reason: muscle spasm) albuterol sulfate 90 mcg/actuation Hfa Aerosol Inhaler 2 puff INHALATION Q4-6H PRN (Reason: Shortness Of Breath Or Wheezing) propranolol 10 mg Tablet 10 mg PO TID Qty: 270 0RF Protocol: Hold for SBP/HR < HOLD for SBP < : 90 HOLD for HR < : 60 methimazole 10 mg Tablet 10 mg PO DAILY Qty: 30 0RF lisinopril 10 mg tablet 10 mg PO DAILY aripiprazole 2 mg tablet 2 mg PO DAILY dextromethorphan-guaifenesin 10-100 mg/5 mL Syrup 10 ml PO Q6H PRN (Reason: Cough) Qty: 237 0RF ipratropium-albuterol 0.5 mg-3 mg(2.5 mg base)/3 mL Solution For Nebulization 3 ml inhalation RQ4H WHILE AWAKE PRN (Reason: Shortness Of Breath/Wheezing) Qty: 90 0RF levofloxacin 500 mg tablet 500 mg PO DAILY Qty: 5 0RF sulfamethoxazole-trimethoprim [Bactrim DS] 800-160 mg tablet 1 tab PO BID 10 Days Qty: 20 0RF gabapentin 300 mg capsule 900 mg PO TID oxycodone 5 mg tablet 5 mg PO Q6H PRN (Reason: pain) Qty: 10 0RF Rx Instructions: Patient may request partial refill; Partial Fill upon patient request. levofloxacin 250 mg tablet 250 mg PO Q24H 7 Days Qty: 7 0RF sulfamethoxazole-trimethoprim 800-160 mg tablet 1 tab PO BID Qty: 20 0RF ondansetron 4 mg tablet,disintegrating 4 mg PO Q8H PRN (Reason: nausea and vomiting) Qty: 10 0RF loperamide 2 mg capsule 2 mg PO Q6H PRN (Reason: loose stool) Qty: 10 0RF fluticasone propionate 50 mcg/actuation spray,suspension 2 spray intranasal DAILY PRN (Reason: Allergy Symptoms) aspirin [Adult Aspirin Regimen] 81 mg tablet,delayed release (DR/EC) 81 mg PO DAILY methenamine hippurate 1 gram tablet 1 g PO DAILY 90 Days Qty: 90 1RF Interventions: ED Discharge Assessment Last Done: 05/30/25 20:40 Discharge Date/Time: 05/30/25 20:43 Print Language: Khmer
[2025-05-30 19:30] LABS: Appearance Urine Cloudy; Glucose Urine UA Negative (Negative); PH 6.0 (5.0-9.0); Specific Gravity - Urine 1.025 (1.005-1.025); UMIC TRIGGER UACC YES
[2025-05-30 19:53] VITALS: BP 157/83; PULSE 68; RESP 16; TEMP 36.6; O2SAT 96
[2025-05-30 19:57] LABS: UACC Culture Trigger YES
[2025-05-30 20:40] VITALS: BP 157/83; PULSE 68; RESP 16; TEMP 36.6; O2SAT 96
== END 2025-05-30 20:43 | disposition home or self-care (01) ==
PROVIDERS: Emergency Provider Internal Medicine; PCP Family Medicine
DX: N39.0 Urinary tract infection, site not specified (principal); T83.511A Infection and inflammatory reaction due to indwelling urethral catheter, initial encounter; T83.518A Infection and inflammatory reaction due to other urinary catheter, initial encounter; Y73.8 Miscellaneous gastroenterology and urology devices associated with adverse incidents, not elsewhere classified; Y92.89 Other specified places as the place of occurrence of the external cause; Z79.899 Other long term (current) drug therapy
CPT/HCPCS: 36415; 51702; 80053; 81001; 85025; 87086; 99283; 99284

== ENCOUNTER 2025-06-18 15:36 | Emergency (ER) | payer MEDICAID, SELFPAY ==
[2025-06-18 15:41] VITALS: PULSE 76; RESP 19; TEMP 36.4; O2SAT 96; BMI 33.3
--- OUTSIDE RECORDS SUMMARY | 2025-06-18 16:05 | XMS_ITS | Encounter Summary ---
Author Organization [employer] Address [address] [place] [address] Care Team Providers Care Manager Route Name Role Phone Aliza Paul DO Primary Care Provider [phone] Lesley Ingram Unavailable Rosi Castro RN Unavailable [phone] Rosi Castro RN Unavailable [phone] Lesley Ingram Unavailable Rocio Ingram RN Unavailable [phone] Kathrine Blank Unavailable Reason for Visit * Reason Comments Med Refill Encounter Details Date Type Department Care Team (Late st Contact Info) Description 06/06/2024 Refill [facility] [address] [place], [place] [phone] Aliza Paul DO [address] [place], [place] [phone] Chronic nonintractable headache, unspecified headache type Social [...] Care Team (Late st Contact Info) Description 07/06/2025 2:30 PM EDT Telemedicine [facility] [address] [place] [id number] Caitie Miramontes, Chuck [address] [place] [address] documented as of this encounter Visit Diagnoses Diagnosis Chronic nonintractable headache, unspecified headache type documented in this encounter Additional Health Concerns Assessment Noted Time PHQ-9 Depression Total Score: 4 03/09/20 24 9:14 AM EDT documented as of this encounter Care Teams Manager Route Relationship Specialty Start Date End Date Aliza Paul DO [address] [place] [address] PCP - General Family Medicine 02/23/12 Lesley Ingram Community Health Worker 05/17/24 Rosi Castro RN [address] [place] [address]. [place] [address] Principal [employer] 05/17/24 03/05/25 Rosi Castro, RICHARDSON [address] [facility] [address] Registered Nurse Family Medicine 04/06/25 04/10/25 Lesley Ingram 04/06/25 04/10/25 Rocio Ingram, RICHARDSON [address] [facility] [place] [address] Registered Nurse Family Medicine 04/19/25 Kathrine Blank 04/19/25 [facility] 07/27/24 05/28/25 [facility] 05/29/25 documented as of this encounter
--- OUTSIDE RECORDS SUMMARY | 2025-06-18 16:05 | XMS_ITS | Clinical Summary ---
Author Organization [facility] Address [address] [place] [phone] Phone Care Team Providers Care Communications Department Chair Name Role Phone Aliza Paul DO Primary Care Provider [phone] Social History Tobacco Use Types Packs/Day Years [...] topic Insurance MEDICAID - [place] Care Teams Communications Department Chair Relationship Specialty Start Date End Date Aliza Paul DO [address] [place], [place] PCP - General Family Medicine 10/04/24
--- NOTE | 2025-06-18 16:37 | ED.FEMALEGU ---
HPI - Female Genitourinary General Chief complaint: Urogenital-Female Stated complaint: F/C ISSUE PER EMS Time Seen by Provider: 06/18/25 16:04 History of Present Illness ED Provider: sultana HPI Narrative: 59 F with chronic covarrubias, felt it was obstructed subjectively. No fever, + sp pain. No flank pain. Related Data Home Medications ?Medication ?Instructions ?Recorded ?Confirmed fluticasone propionate 50 2 spray intranasal DAILY PRN 11/18/21 11/23/24 mcg/actuation nasal Allergy Symptoms spray,suspension aspirin 81 mg tablet,delayed 81 mg PO DAILY 12/07/23 11/23/24 release (Adult Aspirin Regimen) gabapentin 300 mg capsule 900 mg PO TID 06/11/24 11/23/24 acetaminophen 650 mg 650 mg PO Q12H PRN pain 07/20/24 11/23/24 tablet,extended release albuterol sulfate 90 mcg/actuation 2 puff inhalation Q4-6H PRN 07/20/24 11/23/24 aerosol inhaler Shortness Of Breath Or Wheezing baclofen 10 mg tablet 10 mg PO TID PRN muscle spasm 07/20/24 11/23/24 buspirone 10 mg tablet 10 mg BID 07/20/24 11/23/24 cholecalciferol (vitamin D3) 50 50 mcg DAILY 07/20/24 11/23/24 mcg (2,000 unit) capsule hydroxyzine HCl 50 mg tablet 50 mg PO Q6H PRN anxiety 07/20/24 11/23/24 venlafaxine 75 mg capsule,extended 75 mg PO DAILY 07/20/24 11/23/24 release 24 hr aripiprazole 2 mg tablet 2 mg PO DAILY 11/23/24 11/23/24 lisinopril 10 mg tablet 10 mg PO DAILY 11/23/24 11/23/24 Previous Rx's ?Medication ?Instructions ?Recorded nystatin 100,000 unit/gram topical 1 appl topical DAILY #15 grams 06/30/24 cream methimazole 10 mg tablet 10 mg PO DAILY #30 tabs 07/23/24 propranolol 10 mg tablet 10 mg PO TID #270 tabs 07/23/24 ascorbic acid (vitamin C) 1,000 mg 1,000 mg PO DAILY 90 days #90 tabs 11/16/24 tablet dextromethorphan-guaifenesin 10 10 ml PO Q6H PRN Cough #237 mL 11/25/24 mg-100 mg/5 mL oral syrup ipratropium 0.5 mg-albuterol 3 mg 3 ml inhalation RQ4H WHILE AWAKE 11/25/24 (2.5 mg base)/3 mL nebulization PRN Shortness Of Breath/Wheezing soln #90 mL methenamine hippurate 1 gram tablet 1 g PO DAILY 90 days #90 tabs 12/14/24 levofloxacin 250 mg tablet 250 mg PO Q24H 7 days #7 tabs 03/22/25 oxycodone 5 mg tablet 5 mg PO Q6H PRN pain #10 tabs 03/22/25 levofloxacin 500 mg tablet 500 mg PO DAILY #5 tabs 03/26/25 loperamide 2 mg capsule 2 mg PO Q6H PRN loose stool #10 04/02/25 caps ondansetron 4 mg disintegrating 4 mg PO Q8H PRN nausea and 04/02/25 tablet vomiting #10 tabs sulfamethoxazole 800 1 tab PO BID #20 tabs 04/02/25 mg-trimethoprim 160 mg tablet sulfamethoxazole 800 1 tab PO BID 10 days #20 tabs 04/28/25 mg-trimethoprim 160 mg tablet (Bactrim DS) Allergies Allergy/AdvReac Type Severity Reaction Status Date / Time No Known Allergies Allergy Verified 06/18/25 15:47 [facility] Past Medical History Medical History Hyperthyroidism Hemiparesis affecting left side as late effect of stroke Hypotonic bladder H/O urinary retention GERD (gastroesophageal reflux disease) Hyperlipidemia HTN (hypertension) PFO (patent foramen ovale) Patellofemoral arthrosis Knee derangement Surgical History History of surgery Social History Social History Household Members: Other Household Members Other:: [employer] Housing: Apartment Do you presently have visiting nurse or other home services: Yes (31/05 [employer] THAT LIVES WITH PT) Alcohol intake: current Alcohol intake frequency: does not drink Alcohol type: beer Patient Tobacco Use Status: Never used Tobacco Substance Use Type: Marijuana Advance Directives: Yes Advance Directives on File: Yes Advance Directives Date on File: 05/30/25 Do you have a plan to hurt others: No Plan service: No Current occupational status: retired and disabled 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 Head: Atraumatic Eyes: Anicteric, Normal conjunctiva. ENT: Moist mucosa, no pallor. ? Neck: Supple. Skin: ?No observable rash or bruising on exposed or examined skin Respiratory: Breathing comfortably, No distress.Clear to auscultation bilaterally, symmetric chest expansion, No wheeze, rales, ronchi. Cardiovascular: Regular rate and rhythm. No murmurs or rub. Well perfused periphery, warm extremities. No edema. ? Abdominal: No focal tenderness. Soft, no objective distension. No palpable masses or obvious organomegaly. ?No guarding, no rebound tenderness or other peritoneal findings. : No flank tenderness. Covarrubias Neuro: Alert. Gross movement of all extremities intact. ? Psych: Calm. Cooperative. MSK: No grossly visible deformity. Vital signs: See flowsheet Vital Signs: Vital Signs: Last Vital Signs Temp 98 F 06/18/25 17:09 Pulse 71 06/18/25 17:09 Resp 17 06/18/25 17:09 BP 167/97 H 06/18/25 17:09 Pulse Ox 98 06/18/25 17:09 O2 Del Method Room Air 06/18/25 17:09 BMI result Body Mass Index 33.3 Medications Administered Discontinued Medications Generic Name Dose Route Start Last Admin Trade Name Freq PRN Reason Stop Dose Admin Oxycodone HCl 5 mg 06/18/25 16:39 06/18/25 16:47 Oxycodone Hcl Immed Release 5 Mg Tablet PO 06/18/25 16:40 5 mg ONCE ONE Administration Medical Decision Making Medical Decision Making MDM Narrative: Medical Decision Makin-year-old female with stroke history comes from home for subjective urinary retention. Nurse tells me the patient was in significant distress and upon arrival asked for emergent Covarrubias exchange which was done prior to my evaluating the patient. The patient was found to have some sediment in the previous Covarrubias and after exchange had straw-colored non cloudy urine. She had relief of the mild suprapubic pain she had. No fever no chills no or any symptoms to suggest infection. Multiple previous urine culture negative recently except for March when she had a coli. Doubt current infection gait based on her examination presentation. Preliminary Favored Differential Diagnosis: Urinary retention, Covarrubias obstruction, UTI among additional considered etiologies Testing Interpreted Independently: Not Applicable Radiology or Lab testing Results Reviewed: Not Applicable Consults: Not Applicable Independent Historians/External Chart Reviews: Not Applicable Social Determinants of Health Impacting MDM/Planning: Not Applicable Lab Data Labs: Lab Results 06/18/25 Range/Units 16:48 Urine Color Yellow Urine Appearance Cloudy Urine pH 6.0 (5.0-9.0) Ur Specific [place] 1.020 (1.005-1.025) Urine Protein 100 (2+) H (Neg-Trace) mg/dL Urine Glucose (UA) Negative (Negative) mg/dL Urine Ketones Negative (Negative) mg/dL Urine Blood Large (3+) H (Negative) Urine Nitrite Negative (Negative) Ur Leukocyte Esterase Moderate (2+) H (Negative) Urine RBC >20 H (0-2) /HPF Urine WBC >50 H (0-5) /HPF Ur Squamous Epith Cells 0-2 (0-2) /HPF Calcium Oxalate Crystal Present Urine Bacteria 3+ (None Seen) Hyaline Casts 0-2 (0-2) /LPF Discharge Plan Discharge Clinical Impression: Chronic indwelling Covarrubias catheter Patient Disposition: Home, Self-Care Instructions: Covarrubias Catheter Care Additional Instructions: We exchanged your Covarrubias catheter and sent a urinalysis for analysis and culture. We will call you if you require treatment. No other testing was performed as you had no other symptoms and were comfortable after the exchange. We strongly back recommend you reschedule a follow up with Urology as you have not seen them since December 2024. Prescriptions: No Action ascorbic acid (vitamin C) 1,000 mg tablet 1,000 mg PO DAILY 90 Days Qty: 90 1RF nystatin 100,000 unit/gram cream 1 appl topical DAILY Qty: 15 0RF venlafaxine 75 mg capsule,extended release 24hr 75 mg PO DAILY hydroxyzine HCl 50 mg tablet 50 mg PO Q6H PRN (Reason: anxiety) acetaminophen 650 mg tablet extended release 650 mg PO Q12H PRN (Reason: pain) buspirone 10 mg tablet 10 mg BID cholecalciferol (vitamin D3) 50 mcg (2,000 unit) capsule 50 mcg DAILY baclofen 10 mg tablet 10 mg PO TID PRN (Reason: muscle spasm) albuterol sulfate 90 mcg/actuation Hfa Aerosol Inhaler 2 puff INHALATION Q4-6H PRN (Reason: Shortness Of Breath Or Wheezing) propranolol 10 mg Tablet 10 mg PO TID Qty: 270 0RF Protocol: Hold for SBP/HR < HOLD for SBP < : 90 HOLD for HR < : 60 methimazole 10 mg Tablet 10 mg PO DAILY Qty: 30 0RF lisinopril 10 mg tablet 10 mg PO DAILY aripiprazole 2 mg tablet 2 mg PO DAILY dextromethorphan-guaifenesin 10-100 mg/5 mL Syrup 10 ml PO Q6H PRN (Reason: Cough) Qty: 237 0RF ipratropium-albuterol 0.5 mg-3 mg(2.5 mg base)/3 mL Solution For Nebulization 3 ml inhalation RQ4H WHILE AWAKE PRN (Reason: Shortness Of Breath/Wheezing) Qty: 90 0RF levofloxacin 500 mg tablet 500 mg PO DAILY Qty: 5 0RF sulfamethoxazole-trimethoprim [Bactrim DS] 800-160 mg tablet 1 tab PO BID 10 Days Qty: 20 0RF gabapentin 300 mg capsule 900 mg PO TID oxycodone 5 mg tablet 5 mg PO Q6H PRN (Reason: pain) Qty: 10 0RF Rx Instructions: Patient may request partial refill; Partial Fill upon patient request. levofloxacin 250 mg tablet 250 mg PO Q24H 7 Days Qty: 7 0RF sulfamethoxazole-trimethoprim 800-160 mg tablet 1 tab PO BID Qty: 20 0RF ondansetron 4 mg tablet,disintegrating 4 mg PO Q8H PRN (Reason: nausea and vomiting) Qty: 10 0RF loperamide 2 mg capsule 2 mg PO Q6H PRN (Reason: loose stool) Qty: 10 0RF fluticasone propionate 50 mcg/actuation spray,suspension 2 spray intranasal DAILY PRN (Reason: Allergy Symptoms) aspirin [Adult Aspirin Regimen] 81 mg tablet,delayed release (DR/EC) 81 mg PO DAILY methenamine hippurate 1 gram tablet 1 g PO DAILY 90 Days Qty: 90 1RF Referrals: [facility] [place] Urology Services [Provider Group, Urology] Interventions: ED Discharge Assessment Last Done: 06/18/25 17:09 Discharge Date/Time: 06/18/25 19:14 Print Language: Macedonian
--- NOTE | 2025-06-18 16:42 | PC.NURSE ---
pt arrived w/ clogged chronic indwelling covarrubias catheter upon EMS arrival. chronic indwelling catheter removed d/t urinary retention/clogged catheter. new 16fr covarrubias catheter w/ 10ml balloon inserted at this time. pt noted to have 250ml of dark yellow, foul smelling urine immediately post output. urine specimen obtained/sent to lab.
[2025-06-18 16:45] VITALS: BP 167/97; PULSE 71; RESP 17; TEMP 36.5; O2SAT 98
[2025-06-18] MEDS: oxyCODONE HCl Immed Release 5 MG TABLET PO (16:47)
[2025-06-18 16:59] LABS: Appearance Urine Cloudy; Glucose Urine UA Negative (Negative); PH 6.0 (5.0-9.0); Specific Gravity - Urine 1.020 (1.005-1.025); UMIC TRIGGER UACC YES
[2025-06-18 17:07] LABS: UACC Culture Trigger YES
[2025-06-18 17:09] VITALS: BP 167/97; PULSE 71; RESP 17; TEMP 36.6; O2SAT 98
--- NOTE | 2025-06-18 19:14 | PC.NURSE ---
EMS at bedside for discharge home. Report given to [facility]. VSS. NAD.
== END 2025-06-18 19:14 | disposition home or self-care (01) ==
PROVIDERS: Emergency Provider Emergency Medicine; PCP Family Medicine
DX: Z43.6 Encounter for attention to other artificial openings of urinary tract (principal); I69.354 Hemiplegia and hemiparesis following cerebral infarction affecting left non-dominant side; I10 Essential (primary) hypertension; N31.2 Flaccid neuropathic bladder, not elsewhere classified; Z87.448 Personal history of other diseases of urinary system; Z79.899 Other long term (current) drug therapy
CPT/HCPCS: 51702; 81001; 87086; 99283; 99285

== ENCOUNTER 2025-07-11 08:53 | Inpatient (IN) | payer MEDICAID, SELFPAY ==
[2025-07-11] VITALS (14 sets, daily range): BP systolic 122–187; BP diastolic 71–90; PULSE 65–84; RESP 12–20; TEMP 36.3–37.1; O2SAT 95–99; BMI 33.6; BMI 32.7
--- NOTE | ~2025-07-11 | XR_ITS ---
EXAMINATION: XR CHEST CLINICAL INFORMATION: Fever, altered mental status, rule out pneumonia COMPARISON: April 02, 2025 TECHNIQUE: Frontal view of the chest was obtained. FINDINGS: ACDF has been performed in the lower cervical spine, approximately C6-T1. There are low lung volumes. Cardiac size is borderline enlarged. Proximal right humeral head is small with valgus deformity likely from a remote healed fracture XR/XR chest 1V IMPRESSION: Low lung volumes and borderline cardiomegaly. Chronic deformity of the proximal right humerus likely from a remote healed fracture. Electronically signed by: Derek Casillas MD 07/11/2025 09:48 AM EDT
--- NOTE | ~2025-07-11 | CT_ITS ---
EXAMINATION: CT HEAD WITHOUT CONTRAST CLINICAL INFORMATION: Altered mental status, rule out bleed, stroke COMPARISON: December 05, 2024 TECHNIQUE: Contiguous axial imaging was performed from the skull base to vertex without intravenous administration of contrast. This CT examination was performed using dose optimization techniques as appropriate, variously including the following: *Automated exposure control *Adjustment of mA and/or kV according to patient size (this includes techniques or standardized protocols for targeted exams where dose is matched to indication/reason for exam; i.e. extremities or head) *Use of iterative reconstruction technique DLP: 692 mGY*cm FINDINGS: There is no acute ischemic change. Chronic periventricular white matter hypodensities are present, Similar to the prior. There is no intracranial hemorrhage. There is no mass-effect or midline shift. There is mild generalized atrophy. Basal cisterns and ventricles are within normal limits for age/cerebral volume. Orbits are symmetrical and unremarkable. Paranasal sinuses and mastoid air cells are pneumatized. There are no bony abnormalities. CT/CT head/brain wo IV con IMPRESSION: No acute intracranial abnormality. Stable chronic changes. Electronically signed by: Derek Casillas MD 07/11/2025 10:34 AM EDT
--- NOTE | 2025-07-11 08:59 | ED.AMS ---
HPI - Altered Mental Status General Chief Complaint: Altered Mental Status Stated Complaint: ? stroke Time Seen by Provider: 07/11/25 08:58 Source: patient and EMS Mode of arrival: EMS Limitations: altered mental status History of Present Illness ED Provider: Dr. Moshe Kam HPI narrative: 59-year-old female with a past medical history of CVA on 01/26/2024 with residual left-sided hemiparesis, Graves disease, asthma, HTN, neurogenic bladder with chronic indwelling Quinonez, migraines, depression, and anxiety who presents to the ED for evaluation of altered mental status. Patient's mental status change sometime last night. Paramedics reported that she was having visual hallucinations. Paramedics were concerned that the patient may have had a stroke. On examination she was oriented to person and place but not month. She did not have any focal deficits but had generalized weakness. Related Data Home Medications ?Medication ?Instructions ?Recorded ?Confirmed fluticasone propionate 50 2 spray intranasal DAILY PRN 11/18/21 11/23/24 mcg/actuation nasal Allergy Symptoms spray,suspension aspirin 81 mg tablet,delayed 81 mg PO DAILY 12/07/23 11/23/24 release (Adult Aspirin Regimen) gabapentin 300 mg capsule 900 mg PO TID 06/11/24 11/23/24 acetaminophen 650 mg 650 mg PO Q12H PRN pain 07/20/24 11/23/24 tablet,extended release albuterol sulfate 90 mcg/actuation 2 puff inhalation Q4-6H PRN 07/20/24 11/23/24 aerosol inhaler Shortness Of Breath Or Wheezing baclofen 10 mg tablet 10 mg PO TID PRN muscle spasm 07/20/24 11/23/24 buspirone 10 mg tablet 10 mg BID 07/20/24 11/23/24 cholecalciferol (vitamin D3) 50 50 mcg DAILY 07/20/24 11/23/24 mcg (2,000 unit) capsule hydroxyzine HCl 50 mg tablet 50 mg PO Q6H PRN anxiety 07/20/24 11/23/24 venlafaxine 75 mg capsule,extended 75 mg PO DAILY 07/20/24 11/23/24 release 24 hr aripiprazole 2 mg tablet 2 mg PO DAILY 11/23/24 11/23/24 lisinopril 10 mg tablet 10 mg PO DAILY 11/23/24 11/23/24 Previous Rx's ?Medication ?Instructions ?Recorded nystatin 100,000 unit/gram topical 1 appl topical DAILY #15 grams 06/30/24 cream methimazole 10 mg tablet 10 mg PO DAILY #30 tabs 07/23/24 propranolol 10 mg tablet 10 mg PO TID #270 tabs 07/23/24 dextromethorphan-guaifenesin 10 10 ml PO Q6H PRN Cough #237 mL 11/25/24 mg-100 mg/5 mL oral syrup ipratropium 0.5 mg-albuterol 3 mg 3 ml inhalation RQ4H WHILE AWAKE 11/25/24 (2.5 mg base)/3 mL nebulization PRN Shortness Of Breath/Wheezing soln #90 mL methenamine hippurate 1 gram tablet 1 g PO DAILY 90 days #90 tabs 12/14/24 levofloxacin 250 mg tablet 250 mg PO Q24H 7 days #7 tabs 03/22/25 oxycodone 5 mg tablet 5 mg PO Q6H PRN pain #10 tabs 03/22/25 levofloxacin 500 mg tablet 500 mg PO DAILY #5 tabs 03/26/25 loperamide 2 mg capsule 2 mg PO Q6H PRN loose stool #10 04/02/25 caps ondansetron 4 mg disintegrating 4 mg PO Q8H PRN nausea and 04/02/25 tablet vomiting #10 tabs sulfamethoxazole 800 1 tab PO BID #20 tabs 04/02/25 mg-trimethoprim 160 mg tablet sulfamethoxazole 800 1 tab PO BID 10 days #20 tabs 04/28/25 mg-trimethoprim 160 mg tablet (Bactrim DS) ascorbic acid (vitamin C) 1,000 mg 1,000 mg PO DAILY 90 days #90 tabs 07/10/25 tablet Allergies Allergy/AdvReac Type Severity Reaction Status Date / Time No Known Allergies Allergy Verified 07/11/25 09:05 [facility] Past Medical History Medical History Hyperthyroidism Hemiparesis affecting left side as late effect of stroke Hypotonic bladder H/O urinary retention GERD (gastroesophageal reflux disease) Hyperlipidemia HTN (hypertension) PFO (patent foramen ovale) Patellofemoral arthrosis Knee derangement Surgical History History of surgery Social History Social History Household Members: Other 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 Do you presently have visiting nurse or other home services: Yes (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) Alcohol intake: current Alcohol intake frequency: does not drink Alcohol type: beer Patient Tobacco Use Status: Never used Tobacco Substance Use Type: Marijuana Advance Directives: Yes Advance Directives on File: Yes Advance Directives Date on File: 05/30/25 Do you have a plan to hurt others: No Plan service: No Current occupational status: retired and disabled 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 Physical Exam ED Vital Signs: Vital Signs - 24 hr 07/11/25 09:02 07/11/25 09:18 07/11/25 10:09 Temperature 98.7 F 98.7 F 97.6 F Pulse Rate 74 74 73 Respiratory Rate 19 19 14 Blood Pressure 170/90 H 170/90 H 131/80 Pulse Oximetry 96 96 96 Oxygen Delivery Method Room Air Room Air Room Air 07/11/25 10:37 07/11/25 10:54 07/11/25 11:21 Temperature Pulse Rate 73 69 69 Respiratory Rate 12 12 12 Blood Pressure 160/87 H 148/85 H 148/85 H Pulse Oximetry 97 97 97 Oxygen Delivery Method Room Air Room Air Room Air 07/11/25 11:37 07/11/25 12:13 07/11/25 14:01 Temperature 97.4 F 97.3 F Pulse Rate 65 69 67 Respiratory Rate 12 14 16 Blood Pressure 122/75 135/88 132/75 Pulse Oximetry 95 95 96 Oxygen Delivery Method Room Air Room Air Room Air BMI result Body Mass Index 33.6 Vital signs revealed an elevated blood pressure of 170/90 otherwise unremarkable. Exam: General: Awake, alert , lethargic but answers questions Head: Normocephalic, atraumatic EENT: PERRL, Lids normal, sclera normal, conjunctiva normal, nose normal , ears normal, throat without erythema or exudates Neck: Supple, no adenopathy Lung: breath sounds symmetric, no wheezing, rales or rhonchi Chest: symmetric movement, nontender Heart: regular rate and rhythm, normal S1, S2 no murmurs or rubs Abdomen: soft, non-tender, nondistended, normal bowel sounds Back: no vertebral tenderness, no CVAT Extremities: no deformities, moves all extremities symmetrically Neuro: Awake, alert, oriented, slow but comprehensible, cranial nerves intact, moves all extremities symmetrically Psych: Pleasant, cooperative Medications Administered Generic Name Dose Route Start Last Admin Trade Name Freq PRN Reason Stop Dose Admin Vancomycin HCl 2,000 mg in 500 mls @ 250 mls/hr 07/11/25 13:24 07/11/25 14:10 Vancomycin/Ns IV 07/11/25 15:23 250 mls/hr ONCE ONE Administration Discontinued Medications Generic Name Dose Route Start Last Admin Trade Name Freq PRN Reason Stop Dose Admin Ceftriaxone Sodium 1 gm 07/11/25 08:59 07/11/25 09:16 Ceftriaxone Sodium 1 Gm Vial IVPUSH 07/11/25 09:00 1 gm ONCE ONE Administration Sodium Chloride 1,641 mls @ 1,641 mls/hr 07/11/25 09:21 07/11/25 10:37 Ns IV 07/11/25 10:20 Infused .Q1H STA Infusion Medical Decision Making Medical Decision Making MDM Narrative: 59-year-old female with a past medical history of CVA on 01/26/2024 with residual left-sided hemiparesis, Graves disease, asthma, HTN, neurogenic bladder with chronic indwelling Quinonez, migraines, depression, and anxiety who presents to the ED for evaluation of altered mental status. Patient's mental status change sometime last night. Paramedics reported that she was having visual hallucinations. Paramedics were concerned that the patient may have had a stroke. On examination she was oriented to person and place but not month. She did not have any focal deficits but had generalized weakness. Vital signs revealed an elevated blood pressure otherwise unremarkable. Exam revealed no focal weakness but she was lethargic with slow speech. Differential diagnosis: ?Includes but is not limited to stroke, intracranial bleed, anemia, electrolyte abnormalities, pneumonia, urinary tract infection Course: 13:17 My independent interpretation patient's laboratory evaluation is as follows: WBC elevated 11,000. BUN and creatinine elevated 46 and 1.78 with a low GFR of 29 this is compared to a BUN and creatinine of 18 and 0.73 with a GFR greater than 60 from 05/30/2025 who she was seen for suprapubic pain. Urine culture at that time was negative. Urinalysis was positive for blood, protein, leukocyte esterase and nitrates. Microscopic revealed 11-20 RBCs, greater than 50 WBCs and 2+ bacteria. Lactic acid was normal at 0.9. Patient was made a sepsis alert on presentation and given a 30 cc per kg normal saline bolus based on the patient's ideal body weight since she is obese with a an elevated BMI of 33.6 kg per m2. She was also given ceftriaxone [address] scan of the head revealed no acute abnormalities. Chest x-ray revealed no evidence of pneumonia. Patient still appears to be altered, I am concerned that she may have a urinary tract infection. The patient has grown MRSA and Enterococcus in her urine in the past therefore I ordered vancomycin IV. I will discuss admission with the covering hospitalist. Differential Diagnosis Differential Diagnoses: The differential diagnosis associated with the presentation includes (See above) Admission/Observation Consideration of admission/observation: Escalation of care including admission/observation considered (Yes) Lab Data MDM Lab Attestation statement: I reviewed the patient's lab results. 07/11/25 09:13 07/11/25 10:19 Labs: Lab Results 07/11/25 07/11/25 07/11/25 Range/Units 08:58 09:13 09:16 WBC 11.0 H (4.8-10.8) X10*3/uL RBC 5.30 (4.20-5.50) X10*6/uL Hgb 15.0 (12.0-16.0) g/dl Hct 44.2 (37.0-47.0) % MCV 83.4 (80.0-98.0) fL MCH 28.3 (27.0-33.0) pg MCHC 33.9 (31.0-35.0) g/dl RDW 13.0 (11.0-16.0) % Plt Count 322 (160-400) X10*3/uL MPV 10.2 (9.4-12.3) fL Immature Gran % (Auto) 0.3 (0.0-0.4) % Neut % (Auto) 61.0 (45-73) % Lymph % (Auto) 27.0 (20-40) % [place] % (Auto) 8.1 (2-11) % Eos % (Auto) 3.1 (0-4) % Baso % (Auto) 0.5 (0-2) % Lymph # (Auto) 3.0 (1.2-4.9) X10*3/uL [place] # (Auto) 0.9 (0.1-1.2) X10*3/uL Eos # (Auto) 0.3 (0.0-0.4) X10*3/uL Baso # (Auto) 0.1 (0.0-0.2) X10*3/uL Abs Immat Gran (auto) 0.03 (0.00-0.03) X10*3/uL Absolute Neuts (auto) 6.7 (2.0-8.3) x10*3/uL Absolute Nucleated RBC 0.000 (0.0-0.012) X10*3/uL Nucleated RBC % (auto) 0.0 (0.0-0.2) /100WBC PT 10.4 L (10.9-12.4) SEC INR 0.9 (0.9-1.1) APTT 29.8 (26.7-34.1) SEC Sodium (135-145) mmol/L Potassium (3.3-5.1) mmol/L Chloride (96-108) mmol/L Carbon Dioxide (22-29) mmol/L Anion Gap (12-20) BUN (9-16) mg/dL Creatinine (0.5-1.4) mg/dL Estim Creat Clear Calc Estimated GFR POC Glucose 138 H (60-115) mg/dL Random Glucose (60-115) mg/dL Lactic Acid 0.9 (0.5-2.0) mmol/L Calcium (8.4-10.2) mg/dL Urine Color Yellow Urine Appearance Turbid Urine pH 5.0 (5.0-9.0) Ur Specific [place] 1.025 (1.005-1.025) Urine Protein 100 (2+) H (Neg-Trace) mg/dL Urine Glucose (UA) Negative (Negative) mg/dL Urine Ketones Trace (Negative) mg/dL Urine Blood Large (3+) H (Negative) Urine Nitrite Positive H (Negative) Ur Leukocyte Esterase Large (3+) H (Negative) Urine RBC 11-20 H (0-2) /HPF Urine WBC >50 H (0-5) /HPF Urine WBC Clumps Present Ur Squamous Epith Cells >20 (0-2) /HPF Calcium Oxalate Crystal Present Urine Bacteria 2+ (None Seen) Hyaline Casts 11-20 (0-2) /LPF 07/11/25 Range/Units 10:19 WBC (4.8-10.8) X10*3/uL RBC (4.20-5.50) X10*6/uL Hgb (12.0-16.0) g/dl Hct (37.0-47.0) % MCV (80.0-98.0) fL MCH (27.0-33.0) pg MCHC (31.0-35.0) g/dl RDW (11.0-16.0) % Plt Count (160-400) X10*3/uL MPV (9.4-12.3) fL Immature Gran % (Auto) (0.0-0.4) % Neut % (Auto) (45-73) % Lymph % (Auto) (20-40) % [place] % (Auto) (2-11) % Eos % (Auto) (0-4) % Baso % (Auto) (0-2) % Lymph # (Auto) (1.2-4.9) X10*3/uL [place] # (Auto) (0.1-1.2) X10*3/uL Eos # (Auto) (0.0-0.4) X10*3/uL Baso # (Auto) (0.0-0.2) X10*3/uL Abs Immat Gran (auto) (0.00-0.03) X10*3/uL Absolute Neuts (auto) (2.0-8.3) x10*3/uL Absolute Nucleated RBC (0.0-0.012) X10*3/uL Nucleated RBC % (auto) (0.0-0.2) /100WBC PT (10.9-12.4) SEC INR (0.9-1.1) APTT (26.7-34.1) SEC Sodium 142 (135-145) mmol/L Potassium 3.7 (3.3-5.1) mmol/L Chloride 110 H (96-108) mmol/L Carbon Dioxide 22 (22-29) mmol/L Anion Gap 14 (12-20) BUN 46 H (9-16) mg/dL Creatinine 1.78 H (0.5-1.4) mg/dL Estim Creat Clear Calc 36.6 Estimated GFR 29 POC Glucose (60-115) mg/dL Random Glucose 114 (60-115) mg/dL Lactic Acid (0.5-2.0) mmol/L Calcium 8.3 L D (8.4-10.2) mg/dL Urine Color Urine Appearance Urine pH (5.0-9.0) Ur Specific [place] (1.005-1.025) Urine Protein (Neg-Trace) mg/dL Urine Glucose (UA) (Negative) mg/dL Urine Ketones (Negative) mg/dL Urine Blood (Negative) Urine Nitrite (Negative) Ur Leukocyte Esterase (Negative) Urine RBC (0-2) /HPF Urine WBC (0-5) /HPF Urine WBC Clumps Ur Squamous Epith Cells (0-2) /HPF Calcium Oxalate Crystal Urine Bacteria (None Seen) Hyaline Casts (0-2) /LPF Independent Interpretation I performed an independent interpretation of an: Plain X-Ray Interpretation: My independent interpretation patient's chest x-ray is as follows: No acute disease Radiology Impression Discussion of test interpretation with radiology: I have reviewed the radiologist's reading. Radiologist Impression: CT head/brain wo IV con IMPRESSION: No acute intracranial abnormality. Stable chronic changes. Electronically signed by: Derek Casillas MD 07/11/2025 10:34 AM EDT XR chest 1V IMPRESSION: Low lung volumes and borderline cardiomegaly. Chronic deformity of the proximal right humerus likely from a remote healed fracture. Electronically signed by: Derek Casillas MD 07/11/2025 09:48 AM EDT External Record Review External record reviewed: Inpatient record Chronic Conditions Patient?s care impacted by: Other (Hyperthyroidism, chronic indwelling Quinonez catheter) Critical Care Time Critical Care Time Critical Care Time: Yes Total Critical Care Time: 45 Attestation: Critical Care: The patient was critically ill with a high probability of imminent or life threatening deterioration. I spent greater than 30 minutes of discontinuous time evaluating the patient,delivering critical care at the bedside, discussing and evaluating pertinent data with consultants. Critical care time does not include time spent performing separately billable procedures or teaching. Total time spent performing critical care was 45 minutes. Discharge Plan Discharge Clinical Impression: Acute alteration in mental status, Urinary tract infection, ANISA (acute kidney injury) Patient Disposition: Admitted As Inpatient
--- NOTE | 2025-07-11 09:00 | ECG_ITS ---
Test Reason : SEPSIS Blood Pressure : */* mmHG Vent. Rate : 74 BPM Atrial Rate : 74 BPM P-R Int : 162 ms QRS Dur : 82 ms QT Int : 416 ms P-R-T Axes : 21 -31 -5 degrees QTcB Int : 461 ms Normal sinus rhythm Left axis deviation Moderate voltage criteria for LVH, may be normal variant ( R in aVL , [place] product ) Septal infarct (cited on or before 02-Apr-2025) Abnormal ECG When compared with ECG of 01-May-2025 11:44, Nonspecific T wave abnormality now evident in Lateral leads Referred By: Moshe Kam Electronically Signed By: Prasanna Schmidt
[2025-07-11 09:21] LABS: MANUAL DIFF FLAG NO
[2025-07-11 09:25] LABS: Hematocrit 44.2 % (37.0-47.0); Hemoglobin 15.0 g/dl (12.0-16.0); Imm Gran Abs Auto 0.03 X10*3/uL (0.00-0.03); Imm Gran Pct Auto 0.3 % (0.0-0.4); Lymphocytes Absolute Auto 3.0 X10*3/uL (1.2-4.9); Mean Corpuscular HGB Conc 33.9 g/dl (31.0-35.0); Mean Corpuscular Hemoglobin 28.3 pg (27.0-33.0); Mean Corpuscular Volume 83.4 fL (80.0-98.0); NRBC Abs Auto 0.000 X10*3/uL (0.0-0.012); NRBC Pct Auto 0.0 /100WBC (0.0-0.2); Platelet Count 322 X10*3/uL (160-400); Red Blood Count 5.30 X10*6/uL (4.20-5.50); White Blood Count 11.0 X10*3/uL (4.8-10.8)
[2025-07-11 09:29] LABS: Appearance Urine Turbid; Glucose Urine UA Negative (Negative); PH 5.0 (5.0-9.0); Specific Gravity - Urine 1.025 (1.005-1.025); UMIC TRIGGER UACC YES
[2025-07-11 09:46] LABS: UACC Culture Trigger YES
[2025-07-11 09:51] LABS: INTERNATIONAL NORM RATIO 0.9 (0.9-1.1); Prothrombin Time 10.4 SEC (10.9-12.4)
[2025-07-11 09:54] LABS: Partial Thromboplastin Time 29.8 SEC (26.7-34.1)
[2025-07-11 10:24] LABS: Glucose, Whole Blood 138 mg/dL (60-115)
[2025-07-11 10:36] LABS: Anion Gap 14 (12-20); Blood Urea Nitrogen 46 mg/dL (9-16); Calcium 8.3 mg/dL (8.4-10.2); Carbon Dioxide 22 mmol/L (22-29); Chloride 110 mmol/L (96-108); Creatinine Clr Calc Pharmacy 36.6; Estimated Glomerular Filt Rate 29; Potassium 3.7 mmol/L (3.3-5.1); Sodium 142 mmol/L (135-145)
--- OUTSIDE RECORDS SUMMARY | 2025-07-11 12:24 | XMS_ITS | Encounter Summary ---
Author Organization [employer] Address [address] [place] [address] Care Team Providers Care Group Billing Coordinator Name Role Phone Aliza Paul DO Primary Care Provider [phone] Lesley Ingram Unavailable Rosi Castro RN Unavailable [phone] Rosi Castro RN Unavailable [phone] Lesley Ingram Unavailable Rocio Ingram RN Unavailable [phone] Kathrine Blank Unavailable Reason for Visit * Reason Onset Date Comments fyi 01/17/2025 Encounter Details Date Type Department Care Team (Late st Contact Info) Description 01/17/2025 Telephone [facility] [address] [place], [place] [phone] Aliza Paul DO [address] [place], [place] [phone] fyi Social History Tobacco Use Types Packs/Day Years [...] encounter Miscellaneous Notes * Telephone Encounter - Merlene Kolb - 01/17/2025 9:12 AM EDT Tc from [place] with [email or web address] Informing they will be sending authorization for AEROSPACE PHYSIOLOGICAL TECHNICIAN services as pt currently has no in-home services and needs form send back urgently. If any questions please contact Martina [phone] documented in this encounter Plan of Treatment Upcoming Encounters Date Type Department Care Team (Late st Contact Info) Description 10/09/2025 1:30 PM EST Office Visit [facility] [address] [place] [address] Krystyna Hicks, OD [address] [place] [address] documented as of this encounter Visit Diagnoses Not on filedocumented in this encounter Additional Health Concerns Assessment Noted Time PHQ-9 Depression Total Score: 15 024 9:20 AM EDT documented as of this encounter Care Teams Group Billing Coordinator Relationship Specialty Start Date End Date Aliza Paul DO [address] [place] [address] PCP - General Family Medicine 02/23/12 Lesley Ingram Community Health Worker 05/17/24 Rosi Castro, RICHARDSON [address] [place] [address] Fruit Or Nut Farmworker 05/17/24 03/05/25 Rosi Castro, RICHARDSON [address] [place] [address] Registered Nurse Family Medicine 04/06/25 04/10/25 Lesley Ingram 04/06/25 04/10/25 Rocio Ingram RN [address] [place] [address] Registered Nurse Family Medicine 04/19/25 Kathrine Blank 04/19/25 [facility] 07/27/24 05/28/25 [facility] 05/29/25 documented as of this encounter
--- OUTSIDE RECORDS SUMMARY | 2025-07-11 12:24 | XMS_ITS | Encounter Summary ---
Author Organization [employer] Address [address] [place] [address] Care Team Providers Care Email Deployment Specialist Name Role Phone Aliza Paul DO Primary Care Provider [phone] Lesley Ingram Unavailable Rosi Castro RN Unavailable [phone] Rosi Castro RN Unavailable [phone] Lesley Ingram Unavailable Rocio Ingram RN Unavailable [phone] Kathrine Blank Unavailable Reason for Visit * Reason Onset Date Comments FYI 08/14/2024 Encounter Details Date Type Department Care Team (Late st Contact Info) Description 08/14/2024 Telephone [facility] [address] [place], [place] [phone] Aliza Paul DO [address] [place], [place] [phone] FYI Social History Tobacco Use Types Packs/Day [...] - 08/14/2024 10:28 AM EDT [facility] inform went to visit pt today to be able to change catheter. But when she arrived pt was being put in the ambulance and was going to be transported to [place] for shortness of breath. documented in this encounter Plan of Treatment Upcoming Encounters Date Type Department Care Team (Late st Contact Info) Description 10/09/2025 1:30 PM EST Office Visit [facility] [address] [place] [address] Krystyna Hicks, OD [address] [place] [address] documented as of this encounter Visit Diagnoses Not on filedocumented in this encounter Additional Health Concerns Assessment Noted Time PHQ-9 Depression Total Score: 4 03/09/20 24 9:14 AM EDT documented as of this encounter Care Teams Email Deployment Specialist Relationship Specialty Start Date End Date Aliza Paul DO [address] [place] [address] PCP - General Family Medicine 02/23/12 Lesley Ingram Community Health Worker 05/17/24 Rosi Castro, RICHARDSON [address] [place] [address] Petroleum Laboratory Technician 05/17/24 03/05/25 Rosi Castro, RICHARDSON [address] [place] [address] Registered Nurse Family Medicine 04/06/25 04/10/25 Lesley Ingram 04/06/25 04/10/25 Rocio Ingram RN [address] [place] [address] Registered Nurse Family Medicine 04/19/25 Kathrine Blank 04/19/25 [facility] 07/27/24 05/28/25 [facility] 05/29/25 documented as of this encounter
--- OUTSIDE RECORDS SUMMARY | 2025-07-11 12:24 | XMS_ITS | Encounter Summary ---
Author Organization [employer] Address [address] [place] [address] Care Team Providers Care Photographic Hand Developer Name Role Phone Aliza Paul DO Primary Care Provider [phone] Lesley Ingram Unavailable Rosi Castro RN Unavailable [phone] Rosi Castro RN Unavailable [phone] Lesley Ingram Unavailable Rocio Ingram RN Unavailable [phone] Kathrine Blank Unavailable Reason for Visit * Reason Onset Date Comments FYI 05/15/2024 Encounter Details Date Type Department Care Team (Late st Contact Info) Description 05/15/2024 Telephone [facility] [address] [place], [place] [phone] Aliza Paul DO [address] [place], [place] [phone] FYI Social History Tobacco Use Types Packs/Day [...] be receiving home health care service with [facility] and referral was also made to [facility] for additional homemaking, personal care and OFFENDER JOB RETENTION SPECIALIST services. Pt. Declined services. FYI for HDF 05/23/24 * Telephone Encounter - Timoteo Blank - 05/15/2024 1:04 PM EDT Tc from Karlie with [facility] calling to inform they were unable to admit pt into services, Karlie stated they managed to get in contact with pt but pt gave another excuse on why she wasn't able to accept services. If any questions you can contact Karlie at [phone]. documented in this encounter Plan of Treatment Upcoming Encounters Date Type Department Care Team (Late st Contact Info) Description 10/09/2025 1:30 PM EST Office Visit [facility] [address] [place], [place] [phone] Kurt Krystyna, OD [address] [place] [address] documented as of this encounter Visit Diagnoses Not on filedocumented in this encounter Additional Health Concerns Assessment Noted Time PHQ-9 Depression Total Score: 4 03/09/20 9:14 AM EDT documented as of this encounter Care Teams Photographic Hand Developer Relationship Specialty Start Date End Date Aliza Paul DO [address] [place] [address] PCP - General Family Medicine 02/23/12 Lesley Ingram Community Health Worker 05/17/24 Rosi Castro RN [address] [place] [address] Outsole Beveler 05/17/24 03/05/25 Rosi Castro, RICHARDSON [address] [place] [address] Registered Nurse Family Medicine 04/06/25 04/10/25 Lesley Ingram 04/06/25 04/10/25 Rocio Ingram, RICHARDSON [address] [place], [place] [phone] Registered Nurse Family Medicine 04/19/25 Kathrine Blank 04/19/25 [facility] 07/27/24 05/28/25 [facility] 05/29/25 documented as of this encounter
--- OUTSIDE RECORDS SUMMARY | 2025-07-11 12:24 | XMS_ITS | Encounter Summary ---
Author Organization [employer] Address [address] [place] [address] 7t [place] [address] Care Team Providers Care Siding Coreboard Inspector Name Role Phone Aliaz Paul DO Primary Care Provider Lesley Ingram Unavailable Rosi Castro RN Unavailable [phone] Rosi Castro RN Unavailable [phone] Lesley Ingram Unavailable Rocio Ingram RN Unavailable [phone] Kathrine Blank Unavailable Reason for Visit * Reason Onset Date Comments PT-1 10/19/2024 Encounter Details Date Type Department Care Team (Late st Contact Info) Description 10/19/2024 Telephone [facility] MEDICINE [address] [place], [place] [phone] Aliza Paul DO 230 [place], [place] [phone] PT-1 Social History Tobacco Use Types Packs/Day [...] Y/N: Yes Provider name or facility name: [facility] Facility Address: [address] [place] [address] Escort needed: Y/N: Yes Do you have a wheelchair: Y/N: Yes If yes- Manual or electric: Sathish Visits: Once a month - Patient calling requesting PT1 Home Address verified: Y/N: Yes Provider name or facility name: [facility] Facility Address: [address] [place] [address] Escort needed: Y/N: Yes Do you have a wheelchair: Y/N: Yes If yes- Manual or electric: Sathish Visits: Once a month documented in this encounter Plan of Treatment Upcoming Encounters Date Type Department Care Team ([facility] st Contact Info) Description 10/09/2025 1:30 PM EST Office Visit [facility] OPTOMETRY [address] [place], [place] [phone] Krystyna Hicks, OD 267 [place] [address] documented as of this encounter Visit Diagnoses Not on filedocumented in this encounter Additional Health Concerns Assessment Noted Time PHQ-9 Depression Total Score: 15 024 9:20 AM EDT documented as of this encounter Care Teams Siding Coreboard Inspector Relationship Specialty Start Date End Date Aliza Paul DO 230 [place], [place] [phone] PCP - General Family Medicine 02/23/12 Lesley Ingram Community Health Worker 05/17/24 Rosi Castro RN 505 [place] [address] Bale Coverer 05/17/24 03/05/25 Rosi Castro RN 505 [place], [place] [phone] Registered Nurse Family Medicine 04/06/25 04/10/25 Lesley Ingram 04/06/25 04/10/25 Rocio Ingram RN 505 [place] [address] Registered Nurse Family Medicine 04/19/25 Kathrine Blank 04/19/25 [facility] 07/27/24 05/28/25 [facility] 05/29/25 documented as of this encounter
--- OUTSIDE RECORDS SUMMARY | 2025-07-11 12:24 | XMS_ITS | Encounter Summary ---
Author Organization [employer] Address [address] [facility] 7t [place] [address] Care Team Providers Care Precision Inspector Name Role Phone Aliza Paul DO Primary Care Provider [phone] Lesley Ingram Unavailable Rosi Castro RN Unavailable [phone] Rosi Castro RN Unavailable [phone] Lesley Ingram Unavailable Rocio Ingram RN Unavailable [phone] Kathrine Blank Unavailable Reason for Visit * Reason Comments Med Refill Encounter Details Date Type Department Care Team (Late st Contact Info) Description 12/27/2024 Refill [facility] MEDICINE 230 [place], [place] [phone] Aliza Paul DO 230 [place], [place] [phone] Other chronic pain Social History Tobacco Use [...] Description 10/09/2025 1:30 PM EST Office Visit [facility] OPTOMETRY [address] [place] [address] Krystyna Hicks, OD 267 [place] [address] documented as of this encounter Visit Diagnoses Diagnosis Other chronic pain documented in this encounter Additional Health Concerns Assessment Noted Time PHQ-9 Depression Total Score: 15 024 9:20 AM EDT documented as of this encounter Care Teams Precision Inspector Relationship Specialty Start Date End Date Aliza Paul DO [address] [place] [address] PCP - General Family Medicine 02/23/12 Lesley Ingram Community Health Worker 05/17/24 Rosi Castro RN 505 [place] [address] Affirmative Action Specialist 05/17/24 03/05/25 Rosi Castro RN [address] [facility] [place] [address] Registered Nurse Family Medicine 04/06/25 04/10/25 Lesley Ingram 04/06/25 04/10/25 Rocio Ingram RN 505 [facility] [place] [address] Registered Nurse Family Medicine 04/19/25 Kathrine Blank 04/19/25 [facility] 07/27/24 05/28/25 [facility] 05/29/25 documented as of this encounter
--- OUTSIDE RECORDS SUMMARY | 2025-07-11 12:24 | XMS_ITS | Encounter Summary ---
Author Organization [email or web address] Address [address] [place] [address] 7t [place] [address] Care Team Providers Care Asbestos Pipe Supervisor Name Role Phone Aliza Paul DO Primary Care Provider Lesley Ingram Unavailable Rosi Castro RN Unavailable [phone] Rosi Castro RN Unavailable [phone] Lesley Ingram Unavailable Rocio Ingram RN Unavailable [phone] Kathrine Blank Unavailable Encounter Details Date Type Department Care Team (Late st Contact Info) Description 11/04/2022 Telephone [facility] MEDICINE 230 [place], [place] [phone] Aliza Paul DO 230 [place], [place] [phone] Social History Tobacco Use Types Packs/Day Years [...] Description 10/09/2025 1:30 PM EST Office Visit [facility] OPTOMETRY [address] [place] [address] Krystyna Hicks, OD [address] [place] [address] documented as of this encounter Visit Diagnoses Not on filedocumented in this encounter Care Teams Asbestos Pipe Supervisor Relationship Specialty Start Date End Date Aliza Paul DO 230 [place] [address] PCP - General Family Medicine 02/23/12 Lesley Ingram Community Health Worker 05/17/24 Rosi Castro, RICHARDSON 505 [place] [address] Yield Clerk 05/17/24 03/05/25 Rosi Castro, RICHARDSON 505 [place], [place] [phone] Registered Nurse Family Medicine 04/06/25 04/10/25 Lesley Ingram 04/06/25 04/10/25 Rocio Ingram, RICHARDSON 505 [place] [address] Registered Nurse Family Medicine 04/19/25 Kathrine Blank 04/19/25 [facility] 07/27/24 05/28/25 [facility] 05/29/25 documented as of this encounter
--- OUTSIDE RECORDS SUMMARY | 2025-07-11 12:24 | XMS_ITS | Encounter Summary ---
Author Organization [facility] Address [address] [place] [address] Care Team Providers Care Discharge Planner Name Role Phone Aliza Paul DO Primary Care Provider [phone] Encounter Details Date Type Department Care Team (Late st Contact Info) Description 09/29/2024 Lab Requisition [facility] - Main Lab [address] [facility] [place] [address] Aliza Paul DO 230 [place], [place] Urinary tract infection, site not specified [...] mirabilis(A ) OFELIA 10/01/2024 9:03 AM EST [facility] Comment: Edited result: Previously reported as Proteus species on 09/30/2024 at 1159 EST. Urine Urine specimen from urinary conduit / Unknown 09/29/2024 3:30 PM EST 09/29/2024 6:23 PM EST Narrative [facility] - 10/01/2024 9:03 AM EST Additional [...] LAB MICROBIOLOGY - GENERAL ORDERABLES Final Result [facility] [address] [place] [address], documented in this encounter Visit Diagnoses Diagnosis Urinary tract infection, site not specified documented in this encounter Care Teams Discharge Planner Relationship Specialty Start Date End Date Aliza Paul DO [address] [place] [address] PCP - General Family Medicine 10/04/24 documented as of this encounter
--- OUTSIDE RECORDS SUMMARY | 2025-07-11 12:24 | XMS_ITS | Encounter Summary ---
Author Organization [employer] Address 75 [facility] 7t [place] [address] Care Team Providers Care Reinforcing Bar Setter Name Role Phone Aliza Paul DO Primary Care Provider [phone] Lesley Ingram Unavailable Rosi Castro RN Unavailable [phone] Rosi Castro RN Unavailable [phone] Lesley Ingram Unavailable Rocio Ingram RN Unavailable [phone] Kathrine Blank Unavailable Reason for Visit * Reason Comments Med Refill Encounter Details Date Type Department Care Team (Late st Contact Info) Description 10/29/2023 Refill [facility] MEDICINE 230 [place], [place] [phone] Aliza Paul DO 230 [place], [place] [phone] Social History Tobacco Use Types Packs/Day Years [...] Description 10/09/2025 1:30 PM EST Office Visit [facility] OPTOMETRY [address] [place] [phone] Krystyna Hicks, OD 267 [place] [address] documented as of this encounter Visit Diagnoses Not on filedocumented in this encounter Care Teams Reinforcing Bar Setter Relationship Specialty Start Date End Date Aliza Paul DO [address] [place] [address] PCP - General Family Medicine 02/23/12 Lesley Ingram Community Health Worker 05/17/24 Rosi Castro RN 505 [place] [address] Field Service Tech 05/17/24 03/05/25 Rosi Castro RN 505 [place] [address] Registered Nurse Family Medicine 04/06/25 04/10/25 Lesley Ingram 04/06/25 04/10/25 Rocio Ingram RN [address] [place] [address] Registered Nurse Family Medicine 04/19/25 Kathrine Blank 04/19/25 [facility] 07/27/24 05/28/25 [facility] 05/29/25 documented as of this encounter
--- OUTSIDE RECORDS SUMMARY | 2025-07-11 12:24 | XMS_ITS | Encounter Summary ---
Author Organization [employer] Address 75 [facility] 7t [place] [address] Care Team Providers Care Suture Polisher Name Role Phone Aliza Paul DO Primary Care Provider [phone] Lesley Ingram Unavailable Rosi Castro RN Unavailable [phone] Rosi Castro RN Unavailable [phone] Lesley Ingram Unavailable Rocio Ingram RN Unavailable [phone] Kathrine Blank Unavailable Reason for Visit * Reason Onset Date Comments Nurse Triage 09/13/2024 Encounter Details Date Type Department Care Team (Late st Contact Info) Description 09/13/2024 Telephone [facility] MEDICINE 230 [place], [place] [phone] Aliza Paul DO 230 [place], [place] [phone] Nurse Triage Social History Tobacco Use Types [...] t he electric, gas, oil or water [employer] threatened to shut off services in your [...] now. Pt is offered to come to [facility] which is open till 8pm today but, doesn't have transportation. Pt reports will come tomorrow to [facility] open 830am -400pm. Pt requests an uber ride for tomorrow. Uber is scheduled for 1155am moss picker at Pt address for tomorrow. Pt [...] Upcoming Encounters Date Type Department Care Team ([facility] Contact Info) Description 10/09/2025 1:30 PM EST Office Visit [facility] OPTOMETRY 267 [place] [address] Krystyna Hicks, OD 267 [place] [address] documented as of this encounter Visit Diagnoses Not on filedocumented in this encounter Additional Health Concerns Assessment Noted Time PHQ-9 Depression Total Score: 15 024 9:20 AM EDT documented as of this encounter Care Teams Suture Polisher Relationship Specialty Start Date End Date Aliza Paul DO [address] [place] [address] PCP - General Family Medicine 02/23/12 Lesley Ingram Community Health Worker 05/17/24 Rosi Castro RN 505 [place] [address] Claim Review Medical Director 05/17/24 03/05/25 Rosi Castro RN 505 [place] [address] Registered Nurse Family Medicine 04/06/25 04/10/25 Lesley Ingram 04/06/25 04/10/25 Rocio Ingram RN [address] [place] [address] Registered Nurse Family Medicine 04/19/25 Kathrine Blank 04/19/25 [facility] 07/27/24 05/28/25 [facility] 05/29/25 documented as of this encounter
--- OUTSIDE RECORDS SUMMARY | 2025-07-11 12:24 | XMS_ITS | Clinical Summary ---
Author Organization 299 [facility] Address 299 [place] [address] Phone Care Team Providers Care Ticket Clerk Name Role Phone Aliza Paul DO Primary Care Provider [phone] Social History Tobacco Use Types Packs/Day Years [...] (2 of 2 - PCV) 12/16/2022 12/16/2021 Colorectal Cancer Screening: Colonoscopy 09/30/2024 Hepatitis C Screening 09/30/2024 Social Influencers of Health Screening 09/30/2024 Depression Screening 11/08/2024 COVID-19 Vaccine (2 - 2024-2 6 season) 2025 10/17/2022 Influenza Vaccine (#1) 2025 7, 08/16/2014, 08/02/2012 [...] topic Insurance MEDICAID - [place] Care Teams Ticket Clerk Relationship Specialty Start Date End Date Aliza Paul DO [address] [place], [place] PCP - General Family Medicine 10/04/24
--- OUTSIDE RECORDS SUMMARY | 2025-07-11 12:24 | XMS_ITS | Encounter Summary ---
Author Organization [employer] Address 75 [facility] 7t [place] [address] Care Team Providers Care Television News Anchor Name Role Phone Aliza Paul DO Primary Care Provider [phone] Lesley Ingram Unavailable Rosi Castro RN Unavailable [phone] Rosi Castro RN Unavailable [phone] Lesley Ingram Unavailable Rocio Ingram RN Unavailable [phone] Kathrine Blank Unavailable Reason for Visit * Reason Comments Med Refill Encounter Details Date Type Department Care Team (Late st Contact Info) Description 10/19/[address] [facility] MEDICINE 230 [place], [place] [phone] Aliza Paul DO 230 [place], [place] [phone] Other chronic pain Social History Tobacco Use [...] Description 10/09/2025 1:30 PM EST Office Visit [facility] OPTOMETRY [address] [place] [address] Krystyna Hicks, OD 267 [place] [address] documented as of this encounter Visit Diagnoses Diagnosis Other chronic pain documented in this encounter Additional Health Concerns Assessment Noted Time PHQ-9 Depression Total Score: 15 024 9:20 AM EDT documented as of this encounter Care Teams Television News Anchor Relationship Specialty Start Date End Date Aliza Paul DO [address] [place] [address] PCP - General Family Medicine 02/23/12 Lesley Ingram Community Health Worker 05/17/24 Rosi Castro RN 505 [facility] [place] [address] Industrial Electrician Journeyman 05/17/24 03/05/25 Rosi Castro RN 505 [facility] [place] [address] Registered Nurse Family Medicine 04/06/25 04/10/25 Lesley Ingram 04/06/25 04/10/25 Rocio Ingram RN 505 [facility] [place] [address] Registered Nurse Family Medicine 04/19/25 Kathrine Blank 04/19/25 [facility] 07/27/24 05/28/25 [facility] 05/29/25 documented as of this encounter
--- OUTSIDE RECORDS SUMMARY | 2025-07-11 12:24 | XMS_ITS | Encounter Summary ---
Author Organization [employer] Address 75 [facility] 7t [place] [address] Care Team Providers Care Scheduling Administrator Name Role Phone Aliza Paul DO Primary Care Provider [phone] Lesley Ingram Unavailable Rosi Castro RN Unavailable [phone] Rosi Castro RN Unavailable [phone] Lesley Ingram Unavailable Rocio Ingram RN Unavailable [phone] Kathrine Blank Unavailable Reason for Visit * Reason Comments Med Refill Encounter Details Date Type Department Care Team (Late st Contact Info) Description 07/01/2024 Refill [facility] MEDICINE 230 [place], [place] [phone] Aliza Paul DO 230 [place], [place] [phone] Other chronic pain Social History Tobacco Use [...] Description 10/09/2025 1:30 PM EST Office Visit [facility] OPTOMETRY 267 [place], [place] [phone] Krystyna Hicks, OD 267 [place] [address] documented as of this encounter Visit Diagnoses Diagnosis Other chronic pain documented in this encounter Additional Health Concerns Assessment Noted Time PHQ-9 Depression Total Score: 4 03/09/20 24 9:14 AM EDT documented as of this encounter Care Teams Scheduling Administrator Relationship Specialty Start Date End Date Aliza Paul DO 230 [place] [address] PCP - General Family Medicine 02/23/12 Lesley Ingram Community Health Worker 05/17/24 Rosi Castro RN 505 [place] [address] Cold Meat Cook 05/17/24 03/05/25 Rosi Castro, RICHARDSON 505 [place] [address] Registered Nurse Family Medicine 04/06/25 04/10/25 Lesley Ingram 04/06/25 04/10/25 Rocio Ingram RN 505 [place] [address] Registered Nurse Family Medicine 04/19/25 Kathrine Blank 04/19/25 [facility] 07/27/24 05/28/25 [facility] 05/29/25 documented as of this encounter
--- OUTSIDE RECORDS SUMMARY | 2025-07-11 12:24 | XMS_ITS | Encounter Summary ---
Author Organization [employer] Address [address] [place] [address] 7t [place] [address] Care Team Providers Care Research Methods Instructor Name Role Phone Aliza Paul DO Primary Care Provider Lesley Ingram Unavailable Rosi Castro RN Unavailable [phone] Rosi Castro RN Unavailable [phone] Lesley Ingram Unavailable Rocio Ingram RN Unavailable Kathrine Blank Unavailable Encounter Details Date Type Department Care Team (Late st Contact Info) Description 11/04/2022 Orders Only [facility] [address] [place], [place] [phone] Aliza Paul DO 230 [place], [place] [phone] Social History Tobacco Use Types Packs/Day Years [...] PM EST Office Visit [facility] OPTOMETRY [address] [place], [place] [phone] Krystyna Hicks, OD 267 [place] [address] documented as of this encounter Visit Diagnoses Not on filedocumented in this encounter Care Teams Research Methods Instructor Relationship Specialty Start Date End Date Aliza Paul DO 230 [place] [address] PCP - General Family Medicine 02/23/12 Lesley Ingram Community Health Worker 05/17/24 Rosi Castro RN 505 [place], [place] [phone] Inspector Wire Products 05/17/24 03/05/25 Rosi Castro RN 505 [place], [place] [phone] Registered Nurse Family Medicine 04/06/25 04/10/25 Lesley Ingram 04/06/25 04/10/25 Rocio Ingram RN 505 [place], [place] [phone] Registered Nurse Family Medicine 04/19/25 Kathrine Blank 04/19/25 [facility] 07/27/24 05/28/25 [facility] 05/29/25 documented as of this encounter
--- OUTSIDE RECORDS SUMMARY | 2025-07-11 12:24 | XMS_ITS ---
Author Organization [employer] Address [address] [place] [address] 7t [place] [address] Care Team Providers Care Instructor Programmable Controllers Name Role Phone Aliza Paul DO Primary Care Provider Lesley Ingram Unavailable Rocio Ingram RN Unavailable [phone] Kathrine Blank Unavailable CM Complex Status:Outreach In Progress (Enrolling) Start date:04/19/2025 Enrollment reason:ADT Feed Overview ADT-[facility] ED 04/18/25 Case Team Name Relationship Phone Rocio Ingram RN(Responsible Staff) Registered Nurse [phone] Continued Care and Services Coordination
--- OUTSIDE RECORDS SUMMARY | 2025-07-11 12:24 | XMS_ITS | Clinical Summary ---
Author Organization [employer] Address [address] [place] [address] [address] [place] [address] Care Team Providers Care Associate Dean Of Students Name Role Phone RupalAliza toribio Primary Care Provider [phone] Lesley Ingram Unavailable Rocio Ingram RN Unavailable [phone] Kathrine Blank Unavailable Allergies No known active allergies Medications * [...] HOURS NEEDED 6.7 g 03/04/20 23 Active HYDROmorphone (Dilaudid) 4 MG tabletIndication s:Neck [...] as prescribed 1 each 09/07/20 24 Active Ascorbic Acid (vitamin C) 1000 MG tablet Take 1 tablet by mouth Once per day. 11/16/19 25 Active ipratropium-albu terol (Duo-Neb) 0.5-2.5 mg/3 mL nebulizer solution INHALE THE CONTENTS OF 1 VIAL EVERY 4 HOURS WHILE AWAKE NEEDED FOR SHORTNESS OF BREATH/WHEEZI NG 11/25/19 25 Active cholecalciferol VITAMIN D (Vitamin D-3) 50 MCG (2000 UT) capsule TAKE ONE CAPSULE DAILY 90 capsule 1 01/13/20 25 Active hydrocortisone (Anusol-HC) 2.5 % rectal creamIndications :Hemorrhoids, unspecified hemorrhoid type Insert into the rectum 2 times daily. 28 g 02/03/20 25 Active azithromycin (Zithromax) 250 MG tabletIndication s:Acute maxillary sinusitis, recurrence not specified Take 2 tabs PO daily x 1d then 1 tab PO daily on D2 to D5 6 tablet 02/03/20 25 Active carboxymethylcel lulose (Refresh Tears) 0.5 % ophthalmic solution Administer 1 drop into both eyes if needed in the morning and at bedtime for dry eyes. 10 mL 11 02/09/20 25 Active busPIRone (Buspar) 10 MG tablet TAKE ONE TABLET TWICE DAILY 60 tablet 3 02/20/20 25 Active acetaminophen (Tylenol 8 Hour) 650 MG ER tabletIndication s:Closed supracondylar fracture of right humerus with routine healing TAKE ONE TABLET EVERY TWELVE HOURS NEEDED FOR PAIN 60 tablet 3 02/20/20 25 Active Lidoderm 5 % patchIndications :Closed supracondylar fracture of right humerus with routine healing APPLY 2 PATCHES TO SKIN. LEAVE ON FOR 12 HOURS, THEN OFF FOR 12 HOURS DIRECTED FOR PAIN. 60 patch 3 03/09/20 25 Active Diclofenac Sodium 1 % gel APPLY 2 GRAM'S TO AFFECTED AREA(s) TWICE DAILY NEEDED 100 g 3 03/16/20 25 Active baclofen (Lioresal) 10 MG tabletIndication s:Muscle spasm TAKE ONE TABLET THREE TIMES DAILY IN THE MORNING, AT NOON, AND AT BEDTIME NEEDED FOR MUSCLE SPASMS 60 tablet 3 03/30/20 25 Active cetirizine (ZyrTEC) 10 MG tablet Take 1 tablet (10 mg) by mouth Once per day. 90 tablet 3 03/30/20 25 Active venlafaxine XR (Effexor XR) 75 MG 24 hr capsule Take 1 capsule (75 mg) by mouth Once per day. 30 capsule 3 03/30/20 25 Active lisinopril (Prinivil) 10 MG tablet Take 1 tablet (10 mg) by mouth Once per day. 90 tablet 3 03/30/20 25 026 Active Artificial Tears ophthalmic solution Administer 1 drop into the left eye every 2 (two) hours if needed (dry eye). 15 mL 2 04/20/20 25 026 Active clotrimazole (Lotrimin) 1 % cream APPLY TOPICALLY TO AFFECTED AREA(s) TWICE DAILY FOR 28 DAYS 30 g 05/07/20 25 Active ARIPiprazole (Abilify) 2 MG tablet TAKE ONE TABLET BY MOUTH ONCE DAILY 30 tablet 1 05/09/20 25 Active polyvinyl alcohol (Liquifilm Tears) 1.4 % ophthalmic solutionIndicati ons:Corneal ulcer of left eye Administer 1 drop into the left eye if needed for dry eyes (As needed up to 5x/day. Can keep in the fridge for improved comfort on instillation. ). 15 mL 1 05/21/20 25 Active hydrOXYzine HCl (Atarax) 50 MG tabletIndication s:Anxiety disorder, unspecified type TAKE ONE TABLET EVERY 6 HOURS NEEDED FOR ANXIETY 60 tablet 3 06/29/20 25 Active gabapentin (Neurontin) 400 MG capsuleIndicatio ns:Polyarthralgi a TAKE ONE CAPSULE BY MOUTH THREE TIMES DAILY 90 capsule 1 07/03/20 25 Active naproxen (Naprosyn) 500 MG tabletIndication s:Closed supracondylar fracture of right humerus with routine healing TAKE ONE TABLET TWICE DAILY IN THE MORNING AND AT BEDTIME WITH FOOD NEEDED FOR PAIN 30 tablet 1 07/03/20 25 Active hydrOXYzine HCl (Atarax) 50 MG tabletIndication s:Anxiety disorder, unspecified type Take 1 tablet (50 mg) by mouth every 6 (six) hours if needed for anxiety. 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 Assessment & Plan (06/21/2025 3:55 PM EDT): Referral to eye care, supportive measures reviewed Hemorrhoids 02/02/2025 Anxiety with depression 02/02/2025 Assessment & Plan (02/02/2025 4:23 PM EDT): Continue to follow-up with her therapist I will refer her to [facility] psych provider Acute maxillary sinusitis 02/02/2025 Assessment & Plan (02/02/2025 4:22 PM EDT): Patient reports in the past she has been taking Z-Shlomo for her sinusitis and it works really good for her, I decided today to prescribe her Z-Shlomo and report back if symptoms are persisting or worse Polyarthralgia 02/02/2025 Assessment & Plan (02/02/2025 4:22 PM EDT): I will follow-up on her gabapentin to 400 mg 3 times a day, I advised to follow- up with PCP Thyrotoxicosis with thyrotoxic crisis 09/07/2024 Assessment & Plan (09/07/2024 10:07 PM EDT): On propranolol + Methimazole, fu by [facility] endocrinology. We'll get OV notes sp hospital [...] no appointment has been made. Currently under [facility] care to assist with SDOH needs. Lack [...] MH services received in the past with [facility], currently she's not satisfied with [facility]. Pt opted for same-day appointments with [facility] (information given. Cheryl screened positive for SDOH [...] , Patient to reach out to [facility] team as needed, and Patient to reach out to [facility] as needed Pt prefers to be self-referred for OP individual therapy and psychiatry to the [facility] programs. Pt was offered external referral; clinician informed about wait times and options to receive MH services through [facility] intake. Assessment & Plan (03/09/2024 3:06 PM [...] MH services received in the past with [facility], currently she's not satisfied with [facility]. Pt opted for same-day appointments with [facility] [...] , Patient to reach out to [facility] team as needed, and Patient to reach out to [facility] as needed Pt prefers to be self-referred for OP individual therapy and psychiatry to the [facility] programs. Pt was offered external referral; clinician informed about wait times and options to receive MH services through [facility] intake. Assessment & Plan (10/26/2023 10:38 AM EST): PLAN: Continue with current services (defined as services in the past 12 months) , Behavioral Health Integration Plan Patient Self Plan Patient to reach out to [facility] team as needed, Patient to engage in OP therapy , and Patient to follow-up with external team, clinician to reach our to current therapist for Cheryl at [facility] to support process of reconnecting with psych [...] in 05/2024). Pt was self-referred to [facility] programs, but reports no appointment has been made. Currently under CM/[facility] care to assist with SDOH needs. Lack [...] MH services received in the past with [facility], currently she's not satisfied with [facility]. Pt opted for same-day appointments with [facility] (information given. Cheryl screened positive for SDOH [...] intervention , Patient to [facility] team as needed, and Patient to reach out to [facility] as needed Pt prefers to be self-referred for OP individual therapy and psychiatry to the [facility] programs. Pt was offered external referral; clinician informed about wait times and options to receive MH services through [facility] intake. Resolved Problems Problem Noted Date Diagnosed [...] 10:16 AM EST): Wants to fu with [facility] Dr Jj instead of [facility], referral sent. Continue OT by [facility] [...] Encounters Date Type Department Care Team Description 07/10/2025 Patient Outreach [facility] [address] [place] [phone] Aliza Paul, Care Coordination (CM/CHW outreach) 07/07/2025 Refill [facility] [address] [place] [address] Aliza Paul DO 07/03/2025 Refill [facility] [address] [place] [address] Aliza Paul DO Polyarthralgia; Closed supracondylar fracture of right humerus with routine healing 06/29/2025 Refill [facility] [address] [place] [address] Aliza Paul DO Anxiety disorder, unspecified type 06/21/2025 Telephone [facility] [address] [place] [address] Aliza Paul DO ER Follow-up 06/19/2025 Patient Outreach [address] [address] Aliza Paul DO 06/18/2025 Orders Only GENERIC EXTERNAL DATA DEPARTMENT Provider, Generic External Data 06/13/2025 Patient Outreach [facility] [address] [place] [phone] Aliza Paul DO Care Coordination (CM/CHW outreach) 06/12/2025 Telephone [facility] OPTOM[facility] [address] [place] [phone] Krystyna Hicks, OD 06/08/2025 Telephone [facility] [address] [place] [phone] Aliza Paul DO Verbal Order 06/07/2025 Telephone [facility] [address] [place] [address] Aliza Paul DO 06/06/2025 Telephone [facility] [address] [place] [phone] Aliza Paul DO PT1 06/06/[address] [address] Aliza Paul DO verbal orders needed 06/05/2025 Telephone [facility] [address] [place] [phone] Aliza Paul DO Chart Prep 05/31/2025 Patient Outreach [facility] [address] [place] [phone] Aliza Paul DO 05/30/2025 Orders Only GENERIC EXTERNAL DATA DEPARTMENT Provider, Generic External Data 05/28/2025 3:30 PM EDT Office Visit [facility] [address] [place] [address] Krystyna Hicks, OD Corneal ulcer of left eye (Primary Dx); 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; Abraham's palsy 05/28/2025 Travel 05/23/2025 Telephone [facility] [address] [place] [phone] Aliza Paul DO Call Back Request 05/21/2025 1:15 PM EDT Office Visit [facility] [address] [place] [phone] Krystyna Hicks, OD Corneal ulcer of left eye (Primary Dx); 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; Abraham's palsy; Regular astigmatism, bilateral 05/21/2025 Travel 05/21/2025 Patient Outreach [facility] [address] [place] [phone] Aliza Paul DO 05/15/2025 3:30 PM EDT Office Visit [facility] [address] [place] [phone] Taylor Rendon NP Abraham's palsy (Primary Dx) 05/15/2025 Travel 05/08/2025 Refill [facility] [address] [place] [address] Aliza Paul DO 05/07/2025 Telephone [facility] [address] [place] [phone] Rosmery Jacob RN VNA REFERRAL 05/06/2025 Refill [facility] [address] [place] [address] Delmis Cat MD 05/04/2025 9:30 AM EDT Telemedicine [facility] [address] [place] [address] Karlie Parks RN Need for assistance with personal care 05/04/2025 Travel 05/02/2025 Patient Outreach [address] [address] Aliza Paul, 05/01/[address] [address] Aliza Paul DO Letter Request 05/01/2025 Orders Only GENERIC EXTERNAL DATA DEPARTMENT Provider, Generic External Data 04/30/2025 Patient Outreach [address] [address] Aliza Paul, 04/30/2025 Telephone [facility] [address] [place] [address] Aliza Paul DO ER Follow-up 04/27/2025 Orders Only GENERIC EXTERNAL DATA DEPARTMENT Provider, Generic External Data 04/25/2025 Outside Procedure [facility] [address] [place] [phone] Jayashree Narayan, OD Presbyopia (Primary Dx) 04/24/[address] [address] Aliza Paul DO Urology office 04/24/[address] [address] Aliza Paul DO Results 04/23/[address] [address] Hilaria Brewer, VP [employer] Follow-up 04/20/2025 11:45 AM EDT Office Visit [address] [address] Aliza Paul DO Abraham's palsy (Primary Dx); Neurogenic bladder; History of hemorrhagic cerebrovascular accident (CVA) with residual deficit 04/20/2025 9:15 AM EDT Office Visit [facility] [address] [place] [phone] Jayashree Narayan, OD Hyperopia of both eyes (Primary Dx) 04/20/2025 Travel 04/19/[address] [address] Aliza Paul DO 04/19/2025 Patient Outreach [address] [address] Aliza Paul DO Care Coordination (CM/CHW outreach) 04/19/2025 Patient Outreach [address] [address] Aliza Paul DO Care Coordination (CHW Chart Review) 04/19/2025 Patient Outreach [address] [address] Aliza Paul DO Care Management (C3CM- chart review) 04/19/2025 Patient Outreach [address] [address] Aliza Paul DO 04/17/[address] [address] Aliza Paul DO Closed supracondylar fracture of right humerus with routine healing 04/16/[address] [address] Aliza Paul DO Appointment Rescheduled 04/12/2025 Telephone [facility] [address] [place] [address] Aliza Paul DO Med Refill 04/11/[address] [address] Aliza Paul DO Chart Prep 04/10/2025 Patient Outreach [address] [address] Aliza Paul DO Care Coordination (C3CM/CHW Lesley Ingram, TC #2 initial outreach attempt_declined) from Last 3 Months Immunizations Immunization Administration Dates Next Due DTaP 09/06/2022 Influenza [...] Sign Reading Time Taken Comments Blood Pressure 126/83 05/15/2025 3:36 PM EDT Pulse 84 05/15/2025 3:36 PM EDT Temperature 36.3 C (97.3 F) 05/15/2025 3:36 PM EDT Respiratory Rate 18 05/15/2025 3:36 PM EDT Oxygen Saturation 97% 05/15/2025 3:36 PM EDT Inhaled Oxygen Concentration - - Weight 83.9 kg (185 lb) 05/15/2025 3:36 PM EDT Height 160 cm (5' 3 ) 05/15/2025 3:36 PM EDT Body Mass Index 32.77 05/15/2025 3:36 PM EDT Plan of Treatment Upcoming Encounters Date Type Department Care Team (Late st Contact Info) Description 10/09/2025 1:30 PM EST Office Visit [facility] [address] [place], [place] [phone] Krystyna Hicks, OD [address] [place] [address] Health Maintenance Due Date Last Done Comments [...] (2 of 2 - PCV) 12/16/2022 12/16/2021 Depression Monitoring 02/20/2025 08/22/2024, 10/15/2 024 SDOH Screening 05/17/2025 05/17/2024 COVID-19 Vaccine ( season) 2025 10/17/2022, 10/17/2022 Influenza Vaccine (#1) 2025 7, 09/23/2017, 09/23/2017, Additional history exists Disability Screening 02/02/2026 02/02/2025 Tobacco Screening 04/20/2026 04/20/2025 Lipid Panel 04/20/2030 04/20/2025, 01/28/2022 DTaP/Tdap/Td Vaccines (4 - Td or [...] URINALYSIS, COMPLETE, WITH REFLEX TO CULTURE Routine 06/18/2025 4:48 PM EDT CULTURE, URINE, ROUTINE Routine 06/18/2025 12:00 AM EDT URINALYSIS, COMPLETE, WITH REFLEX TO CULTURE Routine 05/30/2025 7:22 PM EDT CULTURE, URINE, ROUTINE Routine 05/30/2025 12:00 AM EDT BASIC METABOLIC PANEL Routine 05/01/2025 12:04 PM EDT HEPATIC FUNCTION PANEL Routine 05/01/2025 12:04 PM EDT CBC WITH AUTO DIFFERENTIAL Routine 05/01/2025 12:04 PM EDT CULTURE, URINE, ROUTINE Routine 04/27/2025 7:52 PM EDT URINALYSIS, COMPLETE, WITH REFLEX TO CULTURE Routine 04/27/2025 6:08 PM EDT SLIDE REVIEW Routine 04/27/2025 3:42 PM EDT BASIC METABOLIC PANEL Routine 04/27/2025 3:42 PM EDT CBC WITH AUTO DIFFERENTIAL Routine 04/27/2025 3:42 PM EDT CBC Routine 04/20/2025 12:48 PM EDT Essential hypertension BASIC METABOLIC PANEL Routine 04/20/2025 12:48 PM EDT Essential hypertension HEMOGLOBIN A1C Routine 04/20/2025 12:48 PM EDT Essential hypertension HEPATIC FUNCTION PANEL Routine 04/20/2025 12:48 PM EDT Essential hypertension TSH Routine 04/20/2025 12:48 PM EDT Essential hypertension LIPID PANEL, STANDARD Routine 04/20/2025 12:48 PM EDT Essential hypertension VITAMIN D,25-OH,TOTAL,IA Routine 04/20/2025 12:48 PM EDT Essential hypertension T4, FREE Routine 04/20/2025 12:48 PM EDT Essential hypertension ZZZ HISTORICAL HEPATITIS C AB W/REFL TO HCV RNA, QN, PCR Routine 01/28/2022 10:33 AM EDT HIV 1/2 ANTIGEN/ANTIBODY, FOURTH GENERATION W/RFL Routine 01/28/2022 10:33 AM EDT ZZZ HISTORICAL HPV E6/E7 RFLX ROMA 16 18/45 Routine 12/10/2017 12:51 PM EST PANORAMIC RADIOGRAPHIC IMAGE Routine 12/01/2010 12:00 AM EST from Last 3 Months or Most Recently Relevant to Health Maintenance Results * (ABNORMAL) Urinalysis, Complete, with Reflex to Culture (06/18/2025 4:48 PM EDT) Only the most recent of3 resultswithin the time period is included. Color Urine Yellow [facility] Appearance Urine Cloudy [facility] PH 6.0 5.0 - 9.0 [facility] Glucose Urine UA Negative Negative mg/dL [facility] Urine Blood Large (3+)(A) Negative [facility] Specific [place] - Urine 1.020 1.005 - 1.025 [facility] Urine Protein 100 (2+)(A) Neg-Trace mg/dL [facility] Urine Ketones Negative Negative mg/dL [facility] Nitrite Urine Negative Negative [facility] Leukocyte Esterase Urine Moderate (2+)(A) Negative [facility] RBC Urine >20(A) 0 - 2 /HPF [facility] Urine WBC >50(A) 0 - 5 /HPF [facility] Urine Squamous Epithelial Cell 0-2 0 - 2 /HPF [facility] CALCIUM OXALATE CRYSTAL, UR Present [facility] Urine Bacteria 3+ None Seen [facility] Hyaline Casts, Urine 0-2 0 - 2 /LPF [facility] 06/18/2025 4:48 PM EDT 06/18/2025 4:52 PM EDT Narrative [facility] - 06/18/2025 5:08 PM EDT [id number], [place] us Generic External Data Provider LAB URINE ORDERAB LES Final Result Performing Organization Address City/[facility]/ZIP Co de Phone Number [facility] [address] [place] [address] [phone] * Culture, Urine, Routine (06/18/2025 12:00 AM EDT) Only the most recent of3 resultswithin the time period is included. Urine Urine specimen from urinary conduit / Unknown 06/18/2025 06/18/2025 Comment:Urine Cath Narrative [facility] - 06/20/2025 10:11 AM EDT Urine Culture Report Result Urine Culture > 100,000 cfu/ml Urine Culture Mixed bacterial nhan characteristic of Urine Culture urogenital contamination. Specimen Source: Urine Catheterized Generic External Data Provider LAB MICROBIOLOGY - GENERAL ORDERABLES Final Result Performing Organization Address City/[facility]/ZIP Co de Phone Number [facility] [address] [place] [address] [phone] * (ABNORMAL) CBC auto differential (05/01/2025 12:04 PM EDT) Only the most recent of2 resultswithin the time period is included. White Blood Count 13.4(H) 4.8 - 10.8 X10*3/uL [facility] Red Blood Count 4.78 4.20 - 5.50 X10*6/uL [facility] Hemoglobin 13.2 12.0 - 16.0 g/dl [facility] Hematocrit 40.0 37.0 - 47.0 % [facility] Mean Corpuscular Volume 83.7 80.0 - 98.0 fL [facility] Mean Corpuscular Hemoglobin 27.6 27.0 - 33.0 pg [facility] Mean Corpuscular HGB Conc 33.0 31.0 - 35.0 g/dl [facility] Red Cell Distribution Width 14.6 11.0 - 16.0 % [facility] Platelet Count 299 160 - 400 X10*3/uL [facility] Mean Platelet Volume 9.1(L) 9.4 - 12.3 fL [facility] Neutrophils Percent Auto 64.6 45 - 73 % [facility] Imm Gran Pct Auto 0.4 0.0 - 0.4 % [facility] Lymphocytes Percent Auto 28.4 20 - 40 % [facility] Monocytes Percent Auto 4.8 2 - 11 % [facility] Eosinophils Percent Auto 1.6 0 - 4 % [facility] Basophils Percent Auto 0.2 0 - 2 % [facility] NRBC Pct Auto 0.0 0.0 - 0.2 /100WBC [facility] Neutrophils Absolute Auto 8.6(H) 2.0 - 8.3 x10*3/uL [facility] Imm Gran Abs Auto 0.06(H) 0.00 - 0.03 X10*3/uL [facility] Lymphocytes Absolute Auto 3.8 1.2 - 4.9 X10*3/uL [facility] Monocytes Absolute Auto 0.6 0.1 - 1.2 X10*3/uL [facility] Eosinophils Absolute Auto 0.2 0.0 - 0.4 X10*3/uL [facility] Basophils Absolute Auto 0.0 0.0 - 0.2 X10*3/uL [facility] NRBC Abs Auto 0.000 0.0 - 0.012 X10*3/uL [facility] 05/01/2025 12:0 4 PM EDT 05/01/2025 12:07 PM EDT us Generic External Data Provider LAB BLOOD ORDERAB LES Final Result [facility] [address] [place] [address] [phone] * (ABNORMAL) Hepatic Function Panel (05/01/2025 12:04 PM EDT) Only the most recent of2 resultswithin the time period is included. Bilirubin, Total 0.5 0.0 - 1.0 mg/dL [facility] Bilirubin, Direct 0.1 0.0 - 0.5 mg/dL [facility] Aspartate Amino Transferase 12 5 - 31 U/L [facility] Alanine Aminotransferase 9 0 - 31 U/L [facility] Total Protein 6.0(L) 6.5 - 8.0 g/dL [facility] Albumin Level 3.7 3.5 - 5.0 g/dL [facility] Alkaline Phosphatase 57 39 - 117 U/L [facility] 05/01/2025 12:0 4 PM EDT 05/01/2025 12:07 PM EDT us Generic External Data Provider LAB BLOOD ORDERAB LES Final Result [facility] [address] [place] [phone] * (ABNORMAL) Basic Metabolic Panel (05/01/2025 12:04 PM EDT) Only the most recent of3 resultswithin the time period is included. Sodium 142 135 - 145 mmol/L [facility] Potassium 4.1 3.3 - 5.1 mmol/L [facility] Chloride 111(H) 96 - 108 mmol/L [facility] Carbon Dioxide 23 22 - 29 mmol/L [facility] Anion Gap 12 12 - 20 [facility] Urea Nitrogen (BUN) 23(H) 9 - 16 mg/dL [facility] Creatinine, Serum 0.78 0.5 - 1.4 mg/dL [facility] Creatinine Clr Calc Pharmacy 81.6 [facility] Comment:Provided height and weight: 160.02 cm,87.8 kg.eGFR (calculated from the MDRD study equation) and eCrCl(calculated from the Cockcroft-Gault equation) are based ondifferent parameters and may not yield comparable results.If eCrCl result is absurd, please check patient'sheight/weight. Estimated Glomerular Filt Rate >60 [facility] Comment:Chronic Kidney Disea se: Estimated GFR < 60 mL/min/[id number] Kidney Disease: Estimated GFR < 15 mL/min/1.73m2 Glucose 82 60 - 115 mg/dL [facility] Calcium 9.2 8.4 - 10.2 mg/dL [facility] 05/01/2025 12:0 4 PM EDT 05/01/2025 12:07 PM EDT Generic External Data Provider LAB BLOOD ORDERAB LES Final Result Performing Organization Address [facility] Co de Phone Number [facility] [address] [place] [phone] * Slide Review (04/27/2025 3:42 PM EDT) Slide Review VERIFIED [facility] 04/27/2025 3:42 PM EDT 04/27/2025 3:44 PM EDT Generic External Data Provider LAB BLOOD ORDERAB LES Final Result Performing Organization Address [facility] de Phone Number [facility] [address] [place] [phone] * Vitamin D, 25-Hydroxy, Total, Immunoassay (04/20/2025 12:48 PM EDT) Vitamin D 25-OH Total 43.9 >30 ng/mL [facility] Comment: Health Based Reference Values*< 20 ng/mL Rwrrlsabu55-38 ng/mL Insufficient> 30 ng/mL Sufficient*Sal MIRANDA. N Engl J Med. 2007;357:266-280There is no well-established upper level of normal vitamin Dlevels. Some laboratories use 50 ng/mL as an upper limit ofnormal. However, toxicity is patient-dependent and may occurat any level. Careful correlation with the patient'spresentation is necessary and, if there is concern forvitamin D toxicity, treatment should be consideredirrespective of the serum level.Care must be taken in interpreting Vitamin D results fromdifferent laboratories and methodologies. Published datademonstrated that results from patients undergoinghemodialysis may show a negative bias when tested withvarious automated 25-OH vitamin D assays when compared toLC-MS/MS.When testing samples from patients whose predominant form ofVitamin D is Vitamin D2, such as patients receiving VitaminD2 supplementation, results that are subtherapeutic shouldbe confirmed with another method such as LC-MS/MS. Blood Venous blood specimen / Unknown 04/20/2025 12:48 PM EDT 04/20/2025 4:07 PM EDT us Aliza Paul DO LAB BLOOD ORDERABLES Final R esult [facility] [address] [place] [address] [phone] * (ABNORMAL) CBC (04/20/2025 12:48 PM EDT) White Blood Count 10.5 4.8 - 10.8 X10*3/uL [facility] Red Blood Count 4.82 4.20 - 5.50 X10*6/uL [facility] Hemoglobin 12.9 12.0 - 16.0 g/dl [facility] Hematocrit 39.9 37.0 - 47.0 % [facility] Mean Corpuscular Volume 82.8 80.0 - 98.0 fL [facility] Mean Corpuscular Hemoglobin 26.8(L) 27.0 - 33.0 pg [facility] Mean Corpuscular HGB Conc 32.3 31.0 - 35.0 g/dl [facility] Red Cell Distribution Width 13.1 11.0 - 16.0 % [facility] Platelet Count 350 160 - 400 X10*3/uL [facility] Mean Platelet Volume 10.1 9.4 - 12.3 fL [facility] NRBC Pct Auto 0.0 0.0 - 0.2 /100WBC [facility] NRBC Abs Auto 0.000 0.0 - 0.012 X10*3/uL [facility] Blood Venous blood specimen / Unknown 04/20/2025 12:48 PM EDT 04/20/2025 4:07 PM EDT Aliza Paul LAB BLOOD ORDERABLES Final R esult Performing Organization Address [facility] Co de Phone Number [facility] [address] [place] [phone] * (ABNORMAL) TSH (04/20/2025 12:48 PM EDT) Thyroid Stimulating Hormone <0.01(L) 0.32 - 4.0 uIU/mL [facility] Comment:TSH 3rd Generation ( [employer]) Blood Venous blood specimen / Unknown 04/20/2025 12:48 PM EDT 04/20/2025 4:07 PM EDT Aliza Paul LAB BLOOD ORDERABLES Final R esult Performing Organization Address [facility] Co de Phone Number [facility] [address] [place] [phone] * T4, Free (04/20/2025 12:48 PM EDT) Free T4 (Free Thyroxine) 1.34 0.71 - 1.85 ng/dL [facility] Blood Venous blood specimen / Unknown 04/20/2025 12:48 PM EDT 04/20/2025 4:07 PM EDT Aliza Paul LAB BLOOD ORDERABLES Final R esult Performing Organization Address [facility] Co de Phone Number [facility] [address] [place] [phone] * Hemoglobin A1c (04/20/2025 12:48 PM EDT) Hemoglobin A1c 5.6 <6.0 % [facility] Comment:Hemoglobin A1C Refer ence Range Adults: 4.8 - 6.0 % Non diabetic: < 6.0 % Goal: < 7.0 %Additional Action Suggested: > 8.0 %Note: Hemoglobin A1c results are invalid for patients with abnormal amounts of HbF. Blood transfusions may impact the HbA1c concentration in the patient sample. Estimated Average Glucose 114 mg/dL [facility] Comment:eAG = Estimated ave rage glucose which is %A1C expressed asaverage glucose, using the formula of the K3G-RgumthxCtdpmgk Glucose study (ADAG), Diabetes Care, Vol.31,#8,Jun. 2007 Blood Venous blood specimen / Unknown 04/20/2025 12:48 PM EDT 04/20/2025 4:07 PM EDT us Aliza Paul DO LAB BLOOD ORDERABLES Final R esult [facility] [address] [place] [phone] * (ABNORMAL) Lipid Panel, Standard (04/20/2025 12:48 PM EDT) Triglycerides 72 <150 mg/dL [facility] Comment:Desirable Triglyceri de: less than 150 mg/dLBorderline High Triglyceride 150-199 mg/dLHigh Triglyceride: 200-499 mg/dLVery High Triglyceride: greater than or equal to 5OO mg/dL Cholesterol 164 <200 mg/dL [facility] Comment:Desirable Cholestero l: less than 200 mg/dLBorderline High Cholesterol: 200-239 mg/dLHigh Cholesterol: greater than 239 mg/dL LDL Cholesterol Calculated 105(H) <100 mg/dL [facility] Comment:Desirable LDL: less than 100 mg/dLNear Optimal/Above Optimal LDL: 110- 129 mg/dLBorderline High LDL: 130-159 mg/dLHigh LDL: 160-189 mg/dLVery High LDL: greater than or equal to 190 mg/dL HDL Cholesterol 45 >40 mg/dL [facility] Comment:Desirable HDL: great er than 40 mg/dL Note: This HDL assay may give artificially low results in patients with liver disease. Blood Venous blood specimen / Unknown 04/20/2025 12:48 PM EDT 04/20/2025 4:07 PM EDT Aliza Beverly SMALL LAB BLOOD ORDERABLES Final R esult [facility] [address] [place] [phone] * HEPATITIS C AB W/REFL TO HCV RNA, QN, PCR (01/28/2022 10:33 AM EDT) HEPATITIS C ANTIBODY NON-REACT ERNESTO NON-REACT ERNESTO [facility] INDEX 0.01 <1.00 [facility] Comment: HCV antibody was non-reactive. There is no laboratory evidence of HCV infection. In most cases, no further action is required. However, if recent HCV exposure is suspected, a test for HCV RNA (test code 81223) is suggested. For additional information please refer to http://Isabella [email or web address]/faq/EON92g4 (This link is being provided for informational/ educational purposes only.) 01/28/2022 10:3 3 AM EDT Aliza Beverly SMALL HISTORICAL/NON ORDERABLE LAB S Final Result Performing Organization Address City/[facility]/ZIP Co de Phone Number [facility] [address] * HIV 1/2 ANTIGEN/ANTIBODY,FOURTH GENERATION W/RFL (01/28/2022 10:33 AM EDT) Pathologist [facility] HIV-1/2 ANTIGEN AND ANTIBODIES, 4TH GENERATION W/ REFLEX NON-REACT ERNESTO NON-REACT ERNESTO [facility] Comment: HIV-1 antigen and HIV-1/HIV-2 antibodies were not detected. There is no laboratory evidence of HIV infection. PLEASE NOTE: This information has been disclosed to you from records whose confidentiality may be protected by state law. If your state requires such protection, then the state law prohibits you from making any further disclosure of the information without the specific written consent of the person to whom it pertains, or as otherwise permitted by law. A general authorization for the release of medical or other information is NOT sufficient for this purpose. For additional information please refer to http://Isabella [email or web address]/faq/IGU381 (This link is being provided for informational/ educational purposes only.) The performance of this assay has not been clinically validated in patients less than 2 years old. 01/28/2022 10:3 3 AM EDT Aliza Paul DO LAB BLOOD ORDERABLES Final R esult [facility] [address] * HPV E6/E7 RFLX ROMA 16 18/45 (12/10/2017 12:51 PM EST) ADDITIONAL TESTING Not indicated () [facility] Comment: Test Performed by [employer], [facility] [facility], [address] [place] [address] Ulises Silva M.D., Ph.D., Director of Laboratories , [facility] [id number] HPV 16 RNA Test not performed [facility] HPV 18/45 RNA Test not performed [facility] HPV mRNA E6/E7 Not Detected NOT DETECTED [facility] Comment: This test was performed using the APTIMA(R) HPV Assay ([employer] This assay detects E6/E7 viral messenger RNA (mRNA) from 14 high-risk HPV types (16,18,31,33,35,39,45,51, 52,56,58,59,66,68). For additional information please refer to: http://education.[employer] group/faq/HQC150t0 (This link is being provided for informational/ educational purposes only.) Please note: Effective 07/20/2016, HPV testing will be performed using [employer]'s APTIMA test which targets mRNA. Detecting mRNA instead of DNA, as in older methods, offers significant improvements in specificity. 12/10/2017 12:5 1 PM EST Aliza Paul DO HISTORICAL/NON ORDERABLE LAB S Final Result [facility] [address] from Last 3 Months or Most Recently Relevant to Health Maintenance Insurance [facility] MEDICAID STAND ADULT * Guarantor: Cheryl Garcia Account Type Relation to Patient Date of Phone Billing Address Personal/Family Self [address] Care Teams Associate Dean Of Students Relationship Specialty Start Date End Date Aliza Paul DO [address] [place] [address] PCP - General Family Medicine 02/23/12 Lesley Ingram Community Health Worker 05/17/24 Rocio Ingram, RN [address] [place] [address] [place] [address] Registered Nurse Family Medicine 04/19/25 Kathrine Blank 04/19/25 [facility] 05/29/25
--- OUTSIDE RECORDS SUMMARY | 2025-07-11 12:24 | XMS_ITS | Encounter Summary ---
Author Organization [employer] Address [address] [facility] 7t [place] [address] Care Team Providers Care District Court Judge Name Role Phone Aliza Paul DO Primary Care Provider [phone] Lesley nIgram Unavailable Rosi Castro RN Unavailable [phone] Rosi Castro RN Unavailable [phone] Lesley Ingram Unavailable Rocio Ingram RN Unavailable [phone] Kathrine Blank Unavailable Reason for Visit * Reason Comments Med Refill Encounter Details Date Type Department Care Team (Late st Contact Info) Description 08/18/2024 Refill [facility] MEDICINE [address] [place], [place] [phone] Aliza Paul DO [address] [place], [place] [phone] Closed supracondylar fracture of right humerus with [...] 10/09/2025 1:30 PM EST Office Visit [facility] OPTOMETRY [address] [place] [address] Krystyna Hicks OD [address] [place] [address] documented as of this encounter Visit Diagnoses Diagnosis Closed supracondylar fracture of right humerus with routine healing documented in this encounter Additional Health Concerns Assessment Noted Time PHQ-9 Depression Total Score: 4 05/02/20 24 9:14 AM EDT documented as of this encounter Care Teams District Court Judge Relationship Specialty Start Date End Date Aliza Paul DO [address] [place] [address] PCP - General Family Medicine 02/23/12 Lesley Ingram Community Health Worker 05/17/24 Rosi Castro, R[place] [address] [place] [address] Digital Production Operator 05/17/24 03/05/25 Rosi Castro RN [address] [place] [address] Registered Nurse Family Medicine 04/06/25 04/10/25 Lesley Ingram 04/06/25 04/10/25 Rocio Ingram RN [address] [place] [address] Registered Nurse Family Medicine 04/19/25 Kathrine Blank 04/19/25 [facility] 07/27/24 05/28/25 [facility] 05/29/25 documented as of this encounter
--- OUTSIDE RECORDS SUMMARY | 2025-07-11 12:24 | XMS_ITS | Encounter Summary ---
Author Organization [employer] Address 75 [facility] 7t [place] [address] Care Team Providers Care Internet Architect Name Role Phone Aliza Paul DO Primary Care Provider [phone] Lesley Ingram Unavailable Rosi Castro RN Unavailable [phone] Rosi Castro RN Unavailable [phone] Lesley Ingram Unavailable Rocio Ingram RN Unavailable [phone] Kathrine Blank Unavailable Reason for Visit * Reason Comments Med Refill Encounter Details Date Type Department Care Team (Late st Contact Info) Description 09/29/2024 Refill [facility] MEDICINE [address] [place], [place] [phone] Aliza Paul DO [address] [place], [place] [phone] Closed supracondylar fracture of right humerus with [...] Description 10/09/2025 1:30 PM EST Office Visit [facility] OPTOMETRY [address] [place] [address] Krystyna Hicks, OD [address] [place] [address] documented as of this encounter Visit Diagnoses Diagnosis Closed supracondylar fracture of right humerus with routine healing Muscle spasm Spasm of muscle documented in this encounter Additional Health Concerns Assessment Noted Time PHQ-9 Depression Total Score: 15 024 9:20 AM EDT documented as of this encounter Care Teams Internet Architect Relationship Specialty Start Date End Date Aliza Paul DO [address] [place] [address] PCP - General Family Medicine 02/23/12 Lesley Ingram Community Health Worker 05/17/24 Rosi Castro RN [address] [place] [address] Docking Saw Operator 05/17/24 03/05/25 Rosi Castro RN [address] [place] [address] Registered Nurse Family Medicine 04/06/25 04/10/25 Lesley Ingram 04/06/25 04/10/25 Rocio Ingram RN [address] [place] [address] Registered Nurse Family Medicine 04/19/25 Kathrine Blank 04/19/25 [facility] Home Care 07/27/24 05/28/25 [facility] 05/29/25 documented as of this encounter
--- OUTSIDE RECORDS SUMMARY | 2025-07-11 12:24 | XMS_ITS | Encounter Summary ---
Author Organization [employer] Address 75 [facility] 7t [place] [address] Care Team Providers Care Management Expert Name Role Phone Aliza Paul DO Primary Care Provider [phone] Lesley Ingram Unavailable Rocio Ingram RN Unavailable [phone] Kathrine Blank Unavailable Reason for Visit * Reason Comments Care Coordination CM/CHW outreach Encounter Details Date Type Department Care Team (Latest Contact Info) Description 07/10/2025 Patient Outreach [facility] MEDICINE [address] [place], [place] [phone] Aliza Paul DO [address] [place], [place] [phone] Care Coordination (CM/CHW outreach) Social History Tobacco Use Types Packs/Day Years [...] as of this encounter Progress Notes * Kathrine Blank - 07/10/2025 2:35 PM EDT CHW Kathrine Blank, placed outbound call to patient introducing herself from [facility] CM Department, in regards to offering services. Patient's name and was confirmed. Patient agreesto participate in program. Appt. for initial assessment scheduled for 07/30/25 @ 1PM tele with CM Rocio Ingram RN. CHW reinforced direct contact information or for any additional questions or concerns and extended clinic hours on Mondays and Wednesdays, and Walk-In Urgent Care Located in [facility] of [facility]. Patient provided with after-hours line for [facility], ,which offer night time triage service and option to transfer to holistic health practitioner provider if needed. Patient verbalizes understanding, and able to repeat back to junior underwriter. documented in this encounter Plan of Treatment Upcoming Encounters Date Type Department Care Team ([facility] st Contact Info) Description 10/09/2025 1:30 PM EST Office Visit [facility] OPTOMETRY [address] [place] [address] [phone] Krystyna Hicks, OD [address] [place] [address] documented as of this encounter Visit Diagnoses Not on filedocumented in this encounter Additional Health Concerns Assessment Noted Time PHQ-9 Depression Total Score: 15 024 9:20 AM EDT documented as of this encounter Care Teams Management Expert Relationship Specialty Start Date End Date Aliza Paul DO [address] [place] [address] PCP - General Family Medicine 02/23/12 Lesley Ingram Community Health Worker 05/17/24 Rocio Ingram, R[place]AR[place]ON [address] [place] [address] Registered Nurse Family Medicine 04/19/25 Kathrine Blank 04/19/25 [facility] 05/29/25 documented as of this encounter
--- OUTSIDE RECORDS SUMMARY | 2025-07-11 12:24 | XMS_ITS | Encounter Summary ---
Author Organization [employer] Address [address] [place] [address] 7t [place] [address] Care Team Providers Care Tacking Machine Operator Name Role Phone Aliza Paul DO Primary Care Provider Lesley Ingram Unavailable Rosi Castro RN Unavailable [phone] Rosi Castro RN Unavailable [phone] Lesley Ingram Unavailable Rocio Ingram RN Unavailable [phone] Kathrine Blank Unavailable Reason for Visit * Reason Onset Date Comments PT-1 12/11/2024 Encounter Details Date Type Department Care Team (Late st Contact Info) Description 12/11/2024 Telephone [facility] MEDICINE [address] [place], [place] [phone] Aliza Paul DO [address] [place], [place] [phone] PT-1 Social History Tobacco Use Types Packs/Day [...] Y/N: Yes Provider name or facility name: [address] [place] [address], [address], [place] [address] Urology and Orthopedic 230 [facility] Escort needed: Y/N: Yes Do you have a wheelchair: Y/N: Yes If yes- Manual or electric: Manual Visits: (4 x Month) documented in this encounter Plan of Treatment Upcoming Encounters Date Type Department Care Team ([facility] st Contact Info) Description 10/09/2025 1:30 PM EST Office Visit [facility] OPTOMETRY [address] [place] [address] Krystyna Hicks, OD [address] [place] [address] documented as of this encounter Visit Diagnoses Not on filedocumented in this encounter Additional Health Concerns Assessment Noted Time PHQ-9 Depression Total Score: 15 024 9:20 AM EDT documented as of this encounter Care Teams Tacking Machine Operator Relationship Specialty Start Date End Date Aliza Paul DO [address] [place] [address] PCP - General Family Medicine 02/23/12 Lesley Ingram Community Health Worker 05/17/24 Rosi Castro, R[place]AR[place]ON [address] [place] [address] Oil Well Cable Tool Driller 05/17/24 03/05/25 Rosi Castro RN [address] [place] [address] Registered Nurse Family Medicine 04/06/25 04/10/25 Lesley Ingram 04/06/25 04/10/25 Rocio Ingram RN [address] [place] [address] Registered Nurse Family Medicine 04/19/25 Kathrine Blank 04/19/25 [facility] 07/27/24 05/28/25 [facility] 05/29/25 documented as of this encounter
--- OUTSIDE RECORDS SUMMARY | 2025-07-11 12:24 | XMS_ITS | Encounter Summary ---
Author Organization [employer] Address 75 [facility] 7t [place] [address] Care Team Providers Care Gun Number Name Role Phone Aliza Paul DO Primary Care Provider [phone] Lesley Ingram Unavailable Rosi Castro RN Unavailable [phone] Rosi Castro RN Unavailable [phone] Lesley Ingram Unavailable Rocio Ingram RN Unavailable [phone] Kathrine Blank Unavailable Encounter Details Date Type Department Care Team (Late st Contact Info) Description 05/18/2024 Telephone [facility] MEDICINE [address] [place], [place] [phone] Aliza Paul DO [address] [place], [place] [phone] Social History Tobacco Use Types Packs/Day Years [...] the past 12 months, has t he [employer], gas, oil or water company threatened to [...] PM EST Office Visit [facility] OPTOMETRY [address] [place] [address] Krystyna Hicks OD [address] [place] [address] documented as of this encounter Visit Diagnoses Not on filedocumented in this encounter Additional Health Concerns Assessment Noted Time PHQ-9 Depression Total Score: 4 03/09/20 24 9:14 AM EDT documented as of this encounter Care Teams Gun Number Relationship Specialty Start Date End Date Aliza Paul DO [address] [place] [address] PCP - General Family Medicine 02/23/12 Lesley Ingram Community Health Worker 05/17/24 Rosi Castro RN [address] [place] [address] Airplane Refueler 05/17/24 03/05/25 Rosi Castro, RN [address] [place] [address] Registered Nurse Family Medicine 04/06/25 04/10/25 Lesley Ingram 04/06/25 04/10/25 Rocio Ingram RN 505 [place] [address] Registered Nurse Family Medicine 04/19/25 Kathrine Blank 04/19/25 [facility] 07/27/24 05/28/25 [facility] 05/29/25 documented as of this encounter
--- OUTSIDE RECORDS SUMMARY | 2025-07-11 12:24 | XMS_ITS ---
Author Organization [employer] Address [address] [place] [address] 7t [place] [address] Care Team Providers Care Cafeteria Helper Name Role Phone Aliza Paul DO Primary Care Provider [phone] Lesley Ingram Unavailable Rocio Ingram RN Unavailable [phone] Kathrine Blank Unavailable CHW Complex Status:Outreach In Progress (Enrolling) Start date:04/19/2025 Enrollment reason:ADT Feed Overview [facility] 04/18/25. Please outreach for enrollment. Case Team Name Relationship Phone Kathrine Blank(Responsible Staff) [phone] Continued Care and Services Coordination
--- OUTSIDE RECORDS SUMMARY | 2025-07-11 12:24 | XMS_ITS | Encounter Summary ---
Author Organization [employer] Address 75 [facility] 7t [place] [address] Care Team Providers Care Trade Promotion Analyst Name Role Phone Aliza Paul DO Primary Care Provider [phone] Lesley Ingram Unavailable Rosi Castro RN Unavailable [phone] Rosi Castro RN Unavailable [phone] Lesley Ingram Unavailable Rocio Ingram RN Unavailable [phone] Kathrine Blank Unavailable Reason for Visit * Reason Comments Med Refill Encounter Details Date Type Department Care Team (Late st Contact Info) Description 06/06/2024 Refill [facility] MEDICINE [address] [place], [place] [phone] Aliza Paul DO 230 [place], [place] [phone] Chronic nonintractable headache, unspecified headache type Social [...] PM EST Office Visit [facility] OPTOMETRY [address] [place] [address] Krystyna Hicks, OD [address] [place] [address] documented as of this encounter Visit Diagnoses Diagnosis Chronic nonintractable headache, unspecified headache type documented in this encounter Additional Health Concerns Assessment Noted Time PHQ-9 Depression Total Score: 4 03/09/20 24 9:14 AM EDT documented as of this encounter Care Teams Trade Promotion Analyst Relationship Specialty Start Date End Date Aliza Paul DO [address] [place] [address] PCP - General Family Medicine 02/23/12 Lesley Ingram Community Health Worker 05/17/24 Rosi Castro RN 505 [place] [address] Cartography Supervisor 05/17/24 03/05/25 Rosi Castro, RICHARDSON [address] [facility] [place] [address] Registered Nurse Family Medicine 04/06/25 04/10/25 Lesley Ingram 04/06/25 04/10/25 Rocio Ingram, RICHARDSON [address] [facility] [place] [address] Registered Nurse Family Medicine 04/19/25 Kathrine Blank 04/19/[address] [facility] 07/27/24 05/28/25 [facility] 05/29/25 documented as of this encounter
--- OUTSIDE RECORDS SUMMARY | 2025-07-11 12:24 | XMS_ITS | Encounter Summary ---
Author Organization [employer] Address [address] [facility] [address] [place] [address] Care Team Providers Care Oceanographic Meteorologist Name Role Phone Aliza Paul DO Primary Care Provider [phone] Lesley Ingram Unavailable Rosi Castro RN Unavailable [phone] Rosi Castro RN Unavailable [phone] Lesley Ingram Unavailable Rocio Ingram RN Unavailable [phone] Kathrine Blank Unavailable Encounter Details Date Type Department Care Team (Late st Contact Info) Description 03/15/2024 Telephone [facility] MED[facility] [address] [place], [place] [phone] Aliza Paul DO [address] [place], [place] [phone] Social History Tobacco Use Types Packs/Day Years [...] 03/15/2024 10:54 AM EDT TC on 03/09/24 [facility] to make a referral for AFC program, I had to leave a voicemail message on the intake referral VM. The VM stated someone would get back to me in 24-48 hours. TC today 03/15/24 to once again make a referral for patient for the AFC program, intake information given. Patient's insurance was verified and she needs to call [facility] as she has [facility] and they do not provide in home services like [employer] or AFC program. I called patient and she stated she was in the hospital at [facility] and had to have neck surgery. When I mentioned about her calling [facility] to straighten out the coverage she was not very pleasant and she told me to do it myself. I contacted Maricruz back at [facility] intake and referral dept and left voice mail message that patient was in the hospital at [facility]. documented in this encounter Plan of Treatment Upcoming Encounters Date Type Department Care Team (Late st Contact Info) Description 10/09/2025 1:30 PM EST Office Visit [facility] [address] [place], [place] [phone] Alanchelsie Krystyna, OD [address] [place] [address] documented as of this encounter Visit Diagnoses Not on filedocumented in this encounter Additional Health Concerns Assessment Noted Time PHQ-9 Depression Total Score: 4 03/09/20 24 9:14 AM EDT documented as of this encounter Care Teams Oceanographic Meteorologist Relationship Specialty Start Date End Date Aliza Paul DO [address] [place] [address] PCP - General Family Medicine 02/23/12 Lesley Ingram Community Health Worker 05/17/24 Rosi Castro RN [address] [place] [address] Orthodontic Technician Assistant 05/17/24 03/05/25 Rosi Castro, RICHARDSON [address] [place] [address] Registered Nurse Family Medicine 04/06/25 04/10/25 Lesley Ingram 04/06/25 04/10/25 Rocio Ingram RN [address] [place] [address] Registered Nurse Family Medicine 04/19/25 Kathrine Blank 04/19/25 [facility] 07/27/24 05/28/25 [facility] 05/29/25 documented as of this encounter
--- OUTSIDE RECORDS SUMMARY | 2025-07-11 12:25 | XMS_ITS | Encounter Summary ---
Author Organization [employer] Address [address] [facility] 7[address] [place] [address] Care Team Providers Care Television Installer Helper Name Role Phone Aliza Paul DO Primary Care Provider [phone] Lesley Ingram Unavailable Rocio Ingram RN Unavailable [phone] Kathrine Blank Unavailable Reason for Visit * Reason Comments Med Refill Encounter Details Date Type Department Care Team (Late st Contact Info) Description 07/07/2025 Refill [facility] MEDICINE [address] [place], [place] [phone] Aliza Paul DO [address] [place], [place] [phone] Social History Tobacco Use Types Packs/Day Years [...] 1:30 PM EST Office Visit [facility] OPTOMETRY [address] [place] [address] Krystyna Hicks, OD [address] [place] [address] documented as of this encounter Visit Diagnoses Not on filedocumented in this encounter Additional Health Concerns Assessment Noted Time PHQ-9 Depression Total Score: 15 024 9:20 AM EDT documented as of this encounter Care Teams Television Installer Helper Relationship Specialty Start Date End Date Aliza Paul DO [address] [place] [address] PCP - General Family Medicine 02/23/12 Lesley Ingram Community Health Worker 05/17/24 Rocio Ingram, RN [address] [place] [address] Registered Nurse Family Medicine 04/19/25 Kathrine Blank 04/19/25 [facility] 05/29/25 documented as of this encounter
--- OUTSIDE RECORDS SUMMARY | 2025-07-11 12:25 | XMS_ITS | Encounter Summary ---
Author Organization [employer] Address [address] [facility] [address] [place] [address] Care Team Providers Care Coal Tram Driver Name Role Phone Aliza Paul DO Primary Care Provider [phone] Lesley Ingram Unavailable Rosi Castro RN Unavailable [phone] Rosi Castro RN Unavailable [phone] Lesley Ingram Unavailable Rocio Ingram RN Unavailable [phone] Kathrine Blank Unavailable Reason for Visit * Reason Onset Date Comments PT1 12/12/2024 Encounter Details Date Type Department Care Team (Late st Contact Info) Description 12/12/2024 Telephone [facility] MEDICINE [address] [place], [place] [phone] Aliza Paul DO [address] [place], [place] [phone] PT1 Social History Tobacco Use Types Packs/Day [...] Y/N: Yes Provider name or facility name: [facility] Facility Address: [address] [place] [address] Escort needed: Y/N: Yes Do you have a wheelchair: Y/N: Yes If yes- Manual or electric: Manual Visits: 3 x a month documented in this encounter Plan of Treatment Upcoming Encounters Date Type Department Care Team (Late st Contact Info) Description 10/09/2025 1:30 PM EST Office Visit [facility] OPTOMETRY [address] [place] [address] Krystyna Hicks, OD [address] [place] [address] documented as of this encounter Visit Diagnoses Not on filedocumented in this encounter Additional Health Concerns Assessment Noted Time PHQ-9 Depression Total Score: 15 024 9:20 AM EDT documented as of this encounter Care Teams Coal Tram Driver Relationship Specialty Start Date End Date Aliza Paul DO [address] [place] [address] PCP - General Family Medicine 02/23/12 Lesley Ingram Community Health Worker 05/17/24 Rosi Castro, RICHARDSON [address] [place] [address] Supervisor Irrigation 05/17/24 03/05/25 Rosi Castro, RICHARDSON [address] [place] [address] Registered Nurse Family Medicine 04/06/25 04/10/25 Lesley Ingram 04/06/25 04/10/25 Rocio Ingram RN [address] [place] [address] Registered Nurse Family Medicine 04/19/25 Kathrine Blank 04/19/25 [facility] 07/27/24 05/28/25 [facility] 05/29/25 documented as of this encounter
--- NOTE | 2025-07-11 13:57 | PM.IMHP ---
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 Pt continues to be encephalopathic and hallucinating at time of interview and exam and is unable to provide meaningful HPI, which is instead provided from chart and provider review. Pt lives at home with her SPEECH CLINICIAN and was apparently found to be altered and experiencing visual hallucinations sometime last night. Paramedics initially were concerned that pt may have a stroke, though stroke alert was canceled once pt was brought to the ED and no focal deficits noted. In the ED pt's vitals were significant for hypertension up to 170 otherwise stable and WNL. Labs were significant for leukocytosis of 11.0, BUN 46, and creatinine 1.78 (baseline 0.75). No significant electrolyte abnormalities. Stable H&H. UA consistent with acute UTI. CXR showed negative for acute cardiopulmonary process. CT?of head negative for acute intracranial abnormality. EKG demonstrated normal sinus rhythm evidence of significant ST elevations or depressions. Pt was treated in the ED with IVF, vanc and ceftriaxone. Pt is admitted to the hospital for treatment and further evaluation of ANISA and acute metabolic encephalopathy in the setting of UTI. Review of Systems Review of Systems: Yes Unobtainable due to mental status [facility] Medical History Hyperthyroidism Hemiparesis affecting left side as late effect of stroke Hypotonic bladder H/O urinary retention GERD (gastroesophageal reflux disease) Hyperlipidemia HTN (hypertension) PFO (patent foramen ovale) Patellofemoral arthrosis Knee derangement Surgical History History of surgery Social History Household Members: Other Household Members Other:: SPEECH CLINICIAN Housing: Apartment Do you presently have visiting nurse or other home services: Yes (SPEECH CLINICIAN lives with pt, [facility]NA 1x/week.) Alcohol intake: current Alcohol intake frequency: does not drink Alcohol type: beer Patient Tobacco Use Status: Never used Tobacco Substance Use Type: Marijuana Currently Displaying Signs/Symptoms of Drug Intoxication Withdrawal: No Have you been hit, kicked, punched, or otherwise hurt by someone within the past year? If so, by whom?: No Do you feel safe in your current relationship?: No Current Relationship Is there a partner from a previous relationship who is making you feel unsafe now?: No Are you made to feel afraid or neglected: No Advance Directives: Yes Advance Directives on File: Yes Advance Directives Date on File: 05/30/25 Do you have a plan to hurt others: No Plan Recently lost weight without trying: No How much weight loss: Not applicable Eating poorly because of decreased appetite: No Nutrition screen score: 0 Nutrition Risks: No Nutritional Risk Patient : No : No Poor oral hygiene: No service: No Current occupational status: retired and disabled 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 Meds Allergies Allergy/AdvReac Type Severity Reaction Status Date / Time No Known Allergies Allergy Verified 07/11/25 09:05 Active Medications: Current Medications Vancomycin HCl (Vancomycin/Ns) 2,000 mg in 500 mls @ 250 mls/hr IV ONCE ONE Stop: 07/11/25 15:23 Home Medications ?Medication ?Instructions ?Recorded ?Confirmed ?Last Taken ?Type fluticasone propionate 50 2 spray intranasal DAILY PRN 11/18/21 07/11/25 07/10/25 History mcg/actuation nasal Allergy Symptoms spray,suspension acetaminophen 650 mg 650 mg PO Q12H PRN pain 07/20/24 07/11/25 11/23/24 History tablet,extended release albuterol sulfate 90 mcg/actuation 2 puff inhalation Q4-6H PRN 07/20/24 07/11/25 11/23/24 History aerosol inhaler Shortness Of Breath Or Wheezing baclofen 10 mg tablet 10 mg PO TID PRN muscle spasm 07/20/24 07/11/25 Unknown History buspirone 10 mg tablet 10 mg BID 07/20/24 07/11/25 07/10/25 History cholecalciferol (vitamin D3) 50 50 mcg DAILY 07/20/24 07/11/25 07/10/25 History mcg (2,000 unit) capsule hydroxyzine HCl 50 mg tablet 50 mg PO Q6H PRN anxiety 07/20/24 07/11/25 11/23/24 History venlafaxine 75 mg capsule,extended 75 mg PO DAILY 07/20/24 07/11/25 07/10/25 History release 24 hr aripiprazole 2 mg tablet 2 mg PO DAILY 11/23/24 07/11/25 07/10/25 History lisinopril 10 mg tablet 10 mg PO DAILY 11/23/24 07/11/25 07/10/25 History cetirizine 10 mg tablet 10 mg PO DAILY 07/11/25 07/11/25 07/10/25 History gabapentin 400 mg capsule 400 mg PO TID 07/11/25 07/11/25 07/10/25 History naproxen 500 mg tablet 500 mg PO BIDWM pain 07/11/25 07/11/25 07/10/25 History Physical Exam Vital Signs and Narrative: Vital Signs: Last Vital Signs Temp 97.4 F 07/11/25 12:13 Pulse 69 07/11/25 12:13 Resp 14 07/11/25 12:13 BP 135/88 07/11/25 12:13 Pulse Ox 95 07/11/25 12:13 O2 Del Method Room Air 07/11/25 12:13 BMI result Body Mass Index 33.6 General: AOx1, confused, anxious and agitated. In no acute distress Resp: CTA bilaterally CVS: S1, S2, RRR GI: +BS, NT, no distention Skin: Warm, dry Neuro: Chronic left-sided weakness and sensory deficits. Extremities: No edema Psych: Confused, anxious, agitated, and hallucinating. Results Labs 07/11/25 09:13 07/11/25 10:19 Labs: Laboratory Results - last 24 hr 07/11/25 07/11/25 07/11/25 08:58 09:13 09:16 MCV 83.4 MCH 28.3 MCHC 33.9 RDW 13.0 Plt Count 322 MPV 10.2 Immature Gran % (Auto) 0.3 Neut % (Auto) 61.0 Lymph % (Auto) 27.0 Edmunds % (Auto) 8.1 Eos % (Auto) 3.1 Baso % (Auto) 0.5 Lymph # (Auto) 3.0 Edmunds # (Auto) 0.9 Eos # (Auto) 0.3 Baso # (Auto) 0.1 Abs Immat Gran (auto) 0.03 Absolute Neuts (auto) 6.7 Absolute Nucleated RBC 0.000 Nucleated RBC % (auto) 0.0 PT 10.4 L INR 0.9 APTT 29.8 Anion Gap Estim Creat Clear Calc Estimated GFR POC Glucose 138 H Random Glucose Lactic Acid 0.9 Calcium Urine Color Yellow Urine Appearance Turbid Urine pH 5.0 Ur Specific Clifton 1.025 Urine Protein 100 (2+) H Urine Glucose (UA) Negative Urine Ketones Trace Urine Blood Large (3+) H Urine Nitrite Positive H Ur Leukocyte Esterase Large (3+) H Urine RBC 11-20 H Urine WBC >50 H Urine WBC Clumps Present Ur Squamous Epith Cells >20 Calcium Oxalate Crystal Present Urine Bacteria 2+ Hyaline Casts -07/11/25 10:19 MCV MCH MCHC RDW Plt Count MPV Immature Gran % (Auto) Neut % (Auto) Lymph % (Auto) Edmunds % (Auto) Eos % (Auto) Baso % (Auto) Lymph # (Auto) Edmunds # (Auto) Eos # (Auto) Baso # (Auto) Abs Immat Gran (auto) Absolute Neuts (auto) Absolute Nucleated RBC Nucleated RBC % (auto) PT INR APTT Anion Gap 14 Estim Creat Clear Calc 36.6 Estimated GFR 29 POC Glucose Random Glucose 114 Lactic Acid Calcium 8.3 L D Urine Color Urine Appearance Urine pH Ur Specific Clifton Urine Protein Urine Glucose (UA) Urine Ketones Urine Blood Urine Nitrite Ur Leukocyte Esterase Urine RBC Urine WBC Urine WBC Clumps Ur Squamous Epith Cells Calcium Oxalate Crystal Urine Bacteria Hyaline Casts Imaging Radiologist's Impressions: Impressions Chest X-Ray 07/11/25 08:35 IMPRESSION: Low lung volumes and borderline cardiomegaly. Chronic deformity of the proximal right humerus likely from a remote healed fracture. Electronically signed by: Derek Casillas MD 07/11/2025 09:48 AM EDT RP Head CT 07/11/25 10:05 IMPRESSION: No acute intracranial abnormality. Stable chronic changes. Electronically signed by: Derek Casillas MD 07/11/2025 10:34 AM EDT RP Assessment and Plan (1) Urinary tract infection: Status: Acute (2) Acute alteration in mental status: Status: Acute Plan Pt is a 59-year-old female with a PMH significant for?CVA on 01/26/2024 with residual left-sided hemiparesis, Graves disease, asthma, HTN, neurogenic bladder with chronic indwelling Quinonez, migraines, depression, and anxiety who presents to the ED with?altered mental status. Pt is admitted to the hospital for treatment and further evaluation of ANISA and acute metabolic encephalopathy in the setting of UTI. Acute metabolic encephalopathy in the setting of acute UTI UA+, pt altered from baseline with hallucinations Secondary to indwelling Quinonez Hx of MRSA UTI Will empirically treat with vanc and ceftriaxone, started 07/11/2025 Follow urine culture ANISA Creatinine 1.78 at time of presentation; baseline 0.75 Pt given IVF in the ED; will place on maintenance fluids Follow creatinine Graves disease No longer on methimazole Check TSH Hx of CVA Continue aspirin, statin HTN Continue propranolol Mood disorder Continue venlafaxine, BuSpar, ariprozole, hydroxyzine Full Code Attending:?Dr. Smith DVT Prophylaxis: Lovenox Pt will require a hospitalization of at least two nights for treatment of?ANISA and acute metabolic encephalopathy in the setting of acute UTI that will require administration of IVF and IV abx while awaiting cultures and sensitivities. Quality Stroke Does the patient have a stroke diagnosis?: No VTE Prior VTE?: No VTE Risk Level:: Medical - moderate - high VTE Device Contraindication: Treatment Not Indicated VTE Drug Contraindication: N/A - Med Ordered
[2025-07-11] MEDS: vancomycin/NS 2,000 MG/500 ML PLAST..BAG 250 MG IV (14:10)
--- NOTE | 2025-07-11 15:23 | PHA.MEDREC ---
Addendum entered by Maricruz Beckett RPh 07/11/25 16:39: [facility] reviewed Original Note: Pharmacy Consult ? Medication Reconciliation Pharmacy has completed the medication reconciliation. Spoke to patient patient BLOCKLAYER Bianka over the phone to confirm med list. Bianka was able to confirm all of patient medications. BLOCKLAYER states patient is no longer taking Asprin 81 mg, Loperamide 2 mg, Methimazole 500 mg, Nystatin, Ondansertron 4 mg, Oxycodone 5 mg, Polyvinyl eye drops, and propanplol 10 mg. Patient last had her medications last night.
[2025-07-11 19:12] LABS: Free T4 (Free Thyroxine) 1.37 ng/dL (0.71-1.85)
[2025-07-11] MEDS: 0.9 % Sodium Chloride Flush 3 ML SYRINGE IVFLUSH (21:01)
[2025-07-11] MEDS: Albuterol/Iprat 2.5/0.5MG 3 ML AMPUL.NEB INHALE (21:31)
[2025-07-11] MEDS: Lactated Ringers 500 ML 100 ML IVCONT (23:57)
[2025-07-12 03:59] VITALS: BP 140/80; PULSE 84; RESP 18; TEMP 36.3; O2SAT 99
[2025-07-12 06:46] LABS: Hematocrit 38.4 % (37.0-47.0); Hemoglobin 12.9 g/dl (12.0-16.0); Mean Corpuscular HGB Conc 33.6 g/dl (31.0-35.0); Mean Corpuscular Hemoglobin 28.2 pg (27.0-33.0); Mean Corpuscular Volume 84.0 fL (80.0-98.0); NRBC Abs Auto 0.000 X10*3/uL (0.0-0.012); NRBC Pct Auto 0.0 /100WBC (0.0-0.2); Platelet Count 221 X10*3/uL (160-400); Red Blood Count 4.57 X10*6/uL (4.20-5.50); White Blood Count 5.6 X10*3/uL (4.8-10.8)
[2025-07-12 07:24] LABS: Anion Gap 10 (12-20); Blood Urea Nitrogen 26 mg/dL (9-16); Calcium 8.6 mg/dL (8.4-10.2); Carbon Dioxide 25 mmol/L (22-29); Chloride 113 mmol/L (96-108); Creatinine Clr Calc Pharmacy 82.5; Estimated Glomerular Filt Rate > 60; Potassium 3.8 mmol/L (3.3-5.1); Sodium 144 mmol/L (135-145)
[2025-07-12 07:40] VITALS: BP 168/92; PULSE 65; RESP 18; TEMP 36.2; O2SAT 97
[2025-07-12] MEDS: Venlafaxine HCl ER 75 MG CAP.ER.24H PO (07:55)
[2025-07-12] MEDS: 0.9 % Sodium Chloride Flush 3 ML SYRINGE IVFLUSH ×3 (07:55→20:03)
--- NOTE | 2025-07-12 09:08 | MHC.CM.PN ---
DX UTI w Encephalopathy Lives w OCULARIST States she lives in a Foster situation. A referral has been sent via task to [facility]. Patient states that she has a nurse BP check 1x a week. HCP on file pcp Vinita Steve. DP home resumption of services. BLS transport home at discharge.
[2025-07-12 10:20] LABS: Free T4 (Free Thyroxine) 1.18 ng/dL (0.71-1.85)
--- NOTE | 2025-07-12 15:19 | HO.PM.IMPN ---
Subjective Subjective Date of Service: 07/12/25 Interval History: Acute metabolic encephalopathy Review of Systems mental status seems improving still anxious Physical Exam Exam: Exam: General: AOx1, confused, anxious and agitated. In no acute distress Resp: CTA bilaterally CVS: S1, S2, RRR GI: +BS, NT, no distention Skin: Warm, dry Neuro: Chronic left-sided weakness and sensory deficits. Extremities: No edema Psych: Confused, anxious, agitated, and hallucinating. Vital Signs: Vital Signs: Last Vital Signs Temp 97.1 F 07/12/25 07:40 Pulse 65 07/12/25 07:40 Resp 18 07/12/25 07:40 BP 168/92 H 07/12/25 07:40 Pulse Ox 97 07/12/25 07:40 O2 Del Method Room Air 07/12/25 07:40 BMI result Body Mass Index 32.7 Objective Data Active Medications Acetaminophen (Acetaminophen 325 Mg Tablet) 650 mg PO Q6H PRN PRN Reason: Pain, Mild 1-3,fever,headache Last Admin: 07/12/25 13:22 Dose: 650 mg Documented By: DALLIN Albuterol Sulfate (Albuterol Sulfate 90 Mcg 8 Gm Inhaler) 2 puff INHALE RQ4H PRN PRN Reason: Shortness Of Breath Or Wheezing Albuterol/Ipratropium (Albuterol/Iprat 2.5/0.5mg 3 Ml Ampul.Neb) 3 ml INHALE RQ4H WHILE AWAKE PRN PRN Reason: Shortness of Breath/Wheezing Last Admin: 07/11/25 21:31 Dose: 3 ml Documented By: CESAR Aripiprazole (Aripiprazole 2 Mg Tablet) 2 mg PO BEDTIME [facility] [place] Last Admin: 07/11/25 21:11 Dose: Not Given Documented By: DANNA Non-Admin Reason: already given see below Ascorbic Acid (Ascorbic Acid 500 Mg Tablet) 1,000 mg PO DAILY [facility] [place] Last Admin: 07/12/25 07:55 Dose: 1,000 mg Documented By: DALLIN Baclofen (Baclofen 10 Mg Tablet) 10 mg PO TID PRN PRN Reason: Muscle Spasm Last Admin: 07/12/25 14:16 Dose: 10 mg Documented By: DALLIN Buspirone HCl (Buspirone Hcl 10 Mg Tablet) 10 mg PO BID [facility] [place] Last Admin: 07/12/25 07:55 Dose: 10 mg Documented By: DALLIN Calcium Carbonate (Calcium Carbonate 750 Mg Tab.Chew) 750 mg PO Q4H PRN PRN Reason: Heartburn Ceftriaxone Sodium (Ceftriaxone Sodium 1 Gm Vial) 1 gm IVPUSH Q24H [facility] [place] Last Admin: 07/12/25 09:12 Dose: 1 gm Documented By: DALLIN Enoxaparin Sodium (Enoxaparin Sodium 40 Mg/0.4 Ml Syringe) 40 mg SUBCUT Q24H [facility] [place] Last Admin: 07/11/25 21:03 Dose: Not Given Documented By: DANNA Non-Admin Reason: Patient Refused Fluticasone Propionate (Fluticasone Propionate Nasal 16 Gm [place]) 2 spray NOSTRIL-B DAILY PRN PRN Reason: Allergy Symptoms Gabapentin (Gabapentin 400 Mg Capsule) 400 mg PO TID [facility] [place] Last Admin: 07/12/25 14:16 Dose: 400 mg Documented By: DALLIN Hydroxyzine HCl (Hydroxyzine Hcl 50 Mg Tablet) 50 mg PO Q6H PRN PRN Reason: Anxiety Last Admin: 07/12/25 13:23 Dose: 50 mg Documented By: DALLIN Vancomycin HCl 1,250 mg/ (Sodium Chloride) 250 mls @ 166.667 mls/hr IV Q24H [facility] [place] Last Admin: 07/12/25 13:23 Dose: 166.67 mls/hr Documented By: DALLIN Lisinopril (Lisinopril 10 Mg Tablet) 10 mg PO DAILY [facility] [place]; Protocol Last Admin: 07/12/25 07:55 Dose: 10 mg Documented By: DALLIN Loratadine (Loratadine 10 Mg Tablet) 10 mg PO DAILY [facility] [place] Last Admin: 07/12/25 07:55 Dose: 10 mg Documented By: DALLIN Magnesium Hydroxide (Milk Of Magnesia 30 Ml Oral.Susp) 30 ml PO DAILY PRN PRN Reason: Constipation Melatonin (Melatonin 3 Mg Tablet) 6 mg PO BEDTIME PRN PRN Reason: Insomnia Last Admin: 07/11/25 20:59 Dose: 6 mg Documented By: DANNA Ondansetron HCl (Ondansetron Hcl 4 Mg/2 Ml Vial) 4 mg IVPUSH Q8H PRN PRN Reason: Nausea and Vomiting Pharmacy Consult (Consult Rx Vancomycin Dosing) 1 each MISCELLANE DAILY PRN PRN Reason: Consult order Sodium Chloride (0.9 % Sodium Chloride Flush 3 Ml Syringe) 3 ml IVFLUSH QSHIFT [facility] [place] Last Admin: 07/12/25 14:17 Dose: 3 ml Documented By: DALLIN Venlafaxine HCl (Venlafaxine Hcl Er 75 Mg Cap.Er.24h) 75 mg PO DAILY [facility] [place] Last Admin: 07/12/25 07:55 Dose: 75 mg Documented By: DALLIN Vitamin D (Cholecalciferol (Vitamin D3) 25 Mcg Tablet) 50 mcg PO DAILY [facility] [place] Last Admin: 07/12/25 07:54 Dose: 50 mcg Documented By: DALLIN Labs 07/12/25 06:19 07/12/25 06:19 Labs: Laboratory Results - last 24 hr 07/11/25 07/12/25 10:19 06:19 MCV 84.0 MCH 28.2 MCHC 33.6 RDW 12.8 Plt Count 221 D MPV 10.1 Absolute Nucleated RBC 0.000 Nucleated RBC % (auto) 0.0 Anion Gap 10 L Estim Creat Clear Calc 82.5 Estimated GFR > 60 Random Glucose 118 H Calcium 8.6 TSH < 0.01 L Free T4 1.37 1.18 Microbiology Microbiology Results: Microbiology 07/11/25 Unknown Urine Culture - Preliminary Urine Catheterized - Quinonez Catheter Gram negative jalen 07/11/25 09:13 Blood Culture - Preliminary Blood - Venous No growth after 24 hours. 07/11/25 09:14 Blood Culture - Preliminary Blood - Venous No growth after 24 hours. Assessment and Plan (1) ANISA (acute kidney injury): Status: Acute (2) Urinary tract infection: Status: Acute Plan 59-year-old female with a PMH significant for?CVA on 01/26/2024 with residual left-sided hemiparesis, Graves disease, asthma, HTN, neurogenic bladder with chronic indwelling Quinonez, migraines, depression, and anxiety who presents to the ED with?altered mental status. Pt is admitted to the hospital for treatment and further evaluation of ANISA and acute metabolic encephalopathy in the setting of UTI. Acute metabolic encephalopathy in the setting of acute UTI UA+, pt altered from baseline with hallucinations Secondary to indwelling Quinonez Hx of MRSA UTI on vanc and ceftriaxone, started 07/11/2025 Follow urine culture ANISA:Creatinine 1.78 at time of presentation; baseline 0.75 Pt given IVF in the ED; will place on maintenance fluids Follow creatinine Graves disease No longer on methimazole TSH: <0.01, free t4 :1.37 Hx of CVA Continue aspirin, statin HTN Continue propranolol Mood disorder-still severe anxiety Continue venlafaxine, BuSpar, ariprozole, hydroxyzine and added psych eval . Full Code DVT Prophylaxis: Lovenox ongoing need hospitalization of at least two nights for treatment of?ANISA and acute metabolic encephalopathy in the setting of acute UTI that will require administration of IVF and IV abx while awaiting cultures and sensitivities. Quality Stroke Does the patient have a stroke diagnosis?: No VTE Prior VTE?: No VTE Risk Level:: Medical - moderate - high VTE Device Contraindication: Treatment Not Indicated VTE Drug Contraindication: N/A - Med Ordered
[2025-07-12 16:00] VITALS: BP 178/90; PULSE 74; RESP 17; TEMP 36.1; O2SAT 98
--- NOTE | 2025-07-12 16:34 | PM.PSYCN ---
History of Present Illness Date of Service: 07/12/25 Chief Complaint: UTI w encephalopathy Reason for Consult: severe anxiety Requesting physician: Floyd Keith Discussed with referring provider: Yes Sources of Information: patient interviewed and chart reviewed HPI Narrative: Radha is a 59 year old female with hx of CVA with residual left-sided hemiparesis, Graves disease, asthma, HTN, neurogenic bladder with chronic indwelling Quinonez, migraines, depression, and anxiety who presents to the ED with altered mental status. Pt is admitted to the hospital for treatment and further evaluation of ANISA and acute metabolic encephalopathy in the setting of UTI. Psychiatric consult placed for: severe anxiety During psychiatric assessment, pt presents alert and oriented x3. calm and cooperative. friendly. Patient reports feeling anxious d/t being in the hospital ; pt stated, I'm anxious because people keep coming in and out of my room. I had to use the commode to go to the bathroom. I don't deal with change well. I thought I was having a stroke at home but turns out I'm having a UTI real bad . Patient reports being medication compliant with her psychiatric medications. She reports smoking cocaine and marijuana daily; she reports last using prior to coming to the hospital. pt stated, my REPORT WRITER and I use together. We've been friends since 3rd grade . patient denies SI/HI/VH/AH. She denies hx of SA/SIB. Patient believes her psychiatric medications work well and reports having outpatient providers but can not recall their names or agency name. Past Psychiatric History: denies hx of inpatient psychiatric hospitalizations. Outpatient therapist: Annie (pt can not recall last name or name of agency therapist is connected with) Prescriber: pt can not recall name. denies hx of SA/SIB. Medical Evaluation Reviewed: Yes [facility] Medical History Hyperthyroidism Hemiparesis affecting left side as late effect of stroke Hypotonic bladder H/O urinary retention GERD (gastroesophageal reflux disease) Hyperlipidemia HTN (hypertension) PFO (patent foramen ovale) Patellofemoral arthrosis Knee derangement Surgical History History of surgery Family History: unknown Social History: Lives with REPORT WRITER. Single. 3 adult children. unemployed. high school diploma. Substance History: Patient reports smoking marijuana and cocaine daily. denies any other substance use. Trauma History: denies Diagnostics Vital Signs (24Hr): Vital Signs - 24 hr 07/11/25 18:23 07/11/25 20:48 07/11/25 23:25 Temperature 97.5 F 97.6 F Pulse Rate 68 69 65 Respiratory Rate 14 18 20 Blood Pressure 170/85 H 187/85 H 136/71 Pulse Oximetry 99 97 95 Oxygen Delivery Method Room Air Room Air Room Air 07/11/25 23:28 07/12/25 03:59 07/12/25 07:40 Temperature 97.3 F 97.1 F Pulse Rate 65 84 65 Respiratory Rate 18 18 Blood Pressure 136/71 140/80 H 168/92 H Pulse Oximetry 99 97 Oxygen Delivery Method Room Air Room Air 07/12/25 16:00 Temperature 97.0 F Pulse Rate 74 Respiratory Rate 17 Blood Pressure 178/90 H Pulse Oximetry 98 Oxygen Delivery Method Room Air BMI result Body Mass Index 32.7 Labs 07/12/25 06:19 07/12/25 06:19 Labs: Laboratory Results - last 48 hr 07/11/25 07/11/25 07/11/25 08:58 09:13 09:16 WBC 11.0 H RBC 5.30 Hgb 15.0 Hct 44.2 MCV 83.4 MCH 28.3 MCHC 33.9 RDW 13.0 Plt Count 322 MPV 10.2 Immature Gran % (Auto) 0.3 Neut % (Auto) 61.0 Lymph % (Auto) 27.0 [place] % (Auto) 8.1 Eos % (Auto) 3.1 Baso % (Auto) 0.5 Lymph # (Auto) 3.0 [place] # (Auto) 0.9 Eos # (Auto) 0.3 Baso # (Auto) 0.1 Abs Immat Gran (auto) 0.03 Absolute Neuts (auto) 6.7 Absolute Nucleated RBC 0.000 Nucleated RBC % (auto) 0.0 PT 10.4 L INR 0.9 APTT 29.8 Sodium Potassium Chloride Carbon Dioxide Anion Gap BUN Creatinine Estim Creat Clear Calc Estimated GFR POC Glucose 138 H Random Glucose Lactic Acid 0.9 Calcium TSH Free T4 Urine Color Yellow Urine Appearance Turbid Urine pH 5.0 Ur Specific [place] 1.025 Urine Protein 100 (2+) H Urine Glucose (UA) Negative Urine Ketones Trace Urine Blood Large (3+) H Urine Nitrite Positive H Ur Leukocyte Esterase Large (3+) H Urine RBC 11-20 H Urine WBC >50 H Urine WBC Clumps Present Ur Squamous Epith Cells >20 Calcium Oxalate Crystal Present Urine Bacteria 2+ Hyaline Casts 11-20 07/11/25 07/12/25 10:19 06:19 WBC 5.6 RBC 4.57 Hgb 12.9 Hct 38.4 MCV 84.0 MCH 28.2 MCHC 33.6 RDW 12.8 Plt Count 221 D MPV 10.1 Immature Gran % (Auto) Neut % (Auto) Lymph % (Auto) [place] % (Auto) Eos % (Auto) Baso % (Auto) Lymph # (Auto) [place] # (Auto) Eos # (Auto) Baso # (Auto) Abs Immat Gran (auto) Absolute Neuts (auto) Absolute Nucleated RBC 0.000 Nucleated RBC % (auto) 0.0 PT INR APTT Sodium 142 144 Potassium 3.7 3.8 Chloride 110 H 113 H Carbon Dioxide 22 25 Anion Gap 14 10 L BUN 46 H 26 H Creatinine 1.78 H 0.78 Estim Creat Clear Calc 36.6 82.5 Estimated GFR 29 > 60 POC Glucose Random Glucose 114 118 H Lactic Acid Calcium 8.3 L D 8.6 TSH < 0.01 L Free T4 1.37 1.18 Urine Color Urine Appearance Urine pH Ur Specific [place] Urine Protein Urine Glucose (UA) Urine Ketones Urine Blood Urine Nitrite Ur Leukocyte Esterase Urine RBC Urine WBC Urine WBC Clumps Ur Squamous Epith Cells Calcium Oxalate Crystal Urine Bacteria Hyaline Casts Imaging Radiology Impressions: ITS Impressions Chest X-Ray 07/11/25 08:35 IMPRESSION: Low lung volumes and borderline cardiomegaly. Chronic deformity of the proximal right humerus likely from a remote healed fracture. Electronically signed by: Derek Casillas MD 07/11/2025 09:48 AM EDT RP Head CT 07/11/25 10:05 IMPRESSION: No acute intracranial abnormality. Stable chronic changes. Electronically signed by: Derek Casillas MD 07/11/2025 10:34 AM EDT RP Mental Status Exam Mental Status Exam Patient Appearance: Appropriate Patient Orientation: Person, Place, Time and Situation Level of Consciousness: Awake and Alert Patient Behavior: Appropriate, Cooperative and Good Eye Contact Mood Description: Calm Affect Description: Calm Ability to Follow Directions: Good Speech Pattern: Clear Hallucinations: None Delusions: Not Present Thought Process: Intact Thought Content: positive for Intact Medications Medications Current Medications Acetaminophen (Acetaminophen 325 Mg Tablet) 650 mg PO Q6H PRN PRN Reason: Pain, Mild 1-3,fever,headache Last Admin: 07/12/25 13:22 Dose: 650 mg Albuterol Sulfate (Albuterol Sulfate 90 Mcg 8 Gm Inhaler) 2 puff INHALE RQ4H PRN PRN Reason: Shortness Of Breath Or Wheezing Albuterol/Ipratropium (Albuterol/Iprat 2.5/0.5mg 3 Ml Ampul.Neb) 3 ml INHALE RQ4H WHILE AWAKE PRN PRN Reason: Shortness of Breath/Wheezing Last Admin: 07/11/25 21:31 Dose: 3 ml Aripiprazole (Aripiprazole 2 Mg Tablet) 2 mg PO BEDTIME [facility] Last Admin: 07/11/25 21:11 Dose: Not Given Ascorbic Acid (Ascorbic Acid 500 Mg Tablet) 1,000 mg PO DAILY [facility] Last Admin: 07/12/25 07:55 Dose: 1,000 mg Baclofen (Baclofen 10 Mg Tablet) 10 mg PO TID PRN PRN Reason: Muscle Spasm Last Admin: 07/12/25 14:16 Dose: 10 mg Buspirone HCl (Buspirone Hcl 10 Mg Tablet) 10 mg PO BID [facility] Last Admin: 07/12/25 07:55 Dose: 10 mg Calcium Carbonate (Calcium Carbonate 750 Mg Tab.Chew) 750 mg PO Q4H PRN PRN Reason: Heartburn Ceftriaxone Sodium (Ceftriaxone Sodium 1 Gm Vial) 1 gm IVPUSH Q24H [facility] Last Admin: 07/12/25 09:12 Dose: 1 gm Enoxaparin Sodium (Enoxaparin Sodium 40 Mg/0.4 Ml Syringe) 40 mg SUBCUT Q24H [facility] Last Admin: 07/11/25 21:03 Dose: Not Given Fluticasone Propionate (Fluticasone Propionate Nasal 16 Gm [place]) 2 spray NOSTRIL-B DAILY PRN PRN Reason: Allergy Symptoms Gabapentin (Gabapentin 400 Mg Capsule) 400 mg PO TID [facility] Last Admin: 07/12/25 14:16 Dose: 400 mg Hydroxyzine HCl (Hydroxyzine Hcl 50 Mg Tablet) 50 mg PO Q6H PRN PRN Reason: Anxiety Last Admin: 07/12/25 13:23 Dose: 50 mg Vancomycin HCl 1,250 mg/ (Sodium Chloride) 250 mls @ 166.667 mls/hr IV Q24H [facility] Last Infusion: 07/12/25 16:16 Dose: Infused Lisinopril (Lisinopril 10 Mg Tablet) 10 mg PO DAILY [facility]; Protocol Last Admin: 07/12/25 07:55 Dose: 10 mg Loratadine (Loratadine 10 Mg Tablet) 10 mg PO DAILY [facility] Last Admin: 07/12/25 07:55 Dose: 10 mg Magnesium Hydroxide (Milk Of Magnesia 30 Ml Oral.Susp) 30 ml PO DAILY PRN PRN Reason: Constipation Melatonin (Melatonin 3 Mg Tablet) 6 mg PO BEDTIME PRN PRN Reason: Insomnia Last Admin: 07/11/25 20:59 Dose: 6 mg Ondansetron HCl (Ondansetron Hcl 4 Mg/2 Ml Vial) 4 mg IVPUSH Q8H PRN PRN Reason: Nausea and Vomiting Pharmacy Consult (Consult Rx Vancomycin Dosing) 1 each MISCELLANE DAILY PRN PRN Reason: Consult order Sodium Chloride (0.9 % Sodium Chloride Flush 3 Ml Syringe) 3 ml IVFLUSH QSHIFT [facility] Last Admin: 07/12/25 14:17 Dose: 3 ml Venlafaxine HCl (Venlafaxine Hcl Er 75 Mg Cap.Er.24h) 75 mg PO DAILY [facility] Last Admin: 07/12/25 07:55 Dose: 75 mg Vitamin D (Cholecalciferol (Vitamin D3) 25 Mcg Tablet) 50 mcg PO DAILY [facility] Last Admin: 07/12/25 07:54 Dose: 50 mcg Allergies Allergies Allergy/AdvReac Type Severity Reaction Status Date / Time No Known Allergies Allergy Verified 07/11/25 09:05 Assessment & Plan Assessment & Plan (1) YOANA (generalized anxiety disorder): Status: Acute Code(s): F41.1 - Generalized anxiety disorder Plan Recommendation: -Continue home medications. -Consult addiction medicine to provide resources in substance abuse treatment options. -Patient should follow up outpatient with her psychiatric providers. -Reconsult if needed. Total time managing care of this patient today _30___ minutes. Patient educated on: medication risk/benefits
[2025-07-12 19:35] VITALS: BP 168/70; PULSE 77; RESP 20; TEMP 36.5; O2SAT 95
[2025-07-13] VITALS (7 sets, daily range): BP systolic 155–195; BP diastolic 71–95; PULSE 62–78; RESP 16–18; TEMP 36.4–36.8; O2SAT 94–96
[2025-07-13 07:15] LABS: Anion Gap 10 (12-20); Blood Urea Nitrogen 20 mg/dL (9-16); Calcium 8.8 mg/dL (8.4-10.2); Carbon Dioxide 24 mmol/L (22-29); Chloride 111 mmol/L (96-108); Creatinine Clr Calc Pharmacy 92.0; Estimated Glomerular Filt Rate > 60; Potassium 4.0 mmol/L (3.3-5.1); Sodium 141 mmol/L (135-145)
[2025-07-13] MEDS: 0.9 % Sodium Chloride Flush 3 ML SYRINGE IVFLUSH (07:34)
[2025-07-13] MEDS: Venlafaxine HCl ER 75 MG CAP.ER.24H PO (07:35)
[2025-07-13] MEDS: Lidocaine 4 % Patch ADH..PATCH 2 PATCH TRANSDERMA (10:47)
--- NOTE | 2025-07-13 13:18 | MHC.CM.PN ---
Addendum entered by Phyllis Bower 07/13/25 13:22: PO ABX at discharge. Original Note: Per MD rounds Patient is not cleared to discharge today. A PT eval has been ordered, and is pending. BP is elevated. MD is making medication changes. DP return home with ACP services vs str, pending PT eval. Patient will transport via BLS at discharge.
--- NOTE | 2025-07-13 13:26 | HE.PHANOTE ---
RE: VANCO DOSING Trough came back as 7.9 mg/L, renal function is stable. Dose increased to 1250 mg q12h, next trough is scheduled for 07/14/25 @1200.
--- NOTE | 2025-07-13 14:01 | P.F2F_ITS ---
Service Date Service Date: 07/13/25 Encounter Date of encounter: 07/13/25 Encounter: uti ,gavino, low tsh Reasons for Services Signs and symptoms assessed: Any new complaint of urination or abdominal pain or fever. Reason for custodial: CV/CP assess and/or care, medication management, medication treatment and teach disease management Reason for physical therapy: home safety and mobility, therapeutic exercises, restore joint function, gait/transfer training, assess need for DME, ADL training, energy conservation and other MD Overseeing Care: Aliza Paul Homebound: Leaving the home is medically contraindicated at this time without the asist of a device and/or another person due th the listed conditions above and below. Reason homebound: weakness related to hospital stay Homebound supporting statement: Patient is generalised weak post hospitlisation and need help with going to appointments and labs draws as well as PT. Certification: Based on the above findings, I certify that this patient is confined to the home and needs intermittent custodial care, physical therapy and/or speech therapy, or continues to need occupational therapy. The patient is under my care, and I have initiated the establishment of the plan of care. The patient will be followed by a physician who will periodically review the plan of care. Time Spent With Patient Time: Total time managing care of this patient today ____ minutes.
--- NOTE | 2025-07-13 14:02 | P.DS_ITS ---
DS: Providers Provider Date of Service: 07/13/25 Date of admission: 07/11/25 14:41 Date of discharge: 07/13/25 Primary care physician: Aliza Paul DO Consults: 07/12/25 09:38 Consult to Psychiatry Routine Consulting Provider: [facility] Psych Covering Reason for consultation: Severe anxiety Has provider been notified: No Attending physician on discharge: Floyd Keith Discharging clinician: Floyd Keith DS: Diagnosis Discharge Diagnosis (1) YOANA (generalized anxiety disorder): Status: Acute DS: Summary Hospital Course Hospital Course: HPI:59-year-old female with a PMH significant for?CVA on 01/26/2024 with residual left-sided hemiparesis, Graves disease, asthma, HTN, neurogenic bladder with chronic indwelling Quinonez, migraines, depression, and anxiety who presents to the ED with?altered mental status. Pt continues to be encephalopathic and hallucinating at time of interview and exam and is unable to provide meaningful HPI, which is instead provided from chart and provider review. Pt lives at home with her PACS SPECIALIST and was apparently found to be altered and experiencing visual hallucinations sometime last night. Paramedics initially were concerned that pt may have a stroke, though stroke alert was canceled once pt was brought to the ED and no focal deficits noted. In the ED pt's vitals were significant for hypertension up to 170 otherwise stable and WNL. Labs were significant for leukocytosis of 11.0, BUN 46, and creatinine 1.78 (baseline 0.75). No significant electrolyte abnormalities. Stable H&H. UA consistent with acute UTI. CXR showed negative for acute cardiopulmonary process. CT?of head negative for acute intracranial abnormality. EKG demonstrated normal sinus rhythm evidence of significant ST elevations or depressions. Pt was treated in the ED with IVF, vanc and ceftriaxone. Pt is admitted to the hospital for treatment and further evaluation of ANISA and acute metabolic encephalopathy in the setting of UTI. Hospital course: Acute metabolic encephalopathy in the setting of UTI: Started on IV antibiotics, mental status improved and is at baseline. Blood culture negative at 48 hours, urine culture grew E coli sensitive to ceftriaxone. Patient was switched to p.o. Ceftin upon discharge. Strongly advised to abstain from cocaine /opioid use. ANISA in the setting of decreased p.o. intake : Improved with hydration. Monitor BMP outpatient. Hypotension: Added amlodipine 2.5 mg daily, monitor outpatient BP and if needed consider up titrating amlodipine. Continue lisinopril. History of Grave disease: TSH: <0.01, free t4 :1.37, discussed with the patient's insights strategist Dr. Hester: Patient needs to follow-up out patiently with Dr. Hester's office for further management. plan: Strongly advised to abstain from cocaine use. Ceftin 500 mg p.o. b.i.d. for 6 days. Amlodipine 2.5 mg daily. Follow up with BMP outpatient, also follow up with Dr. Hester's office and PCP outpatient. Above management discussed with the patient detail length she understand and in agreement with the above plan, time spent 45 minute, all questions answered. Staff was present during conversation. Time Attestation Total time managing care of this patient today: 45 mintues. Discharge Coordination Time (in mins): 45 min Quality: Safe Use of Opioids Does Pt have an Active Cancer Diagnosis on the Problem List?: No Quality: Stroke Does the patient have a stroke diagnosis?: No Physical Exam Exam: Exam: General: AOx3 In no acute distress Resp: CTA bilaterally CVS: S1, S2, RRR GI: +BS, NT, no distention Skin: Warm, dry Neuro: Chronic left-sided weakness and sensory deficits. Extremities: No edema Psych: Confused, anxious, agitated, and hallucinating Vital Signs: Vital Signs: Last Vital Signs Temp 98.1 F 07/13/25 07:43 Pulse 78 07/13/25 13:10 Resp 16 07/13/25 07:43 BP 160/72 H 07/13/25 13:10 Pulse Ox 96 07/13/25 07:43 O2 Del Method Room Air 07/13/25 07:43 BMI result Body Mass Index 32.7 DS: Data Data Completed and Pending Labs on day of discharge: Laboratory Results - last 24 hr 07/13/25 07/13/25 06:17 12:10 Sodium 141 Potassium 4.0 Chloride 111 H Carbon Dioxide 24 Anion Gap 10 L BUN 20 H Creatinine 0.70 Estim Creat Clear Calc 92.0 Estimated GFR > 60 Random Glucose 98 Calcium 8.8 Random Vancomycin 7.9 L Preliminary micro results at discharge 07/11/25 09:13 Blood Culture - Preliminary Blood - Venous No growth after 48 hours. 07/11/25 09:14 Blood Culture - Preliminary Blood - Venous No growth after 48 hours. Imaging Chest x-ray: Radiologist's impression: ITS Impressions Chest X-Ray 07/11/25 08:35 IMPRESSION: Low lung volumes and borderline cardiomegaly. Chronic deformity of the proximal right humerus likely from a remote healed fracture. Head CT 07/11/25 10:05 IMPRESSION: No acute intracranial abnormality. Stable chronic changes. Discharge Plan Discharge Anticipated Discharge Date/Time: 07/13/25 13:51 Patient Disposition: Home Health Service Discharge Diagnosis: uti ,anisa ,low tsh Referrals: Aliza Paul DO [Primary Care Provider, Internal Medicine] - 1 Week Oralia Hester MD [Physician, Endocrinology] - 1 Week Discharge Medications: New amlodipine 2.5 mg Tablet 2.5 mg PO DAILY Qty: 90 0RF Protocol: Hold for SBP< HOLD for SBP < : 90 Continued ascorbic acid (vitamin C) 1,000 mg tablet 1,000 mg PO DAILY 90 Days Qty: 90 1RF venlafaxine 75 mg capsule,extended release 24hr 75 mg PO DAILY hydroxyzine HCl 50 mg tablet 50 mg PO Q6H PRN (Reason: anxiety) acetaminophen 650 mg tablet extended release 650 mg PO Q12H PRN (Reason: pain) buspirone 10 mg tablet 10 mg BID cholecalciferol (vitamin D3) 50 mcg (2,000 unit) capsule 50 mcg DAILY baclofen 10 mg tablet 10 mg PO TID PRN (Reason: muscle spasm) albuterol sulfate 90 mcg/actuation Hfa Aerosol Inhaler 2 puff INHALATION Q4-6H PRN (Reason: Shortness Of Breath Or Wheezing) lisinopril 10 mg tablet 10 mg PO DAILY aripiprazole 2 mg tablet 2 mg PO DAILY ipratropium-albuterol 0.5 mg-3 mg(2.5 mg base)/3 mL Solution For Nebulization 3 ml inhalation RQ4H WHILE AWAKE PRN (Reason: Shortness Of Breath/Wheezing) Qty: 90 0RF cetirizine 10 mg tablet 10 mg PO DAILY gabapentin 400 mg capsule 400 mg PO TID fluticasone propionate 50 mcg/actuation spray,suspension 2 spray intranasal DAILY PRN (Reason: Allergy Symptoms) methenamine hippurate 1 gram tablet 1 g PO DAILY 90 Days Qty: 90 1RF Held naproxen 500 mg tablet 500 mg PO BIDWM Hold Instructions: Resume on 07/18/25. Discharge Orders: Discharge Order (Routine); Ordered 07/13/25 Ordered By: Floyd Keith Diet: Advance to usual diet Activity on Discharge: As tolerated Stand Alone Forms: Patient Portal Discharge page Print Language: Luxembourgish Other Ambulatory Orders: Basic Metabolic Panel (Routine) Timeframe: 1 Week Facility: [facility] - Location: Laboratory Ordered By: Floyd Keith Care Plan Goals: Acute metabolic encephalopathy in the setting of UTI: Started on IV antibiotics, mental status improved and is at baseline. Patient was switched to p.o. Ceftin upon discharge. Strongly advised to abstain from cocaine /opioid use. ANISA in the setting of decreased p.o. intake : Improved with hydration. Monitor BMP outpatient. Hypotension: Added amlodipine 2.5 mg daily, monitor outpatient BP and if needed consider up titrating amlodipine. Continue lisinopril. History of Grave disease: TSH: <0.01, free t4 :1.37, discussed with the patient's insights strategist Dr. Hester: Patient needs to follow-up out patiently with Dr. Hester's office for further management. Health Concerns: Strongly advised to abstain from cocaine use. Ceftin 500 mg p.o. b.i.d. for 6 days. Amlodipine 2.5 mg daily. Follow up with BMP outpatient, also follow up with Dr. Hester's office and PCP outpatient. Plan of Treatment: As above. Assessment: As above.
[2025-07-13] MEDS: Naloxone HCl Nasal TAKE HOME 4 MG SPRAY 8 MG NOSTRILALT (14:31)
== END 2025-07-13 17:52 | disposition home health service (06) | DRG 466 ==
LOC: HO.ED 13:30 → HO.EDOVER 14:42 → HO.S3 19:17
PROVIDERS: Admitting Provider Student in an Organized Health Care Education/Training Program; Emergency Provider Emergency Medicine Emergency Medical Services; PCP Family Medicine; Visit Provider Internal Medicine
DX: T83.511A Infection and inflammatory reaction due to indwelling urethral catheter, initial encounter (principal); G93.41 Metabolic encephalopathy; N17.9 Acute kidney failure, unspecified; I69.354 Hemiplegia and hemiparesis following cerebral infarction affecting left non-dominant side; N31.9 Neuromuscular dysfunction of bladder, unspecified; E05.00 Thyrotoxicosis with diffuse goiter without thyrotoxic crisis or storm; I10 Essential (primary) hypertension; F41.1 Generalized anxiety disorder; N39.0 Urinary tract infection, site not specified; B96.20 Unspecified Escherichia coli [E. coli] as the cause of diseases classified elsewhere; Z87.440 Personal history of urinary (tract) infections; Z79.899 Other long term (current) drug therapy
CPT/HCPCS: 36415; 70450; 71045; 80048; 80202; 81001; 82947; 83605; 84439; 84443; 85025; 85027; 85610; 85730; 87040; 87086; 87088; 87186; 93005; 97162; 99285; J0696; J1650; J3373; J3374; J7120

== ENCOUNTER → 2025-07-11 08:59 | Outpatient (BNV) | payer MEDICAID, SELFPAY | PROVIDERS: Emergency Provider Emergency Medicine Emergency Medical Services; Visit Provider Radiology Diagnostic Radiology | DX: R41.82 Altered mental status, unspecified (principal); I63.9 Cerebral infarction, unspecified; R50.9 Fever, unspecified | CPT/HCPCS: 70450; 71045 ==

== ENCOUNTER → 2025-07-11 09:00 | Outpatient (BNV) | payer MEDICAID, SELFPAY | PROVIDERS: Admitting Provider Student in an Organized Health Care Education/Training Program; Emergency Provider Emergency Medicine Emergency Medical Services; Visit Provider Internal Medicine Cardiovascular Disease | DX: I25.2 Old myocardial infarction (principal) | CPT/HCPCS: 93010 ==

== ENCOUNTER → 2025-07-11 14:41 | Outpatient (BNV) | payer MEDICAID, SELFPAY | PROVIDERS: Admitting Provider Student in an Organized Health Care Education/Training Program; Emergency Provider Emergency Medicine Emergency Medical Services; Visit Provider Student in an Organized Health Care Education/Training Program | DX: N39.0 Urinary tract infection, site not specified (principal); R41.82 Altered mental status, unspecified; N17.9 Acute kidney failure, unspecified | CPT/HCPCS: 99223; 99232; 99239; G0180 ==

== ENCOUNTER → 2025-07-11 14:41 | Outpatient (BNV) | payer OTHER, SELFPAY | PROVIDERS: Admitting Provider Student in an Organized Health Care Education/Training Program; Emergency Provider Emergency Medicine Emergency Medical Services; PCP Family Medicine; Visit Provider Registered Nurse | DX: F41.1 Generalized anxiety disorder (principal) | CPT/HCPCS: 99232 ==

== ENCOUNTER 2025-07-30 14:50 | Outpatient (AMB) | payer MEDICAID, SELFPAY ==
--- NOTE | 2025-07-30 15:06 | MHC.OFFVIS ---
Intake Visit Reasons: Urinary tract infection Intake Note: Patient is present for URINARY TRACT INFECTION Urology Medication:VITAMIN,METHENAMINE HUYPPURATE Antibiotic Allergy:NONE Blood Thinner:NONE Trailer Chief Required: No Allergies No Known Allergies Allergy (Verified 07/30/25 15:08) HPI Comments Details: Cheryl is a 59-year-old female patient of Dr. Paul. She has a past medical history of hyper thyroidism, hemiparesis affecting left side as late effect of stroke, hypotonic bladder, GERD, hyperlipidemia, and hypertension. She presents to the office today for follow-up of her neurogenic bladder/urinary retention. In discussion with the patient today she reports over the last few months she has been undergoing Quinonez catheter changes through our emergency room as she has been unable to make it to her office appointments. We did discuss attempting to obtain VNA services for Quinonez catheter changes. We also discussed the importance of following up as planned. She is requesting Quinonez catheter be changed during today's office visit. Nursing in to change indwelling Quinonez catheter. Patient with a history of CVA February of 2024 and has since had issues with incomplete bladder emptying and urinary retention in his had voiding trials that were unsuccessful and has since had an indwelling Quinonez catheter. Previous workup has included a retroperitoneal ultrasound 05/31 results were reviewed with the patient today. Bilateral kidneys are normal in size, contour, and echogenicity. No renal calculi or hydronephrosis noted bilaterally. Left kidney with simple cysts measuring a proximally 1.3 cm. The bladder is decompressed with Quinonez catheter present. We discussed further treatment options of incomplete bladder emptying/urinary retention. She is adamant throughout today's appointment that she would like to continue with Quinonez catheter changes in office however we did discussed importance of following up as planned. She denies hematuria, flank pain, fever, and or chills. She otherwise offers no other issues or concerns at this time. 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 Housing: Apartment Do you presently have visiting nurse or other home services: Yes (ASSISTANT [employer]OR [employer] OPERATIONS lives with pt, VNA 1x/week.) Alcohol intake: current Alcohol intake frequency: does not drink Alcohol type: beer Patient Tobacco Use Status: Never used Tobacco Substance Use Type: Marijuana Advance Directives Date on File: 05/30/25 service: No Current occupational status: retired and disabled 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 Review of Systems Const Reports as per HPI Eyes Reports no additional complaints ENT Reports no additional complaints Card Reports as per HPI Resp Reports as per HPI GI Reports as per HPI Reports as per HPI Musc Reports as per HPI Neuro Reports as per HPI Psych Reports as per HPI Endo Reports no additional complaints Alfred/Lymph Reports no additional complaints Aller/Immun Reports no additional complaints Physical Exam Const General: cooperative, comfortable, no acute distress, well developed, alert and awake Orientation/consciousness: patient oriented x3 (vague ) Limitations: wheelchair (motorized ) HEENT Head: Yes normal to inspection, Yes normocephalic and Yes atraumatic Ears: hearing grossly normal bilaterally Eyes General: appearance normal, both eyes and all related structures Neck Neck: Yes normal visual inspection and Yes trachea midline Chest Chest palpation & inspection: normal inspection of the chest Resp Effort & Inspection: normal respiratory effort and able to speak in complete sentences Cardio Rate: regular rate GI Inspection: Yes normal to inspection General: Yes no CVA tenderness Back/Spine/Pelvis Back: no CVA tenderness Skin General skin exam: no rashes or lesions noted Neuro General: patient oriented x3 (vague ) Extrem General: Yes normal to inspection Psych Appearance: grossly normal and well kempt Mental Status: mental status grossly normal Speech and movement: Clear speech present Affect: normal affect Thought content: Normal thought content present Insight: Fair insight present (Psych) Judgement: Fair judgement present (Psych) Assessment & Plan Assessment & Plan (1) Incomplete bladder emptying: Code(s): R33.9 - Retention of urine, unspecified Category: Medical (2) Hypotonic bladder: Code(s): N31.2 - Flaccid neuropathic bladder, not elsewhere classified Category: Medical Plan We discussed further treatment options of incomplete bladder emptying/urinary retention/neurogenic bladder. Discussed plan of care with nursing will further assess VNA services verses in office follow-up with nursing to change Quinonez catheter monthly. Continue methenamine and vitamin-C as discussed and prescribed. We discussed importance of following up as planned and importance in doing so. We discussed potential causes of urinary retention as well as recurrent urinary tract infections as well as further treatment options and risks and benefits of these treatment options. All questions were answered. Follow-up with provider in 6 months. Orders: Orders AMB Urinalysis Automated Today Z13.9 - Encounter for screening, unspecified Patient Instructions: The patient had an opportunity to ask questions regarding the treatment plan. All questions were answered. Physical exam, labs, and imaging were discussed and reviewed in detail. As well as risks, benefits, and discussion of treatment choices. No major barriers to understanding were identified. The patient expressed understanding and agreement with the above treatment plan. The patient was made aware they should contact our office by phone for worsening of their current condition, the appearance of new symptoms, or with any questions or concerns. Compliance is encouraged with any medications and follow up testing that is ordered. It is a privilege to be allowed the opportunity to participate in? your urological care.? Again, if you have any questions or concerns If you have any questions or concerns please do not hesitate to contact me. The office is [phone]. This note is constructed using voice recognition software. While every effort has been made to ensure accuracy merchant mariner errors may have been included. Yours sincerely, CAMPOS Flores Coding Level of Care Code Est Pt Level 3 (21555) Complex EM visit Add On G2211 Diagnoses Incomplete bladder emptying R33.9 Hypotonic bladder N31.2
--- OUTSIDE RECORDS SUMMARY | 2025-07-30 17:22 | XMS_ITS | Encounter Summary ---
Author Organization [employer] [facility] Address [address] [place] [address] [address] [place] [address] Care Team Providers Care Conveyor Weigher Operator Name Role Phone Aliza Paul DO Primary Care Provider [phone] Lesley Ingram Unavailable Rosi Castro RN Unavailable [phone] Rosi Castro RN Unavailable [phone] Lesley Ingram Unavailable Rocio Ingram RN Unavailable [phone] Kathrine Blank Unavailable Encounter Details st
--- OUTSIDE RECORDS SUMMARY | 2025-07-30 17:23 | XMS_ITS | Encounter Summary ---
Demographics Address [address] [place] [address] Mobile Phone Work Phone
--- OUTSIDE RECORDS SUMMARY | 2025-07-30 17:23 | XMS_ITS ---
Encounter Summary Created on: July 30, 2025
== END 2025-07-30 15:50 | disposition home or self-care (01) ==
LOC: HO.HUSH 14:50
PROVIDERS: PCP Family Medicine; Visit Provider Nurse Practitioner Family
DX: R33.9 Retention of urine, unspecified (principal); N31.2 Flaccid neuropathic bladder, not elsewhere classified
CPT/HCPCS: 99213

== ENCOUNTER → 2025-07-30 14:50 | Outpatient (BNVA) | payer MEDICAID, SELFPAY | PROVIDERS: PCP Family Medicine; Visit Provider Nurse Practitioner Family | DX: N13.2 Hydronephrosis with renal and ureteral calculous obstruction (principal); R33.9 Retention of urine, unspecified | CPT/HCPCS: 99212 ==

== ENCOUNTER 2025-08-16 08:19 | Emergency (ER) | payer MEDICAID, SELFPAY ==
--- NOTE | ~2025-08-16 | XR_ITS ---
EXAMINATION: XR SHOULDER 2 OR MORE VIEWS RIGHT HISTORY: pain COMPARISON: Comparison is made with the prior examination dated 12/05/2024. FINDINGS: Five views of the right shoulder are submitted. Osseous mineralization is normal. Again seen is an old fracture deformity of the humeral neck. No acute fracture or dislocation is seen. The glenohumeral joint is maintained. There is moderate narrowing of the AC joint. The soft tissues are unremarkable. XR/XR shoulder RT min 2V IMPRESSION: Moderate narrowing of the AC joint. Old healed fracture deformity of the humeral neck. Electronically signed by: Ulises Mir MD 08/16/2025 08:55 AM EDT
[2025-08-16 08:32] VITALS: BP 148/86; BP 216/130; PULSE 63; PULSE 70; RESP 16; TEMP 36.4; O2SAT 96; O2SAT 98; BMI 35.4
--- NOTE | 2025-08-16 08:33 | ECG_ITS ---
Test Reason : pain Blood Pressure : */* mmHG Vent. Rate : 62 BPM Atrial Rate : 62 BPM P-R Int : 148 ms QRS Dur : 78 ms QT Int : 418 ms P-R-T Axes : 28 -35 6 degrees QTcB Int : 424 ms Poor data quality, interpretation may be adversely affected Normal sinus rhythm Left axis deviation Moderate voltage criteria for LVH, may be normal variant ( R in aVL , Gibson product ) Nonspecific ST abnormality Abnormal ECG When compared with ECG of 11-Jul-2025 09:03, Nonspecific T wave abnormality no longer evident in Lateral leads Referred By: Nate Pope Electronically Signed By: BRIELLE LUND MD
--- NOTE | 2025-08-16 08:36 | ED.EXTPRO ---
HPI - Extremity Problem General Chief complaint: Extremity Injury, Upper Stated complaint: R SHOULDER/NECK PAIN FOR DAYS PER EMS Time Seen by Provider: 08/16/25 08:26 Source: patient Mode of arrival: ambulatory Limitations: no limitations History of Present Illness ED Provider: HPI Narrative: 59-year-old woman reports history of fracture of her right shoulder, presenting with atraumatic right shoulder pain, pain is worse with overhead activity, over her trapezium as well, she occasionally has this discomfort. No fevers or chills no chest pain or shortness of breath reported. No numbness or tingling in her hand. Did not take blood pressure medications this morning, noted to be hypertensive. Related Data Home Medications ?Medication ?Instructions ?Recorded ?Confirmed fluticasone propionate 50 2 spray intranasal DAILY PRN 11/18/21 07/11/25 mcg/actuation nasal Allergy Symptoms spray,suspension acetaminophen 650 mg 650 mg PO Q12H PRN pain 07/20/24 07/11/25 tablet,extended release albuterol sulfate 90 mcg/actuation 2 puff inhalation Q4-6H PRN 07/20/24 07/11/25 aerosol inhaler Shortness Of Breath Or Wheezing baclofen 10 mg tablet 10 mg PO TID PRN muscle spasm 07/20/24 07/11/25 buspirone 10 mg tablet 10 mg BID 07/20/24 07/11/25 cholecalciferol (vitamin D3) 50 50 mcg DAILY 07/20/24 07/11/25 mcg (2,000 unit) capsule hydroxyzine HCl 50 mg tablet 50 mg PO Q6H PRN anxiety 07/20/24 07/11/25 venlafaxine 75 mg capsule,extended 75 mg PO DAILY 07/20/24 07/11/25 release 24 hr aripiprazole 2 mg tablet 2 mg PO DAILY 11/23/24 07/11/25 lisinopril 10 mg tablet 10 mg PO DAILY 11/23/24 07/11/25 cetirizine 10 mg tablet 10 mg PO DAILY 07/11/25 07/11/25 gabapentin 400 mg capsule 400 mg PO TID 07/11/25 07/11/25 naproxen 500 mg tablet 500 mg PO BIDWM pain 07/11/25 07/11/25 Held on 07/13/25. Instructions: Resume on 07/18/25. Previous Rx's ?Medication ?Instructions ?Recorded ipratropium 0.5 mg-albuterol 3 mg 3 ml inhalation RQ4H WHILE AWAKE 11/25/24 (2.5 mg base)/3 mL nebulization PRN Shortness Of Breath/Wheezing soln #90 mL methenamine hippurate 1 gram tablet 1 g PO DAILY 90 days #90 tabs 12/14/24 ascorbic acid (vitamin C) 1,000 mg 1,000 mg PO DAILY 90 days #90 tabs 07/10/25 tablet amlodipine 2.5 mg tablet 2.5 mg PO DAILY #90 tabs 07/13/25 cefuroxime axetil 500 mg tablet 500 mg PO Q12H #11 tabs 07/13/25 methylprednisolone 4 mg tablets in 4 mg PO DAILY #21 ea 08/16/25 a dose pack (Medrol (Shlomo)) Allergies Allergy/AdvReac Type Severity Reaction Status Date / Time No Known Allergies Allergy Verified 08/16/25 08:35 Review of Systems Constitutional: Constitutional: Reports as per [facility] Past Medical History Medical History Hyperthyroidism Hemiparesis affecting left side as late effect of stroke Hypotonic bladder H/O urinary retention GERD (gastroesophageal reflux disease) Hyperlipidemia HTN (hypertension) PFO (patent foramen ovale) Patellofemoral arthrosis Knee derangement Surgical History History of surgery Social History Social History Household Members: Other Household Members Other:: [employer] Housing: Apartment Do you presently have visiting nurse or other home services: Yes ([employer] lives with pt, VNA 1x/week.) Alcohol intake: current Alcohol intake frequency: does not drink Alcohol type: beer Patient Tobacco Use Status: Never used Tobacco Substance Use Type: Marijuana Advance Directives: Yes Advance Directives on File: Yes Advance Directives Date on File: 05/30/25 service: No Current occupational status: retired and disabled 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 ?CV: RRR, no obvious murmurs appreciated ? ?Resp: ?No wheezing rales rhonchi no stridor moving air well ? Abd: ?Bowel sounds are present, no tenderness no rebound no rigidity ? ?MSK: Positive impingement signs on the right shoulder both Kendall and Neer's, distally radial ulnar pulses +2, she is able to squeeze my hand spread her fingers hitchhike a thumb, tenderness along trapezius ? Skin: Warm, dry, intact, ? ?Neuro: ?Alert and oriented x3, moving upper and lower extremities symmetrically, no obvious facial asymmetry noted, cranial nerves 2-12 intact Medications Administered Discontinued Medications Generic Name Dose Route Start Last Admin Trade Name Jessi PRN Reason Stop Dose Admin Amlodipine Besylate 5 mg 08/16/25 09:21 08/16/25 09:31 Amlodipine Besylate 5 Mg Tablet PO 08/16/25 09:22 5 mg ONCE ONE Administration Protocol Clonidine HCl 0.1 mg 08/16/25 09:21 08/16/25 09:31 Clonidine Hcl 0.1 Mg Tablet PO 08/16/25 09:22 0.1 mg ONCE ONE Administration Protocol Dexamethasone 6 mg 08/16/25 09:15 08/16/25 09:30 Dexamethasone 2 Mg Tablet PO 08/16/25 09:16 6 mg ONCE ONE Administration Ketorolac Tromethamine 15 mg 08/16/25 08:33 08/16/25 09:02 Ketorolac Tromethamine 15 Mg/Ml Vial IM 08/16/25 08:34 15 mg ONCE ONE Administration Lisinopril 10 mg 08/16/25 09:21 08/16/25 09:31 Lisinopril 10 Mg Tablet PO 08/16/25 09:22 10 mg ONCE ONE Administration Protocol Oxycodone HCl 5 mg 08/16/25 10:06 08/16/25 10:38 Oxycodone Hcl Immed Release 5 Mg Tablet PO 08/16/25 10:07 5 mg ONCE ONE Administration Medical Decision Making Medical Decision Making MDM Narrative: 8:49 AM 08/16/2025 (Dr. Nate Pope): Patient is presenting with pain right shoulder, worse with overhead activity, positive impingement signs, no evidence for neurovascular compromise on physical examination, unlikely that this is related to ACS we will obtain ECG however, otherwise we will medicate for pain, we will obtain x-ray to evaluate for any fractures dislocations arthritic changes etc. did not feel that further workup is indicated such as cardiac enzymes CBC etc she was noted to be significantly hypertensive and she did not take her medications in the morning, she is not experiencing severe chest pain radiating into her back to suspect aortic dissection, ECGs 62 beats per minute moderate LVH without any evidence to suspect underlying ACS or end-organ damage from hypertension, with that said I we will medicate her, monitor her, pain is likely another contributed to her presentation and if she is not improving we will expand my workup 10:07 AM 08/16/2025 (Dr. Nate Pope): Re-evaluated patient, she is still having shoulder pain, received all her medications I will add oxycodone, and we will revital her blood pressure 10:48 AM 08/16/2025 (Dr. Nate Pope): Patient feels better, blood pressure is better with her medications, will discharge Differential Diagnosis Differential Diagnoses: The differential diagnosis associated with the presentation includes (Shoulder impingement, rotator cuff tear, dislocation, ACS, neurovascular compromise) Independent Interpretation I performed an independent interpretation of an: EKG (62 beats per minute, left axis deviation, otherwise normal ECG without dysrhythmia, AV olu blocks or ST-T changes to suspect underlying ACS, my independent interpretation) and Plain X-Ray (AC joint arthrosis no fracture or dislocation, evidence of prior humeral neck fracture which is now healed) Radiology Impression Discussion of test interpretation with radiology: I have reviewed the radiologist's reading. Radiologist Impression: Moderate narrowing of the AC joint. Old healed fracture deformity of the humeral neck. Discharge Plan Discharge Clinical Impression: Arthralgia of right shoulder region, Chronic hypertension Patient Disposition: Home, Self-Care Additional Instructions: Bag of ice to his shoulder every day for 20 minutes, gentle [id number] exercises, start steroids starting tomorrow, Tylenol 975 mg every 6 hours needed for pain Follow up with your PCP for re-evaluation, your blood pressure was elevated initially when you came in with medications that you take an regular basis it improved Any chest pain shortness of breath any other concerns come back to the ER I will also refer you for orthopedic surgery you may need additional testing such as MRI and physical therapy Prescriptions: New methylprednisolone [Medrol (Shlomo)] 4 mg tablets,dose pack 4 mg PO DAILY Qty: 21 0RF Rx Instructions: Day 1: 24 mg on day 1 administered as 8 mg before breakfast, 4 mg after lunch, 4 mg after supper, and 8 mg at bedtime or 24 mg as a single dose or divided into 2 or 3 doses upon initiation. Day 2: 20 mg on day 2 administered as 4 mg before breakfast, 4 mg after lunch, 4 mg after supper, and 8 mg at bedtime. Day 3: 16 mg on day 3 administered as 4 mg before breakfast, 4 mg after lunch, 4 mg after supper, and 4 mg at bedtime. Day 4: 12 mg on day 4 administered as 4 mg before breakfast, 4 mg after lunch, and 4 mg at bedtime. Day 5: 8 mg on day 5 administered as 4 mg before breakfast and 4 mg at bedtime. Day 6: 4 mg on day 6 administered as 4 mg before breakfast. No Action ascorbic acid (vitamin C) 1,000 mg tablet 1,000 mg PO DAILY 90 Days Qty: 90 1RF venlafaxine 75 mg capsule,extended release 24hr 75 mg PO DAILY hydroxyzine HCl 50 mg tablet 50 mg PO Q6H PRN (Reason: anxiety) acetaminophen 650 mg tablet extended release 650 mg PO Q12H PRN (Reason: pain) buspirone 10 mg tablet 10 mg BID cholecalciferol (vitamin D3) 50 mcg (2,000 unit) capsule 50 mcg DAILY baclofen 10 mg tablet 10 mg PO TID PRN (Reason: muscle spasm) albuterol sulfate 90 mcg/actuation Hfa Aerosol Inhaler 2 puff INHALATION Q4-6H PRN (Reason: Shortness Of Breath Or Wheezing) lisinopril 10 mg tablet 10 mg PO DAILY aripiprazole 2 mg tablet 2 mg PO DAILY ipratropium-albuterol 0.5 mg-3 mg(2.5 mg base)/3 mL Solution For Nebulization 3 ml inhalation RQ4H WHILE AWAKE PRN (Reason: Shortness Of Breath/Wheezing) Qty: 90 0RF cetirizine 10 mg tablet 10 mg PO DAILY gabapentin 400 mg capsule 400 mg PO TID naproxen 500 mg tablet 500 mg PO BIDWM amlodipine 2.5 mg Tablet 2.5 mg PO DAILY Qty: 90 0RF Protocol: Hold for SBP< HOLD for SBP < : 90 cefuroxime axetil 500 mg tablet 500 mg PO Q12H Qty: 11 0RF fluticasone propionate 50 mcg/actuation spray,suspension 2 spray intranasal DAILY PRN (Reason: Allergy Symptoms) methenamine hippurate 1 gram tablet 1 g PO DAILY 90 Days Qty: 90 1RF Referrals: Aliza Paul DO [Primary Care Provider, Internal Medicine] - 2 weeks Clinical Impression: Chronic hypertension; Arthralgia of right shoulder region [facility] [place]Provider Group] - 10 days Clinical Impression: Arthralgia of right shoulder region Print Language: Palauan
[2025-08-16 10:29] VITALS: BP 164/75; PULSE 55; RESP 18; O2SAT 94
[2025-08-16] MEDS: oxyCODONE HCl Immed Release 5 MG TABLET PO (10:38)
--- NOTE | 2025-08-16 14:05 | PC.NURSE ---
pt waiting in the hallway for EMS ride home. states she is very anxious and at home would take 50mg Atarax. Per verbal order Dr. Pope ok to give 50mg atarax
[2025-08-16 15:09] VITALS: BP 121/68; PULSE 69; RESP 18; O2SAT 94
[2025-08-16 15:16] VITALS: BP 121/68; PULSE 69; RESP 18; TEMP 36.5; O2SAT 94
== END 2025-08-16 16:45 | disposition home or self-care (01) ==
PROVIDERS: Emergency Provider Emergency Medicine; PCP Family Medicine
DX: M25.511 Pain in right shoulder (principal); I10 Essential (primary) hypertension
CPT/HCPCS: 73030; 93005; 96372; 99284; 99285; J1885; J8540

== ENCOUNTER → 2025-08-16 08:33 | Outpatient (BNV) | payer MEDICAID, SELFPAY | PROVIDERS: Emergency Provider Emergency Medicine; Visit Provider Radiology Diagnostic Radiology | DX: M19.011 Primary osteoarthritis, right shoulder (principal) | CPT/HCPCS: 73030 ==

== ENCOUNTER → 2025-08-16 08:33 | Outpatient (BNV) | payer MEDICAID, SELFPAY | PROVIDERS: Emergency Provider Emergency Medicine; PCP Family Medicine; Visit Provider Internal Medicine Cardiovascular Disease | DX: R94.31 Abnormal electrocardiogram [ECG] [EKG] (principal); R07.9 Chest pain, unspecified | CPT/HCPCS: 93010 ==

== ENCOUNTER 2025-08-20 18:59 | Emergency (ER) | payer MEDICAID, SELFPAY ==
[2025-08-20 19:05] VITALS: BP 140/90; BP 148/75; PULSE 77; PULSE 87; RESP 19; TEMP 36.6; O2SAT 96; O2SAT 98; BMI 35.1
[2025-08-20 19:47] LABS: MANUAL DIFF FLAG NO
[2025-08-20 19:57] LABS: Hematocrit 42.0 % (37.0-47.0); Hemoglobin 14.0 g/dl (12.0-16.0); Imm Gran Abs Auto 0.01 X10*3/uL (0.00-0.03); Imm Gran Pct Auto 0.1 % (0.0-0.4); Lymphocytes Absolute Auto 3.3 X10*3/uL (1.2-4.9); Mean Corpuscular HGB Conc 33.3 g/dl (31.0-35.0); Mean Corpuscular Hemoglobin 27.7 pg (27.0-33.0); Mean Corpuscular Volume 83.0 fL (80.0-98.0); NRBC Abs Auto 0.000 X10*3/uL (0.0-0.012); NRBC Pct Auto 0.0 /100WBC (0.0-0.2); Platelet Count 291 X10*3/uL (160-400); Red Blood Count 5.06 X10*6/uL (4.20-5.50); White Blood Count 7.8 X10*3/uL (4.8-10.8)
[2025-08-20 20:00] LABS: Anion Gap 11 (12-20); Blood Urea Nitrogen 20 mg/dL (9-16); Calcium 8.5 mg/dL (8.4-10.2); Carbon Dioxide 23 mmol/L (22-29); Chloride 114 mmol/L (96-108); Creatinine Clr Calc Pharmacy 90.7; Estimated Glomerular Filt Rate > 60; Potassium 3.7 mmol/L (3.3-5.1); Sodium 144 mmol/L (135-145)
--- NOTE | 2025-08-20 20:13 | ED.FEMALEGU ---
HPI - Female Genitourinary General Chief complaint: Urogenital-Female Stated complaint: Catheter obstruction painful low urine output Time Seen by Provider: 08/20/25 20:04 Source: patient and EMS Mode of arrival: EMS Limitations: no limitations History of Present Illness ED Provider: Demetrio WEBER HPI Narrative: The patient is a 59-year-old female with a history of chronic Quinonez catheterization secondary to a hypotonic bladder which was previously managed by self catheterization until the patient suffered a stroke resulting in inability to manage self-catheterization. The patient reports her Quinonez catheter was placed 3 weeks ago, but she often suffers from recurrent catheter associated UTIs. The patient reports she emptied her catheter bag this morning, however throughout the day noted decreased urinary output, reporting only a total of 400 mL urinary output. Patient also noted increased sediment in the catheter which she states has previously presented with her infections. The patient reports the Quinonez catheter was placed 3 weeks ago and is changed on a monthly basis. Patient denies associated fever/chills, nausea, vomiting, abdominal pain, or other acute somatic complaint. The patient denies any associated hematuria. Related Data Home Medications ?Medication ?Instructions ?Recorded ?Confirmed fluticasone propionate 50 2 spray intranasal DAILY PRN 11/18/21 07/11/25 mcg/actuation nasal Allergy Symptoms spray,suspension acetaminophen 650 mg 650 mg PO Q12H PRN pain 07/20/24 07/11/25 tablet,extended release albuterol sulfate 90 mcg/actuation 2 puff inhalation Q4-6H PRN 07/20/24 07/11/25 aerosol inhaler Shortness Of Breath Or Wheezing baclofen 10 mg tablet 10 mg PO TID PRN muscle spasm 07/20/24 07/11/25 buspirone 10 mg tablet 10 mg BID 07/20/24 07/11/25 cholecalciferol (vitamin D3) 50 50 mcg DAILY 07/20/24 07/11/25 mcg (2,000 unit) capsule hydroxyzine HCl 50 mg tablet 50 mg PO Q6H PRN anxiety 07/20/24 07/11/25 venlafaxine 75 mg capsule,extended 75 mg PO DAILY 07/20/24 07/11/25 release 24 hr aripiprazole 2 mg tablet 2 mg PO DAILY 11/23/24 07/11/25 lisinopril 10 mg tablet 10 mg PO DAILY 11/23/24 07/11/25 cetirizine 10 mg tablet 10 mg PO DAILY 07/11/25 07/11/25 gabapentin 400 mg capsule 400 mg PO TID 07/11/25 07/11/25 naproxen 500 mg tablet 500 mg PO BIDWM pain 07/11/25 07/11/25 Held on 07/13/25. Instructions: Resume on 07/18/25. Previous Rx's ?Medication ?Instructions ?Recorded ipratropium 0.5 mg-albuterol 3 mg 3 ml inhalation RQ4H WHILE AWAKE 11/25/24 (2.5 mg base)/3 mL nebulization PRN Shortness Of Breath/Wheezing soln #90 mL methenamine hippurate 1 gram tablet 1 g PO DAILY 90 days #90 tabs 12/14/24 ascorbic acid (vitamin C) 1,000 mg 1,000 mg PO DAILY 90 days #90 tabs 07/10/25 tablet amlodipine 2.5 mg tablet 2.5 mg PO DAILY #90 tabs 07/13/25 cefuroxime axetil 500 mg tablet 500 mg PO Q12H #11 tabs 07/13/25 methylprednisolone 4 mg tablets in 4 mg PO DAILY #21 ea 08/16/25 a dose pack (Medrol (Shlomo)) cephalexin 500 mg capsule 500 mg PO QID #28 caps 08/20/25 Allergies Allergy/AdvReac Type Severity Reaction Status Date / Time No Known Allergies Allergy Verified 08/20/25 19:11 Review of Systems Review of Systems: Yes all other systems are reviewed and are negative [facility] Past Medical History Medical History Hyperthyroidism Hemiparesis affecting left side as late effect of stroke Hypotonic bladder H/O urinary retention GERD (gastroesophageal reflux disease) Hyperlipidemia HTN (hypertension) PFO (patent foramen ovale) Patellofemoral arthrosis Knee derangement Surgical History History of surgery Social History Social History Household Members: Other 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 Housing: Apartment Do you presently have visiting nurse or other home services: Yes (BOILER HOUSE MECHANIC lives with pt, VNA 1x/week.) Alcohol intake: current Alcohol intake frequency: does not drink Alcohol type: beer Patient Tobacco Use Status: Never used Tobacco Substance Use Type: Marijuana Advance Directives: Yes Advance Directives on File: Yes Advance Directives Date on File: 05/30/25 service: No Current occupational status: retired and disabled 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 Vital signs as documented. HEAD: Atraumatic, normocephalic. EYES: EOMs grossly intact, pupils equal, conjunctiva clear, no exudate. ENT: Nares patent, no discharge. Airway patent, no audible stridor, visible mucosa is pink and moist without noted lesions. NECK: Trachea is midline, no obvious masses or gross abnormalities. CHEST: Symmetric movement, normal appearance. LUNGS: LS present and CTAB, no w/r/r. Non-labored work of breathing. CARDIAC: Regular Rhythm, S1/S2 appreciated, no murmurs, rubs or gallops. ABDOMEN: Abdomen soft and non-tender x4 quadrants, no palpable masses or organomegaly. : Quinonez catheter in place, draining clear yellow urine. Exam otherwise deferred. EXTREMITIES: Normal tone, moves all extremities spontaneously without reported pain. No obvious acute injury or deformity noted. NEURO: Alert and oriented x3, CN II-XII appear grossly intact. Cerebellar Functioning grossly intact. No obvious sensory or motor deficits. Speech clear and appropriate. PSYCH: normal affect, appropriate eye contact, fluid speech, with appropriate response to questioning. No reported suicidality or homicidality. SKIN: Warm, dry, color appropriate, normal turgor. No rashes noted. Medical Decision Making Medical Decision Making [facility] Narrative: 9:27 PM 08/20/2025 (Paddy WEBER): The patient is a 59-year-old female with a history of chronic Quinonez catheterization secondary to a hypotonic bladder which was previously managed by self catheterization until the patient suffered a stroke resulting in inability to manage self-catheterization. The patient reports her Quinonez catheter was placed 3 weeks ago, but she often suffers from recurrent catheter associated UTIs. The patient reports she emptied her catheter bag this morning, however throughout the day noted decreased urinary output, reporting only a total of 400 mL urinary output. Patient also noted increased sediment in the catheter which she states has previously presented with her infections. The patient reports the Quinonez catheter was placed 3 weeks ago and is changed on a monthly basis. Patient denies associated fever/chills, nausea, vomiting, abdominal pain, or other acute somatic complaint. The patient denies any associated hematuria. The patient's laboratory evaluation shows no leukocytosis, anemia, significant electrolyte abnormality, or ANISA. Patient's urinalysis shows proteinuria, large blood, and moderate leukocyte esterase, microscopic analysis is pending. The patient's bladder scan prior to replacement of Quinonez catheter was 67, down to 50 after replacement. We will await microscopic urinalysis and treat accordingly. 9:38 PM 08/20/2025 (Paddy WEBER): Patient's urinalysis has full resulted and microscopic shows leukocyte esterase, RBCs, WBCs, with 1+ bacteria. Patient will be treated with cephalexin and discharged to follow up with her PCP and neurologist. Admission/Observation Consideration of admission/observation: Escalation of care including admission/observation considered Lab Data MDM Lab Attestation statement: I reviewed the patient's lab results. 08/20/25 19:42 08/20/25 19:42 Labs: Lab Results 08/20/25 08/20/25 Range/Units 19:42 20:24 WBC 7.8 (4.8-10.8) X10*3/uL RBC 5.06 (4.20-5.50) X10*6/uL Hgb 14.0 (12.0-16.0) g/dl Hct 42.0 (37.0-47.0) % MCV 83.0 (80.0-98.0) fL MCH 27.7 (27.0-33.0) pg MCHC 33.3 (31.0-35.0) g/dl RDW 11.8 (11.0-16.0) % Plt Count 291 D (160-400) X10*3/uL MPV 9.9 (9.4-12.3) fL Immature Gran % (Auto) 0.1 (0.0-0.4) % Neut % (Auto) 45.2 (45-73) % Lymph % (Auto) 42.1 H (20-40) % [place] % (Auto) 8.2 (2-11) % Eos % (Auto) 3.8 (0-4) % Baso % (Auto) 0.6 (0-2) % Lymph # (Auto) 3.3 (1.2-4.9) X10*3/uL [place] # (Auto) 0.6 (0.1-1.2) X10*3/uL Eos # (Auto) 0.3 (0.0-0.4) X10*3/uL Baso # (Auto) 0.1 (0.0-0.2) X10*3/uL Abs Immat Gran (auto) 0.01 (0.00-0.03) X10*3/uL Absolute Neuts (auto) 3.5 (2.0-8.3) x10*3/uL Absolute Nucleated RBC 0.000 (0.0-0.012) X10*3/uL Nucleated RBC % (auto) 0.0 (0.0-0.2) /100WBC Sodium 144 (135-145) mmol/L Potassium 3.7 (3.3-5.1) mmol/L Chloride 114 H (96-108) mmol/L Carbon Dioxide 23 (22-29) mmol/L Anion Gap 11 L (12-20) BUN 20 H (9-16) mg/dL Creatinine 0.71 (0.5-1.4) mg/dL Estim Creat Clear Calc 90.7 Estimated GFR > 60 Random Glucose 102 (60-115) mg/dL Calcium 8.5 (8.4-10.2) mg/dL Urine Color Yellow Urine Appearance Cloudy Urine pH 5.5 (5.0-9.0) Ur Specific [place] >= 1.030 H (1.005-1.025) Urine Protein 300 (3+) H (Neg-Trace) mg/dL Urine Glucose (UA) Negative (Negative) mg/dL Urine Ketones Negative (Negative) mg/dL Urine Blood Large (3+) H (Negative) Urine Nitrite Negative (Negative) Ur Leukocyte Esterase Moderate (2+) H (Negative) Urine RBC >20 H (0-2) /HPF Urine WBC >50 H (0-5) /HPF Ur Squamous Epith Cells 0-2 (0-2) /HPF Calcium Oxalate Crystal Present Urine Bacteria 1+ (None Seen) Hyaline Casts 3-5 (0-2) /LPF Discharge Plan Discharge Clinical Impression: Catheter-associated urinary tract infection Qualifiers: Indwelling urinary catheter type: indwelling urethral catheter Encounter type: initial encounter Qualified Code(s): T83.511A - Infection and inflammatory reaction due to indwelling urethral catheter, initial encounter Patient Disposition: Home, Self-Care Instructions: Urinary Tract Infection in Women (ED), Catheter-associated Urinary Tract Infection (ED) Additional Instructions: Thank you for choosing [facility] Emergency Department for your care today. Your Quinonez catheter was replaced today. Thankfully your laboratory evaluation shows no evidence of kidney dysfunction or systemic infection. At this time there is no indication for admission to the hospital or continued ED observation, and it is safe to discharge you home. Your urinalysis does show evidence of a catheter associated urinary tract infection, please take cephalexin as prescribed until finished. Please stay well hydrated and get plenty of rest. Please follow up with your primary care physician and urologist for re-evaluation, additional management of your symptoms, and continued preventative care. If you do not have a primary care physician, please call the [facility] at [phone] to establish a new primary care physician. While waiting to establish your new primary care physician, you can call our [facility] at [phone] for non-emergency needs. Please return to the emergency department if you develop a severe or sudden change in your symptoms, a fever over 100.4 that does not improve with Tylenol or Ibuprofen, recurrent vomiting, or any other new or worsening symptoms or concerns. Prescriptions: New cephalexin 500 mg capsule 500 mg PO QID Qty: 28 0RF No Action ascorbic acid (vitamin C) 1,000 mg tablet 1,000 mg PO DAILY 90 Days Qty: 90 1RF venlafaxine 75 mg capsule,extended release 24hr 75 mg PO DAILY hydroxyzine HCl 50 mg tablet 50 mg PO Q6H PRN (Reason: anxiety) acetaminophen 650 mg tablet extended release 650 mg PO Q12H PRN (Reason: pain) buspirone 10 mg tablet 10 mg BID cholecalciferol (vitamin D3) 50 mcg (2,000 unit) capsule 50 mcg DAILY baclofen 10 mg tablet 10 mg PO TID PRN (Reason: muscle spasm) albuterol sulfate 90 mcg/actuation Hfa Aerosol Inhaler 2 puff INHALATION Q4-6H PRN (Reason: Shortness Of Breath Or Wheezing) lisinopril 10 mg tablet 10 mg PO DAILY aripiprazole 2 mg tablet 2 mg PO DAILY ipratropium-albuterol 0.5 mg-3 mg(2.5 mg base)/3 mL Solution For Nebulization 3 ml inhalation RQ4H WHILE AWAKE PRN (Reason: Shortness Of Breath/Wheezing) Qty: 90 0RF methylprednisolone [Medrol (Shlomo)] 4 mg tablets,dose pack 4 mg PO DAILY Qty: 21 0RF Rx Instructions: Day 1: 24 mg on day 1 administered as 8 mg before breakfast, 4 mg after lunch, 4 mg after supper, and 8 mg at bedtime or 24 mg as a single dose or divided into 2 or 3 doses upon initiation. Day 2: 20 mg on day 2 administered as 4 mg before breakfast, 4 mg after lunch, 4 mg after supper, and 8 mg at bedtime. Day 3: 16 mg on day 3 administered as 4 mg before breakfast, 4 mg after lunch, 4 mg after supper, and 4 mg at bedtime. Day 4: 12 mg on day 4 administered as 4 mg before breakfast, 4 mg after lunch, and 4 mg at bedtime. Day 5: 8 mg on day 5 administered as 4 mg before breakfast and 4 mg at bedtime. Day 6: 4 mg on day 6 administered as 4 mg before breakfast. cetirizine 10 mg tablet 10 mg PO DAILY gabapentin 400 mg capsule 400 mg PO TID naproxen 500 mg tablet 500 mg PO BIDWM amlodipine 2.5 mg Tablet 2.5 mg PO DAILY Qty: 90 0RF Protocol: Hold for SBP< HOLD for SBP < : 90 cefuroxime axetil 500 mg tablet 500 mg PO Q12H Qty: 11 0RF fluticasone propionate 50 mcg/actuation spray,suspension 2 spray intranasal DAILY PRN (Reason: Allergy Symptoms) methenamine hippurate 1 gram tablet 1 g PO DAILY 90 Days Qty: 90 1RF Referrals: Aliza Paul DO [Primary Care Provider, Internal Medicine] Clinical Impression: Catheter-associated urinary tract infection Print Language: Burundian
--- OUTSIDE RECORDS SUMMARY | 2025-08-20 20:16 | XMS_ITS | Encounter Summary ---
Author Organization [employer] Address [address] [facility] 7t [place] [address] Care Team Providers Care Senior Accounting Manager Name Role Phone Aliza Paul DO Primary Care Provider [phone] Lesley Ingram Unavailable Rosi Castro RN Unavailable [phone] Rosi Castro RN Unavailable [phone] Lesley Ingram Unavailable Rocio Ingram RN Unavailable [phone] Kathrine Blank Unavailable Encounter Details Date Type Department Care Team (Late st Contact Info) Description 05/18/2024 Telephone [facility] [address] [place], [place] [phone] Aliza Paul DO [address] [place], [place] [phone] Social History Tobacco Use Types Packs/Day Years [...] the past 12 months, has t he [employer], gas, oil or water [employer] threatened to shut off services in your [...] as of this encounter Care Teams Senior Accounting Manager Relationship Specialty Start Date End Date Aliza Paul DO [address] [place] [address] PCP - General Family Medicine 02/23/12 Lesley Ingram Community Health Worker 05/17/24 Rosi Castro RN [address] [place] [address] Staple Laster 05/17/24 03/05/25 Rosi Castro RN [address] [place] [address] Registered Nurse Family Medicine 04/06/25 04/10/25 Lesley Ingram 04/06/25 04/10/25 Rocio Ingram RN [address] [place] [address] Registered Nurse Family Medicine 04/19/25 Kathrine Blank 04/19/25 [facility] 07/27/24 05/28/25 [facility] 05/29/25 documented as of this encounter
--- OUTSIDE RECORDS SUMMARY | 2025-08-20 20:16 | XMS_ITS | Encounter Summary ---
Author Organization [employer] Address [address] [facility] 7t [place] [address] Care Team Providers Care Field Map Editor Name Role Phone Aliza Paul DO Primary Care Provider Lesley Ingram Unavailable Rosi Castro RN Unavailable [phone] Rosi Castro RN Unavailable [phone] Lesley Ingram Unavailable Rocio Ingram RN Unavailable [phone] Kathrine Blank Unavailable Reason for Visit * Reason Onset Date Comments FYI 05/15/2024 Encounter Details Date Type Department Care Team (Late st Contact Info) Description 05/15/2024 Telephone [facility] [address] [place], [place] [phone] Aliza Paul DO [address] [place], [place] [phone] FYI Social History Tobacco Use Types Packs/Day [...] be receiving home health care service with [facility] and referral was also made to [facility] for additional homemaking, personal care and [employer]IST[employer] services. Pt. Declined services. FYI for HDF 05/23/24 * Telephone Encounter - Timoteo Blank - 05/15/2024 1:04 PM EDT Tc from Kralie with [facility] calling to inform they were unable to admit pt into services, Karlie stated they managed to get in contact with pt but pt gave another excuse on why she wasn't able to accept services. If any questions you can contact Karlie at [phone]. documented in this encounter Plan of Treatment Not on file documented as of this encounter Visit Diagnoses Not on filedocumented in this encounter Additional Health Concerns Assessment Noted Time PHQ-9 Depression Total Score: 4 03/09/20 24 9:14 AM EDT documented as of this encounter Care Teams Field Map Editor Relationship Specialty Start Date End Date Aliza Paul DO [address] [place] [address] PCP - General Family Medicine 02/23/12 Lesley Ingram Community Health Worker 05/17/24 Rosi Castro, RICHARDSON [address] [place] [address] Electronic Service Technician 05/17/24 03/05/25 Rosi Castro RN [address] [place] [address] Registered Nurse Family Medicine 04/06/25 04/10/25 Lesley Ingram 04/06/25 04/10/25 Rocio Ingram RN [address] [place] [address] Registered Nurse Family Medicine 04/19/25 Kathrine Blank 04/19/25 [facility] 07/27/24 05/28/25 [facility] 05/29/25 documented as of this encounter
--- OUTSIDE RECORDS SUMMARY | 2025-08-20 20:16 | XMS_ITS | Encounter Summary ---
Author Organization [employer] Address [address] [place] [address] [address]t [place] [address] Care Team Providers Care Senior Process Control Tech Name Role Phone Aliza Paul DO Primary Care Provider Lesley Ingram Unavailable Rosi Castro RN Unavailable [phone] Rosi Castro RN Unavailable [phone] Lesley Ingram Unavailable Rocio Ingram RN Unavailable Kathrine Blank Unavailable Reason for Visit * Reason Onset Date Comments PT-1 10/19/2024 Encounter Details Date Type Department Care Team (Late st Contact Info) Description 10/19/2024 Telephone [facility] [address] [place], [place] [phone] Aliza Paul DO [address] [place], [place] [phone] PT-1 Social History Tobacco Use Types Packs/Day [...] Y/N: Yes Provider name or facility name: [facility] Facility Address: [address] [place] [address] Escort needed: Y/N: Yes Do you have a wheelchair: Y/N: Yes If yes- Manual or electric: Sathish Visits: Once a month - Patient calling requesting PT1 Home Address verified: Y/N: Yes Provider name or facility name: [facility] Facility Address: [address] [place] [address] Escort needed: Y/N: Yes Do you have [...] as of this encounter Care Teams Senior Process Control Tech Relationship Specialty Start Date End Date Aliza Paul DO [address] [place] [address] PCP - General Family Medicine 02/23/12 Lesley Ingram Community Health Worker 05/17/24 Rosi Castro, RICHARDSON [address] [place] [address] Manufacturing Manager 05/17/24 03/05/25 Rosi Castro, RICHARDSON [address] [place] [address] Registered Nurse Family Medicine 04/06/25 04/10/25 Lesley Ingram 04/06/25 04/10/25 Rocio Ingram RN [address] [place] [address] Registered Nurse Family Medicine 04/19/25 Kathrine Blank 04/19/25 [facility] 07/27/24 05/28/25 [facility] 05/29/25 documented as of this encounter
--- OUTSIDE RECORDS SUMMARY | 2025-08-20 20:16 | XMS_ITS | Encounter Summary ---
Author Organization [employer] Address [address] [place] [address] 7[address] [place] [address] Care Team Providers Care Project Control Analyst Name Role Phone Aliza Paul DO Primary Care Provider Lesley Ingram Unavailable Rosi Castro RN Unavailable [phone] Rosi Castro RN Unavailable [phone] Lesley Ingram Unavailable Rocio Ingram RN Unavailable [phone] Kathrine Blank Unavailable Reason for Visit * Reason Onset Date Comments PT-1 12/11/2024 Encounter Details Date Type Department Care Team (Late st Contact Info) Description 12/11/2024 Telephone [facility] [address] [place], [place] [phone] Aliza Paul DO [address] [place], [place] [phone] PT-1 Social History Tobacco Use Types Packs/Day [...] Y/N: Yes Provider name or facility name: [address] [place] [address], [address], [place] [address] Urology and Orthopedic [address] [facility] Escort needed: Y/N: Yes Do you have [...] documented as of this encounter Care Teams Project Control Analyst Relationship Specialty Start Date End Date Aliza Paul DO [address] [place] [address] PCP - General Family Medicine 02/23/12 Lesley Ingram Community Health Worker 05/17/24 Rosi Castro, RICHARDSON [address] [place] [address] Senior Outside Sales Representative 05/17/24 03/05/25 Rosi Castro, RICHARDSON [address] [place] [address] Registered Nurse Family Medicine 04/06/25 04/10/25 Lesley Ingram 04/06/25 04/10/25 Rocio Ingram RN [address] [place] [address] Registered Nurse Family Medicine 04/19/25 Kathrine Blank 04/19/25 [facility] 07/27/24 05/28/25 [facility] 05/29/25 documented as of this encounter
--- OUTSIDE RECORDS SUMMARY | 2025-08-20 20:16 | XMS_ITS | Encounter Summary ---
Author Organization [employer] Address [address] [facility] 7t [place] [address] Care Team Providers Care Finance Broker Name Role Phone Aliza Paul DO Primary Care Provider [phone] Lesley Ingram Unavailable Rosi Castro RN Unavailable [phone] Rosi Castro RN Unavailable [phone] Lesley Ingram Unavailable Rocio Ingram RN Unavailable [phone] Kathrine Blank Unavailable Reason for Visit * Reason Comments Med Refill Encounter Details Date Type Department Care Team (Late st Contact Info) Description 07/01/2024 Refill [facility] [address] [place], [place] [phone] Aliza Paul DO [address] [place], [place] [phone] Other chronic pain Social History Tobacco Use [...] the past 12 months, has t he [employer], gas, oil or water company threatened to [...] documented as of this encounter Care Teams Finance Broker Relationship Specialty Start Date End Date Aliza Paul DO [address] [place] [address] PCP - General Family Medicine 02/23/12 Lesley Ingram Community Health Worker 05/17/24 Rosi Castro RN [address] [place] [address] House Worker 05/17/24 03/05/25 Rosi Castro RN [address] [place] [address] Registered Nurse Family Medicine 04/06/25 04/10/25 Lesley Ingram 04/06/25 04/10/25 Rocio Ingram RN [address] [place] [address] [place] [address] Registered Nurse Family Medicine 04/19/25 Kathrine Blank 04/19/25 [facility] 07/27/24 05/28/25 [facility] 05/29/25 documented as of this encounter
--- OUTSIDE RECORDS SUMMARY | 2025-08-20 20:16 | XMS_ITS | Encounter Summary ---
Author Organization [employer] Address [address] [facility] 7t [place] [address] Care Team Providers Care Paginator Name Role Phone Aliza Paul DO Primary Care Provider [phone] Lesley Ingram Unavailable Rosi Castro RN Unavailable [phone] Rosi Castro RN Unavailable [phone] Lesley Ingram Unavailable Rocio Ingram RN Unavailable [phone] Kathrine Blank Unavailable Reason for Visit * Reason Comments Med Refill Encounter Details Date Type Department Care Team (Late st Contact Info) Description 10/19/2024 Refill [facility] MEDICINE [address] [place], [place] [phone] Aliza Paul DO [address] [place], [place] [phone] Other chronic pain Social History Tobacco Use [...] documented as of this encounter Care Teams Paginator Relationship Specialty Start Date End Date Aliza Paul DO [address] [place] [address] PCP - General Family Medicine 02/23/12 Lesley Ingram Community Health Worker 05/17/24 Rosi Castro RN [address] [place] [address] Manufacturing Quality Manager 05/17/24 03/05/25 Rosi Castro RN [address] [place] [address] Registered Nurse Family Medicine 04/06/25 04/10/25 Lesley Ingram 04/06/25 04/10/25 Rocio Ingram, RICHARDSON [address] [place] [address] [place] [address] Registered Nurse Family Medicine 04/19/25 Kathrine Blank 04/19/25 [facility] 07/27/24 05/28/25 [facility] 05/29/25 documented as of this encounter
--- OUTSIDE RECORDS SUMMARY | 2025-08-20 20:16 | XMS_ITS | Encounter Summary ---
Author Organization [employer] Address [address] [facility] 7t [place] [address] Care Team Providers Care Truck Hop Name Role Phone Aliza Paul DO Primary Care Provider Lesley Ingram Unavailable Rosi Castro RN Unavailable [phone] Rosi Castro RN Unavailable [phone] Lesley Ingram Unavailable Rocio Ingram RN Unavailable [phone] Kathrine Blank Unavailable Reason for Visit * Reason Onset Date Comments fyi 01/17/2025 Encounter Details Date Type Department Care Team (Late st Contact Info) Description 01/17/2025 Telephone [facility] MEDICINE [address] [place], [place] [phone] Aliza Paul DO [address] [place], [place] [phone] fyi Social History Tobacco Use Types Packs/Day [...] - 01/17/2025 9:12 AM EDT Tc from Martina with [employer] Informing they will be sending authorization for [employer] services as pt currently has no in-home services and needs form send back urgently. If any questions please contact Martina [phone] documented in this encounter Plan of Treatment Not on file documented as of this encounter Visit Diagnoses Not on filedocumented in this encounter Additional Health Concerns Assessment Noted Time PHQ-9 Depression Total Score: 15 024 9:20 AM EDT documented as of this encounter Care Teams Truck Hop Relationship Specialty Start Date End Date Aliza Paul DO [address] [place] [address] PCP - General Family Medicine 02/23/12 Lesley Ingram Community Health Worker 05/17/24 Rosi Castro, RICHARDSON [address] [place] [address] Technology Sales Representative 05/17/24 03/05/25 Rosi Castro RN [address] [place] [address] Registered Nurse Family Medicine 04/06/25 04/10/25 Lesley Ingram 04/06/25 04/10/25 Rocio Ingram RN [address] [place] [address] Registered Nurse Family Medicine 04/19/25 Kathrine Blank 04/19/25 [facility] 07/27/24 05/28/25 [facility] 05/29/25 documented as of this encounter
--- OUTSIDE RECORDS SUMMARY | 2025-08-20 20:16 | XMS_ITS | Encounter Summary ---
Author Organization [employer] Address [address] [facility] 7t [place] [address] Care Team Providers Care Security Inspector Name Role Phone Aliza Paul DO Primary Care Provider [phone] Lesley Ingram Unavailable Rosi Castro RN Unavailable [phone] Rosi Castro RN Unavailable [phone] Lesley Ingram Unavailable Rocio Ingram RN Unavailable [phone] Kathrine Blank Unavailable Reason for Visit * Reason Comments Med Refill Encounter Details Date Type Department Care Team (Late st Contact Info) Description 10/29/2023 Refill [facility] MEDICINE [address] [place], [place] [phone] Aliza Paul DO [address] [place], [place] [phone] Social History Tobacco Use Types Packs/Day Years [...] filedocumented in this encounter Care Teams Security Inspector Relationship Specialty Start Date End Date Aliza Paul DO [address] [place] [address] PCP - General Family Medicine 02/23/12 Lesley Ingram Community Health Worker 05/17/24 Rosi Castro RN [address] [place] [address] Stamp Clerk 05/17/24 03/05/25 Rosi Castro RN [address] [place] [address] Registered Nurse Family Medicine 04/06/25 04/10/25 Lesley Ingram 04/06/25 04/10/25 Rocio Ingram RN [address] [place] [address] Registered Nurse Family Medicine 04/19/25 Kathrine Blank 04/19/25 [facility] 07/27/24 05/28/25 [facility] 05/29/25 documented as of this encounter
--- OUTSIDE RECORDS SUMMARY | 2025-08-20 20:16 | XMS_ITS | Encounter Summary ---
Author Organization [employer] Address [address] [place] [address] 7t [place] [address] Care Team Providers Care Brim Flexer Name Role Phone Aliza Paul DO Primary Care Provider [phone] Lesley Ingram Unavailable Rosi Castro RN Unavailable [phone] Rosi Castro RN Unavailable Lesley Ingram Unavailable Roico Ingram RN Unavailable [phone] Kathrine Blank Unavailable Encounter Details Date Type Department Care Team (Late st Contact Info) Description 11/04/2022 Telephone [facility] MEDICINE [address] [place], [place] [phone] Aliza Paul DO [address] [place], [place] [phone] Social History Tobacco Use Types Packs/Day Years [...] on filedocumented in this encounter Care Teams Brim Flexer Relationship Specialty Start Date End Date Aliza Paul DO [address] [place] [address] PCP - General Family Medicine 02/23/12 Lesley Ingram Community Health Worker 05/17/24 Rosi Castro, RICHARDSON [address] [place] [address] Soil Technician 05/17/24 03/05/25 Rosi Castro, RICHARDSON [address] [place] [address] Registered Nurse Family Medicine 04/06/25 04/10/25 Lesley Ingram 04/06/25 04/10/25 Rocio Ingram RN [address] [place] [address] Registered Nurse Family Medicine 04/19/25 Kathrine Blank 04/19/25 [facility] 07/27/24 05/28/25 [facility] 05/29/25 documented as of this encounter
--- OUTSIDE RECORDS SUMMARY | 2025-08-20 20:16 | XMS_ITS | Encounter Summary ---
Author Organization [employer] Address [address] [place] [address] 7t [place] [address] Care Team Providers Care Protocol Manager Name Role Phone Aliza Paul DO Primary Care Provider [phone] Lesley Ingram Unavailable Rosi Castro RN Unavailable [phone] Rosi Castro RN Unavailable [phone] Lesley Ingram Unavailable Rocio Ingram RN Unavailable [phone] Kathrine Blank Unavailable Encounter Details Date Type Department Care Team (Late st Contact Info) Description 11/04/2022 Orders Only [facility] [address] [place], [place] [phone] Aliza Paul DO [address] [place], [place] [phone] Social History Tobacco Use Types Packs/Day Years [...] on filedocumented in this encounter Care Teams Protocol Manager Relationship Specialty Start Date End Date Aliza Paul DO [address] [place] [address] PCP - General Family Medicine 02/23/12 Lesley Ingram Community Health Worker 05/17/24 Rosi Castro, RICHARDSON [address] [place] [address] Ash Collector 05/17/24 03/05/25 Rosi Castro RN [address] [place] [address] Registered Nurse Family Medicine 04/06/25 04/10/25 Lesley Ingram 04/06/25 04/10/25 Rocio Ingram RN [address] [place] [address] Registered Nurse Family Medicine 04/19/25 Kathrine Blank 04/19/25 [facility] 07/27/24 05/28/25 [facility] 05/29/25 documented as of this encounter
--- OUTSIDE RECORDS SUMMARY | 2025-08-20 20:16 | XMS_ITS | Encounter Summary ---
Author Organization [employer] Address [address] [facility] 7t [place] [address] Care Team Providers Care Cake Tester Name Role Phone Aliza Paul DO Primary Care Provider [phone] Lesley Ingram Unavailable Rosi Castro RN Unavailable [phone] Rosi Castro RN Unavailable [phone] Lesley Ingram Unavailable Rocio Ingram RN Unavailable [phone] Kathrine Blank Unavailable Reason for Visit * Reason Onset Date Comments Nurse Triage 09/13/2024 Encounter Details Date Type Department Care Team (Late st Contact Info) Description 09/13/2024 Telephone [facility] MEDICINE [address] [place], [place] [phone] Aliza Paul DO [address] [place], [place] [phone] Nurse Triage Social History Tobacco Use Types [...] t he electric, gas, oil or water [employer] threatened to shut off services in your [...] now. Pt is offered to come to [facility] which is open till 8pm today but, doesn't have transportation. Pt reports will come tomorrow to [facility] open 830am -400pm. Pt requests an uber ride for tomorrow. Uber is scheduled for 1155am berry picker machine operator at Pt address for tomorrow. Pt is [...] documented as of this encounter Care Teams Cake Tester Relationship Specialty Start Date End Date Aliza Paul DO [address] [place] [address] PCP - General Family Medicine 02/23/12 Lesley Ingram Community Health Worker 05/17/24 Rosi Castro RN [address] [place] [address] Yarrow Gatherer 05/17/24 03/05/25 Rosi Castro RN [address] [place] [address] Registered Nurse Family Medicine 04/06/25 04/10/25 Lesley Ingram 04/06/25 04/10/25 Rocio Ingram RN [address] [place] [address] Registered Nurse Family Medicine 04/19/25 Kathrine Blank 04/19/[address] [facility] 07/27/24 05/28/25 [facility] 05/29/25 documented as of this encounter
--- OUTSIDE RECORDS SUMMARY | 2025-08-20 20:16 | XMS_ITS | Encounter Summary ---
Author Organization [employer] Address [address] [facility] 7t [place] [address] Care Team Providers Care Truck Shop Mechanic Name Role Phone Aliza Paul DO Primary Care Provider [phone] Lesley Ingram Unavailable Rosi Castro RN Unavailable [phone] Rosi Castro RN Unavailable [phone] Lesley Ingram Unavailable Rocio Ingram RN Unavailable [phone] Kathrine Blank Unavailable Reason for Visit * Reason Comments Med Refill Encounter Details Date Type Department Care Team (Late st Contact Info) Description 06/06/2024 Refill [facility] MEDICINE 230 [place], [place] [phone] Aliza Paul DO [address] [place], [place] [phone] Chronic nonintractable headache, unspecified headache type Social [...] as of this encounter Care Teams Truck Shop Mechanic Relationship Specialty Start Date End Date Aliza Paul DO [address] [place] [address] PCP - General Family Medicine 02/23/12 Lesley Ingram Community Health Worker 05/17/24 Rosi Castro RN [address] [place] [address] Pier Master 05/17/24 03/05/25 Rosi Castro RN [address] [place] [address] Registered Nurse Family Medicine 04/06/25 04/10/25 Lesley Ingram 04/06/25 04/10/25 Rocio Ingram RN [address] [place] [address] Registered Nurse Family Medicine 04/19/25 Kathrine Blank 04/19/25 [facility] 07/27/24 05/28/25 [facility] 05/29/25 documented as of this encounter
--- OUTSIDE RECORDS SUMMARY | 2025-08-20 20:16 | XMS_ITS | Clinical Summary ---
Author Organization [employer] Address [address] [place] [address] [address] [place] [address] Care Team Providers Care Pattern Attendant Name Role Phone BeverlyAliza Primary Care Provider [phone] Lesley Ingram Unavailable Rocio Ingram RN Unavailable [phone] Kathrine Blank Unavailable Allergies No known active allergies Medications * This document contains information received from the source organization and may not represent a complete record from that organization. Proventil HFA 108 (90 Base) MCG/ACT inhaler INHALE TWO PUFFS BY MOUTH EVERY 4 TO 6 HOURS NEEDED 6.7 g 03/04/20 23 Active Blood Pressure Monitoring (Blood Pressure Cuff) misc Use daily as prescribed 1 each 09/07/20 24 Active Ascorbic Acid (vitamin C) 1000 MG tablet Take 1 tablet by mouth Once per day. 11/16/19 25 Active ipratropium-albu terol (Duo-Neb) 0.5-2.5 mg/3 mL nebulizer solution INHALE THE CONTENTS OF 1 VIAL EVERY 4 HOURS WHILE AWAKE NEEDED FOR SHORTNESS OF BREATH/WHEEZI NG 11/25/19 25 Active busPIRone (Buspar) 10 MG tablet TAKE ONE TABLET TWICE DAILY 60 tablet 3 02/20/20 25 Active Lidoderm 5 % patchIndications :Closed supracondylar fracture of right humerus with routine healing APPLY 2 PATCHES TO SKIN. LEAVE ON FOR 12 HOURS, THEN OFF FOR 12 HOURS DIRECTED FOR PAIN. 60 patch 3 03/09/20 25 Active Diclofenac Sodium 1 % gel APPLY 2 GRAM'S TO AFFECTED AREA(s) TWICE DAILY NEEDED 100 g 3 03/16/20 25 Active cetirizine (ZyrTEC) 10 MG tablet Take 1 tablet (10 mg) by mouth Once per day. 90 tablet 3 03/30/20 25 Active venlafaxine XR (Effexor XR) 75 MG 24 hr capsule Take 1 capsule (75 mg) by mouth Once per day. 30 capsule 03/30/20 25 Active lisinopril (Prinivil) 10 MG tablet Take 1 tablet (10 mg) by mouth Once per day. 90 tablet 03/30/20 25 2025 Active gabapentin (Neurontin) 400 MG capsuleIndicatio ns:Polyarthralgi a TAKE ONE CAPSULE BY MOUTH THREE TIMES DAILY 90 capsule 1 07/03/20 25 Active cholecalciferol VITAMIN D (Vitamin D-3) 50 MCG (1999) capsule TAKE ONE CAPSULE DAILY 90 capsule 07/12/20 25 Active ARIPiprazole (Abilify) 2 MG tablet TAKE ONE TABLET BY MOUTH ONCE DAILY 30 tablet 1 07/17/20 25 Active acetaminophen (Tylenol 8 Hour) 650 MG ER tabletIndication s:Closed supracondylar fracture of right humerus with routine healing TAKE ONE TABLET EVERY TWELVE HOURS NEEDED FOR PAIN 60 tablet 3 07/31/20 25 Active baclofen (Lioresal) 10 MG tabletIndication s:Muscle spasm TAKE ONE TABLET THREE TIMES DAILY IN THE MORNING, AT NOON, AND AT BEDTIME NEEDED 60 tablet 3 08/03/20 25 Active naproxen (Naprosyn) 500 MG tabletIndication s:Closed supracondylar fracture of right humerus with routine healing TAKE ONE TABLET TWICE DAILY IN THE MORNING AND AT BEDTIME WITH FOOD NEEDED FOR PAIN 30 tablet 1 08/06/20 25 Active amLODIPine (Norvasc) 2.5 MG tablet Take 1 tablet by mouth Once per day. 07/13/20 25 Active clonazePAM (KlonoPIN) 0.5 MG tablet Take 1 tablet by mouth if needed each day for anxiety. 07/20/20 25 Active fluticasone (Flonase) 50 MCG/ACT nasal spray Administer 2 sprays into affected nostril(s) if needed each day for allergies. 11/18/19 22 Active hydrOXYzine pamoate (Vistaril) 50 MG capsule Take 1 capsule by mouth if needed in the morning, at noon, and at bedtime for anxiety. 07/20/20 Active methenamine hippurate (Hiprex) 1 g tablet Take 1 tablet by mouth Once per day. 12/14/19 25 Active atorvastatin (Lipitor) 20 MG tablet Take 20 mg by mouth at bedtime. 07/01/20 22 2024 Discontinued(M ed list cleanup (will not trigger notification to Pharmacy)) Fiber-Lax 625 MG tablet TAKE ONE TABLET TWICE DAILY 07/15/20 22 2024 Discontinued(M ed list cleanup (will not trigger notification to Pharmacy)) famotidine (Pepcid) 40 MG tablet TAKE ONE TABLET AT BEDTIME 07/15/20 22 2024 Discontinued(M ed list cleanup (will not trigger notification to Pharmacy)) Probiotic, Lactobacillus, capsule As directed 2024 Discontinued(M ed list cleanup (will not trigger notification to Pharmacy)) HYDROmorphone (Dilaudid) 4 MG tabletIndication s:Neck pain Take 1 tablet (4 mg) by mouth if needed in the morning and at bedtime for severe pain. 28 tablet 05/23/20 24 2024 Discontinued(M ed list cleanup (will not trigger notification to Pharmacy)) nystatin (Mycostatin) cream Apply 1 Application. topically Once per day. 07/24/20 24 2024 Discontinued(M ed list cleanup (will not trigger notification to Pharmacy)) methIMAzole (Tapazole) 10 MG tablet Take 1 tablet by mouth Once per day. 2024 Discontinued(M ed list cleanup (will not trigger notification to Pharmacy)) propranolol (Inderal) 10 MG tablet Take 1 tablet by mouth 3 times daily. 2024 Discontinued(M ed list cleanup (will not trigger notification to Pharmacy)) hydrocortisone (Anusol-HC) 2.5 % rectal creamIndications :Hemorrhoids, unspecified hemorrhoid type Insert into the rectum 2 times daily. 28 g 02/03/20 25 2024 Discontinued(M ed list cleanup (will not trigger notification to Pharmacy)) azithromycin (Zithromax) 250 MG tabletIndication s:Acute maxillary sinusitis, recurrence not specified Take 2 tabs PO daily x 1d then 1 tab PO daily on D2 to D5 6 tablet 02/03/20 25 2024 Discontinued(M ed list cleanup (will not trigger notification to Pharmacy)) carboxymethylcel lulose (Refresh Tears) 0.5 % ophthalmic solution Administer 1 drop into both eyes if needed in the morning and at bedtime for dry eyes. 10 mL 11 02/09/20 25 2024 Discontinued(M ed list cleanup (will not trigger notification to Pharmacy)) acetaminophen (Tylenol 8 Hour) 650 MG ER tabletIndication s:Closed supracondylar fracture of right humerus with routine healing TAKE ONE TABLET EVERY TWELVE HOURS NEEDED FOR PAIN 60 tablet 3 02/20/20 25 2024 Discontinued baclofen (Lioresal) 10 MG tabletIndication s:Muscle spasm TAKE ONE TABLET THREE TIMES DAILY IN THE MORNING, AT NOON, AND AT BEDTIME NEEDED FOR MUSCLE SPASMS 60 tablet 3 03/30/20 25 2024 Discontinued Artificial Tears ophthalmic solution Administer 1 drop into the left eye every 2 (two) hours if needed (dry eye). 15 mL 2 04/20/20 25 2024 Discontinued(M ed list cleanup (will not trigger notification to Pharmacy)) clotrimazole (Lotrimin) 1 % cream APPLY TOPICALLY TO AFFECTED AREA(s) TWICE DAILY FOR 28 DAYS 30 g 05/07/20 25 2024 Discontinued(M ed list cleanup (will not trigger notification to Pharmacy)) polyvinyl alcohol (Liquifilm Tears) 1.4 % ophthalmic solutionIndicati ons:Corneal ulcer of left eye Administer 1 drop into the left eye if needed for dry eyes (As needed up to 5x/day. Can keep in the fridge for improved comfort on instillation. ). 15 mL 1 05/21/20 25 2024 Discontinued(M ed list cleanup (will not trigger notification to Pharmacy)) hydrOXYzine HCl (Atarax) 50 MG tabletIndication s:Anxiety disorder, unspecified type TAKE ONE TABLET EVERY 6 HOURS NEEDED FOR ANXIETY 60 tablet 3 06/29/20 25 2024 Discontinued(M ed list cleanup (will not trigger notification to Pharmacy)) naproxen (Naprosyn) 500 MG tabletIndication s:Closed supracondylar fracture of right humerus with routine healing TAKE ONE TABLET TWICE DAILY IN THE MORNING AND AT BEDTIME WITH FOOD NEEDED FOR PAIN 30 tablet 1 07/03/20 25 2024 Discontinued Active Problems Problem Noted Date Diagnosed Date 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 Assessment & Plan (06/21/2025 3:55 PM EDT): Referral to eye care, supportive measures reviewed Hemorrhoids 02/02/2025 Anxiety with depression 02/02/2025 Assessment & Plan (02/02/2025 4:23 PM EDT): Continue to follow-up with her therapist I will refer her to [facility] psych provider Polyarthralgia 02/02/2025 Assessment & Plan (02/02/2025 4:22 PM EDT): I will follow-up on her gabapentin to 400 mg 3 times a day, I advised to follow- up with PCP Thyrotoxicosis with thyrotoxic crisis 09/07/2024 Assessment & Plan (09/07/2024 10:07 PM EDT): On propranolol + Methimazole, fu by [facility] endocr[facility]. We'll get OV notes sp hospital [...] MH services received in the past with [facility], [facility] needed, and Patient to reach out to [facility] as needed Pt prefers to be self-referred for OP individual therapy and psychiatry to the [facility] programs. Pt was offered external referral; clinician informed about wait times and options to receive MH services through [facility] intake. Assessment & Plan (03/09/2024 3:06 [...] MH services received in the past with [facility], [facility] not satisfied with [facility] [...] OP individual therapy and psychiatry to the [facility] programs. Pt was offered external referral; clinician informed about wait times and options to receive MH services through [facility] intake. Assessment & Plan (10/26/2023 10:38 [...] for Cheryl at [facility] to support process of reconnecting with psych [...] stroke in 05/2024). Pt was self-referred to [facility] programs, but reports no appointment has been made. Currently under /[facility] care to assist with SDOH needs. [...] MH services received in the past with [facility], currently she's not satisfied with [facility]. Pt opted for same-day appointments with [facility] (information given. Cheryl screened positive for [...] intervention , [facility], and Patient to reach out to [facility] as needed Pt prefers to be self-referred for OP individual therapy and psychiatry to the [facility] programs. Pt was offered external referral; clinician informed about wait times and options to receive MH services through [facility] intake. Resolved Problems Problem Noted Date Diagnosed Date Resolved Date Acute maxillary sinusitis 02/02/2025 Assessment & Plan (02/02/2025 4:22 PM EDT): Patient reports in the past she has been taking Z-Shlomo for her sinusitis and it works really good for her, I decided today to prescribe her Z-Shlomo and report back if symptoms are persisting or worse Bradycardia 10/29/2022 11/27/2022 Assessment & Plan (10/29/2022 2:58 PM EST): EKG w HR 50s, Sec to bblocker? Hold metoprolol tomorrow and lower to 50mg. FU w PCP Reconsult prn, palpitations, AGUILLON Closed supracondylar fractur e of right humerus with routine healing 10/29/2022 10/22/2023 Assessment & Plan (11/19/2022 10:16 AM EST): Wants to fu with [facility] Dr Jj instead of [facility], referral sent. [...] PCP in Cerebrovascular disease 04/09/201611/09 Severe obesity (CMS/HCC) 04/09/2016 Steatosis of liver 04/09/2016 3 Encounters Date Type Department Care Team Description 08/20/2025 Orders Only GENERIC EXTERNAL DATA DEPARTMENT Provider, Generic External Data 08/20/2025 Patient Outreach [facility] [address] [place] [phone] Aliza Paul DO 08/17/2025 Telephone [facility] [address] [place] [address] Aliza Paul DO chartprep 08/13/2025 Patient Outreach [facility] [address] [facility] [place] [address] Aliza Paul DO Pre-visit Planning (Pre-visit planning - LVM ) 08/07/2025 Telephone [facility] [address] [facility] [place] [address] Aliza Paul DO Chart Prep 08/05/2025 Refill [facility] [address] [facility] [place] [address] Aliza Paul DO Closed supracondylar fracture of right humerus with routine healing 08/03/2025 Refill [facility] [address] [place] [address] Aliza Paul DO Muscle spasm 07/30/2025 Refill [facility] [address] [place] [address] Aliza Paul DO Closed supracondylar fracture of right humerus with routine healing 07/30/2025 Patient Outreach [facility] [address] [place] [address] Aliza Paul DO Care Management (C3CM- initial assessment/enrollment. Not available.) 07/20/[address] [address] Aliza Paul DO Appointment Request 07/17/[address] [address] Aliza Paul DO PT1-Modified 07/16/2025 Patient Outreach [address] [address] Aliza Paul DO Transition Of Care (Tcm) (HDF- Scheduled ) 07/16/2025 Patient Outreach [facility] [address] [place] [address] Aliza Paul DO 07/14/2025 Refill [facility] [address] [place] [phone] Aliza Paul DO 07/12/2025 Patient Outreach [facility] [address] [place] [address] Aliza Paul, 07/10/2025 Patient Outreach [facility] [address] [place] [address] Alzia Paul DO Care Coordination (CM/CHW outreach) 07/07/2025 Refill [facility] [address] [place] [address] Aliza Paul, 07/03/2025 Refill [facility] [address] [place] [address] Aliza Paul DO Polyarthralgia; Closed supracondylar fracture of right humerus with routine healing 06/29/2025 Refill [facility] [address] [place] [address] Aliza Paul DO Anxiety disorder, unspecified type 06/21/2025 Telephone [facility] [address] [place] [address] Aliza Paul DO ER Follow-up 06/19/2025 Patient Outreach [facility] [address] [place] [place] [phone] Aliza Paul DO 06/18/2025 Orders Only GENERIC EXTERNAL DATA DEPARTMENT Provider, Generic External Data 06/13/2025 Patient Outreach [facility] [address] [place] [phone] Aliza Paul DO Care Coordination (CM/CHW outreach) 06/12/2025 Telephone [facility] [address] [place] [address] TarKrystyna holguin, OD 06/08/2025 Telephone [facility] [address] [place] [place] [phone] Aliza Paul DO Verbal Order 06/07/2025 Telephone [facility] [address] [place] [address] Aliza Paul DO 06/06/2025 Telephone [facility] [address] [place] [address] Aliza Paul DO PT1 06/06/[address] [address] Aliza Paul DO verbal orders needed 06/05/[address] [address] Aliza Paul DO Chart Prep 05/31/2025 Patient Outreach [address] [address] Aliza Paul DO 05/30/2025 Orders Only GENERIC EXTERNAL DATA DEPARTMENT Provider, Generic External Data 05/28/2025 3:30 PM EDT Office Visit [facility] [address] [place] [phone] Krystyna Hicks, OD Corneal ulcer of left eye (Primary Dx); 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] PCV) 12/16/2022 12/16/2021 Depression Monitoring 02/20/2025 08/22/2024, 024 SDOH Screening 05/17/2025 05/17/2024 COVID-19 Vaccine [...] Diagnosis Comments CBC WITH AUTO DIFFERENTIAL Routine 08/20/2025 7:42 PM EDT BASIC METABOLIC PANEL Routine 08/20/2025 7:42 PM EDT URINALYSIS, COMPLETE, WITH REFLEX TO CULTURE Routine 06/18/2025 4:48 PM EDT CULTURE, URINE, ROUTINE Routine 06/18/2025 12:00 AM EDT URINALYSIS, COMPLETE, WITH REFLEX TO CULTURE Routine 05/30/2025 7:22 PM EDT CULTURE, URINE, ROUTINE Routine 05/30/2025 12:00 AM EDT LIPID PANEL, STANDARD Routine 04/20/2025 12:48 PM EDT Essential hypertension ZZZ HISTORICAL HEPATITIS C AB W/REFL TO HCV RNA, QN, PCR Routine 01/28/2022 10:33 AM EDT HIV 1/2 ANTIGEN/ANTIBODY, FOURTH GENERATION W/RFL Routine 01/28/2022 10:33 AM EDT [place] HISTORICAL HPV E6/E7 RFLX ROMA 16 18/45 Routine 12/10/2017 12:51 PM EST PANORAMIC RADIOGRAPHIC IMAGE Routine 12/01/2010 12:00 AM EST from Last 3 Months or Most Recently Relevant to Health Maintenance Results * (ABNORMAL) CBC auto differential (08/20/2025 7:42 PM EDT) White Blood Count 7.8 4.8 - 10.8 X10*3/uL [facility] Red Blood Count 5.06 4.20 - 5.50 X10*6/uL [facility] Hemoglobin 14.0 12.0 - 16.0 g/dl [facility] Hematocrit 42.0 37.0 - 47.0 % [facility] Mean Corpuscular Volume 83.0 80.0 - 98.0 fL [facility] Mean Corpuscular Hemoglobin 27.7 27.0 - 33.0 pg [facility] Mean Corpuscular HGB Conc 33.3 31.0 - 35.0 g/dl [facility] Red Cell Distribution Width 11.8 11.0 - 16.0 % [facility] Platelet Count 291 160 - 400 X10*3/uL [facility] Mean Platelet Volume 9.9 9.4 - 12.3 fL [facility] Neutrophils Percent Auto 45.2 45 - 73 % [facility] Imm Gran Pct Auto 0.1 0.0 - 0.4 % [facility] Lymphocytes Percent Auto 42.1(H) 20 - 40 % [facility] Monocytes Percent Auto 8.2 2 - 11 % [facility] Eosinophils Percent Auto 3.8 0 - 4 % [facility] Basophils Percent Auto 0.6 0 - 2 % [facility] NRBC Pct Auto 0.0 0.0 - 0.2 /100WBC [facility] Neutrophils Absolute Auto 3.5 2.0 - 8.3 x10*3/uL [facility] Imm Gran Abs Auto 0.01 0.00 - 0.03 X10*3/uL [facility] Lymphocytes Absolute Auto 3.3 1.2 - 4.9 X10*3/uL [facility] Monocytes Absolute Auto 0.6 0.1 - 1.2 X10*3/uL [facility] Eosinophils Absolute Auto 0.3 0.0 - 0.4 X10*3/uL [facility] Basophils Absolute Auto 0.1 0.0 - 0.2 X10*3/uL [facility] NRBC Abs Auto 0.000 0.0 - 0.012 X10*3/uL [facility] 08/20/2025 7:42 PM EDT 08/20/2025 7:44 PM EDT us Generic External Data Provider LAB BLOOD ORDERAB LES Final Result [facility] [address] [place] [phone] * (ABNORMAL) Basic Metabolic Panel (08/20/2025 7:42 PM EDT) Sodium 144 135 - 145 mmol/L [facility] Potassium 3.7 3.3 - 5.1 mmol/L [facility] Chloride 114(H) 96 - 108 mmol/L [facility] Carbon Dioxide 23 22 - 29 mmol/L [facility] Anion Gap 11(L) 12 - 20 [facility] Urea Nitrogen (BUN) 20(H) 9 - 16 mg/dL [facility] Creatinine, Serum 0.71 0.5 - 1.4 mg/dL [facility] Creatinine Clr Calc Pharmacy 90.7 [facility] Comment:Provided height and weight: 160.02 cm,89.8 kg.eGFR (calculated from the MDRD study equation) and eCrCl(calculated from the Cockcroft-Gault equation) are based ondifferent parameters and may not yield comparable results.If eCrCl result is absurd, please check patient'sheight/weight. Estimated Glomerular Filt Rate >60 [facility] Comment:Chronic Kidney Disea se: Estimated GFR < 60 mL/min/1.10e4Vfslja Kidney Disease: Estimated GFR < 15 mL/min/1.73m2 Glucose 102 60 - 115 mg/dL [facility] Calcium 8.5 8.4 - 10.2 mg/dL [facility] 08/20/2025 7:42 PM EDT 08/20/2025 7:44 PM EDT us Generic External Data Provider LAB BLOOD ORDERAB LES Final Result [facility] [address] [place] [phone] [phone] * (ABNORMAL) Urinalysis, Complete, with Reflex to Culture (06/18/2025 4:48 PM EDT) Only the most recent of2 resultswithin the time period is included. Color Urine Yellow [facility] Appearance Urine Cloudy [facility] PH 6.0 5.0 - 9.0 [facility] Glucose Urine UA Negative Negative mg/dL [facility] Urine Blood Large (3+)(A) Negative [facility] Specific [place] - Urine 1.020 1.005 - 1.025 [facility] Urine Protein 100 (2+)(A) Neg-Trace mg/dL [facility] Urine Ketones Negative Negative mg/dL [facility] Nitrite Urine Negative Negative [facility] Leukocyte Esterase Urine Moderate (2+)(A) Negative [facility] RBC Urine >20(A) 0 - 2 /HPF [facility] Urine WBC >50(A) 0 - 5 /HPF [facility] Urine Squamous Epithelial Cell 0-2 0 - 2 /HPF [facility] CALCIUM OXALATE CRYSTAL, UR Present [facility] Urine Bacteria 3+ None Seen [facility] Hyaline Casts, Urine 0-2 0 - 2 /LPF [facility] 06/18/2025 4:48 PM EDT 06/18/2025 4:52 PM EDT Narrative [facility] - 06/18/2025 5:08 PM EDT [id number], Quinonez Port Generic External Data Provider LAB URINE ORDERAB LES Final Result Performing Organization Address [facility] Co de Phone Number [facility] [address] [place] [phone] * Culture, Urine, Routine (06/18/2025 12:00 AM EDT) Only the most recent of2 resultswithin the time period is included. Urine Urine specimen from urinary conduit / Unknown 06/18/2025 06/18/2025 Comment:Urine Cath Narrative [facility] - 06/20/2025 10:11 AM EDT Urine Culture Report Result Urine Culture > 100,000 cfu/ml Urine Culture Mixed bacterial nhan characteristic of Urine Culture urogenital contamination. Specimen Source: Urine Catheterized Generic External Data Provider LAB MICROBIOLOGY - GENERAL ORDERABLES Final Result Performing Organization Address [facility] Co de Phone Number [facility] [address] [place] [phone] * (ABNORMAL) Lipid Panel, Standard (04/20/2025 12:48 PM EDT) Triglycerides 72 <150 mg/dL [facility] Comment:Desirable Triglyceri de: less than 150 mg/dLBorderline High Triglyceride 150-199 mg/dLHigh Triglyceride: 200-499 mg/dLVery High Triglyceride: greater than or equal to 5OO mg/dL Cholesterol 164 <200 mg/dL [facility] Comment:Desirable Cholestero l: less than 200 mg/dLBorderline High Cholesterol: 200-239 mg/dLHigh Cholesterol: greater than 239 mg/dL LDL Cholesterol Calculated 105(H) <100 mg/dL [facility] Comment:Desirable LDL: less than 100 mg/dLNear Optimal/Above Optimal LDL: 110- 129 mg/dLBorderline High LDL: 130-159 mg/dLHigh LDL: 160-189 mg/dLVery High LDL: greater than or equal to 190 mg/dL HDL Cholesterol 45 >40 mg/dL [facility] Comment:Desirable HDL: great er than 40 mg/dL Note: This HDL assay may give artificially low results in patients with liver disease. Blood Venous blood specimen / Unknown 04/20/2025 12:48 PM EDT 04/20/2025 4:07 PM EDT Aliza Paul DO LAB BLOOD ORDERABLES Final R esult [facility] [address] [place] [phone] * HEPATITIS C AB W/REFL TO HCV RNA, QN, PCR (01/28/2022 10:33 AM EDT) HEPATITIS C ANTIBODY NON-REACT ERNESTO NON-REACT ERNESTO [facility] INDEX 0.01 <1.00 [facility] Comment: HCV antibody was non-reactive. There is no laboratory evidence of HCV infection. In most cases, no further action is required. However, if recent HCV exposure is suspected, a test for HCV RNA (test code 74353) is suggested. For additional information please refer to http://education.What the Trend/faq/XUN96g5 (This link is being provided for informational/ educational purposes only.) 01/28/2022 10:3 3 AM EDT Aliza Paul DO HISTORICAL/NON ORDERABLE LAB S Final Result [facility] [address] * HIV 1/2 ANTIGEN/ANTIBODY,FOURTH GENERATION W/RFL (01/28/2022 10:33 AM EDT) HIV-1/2 ANTIGEN AND ANTIBODIES, 4TH GENERATION W/ REFLEX NON-REACT ERNESTO NON-REACT ERNESTO [facility] Comment: HIV-1 antigen and HIV-1/HIV-2 [...] purpose. For additional information please refer to http://Just Soles.What the Trend/faq/IIM833 (This link is being provided for informational/ educational purposes only.) The performance of this assay has not been clinically validated in patients less than 2 years old. 01/28/2022 10:3 3 AM EDT us Aliza Paul DO LAB BLOOD ORDERABLES Final R esult [facility] [address] * HPV E6/E7 RFLX ROMA 16 18/45 (12/10/2017 12:51 PM EST) ADDITIONAL TESTING Not indicated () [facility] Comment: Test Performed by [employer], [employer] [facility], [address] [place] [address] Ulises Silva M.D., Ph.D., Director of Laboratories , [place] [id number] HPV 16 RNA Test not performed [facility] HPV 18/45 RNA Test not performed [facility] HPV mRNA E6/E7 Not Detected NOT DETECTED [facility] Comment: This test was performed using the APTIMA(R) HPV Assay ([employer] This assay detects E6/E7 viral messenger RNA (mRNA) from 14 high-risk HPV types (16,18,31,33,35,39,45,51, 52,56,58,59,66,68). For additional information please refer to: http://Just Soles.CloudWork.Auxogyn/faq/RZE635w4 (This link is being provided for informational/ educational purposes only.) Please note: Effective 07/20/2016, HPV testing will be performed using [employer]'s APTIMA test which targets mRNA. Detecting mRNA instead of DNA, as in older methods, offers significant improvements in specificity. 12/10/2017 12:5 1 PM EST us Aliza Beverly SMALL HISTORICAL/NON ORDERABLE LAB S Final Result [facility] [address] from Last 3 Months or Most Recently Relevant to Health Maintenance Insurance [facility] C3 DENTAL-[facility] MEDICAID STAND ADULT Care Teams Pattern Attendant Relationship Specialty Start Date End Date Aliza Paul DO [address] [place] [address] PCP - General Family Medicine 02/23/12 Lesley Ingram Community Health Worker 05/17/24 Rocio Ingram, RICHARDSON [address] [place] [address] Registered Nurse Family Medicine 04/19/25 Kathrine Blank 04/19/25 [facility] 05/29/25
--- OUTSIDE RECORDS SUMMARY | 2025-08-20 20:17 | XMS_ITS ---
Author Organization [employer] Address [address] [place] [address] 7t [place] [address] Care Team Providers Care Supervisor Silvering Department Name Role Phone Aliza Paul DO Primary Care Provider [phone] Lesley Ingram Unavailable Rocio Ingram RN Unavailable [phone] Kathrine Blank Unavailable CHW Complex Status:Outreach In Progress (Enrolling) Start date:04/19/2025 Enrollment reason:ADT Feed Overview ADT-[facility] ED 04/18/25. Please outreach for enrollment. Case Team Name Relationship Phone Kathrine Blank(Responsible Staff) [phone] Continued Care and Services Coordination
--- OUTSIDE RECORDS SUMMARY | 2025-08-20 20:17 | XMS_ITS | Encounter Summary ---
Author Organization [employer] Address 75 [facility] 7t [place] [address] Care Team Providers Care Public Address System Operator Name Role Phone Aliza Paul DO Primary Care Provider [phone] Lesley Ingram Unavailable Rocio Ingram RN Unavailable [phone] Kathrine Blank Unavailable Reason for Visit * Reason Onset Date Comments chartprep 08/17/2025 Encounter Details Date Type Department Care Team (Late st Contact Info) Description 08/17/2025 Telephone [facility] [address] [place], [place] [phone] Aliza Paul DO [address] [place], [place] [phone] chartprep Social History Tobacco Use Types Packs/Day Years [...] encounter Miscellaneous Notes * Telephone Encounter - Talya Temple [place] - 08/17/2025 10:46 AM EDT .Chart Prep Labs: done Images: done XR chest Vaccines due: Covid Due, PCV20 Due, Flu Due, and Shingles in pharmacy Due Referrals: Not Applicable Screenings: Colonoscopy Overdue care gaps: PHQ9 and GAD7 documented in this encounter Plan of Treatment Not on file documented as of this encounter Visit Diagnoses Not on filedocumented in this encounter Additional Health Concerns Assessment Noted Time PHQ-9 Depression Total Score: 15 024 9:20 AM EDT documented as of this encounter Care Teams Public Address System Operator Relationship Specialty Start Date End Date Aliza Paul DO [address] [place] [address] PCP - General Family Medicine 02/23/12 Lesley Ingram Community Health Worker 05/17/24 Rocio Ingram RN [address] [place] [address], [place] [address] Registered Nurse Family Medicine 04/19/25 Kathrine Blank 04/19/25 [facility] 05/29/25 documented as of this encounter
--- OUTSIDE RECORDS SUMMARY | 2025-08-20 20:17 | XMS_ITS | Encounter Summary ---
Author Organization [employer] Address 75 [facility] 7t [place] [address] Care Team Providers Care Talent Acquisition Associate Name Role Phone Aliza Paul DO Primary Care Provider [phone] Lesley Ingram Unavailable Rosi Castro RN Unavailable [phone] Rosi Castro RN Unavailable [phone] Lesley Ingram Unavailable Rocio Ingram RN Unavailable Kathrine Blank Unavailable Reason for Visit * Reason Comments Med Refill Encounter Details Date Type Department Care Team (Late st Contact Info) Description 08/18/2024 Refill [facility] [address] [place], [place] [phone] Aliza Paul DO [address] [place], [place] [phone] Closed supracondylar fracture of right humerus with [...] documented as of this encounter Care Teams Talent Acquisition Associate Relationship Specialty Start Date End Date Aliza Paul DO [address] [place] [address] PCP - General Family Medicine 02/23/12 Lesley Ingram Community Health Worker 05/17/24 Rosi Castro RN [address] [place] [address] Document Processing Specialist 05/17/24 03/05/25 Rosi Castro RN [address] [place] [address] Registered Nurse Family Medicine 04/06/25 04/10/25 Lesley Ingram 04/06/25 04/10/25 Rocio Ingram RN [address] [place] [address] Registered Nurse Family Medicine 04/19/25 Kathrine Blank 04/19/25 [facility] 07/27/24 05/28/25 [facility] 05/29/25 documented as of this encounter
--- OUTSIDE RECORDS SUMMARY | 2025-08-20 20:17 | XMS_ITS ---
Author Organization [employer] Address [address] [place] [address] 7t [place] [address] Care Team Providers Care Die Repairer Forging Name Role Phone Aliza Paul DO Primary Care Provider Lesley Ingram Unavailable Rocio Ingram RN Unavailable [phone] Kathrine Blank Unavailable CM Complex Status:Outreach In Progress (Enrolling) Start date:04/19/2025 Enrollment reason:ADT Feed Overview ADT-[facility] ED 04/18/25 Case Team Name Relationship Phone Rocio Ingram RN(Responsible Staff) Registered Nurse [phone] Continued Care and Services Coordination
--- OUTSIDE RECORDS SUMMARY | 2025-08-20 20:17 | XMS_ITS | Encounter Summary ---
Author Organization [employer] Address 75 [facility] 7t [place] [address] Care Team Providers Care Nurses Superintendent Name Role Phone Aliza Paul DO Primary Care Provider [phone] Lesley Ingram Unavailable Rocio Ingram RN Unavailable [phone] Kathrine Blank Unavailable Encounter Details Date Type Department Care Team (Late st Contact Info) Description 08/20/2025 Patient Outreach [facility] 230 [place], [place] [phone] Aliza Paul DO 230 [place] [address] Social History Tobacco Use Types Packs/Day Years [...] documented as of this encounter Care Teams Nurses Superintendent Relationship Specialty Start Date End Date Aliza Paul DO [address] [place] [address] PCP - General Family Medicine 02/23/12 Lesley Ingram Community Health Worker 05/17/24 Rocio Ingram RN [address] [place] [address] Registered Nurse Family Medicine 04/19/25 Kathrine Blank 04/19/25 [facility] 05/29/25 documented as of this encounter
--- OUTSIDE RECORDS SUMMARY | 2025-08-20 20:17 | XMS_ITS | Encounter Summary ---
Author Organization [employer] Address 75 [facility] 7t [place] [address] Care Team Providers Care Confectionery Maker Name Role Phone Aliza Paul DO Primary Care Provider [phone] Lesley Ingram Unavailable Rosi Castro RN Unavailable [phone] Rosi Castro RN Unavailable [phone] Lesley Ingram Unavailable Rocio Ingram RN Unavailable Kathrine Blank Unavailable Reason for Visit * Reason Comments Med Refill Encounter Details Date Type Department Care Team (Late st Contact Info) Description 09/29/2024 Refill [facility] 230 [place], [place] [phone] Aliza Paul DO [address] [place], [place] [phone] Closed supracondylar fracture of right humerus with [...] documented as of this encounter Care Teams Confectionery Maker Relationship Specialty Start Date End Date Aliza Paul DO [address] [place] [address] PCP - General Family Medicine 02/23/12 Lesley nIgram Community Health Worker 05/17/24 Rosi Castro RN [address] [place] [address] Heading Machine Operator 05/17/24 03/05/25 Rosi Castro RN 505 [place] [address] Registered Nurse Family Medicine 04/06/25 04/10/25 Lesley Ingram 04/06/25 04/10/25 Rocio Ingram RN 505 [place] [address] Registered Nurse Family Medicine 04/19/25 Kathrine Blank 04/19/25 [facility] 07/27/24 05/28/25 [facility] 05/29/25 documented as of this encounter
--- OUTSIDE RECORDS SUMMARY | 2025-08-20 20:17 | XMS_ITS | Encounter Summary ---
Author Organization [employer] Address 75 [facility] 7t [place] [address] Care Team Providers Care Supervisor Warping Department Name Role Phone BeverlyAliza Primary Care Provider [phone] Lesley Ingram Unavailable Rocio Ingram RN Unavailable [phone] Kathrine Blank Unavailable Encounter Details Date Type Department Care Team (Late st Contact Info) Description 08/20/2025 Orders Only GENERIC EXTERNAL DATA [...] METABOLIC PANEL Routine 08/20/2025 7:42 PM EDT documented in this encounter Results * (ABNORMAL) CBC auto differential (08/20/2025 7:42 PM EDT) White Blood Count 7.8 4.8 - 10.8 X10*3/uL [facility] Red Blood Count 5.06 4.20 - 5.50 X10*6/uL [facility] Hemoglobin 14.0 12.0 - 16.0 g/dl [facility] Hematocrit 42.0 37.0 - 47.0 % [facility] Mean Corpuscular Volume 83.0 80.0 - 98.0 fL [facility] Mean Corpuscular Hemoglobin 27.7 27.0 - 33.0 pg [facility] Mean Corpuscular HGB Conc 33.3 31.0 - 35.0 g/dl [facility] Red Cell Distribution Width 11.8 11.0 - 16.0 % [facility] Platelet Count 291 160 - 400 X10*3/uL [facility] Mean Platelet Volume 9.9 9.4 - 12.3 fL [facility] Neutrophils Percent Auto 45.2 45 - 73 % [facility] Imm Gran Pct Auto 0.1 0.0 - 0.4 % [facility] Lymphocytes Percent Auto 42.1(H) 20 - 40 % [facility] Monocytes Percent Auto 8.2 2 - 11 % [facility] Eosinophils Percent Auto 3.8 0 - 4 % [facility] Basophils Percent Auto 0.6 0 - 2 % [facility] NRBC Pct Auto 0.0 0.0 - 0.2 /100WBC [facility] Neutrophils Absolute Auto 3.5 2.0 - 8.3 x10*3/uL [facility] Imm Gran Abs Auto 0.01 0.00 - 0.03 X10*3/uL [facility] Lymphocytes Absolute Auto 3.3 1.2 - 4.9 X10*3/uL [facility] Monocytes Absolute Auto 0.6 0.1 - 1.2 X10*3/uL [facility] Eosinophils Absolute Auto 0.3 0.0 - 0.4 X10*3/uL [facility] Basophils Absolute Auto 0.1 0.0 - 0.2 X10*3/uL [facility] NRBC Abs Auto 0.000 0.0 - 0.012 X10*3/uL [facility] 08/20/2025 7:42 PM EDT 08/20/2025 7:44 PM EDT us Generic External Data Provider LAB BLOOD ORDERAB LES Final Result [facility] [address] [place] [address] [phone] * (ABNORMAL) Basic Metabolic Panel (08/20/2025 7:42 PM EDT) Sodium 144 135 - 145 mmol/L [facility] Potassium 3.7 3.3 - 5.1 mmol/L [facility] Chloride 114(H) 96 - 108 mmol/L [facility] Carbon Dioxide 23 22 - 29 mmol/L [facility] Anion Gap 11(L) 12 - 20 [facility] Urea Nitrogen (BUN) 20(H) 9 - 16 mg/dL [facility] Creatinine, Serum 0.71 0.5 - 1.4 mg/dL [facility] Creatinine Clr Calc Pharmacy 90.7 [facility] Comment:Provided height and weight: 160.02 cm,89.8 kg.eGFR (calculated from the MDRD study equation) and eCrCl(calculated from the Cockcroft-Gault equation) are based ondifferent parameters and may not yield comparable results.If eCrCl result is absurd, please check patient'sheight/weight. Estimated Glomerular Filt Rate >60 [facility] Comment:Chronic Kidney Disea se: Estimated GFR < 60 mL/min/1.26b8Zwthsy Kidney Disease: Estimated GFR < 15 mL/min/1.73m2 Glucose 102 60 - 115 mg/dL [facility] Calcium 8.5 8.4 - 10.2 mg/dL [facility] 08/20/2025 7:42 PM EDT 08/20/2025 7:44 PM EDT us Generic External Data Provider LAB BLOOD ORDERAB LES Final Result [facility] [address] [place] [address] [phone] documented in this encounter Visit Diagnoses Not on filedocumented in this encounter Additional Health Concerns Assessment Noted Time PHQ-9 Depression Total Score: 15 024 9:20 AM EDT documented as of this encounter Care Teams Supervisor Warping Department Relationship Specialty Start Date End Date Aliza Paul DO [address] [place] [address] PCP - General Family Medicine 02/23/12 Lesley Ingram Community Health Worker 05/17/24 Rocio Ingram RN [address] [place] [address] Registered Nurse Family Medicine 04/19/25 Kathrine Blank 04/19/25 [facility] 05/29/25 documented as of this encounter
--- OUTSIDE RECORDS SUMMARY | 2025-08-20 20:17 | XMS_ITS | Encounter Summary ---
Author Organization [employer] Address 75 [facility] 7t [place] [address] Care Team Providers Care Property And Equipment Clerk Name Role Phone Aliza Paul DO Primary Care Provider [phone] Lesley Ingram Unavailable Rosi Castro RN Unavailable [phone] Rosi Castro RN Unavailable [phone] Lesley Ingram Unavailable Rocio Ingram RN Unavailable [phone] Kathrine Blank Unavailable Reason for Visit * Reason Comments Med Refill Encounter Details Date Type Department Care Team (Late st Contact Info) Description 12/27/2024 Refill [facility] 230 [place], [place] [phone] Aliza Paul DO [address] [place], [place] [phone] Other chronic pain Social History Tobacco Use [...] documented as of this encounter Care Teams Property And Equipment Clerk Relationship Specialty Start Date End Date Aliza Paul DO [address] [place] [address] PCP - General Family Medicine 02/23/12 Lesley Ingram Community Health Worker 05/17/24 Rosi Castro RN [address] [place] [address] Parimutuel Clerk 05/17/24 03/05/25 Rosi Castro RN [address] [place] [address] Registered Nurse Family Medicine 04/06/25 04/10/25 Lesley Ingram 04/06/25 04/10/25 Rocio Ingram, RICHARDSON [address] [place] [address] [place] [address] Registered Nurse Family Medicine 04/19/25 Kathrine Blank 04/19/25 [facility] 07/27/24 05/28/25 [facility] 05/29/25 documented as of this encounter
--- OUTSIDE RECORDS SUMMARY | 2025-08-20 20:17 | XMS_ITS | Encounter Summary ---
Author Organization [employer] Address 75 [facility] 7t [place] [address] Care Team Providers Care Checker Cashier Name Role Phone Aliza Paul DO Primary Care Provider Lesley Ingram Unavailable Rosi Castro RN Unavailable [phone] Rosi Castro RN Unavailable [phone] Lesley Ingram Unavailable Rocio Ingram RN Unavailable [phone] Kathrine Blank Unavailable Reason for Visit * Reason Onset Date Comments PT1 12/12/2024 Encounter Details Date Type Department Care Team (Late st Contact Info) Description 12/12/2024 Telephone [facility] [address] [place], [place] [phone] Aliza Paul DO [address] [place], [place] [phone] PT1 Social History Tobacco Use Types Packs/Day [...] Y/N: Yes Provider name or facility name: [facility] Facility Address: [address] [place] [address] Escort needed: Y/N: Yes Do you have [...] documented as of this encounter Care Teams Checker Cashier Relationship Specialty Start Date End Date Aliza Paul DO [address] [place] [address] PCP - General Family Medicine 02/23/12 Lesley Ingram Community Health Worker 05/17/24 Rosi Castro, RN [address] [place] [address] Machine Room Operator 05/17/24 03/05/25 Rosi Castro, R[place]ARDSON [address] [place] [address] Registered Nurse Family Medicine 04/06/25 04/10/25 Lesley Ingram 04/06/25 04/10/25 Rocio Ingram RN [address] [place] [address] Registered Nurse Family Medicine 04/19/25 Kathrine Blank 04/19/25 [facility] 07/27/24 05/28/25 [facility] 05/29/25 documented as of this encounter
--- OUTSIDE RECORDS SUMMARY | 2025-08-20 20:17 | XMS_ITS | Encounter Summary ---
Author Organization [employer] Address [address] [place] [address] 7t [place] [address] Care Team Providers Care Primary School Principal Name Role Phone Aliza Paul DO Primary Care Provider [phone] Lesley Ingram Unavailable Rosi Castro RN Unavailable [phone] Rosi Castro RN Unavailable Lesley Ingram Unavailable Rocio Ingram RN Unavailable [phone] Kathrine Blank Unavailable Reason for Visit * Reason Onset Date Comments FYI 08/14/2024 Encounter Details Date Type Department Care Team (Late st Contact Info) Description 08/14/2024 Telephone [facility] [address] [place], [place] [phone] Aliza Paul DO [address] [place], [place] [phone] FYI Social History Tobacco Use Types Packs/Day [...] - 08/14/2024 10:28 AM EDT [facility] went to visit pt today to be able to change catheter. But when she arrived pt was being put in the ambulance and was going to be transported to [facility] [place] [facility]ness of breath. documented in this encounter Plan of Treatment Not on file documented as of this encounter Visit Diagnoses Not on filedocumented in this encounter Additional Health Concerns Assessment Noted Time PHQ-9 Depression Total Score: 4 03/09/20 24 9:14 AM EDT documented as of this encounter Care Teams Primary School Principal Relationship Specialty Start Date End Date Aliza Paul DO [address] [place] [address] PCP - General Family Medicine 02/23/12 Lesley Ingram Community Health Worker 05/17/24 Rosi Castro, RICHARDSON [address] [place] [address] Chicken Fancier 05/17/24 03/05/25 Rosi Castro RN [address] [place] [address] Registered Nurse Family Medicine 04/06/25 04/10/25 Lesley Ingram 04/06/25 04/10/25 Rocio Ingram RN [address] [place] [address] Registered Nurse Family Medicine 04/19/25 Kathrine Blank 04/19/25 [facility] 07/27/24 05/28/25 [facility] 05/29/25 documented as of this encounter
--- OUTSIDE RECORDS SUMMARY | 2025-08-20 20:17 | XMS_ITS | Clinical Summary ---
Author Organization [address] [facility] Address [address] [place] [address] Phone Care Team Providers Care Postie Name Role Phone Aliza Paul DO Primary Care Provider [phone] Social History Tobacco Use Types Packs/Day Years Used Date Smoking Tobacco: Never Assessed Comments Unknown Sex and Gender Information Value Date Recorded Sex Assigned at Not on file Legal Sex Female 6:15 PM EST Gender Identity Not on file Sexual Orientation Not on file Plan of Treatment Health Maintenance Due Date Last Done Comments Breast Cancer Screening 1965 Colorectal Cancer Screening: Colonoscopy 1965 Hepatitis A Vaccines (1 of 2 - Risk 2-dose series) 1984 Hepatitis B Vaccines (1 of 3 - 19+ 3-dose series) 1984 Cervical Cancer Screening: P ap Smear 1986 RSV Immunization Adult Patients (1 - Risk 50-74 years 1-dose series) 2015 Zoster Vaccines (1 of 2) 2015 Pneumococcal Vaccine: 50+ Years (2 of 2 - PCV) 12/16/2022 12/16/2021 Hepatitis C Screening 09/30/2024 Social Influencers of Health Screening 09/30/2024 Depression Screening 11/08/2024 COVID-19 Vaccine (2 - 2024-2 6 season) 2025 10/17/2022 Influenza Vaccine (#1) 2025 7, 08/16/2014, 08/02/2012 Hypertension/CHF/CAD Annual BMP Blood Test 12/08/2025 12/08/2024 Cholesterol Screening (Lipid Panel) 01/28/2027 01/28/2022 DTaP,Tdap,and Td Vaccines (4 - Td or Tdap) 09/06/2032 09/06/2022, 09/06/2022, 12/16/2021 HIV Screening Completed 01/28/2022 HIB Vaccines Aged [...] topic Insurance MEDICAID - [place] Care Teams Postie Relationship Specialty Start Date End Date Aliza Paul DO [address] [place] [address] PCP - General Family Medicine 10/04/24
--- OUTSIDE RECORDS SUMMARY | 2025-08-20 20:17 | XMS_ITS | Encounter Summary ---
Author Organization [facility] Address [address] [place] [address] Care Team Providers Care Marking Machine Operator Name Role Phone Aliza Paul DO Primary Care Provider [phone]- [phone] Encounter Details Date Type Department Care Team (Late st Contact Info) Description 09/29/2024 Lab Requisition [facility] Main Lab [address] [facility] [place] [address] Aliza Paul DO [address] [place], [place] Urinary tract infection, site not specified [...] mirabilis(A ) OFELIA 10/01/2024 9:03 AM EST [facility] Comment: Edited result: Previously reported as Proteus species on 09/30/2024 at 1159 EST. Urine Urine specimen from urinary conduit / Unknown 09/29/2024 3:30 PM EST 09/29/2024 6:23 PM EST [facility]ative [facility] - 10/01/2024 9:03 AM EST [...] LAB MICROBIOLOGY - GENERAL ORDERABLES Final Result [facility] [address] [place] [address], documented in this encounter Visit Diagnoses Diagnosis Urinary tract infection, site not specified documented in this encounter Care Teams Marking Machine Operator Relationship Specialty Start Date End Date Aliza Paul DO [address] [place] [address] PCP - General Family Medicine 10/04/24 documented as of this encounter
[2025-08-20 20:32] LABS: Appearance Urine Cloudy; Glucose Urine UA Negative (Negative); PH 5.5 (5.0-9.0); Specific Gravity - Urine >= 1.030 (1.005-1.025); UMIC TRIGGER UACC YES
--- NOTE | 2025-08-20 20:41 | PC.NURSE ---
Late entry for 2014 RN approached PRANAV Ayanna to present this patient and asked if a new covarrubias catheter could be placed as the pt reports her current covarrubias being in place x3 weeks and being set for change in 1 week. Per PRANAV, this RN to have bladder scan completed, then remove existing covarrubias and replace with new one to obtain UA sample.
[2025-08-20 21:29] LABS: UACC Culture Trigger YES
[2025-08-20 21:57] VITALS: BP 168/96; PULSE 69; RESP 19; TEMP 36.6; O2SAT 97
--- NOTE | 2025-08-20 22:11 | PC.NURSE ---
pt medicated according to mar. awaiting transportation to home. pt verbalized understanding of discharge plan
[2025-08-20 23:05] VITALS: BP 168/96; PULSE 69; RESP 19; TEMP 36.6; O2SAT 97
[2025-08-20 23:22] VITALS: BP 160/75; PULSE 64; RESP 20; TEMP 36.4; O2SAT 96
== END 2025-08-21 00:51 | disposition home or self-care (01) ==
PROVIDERS: Physician Assistant; Emergency Provider Emergency Medicine Emergency Medical Services; PCP Family Medicine
DX: T83.511A Infection and inflammatory reaction due to indwelling urethral catheter, initial encounter (principal); Y73.1 Therapeutic (nonsurgical) and rehabilitative gastroenterology and urology devices associated with adverse incidents; Y92.9 Unspecified place or not applicable; N31.2 Flaccid neuropathic bladder, not elsewhere classified; I69.354 Hemiplegia and hemiparesis following cerebral infarction affecting left non-dominant side; I10 Essential (primary) hypertension
CPT/HCPCS: 36415; 51702; 51798; 80048; 81001; 85025; 87086; 87088; 87186; 99283; 99285

== ENCOUNTER 2025-09-17 22:27 | Emergency (ER) | payer MEDICAID, SELFPAY ==
[2025-09-17 22:28] VITALS: BP 134/76; BP 164/90; PULSE 61; RESP 20; TEMP 36.4; O2SAT 96; BMI 34.6
[2025-09-17 22:36] VITALS: BP 134/76; PULSE 61; RESP 20; TEMP 36.4; O2SAT 96
--- OUTSIDE RECORDS SUMMARY | 2025-09-17 23:39 | XMS_ITS | Encounter Summary ---
Author Organization [employer] Address [address] [place] [address] 7 [place] [address] Care Team Providers Care Mold Hoister Name Role Phone Aliza Paul DO Primary Care Provider [phone] Lesley Ingram Unavailable Rosi Castro RN Unavailable Unavailable Rosi Castro RN Unavailable Unavailable Lesley Ingram Unavailable Rocio Ingram RN Unavailable [phone] Kathrine Blank Unavailable Reason for Visit * Reason Onset Date Comments fyi 01/17/2025 Encounter Details Date Type Department Care Team (Late st Contact Info) Description 01/17/2025 Telephone [facility] MEDICINE [address] [place], [place] [phone] Aliza Paul DO [address] [place], [place] [phone] fyi Social History Tobacco Use Types Packs/Day [...] 9:12 AM EDT Tc from Martina with [employer] 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 If any questions please contact Martina [phone] documented in this encounter Plan of Treatment Not on file documented as of this encounter Visit Diagnoses Not on filedocumented in this encounter Additional Health Concerns Assessment Noted Time PHQ-9 Depression Total Score: 15 024 9:20 AM EDT documented as of this encounter Care Teams Mold Hoister Relationship Specialty Start Date End Date Aliza Paul DO [address] [place] [address] PCP - General Family Medicine 02/23/12 Lesley Ingram Community Health Worker 05/17/24 Rosi Castro RN Verifier 05/17/24 03/05/25 Rosi Castro RN Registered Nurse Family Medicine 04/06/25 04/10/25 Lesley Ingram 04/06/25 04/10/25 Rocio Ingram RN [address] [place] [phone] Registered Nurse Family Medicine 04/19/25 Kathrine Blank 04/19/25 [facility] 07/27/24 05/28/25 [facility] 05/29/25 documented as of this encounter
--- OUTSIDE RECORDS SUMMARY | 2025-09-17 23:39 | XMS_ITS | Encounter Summary ---
Author Organization [facility] Address [address] [place] [address] [address] [place] [address] Care Team Providers Care Sales And Service Consultant Name Role Phone Aliza Paul DO Primary Care Provider Lesley Ingram Unavailable Rosi Castro RN Unavailable Unavailable Rosi Castro RN Unavailable Unavailable Lesley Ingram Unavailable Rocio Ingram RN Unavailable [phone] Kathrine Blank Unavailable Reason for Visit * Reason Comments Med Refill Encounter Details Date Type Department Care Team (Late st Contact Info) Description 10/19/2024 Refill [facility] MEDICINE [address] [place], [place] [phone] Aliza Paul DO [address] [place], [place] [phone] Other chronic pain Social History Tobacco Use [...] as of this encounter Care Teams Sales And Service Consultant Relationship Specialty Start Date End Date Aliza Paul DO [address] [place] [id number] PCP - General Family Medicine 02/23/12 Lesley Ingram Community Health Worker 05/17/24 Rosi Castro RN Detailer Furniture 05/17/24 03/05/25 Rosi Castro RN Registered Nurse Family Medicine 04/06/25 04/10/25 Lesley Ingram 04/06/25 04/10/25 Rocio Ingram RN [address] [place] [id number] Registered Nurse Family Medicine 04/19/25 Kathrine Blank 04/19/25 [facility] 07/27/24 05/28/25 [facility] 05/29/25 documented as of this encounter
--- OUTSIDE RECORDS SUMMARY | 2025-09-17 23:39 | XMS_ITS | Encounter Summary ---
Author Organization [employer] Address [address] [place] [address] 7[address] [place] [address] Care Team Providers Care Manager Biostatistics Name Role Phone Aliza Paul DO Primary Care Provider [phone] Lesley Ingram Unavailable Rosi Castro RN Unavailable Unavailable Rosi Castro RN Unavailable Unavailable Lesley Ingram Unavailable Rocio Ingram RN Unavailable Kathrine Blank Unavailable Reason for Visit * Reason Comments Med Refill Encounter Details Date Type Department Care Team (Late st Contact Info) Description 07/01/2024 Refill [facility] MEDICINE [address] [place], [place] [phone] Aliza Paul DO [address] [place], [place] [phone] Other chronic pain Social History Tobacco Use [...] as of this encounter Care Teams Manager Biostatistics Relationship Specialty Start Date End Date Aliza Paul DO [address] [place] [phone] PCP - General Family Medicine 02/23/12 Lesley Ingram Community Health Worker 05/17/24 Rosi Castro RN [employer] Expansion Maker Hand 05/17/24 03/05/25 Rosi Castro RN Registered Nurse Family Medicine 04/06/25 04/10/25 Lesley Ingram 04/06/25 04/10/25 Rocio Ingram RN [address] [place] [address] Registered Nurse Family Medicine 04/19/25 Kathrine Blank 04/19/25 [facility] 07/27/24 05/28/25 [facility] 05/29/25 documented as of this encounter
--- OUTSIDE RECORDS SUMMARY | 2025-09-17 23:39 | XMS_ITS | Encounter Summary ---
Author Organization [employer] Address [address] [place] [address] [address] [place] [address] Care Team Providers Care Steam And Gas Turbines Assembler Name Role Phone Aliza Paul DO Primary Care Provider Lesley Ingram Unavailable Rosi Castro RN Unavailable Unavailable Rosi Castro RN Unavailable Unavailable Lesley Ingram Unavailable Rocio Ingram RN Unavailable [phone] Kathrine Blank Unavailable Encounter Details Date Type Department Care Team (Late st Contact Info) Description 11/04/2022 Telephone [facility] MEDICINE [address] [place], [place] [phone] Aliza Paul DO [address] [place], [place] [phone] Social History Tobacco Use Types Packs/Day Years [...] on filedocumented in this encounter Care Teams Steam And Gas Turbines Assembler Relationship Specialty Start Date End Date Aliza Paul DO [address] [place] [address] PCP - General Family Medicine 02/23/12 Lesley Ingram Community Health Worker 05/17/24 Rosi Castro, RICHARDSON Pattern Puncher 05/17/24 03/05/25 Rosi Castro RN Registered Nurse Family Medicine 04/06/25 04/10/25 Lesley Ingram 04/06/25 04/10/25 Rocio Ingram RN [address] [place] [phone] Registered Nurse Family Medicine 04/19/25 Kathrine Blank 04/19/25 [facility] 07/27/24 05/28/25 [facility] 05/29/25 documented as of this encounter
--- OUTSIDE RECORDS SUMMARY | 2025-09-17 23:39 | XMS_ITS | Clinical Summary ---
Author Organization [employer] Address [address] [place] [address] 7t [place] [address] Care Team Providers Care Sterilisation Technician Name Role Phone Aliza Paul DO Primary Care Provider [phone] Lesley Ingram Unavailable Rocio Ingram RN Unavailable [phone] Kathrine Blank Unavailable Allergies No known [...] 90 tablet 3 03/30/20 25 026 Active cholecalciferol VITAMIN D (Vitamin D-3) 50 MCG (1999 UT) capsule TAKE ONE CAPSULE DAILY 90 capsule 1 07/12/20 25 Active ARIPiprazole (Abilify) 2 MG [...] noon, and at bedtime for anxiety. 07/20/20 25 Active methenamine hippurate (Hiprex) 1 g tablet Take 1 tablet by mouth Once per day. 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 Assessment & Plan (06/21/2025 3:55 PM EDT): Referral to eye care, supportive measures reviewed Hemorrhoids 02/02/2025 Anxiety with depression 02/02/2025 Assessment & Plan (02/02/2025 4:23 PM EDT): Continue to follow-up with her therapist I will refer her to [facility] psych provider Polyarthralgia 02/02/2025 Assessment & Plan (02/02/2025 4:22 PM EDT): I will follow-up on her gabapentin to 400 mg 3 times a day, I advised to follow- up with PCP 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 We'll get OV notes sp hospital [...] stroke with residual deficit 05/23/20 Chronic indwelling Quinonez catheter 05/23/2024 History of [...] no appointment has been made. Currently under /[facility] care to assist with SDOH needs. Lack [...] services received in the past with [facility], currently she's not satisfied with [facility]. Pt opted for same-day appointments [...] , Patient to reach out to [facility] team as needed, and Patient to reach out to [facility] as needed Pt prefers to be self-referred for OP individual therapy and psychiatry to the [facility] programs. Pt was offered external referral; clinician informed about wait times and options to receive MH services through [facility] intake. Assessment & Plan (03/09/2024 [...] services received in the past with [facility], currently she's not satisfied with [facility]. Pt opted for same-day appointments [...] , Patient to reach out to [facility] team as needed, and Patient to reach out to [facility] as needed Pt prefers to be self-referred for OP individual therapy and psychiatry to the [facility] programs. Pt was offered external referral; clinician informed about wait times and options to receive MH services through [facility] intake. Assessment & Plan (10/26/2023 10:38 AM EST): PLAN: Continue with current services (defined as services in the past 12 months) , Behavioral Health Integration Plan Patient Self Plan Patient to reach out to [facility] team as needed, Patient to engage in OP therapy , and Patient to follow-up with external team, clinician to reach our to current therapist for Cheryl at [facility] to support process of reconnecting with psych [...] stroke in 05/2024). Pt was self-referred to [facility] programs, but reports no appointment has been made. Currently under /[facility] care to assist with SDOH needs. Lack [...] services received in the past with [facility], currently she's not satisfied with [facility]. Pt opted for same-day appointments with [facility] (information given. Cheryl screened positive [...] intervention , Patient to [facility] out [facility] team as needed, and Patient to reach out to [facility] as needed Pt prefers to be self-referred for OP individual therapy and psychiatry to the [facility] programs. Pt was offered external referral; clinician informed about wait times and options to receive MH services through [facility] intake. Resolved Problems Problem Noted [...] 10:16 AM EST): Wants to fu with [facility] Dr Jj instead of [facility], referral sent. [...] in 1m Cerebrovascular disease 04/09/201611/09 Severe obesity (CMS/HCC) 04/09/2016 Steatosis of liver 04/09/2016 3 Encounters Date Type Department Care Team Description 09/06/2025 Outside Procedure [facility] [address] [place] [address] Barrett Narayann, OD Presbyopia (Primary Dx) 09/04/2025 1:45 PM EDT Office Visit [facility] [address] [place] [address] Jayashree Narayan, OD Hyperopia of both eyes with astigmatism and presbyopia (Primary Dx) 08/25/[address] [address] Aliza Paul, Polyarthralgia 08/24/2025 Telephone [facility] [address] [place] [address] Aliza Paul DO Chart Prep 08/23/2025 Patient Outreach [address] [address] Aliza Paul DO 08/21/[address] [address] Aliza Paul DO Transition Of Care (Tcm) 08/20/2025 Orders Only GENERIC EXTERNAL DATA DEPARTMENT Provider, Generic External Data 08/20/2025 Patient Outreach [address] [address] Aliza Paul DO 08/17/[address] [address] Aliza Paul DO chartprep 08/13/2025 Patient Outreach [address] [address] Aliza Paul DO Pre-visit Planning (Pre-visit planning - LVM ) 08/07/[address] [address] Aliza Paul DO Chart Prep 08/05/[address] [address] Aliza Paul DO Closed supracondylar fracture of right humerus with routine healing 08/03/2025 Refill [facility] [address] [place] [address] Aliza Paul DO Muscle spasm 07/30/2025 Refill [facility] [address] [facility] [place] [address] Aliza Paul DO Closed supracondylar fracture of right humerus with routine healing 07/30/2025 Patient Outreach [facility] [address] [place] [address] Aliza Paul DO Care Management (C3CM- initial assessment/enrollment. Not available.) 07/20/2025 Telephone [facility] [address] [place] [address] Aliza Paul DO Appointment Request 07/17/2025 Telephone [facility] [address] [place] [address] Aliza Paul DO PT1-Modified 07/16/2025 Patient Outreach [facility] [address] [place] [address] Aliza Paul DO Transition Of Care (Tcm) (HDF- Scheduled ) 07/16/2025 Patient Outreach [facility] [address] [place] [address] Aliza Paul DO 07/14/2025 Refill [facility] [address] [place] [address] Aliza Paul DO 07/12/2025 Patient Outreach [facility] [address] [place] [address] Aliza Paul DO 07/10/2025 Patient Outreach [facility] [address] [place] [address] Aliza Paul DO Care Coordination (CM/CHW outreach) 07/07/2025 Refill [facility] [address] [place] [address] Aliza Paul DO 07/03/2025 Refill [facility] [address] [place] [address] Aliza Paul DO Polyarthralgia; Closed supracondylar fracture of right humerus with routine healing 06/29/2025 Refill [facility] [address] [place] [address] Aliza Paul, Anxiety disorder, unspecified type 06/21/2025 Telephone [facility] [address] [place] [address] Aliza Paul DO ER Follow-up 06/19/2025 Patient Outreach [facility] [address] [place] [address] Aliza Paul DO 06/18/2025 Orders Only GENERIC EXTERNAL DATA DEPARTMENT Provider, Generic External Data from Last 3 Months Immunizations Immunization Administration [...] URINALYSIS, COMPLETE, WITH REFLEX TO CULTURE Routine 08/20/2025 8:24 PM EDT CBC WITH AUTO DIFFERENTIAL Routine 08/20/2025 7:42 PM EDT BASIC METABOLIC PANEL Routine 08/20/2025 7:42 PM EDT CULTURE, URINE, ROUTINE Routine 08/20/2025 12:00 AM EDT URINALYSIS, COMPLETE, WITH REFLEX TO CULTURE Routine 06/18/2025 4:48 PM EDT CULTURE, URINE, ROUTINE Routine 06/18/2025 12:00 AM EDT LIPID PANEL, STANDARD Routine [...] (ABNORMAL) Urinalysis, Complete, with Reflex to Culture (08/20/2025 8:24 PM EDT) Only the most recent of2 resultswithin the time period is included. Color Urine Yellow [facility] Appearance Urine Cloudy [facility] PH 5.5 5.0 - 9.0 [facility] Glucose Urine UA Negative Negative mg/dL [facility] Urine Blood Large (3+)(A) Negative [facility] Specific Taylors - Urine >=1.030(H) 1.005 - 1.025 [facility] Urine Protein 300 (3+)(A) Neg-Trace mg/dL [facility] Urine Ketones Negative Negative mg/dL [facility] Nitrite Urine Negative Negative [facility] Leukocyte Esterase Urine Moderate (2+)(A) Negative [facility] RBC Urine >20(A) 0 - 2 /HPF [facility] Urine WBC >50(A) 0 - 5 /HPF [facility] Urine Squamous Epithelial Cell 0-2 0 - 2 /HPF [facility] CALCIUM OXALATE CRYSTAL, UR Present [facility] Urine Bacteria 1+ None Seen [facility] Hyaline Casts, Urine 3-5 0 - 2 /LPF [facility] 08/20/2025 8:24 PM EDT 08/20/2025 8:27 PM EDT Narrative [facility] - 08/20/2025 9:29 PM EDT Urine, Catheterized us Generic External Data Provider LAB URINE ORDERAB LES Final Result [facility] [address] [place] [phone] * (ABNORMAL) CBC auto differential (08/20/2025 7:42 PM EDT) White Blood Count 7.8 4.8 - 10.8 X10*3/uL [facility] Red Blood Count 5.06 4.20 - 5.50 X10*6/uL [facility] Hemoglobin 14.0 12.0 - 16.0 g/dl [facility] Hematocrit 42.0 37.0 - 47.0 % [facility] Mean Corpuscular Volume 83.0 80.0 - 98.0 fL [facility] Mean Corpuscular Hemoglobin 27.7 27.0 - 33.0 pg [facility] Mean Corpuscular HGB Conc 33.3 31.0 - 35.0 g/dl [facility] Red Cell Distribution Width 11.8 11.0 - 16.0 % [facility] Platelet Count 291 160 - 400 X10*3/uL [facility] Mean Platelet Volume 9.9 9.4 - 12.3 fL [facility] Neutrophils Percent Auto 45.2 45 - 73 % [facility] Imm Gran Pct Auto 0.1 0.0 - 0.4 % [facility] Lymphocytes Percent Auto 42.1(H) 20 - 40 % [facility] Monocytes Percent Auto 8.2 2 - 11 % [facility] Eosinophils Percent Auto 3.8 0 - 4 % [facility] Basophils Percent Auto 0.6 0 - 2 % [facility] NRBC Pct Auto 0.0 0.0 - 0.2 /100WBC [facility] Neutrophils Absolute Auto 3.5 2.0 - 8.3 x10*3/uL [facility] Imm Gran Abs Auto 0.01 0.00 - 0.03 X10*3/uL [facility] Lymphocytes Absolute Auto 3.3 1.2 - 4.9 X10*3/uL [facility] Monocytes Absolute Auto 0.6 0.1 - 1.2 X10*3/uL [facility] Eosinophils Absolute Auto 0.3 0.0 - 0.4 X10*3/uL [facility] Basophils Absolute Auto 0.1 0.0 - 0.2 X10*3/uL [facility] NRBC Abs Auto 0.000 0.0 - 0.012 X10*3/uL [facility] 08/20/2025 7:42 PM EDT 08/20/2025 7:44 PM EDT us Generic External Data Provider LAB BLOOD ORDERAB LES Final Result [facility] [address] [place] [address] [phone] * (ABNORMAL) Basic Metabolic Panel (08/20/2025 7:42 PM EDT) Sodium 144 135 - 145 mmol/L [facility] Potassium 3.7 3.3 - 5.1 mmol/L [facility] Chloride 114(H) 96 - 108 mmol/L [facility] Carbon Dioxide 23 22 - 29 mmol/L [facility] Anion Gap 11(L) 12 - 20 [facility] Urea Nitrogen (BUN) 20(H) 9 - 16 mg/dL [facility] Creatinine, Serum 0.71 0.5 - 1.4 mg/dL [facility] Creatinine Clr Calc Pharmacy 90.7 [facility] Comment:Provided height and weight: 160.02 cm,89.8 kg.eGFR (calculated from the MDRD study equation) and eCrCl(calculated from the Cockcroft-Gault equation) are based ondifferent parameters and may not yield comparable results.If eCrCl result is absurd, please check patient'sheight/weight. Estimated Glomerular Filt Rate >60 [facility] Comment:Chronic Kidney Disea se: Estimated GFR < 60 mL/min/1.25r9Ctqoxw Kidney Disease: Estimated GFR < 15 mL/min/1.73m2 Glucose 102 60 - 115 mg/dL [facility] Calcium 8.5 8.4 - 10.2 mg/dL [facility] 08/20/2025 7:42 PM EDT 08/20/2025 7:44 PM EDT us Generic External Data Provider LAB BLOOD ORDERAB LES Final Result [facility] [address] [place] [phone] * Culture, Urine, Routine (08/20/2025 12:00 AM EDT) Only the most recent of2 resultswithin the time period is included. Urine Urine specimen obtained by clean catch procedure / Unknown 08/20/2025 08/20/2025 Comment:UACC Narrative [facility] - 08/23/2025 7:31 AM EDT Escherichia coli Quant 10,000 to 50,000 cfu/mL Escherichia coli: Ampicillin 4(S) Escherichia coli: Cefazolin (Urine) 4(S) Escherichia coli: Cefepime <=0.12(S) Escherichia coli: Ceftriaxone <=0.25(S) Escherichia coli: Ciprofloxacin <=0.06(S) Escherichia coli: Gentamicin <=1(S) Escherichia coli: Nitrofurantoin 32(S) Escherichia coli: Trimethoprim/Sulfamethoxazole <=20(S) Specimen Source: Urine clean catch us Generic External Data Provider LAB MICROBIOLOGY - GENERAL ORDERABLES Final Result Performing Organization Address [facility] de Phone Number [facility] [address] [place] [phone] * (ABNORMAL) Lipid Panel, Standard (04/20/2025 12:48 PM EDT) Triglycerides 72 <150 mg/dL [facility] Comment:Desirable Triglyceri de: less than 150 mg/dLBorderline High Triglyceride 150-199 mg/dLHigh Triglyceride: 200-499 mg/dLVery High Triglyceride: greater than or equal to 5OO mg/dL Cholesterol 164 <200 mg/dL [facility] Comment:Desirable Cholestero l: less than 200 mg/dLBorderline High Cholesterol: 200-239 mg/dLHigh Cholesterol: greater than 239 mg/dL LDL Cholesterol Calculated 105(H) <100 mg/dL [facility] Comment:Desirable LDL: less than 100 mg/dLNear Optimal/Above Optimal LDL: 110- 129 mg/dLBorderline High LDL: 130-159 mg/dLHigh LDL: 160-189 mg/dLVery High LDL: greater than or equal to 190 mg/dL HDL Cholesterol 45 >40 mg/dL [facility] Comment:Desirable HDL: great er than 40 mg/dL Note: This HDL assay may give artificially low results in patients with liver disease. Blood Venous blood specimen / Unknown 04/20/2025 12:48 PM EDT 04/20/2025 4:07 PM EDT Aliza Paul DO LAB BLOOD ORDERABLES Final R esult Performing Organization Address City/[facility]/ZIP Co de Phone Number [facility] [address] [place] [address] [phone] * HEPATITIS C AB W/REFL TO HCV RNA, QN, PCR (01/28/2022 10:33 AM EDT) HEPATITIS C ANTIBODY NON-REACT ERNESTO NON-REACT ERNESTO [facility] INDEX 0.01 <1.00 [facility] Comment: HCV antibody was non-reactive. There is no laboratory evidence of HCV infection. In most cases, no further action is required. However, if recent HCV exposure is suspected, a test for HCV RNA (test code 12674) is suggested. For additional information please refer to http://GANTEC.[employer]/faq/GEO95k5 (This link is being provided for informational/ educational purposes only.) 01/28/2022 10:3 3 AM EDT Aliza Paul DO HISTORICAL/NON ORDERABLE LAB S Final Result [facility] [address] * HIV 1/2 ANTIGEN/ANTIBODY,FOURTH GENERATION W/RFL [...] purpose. For additional information please refer to http://[employer]/faq/HSX360 (This link is being provided for informational/ educational purposes only.) The performance of this assay has not been clinically validated in patients less than 2 years old. 01/28/2022 10:3 3 AM EDT Aliza Paul DO LAB BLOOD ORDERABLES Final R esult [facility] [address] [place] [address], * HPV E6/E7 RFLX ROMA 16 18/45 (12/10/2017 12:51 PM EST) ADDITIONAL TESTING Not indicated () [facility] Comment: Test Performed by [employer], [facility], [address] [place] [address] Ulises Silva M.D., Ph.D., Director of Laboratories , [place] [id number] HPV 16 RNA Test not performed [facility] HPV 18/45 RNA Test not performed [facility] HPV mRNA E6/E7 Not Detected NOT DETECTED [facility] Comment: This test was performed using the APTIMA(R) HPV Assay ([employer] This assay detects E6/E7 viral messenger RNA (mRNA) from 14 high-risk HPV types (16,18,31,33,35,39,45,51, 52,56,58,59,66,68). For additional information please refer to: http://education.[employer]/faq/WTH737u6 (This link is being provided for informational/ educational purposes only.) Please note: Effective 07/20/2016, HPV testing will be performed using [employer]'s APTIMA test which targets mRNA. Detecting mRNA instead of DNA, as in older methods, offers significant improvements in specificity. 12/10/2017 12:5 1 PM EST Aliza Paul DO HISTORICAL/NON ORDERABLE LAB S Final Result [facility] [address] [place] [address], from Last 3 Months or Most Recently Relevant to Health Maintenance Insurance * Guarantor: Cheryl Garcia Account Type Relation to Patient Date of Phone Billing Address Personal/Family Self [address] Care Teams Sterilisation Technician Relationship Specialty Start Date End Date Aliza Paul DO [address] [place] [address] PCP - General Family Medicine 02/23/12 Lesley Ingram Community Health Worker 05/17/24 Rocio Ingram, RICHARDSON [address] [place] [address] Registered Nurse Family Medicine 04/19/25 Kathrine Blank 04/19/25 [facility] 05/29/25
--- OUTSIDE RECORDS SUMMARY | 2025-09-17 23:39 | XMS_ITS | Encounter Summary ---
Author Organization [employer] Address [address] [place] [address] [address]t [place] [address] Care Team Providers Care Container Maker Name Role Phone Aliza Paul DO Primary Care Provider Lesley Ingram Unavailable Rosi Castro RN Unavailable Unavailable Rosi Castro RN Unavailable Unavailable Lesley Ingram Unavailable Rocio Ingram RN Unavailable [phone] Kathrine Blank Unavailable Reason for Visit * Reason Comments Med Refill Encounter Details Date Type Department Care Team (Late st Contact Info) Description 06/06/2024 Refill [facility] [address] [place], [place] [phone] Aliza Paul DO [address] [place], [place] [phone] Chronic nonintractable headache, unspecified headache type Social [...] documented as of this encounter Care Teams Container Maker Relationship Specialty Start Date End Date Aliza Paul DO [address] [place] [phone] PCP - General Family Medicine 02/23/12 Lesley Ingram Community Health Worker 05/17/24 Rosi Castro RN Pharmacy Associate 05/17/24 03/05/25 Rosi Castro RN Registered Nurse Family Medicine 04/06/25 04/10/25 Lesley Ingram 04/06/25 04/10/25 Rocio Ingram RN [address] [place] [address] Registered Nurse Family Medicine 04/19/25 Kathrine Blank 04/19/[address] [facility] 07/27/24 05/28/25 [facility] 05/29/25 documented as of this encounter
--- OUTSIDE RECORDS SUMMARY | 2025-09-17 23:39 | XMS_ITS | Encounter Summary ---
Author Organization [employer] Address [address] [place] [address] 7 [place] [address] Care Team Providers Care Skein Dyer Name Role Phone Aliza Paul DO Primary Care Provider Lesley Ingram Unavailable Rosi Castro RN Unavailable Unavailable Rosi Castro RN Unavailable Unavailable Lesley Ingram Unavailable Rocio Ingram RN Unavailable [phone] Kathrine Blank Unavailable Reason for Visit * Reason Onset Date Comments FYI 05/15/2024 Encounter Details Date Type Department Care Team (Late st Contact Info) Description 05/15/2024 Telephone [facility] [address] [place], [place] [phone] Aliza Paul DO [address] [place], [place] [phone] Social History Tobacco Use Types Packs/Day Years [...] Hospital and referral was also made to [facility] for additional homemaking, personal care and TAKER OFF services. Pt. Declined services. FYI for HDF 05/23/24 * Telephone Encounter - Timoteo Blank - 05/15/2024 1:04 PM EDT Tc from Karlie with [facility] calling to inform they were unable to admit pt into services, Karlie stated they managed to get in contact with pt but pt gave another excuse on why she wasn't able to accept services. If any questions you can contact Karlie at [phone]. documented in this encounter Plan of Treatment Not on file documented as of this encounter Visit Diagnoses Not on filedocumented in this encounter Additional Health Concerns Assessment Noted Time PHQ-9 Depression Total Score: 4 03/09/20 24 9:14 AM EDT documented as of this encounter Care Teams Skein Dyer Relationship Specialty Start Date End Date Aliza Paul DO [address] [place] [phone] PCP - General Family Medicine 02/23/12 Lesley Ingram Community Health Worker 05/17/24 Rosi Castro, RICHARDSON Dial Equipment Engineer 05/17/24 03/05/25 Rosi Castro RN Registered Nurse Family Medicine 04/06/25 04/10/25 Lesley Ingram 04/06/25 04/10/25 Rocio Ingram RN [address] [place] [phone] Registered Nurse Family Medicine 04/19/25 Kathrine Blank 04/19/25 [facility] 07/27/24 05/28/25 [facility] 05/29/25 documented as of this encounter
--- OUTSIDE RECORDS SUMMARY | 2025-09-17 23:39 | XMS_ITS | Encounter Summary ---
Author Organization [employer] Address [address] [place] [address] 7[address] [place] [address] Care Team Providers Care Anatomy Professor Name Role Phone Aliza Paul DO Primary Care Provider Lesley Ingram Unavailable Rosi Castro RN Unavailable Unavailable Rosi Castro RN Unavailable Unavailable Lesley Ingram Unavailable Rocio Ingram RN Unavailable [phone] Kathrine Blank Unavailable Encounter Details Date Type Department Care Team (Late st Contact Info) Description 11/04/2022 Orders Only [facility] [address] [place], [place] [phone] Aliza Paul DO [address] [place] [address] Social History Tobacco Use Types Packs/Day Years [...] on filedocumented in this encounter Care Teams Anatomy Professor Relationship Specialty Start Date End Date Aliza Paul DO [address] [place] [address] PCP - General Family Medicine 02/23/12 Lesley Ingram Community Health Worker 05/17/24 Rosi Castro, RICHARDSON Technical Staff Assistant 05/17/24 03/05/25 Rosi Castro RN Registered Nurse Family Medicine 04/06/25 04/10/25 Lesley Ingram 04/06/25 04/10/25 Rocio Ingram RN [address] [place] [address] Registered Nurse Family Medicine 04/19/25 Kathrine Blank 04/19/25 [facility] 07/27/24 05/28/25 [facility] 05/29/25 documented as of this encounter
--- OUTSIDE RECORDS SUMMARY | 2025-09-17 23:39 | XMS_ITS | Encounter Summary ---
Author Organization [employer] Address [address] [place] [address] 7 [place] [address] Care Team Providers Care Calendering Supervisor Name Role Phone Aliza Paul DO Primary Care Provider [phone] Lesley Ingram Unavailable Rosi Castro RN Unavailable Unavailable Rosi Castro RN Unavailable Unavailable Lesley Ingram Unavailable Rocio Ingram RN Unavailable [phone] Kathrine Blank Unavailable Encounter Details Date Type Department Care Team (Late st Contact Info) Description 05/18/[address] [facility] MEDICINE [address] [place], [place] [phone] Aliza Paul DO 230 [place], [place] [phone] Social History Tobacco Use Types Packs/Day Years [...] documented as of this encounter Care Teams Calendering Supervisor Relationship Specialty Start Date End Date Aliza Paul DO [address] [place] [address] PCP - General Family Medicine 02/23/12 Lesley Ingram Community Health Worker 05/17/24 Rosi Castro RN Call Center Associate 05/17/24 03/05/25 Rosi Castro RN Registered Nurse Family Medicine 04/06/25 04/10/25 Lesley Ingram 04/06/25 04/10/25 Rocio Ingram RN [address] [place] [address] Registered Nurse Family Medicine 04/19/25 Kathrine Blank 04/19/25 [facility] 07/27/24 05/28/25 [facility] 05/29/25 documented as of this encounter
--- OUTSIDE RECORDS SUMMARY | 2025-09-17 23:39 | XMS_ITS | Encounter Summary ---
Author Organization [employer] Address [address] [place] [address] 7 [place] [address] Care Team Providers Care Developer Relations Manager Name Role Phone Aliza Paul DO Primary Care Provider Lesley Ingram Unavailable Rosi Castro RN Unavailable Unavailable Rosi Castro RN Unavailable Unavailable Lesley Ingram Unavailable Rocio Ingram RN Unavailable [phone] Kathrine Blank Unavailable Reason for Visit * Reason Onset Date Comments PT-1 10/19/2024 Encounter Details Date Type Department Care Team (Late st Contact Info) Description 10/19/2024 Telephone [facility] MEDICINE 230 [place], [place] [phone] Aliza Paul DO 230 [place], [place] [phone] PT-1 Social History Tobacco Use Types Packs/Day [...] Y/N: Yes Provider name or facility name: [facility] Facility Address: [address] [place] [address] Escort needed: Y/N: Yes Do you have a wheelchair: Y/N: Yes If yes- Manual or electric: Sathish Visits: Once a month - Patient calling requesting PT1 Home Address verified: Y/N: Yes Provider name or facility name: [facility] Facility Address: [address] [place] [address] Escort needed: Y/N: Yes Do you have [...] documented as of this encounter Care Teams Developer Relations Manager Relationship Specialty Start Date End Date Aliza Paul DO 230 [place] [address] PCP - General Family Medicine 02/23/12 Lesley Ingram Community Health Worker 05/17/24 Rosi Castro, RICH[address] Street Supervisor 05/17/24 03/05/25 Rosi Castro RN Registered Nurse Family Medicine 04/06/25 04/10/25 Lesley Ingram 04/06/25 04/10/25 Rocio Ingram RN [address] [place] [address] Registered Nurse Family Medicine 04/19/25 Kathrine Blank 04/19/25 [facility] 07/27/24 05/28/25 [facility] 05/29/25 documented as of this encounter
--- OUTSIDE RECORDS SUMMARY | 2025-09-17 23:39 | XMS_ITS | Encounter Summary ---
Author Organization [employer] Address [address] [place] [address] 7t [place] [address] Care Team Providers Care Marsh Buggy Operator Name Role Phone Aliza Paul DO Primary Care Provider [phone] Lesley Ingram Unavailable Rosi Castro RN Unavailable Unavailable Rosi Castro RN Unavailable Unavailable Lesley Ingram Unavailable Rocio Ingram RN Unavailable [phone] Kathrine Blank Unavailable Reason for Visit * Reason Comments Med Refill Encounter Details Date Type Department Care Team (Late st Contact Info) Description 10/29/2023 Refill [facility] MEDICINE 230 [place], [place] [phone] Aliza Paul DO 230 [place], [place] [phone] Social History Tobacco Use Types Packs/Day Years Used Date Smoking Tobacco: Never Passive Smoke Exposure: Never Smokeless Tobacco: Never Alcohol Use Standard Drinks/Week Comments Never 0 (1 standard drink = 0.6 oz pur e alcohol) Housing Stability Answer Date Recorded What is your housing situation today? I have enzo tamra 08/23/[address] you li [...] on filedocumented in this encounter Care Teams Marsh Buggy Operator Relationship Specialty Start Date End Date Aliza Paul DO [address] [place] [address] PCP - General Family Medicine 02/23/12 Lesley Ingram Community Health Worker 05/17/24 Rosi Castro RN Store Custodian 05/17/24 03/05/25 Rosi Castro RN Registered Nurse Family Medicine 04/06/25 04/10/25 Lesley Ingram 04/06/25 04/10/25 Rocio Ingram RN [address] [place] [address] Registered Nurse Family Medicine 04/19/25 Kathrine Blank 04/19/25 [facility] 07/27/24 05/28/25 [facility] 05/29/25 documented as of this encounter
--- OUTSIDE RECORDS SUMMARY | 2025-09-17 23:40 | XMS_ITS | Encounter Summary ---
Author Organization [employer] Address [address] [place] [address] 7t [place] [address] Care Team Providers Care Pan Shaker Name Role Phone Aliza Paul DO Primary Care Provider Lesley Ingram Unavailable Rosi Castro RN Unavailable Unavailable Rosi Castro RN Unavailable Unavailable Lesley Ingram Unavailable Rocio Ingram RN Unavailable [phone] Kathrine Blank Unavailable Reason for Visit * Reason Comments Med Refill Encounter Details Date Type Department Care Team (Late st Contact Info) Description 12/27/2024 Refill [facility] MEDICINE 230 [place], [place] [phone] Aliza Paul DO 230 [place], [place] [phone] Other chronic pain Social History Tobacco Use [...] documented as of this encounter Care Teams Pan Shaker Relationship Specialty Start Date End Date Aliza Paul DO [address] [place] [address] PCP - General Family Medicine 02/23/12 Lesley Ingram Community Health Worker 05/17/24 Rosi Castro RN Plug Saw Operator 05/17/24 03/05/25 Rosi Castro RN Registered Nurse Family Medicine 04/06/25 04/10/25 Lesley Ingram 04/06/25 04/10/25 Rocio Ingram RN [address] [place] [address] Registered Nurse Family Medicine 04/19/25 Kathrine Blank 04/19/25 [facility] 07/27/24 05/28/25 [facility] 05/29/25 documented as of this encounter
--- OUTSIDE RECORDS SUMMARY | 2025-09-17 23:40 | XMS_ITS | Encounter Summary ---
Author Organization [employer] Address [address] [place] [address] 7 [place] [address] Care Team Providers Care Software Tester Name Role Phone Aliza Paul DO Primary Care Provider Lesley Ingram Unavailable Rosi Castro RN Unavailable Unavailable Rosi Castro RN Unavailable Unavailable Lesley Ingram Unavailable Rocio Ingram RN Unavailable [phone] Kathrine Blank Unavailable Reason for Visit * Reason Onset Date Comments FYI 08/14/2024 Encounter Details Date Type Department Care Team (Late st Contact Info) Description 08/14/2024 Telephone [facility] MEDICINE 230 [place], [place] [phone] Aliza Paul DO 230 [place], [place] [phone] FYI Social History Tobacco Use Types Packs/Day [...] 10:28 AM EDT [facility] went to visit pt today to be able to change catheter. But when she arrived pt was being put in the ambulance and was going to be transported to [facility] for shortness of breath. documented in this encounter Plan of Treatment Not on file documented as of this encounter Visit Diagnoses Not on filedocumented in this encounter Additional Health Concerns Assessment Noted Time PHQ-9 Depression Total Score: 4 03/09/20 24 9:14 AM EDT documented as of this encounter Care Teams Software Tester Relationship Specialty Start Date End Date Aliza Paul DO [address] [place] [address] PCP - General Family Medicine 02/23/12 Lesley Ingram Community Health Worker 05/17/24 Rosi Castro RN Explosives Worker 05/17/24 03/05/25 Rosi Csatro RN Registered Nurse Family Medicine 04/06/25 04/10/25 Lesley Ingram 04/06/25 04/10/25 Rocio Ingram RN [address] [place] [address] Registered Nurse Family Medicine 04/19/25 Kathrine Blank 04/19/25 [facility] 07/27/24 05/28/25 [facility] 05/29/25 documented as of this encounter
--- OUTSIDE RECORDS SUMMARY | 2025-09-17 23:40 | XMS_ITS | Encounter Summary ---
Author Organization [employer] Address [address] [place] [address] 7 [place] [address] Care Team Providers Care Focusing Machine Operator Name Role Phone Aliza Paul DO Primary Care Provider Lesley Ingram Unavailable Rosi Castro RN Unavailable Unavailable Rosi Castro RN Unavailable Unavailable Lesley Ingram Unavailable Rocio Ingram RN Unavailable [phone] Kathrine Blank Unavailable Reason for Visit * Reason Onset Date Comments PT-1 12/11/2024 Encounter Details Date Type Department Care Team (Late st Contact Info) Description 12/11/2024 Telephone [facility] MEDICINE 230 [place], [place] [phone] Aliza Paul DO 230 [place], [place] [phone] PT-1 Social History Tobacco Use Types Packs/Day [...] Y/N: Yes Provider name or facility name: [address] [place] [address], [address], [place] [address] [facility] [address] [place] [address] Escort needed: Y/N: Yes Do you have [...] documented as of this encounter Care Teams Focusing Machine Operator Relationship Specialty Start Date End Date Aliza Paul DO 230 [place] [address] PCP - General Family Medicine 02/23/12 Lesley Ingram Community Health Worker 05/17/24 Rosi Castro, RN Grab Driver 05/17/24 03/05/25 Rosi Castro, RN Registered Nurse Family Medicine 04/06/25 04/10/25 Lesley Ingram 04/06/25 04/10/25 Rocio Ingram RN [address] [place] [address] Registered Nurse Family Medicine 04/19/25 Kathrine Blank 04/19/25 [facility] 07/27/24 05/28/25 [facility] 05/29/25 documented as of this encounter
--- OUTSIDE RECORDS SUMMARY | 2025-09-17 23:40 | XMS_ITS | Clinical Summary ---
Author Organization [address] [facility] Address [address] [place] [address] Phone Care Team Providers Care Clergy Member Name Role Phone Aliza Paul DO Primary Care Provider [phone] Social History Tobacco Use Types Packs/Day Years [...] topic Insurance MEDICAID - [place] Care Teams Clergy Member Relationship Specialty Start Date End Date Aliza Paul DO [address] [place] [address] PCP - General Family Medicine 10/04/24
--- OUTSIDE RECORDS SUMMARY | 2025-09-17 23:40 | XMS_ITS | Encounter Summary ---
Author Organization [facility] Address [address] [place] [address] Care Team Providers Care Background Investigator Name Role Phone Aliza Paul DO Primary Care Provider [phone] Encounter Details Date Type Department Care Team (Late st Contact Info) Description 09/29/2024 Lab Requisition [facility] - Main Lab [address] [place] [address] Aliza Paul DO 230 [place], [place] Urinary tract infection, site not specified [...] OFELIA 10/01/2024 9:03 AM EST [facility] Comment: Edited result: Previously reported as Proteus species on 09/30/2024 at 1159 EST. Urine Urine specimen from urinary conduit / Unknown 09/29/2024 3:30 PM EST 09/29/2024 6:23 PM EST Narrative [facility] - 10/01/2024 9:03 AM EST [...] LAB MICROBIOLOGY - GENERAL ORDERABLES Final Result [facility] [address] [place] [address], documented in this encounter Visit Diagnoses Diagnosis Urinary tract infection, site not specified documented in this encounter Care Teams Background Investigator Relationship Specialty Start Date End Date Aliza Paul DO [address] [place] [address] PCP - General Family Medicine 10/04/24 documented as of this encounter
--- OUTSIDE RECORDS SUMMARY | 2025-09-17 23:40 | XMS_ITS ---
Author Organization [email or web address] Address [address] [place] [address] 7t [place] [address] Care Team Providers Care Barrel Plater Name Role Phone Aliza Paul DO Primary Care Provider Lesley Ingram Unavailable Rocio Ingram RN Unavailable Kathrine Blank Unavailable CM Complex Status:Outreach In Progress (Enrolling) Start date:04/19/2025 Enrollment reason:ADT Feed Overview ADT[facility] 04/18/25 Case Team Name Relationship Phone Rocio Ingram RN(Responsible Staff) Registered Nurse [phone] Continued Care and Services Coordination
--- OUTSIDE RECORDS SUMMARY | 2025-09-17 23:40 | XMS_ITS ---
Author Organization [employer] Address [address] [place] [address] 7t [place] [address] Care Team Providers Care Pastry Supervisor Name Role Phone Aliza Paul DO Primary Care Provider Lesley Ingram Unavailable Rocio Ingram RN Unavailable [phone] Kathrine Blank Unavailable CHW Complex Status:Outreach In Progress (Enrolling) Start date:04/19/2025 Enrollment reason:ADT Feed Overview [facility] 04/18/25. Please outreach for enrollment. Case Team Name Relationship Phone Kathrine Blank(Responsible Staff) [phone] Continued Care and Services Coordination
--- OUTSIDE RECORDS SUMMARY | 2025-09-17 23:40 | XMS_ITS | Encounter Summary ---
Author Organization [employer] Address [address] [place] [address] 7t [place] [address] Care Team Providers Care Web Methods Developer Name Role Phone Aliza Paul DO Primary Care Provider Lesley Ingram Unavailable Rosi Castro RN Unavailable Unavailable Rosi Castro RN Unavailable Unavailable Lesley Ingram Unavailable Rocio Ingram RN Unavailable Kathrine Blank Unavailable Reason for Visit * Reason Comments Med Refill Encounter Details Date Type Department Care Team (Late st Contact Info) Description 08/18/2024 Refill [facility] MEDICINE 230 [place], [place] [phone] Aliza Paul DO 230 [place], [place] [phone] Closed supracondylar fracture of right humerus with [...] documented as of this encounter Care Teams Web Methods Developer Relationship Specialty Start Date End Date Aliza Paul DO 230 [place] [address] PCP - General Family Medicine 02/23/12 Lesley Ingram Community Health Worker 05/17/24 Rosi Castro, RN Bar Helper 05/17/24 03/05/25 Rosi Castro RN Registered Nurse Family Medicine 04/06/25 04/10/25 Lesley Ingram 04/06/25 04/10/25 Rocio Ingram RN [address] [place] [address] Registered Nurse Family Medicine 04/19/25 Kathrine Blank 04/19/25 [facility] 07/27/24 05/28/25 [facility] 05/29/25 documented as of this encounter
--- OUTSIDE RECORDS SUMMARY | 2025-09-17 23:40 | XMS_ITS | Encounter Summary ---
Author Organization [employer] Address [address] [place] [address] 7 [place] [address] Care Team Providers Care Aggregate Conveyor Operator Name Role Phone Aliza Paul DO Primary Care Provider Lesley Ingram Unavailable Rosi Castro RN Unavailable Unavailable Rosi Castro RN Unavailable Unavailable Lesley Ingram Unavailable Rocio Ingram RN Unavailable Kathrine Blank Unavailable Reason for Visit * Reason Onset Date Comments PT1 12/12/2024 Encounter Details Date Type Department Care Team (Late st Contact Info) Description 12/12/2024 Telephone [facility] MEDICINE 230 [place], [place] [phone] Aliza Paul DO 230 [place], [place] [phone] PT1 Social History Tobacco Use Types Packs/Day [...] Y/N: Yes Provider name or facility name: [facility] Facility Address: [address] [place] [address] Escort needed: Y/N: Yes Do you have [...] documented as of this encounter Care Teams Aggregate Conveyor Operator Relationship Specialty Start Date End Date Aliza Paul DO [address] [place] [address] PCP - General Family Medicine 02/23/12 Lesley Ingram Community Health Worker 05/17/24 Rosi Castro, RN Auto Garage Attendant 05/17/24 03/05/25 Rosi Castro, RICHARDSON Registered Nurse Family Medicine 04/06/25 04/10/25 Lesley Ingram 04/06/25 04/10/25 Rocio Ingram RN [address] [place] [address] [place] [address] Registered Nurse Family Medicine 04/19/25 Kathrine Blank 04/19/25 [facility] 07/27/24 05/28/25 [facility] 05/29/25 documented as of this encounter
--- OUTSIDE RECORDS SUMMARY | 2025-09-17 23:40 | XMS_ITS | Encounter Summary ---
Author Organization [email or web address] Address [address] [place] [address] 7t [place] [address] Care Team Providers Care Pl Sql Developer Name Role Phone Aliza Paul DO Primary Care Provider Lesley Ingram Unavailable Rosi Castro RN Unavailable Unavailable Rosi Castro RN Unavailable Unavailable Lesley Ingram Unavailable Rocio Ingram RN Unavailable Kathrine Blank Unavailable Reason for Visit * Reason Comments Med Refill Encounter Details Date Type Department Care Team (Late st Contact Info) Description 09/29/2024 Refill [facility] MEDICINE 230 [place], [place] [phone] Aliza Paul DO 230 [place], [place] [phone] Closed supracondylar fracture of right humerus with [...] documented as of this encounter Care Teams Pl Sql Developer Relationship Specialty Start Date End Date Aliza Paul DO [address] [place] [address] PCP - General Family Medicine 02/23/12 Lesley Ingram Community Health Worker 05/17/24 Rosi Castro RN Refrigeration System Installer 05/17/24 03/05/25 Rosi Castro RN Registered Nurse Family Medicine 04/06/25 04/10/25 Lesley Ingram 04/06/25 04/10/25 Rocio Ingram RN [address] [place] [address] Registered Nurse Family Medicine 04/19/25 Kathrien Blank 04/19/25 [facility] 07/27/24 05/28/25 [facility] 05/29/25 documented as of this encounter
--- OUTSIDE RECORDS SUMMARY | 2025-09-17 23:40 | XMS_ITS | Encounter Summary ---
Author Organization [employer] Address [address] [place] [address] 7t [place] [address] Care Team Providers Care Blasting Miner Name Role Phone Aliza Paul DO Primary Care Provider Lesley Ingram Unavailable Rosi Castro RN Unavailable Unavailable Rosi Castro RN Unavailable Unavailable Lesley Ingram Unavailable Rocio Ingram RN Unavailable [phone] Kathrine Blank Unavailable Reason for Visit * Reason Onset Date Comments Nurse Triage 09/13/2024 Encounter Details Date Type Department Care Team (Late st Contact Info) Description 09/13/2024 Telephone [facility] MEDICINE 230 [place], [place] [phone] Aliza Paul DO 230 [place], [place] [phone] Nurse Triage Social History Tobacco Use Types [...] the past 12 months, has t he [employer], gas, oil or water [employer] threatened to shut off services in your [...] now. Pt is offered to come to [facility] which is open till 8pm today but, doesn't have transportation. Pt reports will come tomorrow to [facility] open 830am -400pm. Pt requests an uber ride for tomorrow. Uber is scheduled for 1155am pickle solution maker at Pt address for tomorrow. Pt [...] questions were negative * Telephone Encounter - Katyaondina Cortes - 09/13/2024 2:19 PM EST Symptom: [...] documented as of this encounter Care Teams Blasting Miner Relationship Specialty Start Date End Date Aliza Paul DO 230 [place] [address] PCP - General Family Medicine 02/23/12 Lesley Ingram Community Health Worker 05/17/24 Rosi Castro RN Experimental Technician 05/17/24 03/05/25 Rosi Castro RN Registered Nurse Family Medicine 04/06/25 04/10/25 Lesley Ingram 04/06/25 04/10/25 Rocio Ingram RN [address] [place] [address] Registered Nurse Family Medicine 04/19/25 Kathrine Blank 04/19/25 [facility] 07/27/24 05/28/25 [facility] 05/29/25 documented as of this encounter
--- OUTSIDE RECORDS SUMMARY | 2025-09-17 23:40 | XMS_ITS | Data Portability ---
Author Organization [facility] [employer] [facility], Main Office Address [address] [facility] [place] [address] Care Team Providers Care Heater Helper Name Role Phone TAYLOR ELIAS - 2ND [...] Orders Dilaudid 4 mg tablet 2023 024 [facility] , [address] [place] [address], [address], 4 17:08:30 Patient TargetsNo targets recorded. Patient InstructionsNo instructions recorded. Reason for Referral None Reported. Problems Name Problem SNOMED Code Status Onset Date Resolution Date Notes Provider Name and Address Organization Details Recorded Time Hypertens ollie emergency [id number] 104 Active 2023 Kyleigh Fritz NP [address] [facility], [address], [place], [address], [facility] [employer] 4 12:37:24 Headache 16358397 Active 2023 Kyleigh Fritz NP [address], [address], [place], [address], [facility] 4 12:37:35 Essential hypertens ion 43225787 Active 2023 Kyleigh Fritz NP [address], [address], [place], [address], [facility] 4 12:37:52 Chronic pain following spinal surgery Active 2023 Kyleigh Fritz NP [address], [place], [address], [facility] 4 12:38:52 Leukocyto sis 912881164 Active 2023 Kyleigh Fritz NP [address], [address], [place], [address], [facility] 4 12:39:04 Retention of urine 491859676 Completed 202304/13/2024 Kiana Cassidy MD [address] [facility], [address], [place], [address], [facility] 4 15:44:08 Anxiety 35578603 Active 2023 Kyleigh Fritz NP [address] [facility], [address], [place], [address], [facility] 4 12:39:32 History of cervical discectom y 649820162657 89386 Completed 202304/13/2024 Kyleigh Fritz NP [address] [facility], [address], [place], [address], [facility] 4 13:00:38 History of hemorrhag ic cerebrova scular accident with residual deficit 051568079298 106 Active 2023 Kyleigh Fritz NP [address] [facility], [address], [place], [address], [facility] 4 13:02:54 Gastroeso phageal reflux disease 953375535 Active 2023 Kyleigh Fritz NP [address] [facility], [address], [place], [address], [facility] 4 13:04:09 Retention of urine 965306279 Active 2023 Kiana Cassidy MD [address] [facility] [address], [address], [place], [address], [facility] 4 15:44:08 Urinary tract infectiou s disease 16079482 Active 2023 Kyleigh Fritz NP [address], [address], [place], [address], [employer] 4 13:32:30 Problem Notes None recorded. Medical [...] Updated DateTime 4 160.02 cm 32.6 kg/m2 86811 g 90 /min 18 /min 97.2 [degF] 98 % 98 % 115/80 mm[Hg] Kyleigh Fritz NP [address] [facility] [address], [address], [place], [address], [facility] 4 09:13:16 Date Recorded Body height Body mass index (BMI) Body weight Respiratory rate Heart rate Body temperature Oxygen saturation Oxygen saturation in Arterial blood by Pulse oximetry Systolic And Diastolic Provider Name and Address Organization Details Last Updated DateTime 4 160.02 cm 32.6 kg/m2 85514 g 19 /min 86 /min 97.5 [degF] 96 % 96 % 110/70 mm[Hg] Kyleigh Fritz NP [address] [facility], [facility] [address], [place], [address], [facility] 4 16:03:36 Date Recorded Body height Body weight Heart rate Respiratory rate Body temperature Oxygen saturation Oxygen saturation in Arterial blood by Pulse oximetry Systolic And Diastolic Provider Name and Address Organization Details Last Updated DateTime 4 160.02 cm 59853.1 4 g 85 /min 18 /min 97.4 [degF] 95 % 95 % 132/82 mm[Hg] Kyleigh Fritz NP [address] [facility] [address], [place], [address], [facility] 4 14:25:19 Date Recorded Body height Body mass index (BMI) Body weight Heart rate Respiratory rate Body temperature Oxygen saturation Oxygen saturation in Arterial blood by Pulse oximetry Systolic And Diastolic Provider Name and Address Organization Details Last Updated DateTime 4 160.02 cm 33.8 kg/m2 59486.1 4 g 83 /min 18 /min 98.1 [degF] 96 % 96 % 130/90 mm[Hg] Kyleigh Fritz NP [address] [place] [address], [place], [address], [facility] 4 11:09:43 Date Recorded Body height Body temperature Heart rate Respiratory rate Oxygen saturation Oxygen saturation in Arterial blood by Pulse oximetry Systolic And Diastolic Provider Name and Address Organization Details Last Updated DateTime 4 160.02 cm 97.9 [degF] 82 /min 18 /min 96 % 96 % 140/92 mm[Hg] LILLIAN GOMEZ [address] [facility] [address] [facility], [facility] [address], [place], [address], [place] [facility] 4 11:53:33 Social History Question Answer Notes LastModified by Organizat ion Details LastModified Time Tobacco Smoking Status Never Smoker she says not really Kiana Cassidy MD [address] [facility] [address], [facility] [address], [place], [address], [facility] 04/14/2024 21:45:44 Do You Have An [...] Do You Have A Medical Power Of Casting Repairer? Yes Not Invoked Information not available 04/14/2024 [...] Recorded Time Tdap 2 completed Helena wharton [facility] 04/07/2024 16:26:44 Tdap 2 completed [place] [facility]dal[facility] 04/07/2024 16:26:51 pneumococcal polysaccharide PPV23 2 completed [place] Magdaleno [facility] 04/07/2024 16:27:39 SARS-COV-2 (COVID-19) vaccine, UNSPECIFIED 2 completed [place] Magdaleno [facility] 04/07/2024 16:28:08 rabies, unspecified formulation 2 completed [place] Magdaleno [facility] 04/07/2024 16:28:22 Past Encounters Encounter ID Performer Location Encounter Start Date Encounter Closed Date Diagnosis/Indication Diagnosis SNOMED-CT Code Diagnosis ICD10 Code Diagnosis IMO Codes Diagnosis Note [id number] Kyleigh Fritz NP [facility] [address] [address] 04/05/2024 11:38:58 04/11/2024 14:41:13 Hypertensive crisis 433501602 I16.9 pt send to ER for hypertensi ve crisis initially 240/135 unrelieved by lisinopril , oxycodone, and anxiety medsBP 220/122 manually 1 hours post medssend to ER for hypertensi ve crisis Headache 33311337 R51.9 pt with head going to explode feeling and HTN crisis with recent hx of surgery and cvasend to ER for evaluation call [id number] Kyleigh Fritz NP [facility] [address] [address] 04/13/2024 12:11:45 04/17/2024 20:01:07 Hypertensive emergency 6316140537 26259 I16.1 felt related to pt not receiving pm meds on admission to rehab requiring nacard gtt and brief hypotensiv e episode with midodrine given felt stable on lisinopril 40 mg po dailymonit or vitals and bp Headache 71375778 R51.9 headache felt to be from hypertensi ve urgency aboveCT head no acute changes Chronic pa in following spinal surgery 0827802952 7102 G89.28 03/31-04/04 c 5-c7 acdf surgery [...] ax, senna dailywean as able Essential hypertension 00333528 I10 bp 148/98 here at 10amsee hypertensi ve emergency abovelisin opril 40 mg po dailymonit or vitals and bpcardiac diet Anxiety 21606309 F41.9 venlafaxin e 75 mg po daily(unsu re of why she is on this)hydro xyzine 50 mg po qid prn (was on bid)aripip razole 10 mg po dialymonit or and supportive care Leukocytosis 100976511 D 72.829 felt likely to medrol dose packmonito r labs weekly History of cervical discectomy 5694844370 6710014 Z98.890 recent hx of 03/31monito r neuros and fu with neuro Retention of urine 70751 4002 R33.9 hx of with chronic foleylast changed on 04/04foley careroutin e monthly changesmon itor History of hemorrhagic cerebrovascular accident with residual deficit 1800862697 59875 Z86.79 hx of stroke with residual deficitCT unremarkab leatorvast atin 20 mg po dailymonit or neuros Gastroesop hageal reflux disease 831284507 K21.9 famotidine 40 mg po dialymonit or [id number] [facility] [address] 04/14/2024 13:29:20 04/17/2024 20:21:04 Hypertensive emergency [id number] 87625 I16.1 Resolved inpt. Has had recurrent issues with labile BP including other episodes of hypertensi ve emergency, but then has had soft BPs and BP meds were held or d/c'd.Diff icult to manage. Has been running borderline high since return.Saqib l add HCTZ 25 mg qdContinue lisinopril 40 mg qd.Avoid BB due to bradycardi a.Monitor BP and labs. Headache 16155067 R51.9 With hx of migraines, but recent HAs due to hypertensi ve emergencie s.Monitor for sxs. Chronic pa in following spinal surgery 0907264158 7102 G89.28 Improving slowly in this woman [...] neurosurg on 04/20 as planned. Essential hypertension 92892532 I10 As above. Anxiety 15542551 F41.1 Mood continues to be labile.Con tinue venlafaxin e 75 mg qd, aripiprazo le 10 mg qd and hydroxyzin e 50 mg qid prn.Avoid benzos.Mon itor mood.Consu lt psych prn Leukocytosis 006105447 D 72.828 Much more elevated today.Will get U/A and C&S in this woman with chronic covarrubias.Nusrat tor for signs of infection. History of cervical discectomy 1443433921 0933406 Z98.890 As above. Retention of urine 78380 4002 R33.8 Apparently long standing.W as self cathing prior to stroke, now with chronic covarrubias, last changed on 04/04Contin ue covarrubias care and monthly changesWil l get U/A and C&S as above. History of hemorrhagic cerebrovascular accident with residual deficit 1398617126 84309 I61.1 S/P hemorrhagi c CVA in 01/2024.Con tinue PT/OT as above.Cont inue atorvastat in 20 mg qd.Keep SBP <160Monito r for new neuro sxs. Gastroesop hageal reflux disease 216486563 K21.9 No current sxs.Contin ue famotidine 40 mg qdMonitor for GI sxs. [id number] ATIF MILLER NP [facility] [place] [address] 04/18/2024 14:33:47 04/21/2024 11:31:02 Hypertensive emergency [id number] 86356 I16.1 Resolved inpt. Has had recurrent issues [...] a.Monitor BP and labs closely Essential hypertension 87308946 I10 As above. Leukocytosis 398954227 D 72.828 Trending up since admission, much better today (11.3)U/A and C&S ordered 04/14, but does not appear it was done - will re-orderCB C, BMP wednesdayVS o overt s/s infection at this time.Of note, is completing steroid taper. Headache 24250239 R51.9 With hx of migraines, but recent HAs due to hypertensi ve emergencie s.Monitor for sxs. Chronic pa in following spinal surgery 4907403436 7102 G89.28 Improving slowly in this woman [...] of hemorrhagic cerebrovascular accident with residual deficit 0099545281 30145 I61.1 S/P hemorrhagi c CVA in 01/2024.Con tinue PT/OT as above.Cont inue atorvastat in 20 mg qd.Keep SBP <160Monito r for new neuro sxs. Anxiety 12039633 F41.1 Mood continues to be labile.Con tinue venlafaxin e 75 mg qd, aripiprazo le 10 mg qd and hydroxyzin e 50 mg qid prn.Avoid benzos.Mon itor mood.Consu lt psych prn History of cervical discectomy 3416906989 3313234 Z98.890 As above. Retention of urine 04464 4002 R33.8 Apparently long standing.W as self cathing prior to stroke, now with chronic covarrubias, last changed on 04/04Contin ue covarrubias care and monthly changesWil l get U/A and C&S as above. Gastroesop hageal reflux disease 871918945 K21.9 No current sxs.Contin ue famotidine 40 mg qdMonitor for GI sxs. [id number] ATIF MILLER NP [address] [address] 04/20/2024 11:26:08 04/25/2024 09:54:45 Hypertensive emergency [id number] 58827 I16.1 Resolved inpt. Has had recurrent issues [...] monitor BP and labs closely Essential hypertension 39032693 I10 As above. Leukocytosis 123610411 D 72.828 Trending up since admission, much better today (11.3)U/A and C&S ordered 04/14, finally obtained 04/19, positive UA, C&S prelim. >100K E. Coli.Plan -start Keflex 500 mg qid x 7 days plus probiotic. CBC, BMP tor VSOf note, is completing steroid taper. Headache 95763564 R51.9 With hx of migraines, but recent HAs due to hypertensi ve emergencie s.Monitor for sxs. Chronic pa in following spinal surgery 4942165794 7102 G89.28 Improving slowly in this woman [...] of hemorrhagic cerebrovascular accident with residual deficit 8464423702 04869 I61.1 S/P hemorrhagi c CVA in 01/2024.Con tinue PT/OT as above.Cont inue atorvastat in 20 mg qd.Keep SBP <160Monito r for new neuro sxs. Anxiety 08107597 F41.1 Mood continues to be labile.Con tinue venlafaxin e 75 mg qd, aripiprazo le 10 mg qd and hydroxyzin e 50 mg qid prn.Avoid benzos.Mon itor mood.Consu lt psych prn History of cervical discectomy 5338805035 5271351 Z98.890 As above. Retention of urine 92533 4002 R33.8 Apparently long standing.W as self cathing prior to stroke, now with chronic covarrubias, last changed on 04/04Contin ue covarrubias care and monthly changesTre ating UTI as above. Gastroesop hageal reflux disease 865216421 K21.9 No current sxs.Contin ue famotidine 40 mg qdMonitor for GI sxs. [id number] Kyleigh Fritz, [facility] [address] [place] [address] 04/24/2024 13:06:36 04/27/2024 08:55:22 Hypertensive emergency 4354843156 99940 I16.1 Resolved inpt.noteH as had recurrent issues with labile BP including other episodes of hypertensi ve emergency, but then has had soft BPs and BP meds were held or d/c'd. Remains labile here, but improving in generalcon tHCTZ 25 mg po daily, hold for SBP<110lis inopril 40 mg qd.Avoid BB due to bradycardi a.Continue to monitor BP and labs closely Essential hypertension 53245487 I10 As above.Lorena ins labile here, but improving in generalcon tHCTZ 25 mg po daily, hold for SBP<110lis inopril 40 mg qd.Avoid BB due to bradycardi a.Continue to monitor BP and labs closely Leukocytosis 679183073 D 72.828 Trending down now.see above UTICBC, BMP tor VSOf note, is completing steroid taper. Chronic pa in following spinal surgery 0344040838 7102 G89.28 Improving however, still requiring meds [...] of hemorrhagic cerebrovascular accident with residual deficit 7443384411 06974 I61.1 S/P hemorrhagi c CVA in 01/2024.has had chronic covarrubias since stroke and reports attempted removal several times but is likely chronicCon tinue PT/OT as above.Cont inue atorvastat in 20 mg qd.Keep SBP <160Monito r for new neuro sxs. Anxiety 09416916 F41.1 Mood continues to be labile.Con tinuevenla faxine 75 mg qd, aripiprazo le 10 mg qd and 04/24 hydroxyzin e 50 mg qid and add 50 mg po prn q 24Avoid benzos.Mon itor mood.Consu lt psych prn History of cervical discectomy 9574846748 9111139 Z98.890 As above. Retention of urine 31261 4002 R33.8 Apparently long standing.W as self cathing prior to stroke, now with chronic covarrubias, last changed on 04/04Contin ue covarrubias care and monthly changesTre ating UTI as above. Gastroesop hageal reflux disease 599176802 K21.9 No current sxs.Contin uefamotidi ne 40 mg qdMonitor for GI sxs. Urinary tr act infectious disease 41719082 N39.0 Urine culture results show >100,000 e coli ESBL and gram neg rods pseudomona s.esbl precaution sShe was recently started on keflex 04/21-04/28. Due to resistant esbl and multi-orga nisms will04/24 dc keflex and cont probiotic start levaquin 750 mg po daily x 5 daysaugmen tin 875mg/125 mg po bid x 10 days as these are susceptibl e on culture.mo nitor [id number] ATIF [facility]ILLER [facility] [place] [address] 04/25/2024 10:45:23 04/27/2024 09:53:26 Urinary tract infectious disease 67197125 N39.0 Urine cx. >100,000 e coli ESBL and 50-99K Pseudomona sesbl precaution sKeflex stopped, now on levaquin 750 mg qd x 5d and Augmentin 875 mg bid x 10 d plus probiotic. CBC improvedCl inically stableMain tain fluidsTren d VS, sx. labs Leukocytosis 479728377 D 72.828 Trending down - WNRTreatin g for UTIMonitor VS, trend labsOf note, completed steroid taper. Anxiety 95230785 F41.1 Mood continues to be labile.Con tinue:Venl afaxine 75 mg qdAripipra zole 10 mg qdHydroxyz ine 50 mg qid with recent addition of 50 mg qd prnAvoid benzos.Mon itor mood and behaviorsC onsult psych prn Hypertensi ve emergency 0535554029 75123 I16.1 Hx. of labile BP with significan t highsMeds adjusted.R emains labile here, but improving in generalcon tinue:HCTZ 25 mg qd, hold for SBP<110lis inopril 40 mg qd Avoid BB due to bradycardi a.Continue to monitor BP and labs closely Essential hypertension 26890605 I10 As above.Lorena ins labile here, but improving in generalcon tHCTZ 25 mg po daily, hold for SBP<110lis inopril 40 mg qd. Avoid BB due to bradycardi a.Continue to monitor BP and labs closely Chronic pa in following spinal surgery 8755266631 7102 G89.28 Improving in general, however, still [...] of hemorrhagic cerebrovascular accident with residual deficit 3370304065 37884 I61.1 S/P hemorrhagi c CVA in 01/2024.has had chronic covarrubias since stroke and reports attempted removal several times but is likely chronicCon tinue PT/OT as above.Cont inue atorvastat in 20 mg qd.Keep SBP <160Monito r for new neuro sxs. History of cervical discectomy 8766543035 5854840 Z98.890 As above. Retention of urine 92346 4002 R33.8 Apparently long standing.W as self cathing prior to stroke, now with chronic covarrubias, last changed on 04/04Contin ue covarrubias care and monthly changesTre ating UTI as above. Gastroesop hageal reflux disease 966300584 K21.9 No current sxs.Contin uefamotidi ne 40 mg qdMonitor for GI sxs. [id number] Kyleigh Fritz NP [facility] [address] [address] 04/27/2024 09:12:38 05/03/2024 16:01:01 Chest pain 60417743 R07.9 call 911 and send to ER for acute chest pain [id number] Kyleigh Fritz NP [facility] [address] [address] 04/28/2024 16:02:42 05/03/2024 16:31:55 Urinary tract infectious disease 85962692 N39.0 Urine cx. >100,000 e coli ESBL and 50-99K Pseudomona sesbl precaution sKeflex stopped, now on levaquin 750 mg qd x 5d and Augmentin 875 mg bid x 10 d plus probiotic. CBC improvedCl inically stableMain tain fluidsTren d VS, sx. labs Leukocytosis 848002588 D 72.828 resolvedTr eating for UTIMonitor VS, trend labsOf note, completed steroid taper. Anxiety 52031650 F41.1 Mood continues to be labile./ 1 start buspar 10 mg po bid per psych recContinu e:Venlafax ine 75 mg qdAripipra zole 10 mg qdHydroxyz ine 50 mg qid with recent addition of 50 mg qd prnAvoid benzos.Mon itor mood and behaviorsC onsult psych prn Hypertensi ve emergency 2112007428 57165 I16.1 resolvedbp stable x last three dayscontin ue:HCTZ 25 mg qd, hold for SBP<110lis inopril 40 mg qd Avoid BB due to bradycardi a.Continue to monitor BP and labs closely Essential hypertension 10431588 I10 As above.stab le for last few daysHCTZ 25 mg po daily, hold for SBP<110lis inopril 40 mg qd.Avoid BB due to bradycardi a.Continue to monitor BP and labs closely Chronic pa in following spinal surgery 7599549857 7102 G89.28 Improving in general, however, still [...] of hemorrhagic cerebrovascular accident with residual deficit 4677099233 96268 I61.1 S/P hemorrhagi c CVA in 01/2024.has had chronic covarrubias since stroke and reports attempted removal several times but is likely chronicCon tinuePT/OT as above.ator vastatin 20 mg qd.Keep SBP <160Monito r for new neuro sxs. History of cervical discectomy 6778557880 1908117 Z98.890 As above. Retention of urine 86015 4002 R33.8 Apparently long standing. with recent utiWas self cathing prior to stroke, now with chronic covarrubias, last changed on 04/04Contin ue covarrubias care and monthly changesTre ating UTI as above. [id number] Kyleigh Fritz NP [address] [address] 05/04/2024 13:57:33 05/09/2024 10:01:55 Anxiety 85447591 F41.1 Mood continues to be labile with anxiety. start buspar 10 mg po bid per psych rec05/04 cont buspar as it is helping with anxiety and consider increasing Cont:Venla faxine 75 mg qdAripipra zole 10 mg qdHydroxyz ine 50 mg qid with recent addition of 50 mg qd prnAvoid benzos.Mon itor mood and behaviorsC onsult psych prn Urinary tr act infectious disease 01064670 N39.0 Urine cx. >100,000 e coli ESBL and 50-99K Pseudomona sesbl precaution sKeflex stopped, now on levaquin 750 mg qd x 5d and Augmentin 875 mg bid x 10 d plus probiotic. to finish todayClini pebbles stableMain tain fluidsTren d VS, sx. labs Essential hypertension 02706939 I10 stable and 132/82 todayHCTZ 25 mg po daily, hold for SBP<110lis inopril 40 mg qd.was on norvasc at home but dc'd in hospital for low bpAvoid BB due to bradycardi a.Continue to monitor BP and labs closely and for need to restart meds Chronic pa in following spinal surgery 1835708207 7102 G89.28 Improving in general, however, still [...] of hemorrhagic cerebrovascular accident with residual deficit 3691468316 17926 I61.1 S/P hemorrhagi c CVA in 01/2024.has had chronic covarrubias since stroke and reports attempted removal several times but is likely chronicCon tPT/OT as above.ator vastatin 20 mg qd.Keep SBP <160Monito r for new neuro sxs. History of cervical discectomy 5597905359 6156780 Z98.890 As above. Retention of urine 78031 4002 R33.8 Apparently long standing. with recent utiWas self cathing prior to stroke, now with chronic covarrubias, last changed on 04/04Contin ue covarrubias care and monthly changesTre ating UTI as above almost resolved [id number] Kyleigh Fritz NP [facility] [address] [place] [address] 05/05/2024 11:08:22 05/09/2024 10:26:57 Anxiety 45297000 F41.1 Mood continues to be labile with [...] and behaviorsC onsult psych prn Essential hypertension 05500546 I10 stable with labile bps at timescontH CTZ 25 mg po daily, hold for SBP<110lis inopril 40 mg qd.was on norvasc at home but dc'd in hospital for low bpAvoid BB due to bradycardi a.Continue to monitor BP and labs closely and for need to restart meds Chronic pa in following spinal surgery 9777435802 7102 G89.28 Improving in general, however, still [...] control.Celeste noemí has a fu with neurosurge tarah on jun 21 at 3pm Urinary tr act infectious disease 51600596 N39.0 denies any symptomsUr ine cx. >100,000 e coli ESBL and 50-99K Pseudomona sesbl precaution sKeflex stopped, now on levaquin 750 mg qd x 5d and Augmentin 875 mg bid x 10 d plus probiotic. completed on 05/05Clinic ally stableMain tain fluidsTren d VS, sx. labs History of hemorrhagic cerebrovascular accident with residual deficit 1459701226 79204 I61.1 S/P hemorrhagi c CVA in 01/2024.has had chronic covarrubias since stroke and reports attempted removal several times but is likely chronicCon tPT/OT as above.ator vastatin 20 mg qd.Keep SBP <160Monito r for new neuro sxs. History of cervical discectomy 7135658984 5357616 Z98.890 As above. Retention of urine 43602 4002 R33.8 Apparently long standing. with recent utiWas self cathing prior to stroke, now with chronic covarrubias, last changed on 04/04nsg to change monthlyCon tinue covarrubias care and monthly changesTre ating UTI as above almost resolved Hypertensi ve emergency 0978916093 89961 I16.1 resolved, ? related to not getting dose of lisinopril per dc summarycon tinue:HCTZ 25 mg qd, hold for SBP<110lis inopril 40 mg qdAvoid BB due to bradycardi a.Continue to monitor BP and labs closely Chest pain 63200837 R07. 9 she was sent to ER for chest pain that was ruled out and sent back to facilitymo nitor Gastroesop hageal reflux disease 215828934 K21.9 No current sxs.Contin uefamotidi ne 40 mg qdMonitor for GI sxs. Headache 76510044 R51.9 With hx of migraines, but recent HAs due to hypertensi ve emergencie s.Monitor for sxs. [id number] LILLIAN GOMEZ [address] [address] 05/08/2024 10:49:58 05/18/2024 09:55:18 Chronic pain following spinal surgery 1448200695 7102 G89.28 Improving in general, however, still [...] ry on jun 21 at 3pm Anxiety 82022111 F41.1 Mood continues to be labile with anxiety.co ntinue buspar 10 mg po bid per psych reccont buspar as it is helping with anxiety and consider increasing Cont:Venla faxine 75 mg qdAripipra zole 10 mg qdHydroxyz ine 50 mg qid with recent addition of 50 mg qd prnAvoid benzos. Essential hypertension 34921636 I10 contHCTZ 25 mg po daily, hold for SBP<110lis inopril 40 mg qd.was on norvasc at home but dc'd in hospital for low bpAvoid BB due to bradycardi a.Continue to monitor BP and labs closely and for need to restart meds Urinary tr act infectious disease 00120322 N39.0 denies any symptomsUr ine cx. >100,000 e coli ESBL and 50-99K Pseudomona sesbl precaution scompleted abx on 05/05Clinic ally stableMain tain fluidsTren d VS, sx. labs History of hemorrhagic cerebrovascular accident with residual deficit [id number] I61.1 S/P hemorrhagi c CVA in 01/2024.has had chronic covarrubias since stroke and reports attempted removal several times but is likely chronicCon tatorvasta tin 20 mg qd.Keep SBP <160Monito r for new neuro sxs. History of cervical discectomy [id number] Z98.890 As above. Retention of urine 41001 4002 R33.8 Apparently long standing. with recent utiWas self cathing prior to stroke, now with chronic covarrubias, last changed on 04/04nsg to change monthlyCon tinue covarrubias care and monthly changesTre ating UTI as above almost resolvedfo olow up out patient with urology- patient will make appt. Gastroesop hageal reflux disease [id number] K21.9 No current sxs.Contin uefamotidi ne 40 mg qdMonitor for GI sxs. Health Concerns Section Related Observation LastModified by Organization Detai ls LastModified Time None Recorded Concern Status LastModified by Organization Details LastModified Time None Recorded Advance Directives Directive Y: Payers Insurance Date Sequence Insurance Name Policy Number Policy Alanis Covered Member ID Alanis Member ID Guarantor Name 05/08/2024 1 [place] [facility] Cheryl Garcia [id number] Cheryl Garcia Notes Date Note Type Note [...] since 02/03/24 when she was [place] [facility] [place]. recent spinal surgery [...] my health and want to go to [facility] . 911 called and pt seen to ER promptly. Of note: She is currently on antibiotics for UTI until 05/04, due to final C&S results (>100K E. Coli ESBL and 50-99K Pseudomonas) change required, now on levaquin and Augmentin to cover these orgs. Chronic covarrubias remains in place, qs yellow urine. Kyleigh Fritz NP [address], [address], [place], [address], [facility] [employer] [facility] 04/27/2024 10:02:54 04/28/2024 text/html Cheryl is seen today for an acute visit. Her PMH includes HTN-very labile, HLD, migraines, anxiety/depression, chronic urinary retention with indwelling covarrubias, and s/p CVA right basal ganglia hemorrhagic stroke in 01/2024. She is a 58 yo woman who is here for rehab after a series of hospitalizations and rehab stays since 02/03/24 when she was admitted [place] [facility] [place] acute [place]A and sp spinal surgery fusion. She is seen today by faculty neuropsychologist recommending buspar 10 mg po bid for her anxiety. Due to recurrent anxiety will agree and monitor closely as she seems to be med seeking at times by faculty neuropsychologist.She remains on antibiotics for UTI, due to [...] is okay and falls back to sleep addiction treatment counselor states she had a full conversation with him a few minutes prior and not lethargic and appropriate. No other concerns per nursing. Kyleigh Fritz NP [address], [address], [place], [address], [facility] [employer] [facility] 04/28/2024 16:12:43 05/04/2024 text/html Cheryl is seen today for an acute visit. Her PMH includes HTN-very labile, HLD, migraines, anxiety/depression, chronic urinary retention with indwelling covarrubias, and s/p CVA right basal ganglia hemorrhagic stroke in 01/2024. Cheryl is a 58 yo woman who is here for rehab after a series of hospitalizations and rehab stays since 02/03/24 when she was admitted [place] [facility] [place] acute [place]A and sp spinal surgery fusion here at [facility] for acute rehab. She remains [...] and flights of ideas. Kyleigh Fritz, [employer] [address] [place] [address], [address], [place], [address], [facility] - [employer] [facility] 05/04/2024 14:58:17 05/05/2024 text/html Cheryl is seen [...] female with hx above initially presented to [facility] ER from rehab with co neck pain radiating to her right upper extremity with paresthesias felt per neurosurgery symptoms from postoperative nerve root inflammation discharged to rehab on 04/04 and returned to [facility] [place] on 04/05-04/12 for hypertensive urgency, blurred [...] right internal capsule thalmic hemorrhage Since at [facility]: On 04/27 she was sent to Er for chest pain and ruled out for acute concern and sent back to rehab shortly after. She was seen by faculty neuropsychologist on 04/28 and started on buspar 10 [...] is sitting in the activity room in [facility]. She dose have a mild outburst at another resident to get away as she felt he was too close and then she settles down. Residents were at that time. She denies any other concerns today. Her weight is 191 lbs which is approx to 190 lbs on admission. DOMENICO full code, signed 04/13/24 Kyleigh Fritz, [employer] [address], [address], [place], [address], [facility] - [employer] 05/05/2024 11:33:54 05/08/2024 text/html ROS as noted [...] female with hx above initially presented to [facility] ER from rehab with co neck pain radiating to her right upper extremity with paresthesias felt per neurosurgery symptoms from postoperative nerve root inflammation discharged to rehab on 04/04 and returned to [facility] [place] on 04/05-04/12 for hypertensive urgency, blurred [...] right internal capsule thalmic hemorrhage Since at [facility]: On 04/27 she was sent to Er for chest pain and ruled out for acute concern and sent back to rehab shortly after. She was seen by faculty neuropsychologist on 04/28 and started on buspar 10 [...] referral was also made to 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 Lux has a follow up appointment with her PCP on 05/23/24. LILLIAN GOMEZ [address], [address], [place], [address], [facility] - [facility] 05/08/2024 13:35:11 OBGyn Episode No OBEpisode recorded.
[2025-09-17 23:45] LABS: Hematocrit 41.1 % (37.0-47.0); Hemoglobin 13.5 g/dl (12.0-16.0); Mean Corpuscular Volume 83.7 fL (80.0-98.0); Platelet Count 252 X10*3/uL (160-400); Red Blood Count 4.91 X10*6/uL (4.20-5.50)
--- NOTE | 2025-09-17 23:56 | PC.NURSE ---
Per Dr Cerna, removed covarrubias catheter and attempted to place, unsuccessful on first attempt. 2nd attempt covarrubias placed but no urine output, bladder scan showed no urine in bladder. Manisha atif given and catheter left in place at this time.
[2025-09-18 00:08] LABS: Alanine Aminotransferase 13 U/L (0-31); Albumin Level 3.8 g/dL (3.5-5.0); Alkaline Phosphatase 71 U/L (39-117); Anion Gap 14 (12-20); Aspartate Amino Transferase 14 U/L (5-31); Blood Urea Nitrogen 19 mg/dL (9-16); Calcium 9.0 mg/dL (8.4-10.2); Carbon Dioxide 25 mmol/L (22-29); Chloride 112 mmol/L (96-108); Creatinine Clr Calc Pharmacy 85.3; Estimated Glomerular Filt Rate > 60; Potassium 3.9 mmol/L (3.3-5.1); Sodium 147 mmol/L (135-145); Total Protein 6.1 g/dL (6.5-8.0)
[2025-09-18 02:28] VITALS: BP 151/80; PULSE 60; RESP 16; TEMP 36.4; O2SAT 97
[2025-09-18 02:42] LABS: Appearance Urine Turbid; Glucose Urine UA Negative (Negative); PH 5.0 (5.0-9.0); Specific Gravity - Urine >= 1.030 (1.005-1.025); UMIC TRIGGER UACC YES
[2025-09-18 03:33] LABS: UACC Culture Trigger YES
--- NOTE | 2025-09-18 04:17 | ED.FEMALEGU ---
HPI - Female Genitourinary General Chief complaint: Urogenital-Female Stated complaint: catheter issues, weakness x3 days Time Seen by Provider: 09/17/25 23:42 Source: patient, EMS, RN notes reviewed and old records reviewed Mode of arrival: EMS Limitations: no limitations History of Present Illness ED Provider: Dr. Carmel Cerna HPI Narrative: 59-year-old female with extensive past medical history including CVA, indwelling Quinonez catheter due to chronic urinary retention presenting with potential catheter associated UTI. Admits that her Quinonez bag has been draining cloudy urine with an odd odor. Has been feeling globally weak. Denies abdominal pain. Catheter was last exchanged about 3 weeks ago. No reported fever though she does feel hot and sweaty. No nausea or vomiting. No bowel changes. No known sick contacts or travel. Denies chest pain or difficulty breathing. Related Data Home Medications ?Medication ?Instructions ?Recorded ?Confirmed fluticasone propionate 50 2 spray intranasal DAILY PRN 11/18/21 07/11/25 mcg/actuation nasal Allergy Symptoms spray,suspension acetaminophen 650 mg 650 mg PO Q12H PRN pain 07/20/24 07/11/25 tablet,extended release albuterol sulfate 90 mcg/actuation 2 puff inhalation Q4-6H PRN 07/20/24 07/11/25 aerosol inhaler Shortness Of Breath Or Wheezing baclofen 10 mg tablet 10 mg PO TID PRN muscle spasm 07/20/24 07/11/25 buspirone 10 mg tablet 10 mg BID 07/20/24 07/11/25 cholecalciferol (vitamin D3) 50 50 mcg DAILY 07/20/24 07/11/25 mcg (2,000 unit) capsule hydroxyzine HCl 50 mg tablet 50 mg PO Q6H PRN anxiety 07/20/24 07/11/25 venlafaxine 75 mg capsule,extended 75 mg PO DAILY 07/20/24 07/11/25 release 24 hr aripiprazole 2 mg tablet 2 mg PO DAILY 11/23/24 07/11/25 lisinopril 10 mg tablet 10 mg PO DAILY 11/23/24 07/11/25 cetirizine 10 mg tablet 10 mg PO DAILY 07/11/25 07/11/25 gabapentin 400 mg capsule 400 mg PO TID 07/11/25 07/11/25 naproxen 500 mg tablet 500 mg PO BIDWM pain 07/11/25 07/11/25 Held on 07/13/25. Instructions: Resume on 07/18/25. Previous Rx's ?Medication ?Instructions ?Recorded ipratropium 0.5 mg-albuterol 3 mg 3 ml inhalation RQ4H WHILE AWAKE 11/25/24 (2.5 mg base)/3 mL nebulization PRN Shortness Of Breath/Wheezing soln #90 mL methenamine hippurate 1 gram tablet 1 g PO DAILY 90 days #90 tabs 12/14/24 ascorbic acid (vitamin C) 1,000 mg 1,000 mg PO DAILY 90 days #90 tabs 07/10/25 tablet amlodipine 2.5 mg tablet 2.5 mg PO DAILY #90 tabs 07/13/25 cefuroxime axetil 500 mg tablet 500 mg PO Q12H #11 tabs 07/13/25 methylprednisolone 4 mg tablets in 4 mg PO DAILY #21 ea 08/16/25 a dose pack (Medrol (Shlomo)) cephalexin 500 mg capsule 500 mg PO QID #28 caps 08/20/25 cefuroxime axetil 500 mg tablet 500 mg PO BID 7 days #14 tabs 09/18/25 Allergies Allergy/AdvReac Type Severity Reaction Status Date / Time No Known Allergies Allergy Verified 09/17/25 22:35 Review of Systems Review of Systems: As per HPI, full review of systems performed and negative but for the above mentioned pertinent positives and negatives. 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 Housing: Apartment Do you presently have visiting nurse or other home services: Yes (HOUSEHOLD APPLIANCE INSTALLER lives with pt, VNA 1x/week.) Alcohol intake: current Alcohol intake frequency: does not drink Alcohol type: beer Patient Tobacco Use Status: Never used Tobacco Smoked in Last 30 Days: No Use of substances other than those prescribed or required for medical reasons: Yes Substance Use Type: Marijuana Advance Directives: Yes Advance Directives on File: Yes Advance Directives Date on File: 05/30/25 service: No Current occupational status: retired and disabled 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 SKIN: Normal skin color for ethnicity, warm, dry, no rashes noted. HEENT: Normocephalic, atraumatic, no stridor, posterior oropharynx nonerythematous, EOMI. NECK: Soft, supple, full ROM, midline structures nontender, no step-offs, no deformities, no lymphadenopathy. CHEST: Heart regular rate and rhythm, no murmurs, symmetric chest rise and fall. PULMONARY: Clear to auscultation bilaterally, no labored breathing, no wheezes/rhales/ rhonchi. ABDOMINAL: Soft, nondistended, nontender, positive bowel sounds in all quadrants. : Deferred. MUSCULOSKELETAL: Normal tone, full range of motion, no deformities, no peripheral edema. NEURO: Alert and oriented to person, CN II through XII intact, no focal neurologic deficits. PSYCHIATRIC: Flat affect, fluid speech, appropriate demeanor. Vital Signs: Vital Signs: Last Vital Signs Temp 97.9 F 09/18/25 04:29 Pulse 59 09/18/25 04:29 Resp 16 09/18/25 04:29 BP 131/77 09/18/25 04:29 Pulse Ox 97 09/18/25 04:29 O2 Del Method Room Air 09/18/25 04:29 BMI result Body Mass Index 34.6 Medications Administered Discontinued Medications Generic Name Dose Route Start Last Admin Trade Name Freq PRN Reason Stop Dose Admin Cefuroxime Axetil 500 mg 09/18/25 04:18 09/18/25 04:24 Cefuroxime Axetil 500 Mg Tablet PO 09/18/25 04:19 500 mg ONCE ONE Administration Medical Decision Making Medical Decision Making MDM Narrative: 59-year-old female presenting with potential catheter associated UTI. Admits that her Quinonez bag has been draining cloudy urine with an odd odor. Has been feeling globally weak. Denies abdominal pain. Catheter was last exchanged about 3 weeks ago. Differential diagnosis includes anemia, electrolyte abnormality, UTI, rhabdomyolysis/myositis, neurologic disorders such as Guillain-Rex or myasthenia gravis, CVA, medication side effects, deconditioning, dehydration, among many others. A broad-based workup was initiated based on the patient's history and physical examination. They were watched closely on telemetry monitor with vital signs that were monitored during the duration of their stay. There are no signs of focal neurological deficit or weakness on exam. Urine does appear infected. Looking at previous cultures and sensitivities, she has had pansensitive E coli grow out during her last 2 cultures. We will cover with cefuroxime and discharged home with same. Using shared decision making, plan for discharge home to follow-up with primary care and/or specialist. Patient understands and agrees with plan for discharge. Discharged home in stable condition. Differential Diagnosis Differential Diagnoses: The differential diagnosis associated with the presentation includes (As above) Admission/Observation Consideration of admission/observation: Escalation of care including admission/observation considered Lab Data MDM Lab Attestation statement: I reviewed the patient's lab results. 09/17/25 23:37 09/17/25 23:37 Labs: Lab Results 09/17/25 09/18/25 Range/Units 23:37 02:31 WBC 6.3 (4.8-10.8) X10*3/uL RBC 4.91 (4.20-5.50) X10*6/uL Hgb 13.5 (12.0-16.0) g/dl Hct 41.1 (37.0-47.0) % MCV 83.7 (80.0-98.0) fL MCH 27.5 (27.0-33.0) pg MCHC 32.8 (31.0-35.0) g/dl RDW 12.7 (11.0-16.0) % Plt Count 252 (160-400) X10*3/uL MPV 9.6 (9.4-12.3) fL Immature Gran % (Auto) 0.0 (0.0-0.4) % Neut % (Auto) 37.5 L (45-73) % Lymph % (Auto) 48.7 H (20-40) % [place] % (Auto) 7.4 (2-11) % Eos % (Auto) 5.8 H (0-4) % Baso % (Auto) 0.6 (0-2) % Lymph # (Auto) 3.1 (1.2-4.9) X10*3/uL [place] # (Auto) 0.5 (0.1-1.2) X10*3/uL Eos # (Auto) 0.4 (0.0-0.4) X10*3/uL Baso # (Auto) 0.0 (0.0-0.2) X10*3/uL Abs Immat Gran (auto) 0.00 (0.00-0.03) X10*3/uL Absolute Neuts (auto) 2.4 (2.0-8.3) x10*3/uL Absolute Nucleated RBC 0.000 (0.0-0.012) X10*3/uL Nucleated RBC % (auto) 0.0 (0.0-0.2) /100WBC Sodium 147 H (135-145) mmol/L Potassium 3.9 (3.3-5.1) mmol/L Chloride 112 H (96-108) mmol/L Carbon Dioxide 25 (22-29) mmol/L Anion Gap 14 (12-20) BUN 19 H (9-16) mg/dL Creatinine 0.75 (0.5-1.4) mg/dL Estim Creat Clear Calc 85.3 Estimated GFR > 60 Random Glucose 108 (60-115) mg/dL Calcium 9.0 (8.4-10.2) mg/dL Total Bilirubin 0.2 (0.0-1.0) mg/dL AST 14 (5-31) U/L ALT 13 (0-31) U/L Alkaline Phosphatase 71 (39-117) U/L Total Protein 6.1 L (6.5-8.0) g/dL Albumin 3.8 (3.5-5.0) g/dL Urine Color Dark Yellow Urine Appearance Turbid Urine pH 5.0 (5.0-9.0) Ur Specific [place] >= 1.030 H (1.005-1.025) Urine Protein 100 (2+) H (Neg-Trace) mg/dL Urine Glucose (UA) Negative (Negative) mg/dL Urine Ketones Trace (Negative) mg/dL Urine Blood Large (3+) H (Negative) Urine Nitrite Negative (Negative) Ur Leukocyte Esterase Moderate (2+) H (Negative) Urine RBC 6-10 H (0-2) /HPF Urine WBC >50 H (0-5) /HPF Ur Squamous Epith Cells 3-5 (0-2) /HPF Urine Bacteria 1+ (None Seen) Hyaline Casts 3-5 (0-2) /LPF Independent Historian Clinical information obtained from an independent historian. History obtained from or confirmed by: EMS External Record Review External record reviewed: Inpatient record, Office record and Prior outpatient labs Prescription Management I considered prescription management with: Antibiotic Chronic Conditions Patient?s care impacted by: Other (CVA, hyperthyroidism, chronic urinary retention) Social Determinants Patient?s care significantly limited by Social Determinants of Health including: Other Social Determinant of Health Discharge Plan Discharge Clinical Impression: Catheter-associated urinary tract infection, Dysuria Patient Disposition: Home, Self-Care Instructions: Urinary Tract Infection in Women (DC) Additional Instructions: Take your antibiotic as prescribed until the course is completed. Do not stop this medication early if you start to feel better. Return to the emergency department with any new or worsening symptoms including: Worsening pain, fevers greater than 100? despite antibiotic treatment, vomiting, or any new symptom that concerns you. Call 911 with any medical emergency. Prescriptions: New cefuroxime axetil 500 mg tablet 500 mg PO BID 7 Days Qty: 14 0RF No Action ascorbic acid (vitamin C) 1,000 mg tablet 1,000 mg PO DAILY 90 Days Qty: 90 1RF venlafaxine 75 mg capsule,extended release 24hr 75 mg PO DAILY hydroxyzine HCl 50 mg tablet 50 mg PO Q6H PRN (Reason: anxiety) acetaminophen 650 mg tablet extended release 650 mg PO Q12H PRN (Reason: pain) buspirone 10 mg tablet 10 mg BID cholecalciferol (vitamin D3) 50 mcg (2,000 unit) capsule 50 mcg DAILY baclofen 10 mg tablet 10 mg PO TID PRN (Reason: muscle spasm) albuterol sulfate 90 mcg/actuation Hfa Aerosol Inhaler 2 puff INHALATION Q4-6H PRN (Reason: Shortness Of Breath Or Wheezing) lisinopril 10 mg tablet 10 mg PO DAILY aripiprazole 2 mg tablet 2 mg PO DAILY ipratropium-albuterol 0.5 mg-3 mg(2.5 mg base)/3 mL Solution For Nebulization 3 ml inhalation RQ4H WHILE AWAKE PRN (Reason: Shortness Of Breath/Wheezing) Qty: 90 0RF methylprednisolone [Medrol (Shlomo)] 4 mg tablets,dose pack 4 mg PO DAILY Qty: 21 0RF Rx Instructions: Day 1: 24 mg on day 1 administered as 8 mg before breakfast, 4 mg after lunch, 4 mg after supper, and 8 mg at bedtime or 24 mg as a single dose or divided into 2 or 3 doses upon initiation. Day 2: 20 mg on day 2 administered as 4 mg before breakfast, 4 mg after lunch, 4 mg after supper, and 8 mg at bedtime. Day 3: 16 mg on day 3 administered as 4 mg before breakfast, 4 mg after lunch, 4 mg after supper, and 4 mg at bedtime. Day 4: 12 mg on day 4 administered as 4 mg before breakfast, 4 mg after lunch, and 4 mg at bedtime. Day 5: 8 mg on day 5 administered as 4 mg before breakfast and 4 mg at bedtime. Day 6: 4 mg on day 6 administered as 4 mg before breakfast. cetirizine 10 mg tablet 10 mg PO DAILY gabapentin 400 mg capsule 400 mg PO TID naproxen 500 mg tablet 500 mg PO BIDWM amlodipine 2.5 mg Tablet 2.5 mg PO DAILY Qty: 90 0RF Protocol: Hold for SBP< HOLD for SBP < : 90 cefuroxime axetil 500 mg tablet 500 mg PO Q12H Qty: 11 0RF cephalexin 500 mg capsule 500 mg PO QID Qty: 28 0RF fluticasone propionate 50 mcg/actuation spray,suspension 2 spray intranasal DAILY PRN (Reason: Allergy Symptoms) methenamine hippurate 1 gram tablet 1 g PO DAILY 90 Days Qty: 90 1RF Interventions: ED Discharge Assessment Last Done: 09/18/25 04:29 Discharge Date/Time: 09/18/25 06:42 Print Language: Singaporean
[2025-09-18 04:25] VITALS: BP 131/77; PULSE 59; RESP 16; O2SAT 97
[2025-09-18 04:29] VITALS: BP 131/77; PULSE 59; RESP 16; TEMP 36.6; O2SAT 97
== END 2025-09-18 06:42 | disposition home or self-care (01) ==
PROVIDERS: Emergency Provider Emergency Medicine; PCP Family Medicine
DX: T83.511A Infection and inflammatory reaction due to indwelling urethral catheter, initial encounter (principal); R30.0 Dysuria; I10 Essential (primary) hypertension; E78.5 Hyperlipidemia, unspecified; K21.9 Gastro-esophageal reflux disease without esophagitis
CPT/HCPCS: 36415; 80053; 81001; 85025; 87086; 87088; 87186; 99283; 99284

== ENCOUNTER 2025-09-19 14:47 | Emergency (ER) | payer MEDICAID, SELFPAY ==
--- NOTE | ~2025-09-19 | CT_ITS ---
EXAMINATION: CT HEAD WITHOUT CONTRAST CLINICAL INFORMATION: Known prior CVA and left-sided deficits. Changes suspected; COMPARISON: 07/11/2025 TECHNIQUE: Contiguous axial imaging was performed from the skull base to vertex without intravenous administration of contrast. This CT examination was performed using dose optimization techniques as appropriate, variously including the following: *Automated exposure control *Adjustment of mA and/or kV according to patient size (this includes techniques or standardized protocols for targeted exams where dose is matched to indication/reason for exam; i.e. extremities or head) *Use of iterative reconstruction technique FINDINGS: There is no acute ischemic change. Chronic periventricular white matter hypodensities are again noted. There is no intracranial hemorrhage. There is no mass-effect or midline shift. Basal cisterns and ventricles are within normal limits for age/cerebral volume. Orbits are symmetrical and unremarkable. Paranasal sinuses and mastoid air cells are pneumatized. There are no bony abnormalities. CT/CT head/brain wo IV con IMPRESSION: No acute intracranial abnormality. Periventricular white matter hypodensities are likely related to chronic small vessel disease. Electronically signed by: Derek Casillas MD 09/19/2025 05:21 PM [facility]
[2025-09-19 14:54] VITALS: BP 166/95; PULSE 68; RESP 20; TEMP 36.6; O2SAT 96
[2025-09-19 14:55] VITALS: BP 166/95; BP 204/102; PULSE 63; PULSE 70; RESP 16; TEMP 36.4; O2SAT 95; O2SAT 96; BMI 35.2
[2025-09-19 15:08] LABS: Prothrombin Time Whole Bld POC 12.2 sec (11.1-13.5); ~PT, ~INR - Anti Coag Clinic 1.0 (0.9-1.1)
[2025-09-19 15:10] LABS: Glucose, Whole Blood 144 mg/dL (60-115)
--- NOTE | 2025-09-19 15:10 | PC.NURSE ---
This RN alerted MD Jacob of incoming stroke pts, per EMS reporting LE weakness, L facial droop/ speech changes x 2-3 days, not on thinners, hx of stroke. Provider notified when stroke alert arrived to ED, per pt to go to room first and would be assessed in room, MD did not want pt to go straight to CT/POC INR or Glucose POC done at this time. Primary RN and ED staff aware. Per pt is out of the window for any acute interventions.
--- NOTE | 2025-09-19 15:16 | ECG_ITS ---
Test Reason : WEAKNESS Blood Pressure : */* mmHG Vent. Rate : 59 BPM Atrial Rate : 59 BPM P-R Int : 160 ms QRS Dur : 88 ms QT Int : 436 ms P-R-T Axes : 19 -32 3 degrees QTcB Int : 431 ms Sinus bradycardia Left axis deviation Moderate voltage criteria for LVH, may be normal variant ( R in aVL , Gibson product ) Septal infarct , age undetermined Abnormal ECG When compared with ECG of 16-Aug-2025 08:57, No significant change was found Referred By: Jus Rodriguez Electronically Signed By: BRIELLE LUND MD
--- NOTE | 2025-09-19 15:17 | MHC.STROKE ---
Notified of stroke alert Met with patient in room 11 Pt awake, alert and oriented x 4 Pt with hx of stroke - hx of left sided deficit, slurred speech and facial droop Pt reporting increased weakness over the past 2 days and difficulty eating her lunch. Pt asking for a tuna sandwich. Explained that we would need a swallow screen first. Stroke Education provided to patient.
--- NOTE | 2025-09-19 15:25 | ED.NEUROSD ---
HPI - Neuro Symptoms/Deficit General Chief Complaint: Stroke Stated Complaint: STROKE ALERT,L WEAK/DROOP,SPEECH X2D,THINNER Time Seen by Provider: 09/19/25 15:05 History of Present Illness ED Provider: ARGENIS Colón HPI Narrative: [age] female with known previous CVA and left-sided deficits chronic dysarthria chronic indwelling Quinonez presents with greater than 48 hours of self-reported worsening dysphagia and some dysarthria that is worsened slightly. Generalized weakness denies any new or changed focal motor or sensory symptoms of the body or face. Denies headache. Otherwise feeling well Given the history provided to me by the patient and EMS no indication for acute stroke activation and/or emergent CTA Related Data Home Medications ?Medication ?Instructions ?Recorded ?Confirmed fluticasone propionate 50 2 spray intranasal DAILY PRN 11/18/21 07/11/25 mcg/actuation nasal Allergy Symptoms spray,suspension acetaminophen 650 mg 650 mg PO Q12H PRN pain 07/20/24 07/11/25 tablet,extended release albuterol sulfate 90 mcg/actuation 2 puff inhalation Q4-6H PRN 07/20/24 07/11/25 aerosol inhaler Shortness Of Breath Or Wheezing baclofen 10 mg tablet 10 mg PO TID PRN muscle spasm 07/20/24 07/11/25 buspirone 10 mg tablet 10 mg BID 07/20/24 07/11/25 cholecalciferol (vitamin D3) 50 50 mcg DAILY 07/20/24 07/11/25 mcg (2,000 unit) capsule hydroxyzine HCl 50 mg tablet 50 mg PO Q6H PRN anxiety 07/20/24 07/11/25 venlafaxine 75 mg capsule,extended 75 mg PO DAILY 07/20/24 07/11/25 release 24 hr aripiprazole 2 mg tablet 2 mg PO DAILY 11/23/24 07/11/25 lisinopril 10 mg tablet 10 mg PO DAILY 11/23/24 07/11/25 cetirizine 10 mg tablet 10 mg PO DAILY 07/11/25 07/11/25 gabapentin 400 mg capsule 400 mg PO TID 07/11/25 07/11/25 naproxen 500 mg tablet 500 mg PO BIDWM pain 07/11/25 07/11/25 Held on 07/13/25. Instructions: Resume on 07/18/25. Previous Rx's ?Medication ?Instructions ?Recorded ipratropium 0.5 mg-albuterol 3 mg 3 ml inhalation RQ4H WHILE AWAKE 11/25/24 (2.5 mg base)/3 mL nebulization PRN Shortness Of Breath/Wheezing soln #90 mL methenamine hippurate 1 gram tablet 1 g PO DAILY 90 days #90 tabs 12/14/24 ascorbic acid (vitamin C) 1,000 mg 1,000 mg PO DAILY 90 days #90 tabs 07/10/25 tablet amlodipine 2.5 mg tablet 2.5 mg PO DAILY #90 tabs 07/13/25 cefuroxime axetil 500 mg tablet 500 mg PO Q12H #11 tabs 07/13/25 methylprednisolone 4 mg tablets in 4 mg PO DAILY #21 ea 08/16/25 a dose pack (Medrol (Shlomo)) cephalexin 500 mg capsule 500 mg PO QID #28 caps 08/20/25 cefuroxime axetil 500 mg tablet 500 mg PO BID #14 tabs 09/18/25 Allergies Allergy/AdvReac Type Severity Reaction Status Date / Time No Known Allergies Allergy Verified 09/19/25 15:01 [facility] Past Medical History Medical History Hyperthyroidism Hemiparesis affecting left side as late effect of stroke Hypotonic bladder H/O urinary retention GERD (gastroesophageal reflux disease) Hyperlipidemia HTN (hypertension) PFO (patent foramen ovale) Patellofemoral arthrosis Knee derangement Surgical History History of surgery Social History Social History Household Members: Other Household Members Other:: DENTAL CHAIRSIDE ASSISTANT Housing: Apartment Do you presently have visiting nurse or other home services: Yes (DENTAL CHAIRSIDE ASSISTANT lives with pt, VNA 1x/week.) Alcohol intake: current Alcohol intake frequency: does not drink Alcohol type: beer Patient Tobacco Use Status: Never used Tobacco Substance Use Type: Marijuana Advance Directives Date on File: 05/30/25 service: No Current occupational status: retired and disabled 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 No apparent distress. Alert. HEAD/NECK: Normal to inspection. Neck supple. No cervical lymphadenopathy. EYES: Normal to inspection. Sclera non-icteric. ENMT: External nose normal. RESPIRATORY: Respiratory effort normal. Lungs clear to auscultation bilaterally. CARDIOVASCULAR: Regular rate. Normal rhythm. No murmur. No rubs. GI: Soft, non-tender, non-distended. No rebound or guarding. No masses palpable. No hepatosplenomegaly. SKIN: No jaundice. NEUROLOGICAL: Alert. PSYCHIATRIC: Alert. Appearance appropriate for situation. Attitude cooperative. OTHER: Comprehensive Neuro exam: tongue midline, strong symmetric eye closure, pupils symmetric and reactive to light, intact sensation to the face throughout, intact strong face deviation and shoulder shrug. Dysarthria noted slight asymmetry with droop left side chronic per staff that it is aware of her and she also feels this is unchanged. Sensation intact to light touch throughout 5 out of 5 strength in right upper extremity, and lower extremity. Subtle weakness of the left side upper and lower extremity. Perhaps 4/5 Vital Signs: Vital Signs: Last Vital Signs Temp 96.9 F 09/19/25 18:51 Pulse 63 09/19/25 18:51 Resp 16 09/19/25 18:51 BP 170/92 H 09/19/25 18:51 Pulse Ox 96 09/19/25 18:51 O2 Del Method Room Air 09/19/25 18:51 BMI result Body Mass Index 35.2 Medical Decision Making Medical Decision Making MDM Narrative: Medical Decision Makin-year-old female with CVA with residual deficits. Patient subjectively reporting some dysphagia or change in her speech this is not noted objectively. Patient is comfortable eating and passing dysphagia testing. No focal deficits. On anticoagulation and CT brain does not show acute hemorrhage or other acute findings. Reassured the patient vital signs stable and discharged home Preliminary Favored Differential Diagnosis: [ ] among additional considered etiologies Testing Interpreted Independently: ?See below for details Radiology or Lab testing Results Reviewed: ?See below for details Consults: ?See below for details Independent Historians/External Chart Reviews: ?See below for details Social Determinants of Health Impacting MDM/Planning: ?See below for details Lab Data 09/19/25 15:22 09/19/25 15:22 Labs: Lab Results 09/19/25 09/19/25 09/19/25 Range/Units 15:01 15:02 15:22 WBC 5.7 (4.8-10.8) X10*3/uL RBC 5.11 (4.20-5.50) X10*6/uL Hgb 14.0 (12.0-16.0) g/dl Hct 41.9 (37.0-47.0) % MCV 82.0 (80.0-98.0) fL MCH 27.4 (27.0-33.0) pg MCHC 33.4 (31.0-35.0) g/dl RDW 12.5 (11.0-16.0) % Plt Count 268 (160-400) X10*3/uL MPV 9.8 (9.4-12.3) fL Immature Gran % (Auto) 0.2 (0.0-0.4) % Neut % (Auto) 49.0 (45-73) % Lymph % (Auto) 36.9 (20-40) % Walton % (Auto) 7.4 (2-11) % Eos % (Auto) 5.8 H (0-4) % Baso % (Auto) 0.7 (0-2) % Lymph # (Auto) 2.1 (1.2-4.9) X10*3/uL Walton # (Auto) 0.4 (0.1-1.2) X10*3/uL Eos # (Auto) 0.3 (0.0-0.4) X10*3/uL Baso # (Auto) 0.0 (0.0-0.2) X10*3/uL Abs Immat Gran (auto) 0.01 (0.00-0.03) X10*3/uL Absolute Neuts (auto) 2.8 (2.0-8.3) x10*3/uL Absolute Nucleated RBC 0.000 (0.0-0.012) X10*3/uL Nucleated RBC % (auto) 0.0 (0.0-0.2) /100WBC PT 11.5 (11.2-13.5) SEC Whole Blood PT 12.2 (11.1-13.5) sec INR 0.9 (0.9-1.1) Whole Blood INR 1.0 (0.9-1.1) APTT 29.9 (26.7-34.1) SEC Sodium 144 (135-145) mmol/L Potassium 4.0 (3.3-5.1) mmol/L Chloride 109 H (96-108) mmol/L Carbon Dioxide 28 (22-29) mmol/L Anion Gap 11 L (12-20) BUN 17 H (9-16) mg/dL Creatinine 0.70 (0.5-1.4) mg/dL Estim Creat Clear Calc 92.1 Estimated GFR > 60 POC Glucose 144 H (60-115) mg/dL Random Glucose 106 (60-115) mg/dL Calcium 9.2 (8.4-10.2) mg/dL Magnesium 1.8 (1.6-2.6) mg/dL Total Bilirubin 0.2 (0.0-1.0) mg/dL AST 16 (5-31) U/L ALT 16 (0-31) U/L Alkaline Phosphatase 75 (39-117) U/L Troponin I High Sens 3.7 D (<3.5-17.0) ng/L Total Protein 6.6 (6.5-8.0) g/dL Albumin 4.1 (3.5-5.0) g/dL Discharge Plan Discharge Clinical Impression: Generalized muscle weakness Patient Disposition: Home, Self-Care Instructions: Weakness (ED) Additional Instructions: Today in the emergency department you were evaluated for subjective change in your voice and generalized weakness. We evaluated you with blood work plain CT of the head and we did not find any acute neurologic abnormalities or other medical emergencies. Call your primary doctor for follow up return if you have any worse symptoms or change in your symptoms abruptly Prescriptions: No Action ascorbic acid (vitamin C) 1,000 mg tablet 1,000 mg PO DAILY 90 Days Qty: 90 1RF venlafaxine 75 mg capsule,extended release 24hr 75 mg PO DAILY hydroxyzine HCl 50 mg tablet 50 mg PO Q6H PRN (Reason: anxiety) acetaminophen 650 mg tablet extended release 650 mg PO Q12H PRN (Reason: pain) buspirone 10 mg tablet 10 mg BID cholecalciferol (vitamin D3) 50 mcg (2,000 unit) capsule 50 mcg DAILY baclofen 10 mg tablet 10 mg PO TID PRN (Reason: muscle spasm) albuterol sulfate 90 mcg/actuation Hfa Aerosol Inhaler 2 puff INHALATION Q4-6H PRN (Reason: Shortness Of Breath Or Wheezing) lisinopril 10 mg tablet 10 mg PO DAILY aripiprazole 2 mg tablet 2 mg PO DAILY ipratropium-albuterol 0.5 mg-3 mg(2.5 mg base)/3 mL Solution For Nebulization 3 ml inhalation RQ4H WHILE AWAKE PRN (Reason: Shortness Of Breath/Wheezing) Qty: 90 0RF methylprednisolone [Medrol (Shlomo)] 4 mg tablets,dose pack 4 mg PO DAILY Qty: 21 0RF Rx Instructions: Day 1: 24 mg on day 1 administered as 8 mg before breakfast, 4 mg after lunch, 4 mg after supper, and 8 mg at bedtime or 24 mg as a single dose or divided into 2 or 3 doses upon initiation. Day 2: 20 mg on day 2 administered as 4 mg before breakfast, 4 mg after lunch, 4 mg after supper, and 8 mg at bedtime. Day 3: 16 mg on day 3 administered as 4 mg before breakfast, 4 mg after lunch, 4 mg after supper, and 4 mg at bedtime. Day 4: 12 mg on day 4 administered as 4 mg before breakfast, 4 mg after lunch, and 4 mg at bedtime. Day 5: 8 mg on day 5 administered as 4 mg before breakfast and 4 mg at bedtime. Day 6: 4 mg on day 6 administered as 4 mg before breakfast. cetirizine 10 mg tablet 10 mg PO DAILY gabapentin 400 mg capsule 400 mg PO TID naproxen 500 mg tablet 500 mg PO BIDWM amlodipine 2.5 mg Tablet 2.5 mg PO DAILY Qty: 90 0RF Protocol: Hold for SBP< HOLD for SBP < : 90 cefuroxime axetil 500 mg tablet 500 mg PO Q12H Qty: 11 0RF cephalexin 500 mg capsule 500 mg PO QID Qty: 28 0RF cefuroxime axetil 500 mg tablet 500 mg PO BID Qty: 14 0RF fluticasone propionate 50 mcg/actuation spray,suspension 2 spray intranasal DAILY PRN (Reason: Allergy Symptoms) methenamine hippurate 1 gram tablet 1 g PO DAILY 90 Days Qty: 90 1RF Interventions: ED Discharge Assessment Last Done: 09/19/25 18:51 Discharge Date/Time: 09/19/25 19:14 Print Language: Serbian
[2025-09-19 15:33] LABS: MANUAL DIFF FLAG NO
[2025-09-19 15:35] LABS: Hematocrit 41.9 % (37.0-47.0); Hemoglobin 14.0 g/dl (12.0-16.0); Imm Gran Abs Auto 0.01 X10*3/uL (0.00-0.03); Imm Gran Pct Auto 0.2 % (0.0-0.4); Lymphocytes Absolute Auto 2.1 X10*3/uL (1.2-4.9); Mean Corpuscular HGB Conc 33.4 g/dl (31.0-35.0); Mean Corpuscular Hemoglobin 27.4 pg (27.0-33.0); Mean Corpuscular Volume 82.0 fL (80.0-98.0); NRBC Abs Auto 0.000 X10*3/uL (0.0-0.012); NRBC Pct Auto 0.0 /100WBC (0.0-0.2); Platelet Count 268 X10*3/uL (160-400); Red Blood Count 5.11 X10*6/uL (4.20-5.50); White Blood Count 5.7 X10*3/uL (4.8-10.8)
[2025-09-19 15:40] LABS: INTERNATIONAL NORM RATIO 0.9 (0.9-1.1); Prothrombin Time 11.5 SEC (11.2-13.5)
[2025-09-19 15:42] LABS: Partial Thromboplastin Time 29.9 SEC (26.7-34.1)
[2025-09-19 15:57] LABS: Alanine Aminotransferase 16 U/L (0-31); Albumin Level 4.1 g/dL (3.5-5.0); Alkaline Phosphatase 75 U/L (39-117); Anion Gap 11 (12-20); Aspartate Amino Transferase 16 U/L (5-31); Blood Urea Nitrogen 17 mg/dL (9-16); Calcium 9.2 mg/dL (8.4-10.2); Carbon Dioxide 28 mmol/L (22-29); Chloride 109 mmol/L (96-108); Creatinine Clr Calc Pharmacy 92.1; Estimated Glomerular Filt Rate > 60; Magnesium 1.8 mg/dL (1.6-2.6); Potassium 4.0 mmol/L (3.3-5.1); Sodium 144 mmol/L (135-145); Total Protein 6.6 g/dL (6.5-8.0); Troponin-I High Sensitivity 3.7 ng/L (<3.5-17.0)
[2025-09-19 16:12] VITALS: BP 164/99; PULSE 54; RESP 14; O2SAT 96
[2025-09-19 18:14] VITALS: BP 182/99; PULSE 63; RESP 18; O2SAT 96
--- OUTSIDE RECORDS SUMMARY | 2025-09-19 18:38 | XMS_ITS | Encounter Summary ---
Author Organization [employer] Address [address] [place] [address] [address] [place] [address] Care Team Providers Care Brick Unloader Tender Name Role Phone Aliza Paul DO Primary Care Provider Lesley Ingram Unavailable Rosi Castro RN Unavailable Unavailable Rosi Castro RN Unavailable Unavailable Lesley Ingram Unavailable Rocio Ingram RN Unavailable [phone] Kathrine Blank Unavailable Encounter Details Date Type Department Care Team (Late st Contact Info) Description 11/04/2022 Telephone [facility] MEDICINE [address] [place], [place] [phone] Aliza Paul DO [address] [place], [place] [phone] Social History Tobacco Use Types Packs/Day Years [...] on filedocumented in this encounter Care Teams Brick Unloader Tender Relationship Specialty Start Date End Date Aliza Paul DO [address] [place] [address] PCP - General Family Medicine 02/23/12 Lesley Ingram Community Health Worker 05/17/24 Rosi Castro, RICHARDSON Window Glass Cutter Off 05/17/24 03/05/25 Rosi Castro RN Registered Nurse Family Medicine 04/06/25 04/10/25 Lesley Ingram 04/06/25 04/10/25 Rocio Ingram RN [address] [place] [address] Registered Nurse Family Medicine 04/19/25 Kathrine Blank 04/19/25 [facility] 07/27/24 05/28/25 [facility] 05/29/25 documented as of this encounter
--- OUTSIDE RECORDS SUMMARY | 2025-09-19 18:38 | XMS_ITS | Encounter Summary ---
Author Organization [employer] Address [address] [place] [address] 7 [place] [address] Care Team Providers Care Meat Processing Center Manager Name Role Phone Aliza Paul DO Primary Care Provider [phone] Lesley Ingram Unavailable Rosi Castro RN Unavailable Unavailable Rosi Castro RN Unavailable Unavailable Lesley Ingram Unavailable Rocio Ingram RN Unavailable [phone] Kathrine Blank Unavailable Encounter Details Date Type Department Care Team (Late st Contact Info) Description 05/18/2024 Telephone [facility] MEDICINE [address] [place], [place] [phone] Aliza Paul DO 230 [place], [place] [phone] Social History Tobacco Use Types Packs/Day Years [...] as of this encounter Care Teams Meat Processing Center Manager Relationship Specialty Start Date End Date Aliza Paul DO [address] [place] [address] PCP - General Family Medicine 02/23/12 Lesley Ingram Community Health Worker 05/17/24 Rosi Castro RN Rn Acute 05/17/24 03/05/25 Rosi Castro RN Registered Nurse Family Medicine 04/06/25 04/10/25 Lesley Ingram 04/06/25 04/10/25 Rocio Ingram RN [address] [place] [address] Registered Nurse Family Medicine 04/19/25 Kathrine Blank 04/19/25 [facility] 07/27/24 05/28/25 [facility] 05/29/25 documented as of this encounter
--- OUTSIDE RECORDS SUMMARY | 2025-09-19 18:38 | XMS_ITS | Encounter Summary ---
Author Organization [employer] Address [address] [place] [address] 7 [place] [address] Care Team Providers Care Business Unit Director Name Role Phone Aliza Paul DO Primary Care Provider [phone] Lesley Ingram Unavailable Rosi Castro RN Unavailable Unavailable Rosi Castro RN Unavailable Unavailable Lesley Ingram Unavailable Rocio Ingram RN Unavailable [phone] Kathrine Blank Unavailable Reason for Visit * Reason Onset Date Comments PT-1 10/19/2024 Encounter Details Date Type Department Care Team (Late st Contact Info) Description 10/19/2024 Telephone [facility] MEDICINE [address] [place], [place] [phone] Aliza Paul DO [address] [place], [place] [phone] PT-1 Social History Tobacco Use Types Packs/Day [...] Y/N: Yes Provider name or facility name: [facility] Facility Address: [address] [place] [address] Escort needed: Y/N: Yes Do you have a wheelchair: Y/N: Yes If yes- Manual or electric: Sathish Visits: Once a month - Patient calling requesting PT1 Home Address verified: Y/N: Yes Provider name or facility name: [facility] Facility Address: [address] [place] [address] Escort needed: Y/N: Yes Do you have [...] documented as of this encounter Care Teams Business Unit Director Relationship Specialty Start Date End Date Aliza Paul DO [address] [place] [address] PCP - General Family Medicine 02/23/12 Lesley Ingram Community Health Worker 05/17/24 Rosi Castro, RICHARDSON Continuous Yarn Dyeing Machine Operator 05/17/24 03/05/25 Rosi Castro RN Registered Nurse Family Medicine 04/06/25 04/10/25 Lesley Ingram 04/06/25 04/10/25 Rocio Ingram RN [address] [place] [id number] Registered Nurse Family Medicine 04/19/25 Kathrine Blank 04/19/25 [facility] 07/27/24 05/28/25 [facility] 05/29/25 documented as of this encounter
--- OUTSIDE RECORDS SUMMARY | 2025-09-19 18:38 | XMS_ITS | Encounter Summary ---
Author Organization [employer] Address [address] [place] [address] 7t [place] [address] Care Team Providers Care Dermatology Nurse Name Role Phone Aliza Paul DO Primary Care Provider Lesley Ingram Unavailable Rosi Castro RN Unavailable Unavailable Rosi Castro RN Unavailable Unavailable Lesley Ingram Unavailable Rocio Ingram RN Unavailable [phone] Kathrine Blank Unavailable Encounter Details Date Type Department Care Team (Late st Contact Info) Description 11/04/2022 Orders Only [facility] [address] [place], [place] [phone] Aliza Paul DO [address] [place] [address] Social History Tobacco Use Types Packs/Day Years [...] on filedocumented in this encounter Care Teams Dermatology Nurse Relationship Specialty Start Date End Date Aliza Paul DO [address] [place] [address] PCP - General Family Medicine 02/23/12 Lesley Ingram Community Health Worker 05/17/24 Rosi Castro, RICHARDSON Canoe Builder 05/17/24 03/05/25 Rosi Castro RN Registered Nurse Family Medicine 04/06/25 04/10/25 Lesley Ingram 04/06/25 04/10/25 Rocio Ingram RN [address] [place] [address] Registered Nurse Family Medicine 04/19/25 Kathrine Blank 04/19/25 [facility] 07/27/24 05/28/25 [facility] 05/29/25 documented as of this encounter
--- OUTSIDE RECORDS SUMMARY | 2025-09-19 18:38 | XMS_ITS | Encounter Summary ---
Author Organization [employer] Address [address] [place] [address] 7 [place] [address] Care Team Providers Care Curtain Stretcher Assembler Name Role Phone Aliza Paul DO Primary Care Provider Lesley Ingram Unavailable Rosi Castro RN Unavailable Unavailable Rosi Castro RN Unavailable Unavailable Lesley Ingram Unavailable Rocio Ingram RN Unavailable [phone] Kathrine Blank Unavailable Reason for Visit * Reason Onset Date Comments FYI 05/15/2024 Encounter Details Date Type Department Care Team (Late st Contact Info) Description 05/15/2024 Telephone [facility] MEDICINE [address] [place], [place] [phone] Aliza Paul DO [address] [place], [place] [phone] FY Social History Tobacco Use Types Packs/Day Years [...] be receiving home health care service with [facility] [place] and referral was also made to [facility] for additional homemaking, personal care and COMPRESSOR TECHNICIAN services. Pt. Declined services. FYI for HDF 05/23/24 * Telephone Encounter - Timoteo Blank - 05/15/2024 1:04 PM EDT Tc from Karlie with [facility] calling to inform they were unable to admit pt into services, Karlie stated they managed to get in contact with pt but pt gave another excuse on why she wasn't able to accept services. If any questions you can contact Karlie at [phone]. documented in this encounter Plan of Treatment Not on file documented as of this encounter Visit Diagnoses Not on filedocumented in this encounter Additional Health Concerns Assessment Noted Time PHQ-9 Depression Total Score: 4 03/09/20 24 9:14 AM EDT documented as of this encounter Care Teams Curtain Stretcher Assembler Relationship Specialty Start Date End Date Aliza Paul DO [address] [place] [address] PCP - General Family Medicine 02/23/12 Lesley Ingram Community Health Worker 05/17/24 Rosi Castro, RICHARDSON It Teacher 05/17/24 03/05/25 Rosi Castro RN Registered Nurse Family Medicine 04/06/25 04/10/25 Lesley Ingram 04/06/25 04/10/25 Rocio Ingram RN [address] [place] [address] Registered Nurse Family Medicine 04/19/25 Kathrine Blank 04/19/25 [facility] 07/27/24 05/28/25 [facility] 05/29/25 documented as of this encounter
--- OUTSIDE RECORDS SUMMARY | 2025-09-19 18:38 | XMS_ITS | Encounter Summary ---
Author Organization [employer] Address [address] [place] [address] 7t [place] [address] Care Team Providers Care Deboning Team Leader Name Role Phone Aliza Paul DO Primary Care Provider [phone] Lesley Ingram Unavailable Rosi Castro RN Unavailable Unavailable Rosi Castro RN Unavailable Unavailable Lesley Ingram Unavailable Rocio Ingram RN Unavailable [phone] Kathrine Blank Unavailable Reason for Visit * Reason Comments Med Refill Encounter Details Date Type Department Care Team (Late st Contact Info) Description 10/29/2023 Refill [facility] MEDICINE [address] [place], [place] [phone] Aliza Paul DO 230 [place], [place] [phone] Social History Tobacco Use Types Packs/Day Years [...] on filedocumented in this encounter Care Teams Deboning Team Leader Relationship Specialty Start Date End Date Aliza Paul DO [address] [place] [address] PCP - General Family Medicine 02/23/12 Lesley Ingram Community Health Worker 05/17/24 Rosi Castro RN Entry Level Installation Technician 05/17/24 03/05/25 Rosi Castro RN Registered Nurse Family Medicine 04/06/25 04/10/25 Lesley Ingram 04/06/25 04/10/25 Rocio Ingram RN [address] [place] [address] Registered Nurse Family Medicine 04/19/25 Kathrine Blank 04/19/25 [facility] 07/27/24 05/28/25 [facility] 05/29/25 documented as of this encounter
--- OUTSIDE RECORDS SUMMARY | 2025-09-19 18:38 | XMS_ITS | Encounter Summary ---
Author Organization [employer] Address [address] [place] [address] [address]t [place] [address] Care Team Providers Care Marine Gear Keeper Name Role Phone Aliza Paul DO Primary Care Provider Lesley Ingram Unavailable Rosi Castro RN Unavailable Unavailable Rosi Castro RN Unavailable Unavailable Lesley Ingram Unavailable Rocio Ingram RN Unavailable [phone] Kathrine Blank Unavailable Reason for Visit * Reason Comments Med Refill Encounter Details Date Type Department Care Team (Late st Contact Info) Description 06/06/2024 Refill [facility] MEDICINE [address] [place], [place] [phone] Aliza Paul DO [address] [place], [place] [phone] Chronic nonintractable headache, unspecified headache type Social [...] documented as of this encounter Care Teams Marine Gear Keeper Relationship Specialty Start Date End Date Aliza Paul DO [address] [place] [address] PCP - General Family Medicine 02/23/12 Lesley Ingram Community Health Worker 05/17/24 Rosi Castro RN Dumping Machine Operator 05/17/24 03/05/25 Rosi Castro RN Registered Nurse Family Medicine 04/06/25 04/10/25 Lesley Ingram 04/06/25 04/10/25 Rocio Ingram RN [address] [place] [address] Registered Nurse Family Medicine 04/19/25 Kathrine Blank 04/19/25 [facility] 07/27/24 05/28/25 [facility] 05/29/25 documented as of this encounter
--- OUTSIDE RECORDS SUMMARY | 2025-09-19 18:38 | XMS_ITS | Encounter Summary ---
Author Organization [employer] Address [address] [place] [address] [address] [place] [address] Care Team Providers Care Family Court Justice Name Role Phone Aliza Paul DO Primary Care Provider + [phone] Lesley Ingram Unavailable Rocio Ingram RN Unavailable [phone] Kathrine Blank Unavailable Encounter Details Date Type Department Care Team (Late st Contact Info) Description 09/19/2025 Orders Only [facility] External Provider, [facility] Social History Tobacco Use Types Packs/Day Years [...] Name Priority Date/Time Associated Diagnosis Comments CT HEAD WO CONTRAST Routine 09/19/2025 4 :21 PM EST documented in this encounter Results * CT Head w/o Contrast (09/19/2025 4:21 PM EST) Anatomical Region Laterality Modality Head, Neck Computed Tomogra phy 09/19/2025 4:21 PM EST Narrative 09/19/2025 5:24 PM EST [place] [address] CT Scan Report Signed Patient: Cheryl Garcia MR#: [id number] 0 : 1965 Acct:[id number] Age/Sex: 59 / F ADM Date: 09/19/25 Loc: HO.ED Attending Dr: Ordering Physician: Jus Rodriguez MD Date of Service: 09/19/25 Procedure(s): CT head/brain wo IV con Accession Number(s): [id number] cc: Jus Rodriguez MD; Aliza Paul DO Report Number: [id number]: Total DLP = 580.00 mGy-cm Reason for Exam: Subacute worsened dysarthria in the setting of kno EXAMINATION: CT HEAD WITHOUT CONTRAST CLINICAL INFORMATION: Known prior CVA and left-sided deficits. Changes suspected; COMPARISON: 07/11/2025 TECHNIQUE: Contiguous axial imaging was performed from [...] iterative reconstruction technique FINDINGS: There is no acute ischemic change. Chronic periventricular white matter hypodensities are again noted. There is no intracranial hemorrhage. There is no mass-effect or midline shift. Basal cisterns and ventricles are within normal limits for age/cerebral volume. Orbits are symmetrical and unremarkable. Paranasal sinuses and mastoid air cells are pneumatized. There are no bony abnormalities. CT/CT head/brain wo IV con IMPRESSION: No acute intracranial abnormality. Periventricular white matter hypodensities are likely related to chronic small vessel disease. Electronically signed by: Derek Casillas MD 09/19/2025 05:21 PM [facility] Dictated By: Derek Casillas MD Signed By: <Electronically signed by Derek Casillas MD in OV> 09/19/25 1721 DD/ 1621 TD/TT: 09/19/25 1628 Cook Dinner: Procedure Note Donotuseinterpreter, Image - 09/19/[address] [place] [address] [address] Scan Report Signed Patient: Cheryl Garcia AMR#: [id number] 0 : 1965Acct:[id number] Age/Sex: 59 / FADM Date: 09/19/25 Loc: HO.ED Attending Dr: Ordering Physician: Jus Rodriguez MD Date of Service: 09/19/25 Procedure(s): CT head/brain wo IV con Accession Number(s): [id number] cc: Jus Rodriguez MD; Aliza Paul DO Report Number: [id number]: Total DLP = 580.00 mGy-cm Reason for Exam: Subacute worsened dysarthria in the setting of kno EXAMINATION: CT HEAD WITHOUT CONTRAST CLINICAL INFORMATION: Known prior CVA and left-sided deficits. Changes suspected; COMPARISON: 07/11/2025 TECHNIQUE: Contiguous axial imaging was performed from [...] iterative reconstruction technique FINDINGS: There is no acute ischemic change. Chronic periventricular white matter hypodensities are again noted. There is no intracranial hemorrhage. There is no mass-effect or midline shift. Basal cisterns and ventricles are within normal limits for age/cerebral volume. Orbits are symmetrical and unremarkable. Paranasal sinuses and mastoid air cells are pneumatized. There are no bony abnormalities. CT/CT head/brain wo IV con IMPRESSION: No acute intracranial abnormality. Periventricular white matter hypodensities are likely related to chronic small vessel disease. Electronically signed by: Derek Casillas MD 09/19/2025 05:21 PM [facility] Dictated By: Derek Casillas MD Signed By: <Electronically signed by Derek Casillas MD in OV> 09/19/25 1721 DD/ 1621 TD/TT: 09/19/25 1628 Cook Dinner: [facility] External Provider IMG CT PROCEDURES Final Result documented in this encounter Visit Diagnoses Not on filedocumented in this encounter Additional Health Concerns Assessment Noted Time PHQ-9 Depression Total Score: 15 024 9:20 AM EDT documented as of this encounter Care Teams Family Court Justice Relationship Specialty Start Date End Date Aliza Paul DO [address] [place] [address] PCP - General Family Medicine 02/23/12 Lesley Ingram Community Health Worker 05/17/24 Rocio Ingram, RN [address] [place] [id number] Registered Nurse Family Medicine 04/19/25 Kathrine Blank 04/19/25 [facility] 05/29/25 documented as of this encounter
--- OUTSIDE RECORDS SUMMARY | 2025-09-19 18:38 | XMS_ITS | Clinical Summary ---
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 endocrinology. We'll get OV notes sp hospital [...] no appointment has been made. Currently under /[facility] care to assist with SDOH needs. [...] services received in the past with [facility], currently she's not satisfied with [facility]. Pt opted for same-day appointments with [facility] [...] , Patient to reach out to [facility] team as needed, and Patient to reach out to [facility] as needed Pt prefers to be self-referred for OP individual therapy and psychiatry to the [facility] programs. Pt was offered external referral; clinician informed about wait times and options to receive MH services through [facility] intake. Assessment & Plan (03/09/2024 [...] services received in the past with [facility], currently she's not satisfied with [facility]. Pt opted for same-day appointments with [facility] [...] , Patient to reach out to [facility] team as needed, and Patient to reach out to [facility] as needed Pt prefers to be self-referred for OP individual therapy and psychiatry to the [facility] programs. Pt was offered external referral; clinician informed about wait times and options to receive MH services through [facility] intake. Assessment & Plan (10/26/2023 10:38 AM EST): PLAN: Continue with current services (defined as services in the past 12 months) , Behavioral Health Integration Plan Patient Self Plan Patient to reach out to [facility] team as needed, Patient to engage in OP therapy , and Patient to follow-up with external team, clinician to reach our to current therapist for Cheryl at [facility] to support process of reconnecting with [...] stroke in 05/2024). Pt was self-referred to [facility] programs, but reports no appointment has been made. Currently under /[facility] care to assist with SDOH needs. [...] services received in the past with [facility], currently she's not satisfied with [facility]. Pt opted for same-day appointments with [facility] (information given. Cheryl screened positive [...] intervention , Patient [facility] team as needed, and Patient to reach out to [facility] as needed Pt prefers to be self-referred for OP individual therapy and psychiatry to the [facility] programs. Pt was offered external referral; clinician informed about wait times and options to receive MH services through [facility] intake. Resolved Problems Problem Noted [...] 10:16 AM EST): Wants to fu with [facility] Dr Jj instead of [facility], referral sent. [...] Encounters Date Type Department Care Team Description 09/19/2025 Orders Only [facility] External Provider, [facility] 09/19/[address] [address] Aliza Paul DO ER Follow-up 09/18/2025 Orders Only GENERIC EXTERNAL DATA DEPARTMENT Provider, Generic External Data 09/17/2025 Orders Only GENERIC EXTERNAL DATA DEPARTMENT Provider, Generic External Data 09/06/[address] [facility] [address] [place] [address] SylvainBarrett maradiagan, OD Presbyopia (Primary Dx) 09/04/2025 1:45 PM EDT Office Visit [facility] [address] [place] [address] SylvainBarrettn, OD Hyperopia of both eyes with astigmatism and presbyopia (Primary Dx) 08/25/[address] [facility] MED[facility] [address] [place] [phone] Aliza Paul DO Polyarthralgia 08/24/[address] [facility] PED[facility] [address] [place] [address] Aliza Paul DO Chart Prep 08/23/2025 Patient Outreach [address] [address] Aliza Paul DO 08/21/[address] [address] Aliza Paul DO Transition Of Care (Tcm) 08/20/2025 Orders Only GENERIC EXTERNAL DATA DEPARTMENT Provider, Generic External Data 08/20/[address] [facility] [address] [place] [phone] Aliza Paul DO 08/17/[address] [address] Aliza Paul DO chartprep 08/13/2025 Patient Outreach [address] [address] Aliza Paul DO Pre-visit Planning (Pre-visit planning - LVM ) 08/07/[address] [place] [address] Aliza Pual DO Chart Prep 08/05/2025 Refill [facility] [address] [facility] [place] [address] Aliza Paul DO Closed supracondylar fracture of right humerus with routine healing 08/03/2025 Refill [facility] [address] [facility] [place] [address] Aliza Paul DO Muscle spasm 07/30/2025 Refill [facility] [address] [facility] [place] [address] Aliza Paul DO Closed supracondylar fracture of right humerus with routine healing 07/30/2025 Patient Outreach [facility] [address] [place] [address] Aliza Paul DO Care Management (C3CM- initial assessment/enrollment. Not available.) 07/20/[address] [address] Aliza Paul DO Appointment Request 07/17/[address] [address] Aliza Paul DO PT1-Modified 07/16/2025 Patient Outreach [address] [address] Aliza Paul DO Transition Of Care (Tcm) (HDF- Scheduled ) 07/16/2025 Patient Outreach [address] [address] Aliza Paul DO 07/14/2025 Refill [facility] PED[facility] [address] [place] [address] Aliza Paul DO 07/12/2025 Patient Outreach [facility] [address] [place] [address] Aliza Paul DO 07/10/2025 Patient Outreach [address] [address] Aliza Paul DO Care Coordination (CM/CHW outreach) 07/07/[address] [facility] [address] [place] [address] Aliza Paul DO 07/03/[address] [facility] [address] [place] [address] Aliza Paul DO Polyarthralgia; Closed supracondylar fracture of right humerus with routine healing 06/29/[address] [facility] [address] [place] [address] Aliza Paul DO Anxiety disorder, unspecified type 06/21/[address] [facility] [address] [place], [place] [phone] Aliza Paul DO ER Follow-up 06/19/[address] [facility] [address] [place], [place] [phone] Aliza Paul DO from Last 3 Months [...] 2005 Dental X-Ray: Full Mouth 12/02/2013 12/01/2010 RSV Patients and Patients Aged 60 years or older (1 - Risk 50-74 years 1-dose series) 2015 Zoster Vaccines (1 of 2) 2015 Cervical [...] 09/06/2022, 09/06/2022, 12/16/2021 HIV Screening Completed 01/28/2022 Hepatitis C Screening [...] CONTRAST Routine 09/19/2025 4 :21 PM EST URINALYSIS, COMPLETE, WITH REFLEX TO CULTURE Routine 09/18/2025 2:31 AM EST URINALYSIS WITH REFLEX MICROSCOPIC Routine 09/18/2025 2:31 AM EST CULTURE, URINE, ROUTINE Routine 09/18/2025 2:31 AM EST COMPREHENSIVE METABOLIC PANEL Routine 09/17/2025 11:37 PM EST CBC WITH AUTO DIFFERENTIAL Routine 09/17/2025 11:37 PM EST URINALYSIS, COMPLETE, WITH REFLEX TO CULTURE Routine 08/20/2025 8:24 PM EDT CBC WITH AUTO DIFFERENTIAL Routine 08/20/2025 7:42 PM EDT BASIC METABOLIC PANEL Routine 08/20/2025 7:42 PM EDT CULTURE, URINE, ROUTINE Routine 08/20/2025 12:00 AM EDT LIPID PANEL, STANDARD Routine [...] Recently Relevant to Health Maintenance Results * CT Head w/o Contrast (09/19/2025 4:21 PM EST) Anatomical Region Laterality Modality Head, Neck Computed Tomogra phy 09/19/2025 4:21 PM EST Narrative 09/19/2025 5:24 PM EST [address] [address] [address] Scan Report Signed Patient: Cheryl Garcia MR#: [id number] 0 : 1965 Acct:[id number] Age/Sex: 59 / F ADM Date: 09/19/25 Loc: HO.ED Attending Dr: Ordering Physician: Jus Rodriguez MD Date of Service: 09/19/25 Procedure(s): CT head/brain wo IV con Accession Number(s): [id number] cc: Jus Rodriguez MD; Aliza Paul DO Report Number: [id number]: Total DLP = 580.00 mGy-cm Reason for [...] by: Derek Casillas MD 09/19/2025 05:21 PM EST Dictated By: Derek Casillas MD Signed By: <Electronically signed by Dreek Casillas MD in OV> 09/19/25 1721 DD/ 1621 TD/TT: 09/19/25 1628 Stress Test Technician: Procedure Note Donotuseinterpreter, Image - 09/19/[address] [place] [address] [address] Scan Report Signed Patient: Cheryl Garcia AMR#: [id number] 0 : 1965Acct:[id number] Age/Sex: 59 / FADM Date: 09/19/25 Loc: HO.ED Attending Dr: Ordering Physician: Jus Rodriguez MD Date of Service: 09/19/25 Procedure(s): CT head/brain wo IV con Accession Number(s): [id number] cc: Jus Rodriguez MD; Aliza Paul DO Report Number: [id number]: Total DLP = 580.00 mGy-cm Reason for [...] by: Derek Casillas MD 09/19/2025 05:21 PM EST RP Dictated By: Derek Casillas MD Signed By: <Electronically signed by Derek Casillas MD in OV> 09/19/25 1721 DD/ 1621 TD/TT: 09/19/25 1628 Stress Test Technician: [facility] External Provider IMG CT PROCEDURES Final Result * (ABNORMAL) Urinalysis, Complete, with Reflex to Culture (09/18/2025 2:31 AM EST) Only the most recent of2 resultswithin the time period is included. Color Urine Dark Yellow [facility] Appearance Urine Turbid [facility] PH 5.0 5.0 - 9.0 [facility] Glucose Urine UA Negative Negative mg/dL [facility] Urine Blood Large (3+)(A) Negative [facility] Specific [place]bler - Urine >=1.030(H) 1.005 - 1.025 [facility] Urine Protein 100 (2+)(A) Neg-Trace mg/dL [facility] Urine Ketones Trace Negative mg/dL [facility] Nitrite Urine Negative Negative [facility] Leukocyte Esterase Urine Moderate (2+)(A) Negative [facility] RBC Urine 6-10(A) 0 - 2 /HPF [facility] Urine WBC >50(A) 0 - 5 /HPF [facility] Urine Squamous Epithelial Cell 3-5 0 - 2 /HPF [facility] Urine Bacteria 1+ None Seen [facility] Hyaline Casts, Urine 3-5 0 - 2 /LPF [facility] 09/18/2025 2:31 AM EST 09/18/2025 2:39 AM EST Narrative [facility] - 09/18/2025 3:42 AM EST Urine, Quinonez Port Generic External Data Provider LAB URINE ORDERAB LES Final Result Performing Organization Address [facility] de Phone Number [facility] [address] [place] [phone] * (ABNORMAL) Urinalysis w/reflex microscopic (09/18/2025 2:31 AM EST) Color Urine Dark Yellow [facility] Appearance Urine Turbid [facility] PH 5.0 5.0 - 9.0 [facility] Glucose Urine UA Negative Negative mg/dL [facility] Urine Blood Large (3+)(A) Negative [facility] Specific [place] - Urine >=1.030(H) 1.005 - 1.025 [facility] Urine Protein 100 (2+)(A) Neg-Trace mg/dL [facility] Urine Ketones Trace Negative mg/dL [facility] Nitrite Urine Negative Negative [facility] Leukocyte Esterase Urine Moderate (2+)(A) Negative [facility] 09/18/2025 2:31 AM EST 09/18/2025 2:39 AM EST Narrative [facility] - 09/18/2025 2:45 AM EST Urine, Quinonez Port Generic External Data Provider LAB URINE ORDERAB LES Final Result Performing Organization Address [facility] Co de Phone Number [facility] [address] [place] [phone] * (ABNORMAL) CBC auto differential (09/17/2025 11:37 PM EST) Only the most recent of2 resultswithin the time period is included. White Blood Count 6.3 4.8 - 10.8 X10*3/uL [facility] Red Blood Count 4.91 4.20 - 5.50 X10*6/uL [facility] Hemoglobin 13.5 12.0 - 16.0 g/dl [facility] Hematocrit 41.1 37.0 - 47.0 % [facility] Mean Corpuscular Volume 83.7 80.0 - 98.0 fL [facility] Mean Corpuscular Hemoglobin 27.5 27.0 - 33.0 pg [facility] Mean Corpuscular HGB Conc 32.8 31.0 - 35.0 g/dl [facility] Red Cell Distribution Width 12.7 11.0 - 16.0 % [facility] Platelet Count 252 160 - 400 X10*3/uL [facility] Mean Platelet Volume 9.6 9.4 - 12.3 fL [facility] Neutrophils Percent Auto 37.5(L) 45 - 73 % [facility] Imm Gran Pct Auto 0.0 0.0 - 0.4 % [facility] Lymphocytes Percent Auto 48.7(H) 20 - 40 % [facility] Monocytes Percent Auto 7.4 2 - 11 % [facility] Eosinophils Percent Auto 5.8(H) 0 - 4 % [facility] Basophils Percent Auto 0.6 0 - 2 % [facility] NRBC Pct Auto 0.0 0.0 - 0.2 /100WBC [facility] Neutrophils Absolute Auto 2.4 2.0 - 8.3 x10*3/uL [facility] Imm Gran Abs Auto 0.00 0.00 - 0.03 X10*3/uL [facility] Lymphocytes Absolute Auto 3.1 1.2 - 4.9 X10*3/uL [facility] Monocytes Absolute Auto 0.5 0.1 - 1.2 X10*3/uL [facility] Eosinophils Absolute Auto 0.4 0.0 - 0.4 X10*3/uL [facility] Basophils Absolute Auto 0.0 0.0 - 0.2 X10*3/uL [facility] NRBC Abs Auto 0.000 0.0 - 0.012 X10*3/uL [facility] 09/17/2025 11:3 7 PM EST 09/17/2025 11:41 PM EST us Generic External Data Provider LAB BLOOD ORDERAB LES Final Result [facility] [address] [place] [address] [phone] * (ABNORMAL) Comprehensive Metabolic Panel (09/17/2025 11:37 PM EST) Sodium 147(H) 135 - 145 mmol/L [facility] Potassium 3.9 3.3 - 5.1 mmol/L [facility] Chloride 112(H) 96 - 108 mmol/L [facility] Carbon Dioxide 25 22 - 29 mmol/L [facility] Anion Gap 14 12 - 20 [facility] Urea Nitrogen (BUN) 19(H) 9 - 16 mg/dL [facility] Creatinine, Serum 0.75 0.5 - 1.4 mg/dL [facility] Creatinine Clr Calc Pharmacy 85.3 [facility] Comment:Provided height and weight: 160.02 cm,88.6 kg.eGFR (calculated from the MDRD study equation) and eCrCl(calculated from the Cockcroft-Gault equation) are based ondifferent parameters and may not yield comparable results.If eCrCl result is absurd, please check patient'sheight/weight. Estimated Glomerular Filt Rate >60 [facility] Comment:Chronic Kidney Disea se: Estimated GFR < 60 mL/min/1.35g2Svjtrl Kidney Disease: Estimated GFR < 15 mL/min/1.73m2 Glucose 108 60 - 115 mg/dL [facility] Calcium 9.0 8.4 - 10.2 mg/dL [facility] Bilirubin, Total 0.2 0.0 - 1.0 mg/dL [facility] Aspartate Amino Transferase 14 5 - 31 U/L [facility] Alanine Aminotransferase 13 0 - 31 U/L [facility] Total Protein 6.1(L) 6.5 - 8.0 g/dL [facility] Albumin Level 3.8 3.5 - 5.0 g/dL [facility] Alkaline Phosphatase 71 39 - 117 U/L [facility] 09/17/2025 11:3 7 PM EST 09/17/2025 11:41 PM EST us Generic External Data Provider LAB BLOOD ORDERAB LES Final Result [facility] [address] [place] [phone] [phone] * (ABNORMAL) Basic Metabolic Panel (08/20/2025 7:42 PM EDT) Sodium 144 135 - 145 mmol/L [facility] Potassium 3.7 3.3 - 5.1 mmol/L [facility] Chloride 114(H) 96 - 108 mmol/L [facility] Carbon Dioxide 23 22 - 29 mmol/L [facility] Anion Gap 11(L) 12 - 20 [facility] Urea Nitrogen (BUN) 20(H) 9 - 16 mg/dL [facility] Creatinine, Serum 0.71 0.5 - 1.4 mg/dL [facility] Creatinine Clr Calc Pharmacy 90.7 [facility] Comment:Provided height and weight: 160.02 cm,89.8 kg.eGFR (calculated from the MDRD study equation) and eCrCl(calculated from the Cockcroft-Gault equation) are based ondifferent parameters and may not yield comparable results.If eCrCl result is absurd, please check patient'sheight/weight. Estimated Glomerular Filt Rate >60 [facility] Comment:Chronic Kidney Disea se: Estimated GFR < 60 mL/min/1.00v3Tnloql Kidney Disease: Estimated GFR < 15 mL/min/1.73m2 Glucose 102 60 - 115 mg/dL [facility] Calcium 8.5 8.4 - 10.2 mg/dL [facility] 08/20/2025 7:42 PM EDT 08/20/2025 7:44 PM EDT Generic External Data Provider LAB BLOOD ORDERAB LES Final Result Performing Organization Address [facility]/ZIP Co de Phone Number [facility] [address] [place] [phone] * Culture, Urine, Routine (08/20/2025 12:00 AM EDT) Urine Urine specimen obtained by clean catch procedure / Unknown 08/20/2025 08/20/2025 Comment:[facility] Narrative [facility] - 08/23/2025 7:31 AM EDT Escherichia [...] GENERAL ORDERABLES Final Result Performing Organization Address [facility] Co de Phone Number [facility] [address] [place] [phone] * (ABNORMAL) Lipid Panel, Standard (04/20/2025 12:48 PM EDT) Triglycerides 72 <150 mg/dL [facility] Comment:Desirable Triglyceri de: less than 150 mg/dLBorderline High Triglyceride 150-199 mg/dLHigh Triglyceride: 200-499 mg/dLVery High Triglyceride: greater than or equal to 5OO mg/dL Cholesterol 164 <200 mg/dL [facility] Comment:Desirable Cholestero l: less than 200 mg/dLBorderline High Cholesterol: 200-239 mg/dLHigh Cholesterol: greater than 239 mg/dL LDL Cholesterol Calculated 105(H) <100 mg/dL [facility] Comment:Desirable LDL: less than 100 mg/dLNear Optimal/Above Optimal LDL: 110- 129 mg/dLBorderline High LDL: 130-159 mg/dLHigh LDL: 160-189 mg/dLVery High LDL: greater than or equal to 190 mg/dL HDL Cholesterol 45 >40 mg/dL [facility] Comment:Desirable HDL: great er than 40 mg/dL Note: This HDL assay may give artificially low results in patients with liver disease. Blood Venous blood specimen / Unknown 04/20/2025 12:48 PM EDT 04/20/2025 4:07 PM EDT Aliza Paul DO LAB BLOOD ORDERABLES Final R esult Performing Organization Address [facility]/ZIP Co de Phone Number [facility] [address] [place] [phone] * HEPATITIS C AB W/REFL TO HCV RNA, QN, PCR (01/28/2022 10:33 AM EDT) HEPATITIS C ANTIBODY NON-REACT ERNESTO NON-REACT [facility]O [facility] INDEX 0.01 <1.00 [facility] Comment: HCV antibody was non-reactive. There is no laboratory evidence of HCV infection. In most cases, no further action is required. However, if recent HCV exposure is suspected, a test for HCV RNA (test code 94518) is suggested. For additional information please refer to http://education.[employer]/faq/PMV04q0 (This link is being provided for informational/ educational purposes only.) 01/28/2022 10:3 3 AM EDT Aliza Paul DO HISTORICAL/NON ORDERABLE LAB S Final Result [facility] [address] * HIV 1/2 ANTIGEN/ANTIBODY,FOURTH GENERATION W/RFL [...] purpose. For additional information please refer to http://[employer]/faq/PWR326 (This link is being provided for informational/ educational purposes only.) The performance of this assay has not been clinically validated in patients less than 2 years old. 01/28/2022 10:3 3 AM EDT us Aliza Paul DO LAB BLOOD ORDERABLES Final R esult [facility] [address] * HPV E6/E7 RFLX ROMA 16 18/45 (12/10/2017 12:51 PM EST) ADDITIONAL TESTING Not indicated () [facility] Comment: Test Performed by [employer] [facility], [address] [place] [address] Ulises Silva M.D., Ph.D., Director of Laboratories , [facility] [id number] HPV 16 RNA Test not performed [facility] HPV 18/45 RNA Test not performed [facility] HPV mRNA E6/E7 Not Detected NOT DETECTED [facility] Comment: This test was performed using the APTIMA(R) HPV Assay ([employer] This assay detects E6/E7 viral messenger RNA (mRNA) from 14 high-risk HPV types (16,18,31,33,35,39,45,51, 52,56,58,59,66,68). For additional information please refer to: http://education.[employer]/faq/BXA024r5 (This link is being provided for informational/ educational purposes only.) Please note: Effective 07/20/2016, HPV testing will be performed using [employer]'s APTIMA test which targets mRNA. Detecting mRNA instead of DNA, as in older methods, offers significant improvements in specificity. 12/10/2017 12:5 1 PM EST us Aliza Paul DO HISTORICAL/NON ORDERABLE LAB S Final Result [facility] [address] from Last 3 Months or Most Recently Relevant to Health Maintenance Insurance [facility] C3 DENTAL-[facility] MEDICAID STAND ADULT Care Teams Acquisitions Analyst Relationship Specialty Start Date End Date Aliza Paul DO [address] [place] [phone] PCP - General Family Medicine 02/23/12 Lesley Ingram Community Health Worker 05/17/24 Rocio Ingram, RICHARDSON [address] [place] [phone] Registered Nurse Family Medicine 04/19/25 Kathrine Blank 04/19/25 [facility] 05/29/25
--- OUTSIDE RECORDS SUMMARY | 2025-09-19 18:38 | XMS_ITS | Encounter Summary ---
Author Organization [employer] Address [address] [place] [address] 7 [place] [address] Care Team Providers Care Telecommunications Operator Name Role Phone Aliza Paul DO Primary Care Provider Lesley Ingram Unavailable Rocio Ingram RN Unavailable [phone] Kathrine Blank Unavailable Reason for Visit * Reason Onset Date Comments ER Follow-up 09/19/2025 Encounter Details Date Type Department Care Team (Late st Contact Info) Description 09/19/2025 Telephone [facility] MEDICINE [address] [place], [place] [phone] Aliza Paul DO [address] [place], [place] [phone] ER Follow-up Social History Tobacco Use Types Packs/Day [...] encounter Miscellaneous Notes * Telephone Encounter - Marilu Blanchard RN - 09/19/2025 9:48 AM EST TC placed to patient [phone] regarding below message. RN status check patient. Patient reported she started her antibiotics yesterday, covarrubias cath patent, urine color is dark yellow. RN advised patient to cont her antibiotics until all gone, and drink more fluids. RN advise patient if she develops a fever, increased weakness, decreased urine output to go to the ED for further evaluation. Patient verbalized understanding. PT to F/U PRN. ----- Message from Nurse Parvin Butt sent at 09/18/2025 8:08 AM EST ----- Transition of Care Note Cheryl Garcia is going through a recent transition of care. Emergency Room Visit Date: 09/17/2025 Facility: [facility] Diagnosis: UTI Disposition: Discharged home Discharge summary in the chart: Yes Please contact for a status check documented in this encounter Plan of Treatment Not on file documented as of this encounter Visit Diagnoses Not on filedocumented in this encounter Additional Health Concerns Assessment Noted Time PHQ-9 Depression Total Score: 15 024 9:20 AM EDT documented as of this encounter Care Teams Telecommunications Operator Relationship Specialty Start Date End Date Aliza Paul DO [address] [place] [address] PCP - General Family Medicine 02/23/12 Lesley Ingram Community Health Worker 05/17/24 Rocio Ingram RN [address] [place] [address] Registered Nurse Family Medicine 04/19/25 Kathrine Blank 04/19/25 [facility] 05/29/25 documented as of this encounter
--- OUTSIDE RECORDS SUMMARY | 2025-09-19 18:38 | XMS_ITS | Encounter Summary ---
Author Organization [employer] Address [address] [place] [address] 7 [place] [address] Care Team Providers Care Plastic Jig And Fixture Builder Name Role Phone Aliza Paul DO Primary Care Provider Lesley Ingram Unavailable Rosi Castro RN Unavailable Unavailable Rosi Castro RN Unavailable Unavailable Lesley Ingram Unavailable Rocio Ingram RN Unavailable [phone] Kathrine Blank Unavailable Reason for Visit * Reason Onset Date Comments fyi 01/17/2025 Encounter Details Date Type Department Care Team (Late st Contact Info) Description 01/17/2025 Telephone [facility] MEDICINE 230 [place], [place] [phone] Aliza Paul DO 230 [place], [place] [phone] fyi Social History Tobacco Use Types Packs/Day [...] 9:12 AM EDT Tc from Martina with [employer] Informing they will be sending authorization for STORE HOST services as pt currently has no in-home services and needs form send back urgently. If any questions please contact Martina [phone] documented in this encounter Plan of Treatment Not on file documented as of this encounter Visit Diagnoses Not on filedocumented in this encounter Additional Health Concerns Assessment Noted Time PHQ-9 Depression Total Score: 15 024 9:20 AM EDT documented as of this encounter Care Teams Plastic Jig And Fixture Builder Relationship Specialty Start Date End Date Aliza Paul DO [address] [place] [address] PCP - General Family Medicine 02/23/12 Lesley Ingram Community Health Worker 05/17/24 Rosi Castro RN Compliance Vice President 05/17/24 03/05/25 Rosi Castro RN Registered Nurse Family Medicine 04/06/25 04/10/25 Lesley Ingram 04/06/25 04/10/25 Rocio Ingram RN [address] [place] [address] Registered Nurse Family Medicine 04/19/25 Kathrine Blank 04/19/25 [facility] 07/27/24 05/28/25 [facility] 05/29/25 documented as of this encounter
--- OUTSIDE RECORDS SUMMARY | 2025-09-19 18:38 | XMS_ITS | Encounter Summary ---
Author Organization [employer] Address [address] [place] [address] 7 [place] [address] Care Team Providers Care Production Machine Computer Operator Name Role Phone Aliza Paul DO Primary Care Provider Lesley Ingram Unavailable Rosi Castro RN Unavailable Unavailable Rosi Castro RN Unavailable Unavailable Lesley Ingram Unavailable Rocio Ingram RN Unavailable [phone] Kathrine Blank Unavailable Reason for Visit * Reason Onset Date Comments PT-1 12/11/2024 Encounter Details Date Type Department Care Team (Late st Contact Info) Description 12/11/2024 Telephone [facility] MEDICINE 230 [place], [place] [phone] Aliza Paul DO 230 [place], [place] [phone] PT-1 Social History Tobacco Use Types Packs/Day [...] Y/N: Yes Provider name or facility name: [address] [place] [address], [address], [place] [address] Urology and Orthopedic [address] [place] [address] Escort needed: Y/N: Yes Do you have [...] documented as of this encounter Care Teams Production Machine Computer Operator Relationship Specialty Start Date End Date Aliaz Paul DO [address] [place] [address] PCP - General Family Medicine 02/23/12 Lesley Ingram Community Health Worker 05/17/24 Rosi Castro, RN Hydrogeologist 05/17/24 03/05/25 Rosi Castro, RN Registered Nurse Family Medicine 04/06/25 04/10/25 Lesley Ingram 04/06/25 04/10/25 Rocio Ingram RN [address] [place] [address] Registered Nurse Family Medicine 04/19/25 Kathrine Blank 04/19/25 [facility] 07/27/24 05/28/25 [facility] 05/29/25 documented as of this encounter
--- OUTSIDE RECORDS SUMMARY | 2025-09-19 18:38 | XMS_ITS | Encounter Summary ---
Author Organization [employer] Address [address] [place] [address] 7t [place] [address] Care Team Providers Care Accounts Adjustable Clerk Name Role Phone Aliza Paul DO Primary Care Provider Lesley Ingram Unavailable Rosi Castro RN Unavailable Unavailable Rosi Castro RN Unavailable Unavailable Lesley Ingram Unavailable Rocio Ingram RN Unavailable [phone] Kathrine Blank Unavailable Reason for Visit * Reason Comments Med Refill Encounter Details Date Type Department Care Team (Late st Contact Info) Description 07/01/2024 Refill [facility] MEDICINE 230 [place], [place] [phone] Aliza Paul DO 230 [place], [place] [phone] Other chronic pain Social History Tobacco Use [...] documented as of this encounter Care Teams Accounts Adjustable Clerk Relationship Specialty Start Date End Date Aliza Paul DO [address] [place] [address] PCP - General Family Medicine 02/23/12 Lesley Ingram Community Health Worker 05/17/24 Rosi Castro RN Zinc Furnace Charger 05/17/24 03/05/25 Rosi Castro RN Registered Nurse Family Medicine 04/06/25 04/10/25 Lesley Ingram 04/06/25 04/10/25 Rocio Ingram RN [address] [place] [address] Registered Nurse Family Medicine 04/19/25 Kathrine Blank 04/19/25 [facility] 07/27/24 05/28/25 [facility] 05/29/25 documented as of this encounter
--- OUTSIDE RECORDS SUMMARY | 2025-09-19 18:38 | XMS_ITS | Encounter Summary ---
Author Organization [employer] Address [address] [place] [address] 7t [place] [address] Care Team Providers Care Petroleum Geology Faculty Member Name Role Phone Aliza Paul DO Primary Care Provider [phone] Lesley Ingram Unavailable Rosi Castro RN Unavailable Unavailable Rosi Castro RN Unavailable Unavailable Lesley Ingram Unavailable Rocio Ingram RN Unavailable [phone] Kathrine Blank Unavailable Reason for Visit * Reason Comments Med Refill Encounter Details Date Type Department Care Team (Late st Contact Info) Description 10/19/2024 Refill [facility] MEDICINE 230 [place], [place] [phone] Aliza Paul DO 230 [place], [place] [phone] Other chronic pain Social History Tobacco Use [...] documented as of this encounter Care Teams Petroleum Geology Faculty Member Relationship Specialty Start Date End Date Aliza Paul DO [address] [place] [address] PCP - General Family Medicine 02/23/12 Lesley Ingram Community Health Worker 05/17/24 Rosi Castro RN Anchorer 05/17/24 03/05/25 Rosi Castro RN Registered Nurse Family Medicine 04/06/25 04/10/25 Lesley Ingram 04/06/25 04/10/25 Rocio Ingram RN [address] [place] [address] Registered Nurse Family Medicine 04/19/25 Kathrine Blank 04/19/25 [facility] 07/27/24 05/28/25 [facility] 05/29/25 documented as of this encounter
--- OUTSIDE RECORDS SUMMARY | 2025-09-19 18:38 | XMS_ITS | Encounter Summary ---
Author Organization [employer] Address [address] [place] [address] 7t [place] [address] Care Team Providers Care Coating Machine Operator Name Role Phone Aliza Paul DO Primary Care Provider [phone] Lesley Ingram Unavailable Rosi Castro RN Unavailable Unavailable Rosi Castro RN Unavailable Unavailable Lesley Ingram Unavailable Rocio Ingram RN Unavailable [phone] Kathrine Blank Unavailable Reason for Visit * Reason Onset Date Comments Nurse Triage 09/13/2024 Encounter Details Date Type Department Care Team (Late st Contact Info) Description 09/13/2024 Telephone [facility] MEDICINE 230 [place], [place] [phone] Aliza Paul DO 230 [place], [place] [phone] Nurse Triage Social History Tobacco Use Types [...] the past 12 months, has t he [employer], gas, oil or water [email or web address] threatened to shut off services in your [...] now. Pt is offered to come to [facility] which is open till 8pm today but, doesn't have transportation. Pt reports will come tomorrow to [facility] open 830am -400pm. Pt requests an uber ride for tomorrow. Uber is scheduled for 1155am spanish moss picker at Pt address for tomorrow. [...] documented as of this encounter Care Teams Coating Machine Operator Relationship Specialty Start Date End Date Aliza Paul DO [address] [place] [address] PCP - General Family Medicine 02/23/12 Lesley Ingram Community Health Worker 05/17/24 Rosi Castro RN Product Safety Tester 05/17/24 03/05/25 Rosi Castro RN Registered Nurse Family Medicine 04/06/25 04/10/25 Lesley Ingram 04/06/25 04/10/25 Rocio Ingram RN [address] [place] [address] Registered Nurse Family Medicine 04/19/25 Kathrine Blank 04/19/25 [facility] 07/27/24 05/28/25 [facility] 05/29/25 documented as of this encounter
--- OUTSIDE RECORDS SUMMARY | 2025-09-19 18:38 | XMS_ITS | Encounter Summary ---
Author Organization [employer] Address [address] [place] [address] 7t [place] [address] Care Team Providers Care Tier Lift Truck Operator Name Role Phone Aliza Paul DO Primary Care Provider [phone] Lesley Ingram Unavailable Rocio Ingram RN Unavailable [phone] Kathrine Blank Unavailable Encounter Details Date Type Department Care Team (Late st Contact Info) Description 09/18/2025 Orders Only GENERIC EXTERNAL DATA DEPARTMENT [...] as of this encounter Plan of Treatment Pending Results Name Type Priority Associated Diagnoses Date /Time Culture, Urine, Routine Microbiology Routine 09/18/2025 2:31 AM EST documented as of this encounter Procedures Procedure Name Priority Date/Time Associated Diagnosis Comments URINALYSIS, COMPLETE, WITH REFLEX TO CULTURE Routine 09/18/2025 2:31 AM EST URINALYSIS WITH REFLEX MICROSCOPIC Routine 09/18/2025 2:31 AM EST CULTURE, URINE, ROUTINE Routine 09/18/2025 2:31 AM EST documented in this encounter Results * (ABNORMAL) Urinalysis, Complete, with Reflex to Culture (09/18/2025 2:31 AM EST) Color Urine Dark Yellow [facility] Appearance Urine Turbid [facility] PH 5.0 5.0 - 9.0 [facility] Glucose Urine UA Negative Negative mg/dL [facility] Urine Blood Large (3+)(A) Negative [facility] Specific [place] - Urine >=1.030(H) 1.005 - 1.025 [facility] Urine Protein 100 (2+)(A) Neg-Trace mg/dL [facility] Urine Ketones Trace Negative mg/dL [facility] Nitrite Urine Negative Negative [facility] Leukocyte Esterase Urine Moderate (2+)(A) Negative [facility] RBC Urine 6-10(A) 0 - 2 /HPF [facility] Urine WBC >50(A) 0 - 5 /HPF [facility] Urine Squamous Epithelial Cell 3-5 0 - 2 /HPF [facility] Urine Bacteria 1+ None Seen [facility] Hyaline Casts, Urine 3-5 0 - 2 /LPF [facility] 09/18/2025 2:31 AM EST 09/18/2025 2:39 AM EST Narrative [facility] - 09/18/2025 3:42 AM EST Urine, [place] Port us Generic External Data Provider LAB URINE ORDERAB LES Final Result Performing Organization Address [facility] de Phone Number [facility] [address] [place] [phone] * (ABNORMAL) Urinalysis w/reflex microscopic (09/18/2025 2:31 AM EST) Color Urine Dark Yellow [facility] Appearance Urine Turbid [facility] PH 5.0 5.0 - 9.0 [facility] Glucose Urine UA Negative Negative mg/dL [facility] Urine Blood Large (3+)(A) Negative [facility] Specific [place] - Urine >=1.030(H) 1.005 - 1.025 [facility] Urine Protein 100 (2+)(A) Neg-Trace mg/dL [facility] Urine Ketones Trace Negative mg/dL [facility] Nitrite Urine Negative Negative [facility] Leukocyte Esterase Urine Moderate (2+)(A) Negative [facility] 09/18/2025 2:31 AM EST 09/18/2025 2:39 AM EST Narrative [facility] - 09/18/2025 2:45 AM EST Urine, [place] Port us Generic External Data Provider LAB URINE ORDERAB LES Final Result Performing Organization Address [facility] Co de Phone Number [facility] [address] [place] [address] [phone] documented in this encounter Visit Diagnoses Not on filedocumented in this encounter Additional Health Concerns Assessment Noted Time PHQ-9 Depression Total Score: 15 024 9:20 AM EDT documented as of this encounter Care Teams Tier Lift Truck Operator Relationship Specialty Start Date End Date Aliza Paul DO 230 [place] [address] PCP - General Family Medicine 02/23/12 Lesley Ingram Community Health Worker 05/17/24 Rocio Ingram RN [address] [place] [address] Registered Nurse Family Medicine 04/19/25 Kathrine Blank 04/19/25 [facility] 05/29/25 documented as of this encounter
--- OUTSIDE RECORDS SUMMARY | 2025-09-19 18:38 | XMS_ITS | Encounter Summary ---
Author Organization [employer] Address [address] [place] [address] 7t [place] [address] Care Team Providers Care Belt Fixer Name Role Phone Aliza Paul DO Primary Care Provider [phone] Lesley Ingram Unavailable Rocio Ingram RN Unavailable [phone] Kathrine Blank Unavailable Encounter Details Date Type Department Care Team (Late st Contact Info) Description 09/17/2025 Orders Only GENERIC EXTERNAL DATA DEPARTMENT [...] Diagnosis Comments CBC WITH AUTO DIFFERENTIAL Routine 09/17/2025 11:37 PM EST COMPREHENSIVE METABOLIC PANEL Routine 09/17/2025 11:37 PM EST documented in this encounter Results * (ABNORMAL) Comprehensive Metabolic Panel (09/17/2025 11:37 PM EST) Sodium 147(H) 135 - 145 mmol/L [facility] Potassium 3.9 3.3 - 5.1 mmol/L [facility] Chloride 112(H) 96 - 108 mmol/L [facility] Carbon Dioxide 25 22 - 29 mmol/L [facility] Anion Gap 14 12 - 20 [facility] Urea Nitrogen (BUN) 19(H) 9 - 16 mg/dL [facility] Creatinine, Serum 0.75 0.5 - 1.4 mg/dL [facility] Creatinine Clr Calc Pharmacy 85.3 [facility] Comment:Provided height and weight: 160.02 cm,88.6 kg.eGFR (calculated from the MDRD study equation) and eCrCl(calculated from the Cockcroft-Gault equation) are based ondifferent parameters and may not yield comparable results.If eCrCl result is absurd, please check patient'sheight/weight. Estimated Glomerular Filt Rate >60 [facility] Comment:Chronic Kidney Disea se: Estimated GFR < 60 mL/min/1.60u2Suthkd Kidney Disease: Estimated GFR < 15 mL/min/1.73m2 Glucose 108 60 - 115 mg/dL [facility] Calcium 9.0 8.4 - 10.2 mg/dL [facility] Bilirubin, Total 0.2 0.0 - 1.0 mg/dL [facility] Aspartate Amino Transferase 14 5 - 31 U/L [facility] Alanine Aminotransferase 13 0 - 31 U/L [facility] Total Protein 6.1(L) 6.5 - 8.0 g/dL [facility] Albumin Level 3.8 3.5 - 5.0 g/dL [facility] Alkaline Phosphatase 71 39 - 117 U/L [facility] 09/17/2025 11:3 7 PM EST 09/17/2025 11:41 PM EST us Generic External Data Provider LAB BLOOD ORDERAB LES Final Result [facility] [address] [place] [address] [phone] * (ABNORMAL) CBC auto differential (09/17/2025 11:37 PM EST) White Blood Count 6.3 4.8 - 10.8 X10*3/uL [facility] Red Blood Count 4.91 4.20 - 5.50 X10*6/uL [facility] Hemoglobin 13.5 12.0 - 16.0 g/dl [facility] Hematocrit 41.1 37.0 - 47.0 % [facility] Mean Corpuscular Volume 83.7 80.0 - 98.0 fL [facility] Mean Corpuscular Hemoglobin 27.5 27.0 - 33.0 pg [facility] Mean Corpuscular HGB Conc 32.8 31.0 - 35.0 g/dl [facility] Red Cell Distribution Width 12.7 11.0 - 16.0 % [facility] Platelet Count 252 160 - 400 X10*3/uL [facility] Mean Platelet Volume 9.6 9.4 - 12.3 fL [facility] Neutrophils Percent Auto 37.5(L) 45 - 73 % [facility] Imm Gran Pct Auto 0.0 0.0 - 0.4 % [facility] Lymphocytes Percent Auto 48.7(H) 20 - 40 % [facility] Monocytes Percent Auto 7.4 2 - 11 % [facility] Eosinophils Percent Auto 5.8(H) 0 - 4 % [facility] Basophils Percent Auto 0.6 0 - 2 % [facility] NRBC Pct Auto 0.0 0.0 - 0.2 /100WBC [facility] Neutrophils Absolute Auto 2.4 2.0 - 8.3 x10*3/uL [facility] Imm Gran Abs Auto 0.00 0.00 - 0.03 X10*3/uL [facility] Lymphocytes Absolute Auto 3.1 1.2 - 4.9 X10*3/uL [facility] Monocytes Absolute Auto 0.5 0.1 - 1.2 X10*3/uL [facility] Eosinophils Absolute Auto 0.4 0.0 - 0.4 X10*3/uL [facility] Basophils Absolute Auto 0.0 0.0 - 0.2 X10*3/uL [facility] NRBC Abs Auto 0.000 0.0 - 0.012 X10*3/uL [facility] 09/17/2025 11:3 7 PM EST 09/17/2025 11:41 PM EST us Generic External Data Provider LAB BLOOD ORDERAB LES Final Result [facility] [address] [place] [address] [phone] documented in this encounter Visit Diagnoses Not on filedocumented in this encounter Additional Health Concerns Assessment Noted Time PHQ-9 Depression Total Score: 15 08/22/2 024 9:20 AM EDT documented as of this encounter Care Teams Belt Fixer Relationship Specialty Start Date End Date Aliza Paul DO [address] [place] [address] PCP - General Family Medicine 02/23/12 Lesley Ingram Community Health Worker 05/17/24 Rocio Ingram RN [address] [place] [address] Registered Nurse Family Medicine 04/19/25 Kathrine Blank 04/19/25 [facility] 05/29/25 documented as of this encounter
--- OUTSIDE RECORDS SUMMARY | 2025-09-19 18:39 | XMS_ITS | Clinical Summary ---
Author Organization [facility] Address [address] [place] [address] Phone Care Team Providers Care Drawing Instructor Name Role Phone Aliza Paul DO Primary Care Provider [phone] Social History Tobacco Use Types Packs/Day Years [...] topic Insurance MEDICAID - [place] Care Teams Drawing Instructor Relationship Specialty Start Date End Date Aliza Paul DO [address] [place] [address] PCP - General Family Medicine 10/04/24
--- OUTSIDE RECORDS SUMMARY | 2025-09-19 18:39 | XMS_ITS | Encounter Summary ---
Author Organization [employer] Address [address] [place] [address] 7t [place] [address] Care Team Providers Care Bevel Polisher Name Role Phone Aliza Paul DO Primary Care Provider Lesley Ingram Unavailable Rosi Castro RN Unavailable Unavailable Rosi Castro RN Unavailable Unavailable Lesley Ingram Unavailable Rocio Ingram RN Unavailable Kathrine Blank Unavailable Reason for Visit * Reason Comments Med Refill Encounter Details Date Type Department Care Team (Late st Contact Info) Description 09/29/2024 Refill [facility] MEDICINE 230 [place], [place] [phone] Aliza Paul DO 230 [place], [place] [phone] Closed supracondylar fracture of right humerus with [...] documented as of this encounter Care Teams Bevel Polisher Relationship Specialty Start Date End Date Aliza Paul DO [address] [place] [address] PCP - General Family Medicine 02/23/12 Lesley Ingram Community Health Worker 05/17/24 Rosi Castro RN Boiler Operator Helper 05/17/24 03/05/25 Rosi Castro RN Registered Nurse Family Medicine 04/06/25 04/10/25 Lesley Ingram 04/06/25 04/10/25 Rocio Ingram RN [address] [place] [address] Registered Nurse Family Medicine 04/19/25 Kathrine Blank 04/19/25 [facility] 07/27/24 05/28/25 [facility] 05/29/25 documented as of this encounter
--- OUTSIDE RECORDS SUMMARY | 2025-09-19 18:39 | XMS_ITS | Encounter Summary ---
Author Organization [employer] Address [address] [place] [address] 7 [place] [address] Care Team Providers Care Haul Driver Name Role Phone Aliza Paul DO Primary Care Provider Lesley Ingram Unavailable Rosi Castro RN Unavailable Unavailable Rosi Castro RN Unavailable Unavailable Lesley Ingram Unavailable Rocio Ingram RN Unavailable Kathrine Blank Unavailable Reason for Visit * Reason Onset Date Comments PT1 12/12/2024 Encounter Details Date Type Department Care Team (Late st Contact Info) Description 12/12/2024 Telephone [facility] MEDICINE 230 [place], [place] [phone] Aliza Paul DO 230 [place], [place] [phone] PT1 Social History Tobacco Use Types Packs/Day [...] Y/N: Yes Provider name or facility name: [facility] Facility Address: [address] [place] [address] Escort needed: Y/N: Yes Do you have [...] documented as of this encounter Care Teams Haul Driver Relationship Specialty Start Date End Date Aliza Paul DO [address] [place] [address] PCP - General Family Medicine 02/23/12 Lesley Ingram Community Health Worker 05/17/24 Rosi Castro, RN Appeals Reviewer Veteran 05/17/24 03/05/25 Rosi Castro, RICHARDSON Registered Nurse Family Medicine 04/06/25 04/10/25 Lesley Ingram 04/06/25 04/10/25 Rocio Ingram RN [address] [place] [address] [place] [address] Registered Nurse Family Medicine 04/19/25 Kathrine Blank 04/19/25 [facility] 07/27/24 05/28/25 [facility] 05/29/25 documented as of this encounter
--- OUTSIDE RECORDS SUMMARY | 2025-09-19 18:39 | XMS_ITS | Encounter Summary ---
Author Organization [employer] Address [address] [place] [address] 7t [place] [address] Care Team Providers Care Yarn Dry Room Worker Name Role Phone Aliza Paul DO Primary Care Provider Lesley Ingram Unavailable Rosi Castro RN Unavailable Unavailable Rosi Castro RN Unavailable Unavailable Lesley Ingram Unavailable Rocio Ingram RN Unavailable [phone] Kathrine Blank Unavailable Reason for Visit * Reason Comments Med Refill Encounter Details Date Type Department Care Team (Late st Contact Info) Description 08/18/2024 Refill [facility] MEDICINE [address] [place], [place] [phone] Aliza Paul DO 230 [place], [place] [phone] Closed supracondylar fracture of right humerus with [...] documented as of this encounter Care Teams Yarn Dry Room Worker Relationship Specialty Start Date End Date Aliza Paul DO [address] [place] [address] PCP - General Family Medicine 02/23/12 Lesley Ingram Community Health Worker 05/17/24 Rosi Castro, RN Vice President Business & Corporate Development 05/17/24 03/05/25 Rosi Castro RN Registered Nurse Family Medicine 04/06/25 04/10/25 Lesley Ingram 04/06/25 04/10/25 Rocio Ingram RN [address] [place] [address] Registered Nurse Family Medicine 04/19/25 Kathrine Blank 04/19/25 [facility] 07/27/24 05/28/25 [facility] 05/29/25 documented as of this encounter
--- OUTSIDE RECORDS SUMMARY | 2025-09-19 18:39 | XMS_ITS ---
Author Organization [employer] Address [address] [place] [address] 7t [place] [address] Care Team Providers Care Model Maker Plaster Name Role Phone Aliza Paul DO Primary Care Provider Lesley Ingram Unavailable Rocio Ingram RN Unavailable Kathrine Blank Unavailable CM Complex Status:Outreach In Progress (Enrolling) Start date:04/19/2025 Enrollment reason:ADT Feed Overview [facility] ED 04/18/25 Case Team Name Relationship Phone Rocio Ingram RN(Responsible Staff) Registered Nurse [phone] Continued Care and Services Coordination
--- OUTSIDE RECORDS SUMMARY | 2025-09-19 18:39 | XMS_ITS | Encounter Summary ---
Author Organization [employer] Address [address] [place] [address] 7t [place] [address] Care Team Providers Care Dye Feeder Name Role Phone Aliza Paul DO Primary Care Provider Lesley Ingram Unavailable Rosi Castro RN Unavailable Unavailable Rosi Castro RN Unavailable Unavailable Lesley Ingram Unavailable Rocio Ingram RN Unavailable [phone] Kathrine Blank Unavailable Reason for Visit * Reason Comments Med Refill Encounter Details Date Type Department Care Team (Late st Contact Info) Description 12/27/2024 Refill [facility] MEDICINE 230 [place], [place] [phone] Aliza Paul DO 230 [place], [place] [phone] Other chronic pain Social History Tobacco Use [...] documented as of this encounter Care Teams Dye Feeder Relationship Specialty Start Date End Date Aliza Paul DO [address] [place] [address] PCP - General Family Medicine 02/23/12 Lesley Ingram Community Health Worker 05/17/24 Rosi Castro RN Citrix Administrator 05/17/24 03/05/25 Rosi Castro RN Registered Nurse Family Medicine 04/06/25 04/10/25 Lesley Ingram 04/06/25 04/10/25 Rocio Ingram RN [address] [place] [address] Registered Nurse Family Medicine 04/19/25 Kathrine Blank 04/19/25 [facility] 07/27/24 05/28/25 [facility] 05/29/25 documented as of this encounter
--- OUTSIDE RECORDS SUMMARY | 2025-09-19 18:39 | XMS_ITS | Encounter Summary ---
Author Organization [employer] Address [address] [place] [address] 7 [place] [address] Care Team Providers Care Hoop Machine Operator Name Role Phone Aliza Paul DO Primary Care Provider [phone] Lesley Ingram Unavailable Rosi Castro RN Unavailable Unavailable Rosi Castro RN Unavailable Unavailable Lesley Ingram Unavailable Rocio Ingram RN Unavailable [phone] Kathrine Blank Unavailable Reason for Visit * Reason Onset Date Comments FYI 08/14/2024 Encounter Details Date Type Department Care Team (Late st Contact Info) Description 08/14/2024 Telephone [facility] MEDICINE [address] [place], [place] [phone] Aliza Paul DO 230 [place], [place] [phone] FYI Social History Tobacco Use Types Packs/Day [...] 10:28 AM EDT [facility] went to visit pt today to be able to change catheter. But when she arrived pt was being put in the ambulance and was going to be transported to [facility] for shortness of breath. documented in this encounter Plan of Treatment Not on file documented as of this encounter Visit Diagnoses Not on filedocumented in this encounter Additional Health Concerns Assessment Noted Time PHQ-9 Depression Total Score: 4 03/09/20 24 9:14 AM EDT documented as of this encounter Care Teams Hoop Machine Operator Relationship Specialty Start Date End Date Aliza Paul DO [address] [place] [address] PCP - General Family Medicine 02/23/12 Lesley Ingram Community Health Worker 05/17/24 Rosi Castro RN Machining Supervisor 05/17/24 03/05/25 Rosi Castro RN Registered Nurse Family Medicine 04/06/25 04/10/25 Lesley Ingram 04/06/25 04/10/25 Rocio Ingram RN [address] [place] [address] Registered Nurse Family Medicine 04/19/25 Kathrine Blank 04/19/25 [facility] 07/27/24 05/28/25 [facility] 05/29/25 documented as of this encounter
--- OUTSIDE RECORDS SUMMARY | 2025-09-19 18:39 | XMS_ITS ---
Author Organization [employer] Address [address] [place] [address] 7t [place] [address] Care Team Providers Care Fountain Operator Name Role Phone Aliza Paul DO Primary Care Provider Lesley Ingram Unavailable Rocio Ingram RN Unavailable [phone] Kathrine Blank Unavailable CHW Complex Status:Outreach In Progress (Enrolling) Start date:04/19/2025 Enrollment reason:ADT Feed Overview ADT[facility] ED 04/18/25. Please outreach for enrollment. Case Team Name Relationship Phone Kathrine Blank(Responsible Staff) [phone] Continued Care and Services Coordination
--- OUTSIDE RECORDS SUMMARY | 2025-09-19 18:39 | XMS_ITS | Encounter Summary ---
Author Organization [facility] Address [address] [place] [address] Care Team Providers Care Senior Health Educator Name Role Phone Aliza Paul DO Primary Care Provider [phone] Encounter Details Date Type Department Care Team (Late st Contact Info) Description 09/29/2024 Lab Requisition [facility] - Main Lab [address] [facility] [place] [address] Aliza Paul DO [address] [place], [place] Urinary tract infection, site not specified [...] mirabilis(A ) OFELIA 10/01/2024 9:03 AM EST [facility] Comment: Edited result: Previously reported as Proteus species on 09/30/2024 at 1159 EST. Urine Urine specimen from urinary conduit / Unknown 09/29/2024 3:30 PM EST 09/29/2024 6:23 PM EST [facility] - 10/01/2024 9:03 AM EST [...] LAB MICROBIOLOGY - GENERAL ORDERABLES Final Result [facility] [address] [place] [address], documented in this encounter Visit Diagnoses Diagnosis Urinary tract infection, site not specified documented in this encounter Care Teams Senior Health Educator Relationship Specialty Start Date End Date Aliza Paul DO [address] [place] [address] PCP - General Family Medicine 10/04/24 documented as of this encounter
[2025-09-19 18:43] VITALS: BP 170/92; PULSE 63; RESP 16; O2SAT 96
[2025-09-19 18:51] VITALS: BP 170/92; PULSE 63; RESP 16; TEMP 36.1; O2SAT 96
== END 2025-09-19 19:14 | disposition home or self-care (01) ==
PROVIDERS: Emergency Provider Emergency Medicine; PCP Family Medicine
DX: M62.81 Muscle weakness (generalized) (principal); I69.322 Dysarthria following cerebral infarction; I69.354 Hemiplegia and hemiparesis following cerebral infarction affecting left non-dominant side; I10 Essential (primary) hypertension
CPT/HCPCS: 36415; 70450; 80053; 82947; 83735; 84484; 85025; 85610; 85730; 93005; 99284

== ENCOUNTER → 2025-09-19 15:16 | Outpatient (BNV) | payer MEDICAID, SELFPAY | PROVIDERS: Emergency Provider Emergency Medicine; PCP Family Medicine; Visit Provider Internal Medicine Cardiovascular Disease | DX: R00.1 Bradycardia, unspecified (principal) | CPT/HCPCS: 93010 ==

== ENCOUNTER → 2025-09-19 16:11 | Outpatient (BNV) | payer MEDICAID, SELFPAY | PROVIDERS: Emergency Provider Emergency Medicine; PCP Family Medicine; Visit Provider Radiology Diagnostic Radiology | DX: R47.1 Dysarthria and anarthria (principal) | CPT/HCPCS: 70450 ==

== ENCOUNTER 2025-09-30 14:39 | Emergency (ER) | payer MEDICAID, SELFPAY ==
--- NOTE | ~2025-09-30 | CT_ITS ---
CLINICAL HISTORY: R flank pain, tender atraumatic, Urine appears inf CT ABDOMEN AND PELVIS WITHOUT CONTRAST Comparison: CT/SR - CT ABDOMEN PELVIS WITHOUT IV CONTRAST - 11/03/22 14:53 EST Findings: Mild atelectasis and/or scarring in the bilateral lower lobes. No basilar consolidation or pleural effusion. No hydronephrosis. No renal or ureteral calculus. No acute abnormalities in the remaining unenhanced solid organs. Cholelithiasis. Aortic and arterial calcifications; no AAA. No bowel obstruction, pneumoperitoneum, or pneumatosis. No ascites or significant mesenteric edema. Pelvic ventral herniorrhaphy changes are redemonstrated. Configuration of the hernia mesh is unchanged. Colonic diverticulosis. No acute diverticulitis. The appendix is not well seen. Stable uterine configuration. Intraluminal and mural gas droplets in the urinary bladder which is decompressed by a Quinonez catheter. Grade 1 spondylolisthesis L5-S1. Mild lumbar levoscoliosis. IMPRESSION: 1. No acute obstructive uropathy or urolithiasis. 2. Luminal gas droplets in the urinary bladder could be due to the presence of a Quinonez catheter. Multiple gas droplets in the gallbladder wall raises the possibility of gas-forming infection in the setting of emphysematous cystitis. 3. No obstructive or acute inflammatory changes in the gastrointestinal tract. 4. Colonic diverticulosis. 5. Cholelithiasis. This document has been electronically signed by: Kala Curiel DO on 09/30/2025 17:43:56
--- NOTE | ~2025-09-30 | XR_ITS ---
CLINICAL HISTORY: weakness 1 view chest x-ray Comparison: CR/SR - XR CHEST 1 VIEW - 07/11/25 09:35 EDT Findings: No consolidation, pleural effusion or pneumothorax. Normal size heart. Old fracture deformity in the right humeral head and neck. Cervical fusion hardware. IMPRESSION: No acute cardiopulmonary process. This document has been electronically signed by: Kala Curiel DO on 09/30/2025 15:29:41
--- NOTE | 2025-09-30 14:44 | ECG_ITS ---
Test Reason : weakness Blood Pressure : */* mmHG Vent. Rate : 59 BPM Atrial Rate : 59 BPM P-R Int : 166 ms QRS Dur : 80 ms QT Int : 472 ms P-R-T Axes : 30 -31 19 degrees QTcB Int : 467 ms Sinus bradycardia Left axis deviation Moderate voltage criteria for LVH, may be normal variant ( R in aVL , [employer] product ) Abnormal ECG When compared with ECG of 19-Sep-2025 15:16, No significant change was found Referred By: Maryjo Acuna Electronically Signed By: Prasanna Schmidt
[2025-09-30 14:46] VITALS: BP 130/94; PULSE 67; O2SAT 97
[2025-09-30 15:03] VITALS: BP 117/75; PULSE 64; RESP 16; TEMP 36.4; O2SAT 95; BMI 31.7
[2025-09-30 15:23] LABS: MANUAL DIFF FLAG NO
[2025-09-30 15:27] LABS: Hematocrit 42.7 % (37.0-47.0); Hemoglobin 14.3 g/dl (12.0-16.0); Imm Gran Abs Auto 0.01 X10*3/uL (0.00-0.03); Imm Gran Pct Auto 0.1 % (0.0-0.4); Lymphocytes Absolute Auto 2.8 X10*3/uL (1.2-4.9); Mean Corpuscular HGB Conc 33.5 g/dl (31.0-35.0); Mean Corpuscular Hemoglobin 27.7 pg (27.0-33.0); Mean Corpuscular Volume 82.6 fL (80.0-98.0); NRBC Abs Auto 0.000 X10*3/uL (0.0-0.012); NRBC Pct Auto 0.0 /100WBC (0.0-0.2); Platelet Count 310 X10*3/uL (160-400); Red Blood Count 5.17 X10*6/uL (4.20-5.50); White Blood Count 7.1 X10*3/uL (4.8-10.8)
--- OUTSIDE RECORDS SUMMARY | 2025-09-30 15:28 | XMS_ITS | Encounter Summary ---
Author Organization [employer] Address [address] [place] [address] 7t [place] [address] Care Team Providers Care Rn Nicu Name Role Phone Aliza Paul DO Primary Care Provider Lesley Ingram Unavailable Rosi Castro RN Unavailable Unavailable Rosi Castro RN Unavailable Unavailable Lesley Ingram Unavailable Rocio Ingram RN Unavailable [phone] Kathrine Blank Unavailable Reason for Visit * Reason Comments Med Refill Encounter Details Date Type Department Care Team (Late st Contact Info) Description 06/06/2024 Refill [facility] MEDICINE [address] [place], [place] [phone] Aliza Paul DO [address] [place], [place] [phone] Chronic nonintractable headache, unspecified headache type Social [...] documented as of this encounter Care Teams Rn Nicu Relationship Specialty Start Date End Date Aliza Paul DO [address] [place] [address] PCP - General Family Medicine 02/23/12 Lesely Ingram Community Health Worker 05/17/24 Rosi Castro RN Agricultural Education Instructor 05/17/24 03/05/25 Rosi Castro RN Registered Nurse Family Medicine 04/06/25 04/10/25 Lesley Ingram 04/06/25 04/10/25 Rocio Ingram RN [address] [place] [address] Registered Nurse Family Medicine 04/19/25 Kathrine Blank 04/19/25 [facility] 07/27/24 05/28/25 [facility] 05/29/25 documented as of this encounter
--- OUTSIDE RECORDS SUMMARY | 2025-09-30 15:28 | XMS_ITS | Encounter Summary ---
Author Organization [employer] Address [address] [place] [address] 7t [place] [address] Care Team Providers Care Surgical Corsetier Name Role Phone Aliza Paul DO Primary Care Provider Lesley Ingram Unavailable Rosi Castro RN Unavailable Unavailable Rosi Castro RN Unavailable Unavailable Lesley Ingram Unavailable Rocio Ingram RN Unavailable [phone] Kathrine Blank Unavailable Encounter Details Date Type Department Care Team (Late st Contact Info) Description 11/04/2022 Telephone [facility] MEDICINE [address] [place], [place] [phone] Aliza Paul DO 230 [place], [place] [phone] Social History Tobacco Use Types Packs/Day Years [...] on filedocumented in this encounter Care Teams Surgical Corsetier Relationship Specialty Start Date End Date Aliza Paul DO [address] [place] [address] PCP - General Family Medicine 02/23/12 Lesley Ingram Community Health Worker 05/17/24 Rosi Castro, [place] Ophthalmic Tech 05/17/24 03/05/25 Rosi Castro RN Registered Nurse Family Medicine 04/06/25 04/10/25 Lesley Ingram 04/06/25 04/10/25 Rocio Ingram RN [address] [place] [address] Registered Nurse Family Medicine 04/19/25 Kathrine Blank 04/19/25 [facility] 07/27/24 05/28/25 [facility] 05/29/25 documented as of this encounter
--- OUTSIDE RECORDS SUMMARY | 2025-09-30 15:28 | XMS_ITS | Encounter Summary ---
Author Organization [employer] Address [address] [place] [address] 7 [place] [address] Care Team Providers Care Interactive Digital Media Specialist Name Role Phone Aliza Paul DO Primary Care Provider Lesley Ingram Unavailable Rosi Castro RN Unavailable Unavailable Rosi Castro RN Unavailable Unavailable Lesley Ingram Unavailable Rocio Ingram RN Unavailable Kathrine Blank Unavailable Reason for Visit * Reason Onset Date Comments fyi 01/17/2025 Encounter Details Date Type Department Care Team (Late st Contact Info) Description 01/17/2025 Telephone [facility] MEDICINE 230 [place], [place] [phone] Aliza Paul DO [address] [place], [place] [phone] fyi Social History Tobacco Use Types Packs/Day [...] 9:12 AM EDT Tc from Martina with [employer] Informing they will be sending authorization for FLYING SQUAD WORKER services as pt currently has no in-home services and needs form send back urgently. If any questions please contact Martina [phone] documented in this encounter Plan of Treatment Not on file documented as of this encounter Visit Diagnoses Not on filedocumented in this encounter Additional Health Concerns Assessment Noted Time PHQ-9 Depression Total Score: 15 024 9:20 AM EDT documented as of this encounter Care Teams Interactive Digital Media Specialist Relationship Specialty Start Date End Date Aliza Paul DO [address] [place] [address] PCP - General Family Medicine 02/23/12 Lesley Ingram Community Health Worker 05/17/24 Rosi Castro RN Access Rn 05/17/24 03/05/25 Rosi Castro RN Registered Nurse Family Medicine 04/06/25 04/10/25 Lesley Ingram 04/06/25 04/10/25 Rocio Ingram RN [address] [place] [address] Registered Nurse Family Medicine 04/19/25 Kathrine Blank 04/19/25 [facility] 07/27/24 05/28/25 [facility] 05/29/25 documented as of this encounter
--- OUTSIDE RECORDS SUMMARY | 2025-09-30 15:28 | XMS_ITS | Data Portability ---
Author Organization [facility], Main Office Address [address] [facility], [address] [place] [address] Care Team Providers Care Subcontracts Manager Name Role Phone TAYLOR ELIAS - 2ND [...] Orders Dilaudid 4 mg tablet 2023 024 [facility] , [address] [place] [address], [address], 4 17:08:30 Patient TargetsNo targets recorded. Patient InstructionsNo instructions recorded. Reason for Referral None Reported. Problems Name Problem SNOMED Code Status Onset Date Resolution Date Notes Provider Name and Address Organization Details Recorded Time Hypertens ollie emergency [id number] 104 Active 2023 Kyleigh Fritz NP [address] [facility], [address], [place], [address], [facility] [employer] 4 12:37:24 Headache 82295742 Active 2023 Kyleigh Fritz NP [address], [address], [place], [address], [facility] 4 12:37:35 Essential hypertens ion 84663045 Active 2023 Kyleigh Fritz NP [address], [address], [place], [address], [facility] 4 12:37:52 Chronic pain following spinal surgery Active 2023 Kyleigh Fritz NP [address], [address], [place], [address], [facility] 4 12:38:52 Leukocyto sis 552715542 Active 2023 Kyleigh Fritz NP [address] [facility], [address], [place], [address], [facility] 4 12:39:04 Retention of urine 493996825 Completed 202304/13/2024 Kiana Cassidy MD [address] [facility], [address], [place], [address], [facility] 4 15:44:08 Anxiety 75979026 Active 2023 Kyleigh Fritz NP [address] [facility], [address], [place], [address], [facility] 4 12:39:32 History of cervical discectom y 934097764781 20292 Completed 202304/13/2024 Kyleigh Fritz NP [address] [facility], [address], [place], [address], [facility] 4 13:00:38 History of hemorrhag ic cerebrova scular accident with residual deficit 070475591406 106 Active 2023 Kyleigh Fritz NP [address] [facility], [address], [place], [address], [facility] 4 13:02:54 Gastroeso phageal reflux disease 836298500 Active 2023 Kyleigh Fritz NP [address] [facility], [address], [place], [address], [facility] 4 13:04:09 Retention of urine 061042921 Active 2023 Kiana Cassidy MD [address] [facility], [address], [place], [address], [employer] 4 15:44:08 Urinary tract infectiou s disease 80644662 Active 2023 Kyleigh Fritz NP [address] [facility], [address], [place], [address], [facility] [employer] 4 13:32:30 Problem Notes None recorded. Medical [...] rate Respiratory rate Body temperature Oxygen saturation Systolic And Diastolic Provider Name and Address Organization Details Last Updated DateTime 4 160.02 cm 32.6 kg/m2 71615 g 90 /min 18 /min 97.2 [degF] 98 % 115/80 mm[Hg] Kyleigh Fritz NP [address] [facility], [address], [place], [address], [employer] 4 09:13:16 Date Recorded Body height Body mass index (BMI) Body weight Respiratory rate Heart rate Body temperature Oxygen saturation Systolic And Diastolic Provider Name and Address Organization Details Last Updated DateTime 4 160.02 cm 32.6 kg/m2 61669 g 19 /min 86 /min 97.5 [degF] 96 % 110/70 mm[Hg] Kyleigh Fritz NP [address] [facility], [facility] [address], [place], [address], [facility] 4 16:03:36 Date Recorded Body height Body weight Heart rate Respiratory rate Body temperature Oxygen saturation Systolic And Diastolic Provider Name and Address Organization Details Last Updated DateTime 4 160.02 cm 04683.1 4 g 85 /min 18 /min 97.4 [degF] 95 % 132/82 mm[Hg] Kyleigh Fritz NP [address] [facility], [facility] [address], [place], [address], [facility] 4 14:25:19 Date Recorded Body height Body mass index (BMI) Body weight Heart rate Respiratory rate Body temperature Oxygen saturation Systolic And Diastolic Provider Name and Address Organization Details Last Updated DateTime 4 160.02 cm 33.8 kg/m2 59906.1 4 g 83 /min 18 /min 98.1 [degF] 96 % 130/90 mm[Hg] Kyleigh Fritz NP [address] [facility], [facility] [address], [place], [address], [facility] 4 11:09:43 Date Recorded Body height Body temperature Heart rate Respiratory rate Oxygen saturation Systolic And Diastolic Provider Name and Address Organization Details Last Updated DateTime 4 160.02 cm 97.9 [degF] 82 /min 18 /min 96 % 140/92 mm[Hg] LILLIAN GOMEZ [address] [facility], [address], [place], [address], [facility] 4 11:53:33 Social History Question Answer Notes LastModified by Organizat ion Details LastModified Time Tobacco Smoking Status Never Smoker she says not really Kiana Cassidy MD [address] [facility], [facility] [address], [place], [address], [facility] 04/14/2024 21:45:44 Do You Have An [...] Do You Have A Medical Power Of Seal Extrusion Operator? Yes Not Invoked Information not available 04/14/2024 [...] Details Recorded Time Tdap 2 completed [facility] 04/07/2024 16:26:44 Tdap 2 completed [facility] 04/07/2024 16:26:51 pneumococcal polysaccharide PPV23 2 completed [facility] Magdaleno [facility] 04/07/2024 16:27:39 SARS-COV-2 (COVID-19) vaccine, UNSPECIFIED 2 completed Helena Magdaleno [facility] 04/07/2024 16:28:08 rabies, unspecified formulation 2 completed Helena Magdaleno [facility] 04/07/2024 16:28:22 Past Encounters Encounter ID Performer Location Encounter Start Date Encounter Closed Date Diagnosis/Indication Diagnosis SNOMED-CT Code Diagnosis ICD10 Code Diagnosis IMO Codes Diagnosis Note [id number] Kyleigh Fritz NP [facility] [address] [address] 04/05/2024 11:38:58 04/11/2024 14:41:13 Hypertensive crisis 009460870 I16.9 pt send to ER for hypertensi ve crisis initially 240/135 unrelieved by lisinopril , oxycodone, and anxiety medsBP 220/122 manually 1 hours post medssend to ER for hypertensi ve crisis Headache 77284569 R51.9 pt with head going to explode feeling and HTN crisis with recent hx of surgery and cvasend to ER for evaluation call [id number] Kyleigh Fritz NP [facility] [address] [address] 04/13/2024 12:11:45 04/17/2024 20:01:07 Hypertensive emergency [id number] 36164 I16.1 felt related to pt not receiving pm meds on admission to rehab requiring nacard gtt and brief hypotensiv e episode with midodrine given felt stable on lisinopril 40 mg po dailymonit or vitals and bp Headache 20521091 R51.9 headache felt to be from hypertensi ve urgency aboveCT head no acute changes Chronic pa in following spinal surgery 8295382103 7102 G89.28 03/31-04/04 c 5-c7 acdf surgery [...] ax, senna dailywean as able Essential hypertension 07671464 I10 bp 148/98 here at 10amsee hypertensi ve emergency abovelisin opril 40 mg po dailymonit or vitals and bpcardiac diet Anxiety 37904647 F41.9 venlafaxin e 75 mg po daily(unsu re of why she is on this)hydro xyzine 50 mg po qid prn (was on bid)aripip razole 10 mg po dialymonit or and supportive care Leukocytosis 402718452 D 72.829 felt likely to medrol dose packmonito r labs weekly History of cervical discectomy 6028779321 0522501 Z98.890 recent hx of 03/31monito r neuros and fu with neuro Retention of urine 72852 4002 R33.9 hx of with chronic foleylast changed on 04/04foley careroutin e monthly changesmon itor History of hemorrhagic cerebrovascular accident with residual deficit 0883491017 20250 Z86.79 hx of stroke with residual deficitCT unremarkab leatorvast atin 20 mg po dailymonit or neuros Gastroesop hageal reflux disease 527036028 K21.9 famotidine 40 mg po dialymonit or [id number] Kiana Cassidy MD [address] [address] 04/14/2024 13:29:20 04/17/2024 20:21:04 Hypertensive emergency 8288534105 29235 I16.1 Resolved inpt. Has had recurrent issues with labile BP including other episodes of hypertensi ve emergency, but then has had soft BPs and BP meds were held or d/c'd.Diff icult to manage. Has been running borderline high since return.Saqib l add HCTZ 25 mg qdContinue lisinopril 40 mg qd.Avoid BB due to bradycardi a.Monitor BP and labs. Headache 37279621 R51.9 With hx of migraines, but recent HAs due to hypertensi ve emergencie s.Monitor for sxs. Chronic pa in following spinal surgery 2870349278 7102 G89.28 Improving slowly in this woman [...] neurosurg on 04/20 as planned. Essential hypertension 48520201 I10 As above. Anxiety 23751826 F41.1 Mood continues to be labile.Con tinue venlafaxin e 75 mg qd, aripiprazo le 10 mg qd and hydroxyzin e 50 mg qid prn.Avoid benzos.Mon itor mood.Consu lt psych prn Leukocytosis 298871110 D 72.828 Much more elevated today.Will get U/A and C&S in this woman with chronic covarrubias.Nusrat tor for signs of infection. History of cervical discectomy 1486873879 2576235 Z98.890 As above. Retention of urine 69841 4002 R33.8 Apparently long standing.W as self cathing prior to stroke, now with chronic covarrubias, last changed on 04/04Contin ue covarrubias care and monthly changesWil l get U/A and C&S as above. History of hemorrhagic cerebrovascular accident with residual deficit 7300658769 06227 I61.1 S/P hemorrhagi c CVA in 01/2024.Con tinue PT/OT as above.Cont inue atorvastat in 20 mg qd.Keep SBP <160Monito r for new neuro sxs. Gastroesop hageal reflux disease 763133213 K21.9 No current sxs.Contin ue famotidine 40 mg qdMonitor for GI sxs. [id number] ATIF MILLER NP [address] [address] 04/18/2024 14:33:47 04/21/2024 11:31:02 Hypertensive emergency [id number] 53959 I16.1 Resolved inpt. Has had recurrent issues [...] a.Monitor BP and labs closely Essential hypertension 61091286 I10 As above. Leukocytosis 511233771 D 72.828 Trending up since admission, much better today (11.3)U/A and C&S ordered 04/14, but does not appear it was done - will re-orderCB C, BMP wednesdayVSN o overt s/s infection at this time.Of note, is completing steroid taper. Headache 57545276 R51.9 With hx of migraines, but recent HAs due to hypertensi ve emergencie s.Monitor for sxs. Chronic pa in following spinal surgery 2929050540 7102 G89.28 Improving slowly in this woman [...] of hemorrhagic cerebrovascular accident with residual deficit 5247904125 15233 I61.1 S/P hemorrhagi c CVA in 01/2024.Con tinue PT/OT as above.Cont inue atorvastat in 20 mg qd.Keep SBP <160Monito r for new neuro sxs. Anxiety 46969904 F41.1 Mood continues to be labile.Con tinue venlafaxin e 75 mg qd, aripiprazo le 10 mg qd and hydroxyzin e 50 mg qid prn.Avoid benzos.Mon itor mood.Consu lt psych prn History of cervical discectomy 3117423156 4460775 Z98.890 As above. Retention of urine 43349 4002 R33.8 Apparently long standing.W as self cathing prior to stroke, now with chronic covarrubias, last changed on 04/04Contin ue covarrubias care and monthly changesWil l get U/A and C&S as above. Gastroesop hageal reflux disease 788688453 K21.9 No current sxs.Contin ue famotidine 40 mg qdMonitor for GI sxs. [id number] [facility] [address] 04/20/2024 11:26:08 04/25/2024 09:54:45 Hypertensive emergency [id number] 75367 I16.1 Resolved inpt. Has had recurrent issues [...] monitor BP and labs closely Essential hypertension 98035822 I10 As above. Leukocytosis 923511170 D 72.828 Trending up since admission, much better today (11.3)U/A and C&S ordered 04/14, finally obtained 04/19, positive UA, C&S prelim. >100K E. Coli.Plan -start Keflex 500 mg qid x 7 days plus probiotic. CBC, BMP tor VSOf note, is completing steroid taper. Headache 83710361 R51.9 With hx of migraines, but recent HAs due to hypertensi ve emergencie s.Monitor for sxs. Chronic pa in following spinal surgery 2522917558 7102 G89.28 Improving slowly in this woman [...] of hemorrhagic cerebrovascular accident with residual deficit 3278845010 23560 I61.1 S/P hemorrhagi c CVA in 01/2024.Con tinue PT/OT as above.Cont inue atorvastat in 20 mg qd.Keep SBP <160Monito r for new neuro sxs. Anxiety 11512704 F41.1 Mood continues to be labile.Con tinue venlafaxin e 75 mg qd, aripiprazo le 10 mg qd and hydroxyzin e 50 mg qid prn.Avoid benzos.Mon itor mood.Consu lt psych prn History of cervical discectomy 3029918002 4174916 Z98.890 As above. Retention of urine 81886 4002 R33.8 Apparently long standing.W as self cathing prior to stroke, now with chronic covarrubias, last changed on 04/04Contin ue covarrubias care and monthly changesTre ating UTI as above. Gastroesop hageal reflux disease 889472077 K21.9 No current sxs.Contin ue famotidine 40 mg qdMonitor for GI sxs. [id number] Kyleigh Fritz NP [address] [place] [address] 04/24/2024 13:06:36 04/27/2024 08:55:22 Hypertensive emergency 1596898055 77317 I16.1 Resolved inpt.noteH as had recurrent issues with labile BP including other episodes of hypertensi ve emergency, but then has had soft BPs and BP meds were held or d/c'd. Remains labile here, but improving in generalcon tHCTZ 25 mg po daily, hold for SBP<110lis inopril 40 mg qd.Avoid BB due to bradycardi a.Continue to monitor BP and labs closely Essential hypertension 64460184 I10 As above.Lorena ins labile here, but improving in generalcon tHCTZ 25 mg po daily, hold for SBP<110lis inopril 40 mg qd.Avoid BB due to bradycardi a.Continue to monitor BP and labs closely Leukocytosis 698554226 D 72.828 Trending down now.see above UTICBC, BMP tor VSOf note, is completing steroid taper. Chronic pa in following spinal surgery 1735436868 7102 G89.28 Improving however, still requiring meds [...] of hemorrhagic cerebrovascular accident with residual deficit 1824778629 74789 I61.1 S/P hemorrhagi c CVA in 01/2024.has had chronic covarrubias since stroke and reports attempted removal several times but is likely chronicCon tinue PT/OT as above.Cont inue atorvastat in 20 mg qd.Keep SBP <160Monito r for new neuro sxs. Anxiety 62707478 F41.1 Mood continues to be labile.Con tinuevenla faxine 75 mg qd, aripiprazo le 10 mg qd and 04/24 hydroxyzin e 50 mg qid and add 50 mg po prn q 24Avoid benzos.Mon itor mood.Consu lt psych prn History of cervical discectomy 5824648545 1293057 Z98.890 As above. Retention of urine 81860 4002 R33.8 Apparently long standing.W as self cathing prior to stroke, now with chronic covarrubias, last changed on 04/04Contin ue covarrubias care and monthly changesTre ating UTI as above. Gastroesop hageal reflux disease 231839393 K21.9 No current sxs.Contin uefamotidi ne 40 mg qdMonitor for GI sxs. Urinary tr act infectious disease 41773168 N39.0 Urine culture results show >100,000 e coli ESBL and gram neg rods pseudomona s.esbl precaution sShe was recently started on keflex 04/21-04/28. Due to resistant esbl and multi-orga nisms will04/24 dc keflex and cont probiotic start levaquin 750 mg po daily x 5 daysaugmen tin 875mg/125 mg po bid x 10 days as these are susceptibl e on culture.mo nitor [id number] ATIF MILLER NP [address] [address] 04/25/2024 10:45:23 04/27/2024 09:53:26 Urinary tract infectious disease 06247575 N39.0 Urine cx. >100,000 e coli ESBL and 50-99K Pseudomona sesbl precaution sKeflex stopped, now on levaquin 750 mg qd x 5d and Augmentin 875 mg bid x 10 d plus probiotic. CBC improvedCl inically stableMain tain fluidsTren d VS, sx. labs Leukocytosis 712117623 D 72.828 Trending down - WNRTreatin g for UTIMonitor VS, trend labsOf note, completed steroid taper. Anxiety 63594774 F41.1 Mood continues to be labile.Con tinue:Venl afaxine 75 mg qdAripipra zole 10 mg qdHydroxyz ine 50 mg qid with recent addition of 50 mg qd prnAvoid benzos.Mon itor mood and behaviorsC onsult psych prn Hypertensi ve emergency 3222989874 24000 I16.1 Hx. of labile BP with significan t highsMeds adjusted.R emains labile here, but improving in generalcon tinue:HCTZ 25 mg qd, hold for SBP<110lis inopril 40 mg qd Avoid BB due to bradycardi a.Continue to monitor BP and labs closely Essential hypertension 72867609 I10 As above.Lorena ins labile here, but improving in generalcon tHCTZ 25 mg po daily, hold for SBP<110lis inopril 40 mg qd. Avoid BB due to bradycardi a.Continue to monitor BP and labs closely Chronic pa in following spinal surgery 9007891893 7102 G89.28 Improving in general, however, still [...] of hemorrhagic cerebrovascular accident with residual deficit 5304896764 96800 I61.1 S/P hemorrhagi c CVA in 01/2024.has had chronic covarrubias since stroke and reports attempted removal several times but is likely chronicCon tinue PT/OT as above.Cont inue atorvastat in 20 mg qd.Keep SBP <160Monito r for new neuro sxs. History of cervical discectomy 2727488588 7389514 Z98.890 As above. Retention of urine 69593 4002 R33.8 Apparently long standing.W as self cathing prior to stroke, now with chronic covarrubias, last changed on 04/04Contin ue covarrubias care and monthly changesTre ating UTI as above. Gastroesop hageal reflux disease 347129929 K21.9 No current sxs.Contin uefamotidi ne 40 mg qdMonitor for GI sxs. [id number] Kyleigh Fritz NP [facility] [address] [address] 04/27/2024 09:12:38 05/03/2024 16:01:01 Chest pain 66366909 R07.9 call 911 and send to ER for acute chest pain [id number] Kyleigh Fritz NP [facility] [address] [address] 04/28/2024 16:02:42 05/03/2024 16:31:55 Urinary tract infectious disease 70644146 N39.0 Urine cx. >100,000 e coli ESBL and 50-99K Pseudomona sesbl precaution sKeflex stopped, now on levaquin 750 mg qd x 5d and Augmentin 875 mg bid x 10 d plus probiotic. CBC improvedCl inically stableMain tain fluidsTren d VS, sx. labs Leukocytosis 982873518 D 72.828 resolvedTr eating for UTIMonitor VS, trend labsOf note, completed steroid taper. Anxiety 03340420 F41.1 Mood continues to be labile.6/2 1 start buspar 10 mg po bid per psych recContinu e:Venlafax ine 75 mg qdAripipra zole 10 mg qdHydroxyz ine 50 mg qid with recent addition of 50 mg qd prnAvoid benzos.Mon itor mood and behaviorsC onsult psych prn Hypertensi ve emergency 1571637911 53334 I16.1 resolvedbp stable x last three dayscontin ue:HCTZ 25 mg qd, hold for SBP<110lis inopril 40 mg qd Avoid BB due to bradycardi a.Continue to monitor BP and labs closely Essential hypertension 24101684 I10 As above.stab le for last few daysHCTZ 25 mg po daily, hold for SBP<110lis inopril 40 mg qd.Avoid BB due to bradycardi a.Continue to monitor BP and labs closely Chronic pa in following spinal surgery 4063748619 7102 G89.28 Improving in general, however, still requiring pain medication meds (possible hx of substance abuse, likely has low pain threshold) . Had follow up with Neurosurge tarah appt, still awaiting note Continue:A PAP 975 [...] of hemorrhagic cerebrovascular accident with residual deficit 7533084266 89281 I61.1 S/P hemorrhagi c CVA in 01/2024.has had chronic covarrubias since stroke and reports attempted removal several times but is likely chronicCon tinuePT/OT as above.ator vastatin 20 mg qd.Keep SBP <160Monito r for new neuro sxs. History of cervical discectomy 1860544812 4700353 Z98.890 As above. Retention of urine 25749 4002 R33.8 Apparently long standing. with recent utiWas self cathing prior to stroke, now with chronic covarrubias, last changed on 04/04Contin ue covarrubias care and monthly changesTre ating UTI as above. [id number] [facility] [address] 05/04/2024 13:57:33 05/09/2024 10:01:55 Anxiety 25412673 F41.1 Mood continues to be labile with anxiety. start buspar 10 mg po bid per psych rec05/04 cont buspar as it is helping with anxiety and consider increasing Cont:Venla faxine 75 mg qdAripipra zole 10 mg qdHydroxyz ine 50 mg qid with recent addition of 50 mg qd prnAvoid benzos.Mon itor mood and behaviorsC onsult psych prn Urinary tr act infectious disease 24398612 N39.0 Urine cx. >100,000 e coli ESBL and 50-99K Pseudomona sesbl precaution sKeflex stopped, now on levaquin 750 mg qd x 5d and Augmentin 875 mg bid x 10 d plus probiotic. to finish todayClini pebbles stableMain tain fluidsTren d VS, sx. labs Essential hypertension 76065258 I10 stable and 132/82 todayHCTZ 25 mg po daily, hold for SBP<110lis inopril 40 mg qd.was on norvasc at home but dc'd in hospital for low bpAvoid BB due to bradycardi a.Continue to monitor BP and labs closely and for need to restart meds Chronic pa in following spinal surgery 2564970122 7102 G89.28 Improving in general, however, still [...] of hemorrhagic cerebrovascular accident with residual deficit 9921912368 51481 I61.1 S/P hemorrhagi c CVA in 01/2024.has had chronic covarrubias since stroke and reports attempted removal several times but is likely chronicCon tPT/OT as above.ator vastatin 20 mg qd.Keep SBP <160Monito r for new neuro sxs. History of cervical discectomy 9589374514 8933019 Z98.890 As above. Retention of urine 41038 4002 R33.8 Apparently long standing. with recent utiWas self cathing prior to stroke, now with chronic covarrubias, last changed on 04/04Contin ue covarrubias care and monthly changesTre ating UTI as above almost resolved [id number] Kyleigh Fritz NP [facility] [address] [place] [address] 05/05/2024 11:08:22 05/09/2024 10:26:57 Anxiety 16523312 F41.1 Mood continues to be labile with [...] and behaviorsC onsult psych prn Essential hypertension 81637651 I10 stable with labile bps at timescontH CTZ 25 mg po daily, hold for SBP<110lis inopril 40 mg qd.was on norvasc at home but dc'd in hospital for low bpAvoid BB due to bradycardi a.Continue to monitor BP and labs closely and for need to restart meds Chronic pa in following spinal surgery 1711881242 7102 G89.28 Improving in general, however, still [...] at 3pm Urinary tr act infectious disease 69221510 N39.0 denies any symptomsUr ine cx. >100,000 e coli ESBL and 50-99K Pseudomona sesbl precaution sKeflex stopped, now on levaquin 750 mg qd x 5d and Augmentin 875 mg bid x 10 d plus probiotic. completed on 05/05Clinic ally stableMain tain fluidsTren d VS, sx. labs History of hemorrhagic cerebrovascular accident with residual deficit 0121167305 59329 I61.1 S/P hemorrhagi c CVA in 01/2024.has had chronic covarrubias since stroke and reports attempted removal several times but is likely chronicCon tPT/OT as above.ator vastatin 20 mg qd.Keep SBP <160Monito r for new neuro sxs. History of cervical discectomy 3076963420 4340782 Z98.890 As above. Retention of urine 70360 4002 R33.8 Apparently long standing. with recent utiWas self cathing prior to stroke, now with chronic covarrubias, last changed on 04/04nsg to change monthlyCon tinue covarrubias care and monthly changesTre ating UTI as above almost resolved Hypertensi ve emergency 6738058195 56660 I16.1 resolved, ? related to not getting dose of lisinopril per dc summarycon tinue:HCTZ 25 mg qd, hold for SBP<110lis inopril 40 mg qdAvoid BB due to bradycardi a.Continue to monitor BP and labs closely Chest pain 48903755 R07. 9 she was sent to ER for chest pain that was ruled out and sent back to facilitymo nitor Gastroesop hageal reflux disease 870961877 K21.9 No current sxs.Contin uefamotidi ne 40 mg qdMonitor for GI sxs. Headache 47973587 R51.9 With hx of migraines, but recent HAs due to hypertensi ve emergencie s.Monitor for sxs. [id number] LILLIAN GOMEZ [address] [address] 05/08/2024 10:49:58 05/18/2024 09:55:18 Chronic pain following spinal surgery 4964393317 7102 G89.28 Improving in general, however, still [...] control.Celeste dowd has a fu with neurosurge ry on jun 21 at 3pm Anxiety 55602466 F41.1 Mood continues to be labile with anxiety.co ntinue buspar 10 mg po bid per psych reccont buspar as it is helping with anxiety and consider increasing Cont:Venla faxine 75 mg qdAripipra zole 10 mg qdHydroxyz ine 50 mg qid with recent addition of 50 mg qd prnAvoid benzos. Essential hypertension [id number] I10 contHCTZ 25 mg po daily, hold for SBP<110lis inopril 40 mg qd.was on norvasc at home but dc'd in hospital for low bpAvoid BB due to bradycardi a.Continue to monitor BP and labs closely and for need to restart meds Urinary tr act infectious disease [id number] N39.0 denies any symptomsUr ine cx. >100,000 e coli ESBL and 50-99K Pseudomona sesbl precaution scompleted abx on 05/05Clinic ally stableMain tain fluidsTren d VS, sx. labs History of hemorrhagic cerebrovascular accident with residual deficit [id number] 45287 I61.1 S/P hemorrhagi c CVA in 01/2024.has had chronic covarrubias since stroke and reports attempted removal several times but is likely chronicCon tatorvasta tin 20 mg qd.Keep SBP <160Monito r for new neuro sxs. History of cervical discectomy [id number] Z98.890 As above. Retention of urine [id number] 4002 R33.8 Apparently long standing. with recent utiWas self cathing prior to stroke, now with chronic covarrubias, last changed on 04/04nsg to change monthlyCon tinue covarrubias care and monthly changesTre ating UTI as above almost resolvedfo olow up out patient with urology- patient will make appt. Gastroesop hageal reflux disease [id number] K21.9 No current sxs.Contin uefamotidi ne 40 mg qdMonitor for GI sxs. Health Concerns Section Related Observation LastModified by Organization Detai ls LastModified Time None Recorded Concern Status LastModified by Organization Details LastModified Time None Recorded Advance Directives Directive Y: Payers Insurance Date Sequence Insurance Name Policy Number Policy Alanis Covered Member ID Alanis Member ID Guarantor Name 05/08/2024 1 [place] [facility] Cheryl Garcia [id number] Cheryl Garcia Notes Date Note Type Note [...] since 02/03/24 when she was admitted to [facility] for an acute CVA. recent spinal [...] my health and want to go to [facility] . 911 called and pt seen to ER promptly. Of note: She is currently on antibiotics for UTI until 05/04, due to final C&S results (>100K E. Coli ESBL and 50-99K Pseudomonas) change required, now on levaquin and Augmentin to cover these orgs. Chronic covarrubias remains in place, qs yellow urine. Kyleigh Fritz NP [address], [address], [place], [address], [facility] - [facility] 04/27/2024 10:02:54 04/28/2024 text/html Cheryl [...] since 02/03/24 when she was admitted to [facility] for an acute CVA and sp spinal surgery fusion. She is seen today by psychological aide recommending buspar 10 mg po bid for her anxiety. 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 No other concerns per nursing. Kyleigh Fritz, DIAMOND [address], [address], [place], [address], [facility] 04/28/2024 16:12:43 05/04/2024 text/html Cheryl is seen today for an acute visit. Her PMH includes HTN-very labile, HLD, migraines, anxiety/depression, chronic urinary retention with indwelling covarrubias, and s/p CVA right basal ganglia hemorrhagic stroke in 01/2024. Cheryl is a 58 yo woman who is here for rehab after a series of hospitalizations and rehab stays since 02/03/24 when she was admitted to [facility] for an acute CVA and sp spinal surgery fusion here at [facility] for acute rehab. She remains on antibiotics [...] flights of ideas. Kyleigh Fritz, DIAMOND [address], [address], [place], [address], [facility] - [employer] 05/04/2024 14:58:17 05/05/2024 text/html Cheryl is seen [...] female with hx above initially presented to [facility] ER from rehab with co neck pain radiating to her right upper extremity with paresthesias felt per neurosurgery symptoms from postoperative nerve root inflammation discharged to rehab on 04/04 and returned to [facility] ER on 04/05-04/12 for hypertensive urgency, [...] right internal capsule thalmic hemorrhage Since at [facility]: On 04/27 she was sent to Er for chest pain and ruled out for acute concern and sent back to rehab shortly after. She was seen by psychological aide on 04/28 and started on buspar 10 [...] is sitting in the activity room in [facility]. She dose have a mild outburst at another resident to get away as she felt he was too close and then she settles down. Residents were at that time. She denies any other concerns today. Her weight is 191 lbs which is approx to 190 lbs on admission. DOMENICO full code, signed 04/13/24 Kyleigh Fritz, DIAMOND [address], [address], [place], [address], [place] - [employer] 05/05/2024 11:33:54 05/08/2024 text/html ROS as noted [...] female with hx above initially presented to [facility] ER from rehab with co neck pain radiating to her right upper extremity with paresthesias felt per neurosurgery symptoms from postoperative nerve root inflammation discharged to rehab on 04/04 and returned to [facility] ER on 04/05-04/12 for hypertensive urgency, [...] right internal capsule thalmic hemorrhage Since at [facility]: On 04/27 she was sent to Er for chest pain and ruled out for acute concern and sent back to rehab shortly after. She was seen by psychological aide on 04/28 and started on buspar 10 [...] be receiving home health care service with [facility] and referral was also made to [facility] for additional homemaking, personal care and CALL CENTER ASSISTANT services. Lux has a follow up appointment with her PCP on 05/23/24. LILLIAN GOMEZ [address], [address], [place], [address], [facility] - [facility] 05/08/2024 13:35:11 OBGyn Episode No OBEpisode recorded.
--- OUTSIDE RECORDS SUMMARY | 2025-09-30 15:28 | XMS_ITS | Encounter Summary ---
Author Organization [employer] Address [address] [place] [address] 7 [place] [address] Care Team Providers Care Middleware Consultant Name Role Phone Aliza Paul DO Primary Care Provider Lesley Ingram Unavailable Rosi Castro RN Unavailable Unavailable Rosi Castro RN Unavailable Unavailable Lesley Ingram Unavailable Rocio Ingram RN Unavailable [phone] Kathrine Blank Unavailable Reason for Visit * Reason Onset Date Comments PT-1 10/19/2024 Encounter Details Date Type Department Care Team (Late st Contact Info) Description 10/19/2024 Telephone [facility] MEDICINE 230 [place], [place] [phone] Aliza Paul DO 230 [place], [place] [phone] PT-1 Social History Tobacco Use Types Packs/Day [...] Y/N: Yes Provider name or facility name: [facility] Facility Address: [address] [place] [address] Escort needed: Y/N: Yes Do you have a wheelchair: Y/N: Yes If yes- Manual or electric: Sathish Visits: Once a month - Patient calling requesting PT1 Home Address verified: Y/N: Yes Provider name or facility name: [facility] Facility Address: [address] [place] [address] Escort needed: Y/N: Yes Do you have [...] documented as of this encounter Care Teams Middleware Consultant Relationship Specialty Start Date End Date Aliza Paul DO [address] [place] [address] PCP - General Family Medicine 02/23/12 Lesley Ingram Community Health Worker 05/17/24 Rosi Castro, RICHARDSON Graduate Student Instructor 05/17/24 03/05/25 Rosi Castro RN Registered Nurse Family Medicine 04/06/25 04/10/25 Lesley Ingram 04/06/25 04/10/25 Rocio Ingram RN [address] [place] [address] Registered Nurse Family Medicine 04/19/25 Kathrine Blank 04/19/25 [facility] 07/27/24 05/28/25 [facility] 05/29/25 documented as of this encounter
--- OUTSIDE RECORDS SUMMARY | 2025-09-30 15:28 | XMS_ITS | Encounter Summary ---
Author Organization [email or web address] Address [address] [place] [address] 7t [place] [address] Care Team Providers Care Ic Designer Custom Name Role Phone Aliza Paul DO Primary Care Provider Lesley Ingram Unavailable Rosi Castro RN Unavailable Unavailable Rosi Castro RN Unavailable Unavailable Lesley Ingram Unavailable Rocio Ingram RN Unavailable [phone] Kathrine Blank Unavailable Reason for Visit * Reason Comments Med Refill Encounter Details Date Type Department Care Team (Late st Contact Info) Description 07/01/2024 Refill [facility] MEDICINE 230 [place], [place] [phone] Aliza Paul DO 230 [place], [place] [phone] Other chronic pain Social History Tobacco Use [...] documented as of this encounter Care Teams Ic Designer Custom Relationship Specialty Start Date End Date Aliza Paul DO [address] [place] [address] PCP - General Family Medicine 02/23/12 Lesley Ingram Community Health Worker 05/17/24 Rosi Castro RN Credit Assistant 05/17/24 03/05/25 Rosi Csatro RN Registered Nurse Family Medicine 04/06/25 04/10/25 Lesley Ingram 04/06/25 04/10/25 Rocio Ingram RN [address] [place] [address] Registered Nurse Family Medicine 04/19/25 Kathrine Blank 04/19/25 [facility] 07/27/24 05/28/25 [facility] 05/29/25 documented as of this encounter
--- OUTSIDE RECORDS SUMMARY | 2025-09-30 15:28 | XMS_ITS | Encounter Summary ---
Author Organization [employer] Address [address] [place] [address] 7 [place] [address] Care Team Providers Care Page Technician Name Role Phone Aliza Paul DO Primary Care Provider [phone] Lesley Ingram Unavailable Rosi Castro RN Unavailable Unavailable oRsi Castro RN Unavailable Unavailable Lesley Ingram Unavailable Rocio Ingram RN Unavailable [phone] Kathrine Blank Unavailable Encounter Details Date Type Department Care Team (Late st Contact Info) Description 05/18/2024 Telephone [facility] MEDICINE 230 [place], [place] [phone] Aliza Paul DO 230 [place], [place] [phone] Social History Tobacco Use Types Packs/Day Years [...] documented as of this encounter Care Teams Page Technician Relationship Specialty Start Date End Date Aliza Paul DO [address] [place] [address] PCP - General Family Medicine 02/23/12 Lesley Ingram Community Health Worker 05/17/24 Rosi Castro RN Float Tender 05/17/24 03/05/25 Rosi Castro RN Registered Nurse Family Medicine 04/06/25 04/10/25 Lesley Ingram 04/06/25 04/10/25 Rocio Ingram RN [address] [place] [address] Registered Nurse Family Medicine 04/19/25 Kathrine Blank 04/19/25 [facility] 07/27/24 05/28/25 [facility] 05/29/25 documented as of this encounter
--- OUTSIDE RECORDS SUMMARY | 2025-09-30 15:28 | XMS_ITS | Encounter Summary ---
Author Organization [employer] Address [address] [place] [address] 7t [place] [address] Care Team Providers Care Sap Abap Programmer Name Role Phone Aliza Paul DO Primary Care Provider Lesley Ingram Unavailable Rosi Castro RN Unavailable Unavailable Rosi Castro RN Unavailable Unavailable Lesley Ingram Unavailable Rocio Ingram RN Unavailable Kathrine Blank Unavailable Encounter Details Date Type Department Care Team (Late st Contact Info) Description 11/04/2022 Orders Only [facility] 230 [place], [place] [phone] Aliza Paul DO 230 [place] [address] Social History Tobacco Use Types Packs/Day Years [...] on filedocumented in this encounter Care Teams Sap Abap Programmer Relationship Specialty Start Date End Date Aliza Paul DO [address] [place] [address] PCP - General Family Medicine 02/23/12 Lesley Ingram Community Health Worker 05/17/24 Rosi Castro, RICHARDSON Hardwood Floor Refinisher 05/17/24 03/05/25 Rosi Castro RN Registered Nurse Family Medicine 04/06/25 04/10/25 Lesley Ingram 04/06/25 04/10/25 Rocio Ingram RN [address] [place] [address] Registered Nurse Family Medicine 04/19/25 Kathrine Blank 04/19/25 [facility] 07/27/24 05/28/25 [facility] 05/29/25 documented as of this encounter
--- OUTSIDE RECORDS SUMMARY | 2025-09-30 15:28 | XMS_ITS | Encounter Summary ---
Author Organization [employer] Address [address] [place] [address] 7t [place] [address] Care Team Providers Care Shroud Line Tier Name Role Phone Aliza Paul DO Primary Care Provider [phone] Lesley Ingram Unavailable Rosi Castro RN Unavailable Unavailable Rosi Castro RN Unavailable Unavailable Lesley Ingram Unavailable Rocio Ingram RN Unavailable [phone] Kathrine Blank Unavailable Reason for Visit * Reason Comments Med Refill Encounter Details Date Type Department Care Team (Late st Contact Info) Description 10/19/2024 Refill [facility] MEDICINE 230 [place], [place] [phone] Aliza Paul DO 230 [place], [place] [phone] Other chronic pain Social History Tobacco Use [...] documented as of this encounter Care Teams Shroud Line Tier Relationship Specialty Start Date End Date Aliza Paul DO [address] [place] [address] PCP - General Family Medicine 02/23/12 Lesley Ingram Community Health Worker 05/17/24 Rosi Castro RN Proposal Analyst 05/17/24 03/05/25 Rosi Castro RN Registered Nurse Family Medicine 04/06/25 04/10/25 Lesley Ingram 04/06/25 04/10/25 Rocio Ingram RN [address] [place] [address] Registered Nurse Family Medicine 04/19/25 Kathrine Blank 04/19/25 [facility] 07/27/24 05/28/25 [facility] 05/29/25 documented as of this encounter
--- OUTSIDE RECORDS SUMMARY | 2025-09-30 15:28 | XMS_ITS | Encounter Summary ---
Author Organization [employer] Address [address] [place] [address] 7 [place] [address] Care Team Providers Care Dispatch Manager Name Role Phone Aliza Paul DO Primary Care Provider Lesley Ingram Unavailable Rosi Castro RN Unavailable Unavailable Rosi Castro RN Unavailable Unavailable Lesley Ingram Unavailable Rocio Ingram RN Unavailable [phone] Kathrine Blank Unavailable Reason for Visit * Reason Onset Date Comments FYI 05/15/2024 Encounter Details Date Type Department Care Team (Late st Contact Info) Description 05/15/2024 Telephone [facility] MEDICINE 230 [place], [place] [phone] Aliza Paul DO 230 [place], [place] [phone] Social History Tobacco Use Types Packs/Day Years [...] be receiving home health care service with [facility] and referral was also made to [facility] for additional homemaking, personal care and 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 Pt. Declined services. FYI for HDF 05/23/24 * Telephone Encounter - Timoteo Blank - 05/15/2024 1:04 PM EDT Tc from Karlie with [facility] calling to inform they were unable to admit pt into services, Karlie stated they managed to get in contact with pt but pt gave another excuse on why she wasn't able to accept services. If any questions you can contact Karlie at [phone]. documented in this encounter Plan of Treatment Not on file documented as of this encounter Visit Diagnoses Not on filedocumented in this encounter Additional Health Concerns Assessment Noted Time PHQ-9 Depression Total Score: 4 03/09/20 24 9:14 AM EDT documented as of this encounter Care Teams Dispatch Manager Relationship Specialty Start Date End Date Aliza Paul DO [address] [place] [address] PCP - General Family Medicine 02/23/12 Lesley Ingram Community Health Worker 05/17/24 Rosi Castro, RICHARDSON Area Loss Prevention Manager 05/17/24 03/05/25 Rosi Castro RN Registered Nurse Family Medicine 04/06/25 04/10/25 Lesley Ingram 04/06/25 04/10/25 Rocio Ingram RN [address] [place] [address] Registered Nurse Family Medicine 04/19/25 Kathrine Blank 04/19/25 [facility] 07/27/24 05/28/25 [facility] 05/29/25 documented as of this encounter
--- OUTSIDE RECORDS SUMMARY | 2025-09-30 15:29 | XMS_ITS | Encounter Summary ---
Author Organization [facility] Address [address] [place] [address] Care Team Providers Care Live In Companion Name Role Phone Aliza Paul DO Primary Care Provider [phone] Encounter Details Date Type Department Care Team (Late st Contact Info) Description 09/29/2024 Lab Requisition [facility] - Main Lab [address] [facility] [place] [address] Aliza Paul DO 230 [place], [place] Urinary tract infection, site not specified [...] mirabilis(A ) OFELIA 10/01/2024 9:03 AM EST [facility] Comment: Edited result: Previously reported as Proteus species on 09/30/2024 at 1159 EST. Urine Urine specimen from urinary conduit / Unknown 09/29/2024 3:30 PM EST 09/29/2024 6:23 PM EST N[facility]ative [facility] - 10/01/2024 9:03 AM EST [...] LAB MICROBIOLOGY - GENERAL ORDERABLES Final Result [facility] [address] [place] [address], documented in this encounter Visit Diagnoses Diagnosis Urinary tract infection, site not specified documented in this encounter Care Teams Live In Companion Relationship Specialty Start Date End Date Aliza Paul DO [address] [place] [address] PCP - General Family Medicine 10/04/24 documented as of this encounter
--- OUTSIDE RECORDS SUMMARY | 2025-09-30 15:29 | XMS_ITS | Encounter Summary ---
Author Organization [employer] Address [address] [place] [address] 7t [place] [address] Care Team Providers Care Contract Design Agent Name Role Phone Aliza Paul DO Primary Care Provider [phone] Lesley Ingram Unavailable Rocio Ingram RN Unavailable [phone] Kathrine Blank Unavailable Reason for Visit * Reason Comments Med Refill Encounter Details Date Type Department Care Team ([facility] st Contact Info) Description 09/25/2025 Refill [facility] MED & PEDS [address] [place] [address] Aliza Paul DO 230 [place] [address] Social History Tobacco Use Types Packs/Day Years [...] documented as of this encounter Care Teams Contract Design Agent Relationship Specialty Start Date End Date Aliza Paul DO 230 [place] [address] PCP - General Family Medicine 02/23/12 Lesley Ingram Community Health Worker 05/17/24 Rocio Ingram, RICHARDSON [address] [place] [address] Registered Nurse Family Medicine 04/19/25 Kathrine Blank 04/19/25 [facility] 05/29/25 documented as of this encounter
--- OUTSIDE RECORDS SUMMARY | 2025-09-30 15:29 | XMS_ITS | Encounter Summary ---
Author Organization [employer] Address [address] [place] [address] 7 [place] [address] Care Team Providers Care Barrel Loader Name Role Phone Aliza Paul DO Primary Care Provider [phone] Lesley Ingram Unavailable Rosi Castro RN Unavailable Unavailable Rosi Castro RN Unavailable Unavailable Lesley Ingram Unavailable Rocio Ingram RN Unavailable [phone] Kathrine Blank Unavailable Reason for Visit * Reason Onset Date Comments PT1 12/12/2024 Encounter Details Date Type Department Care Team (Late st Contact Info) Description 12/12/[address] [facility] MEDICINE 230 [place], [place] [phone] Aliza Paul DO 230 [place], [place] [phone] PT1 Social History Tobacco Use Types Packs/Day [...] Y/N: Yes Provider name or facility name: [facility] Facility Address: [address] [place] [address] Escort needed: Y/N: Yes Do you have [...] as of this encounter Care Teams Barrel Loader Relationship Specialty Start Date End Date Aliza Paul DO [address] [place] [address] PCP - General Family Medicine 02/23/12 Lesley Ingram Community Health Worker 05/17/24 Rosi Castro, RN Policy Advisor 05/17/24 03/05/25 Rosi Castro, RICHARDSON Registered Nurse Family Medicine 04/06/25 04/10/25 Lesley Ingram 04/06/25 04/10/25 Rocio Ingram RN [address] [place] [address] [place] [address] Registered Nurse Family Medicine 04/19/25 Kathrine Blank 04/19/25 [facility] 07/27/24 05/28/25 [facility] 05/29/25 documented as of this encounter
--- OUTSIDE RECORDS SUMMARY | 2025-09-30 15:29 | XMS_ITS | Encounter Summary ---
Author Organization [employer] Address [address] [place] [address] 7t [place] [address] Care Team Providers Care Project Development Director Name Role Phone Aliza Paul DO Primary Care Provider [phone] Lesley Ingram Unavailable Rosi Castro RN Unavailable Unavailable Rosi Castro RN Unavailable Unavailable Lesley Ingram Unavailable Rocio Ingram RN Unavailable [phone] Kathrine Blank Unavailable Reason for Visit * Reason Comments Med Refill Encounter Details Date Type Department Care Team (Late st Contact Info) Description 12/27/2024 Refill [facility] MEDICINE 230 [place], [place] [phone] Aliza Paul DO 230 [place], [place] [phone] Other chronic pain Social History Tobacco Use [...] as of this encounter Care Teams Project Development Director Relationship Specialty Start Date End Date Aliza Paul DO [address] [place] [address] PCP - General Family Medicine 02/23/12 Lesley Ingram Community Health Worker 05/17/24 Rosi Castro RN Inside Polisher 05/17/24 03/05/25 Rosi Castro RN Registered Nurse Family Medicine 04/06/25 04/10/25 Lesley Ingram 04/06/25 04/10/25 Rocio Ingram RN [address] [place] [address] Registered Nurse Family Medicine 04/19/25 Kathrine Blank 04/19/25 [facility] 07/27/24 05/28/25 [facility] 05/29/25 documented as of this encounter
--- OUTSIDE RECORDS SUMMARY | 2025-09-30 15:29 | XMS_ITS | Encounter Summary ---
Author Organization [email or web address] Address [address] [place] [address] 7t [place] [address] Care Team Providers Care Integration Consultant Name Role Phone Aliza Paul DO Primary Care Provider [phone] Lesley Ingram Unavailable Rocio Ingram RN Unavailable [phone] Kathrine Blank Unavailable Encounter Details Date Type Department Care Team (Late st Contact Info) Description 09/25/2025 Refill [facility] MEDICINE [address] [place], [place] [phone] Rosmery Jacob, RN [address] [place], [place] [phone] Polyarthralgia Social History Tobacco Use Types Packs/Day Years [...] Telephone Encounter - Rosmery Jacob RN - 09/25/2025 3:15 PM EST Transition of Care Note Cheryl is going through a recent transition of care. Hospital Discharges and Admission for [facility] Type of Visit: Emergency Department Date of Admission/Visit: 09/19/25 Date of Discharge: 09/19/25 Facility: [facility] Diagnosis: Generalized muscle weakness Disposition: Discharged Home Follow-Up Actions Follow-Up Needed: None/self-monitoring Follow-Up Outcome: Spoke to Patient Initial Contact Date: 09/25/25 The full discharge summary is available on [facility]. Recent Visits Date Type Provider Dept 05/15/25 Office Visit Taylor Rendon NP [facility] Medicine 04/20/25 Office Visit Aliza Paul DO [facility] Medicine 02/02/25 Office Visit Moira Rice MD [facility] Medicine 09/07/24 Office Visit Delmis Cat MD [facility] Medicine 05/23/24 Office Visit Aliza Paul DO [facility] Medicine Showing recent visits within past 540 days with a meds authorizing provider and meeting all other requirements Future Appointments No visits were found meeting these conditions. Showing future appointments within next 150 days with a meds authorizing provider and meeting all other requirements Noted pt. Seen at [facility] ED 09/19 for dysphagia, worsening joint pain and subjective change in speech.Head CT WNL. Pt. Diagnosis generalized muscle weakness. No new meds prescribed. TC placed to pt. Pt. Reports symptoms have not recurred and she is feeling well. Pt. Reports she isexperiencing some difficulty chewing, inquired if she felt like this was an issue with her jaw or an issue swallowing and pt. Yelled I don't know ma'am, I just woke up! I'm fine! . Pt. Did not further consent to proceed with ENGINE REPAIR SUPERVISOR telehealth visit. Pt. Then requested refill of gabapentin and there is 1 refill remaining. However pt. Reports she used to take 3 capsules tid, and now she only takes one (400mg). Advised pt. I can request Dr. Kamara increase dose to 600mg tid. Per further chart review pt. Actually used to be on 900mg tid. Pt. Reports she has a lot of body aches and agrees to plan. * Telephone Encounter - Rosmery Jacob RN - 09/25/2025 3:13 PM EST ----- Message from Nurse Delmy Munoz sent at 09/25/2025 2:30 PM EST ----- Regarding: ED RN telehealth follow up Transition of Care Note Cheryl Garcia is going through a recent transition of care. Emergency Room Visit Date: 09/19/25 Facility: [facility] Diagnosis: R/O stroke Disposition: Discharged home Discharge summary in the chart: Yes Please contact for a telehealth RN visit documented in this encounter Plan of Treatment Not on file documented as of this encounter Visit Diagnoses Diagnosis Polyarthralgia Pain in joint, multiple sites documented in this encounter Additional Health Concerns Assessment Noted Time PHQ-9 Depression Total Score: 15 024 9:20 AM EDT documented as of this encounter Care Teams Integration Consultant Relationship Specialty Start Date End Date Aliza Paul DO [address] [place] [address] PCP - General Family Medicine 02/23/12 Lesley Ingram Community Health Worker 05/17/24 Rocio Ingram, RN [address] [place] [address] Registered Nurse Family Medicine 04/19/25 Kathrine Blank 04/19/25 [facility] 05/29/25 documented as of this encounter
--- OUTSIDE RECORDS SUMMARY | 2025-09-30 15:29 | XMS_ITS | Encounter Summary ---
Author Organization [email or web address] Address [address] [place] [address] 7 [place] [address] Care Team Providers Care Senior Sql Dba Name Role Phone Aliza Paul DO Primary Care Provider [phone] Lesley Ingram Unavailable Rosi Castro RN Unavailable Unavailable Rosi Castro RN Unavailable Unavailable Lesley Ingram Unavailable Rocio Ingram RN Unavailable Kathrine Blank Unavailable Reason for Visit * Reason Onset Date Comments FYI 08/14/2024 Encounter Details Date Type Department Care Team (Late st Contact Info) Description 08/14/2024 Telephone [facility] MEDICINE [address] [place], [place] [phone] Aliza Paul DO [address] [place], [place] [phone] FYI Social History Tobacco Use Types Packs/Day [...] and was going to be transported to [facility] for shortness of breath. documented in this encounter Plan of Treatment Not on file documented as of this encounter Visit Diagnoses Not on filedocumented in this encounter Additional Health Concerns Assessment Noted Time PHQ-9 Depression Total Score: 4 03/09/20 24 9:14 AM EDT documented as of this encounter Care Teams Senior Sql Dba Relationship Specialty Start Date End Date Aliza Paul DO [address] [place] [address] PCP - General Family Medicine 02/23/12 Lesley Ingram Community Health Worker 05/17/24 Rosi Castro RN Wood Molder 05/17/24 03/05/25 Rosi Castro RN Registered Nurse Family Medicine 04/06/25 04/10/25 Lesley Ingram 04/06/25 04/10/25 Rocio Ingram RN [address] [place] [address] Registered Nurse Family Medicine 04/19/25 Kathrine Blank 04/19/[address] [facility] 07/27/24 05/28/25 [facility] 05/29/25 documented as of this encounter
--- OUTSIDE RECORDS SUMMARY | 2025-09-30 15:29 | XMS_ITS | Clinical Summary ---
Author Organization [facility] Address [address] [place] [address] Phone Care Team Providers Care Home Health Lvn Name Role Phone Aliza Paul DO Primary Care Provider [phone] Social History Tobacco Use Types Packs/Day Years [...] topic Insurance MEDICAID - [place] Care Teams Home Health Lvn Relationship Specialty Start Date End Date Aliza Paul DO [address] [place] [address] PCP - General Family Medicine 10/04/24
--- OUTSIDE RECORDS SUMMARY | 2025-09-30 15:29 | XMS_ITS | Encounter Summary ---
Author Organization [employer] Address [address] [place] [address] 7t [place] [address] Care Team Providers Care Pan Shover Name Role Phone Aliza Paul DO Primary Care Provider [phone] Lesley Ingram Unavailable Rosi Castro RN Unavailable Unavailable Rosi Castro RN Unavailable Unavailable Lesley Ingram Unavailable Rocio Ingram RN Unavailable [phone] Kathrine Blank Unavailable Reason for Visit * Reason Comments Med Refill Encounter Details Date Type Department Care Team (Late st Contact Info) Description 09/29/2024 Refill [facility] MEDICINE [address] [place], [place] [phone] Aliza Paul DO [address] [place], [place] [phone] Closed supracondylar fracture of right humerus with [...] as of this encounter Care Teams Pan Shover Relationship Specialty Start Date End Date Aliza Paul DO [address] [place] [address] PCP - General Family Medicine 02/23/12 Lesley Ingram Community Health Worker 05/17/24 Rosi Castro RN Recreation Specialist 05/17/24 03/05/25 Rosi Castro RN Registered Nurse Family Medicine 04/06/25 04/10/25 Lesley Ingram 04/06/25 04/10/25 Rocio Ingram RN [address] [place] [address] Registered Nurse Family Medicine 04/19/25 Kathrine Blank 04/19/25 [facility] 07/27/24 05/28/25 [facility] 05/29/25 documented as of this encounter
--- OUTSIDE RECORDS SUMMARY | 2025-09-30 15:29 | XMS_ITS ---
Author Organization [employer] Address [address] [place] [address] 7t [place] [address] Care Team Providers Care Painter Railroad Car Name Role Phone Aliza Paul DO Primary Care Provider [phone] Lesley Ingram Unavailable Rocio Ingram RN Unavailable [phone] Kathrine Blank Unavailable CM Complex Status:Outreach In Progress (Enrolling) Start date:04/19/2025 Enrollment reason:ADT Feed Overview ADT-[facility] ED 04/18/25 Case Team Name Relationship Phone Rocio Ingram RN(Responsible Staff) Registered Nurse [phone] Continued Care and Services Coordination
--- OUTSIDE RECORDS SUMMARY | 2025-09-30 15:29 | XMS_ITS | Encounter Summary ---
Author Organization [employer] Address [address] [place] [address] 7 [place] [address] Care Team Providers Care Sectionizer Name Role Phone Aliza Paul DO Primary Care Provider Lesley Ingram Unavailable Rosi Castro RN Unavailable Unavailable Rosi Castro RN Unavailable Unavailable Lesley Ingram Unavailable Rocio Ingram RN Unavailable [phone] Kathrine Blank Unavailable Reason for Visit * Reason Onset Date Comments PT-1 12/11/2024 Encounter Details Date Type Department Care Team (Late st Contact Info) Description 12/11/2024 Telephone [facility] MEDICINE [address] [place], [place] [phone] Aliza Paul DO [address] [place], [place] [phone] PT-1 Social History Tobacco Use Types Packs/Day [...] Y/N: Yes Provider name or facility name: [address] [place] [address], [address], [place] [address] Urology [facility] Orthopedic [address] [place] [address] Escort needed: Y/N: Yes Do you have [...] documented as of this encounter Care Teams Sectionizer Relationship Specialty Start Date End Date Aliza Paul DO [address] [place] [address] PCP - General Family Medicine 02/23/12 Lesley Ingram Community Health Worker 05/17/24 Rosi Castro, RN Blast Furnace Keeper 05/17/24 03/05/25 Rosi Castro, RN Registered Nurse Family Medicine 04/06/25 04/10/25 Lesley Ingram 04/06/25 04/10/25 Rocio Ingram RN [address] [place] [address] Registered Nurse Family Medicine 04/19/25 Kathrine Blank 04/19/25 [facility] 07/27/24 05/28/25 [facility] 05/29/25 documented as of this encounter
--- OUTSIDE RECORDS SUMMARY | 2025-09-30 15:29 | XMS_ITS | Encounter Summary ---
Author Organization [employer] Address [address] [place] [address] 7t [place] [address] Care Team Providers Care Truck Driver Helper Name Role Phone Aliza Paul DO Primary Care Provider Lesley Ingram Unavailable Rosi Castro RN Unavailable Unavailable Rosi Castro RN Unavailable Unavailable Lesley Ingram Unavailable Rocio Ingram RN Unavailable [phone] Kathrine Blank Unavailable Reason for Visit * Reason Comments Med Refill Encounter Details Date Type Department Care Team (Late st Contact Info) Description 08/18/2024 Refill [facility] MEDICINE [address] [place], [place] [phone] Aliza Paul DO [address] [place], [place] [phone] Closed supracondylar fracture of right humerus with [...] as of this encounter Care Teams Truck Driver Helper Relationship Specialty Start Date End Date Aliza Paul DO [address] [place] [address] PCP - General Family Medicine 02/23/12 Lesley Ingram Community Health Worker 05/17/24 Rosi Castro, RN Nuclear Technologist 05/17/24 03/05/25 Rosi Castro RN Registered Nurse Family Medicine 04/06/25 04/10/25 Lesley Ingram 04/06/25 04/10/25 Rocio Ingram RN [address] [place] [address] Registered Nurse Family Medicine 04/19/25 Kathrine Blank 04/19/25 [facility] 07/27/24 05/28/25 [facility] 05/29/25 documented as of this encounter
--- OUTSIDE RECORDS SUMMARY | 2025-09-30 15:29 | XMS_ITS | Encounter Summary ---
Author Organization [employer] Address [address] [place] [address] 7t [place] [address] Care Team Providers Care Property Damage Claims Adjustor Name Role Phone Aliza Paul DO Primary Care Provider [phone] Lesley Ingram Unavailable Rosi Castro RN Unavailable Unavailable Rosi Castro RN Unavailable Unavailable Lesley Ingram Unavailable Rocio Ingram RN Unavailable [phone] Kathrine Blank Unavailable Reason for Visit * Reason Onset Date Comments Nurse Triage 09/13/2024 Encounter Details Date Type Department Care Team (Late st Contact Info) Description 09/13/2024 Telephone [facility] MEDICINE [address] [place], [place] [phone] Aliza Paul DO [address] [place], [place] [phone] Nurse Triage Social History Tobacco Use Types [...] the past 12 months, has t he [employer], gas, oil or water [employer] threatened to shut off services in your [...] now. Pt is offered to come to [facility] which is open till 8pm today but, doesn't have transportation. Pt reports will come tomorrow to [facility] open 830am -400pm. Pt requests an uber ride for tomorrow. Uber is scheduled for 1155am sweet pickled fruit maker at Pt address for tomorrow. Pt [...] were negative * Telephone Encounter - Katyaondina oCrtes - 09/13/2024 2:19 PM EST Symptom: Urination [...] as of this encounter Care Teams Property Damage Claims Adjustor Relationship Specialty Start Date End Date Aliza Paul DO [address] [place] [address] PCP - General Family Medicine 02/23/12 Lesley Ingram Community Health Worker 05/17/24 Rosi Castro RN Plant Buyer 05/17/24 03/05/25 Rosi Castro RN Registered Nurse Family Medicine 04/06/25 04/10/25 Lesley Ingram 04/06/25 04/10/25 Rocio Ingram RN [address] [place] [address] Registered Nurse Family Medicine 04/19/25 Kathrine Blank 04/19/25 [facility] 07/27/24 05/28/25 [facility] 05/29/25 documented as of this encounter
--- OUTSIDE RECORDS SUMMARY | 2025-09-30 15:29 | XMS_ITS | Encounter Summary ---
Author Organization [employer] Address [address] [place] [address] 7t [place] [address] Care Team Providers Care Driver Wheelchair Name Role Phone Aliza Paul DO Primary Care Provider [phone] Lesley Ingram Unavailable Rosi Castro RN Unavailable Unavailable Rosi Castro RN Unavailable Unavailable Lesley Ingram Unavailable Rocio Ingram RN Unavailable [phone] Kathrine Blank Unavailable Reason for Visit * Reason Comments Med Refill Encounter Details Date Type Department Care Team (Late st Contact Info) Description 10/29/2023 Refill [facility] MEDICINE [address] [place], [place] [phone] Aliza Paul DO [address] [place], [place] [phone] Social History Tobacco Use Types Packs/Day Years [...] on filedocumented in this encounter Care Teams Driver Wheelchair Relationship Specialty Start Date End Date Aliza Paul DO [address] [place] [address] PCP - General Family Medicine 02/23/12 Lesley Ingram Community Health Worker 05/17/24 Rosi Castro RN Contractor General Building 05/17/24 03/05/25 Rosi Castro RN Registered Nurse Family Medicine 04/06/25 04/10/25 Lesley Ingram 04/06/25 04/10/25 Rocio Ingram RN [address] [place] [address] Registered Nurse Family Medicine 04/19/25 Kathrine Blank 04/19/25 [facility] 07/27/24 05/28/25 [facility] 05/29/25 documented as of this encounter
--- OUTSIDE RECORDS SUMMARY | 2025-09-30 15:29 | XMS_ITS ---
Author Organization [employer] Address [address] [place] [address] 7t [place] [address] Care Team Providers Care Dental Cream Maker Name Role Phone Aliza Paul DO Primary Care Provider Lesley Ingram Unavailable Rocio Ingram RN Unavailable [phone] Kathrine Blank Unavailable CHW Complex Status:Outreach In Progress (Enrolling) Start date:04/19/2025 Enrollment reason:ADT Feed Overview ADT-[facility] ED 04/18/25. Please outreach for enrollment. Case Team Name Relationship Phone Kathrine Blank(Responsible Staff) [phone] Continued Care and Services Coordination
--- OUTSIDE RECORDS SUMMARY | 2025-09-30 15:29 | XMS_ITS | Clinical Summary ---
Author Organization [employer] Address [address] [place] [address] 7t [place] [address] Care Team Providers Care Bail Attacher Name Role Phone Aliza Paul DO Primary Care Provider Lesley Ingram Unavailable Rocio Ingram RN Unavailable [phone] Kathrine Blank Unavailable Allergies No known [...] HOURS DIRECTED FOR PAIN. 60 patch 3 5 8:21 AM EST 03/09/20 25 Active cetirizine (ZyrTEC) 10 MG tablet [...] DAILY 90 capsule 1 08/27/20 25 Active Diclofenac Sodium 1 % gel APPLY 2 GRAM'S TO AFFECTED AREA(s) TWICE DAILY NEEDED 100 g 3 09/26/20 25 Active gabapentin (Neurontin) 600 MG tabletIndication s:Polyarthralgia Take 1 tablet (600 mg) by mouth 3 times daily. 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 Assessment & Plan (06/21/2025 3:55 PM EDT): Referral to eye care, supportive measures reviewed Hemorrhoids 02/02/2025 Anxiety with depression 02/02/2025 Assessment & Plan (02/02/2025 4:23 PM EDT): Continue to follow-up with her therapist I will refer her to [facility] psych provider Polyarthralgia 02/02/2025 Assessment & Plan (02/02/2025 4:22 PM EDT): I will follow-up on her gabapentin to 400 mg 3 times a day, I advised to follow- up with PCP 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 We'll get OV notes sp hospital [...] no appointment has been made. Currently under /[facility] care to assist with SDOH needs. [...] MH services received in the past with [facility], currently she's not satisfied with [facility]. Pt opted for same-day appointments with [facility] (information given. Cheryl screened positive for SDOH [...] Patient to reach out to [facility] team as needed, and Patient to reach out to [facility] as needed Pt prefers to be self-referred for OP individual therapy and psychiatry to the [facility] programs. Pt was offered external referral; clinician informed about wait times and options to receive MH services through [facility] intake. Assessment & Plan (03/09/2024 3:06 PM [...] no appointment has been made. Currently under /[facility] care to assist with SDOH needs. [...] MH services received in the past with [facility], currently she's not satisfied with [facility]. Pt opted for same-day appointments with [...] Patient to reach out to [facility] team as needed, and Patient to reach out to [facility] as needed Pt prefers to be self-referred for OP individual therapy and psychiatry to the [facility] programs. Pt was offered external referral; clinician informed about wait times and options to receive MH services through [facility] intake. Assessment & Plan (10/26/2023 10:38 AM EST): PLAN: Continue with current services (defined as services in the past 12 months) , Behavioral Health Integration Plan Patient Self Plan Patient to reach out to [facility] team as needed, Patient to engage in OP therapy , and Patient to follow-up with external team, clinician to reach our to current therapist for Cheryl at [facility] to support process of reconnecting with psych [...] stroke in 05/2024). Pt was self-referred to [facility] programs, but reports no appointment has been made. Currently under CM/[facility] care to assist with SDOH needs. [...] MH services received in the past with [facility], currently she's not satisfied with [facility]. Pt opted for same-day appointments with [facility] (information given. Cheryl screened positive for SDOH [...] Patient to reach out to [facility] team as needed, and Patient to reach out to [facility] as needed Pt prefers to be self-referred for OP individual therapy and psychiatry to the [facility] programs. Pt was offered external referral; clinician informed about wait times and options to receive MH services through [facility] intake. Resolved Problems Problem Noted Date Diagnosed [...] AM EST): Wants to fu with [facility] Dr Jj instead of [facility], referral sent. [...] FU w PCP in 1m Cerebrovascular disease 04/09/20162 Severe obesity (CMS/HCC) 04/09/2016 Steatosis of liver 04/09/2016 3 Encounters Date Type Department Care Team Description 09/30/2025 Orders Only GENERIC EXTERNAL DATA DEPARTMENT Provider, Generic External Data 09/25/2025 Refill [facility] [address] [place] [phone] Rosmery Jacob RN Polyarthralgia 09/25/2025 Refill [facility] [address] [place] [address] Aliza Paul DO 09/20/2025 Patient Outreach [facility] [address] [place] [phone] Aliza Paul DO 09/19/2025 Orders Only [facility] External Provider, [facility] 09/19/2025 Telephone [facility] [address] [place] [phone] Aliza Paul DO ER Follow-up 09/18/2025 Orders Only GENERIC EXTERNAL DATA DEPARTMENT Provider, Generic External Data 09/17/2025 Orders Only GENERIC EXTERNAL DATA DEPARTMENT Provider, Generic External Data 09/06/2025 Outside Procedure [facility] OPT[facility] [address] [place] [phone] Sylvain, Jayashree, OD Presbyopia (Primary Dx) 09/04/2025 1:45 PM EDT Office Visit [facility] [address] [place] [address] Sylvain, Jayashree, OD Hyperopia of both eyes with astigmatism and presbyopia (Primary Dx) 08/25/2025 Refill [facility] [address] [place] [address] Aliza Paul DO Polyarthralgia 08/24/2025 Telephone [facility] [address] [place] [address] Aliza Paul DO Chart Prep 08/23/2025 Patient Outreach [facility] [address] [place] [phone] Aliza Paul DO 08/21/2025 Telephone [facility] [address] [place] [address] Aliza Paul DO Transition Of Care (Tcm) 08/20/2025 Orders Only GENERIC EXTERNAL DATA DEPARTMENT Provider, Generic External Data 08/20/[address] [facility] [address] [place] [address] Aliza Paul DO 08/17/[address] [facility] [address], [place] [address] Aliza Paul DO chartprep 08/13/[address] [facility] [address], [place] [address] Aliza Paul, Pre-visit Planning (Pre-visit planning - LVM ) 08/07/[address] [facility] [address] Aliza Paul DO Chart Prep 08/05/2025 Refill [facility] [place] [address] Aliza Paul DO Closed supracondylar fracture of right humerus with routine healing 08/03/2025 Refill [facility] [place] [address] Aliza Paul DO Muscle spasm 07/30/[address] [facility] [address] Aliza Paul DO Closed supracondylar fracture of right humerus with routine healing 07/30/[address] [facility] [address] [place], [place] [address] Aliza Paul DO Care Management (C3CM- initial assessment/enrollment. Not available.) 07/20/2025 Telephone [facility] [address] Aliza Paul DO Appointment Request 07/17/[address] [facility] [address] Aliza Paul DO PT1-Modified 07/16/[address] [facility] [address] [place] [address] Aliza Paul DO Transition Of Care (Tcm) (HDF- Scheduled ) 07/16/[address] [facility] [address] [place] [address] lAiza Paul, 07/14/2025 Refill [facility] [address] [place] [address] Aliza Paul DO 07/12/2025 Patient Outreach [facility] [address] [place] [address] Aliza Paul DO 07/10/2025 Patient Outreach [address] [address] Aliza Paul DO Care Coordination (CM/[facility] outreach) 07/07/2025 Refill [facility] [address] [place] [address] Aliza Paul DO 07/03/2025 Refill [facility] [address] [place] [address] Aliza Paul DO Polyarthralgia; Closed supracondylar fracture of right humerus with routine healing from Last 3 Months Immunizations Immunization Administration [...] Done Comments CT Colonography 1965 Colonoscopy 1965 Dental Oral Exam 1965 Dental Prophylaxis 1965 Dental X-Ray: Bitewings 1965 FIT DNA/Cologuard 1965 FOBT 1965 Sigmoidoscopy 1965 Alcohol/Substance Use [...] 2 - PCV) 12/16/2022 12/16/2021 Colorectal Cancer Screening 02/05/2023 FIT 02/05/2023 02/05/2022 Depression Monitoring 02/20/2025 08/22/2024, 024 SDOH Screening [...] Diagnosis Comments CBC WITH AUTO DIFFERENTIAL Routine 09/30/2025 3:[address] HEAD WO CONTRAST Routine 09/19/2025 4 [...] Maintenance Results * (ABNORMAL) CBC auto differential (09/30/2025 3:17 PM EST) Only the most recent of3 resultswithin the time period is included. White Blood Count 7.1 4.8 - 10.8 X10*3/uL [facility] Red Blood Count 5.17 4.20 - 5.50 X10*6/uL [facility] Hemoglobin 14.3 12.0 - 16.0 g/dl [facility] Hematocrit 42.7 37.0 - 47.0 % [facility] Mean Corpuscular Volume 82.6 80.0 - 98.0 fL [facility] Mean Corpuscular Hemoglobin 27.7 27.0 - 33.0 pg [facility] Mean Corpuscular HGB Conc 33.5 31.0 - 35.0 g/dl [facility] Red Cell Distribution Width 12.7 11.0 - 16.0 % [facility] Platelet Count 310 160 - 400 X10*3/uL [facility] Mean Platelet Volume 9.4 9.4 - 12.3 fL [facility] Neutrophils Percent Auto 46.8 45 - 73 % [facility] Imm Gran Pct Auto 0.1 0.0 - 0.4 % [facility] Lymphocytes Percent Auto 38.7 20 - 40 % [facility] Monocytes Percent Auto 9.1 2 - 11 % [facility] Eosinophils Percent Auto 4.6(H) 0 - 4 % [facility] Basophils Percent Auto 0.7 0 - 2 % [facility] NRBC Pct Auto 0.0 0.0 - 0.2 /100WBC [facility] Neutrophils Absolute Auto 3.3 2.0 - 8.3 x10*3/uL [facility] Imm Gran Abs Auto 0.01 0.00 - 0.03 X10*3/uL [facility] Lymphocytes Absolute Auto 2.8 1.2 - 4.9 X10*3/uL [facility] Monocytes Absolute Auto 0.7 0.1 - 1.2 X10*3/uL [facility] Eosinophils Absolute Auto 0.3 0.0 - 0.4 X10*3/uL [facility] Basophils Absolute Auto 0.1 0.0 - 0.2 X10*3/uL [facility] NRBC Abs Auto 0.000 0.0 - 0.012 X10*3/uL [facility] 09/30/2025 3:17 PM EST 09/30/2025 3:20 PM EST us Generic External Data Provider LAB BLOOD ORDERAB LES Final Result Performing Organization Address City/State/[facility] Co de Phone Number [facility] [address] [place] [phone] * CT Head w/o Contrast (09/19/2025 4:21 PM EST) Anatomical Region Laterality Modality Head, Neck Computed Tomogra phy 09/19/2025 4:21 PM EST Narrative 09/19/2025 5:24 PM EST [address] [address] [address] Scan Report Signed Patient: Cheryl Garcia MR#: [id number] 0 : 1965 Acct:[id number] Age/Sex: 59 / F ADM Date: 09/19/25 Loc: HO.ED Attending Dr: Ordering Physician: Jus Rodriguez MD Date of Service: 09/19/25 Procedure(s): CT head/brain wo IV con Accession Number(s): [id number] cc: Jus Rodriguez MD; Aliza Paul DO Report Number: [id number]: Total DLP = 580.00 mGy-cm Reason for [...] by: Derek Casillas MD 09/19/2025 05:21 PM [facility] Dictated By: Derek Casillas MD Signed By: <Electronically signed by Derek Casillas MD in OV> 09/19/25 1721 DD/ 1621 TD/TT: 09/19/25 1628 Guide Foreign Tour: Procedure Note Donotuseinterpreter, Image - 09/19/[address] [place] [address] [address] Scan Report Signed Patient: Cheryl Garcia AMR#: [id number] 0 : 1965Acct:[id number] Age/Sex: 59 / FADM Date: 09/19/25 Loc: HO.ED Attending Dr: Ordering Physician: Jus Rodriguez MD Date of Service: 09/19/25 Procedure(s): CT head/brain wo IV con Accession Number(s): [id number] cc: Jus Rodriguez MD; Aliza Paul DO Report Number: [id number]: Total DLP = 580.00 mGy-cm Reason for [...] by: Derek Casillas MD 09/19/2025 05:21 PM [facility] Dictated By: Derek Casillas MD Signed By: <Electronically signed by Derek Casillas MD in OV> 09/19/25 1721 DD/ 1621 TD/TT: 09/19/25 1628 Guide Foreign Tour: [facility] External Provider IM CT PROCEDURES Final Result * (ABNORMAL) Urinalysis, Complete, with Reflex to Culture (09/18/2025 2:31 AM EST) Only the most recent of2 resultswithin the time period is included. Color Urine Dark Yellow [facility] Appearance Urine Turbid [facility] PH 5.0 5.0 - 9.0 [facility] Glucose Urine UA Negative Negative mg/dL [facility] Urine Blood Large (3+)(A) Negative [facility] Specific [place] - Urine >=1.030(H) 1.005 - 1.025 [facility] Urine Protein 100 (2+)(A) Neg-Trace mg/dL [facility] Urine Ketones Trace Negative mg/dL [facility] Nitrite Urine Negative Negative [facility] Leukocyte Esterase Urine Moderate (2+)(A) Negative [facility] RBC Urine 6-10(A) 0 - 2 /HPF [facility] Urine WBC >50(A) 0 - 5 /HPF [facility] Urine Squamous Epithelial Cell 3-5 0 - 2 /HPF [facility] Urine Bacteria 1+ None Seen [facility] Hyaline Casts, Urine 3-5 0 - 2 /LPF [facility] 09/18/2025 2:31 AM EST 09/18/2025 2:39 AM EST Narrative [facility] - 09/18/2025 3:42 AM EST Urine, [place] us Generic External Data Provider LAB URINE ORDERAB LES Final Result Performing Organization Address City/State/[facility] Co de Phone Number [facility] [address] [place] [phone] * (ABNORMAL) Urinalysis w/reflex microscopic (09/18/2025 2:31 AM EST) Color Urine Dark Yellow [facility] Appearance Urine Turbid [facility] PH 5.0 5.0 - 9.0 [facility] Glucose Urine UA Negative Negative mg/dL [facility] Urine Blood Large (3+)(A) Negative [facility] Specific [place] - Urine >=1.030(H) 1.005 - 1.025 [facility] Urine Protein 100 (2+)(A) Neg-Trace mg/dL [facility] Urine Ketones Trace Negative mg/dL [facility] Nitrite Urine Negative Negative [facility] Leukocyte Esterase Urine Moderate (2+)(A) Negative [facility] 09/18/2025 2:31 AM EST 09/18/2025 2:39 AM EST Narrative [facility] - 09/18/2025 2:45 AM EST Urine, [place] Port Generic External Data Provider LAB URINE ORDERAB LES Final Result Performing Organization Address [facility] de Phone Number [facility] [address] [place] [phone] * Culture, Urine, Routine (09/18/2025 2:31 AM EST) Only the most recent of2 resultswithin the time period is included. Urine Urine specimen from urinary conduit / Unknown 09/18/2025 2:31 AM EST 09/18/2025 3:42 AM EST Comment:Urine Cath [facility] - 09/21/2025 7:25 AM EST Escherichia coli Quant > 100,000 cfu/mL Escherichia coli: Ampicillin 4(S) Escherichia coli: Cefazolin (Urine) <=1(S) Escherichia coli: Cefepime <=0.12(S) Escherichia coli: Ceftriaxone <=0.25(S) Escherichia coli: Ciprofloxacin <=0.06(S) Escherichia coli: Gentamicin <=1(S) Escherichia coli: Nitrofurantoin <=16(S) Escherichia coli: Trimethoprim/Sulfamethoxazole <=20(S) Specimen Source: Urine Catheterized Generic External Data Provider LAB MICROBIOLOGY - GENERAL ORDERABLES Final Result Performing Organization Address [facility] Co de Phone Number [facility] [address] [place] [phone] * (ABNORMAL) Comprehensive Metabolic Panel (09/17/2025 11:37 PM EST) Sodium 147(H) 135 - 145 mmol/L [facility] Potassium 3.9 3.3 - 5.1 mmol/L [facility] Chloride 112(H) 96 - 108 mmol/L [facility] Carbon Dioxide 25 22 - 29 mmol/L [facility] Anion Gap 14 12 - 20 [facility] Urea Nitrogen (BUN) 19(H) 9 - 16 mg/dL [facility] Creatinine, Serum 0.75 0.5 - 1.4 mg/dL [facility] Creatinine Clr Calc Pharmacy 85.3 [facility] Comment:Provided height and weight: 160.02 cm,88.6 kg.eGFR (calculated from the MDRD study equation) and eCrCl(calculated from the Cockcroft-Gault equation) are based ondifferent parameters and may not yield comparable results.If eCrCl result is absurd, please check patient'sheight/weight. Estimated Glomerular Filt Rate >60 [facility] Comment:Chronic Kidney Disea se: Estimated GFR < 60 mL/min/1.08v5Lxnxxq Kidney Disease: Estimated GFR < 15 mL/min/1.73m2 Glucose 108 60 - 115 mg/dL [facility] Calcium 9.0 8.4 - 10.2 mg/dL [facility] Bilirubin, Total 0.2 0.0 - 1.0 mg/dL [facility] Aspartate Amino Transferase 14 5 - 31 U/L [facility] Alanine Aminotransferase 13 0 - 31 U/L [facility] Total Protein 6.1(L) 6.5 - 8.0 g/dL [facility] Albumin Level 3.8 3.5 - 5.0 g/dL [facility] Alkaline Phosphatase 71 39 - 117 U/L [facility] 09/17/2025 11:3 7 PM EST 09/17/2025 11:41 PM EST us Generic External Data Provider LAB BLOOD ORDERAB LES Final Result [facility] [address] [place] [phone] * (ABNORMAL) Basic Metabolic Panel (08/20/2025 7:42 PM EDT) Sodium 144 135 - 145 mmol/L [facility] Potassium 3.7 3.3 - 5.1 mmol/L [facility] Chloride 114(H) 96 - 108 mmol/L [facility] Carbon Dioxide 23 22 - 29 mmol/L [facility] Anion Gap 11(L) 12 - 20 [facility] Urea Nitrogen (BUN) 20(H) 9 - 16 mg/dL [facility] Creatinine, Serum 0.71 0.5 - 1.4 mg/dL [facility] Creatinine Clr Calc Pharmacy 90.7 [facility] Comment:Provided height and weight: 160.02 cm,89.8 kg.eGFR (calculated from the MDRD study equation) and eCrCl(calculated from the Cockcroft-Gault equation) are based ondifferent parameters and may not yield comparable results.If eCrCl result is absurd, please check patient'sheight/weight. Estimated Glomerular Filt Rate >60 [facility] Comment:Chronic Kidney Disea se: Estimated GFR < 60 mL/min/1.87v3Trmfqe Kidney Disease: Estimated GFR < 15 mL/min/1.73m2 Glucose 102 60 - 115 mg/dL [facility] Calcium 8.5 8.4 - 10.2 mg/dL [facility] 08/20/2025 7:42 PM EDT 08/20/2025 7:44 PM EDT us Generic External Data Provider LAB BLOOD ORDERAB LES Final Result [facility] [address] [place] [phone] * (ABNORMAL) Lipid Panel, Standard (04/20/2025 12:48 PM EDT) Triglycerides 72 <150 mg/dL [facility] Comment:Desirable Triglyceri de: less than 150 mg/dLBorderline High Triglyceride 150-199 mg/dLHigh Triglyceride: 200-499 mg/dLVery High Triglyceride: greater than or equal to 5OO mg/dL Cholesterol 164 <200 mg/dL [facility] Comment:Desirable Cholestero l: less than 200 mg/dLBorderline High Cholesterol: 200-239 mg/dLHigh Cholesterol: greater than 239 mg/dL LDL Cholesterol Calculated 105(H) <100 mg/dL [facility] Comment:Desirable LDL: less than 100 mg/dLNear Optimal/Above Optimal LDL: 110- 129 mg/dLBorderline High LDL: 130-159 mg/dLHigh LDL: 160-189 mg/dLVery High LDL: greater than or equal to 190 mg/dL HDL Cholesterol 45 >40 mg/dL [facility] Comment:Desirable HDL: great er than 40 mg/dL Note: This HDL assay may give artificially low results in patients with liver disease. Blood Venous blood specimen / Unknown 04/20/2025 12:48 PM EDT 04/20/2025 4:07 PM EDT us Aliza Paul DO LAB BLOOD ORDERABLES Final R esult [facility] [address] [place] [phone] * HEPATITIS C AB W/REFL TO [...] a test for HCV RNA (test code 67534) is suggested. For additional information please refer to http://education.[employer]/faq/UAH38y0 (This link is being provided for informational/ educational purposes only.) 01/28/2022 10:3 3 AM EDT Aliza Goldsmithmalu DO HISTORICAL/NON ORDERABLE LAB S Final Result Performing Organization Address [facility] de Phone Number [facility] [address] [place] [address], * HIV 1/2 ANTIGEN/ANTIBODY,FOURTH GENERATION W/RFL (01/28/2022 10:33 AM EDT) Pathologist [facility] HIV-1/2 ANTIGEN AND ANTIBODIES, 4TH GENERATION W/ REFLEX NON-REACT ERNESTO NON-REACT ERNESTO [facility] Comment: HIV-1 antigen and HIV-1/HIV-2 [...] purpose. For additional information please refer to http://education.[employer]/faq/XDD537 (This link is being provided for informational/ educational purposes only.) The performance of this assay has not been clinically validated in patients less than 2 years old. 01/28/2022 10:3 3 AM EDT Aliza Paul DO LAB BLOOD ORDERABLES Final R esult Performing Organization Address [facility] de Phone Number [facility] [address] [place] [address], * HPV E6/E7 RFLX ROMA 16 18/45 (12/10/2017 12:51 PM EST) Pathologist [facility] ADDITIONAL TESTING Not indicated () [facility] Comment: Test Performed by Karel Silva, [employer] [facility], [address] [place] [address] Ulises Silva M.D., Ph.D., Director of Laboratories , [place] [id number] HPV 16 RNA Test not performed [facility] HPV 18/45 RNA Test not performed [facility] HPV mRNA E6/E7 Not Detected NOT DETECTED [facility] Comment: This test was performed using the APTIMA(R) HPV Assay ([employer] This assay detects E6/E7 viral messenger RNA (mRNA) from 14 high-risk HPV types (16,18,31,33,35,39,45,51, 52,56,58,59,66,68). For additional information please refer to: http://education.[employer]/faq/GFY949h9 (This link is being provided for informational/ educational purposes only.) Please note: Effective 07/20/2016, HPV testing will be performed using [employer]'s APTIMA test which targets mRNA. Detecting mRNA instead of DNA, as in older methods, offers significant improvements in specificity. 12/10/2017 12:5 1 PM EST Aliza Paul DO HISTORICAL/NON ORDERABLE LAB S Final Result [facility] [address] from Last 3 Months or Most Recently Relevant to Health Maintenance Insurance [facility] C3 DENTAL-[facility] MEDICAID STAND ADULT Care Teams Bail Attacher Relationship Specialty Start Date End Date Aliza Paul DO [address] [place] [address] PCP - General Family Medicine 02/23/12 Lesley Ingram Community Health Worker 05/17/24 Rocio Ingram, RICHARDSON [address] [place] [id number] Registered Nurse Family Medicine 04/19/25 Kathrine Blank 04/19/25 [facility] 05/29/25
[2025-09-30 15:41] LABS: Alanine Aminotransferase 13 U/L (0-31); Albumin Level 4.1 g/dL (3.5-5.0); Alkaline Phosphatase 74 U/L (39-117); Anion Gap 14 (12-20); Aspartate Amino Transferase 16 U/L (5-31); Blood Urea Nitrogen 24 mg/dL (9-16); Calcium 9.1 mg/dL (8.4-10.2); Carbon Dioxide 20 mmol/L (22-29); Chloride 111 mmol/L (96-108); Creatinine Clr Calc Pharmacy 76.3; Estimated Glomerular Filt Rate > 60; Magnesium 1.9 mg/dL (1.6-2.6); Potassium 4.0 mmol/L (3.3-5.1); Sodium 141 mmol/L (135-145); Total Protein 6.7 g/dL (6.5-8.0)
[2025-09-30 15:47] LABS: Appearance Urine Turbid; Glucose Urine UA Negative (Negative); PH 5.5 (5.0-9.0); Specific Gravity - Urine 1.025 (1.005-1.025); UMIC TRIGGER UACC YES
[2025-09-30 15:48] LABS: Troponin-I High Sensitivity < 2.7 ng/L (<3.5-17.0)
[2025-09-30 15:51] VITALS: BP 117/75; PULSE 64; RESP 16; TEMP 36.4; O2SAT 95
[2025-09-30 15:56] LABS: Cannabinoid Screen Urine POSITIVE (Not Detect)
[2025-09-30 16:00] LABS: Resp Syncy Virus RNA Qual PCR NEGATIVE (Negative); SARS COV2 PCR INHOUSE NEGATIVE (Negative)
[2025-09-30 16:02] LABS: UACC Culture Trigger YES
--- NOTE | 2025-09-30 16:14 | ED.WEAKNESS ---
HPI - Weakness General Chief complaint: Weakness Stated complaint: weakness Time Seen by Provider: 09/30/25 15:47 History of Present Illness ED Provider: sultana VELASCO Narrative: Author / Clinician: Jus Rodriguez MD Chief Complaint Severe pain along the right flank/side since yesterday, described by patient as a possible pulled muscle with associated ?bumps.? History of Present Illness The patient presents to the Emergency Department reporting sudden onset of severe pain along the right lateral trunk beginning yesterday. She believes she ?pulled a muscle? in that area and notes the presence of ?bumps? on the affected side. Pain is described as ?real, real bad.? Denies any fall or other traumatic injury. Reports feeling ?very tired? and ?very weak.? Endorses having had a fever ?the other day,? but denies current fever. No fall. No injuries. She currently has a Quinonez catheter in place. Review of Systems ? Constitutional: Positive for fatigue, weakness. ? Musculoskeletal: Positive for right flank/side pain, patient suspects muscle strain. ? Integumentary: Reports ?bumps? on right side. ? Constitutional (Fever): Reports fever earlier this week; denies current fever. ? Trauma: Denies fall or other injuries. All other systems not discussed during the encounter. Past Medical History ? Hypertension ? Anxiety Medications Patient states she takes ?a lot of medications? for hypertension and anxiety; specific names and dosages were not provided. Physical Exam: - General: Patient awake and able to converse; appears tired. - : Quinonez catheter in place. - Musculoskeletal: Patient describes pain along the right lateral trunk/flank. No additional findings documented. Related Data Home Medications ?Medication ?Instructions ?Recorded ?Confirmed fluticasone propionate 50 2 spray intranasal DAILY PRN 11/18/21 07/11/25 mcg/actuation nasal Allergy Symptoms spray,suspension acetaminophen 650 mg 650 mg PO Q12H PRN pain 07/20/24 07/11/25 tablet,extended release albuterol sulfate 90 mcg/actuation 2 puff inhalation Q4-6H PRN 07/20/24 07/11/25 aerosol inhaler Shortness Of Breath Or Wheezing baclofen 10 mg tablet 10 mg PO TID PRN muscle spasm 07/20/24 07/11/25 buspirone 10 mg tablet 10 mg BID 07/20/24 07/11/25 cholecalciferol (vitamin D3) 50 50 mcg DAILY 07/20/24 07/11/25 mcg (2,000 unit) capsule hydroxyzine HCl 50 mg tablet 50 mg PO Q6H PRN anxiety 07/20/24 07/11/25 venlafaxine 75 mg capsule,extended 75 mg PO DAILY 07/20/24 07/11/25 release 24 hr aripiprazole 2 mg tablet 2 mg PO DAILY 11/23/24 07/11/25 lisinopril 10 mg tablet 10 mg PO DAILY 11/23/24 07/11/25 cetirizine 10 mg tablet 10 mg PO DAILY 07/11/25 07/11/25 gabapentin 400 mg capsule 400 mg PO TID 07/11/25 07/11/25 naproxen 500 mg tablet 500 mg PO BIDWM pain 07/11/25 07/11/25 Held on 07/13/25. Instructions: Resume on 07/18/25. Previous Rx's ?Medication ?Instructions ?Recorded ipratropium 0.5 mg-albuterol 3 mg 3 ml inhalation RQ4H WHILE AWAKE 11/25/24 (2.5 mg base)/3 mL nebulization PRN Shortness Of Breath/Wheezing soln #90 mL methenamine hippurate 1 gram tablet 1 g PO DAILY 90 days #90 tabs 12/14/24 ascorbic acid (vitamin C) 1,000 mg 1,000 mg PO DAILY 90 days #90 tabs 07/10/25 tablet amlodipine 2.5 mg tablet 2.5 mg PO DAILY #90 tabs 07/13/25 cefuroxime axetil 500 mg tablet 500 mg PO Q12H #11 tabs 07/13/25 methylprednisolone 4 mg tablets in 4 mg PO DAILY #21 ea 08/16/25 a dose pack (Medrol (Shlomo)) cephalexin 500 mg capsule 500 mg PO QID #28 caps 08/20/25 cefuroxime axetil 500 mg tablet 500 mg PO BID #14 tabs 09/18/25 cefadroxil 500 mg capsule 500 mg PO BID 7 days #14 caps 09/30/25 Allergies Allergy/AdvReac Type Severity Reaction Status Date / Time No Known Allergies Allergy Verified 09/30/25 15:06 [facility] Past Medical History Medical History Hyperthyroidism Hemiparesis affecting left side as late effect of stroke Hypotonic bladder H/O urinary retention GERD (gastroesophageal reflux disease) Hyperlipidemia HTN (hypertension) PFO (patent foramen ovale) Patellofemoral arthrosis Knee derangement Surgical History History of surgery Social History Social History Household Members: Other Household Members Other:: OUTPATIENT PHLEBOTOMIST Housing: Apartment Do you presently have visiting nurse or other home services: Yes (OUTPATIENT PHLEBOTOMIST lives with pt, VNA 1x/week.) Unable to assess alcohol history related to: Unknown Alcohol intake: current Alcohol intake frequency: does not drink Alcohol type: beer Patient Tobacco Use Status: Never used Tobacco Smoked in Last 30 Days: No Use of substances other than those prescribed or required for medical reasons: Unknown Substance Use Type: Marijuana Advance Directives: Yes Advance Directives on File: Yes Advance Directives Date on File: 05/30/25 service: No Current occupational status: retired and disabled 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 Does not appear distressed from pain Head: Atraumatic Eyes: Anicteric, Normal conjunctiva. ENT: Moist mucosa, no pallor. ? Neck: Supple. Skin: ?No observable rash or bruising on exposed or examined skin Respiratory: Breathing comfortably, No distress.Clear to auscultation bilaterally, symmetric chest expansion, No wheeze, rales, ronchi. Cardiovascular: Regular rate and rhythm. No murmurs or rub. Well perfused periphery, warm extremities. No edema. ? Abdominal: No focal tenderness. Soft, no objective distension. No palpable masses or obvious organomegaly. ?No guarding, no rebound tenderness or other peritoneal findings. : Smells of urine positive right flank tenderness Neuro: Alert. Gross movement of all extremities intact. ? Psych: Calm. Cooperative. MSK: No grossly visible deformity. Vital signs: See flowsheet Vital Signs: Vital Signs: Last Vital Signs Temp 97.6 F 09/30/25 18:51 Pulse 60 09/30/25 18:51 Resp 16 09/30/25 18:51 BP 137/84 09/30/25 18:51 Pulse Ox 97 09/30/25 18:51 O2 Del Method Room Air 09/30/25 18:51 BMI result Body Mass Index 31.7 Medications Administered Discontinued Medications Generic Name Dose Route Start Last Admin Trade Name Freq PRN Reason Stop Dose Admin Ceftriaxone Sodium 2 gm/ 50 mls @ 100 mls/hr 09/30/25 16:16 09/30/25 17:00 Sodium Chloride IV 09/30/25 16:45 Infused ONCE ONE Infusion Medical Decision Making Medical Decision Making MDM Narrative: Medical Decision Making: [age] female with right flank pain atraumatic. No fever no hemodynamic instability. No bruising but she is tender in the right flank. She has frequent UTIs E coli pansensitive and once again has leukocytes in the urine with nitrates. CT without acute pathology Working diagnosis pyelonephritis given the indwelling Quinonez acute flank pain symptoms and urinalysis Preliminary Favored Differential Diagnosis: Musculoskeletal pain, renal colic, pyelonephritis among additional considered etiologies Testing Interpreted Independently: ?See below for details Radiology or Lab testing Results Reviewed: ?See below for details Consults: ?See below for details Independent Historians/External Chart Reviews: ?See below for details Social Determinants of Health Impacting MDM/Planning: ?See below for details Lab Data 09/30/25 15:17 09/30/25 15:17 Labs: Lab Results 09/30/25 09/30/25 Range/Units 15:17 15:39 WBC 7.1 (4.8-10.8) X10*3/uL RBC 5.17 (4.20-5.50) X10*6/uL Hgb 14.3 (12.0-16.0) g/dl Hct 42.7 (37.0-47.0) % MCV 82.6 (80.0-98.0) fL MCH 27.7 (27.0-33.0) pg MCHC 33.5 (31.0-35.0) g/dl RDW 12.7 (11.0-16.0) % Plt Count 310 (160-400) X10*3/uL MPV 9.4 (9.4-12.3) fL Immature Gran % (Auto) 0.1 (0.0-0.4) % Neut % (Auto) 46.8 (45-73) % Lymph % (Auto) 38.7 (20-40) % Daniels % (Auto) 9.1 (2-11) % Eos % (Auto) 4.6 H (0-4) % Baso % (Auto) 0.7 (0-2) % Lymph # (Auto) 2.8 (1.2-4.9) X10*3/uL Daniels # (Auto) 0.7 (0.1-1.2) X10*3/uL Eos # (Auto) 0.3 (0.0-0.4) X10*3/uL Baso # (Auto) 0.1 (0.0-0.2) X10*3/uL Abs Immat Gran (auto) 0.01 (0.00-0.03) X10*3/uL Absolute Neuts (auto) 3.3 (2.0-8.3) x10*3/uL Absolute Nucleated RBC 0.000 (0.0-0.012) X10*3/uL Nucleated RBC % (auto) 0.0 (0.0-0.2) /100WBC Sodium 141 (135-145) mmol/L Potassium 4.0 (3.3-5.1) mmol/L Chloride 111 H (96-108) mmol/L Carbon Dioxide 20 L (22-29) mmol/L Anion Gap 14 (12-20) BUN 24 H (9-16) mg/dL Creatinine 0.80 (0.5-1.4) mg/dL Estim Creat Clear Calc 76.3 Estimated GFR > 60 Random Glucose 110 (60-115) mg/dL Calcium 9.1 (8.4-10.2) mg/dL Magnesium 1.9 (1.6-2.6) mg/dL Total Bilirubin 0.4 (0.0-1.0) mg/dL AST 16 (5-31) U/L ALT 13 (0-31) U/L Alkaline Phosphatase 74 (39-117) U/L Troponin I High Sens < 2.7 (<3.5-17.0) ng/L Total Protein 6.7 (6.5-8.0) g/dL Albumin 4.1 (3.5-5.0) g/dL Urine Color Yellow Urine Appearance Turbid Urine pH 5.5 (5.0-9.0) Ur Specific [place] 1.025 (1.005-1.025) Urine Protein 30 (1+) H (Neg-Trace) mg/dL Urine Glucose (UA) Negative (Negative) mg/dL Urine Ketones Negative (Negative) mg/dL Urine Blood Small (1+) H (Negative) Urine Nitrite Positive H (Negative) Ur Leukocyte Esterase Moderate (2+) H (Negative) Urine RBC 3-5 H (0-2) /HPF Urine WBC >50 H (0-5) /HPF Ur Squamous Epith Cells 3-5 (0-2) /HPF Urine Bacteria 2+ (None Seen) Hyaline Casts 0-2 (0-2) /LPF Urine Yeast Present Urine Opiates Screen Not Detected (Not Detect) Ur Buprenorphine Scrn Not Detected (Not Detect) ng/mL Ur Oxycodone Screen Not Detected (Not Detect) ng/mL Urine Methadone Screen Not Detected (Not Detect) ng/mL Urine Fentanyl Screen Not Detected (Not Detect) Ur Barbiturates Screen Not Detected (Not Detect) Ur Phencyclidine Scrn Not Detected (Not Detect) Ur Amphetamines Screen Not Detected (Not Detect) U Benzodiazepines Scrn Not Detected (Not Detect) Urine Cocaine Screen POSITIVE H (Not Detect) U Marijuana (THC) Screen POSITIVE H (Not Detect) Ethyl Alcohol < 10 mg/dL Influenza Type A (PCR) NEGATIVE (Negative) Influenza Type B (PCR) NEGATIVE (Negative) RSV RNA Qual (PCR) NEGATIVE (Negative) SARS-CoV-2 RNA (RT-PCR) NEGATIVE (Negative) Discharge Plan Discharge Clinical Impression: Pyelonephritis Patient Disposition: Home, Self-Care Instructions: Kidney Infection (ED) Additional Instructions: You were evaluated in the emergency department for your right flank plain without injury. CT did not show any significant or emergent findings. Urinalysis does look infected previous growth has shown susceptible E coli bacteria so we will send you home on oral antibiotics. In the emergency department you received 2 g of ceftriaxone and your lab work was reassuring Prescriptions: New cefadroxil 500 mg capsule 500 mg PO BID 7 Days Qty: 14 0RF No Action ascorbic acid (vitamin C) 1,000 mg tablet 1,000 mg PO DAILY 90 Days Qty: 90 1RF venlafaxine 75 mg capsule,extended release 24hr 75 mg PO DAILY hydroxyzine HCl 50 mg tablet 50 mg PO Q6H PRN (Reason: anxiety) acetaminophen 650 mg tablet extended release 650 mg PO Q12H PRN (Reason: pain) buspirone 10 mg tablet 10 mg BID cholecalciferol (vitamin D3) 50 mcg (2,000 unit) capsule 50 mcg DAILY baclofen 10 mg tablet 10 mg PO TID PRN (Reason: muscle spasm) albuterol sulfate 90 mcg/actuation Hfa Aerosol Inhaler 2 puff INHALATION Q4-6H PRN (Reason: Shortness Of Breath Or Wheezing) lisinopril 10 mg tablet 10 mg PO DAILY aripiprazole 2 mg tablet 2 mg PO DAILY ipratropium-albuterol 0.5 mg-3 mg(2.5 mg base)/3 mL Solution For Nebulization 3 ml inhalation RQ4H WHILE AWAKE PRN (Reason: Shortness Of Breath/Wheezing) Qty: 90 0RF methylprednisolone [Medrol (Shlomo)] 4 mg tablets,dose pack 4 mg PO DAILY Qty: 21 0RF Rx Instructions: Day 1: 24 mg on day 1 administered as 8 mg before breakfast, 4 mg after lunch, 4 mg after supper, and 8 mg at bedtime or 24 mg as a single dose or divided into 2 or 3 doses upon initiation. Day 2: 20 mg on day 2 administered as 4 mg before breakfast, 4 mg after lunch, 4 mg after supper, and 8 mg at bedtime. Day 3: 16 mg on day 3 administered as 4 mg before breakfast, 4 mg after lunch, 4 mg after supper, and 4 mg at bedtime. Day 4: 12 mg on day 4 administered as 4 mg before breakfast, 4 mg after lunch, and 4 mg at bedtime. Day 5: 8 mg on day 5 administered as 4 mg before breakfast and 4 mg at bedtime. Day 6: 4 mg on day 6 administered as 4 mg before breakfast. cetirizine 10 mg tablet 10 mg PO DAILY gabapentin 400 mg capsule 400 mg PO TID naproxen 500 mg tablet 500 mg PO BIDWM amlodipine 2.5 mg Tablet 2.5 mg PO DAILY Qty: 90 0RF Protocol: Hold for SBP< HOLD for SBP < : 90 cefuroxime axetil 500 mg tablet 500 mg PO Q12H Qty: 11 0RF cephalexin 500 mg capsule 500 mg PO QID Qty: 28 0RF cefuroxime axetil 500 mg tablet 500 mg PO BID Qty: 14 0RF fluticasone propionate 50 mcg/actuation spray,suspension 2 spray intranasal DAILY PRN (Reason: Allergy Symptoms) methenamine hippurate 1 gram tablet 1 g PO DAILY 90 Days Qty: 90 1RF Interventions: ED Discharge Assessment Last Done: 09/30/25 18:51 Discharge Date/Time: 09/30/25 18:51 Print Language: [place]an
[2025-09-30 17:36] VITALS: BP 137/84; PULSE 60; RESP 16; TEMP 36.4; O2SAT 97
[2025-09-30 18:51] VITALS: BP 137/84; PULSE 60; RESP 16; TEMP 36.4; O2SAT 97
== END 2025-09-30 18:51 | disposition home or self-care (01) ==
PROVIDERS: Physician Assistant Medical; Emergency Provider Emergency Medicine; PCP Family Medicine
DX: B37.49 Other urogenital candidiasis (principal); R53.1 Weakness; R00.1 Bradycardia, unspecified; R10.A3 Flank pain, bilateral; Z03.818 Encounter for observation for suspected exposure to other biological agents ruled out; Z79.899 Other long term (current) drug therapy; Z51.81 Encounter for therapeutic drug level monitoring
CPT/HCPCS: 71045; 74176; 80053; 80307; 81001; 83735; 84484; 85025; 87086; 87088; 87186; 87637; 93005; 96365; 99284; 99285; J0696

== ENCOUNTER → 2025-09-30 14:44 | Outpatient (BNV) | payer MEDICAID, SELFPAY | PROVIDERS: Emergency Provider Emergency Medicine; PCP Family Medicine; Visit Provider Radiology Diagnostic Radiology | DX: K57.30 Diverticulosis of large intestine without perforation or abscess without bleeding (principal); K80.20 Calculus of gallbladder without cholecystitis without obstruction; R53.1 Weakness | CPT/HCPCS: 71045; 74176 ==

== ENCOUNTER → 2025-09-30 14:44 | Outpatient (BNV) | payer MEDICAID, SELFPAY | PROVIDERS: Emergency Provider Emergency Medicine; PCP Family Medicine; Visit Provider Internal Medicine Cardiovascular Disease | DX: R00.1 Bradycardia, unspecified (principal) | CPT/HCPCS: 93010 ==